=== PATIENT | male | born 1950 | race Caucasian/White ===

== ENCOUNTER 2016-03-21 08:36 | Inpatient (IN) | payer OTHER ==
[~2016-03-21] VITALS: Ht 162.6 cm; Wt 117.9 kg
[~2016-03-21 08:36] MED LIST: BENZ100C PO; FAMO-63 PO; GLUCOPHAGE; LEVO750T31 PO; LISI10TA2 PO; MUPI15CR TP; PROAIR HFA8.5 GM INH
[2016-03-21] MEDS ORDERED: ACETAMINOPHEN 500 MG TABLET PO ONE (08:45)
[2016-03-21] MEDS ORDERED: IPRATRPIUM/ALBUTEROL 0.5/2.5MG 3 ML NEBU. NEB ONE (08:45)
--- NOTE | 2016-03-21 09:04 | RAD ---
Indication cough and shortness of breath. A single view of the chest was obtained. Comparison is made to an examination 10/12/2015. The heart and pulmonary vessels appear normal. There is some volume loss, most compatible with atelectasis, at the left lung base. Significant pleural fluid is not present. There is no pneumothorax. IMPRESSION: No definite acute process. Mild volume loss at the left lung base likely reflecting atelectasis or scar
[2016-03-21 09:43] LABS: BASO % 1 % (0-3); EOS % 0 % (0-3); HEMATOCRIT 39.6 % (39.0-53.0); HEMOGLOBIN 13.6 g/dL (13.0-17.5); LYMPH # 0.9 x10^3/uL (1.0-4.8); LYMPH % 19 % (24-48); MEAN CORPUSCULAR HEMOGLOBIN 33 pg (25-35); MEAN CORPUSCULAR HGB CONC 34 g/dL (31-37); MEAN CORPUSCULAR VOLUME 95 fL (79-100); MONO % 11 % (0-9); NEUT % 69 % (31-73); PLATELET COUNT 194 x10^3/uL (140-400); RED BLOOD COUNT 4.17 x10^6/uL (4.30-5.70); RED CELL DISTRIBUTION WIDTH 13.8 % (11.5-14.5); WHITE BLOOD COUNT 4.8 x10^3/uL (4.0-11.0)
--- NOTE | 2016-03-21 09:52 | PHYS DOC ---
Past Medical History Past Medical History: COPD, CVA, Diabetes-Type II, Hypertension, Other Additional Past Medical Histor: hiatal hernia, left sided weakness post cva, chronic leg pain/edema obesity Past Surgical History: Other Additional Past Surgical Histo: hernia repair, Alcohol Use: None Drug Use: None Adult General Chief Complaint Chief Complaint: FLU SYMPTOM HPI HPI 65-year-old chronically ill male presents with a one-week history of progressive cough congestion shortness of breath. He states his breathing seems to be much worse over the last 24 hours. He has coughed up whitish yellow sputum. He has had some subjective fevers. He denies any hemoptysis. He states he takes his medication when he can. [] Review of Systems Review of Systems Constitutional: Denies fever or chills [] Eyes: Denies change in visual acuity, redness, or eye pain [] HENT: Denies nasal congestion or sore throat [] Respiratory: Per history of present illness [] Cardiovascular: No additional information not addressed in HPI [] GI: Denies abdominal pain, nausea, vomiting, bloody stools or diarrhea [] : Denies dysuria or hematuria [] Musculoskeletal: Denies back pain or joint pain [] Integument: Denies rash or skin lesions [] Neurologic: Denies headache, focal weakness or sensory changes [] Endocrine: Denies polyuria or polydipsia [] Current Medications Current Medications Current Medications Medications (Trade) Dose Ordered Sig/Dru Start Time Stop Time Status Last Admin Dose Admin Acetaminophen 1000 mg 1,000 mg 1X ONCE 03/21/16 08:45 03/21/16 08:46 DC Albuterol/ Ipratropium (Duoneb) 3 ml 1X ONCE 03/21/16 08:45 03/21/16 08:46 DC 03/21/16 08:58 3 ML Sodium Chloride (Iv Sodium Chloride 0.9% 1000ml Bag) 1,000 ml @ 1,000 mls/hr 1X ONCE 03/21/16 10:15 03/21/16 11:14 Allergies Allergies Allergies Coded Allergies Type Severity Reaction Last Updated Verified Penicillins Allergy Intermediate 10/25/14 Yes bacitracin Allergy Intermediate 10/25/14 Yes chlorpheniramine Allergy Intermediate 10/25/14 Yes ciprofloxacin Allergy Intermediate 10/25/14 Yes codeine Allergy Intermediate 10/25/14 Yes dextromethorphan Allergy Intermediate 10/25/14 Yes felodipine Allergy Intermediate 10/25/14 Yes influenza virus vacc,specific Allergy Intermediate 10/25/14 Yes neomycin Allergy Intermediate 10/25/14 Yes phenylephrine Allergy Intermediate 10/25/14 Yes polymyxin B Allergy Intermediate 10/25/14 Yes sulfamethoxazole Allergy Intermediate 10/25/14 Yes trimethoprim Allergy Intermediate 10/25/14 Yes Physical Exam Physical Exam Constitutional: Well developed, well nourished, no acute distress, non-toxic appearance. [] HENT: Normocephalic, atraumatic, bilateral external ears normal, oropharynx moist, no oral exudates, nose normal. [] Eyes: PERRLA, EOMI, conjunctiva normal, no discharge. [] Neck: Normal range of motion, no tenderness, supple, no stridor. [] Cardiovascular:Heart rate regular rhythm, no murmur [] Lungs & Thorax: Bilateral breath sounds clear to auscultation [] Abdomen: Bowel sounds normal, soft, no tenderness, no masses, no pulsatile masses. [] Skin: Warm, dry, no erythema, no rash. [] Back: No tenderness, no CVA tenderness. [] Extremities: No tenderness, no cyanosis, no clubbing, ROM intact, no edema. [] Neurologic: Alert and oriented X 3, normal motor function, normal sensory function, no focal deficits noted. [] Psychologic: Affect normal, judgement normal, mood normal. [] Current Patient Data Vital Signs Vital Signs Date Time Temp Pulse Resp B/P Pulse Ox O2 Delivery O2 Flow Rate FiO2 03/21/16 08:58 92 Room Air 03/21/16 08:40 101.6 120 19 149/81 101.6 Lab Values Laboratory Tests Test 03/21/16 09:15 White Blood Count 4.8x10^3/uL (4.0-11.0) Red Blood Count 4.17x10^6/uL (4.30-5.70) L Hemoglobin 13.6g/dL (13.0-17.5) Hematocrit 39.6% (39.0-53.0) Mean Corpuscular Volume 95fL (79-100) Mean Corpuscular Hemoglobin 33pg (25-35) Mean Corpuscular Hemoglobin Concent 34g/dL (31-37) Red Cell Distribution Width 13.8% (11.5-14.5) Platelet Count 194x10^3/uL (140-400) Neutrophils (%) (Auto) 69% (31-73) Lymphocytes (%) (Auto) 19% (24-48) L Monocytes (%) (Auto) 11% (0-9) H Eosinophils (%) (Auto) 0% (0-3) Basophils (%) (Auto) 1% (0-3) Neutrophils # (Auto) 3.3x10^3uL (1.8-7.7) Lymphocytes # (Auto) 0.9x10^3/uL (1.0-4.8) L Monocytes # (Auto) 0.5x10^3/uL (0.0-1.1) Eosinophils # (Auto) 0.0x10^3/uL (0.0-0.7) Basophils # (Auto) 0.0x10^3/uL (0.0-0.2) Sodium Level 139mmol/L (136-145) Potassium Level 4.1mmol/L (3.5-5.1) Chloride Level 101mmol/L (98-107) Carbon Dioxide Level 27mmol/L (21-32) Anion Gap 11 (6-14) Blood Urea Nitrogen 11mg/dL (8-26) Creatinine 1.0mg/dL (0.7-1.3) Estimated GFR (Cockcroft-Gault) 74.5 Glucose Level 193mg/dL (70-99) H Calcium Level 8.8mg/dL (8.5-10.1) Troponin I Quantitative 0.022ng/mL (0.000-0.055) SZ-Vor-F-Type Natriuretic Peptide 101pg/mL (0-124) Laboratory Tests 03/21/16 09:15 Laboratory Tests 03/21/16 09:15 EKG EKG EKG: Sinus tachycardia rate of [address]-T changes [] Radiology/Procedures Radiology/Procedures [] Impressions: PROCEDURE: CHEST AP ONLY Indication cough and shortness of breath. A single view of the chest was obtained. Comparison is made to an examination 10/12/2015. The heart and pulmonary vessels appear normal. There is some volume loss, most compatible with atelectasis, at the left lung base. Significant pleural fluid is not present. There is no pneumothorax. IMPRESSION: No definite acute process. Mild volume loss at the left lung base likely reflecting atelectasis or scar Course & Med Decision Making Course & Med Decision Making Pertinent Labs and Imaging studies reviewed. (See chart for details) [ED course: Evaluation reveals a an acute on chronically ill male who has coughed nonstop since his arrival to the department. Initially he had some scattered wheezes throughout both lungs he was given a breathing treatment and this did help. He is had a total of 2 L of normal saline as clinically he appeared a bit dehydrated. He was afebrile on arrival. I Townsend in the patient 's best interest to be treated as an inpatient to further assess his breathing as well as his tachycardia. Of note, his troponin was slightly elevated I suspect that this is related mainly to a demand ischemia secondary to his tachycardia. We will trend while in the hospital.] Dragon Disclaimer Dragon Disclaimer This electronic medical record was generated, in whole or in part, using a voice recognition dictation system. Departure Departure Impression: Primary Impression: Bronchitis Additional Impression: Tachycardia Disposition: 09 ADMITTED INPATIENT Admitting Physician: Mark Butterfield Condition: IMPROVED Referrals: NO PCP (PCP) Problem Qualifiers JOÃO ARCE DO Mar 21, 2016 09:52
[2016-03-21 09:53] LABS: CALCIUM 8.8 mg/dL (8.5-10.1); GFR 74.5; POTASSIUM 4.1 mmol/L (3.5-5.1)
[2016-03-21] MEDS ORDERED: IV NORMAL SALINE 1000ML BAG 1,000 ML IV ONE (10:15)
[2016-03-21] MEDS ORDERED: CEFTRIAXONE 1GM IVPB FOR OMNI 50 ML IV ONE (10:30)
[2016-03-21] MEDS ORDERED: ONDANSETRON PF 4 MG/2 ML VIAL. IV PRN ×2 (10:30→14:15)
[2016-03-21] MEDS ORDERED: methylPREDNISolone SOD SUCC PF 125 MG/2 ML VIAL. IV ONE (10:30)
[2016-03-21 11:08] LABS: OBC FLU VALID
--- NOTE | 2016-03-21 11:59 | ACF ---
Admission Forms Criteria TELEMETRY CARE Telemetry Admission Guidelines (Place 'X' for any and all applicable criteria): Admission to telemetry [A] may be indicated for ANY ONE of the following(1)(2)(3 )(4)(5): [X]I. Cardiac disease, including ANY ONE of the following (9)(10)(11)(12)(13 ): [ ]a) Postacute UT [ ]b) Low-risk patients with ST-segment elevation UT who have undergone successful percutaneous coronary intervention [ ]c) Unstable angina [ ]d) Suspected UT (until it is ruled out) [ ]e) Post cardiac surgery (first 48 to 72 hours unless complications occur) [X]f) Acute arrhythmias (including significant tachycardia or bradycardia) [B] [ ]g) Firing of an implantable cardioverter defibrillator [C] [ ]h) Suspected pacemaker or implantable cardioverter defibrillator malfunction (10) [ ]i) New administration or adjustment of an antiarrhythmic drug [D ] [ ]j) Child admitted for acute congestive heart failure [ ]j) Long QT syndrome [ ]k) Advanced heart block (eg, second-degree Mobitz type II, third- degree heart block) [ ]l) Acute myocarditis or pericarditis [ ]m) Short-term (ambulatory or inpatient) monitoring after a cardiac procedure as indicated by ANY ONE of the following [E]: [ ]i) Electrophysiologic studies [ ]ii) Percutaneous coronary intervention with stent placement [ ]iii) Pacemaker placement with cardiac conduction defect [ ]iv) Implantable cardiac defibrillator placement [ ]II. Drug overdose or poisoning with substance that causes arrhythmias or QT prolongation (eg, phenothiazines, sympathomimetic agents, cyclic antidepressants, digitalis, antiarrhythmic drugs)(15) [ ]III. Short-term (ambulatory or inpatient) monitoring after therapeutic or diagnostic procedure requiring conscious sedation or anesthesia (eg, endoscopy, elective cardioversion) [ ]IV. Acute cerebrovascular even[F](18) [ ]V. Massive blood transfusion (eg, at least 10 units of packed red blood cells in 24 hours) [ ]. Variceal bleeding after endoscopy, sclerotherapy, or IV vasopressin [ ]VII. Uncorrected electrolyte abnormalities associated with an increased risk of dangerous arrhythmia [G]; examples include [ ]a) Hyperkalemia with attributable ECG changes [ ]b) Potassium greater than 6.5 mmol/L (mEq/L) in a patient without history of chronic renal disease [ ]c) Prolonged QT attributed to hypokalemia, hypomagnesemia, or hypocalcemia [ ]VIII.Unexplained syncope or other neurologic event suspected of being due to arrhythmia due to a finding that increases risk; examples include(19)(20)(21): [ ]a) High-risk ECG findings (eg, bifascicular block, bradycardia, abnormal QT interval, ventricular pre- excitation) [ ]b) History of previous syncope due to arrhythmia [ ]c) Abnormal ventricular function (eg, reduced ejection fraction ) [ ]d) Exertional or supine syncope [ ]e) Concerning syncope characteristics (eg, sudden loss of consciousness without prodrome) [ ]f) Family history of sudden [ ]g) Use of arrhythmogenic medication [ ]h) Suspected cardiac ischemia [ ]i) Known channelopathy (eg, long QT syndrome, Brugada syndrome, or catecholaminergic paroxysmal ventricular tachycardia) [ ]j) Known structural heart disease (eg, hypertrophic cardiomyopathy , severe valvular disease) [ ]k) Palpitations preceding syncope The original [employer] content created by [employer] has been revised. The portions of the content which have been revised are identified through the use of italic text or in bold, and [employer] has neither reviewed nor approved the modified material. All other unmodified content is copyright [employer]. Please see references footnoted in the original [employer] edition 2016 Admission Criteria Met?: Yes LENO JONES Mar 21, 2016 11:59
--- NOTE | 2016-03-21 12:30 | EKG ---
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
[2016-03-21] MEDS: OSELTAMIVIR 75 MG CAPSULE PO SCH ×2 (12:52→20:21)
[2016-03-21] MEDS: IPRATRPIUM/ALBUTEROL 0.5/2.5MG 3 ML NEBU. NEB SCH ×3 (13:12→20:34)
[2016-03-21] MEDS ORDERED: METF500T4 PO (13:13)
[2016-03-21] MEDS ORDERED: GABA600T2 PO (13:13)
[2016-03-21] MEDS ORDERED: ACETAMINOPHEN 325 MG TABLET. PO PRN (14:15)
[2016-03-21] MEDS ORDERED: hydrALAZINE 20 MG/ML VIAL. IVP PRN (14:15)
--- NOTE | 2016-03-21 14:15 | PDOC1 ---
History and Physical Social History ALCOHOL: none Drugs: None Current Problem List Problem List Problems Medical Problems: (1) Bronchitis Status: Acute (2) COPD exacerbation Status: Acute (3) Tachycardia Status: Acute Current Medications Current Medications Current Medications Medications (Trade) Dose Ordered Sig/Dru Start Time Stop Time Status Last Admin Dose Admin Acetaminophen (Tylenol) 1,000 mg 1X ONCE 03/21/16 08:45 03/21/16 08:46 DC 03/21/16 10:20 1,000 MG Albuterol/ Ipratropium (Duoneb) 3 ml 1X ONCE 03/21/16 08:45 03/21/16 08:46 DC 03/21/16 08:58 3 ML Albuterol/ Ipratropium 3 ml 3 ml RTQID 03/21/16 12:00 03/22/16 11:59 03/21/16 13:12 3 ML Ceftriaxone Sodium (Rocephin 1gm Ivpb For Omni) 50 ml @ 100 mls/hr 1X ONCE 03/21/16 10:30 03/21/16 10:59 DC 03/21/16 12:55 100 MLS/HR Methylprednisolone Sodium Succinate (Solu-Medrol 125mg Vial) 125 mg 1X ONCE 03/21/16 10:30 03/21/16 10:31 DC 03/21/16 12:55 125 MG Ondansetron HCl 4 mg 4 mg PRN Q8HRS PRN 03/21/16 10:30 03/22/16 10:29 Oseltamivir Phosphate (Tamiflu) 75 mg BID 03/21/16 12:00 03/26/16 11:59 03/21/16 12:52 75 MG Sodium Chloride (Iv Sodium Chloride 0.9% 1000ml Bag) 1,000 ml @ 150 mls/hr Q6H40M 03/21/16 10:22 03/22/16 10:21 Allergies Allergies Allergies Coded Allergies Type Severity Reaction Last Updated Verified Penicillins Allergy Intermediate PT DOESN'T REMEMBER 03/21/16 Yes bacitracin Allergy Intermediate 10/25/14 Yes chlorpheniramine Allergy Intermediate 10/25/14 Yes ciprofloxacin Allergy Intermediate 10/25/14 Yes codeine Allergy Intermediate 10/25/14 Yes dextromethorphan Allergy Intermediate 10/25/14 Yes felodipine Allergy Intermediate 10/25/14 Yes influenza virus vaccine, specific Allergy Intermediate 10/25/14 Yes neomycin Allergy Intermediate 10/25/14 Yes phenylephrine Allergy Intermediate 10/25/14 Yes polymyxin B Allergy Intermediate 10/25/14 Yes sulfamethoxazole Allergy Intermediate 10/25/14 Yes trimethoprim Allergy Intermediate 10/25/14 Yes ROS Review of System CONSTITUTIONAL: No fever or chills EYES: No recent changes SKIN: No rash or itching CARDIOVASCULAR: No chest pain, syncope, palpitations, or edema RESPIRATORY: SOB or cough GASTROINTESTINAL: No nausea, vomiting or abdominal pain NEUROLOGICAL: No headaches or weakness ENDOCRINE: No cold or heat intolerance GENITOURINARY: No urgency or frequency of urination MUSCULOSKELETAL: No back pain or joint pain LYMPHATICS: No enlarged lymph nodes PSYCHIATRIC: No anxiety or depression Physical Exam Physical Exam GEN.: No apparent distress. Alert and oriented. OBESE HEENT: Head is normocephalic, atraumatic NECK: Supple. no jvd LUNGS: Clear to auscultation. decreased BS HEART: RRR, S1, S2 present. Peripheral pulses intact ABDOMEN: Soft, nontender. Positive bowel sounds. EXTREMITIES: Without any cyanosis. NEUROLOGIC: Normal speech, normal tone PSYCHIATRIC: Normal affect, normal mood. SKIN: No ulcerations Vitals Vitals Vital Signs Date Time Temp Pulse Resp B/P Pulse Ox O2 Delivery O2 Flow Rate FiO2 03/21/16 13:18 Room Air 03/21/16 13:17 92 03/21/16 11:30 99.8 102 21 119/59 99.8 Labs Labs Laboratory Tests Test 03/21/16 09:15 03/21/16 10:20 White Blood Count 4.8x10^3/uL (4.0-11.0) Red Blood Count 4.17x10^6/uL (4.30-5.70) Hemoglobin 13.6g/dL (13.0-17.5) Hematocrit 39.6% (39.0-53.0) Mean Corpuscular Volume 95fL (79-100) Mean Corpuscular Hemoglobin 33pg (25-35) Mean Corpuscular Hemoglobin Concent 34g/dL (31-37) Red Cell Distribution Width 13.8% (11.5-14.5) Platelet Count 194x10^3/uL (140-400) Neutrophils (%) (Auto) 69% (31-73) Lymphocytes (%) (Auto) 19% (24-48) Monocytes (%) (Auto) 11% (0-9) Eosinophils (%) (Auto) 0% (0-3) Basophils (%) (Auto) 1% (0-3) Neutrophils # (Auto) 3.3x10^3uL (1.8-7.7) Lymphocytes # (Auto) 0.9x10^3/uL (1.0-4.8) Monocytes # (Auto) 0.5x10^3/uL (0.0-1.1) Eosinophils # (Auto) 0.0x10^3/uL (0.0-0.7) Basophils # (Auto) 0.0x10^3/uL (0.0-0.2) Sodium Level 139mmol/L (136-145) Potassium Level 4.1mmol/L (3.5-5.1) Chloride Level 101mmol/L (98-107) Carbon Dioxide Level 27mmol/L (21-32) Anion Gap 11 (6-14) Blood Urea Nitrogen 11mg/dL (8-26) Creatinine 1.0mg/dL (0.7-1.3) Estimated GFR (Cockcroft-Gault) 74.5 Glucose Level 193mg/dL (70-99) Calcium Level 8.8mg/dL (8.5-10.1) Troponin I Quantitative 0.022ng/mL (0.000-0.055) DW-Qmq-[id number]-Type Natriuretic Peptide 101pg/mL (0-124) Influenza Type A Antigen Positive (NEGATIVE) Influenza Type B Antigen Negative (NEGATIVE) Laboratory Tests Test 03/21/16 09:15 03/21/16 10:20 White Blood Count 4.8x10^3/uL (4.0-11.0) Red Blood Count 4.17x10^6/uL (4.30-5.70) Hemoglobin 13.6g/dL (13.0-17.5) Hematocrit 39.6% (39.0-53.0) Mean Corpuscular Volume 95fL (79-100) Mean Corpuscular Hemoglobin 33pg (25-35) Mean Corpuscular Hemoglobin Concent 34g/dL (31-37) Red Cell Distribution Width 13.8% (11.5-14.5) Platelet Count 194x10^3/uL (140-400) Neutrophils (%) (Auto) 69% (31-73) Lymphocytes (%) (Auto) 19% (24-48) Monocytes (%) (Auto) 11% (0-9) Eosinophils (%) (Auto) 0% (0-3) Basophils (%) (Auto) 1% (0-3) Neutrophils # (Auto) 3.3x10^3uL (1.8-7.7) Lymphocytes # (Auto) 0.9x10^3/uL (1.0-4.8) Monocytes # (Auto) 0.5x10^3/uL (0.0-1.1) Eosinophils # (Auto) 0.0x10^3/uL (0.0-0.7) Basophils # (Auto) 0.0x10^3/uL (0.0-0.2) Sodium Level 139mmol/L (136-145) Potassium Level 4.1mmol/L (3.5-5.1) Chloride Level 101mmol/L (98-107) Carbon Dioxide Level 27mmol/L (21-32) Anion Gap 11 (6-14) Blood Urea Nitrogen 11mg/dL (8-26) Creatinine 1.0mg/dL (0.7-1.3) Estimated GFR (Cockcroft-Gault) 74.5 Glucose Level 193mg/dL (70-99) Calcium Level 8.8mg/dL (8.5-10.1) Troponin I Quantitative 0.022ng/mL (0.000-0.055) JM-Zuw-F-Type Natriuretic Peptide 101pg/mL (0-124) Influenza Type A Antigen Positive (NEGATIVE) Influenza Type B Antigen Negative (NEGATIVE) VTE Prophylaxis Ordered VTE Prophylaxis Devices: Yes VTE Pharmacological Prophylaxi: Yes MAIRLOU PINEDO MD Mar 21, 2016 14:15
[2016-03-21] MEDS ORDERED: NON FORMULARY ITEM (Albuterol Sulfate (Proair Hfa Inhaler) 1 PUFF) INH PRN (14:45)
--- NOTE | 2016-03-21 14:58 | PDOC ---
Provider Note Provider Note dictated CLINTON PALAFOX MD Mar 21, 2016 14:58
[2016-03-21 15:00] VITALS: BP 161/87
[2016-03-21] MEDS ORDERED: LEVOFLOXACIN 750 MG TABLET. PO SCH (15:00)
--- NOTE | 2016-03-21 15:13 | CONS ---
DATE OF CONSULTATION: ATTENDING PHYSICIAN: Dr. Butterfield. REASON FOR CONSULTATION: Influenza. HISTORY OF PRESENT ILLNESS: The patient is a 65-year-old male who has a history of COPD, but he denies history of tobacco use and history of CVA, type 2 diabetes. He presented to the hospital with 1 week history of cough and chest congestion. The patient was having some white to yellow sputum production and had some subjective fever. He normally uses oxygen on 24-hour basis. He also says he has sleep apnea for which he uses CPAP. The patient was seen in the Emergency Room, chest x-ray was reviewed by me and did not see any definite consolidation may be a parenchymal scarring in the left lower lobe. He was positive for influenza A. PAST MEDICAL HISTORY: Significant for history of COPD, CVA, type 2 diabetes, hypertension, hiatal hernia, left-sided weakness post CVA, history of chronic leg edema, obesity and DAVID. PAST SURGICAL HISTORY: No recent surgeries except hernia repair in the past. ALLERGIES: ALL REVIEWED LISTED IN THE MRAD. MEDICATIONS: All reviewed as well including antibiotics, Rocephin and Levaquin. REVIEW OF SYSTEMS: A 10-point system obtained. Pertinent positives discussed in my history of present illness, otherwise noncontributory. All systems that were negative were reviewed as well. SOCIAL HISTORY: Denies history of tobacco use. PHYSICAL EXAMINATION: GENERAL: He is in no obvious respiratory distress. T-max of 101.6. Blood pressure 157/82, pulse ox 98% on 2 liters. HEENT: Sclerae nonicteric. NECK: Supple. LUNGS: Diminished breath sounds with few rhonchi. CARDIOVASCULAR: Regular rate and rhythm. ABDOMEN: Soft, obese. EXTREMITIES: With trace pitting edema. LABORATORY DATA: Reviewed. BUN and creatinine 11 and 1.0. White cell count 4.8, hemoglobin is 13.6. IMPRESSION: 1. Influenza. 2. High-grade fever secondary to influenza A. 3. History of morbid obesity and obstructive sleep apnea, uses home CPAP. 4. History of chronic respiratory failure secondary to suspected obesity hypoventilation syndrome. RECOMMENDATIONS: 1. Antibiotics can be deescalated soon. 2. Continue Tamiflu. 3. Monitor for fevers. 4. Bronchodilators. 5. Home CPAP. 6. Continue oxygen at 2 liters which he normally uses at home. Discussed with RN. CLINTON PALAFOX MD DR: TRISTAN/dilia JOB#: [id number] / [id number] ZAYRA
[2016-03-21] MEDS: LISINOPRIL 10 MG TABLET PO SCH (15:34)
[2016-03-21] MEDS: AZITHROMYCIN 250 MG TABLET PO SCH (15:34)
[2016-03-21] MEDS ORDERED: METFORMIN 500 MG TABLET. PO SCH (17:00)
[2016-03-21] MEDS: IV NORMAL SALINE 1000ML BAG 1,000 ML IV SCH ×4 (17:02→23:42)
[2016-03-21 19:00] VITALS: BP 146/78
[2016-03-21] MEDS: FAMOTIDINE 20 MG TABLET. PO SCH (20:21)
[2016-03-21] MEDS ORDERED: DEXTROSE 50% 25 GM / 50ML DISP.SYRIN. IV PRN (22:00)
[2016-03-21] MEDS ORDERED: INSULIN ASPART 300 UNITS/3 ML INSULN.PEN SQ ONE (22:15)
[2016-03-21 23:00] VITALS: BP 136/75
--- NOTE | 2016-03-22 02:38 | HP ---
ADMIT DATE: 03/21/2016 CHIEF COMPLAINT: Cough and short of breath. HISTORY OF PRESENT ILLNESS: A 65-year-old male patient with several comorbid conditions such as COPD, chronic respiratory failure, presented to the ER with complaints of few days of cough and chest congestion, probably 5-7 days. He denies any recorded fever. He usually uses oxygen at nighttime and also using CPAP machine. Most of the history obtained from the ER notes and RN. The patient is not able to provide me good history. He denies any fever, chills, nausea, vomiting, or syncope. PAST MEDICAL HISTORY: COPD, CVA, sleep apnea, left-sided weakness due to CVA, chronic leg edema, obesity, obstructive sleep apnea, hiatal hernia. PAST SURGICAL HISTORY: Hernias in the past. ALLERGIES: PENICILLIN, BACITRACIN, ___, CIPROFLOXACIN, CODEINE, DEXTROMETHORPHAN INFLUENZA VIRUS VACCINE. REVIEW OF SYSTEMS AND PHYSICAL EXAMINATION: Please see my electronic H and P. LABORATORY FINDINGS: WBC is 4.8, hemoglobin is 13.6, MCV is 95, platelets 194. Chemistry: Sodium 139, potassium 4.1, carbon dioxide 27, creatinine 1.0. Troponin is 0.22, serology influenza A is positive, influenza B is negative. IMAGING STUDIES: Chest x-ray: No definite acute process seen. PERSONAL HISTORY: No smoking, no alcohol, no drug abuse. FAMILY HISTORY: The patient is not able to provide me any history. I tried asking. ASSESSMENT AND PLAN: 1. Acute respiratory distress on chronic respiratory failure. 2. Influenza A. 3. Morbid obesity. 4. Sleep apnea. 5. Diabetes mellitus. 6. Hypertension. 7. He was already started on Tamiflu and will continue Tamiflu. 8. Periodic nebulizations. 9. Pulmonology has been consulted. 10. DuoNebs q. 6 hours. 11. Home medications reviewed, reconciled. Continue lisinopril and metformin. 12. For now, we will continue supplemental oxygen as needed; however, the patient takes 2 liters of oxygen at home. 13. Continue Rocephin and Zithromax for now. 14. Physical therapy and occupational therapy. 15. Deep venous thrombosis prophylaxis. MARILOU PINEDO MD DR: JEANNIE/dilia JOB#: [id number] / [id number] ZAYRA
[2016-03-22 03:00] VITALS: BP 142/95
[2016-03-22] MEDS: IV NORMAL SALINE 1000ML BAG 1,000 ML IV SCH ×2 (03:50→17:10)
[2016-03-22 07:01] LABS: BASO # 0.1 x10^3/uL (0.0-0.2); BASO % 1 % (0-3); EOS % 1 % (0-3); HEMATOCRIT 32.7 % (39.0-53.0); HEMOGLOBIN 10.6 g/dL (13.0-17.5); LYMPH # 1.4 x10^3/uL (1.0-4.8); LYMPH % 20 % (24-48); MEAN CORPUSCULAR HEMOGLOBIN 31 pg (25-35); MEAN CORPUSCULAR HGB CONC 32 g/dL (31-37); MEAN CORPUSCULAR VOLUME 95 fL (79-100); MONO % 7 % (0-9); NEUT % 72 % (31-73); PLATELET COUNT 296 x10^3/uL (140-400); RED BLOOD COUNT 3.45 x10^6/uL (4.30-5.70); RED CELL DISTRIBUTION WIDTH 14.4 % (11.5-14.5); WHITE BLOOD COUNT 7.2 x10^3/uL (4.0-11.0)
[2016-03-22 07:09] LABS: CALCIUM 8.8 mg/dL (8.5-10.1); GFR 74.5; POTASSIUM 3.9 mmol/L (3.5-5.1)
[2016-03-22 07:15] VITALS: BP 127/70
[2016-03-22] MEDS: IPRATRPIUM/ALBUTEROL 0.5/2.5MG 3 ML NEBU. NEB SCH (07:26)
[2016-03-22] MEDS: GABAPENTIN 300 MG CAPSULE. PO SCH (08:15)
[2016-03-22] MEDS: OSELTAMIVIR 75 MG CAPSULE PO SCH ×2 (08:15→21:02)
[2016-03-22] MEDS: AZITHROMYCIN 250 MG TABLET PO SCH (08:15)
[2016-03-22] MEDS: FAMOTIDINE 20 MG TABLET. PO SCH ×2 (08:15→21:02)
[2016-03-22] MEDS: LISINOPRIL 10 MG TABLET PO SCH (08:16)
[2016-03-22] MEDS: INSULIN ASPART 300 UNITS/3 ML INSULN.PEN SQ SCH ×3 (08:25→17:00)
[2016-03-22] MEDS ORDERED: CEFTRIAXONE SODIUM 1 GM in IV NORMAL SALINE 50ML 50 ML IV SCH (09:00)
[2016-03-22] MEDS ORDERED: GUAIFENESIN DM 200MG/20MG 10 ML SYRUP. PO PRN (10:00)
--- NOTE | 2016-03-22 10:03 | PDOC ---
PROGRESS NOTES Chief Complaint Chief Complaint Influenza. A sepsis, Viral cough, dyspnea, pain morbid obesity, BMI 45 COPD, w/ acute bronchitis and hypoxia, restrictive lung disease due to habitus History of Present Illness History of Present Illness feels weak, myalgic, Vitals Vitals Vital Signs Date Time Temp Pulse Resp B/P Pulse Ox O2 Delivery O2 Flow Rate FiO2 03/22/16 08:16 95 127/70 03/22/16 07:27 98 Nasal Cannula 2.0 03/22/16 07:15 96.2 20 96.2 Physical Exam General: Alert, Oriented X3, Cooperative, moderate distress Heart: Regular rate, No murmurs Lungs: Clear Abdomen: Normal bowel sounds, No tenderness, No hepatosplenomegaly Extremities: No clubbing, No cyanosis, No edema Skin: No rashes, No significant lesion Labs LABS Laboratory Tests Test 03/21/16 10:20 03/21/16 16:24 03/21/16 16:50 03/21/16 21:05 Influenza Type A Antigen Positive (NEGATIVE) Influenza Type B Antigen Negative (NEGATIVE) Glucose (Fingerstick) 274mg/dL (70-99) 371mg/dL (70-99) Troponin I Quantitative 0.028ng/mL (0.000-0.055) Test 03/21/16 22:22 03/22/16 01:45 03/22/16 07:50 Troponin I Quantitative 0.028ng/mL (0.000-0.055) White Blood Count 7.2x10^3/uL (4.0-11.0) Red Blood Count 3.45x10^6/uL (4.30-5.70) Hemoglobin 10.6g/dL (13.0-17.5) Hematocrit 32.7% (39.0-53.0) Mean Corpuscular Volume 95fL (79-100) Mean Corpuscular Hemoglobin 31pg (25-35) Mean Corpuscular Hemoglobin Concent 32g/dL (31-37) Red Cell Distribution Width 14.4% (11.5-14.5) Platelet Count 296x10^3/uL (140-400) Neutrophils (%) (Auto) 72% (31-73) Lymphocytes (%) (Auto) 20% (24-48) Monocytes (%) (Auto) 7% (0-9) Eosinophils (%) (Auto) 1% (0-3) Basophils (%) (Auto) 1% (0-3) Neutrophils # (Auto) 5.1x10^3uL (1.8-7.7) Lymphocytes # (Auto) 1.4x10^3/uL (1.0-4.8) Monocytes # (Auto) 0.5x10^3/uL (0.0-1.1) Eosinophils # (Auto) 0.1x10^3/uL (0.0-0.7) Basophils # (Auto) 0.1x10^3/uL (0.0-0.2) Sodium Level 138mmol/L (136-145) Potassium Level 3.9mmol/L (3.5-5.1) Chloride Level 103mmol/L (98-107) Carbon Dioxide Level 23mmol/L (21-32) Anion Gap 12 (6-14) Blood Urea Nitrogen 15mg/dL (8-26) Creatinine 1.0mg/dL (0.7-1.3) Estimated GFR (Cockcroft-Gault) 74.5 Glucose Level 305mg/dL (70-99) Calcium Level 8.8mg/dL (8.5-10.1) Glucose (Fingerstick) 198mg/dL (70-99) Review of Systems Review of Systems cough, dyspnea back pain, throat pain myalgia Assessment and Plan Assessmemt and Plan Problems Medical Problems: (1) Bronchitis Status: Acute (2) COPD exacerbation Status: Acute (3) Tachycardia Status: Acute Problems: Comment Review of Relevant I have reviewed the following items denise (where applicable) has been applied. Labs Laboratory Tests Test 03/21/16 09:15 03/21/16 10:20 03/21/16 16:24 03/21/16 16:50 White Blood Count 4.8x10^3/uL (4.0-11.0) Red Blood Count 4.17x10^6/uL (4.30-5.70) Hemoglobin 13.6g/dL (13.0-17.5) Hematocrit 39.6% (39.0-53.0) Mean Corpuscular Volume 95fL (79-100) Mean Corpuscular Hemoglobin 33pg (25-35) Mean Corpuscular Hemoglobin Concent 34g/dL (31-37) Red Cell Distribution Width 13.8% (11.5-14.5) Platelet Count 194x10^3/uL (140-400) Neutrophils (%) (Auto) 69% (31-73) Lymphocytes (%) (Auto) 19% (24-48) Monocytes (%) (Auto) 11% (0-9) Eosinophils (%) (Auto) 0% (0-3) Basophils (%) (Auto) 1% (0-3) Neutrophils # (Auto) 3.3x10^3uL (1.8-7.7) Lymphocytes # (Auto) 0.9x10^3/uL (1.0-4.8) Monocytes # (Auto) 0.5x10^3/uL (0.0-1.1) Eosinophils # (Auto) 0.0x10^3/uL (0.0-0.7) Basophils # (Auto) 0.0x10^3/uL (0.0-0.2) Sodium Level 139mmol/L (136-145) Potassium Level 4.1mmol/L (3.5-5.1) Chloride Level 101mmol/L (98-107) Carbon Dioxide Level 27mmol/L (21-32) Anion Gap 11 (6-14) Blood Urea Nitrogen 11mg/dL (8-26) Creatinine 1.0mg/dL (0.7-1.3) Estimated GFR (Cockcroft-Gault) 74.5 Glucose Level 193mg/dL (70-99) Calcium Level 8.8mg/dL (8.5-10.1) Troponin I Quantitative 0.022ng/mL (0.000-0.055) 0.028ng/mL (0.000-0.055) HH-Pyv-M-Type Natriuretic Peptide 101pg/mL (0-124) Influenza Type A Antigen Positive (NEGATIVE) Influenza Type B Antigen Negative (NEGATIVE) Glucose (Fingerstick) 274mg/dL (70-99) Test 03/21/16 21:05 03/21/16 22:22 03/22/16 01:45 03/22/16 07:50 Glucose (Fingerstick) 371mg/dL (70-99) 198mg/dL (70-99) Troponin I Quantitative 0.028ng/mL (0.000-0.055) White Blood Count 7.2x10^3/uL (4.0-11.0) Red Blood Count 3.45x10^6/uL (4.30-5.70) Hemoglobin 10.6g/dL (13.0-17.5) Hematocrit 32.7% (39.0-53.0) Mean Corpuscular Volume 95fL (79-100) Mean Corpuscular Hemoglobin 31pg (25-35) Mean Corpuscular Hemoglobin Concent 32g/dL (31-37) Red Cell Distribution Width 14.4% (11.5-14.5) Platelet Count 296x10^3/uL (140-400) Neutrophils (%) (Auto) 72% (31-73) Lymphocytes (%) (Auto) 20% (24-48) Monocytes (%) (Auto) 7% (0-9) Eosinophils (%) (Auto) 1% (0-3) Basophils (%) (Auto) 1% (0-3) Neutrophils # (Auto) 5.1x10^3uL (1.8-7.7) Lymphocytes # (Auto) 1.4x10^3/uL (1.0-4.8) Monocytes # (Auto) 0.5x10^3/uL (0.0-1.1) Eosinophils # (Auto) 0.1x10^3/uL (0.0-0.7) Basophils # (Auto) 0.1x10^3/uL (0.0-0.2) Sodium Level 138mmol/L (136-145) Potassium Level 3.9mmol/L (3.5-5.1) Chloride Level 103mmol/L (98-107) Carbon Dioxide Level 23mmol/L (21-32) Anion Gap 12 (6-14) Blood Urea Nitrogen 15mg/dL (8-26) Creatinine 1.0mg/dL (0.7-1.3) Estimated GFR (Cockcroft-Gault) 74.5 Glucose Level 305mg/dL (70-99) Calcium Level 8.8mg/dL (8.5-10.1) Laboratory Tests Test 03/21/16 10:20 03/21/16 16:24 03/21/16 16:50 03/21/16 21:05 Influenza Type A Antigen Positive (NEGATIVE) Influenza Type B Antigen Negative (NEGATIVE) Glucose (Fingerstick) 274mg/dL (70-99) 371mg/dL (70-99) Troponin I Quantitative 0.028ng/mL (0.000-0.055) Test 03/21/16 22:22 03/22/16 01:45 03/22/16 07:50 Troponin I Quantitative 0.028ng/mL (0.000-0.055) White Blood Count 7.2x10^3/uL (4.0-11.0) Red Blood Count 3.45x10^6/uL (4.30-5.70) Hemoglobin 10.6g/dL (13.0-17.5) Hematocrit 32.7% (39.0-53.0) Mean Corpuscular Volume 95fL (79-100) Mean Corpuscular Hemoglobin 31pg (25-35) Mean Corpuscular Hemoglobin Concent 32g/dL (31-37) Red Cell Distribution Width 14.4% (11.5-14.5) Platelet Count 296x10^3/uL (140-400) Neutrophils (%) (Auto) 72% (31-73) Lymphocytes (%) (Auto) 20% (24-48) Monocytes (%) (Auto) 7% (0-9) Eosinophils (%) (Auto) 1% (0-3) Basophils (%) (Auto) 1% (0-3) Neutrophils # (Auto) 5.1x10^3uL (1.8-7.7) Lymphocytes # (Auto) 1.4x10^3/uL (1.0-4.8) Monocytes # (Auto) 0.5x10^3/uL (0.0-1.1) Eosinophils # (Auto) 0.1x10^3/uL (0.0-0.7) Basophils # (Auto) 0.1x10^3/uL (0.0-0.2) Sodium Level 138mmol/L (136-145) Potassium Level 3.9mmol/L (3.5-5.1) Chloride Level 103mmol/L (98-107) Carbon Dioxide Level 23mmol/L (21-32) Anion Gap 12 (6-14) Blood Urea Nitrogen 15mg/dL (8-26) Creatinine 1.0mg/dL (0.7-1.3) Estimated GFR (Cockcroft-Gault) 74.5 Glucose Level 305mg/dL (70-99) Calcium Level 8.8mg/dL (8.5-10.1) Glucose (Fingerstick) 198mg/dL (70-99) Medications Current Medications Albuterol/ Ipratropium (Duoneb) 3 ml 1X ONCE NEB Last administered on 08:58; Start 03/21/16 at 08:45; Stop 03/21/16 at 08:46; Status DC Acetaminophen 1000 mg 1,000 mg 1X ONCE PO Last administered on 03/21/16 10:20 ; Start 03/21/16 at 08:45; Stop 03/21/16 at 08:46; Status DC Sodium Chloride (Iv Sodium Chloride 0.9% 1000ml Bag) 1,000 ml @ 1,000 mls/hr 1X ONCE IV Last administered on 03/21/16 10:22; Start 03/21/16 at 10:15; Stop 03/21/16 at 11:14; Status DC Ondansetron HCl 4 mg 4 mg PRN Q8HRS PRN IV NAUSEA/VOMITING; Start 03/21/16 at 10 :30; Stop 03/21/16 at 15:58; Status DC Sodium Chloride (Iv Sodium Chloride 0.9% 1000ml Bag) 1,000 ml @ 150 mls/hr Q6H40M IV Last administered on 03/21/16 23:42; Start 03/21/16 at 10:22; Stop 11/26 at 02:36; Status DC Albuterol/ Ipratropium 3 ml 3 ml RTQID NEB Last administered on 03/22/16 07:26 ; Start 03/21/16 at 12:00; Stop 03/22/16 at 11:59 Ceftriaxone Sodium (Rocephin 1gm Ivpb For Omni) 50 ml @ 100 mls/hr 1X ONCE IV Last administered on 03/21/16 12:55; Start 03/21/16 at 10:30; Stop 03/21/16 at 10:59; Status DC Methylprednisolone Sodium Succinate (Solu-Medrol 125mg Vial) 125 mg 1X ONCE IV Last administered on 03/21/16 12:55; Start 03/21/16 at 10:30; Stop 03/21/16 at 10:31; Status DC Oseltamivir Phosphate (Tamiflu) 75 mg BID PO Last administered on 03/22/16 08: 15; Start 03/21/16 at 12:00; Stop 03/26/16 at 11:59 Acetaminophen (Tylenol) 325 mg PRN Q6HRS PRN PO MILD PAIN / TEMP; Start at 14:15 Hydralazine HCl (Apresoline) 10 mg PRN Q4HRS PRN IVP ELEVATED BP, SEE COMMENTS ; Start 03/21/16 at 14:15 Ondansetron HCl (Zofran) 4 mg PRN Q8HRS PRN IV NAUSEA/VOMITING; Start 03/21/16 at 14:15 Albuterol Sulfate (Ventolin Neb Soln) 2.5 mg PRN Q4HRS PRN NEB SHORTNESS OF BREATH; Start 03/21/16 at 14:15 Azithromycin 250 mg 250 mg DAILY PO Last administered on 03/22/16 08:15; Start 03/21/16 at 15:00; Stop 03/26/16 at 14:59 Ceftriaxone Sodium 1 gm/ Sodium Chloride 50 ml @ 100 mls/hr Q24H IV Last administered on 03/22/16 09:02; Start 03/22/16 at 09:00 Sodium Chloride (Iv Sodium Chloride 0.9% 1000ml Bag) 1,000 ml @ 75 mls/hr [id number] IV Last administered on 03/22/16 03:50; Start 03/21/16 at 14:30 Famotidine (Pepcid) 20 mg BID PO Last administered on 03/22/16 08:15; Start at 21:00 Levofloxacin (Levaquin) 750 mg DAILY PO Last administered on 03/21/16 15:34; Start 03/21/16 at 15:00; Stop 03/21/16 at 16:01; Status DC Lisinopril (Prinivil) 10 mg DAILY PO Last administered on 03/22/16 08:16; Start 03/21/16 at 15:00 Metformin HCl (Glucophage) 500 mg BIDWMEALS PO Last administered on 03/21/16 17 :32; Start 03/21/16 at 17:00; Stop 03/21/16 at 22:04; Status DC Non-Formulary Medication 1 puff PRN Q6HRS PRN INH SHORTNESS OF BREATH; Start at 14:45; Status UNV Gabapentin (Neurontin) 600 mg DAILY08 PO Last administered on 03/22/16 08:15; Start 03/22/16 at 08:00 Insulin Aspart (Novolog) 0-7 UNITS TIDWMEALS SQ Last administered on 03/22/16 08:25; Start 03/22/16 at 08:00 Dextrose 12.5 gm PRN Q15MIN PRN IV SEE COMMENTS; Start 03/21/16 at 22:00 Insulin Aspart (Novolog) 20 units 1X ONCE SQ Last administered on 03/21/16 22: 39; Start 03/21/16 at 22:15; Stop 03/21/16 at 22:16; Status DC Active Scripts Active Proair Hfa Inhaler (Albuterol Sulfate) 8.5 Gm Hfa.aer.ad 1 Puff INH PRN Q6HRS PRN Levaquin (Levofloxacin) 750 Mg Tablet 750 Mg PO DAILY Tessalon Perle (Benzonatate) 100 Mg Capsule 100 Mg PO TID PRN Reported Metformin Hcl 500 Mg Tablet 1 Tab PO BID Gabapentin 600 Mg Tablet 600 Mg PO DAILY08 [Glucophage] Pepcid (Famotidine) 20 Mg Tablet 20 Mg PO BID Lisinopril 10 Mg Tablet 10 Mg PO Vitals/I & O Vital Sign - Last 24 Hours 03/21/16 03/21/16 03/21/16 03/21/16 10:00 10:30 11:00 11:30 Temp 99.8 99.8 Pulse 118 114 109 102 Resp 20 22 21 21 B/P 148/76 125/60 110/59 119/59 Pulse Ox 100 98 91 98 O2 Delivery Room Air Room Air Room Air Room Air 03/21/16 03/21/16 03/21/16 03/21/16 13:17 13:18 15:00 15:26 Temp 97.9 97.9 Pulse 103 Resp 20 B/P 161/87 Pulse Ox 92 94 96 O2 Delivery Room Air Room Air Room Air Nasal Cannula O2 Flow Rate 2.0 2/903/21/16 03/21/16 03/21/16 15:34 19:00 20:00 20:34 Temp 99.9 99.9 Pulse 103 100 Resp 22 B/P 161/87 146/78 Pulse Ox 94 O2 Delivery Room Air Room Air Nasal Cannula O2 Flow Rate 2.0 2.0 03/21/16 03/22/16 03/22/16 03/22/16 23:00 03:00 07:15 07:27 Temp 98.1 97.7 96.2 98.1 97.7 96.2 Pulse 85 88 95 Resp 22 22 20 B/P 136/75 142/95 127/70 Pulse Ox 95 95 94 98 O2 Delivery Room Air Room Air Room Air Nasal Cannula O2 Flow Rate 2.0 03/22/16 08:16 Pulse 95 B/P 127/70 Intake and Output 03/21/16 03/21/16 03/22/16 15:00 23:00 07:00 Intake Total 595 ml 300 ml 500 ml Output Total 500 ml 300 ml 600 ml Balance 95 ml 0 ml -100 ml JOSE R ORDOÑEZ MD Mar 22, 2016 10:03
[2016-03-22 11:17] VITALS: BP 120/75
[2016-03-22] MEDS: ALBUTEROL SULFATE 2.5 MG/3 ML NEBU. NEB PRN (13:28)
[2016-03-22 15:04] VITALS: BP 123/70
[2016-03-22 19:00] VITALS: BP 137/78
[2016-03-22] MEDS: OXYCODONE IR 5 MG TABLET. PO PRN (21:06)
[2016-03-22 23:00] VITALS: BP 108/66
[2016-03-23] MEDS: HYDROCODONE/CHLORPHEN POLIS 5 ML SUS.ER.12H. PO PRN ×2 (00:42→20:20)
[2016-03-23 03:00] VITALS: BP 146/86
[2016-03-23 06:11] LABS: BASO % 0 % (0-3); EOS % 1 % (0-3); HEMATOCRIT 37.3 % (39.0-53.0); HEMOGLOBIN 12.2 g/dL (13.0-17.5); LYMPH # 2.4 x10^3/uL (1.0-4.8); LYMPH % 44 % (24-48); MEAN CORPUSCULAR HEMOGLOBIN 32 pg (25-35); MEAN CORPUSCULAR HGB CONC 33 g/dL (31-37); MEAN CORPUSCULAR VOLUME 98 fL (79-100); MONO % 6 % (0-9); NEUT % 49 % (31-73); PLATELET COUNT 156 x10^3/uL (140-400); RED CELL DISTRIBUTION WIDTH 14.1 % (11.5-14.5); WHITE BLOOD COUNT 5.4 x10^3/uL (4.0-11.0)
[2016-03-23 07:00] VITALS: BP 134/84
[2016-03-23 07:00] LABS: CALCIUM 8.1 mg/dL (8.5-10.1); CREATININE 0.8 mg/dL (0.7-1.3); GFR 96.4; POTASSIUM 3.6 mmol/L (3.5-5.1)
[2016-03-23] MEDS: ALBUTEROL SULFATE 2.5 MG/3 ML NEBU. NEB PRN (07:15)
[2016-03-23] MEDS ORDERED: IPRATRPIUM/ALBUTEROL 0.5/2.5MG 3 ML NEBU. NEB SCH (08:00)
--- NOTE | 2016-03-23 08:30 | PDOC ---
PULMONARY PROGRESS NOTES Subjective has sob, cough, no pain. Vitals Vital Signs Date Time Temp Pulse Resp B/P Pulse Ox O2 Delivery O2 Flow Rate FiO2 03/23/16 07:16 97 Nasal Cannula 2.0 03/23/16 03:00 98.0 76 20 146/86 98.0 Comments ros as mentioned as above other sys otherwise neg General: Alert, Oriented X4 HEENT: Other (nc at perrrl) Lungs: Wheezing Cardiovascular: S1, S2 Abdomen: Soft, Non-tender Neuro Exam: Alert, Oriented Extremities: Other (edema) Skin: Warm Labs Laboratory Tests Test 03/21/16 09:15 03/21/16 10:20 03/21/16 16:24 03/21/16 16:50 White Blood Count 4.8x10^3/uL (4.0-11.0) Red Blood Count 4.17x10^6/uL (4.30-5.70) Hemoglobin 13.6g/dL (13.0-17.5) Hematocrit 39.6% (39.0-53.0) Mean Corpuscular Volume 95fL (79-100) Mean Corpuscular Hemoglobin 33pg (25-35) Mean Corpuscular Hemoglobin Concent 34g/dL (31-37) Red Cell Distribution Width 13.8% (11.5-14.5) Platelet Count 194x10^3/uL (140-400) Neutrophils (%) (Auto) 69% (31-73) Lymphocytes (%) (Auto) 19% (24-48) Monocytes (%) (Auto) 11% (0-9) Eosinophils (%) (Auto) 0% (0-3) Basophils (%) (Auto) 1% (0-3) Neutrophils # (Auto) 3.3x10^3uL (1.8-7.7) Lymphocytes # (Auto) 0.9x10^3/uL (1.0-4.8) Monocytes # (Auto) 0.5x10^3/uL (0.0-1.1) Eosinophils # (Auto) 0.0x10^3/uL (0.0-0.7) Basophils # (Auto) 0.0x10^3/uL (0.0-0.2) Sodium Level 139mmol/L (136-145) Potassium Level 4.1mmol/L (3.5-5.1) Chloride Level 101mmol/L (98-107) Carbon Dioxide Level 27mmol/L (21-32) Anion Gap 11 (6-14) Blood Urea Nitrogen 11mg/dL (8-26) Creatinine 1.0mg/dL (0.7-1.3) Estimated GFR (Cockcroft-Gault) 74.5 Glucose Level 193mg/dL (70-99) Calcium Level 8.8mg/dL (8.5-10.1) Troponin I Quantitative 0.022ng/mL (0.000-0.055) 0.028ng/mL (0.000-0.055) DO-Urx-F-Type Natriuretic Peptide 101pg/mL (0-124) Influenza Type A Antigen Positive (NEGATIVE) Influenza Type B Antigen Negative (NEGATIVE) Glucose (Fingerstick) 274mg/dL (70-99) Test 03/21/16 21:05 03/21/16 22:22 03/22/16 01:45 03/22/16 07:50 Glucose (Fingerstick) 371mg/dL (70-99) 198mg/dL (70-99) Troponin I Quantitative 0.028ng/mL (0.000-0.055) White Blood Count 7.2x10^3/uL (4.0-11.0) Red Blood Count 3.45x10^6/uL (4.30-5.70) Hemoglobin 10.6g/dL (13.0-17.5) Hematocrit 32.7% (39.0-53.0) Mean Corpuscular Volume 95fL (79-100) Mean Corpuscular Hemoglobin 31pg (25-35) Mean Corpuscular Hemoglobin Concent 32g/dL (31-37) Red Cell Distribution Width 14.4% (11.5-14.5) Platelet Count 296x10^3/uL (140-400) Neutrophils (%) (Auto) 72% (31-73) Lymphocytes (%) (Auto) 20% (24-48) Monocytes (%) (Auto) 7% (0-9) Eosinophils (%) (Auto) 1% (0-3) Basophils (%) (Auto) 1% (0-3) Neutrophils # (Auto) 5.1x10^3uL (1.8-7.7) Lymphocytes # (Auto) 1.4x10^3/uL (1.0-4.8) Monocytes # (Auto) 0.5x10^3/uL (0.0-1.1) Eosinophils # (Auto) 0.1x10^3/uL (0.0-0.7) Basophils # (Auto) 0.1x10^3/uL (0.0-0.2) Sodium Level 138mmol/L (136-145) Potassium Level 3.9mmol/L (3.5-5.1) Chloride Level 103mmol/L (98-107) Carbon Dioxide Level 23mmol/L (21-32) Anion Gap 12 (6-14) Blood Urea Nitrogen 15mg/dL (8-26) Creatinine 1.0mg/dL (0.7-1.3) Estimated GFR (Cockcroft-Gault) 74.5 Glucose Level 305mg/dL (70-99) Calcium Level 8.8mg/dL (8.5-10.1) Test 03/22/16 11:40 03/22/16 16:47 03/22/16 21:04 03/23/16 05:00 Glucose (Fingerstick) 224mg/dL (70-99) 150mg/dL (70-99) 256mg/dL (70-99) White Blood Count 5.4x10^3/uL (4.0-11.0) Red Blood Count 3.80x10^6/uL (4.30-5.70) Hemoglobin 12.2g/dL (13.0-17.5) Hematocrit 37.3% (39.0-53.0) Mean Corpuscular Volume 98fL (79-100) Mean Corpuscular Hemoglobin 32pg (25-35) Mean Corpuscular Hemoglobin Concent 33g/dL (31-37) Red Cell Distribution Width 14.1% (11.5-14.5) Platelet Count 156x10^3/uL (140-400) Neutrophils (%) (Auto) 49% (31-73) Lymphocytes (%) (Auto) 44% (24-48) Monocytes (%) (Auto) 6% (0-9) Eosinophils (%) (Auto) 1% (0-3) Basophils (%) (Auto) 0% (0-3) Neutrophils # (Auto) 2.7x10^3uL (1.8-7.7) Lymphocytes # (Auto) 2.4x10^3/uL (1.0-4.8) Monocytes # (Auto) 0.3x10^3/uL (0.0-1.1) Eosinophils # (Auto) 0.0x10^3/uL (0.0-0.7) Basophils # (Auto) 0.0x10^3/uL (0.0-0.2) Sodium Level 143mmol/L (136-145) Potassium Level 3.6mmol/L (3.5-5.1) Chloride Level 107mmol/L (98-107) Carbon Dioxide Level 31mmol/L (21-32) Anion Gap 5 (6-14) Blood Urea Nitrogen 15mg/dL (8-26) Creatinine 0.8mg/dL (0.7-1.3) Estimated GFR (Cockcroft-Gault) 96.4 Glucose Level 136mg/dL (70-99) Calcium Level 8.1mg/dL (8.5-10.1) Test 03/23/16 08:10 Glucose (Fingerstick) 163mg/dL (70-99) Laboratory Tests Test 03/22/16 11:40 03/22/16 16:47 03/22/16 21:04 03/23/16 05:00 Glucose (Fingerstick) 224mg/dL (70-99) 150mg/dL (70-99) 256mg/dL (70-99) White Blood Count 5.4x10^3/uL (4.0-11.0) Red Blood Count 3.80x10^6/uL (4.30-5.70) Hemoglobin 12.2g/dL (13.0-17.5) Hematocrit 37.3% (39.0-53.0) Mean Corpuscular Volume 98fL (79-100) Mean Corpuscular Hemoglobin 32pg (25-35) Mean Corpuscular Hemoglobin Concent 33g/dL (31-37) Red Cell Distribution Width 14.1% (11.5-14.5) Platelet Count 156x10^3/uL (140-400) Neutrophils (%) (Auto) 49% (31-73) Lymphocytes (%) (Auto) 44% (24-48) Monocytes (%) (Auto) 6% (0-9) Eosinophils (%) (Auto) 1% (0-3) Basophils (%) (Auto) 0% (0-3) Neutrophils # (Auto) 2.7x10^3uL (1.8-7.7) Lymphocytes # (Auto) 2.4x10^3/uL (1.0-4.8) Monocytes # (Auto) 0.3x10^3/uL (0.0-1.1) Eosinophils # (Auto) 0.0x10^3/uL (0.0-0.7) Basophils # (Auto) 0.0x10^3/uL (0.0-0.2) Sodium Level 143mmol/L (136-145) Potassium Level 3.6mmol/L (3.5-5.1) Chloride Level 107mmol/L (98-107) Carbon Dioxide Level 31mmol/L (21-32) Anion Gap 5 (6-14) Blood Urea Nitrogen 15mg/dL (8-26) Creatinine 0.8mg/dL (0.7-1.3) Estimated GFR (Cockcroft-Gault) 96.4 Glucose Level 136mg/dL (70-99) Calcium Level 8.1mg/dL (8.5-10.1) Test 03/23/16 08:10 Glucose (Fingerstick) 163mg/dL (70-99) Medications Active Scripts Medications Dose Route/Sig Days Date Category Metformin Hcl 500 Mg Tablet 1 Tab PO BID 03/21/16 Reported Gabapentin 600 Mg Tablet 600 Mg PO DAILY08 03/21/16 Reported Proair Hfa Inhaler (Albuterol Sulfate) 8.5 Gm Hfa.aer.ad 1 Puff INH PRN Q6HRS PRN 10/12/15 Rx Levaquin (Levofloxacin) 750 Mg Tablet 750 Mg PO DAILY 10/12/15 Rx Tessalon Perle (Benzonatate) 100 Mg Capsule 100 Mg PO TID PRN 10/12/15 Rx [Glucophage] 10/26/14 Reported Pepcid (Famotidine) 20 Mg Tablet 20 Mg PO BID 05/17/13 Reported Lisinopril 10 Mg Tablet 10 Mg PO 05/17/13 Reported Comments cxr reviewed. Impression . IMPRESSION: 1. Influenza. 2. High-grade fever secondary to influenza A. 3. History of morbid obesity and obstructive sleep apnea, uses home CPAP. 4. History of chronic respiratory failure secondary to suspected obesity hypoventilation syndrome. 5. dyspnea, cough 6. obesity, liz 7. wheezing Plan . RECOMMENDATIONS: 1. Antibiotics can be deescalated soon. 2. Continue Tamiflu. 3. Monitor for fevers. 4. Bronchodilators. 5. Home CPAP. 6. Continue oxygen at 2 liters which he normally uses at home. 7. add ics 8. lose wt discussed w pt DESIRE DE LA GARZA MD Mar 23, 2016 08:30
[2016-03-23] MEDS: BUDESONIDE 0.5 MG/2 ML NEBU NEB SCH ×2 (09:00→19:31)
[2016-03-23] MEDS: GABAPENTIN 300 MG CAPSULE. PO SCH (09:07)
[2016-03-23] MEDS: OSELTAMIVIR 75 MG CAPSULE PO SCH ×2 (09:08→20:18)
[2016-03-23] MEDS: FAMOTIDINE 20 MG TABLET. PO SCH ×2 (09:08→20:18)
[2016-03-23] MEDS: AZITHROMYCIN 250 MG TABLET PO SCH (09:08)
[2016-03-23] MEDS: LISINOPRIL 10 MG TABLET PO SCH (09:10)
[2016-03-23] MEDS: INSULIN ASPART 300 UNITS/3 ML INSULN.PEN SQ SCH ×3 (09:54→17:00)
[2016-03-23] MEDS ORDERED: POTASSIUM CHLORIDE 20 MEQ TABLET.ER. PO ONE (10:00)
--- NOTE | 2016-03-23 10:01 | PDOC ---
PROGRESS NOTES Chief Complaint Chief Complaint Influenza. A sepsis, Viral cough, dyspnea, pain morbid obesity, BMI 45 COPD, w/ acute bronchitis and hypoxia, possible restrictive lung disease History of Present Illness History of Present Illness again, feels weak, myalgic, has cough and wheeze, tachypnea Vitals Vitals Vital Signs Date Time Temp Pulse Resp B/P Pulse Ox O2 Delivery O2 Flow Rate FiO2 03/23/16 09:10 82 134/84 03/23/16 07:16 97 Nasal Cannula 2.0 03/23/16 07:00 97.9 24 97.9 Physical Exam General: Alert, Oriented X3, Cooperative, moderate distress Heart: Regular rate, No murmurs Lungs: Clear Abdomen: Normal bowel sounds, No tenderness, No hepatosplenomegaly Extremities: No clubbing, No cyanosis, No edema Skin: No rashes, No significant lesion Labs LABS Laboratory Tests Test 03/22/16 11:40 03/22/16 16:47 03/22/16 21:04 03/23/16 05:00 Glucose (Fingerstick) 224mg/dL (70-99) 150mg/dL (70-99) 256mg/dL (70-99) White Blood Count 5.4x10^3/uL (4.0-11.0) Red Blood Count 3.80x10^6/uL (4.30-5.70) Hemoglobin 12.2g/dL (13.0-17.5) Hematocrit 37.3% (39.0-53.0) Mean Corpuscular Volume 98fL (79-100) Mean Corpuscular Hemoglobin 32pg (25-35) Mean Corpuscular Hemoglobin Concent 33g/dL (31-37) Red Cell Distribution Width 14.1% (11.5-14.5) Platelet Count 156x10^3/uL (140-400) Neutrophils (%) (Auto) 49% (31-73) Lymphocytes (%) (Auto) 44% (24-48) Monocytes (%) (Auto) 6% (0-9) Eosinophils (%) (Auto) 1% (0-3) Basophils (%) (Auto) 0% (0-3) Neutrophils # (Auto) 2.7x10^3uL (1.8-7.7) Lymphocytes # (Auto) 2.4x10^3/uL (1.0-4.8) Monocytes # (Auto) 0.3x10^3/uL (0.0-1.1) Eosinophils # (Auto) 0.0x10^3/uL (0.0-0.7) Basophils # (Auto) 0.0x10^3/uL (0.0-0.2) Sodium Level 143mmol/L (136-145) Potassium Level 3.6mmol/L (3.5-5.1) Chloride Level 107mmol/L (98-107) Carbon Dioxide Level 31mmol/L (21-32) Anion Gap 5 (6-14) Blood Urea Nitrogen 15mg/dL (8-26) Creatinine 0.8mg/dL (0.7-1.3) Estimated GFR (Cockcroft-Gault) 96.4 Glucose Level 136mg/dL (70-99) Calcium Level 8.1mg/dL (8.5-10.1) Test 03/23/16 08:10 Glucose (Fingerstick) 163mg/dL (70-99) Review of Systems Review of Systems nausea weakness cough, dyspnea, lethargy, myalgia Assessment and Plan Assessmemt and Plan not close to DC status increase Nebs to Q4 sched Problems Medical Problems: (1) Bronchitis Status: Acute (2) COPD exacerbation Status: Acute (3) Tachycardia Status: Acute Problems: Comment Review of Relevant I have reviewed the following items denise (where applicable) has been applied. Labs Laboratory Tests Test 03/21/16 10:20 03/21/16 16:24 03/21/16 16:50 03/21/16 21:05 Influenza Type A Antigen Positive (NEGATIVE) Influenza Type B Antigen Negative (NEGATIVE) Glucose (Fingerstick) 274mg/dL (70-99) 371mg/dL (70-99) Troponin I Quantitative 0.028ng/mL (0.000-0.055) Test 03/21/16 22:22 03/22/16 01:45 03/22/16 07:50 03/22/16 11:40 Troponin I Quantitative 0.028ng/mL (0.000-0.055) White Blood Count 7.2x10^3/uL (4.0-11.0) Red Blood Count 3.45x10^6/uL (4.30-5.70) Hemoglobin 10.6g/dL (13.0-17.5) Hematocrit 32.7% (39.0-53.0) Mean Corpuscular Volume 95fL (79-100) Mean Corpuscular Hemoglobin 31pg (25-35) Mean Corpuscular Hemoglobin Concent 32g/dL (31-37) Red Cell Distribution Width 14.4% (11.5-14.5) Platelet Count 296x10^3/uL (140-400) Neutrophils (%) (Auto) 72% (31-73) Lymphocytes (%) (Auto) 20% (24-48) Monocytes (%) (Auto) 7% (0-9) Eosinophils (%) (Auto) 1% (0-3) Basophils (%) (Auto) 1% (0-3) Neutrophils # (Auto) 5.1x10^3uL (1.8-7.7) Lymphocytes # (Auto) 1.4x10^3/uL (1.0-4.8) Monocytes # (Auto) 0.5x10^3/uL (0.0-1.1) Eosinophils # (Auto) 0.1x10^3/uL (0.0-0.7) Basophils # (Auto) 0.1x10^3/uL (0.0-0.2) Sodium Level 138mmol/L (136-145) Potassium Level 3.9mmol/L (3.5-5.1) Chloride Level 103mmol/L (98-107) Carbon Dioxide Level 23mmol/L (21-32) Anion Gap 12 (6-14) Blood Urea Nitrogen 15mg/dL (8-26) Creatinine 1.0mg/dL (0.7-1.3) Estimated GFR (Cockcroft-Gault) 74.5 Glucose Level 305mg/dL (70-99) Calcium Level 8.8mg/dL (8.5-10.1) Glucose (Fingerstick) 198mg/dL (70-99) 224mg/dL (70-99) Test 03/22/16 16:47 03/22/16 21:04 03/23/16 05:00 03/23/16 08:10 Glucose (Fingerstick) 150mg/dL (70-99) 256mg/dL (70-99) 163mg/dL (70-99) White Blood Count 5.4x10^3/uL (4.0-11.0) Red Blood Count 3.80x10^6/uL (4.30-5.70) Hemoglobin 12.2g/dL (13.0-17.5) Hematocrit 37.3% (39.0-53.0) Mean Corpuscular Volume 98fL (79-100) Mean Corpuscular Hemoglobin 32pg (25-35) Mean Corpuscular Hemoglobin Concent 33g/dL (31-37) Red Cell Distribution Width 14.1% (11.5-14.5) Platelet Count 156x10^3/uL (140-400) Neutrophils (%) (Auto) 49% (31-73) Lymphocytes (%) (Auto) 44% (24-48) Monocytes (%) (Auto) 6% (0-9) Eosinophils (%) (Auto) 1% (0-3) Basophils (%) (Auto) 0% (0-3) Neutrophils # (Auto) 2.7x10^3uL (1.8-7.7) Lymphocytes # (Auto) 2.4x10^3/uL (1.0-4.8) Monocytes # (Auto) 0.3x10^3/uL (0.0-1.1) Eosinophils # (Auto) 0.0x10^3/uL (0.0-0.7) Basophils # (Auto) 0.0x10^3/uL (0.0-0.2) Sodium Level 143mmol/L (136-145) Potassium Level 3.6mmol/L (3.5-5.1) Chloride Level 107mmol/L (98-107) Carbon Dioxide Level 31mmol/L (21-32) Anion Gap 5 (6-14) Blood Urea Nitrogen 15mg/dL (8-26) Creatinine 0.8mg/dL (0.7-1.3) Estimated GFR (Cockcroft-Gault) 96.4 Glucose Level 136mg/dL (70-99) Calcium Level 8.1mg/dL (8.5-10.1) Laboratory Tests Test 03/22/16 11:40 03/22/16 16:47 03/22/16 21:04 03/23/16 05:00 Glucose (Fingerstick) 224mg/dL (70-99) 150mg/dL (70-99) 256mg/dL (70-99) White Blood Count 5.4x10^3/uL (4.0-11.0) Red Blood Count 3.80x10^6/uL (4.30-5.70) Hemoglobin 12.2g/dL (13.0-17.5) Hematocrit 37.3% (39.0-53.0) Mean Corpuscular Volume 98fL (79-100) Mean Corpuscular Hemoglobin 32pg (25-35) Mean Corpuscular Hemoglobin Concent 33g/dL (31-37) Red Cell Distribution Width 14.1% (11.5-14.5) Platelet Count 156x10^3/uL (140-400) Neutrophils (%) (Auto) 49% (31-73) Lymphocytes (%) (Auto) 44% (24-48) Monocytes (%) (Auto) 6% (0-9) Eosinophils (%) (Auto) 1% (0-3) Basophils (%) (Auto) 0% (0-3) Neutrophils # (Auto) 2.7x10^3uL (1.8-7.7) Lymphocytes # (Auto) 2.4x10^3/uL (1.0-4.8) Monocytes # (Auto) 0.3x10^3/uL (0.0-1.1) Eosinophils # (Auto) 0.0x10^3/uL (0.0-0.7) Basophils # (Auto) 0.0x10^3/uL (0.0-0.2) Sodium Level 143mmol/L (136-145) Potassium Level 3.6mmol/L (3.5-5.1) Chloride Level 107mmol/L (98-107) Carbon Dioxide Level 31mmol/L (21-32) Anion Gap 5 (6-14) Blood Urea Nitrogen 15mg/dL (8-26) Creatinine 0.8mg/dL (0.7-1.3) Estimated GFR (Cockcroft-Gault) 96.4 Glucose Level 136mg/dL (70-99) Calcium Level 8.1mg/dL (8.5-10.1) Test 03/23/16 08:10 Glucose (Fingerstick) 163mg/dL (70-99) Medications Current Medications Albuterol/ Ipratropium (Duoneb) 3 ml 1X ONCE NEB Last administered on 08:58; Start 03/21/16 at 08:45; Stop 03/21/16 at 08:46; Status DC Acetaminophen 1000 mg 1,000 mg 1X ONCE PO Last administered on 03/21/16 10:20 ; Start 03/21/16 at 08:45; Stop 03/21/16 at 08:46; Status DC Sodium Chloride (Iv Sodium Chloride 0.9% 1000ml Bag) 1,000 ml @ 1,000 mls/hr 1X ONCE IV Last administered on 03/21/16 10:22; Start 03/21/16 at 10:15; Stop 03/21/16 at 11:14; Status DC Ondansetron HCl 4 mg 4 mg PRN Q8HRS PRN IV NAUSEA/VOMITING; Start 03/21/16 at 10 :30; Stop 03/21/16 at 15:58; Status DC Sodium Chloride (Iv Sodium Chloride 0.9% 1000ml Bag) 1,000 ml @ 150 mls/hr Q6H40M IV Last administered on 03/21/16 23:42; Start 03/21/16 at 10:22; Stop 11/26 at 02:36; Status DC Albuterol/ Ipratropium 3 ml 3 ml RTQID NEB Last administered on 03/22/16 07:26 ; Start 03/21/16 at 12:00; Stop 03/22/16 at 11:59; Status DC Ceftriaxone Sodium (Rocephin 1gm Ivpb For Omni) 50 ml @ 100 mls/hr 1X ONCE IV Last administered on 03/21/16 12:55; Start 03/21/16 at 10:30; Stop 03/21/16 at 10:59; Status DC Methylprednisolone Sodium Succinate (Solu-Medrol 125mg Vial) 125 mg 1X ONCE IV Last administered on 03/21/16 12:55; Start 03/21/16 at 10:30; Stop 03/21/16 at 10:31; Status DC Oseltamivir Phosphate (Tamiflu) 75 mg BID PO Last administered on 03/23/16 09: 08; Start 03/21/16 at 12:00; Stop 03/26/16 at 11:59 Acetaminophen (Tylenol) 325 mg PRN Q6HRS PRN PO MILD PAIN / TEMP; Start at 14:15 Hydralazine HCl (Apresoline) 10 mg PRN Q4HRS PRN IVP ELEVATED BP, SEE COMMENTS ; Start 03/21/16 at 14:15 Ondansetron HCl (Zofran) 4 mg PRN Q8HRS PRN IV NAUSEA/VOMITING; Start 03/21/16 at 14:15 Albuterol Sulfate (Ventolin Neb Soln) 2.5 mg PRN Q4HRS PRN NEB SHORTNESS OF BREATH Last administered on 03/23/16 07:15; Start 03/21/16 at 14:15 Azithromycin 250 mg 250 mg DAILY PO Last administered on 03/23/16 09:08; Start 03/21/16 at 15:00; Stop 03/26/16 at 14:59 Ceftriaxone Sodium 1 gm/ Sodium Chloride 50 ml @ 100 mls/hr Q24H IV Last administered on 03/22/16 09:02; Start 03/22/16 at 09:00; Stop 03/22/16 at 14:47 ; Status DC Sodium Chloride (Iv Sodium Chloride 0.9% 1000ml Bag) 1,000 ml @ 75 mls/hr [id number] IV Last administered on 03/23/16 00:00; Start 03/21/16 at 14:30 Famotidine (Pepcid) 20 mg BID PO Last administered on 03/23/16 09:08; Start at 21:00 Levofloxacin (Levaquin) 750 mg DAILY PO Last administered on 03/21/16 15:34; Start 03/21/16 at 15:00; Stop 03/21/16 at 16:01; Status DC Lisinopril (Prinivil) 10 mg DAILY PO Last administered on 03/23/16 09:10; Start 03/21/16 at 15:00 Metformin HCl (Glucophage) 500 mg BIDWMEALS PO Last administered on 03/21/16 17 :32; Start 03/21/16 at 17:00; Stop 03/21/16 at 22:04; Status DC Non-Formulary Medication 1 puff PRN Q6HRS PRN INH SHORTNESS OF BREATH; Start at 14:45; Status UNV Gabapentin (Neurontin) 600 mg DAILY08 PO Last administered on 03/23/16 09:07; Start 03/22/16 at 08:00 Insulin Aspart (Novolog) 0-7 UNITS TIDWMEALS SQ Last administered on 03/23/16 09:54; Start 03/22/16 at 08:00 Dextrose 12.5 gm PRN Q15MIN PRN IV SEE COMMENTS; Start 03/21/16 at 22:00 Insulin Aspart (Novolog) 20 units 1X ONCE SQ Last administered on 03/21/16 22: 39; Start 03/21/16 at 22:15; Stop 03/21/16 at 22:16; Status DC Chlorphenir/ Hydrocodone Polistirex (Tussionex) 5 ml PRN Q12HR PRN PO COUGH Last administered on 03/23/16 00:42; Start 03/22/16 at 10:00 Guaifenesin (Robitussin Dm) 10 ml PRN Q6HRS PRN PO COUGH; Start 03/22/16 at 10: 00; Stop 03/22/16 at 10:12; Status DC Oxycodone HCl (Roxicodone) 5 mg PRN Q6HRS PRN PO PAIN Last administered on 03/22 21:06; Start 03/22/16 at 10:00 Cefpodoxime Proxetil (Vantin) 200 mg BID PO ; Start 03/23/16 at 09:00 Albuterol/ Ipratropium (Duoneb) 3 ml RTQID NEB ; Start 03/23/16 at 08:00 Budesonide (Pulmicort) 0.5 mg RTBID NEB ; Start 03/23/16 at 09:00 Active Scripts Active Proair Hfa Inhaler (Albuterol Sulfate) 8.5 Gm Hfa.aer.ad 1 Puff INH PRN Q6HRS PRN Levaquin (Levofloxacin) 750 Mg Tablet 750 Mg PO DAILY Tessalon Perle (Benzonatate) 100 Mg Capsule 100 Mg PO TID PRN Reported Metformin Hcl 500 Mg Tablet 1 Tab PO BID Gabapentin 600 Mg Tablet 600 Mg PO DAILY08 [Glucophage] Pepcid (Famotidine) 20 Mg Tablet 20 Mg PO BID Lisinopril 10 Mg Tablet 10 Mg PO Vitals/I & O Vital Sign - Last 24 Hours 03/22/16 03/22/16 03/22/16 03/22/16 11:17 13:28 15:04 19:00 Temp 97.1 97.3 97.9 97.1 97.3 97.9 Pulse 86 81 84 Resp 18 20 20 B/P 120/75 123/70 137/78 Pulse Ox 95 98 96 93 O2 Delivery Room Air Nasal Cannula Room Air Room Air O2 Flow Rate 2.0 03/22/16 03/22/16 03/22/16 03/22/16 20:00 21:06 22:42 23:00 Temp 97.9 97.9 Pulse 86 Resp 20 B/P 108/66 Pulse Ox 93 93 95 O2 Delivery Nasal Cannula Nasal Cannula Nasal Cannula Room Air O2 Flow Rate 2.0 2.0 2.0 03/23/16 03/23/16 03/23/16 03/23/16 00:42 01:45 03:00 07:00 Temp 98.0 97.9 98.0 97.9 Pulse 76 83 Resp 18 24 B/P 146/86 134/84 Pulse Ox 95 98 94 O2 Delivery Nasal Cannula Nasal Cannula Room Air Nasal Cannula O2 Flow Rate 2.0 2.0 2.0 03/23/16 03/23/16 07:16 09:10 Pulse 82 B/P 134/84 Pulse Ox 97 O2 Delivery Nasal Cannula O2 Flow Rate 2.0 Intake and Output 03/22/16 03/22/16 03/23/16 15:00 23:00 07:00 Intake Total 640 ml 0 ml Output Total 1300 ml Balance 640 ml 0 ml -1300 ml JOSE R ORDOÑEZ MD Mar 23, 2016 10:01
[2016-03-23] MEDS ORDERED: ALBUTEROL SULFATE 2.5 MG/3 ML NEBU. NEB PRN (10:15)
[2016-03-23 11:00] VITALS: BP 118/74
[2016-03-23] MEDS: IPRATRPIUM/ALBUTEROL 0.5/2.5MG 3 ML NEBU. NEB SCH ×4 (12:44→19:31)
[2016-03-23] MEDS: IV NORMAL SALINE 1000ML BAG 1,000 ML IV SCH ×2 (13:36)
[2016-03-23] MEDS: CEFPODOXIME PROXETIL 100 MG TABLET PO SCH ×2 (13:36→20:18)
[2016-03-23 15:00] VITALS: BP 113/78
[2016-03-23 19:00] VITALS: BP 126/78
[2016-03-23] MEDS: OXYCODONE IR 5 MG TABLET. PO PRN (20:18)
[2016-03-23 23:00] VITALS: BP 131/72
[2016-03-24 03:07] VITALS: BP 123/87
[2016-03-24] MEDS: IV NORMAL SALINE 1000ML BAG 1,000 ML IV SCH (03:28)
[2016-03-24 06:26] LABS: BASO % 0 % (0-3); EOS % 3 % (0-3); HEMATOCRIT 36.5 % (39.0-53.0); HEMOGLOBIN 12.2 g/dL (13.0-17.5); LYMPH # 2.2 x10^3/uL (1.0-4.8); LYMPH % 52 % (24-48); MEAN CORPUSCULAR HEMOGLOBIN 33 pg (25-35); MEAN CORPUSCULAR HGB CONC 33 g/dL (31-37); MEAN CORPUSCULAR VOLUME 98 fL (79-100); MONO % 7 % (0-9); NEUT % 38 % (31-73); PLATELET COUNT 148 x10^3/uL (140-400); RED BLOOD COUNT 3.73 x10^6/uL (4.30-5.70); RED CELL DISTRIBUTION WIDTH 14.2 % (11.5-14.5); WHITE BLOOD COUNT 4.2 x10^3/uL (4.0-11.0)
[2016-03-24 06:54] LABS: CALCIUM 8.3 mg/dL (8.5-10.1); CREATININE 0.8 mg/dL (0.7-1.3); GFR 96.4; POTASSIUM 3.6 mmol/L (3.5-5.1)
[2016-03-24 07:00] VITALS: BP 138/83
[2016-03-24] MEDS: IPRATRPIUM/ALBUTEROL 0.5/2.5MG 3 ML NEBU. NEB SCH ×5 (07:15→19:21)
[2016-03-24] MEDS: BUDESONIDE 0.5 MG/2 ML NEBU NEB SCH ×2 (07:15→19:21)
[2016-03-24] MEDS: LISINOPRIL 10 MG TABLET PO SCH (07:55)
[2016-03-24] MEDS: OSELTAMIVIR 75 MG CAPSULE PO SCH ×2 (07:55→21:08)
[2016-03-24] MEDS: GABAPENTIN 300 MG CAPSULE. PO SCH (07:55)
[2016-03-24] MEDS: CEFPODOXIME PROXETIL 100 MG TABLET PO SCH ×2 (07:56→21:08)
[2016-03-24] MEDS: AZITHROMYCIN 250 MG TABLET PO SCH (07:56)
[2016-03-24] MEDS: INSULIN ASPART 300 UNITS/3 ML INSULN.PEN SQ SCH ×3 (07:58→17:00)
--- NOTE | 2016-03-24 08:24 | PDOC ---
PULMONARY PROGRESS NOTES Subjective has sob, cough, better, has nasal congestion, no pain. Vitals Vital Signs Date Time Temp Pulse Resp B/P Pulse Ox O2 Delivery O2 Flow Rate FiO2 03/24/16 07:55 80 138/83 03/24/16 07:17 94 Nasal Cannula 2.0 03/24/16 03:07 97.7 20 97.7 Comments ros as mentioned as above other sys otherwise neg General: Alert, Oriented X4 HEENT: Other (nc at perrrl) Lungs: Wheezing Cardiovascular: S1, S2 Abdomen: Soft, Non-tender Neuro Exam: Alert, Oriented Extremities: Other (edema) Skin: Warm Labs Laboratory Tests Test 03/22/16 11:40 03/22/16 16:47 03/22/16 21:04 03/23/16 05:00 Glucose (Fingerstick) 224mg/dL (70-99) 150mg/dL (70-99) 256mg/dL (70-99) White Blood Count 5.4x10^3/uL (4.0-11.0) Red Blood Count 3.80x10^6/uL (4.30-5.70) Hemoglobin 12.2g/dL (13.0-17.5) Hematocrit 37.3% (39.0-53.0) Mean Corpuscular Volume 98fL (79-100) Mean Corpuscular Hemoglobin 32pg (25-35) Mean Corpuscular Hemoglobin Concent 33g/dL (31-37) Red Cell Distribution Width 14.1% (11.5-14.5) Platelet Count 156x10^3/uL (140-400) Neutrophils (%) (Auto) 49% (31-73) Lymphocytes (%) (Auto) 44% (24-48) Monocytes (%) (Auto) 6% (0-9) Eosinophils (%) (Auto) 1% (0-3) Basophils (%) (Auto) 0% (0-3) Neutrophils # (Auto) 2.7x10^3uL (1.8-7.7) Lymphocytes # (Auto) 2.4x10^3/uL (1.0-4.8) Monocytes # (Auto) 0.3x10^3/uL (0.0-1.1) Eosinophils # (Auto) 0.0x10^3/uL (0.0-0.7) Basophils # (Auto) 0.0x10^3/uL (0.0-0.2) Sodium Level 143mmol/L (136-145) Potassium Level 3.6mmol/L (3.5-5.1) Chloride Level 107mmol/L (98-107) Carbon Dioxide Level 31mmol/L (21-32) Anion Gap 5 (6-14) Blood Urea Nitrogen 15mg/dL (8-26) Creatinine 0.8mg/dL (0.7-1.3) Estimated GFR (Cockcroft-Gault) 96.4 Glucose Level 136mg/dL (70-99) Calcium Level 8.1mg/dL (8.5-10.1) Test 03/23/16 08:10 03/23/16 11:46 03/23/16 16:31 03/23/16 20:25 Glucose (Fingerstick) 163mg/dL (70-99) 156mg/dL (70-99) 139mg/dL (70-99) 164mg/dL (70-99) Test 03/24/16 05:50 03/24/16 07:26 White Blood Count 4.2x10^3/uL (4.0-11.0) Red Blood Count 3.73x10^6/uL (4.30-5.70) Hemoglobin 12.2g/dL (13.0-17.5) Hematocrit 36.5% (39.0-53.0) Mean Corpuscular Volume 98fL (79-100) Mean Corpuscular Hemoglobin 33pg (25-35) Mean Corpuscular Hemoglobin Concent 33g/dL (31-37) Red Cell Distribution Width 14.2% (11.5-14.5) Platelet Count 148x10^3/uL (140-400) Neutrophils (%) (Auto) 38% (31-73) Lymphocytes (%) (Auto) 52% (24-48) Monocytes (%) (Auto) 7% (0-9) Eosinophils (%) (Auto) 3% (0-3) Basophils (%) (Auto) 0% (0-3) Neutrophils # (Auto) 1.6x10^3uL (1.8-7.7) Lymphocytes # (Auto) 2.2x10^3/uL (1.0-4.8) Monocytes # (Auto) 0.3x10^3/uL (0.0-1.1) Eosinophils # (Auto) 0.1x10^3/uL (0.0-0.7) Basophils # (Auto) 0.0x10^3/uL (0.0-0.2) Sodium Level 141mmol/L (136-145) Potassium Level 3.6mmol/L (3.5-5.1) Chloride Level 106mmol/L (98-107) Carbon Dioxide Level 30mmol/L (21-32) Anion Gap 5 (6-14) Blood Urea Nitrogen 14mg/dL (8-26) Creatinine 0.8mg/dL (0.7-1.3) Estimated GFR (Cockcroft-Gault) 96.4 Glucose Level 139mg/dL (70-99) Calcium Level 8.3mg/dL (8.5-10.1) Glucose (Fingerstick) 143mg/dL (70-99) Laboratory Tests Test 03/23/16 11:46 03/23/16 16:31 03/23/16 20:25 03/24/16 05:50 Glucose (Fingerstick) 156mg/dL (70-99) 139mg/dL (70-99) 164mg/dL (70-99) White Blood Count 4.2x10^3/uL (4.0-11.0) Red Blood Count 3.73x10^6/uL (4.30-5.70) Hemoglobin 12.2g/dL (13.0-17.5) Hematocrit 36.5% (39.0-53.0) Mean Corpuscular Volume 98fL (79-100) Mean Corpuscular Hemoglobin 33pg (25-35) Mean Corpuscular Hemoglobin Concent 33g/dL (31-37) Red Cell Distribution Width 14.2% (11.5-14.5) Platelet Count 148x10^3/uL (140-400) Neutrophils (%) (Auto) 38% (31-73) Lymphocytes (%) (Auto) 52% (24-48) Monocytes (%) (Auto) 7% (0-9) Eosinophils (%) (Auto) 3% (0-3) Basophils (%) (Auto) 0% (0-3) Neutrophils # (Auto) 1.6x10^3uL (1.8-7.7) Lymphocytes # (Auto) 2.2x10^3/uL (1.0-4.8) Monocytes # (Auto) 0.3x10^3/uL (0.0-1.1) Eosinophils # (Auto) 0.1x10^3/uL (0.0-0.7) Basophils # (Auto) 0.0x10^3/uL (0.0-0.2) Sodium Level 141mmol/L (136-145) Potassium Level 3.6mmol/L (3.5-5.1) Chloride Level 106mmol/L (98-107) Carbon Dioxide Level 30mmol/L (21-32) Anion Gap 5 (6-14) Blood Urea Nitrogen 14mg/dL (8-26) Creatinine 0.8mg/dL (0.7-1.3) Estimated GFR (Cockcroft-Gault) 96.4 Glucose Level 139mg/dL (70-99) Calcium Level 8.3mg/dL (8.5-10.1) Test 03/24/16 07:26 Glucose (Fingerstick) 143mg/dL (70-99) Medications Active Scripts Medications Dose Route/Sig Days Date Category Metformin Hcl 500 Mg Tablet 1 Tab PO BID 03/21/16 Reported Gabapentin 600 Mg Tablet 600 Mg PO DAILY08 03/21/16 Reported Proair Hfa Inhaler (Albuterol Sulfate) 8.5 Gm Hfa.aer.ad 1 Puff INH PRN Q6HRS PRN 10/12/15 Rx Levaquin (Levofloxacin) 750 Mg Tablet 750 Mg PO DAILY 10/12/15 Rx Tessalon Perle (Benzonatate) 100 Mg Capsule 100 Mg PO TID PRN 10/12/15 Rx [Glucophage] 10/26/14 Reported Pepcid (Famotidine) 20 Mg Tablet 20 Mg PO BID 05/17/13 Reported Lisinopril 10 Mg Tablet 10 Mg PO 05/17/13 Reported Comments cxr reviewed. Impression . IMPRESSION: 1. Influenza. 2. High-grade fever secondary to influenza A. 3. History of morbid obesity and obstructive sleep apnea, uses home CPAP. 4. History of chronic respiratory failure secondary to suspected obesity hypoventilation syndrome. 5. dyspnea, cough 6. obesity, liz 7. wheezing 8. alllergic rhinitis Plan . RECOMMENDATIONS: 1. Antibiotics can be deescalated soon. 2. Continue Tamiflu. 3. Monitor for fevers. 4. Bronchodilators. 5. Home CPAP. 6. Continue oxygen at 2 liters which he normally uses at home. 7. ics 8. lose wt 9. add singulair. discussed w pt DESIRE DE LA GARZA MD Mar 24, 2016 08:24
[2016-03-24 11:00] VITALS: BP 161/95
[2016-03-24] MEDS: FAMOTIDINE 20 MG TABLET. PO SCH ×2 (11:41→21:07)
--- NOTE | 2016-03-24 14:06 | PDOC ---
PROGRESS NOTES Chief Complaint Chief Complaint 1. Influenza. A 2. Sepsis, Viral 3. Cough, dyspnea, pain 4. Morbid obesity, BMI 45 5. COPD, w/ acute bronchitis and hypoxia, 6. Possible restrictive lung disease History of Present Illness History of Present Illness Pt awake sitting up in bed at time of evaluation. Pt still has complaint of SOB with cough. Pt states that his nasal congestion is a little better. Pt denies any current pain. All questions and concerns answered and addressed. Vitals Vitals Vital Signs Date Time Temp Pulse Resp B/P Pulse Ox O2 Delivery O2 Flow Rate FiO2 03/24/16 11:16 Nasal Cannula 2.0 03/24/16 11:00 97.9 76 20 161/95 96 97.9 Physical Exam General: Alert, Oriented X3, Cooperative, moderate distress Heart: Regular rate, Normal S1, Normal S2, No murmurs Lungs: Clear Abdomen: Normal bowel sounds, No tenderness, No hepatosplenomegaly Extremities: No clubbing, No cyanosis, No edema Skin: No rashes, No significant lesion Labs LABS Laboratory Tests Test 03/23/16 16:31 03/23/16 20:25 03/24/16 05:50 03/24/16 07:26 Glucose (Fingerstick) 139mg/dL (70-99) 164mg/dL (70-99) 143mg/dL (70-99) White Blood Count 4.2x10^3/uL (4.0-11.0) Red Blood Count 3.73x10^6/uL (4.30-5.70) Hemoglobin 12.2g/dL (13.0-17.5) Hematocrit 36.5% (39.0-53.0) Mean Corpuscular Volume 98fL (79-100) Mean Corpuscular Hemoglobin 33pg (25-35) Mean Corpuscular Hemoglobin Concent 33g/dL (31-37) Red Cell Distribution Width 14.2% (11.5-14.5) Platelet Count 148x10^3/uL (140-400) Neutrophils (%) (Auto) 38% (31-73) Lymphocytes (%) (Auto) 52% (24-48) Monocytes (%) (Auto) 7% (0-9) Eosinophils (%) (Auto) 3% (0-3) Basophils (%) (Auto) 0% (0-3) Neutrophils # (Auto) 1.6x10^3uL (1.8-7.7) Lymphocytes # (Auto) 2.2x10^3/uL (1.0-4.8) Monocytes # (Auto) 0.3x10^3/uL (0.0-1.1) Eosinophils # (Auto) 0.1x10^3/uL (0.0-0.7) Basophils # (Auto) 0.0x10^3/uL (0.0-0.2) Sodium Level 141mmol/L (136-145) Potassium Level 3.6mmol/L (3.5-5.1) Chloride Level 106mmol/L (98-107) Carbon Dioxide Level 30mmol/L (21-32) Anion Gap 5 (6-14) Blood Urea Nitrogen 14mg/dL (8-26) Creatinine 0.8mg/dL (0.7-1.3) Estimated GFR (Cockcroft-Gault) 96.4 Glucose Level 139mg/dL (70-99) Calcium Level 8.3mg/dL (8.5-10.1) Test 03/24/16 10:56 Glucose (Fingerstick) 163mg/dL (70-99) Review of Systems Review of Systems Patient complaint of hunger Patient complaint of fatigue Assessment and Plan Assessmemt and Plan Problems Medical Problems: (1) Bronchitis Status: Acute (2) COPD exacerbation Status: Acute (3) Tachycardia Status: Acute Assessment: Continue to monitor the patient per floor protocol Continue daily labs- CBC, BMP, BUN, Cr Continue O2 2 L NC Continue breathing treatments Q4 hours PRN Daily PTOT JESSENIA RN Appreciate Pulmonary input, follow recommendations Continue PO Abx Problems: Comment Review of Relevant I have reviewed the following items denise (where applicable) has been applied. Labs Laboratory Tests Test 03/22/16 16:47 03/22/16 21:04 03/23/16 05:00 03/23/16 08:10 Glucose (Fingerstick) 150mg/dL (70-99) 256mg/dL (70-99) 163mg/dL (70-99) White Blood Count 5.4x10^3/uL (4.0-11.0) Red Blood Count 3.80x10^6/uL (4.30-5.70) Hemoglobin 12.2g/dL (13.0-17.5) Hematocrit 37.3% (39.0-53.0) Mean Corpuscular Volume 98fL (79-100) Mean Corpuscular Hemoglobin 32pg (25-35) Mean Corpuscular Hemoglobin Concent 33g/dL (31-37) Red Cell Distribution Width 14.1% (11.5-14.5) Platelet Count 156x10^3/uL (140-400) Neutrophils (%) (Auto) 49% (31-73) Lymphocytes (%) (Auto) 44% (24-48) Monocytes (%) (Auto) 6% (0-9) Eosinophils (%) (Auto) 1% (0-3) Basophils (%) (Auto) 0% (0-3) Neutrophils # (Auto) 2.7x10^3uL (1.8-7.7) Lymphocytes # (Auto) 2.4x10^3/uL (1.0-4.8) Monocytes # (Auto) 0.3x10^3/uL (0.0-1.1) Eosinophils # (Auto) 0.0x10^3/uL (0.0-0.7) Basophils # (Auto) 0.0x10^3/uL (0.0-0.2) Sodium Level 143mmol/L (136-145) Potassium Level 3.6mmol/L (3.5-5.1) Chloride Level 107mmol/L (98-107) Carbon Dioxide Level 31mmol/L (21-32) Anion Gap 5 (6-14) Blood Urea Nitrogen 15mg/dL (8-26) Creatinine 0.8mg/dL (0.7-1.3) Estimated GFR (Cockcroft-Gault) 96.4 Glucose Level 136mg/dL (70-99) Calcium Level 8.1mg/dL (8.5-10.1) Test 03/23/16 11:46 03/23/16 16:31 03/23/16 20:25 03/24/16 05:50 Glucose (Fingerstick) 156mg/dL (70-99) 139mg/dL (70-99) 164mg/dL (70-99) White Blood Count 4.2x10^3/uL (4.0-11.0) Red Blood Count 3.73x10^6/uL (4.30-5.70) Hemoglobin 12.2g/dL (13.0-17.5) Hematocrit 36.5% (39.0-53.0) Mean Corpuscular Volume 98fL (79-100) Mean Corpuscular Hemoglobin 33pg (25-35) Mean Corpuscular Hemoglobin Concent 33g/dL (31-37) Red Cell Distribution Width 14.2% (11.5-14.5) Platelet Count 148x10^3/uL (140-400) Neutrophils (%) (Auto) 38% (31-73) Lymphocytes (%) (Auto) 52% (24-48) Monocytes (%) (Auto) 7% (0-9) Eosinophils (%) (Auto) 3% (0-3) Basophils (%) (Auto) 0% (0-3) Neutrophils # (Auto) 1.6x10^3uL (1.8-7.7) Lymphocytes # (Auto) 2.2x10^3/uL (1.0-4.8) Monocytes # (Auto) 0.3x10^3/uL (0.0-1.1) Eosinophils # (Auto) 0.1x10^3/uL (0.0-0.7) Basophils # (Auto) 0.0x10^3/uL (0.0-0.2) Sodium Level 141mmol/L (136-145) Potassium Level 3.6mmol/L (3.5-5.1) Chloride Level 106mmol/L (98-107) Carbon Dioxide Level 30mmol/L (21-32) Anion Gap 5 (6-14) Blood Urea Nitrogen 14mg/dL (8-26) Creatinine 0.8mg/dL (0.7-1.3) Estimated GFR (Cockcroft-Gault) 96.4 Glucose Level 139mg/dL (70-99) Calcium Level 8.3mg/dL (8.5-10.1) Test 03/24/16 07:26 03/24/16 10:56 Glucose (Fingerstick) 143mg/dL (70-99) 163mg/dL (70-99) Laboratory Tests Test 03/23/16 16:31 03/23/16 20:25 03/24/16 05:50 03/24/16 07:26 Glucose (Fingerstick) 139mg/dL (70-99) 164mg/dL (70-99) 143mg/dL (70-99) White Blood Count 4.2x10^3/uL (4.0-11.0) Red Blood Count 3.73x10^6/uL (4.30-5.70) Hemoglobin 12.2g/dL (13.0-17.5) Hematocrit 36.5% (39.0-53.0) Mean Corpuscular Volume 98fL (79-100) Mean Corpuscular Hemoglobin 33pg (25-35) Mean Corpuscular Hemoglobin Concent 33g/dL (31-37) Red Cell Distribution Width 14.2% (11.5-14.5) Platelet Count 148x10^3/uL (140-400) Neutrophils (%) (Auto) 38% (31-73) Lymphocytes (%) (Auto) 52% (24-48) Monocytes (%) (Auto) 7% (0-9) Eosinophils (%) (Auto) 3% (0-3) Basophils (%) (Auto) 0% (0-3) Neutrophils # (Auto) 1.6x10^3uL (1.8-7.7) Lymphocytes # (Auto) 2.2x10^3/uL (1.0-4.8) Monocytes # (Auto) 0.3x10^3/uL (0.0-1.1) Eosinophils # (Auto) 0.1x10^3/uL (0.0-0.7) Basophils # (Auto) 0.0x10^3/uL (0.0-0.2) Sodium Level 141mmol/L (136-145) Potassium Level 3.6mmol/L (3.5-5.1) Chloride Level 106mmol/L (98-107) Carbon Dioxide Level 30mmol/L (21-32) Anion Gap 5 (6-14) Blood Urea Nitrogen 14mg/dL (8-26) Creatinine 0.8mg/dL (0.7-1.3) Estimated GFR (Cockcroft-Gault) 96.4 Glucose Level 139mg/dL (70-99) Calcium Level 8.3mg/dL (8.5-10.1) Test 03/24/16 10:56 Glucose (Fingerstick) 163mg/dL (70-99) Medications Current Medications Albuterol/ Ipratropium (Duoneb) 3 ml 1X ONCE NEB Last administered on 08:58; Start 03/21/16 at 08:45; Stop 03/21/16 at 08:46; Status DC Acetaminophen 1000 mg 1,000 mg 1X ONCE PO Last administered on 03/21/16 10:20 ; Start 03/21/16 at 08:45; Stop 03/21/16 at 08:46; Status DC Sodium Chloride (Iv Sodium Chloride 0.9% 1000ml Bag) 1,000 ml @ 1,000 mls/hr 1X ONCE IV Last administered on 03/21/16 10:22; Start 03/21/16 at 10:15; Stop 03/21/16 at 11:14; Status DC Ondansetron HCl 4 mg 4 mg PRN Q8HRS PRN IV NAUSEA/VOMITING; Start 03/21/16 at 10 :30; Stop 03/21/16 at 15:58; Status DC Sodium Chloride (Iv Sodium Chloride 0.9% 1000ml Bag) 1,000 ml @ 150 mls/hr Q6H40M IV Last administered on 03/21/16 23:42; Start 03/21/16 at 10:22; Stop 11/26 at 02:36; Status DC Albuterol/ Ipratropium 3 ml 3 ml RTQID NEB Last administered on 03/22/16 07:26 ; Start 03/21/16 at 12:00; Stop 03/22/16 at 11:59; Status DC Ceftriaxone Sodium (Rocephin 1gm Ivpb For Omni) 50 ml @ 100 mls/hr 1X ONCE IV Last administered on 03/21/16 12:55; Start 03/21/16 at 10:30; Stop 03/21/16 at 10:59; Status DC Methylprednisolone Sodium Succinate (Solu-Medrol 125mg Vial) 125 mg 1X ONCE IV Last administered on 03/21/16 12:55; Start 03/21/16 at 10:30; Stop 03/21/16 at 10:31; Status DC Oseltamivir Phosphate (Tamiflu) 75 mg BID PO Last administered on 03/24/16 07: 55; Start 03/21/16 at 12:00; Stop 03/26/16 at 11:59 Acetaminophen (Tylenol) 325 mg PRN Q6HRS PRN PO MILD PAIN / TEMP; Start at 14:15 Hydralazine HCl (Apresoline) 10 mg PRN Q4HRS PRN IVP ELEVATED BP, SEE COMMENTS ; Start 03/21/16 at 14:15 Ondansetron HCl (Zofran) 4 mg PRN Q8HRS PRN IV NAUSEA/VOMITING; Start 03/21/16 at 14:15 Albuterol Sulfate (Ventolin Neb Soln) 2.5 mg PRN Q4HRS PRN NEB SHORTNESS OF BREATH Last administered on 03/23/16 07:15; Start 03/21/16 at 14:15 Azithromycin 250 mg 250 mg DAILY PO Last administered on 03/24/16 07:56; Start 03/21/16 at 15:00; Stop 03/26/16 at 14:59 Ceftriaxone Sodium 1 gm/ Sodium Chloride 50 ml @ 100 mls/hr Q24H IV Last administered on 03/22/16 09:02; Start 03/22/16 at 09:00; Stop 03/22/16 at 14:47 ; Status DC Sodium Chloride (Iv Sodium Chloride 0.9% 1000ml Bag) 1,000 ml @ 75 mls/hr [id number] IV Last administered on 03/24/16 03:28; Start 03/21/16 at 14:30 Famotidine (Pepcid) 20 mg BID PO Last administered on 03/24/16 11:41; Start at 21:00 Levofloxacin (Levaquin) 750 mg DAILY PO Last administered on 03/21/16 15:34; Start 03/21/16 at 15:00; Stop 03/21/16 at 16:01; Status DC Lisinopril (Prinivil) 10 mg DAILY PO Last administered on 03/24/16 07:55; Start 03/21/16 at 15:00 Metformin HCl (Glucophage) 500 mg BIDWMEALS PO Last administered on 03/21/16 17 :32; Start 03/21/16 at 17:00; Stop 03/21/16 at 22:04; Status DC Non-Formulary Medication 1 puff PRN Q6HRS PRN INH SHORTNESS OF BREATH; Start at 14:45; Status UNV Gabapentin (Neurontin) 600 mg DAILY08 PO Last administered on 03/24/16 07:55; Start 03/22/16 at 08:00 Insulin Aspart (Novolog) 0-7 UNITS TIDWMEALS SQ Last administered on 03/24/16 11:44; Start 03/22/16 at 08:00 Dextrose 12.5 gm PRN Q15MIN PRN IV SEE COMMENTS; Start 03/21/16 at 22:00 Insulin Aspart (Novolog) 20 units 1X ONCE SQ Last administered on 03/21/16 22: 39; Start 03/21/16 at 22:15; Stop 03/21/16 at 22:16; Status DC Chlorphenir/ Hydrocodone Polistirex (Tussionex) 5 ml PRN Q12HR PRN PO COUGH Last administered on 03/23/16 20:20; Start 03/22/16 at 10:00 Guaifenesin (Robitussin Dm) 10 ml PRN Q6HRS PRN PO COUGH; Start 03/22/16 at 10: 00; Stop 03/22/16 at 10:12; Status DC Oxycodone HCl (Roxicodone) 5 mg PRN Q6HRS PRN PO PAIN Last administered on 03/23 20:18; Start 03/22/16 at 10:00 Cefpodoxime Proxetil (Vantin) 200 mg BID PO Last administered on 03/24/16 07: 56; Start 03/23/16 at 09:00 Albuterol/ Ipratropium (Duoneb) 3 ml RTQID NEB ; Start 03/23/16 at 08:00; Stop 03/23/16 at 09:59; Status DC Budesonide (Pulmicort) 0.5 mg RTBID NEB Last administered on 03/24/16 07:15; Start 03/23/16 at 09:00 Albuterol/ Ipratropium (Duoneb) 3 ml Q4HRS W/A NEB Last administered on 11:15; Start 03/23/16 at 10:00 Albuterol Sulfate (Ventolin Neb Soln) 2.5 mg RTQID PRN NEB SOB/WHEEZING; Start 03/23/16 at 10:15 Potassium Chloride (Klor-Con) 20 meq 1X ONCE PO Last administered on t 13:36; Start 03/23/16 at 10:00; Stop 03/23/16 at 10:03; Status DC Montelukast Sodium (Singulair) 10 mg QHS PO ; Start 03/24/16 at 21:00 Active Scripts Active Proair Hfa Inhaler (Albuterol Sulfate) 8.5 Gm Hfa.aer.ad 1 Puff INH PRN Q6HRS PRN Levaquin (Levofloxacin) 750 Mg Tablet 750 Mg PO DAILY Tessalon Perle (Benzonatate) 100 Mg Capsule 100 Mg PO TID PRN Reported Metformin Hcl 500 Mg Tablet 1 Tab PO BID Gabapentin 600 Mg Tablet 600 Mg PO DAILY08 [Glucophage] Pepcid (Famotidine) 20 Mg Tablet 20 Mg PO BID Lisinopril 10 Mg Tablet 10 Mg PO Vitals/I & O Vital Sign - Last 24 Hours 03/23/16 03/23/16 03/23/16 03/23/16 15:00 17:18 19:00 19:30 Temp 97.2 98.2 97.2 98.2 Pulse 75 76 Resp 20 20 B/P 113/78 126/78 Pulse Ox 98 94 94 O2 Delivery Nasal Cannula Nasal Cannula Nasal Cannula Nasal Cannula O2 Flow Rate 2.0 2.0 2.0 03/23/16 03/23/16 03/23/16 03/23/16 20:00 20:18 20:20 21:18 Resp 18 18 Pulse Ox 94 94 94 O2 Delivery Nasal Cannula Nasal Cannula Nasal Cannula Nasal Cannula O2 Flow Rate 2.0 2.0 2.0 2.0 03/23/16 03/23/16 03/24/16 03/24/16 21:18 23:00 03:07 07:00 Temp 97.7 97.7 97.5 97.7 97.7 97.5 Pulse 81 65 80 Resp 20 20 18 B/P 131/72 123/87 138/83 Pulse Ox 94 94 96 95 O2 Delivery Nasal Cannula Nasal Cannula Nasal Cannula Nasal Cannula O2 Flow Rate 2.0 2.0 203/24/16 03/24/16 03/24/16 07:17 07:55 08:00 11:00 Temp 97.9 97.9 Pulse 80 76 Resp 20 B/P 138/83 161/95 Pulse Ox 94 96 O2 Delivery Nasal Cannula Nasal Cannula Nasal Cannula O2 Flow Rate 2.0 2.0 2.0 03/24/16 11:16 O2 Delivery Nasal Cannula O2 Flow Rate 2.0 Intake and Output 03/23/16 03/23/16 03/24/16 15:00 23:00 07:00 Intake Total 480 ml 240 ml 720 ml Output Total 550 ml 1500 ml Balance -70 ml 240 ml -780 ml MANNY THOMASON III DO Mar 24, 2016 14:06
[2016-03-24 15:00] VITALS: BP 158/85
[2016-03-24 19:00] VITALS: BP 143/84
[2016-03-24] MEDS: MONTELUKAST SODIUM 10 MG TABLET. PO SCH (21:08)
[2016-03-24] MEDS: HYDROCODONE/CHLORPHEN POLIS 5 ML SUS.ER.12H. PO PRN (22:11)
[2016-03-24 23:00] VITALS: BP 167/89
[2016-03-25 03:04] VITALS: BP 158/70
[2016-03-25] MEDS: IV NORMAL SALINE 1000ML BAG 1,000 ML IV SCH ×2 (05:01→17:13)
[2016-03-25 05:56] LABS: BASO % 0 % (0-3); EOS % 4 % (0-3); HEMATOCRIT 35.1 % (39.0-53.0); HEMOGLOBIN 11.9 g/dL (13.0-17.5); LYMPH # 2.1 x10^3/uL (1.0-4.8); LYMPH % 46 % (24-48); MEAN CORPUSCULAR HEMOGLOBIN 32 pg (25-35); MEAN CORPUSCULAR HGB CONC 34 g/dL (31-37); MEAN CORPUSCULAR VOLUME 96 fL (79-100); MONO % 8 % (0-9); NEUT % 42 % (31-73); PLATELET COUNT 151 x10^3/uL (140-400); RED BLOOD COUNT 3.67 x10^6/uL (4.30-5.70); RED CELL DISTRIBUTION WIDTH 13.7 % (11.5-14.5); WHITE BLOOD COUNT 4.6 x10^3/uL (4.0-11.0)
[2016-03-25 06:19] LABS: CALCIUM 8.6 mg/dL (8.5-10.1); CREATININE 0.9 mg/dL (0.7-1.3); GFR 84.2; POTASSIUM 3.5 mmol/L (3.5-5.1)
[2016-03-25 07:00] VITALS: BP_SYST 184; BP_SYST 186; BP_DIAS 102; BP_DIAS 114
[2016-03-25] MEDS: IPRATRPIUM/ALBUTEROL 0.5/2.5MG 3 ML NEBU. NEB SCH ×4 (07:33→18:00)
[2016-03-25] MEDS: BUDESONIDE 0.5 MG/2 ML NEBU NEB SCH ×2 (07:33→18:11)
[2016-03-25] MEDS: FAMOTIDINE 20 MG TABLET. PO SCH ×2 (08:48→21:14)
[2016-03-25] MEDS: AZITHROMYCIN 250 MG TABLET PO SCH (08:48)
[2016-03-25] MEDS: OSELTAMIVIR 75 MG CAPSULE PO SCH ×2 (08:48→21:14)
[2016-03-25] MEDS: GABAPENTIN 300 MG CAPSULE. PO SCH (08:48)
[2016-03-25] MEDS: LISINOPRIL 10 MG TABLET PO SCH (08:49)
[2016-03-25] MEDS: CEFPODOXIME PROXETIL 100 MG TABLET PO SCH ×2 (09:00→21:14)
[2016-03-25] MEDS: INSULIN ASPART 300 UNITS/3 ML INSULN.PEN SQ SCH ×3 (09:05→17:00)
[2016-03-25 10:34] VITALS: BP 157/92
--- NOTE | 2016-03-25 11:50 | PDOC ---
PROGRESS NOTES Chief Complaint Chief Complaint Influenza A Hypoxic respir distress ASSESSMENT AND PLAN: 1. Influenza. A: on tamiflu since 03/21 2. Sepsis: viral etiology. resolved 3. COPD exacerbation w/ acute bronchitis: much improved. cont currrent regimen 4. Morbid obesity, BMI 45, with hypoventillation syndrome 5. DAVID: on CPAP at home History of Present Illness History of Present Illness Vitals Vitals Vital Signs Date Time Temp Pulse Resp B/P Pulse Ox O2 Delivery O2 Flow Rate FiO2 03/25/16 10:34 98.2 57 21 157/92 96 Nasal Cannula 2.0 98.2 Physical Exam General: Alert, Oriented X3, Cooperative, No acute distress Heart: Regular rate, Normal S1, Normal S2, No murmurs Lungs: Clear Abdomen: Normal bowel sounds, No tenderness Extremities: No clubbing, No cyanosis, No edema Skin: No rashes, No significant lesion Labs LABS Laboratory Tests Test 03/24/16 16:35 03/24/16 20:36 03/25/16 04:45 03/25/16 07:21 Glucose (Fingerstick) 191mg/dL (70-99) 159mg/dL (70-99) 154mg/dL (70-99) White Blood Count 4.6x10^3/uL (4.0-11.0) Red Blood Count 3.67x10^6/uL (4.30-5.70) Hemoglobin 11.9g/dL (13.0-17.5) Hematocrit 35.1% (39.0-53.0) Mean Corpuscular Volume 96fL (79-100) Mean Corpuscular Hemoglobin 32pg (25-35) Mean Corpuscular Hemoglobin Concent 34g/dL (31-37) Red Cell Distribution Width 13.7% (11.5-14.5) Platelet Count 151x10^3/uL (140-400) Neutrophils (%) (Auto) 42% (31-73) Lymphocytes (%) (Auto) 46% (24-48) Monocytes (%) (Auto) 8% (0-9) Eosinophils (%) (Auto) 4% (0-3) Basophils (%) (Auto) 0% (0-3) Neutrophils # (Auto) 1.9x10^3uL (1.8-7.7) Lymphocytes # (Auto) 2.1x10^3/uL (1.0-4.8) Monocytes # (Auto) 0.3x10^3/uL (0.0-1.1) Eosinophils # (Auto) 0.2x10^3/uL (0.0-0.7) Basophils # (Auto) 0.0x10^3/uL (0.0-0.2) Sodium Level 142mmol/L (136-145) Potassium Level 3.5mmol/L (3.5-5.1) Chloride Level 104mmol/L (98-107) Carbon Dioxide Level 29mmol/L (21-32) Anion Gap 9 (6-14) Blood Urea Nitrogen 12mg/dL (8-26) Creatinine 0.9mg/dL (0.7-1.3) Estimated GFR (Cockcroft-Gault) 84.2 Glucose Level 237mg/dL (70-99) Calcium Level 8.6mg/dL (8.5-10.1) Review of Systems Review of Systems much improved, questioning discharge Comment Review of Relevant Labs Medications LAURA TAYLOR MD Mar 25, 2016 11:50
[2016-03-25 15:00] VITALS: BP 151/89
[2016-03-25 19:00] VITALS: BP 190/91
--- NOTE | 2016-03-25 20:11 | PDOC ---
PULMONARY PROGRESS NOTES Subjective has sob, cough, better, has nasal congestion, no pain. Vitals Vital Signs Date Time Temp Pulse Resp B/P Pulse Ox O2 Delivery O2 Flow Rate FiO2 03/25/16 15:54 Nasal Cannula 2.0 03/25/16 15:00 98.1 64 22 151/89 98 98.1 Comments ros as mentioned as above other sys otherwise neg General: Alert, Oriented X4 HEENT: Other (nc at perrrl) Lungs: Clear Cardiovascular: S1, S2 Abdomen: Soft, Non-tender Neuro Exam: Alert, Oriented Extremities: Other (edema) Skin: Warm Labs Laboratory Tests Test 03/23/16 20:25 03/24/16 05:50 03/24/16 07:26 03/24/16 10:56 Glucose (Fingerstick) 164mg/dL (70-99) 143mg/dL (70-99) 163mg/dL (70-99) White Blood Count 4.2x10^3/uL (4.0-11.0) Red Blood Count 3.73x10^6/uL (4.30-5.70) Hemoglobin 12.2g/dL (13.0-17.5) Hematocrit 36.5% (39.0-53.0) Mean Corpuscular Volume 98fL (79-100) Mean Corpuscular Hemoglobin 33pg (25-35) Mean Corpuscular Hemoglobin Concent 33g/dL (31-37) Red Cell Distribution Width 14.2% (11.5-14.5) Platelet Count 148x10^3/uL (140-400) Neutrophils (%) (Auto) 38% (31-73) Lymphocytes (%) (Auto) 52% (24-48) Monocytes (%) (Auto) 7% (0-9) Eosinophils (%) (Auto) 3% (0-3) Basophils (%) (Auto) 0% (0-3) Neutrophils # (Auto) 1.6x10^3uL (1.8-7.7) Lymphocytes # (Auto) 2.2x10^3/uL (1.0-4.8) Monocytes # (Auto) 0.3x10^3/uL (0.0-1.1) Eosinophils # (Auto) 0.1x10^3/uL (0.0-0.7) Basophils # (Auto) 0.0x10^3/uL (0.0-0.2) Sodium Level 141mmol/L (136-145) Potassium Level 3.6mmol/L (3.5-5.1) Chloride Level 106mmol/L (98-107) Carbon Dioxide Level 30mmol/L (21-32) Anion Gap 5 (6-14) Blood Urea Nitrogen 14mg/dL (8-26) Creatinine 0.8mg/dL (0.7-1.3) Estimated GFR (Cockcroft-Gault) 96.4 Glucose Level 139mg/dL (70-99) Calcium Level 8.3mg/dL (8.5-10.1) Test 03/24/16 16:35 03/24/16 20:36 03/25/16 04:45 03/25/16 07:21 Glucose (Fingerstick) 191mg/dL (70-99) 159mg/dL (70-99) 154mg/dL (70-99) White Blood Count 4.6x10^3/uL (4.0-11.0) Red Blood Count 3.67x10^6/uL (4.30-5.70) Hemoglobin 11.9g/dL (13.0-17.5) Hematocrit 35.1% (39.0-53.0) Mean Corpuscular Volume 96fL (79-100) Mean Corpuscular Hemoglobin 32pg (25-35) Mean Corpuscular Hemoglobin Concent 34g/dL (31-37) Red Cell Distribution Width 13.7% (11.5-14.5) Platelet Count 151x10^3/uL (140-400) Neutrophils (%) (Auto) 42% (31-73) Lymphocytes (%) (Auto) 46% (24-48) Monocytes (%) (Auto) 8% (0-9) Eosinophils (%) (Auto) 4% (0-3) Basophils (%) (Auto) 0% (0-3) Neutrophils # (Auto) 1.9x10^3uL (1.8-7.7) Lymphocytes # (Auto) 2.1x10^3/uL (1.0-4.8) Monocytes # (Auto) 0.3x10^3/uL (0.0-1.1) Eosinophils # (Auto) 0.2x10^3/uL (0.0-0.7) Basophils # (Auto) 0.0x10^3/uL (0.0-0.2) Sodium Level 142mmol/L (136-145) Potassium Level 3.5mmol/L (3.5-5.1) Chloride Level 104mmol/L (98-107) Carbon Dioxide Level 29mmol/L (21-32) Anion Gap 9 (6-14) Blood Urea Nitrogen 12mg/dL (8-26) Creatinine 0.9mg/dL (0.7-1.3) Estimated GFR (Cockcroft-Gault) 84.2 Glucose Level 237mg/dL (70-99) Calcium Level 8.6mg/dL (8.5-10.1) Test 03/25/16 11:57 03/25/16 17:03 Glucose (Fingerstick) 127mg/dL (70-99) 130mg/dL (70-99) Laboratory Tests Test 03/24/16 20:36 03/25/16 04:45 03/25/16 07:21 03/25/16 11:57 Glucose (Fingerstick) 159mg/dL (70-99) 154mg/dL (70-99) 127mg/dL (70-99) White Blood Count 4.6x10^3/uL (4.0-11.0) Red Blood Count 3.67x10^6/uL (4.30-5.70) Hemoglobin 11.9g/dL (13.0-17.5) Hematocrit 35.1% (39.0-53.0) Mean Corpuscular Volume 96fL (79-100) Mean Corpuscular Hemoglobin 32pg (25-35) Mean Corpuscular Hemoglobin Concent 34g/dL (31-37) Red Cell Distribution Width 13.7% (11.5-14.5) Platelet Count 151x10^3/uL (140-400) Neutrophils (%) (Auto) 42% (31-73) Lymphocytes (%) (Auto) 46% (24-48) Monocytes (%) (Auto) 8% (0-9) Eosinophils (%) (Auto) 4% (0-3) Basophils (%) (Auto) 0% (0-3) Neutrophils # (Auto) 1.9x10^3uL (1.8-7.7) Lymphocytes # (Auto) 2.1x10^3/uL (1.0-4.8) Monocytes # (Auto) 0.3x10^3/uL (0.0-1.1) Eosinophils # (Auto) 0.2x10^3/uL (0.0-0.7) Basophils # (Auto) 0.0x10^3/uL (0.0-0.2) Sodium Level 142mmol/L (136-145) Potassium Level 3.5mmol/L (3.5-5.1) Chloride Level 104mmol/L (98-107) Carbon Dioxide Level 29mmol/L (21-32) Anion Gap 9 (6-14) Blood Urea Nitrogen 12mg/dL (8-26) Creatinine 0.9mg/dL (0.7-1.3) Estimated GFR (Cockcroft-Gault) 84.2 Glucose Level 237mg/dL (70-99) Calcium Level 8.6mg/dL (8.5-10.1) Test 03/25/16 17:03 Glucose (Fingerstick) 130mg/dL (70-99) Medications Active Scripts Medications Dose Route/Sig Days Date Category Metformin Hcl 500 Mg Tablet 1 Tab PO BID 03/21/16 Reported Gabapentin 600 Mg Tablet 600 Mg PO DAILY08 03/21/16 Reported Proair Hfa Inhaler (Albuterol Sulfate) 8.5 Gm Hfa.aer.ad 1 Puff INH PRN Q6HRS PRN 10/12/15 Rx Levaquin (Levofloxacin) 750 Mg Tablet 750 Mg PO DAILY 10/12/15 Rx Tessalon Perle (Benzonatate) 100 Mg Capsule 100 Mg PO TID PRN 10/12/15 Rx [Glucophage] 10/26/14 Reported Pepcid (Famotidine) 20 Mg Tablet 20 Mg PO BID 05/17/13 Reported Lisinopril 10 Mg Tablet 10 Mg PO 05/17/13 Reported Comments cxr reviewed. Impression . IMPRESSION: 1. Influenza. 2. High-grade fever secondary to influenza A. 3. History of morbid obesity and obstructive sleep apnea, uses home CPAP. 4. History of chronic respiratory failure secondary to suspected obesity hypoventilation syndrome. 5. dyspnea, cough 6. obesity, liz 7. wheezing 8. alllergic rhinitis Plan . PT IMPROVED OK TO D/C IN AM HELENA MACHADO MD Mar 25, 2016 20:10
[2016-03-25] MEDS: MONTELUKAST SODIUM 10 MG TABLET. PO SCH (21:14)
[2016-03-25] MEDS: HYDROCODONE/CHLORPHEN POLIS 5 ML SUS.ER.12H. PO PRN (21:18)
[2016-03-25 23:00] VITALS: BP 154/90
[2016-03-26 03:00] VITALS: BP 168/91
[2016-03-26] MEDS: IV NORMAL SALINE 1000ML BAG 1,000 ML IV SCH ×2 (05:47→16:47)
[2016-03-26 05:52] LABS: BASO % 0 % (0-3); EOS % 4 % (0-3); HEMATOCRIT 37.1 % (39.0-53.0); HEMOGLOBIN 12.2 g/dL (13.0-17.5); LYMPH # 2.3 x10^3/uL (1.0-4.8); LYMPH % 43 % (24-48); MEAN CORPUSCULAR HEMOGLOBIN 32 pg (25-35); MEAN CORPUSCULAR HGB CONC 33 g/dL (31-37); MEAN CORPUSCULAR VOLUME 97 fL (79-100); MONO % 7 % (0-9); NEUT % 45 % (31-73); PLATELET COUNT 155 x10^3/uL (140-400); RED BLOOD COUNT 3.82 x10^6/uL (4.30-5.70); RED CELL DISTRIBUTION WIDTH 13.8 % (11.5-14.5); WHITE BLOOD COUNT 5.4 x10^3/uL (4.0-11.0)
[2016-03-26 06:09] LABS: CALCIUM 8.6 mg/dL (8.5-10.1); CREATININE 0.8 mg/dL (0.7-1.3); GFR 96.4; POTASSIUM 3.5 mmol/L (3.5-5.1)
[2016-03-26 07:15] VITALS: BP 149/92
[2016-03-26] MEDS: IPRATRPIUM/ALBUTEROL 0.5/2.5MG 3 ML NEBU. NEB SCH ×3 (07:54→14:00)
[2016-03-26] MEDS: BUDESONIDE 0.5 MG/2 ML NEBU NEB SCH (07:55)
[2016-03-26] MEDS: INSULIN ASPART 300 UNITS/3 ML INSULN.PEN SQ SCH ×3 (08:00→17:25)
--- NOTE | 2016-03-26 09:11 | PDOC ---
PULMONARY PROGRESS NOTES Subjective FEELS BETTER WANTS TO GO HOME Vitals Vital Signs Date Time Temp Pulse Resp B/P Pulse Ox O2 Delivery O2 Flow Rate FiO2 03/26/16 07:55 95 Nasal Cannula 2.0 03/26/16 07:15 97.9 80 18 149/92 97.9 ROS: No Nausea, No Chest Pain, No Abdominal Pain, No Increase Cough General: Alert HEENT: Other (nc at perrrl) Lungs: Clear Cardiovascular: S1, S2 Abdomen: Soft, Non-tender Neuro Exam: Alert, Oriented Extremities: Other (edema) Skin: Warm Labs Laboratory Tests Test 03/24/16 10:56 03/24/16 16:35 03/24/16 20:36 03/25/16 04:45 Glucose (Fingerstick) 163mg/dL (70-99) 191mg/dL (70-99) 159mg/dL (70-99) White Blood Count 4.6x10^3/uL (4.0-11.0) Red Blood Count 3.67x10^6/uL (4.30-5.70) Hemoglobin 11.9g/dL (13.0-17.5) Hematocrit 35.1% (39.0-53.0) Mean Corpuscular Volume 96fL (79-100) Mean Corpuscular Hemoglobin 32pg (25-35) Mean Corpuscular Hemoglobin Concent 34g/dL (31-37) Red Cell Distribution Width 13.7% (11.5-14.5) Platelet Count 151x10^3/uL (140-400) Neutrophils (%) (Auto) 42% (31-73) Lymphocytes (%) (Auto) 46% (24-48) Monocytes (%) (Auto) 8% (0-9) Eosinophils (%) (Auto) 4% (0-3) Basophils (%) (Auto) 0% (0-3) Neutrophils # (Auto) 1.9x10^3uL (1.8-7.7) Lymphocytes # (Auto) 2.1x10^3/uL (1.0-4.8) Monocytes # (Auto) 0.3x10^3/uL (0.0-1.1) Eosinophils # (Auto) 0.2x10^3/uL (0.0-0.7) Basophils # (Auto) 0.0x10^3/uL (0.0-0.2) Sodium Level 142mmol/L (136-145) Potassium Level 3.5mmol/L (3.5-5.1) Chloride Level 104mmol/L (98-107) Carbon Dioxide Level 29mmol/L (21-32) Anion Gap 9 (6-14) Blood Urea Nitrogen 12mg/dL (8-26) Creatinine 0.9mg/dL (0.7-1.3) Estimated GFR (Cockcroft-Gault) 84.2 Glucose Level 237mg/dL (70-99) Calcium Level 8.6mg/dL (8.5-10.1) Test 03/25/16 07:21 03/25/16 11:57 03/25/16 17:03 03/25/16 20:36 Glucose (Fingerstick) 154mg/dL (70-99) 127mg/dL (70-99) 130mg/dL (70-99) 182mg/dL (70-99) Test 03/26/16 04:20 03/26/16 08:06 White Blood Count 5.4x10^3/uL (4.0-11.0) Red Blood Count 3.82x10^6/uL (4.30-5.70) Hemoglobin 12.2g/dL (13.0-17.5) Hematocrit 37.1% (39.0-53.0) Mean Corpuscular Volume 97fL (79-100) Mean Corpuscular Hemoglobin 32pg (25-35) Mean Corpuscular Hemoglobin Concent 33g/dL (31-37) Red Cell Distribution Width 13.8% (11.5-14.5) Platelet Count 155x10^3/uL (140-400) Neutrophils (%) (Auto) 45% (31-73) Lymphocytes (%) (Auto) 43% (24-48) Monocytes (%) (Auto) 7% (0-9) Eosinophils (%) (Auto) 4% (0-3) Basophils (%) (Auto) 0% (0-3) Neutrophils # (Auto) 2.4x10^3uL (1.8-7.7) Lymphocytes # (Auto) 2.3x10^3/uL (1.0-4.8) Monocytes # (Auto) 0.4x10^3/uL (0.0-1.1) Eosinophils # (Auto) 0.2x10^3/uL (0.0-0.7) Basophils # (Auto) 0.0x10^3/uL (0.0-0.2) Sodium Level 144mmol/L (136-145) Potassium Level 3.5mmol/L (3.5-5.1) Chloride Level 106mmol/L (98-107) Carbon Dioxide Level 32mmol/L (21-32) Anion Gap 6 (6-14) Blood Urea Nitrogen 11mg/dL (8-26) Creatinine 0.8mg/dL (0.7-1.3) Estimated GFR (Cockcroft-Gault) 96.4 Glucose Level 134mg/dL (70-99) Calcium Level 8.6mg/dL (8.5-10.1) Glucose (Fingerstick) 144mg/dL (70-99) Laboratory Tests Test 03/25/16 11:57 03/25/16 17:03 03/25/16 20:36 03/26/16 04:20 Glucose (Fingerstick) 127mg/dL (70-99) 130mg/dL (70-99) 182mg/dL (70-99) White Blood Count 5.4x10^3/uL (4.0-11.0) Red Blood Count 3.82x10^6/uL (4.30-5.70) Hemoglobin 12.2g/dL (13.0-17.5) Hematocrit 37.1% (39.0-53.0) Mean Corpuscular Volume 97fL (79-100) Mean Corpuscular Hemoglobin 32pg (25-35) Mean Corpuscular Hemoglobin Concent 33g/dL (31-37) Red Cell Distribution Width 13.8% (11.5-14.5) Platelet Count 155x10^3/uL (140-400) Neutrophils (%) (Auto) 45% (31-73) Lymphocytes (%) (Auto) 43% (24-48) Monocytes (%) (Auto) 7% (0-9) Eosinophils (%) (Auto) 4% (0-3) Basophils (%) (Auto) 0% (0-3) Neutrophils # (Auto) 2.4x10^3uL (1.8-7.7) Lymphocytes # (Auto) 2.3x10^3/uL (1.0-4.8) Monocytes # (Auto) 0.4x10^3/uL (0.0-1.1) Eosinophils # (Auto) 0.2x10^3/uL (0.0-0.7) Basophils # (Auto) 0.0x10^3/uL (0.0-0.2) Sodium Level 144mmol/L (136-145) Potassium Level 3.5mmol/L (3.5-5.1) Chloride Level 106mmol/L (98-107) Carbon Dioxide Level 32mmol/L (21-32) Anion Gap 6 (6-14) Blood Urea Nitrogen 11mg/dL (8-26) Creatinine 0.8mg/dL (0.7-1.3) Estimated GFR (Cockcroft-Gault) 96.4 Glucose Level 134mg/dL (70-99) Calcium Level 8.6mg/dL (8.5-10.1) Test 03/26/16 08:06 Glucose (Fingerstick) 144mg/dL (70-99) Medications Active Scripts Medications Dose Route/Sig Days Date Category Metformin Hcl 500 Mg Tablet 1 Tab PO BID 03/21/16 Reported Gabapentin 600 Mg Tablet 600 Mg PO DAILY08 03/21/16 Reported Proair Hfa Inhaler (Albuterol Sulfate) 8.5 Gm Hfa.aer.ad 1 Puff INH PRN Q6HRS PRN 10/12/15 Rx Levaquin (Levofloxacin) 750 Mg Tablet 750 Mg PO DAILY 10/12/15 Rx Tessalon Perle (Benzonatate) 100 Mg Capsule 100 Mg PO TID PRN 10/12/15 Rx [Glucophage] 10/26/14 Reported Pepcid (Famotidine) 20 Mg Tablet 20 Mg PO BID 05/17/13 Reported Lisinopril 10 Mg Tablet 10 Mg PO 05/17/13 Reported Comments cxr reviewed. Impression . IMPRESSION: 1. Influenza. 2. High-grade fever secondary to influenza A. 3. History of morbid obesity and obstructive sleep apnea, uses home CPAP. 4. History of chronic respiratory failure secondary to suspected obesity hypoventilation syndrome. 5. dyspnea, cough 6. obesity, liz 7. wheezing 8. alllergic rhinitis Plan . PT IMPROVED OK TO D/C TODAY PT HAS 02 AT HOME NEEDS HELENA SCHMID MD Mar 26, 2016 09:11
[2016-03-26] MEDS: CEFPODOXIME PROXETIL 100 MG TABLET PO SCH (09:44)
[2016-03-26] MEDS: AZITHROMYCIN 250 MG TABLET PO SCH (09:44)
[2016-03-26] MEDS: OSELTAMIVIR 75 MG CAPSULE PO SCH (09:44)
[2016-03-26] MEDS: GABAPENTIN 300 MG CAPSULE. PO SCH (09:44)
[2016-03-26] MEDS: LISINOPRIL 10 MG TABLET PO SCH (09:45)
[2016-03-26] MEDS: FAMOTIDINE 20 MG TABLET. PO SCH (09:45)
[2016-03-26 11:15] VITALS: BP 142/89
--- NOTE | 2016-03-26 11:21 | PDOC ---
PROGRESS NOTES Chief Complaint Chief Complaint Influenza A Hypoxic respir distress ASSESSMENT AND PLAN: 1. Influenza. A: on tamiflu since 03/21, completed regimen today. 2. Sepsis: viral etiology. resolved 3. COPD exacerbation w/ acute bronchitis: much improved. steroid taper, has home O2 4. Morbid obesity, BMI 45, with hypoventilation syndrome 5. DAVID: on CPAP at home 6. Dispo: home today. History of Present Illness History of Present Illness Vitals Vitals Vital Signs Date Time Temp Pulse Resp B/P Pulse Ox O2 Delivery O2 Flow Rate FiO2 03/26/16 09:45 80 149/92 03/26/16 08:00 Nasal Cannula 2.0 03/26/16 07:55 95 03/26/16 07:15 97.9 18 97.9 Physical Exam General: Alert, Oriented X3, Cooperative, No acute distress Heart: Regular rate, Normal S1, Normal S2, No murmurs Lungs: Clear Abdomen: Normal bowel sounds, No tenderness Extremities: No clubbing, No cyanosis, No edema Skin: No rashes, No significant lesion Labs LABS Laboratory Tests Test 03/25/16 11:57 03/25/16 17:03 03/25/16 20:36 03/26/16 04:20 Glucose (Fingerstick) 127mg/dL (70-99) 130mg/dL (70-99) 182mg/dL (70-99) White Blood Count 5.4x10^3/uL (4.0-11.0) Red Blood Count 3.82x10^6/uL (4.30-5.70) Hemoglobin 12.2g/dL (13.0-17.5) Hematocrit 37.1% (39.0-53.0) Mean Corpuscular Volume 97fL (79-100) Mean Corpuscular Hemoglobin 32pg (25-35) Mean Corpuscular Hemoglobin Concent 33g/dL (31-37) Red Cell Distribution Width 13.8% (11.5-14.5) Platelet Count 155x10^3/uL (140-400) Neutrophils (%) (Auto) 45% (31-73) Lymphocytes (%) (Auto) 43% (24-48) Monocytes (%) (Auto) 7% (0-9) Eosinophils (%) (Auto) 4% (0-3) Basophils (%) (Auto) 0% (0-3) Neutrophils # (Auto) 2.4x10^3uL (1.8-7.7) Lymphocytes # (Auto) 2.3x10^3/uL (1.0-4.8) Monocytes # (Auto) 0.4x10^3/uL (0.0-1.1) Eosinophils # (Auto) 0.2x10^3/uL (0.0-0.7) Basophils # (Auto) 0.0x10^3/uL (0.0-0.2) Sodium Level 144mmol/L (136-145) Potassium Level 3.5mmol/L (3.5-5.1) Chloride Level 106mmol/L (98-107) Carbon Dioxide Level 32mmol/L (21-32) Anion Gap 6 (6-14) Blood Urea Nitrogen 11mg/dL (8-26) Creatinine 0.8mg/dL (0.7-1.3) Estimated GFR (Cockcroft-Gault) 96.4 Glucose Level 134mg/dL (70-99) Calcium Level 8.6mg/dL (8.5-10.1) Test 03/26/16 08:06 Glucose (Fingerstick) 144mg/dL (70-99) Review of Systems Review of Systems feels food. eager to go home Comment Review of Relevant LAURA TAYLOR MD Mar 26, 2016 11:21
[2016-03-26] MEDS ORDERED: PRED-220 PO (11:25)
[2016-03-26] MEDS ORDERED: MONT10TA9 PO (11:25)
[2016-03-26] MEDS ORDERED: Hydrocodone/Chlorphen Polis PO (11:25)
[2016-03-26 15:19] VITALS: BP 153/81
--- NOTE | 2016-03-28 18:32 | DS ---
DATE OF DISCHARGE: 03/26/2016 CHIEF COMPLAINT: Hypoxic respiratory distress. HOSPITAL COURSE: The patient is a 65-year-old gentleman who presented to the hospital with shortness of breath and viral syndrome. He was diagnosed with influenza A and started on Tamiflu. Accompanying COPD exacerbation with acute bronchitis was treated with steroid tapers, nebulizers, and home O2. He was deemed appropriate for discharge on the 26 of March. DISCHARGE PHYSICAL EXAMINATION: Please refer to Xena's note from same day. DISCHARGE DATE: 03/25/2016. DISCHARGE DISPOSITION: To home. DISCHARGE CONDITION: Improved. DISCHARGE DIAGNOSES: Influenza A, chronic obstructive pulmonary disease exacerbation. DISCHARGE MEDICATIONS: Please refer to MAR. DISCHARGE INSTRUCTIONS: The patient will follow up with his PCP in one week. LAURA TAYLOR MD DR: UR/nts JOB#: [id number] / [id number]
== END 2016-03-26 18:15 | disposition home or self-care (01) | DRG 872 ==
LOC: ER 08:36 → 5 NORTH 10:27
PROVIDERS: ADMIT Internal Medicine; ATTEND Internal Medicine
DX: A41.89 Other specified sepsis (principal); J44.0 Chronic obstructive pulmonary disease with (acute) lower respiratory infection; J44.1 Chronic obstructive pulmonary disease with (acute) exacerbation; J98.11 Atelectasis; Z68.42 Body mass index [BMI] 45.0-49.9, adult; J80 Acute respiratory distress syndrome; J96.11 Chronic respiratory failure with hypoxia; J11.1 Influenza due to unidentified influenza virus with other respiratory manifestations; E11.9 Type 2 diabetes mellitus without complications; E66.01 Morbid (severe) obesity due to excess calories; E86.0 Dehydration; G47.33 Obstructive sleep apnea (adult) (pediatric); I10 Essential (primary) hypertension; J20.9 Acute bronchitis, unspecified; J31.0 Chronic rhinitis; J98.4 Other disorders of lung; Z86.73 Personal history of transient ischemic attack (TIA), and cerebral infarction without residual deficits; Z99.81 Dependence on supplemental oxygen; Z88.6 Allergy status to analgesic agent; Z88.0 Allergy status to penicillin; Z88.7 Allergy status to serum and vaccine; Z88.8 Allergy status to other drugs, medicaments and biological substances
CPT/HCPCS: 36415; 71010; 80048; 82947; 83880; 84484; 85027; 87804; 93005; 94250; 94640; 94760; 99406; J0690; J0696; J1815; J2930; J7030; J7620; Q0144; 97116; 97530; 99285-25

== ENCOUNTER 2016-06-09 23:48 | Emergency (ER) | payer OTHER ==
[~2016-06-09] VITALS: Ht 162.6 cm; Wt 117.9 kg
[~2016-06-09 23:48] MED LIST changes: +GABA600T2 PO; +Hydrocodone/Chlorphen Polis PO; +METF500T4 PO; +MONT10TA9 PO; +PRED-220 PO
[2016-06-10 00:04] VITALS: BP 154/87
--- NOTE | 2016-06-10 00:36 | PHYS DOC ---
Past Medical History Past Medical History: COPD, CVA, Diabetes-Type II, High Cholesterol, Hypertension Additional Past Medical Histor: hiatal hernia, left sided weakness post cva, chronic leg pain/edema obesity Past Surgical History: Other Additional Past Surgical Histo: hernia Alcohol Use: None Drug Use: None Adult General Chief Complaint Chief Complaint: ITCHING HPI HPI Patient is a 65 year old male presents to the emergency department with rash on his abdomen. Patient states they have been putting powder on the area without relief. Patient states the areas itch. He has an area on the lower abd size of grapefruit that is red, warm with no drainage noted. Patient does not know how his blood sugars have been running, he denies fever. Review of Systems Review of Systems Constitutional: Denies fever or chills [] Eyes: Denies change in visual acuity, redness, or eye pain [] HENT: Denies nasal congestion or sore throat [] Respiratory: Denies cough or shortness of breath [] Cardiovascular: No additional information not addressed in HPI [] GI: Denies abdominal pain, nausea, vomiting, bloody stools or diarrhea [] : Denies dysuria or hematuria [] Musculoskeletal: Denies back pain or joint pain [] Integument: rash denies skin lesions [] Neurologic: Denies headache, focal weakness or sensory changes [] Endocrine: Denies polyuria or polydipsia [] Current Medications Current Medications Current Medications Medications (Trade) Dose Ordered Sig/Dru Start Time Stop Time Status Last Admin Dose Admin Fluconazole (Diflucan) 200 mg 1X ONCE 06/10/16 01:00 06/10/16 01:01 DC 06/10/16 01:06 200 MG Potassium Chloride (KCl Oral Soln) 40 meq 1X ONCE 06/10/16 02:00 06/10/16 02:00 DC Allergies Allergies Allergies Coded Allergies Type Severity Reaction Last Updated Verified Penicillins Allergy Intermediate PT DOESN'T REMEMBER 03/21/16 Yes bacitracin Allergy Intermediate 10/25/14 Yes chlorpheniramine Allergy Intermediate 10/25/14 Yes ciprofloxacin Allergy Intermediate 10/25/14 Yes codeine Allergy Intermediate 10/25/14 Yes dextromethorphan Allergy Intermediate 10/25/14 Yes felodipine Allergy Intermediate 10/25/14 Yes influenza virus vaccine, specific Allergy Intermediate 10/25/14 Yes neomycin Allergy Intermediate 10/25/14 Yes phenylephrine Allergy Intermediate 10/25/14 Yes polymyxin B Allergy Intermediate 10/25/14 Yes sulfamethoxazole Allergy Intermediate 10/25/14 Yes trimethoprim Allergy Intermediate 10/25/14 Yes Physical Exam Physical Exam Constitutional: Well developed, well nourished, no acute distress, non-toxic appearance. [] HENT: Normocephalic, atraumatic, bilateral external ears normal, oropharynx moist, no oral exudates, nose normal. [] Eyes: PERRLA, EOMI, conjunctiva normal, no discharge. [] Neck: Normal range of motion, no tenderness, supple, no stridor. [] Cardiovascular:Heart rate regular rhythm, no murmur [] Lungs & Thorax: Bilateral breath sounds clear to auscultation [] Abdomen: Bowel sounds hypoactive, soft, no tenderness, no masses, no pulsatile masses. [] Skin: Warm, dry, no erythema, no rash. Prefers size area on the lower abdomen just under the umbilicus that is red warm and tender with no drainage or discomfort noted. Patient also noted to have red resident irritation throughout the upper part of the abdomen. Underneath the right breast appears to be an area that is moist red and raised areas. Back: No tenderness Extremities: No tenderness, no cyanosis, no clubbing, ROM intact, no edema. [] Neurologic: Alert and oriented X 3, normal motor function, normal sensory function, no focal deficits noted. [] Psychologic: Affect normal, judgement normal, mood normal. [] Current Patient Data Vital Signs Vital Signs Date Time Temp Pulse Resp B/P Pulse Ox O2 Delivery O2 Flow Rate FiO2 06/10/16 00:04 97.7 87 20 95 Room Air 97.7 Lab Values Laboratory Tests Test 06/10/16 00:58 06/10/16 01:00 Glucose (Fingerstick) 224mg/dL (70-99) H White Blood Count 10.6x10^3/uL (4.0-11.0) Red Blood Count 4.42x10^6/uL (4.30-5.70) Hemoglobin 14.6g/dL (13.0-17.5) Hematocrit 43.3% (39.0-53.0) Mean Corpuscular Volume 98fL (79-100) Mean Corpuscular Hemoglobin 33pg (25-35) Mean Corpuscular Hemoglobin Concent 34g/dL (31-37) Red Cell Distribution Width 14.1% (11.5-14.5) Platelet Count 219x10^3/uL (140-400) Neutrophils (%) (Auto) 58% (31-73) Lymphocytes (%) (Auto) 31% (24-48) Monocytes (%) (Auto) 7% (0-9) Eosinophils (%) (Auto) 4% (0-3) H Basophils (%) (Auto) 1% (0-3) Neutrophils # (Auto) 6.1x10^3uL (1.8-7.7) Lymphocytes # (Auto) 3.3x10^3/uL (1.0-4.8) Monocytes # (Auto) 0.7x10^3/uL (0.0-1.1) Eosinophils # (Auto) 0.4x10^3/uL (0.0-0.7) Basophils # (Auto) 0.1x10^3/uL (0.0-0.2) Sodium Level 138mmol/L (136-145) Potassium Level 3.4mmol/L (3.5-5.1) L Chloride Level 100mmol/L (98-107) Carbon Dioxide Level 28mmol/L (21-32) Anion Gap 10 (6-14) Blood Urea Nitrogen 27mg/dL (8-26) H Creatinine 1.1mg/dL (0.7-1.3) Estimated GFR (Cockcroft-Gault) 66.8 BUN/Creatinine Ratio 25 (6-20) H Glucose Level 250mg/dL (70-99) H Calcium Level 9.1mg/dL (8.5-10.1) Total Bilirubin 0.4mg/dL (0.2-1.0) Aspartate Amino Transferase (AST) 20U/L (15-37) Alanine Aminotransferase (ALT) 39U/L (16-63) Alkaline Phosphatase 56U/L (46-116) Total Protein 7.8g/dL (6.4-8.2) Albumin 3.1g/dL (3.4-5.0) L Albumin/Globulin Ratio 0.7 (1.0-1.7) L Laboratory Tests 06/10/16 01:00 Laboratory Tests 06/10/16 01:00 EKG EKG [] Radiology/Procedures Radiology/Procedures [] Course & Med Decision Making Course & Med Decision Making Pertinent Labs and Imaging studies reviewed. (See chart for details) [address] Valverde who will continue with patient's care. She is aware that the patient has labs pending at this time. --- Assumed care from Liz Verde at the end of her shift. I saw & examined the patient myself. Cutaneous candidiasis to abdomen & under breasts, scattered wounds without cellulitis. Labs show hyperglycemia & hypokalemia. Counseled to take diabetes medications as prescribe, regular accuchecks. Gave prescription for nystatin powder (he was unsure what powder he had been using & not included on his med list) as well as mupirocin ointment, keep skin clean & dry. Follow up with primary care doctor in 2-3 days. Come back for high fever , spreading erythema/warmth/swelling, any otherwise worsening condition. Discharged home in stable condition. Daja Davis MD [] Dragon Disclaimer Dragon Disclaimer This electronic medical record was generated, in whole or in part, using a voice recognition dictation system. Departure Departure Impression: Primary Impression: Cutaneous candidiasis Disposition: HOME, SELF-CARE Condition: STABLE Referrals: NO PCP (PCP) Patient Instructions: Cutaneous Candidiasis Additional Instructions: You were seen in the emergency department today for yeast infection of the skin. Please apply nystatin powder to the affected red areas - this may be the powder you are already using; if so, no need to fill prescription & continue use. Apply mupirocin to sores on skin. Follow up with primary care doctor in 2 -3 days if not improving. Come back for high fever, spreading redness/warmth/ swelling, any otherwise worsening condition. Be sure to check blood glucose at home as it was high, > 200, today. Scripts Mupirocin (Mupirocin Ointment)22 Gm Oint...g.1 Sudheer TP TID WOUND CARE #1 TUBE Prov:DAJA DAVIS MD 06/10/16 Nystatin 15 Gm Powder1 Sudheer TP BID #1 BOTTLE Prov:DAJA DAVIS MD 06/10/16 LIZ VERDE APRN June 10, 2016 00:36 DAJA DAVIS MD June 10, 2016 01:35
[2016-06-10] MEDS ORDERED: FLUCONAZOLE 100 MG TABLET. PO ONE (01:00)
[2016-06-10 01:12] LABS: BASO # 0.1 x10^3/uL (0.0-0.2); BASO % 1 % (0-3); EOS % 4 % (0-3); HEMATOCRIT 43.3 % (39.0-53.0); HEMOGLOBIN 14.6 g/dL (13.0-17.5); LYMPH # 3.3 x10^3/uL (1.0-4.8); LYMPH % 31 % (24-48); MEAN CORPUSCULAR HEMOGLOBIN 33 pg (25-35); MEAN CORPUSCULAR HGB CONC 34 g/dL (31-37); MEAN CORPUSCULAR VOLUME 98 fL (79-100); MONO % 7 % (0-9); NEUT % 58 % (31-73); PLATELET COUNT 219 x10^3/uL (140-400); RED BLOOD COUNT 4.42 x10^6/uL (4.30-5.70); RED CELL DISTRIBUTION WIDTH 14.1 % (11.5-14.5); WHITE BLOOD COUNT 10.6 x10^3/uL (4.0-11.0)
[2016-06-10 01:19] LABS: CALCIUM 9.1 mg/dL (8.5-10.1); CREATININE 1.1 mg/dL (0.7-1.3); GFR 66.8; POTASSIUM 3.4 mmol/L (3.5-5.1)
[2016-06-10 01:25] LABS: ALBUMIN 3.1 g/dL (3.4-5.0); ALBUMIN/GLOBULIN RATIO 0.7 (1.0-1.7); TOTAL BILIRUBIN 0.4 mg/dL (0.2-1.0); TOTAL PROTEIN 7.8 g/dL (6.4-8.2)
[2016-06-10] MEDS ORDERED: NYST15PO9 TP (01:35)
[2016-06-10] MEDS ORDERED: MUPI22OI2 TP (01:35)
[2016-06-10] MEDS ORDERED: POTASSIUM CHLORIDE 20 MEQ/15 ML ORAL LIQUID. PO ONE (02:00)
== END 2016-06-10 01:58 | disposition home or self-care (01) ==
LOC: ER 23:48
DX: B37.2 Candidiasis of skin and nail (principal); E87.6 Hypokalemia; E11.65 Type 2 diabetes mellitus with hyperglycemia; J44.9 Chronic obstructive pulmonary disease, unspecified; E78.00 Pure hypercholesterolemia, unspecified; I10 Essential (primary) hypertension; G89.29 Other chronic pain; E66.9 Obesity, unspecified; Z88.1 Allergy status to other antibiotic agents; Z88.5 Allergy status to narcotic agent; Z88.0 Allergy status to penicillin; Z88.2 Allergy status to sulfonamides; Z88.7 Allergy status to serum and vaccine; Z88.8 Allergy status to other drugs, medicaments and biological substances; Z86.73 Personal history of transient ischemic attack (TIA), and cerebral infarction without residual deficits; Z68.41 Body mass index [BMI] 40.0-44.9, adult
CPT/HCPCS: 36415; 80053; 82947; 85027; 99284

== ENCOUNTER 2016-11-24 09:21 | Inpatient (IN) | payer OTHER, MEDICAID ==
[~2016-11-24] VITALS: Ht 162.6 cm; Wt 120.2 kg
[~2016-11-24 09:21] MED LIST changes: +MUPI22OI2 TP; +NYST15PO9 TP
--- NOTE | 2016-11-24 09:28 | PHYS DOC ---
Past Medical History Past Medical History: COPD, CVA, Diabetes-Type II, High Cholesterol, Hypertension Additional Past Medical Histor: hiatal hernia, left sided weakness post cva, chronic leg pain/edema obesity Past Surgical History: Other Additional Past Surgical Histo: hernia Alcohol Use: None Drug Use: None Adult General Chief Complaint Chief Complaint: COUGH HPI HPI Patient is a 66 year old male who presents with shortness breath and chest pain. He states his symptoms been going on for last several days. He's been using inhalers and having a mild productive cough. He states he's having pain substernal area that does not radiate. He does not feel nausea or become diaphoretic with this pain. He states it's constant since made worse when he coughs. He states that he has bedbugs at home and he's been sleeping in his car because he can't afford to get them treated in his apartment complex we'll treat them. He has lower extremity edema because he says he can't raise his legs up when he sleeping in his car. He states he hasn't smoked for a week because he can't afford to buy cigarettes currently. Review of Systems Review of Systems Constitutional: Denies fever or chills [] Eyes: Denies change in visual acuity, redness, or eye pain [] HENT: Denies nasal congestion or sore throat [] Respiratory: Positive for cough and shortness of breath [] Cardiovascular: No additional information not addressed in HPI [] GI: Denies abdominal pain, nausea, vomiting, bloody stools or diarrhea [] : Denies dysuria or hematuria [] Musculoskeletal: Denies back pain or joint pain [] Integument: Denies rash or skin lesions [] Neurologic: Denies headache, focal weakness or sensory changes [] Endocrine: Denies polyuria or polydipsia [] Current Medications Current Medications Current Medications Medications (Trade) Dose Ordered Sig/Dru Start Time Stop Time Status Last Admin Dose Admin Albuterol/ Ipratropium (Duoneb) 3 ml 1X ONCE 11/24/16 09:45 11/24/16 09:46 DC 11/24/16 09:54 3 ML Azithromycin 250 ml @ 250 mls/hr 1X ONCE 11/24/16 10:45 11/24/16 11:44 11/24/16 10:58 250 MLS/HR Methylprednisolone Sodium Succinate (SOLU-Medrol 125MG VIAL) 125 mg 1X ONCE 11/24/16 10:00 11/24/16 10:01 DC 11/24/16 10:12 125 MG Allergies Allergies Allergies Coded Allergies Type Severity Reaction Last Updated Verified Penicillins Allergy Intermediate PT DOESN'T REMEMBER 03/21/16 Yes bacitracin Allergy Intermediate 10/25/14 Yes chlorpheniramine Allergy Intermediate 10/25/14 Yes ciprofloxacin Allergy Intermediate 10/25/14 Yes codeine Allergy Intermediate 10/25/14 Yes dextromethorphan Allergy Intermediate 10/25/14 Yes felodipine Allergy Intermediate 10/25/14 Yes influenza virus vaccine, specific Allergy Intermediate 10/25/14 Yes neomycin Allergy Intermediate 10/25/14 Yes phenylephrine Allergy Intermediate 10/25/14 Yes polymyxin B Allergy Intermediate 10/25/14 Yes sulfamethoxazole Allergy Intermediate 10/25/14 Yes trimethoprim Allergy Intermediate 10/25/14 Yes Physical Exam Physical Exam Constitutional: Well developed, well nourished, no acute distress, non-toxic appearance. [] HENT: Normocephalic, atraumatic, bilateral external ears normal, oropharynx moist, no oral exudates, nose normal. [] Eyes: PERRLA, EOMI, conjunctiva normal, no discharge. [] Neck: Normal range of motion, no tenderness, supple, no stridor. [] Cardiovascular:Heart rate regular rhythm, no murmur [] Lungs & Thorax: Moderate expiratory wheezing bilaterally with decreased breath sounds at the bases Abdomen: Bowel sounds normal, soft, no tenderness, no masses, no pulsatile masses. [] Skin: Warm, dry, no erythema, no rash. [] Back: No tenderness, no CVA tenderness. [] Extremities: No tenderness, no cyanosis, no clubbing, ROM intact, no edema. [] Neurologic: Alert and oriented X 3, normal motor function, normal sensory function, no focal deficits noted. [] Psychologic: Affect normal, judgement normal, mood normal. [] Current Patient Data Vital Signs Vital Signs Date Time Temp Pulse Resp B/P (MAP) Pulse Ox O2 Delivery O2 Flow Rate FiO2 11/24/16 09:23 98.5 100 18 166/84 (111) 94 Room Air 98.5 Lab Values Laboratory Tests Test 11/24/16 10:05 White Blood Count 5.3 x10^3/uL (4.0-11.0) Red Blood Count 4.01 x10^6/uL (4.30-5.70) L Hemoglobin 13.3 g/dL (13.0-17.5) Hematocrit 39.1 % (39.0-53.0) Mean Corpuscular Volume 97 fL (79-100) Mean Corpuscular Hemoglobin 33 pg (25-35) Mean Corpuscular Hemoglobin Concent 34 g/dL (31-37) Red Cell Distribution Width 13.9 % (11.5-14.5) Platelet Count 212 x10^3/uL (140-400) Neutrophils (%) (Auto) 68 % (31-73) Lymphocytes (%) (Auto) 21 % (24-48) L Monocytes (%) (Auto) 7 % (0-9) Eosinophils (%) (Auto) 3 % (0-3) Basophils (%) (Auto) 1 % (0-3) Neutrophils # (Auto) 3.6 x10^3uL (1.8-7.7) Lymphocytes # (Auto) 1.1 x10^3/uL (1.0-4.8) Monocytes # (Auto) 0.4 x10^3/uL (0.0-1.1) Eosinophils # (Auto) 0.1 x10^3/uL (0.0-0.7) Basophils # (Auto) 0.1 x10^3/uL (0.0-0.2) Sodium Level 140 mmol/L (136-145) Potassium Level 3.9 mmol/L (3.5-5.1) Chloride Level 104 mmol/L (98-107) Carbon Dioxide Level 29 mmol/L (21-32) Anion Gap 7 (6-14) Blood Urea Nitrogen 11 mg/dL (8-26) Creatinine 0.8 mg/dL (0.7-1.3) Estimated GFR (Cockcroft-Gault) 96.1 Glucose Level 162 mg/dL (70-99) H Calcium Level 8.6 mg/dL (8.5-10.1) Total Bilirubin 0.9 mg/dL (0.2-1.0) Direct Bilirubin 0.2 mg/dL (0.0-0.2) Aspartate Amino Transferase (AST) 21 U/L (15-37) Alanine Aminotransferase (ALT) 32 U/L (16-63) Alkaline Phosphatase 63 U/L (46-116) Creatine Kinase 115 U/L (39-308) Creatine Kinase MB (Mass) 1.1 ng/mL (0.0-3.6) Creatine Kinase MB Relative Index 1.0 % (0-4) Troponin I Quantitative < 0.017 ng/mL (0.000-0.055) HK-Dqq-[id number]-Type Natriuretic Peptide 101 pg/mL (0-124) Total Protein 7.4 g/dL (6.4-8.2) Albumin 2.9 g/dL (3.4-5.0) L Laboratory Tests 11/24/16 10:05 Laboratory Tests 11/24/16 10:05 EKG EKG EKG shows sinus rhythm with rate of [address] elevations or concerning T-wave inversions, normal axis, QTC 433 ms, as interpreted by me. Radiology/Procedures Radiology/Procedures [facility] [address] [place] [address] IMAGING REPORT Signed PATIENT: DEMETRICE HOWE ACCOUNT: [id number] : 1950 LOCATION: ER AGE: 66 SEX: M EXAM STATUS: PRE ER ORD. PHYSICIAN: SIMONE STERLING MD REASON: soa PROCEDURE: CHEST PA & LATERAL 2 view CXR: Clinical indications: Shortness of breath and cough. Comparison: April 25, 2015. Findings: Chronic bibasilar scarring is seen. No new lung consolidation or pulmonary edema or pleural effusion or pneumothorax is seen. No acute lung infiltrate or pleural effusion or pulmonary edema or lung mass or pneumothorax is seen. The heart size, pulmonary vasculature, mediastinum and both lg are unremarkable. The osseous structures appear intact. Impression: No new radiographic abnormality is seen. DICTATED and SIGNED BY: SHUBHAM CHURCH MD DATE: 11/24/16 0953 CC: SIMONE STERLING MD; UNKNOWN PCP NAME ~ Impressions: COPD exacerbation Chest pain poor living conditions Course & Med Decision Making Course & Med Decision Making Pertinent Labs and Imaging studies reviewed. (See chart for details) EKG, chest x-ray, basic labs nonacute at this time. Patient be admitted Dr. Fall with pulmonary and cards consultation. Patient will also need social work consultation. Patient's in stable condition at this time. Dragon Disclaimer Dragon Disclaimer This electronic medical record was generated, in whole or in part, using a voice recognition dictation system. Departure Departure Impression: Primary Impression: COPD exacerbation Disposition: ADMITTED INPATIENT Admitting Physician: Lala Ceron Condition: STABLE Referrals: UNKNOWN PCP NAME (PCP) SIMONE STERLING MD Nov 24, 2016 09:28
[2016-11-24] MEDS ORDERED: IPRATRPIUM/ALBUTEROL 0.5/2.5MG 3 ML NEBU. NEB ONE (09:45)
--- NOTE | 2016-11-24 09:58 | RAD ---
2 view CXR: Clinical indications: Shortness of breath and cough. Comparison: April 25, 2015. Findings: Chronic bibasilar scarring is seen. No new lung consolidation or pulmonary edema or pleural effusion or pneumothorax is seen. No acute lung infiltrate or pleural effusion or pulmonary edema or lung mass or pneumothorax is seen. The heart size, pulmonary vasculature, mediastinum and both lg are unremarkable. The osseous structures appear intact. Impression: No new radiographic abnormality is seen.
[2016-11-24] MEDS ORDERED: methylPREDNISolone SOD SUCC PF 125 MG/2 ML VIAL. IV ONE (10:00)
--- NOTE | 2016-11-24 10:02 | EKG ---
[facility] [address] [place] [address] Test Date: 2016-11-24 Test Time: 09:59:18 Pat Name: DEMETRICE HOWE Department: Room: Gender: M [employer] Machine: : 1950 Requested By: SIMONE STERLING Order Number: [id number] Reading MD: Juany Guerrero Measurements Intervals [place] Rate: 97 P: 47 NV: 174 QRS: 10 QRSD: 66 T: 40 QT: 338 QTc: 433 Interpretive Statements SINUS RHYTHM NORMAL ECG Electronically Signed On 11-24-2016 19:36:11 CDT by Juany Guerrero
[2016-11-24 10:15] LABS: BASO # 0.1 x10^3/uL (0.0-0.2); BASO % 1 % (0-3); EOS % 3 % (0-3); HEMATOCRIT 39.1 % (39.0-53.0); HEMOGLOBIN 13.3 g/dL (13.0-17.5); LYMPH # 1.1 x10^3/uL (1.0-4.8); LYMPH % 21 % (24-48); MEAN CORPUSCULAR HEMOGLOBIN 33 pg (25-35); MEAN CORPUSCULAR HGB CONC 34 g/dL (31-37); MEAN CORPUSCULAR VOLUME 97 fL (79-100); MONO % 7 % (0-9); NEUT % 68 % (31-73); PLATELET COUNT 212 x10^3/uL (140-400); RED BLOOD COUNT 4.01 x10^6/uL (4.30-5.70); RED CELL DISTRIBUTION WIDTH 13.9 % (11.5-14.5); WHITE BLOOD COUNT 5.3 x10^3/uL (4.0-11.0)
[2016-11-24 10:24] LABS: CALCIUM 8.6 mg/dL (8.5-10.1); CREATININE 0.8 mg/dL (0.7-1.3); GFR 96.1; POTASSIUM 3.9 mmol/L (3.5-5.1)
[2016-11-24 10:30] LABS: ALBUMIN 2.9 g/dL (3.4-5.0); DIRECT BILIRUBIN 0.2 mg/dL (0.0-0.2); TOTAL BILIRUBIN 0.9 mg/dL (0.2-1.0); TOTAL PROTEIN 7.4 g/dL (6.4-8.2)
[2016-11-24 10:37] LABS: CKMB MASS 1.1 ng/mL (0.0-3.6)
[2016-11-24] MEDS ORDERED: AZITHRMYCN 500MG IVPB FOR OMNI 250 ML IV ONE (10:45)
[2016-11-24] MEDS ORDERED: ONDANSETRON PF 4 MG/2 ML VIAL. IV PRN ×2 (11:15→12:00)
[2016-11-24] MEDS ORDERED: HYDROcodone/APAP 5/325MG 1 TAB TABLET PO PRN (12:00)
[2016-11-24] MEDS ORDERED: BENZONATATE 100 MG CAPSULE. PO PRN (12:00)
[2016-11-24] MEDS ORDERED: LABETALOL 20 MG/4 ML DISP.SYRIN. IVP PRN (12:00)
[2016-11-24] MEDS ORDERED: ACETAMINOPHEN 500 MG TABLET PO PRN (12:00)
[2016-11-24] MEDS ORDERED: KETOROLAC 15 MG/ML VIAL. IV PRN (12:00)
[2016-11-24 12:30] VITALS: BP 183/91
[2016-11-24] MEDS: NYSTATIN TOPICAL POWDER 15GM BOTTLE. TP SCH ×2 (12:30→19:59)
[2016-11-24] MEDS: GABAPENTIN 300 MG CAPSULE. PO SCH (12:59)
[2016-11-24] MEDS: LISINOPRIL 10 MG TABLET PO SCH (12:59)
[2016-11-24] MEDS: metFORMIN 500 MG TABLET PO SCH ×2 (12:59→16:51)
[2016-11-24] MEDS ORDERED: MUPIROCIN 2 % NASAL OINTMENT 22GM TUBE. NS SCH (14:00)
[2016-11-24 15:09] VITALS: BP 153/94
[2016-11-24] MEDS: MORPHINE SULFATE 2 MG/ML DISP.SYRIN. IV PRN ×2 (17:00→20:32)
--- NOTE | 2016-11-24 18:19 | PDOC1 ---
History and Physical Date of Admission Date of Admission DATE: 11/24/16 TIME: 18:13 Identification/Chief Complaint Chief Complaint abd pain, soa Problems: Source Source: Caregiver, Chart review, Patient History of Present Illness History of Present Illness 66 y.o obese male with some mental delay, lives in homeless detention, has a brother which he thinks might be able to take him in, has been living in the detention for 4 mos now, admitted bec of SOA, copd exacerbation with neg CXR but mild leukocytosis on pred 10 chronically at home. he ambulates with a cane. BUt actually on my enocunter he claims he had abd pain and emesis so he came,. NOw he is eating dinner voraciously, some mild wheezing appreciable on auscultation, claims he is on O2 2 LNC at home. He was tacycardic, tachypneic on arrival. albumin 2.9. BP was high. Never smoker Past Medical History Cardiovascular: HTN Pulmonary: Asthma, Bronchitis Past Surgical History Past Surgical History: No pertinent history Family History Family History: No Significant, Family History Unknown Social History Smoke: No ALCOHOL: none Drugs: None Current Problem List Problem List Problems Medical Problems: (1) COPD exacerbation Status: Acute Problems: Current Medications Current Medications Current Medications Albuterol/ Ipratropium (Duoneb) 3 ml 1X ONCE NEB Last administered on 09:54; Start 11/24/16 at 09:45; Stop 11/24/16 at 09:46; Status DC Methylprednisolone Sodium Succinate (SOLU-Medrol 125MG VIAL) 125 mg 1X ONCE IV Last administered on 11/24/16 10:12; Start 11/24/16 at 10:00; Stop at 10:01; Status DC Azithromycin 250 ml @ 250 mls/hr 1X ONCE IV Last administered on 11/24/16 10:58; Start 11/24/16 at 10:45; Stop 11/24/16 at 11:44; Status DC Ondansetron HCl (Zofran) 4 mg PRN Q8HRS PRN IV NAUSEA/VOMITING; Start at 11:15; Stop 11/24/16 at 11:54; Status DC Albuterol/ Ipratropium (Duoneb) 3 ml RTQID NEB ; Start 11/24/16 at 13:00 Ondansetron HCl (Zofran) 4 mg PRN Q6HRS PRN IV NAUSEA/VOMITING; Start at 12:00; Stop 11/25/16 at 11:59 Acetaminophen (Tylenol) 500 mg PRN Q6HRS PRN PO MILD PAIN / TEMP; Start at 12:00 Guaifenesin (Robitussin Dm) 10 ml PRN Q6HRS PRN PO COUGH; Start 11/24/16 at 12 :00 Labetalol HCl (Normodyne) 10 mg PRN Q2HR PRN IVP HYPERTENSION, SEE COMMENTS; Start 11/24/16 at 12:00 Acetaminophen/ Hydrocodone Bitart (Lortab 5/325) 1 tab PRN Q4HRS PRN PO PAIN; Start 11/24/16 at 12:00 Benzonatate (Tessalon Perle) 100 mg PRN TID PRN PO COUGH; Start 11/24/16 at 12 :00 Famotidine (Pepcid) 20 mg BID PO ; Start 11/24/16 at 21:00 Lisinopril (Prinivil) 10 mg DAILY PO Last administered on 11/24/16 12:59; Start 11/24/16 at 12:30 Metformin HCl (Glucophage) 500 mg BIDWMEALS PO Last administered on 11/24/16 16:51; Start 11/24/16 at 12:30 Montelukast Sodium (Singulair) 10 mg QHS PO ; Start 11/24/16 at 21:00 Mupirocin (Bactroban) 1 sudheer TID NS ; Start 11/24/16 at 14:00; Status UNV Nystatin (Nystop) 1 sudheer BID TP ; Start 11/24/16 at 12:30 Gabapentin (Neurontin) 600 mg DAILY08 PO Last administered on 11/24/16 12:59 ; Start 11/24/16 at 12:30 Ketorolac Tromethamine (Toradol) 15 mg PRN Q6HRS PRN IV PAIN; Start 11/24/16 at 12:00; Stop 11/29/16 at 11:59 Morphine Sulfate 1 mg PRN Q2HR PRN IV PAIN Last administered on 11/24/16 17: 00; Start 11/24/16 at 12:00 Active Scripts Active Mupirocin Ointment (Mupirocin) 22 Gm Oint...g. 1 Sudheer TP TID Nystatin 15 Gm Powder 1 Sudheer TP BID Prednisone 10 Mg Tablet 10 Mg PO DAILY Montelukast Sodium Tablet (Montelukast Sodium) 10 Mg Tablet 10 Mg PO QHS [Hydrocodone/Chlorphen Polis] 5 ML Karla.er.12h 5 Ml PO PRN Q12HR PRN Proair Hfa Inhaler (Albuterol Sulfate) 8.5 Gm Hfa.aer.ad 1 Puff INH PRN Q6HRS PRN Levaquin (Levofloxacin) 750 Mg Tablet 750 Mg PO DAILY Tessalon Perle (Benzonatate) 100 Mg Capsule 100 Mg PO TID PRN Reported Metformin Hcl 500 Mg Tablet 1 Tab PO BID Gabapentin 600 Mg Tablet 600 Mg PO DAILY08 [Glucophage] Pepcid (Famotidine) 20 Mg Tablet 20 Mg PO BID Lisinopril 10 Mg Tablet 10 Mg PO Allergies Allergies: Coded Allergies: Penicillins (Verified Allergy, Intermediate, PT DOESN'T REMEMBER, 03/21/16) bacitracin (Verified Allergy, Intermediate, 10/25/14) chlorpheniramine (Verified Allergy, Intermediate, 10/25/14) ciprofloxacin (Verified Allergy, Intermediate, 10/25/14) codeine (Verified Allergy, Intermediate, 10/25/14) dextromethorphan (Verified Allergy, Intermediate, 10/25/14) felodipine (Verified Allergy, Intermediate, 10/25/14) influenza virus vaccine, specific (Verified Allergy, Intermediate, 10/25/14 ) neomycin (Verified Allergy, Intermediate, 10/25/14) phenylephrine (Verified Allergy, Intermediate, 10/25/14) polymyxin B (Verified Allergy, Intermediate, 10/25/14) sulfamethoxazole (Verified Allergy, Intermediate, 10/25/14) trimethoprim (Verified Allergy, Intermediate, 10/25/14) ROS Review of System abd pain, nausea earlier, none now, SOA< no fevers, no sputum changes, no CP, no weight loss Physical Exam General: Alert, Oriented X3, Cooperative, No acute distress HEENT: Atraumatic, PERRLA Lungs: Normal air movement, Other (wheezing) Heart: S1S2, RRR, no thrills, no rubs, no gallops, no murmurs Cardiovascular: S1, S2 Breasts: Normal, Rt breast nml w/o mass, Lt breast nml w/o mass, Nipples normal Male Genitals Exam: normal genitalia, normal prostate Rectal Exam: not examined PELVIC: Nml ext genitalia Extremities: No clubbing, No cyanosis, No edema, Normal pulses, No tenderness/ swelling Skin: No rashes, No breakdown, No significant lesion Neuro: Normal gait, Normal speech, Strength at 5/5 X4 ext, Normal tone, Sensation intact, Cranial nerves 3-12 NL, Reflexes 2+ Psych/Mental Status: Mental status NL, Mood NL Vitals Vitals Vital Signs Date Time Temp Pulse Resp B/P (MAP) Pulse Ox O2 Delivery O2 Flow Rate FiO2 11/24/16 17:00 96 Nasal Cannula 2.0 11/24/16 15:09 98.3 89 153/94 (113) 98.3 11/24/16 12:30 15 Labs Labs Laboratory Tests Test 11/24/16 10:05 11/24/16 16:50 White Blood Count 5.3 x10^3/uL (4.0-11.0) Red Blood Count 4.01 x10^6/uL (4.30-5.70) Hemoglobin 13.3 g/dL (13.0-17.5) Hematocrit 39.1 % (39.0-53.0) Mean Corpuscular Volume 97 fL (79-100) Mean Corpuscular Hemoglobin 33 pg (25-35) Mean Corpuscular Hemoglobin Concent 34 g/dL (31-37) Red Cell Distribution Width 13.9 % (11.5-14.5) Platelet Count 212 x10^3/uL (140-400) Neutrophils (%) (Auto) 68 % (31-73) Lymphocytes (%) (Auto) 21 % (24-48) Monocytes (%) (Auto) 7 % (0-9) Eosinophils (%) (Auto) 3 % (0-3) Basophils (%) (Auto) 1 % (0-3) Neutrophils # (Auto) 3.6 x10^3uL (1.8-7.7) Lymphocytes # (Auto) 1.1 x10^3/uL (1.0-4.8) Monocytes # (Auto) 0.4 x10^3/uL (0.0-1.1) Eosinophils # (Auto) 0.1 x10^3/uL (0.0-0.7) Basophils # (Auto) 0.1 x10^3/uL (0.0-0.2) Sodium Level 140 mmol/L (136-145) Potassium Level 3.9 mmol/L (3.5-5.1) Chloride Level 104 mmol/L (98-107) Carbon Dioxide Level 29 mmol/L (21-32) Anion Gap 7 (6-14) Blood Urea Nitrogen 11 mg/dL (8-26) Creatinine 0.8 mg/dL (0.7-1.3) Estimated GFR (Cockcroft-Gault) 96.1 Glucose Level 162 mg/dL (70-99) Calcium Level 8.6 mg/dL (8.5-10.1) Total Bilirubin 0.9 mg/dL (0.2-1.0) Direct Bilirubin 0.2 mg/dL (0.0-0.2) Aspartate Amino Transf (AST/SGOT) 21 U/L (15-37) Alanine Aminotransferase (ALT/SGPT) 32 U/L (16-63) Alkaline Phosphatase 63 U/L (46-116) Creatine Kinase 115 U/L (39-308) Creatine Kinase MB (Mass) 1.1 ng/mL (0.0-3.6) Creatine Kinase MB Relative Index 1.0 % (0-4) Troponin I Quantitative < 0.017 ng/mL (0.000-0.055) < 0.017 ng/mL (0.000-0.055) YI-Mqs-P-Type Natriuretic Peptide 101 pg/mL (0-124) Total Protein 7.4 g/dL (6.4-8.2) Albumin 2.9 g/dL (3.4-5.0) Laboratory Tests Test 11/24/16 10:05 11/24/16 16:50 White Blood Count 5.3 x10^3/uL (4.0-11.0) Red Blood Count 4.01 x10^6/uL (4.30-5.70) Hemoglobin 13.3 g/dL (13.0-17.5) Hematocrit 39.1 % (39.0-53.0) Mean Corpuscular Volume 97 fL (79-100) Mean Corpuscular Hemoglobin 33 pg (25-35) Mean Corpuscular Hemoglobin Concent 34 g/dL (31-37) Red Cell Distribution Width 13.9 % (11.5-14.5) Platelet Count 212 x10^3/uL (140-400) Neutrophils (%) (Auto) 68 % (31-73) Lymphocytes (%) (Auto) 21 % (24-48) Monocytes (%) (Auto) 7 % (0-9) Eosinophils (%) (Auto) 3 % (0-3) Basophils (%) (Auto) 1 % (0-3) Neutrophils # (Auto) 3.6 x10^3uL (1.8-7.7) Lymphocytes # (Auto) 1.1 x10^3/uL (1.0-4.8) Monocytes # (Auto) 0.4 x10^3/uL (0.0-1.1) Eosinophils # (Auto) 0.1 x10^3/uL (0.0-0.7) Basophils # (Auto) 0.1 x10^3/uL (0.0-0.2) Sodium Level 140 mmol/L (136-145) Potassium Level 3.9 mmol/L (3.5-5.1) Chloride Level 104 mmol/L (98-107) Carbon Dioxide Level 29 mmol/L (21-32) Anion Gap 7 (6-14) Blood Urea Nitrogen 11 mg/dL (8-26) Creatinine 0.8 mg/dL (0.7-1.3) Estimated GFR (Cockcroft-Gault) 96.1 Glucose Level 162 mg/dL (70-99) Calcium Level 8.6 mg/dL (8.5-10.1) Total Bilirubin 0.9 mg/dL (0.2-1.0) Direct Bilirubin 0.2 mg/dL (0.0-0.2) Aspartate Amino Transf (AST/SGOT) 21 U/L (15-37) Alanine Aminotransferase (ALT/SGPT) 32 U/L (16-63) Alkaline Phosphatase 63 U/L (46-116) Creatine Kinase 115 U/L (39-308) Creatine Kinase MB (Mass) 1.1 ng/mL (0.0-3.6) Creatine Kinase MB Relative Index 1.0 % (0-4) Troponin I Quantitative < 0.017 ng/mL (0.000-0.055) < 0.017 ng/mL (0.000-0.055) BS-Jen-F-Type Natriuretic Peptide 101 pg/mL (0-124) Total Protein 7.4 g/dL (6.4-8.2) Albumin 2.9 g/dL (3.4-5.0) VTE Prophylaxis Ordered VTE Prophylaxis Devices: Yes VTE Pharmacological Prophylaxi: Yes Assessment/Plan Assessment/Plan 1. COPD exacerbation, acute bronchitis - no PNA on CXR 2. CHronic pred use 3. SIRS POA, no organ dysfcn maybe bronchitis in origin - was on PO levaquin at home 4. Reported bed bug bites 5. HOmeless 6. Mental delay 7. NAusea, abd pain - seems to have reoslved PLAN: Admit Supportive meds Pred PO Nebs cough med SW for homeless detention Resume home meds PT/OT Seen in ANGELA Mota MD Nov 24, 2016 18:19
[2016-11-24 19:00] VITALS: BP 150/90
--- NOTE | 2016-11-24 19:54 | PDOC ---
PULMONARY PROGRESS NOTES Vitals Vital Signs Date Time Temp Pulse Resp B/P (MAP) Pulse Ox O2 Delivery O2 Flow Rate FiO2 11/24/16 17:30 96 Nasal Cannula 2.0 11/24/16 15:09 98.3 89 153/94 (113) 98.3 11/24/16 12:30 15 General: Alert HEENT: Other Lungs: Clear Cardiovascular: S1, S2 Abdomen: Soft, Non-tender Extremities: Other Labs Laboratory Tests Test 11/24/16 10:05 11/24/16 16:50 White Blood Count 5.3 x10^3/uL (4.0-11.0) Red Blood Count 4.01 x10^6/uL (4.30-5.70) Hemoglobin 13.3 g/dL (13.0-17.5) Hematocrit 39.1 % (39.0-53.0) Mean Corpuscular Volume 97 fL (79-100) Mean Corpuscular Hemoglobin 33 pg (25-35) Mean Corpuscular Hemoglobin Concent 34 g/dL (31-37) Red Cell Distribution Width 13.9 % (11.5-14.5) Platelet Count 212 x10^3/uL (140-400) Neutrophils (%) (Auto) 68 % (31-73) Lymphocytes (%) (Auto) 21 % (24-48) Monocytes (%) (Auto) 7 % (0-9) Eosinophils (%) (Auto) 3 % (0-3) Basophils (%) (Auto) 1 % (0-3) Neutrophils # (Auto) 3.6 x10^3uL (1.8-7.7) Lymphocytes # (Auto) 1.1 x10^3/uL (1.0-4.8) Monocytes # (Auto) 0.4 x10^3/uL (0.0-1.1) Eosinophils # (Auto) 0.1 x10^3/uL (0.0-0.7) Basophils # (Auto) 0.1 x10^3/uL (0.0-0.2) Sodium Level 140 mmol/L (136-145) Potassium Level 3.9 mmol/L (3.5-5.1) Chloride Level 104 mmol/L (98-107) Carbon Dioxide Level 29 mmol/L (21-32) Anion Gap 7 (6-14) Blood Urea Nitrogen 11 mg/dL (8-26) Creatinine 0.8 mg/dL (0.7-1.3) Estimated GFR (Cockcroft-Gault) 96.1 Glucose Level 162 mg/dL (70-99) Calcium Level 8.6 mg/dL (8.5-10.1) Total Bilirubin 0.9 mg/dL (0.2-1.0) Direct Bilirubin 0.2 mg/dL (0.0-0.2) Aspartate Amino Transf (AST/SGOT) 21 U/L (15-37) Alanine Aminotransferase (ALT/SGPT) 32 U/L (16-63) Alkaline Phosphatase 63 U/L (46-116) Creatine Kinase 115 U/L (39-308) Creatine Kinase MB (Mass) 1.1 ng/mL (0.0-3.6) Creatine Kinase MB Relative Index 1.0 % (0-4) Troponin I Quantitative < 0.017 ng/mL (0.000-0.055) < 0.017 ng/mL (0.000-0.055) KZ-Yif-I-Type Natriuretic Peptide 101 pg/mL (0-124) Total Protein 7.4 g/dL (6.4-8.2) Albumin 2.9 g/dL (3.4-5.0) Laboratory Tests Test 11/24/16 10:05 11/24/16 16:50 White Blood Count 5.3 x10^3/uL (4.0-11.0) Red Blood Count 4.01 x10^6/uL (4.30-5.70) Hemoglobin 13.3 g/dL (13.0-17.5) Hematocrit 39.1 % (39.0-53.0) Mean Corpuscular Volume 97 fL (79-100) Mean Corpuscular Hemoglobin 33 pg (25-35) Mean Corpuscular Hemoglobin Concent 34 g/dL (31-37) Red Cell Distribution Width 13.9 % (11.5-14.5) Platelet Count 212 x10^3/uL (140-400) Neutrophils (%) (Auto) 68 % (31-73) Lymphocytes (%) (Auto) 21 % (24-48) Monocytes (%) (Auto) 7 % (0-9) Eosinophils (%) (Auto) 3 % (0-3) Basophils (%) (Auto) 1 % (0-3) Neutrophils # (Auto) 3.6 x10^3uL (1.8-7.7) Lymphocytes # (Auto) 1.1 x10^3/uL (1.0-4.8) Monocytes # (Auto) 0.4 x10^3/uL (0.0-1.1) Eosinophils # (Auto) 0.1 x10^3/uL (0.0-0.7) Basophils # (Auto) 0.1 x10^3/uL (0.0-0.2) Sodium Level 140 mmol/L (136-145) Potassium Level 3.9 mmol/L (3.5-5.1) Chloride Level 104 mmol/L (98-107) Carbon Dioxide Level 29 mmol/L (21-32) Anion Gap 7 (6-14) Blood Urea Nitrogen 11 mg/dL (8-26) Creatinine 0.8 mg/dL (0.7-1.3) Estimated GFR (Cockcroft-Gault) 96.1 Glucose Level 162 mg/dL (70-99) Calcium Level 8.6 mg/dL (8.5-10.1) Total Bilirubin 0.9 mg/dL (0.2-1.0) Direct Bilirubin 0.2 mg/dL (0.0-0.2) Aspartate Amino Transf (AST/SGOT) 21 U/L (15-37) Alanine Aminotransferase (ALT/SGPT) 32 U/L (16-63) Alkaline Phosphatase 63 U/L (46-116) Creatine Kinase 115 U/L (39-308) Creatine Kinase MB (Mass) 1.1 ng/mL (0.0-3.6) Creatine Kinase MB Relative Index 1.0 % (0-4) Troponin I Quantitative < 0.017 ng/mL (0.000-0.055) < 0.017 ng/mL (0.000-0.055) GS-Uvn-V-Type Natriuretic Peptide 101 pg/mL (0-124) Total Protein 7.4 g/dL (6.4-8.2) Albumin 2.9 g/dL (3.4-5.0) Medications Active Scripts Medications Dose Route/Sig Max Daily Dose Days Date Category Mupirocin Ointment (Mupirocin) 22 Gm Oint...g. 1 Sudheer TP TID 06/10/16 Rx Nystatin 15 Gm Powder 1 Sudheer TP BID 06/10/16 Rx Prednisone 10 Mg Tablet 10 Mg PO DAILY 03/26/16 Rx Montelukast Sodium Tablet (Montelukast Sodium) 10 Mg Tablet 10 Mg PO QHS 03/26/16 Rx [Hydrocodone/Chlorphen Polis] 5 ML Karla.er.12h 5 Ml PO PRN Q12HR PRN 03/26/16 Rx Metformin Hcl 500 Mg Tablet 1 Tab PO BID 03/21/16 Reported Gabapentin 600 Mg Tablet 600 Mg PO DAILY08 03/21/16 Reported Proair Hfa Inhaler (Albuterol Sulfate) 8.5 Gm Hfa.aer.ad 1 Puff INH PRN Q6HRS PRN 10/12/15 Rx Levaquin (Levofloxacin) 750 Mg Tablet 750 Mg PO DAILY 10/12/15 Rx Tessalon Perle (Benzonatate) 100 Mg Capsule 100 Mg PO TID PRN 10/12/15 Rx [Glucophage] 10/26/14 Reported Pepcid (Famotidine) 20 Mg Tablet 20 Mg PO BID 05/17/13 Reported Lisinopril 10 Mg Tablet 10 Mg PO 05/17/13 Reported Impression . NOTE DICTATED AECOPD AGREE WITH CURRENT RX THANKS HELENA MACHADO MD Nov 24, 2016 19:54
[2016-11-24] MEDS: FAMOTIDINE 20 MG TABLET. PO SCH (19:58)
[2016-11-24] MEDS: MONTELUKAST SODIUM 10 MG TABLET. PO SCH (19:59)
[2016-11-24] MEDS: guaiFENesin DM 200MG/20MG 10 ML SYRUP PO PRN (20:31)
[2016-11-24 23:00] VITALS: BP 154/93
--- NOTE | 2016-11-25 00:23 | CONS ---
DATE OF CONSULTATION: 11/24/2016 ATTENDING PHYSICIAN: Lala Ceron M.D. REASON FOR CONSULTATION: The patient seen in pulmonary consultation at the request of Dr. Ceron for increasing shortness of air. HISTORY OF PRESENT ILLNESS: The patient is a 66-year-old with a history of tobacco use, quit tobacco 2 weeks ago. He was unable to afford the cigarettes. He presented because of being increasingly more short of breath over the last several days. He also had some upset stomach. He has been using inhalers. Has a mildly productive cough. Also, has had some increasing lower extremity edema. No chest pain or pressure. PAST MEDICAL HISTORY: COPD, CVA, diabetes type 2, hyperlipidemia, hypertension, left-sided weakness, status post CVA. PAST SURGICAL HISTORY: Hernia repair. ALLERGIES: He has multiple allergies. Please see the list. REVIEW OF SYSTEMS: As indicated above, otherwise, a 10-point system was reviewed and negative. CURRENT MEDICATIONS: List was reviewed. PHYSICAL EXAMINATION: VITAL SIGNS: Stable. O2 saturation greater than 92%. HEENT: Eyes, the sclerae were nonicteric. NECK: Jugular venous distention could not be assessed secondary to body habitus. LUNGS: Adequate airway flow with bilateral wheeze and rhonchi. CARDIOVASCULAR: Regular rate and rhythm with S1, S2, no S3. ABDOMEN: Obese. EXTREMITIES: No clubbing, cyanosis, some edema. Chest x-ray reviewed, no acute cardiopulmonary process. LABORATORY DATA: Reviewed. White count was normal, hemoglobin and hematocrit noted. Electrolytes were noted. IMPRESSION: 1. Acute exacerbation of chronic obstructive pulmonary disease. 2. Progressive dyspnea secondary to above. 3. Tobacco dependence in remission. 4. Malnutrition, present upon admission. 5. Morbid obesity. 6. Acute nonspecific bronchitis. PLAN: 1. Concur with current medical management. 2. Continue oxygen supplementation. 3. The patient instructed on the importance of avoiding tobacco. 4. Social service consult, apparently the patient is either homeless or has been living in his car. 5. Dietary consultation for protein malnutrition. I do appreciate the privilege in sharing in the patient's care. HELENA MACHADO MD DR: KELLY/dilia JOB#: [id number] / [id number]
[2016-11-25 03:00] VITALS: BP 148/75
[2016-11-25 04:43] LABS: BASO % 0 % (0-3); EOS % 0 % (0-3); HEMATOCRIT 37.9 % (39.0-53.0); HEMOGLOBIN 12.7 g/dL (13.0-17.5); LYMPH # 1.2 x10^3/uL (1.0-4.8); LYMPH % 18 % (24-48); MEAN CORPUSCULAR HEMOGLOBIN 33 pg (25-35); MEAN CORPUSCULAR HGB CONC 33 g/dL (31-37); MEAN CORPUSCULAR VOLUME 99 fL (79-100); MONO % 5 % (0-9); NEUT % 76 % (31-73); PLATELET COUNT 204 x10^3/uL (140-400); RED BLOOD COUNT 3.82 x10^6/uL (4.30-5.70); RED CELL DISTRIBUTION WIDTH 14.3 % (11.5-14.5); WHITE BLOOD COUNT 6.7 x10^3/uL (4.0-11.0)
[2016-11-25] MEDS: IPRATRPIUM/ALBUTEROL 0.5/2.5MG 3 ML NEBU. NEB SCH ×5 (05:06→20:41)
[2016-11-25 05:13] LABS: CALCIUM 8.9 mg/dL (8.5-10.1); CREATININE 0.9 mg/dL (0.7-1.3); GFR 83.9; POTASSIUM 4.3 mmol/L (3.5-5.1)
[2016-11-25 07:00] VITALS: BP 143/78
--- NOTE | 2016-11-25 10:50 | PDOC2 ---
BENNY JOE WEIGHER OPERATOR 11/25/16 1050: CARDIAC CONSULT DATE OF CONSULT Date of Consult DATE: 11/25/16 TIME: 10:43 REASON FOR CONSULT Reason for Consult: Chest pain REFERRING PHYSICIAN Referring Physician: Demetrio SOURCE Source: Chart review, Patient HISTORY OF PRESENT ILLNESS HISTORY OF PRESENT ILLNESS This is a pleasant 66 yo male admitted for complains of abdominal pain. He was noting that it was chest pain but pointing it more to his LUQ abdominal pain which is worse with palpation and also notable pain to his lower abdominal region. He did have hernia repair about 30 yrs ago and he was thinking that this pain is related to that. In addition he has been having coughing spells with productive sputum but denies any significant wheeze or swelling to bilateral LE . Reports of no CAD but positive for CVA and COPD. Denies any palpitations, dizziness or passing out episodes. 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 PAST SURGICAL HISTORY: Hernias in the past. Cardiovascular: HTN Pulmonary: COPD, Other (DAVID) CENTRAL NERVOUS SYSTEM: CVA (left side hemiparesis) GI: GERD Endocrine: Diabetes (2) PAST SURGICAL HISTORY Past Surgical History: Hernia Repair FAMILY HISTORY Family History: Coronary Artery Disease (brother) SOCIAL HISTORY Smoke: Quit ALCOHOL: none Drugs: None Lives: Alone CURRENT MEDICATIONS CURRENT MEDICATIONS Current Medications Medications (Trade) Dose Ordered Sig/Dru Route PRN Reason Start Time Stop Time Status Last Admin Dose Admin Azithromycin 250 ml @ 250 mls/hr 1X ONCE IV 11/24/16 10:45 11/24/16 11:44 DC 11/24/16 10:58 Albuterol/ Ipratropium (Duoneb) 3 ml RTQID NEB 11/24/16 13:00 11/25/16 07:13 Guaifenesin (Robitussin Dm) 10 ml PRN Q6HRS PRN PO COUGH 11/24/16 12:00 11/24/16 20:31 Benzonatate (Tessalon Perle) 100 mg PRN TID PRN PO COUGH 11/24/16 12:00 11/24/16 20:31 Famotidine (Pepcid) 20 mg BID PO 11/24/16 21:00 11/24/16 19:58 Lisinopril (Prinivil) 10 mg DAILY PO 11/24/16 12:30 11/24/16 12:59 Metformin HCl (Glucophage) 500 mg BIDWMEALS PO 11/24/16 12:30 11/24/16 16:51 Montelukast Sodium (Singulair) 10 mg QHS PO 11/24/16 21:00 11/24/16 19:59 Nystatin (Nystop) 1 demetrius BID TP 11/24/16 12:30 11/24/16 19:59 Gabapentin (Neurontin) 600 mg DAILY08 PO 11/24/16 12:30 11/24/16 12:59 Morphine Sulfate 1 mg PRN Q2HR PRN IV PAIN 11/24/16 12:00 11/24/16 20:32 ALLERGIES ALLERGIES: Coded Allergies: Penicillins (Verified Allergy, Intermediate, PT DOESN'T REMEMBER, 03/21/16) bacitracin (Verified Allergy, Intermediate, 10/25/14) chlorpheniramine (Verified Allergy, Intermediate, 10/25/14) ciprofloxacin (Verified Allergy, Intermediate, 10/25/14) codeine (Verified Allergy, Intermediate, 10/25/14) dextromethorphan (Verified Allergy, Intermediate, 10/25/14) felodipine (Verified Allergy, Intermediate, 10/25/14) influenza virus vaccine, specific (Verified Allergy, Intermediate, 10/25/14 ) neomycin (Verified Allergy, Intermediate, 10/25/14) phenylephrine (Verified Allergy, Intermediate, 10/25/14) polymyxin B (Verified Allergy, Intermediate, 10/25/14) sulfamethoxazole (Verified Allergy, Intermediate, 10/25/14) trimethoprim (Verified Allergy, Intermediate, 10/25/14) ROS Review of System 14 point ROS evaluated with pertinent positives noted per HPI PHYSICAL EXAM General: Alert, Oriented X3, Cooperative, No acute distress HEENT: Atraumatic, Mucous membr. moist/pink Lungs: Other (diminished bases) Heart: Regular rate, Normal S1, Normal S2, Other (distnat heart sounds) Abdomen: Other (LUQ tenderness) Extremities: No cyanosis, Other (1+ bilateral LE pitting edema) Skin: No breakdown, No significant lesion Neuro: Normal speech, Sensation intact Psych/Mental Status: Mood NL MUSCULOSKELETAL: Osteoarthritic changes both hands VITALS VITALS Vital Signs Date Time Temp Pulse Resp B/P (MAP) Pulse Ox O2 Delivery O2 Flow Rate FiO2 11/25/16 08:00 Nasal Cannula 2.0 11/25/16 07:13 97 11/25/16 07:00 97.9 87 20 143/78 (99) 97.9 LABS Lab: Laboratory Tests Test 11/24/16 16:50 11/24/16 23:05 11/25/16 03:20 11/25/16 07:29 Troponin I Quantitative < 0.017 ng/mL (0.000-0.055) < 0.017 ng/mL (0.000-0.055) White Blood Count 6.7 x10^3/uL (4.0-11.0) Red Blood Count 3.82 x10^6/uL (4.30-5.70) Hemoglobin 12.7 g/dL (13.0-17.5) Hematocrit 37.9 % (39.0-53.0) Mean Corpuscular Volume 99 fL (79-100) Mean Corpuscular Hemoglobin 33 pg (25-35) Mean Corpuscular Hemoglobin Concent 33 g/dL (31-37) Red Cell Distribution Width 14.3 % (11.5-14.5) Platelet Count 204 x10^3/uL (140-400) Neutrophils (%) (Auto) 76 % (31-73) Lymphocytes (%) (Auto) 18 % (24-48) Monocytes (%) (Auto) 5 % (0-9) Eosinophils (%) (Auto) 0 % (0-3) Basophils (%) (Auto) 0 % (0-3) Neutrophils # (Auto) 5.1 x10^3uL (1.8-7.7) Lymphocytes # (Auto) 1.2 x10^3/uL (1.0-4.8) Monocytes # (Auto) 0.4 x10^3/uL (0.0-1.1) Eosinophils # (Auto) 0.0 x10^3/uL (0.0-0.7) Basophils # (Auto) 0.0 x10^3/uL (0.0-0.2) Sodium Level 141 mmol/L (136-145) Potassium Level 4.3 mmol/L (3.5-5.1) Chloride Level 105 mmol/L (98-107) Carbon Dioxide Level 30 mmol/L (21-32) Anion Gap 6 (6-14) Blood Urea Nitrogen 12 mg/dL (8-26) Creatinine 0.9 mg/dL (0.7-1.3) Estimated GFR (Cockcroft-Gault) 83.9 Glucose Level 259 mg/dL (70-99) Calcium Level 8.9 mg/dL (8.5-10.1) Glucose (Fingerstick) 191 mg/dL (70-99) ASSESSMENT/PLAN ASSESSMENT/PLAN 1. AECOPD/tobaccoism 2. Atypical CP: more to his LUQ abd reproducible with positional changes and palpation. Defer to PCP 3. PSVT: SR otherwise. 4. Hx of CVA 5. DM2/HLP 6. Morbid obesity 7. HTN: controlled Recommendations 1. TTE, Mg, BMP, lipid panel, and TSH 2. Would consider lowering ACEi and introducing small dosing of metoprolol as pt is prone to atrial dysrhythmias. Await TTE. 3. Restart home statin and ASA. 4. Lifestyle modification Problems: EMELIA GRAY MD 11/26/16 0131: CARDIAC CONSULT ALLERGIES ALLERGIES: Coded Allergies: Penicillins (Verified Allergy, Intermediate, PT DOESN'T REMEMBER, 03/21/16) bacitracin (Verified Allergy, Intermediate, 10/25/14) chlorpheniramine (Verified Allergy, Intermediate, 10/25/14) ciprofloxacin (Verified Allergy, Intermediate, 10/25/14) codeine (Verified Allergy, Intermediate, 10/25/14) dextromethorphan (Verified Allergy, Intermediate, 10/25/14) felodipine (Verified Allergy, Intermediate, 10/25/14) influenza virus vaccine, specific (Verified Allergy, Intermediate, 10/25/14 ) neomycin (Verified Allergy, Intermediate, 10/25/14) phenylephrine (Verified Allergy, Intermediate, 10/25/14) polymyxin B (Verified Allergy, Intermediate, 10/25/14) sulfamethoxazole (Verified Allergy, Intermediate, 10/25/14) trimethoprim (Verified Allergy, Intermediate, 10/25/14) ASSESSMENT/PLAN ASSESSMENT/PLAN Pt. seen and examined. Late entry for 11/25 Non-caric chest pain' normal echo. negative enzymes Pls call with questions. 'thanks Problems: BENNY JOE APRN Nov 25, 2016 10:50 EMELIA GRAY MD Nov 26, 2016 01:31
--- NOTE | 2016-11-25 10:55 | PDOC ---
PROGRESS NOTES Chief Complaint Chief Complaint 1. COPD exacerbation, acute bronchitis - w. hypoxia 2. Chronic prednisone use 3. SIRS POA, no organ dysfc continue the PO levaquin from home 4. Reported bed bug bites 5. Homeless 6. Mental delay or cognitive decline 7. Nausea, abd pain - 8, morbid obesity, BMI 45 History of Present Illness History of Present Illness Admitted, Supportive meds Pred PO Nebs cough med SW for homeless intermediate, he is reluctant to go Resume home meds PT/OT Vitals Vitals Vital Signs Date Time Temp Pulse Resp B/P (MAP) Pulse Ox O2 Delivery O2 Flow Rate FiO2 11/25/16 08:00 Nasal Cannula 2.0 11/25/16 07:13 97 11/25/16 07:00 97.9 87 20 143/78 (99) 97.9 Physical Exam General: Alert, Oriented X3, Cooperative, No acute distress Lungs: Clear Extremities: No clubbing, No cyanosis, No edema, Normal pulses, No tenderness/ swelling Skin: No rashes, No breakdown, No significant lesion Labs LABS Laboratory Tests Test 11/24/16 16:50 11/24/16 23:05 11/25/16 03:20 11/25/16 07:29 Troponin I Quantitative < 0.017 ng/mL (0.000-0.055) < 0.017 ng/mL (0.000-0.055) White Blood Count 6.7 x10^3/uL (4.0-11.0) Red Blood Count 3.82 x10^6/uL (4.30-5.70) Hemoglobin 12.7 g/dL (13.0-17.5) Hematocrit 37.9 % (39.0-53.0) Mean Corpuscular Volume 99 fL (79-100) Mean Corpuscular Hemoglobin 33 pg (25-35) Mean Corpuscular Hemoglobin Concent 33 g/dL (31-37) Red Cell Distribution Width 14.3 % (11.5-14.5) Platelet Count 204 x10^3/uL (140-400) Neutrophils (%) (Auto) 76 % (31-73) Lymphocytes (%) (Auto) 18 % (24-48) Monocytes (%) (Auto) 5 % (0-9) Eosinophils (%) (Auto) 0 % (0-3) Basophils (%) (Auto) 0 % (0-3) Neutrophils # (Auto) 5.1 x10^3uL (1.8-7.7) Lymphocytes # (Auto) 1.2 x10^3/uL (1.0-4.8) Monocytes # (Auto) 0.4 x10^3/uL (0.0-1.1) Eosinophils # (Auto) 0.0 x10^3/uL (0.0-0.7) Basophils # (Auto) 0.0 x10^3/uL (0.0-0.2) Sodium Level 141 mmol/L (136-145) Potassium Level 4.3 mmol/L (3.5-5.1) Chloride Level 105 mmol/L (98-107) Carbon Dioxide Level 30 mmol/L (21-32) Anion Gap 6 (6-14) Blood Urea Nitrogen 12 mg/dL (8-26) Creatinine 0.9 mg/dL (0.7-1.3) Estimated GFR (Cockcroft-Gault) 83.9 Glucose Level 259 mg/dL (70-99) Calcium Level 8.9 mg/dL (8.5-10.1) Glucose (Fingerstick) 191 mg/dL (70-99) Review of Systems Review of Systems back pain, check pain, left leg weakness, chronic complaints Assessment and Plan Assessmemt and Plan Problems Medical Problems: (1) COPD exacerbation Status: Acute Problems: Comment Review of Relevant I have reviewed the following items denise (where applicable) has been applied. Labs Laboratory Tests Test 11/24/16 10:05 11/24/16 16:50 11/24/16 23:05 11/25/16 03:20 White Blood Count 5.3 x10^3/uL (4.0-11.0) 6.7 x10^3/uL (4.0-11.0) Red Blood Count 4.01 x10^6/uL (4.30-5.70) 3.82 x10^6/uL (4.30-5.70) Hemoglobin 13.3 g/dL (13.0-17.5) 12.7 g/dL (13.0-17.5) Hematocrit 39.1 % (39.0-53.0) 37.9 % (39.0-53.0) Mean Corpuscular Volume 97 fL (79-100) 99 fL (79-100) Mean Corpuscular Hemoglobin 33 pg (25-35) 33 pg (25-35) Mean Corpuscular Hemoglobin Concent 34 g/dL (31-37) 33 g/dL (31-37) Red Cell Distribution Width 13.9 % (11.5-14.5) 14.3 % (11.5-14.5) Platelet Count 212 x10^3/uL (140-400) 204 x10^3/uL (140-400) Neutrophils (%) (Auto) 68 % (31-73) 76 % (31-73) Lymphocytes (%) (Auto) 21 % (24-48) 18 % (24-48) Monocytes (%) (Auto) 7 % (0-9) 5 % (0-9) Eosinophils (%) (Auto) 3 % (0-3) 0 % (0-3) Basophils (%) (Auto) 1 % (0-3) 0 % (0-3) Neutrophils # (Auto) 3.6 x10^3uL (1.8-7.7) 5.1 x10^3uL (1.8-7.7) Lymphocytes # (Auto) 1.1 x10^3/uL (1.0-4.8) 1.2 x10^3/uL (1.0-4.8) Monocytes # (Auto) 0.4 x10^3/uL (0.0-1.1) 0.4 x10^3/uL (0.0-1.1) Eosinophils # (Auto) 0.1 x10^3/uL (0.0-0.7) 0.0 x10^3/uL (0.0-0.7) Basophils # (Auto) 0.1 x10^3/uL (0.0-0.2) 0.0 x10^3/uL (0.0-0.2) Sodium Level 140 mmol/L (136-145) 141 mmol/L (136-145) Potassium Level 3.9 mmol/L (3.5-5.1) 4.3 mmol/L (3.5-5.1) Chloride Level 104 mmol/L (98-107) 105 mmol/L (98-107) Carbon Dioxide Level 29 mmol/L (21-32) 30 mmol/L (21-32) Anion Gap 7 (6-14) 6 (6-14) Blood Urea Nitrogen 11 mg/dL (8-26) 12 mg/dL (8-26) Creatinine 0.8 mg/dL (0.7-1.3) 0.9 mg/dL (0.7-1.3) Estimated GFR (Cockcroft-Gault) 96.1 83.9 Glucose Level 162 mg/dL (70-99) 259 mg/dL (70-99) Calcium Level 8.6 mg/dL (8.5-10.1) 8.9 mg/dL (8.5-10.1) Total Bilirubin 0.9 mg/dL (0.2-1.0) Direct Bilirubin 0.2 mg/dL (0.0-0.2) Aspartate Amino Transf (AST/SGOT) 21 U/L (15-37) Alanine Aminotransferase (ALT/SGPT) 32 U/L (16-63) Alkaline Phosphatase 63 U/L (46-116) Creatine Kinase 115 U/L (39-308) Creatine Kinase MB (Mass) 1.1 ng/mL (0.0-3.6) Creatine Kinase MB Relative Index 1.0 % (0-4) Troponin I Quantitative < 0.017 ng/mL (0.000-0.055) < 0.017 ng/mL (0.000-0.055) < 0.017 ng/mL (0.000-0.055) VE-Prg-R-Type Natriuretic Peptide 101 pg/mL (0-124) Total Protein 7.4 g/dL (6.4-8.2) Albumin 2.9 g/dL (3.4-5.0) Test 11/25/16 07:29 Glucose (Fingerstick) 191 mg/dL (70-99) Laboratory Tests Test 11/24/16 16:50 11/24/16 23:05 11/25/16 03:20 11/25/16 07:29 Troponin I Quantitative < 0.017 ng/mL (0.000-0.055) < 0.017 ng/mL (0.000-0.055) White Blood Count 6.7 x10^3/uL (4.0-11.0) Red Blood Count 3.82 x10^6/uL (4.30-5.70) Hemoglobin 12.7 g/dL (13.0-17.5) Hematocrit 37.9 % (39.0-53.0) Mean Corpuscular Volume 99 fL (79-100) Mean Corpuscular Hemoglobin 33 pg (25-35) Mean Corpuscular Hemoglobin Concent 33 g/dL (31-37) Red Cell Distribution Width 14.3 % (11.5-14.5) Platelet Count 204 x10^3/uL (140-400) Neutrophils (%) (Auto) 76 % (31-73) Lymphocytes (%) (Auto) 18 % (24-48) Monocytes (%) (Auto) 5 % (0-9) Eosinophils (%) (Auto) 0 % (0-3) Basophils (%) (Auto) 0 % (0-3) Neutrophils # (Auto) 5.1 x10^3uL (1.8-7.7) Lymphocytes # (Auto) 1.2 x10^3/uL (1.0-4.8) Monocytes # (Auto) 0.4 x10^3/uL (0.0-1.1) Eosinophils # (Auto) 0.0 x10^3/uL (0.0-0.7) Basophils # (Auto) 0.0 x10^3/uL (0.0-0.2) Sodium Level 141 mmol/L (136-145) Potassium Level 4.3 mmol/L (3.5-5.1) Chloride Level 105 mmol/L (98-107) Carbon Dioxide Level 30 mmol/L (21-32) Anion Gap 6 (6-14) Blood Urea Nitrogen 12 mg/dL (8-26) Creatinine 0.9 mg/dL (0.7-1.3) Estimated GFR (Cockcroft-Gault) 83.9 Glucose Level 259 mg/dL (70-99) Calcium Level 8.9 mg/dL (8.5-10.1) Glucose (Fingerstick) 191 mg/dL (70-99) Medications Current Medications Albuterol/ Ipratropium (Duoneb) 3 ml 1X ONCE NEB Last administered on t 09:54; Start 11/24/16 at 09:45; Stop 11/24/16 at 09:46; Status DC Methylprednisolone Sodium Succinate (SOLU-Medrol 125MG VIAL) 125 mg 1X ONCE IV Last administered on 11/24/16 10:12; Start 11/24/16 at 10:00; Stop at 10:01; Status DC Azithromycin 250 ml @ 250 mls/hr 1X ONCE IV Last administered on 11/24/16 10:58; Start 11/24/16 at 10:45; Stop 11/24/16 at 11:44; Status DC Ondansetron HCl (Zofran) 4 mg PRN Q8HRS PRN IV NAUSEA/VOMITING; Start at 11:15; Stop 11/24/16 at 11:54; Status DC Albuterol/ Ipratropium (Duoneb) 3 ml RTQID NEB Last administered on 11/25/16 07:13; Start 11/24/16 at 13:00 Ondansetron HCl (Zofran) 4 mg PRN Q6HRS PRN IV NAUSEA/VOMITING; Start at 12:00; Stop 11/25/16 at 11:59 Acetaminophen (Tylenol) 500 mg PRN Q6HRS PRN PO MILD PAIN / TEMP; Start at 12:00 Guaifenesin (Robitussin Dm) 10 ml PRN Q6HRS PRN PO COUGH Last administered on 11/24/16 20:31; Start 11/24/16 at 12:00 Labetalol HCl (Normodyne) 10 mg PRN Q2HR PRN IVP HYPERTENSION, SEE COMMENTS; Start 11/24/16 at 12:00 Acetaminophen/ Hydrocodone Bitart (Lortab 5/325) 1 tab PRN Q4HRS PRN PO PAIN; Start 11/24/16 at 12:00 Benzonatate (Tessalon Perle) 100 mg PRN TID PRN PO COUGH Last administered on 11/24/16 20:31; Start 11/24/16 at 12:00 Famotidine (Pepcid) 20 mg BID PO Last administered on 11/24/16 19:58; Start 11/24/16 at 21:00 Lisinopril (Prinivil) 10 mg DAILY PO Last administered on 11/24/16 12:59; Start 11/24/16 at 12:30 Metformin HCl (Glucophage) 500 mg BIDWMEALS PO Last administered on 11/24/16 16:51; Start 11/24/16 at 12:30 Montelukast Sodium (Singulair) 10 mg QHS PO Last administered on 11/24/16 19: 59; Start 11/24/16 at 21:00 Mupirocin (Bactroban) 1 sudheer TID NS ; Start 11/24/16 at 14:00; Status UNV Nystatin (Nystop) 1 sudheer BID TP Last administered on 11/24/16 19:59; Start at 12:30 Gabapentin (Neurontin) 600 mg DAILY08 PO Last administered on 11/24/16 12:59 ; Start 11/24/16 at 12:30 Ketorolac Tromethamine (Toradol) 15 mg PRN Q6HRS PRN IV PAIN; Start 11/24/16 at 12:00; Stop 11/29/16 at 11:59 Morphine Sulfate 1 mg PRN Q2HR PRN IV PAIN Last administered on 11/24/16 20: 32; Start 11/24/16 at 12:00 Prednisone (Prednisone) 40 mg DAILY PO ; Start 11/25/16 at 09:00 Active Scripts Active Mupirocin Ointment (Mupirocin) 22 Gm Oint...g. 1 Sudheer TP TID Nystatin 15 Gm Powder 1 Sudheer TP BID Prednisone 10 Mg Tablet 10 Mg PO DAILY Montelukast Sodium Tablet (Montelukast Sodium) 10 Mg Tablet 10 Mg PO QHS [Hydrocodone/Chlorphen Polis] 5 ML Karla.er.12h 5 Ml PO PRN Q12HR PRN Proair Hfa Inhaler (Albuterol Sulfate) 8.5 Gm Hfa.aer.ad 1 Puff INH PRN Q6HRS PRN Levaquin (Levofloxacin) 750 Mg Tablet 750 Mg PO DAILY Tessalon Perle (Benzonatate) 100 Mg Capsule 100 Mg PO TID PRN Reported Metformin Hcl 500 Mg Tablet 1 Tab PO BID Gabapentin 600 Mg Tablet 600 Mg PO DAILY08 [Glucophage] Pepcid (Famotidine) 20 Mg Tablet 20 Mg PO BID Lisinopril 10 Mg Tablet 10 Mg PO Vitals/I & O Vital Sign - Last 24 Hours 11/24/16 11/24/16 11/24/16 11/24/16 11:00 11:30 11:53 12:30 Temp 98.3 98.3 Pulse 96 101 92 95 Resp 22 21 22 15 B/P (MAP) 169/83 (111) 198/83 (121) 169/87 (114) 183/91 (121) Pulse Ox 94 96 94 94 O2 Delivery Nasal Cannula Nasal Cannula O2 Flow Rate 2.0 2.0 11/24/16 11/24/16 11/24/16 11/24/16 12:30 12:59 15:09 17:00 Temp 98.3 98.3 Pulse 92 89 B/P (MAP) 169/87 153/94 (113) Pulse Ox 96 96 O2 Delivery Nasal Cannula Nasal Cannula Nasal Cannula O2 Flow Rate 2.0 2.0 11/24/16 11/24/16 11/24/16 11/24/16 17:30 19:00 20:00 20:32 Temp 96.0 96.0 Pulse 93 Resp 18 B/P (MAP) 150/90 (110) Pulse Ox 96 98 O2 Delivery Nasal Cannula Nasal Cannula Nasal Cannula O2 Flow Rate 2.0 2.0 2.0 11/24/16 11/24/16 11/25/16 11/25/16 21:02 23:00 03:00 03:00 Temp 96.0 98.0 96.0 96.0 98.0 96.0 Pulse 85 85 Resp 18 16 B/P (MAP) 154/93 (113) 148/75 (99) Pulse Ox 98 96 O2 Delivery Nasal Cannula Nasal Cannula Nasal Cannula O2 Flow Rate 2.0 2.0 2.0 11/25/16 11/25/16 11/25/16 07:00 07:13 08:00 Temp 97.9 97.9 Pulse 87 Resp 20 B/P (MAP) 143/78 (99) Pulse Ox 97 97 O2 Delivery Nasal Cannula Nasal Cannula O2 Flow Rate 2.0 2.0 2.0 JOSE R ORDOÑEZ MD Nov 25, 2016 10:55
[2016-11-25 11:00] VITALS: BP 130/72
[2016-11-25] MEDS ORDERED: MORPHINE SULFATE 2 MG/ML DISP.SYRIN. IV PRN (11:00)
[2016-11-25 11:22] LABS: MAGNESIUM 2.1 mg/dL (1.8-2.4)
[2016-11-25 11:23] LABS: CHOLESTEROL/HDL RATIO 5.4
[2016-11-25] MEDS: predniSONE 20 MG TABLET PO SCH (11:29)
[2016-11-25] MEDS: GABAPENTIN 300 MG CAPSULE. PO SCH (11:29)
[2016-11-25] MEDS: metFORMIN 500 MG TABLET PO SCH ×2 (11:30→17:11)
[2016-11-25] MEDS: LISINOPRIL 10 MG TABLET PO SCH (11:30)
[2016-11-25] MEDS: FAMOTIDINE 20 MG TABLET. PO SCH ×2 (11:30→22:32)
[2016-11-25] MEDS: NYSTATIN TOPICAL POWDER 15GM BOTTLE. TP SCH ×2 (11:32→22:32)
--- NOTE | 2016-11-25 12:35 | PDOC ---
PULMONARY PROGRESS NOTES Vitals Vital Signs Date Time Temp Pulse Resp B/P (MAP) Pulse Ox O2 Delivery O2 Flow Rate FiO2 11/25/16 11:30 87 143/78 11/25/16 11:19 97 2.0 11/25/16 11:00 97.7 20 Nasal Cannula 97.7 General: Alert HEENT: Other Lungs: Clear Cardiovascular: S1, S2 Abdomen: Soft, Non-tender Extremities: Other Labs Laboratory Tests Test 11/24/16 10:05 11/24/16 16:50 11/24/16 23:05 11/25/16 03:20 White Blood Count 5.3 x10^3/uL (4.0-11.0) 6.7 x10^3/uL (4.0-11.0) Red Blood Count 4.01 x10^6/uL (4.30-5.70) 3.82 x10^6/uL (4.30-5.70) Hemoglobin 13.3 g/dL (13.0-17.5) 12.7 g/dL (13.0-17.5) Hematocrit 39.1 % (39.0-53.0) 37.9 % (39.0-53.0) Mean Corpuscular Volume 97 fL (79-100) 99 fL (79-100) Mean Corpuscular Hemoglobin 33 pg (25-35) 33 pg (25-35) Mean Corpuscular Hemoglobin Concent 34 g/dL (31-37) 33 g/dL (31-37) Red Cell Distribution Width 13.9 % (11.5-14.5) 14.3 % (11.5-14.5) Platelet Count 212 x10^3/uL (140-400) 204 x10^3/uL (140-400) Neutrophils (%) (Auto) 68 % (31-73) 76 % (31-73) Lymphocytes (%) (Auto) 21 % (24-48) 18 % (24-48) Monocytes (%) (Auto) 7 % (0-9) 5 % (0-9) Eosinophils (%) (Auto) 3 % (0-3) 0 % (0-3) Basophils (%) (Auto) 1 % (0-3) 0 % (0-3) Neutrophils # (Auto) 3.6 x10^3uL (1.8-7.7) 5.1 x10^3uL (1.8-7.7) Lymphocytes # (Auto) 1.1 x10^3/uL (1.0-4.8) 1.2 x10^3/uL (1.0-4.8) Monocytes # (Auto) 0.4 x10^3/uL (0.0-1.1) 0.4 x10^3/uL (0.0-1.1) Eosinophils # (Auto) 0.1 x10^3/uL (0.0-0.7) 0.0 x10^3/uL (0.0-0.7) Basophils # (Auto) 0.1 x10^3/uL (0.0-0.2) 0.0 x10^3/uL (0.0-0.2) Sodium Level 140 mmol/L (136-145) 141 mmol/L (136-145) Potassium Level 3.9 mmol/L (3.5-5.1) 4.3 mmol/L (3.5-5.1) Chloride Level 104 mmol/L (98-107) 105 mmol/L (98-107) Carbon Dioxide Level 29 mmol/L (21-32) 30 mmol/L (21-32) Anion Gap 7 (6-14) 6 (6-14) Blood Urea Nitrogen 11 mg/dL (8-26) 12 mg/dL (8-26) Creatinine 0.8 mg/dL (0.7-1.3) 0.9 mg/dL (0.7-1.3) Estimated GFR (Cockcroft-Gault) 96.1 83.9 Glucose Level 162 mg/dL (70-99) 259 mg/dL (70-99) Calcium Level 8.6 mg/dL (8.5-10.1) 8.9 mg/dL (8.5-10.1) Total Bilirubin 0.9 mg/dL (0.2-1.0) Direct Bilirubin 0.2 mg/dL (0.0-0.2) Aspartate Amino Transf (AST/SGOT) 21 U/L (15-37) Alanine Aminotransferase (ALT/SGPT) 32 U/L (16-63) Alkaline Phosphatase 63 U/L (46-116) Creatine Kinase 115 U/L (39-308) Creatine Kinase MB (Mass) 1.1 ng/mL (0.0-3.6) Creatine Kinase MB Relative Index 1.0 % (0-4) Troponin I Quantitative < 0.017 ng/mL (0.000-0.055) < 0.017 ng/mL (0.000-0.055) < 0.017 ng/mL (0.000-0.055) JZ-Hyx-M-Type Natriuretic Peptide 101 pg/mL (0-124) Total Protein 7.4 g/dL (6.4-8.2) Albumin 2.9 g/dL (3.4-5.0) Magnesium Level 2.1 mg/dL (1.8-2.4) Triglycerides Level 102 mg/dL (0-150) Cholesterol Level 146 mg/dL (0-200) LDL Cholesterol, Calculated 99 mg/dL (0-100) VLDL Cholesterol, Calculated 20 mg/dL (0-40) Non-HDL Cholesterol Calculated 119 mg/dL (0-129) HDL Cholesterol 27 mg/dL (40-60) Cholesterol/HDL Ratio 5.4 Thyroid Stimulating Hormone (TSH) 0.558 uIU/mL (0.358-3.74) Test 11/25/16 07:29 Glucose (Fingerstick) 191 mg/dL (70-99) Laboratory Tests Test 11/24/16 16:50 11/24/16 23:05 11/25/16 03:20 11/25/16 07:29 Troponin I Quantitative < 0.017 ng/mL (0.000-0.055) < 0.017 ng/mL (0.000-0.055) White Blood Count 6.7 x10^3/uL (4.0-11.0) Red Blood Count 3.82 x10^6/uL (4.30-5.70) Hemoglobin 12.7 g/dL (13.0-17.5) Hematocrit 37.9 % (39.0-53.0) Mean Corpuscular Volume 99 fL (79-100) Mean Corpuscular Hemoglobin 33 pg (25-35) Mean Corpuscular Hemoglobin Concent 33 g/dL (31-37) Red Cell Distribution Width 14.3 % (11.5-14.5) Platelet Count 204 x10^3/uL (140-400) Neutrophils (%) (Auto) 76 % (31-73) Lymphocytes (%) (Auto) 18 % (24-48) Monocytes (%) (Auto) 5 % (0-9) Eosinophils (%) (Auto) 0 % (0-3) Basophils (%) (Auto) 0 % (0-3) Neutrophils # (Auto) 5.1 x10^3uL (1.8-7.7) Lymphocytes # (Auto) 1.2 x10^3/uL (1.0-4.8) Monocytes # (Auto) 0.4 x10^3/uL (0.0-1.1) Eosinophils # (Auto) 0.0 x10^3/uL (0.0-0.7) Basophils # (Auto) 0.0 x10^3/uL (0.0-0.2) Sodium Level 141 mmol/L (136-145) Potassium Level 4.3 mmol/L (3.5-5.1) Chloride Level 105 mmol/L (98-107) Carbon Dioxide Level 30 mmol/L (21-32) Anion Gap 6 (6-14) Blood Urea Nitrogen 12 mg/dL (8-26) Creatinine 0.9 mg/dL (0.7-1.3) Estimated GFR (Cockcroft-Gault) 83.9 Glucose Level 259 mg/dL (70-99) Calcium Level 8.9 mg/dL (8.5-10.1) Magnesium Level 2.1 mg/dL (1.8-2.4) Triglycerides Level 102 mg/dL (0-150) Cholesterol Level 146 mg/dL (0-200) LDL Cholesterol, Calculated 99 mg/dL (0-100) VLDL Cholesterol, Calculated 20 mg/dL (0-40) Non-HDL Cholesterol Calculated 119 mg/dL (0-129) HDL Cholesterol 27 mg/dL (40-60) Cholesterol/HDL Ratio 5.4 Thyroid Stimulating Hormone (TSH) 0.558 uIU/mL (0.358-3.74) Glucose (Fingerstick) 191 mg/dL (70-99) Medications Active Scripts Medications Dose Route/Sig Max Daily Dose Days Date Category Mupirocin Ointment (Mupirocin) 22 Gm Oint...g. 1 Sudheer TP TID 06/10/16 Rx Nystatin 15 Gm Powder 1 Sudheer TP BID 06/10/16 Rx Prednisone 10 Mg Tablet 10 Mg PO DAILY 03/26/16 Rx Montelukast Sodium Tablet (Montelukast Sodium) 10 Mg Tablet 10 Mg PO QHS 03/26/16 Rx [Hydrocodone/Chlorphen Polis] 5 ML Karla.er.12h 5 Ml PO PRN Q12HR PRN 03/26/16 Rx Metformin Hcl 500 Mg Tablet 1 Tab PO BID 03/21/16 Reported Gabapentin 600 Mg Tablet 600 Mg PO DAILY08 03/21/16 Reported Proair Hfa Inhaler (Albuterol Sulfate) 8.5 Gm Hfa.aer.ad 1 Puff INH PRN Q6HRS PRN 10/12/15 Rx Levaquin (Levofloxacin) 750 Mg Tablet 750 Mg PO DAILY 10/12/15 Rx Tessalon Perle (Benzonatate) 100 Mg Capsule 100 Mg PO TID PRN 10/12/15 Rx [Glucophage] 10/26/14 Reported Pepcid (Famotidine) 20 Mg Tablet 20 Mg PO BID 05/17/13 Reported Lisinopril 10 Mg Tablet 10 Mg PO 05/17/13 Reported Impression . 1. Acute exacerbation of chronic obstructive pulmonary disease. 2. Progressive dyspnea secondary to above. 3. Tobacco dependence in remission. 4. Malnutrition, present upon admission. 5. Morbid obesity. 6. Acute nonspecific bronchitis. Plan . 1. Concur with current medical management. 2. Continue oxygen supplementation. 3. The patient instructed on the importance of avoiding tobacco. 4. Social service consult, apparently the patient is either homeless or has been living in his car. 5. Dietary consultation for protein malnutrition. I do appreciate the privilege in sharing in HELENA Lovell MD Nov 25, 2016 12:35
[2016-11-25] MEDS: ASPIRIN ENTERIC COATED 81 MG TABLET.DR. PO SCH (13:32)
[2016-11-25 15:00] VITALS: BP 140/67
--- NOTE | 2016-11-25 17:10 | CARD ---
APPROVED REPORT EXAM: Two-dimensional and M-mode echocardiogram with Doppler and color Doppler. Other Information Quality : Good INDICATION Arrhythmia 2D DIMENSIONS Left Atrium(2D)3.8 (1.6-4.0cm)IVSd1.4 (0.7-1.1cm) Aortic Root(2D)3.5 (2.0-3.7cm)LVDd4.6 (3.9-5.9cm) LVOT Diameter2.0 (1.8-2.4cm)PWd1.4 (0.7-1.1cm) LVDs3.3 (2.5-4.0cm)FS (%) 29.3 % SV54.7 mlLVEF(%)56.2 (>50%) Aortic Valve AoV Peak Kermit.175.0cm/sAoV VTI30.7cm AO Peak GR.12.2mmHgLVOT Peak Kermit.132.2cm/s AO Mean GR.5mmHgAVA (VMAX)2.45cm2 SEBASTIAN (VTI)2.50cm2 Mitral Valve MV E Yuuifasm327.4cm/sMV DECEL IPRH356ph MV A Zovidzxy44.6cm/sE/A Ratio1.3 Tricuspid Valve TR P. Yptzftrs124qb/sRAP [id number] TR Peak Gr.1xfRoCVKO49mkBv LEFT VENTRICLE The left ventricle is normal size. There is moderate concentric left ventricular hypertrophy. The lef t ventricular systolic function is normal. The Ejection Fraction is 55-60%. There is normal LV segmen ravi wall motion. RIGHT VENTRICLE The right ventricle is normal size. The right ventricular systolic function is normal. ATRIA The left atrium size is normal. The right atrium size is normal. The interatrial septum is intact wit h no evidence for an atrial septal defect or patent foramen ovale as noted on 2-D or Doppler imaging. AORTIC VALVE The aortic valve is calcified but opens well. Doppler and Color Flow revealed no significant aortic r egurgitation. There is no significant aortic valvular stenosis. There is no aortic valvular vegetatio n. MITRAL VALVE The mitral valve is normal in structure and function. There is no evidence of mitral valve prolapse. There is no mitral valve stenosis. Doppler and Color Flow revealed no mitral valve regurgitation note d. TRICUSPID VALVE The tricuspid valve is normal in structure and function. Doppler and Color Flow revealed trace tricus pid regurgitation. There is no tricuspid valve prolapse or vegetation. PULMONIC VALVE The pulmonary valve is normal in structure and function. Doppler and Color Flow revealed no pulmonic valvular regurgitation. There is no pulmonic valvular stenosis. GREAT VESSELS The aortic root is normal in size. The ascending aorta is normal in size. The IVC is normal in size a nd collapses >50% with inspiration. PERICARDIAL EFFUSION There is no pleural effusion. There is no evidence of significant pericardial effusion. Critical Notification Critical Value: No <Conclusion> The left ventricular systolic function is normal. The Ejection Fraction is 55-60%. There is normal LV segmental wall motion. Doppler and Color Flow revealed trace tricuspid regurgitation. There is no evidence of significant pericardial effusion.
[2016-11-25 19:22] VITALS: BP 176/88
[2016-11-25] MEDS ORDERED: ATORVASTATIN CALCIUM 20 MG TABLET PO SCH (21:00)
[2016-11-25] MEDS: guaiFENesin DM 200MG/20MG 10 ML SYRUP PO PRN (22:32)
[2016-11-25] MEDS: MONTELUKAST SODIUM 10 MG TABLET. PO SCH (22:32)
[2016-11-25 23:11] VITALS: BP 179/89
[2016-11-26 03:00] VITALS: BP 134/88
[2016-11-26 07:00] VITALS: BP 131/82
[2016-11-26] MEDS: IPRATRPIUM/ALBUTEROL 0.5/2.5MG 3 ML NEBU. NEB SCH ×2 (07:42→16:00)
[2016-11-26] MEDS: predniSONE 20 MG TABLET PO SCH (08:55)
[2016-11-26] MEDS: FAMOTIDINE 20 MG TABLET. PO SCH (08:55)
[2016-11-26] MEDS: ASPIRIN ENTERIC COATED 81 MG TABLET.DR. PO SCH (08:56)
[2016-11-26] MEDS: GABAPENTIN 300 MG CAPSULE. PO SCH (08:56)
[2016-11-26] MEDS: LISINOPRIL 10 MG TABLET PO SCH (08:56)
[2016-11-26] MEDS: metFORMIN 500 MG TABLET PO SCH (08:56)
[2016-11-26 10:49] VITALS: BP 129/76
--- NOTE | 2016-11-26 12:51 | PDOC ---
PROGRESS NOTES Chief Complaint Chief Complaint 1. COPD exacerbation, acute bronchitis - w. new hypoxia 2. Chronic prednisone use 3. SIRS POA, no organ dysfc continue the PO levaquin from home 4. Reported bed bug bites 5. Homeless 6. Mental delay or cognitive decline 7. Nausea, abd pain - 8, morbid obesity, BMI 45 History of Present Illness History of Present Illness Supportive meds Pred PO Nebs cough med SW for homeless residential, he is reluctant to go Resume home meds PT/OT, OOB Vitals Vitals Vital Signs Date Time Temp Pulse Resp B/P (MAP) Pulse Ox O2 Delivery O2 Flow Rate FiO2 11/26/16 10:49 97.8 77 20 129/76 (93) 97 Nasal Cannula 2.0 97.8 Physical Exam General: Alert, Oriented X3, Cooperative, No acute distress Heart: Regular rate, Normal S1, Normal S2, Other (distnat heart sounds) Lungs: Clear Abdomen: Other (LUQ tenderness) Extremities: No cyanosis, Other (1+ bilateral LE pitting edema) Skin: No breakdown, No significant lesion Labs LABS Laboratory Tests Test 11/25/16 16:50 11/26/16 11:48 Glucose (Fingerstick) 288 mg/dL (70-99) 235 mg/dL (70-99) Review of Systems Review of Systems no n,.vd. Assessment and Plan Assessmemt and Plan Problems Medical Problems: (1) COPD exacerbation Status: Acute Problems: Comment Review of Relevant I have reviewed the following items denise (where applicable) has been applied. Labs Laboratory Tests Test 11/24/16 16:50 11/24/16 23:05 11/25/16 03:20 11/25/16 07:29 Troponin I Quantitative < 0.017 ng/mL (0.000-0.055) < 0.017 ng/mL (0.000-0.055) White Blood Count 6.7 x10^3/uL (4.0-11.0) Red Blood Count 3.82 x10^6/uL (4.30-5.70) Hemoglobin 12.7 g/dL (13.0-17.5) Hematocrit 37.9 % (39.0-53.0) Mean Corpuscular Volume 99 fL (79-100) Mean Corpuscular Hemoglobin 33 pg (25-35) Mean Corpuscular Hemoglobin Concent 33 g/dL (31-37) Red Cell Distribution Width 14.3 % (11.5-14.5) Platelet Count 204 x10^3/uL (140-400) Neutrophils (%) (Auto) 76 % (31-73) Lymphocytes (%) (Auto) 18 % (24-48) Monocytes (%) (Auto) 5 % (0-9) Eosinophils (%) (Auto) 0 % (0-3) Basophils (%) (Auto) 0 % (0-3) Neutrophils # (Auto) 5.1 x10^3uL (1.8-7.7) Lymphocytes # (Auto) 1.2 x10^3/uL (1.0-4.8) Monocytes # (Auto) 0.4 x10^3/uL (0.0-1.1) Eosinophils # (Auto) 0.0 x10^3/uL (0.0-0.7) Basophils # (Auto) 0.0 x10^3/uL (0.0-0.2) Sodium Level 141 mmol/L (136-145) Potassium Level 4.3 mmol/L (3.5-5.1) Chloride Level 105 mmol/L (98-107) Carbon Dioxide Level 30 mmol/L (21-32) Anion Gap 6 (6-14) Blood Urea Nitrogen 12 mg/dL (8-26) Creatinine 0.9 mg/dL (0.7-1.3) Estimated GFR (Cockcroft-Gault) 83.9 Glucose Level 259 mg/dL (70-99) Calcium Level 8.9 mg/dL (8.5-10.1) Magnesium Level 2.1 mg/dL (1.8-2.4) Triglycerides Level 102 mg/dL (0-150) Cholesterol Level 146 mg/dL (0-200) LDL Cholesterol, Calculated 99 mg/dL (0-100) VLDL Cholesterol, Calculated 20 mg/dL (0-40) Non-HDL Cholesterol Calculated 119 mg/dL (0-129) HDL Cholesterol 27 mg/dL (40-60) Cholesterol/HDL Ratio 5.4 Thyroid Stimulating Hormone (TSH) 0.558 uIU/mL (0.358-3.74) Glucose (Fingerstick) 191 mg/dL (70-99) Test 11/25/16 11:34 11/25/16 16:50 11/26/16 11:48 Glucose (Fingerstick) 173 mg/dL (70-99) 288 mg/dL (70-99) 235 mg/dL (70-99) Laboratory Tests Test 11/25/16 16:50 11/26/16 11:48 Glucose (Fingerstick) 288 mg/dL (70-99) 235 mg/dL (70-99) Medications Current Medications Albuterol/ Ipratropium (Duoneb) 3 ml 1X ONCE NEB Last administered on 09:54; Start 11/24/16 at 09:45; Stop 11/24/16 at 09:46; Status DC Methylprednisolone Sodium Succinate (SOLU-Medrol 125MG VIAL) 125 mg 1X ONCE IV Last administered on 11/24/16 10:12; Start 11/24/16 at 10:00; Stop at 10:01; Status DC Azithromycin 250 ml @ 250 mls/hr 1X ONCE IV Last administered on 11/24/16 10:58; Start 11/24/16 at 10:45; Stop 11/24/16 at 11:44; Status DC Ondansetron HCl (Zofran) 4 mg PRN Q8HRS PRN IV NAUSEA/VOMITING; Start at 11:15; Stop 11/24/16 at 11:54; Status DC Albuterol/ Ipratropium (Duoneb) 3 ml RTQID NEB Last administered on 11/26/16 07:42; Start 11/24/16 at 13:00 Ondansetron HCl (Zofran) 4 mg PRN Q6HRS PRN IV NAUSEA/VOMITING; Start at 12:00; Stop 11/25/16 at 11:59; Status DC Acetaminophen (Tylenol) 500 mg PRN Q6HRS PRN PO MILD PAIN / TEMP; Start at 12:00 Guaifenesin (Robitussin Dm) 10 ml PRN Q6HRS PRN PO COUGH Last administered on 11/25/16 22:32; Start 11/24/16 at 12:00 Labetalol HCl (Normodyne) 10 mg PRN Q2HR PRN IVP HYPERTENSION, SEE COMMENTS Last administered on 11/26/16 00:14; Start 11/24/16 at 12:00 Acetaminophen/ Hydrocodone Bitart (Lortab 5/325) 1 tab PRN Q4HRS PRN PO MODERATE - SEVERE PAIN Last administered on 11/26/16 08:57; Start 11/24/16 at 12:00 Benzonatate (Tessalon Perle) 100 mg PRN TID PRN PO COUGH Last administered on 11/24/16 20:31; Start 11/24/16 at 12:00 Famotidine (Pepcid) 20 mg BID PO Last administered on 11/26/16 08:55; Start 11/24/16 at 21:00 Lisinopril (Prinivil) 10 mg DAILY PO Last administered on 11/26/16 08:56; Start 11/24/16 at 12:30 Metformin HCl (Glucophage) 500 mg BIDWMEALS PO Last administered on 11/26/16 08:56; Start 11/24/16 at 12:30 Montelukast Sodium (Singulair) 10 mg QHS PO Last administered on 11/25/16 22: 32; Start 11/24/16 at 21:00 Mupirocin (Bactroban) 1 sudheer TID NS ; Start 11/24/16 at 14:00; Status UNV Nystatin (Nystop) 1 sudheer BID TP Last administered on 11/25/16 22:32; Start at 12:30 Gabapentin (Neurontin) 600 mg DAILY08 PO Last administered on 11/26/16 08:56 ; Start 11/24/16 at 12:30 Ketorolac Tromethamine (Toradol) 15 mg PRN Q6HRS PRN IV PAIN; Start 11/24/16 at 12:00; Stop 11/29/16 at 11:59 Morphine Sulfate 1 mg PRN Q2HR PRN IV PAIN Last administered on 11/24/16 20: 32; Start 11/24/16 at 12:00; Stop 11/25/16 at 10:55; Status DC Prednisone (Prednisone) 40 mg DAILY PO Last administered on 11/26/16 08:55; Start 11/25/16 at 09:00 Morphine Sulfate 2 mg PRN Q2HR PRN IV PAIN; Start 11/25/16 at 11:00 Aspirin (Ecotrin) 81 mg DAILYWBKFT PO Last administered on 11/26/16 08:56; Start 11/25/16 at 13:30 Atorvastatin Calcium (Lipitor) 20 mg QHS PO Last administered on 11/25/16 22: 32; Start 11/25/16 at 21:00 Active Scripts Active Mupirocin Ointment (Mupirocin) 22 Gm Oint...g. 1 Sudheer TP TID Nystatin 15 Gm Powder 1 Sudheer TP BID Prednisone 10 Mg Tablet 10 Mg PO DAILY Montelukast Sodium Tablet (Montelukast Sodium) 10 Mg Tablet 10 Mg PO QHS [Hydrocodone/Chlorphen Polis] 5 ML Karla.er.12h 5 Ml PO PRN Q12HR PRN Proair Hfa Inhaler (Albuterol Sulfate) 8.5 Gm Hfa.aer.ad 1 Puff INH PRN Q6HRS PRN Levaquin (Levofloxacin) 750 Mg Tablet 750 Mg PO DAILY Tessalon Perle (Benzonatate) 100 Mg Capsule 100 Mg PO TID PRN Reported Metformin Hcl 500 Mg Tablet 1 Tab PO BID Gabapentin 600 Mg Tablet 600 Mg PO DAILY08 [Glucophage] Pepcid (Famotidine) 20 Mg Tablet 20 Mg PO BID Lisinopril 10 Mg Tablet 10 Mg PO Vitals/I & O Vital Sign - Last 24 Hours 11/25/16 11/25/16 11/25/16 11/25/16 15:00 15:10 19:22 20:00 Temp 97.9 98.2 97.9 98.2 Pulse 70 93 Resp 20 20 B/P (MAP) 140/67 (91) 176/88 (117) Pulse Ox 96 95 O2 Delivery Nasal Cannula Nasal Cannula Nasal Cannula O2 Flow Rate 2.0 2.0 2.0 2.0 11/25/16 11/25/16 11/26/16 11/26/16 20:42 23:11 00:14 03:00 Temp 98.7 98.3 98.7 98.3 Pulse 97 97 100 Resp 20 20 B/P (MAP) 179/89 (119) 179/89 134/88 (103) Pulse Ox 98 95 96 O2 Delivery Nasal Cannula Nasal Cannula O2 Flow Rate 2.0 2.0 2.0 11/26/16 11/26/16 11/26/1611/26/17 07:00 07:43 08:56 08:57 Temp 97.8 97.8 Pulse 75 75 Resp 20 20 B/P (MAP) 131/82 (98) 131/82 Pulse Ox 97 98 93 O2 Delivery Nasal Cannula Room Air O2 Flow Rate 2.0 2.0 11/26/16 10:49 Temp 97.8 97.8 Pulse 77 Resp 20 B/P (MAP) 129/76 (93) Pulse Ox 97 O2 Delivery Nasal Cannula O2 Flow Rate 2.0 Intake and Output 11/26/16 11/26/16 11/27/16 15:00 23:00 07:00 Intake Total 300 ml Balance 300 ml JOSE R ORDOÑEZ MD Nov 26, 2016 12:51
[2016-11-26] MEDS ORDERED: PRED-220 PO (14:19)
[2016-11-26] MEDS ORDERED: LEVO750T31 PO (14:19)
[2016-11-26 14:47] VITALS: BP 130/78
== END 2016-11-26 16:40 | disposition home or self-care (01) | DRG 871 ==
LOC: ER 09:21 → 6 SOUTH 11:26
PROVIDERS: ADMIT Internal Medicine; ATTEND Internal Medicine
DX: A41.9 Sepsis, unspecified organism (principal); J96.01 Acute respiratory failure with hypoxia; J44.0 Chronic obstructive pulmonary disease with (acute) lower respiratory infection; E46 Unspecified protein-calorie malnutrition; I69.354 Hemiplegia and hemiparesis following cerebral infarction affecting left non-dominant side; Z68.42 Body mass index [BMI] 45.0-49.9, adult; J44.1 Chronic obstructive pulmonary disease with (acute) exacerbation; E66.01 Morbid (severe) obesity due to excess calories; J20.9 Acute bronchitis, unspecified; I10 Essential (primary) hypertension; W57.XXXA Bitten or stung by nonvenomous insect and other nonvenomous arthropods, initial encounter; F17.201 Nicotine dependence, unspecified, in remission; E11.9 Type 2 diabetes mellitus without complications; E78.5 Hyperlipidemia, unspecified; K21.9 Gastro-esophageal reflux disease without esophagitis; G47.33 Obstructive sleep apnea (adult) (pediatric); E78.00 Pure hypercholesterolemia, unspecified; G89.29 Other chronic pain; Z59.0 Homelessness; Z88.1 Allergy status to other antibiotic agents; Z88.5 Allergy status to narcotic agent; Z88.0 Allergy status to penicillin; Z88.2 Allergy status to sulfonamides; Z88.7 Allergy status to serum and vaccine; Z88.8 Allergy status to other drugs, medicaments and biological substances; Z79.52 Long term (current) use of systemic steroids; Z82.49 Family history of ischemic heart disease and other diseases of the circulatory system
CPT/HCPCS: 36415; 71020; 80048; 80061; 80076; 82553; 82962; 83735; 83880; 84443; 84484; 85025; 93005; 93306; 94250; 94640; 94760; 96374; 96375; J0456; J2270; J2930; J3490; J7512; J7620; 99285-25

== ENCOUNTER 2017-05-08 10:07 | Emergency (ER) | payer MEDICARE, MEDICAID, OTHER ==
[2017-05-08 10:33] LABS: ADD MAN DIFF? NO
[2017-05-08 10:38] LABS: BASO % 1 % (0-3); EOS # 0.2 x10^3/uL (0.0-0.7); EOS % 4 % (0-3); HEMATOCRIT 40.1 % (39.0-53.0); HEMOGLOBIN 13.2 g/dL (13.0-17.5); LYMPH # 1.9 x10^3/uL (1.0-4.8); LYMPH % 39 % (24-48); MEAN CORPUSCULAR HEMOGLOBIN 32 pg (25-35); MEAN CORPUSCULAR HGB CONC 33 g/dL (31-37); MEAN CORPUSCULAR VOLUME 97 fL (79-100); MONO # 0.4 x10^3/uL (0.0-1.1); MONO % 8 % (0-9); NEUT # 2.4 x10^3uL (1.8-7.7); NEUT % 49 % (31-73); PLATELET COUNT 212 x10^3/uL (140-400); RED BLOOD COUNT 4.15 x10^6/uL (4.30-5.70); RED CELL DISTRIBUTION WIDTH 14.8 % (11.5-14.5); WHITE BLOOD COUNT 4.9 x10^3/uL (4.0-11.0)
[2017-05-08 10:47] LABS: ANION GAP 8 (6-14); BLOOD UREA NITROGEN 11 mg/dL (8-26); BUN/CREATININE RATIO 12 (6-20); CALCIUM 8.8 mg/dL (8.5-10.1); CARBON DIOXIDE 29 mmol/L (21-32); CHLORIDE 104 mmol/L (98-107); CREATININE 0.9 mg/dL (0.7-1.3); GFR 83.9; GLUCOSE 316 mg/dL (70-99); POTASSIUM 3.6 mmol/L (3.5-5.1); SODIUM 141 mmol/L (136-145)
[2017-05-08 10:53] LABS: ALBUMIN 2.9 g/dL (3.4-5.0); ALBUMIN/GLOBULIN RATIO 0.6 (1.0-1.7); ALK PHOS 84 U/L (46-116); ALT (SGPT) 37 U/L (16-63); AST (SGOT) 21 U/L (15-37); TOTAL BILIRUBIN 0.6 mg/dL (0.2-1.0); TOTAL PROTEIN 7.4 g/dL (6.4-8.2)
[2017-05-08 10:54] LABS: TROPONINI 0.022 ng/mL (0.000-0.055)
[2017-05-08 10:59] LABS: NT-PRO BNP 82 pg/mL (0-124)
[2017-05-08 12:11] LABS: D-DIMER 0.61 ug/mlFEU (0.00-0.50)
== END 2017-05-08 14:47 | disposition home or self-care (01) ==
LOC: ER 10:07
DX: I72.4 Aneurysm of artery of lower extremity (principal); R06.02 Shortness of breath; R60.0 Localized edema; E11.9 Type 2 diabetes mellitus without complications; E78.00 Pure hypercholesterolemia, unspecified; I10 Essential (primary) hypertension; J44.9 Chronic obstructive pulmonary disease, unspecified; Z86.73 Personal history of transient ischemic attack (TIA), and cerebral infarction without residual deficits; F17.200 Nicotine dependence, unspecified, uncomplicated; Z98.890 Other specified postprocedural states; Z88.0 Allergy status to penicillin; Z88.2 Allergy status to sulfonamides; Z88.1 Allergy status to other antibiotic agents; Z88.5 Allergy status to narcotic agent; Z88.8 Allergy status to other drugs, medicaments and biological substances; Z88.7 Allergy status to serum and vaccine
CPT/HCPCS: 36415; 71045; 80053; 83880; 84484; 85025; 85379; 93005; 93970; 99285-25

== ENCOUNTER 2017-06-24 15:48 | Emergency (ER) | payer MEDICARE, OTHER ==
[2017-06-24 16:46] LABS: ADD MAN DIFF? NO
[2017-06-24 16:51] LABS: BASO % 1 % (0-3); EOS # 0.3 x10^3/uL (0.0-0.7); EOS % 5 % (0-3); HEMATOCRIT 39.7 % (39.0-53.0); HEMOGLOBIN 13.8 g/dL (13.0-17.5); LYMPH # 2.4 x10^3/uL (1.0-4.8); LYMPH % 36 % (24-48); MEAN CORPUSCULAR HEMOGLOBIN 33 pg (25-35); MEAN CORPUSCULAR HGB CONC 35 g/dL (31-37); MEAN CORPUSCULAR VOLUME 96 fL (79-100); MONO # 0.4 x10^3/uL (0.0-1.1); MONO % 7 % (0-9); NEUT # 3.5 x10^3uL (1.8-7.7); NEUT % 52 % (31-73); PLATELET COUNT 239 x10^3/uL (140-400); RED BLOOD COUNT 4.13 x10^6/uL (4.30-5.70); RED CELL DISTRIBUTION WIDTH 14.3 % (11.5-14.5); WHITE BLOOD COUNT 6.7 x10^3/uL (4.0-11.0)
[2017-06-24 17:04] LABS: ANION GAP 6 (6-14); BLOOD UREA NITROGEN 12 mg/dL (8-26); BUN/CREATININE RATIO 13 (6-20); CALCIUM 8.8 mg/dL (8.5-10.1); CARBON DIOXIDE 30 mmol/L (21-32); CHLORIDE 107 mmol/L (98-107); CREATININE 0.9 mg/dL (0.7-1.3); GFR 83.9; GLUCOSE 143 mg/dL (70-99); POTASSIUM 4.1 mmol/L (3.5-5.1); SODIUM 143 mmol/L (136-145)
[2017-06-24 17:10] LABS: ALBUMIN 2.9 g/dL (3.4-5.0); ALBUMIN/GLOBULIN RATIO 0.8 (1.0-1.7); ALK PHOS 75 U/L (46-116); ALT (SGPT) 34 U/L (16-63); AST (SGOT) 11 U/L (15-37); TOTAL BILIRUBIN 0.5 mg/dL (0.2-1.0); TOTAL PROTEIN 6.5 g/dL (6.4-8.2)
[2017-06-24 17:12] LABS: TROPONINI 0.027 ng/mL (0.000-0.055)
[2017-06-24 17:20] LABS: NT-PRO BNP 188 pg/mL (0-124)
[2017-06-24 17:55] LABS: BASE EXCESS ABG 5 mmol/L (-3-3); HCO3 ABG 30 mmol/L (21-28); PCO2 ABG 46 mmHg (35-46); PH ABG 7.43 (7.35-7.45); PO2 ABG 68 mmHg (65-108); SAT O2 ABG 93 % (92-99)
== END 2017-06-24 18:35 | disposition home or self-care (01) ==
LOC: ER 15:48
DX: R07.89 Other chest pain (principal); R05 Cough; E11.9 Type 2 diabetes mellitus without complications; E78.00 Pure hypercholesterolemia, unspecified; I10 Essential (primary) hypertension; I48.91 Unspecified atrial fibrillation; G89.29 Other chronic pain; J44.9 Chronic obstructive pulmonary disease, unspecified; Z86.73 Personal history of transient ischemic attack (TIA), and cerebral infarction without residual deficits; F17.210 Nicotine dependence, cigarettes, uncomplicated; Z88.0 Allergy status to penicillin; Z88.2 Allergy status to sulfonamides; Z88.1 Allergy status to other antibiotic agents; Z88.5 Allergy status to narcotic agent; Z88.7 Allergy status to serum and vaccine; Z88.8 Allergy status to other drugs, medicaments and biological substances
CPT/HCPCS: 36415; 36600; 71046; 80053; 82805; 83880; 84484; 85025; 93005; 99285-25

== ENCOUNTER 2019-03-14 17:38 | Inpatient (IN) | payer OTHER ==
[~2019-03-14] VITALS: Ht 162.6 cm; Wt 118.4 kg
[~2019-03-14 17:38] MED LIST changes: +ALBU2.5V8 INH; +ASPI325T8 PO; +BUDE10.2 IH; +DOXY-96 PO; +FURO-69 PO; -GABA600T2 PO; +GABA600T7 PO; +GLIM2TAB PO; +INSU100I11 SQ; +IPRA3AMP29 NEB; +METF500T PO; +METF500T16 PO; -METF500T4 PO; +METO25TA4 PO; +MONT10TA49 PO; -MONT10TA9 PO; +PRED20TA PO; -PROAIR HFA8.5 GM INH
[2019-03-14] MEDS ORDERED: ONDANSETRON PF 4 MG/2 ML VIAL. IVP ONE (18:15)
[2019-03-14] MEDS ORDERED: FAMOTIDINE 20 MG/2 ML VIAL IVP ONE (18:15)
[2019-03-14 18:21] LABS: INFLUENZA A PATIENT NEGATIVE (NEGATIVE); INFLUENZA B PATIENT NEGATIVE (NEGATIVE)
[2019-03-14 18:30] LABS: BASO # 0.1 x10^3/uL (0.0-0.2); BASO % 1 % (0-3); EOS # 0.2 x10^3/uL (0.0-0.7); EOS % 4 % (0-3); HEMATOCRIT 40.3 % (39.0-53.0); HEMOGLOBIN 13.6 g/dL (13.0-17.5); LYMPH # 2.4 x10^3/uL (1.0-4.8); LYMPH % 40 % (24-48); MEAN CORPUSCULAR HEMOGLOBIN 33 pg (25-35); MEAN CORPUSCULAR HGB CONC 34 g/dL (31-37); MEAN CORPUSCULAR VOLUME 97 fL (79-100); MONO # 0.3 x10^3/uL (0.0-1.1); MONO % 6 % (0-9); NEUT % 50 % (31-73); PLATELET COUNT 209 x10^3/uL (140-400); RED BLOOD COUNT 4.14 x10^6/uL (4.30-5.70); RED CELL DISTRIBUTION WIDTH 13.2 % (11.5-14.5); WHITE BLOOD COUNT 6.1 x10^3/uL (4.0-11.0)
[2019-03-14 18:44] LABS: PROTHROMBIN TIME PATIENT 11.9 SEC (11.7-14.0)
[2019-03-14 18:45] LABS: CALCIUM 8.5 mg/dL (8.5-10.1)
[2019-03-14 18:46] LABS: GFR 73.9; POTASSIUM 4.5 mmol/L (3.5-5.1)
[2019-03-14 18:52] LABS: ALBUMIN 2.7 g/dL (3.4-5.0); ALBUMIN/GLOBULIN RATIO 0.6 (1.0-1.7); MAGNESIUM 1.7 mg/dL (1.8-2.4); TOTAL BILIRUBIN 0.5 mg/dL (0.2-1.0)
--- NOTE | 2019-03-14 18:59 | RAD ---
PORTABLE CHEST 1V INDICATION: Fever. COMPARISON STUDY: 08/03/2018. FINDINGS: Lungs: Low lung volume. Mild bibasilar opacities. The tracheobronchial tree and hilar structures are normal. Pleura: No pleural effusion or pneumothorax. Heart and Mediastinum: Cardiomegaly. The great vessels of the thorax are normal. IMPRESSION: Low lung volume with mild bibasilar opacities, most likely subsegmental atelectasis although an infectious process not entirely excluded. Electronically signed by: Jaden Sanford MD (03/14/2019 6:56 PM) [facility]
[2019-03-14 19:01] LABS: CREATINE KINASE 43 U/L (39-308)
--- NOTE | 2019-03-14 19:10 | PHYS DOC ---
Past Medical History Past Medical History: COPD, CVA, Diabetes-Type II, High Cholesterol, Hypertension, Other Additional Past Medical Histor: hiatal hernia, left sided weakness post cva, chronic leg pain/edema obesity Past Surgical History: Other Additional Past Surgical Histo: UMBILICAL HERNIA SX Alcohol Use: None Drug Use: None Adult General Chief Complaint Chief Complaint: ABDOMINAL PAIN HPI HPI Patient is a 68 year old male with history of COPD, CVA with left-sided w eakness, hypertension, high cholesterol, diabetes type 2, who presents to the ED today to be evaluated for generalized abdominal pain that began 4 days ago. Patient is a poor historian. Unable to write on describes the pain. Is also reporting a rash throughout his body that he noted this morning. He is also complaining of diarrhea that began today. Review of Systems Review of Systems Constitutional: Denies fever or chills [] Eyes: Denies change in visual acuity, redness, or eye pain [] HENT: Denies nasal congestion or sore throat [] Respiratory: Denies cough or shortness of breath [] Cardiovascular: No additional information not addressed in HPI [] GI: Reports generalized abdominal pain with diarrhea, denies any nausea vomiting : Denies dysuria or hematuria [] Musculoskeletal: Denies back pain or joint pain [] Integument: Reports a rash Neurologic: Denies headache, focal weakness or sensory changes [] All other systems were reviewed and found to be within normal limits, except as documented in this note. Current Medications Current Medications Current Medications Medications (Trade) Dose Ordered Sig/[facility] Start Time Stop Time Status Last Admin Dose Admin Acetaminophen (Tylenol) 1,000 mg 1X ONCE 03/14/19 19:30 03/14/19 19:36 DC 03/14/19 19:48 1,000 MG Famotidine (Pepcid Vial) 20 mg 1X ONCE 03/14/19 18:15 03/14/19 18:20 DC 03/14/19 18:37 20 MG Hydralazine HCl (Apresoline Inj) 10 mg 1X ONCE 03/14/19 19:30 03/14/19 19:36 DC 03/14/19 19:48 10 MG Info (CONTRAST GIVEN -- Rx MONITORING) 1 each PRN DAILY PRN 03/14/19 19:30 03/16/19 19:29 Iohexol (Omnipaque 300 Mg/ml) 75 ml 1X ONCE 03/14/19 19:15 03/14/19 19:16 DC 03/14/19 19:30 75 ML Ondansetron HCl (Zofran) 4 mg 1X ONCE 03/14/19 18:15 03/14/19 18:20 DC 03/14/19 18:37 4 MG Sodium Chloride 1,000 ml @ 1,000 mls/hr 1X ONCE 03/14/19 19:30 03/14/19 20:29 DC 03/14/19 19:47 1,000 MLS/HR Allergies Allergies Allergies Coded Allergies Type Severity Reaction Last Updated Verified Penicillins Allergy Intermediate PT DOESN'T REMEMBER 03/21/16 Yes bacitracin Allergy Intermediate 10/25/14 Yes chlorpheniramine Allergy Intermediate 10/25/14 Yes ciprofloxacin Allergy Intermediate 10/25/14 Yes codeine Allergy Intermediate 10/25/14 Yes dextromethorphan Allergy Intermediate 10/25/14 Yes felodipine Allergy Intermediate 10/25/14 Yes influenza virus vaccine, specific Allergy Intermediate 10/25/14 Yes neomycin Allergy Intermediate 10/25/14 Yes phenylephrine Allergy Intermediate 10/25/14 Yes polymyxin B Allergy Intermediate 10/25/14 Yes sulfamethoxazole Allergy Intermediate 10/25/14 Yes trimethoprim Allergy Intermediate 10/25/14 Yes Physical Exam Physical Exam Constitutional: Well developed, well nourished, no acute distress, non-toxic appearance. [] HENT: Normocephalic, atraumatic, bilateral external ears normal, oropharynx moist, no oral exudates, nose normal. [] Eyes: PERRLA, EOMI, conjunctiva normal, no discharge. [] Neck: Normal range of motion, no tenderness, supple, no stridor. [] Cardiovascular: Tachycardic Lungs & Thorax: Bilateral breath sounds clear to auscultation [] Abdomen: Rounded abdomen. Bowel sounds normal, soft, no tenderness, no masses, no pulsatile masses. [] Skin: Warm, dry, petechiae scattered rash noted throughout the body Back: No tenderness, no CVA tenderness. [] Extremities: No tenderness, no cyanosis, no clubbing, ROM intact, no edema. [] Neurologic: Alert and oriented X 3, normal motor function, normal sensory function, no focal deficits noted. [] Psychologic: Affect normal, judgement normal, mood normal. [] Current Patient Data Vital Signs Vital Signs Date Time Temp Pulse Resp B/P (MAP) Pulse Ox O2 Delivery O2 Flow Rate FiO2 03/14/19 19:48 107 166/81 03/14/19 19:30 19 Room Air 03/14/19 19:00 94 03/14/19 17:40 99.2 99.2 Lab Values Laboratory Tests Test 03/14/19 17:40 03/14/19 18:05 03/14/19 19:55 Influenza Type A Antigen Negative (NEGATIVE) Influenza Type B Antigen Negative (NEGATIVE) White Blood Count 6.1 x10^3/uL (4.0-11.0) Red Blood Count 4.14 x10^6/uL (4.30-5.70) L Hemoglobin 13.6 g/dL (13.0-17.5) Hematocrit 40.3 % (39.0-53.0) Mean Corpuscular Volume 97 fL (79-100) Mean Corpuscular Hemoglobin 33 pg (25-35) Mean Corpuscular Hemoglobin Concent 34 g/dL (31-37) Red Cell Distribution Width 13.2 % (11.5-14.5) Platelet Count 209 x10^3/uL (140-400) Neutrophils (%) (Auto) 50 % (31-73) Lymphocytes (%) (Auto) 40 % (24-48) Monocytes (%) (Auto) 6 % (0-9) Eosinophils (%) (Auto) 4 % (0-3) H Basophils (%) (Auto) 1 % (0-3) Neutrophils # (Auto) 3.0 x10^3/uL (1.8-7.7) Lymphocytes # (Auto) 2.4 x10^3/uL (1.0-4.8) Monocytes # (Auto) 0.3 x10^3/uL (0.0-1.1) Eosinophils # (Auto) 0.2 x10^3/uL (0.0-0.7) Basophils # (Auto) 0.1 x10^3/uL (0.0-0.2) Prothrombin Time 11.9 SEC (11.7-14.0) Prothrombin Time INR 0.9 (0.8-1.1) Activated Partial Thromboplast Time 26 SEC (24-38) Sodium Level 141 mmol/L (136-145) Potassium Level 4.5 mmol/L (3.5-5.1) Chloride Level 102 mmol/L (98-107) Carbon Dioxide Level 32 mmol/L (21-32) Anion Gap 7 (6-14) Blood Urea Nitrogen 18 mg/dL (8-26) Creatinine 1.0 mg/dL (0.7-1.3) Estimated GFR (Cockcroft-Gault) 73.9 BUN/Creatinine Ratio 18 (6-20) Glucose Level 295 mg/dL (70-99) H Lactic Acid Level 2.3 mmol/L (0.4-2.0) H Calcium Level 8.5 mg/dL (8.5-10.1) Magnesium Level 1.7 mg/dL (1.8-2.4) L Total Bilirubin 0.5 mg/dL (0.2-1.0) Aspartate Amino Transferase (AST) 27 U/L (15-37) Alanine Aminotransferase (ALT) 38 U/L (16-63) Alkaline Phosphatase 61 U/L (46-116) Creatine Kinase 43 U/L (39-308) Creatine Kinase MB (Mass) 0.8 ng/mL (0.0-3.6) Creatine Kinase MB Relative Index % (0-4) Troponin I Quantitative < 0.017 ng/mL (0.000-0.055) XS-Xbk-E-Type Natriuretic Peptide 63 pg/mL (0-124) Total Protein 7.0 g/dL (6.4-8.2) Albumin 2.7 g/dL (3.4-5.0) L Albumin/Globulin Ratio 0.6 (1.0-1.7) L Lipase 109 U/L (73-393) Procalcitonin < 0.10 ng/mL (0.00-0.10) Thyroid Stimulating Hormone (TSH) 1.084 uIU/mL (0.358-3.74) Urine Collection Type Unknown Urine Color Yellow Urine Clarity Clear Urine pH 7.5 Urine Specific Veyo >=1.030 Urine Protein Negative mg/dL (NEG-TRACE) Urine Glucose (UA) >=1000 mg/dL (NEG) Urine Ketones (Stick) 15 mg/dL (NEG) Urine Blood Negative (NEG) Urine Nitrite Negative (NEG) Urine Bilirubin Negative (NEG) Urine Urobilinogen Dipstick 1.0 mg/dL (0.2 mg/dL) Urine Leukocyte Esterase Negative (NEG) Urine RBC 3-5 /HPF (0-2) Urine WBC 0 /HPF (0-4) Urine Bacteria 0 /HPF (0-FEW) Urine Opiates Screen Neg (NEG) Urine Methadone Screen Neg (NEG) Urine Barbiturates Neg (NEG) Urine Phencyclidine Screen Neg (NEG) Urine Amphetamine/Methamphetamine Neg (NEG) Urine Benzodiazepines Screen Neg (NEG) Urine Cocaine Screen Neg (NEG) Urine Cannabinoids Screen Neg (NEG) Urine Ethyl Alcohol Neg (NEG) Laboratory Tests 03/14/19 18:05 Laboratory Tests 03/14/19 18:05 EKG EKG 1842 Interpreted by tachycardia with HR of 144 no STEMI Radiology/Procedures Radiology/Procedures []PROCEDURE: PORTABLE CHEST 1V PORTABLE CHEST 1V INDICATION: Fever. COMPARISON STUDY: 08/03/2018. FINDINGS: Lungs: Low lung volume. Mild bibasilar opacities. The tracheobronchial tree and hilar structures are normal. Pleura: No pleural effusion or pneumothorax. Heart and Mediastinum: Cardiomegaly. The great vessels of the thorax are normal. IMPRESSION: Low lung volume with mild bibasilar opacities, most likely subsegmental atelectasis although an infectious process not entirely excluded. Electronically signed by: Iris Kwong MD (03/14/2019 6:56 PM) [facility] DICTATED and SIGNED BY: IRIS KWONG MD DATE: 03/14/19 1856 PROCEDURE: CT ABD PELV W/ IV CONTRST ONLY CT ABD PELV W/ IV CONTRST ONLY History: Abdominal pain, diarrhea Comparison: 01/14/2018 Technique: After administration of intravenous contrast, helical CT of the abdomen and pelvis was performed from the lung bases through the ischial tuberosities. Coronal and sagittal reconstructions were obtained. 75 mL of Omnipaque 300 were used. One or more of the following dose reduction techniques were utilized: Automated exposure control (AEC), Adjustment of mA and/or kV according to patient size, Use of iterative reconstruction technique such as ASiR, CT scan done according to ALARA and image gently/image wisely Abdomen Findings: The visualized lung bases are clear. Liver measures 19 cm in craniocaudad. Hepatic steatosis. The gallbladder, pancreas, and bilateral adrenal glands are normal. Small splenic cyst versus hemangioma, stable. Symmetric renal enhancement. Stable renal cysts. There is no hydronephrosis. The visualized loops of small bowel are normal. The visualized loops of large bowel are normal. There is no evidence of bowel obstruction. Appendix is normal. There is no free fluid. There is no mesenteric or retroperitoneal adenopathy. Infrarenal abdominal aortic aneurysm measuring up to 3.5 cm, previously 3.2 cm. Moderate aortoiliac atherosclerotic disease. Pelvis Findings: Urinary bladder is normal. No pelvic free fluid. There is no pelvic or inguinal adenopathy. Degenerative changes of the spine. IMPRESSION: 1. No acute findings. 2. Infrarenal abdominal aortic aneurysm measuring 3.5 cm, previously 3.2 cm. 3. Hepatomegaly and hepatic steatosis. Electronically signed by: Iris Kwong MD (03/14/2019 7:45 PM) [facility] DICTATED and SIGNED BY: IRIS KWONG MD DATE: 03/14/191944 Course & Med Decision Making Course & Med Decision Making Pertinent Labs and Imaging studies reviewed. (See chart for details) This is a 68-year-old male patient presenting to the ED today complaining of generalized abdominal pain for 4 days, with diarrhea that began today as well as a rash that he noted today. Patient is a very poor historian. CBC with a normal WBC of has no acute findings, CMP with glucose of 295 month and ended up is normal. Lactic is 2.3, repeat lactic 3 hours later 1.7. Vitals on arrival temperature 99.2 heart rate 146 on arrival, patient was given IV fluids. Blood pressure 188/102, O2 sats 96% on room air. Patient was also given hydralazine, blood pressure came down to 155/83 heart rate has come down to 108. Chest x-ray noted for atelectasis but they could not rule out any infection. CT of the abdomen and pelvic was negative for any acute findings. Spoke with Dr. Aguillon who accepted patient for admission. Annabelle Disclaimer Annabelle Disclaimer This electronic medical record was generated, in whole or in part, using a voice recognition dictation system. Departure Departure Impression: Primary Impression: Abdominal pain Additional Impressions: Elevated lactic acid level Fever Rash Disposition: ADMITTED INPATIENT Condition: STABLE Referrals: UNKNOWN PCP NAME (PCP) Problem Qualifiers Primary Impression: Abdominal pain Abdominal location: generalized Qualified Codes: R10.84 - Generalized abdominal pain Additional Impressions: Fever Fever type: unspecified Qualified Codes: R50.9 - Fever, unspecified MUTUNGA,GILBERT CLARK Mar 14, 2019 19:10
[2019-03-14] MEDS ORDERED: IOHEXOL 300 MG/ML 100ML VIAL. IV ONE (19:15)
[2019-03-14] MEDS ORDERED: ACETAMINOPHEN 500 MG TABLET PO ONE (19:30)
[2019-03-14] MEDS ORDERED: CONTRAST GIVEN. MC PRN (19:30)
[2019-03-14] MEDS ORDERED: hydrALAZINE 20 MG/ML VIAL. IVP ONE (19:30)
[2019-03-14] MEDS ORDERED: IV NORMAL SALINE 1000ML BAG 1,000 ML IV ONE ×2 (19:30→23:00)
--- NOTE | 2019-03-14 19:48 | RAD ---
CT ABD PELV W/ IV CONTRST ONLY History: Abdominal pain, diarrhea Comparison: 01/14/2018 Technique: After administration of intravenous contrast, helical CT of the abdomen and pelvis was performed from the lung bases through the ischial tuberosities. Coronal and sagittal reconstructions were obtained. 75 mL of Omnipaque 300 were used. One or more of the following dose reduction techniques were utilized: Automated exposure control (AEC), Adjustment of mA and/or kV according to patient size, Use of iterative reconstruction technique such as ASiR, CT scan done according to ALARA and image gently/image wisely Abdomen Findings: The visualized lung bases are clear. Liver measures 19 cm in craniocaudad. Hepatic steatosis. The gallbladder, pancreas, and bilateral adrenal glands are normal. Small splenic cyst versus hemangioma, stable. Symmetric renal enhancement. Stable renal cysts. There is no hydronephrosis. The visualized loops of small bowel are normal. The visualized loops of large bowel are normal. There is no evidence of bowel obstruction. Appendix is normal. There is no free fluid. There is no mesenteric or retroperitoneal adenopathy. Infrarenal abdominal aortic aneurysm measuring up to 3.5 cm, previously 3.2 cm. Moderate aortoiliac atherosclerotic disease. Pelvis Findings: Urinary bladder is normal. No pelvic free fluid. There is no pelvic or inguinal adenopathy. Degenerative changes of the spine. IMPRESSION: 1. No acute findings. 2. Infrarenal abdominal aortic aneurysm measuring 3.5 cm, previously 3.2 cm. 3. Hepatomegaly and hepatic steatosis. Electronically signed by: Jaden Sanford MD (03/14/2019 7:45 PM) [facility]
[2019-03-14 20:04] LABS: BILIRUBIN,URINE NEGATIVE (NEG); COLOR,URINE YELLOW; NITRITE,URINE NEGATIVE (NEG); PH,URINE 7.5; PROTEIN,URINE NEGATIVE (NEG-TRACE)
[2019-03-14 20:09] LABS: CLARITY,URINE CLEAR
[2019-03-14 20:10] LABS: BACTERIA,URINE 0 /HPF (0-FEW); WBC,URINE 0 /HPF (0-4)
[2019-03-14 20:11] LABS: BARBITURATES NEG (NEG); BENZODIAZEPINES NEG (NEG); CANNABINOIDS NEG (NEG); COCAINE NEG (NEG); METHADONE NEG (NEG); OPIATES NEG (NEG); PHENCYCLIDINE NEG (NEG)
[2019-03-14 20:12] LABS: AMPHETAMINE/METHAMPHETAMINE NEG (NEG)
[2019-03-14 22:30] VITALS: BP 147/83
[2019-03-14] MEDS ORDERED: ACETAMINOPHEN 325 MG TABLET. PO PRN (22:30)
[2019-03-14] MEDS ORDERED: fentaNYL PF VIAL 100 MCG/2 ML VIAL IV PRN (22:30)
[2019-03-14] MEDS ORDERED: ONDANSETRON PF 4 MG/2 ML VIAL. IV PRN (22:30)
[2019-03-14] MEDS ORDERED: GABA600T7 PO (22:52)
[2019-03-15 03:15] VITALS: BP 143/81
[2019-03-15 07:00] VITALS: BP 174/102
[2019-03-15 08:02] LABS: BASO % 1 % (0-3); EOS # 0.2 x10^3/uL (0.0-0.7); EOS % 5 % (0-3); HEMATOCRIT 37.8 % (39.0-53.0); HEMOGLOBIN 12.8 g/dL (13.0-17.5); LYMPH # 2.3 x10^3/uL (1.0-4.8); LYMPH % 42 % (24-48); MEAN CORPUSCULAR HEMOGLOBIN 33 pg (25-35); MEAN CORPUSCULAR HGB CONC 34 g/dL (31-37); MEAN CORPUSCULAR VOLUME 97 fL (79-100); MONO # 0.4 x10^3/uL (0.0-1.1); MONO % 7 % (0-9); NEUT # 2.4 x10^3/uL (1.8-7.7); NEUT % 45 % (31-73); PLATELET COUNT 187 x10^3/uL (140-400); RED CELL DISTRIBUTION WIDTH 13.6 % (11.5-14.5); WHITE BLOOD COUNT 5.4 x10^3/uL (4.0-11.0)
[2019-03-15 08:06] LABS: ALBUMIN 2.6 g/dL (3.4-5.0); ALBUMIN/GLOBULIN RATIO 0.8 (1.0-1.7); CALCIUM 8.2 mg/dL (8.5-10.1); CREATININE 0.7 mg/dL (0.7-1.3); GFR 111.5; POTASSIUM 3.9 mmol/L (3.5-5.1); TOTAL BILIRUBIN 0.6 mg/dL (0.2-1.0)
--- NOTE | 2019-03-15 08:46 | PDOC1 ---
History and Physical Date of Admission Date of Admission DATE: 03/15/19 TIME: 08:45 Identification/Chief Complaint Chief Complaint Diarrhea Source Source: Patient History of Present Illness History of Present Illness Mr Andrews is a 68yo M w/ PMHx COPD, CVA, Diabetes-Type II, High Cholesterol, Hypertension, hiatal hernia, left sided weakness post cva, chronic leg p ain/edema obesity who presents to the ED today to be evaluated for generalized abdominal pain that began 4 days ago. He is a poor historian, told the ED and nursing staff he has had epigastric abdominal pain and a rash throughout his body as well as diarrhea that began 03/14/2019. He underwent CT abdomen/pelvis which was negative for acute findings. Slight increase in AAA size to 3.5cm. Lactic acid 2.3, mag 1.7. CBC with a normal WBC of has no acute findings, CMP with glucose of 295 month and ended up is normal. Vitals on arrival temperature 99.2 heart rate 146 on arrival, patient was given IV fluids. Blood pressure 188/102, O2 sats 96% on room air. Patient was also given hydralazine, blood pressure came down to 155/83 heart rate has come down to 108. Chest x-ray noted for atelectasis but they could not rule out any infection. Admitted for pain control. On my evaluation he is asking for food and to go home. Has not been taking many of his home medications lately, including metoprolol. HR was in 140s sinus in the ED. Past Medical History Cardiovascular: HTN Pulmonary: COPD, Other CENTRAL NERVOUS SYSTEM: CVA GI: GERD Endocrine: Diabetes Past Surgical History Past Surgical History: Hernia Repair Family History Family History: Coronary Artery Disease, High Cholestrol, Hypertension Social History Smoke: No ALCOHOL: none Drugs: None Current Problem List Problem List Problems Medical Problems: (1) Abdominal pain Status: Acute (2) Rash Status: Acute Current Medications Current Medications Current Medications Ondansetron HCl (Zofran) 4 mg 1X ONCE IVP Last administered on 03/14/19at 18:37; Start 03/14/19 at 18:15; Stop 03/14/19 at 18:20; Status DC Famotidine (Pepcid Vial) 20 mg 1X ONCE IVP Last administered on 03/14/19at 18:37; Start 2/2/20 at 18:15; Stop 03/14/19 at 18:20; Status DC Iohexol (Omnipaque 300 Mg/ml) 75 ml 1X ONCE IV Last administered on 03/14/19at 19:30; Start 03/14/19 at 19:15; Stop 03/14/19 at 19:16; Status DC Info (CONTRAST GIVEN -- Rx MONITORING) 1 each PRN DAILY PRN MC SEE COMMENTS; Start 03/14/19 at 19:30; Stop 03/16/19 at 19:29 Sodium Chloride 1,000 ml @ 1,000 mls/hr 1X ONCE IV Last administered on 03/14/19at 19:47; Start 03/14/19 at 19:30; Stop 03/14/19 at 20:29; Status DC Hydralazine HCl (Apresoline Inj) 10 mg 1X ONCE IVP Last administered on 03/14/19at 19:48; Start 03/14/19 at 19:30; Stop 03/14/19 at 19:36; Status DC Acetaminophen (Tylenol) 1,000 mg 1X ONCE PO Last administered on 03/14/19at 19:48; Start 03/14/19 at 19:30; Stop 03/14/19 at 19:36; Status DC Ondansetron HCl (Zofran) 4 mg PRN Q8HRS PRN IV NAUSEA/VOMITING 1ST CHOICE; Start 03/14/19 at 22:30; Stop 03/15/19 at 22:29 Fentanyl Citrate (Fentanyl 2ml Vial) 50 mcg PRN Q1HR PRN IV SEVERE PAIN 7-10 Last administered on 03/15/19at 08:02; Start 03/14/19 at 22:30; Stop 03/15/19 at 22:29 Acetaminophen (Tylenol) 650 mg PRN Q4HRS PRN PO FEVER; Start 03/14/19 at 22:30; Stop 03/15/19 at 22:29 Sodium Chloride 1,000 ml @ 125 mls/hr 1X ONCE IV Last administered on 03/15/19at 02:27; Start 03/14/19 at 23:00; Stop 03/15/19 at 06:59; Status DC Active Scripts Active Humalog (Insulin Lispro) 100 Unit/1 Ml Insuln.pen 0 Units SQ TIDWMEALS 30 Days Duoneb 0.5-3(2.5) Mg/3 Ml (Albuterol/Ipratropium) 3 Ml Ampul.neb 3 Ml NEB RTQID 30 Days Amaryl (Glimepiride) 2 Mg Tablet 2 Mg PO DAILY 30 Days Prednisone 20 Mg Tablet 40 Mg PO DAILY 3 Days Aspirin 325 Mg Tablet 325 Mg PO DAILYWBKFT 30 Days Metoprolol Tartrate 25 Mg Tablet 25 Mg PO BID 30 Days Montelukast Sodium Tablet (Montelukast Sodium) 10 Mg Tablet 10 Mg PO QHS Gabapentin 600 Mg Tablet 600 Mg PO BID 30 Days Tessalon Perle (Benzonatate) 100 Mg Capsule 100 Mg PO TID PRN 14 Days Mupirocin Ointment (Mupirocin) 22 Gm Oint...g. 1 Sudheer TP TID Nystatin 15 Gm Powder 1 Sudheer TP BID Reported Gabapentin 600 Mg Tablet 600 Mg PO BID Pepcid (Famotidine) 20 Mg Tablet 20 Mg PO BID Allergies Allergies: Coded Allergies: Penicillins (Verified Allergy, Intermediate, PT DOESN'T REMEMBER, 03/21/16) bacitracin (Verified Allergy, Intermediate, 10/25/14) chlorpheniramine (Verified Allergy, Intermediate, 10/25/14) ciprofloxacin (Verified Allergy, Intermediate, 10/25/14) codeine (Verified Allergy, Intermediate, 10/25/14) dextromethorphan (Verified Allergy, Intermediate, 10/25/14) felodipine (Verified Allergy, Intermediate, 10/25/14) influenza virus vaccine, specific (Verified Allergy, Intermediate, 10/25/14) neomycin (Verified Allergy, Intermediate, 10/25/14) phenylephrine (Verified Allergy, Intermediate, 10/25/14) polymyxin B (Verified Allergy, Intermediate, 10/25/14) sulfamethoxazole (Verified Allergy, Intermediate, 10/25/14) trimethoprim (Verified Allergy, Intermediate, 10/25/14) ROS General: YES: Fatigue, Malaise, Appetite; No: Chills, Night Sweats, Other PSYCHOLOGICAL ROS: YES: Anxiety, Behavioral Disorder, Concentration difficultie , Memory difficulties, Mood Swings, Obsessive thoughts; No: Decreased libido, Depression, Disorientation, Hallucinations, Hostility, Irritablity, Physical abuse, Sexual abuse, Sleep disturbances, Suicidal ideation, Other Eyes: No Blurry vision, No Decreased vision, No Double vision, No Dry eyes, No Excessive tearing, No Eye Pain, No Itchy Eyes, No Loss of vision, No Photophobia, No Scotomata, No Uses contacts, No Uses glasses, No Other HEENT: No: Heacaches, Visual Changes, Hearing change, Nasal congestion, Nasal discharge, Oral lesions, Sinus pain, Sore Throat, Epistaxis, Sneezing, Snoring, Tinnitus, Vertigo, Vocal changes, Other ALLERGY AND IMMUNOLOGY: No: Hives, Insect Bite Sensitivity, Itchy/Watery Eyes, Nasal Congestion, Post Nasal Drip, Seasonal Allergies, Other Hematological and Lymphatic: No: Bleeding Problems, Blood Clots, Blood Transfusions, Brusing, Night Sweats, Pallor, Swollen Lymph Nodes, Other ENDOCRINE: No: Breast Changes, Galactorrhea, Hair Pattern Changes, Hot Flashes, Malaise/lethargy, Mood Swings, Palpitations, Polydipsia/polyuria, Skin Changes, Temperature Intolerance, Unexpected Weight Changes, Other Breast: No New/Changing Breast Lumps, No Nipple changes, No Nipple discharge, No Other Respiratory: No: Cough, Hemoptysis, Orthopnea, Pleuritic Pain, Shortness of breath, SOB with excertion, Sputum Changes, Stridor, Tachypnea, Wheezing, Other Cardiovascular: No Chest Pain, No Palpitations, No Orthopnea, No Paroxysmal Noc. Dyspnea, No Edema, No Lt Headedness, No Other Gastrointestinal: Yes Abdominal Pain, Yes Diarrhea; No Nausea, No Vomiting, No Constipation, No Melena, No Hematochezia, No Other Genitourinary: No Dysuria, No Frequency, No Incontinence, No Hematuria, No Retention, No Discharge, No Urgency, No Pain, No Flank Pain, No Other, No , No , No , No , No , No , No Musculoskeletal: No Gait Disturbance, No Joint Pain, No Joint Stiffness, No Joint Swelling, No Muscle Pain, No Muscular Weakness, No Pain In:, No Swelling In:, No Other Neurological: No Behavorial Changes, No Bowel/Bladder ControlChng, No Confusion, No Dizziness, No Gait Disturbance, No Headaches, No Impaired Coord/balance, No Memory Loss, No Numbness/Tingling, No Seizures, No Speech Problems, No Tremors, No Visual Changes, No Weakness, No Other Skin: No Dry Skin, No Eczema, No Hair Changes, No Lumps, No Mole Changes, No Mottling, No Nail Changes, No Pruritus, No Rash, No Skin Lesion Changes, No Other, No Acne Physical Exam General: Alert, Cooperative, No acute distress HEENT: Atraumatic, PERRLA, EOMI, Mucous membr. moist/pink Lungs: Clear to auscultation, Normal air movement Heart: S1S2, RRR, no thrills, no rubs, no gallops, no murmurs Abdomen: Normal bowel sounds, Soft, No tenderness, No hepatosplenomegaly, No masses Rectal Exam: not examined Extremities: No clubbing, No cyanosis, No edema, Normal pulses, No tenderness/swelling Skin: No rashes, No breakdown, No significant lesion Neuro: Normal gait, Normal speech, Strength at 5/5 X4 ext, Normal tone, Sensation intact, Cranial nerves 3-12 NL, Reflexes 2+ Psych/Mental Status: Mental status NL, Mood NL Vitals Vitals Vital Signs Date Time Temp Pulse Resp B/P (MAP) Pulse Ox O2 Delivery O2 Flow Rate FiO2 03/15/19 08:02 95 Room Air 03/15/19 07:00 99.5 97 18 174/102 (126) 99.5 Labs Labs Laboratory Tests Test 03/14/19 17:40 03/14/19 18:05 03/14/19 19:55 03/14/19 22:19 Influenza Type A Antigen Negative (NEGATIVE) Influenza Type B Antigen Negative (NEGATIVE) White Blood Count 6.1 x10^3/uL (4.0-11.0) Red Blood Count 4.14 x10^6/uL (4.30-5.70) Hemoglobin 13.6 g/dL (13.0-17.5) Hematocrit 40.3 % (39.0-53.0) Mean Corpuscular Volume 97 fL (79-100) Mean Corpuscular Hemoglobin 33 pg (25-35) Mean Corpuscular Hemoglobin Concent 34 g/dL (31-37) Red Cell Distribution Width 13.2 % (11.5-14.5) Platelet Count 209 x10^3/uL (140-400) Neutrophils (%) (Auto) 50 % (31-73) Lymphocytes (%) (Auto) 40 % (24-48) Monocytes (%) (Auto) 6 % (0-9) Eosinophils (%) (Auto) 4 % (0-3) Basophils (%) (Auto) 1 % (0-3) Neutrophils # (Auto) 3.0 x10^3/uL (1.8-7.7) Lymphocytes # (Auto) 2.4 x10^3/uL (1.0-4.8) Monocytes # (Auto) 0.3 x10^3/uL (0.0-1.1) Eosinophils # (Auto) 0.2 x10^3/uL (0.0-0.7) Basophils # (Auto) 0.1 x10^3/uL (0.0-0.2) Prothrombin Time 11.9 SEC (11.7-14.0) Prothromb Time International Ratio 0.9 (0.8-1.1) Activated Partial Thromboplast Time 26 SEC (24-38) Sodium Level 141 mmol/L (136-145) Potassium Level 4.5 mmol/L (3.5-5.1) Chloride Level 102 mmol/L (98-107) Carbon Dioxide Level 32 mmol/L (21-32) Anion Gap 7 (6-14) Blood Urea Nitrogen 18 mg/dL (8-26) Creatinine 1.0 mg/dL (0.7-1.3) Estimated GFR (Cockcroft-Gault) 73.9 BUN/Creatinine Ratio 18 (6-20) Glucose Level 295 mg/dL (70-99) Lactic Acid Level 2.3 mmol/L (0.4-2.0) 1.7 mmol/L (0.4-2.0) Calcium Level 8.5 mg/dL (8.5-10.1) Magnesium Level 1.7 mg/dL (1.8-2.4) Total Bilirubin 0.5 mg/dL (0.2-1.0) Aspartate Amino Transf (AST/SGOT) 27 U/L (15-37) Alanine Aminotransferase (ALT/SGPT) 38 U/L (16-63) Alkaline Phosphatase 61 U/L (46-116) Creatine Kinase 43 U/L (39-308) Creatine Kinase MB (Mass) 0.8 ng/mL (0.0-3.6) Creatine Kinase MB Relative Index % (0-4) Troponin I Quantitative < 0.017 ng/mL (0.000-0.055) AM-Oad-L-Type Natriuretic Peptide 63 pg/mL (0-124) Total Protein 7.0 g/dL (6.4-8.2) Albumin 2.7 g/dL (3.4-5.0) Albumin/Globulin Ratio 0.6 (1.0-1.7) Lipase 109 U/L (73-393) Procalcitonin < 0.10 ng/mL (0.00-0.10) Thyroid Stimulating Hormone (TSH) 1.084 uIU/mL (0.358-3.74) Urine Collection Type Unknown Urine Color Yellow Urine Clarity Clear Urine pH 7.5 Urine Specific [place] >=1.030 Urine Protein Negative mg/dL (NEG-TRACE) Urine Glucose (UA) >=1000 mg/dL (NEG) Urine Ketones (Stick) 15 mg/dL (NEG) Urine Blood Negative (NEG) Urine Nitrite Negative (NEG) Urine Bilirubin Negative (NEG) Urine Urobilinogen Dipstick 1.0 mg/dL (0.2 mg/dL) Urine Leukocyte Esterase Negative (NEG) Urine RBC 3-5 /HPF (0-2) Urine WBC 0 /HPF (0-4) Urine Bacteria 0 /HPF (0-FEW) Urine Opiates Screen Neg (NEG) Urine Methadone Screen Neg (NEG) Urine Barbiturates Neg (NEG) Urine Phencyclidine Screen Neg (NEG) Urine Amphetamine/Methamphetamine Neg (NEG) Urine Benzodiazepines Screen Neg (NEG) Urine Cocaine Screen Neg (NEG) Urine Cannabinoids Screen Neg (NEG) Urine Ethyl Alcohol Neg (NEG) Test 03/15/19 06:25 White Blood Count 5.4 x10^3/uL (4.0-11.0) Red Blood Count 3.90 x10^6/uL (4.30-5.70) Hemoglobin 12.8 g/dL (13.0-17.5) Hematocrit 37.8 % (39.0-53.0) Mean Corpuscular Volume 97 fL (79-100) Mean Corpuscular Hemoglobin 33 pg (25-35) Mean Corpuscular Hemoglobin Concent 34 g/dL (31-37) Red Cell Distribution Width 13.6 % (11.5-14.5) Platelet Count 187 x10^3/uL (140-400) Neutrophils (%) (Auto) 45 % (31-73) Lymphocytes (%) (Auto) 42 % (24-48) Monocytes (%) (Auto) 7 % (0-9) Eosinophils (%) (Auto) 5 % (0-3) Basophils (%) (Auto) 1 % (0-3) Neutrophils # (Auto) 2.4 x10^3/uL (1.8-7.7) Lymphocytes # (Auto) 2.3 x10^3/uL (1.0-4.8) Monocytes # (Auto) 0.4 x10^3/uL (0.0-1.1) Eosinophils # (Auto) 0.2 x10^3/uL (0.0-0.7) Basophils # (Auto) 0.0 x10^3/uL (0.0-0.2) Sodium Level 144 mmol/L (136-145) Potassium Level 3.9 mmol/L (3.5-5.1) Chloride Level 106 mmol/L (98-107) Carbon Dioxide Level 27 mmol/L (21-32) Anion Gap 11 (6-14) Blood Urea Nitrogen 15 mg/dL (8-26) Creatinine 0.7 mg/dL (0.7-1.3) Estimated GFR (Cockcroft-Gault) 111.5 BUN/Creatinine Ratio 21 (6-20) Glucose Level 189 mg/dL (70-99) Calcium Level 8.2 mg/dL (8.5-10.1) Total Bilirubin 0.6 mg/dL (0.2-1.0) Aspartate Amino Transf (AST/SGOT) 15 U/L (15-37) Alanine Aminotransferase (ALT/SGPT) 25 U/L (16-63) Alkaline Phosphatase 53 U/L (46-116) Total Protein 6.0 g/dL (6.4-8.2) Albumin 2.6 g/dL (3.4-5.0) Albumin/Globulin Ratio 0.8 (1.0-1.7) Laboratory Tests Test 03/14/19 17:40 03/14/19 18:05 03/14/19 19:55 03/14/19 22:19 Influenza Type A Antigen Negative (NEGATIVE) Influenza Type B Antigen Negative (NEGATIVE) White Blood Count 6.1 x10^3/uL (4.0-11.0) Red Blood Count 4.14 x10^6/uL (4.30-5.70) Hemoglobin 13.6 g/dL (13.0-17.5) Hematocrit 40.3 % (39.0-53.0) Mean Corpuscular Volume 97 fL (79-100) Mean Corpuscular Hemoglobin 33 pg (25-35) Mean Corpuscular Hemoglobin Concent 34 g/dL (31-37) Red Cell Distribution Width 13.2 % (11.5-14.5) Platelet Count 209 x10^3/uL (140-400) Neutrophils (%) (Auto) 50 % (31-73) Lymphocytes (%) (Auto) 40 % (24-48) Monocytes (%) (Auto) 6 % (0-9) Eosinophils (%) (Auto) 4 % (0-3) Basophils (%) (Auto) 1 % (0-3) Neutrophils # (Auto) 3.0 x10^3/uL (1.8-7.7) Lymphocytes # (Auto) 2.4 x10^3/uL (1.0-4.8) Monocytes # (Auto) 0.3 x10^3/uL (0.0-1.1) Eosinophils # (Auto) 0.2 x10^3/uL (0.0-0.7) Basophils # (Auto) 0.1 x10^3/uL (0.0-0.2) Prothrombin Time 11.9 SEC (11.7-14.0) Prothromb Time International Ratio 0.9 (0.8-1.1) Activated Partial Thromboplast Time 26 SEC (24-38) Sodium Level 141 mmol/L (136-145) Potassium Level 4.5 mmol/L (3.5-5.1) Chloride Level 102 mmol/L (98-107) Carbon Dioxide Level 32 mmol/L (21-32) Anion Gap 7 (6-14) Blood Urea Nitrogen 18 mg/dL (8-26) Creatinine 1.0 mg/dL (0.7-1.3) Estimated GFR (Cockcroft-Gault) 73.9 BUN/Creatinine Ratio 18 (6-20) Glucose Level 295 mg/dL (70-99) Lactic Acid Level 2.3 mmol/L (0.4-2.0) 1.7 mmol/L (0.4-2.0) Calcium Level 8.5 mg/dL (8.5-10.1) Magnesium Level 1.7 mg/dL (1.8-2.4) Total Bilirubin 0.5 mg/dL (0.2-1.0) Aspartate Amino Transf (AST/SGOT) 27 U/L (15-37) Alanine Aminotransferase (ALT/SGPT) 38 U/L (16-63) Alkaline Phosphatase 61 U/L (46-116) Creatine Kinase 43 U/L (39-308) Creatine Kinase MB (Mass) 0.8 ng/mL (0.0-3.6) Creatine Kinase MB Relative Index % (0-4) Troponin I Quantitative < 0.017 ng/mL (0.000-0.055) JA-Oxh-Z-Type Natriuretic Peptide 63 pg/mL (0-124) Total Protein 7.0 g/dL (6.4-8.2) Albumin 2.7 g/dL (3.4-5.0) Albumin/Globulin Ratio 0.6 (1.0-1.7) Lipase 109 U/L (73-393) Procalcitonin < 0.10 ng/mL (0.00-0.10) Thyroid Stimulating Hormone (TSH) 1.084 uIU/mL (0.358-3.74) Urine Collection Type Unknown Urine Color Yellow Urine Clarity Clear Urine pH 7.5 Urine Specific [place] >=1.030 Urine Protein Negative mg/dL (NEG-TRACE) Urine Glucose (UA) >=1000 mg/dL (NEG) Urine Ketones (Stick) 15 mg/dL (NEG) Urine Blood Negative (NEG) Urine Nitrite Negative (NEG) Urine Bilirubin Negative (NEG) Urine Urobilinogen Dipstick 1.0 mg/dL (0.2 mg/dL) Urine Leukocyte Esterase Negative (NEG) Urine RBC 3-5 /HPF (0-2) Urine WBC 0 /HPF (0-4) Urine Bacteria 0 /HPF (0-FEW) Urine Opiates Screen Neg (NEG) Urine Methadone Screen Neg (NEG) Urine Barbiturates Neg (NEG) Urine Phencyclidine Screen Neg (NEG) Urine Amphetamine/Methamphetamine Neg (NEG) Urine Benzodiazepines Screen Neg (NEG) Urine Cocaine Screen Neg (NEG) Urine Cannabinoids Screen Neg (NEG) Urine Ethyl Alcohol Neg (NEG) Test 03/15/19 06:25 White Blood Count 5.4 x10^3/uL (4.0-11.0) Red Blood Count 3.90 x10^6/uL (4.30-5.70) Hemoglobin 12.8 g/dL (13.0-17.5) Hematocrit 37.8 % (39.0-53.0) Mean Corpuscular Volume 97 fL (79-100) Mean Corpuscular Hemoglobin 33 pg (25-35) Mean Corpuscular Hemoglobin Concent 34 g/dL (31-37) Red Cell Distribution Width 13.6 % (11.5-14.5) Platelet Count 187 x10^3/uL (140-400) Neutrophils (%) (Auto) 45 % (31-73) Lymphocytes (%) (Auto) 42 % (24-48) Monocytes (%) (Auto) 7 % (0-9) Eosinophils (%) (Auto) 5 % (0-3) Basophils (%) (Auto) 1 % (0-3) Neutrophils # (Auto) 2.4 x10^3/uL (1.8-7.7) Lymphocytes # (Auto) 2.3 x10^3/uL (1.0-4.8) Monocytes # (Auto) 0.4 x10^3/uL (0.0-1.1) Eosinophils # (Auto) 0.2 x10^3/uL (0.0-0.7) Basophils # (Auto) 0.0 x10^3/uL (0.0-0.2) Sodium Level 144 mmol/L (136-145) Potassium Level 3.9 mmol/L (3.5-5.1) Chloride Level 106 mmol/L (98-107) Carbon Dioxide Level 27 mmol/L (21-32) Anion Gap 11 (6-14) Blood Urea Nitrogen 15 mg/dL (8-26) Creatinine 0.7 mg/dL (0.7-1.3) Estimated GFR (Cockcroft-Gault) 111.5 BUN/Creatinine Ratio 21 (6-20) Glucose Level 189 mg/dL (70-99) Calcium Level 8.2 mg/dL (8.5-10.1) Total Bilirubin 0.6 mg/dL (0.2-1.0) Aspartate Amino Transf (AST/SGOT) 15 U/L (15-37) Alanine Aminotransferase (ALT/SGPT) 25 U/L (16-63) Alkaline Phosphatase 53 U/L (46-116) Total Protein 6.0 g/dL (6.4-8.2) Albumin 2.6 g/dL (3.4-5.0) Albumin/Globulin Ratio 0.8 (1.0-1.7) Images Images CT abdomen/pelvis - The visualized lung bases are clear. Liver measures 19 cm in craniocaudad. Hepatic steatosis. The gallbladder, pancreas, and bilateral adrenal glands are normal. Small splenic cyst versus hemangioma, stable. Symmetric renal enhancement. Stable renal cysts. There is no hydronephrosis. The visualized loops of small bowel are normal. The visualized loops of large bowel are normal. There is no evidence of bowel obstruction. Appendix is normal. There is no free fluid. There is no mesenteric or retroperitoneal adenopathy. Infrarenal abdominal aortic aneurysm measuring up to 3.5 cm, previously 3.2 cm. Moderate aortoiliac atherosclerotic disease. Pelvis Findings: Urinary bladder is normal. No pelvic free fluid. There is no pelvic or inguinal adenopathy. Degenerative changes of the spine. IMPRESSION: 1. No acute findings. 2. Infrarenal abdominal aortic aneurysm measuring 3.5 cm, previously 3.2 cm. 3. Hepatomegaly and hepatic steatosis. VTE Prophylaxis Ordered VTE Prophylaxis Devices: No VTE Pharmacological Prophylaxi: Yes Assessment/Plan Assessment/Plan A/P: Abdominal pain - likely gastroparesis. He does not wish for further testing at this time. Labs normalized. Appetite good, wishes to eat Elevated lactic acid level - likely related to diabetes, resolved Fever - none noted inpatient Rash - resolved after evaluation in ED COPD - cont home nebulizers Diabetes-Type II - refusing glucose checks. Cont home meds. needs home health for compliance High Cholesterol - Hypertension, hiatal hernia, left sided weakness post cva, chronic leg pain/edema obesity AAA - 3.5cm. Annual observation Hypertensive urgency - not clear if he is taking his medications. Will cont BB DAVID - on home CPAP Unusual behavior - he denies psychiatric history FEN - ADA diet PPX - lovenox FULL CODE Dispo - Likely can d/c if able to eat. Per prior SW note: Nitric Acid Concentrator Operator, Tevin Mcintosh, at [facility], . Tevin verified that pt was on services with him and verified pt's address, [address] [place] [address], [id number]. Tevin reported that pt does have oxygen and a CPAP at home and has had a recent sleep study. Tevin reported that pt does have a PCP, David Oviedo, with [facility] JARRDE SINGH MD Mar 15, 2019 08:46
--- NOTE | 2019-03-15 08:59 | EKG ---
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
--- NOTE | 2019-03-15 09:28 | NUR ---
Patient this morning presented with some slight agitation stating he wanted to "walk out of this building and never come back". Patient redirected and this nurse discussed why patient is here and the plan of care. Patient stated he agreed with this nurse that he would like to get his pain under control and figured out so he would stay. He is now resting in bed comfortably after PRN pain medication given and states no more concerns at this time. Patients tele to be read by Charge Nurse Solange.
[2019-03-15 11:00] VITALS: BP 163/106
--- NOTE | 2019-03-15 11:54 | NUR ---
Patient refused to have his blood sugar checked by the nurse tech or this nurse. Stated "I haven't checked that in years and I do not want to start doing it now". Education done about why they were being completed in the hospital and patient still stated he did not want to have them done. Will continue to try and monitor.
[2019-03-15] MEDS ORDERED: BENZONATATE 100 MG CAPSULE. PO PRN (13:30)
[2019-03-15] MEDS ORDERED: METOPROLOL TARTRATE 5 MG/5 ML VIAL. IVP ONE (13:30)
--- NOTE | 2019-03-15 13:31 | SNU/HH DC ---
DISCHARGE WITH HOME HEALTH DISCHARGE INFORMATION: Discharge Date: Mar 15, 2019 Final Diagnosis: Problems Medical Problems: (1) Abdominal pain Status: Acute (2) Rash Status: Acute Condition on Discharge: Stable CODE STATUS: Code Status: Full HOME HEALTH: Face to Face: I certify this patient is under my care and that I, or a nurse practitioner or physician's contact lens assistant working with me, had a face to face encounter that meets the physician face to face encounter requirements with this patient on 03/15/2019 Medical Complications: COPD, CVA Senior Living For: Assess/Skilled Observatio, Diabetic Care, Medication Management RN For Eval/Treatment: Yes Physical Therapy For: Evalulation/Treatment Occupational Therapy For: Evaluation/Treatment Home Health Aide For: Self-care AUTOMATIC PACKER OPERATOR For: Community Resources Pt Meets Homebound Status: Poor cognition POST DISCHARGE ORDERS: Activity Instructions for Disc: Resume previous activity, Activity as tolerated Weight Bearing Status after Di: As tolerated DIET AFTER DISCHARGE: ADA Wound/Incision Care: No wound care needed CHECKS AFTER DISCHARGE: Checks after discharge: Check blood press - daily, Check blood sugar, ac/hs, Check your Temp as needed, Weigh Yourself Daily TREATMENT/EQUIPMENT ORDERS: Adaptive Equipment Issued: None CERTIFICATION STATEMENT: Certification Statement: Certification Statement: Based on the above finding, I certify that this patient is confined to the home and needs intermittent snf care, physical therapy and/or speech therapy, or continues to need occupational therapy.~ This patient is under my care, and I have initiated the establishment of the plan of care.~ This patient will be followed by myself or a community physician who will periodically review the plan of care. Home Meds Active Scripts Insulin Lispro (HUMALOG) 100 Unit/1 Ml Insuln.pen, 0 UNITS SQ TIDWMEALS for GLUCOSE CONTROL for 30 Days, #1 EACH Prov:KLAUDIA HAY MD 08/06/18 Ipratropium/Albuterol Sulfate (DUONEB 0.5-3(2.5) MG/3 ML) 3 Ml Ampul.neb, 3 ML NEB RTQID for COPD for 30 Days, #120 EACH Prov:KLAUDIA HAY MD 08/06/18 Glimepiride (AMARYL) 2 Mg Tablet, 2 MG PO DAILY for 30 Days, #30 TAB Prov:ANGELA DAWSON MD 07/22/17 Aspirin (ASPIRIN) 325 Mg Tablet, 325 MG PO DAILYWBKFT for 30 Days, #30 TAB Prov:ANGELA DAWSON MD 07/22/17 Metoprolol Tartrate (METOPROLOL TARTRATE) 25 Mg Tablet, 25 MG PO BID for 30 Days, #60 TAB Prov:ANGELA DAWSON MD 07/22/17 Montelukast Sodium (MONTELUKAST SODIUM TABLET ) 10 Mg Tablet, 10 MG PO QHS, #30 TAB Prov:ANGELA DAWSON MD 07/22/17 Gabapentin (GABAPENTIN) 600 Mg Tablet, 600 MG PO BID for 30 Days, #60 TAB Prov:ANGELA DAWSON MD 07/22/17 Benzonatate (TESSALON PERLE) 100 Mg Capsule, 100 MG PO TID PRN for COUGH for 14 Days, #42 CAP Prov:ANGELA DAWSON MD 07/22/17 Mupirocin (MUPIROCIN OINTMENT) 22 Gm Oint...g., 1 MARCELLE TP TID for WOUND CARE, #1 TUBE Prov:DAJA GO MD 06/10/16 Nystatin (NYSTATIN) 15 Gm Powder, 1 MARCELLE TP BID, #1 BOTTLE Prov:DAJA GO MD 06/10/16 Reported Medications Famotidine (PEPCID) 20 Mg Tablet, 20 MG PO BID 05/17/13 Discontinued Reported Medications Gabapentin (GABAPENTIN) 600 Mg Tablet, 600 MG PO BID for NEUROGENIC PAIN, TAB 03/14/19 Discontinued Scripts Prednisone (PREDNISONE) 20 Mg Tablet, 40 MG PO DAILY for 3 Days, #6 TAB Prov:ANGELA DAWSON MD 07/22/17 JARRED SINGH MD Mar 15, 2019 13:31
--- NOTE | 2019-03-15 13:39 | PDOC3 ---
Discharge Summary Visit Information Date of Admission: Mar 14, 2019 Date of Discharge: Mar 15, 2019 Admitting Diagnosis: Intractable abdominal pain Final Diagnosis Problems Medical Problems: (1) Abdominal pain Status: Acute (2) Rash Status: Acute Brief Hospital Course Allergies Allergies Coded Allergies Type Severity Reaction Last Updated Verified Penicillins Allergy Intermediate PT DOESN'T REMEMBER 03/21/16 Yes bacitracin Allergy Intermediate 10/25/14 Yes chlorpheniramine Allergy Intermediate 10/25/14 Yes ciprofloxacin Allergy Intermediate 10/25/14 Yes codeine Allergy Intermediate 10/25/14 Yes dextromethorphan Allergy Intermediate 10/25/14 Yes felodipine Allergy Intermediate 10/25/14 Yes influenza virus vaccine, specific Allergy Intermediate 10/25/14 Yes neomycin Allergy Intermediate 10/25/14 Yes phenylephrine Allergy Intermediate 10/25/14 Yes polymyxin B Allergy Intermediate 10/25/14 Yes sulfamethoxazole Allergy Intermediate 10/25/14 Yes trimethoprim Allergy Intermediate 10/25/14 Yes Vital Signs Vital Signs Date Time Temp Pulse Resp B/P (MAP) Pulse Ox O2 Delivery O2 Flow Rate FiO2 03/15/19 13:28 148 156/121 03/15/19 11:00 98.0 18 94 Room Air 98.0 Lab Results Laboratory Tests Test 03/14/19 17:40 03/14/19 18:05 03/14/19 19:55 03/14/19 22:19 Influenza Type A Antigen Negative (NEGATIVE) Influenza Type B Antigen Negative (NEGATIVE) White Blood Count 6.1 x10^3/uL (4.0-11.0) Red Blood Count 4.14 x10^6/uL (4.30-5.70) Hemoglobin 13.6 g/dL (13.0-17.5) Hematocrit 40.3 % (39.0-53.0) Mean Corpuscular Volume 97 fL (79-100) Mean Corpuscular Hemoglobin 33 pg (25-35) Mean Corpuscular Hemoglobin Concent 34 g/dL (31-37) Red Cell Distribution Width 13.2 % (11.5-14.5) Platelet Count 209 x10^3/uL (140-400) Neutrophils (%) (Auto) 50 % (31-73) Lymphocytes (%) (Auto) 40 % (24-48) Monocytes (%) (Auto) 6 % (0-9) Eosinophils (%) (Auto) 4 % (0-3) Basophils (%) (Auto) 1 % (0-3) Neutrophils # (Auto) 3.0 x10^3/uL (1.8-7.7) Lymphocytes # (Auto) 2.4 x10^3/uL (1.0-4.8) Monocytes # (Auto) 0.3 x10^3/uL (0.0-1.1) Eosinophils # (Auto) 0.2 x10^3/uL (0.0-0.7) Basophils # (Auto) 0.1 x10^3/uL (0.0-0.2) Prothrombin Time 11.9 SEC (11.7-14.0) Prothromb Time International Ratio 0.9 (0.8-1.1) Activated Partial Thromboplast Time 26 SEC (24-38) Sodium Level 141 mmol/L (136-145) Potassium Level 4.5 mmol/L (3.5-5.1) Chloride Level 102 mmol/L (98-107) Carbon Dioxide Level 32 mmol/L (21-32) Anion Gap 7 (6-14) Blood Urea Nitrogen 18 mg/dL (8-26) Creatinine 1.0 mg/dL (0.7-1.3) Estimated GFR (Cockcroft-Gault) 73.9 BUN/Creatinine Ratio 18 (6-20) Glucose Level 295 mg/dL (70-99) Lactic Acid Level 2.3 mmol/L (0.4-2.0) 1.7 mmol/L (0.4-2.0) Calcium Level 8.5 mg/dL (8.5-10.1) Magnesium Level 1.7 mg/dL (1.8-2.4) Total Bilirubin 0.5 mg/dL (0.2-1.0) Aspartate Amino Transf (AST/SGOT) 27 U/L (15-37) Alanine Aminotransferase (ALT/SGPT) 38 U/L (16-63) Alkaline Phosphatase 61 U/L (46-116) Creatine Kinase 43 U/L (39-308) Creatine Kinase MB (Mass) 0.8 ng/mL (0.0-3.6) Creatine Kinase MB Relative Index % (0-4) Troponin I Quantitative < 0.017 ng/mL (0.000-0.055) IT-Urp-T-Type Natriuretic Peptide 63 pg/mL (0-124) Total Protein 7.0 g/dL (6.4-8.2) Albumin 2.7 g/dL (3.4-5.0) Albumin/Globulin Ratio 0.6 (1.0-1.7) Lipase 109 U/L (73-393) Procalcitonin < 0.10 ng/mL (0.00-0.10) Thyroid Stimulating Hormone (TSH) 1.084 uIU/mL (0.358-3.74) Urine Collection Type Unknown Urine Color Yellow Urine Clarity Clear Urine pH 7.5 Urine Specific Henderson >=1.030 Urine Protein Negative mg/dL (NEG-TRACE) Urine Glucose (UA) >=1000 mg/dL (NEG) Urine Ketones (Stick) 15 mg/dL (NEG) Urine Blood Negative (NEG) Urine Nitrite Negative (NEG) Urine Bilirubin Negative (NEG) Urine Urobilinogen Dipstick 1.0 mg/dL (0.2 mg/dL) Urine Leukocyte Esterase Negative (NEG) Urine RBC 3-5 /HPF (0-2) Urine WBC 0 /HPF (0-4) Urine Bacteria 0 /HPF (0-FEW) Urine Opiates Screen Neg (NEG) Urine Methadone Screen Neg (NEG) Urine Barbiturates Neg (NEG) Urine Phencyclidine Screen Neg (NEG) Urine Amphetamine/Methamphetamine Neg (NEG) Urine Benzodiazepines Screen Neg (NEG) Urine Cocaine Screen Neg (NEG) Urine Cannabinoids Screen Neg (NEG) Urine Ethyl Alcohol Neg (NEG) Test 03/15/19 06:25 White Blood Count 5.4 x10^3/uL (4.0-11.0) Red Blood Count 3.90 x10^6/uL (4.30-5.70) Hemoglobin 12.8 g/dL (13.0-17.5) Hematocrit 37.8 % (39.0-53.0) Mean Corpuscular Volume 97 fL (79-100) Mean Corpuscular Hemoglobin 33 pg (25-35) Mean Corpuscular Hemoglobin Concent 34 g/dL (31-37) Red Cell Distribution Width 13.6 % (11.5-14.5) Platelet Count 187 x10^3/uL (140-400) Neutrophils (%) (Auto) 45 % (31-73) Lymphocytes (%) (Auto) 42 % (24-48) Monocytes (%) (Auto) 7 % (0-9) Eosinophils (%) (Auto) 5 % (0-3) Basophils (%) (Auto) 1 % (0-3) Neutrophils # (Auto) 2.4 x10^3/uL (1.8-7.7) Lymphocytes # (Auto) 2.3 x10^3/uL (1.0-4.8) Monocytes # (Auto) 0.4 x10^3/uL (0.0-1.1) Eosinophils # (Auto) 0.2 x10^3/uL (0.0-0.7) Basophils # (Auto) 0.0 x10^3/uL (0.0-0.2) Sodium Level 144 mmol/L (136-145) Potassium Level 3.9 mmol/L (3.5-5.1) Chloride Level 106 mmol/L (98-107) Carbon Dioxide Level 27 mmol/L (21-32) Anion Gap 11 (6-14) Blood Urea Nitrogen 15 mg/dL (8-26) Creatinine 0.7 mg/dL (0.7-1.3) Estimated GFR (Cockcroft-Gault) 111.5 BUN/Creatinine Ratio 21 (6-20) Glucose Level 189 mg/dL (70-99) Calcium Level 8.2 mg/dL (8.5-10.1) Total Bilirubin 0.6 mg/dL (0.2-1.0) Aspartate Amino Transf (AST/SGOT) 15 U/L (15-37) Alanine Aminotransferase (ALT/SGPT) 25 U/L (16-63) Alkaline Phosphatase 53 U/L (46-116) Total Protein 6.0 g/dL (6.4-8.2) Albumin 2.6 g/dL (3.4-5.0) Albumin/Globulin Ratio 0.8 (1.0-1.7) Laboratory Tests Test 03/14/19 17:40 03/14/19 18:05 03/14/19 19:55 03/14/19 22:19 Influenza Type A Antigen Negative (NEGATIVE) Influenza Type B Antigen Negative (NEGATIVE) White Blood Count 6.1 x10^3/uL (4.0-11.0) Red Blood Count 4.14 x10^6/uL (4.30-5.70) Hemoglobin 13.6 g/dL (13.0-17.5) Hematocrit 40.3 % (39.0-53.0) Mean Corpuscular Volume 97 fL (79-100) Mean Corpuscular Hemoglobin 33 pg (25-35) Mean Corpuscular Hemoglobin Concent 34 g/dL (31-37) Red Cell Distribution Width 13.2 % (11.5-14.5) Platelet Count 209 x10^3/uL (140-400) Neutrophils (%) (Auto) 50 % (31-73) Lymphocytes (%) (Auto) 40 % (24-48) Monocytes (%) (Auto) 6 % (0-9) Eosinophils (%) (Auto) 4 % (0-3) Basophils (%) (Auto) 1 % (0-3) Neutrophils # (Auto) 3.0 x10^3/uL (1.8-7.7) Lymphocytes # (Auto) 2.4 x10^3/uL (1.0-4.8) Monocytes # (Auto) 0.3 x10^3/uL (0.0-1.1) Eosinophils # (Auto) 0.2 x10^3/uL (0.0-0.7) Basophils # (Auto) 0.1 x10^3/uL (0.0-0.2) Prothrombin Time 11.9 SEC (11.7-14.0) Prothromb Time International Ratio 0.9 (0.8-1.1) Activated Partial Thromboplast Time 26 SEC (24-38) Sodium Level 141 mmol/L (136-145) Potassium Level 4.5 mmol/L (3.5-5.1) Chloride Level 102 mmol/L (98-107) Carbon Dioxide Level 32 mmol/L (21-32) Anion Gap 7 (6-14) Blood Urea Nitrogen 18 mg/dL (8-26) Creatinine 1.0 mg/dL (0.7-1.3) Estimated GFR (Cockcroft-Gault) 73.9 BUN/Creatinine Ratio 18 (6-20) Glucose Level 295 mg/dL (70-99) Lactic Acid Level 2.3 mmol/L (0.4-2.0) 1.7 mmol/L (0.4-2.0) Calcium Level 8.5 mg/dL (8.5-10.1) Magnesium Level 1.7 mg/dL (1.8-2.4) Total Bilirubin 0.5 mg/dL (0.2-1.0) Aspartate Amino Transf (AST/SGOT) 27 U/L (15-37) Alanine Aminotransferase (ALT/SGPT) 38 U/L (16-63) Alkaline Phosphatase 61 U/L (46-116) Creatine Kinase 43 U/L (39-308) Creatine Kinase MB (Mass) 0.8 ng/mL (0.0-3.6) Creatine Kinase MB Relative Index % (0-4) Troponin I Quantitative < 0.017 ng/mL (0.000-0.055) HH-Qrj-L-Type Natriuretic Peptide 63 pg/mL (0-124) Total Protein 7.0 g/dL (6.4-8.2) Albumin 2.7 g/dL (3.4-5.0) Albumin/Globulin Ratio 0.6 (1.0-1.7) Lipase 109 U/L (73-393) Procalcitonin < 0.10 ng/mL (0.00-0.10) Thyroid Stimulating Hormone (TSH) 1.084 uIU/mL (0.358-3.74) Urine Collection Type Unknown Urine Color Yellow Urine Clarity Clear Urine pH 7.5 Urine Specific Henderson >=1.030 Urine Protein Negative mg/dL (NEG-TRACE) Urine Glucose (UA) >=1000 mg/dL (NEG) Urine Ketones (Stick) 15 mg/dL (NEG) Urine Blood Negative (NEG) Urine Nitrite Negative (NEG) Urine Bilirubin Negative (NEG) Urine Urobilinogen Dipstick 1.0 mg/dL (0.2 mg/dL) Urine Leukocyte Esterase Negative (NEG) Urine RBC 3-5 /HPF (0-2) Urine WBC 0 /HPF (0-4) Urine Bacteria 0 /HPF (0-FEW) Urine Opiates Screen Neg (NEG) Urine Methadone Screen Neg (NEG) Urine Barbiturates Neg (NEG) Urine Phencyclidine Screen Neg (NEG) Urine Amphetamine/Methamphetamine Neg (NEG) Urine Benzodiazepines Screen Neg (NEG) Urine Cocaine Screen Neg (NEG) Urine Cannabinoids Screen Neg (NEG) Urine Ethyl Alcohol Neg (NEG) Test 03/15/19 06:25 White Blood Count 5.4 x10^3/uL (4.0-11.0) Red Blood Count 3.90 x10^6/uL (4.30-5.70) Hemoglobin 12.8 g/dL (13.0-17.5) Hematocrit 37.8 % (39.0-53.0) Mean Corpuscular Volume 97 fL (79-100) Mean Corpuscular Hemoglobin 33 pg (25-35) Mean Corpuscular Hemoglobin Concent 34 g/dL (31-37) Red Cell Distribution Width 13.6 % (11.5-14.5) Platelet Count 187 x10^3/uL (140-400) Neutrophils (%) (Auto) 45 % (31-73) Lymphocytes (%) (Auto) 42 % (24-48) Monocytes (%) (Auto) 7 % (0-9) Eosinophils (%) (Auto) 5 % (0-3) Basophils (%) (Auto) 1 % (0-3) Neutrophils # (Auto) 2.4 x10^3/uL (1.8-7.7) Lymphocytes # (Auto) 2.3 x10^3/uL (1.0-4.8) Monocytes # (Auto) 0.4 x10^3/uL (0.0-1.1) Eosinophils # (Auto) 0.2 x10^3/uL (0.0-0.7) Basophils # (Auto) 0.0 x10^3/uL (0.0-0.2) Sodium Level 144 mmol/L (136-145) Potassium Level 3.9 mmol/L (3.5-5.1) Chloride Level 106 mmol/L (98-107) Carbon Dioxide Level 27 mmol/L (21-32) Anion Gap 11 (6-14) Blood Urea Nitrogen 15 mg/dL (8-26) Creatinine 0.7 mg/dL (0.7-1.3) Estimated GFR (Cockcroft-Gault) 111.5 BUN/Creatinine Ratio 21 (6-20) Glucose Level 189 mg/dL (70-99) Calcium Level 8.2 mg/dL (8.5-10.1) Total Bilirubin 0.6 mg/dL (0.2-1.0) Aspartate Amino Transf (AST/SGOT) 15 U/L (15-37) Alanine Aminotransferase (ALT/SGPT) 25 U/L (16-63) Alkaline Phosphatase 53 U/L (46-116) Total Protein 6.0 g/dL (6.4-8.2) Albumin 2.6 g/dL (3.4-5.0) Albumin/Globulin Ratio 0.8 (1.0-1.7) Brief Hospital Course Mr Andrews is a 68yo M w/ PMHx COPD, CVA, Diabetes-Type II, High Cholesterol, Hypertension, hiatal hernia, left sided weakness post cva, chronic leg pain/edema obesity who presents to the ED today to be evaluated for generalized abdominal pain that began 4 days ago. He is a poor historian, told the ED and nursing staff he has had epigastric abdominal pain and a rash throughout his body as well as diarrhea that began 03/14/2019. He underwent CT abdomen/pelvis which was negative for acute findings. Slight increase in AAA size to 3.5cm. Lactic acid 2.3, mag 1.7. CBC with a normal WBC of has no acute findings, CMP with glucose of 295 month and ended up is normal. Vitals on arrival temperature 99.2 heart rate 146 on arrival, patient was given IV fluids. Blood pressure 188/102, O2 sats 96% on room air. Patient was also given hydralazine, blood pressure came down to 155/83 heart rate has come down to 108. Chest x-ray noted for atelectasis but they could not rule out any infection. Admitted for pain control. On my evaluation he is asking for food and to go home. Has not been taking many of his home medications lately, including metoprolol. HR was in 140s sinus in the ED. Able to eat well, pain resolved after BM. A/P: Abdominal pain - likely gastroparesis. He does not wish for further testing at this time. Labs normalized. Appetite good, wishes to eat Elevated lactic acid level - likely related to diabetes, resolved Fever - none noted inpatient Rash - resolved after evaluation in ED COPD - cont home nebulizers Diabetes-Type II - refusing glucose checks. Cont home meds. needs home health for compliance High Cholesterol - Hypertension, hiatal hernia, left sided weakness post cva, chronic leg pain/edema obesity AAA - 3.5cm. Annual observation Hypertensive urgency - not clear if he is taking his medications. Will cont BB DAVID - on home CPAP Unusual behavior - he denies psychiatric history can d/c if able to eat. Per prior SW note: Store Consultant, Tevin Mcintosh, at [employer], . Tevin verified that pt was on services with him and verified pt's address, [address] [place] [address], [facility] [id number]. Tevin reported that pt does have oxygen and a CPAP at home and has had a recent sleep study. Tevin reported that pt does have a PCP, David Oviedo, with [facility] Discharge Information Condition at Discharge: Improved Follow Up: Weeks (1) Disposition/Orders: D/C to Home w/ HH Scheduled Aspirin (Aspirin) 325 Mg Tablet, 325 MG PO DAILYWBKFT for 30 Days, #30 Prescribed by: ANGELA DAWSON on 07/22/17 1345 Last Action: Continued on 03/15/19 1322 by JARRED SINGH MD Famotidine (Pepcid) 20 Mg Tablet, 20 MG PO BID, (Reported) Entered as Reported by: SOPHY PACE on 05/17/13 0343 Last Action: Continued on 03/15/19 1322 by JARRED SINGH MD Gabapentin (Gabapentin) 600 Mg Tablet, 600 MG PO BID for 30 Days, #60 Prescribed by: ANGELA DAWSON on 07/22/17 1345 Last Action: Converted on 03/15/192 by JARRED SINGH MD Glimepiride (Amaryl) 2 Mg Tablet, 2 MG PO DAILY for 30 Days, #30 Prescribed by: ANGELA DAWSON on 07/22/17 1345 Last Action: Continued on 03/15/19 1322 by JARRED SINGH MD Insulin Lispro (Humalog) 100 Unit/1 Ml Insuln.pen, 0 UNITS SQ TIDWMEALS for GLUCOSE CONTROL for 30 Days, #1 Prescribed by: KLAUDIA HAY MD on 08/06/18 1515 Ipratropium/Albuterol Sulfate (Duoneb 0.5-3(2.5) Mg/3 Ml) 3 Ml Ampul.neb, 3 ML NEB RTQID for COPD for 30 Days, #120 Prescribed by: KLAUDIA HAY MD on 08/06/18 1515 Last Action: Continued on 03/15/191321 by JARRED SINGH MD Metoprolol Tartrate (Metoprolol Tartrate) 25 Mg Tablet, 25 MG PO BID for 30 Da ys, #60 Prescribed by: ANGELA DAWSON on 07/22/171344 Last Action: Continued on 03/15/191321 by JARRED SINGH MD Montelukast Sodium (Montelukast Sodium Tablet ) 10 Mg Tablet, 10 MG PO QHS, #30 Prescribed by: ANGELA DAWSON on 07/22/171344 Last Action: Continued on 03/15/191321 by JARRED SINGH MD Mupirocin (Mupirocin Ointment) 22 Gm Oint...g., 1 MARCELLE TP TID for WOUND CARE, #1 Prescribed by: DAJA GO on 06/10/16134 Last Action: Continued on 03/15/191321 by JARRED SINGH MD Nystatin (Nystatin) 15 Gm Powder, 1 MARCELLE TP BID, #1 Prescribed by: DAJA GO on 06/10/16134 Last Action: Continued on 03/15/191321 by JARRED SINGH MD Scheduled PRN Benzonatate (Tessalon Perle) 100 Mg Capsule, 100 MG PO TID PRN for COUGH for 14 Days, #42 Prescribed by: ANGELA DAWSON on 07/22/171344 Last Action: Continued on 03/15/191321 by JARRED SINGH MD Discontinued Medications Gabapentin (Gabapentin) 600 Mg Tablet, 600 MG PO BID for NEUROGENIC PAIN, (Reported) Entered as Reported by: LANCE VÁSQUEZ RN on 03/14/192251 Last Taken: Unknown Dose on 03/14/19 0900 Last Action: New Order on 03/14/192251 by LANCE VÁSQUEZ RN Prednisone (Prednisone) 20 Mg Tablet, 40 MG PO DAILY for 3 Days, #6 Prescribed by: ANGELA DAWSON on 07/22/171344 JARRED SINGH MD Mar 15, 2019 13:39
[2019-03-15] MEDS: GABAPENTIN 300 MG CAPSULE. PO SCH ×2 (14:29→21:00)
[2019-03-15] MEDS: MUPIROCIN 2 % NASAL OINTMENT 22GM TUBE. TP SCH ×2 (14:30→21:00)
--- NOTE | 2019-03-15 14:30 | NUR ---
Patient with increased heart rate around 142 at rest this afternoon. He does not state any discomfort and does not feel like his heart is racing. One time dose of metoprolol ordered per Dr Naranjo and given slowly over 2 minutes without any concerns noted. Pulse back down to patients baseline, averaging around 88. BP still elevated at this time but will continue to monitor.
[2019-03-15 15:15] VITALS: BP 168/95
--- NOTE | 2019-03-15 15:29 | NUR ---
SS following for discharge planning. SS reviewed pt chart. Pt is from home and is currently on room air. SS will continue to follow for discharge planning.
[2019-03-15] MEDS ORDERED: ENOXAPARIN 40 MG/0.4 ML SYRINGE. SQ SCH (16:00)
[2019-03-15] MEDS ORDERED: ASPIRIN 325 MG TABLET PO SCH (16:00)
[2019-03-15] MEDS: IPRATRPIUM/ALBUTEROL 0.5/2.5MG 3 ML NEBU. NEB SCH ×2 (16:00→20:00)
--- NOTE | 2019-03-15 17:59 | NUR ---
Patient discharge packet was instructed by this nurse and medications were gone over. Patient agreed to have HH set up which will be done tomorrow by the case investigator/planner. Patient does not have a preference in HH agencies. No concerns noted from the patient at this time. He does not have someone to pick him up so a taxi was called ([phone]: [employer]) around 1749 to pick him up. Awaiting call back or arrival from company. IV discontinued in left AC without any complications or concerns. Patient has all his belongings by his side awaiting taxi arrival. Will continue to monitor.
[2019-03-15] MEDS ORDERED: METOPROLOL TART IMMED RELEASE 25 MG TABLET. PO SCH (21:00)
[2019-03-15] MEDS ORDERED: NYSTATIN TOPICAL POWDER 15GM BOTTLE. TP SCH (21:00)
[2019-03-15] MEDS ORDERED: MONTELUKAST SODIUM 10 MG TABLET. PO SCH (21:00)
[2019-03-15] MEDS ORDERED: FAMOTIDINE 20 MG TABLET. PO SCH (21:00)
[2019-03-15 23:30] VITALS: BP 156/93
[2019-03-16 03:34] VITALS: BP 148/79
[2019-03-16] MEDS ORDERED: GLIMEPIRIDE 2 MG TABLET. PO SCH (09:00)
== END 2019-03-15 23:55 | disposition home health service (06) | DRG 74 ==
LOC: ER 17:38 → 6 SOUTH 20:07
PROVIDERS: ADMIT Internal Medicine; ATTEND Internal Medicine
DX: E11.43 Type 2 diabetes mellitus with diabetic autonomic (poly)neuropathy (principal); I69.354 Hemiplegia and hemiparesis following cerebral infarction affecting left non-dominant side; J98.11 Atelectasis; Z68.41 Body mass index [BMI] 40.0-44.9, adult; K31.84 Gastroparesis; J44.9 Chronic obstructive pulmonary disease, unspecified; E78.00 Pure hypercholesterolemia, unspecified; I10 Essential (primary) hypertension; G89.29 Other chronic pain; K21.9 Gastro-esophageal reflux disease without esophagitis; K76.0 Fatty (change of) liver, not elsewhere classified; N28.1 Cyst of kidney, acquired; I71.4 Abdominal aortic aneurysm, without rupture; K44.9 Diaphragmatic hernia without obstruction or gangrene; G47.33 Obstructive sleep apnea (adult) (pediatric); I16.0 Hypertensive urgency; E66.9 Obesity, unspecified; Z88.5 Allergy status to narcotic agent; Z88.0 Allergy status to penicillin; Z88.2 Allergy status to sulfonamides; Z88.7 Allergy status to serum and vaccine; Z88.8 Allergy status to other drugs, medicaments and biological substances; Z82.49 Family history of ischemic heart disease and other diseases of the circulatory system
CPT/HCPCS: 36415; 71045; 74177; 80053; 80307; 81001; 82553; 83605; 83690; 83735; 83880; 84145; 84443; 84484; 85025; 85610; 85730; 87040; 87804; 93005; 94640; 94760; 96361; 96374; 96375; J0360; J1650; J2405; J3010; J3490; J7030; J7620; Q9967; 99285-25; G0378

== ENCOUNTER 2019-03-24 17:16 | Emergency (ER) | payer OTHER ==
[~2019-03-24] VITALS: Ht 162.6 cm; Wt 121.8 kg
[2019-03-24 18:30] LABS: BASO # 0.1 x10^3/uL (0.0-0.2); BASO % 1 % (0-3); EOS # 0.2 x10^3/uL (0.0-0.7); EOS % 3 % (0-3); HEMATOCRIT 39.2 % (39.0-53.0); HEMOGLOBIN 13.4 g/dL (13.0-17.5); LYMPH # 2.5 x10^3/uL (1.0-4.8); LYMPH % 37 % (24-48); MEAN CORPUSCULAR HEMOGLOBIN 33 pg (25-35); MEAN CORPUSCULAR HGB CONC 34 g/dL (31-37); MEAN CORPUSCULAR VOLUME 97 fL (79-100); MONO # 0.5 x10^3/uL (0.0-1.1); MONO % 7 % (0-9); NEUT # 3.6 x10^3/uL (1.8-7.7); NEUT % 52 % (31-73); PLATELET COUNT 206 x10^3/uL (140-400); RED BLOOD COUNT 4.04 x10^6/uL (4.30-5.70); RED CELL DISTRIBUTION WIDTH 13.5 % (11.5-14.5); WHITE BLOOD COUNT 6.8 x10^3/uL (4.0-11.0)
[2019-03-24 18:37] LABS: CALCIUM 9.5 mg/dL (8.5-10.1); GFR 73.9; POTASSIUM 4.2 mmol/L (3.5-5.1)
[2019-03-24 18:43] LABS: ALBUMIN 2.8 g/dL (3.4-5.0); ALBUMIN/GLOBULIN RATIO 0.8 (1.0-1.7); MAGNESIUM 1.7 mg/dL (1.8-2.4); PROTHROMBIN TIME PATIENT 12.7 SEC (11.7-14.0); TOTAL BILIRUBIN 0.4 mg/dL (0.2-1.0); TOTAL PROTEIN 6.5 g/dL (6.4-8.2)
--- NOTE | 2019-03-24 18:58 | RAD ---
Exam: Chest one view INDICATION: Palpitations TECHNIQUE: Frontal view of the chest Comparisons: 03/14/2019 FINDINGS: The cardiomediastinal silhouette and pulmonary vessels are within normal limits. The lung and pleural spaces are clear. IMPRESSION: No acute cardiopulmonary process. Electronically signed by: Bonifacio Forrester MD (03/24/2019 6:55 PM) [id number]
[2019-03-24 20:21] LABS: CREATINE KINASE 47 U/L (39-308)
[2019-03-24 21:02] LABS: BILIRUBIN,URINE NEGATIVE (NEG); CLARITY,URINE CLOUDY; COLOR,URINE YELLOW; NITRITE,URINE NEGATIVE (NEG); PH,URINE 5.5; PROTEIN,URINE NEGATIVE (NEG-TRACE)
[2019-03-24 21:08] LABS: BACTERIA,URINE FEW /HPF (0-FEW); SQUAMOUS EPITHELIAL CELL,UR MOD /LPF
[2019-03-24 21:09] LABS: HYALINE CASTS, URINE FEW /HPF
--- NOTE | 2019-03-24 21:37 | PHYS DOC ---
Past Medical History Past Medical History: COPD, CVA, Diabetes-Type II, High Cholesterol, Hypertension, Other Additional Past Medical Histor: hiatal hernia, left sided weakness post cva, chronic leg pain/edema obesity Past Surgical History: Other Additional Past Surgical Histo: UMBILICAL HERNIA SX Smoking Status: Former Smoker Alcohol Use: None Drug Use: None Adult General Chief Complaint Chief Complaint: Palpitations HPI HPI Patient is a 68 year old who presents to the emergency department with complaints of palpitations intermittently for the last 2-3 days. Patient denies any chest pain, wheezing, diaphoresis, nausea, vomiting, abdominal pain, back pain, dizziness, headache, numbness, tingling, or weakness. Patient states that he was just sitting in his chair when he felt like his heart was beating funny. He denies any syncope, fever, or cough. Patient states that he has been out of his lisinopril but he is unsure of what his dose is. Pt states that his blood sugar has recently been around 200. He reports a dry mouth but denies any inc rease in thirst, urination, or eating. Pt states that he has felt SOA and wheezy recently but currently denies any complaints or pain at this time. Pt states that he drinks about 5 beers a day and that he currently resides in assisted living, where he has his own apartment and a nurse and maid come to help him. Review of Systems Review of Systems Constitutional: Denies fever or chills [] Eyes: Denies change in visual acuity, redness, or eye pain [] HENT: Denies nasal congestion or sore throat [] Respiratory: Denies cough or shortness of breath [] Cardiovascular: No additional information not addressed in HPI [] GI: Denies abdominal pain, nausea, vomiting, or diarrhea [] : Denies dysuria or hematuria [] Musculoskeletal: Denies back pain or joint pain [] Integument: Denies rash or skin lesions [] Neurologic: Denies headache, focal weakness or sensory changes [] Endocrine: See HPI All other systems were reviewed and found to be within normal limits, except as documented in this note. Allergies Allergies Allergies Coded Allergies Type Severity Reaction Last Updated Verified Penicillins Allergy Intermediate PT DOESN'T REMEMBER 03/21/16 Yes bacitracin Allergy Intermediate 10/25/14 Yes chlorpheniramine Allergy Intermediate 10/25/14 Yes ciprofloxacin Allergy Intermediate 10/25/14 Yes codeine Allergy Intermediate 10/25/14 Yes dextromethorphan Allergy Intermediate 10/25/14 Yes felodipine Allergy Intermediate 10/25/14 Yes influenza virus vaccine, specific Allergy Intermediate 10/25/14 Yes neomycin Allergy Intermediate 10/25/14 Yes phenylephrine Allergy Intermediate 10/25/14 Yes polymyxin B Allergy Intermediate 10/25/14 Yes sulfamethoxazole Allergy Intermediate 10/25/14 Yes trimethoprim Allergy Intermediate 10/25/14 Yes Physical Exam Physical Exam Constitutional: Well developed, well nourished, no acute distress, non-toxic appearance, obese. [] HENT: Normocephalic, atraumatic, bilateral external ears normal, oropharynx mo ist, no oral exudates, nose normal. [] Eyes: PERRLA, EOMI, conjunctiva normal, no discharge. [] Neck: Normal range of motion, no stridor. [] Cardiovascular:Heart rate regular rhythm, no murmur [] Lungs & Thorax: Bilateral breath sounds clear to auscultation. Respirations even and unlabored, no retractions, no respiratory distress [] Abdomen: soft, no tenderness, no masses, no pulsatile masses. [] Skin: Warm, dry, no erythema, no rash. [] Back: No tenderness Extremities: No cyanosis, ROM intact, no edema. [] Neurologic: Alert and oriented X 3, no focal deficits noted. [] Psychologic: Affect normal, judgement normal, mood normal. [] Current Patient Data Vital Signs Vital Signs Date Time Temp Pulse Resp B/P (MAP) Pulse Ox O2 Delivery O2 Flow Rate FiO2 03/24/19 22:00 88 21 120/68 (85) 95 Room Air 03/24/19 17:43 98.6 98.6 Lab Values Laboratory Tests Test 03/24/19 18:14 03/24/19 20:52 White Blood Count 6.8 x10^3/uL (4.0-11.0) Red Blood Count 4.04 x10^6/uL (4.30-5.70) L Hemoglobin 13.4 g/dL (13.0-17.5) Hematocrit 39.2 % (39.0-53.0) Mean Corpuscular Volume 97 fL (79-100) Mean Corpuscular Hemoglobin 33 pg (25-35) Mean Corpuscular Hemoglobin Concent 34 g/dL (31-37) Red Cell Distribution Width 13.5 % (11.5-14.5) Platelet Count 206 x10^3/uL (140-400) Neutrophils (%) (Auto) 52 % (31-73) Lymphocytes (%) (Auto) 37 % (24-48) Monocytes (%) (Auto) 7 % (0-9) Eosinophils (%) (Auto) 3 % (0-3) Basophils (%) (Auto) 1 % (0-3) Neutrophils # (Auto) 3.6 x10^3/uL (1.8-7.7) Lymphocytes # (Auto) 2.5 x10^3/uL (1.0-4.8) Monocytes # (Auto) 0.5 x10^3/uL (0.0-1.1) Eosinophils # (Auto) 0.2 x10^3/uL (0.0-0.7) Basophils # (Auto) 0.1 x10^3/uL (0.0-0.2) Prothrombin Time 12.7 SEC (11.7-14.0) Prothrombin Time INR 1.0 (0.8-1.1) Activated Partial Thromboplast Time 24 SEC (24-38) Sodium Level 142 mmol/L (136-145) Potassium Level 4.2 mmol/L (3.5-5.1) Chloride Level 103 mmol/L (98-107) Carbon Dioxide Level 31 mmol/L (21-32) Anion Gap 8 (6-14) Blood Urea Nitrogen 14 mg/dL (8-26) Creatinine 1.0 mg/dL (0.7-1.3) Estimated GFR (Cockcroft-Gault) 73.9 BUN/Creatinine Ratio 14 (6-20) Glucose Level 102 mg/dL (70-99) H Calcium Level 9.5 mg/dL (8.5-10.1) Magnesium Level 1.7 mg/dL (1.8-2.4) L Total Bilirubin 0.4 mg/dL (0.2-1.0) Aspartate Amino Transferase (AST) 20 U/L (15-37) Alanine Aminotransferase (ALT) 28 U/L (16-63) Alkaline Phosphatase 60 U/L (46-116) Creatine Kinase 47 U/L (39-308) Creatine Kinase MB (Mass) 0.8 ng/mL (0.0-3.6) Creatine Kinase MB Relative Index % (0-4) Troponin I Quantitative < 0.017 ng/mL (0.000-0.055) Total Protein 6.5 g/dL (6.4-8.2) Albumin 2.8 g/dL (3.4-5.0) L Albumin/Globulin Ratio 0.8 (1.0-1.7) L Urine Collection Type Unknown Urine Color Yellow Urine Clarity Cloudy Urine pH 5.5 Urine Specific [place] 1.020 Urine Protein Negative mg/dL (NEG-TRACE) Urine Glucose (UA) Negative mg/dL (NEG) Urine Ketones (Stick) Negative mg/dL (NEG) Urine Blood Negative (NEG) Urine Nitrite Negative (NEG) Urine Bilirubin Negative (NEG) Urine Urobilinogen Dipstick 1.0 mg/dL (0.2 mg/dL) Urine Leukocyte Esterase Negative (NEG) Urine RBC 1-2 /HPF (0-2) Urine WBC 1-4 /HPF (0-4) Urine Squamous Epithelial Cells Mod /LPF Urine Bacteria Few /HPF (0-FEW) Urine Hyaline Casts Few /HPF Urine Mucus Marked /LPF Laboratory Tests 03/24/19 18:14 Laboratory Tests 03/24/19 18:14 EKG EKG 1825-SR no STEMI read by Dr. Moreira [] Radiology/Procedures Radiology/Procedures PROCEDURE: CHEST AP ONLY Exam: Chest one view INDICATION: Palpitations TECHNIQUE: Frontal view of the chest Comparisons: 03/14/2019 FINDINGS: The cardiomediastinal silhouette and pulmonary vessels are within normal limits. The lung and pleural spaces are clear. IMPRESSION: No acute cardiopulmonary process.[] Course & Med Decision Making Course & Med Decision Making Pertinent Labs and Imaging studies reviewed. (See chart for details) Patient is a 68-year-old male who presented to the emergency room with complaints of feeling like his heart was skipping beats for the last 2-3 days. He reported that the symptoms were intermittent and he denied any complaints on arrival. Patient denied any syncope, dizziness, weakness, fever, cough, vision changes, numbness, tingling, or weakness. EKG was sinus rhythm. CBC was unremarkable, PT and INR were within normal limits, CMP revealed a glucose of 102, magnesium of 1.7 was otherwise unremarkable, cardiac enzymes and CK index were negative, Urinalysis revealed 1-4 white blood cells, this likely contaminated as there is moderate squamous cells and few bacteria. Patient was also asymptomatic. We called the pharmacy where the patient feels his medications and they reported that the patient's lisinopril had not been filled since 2018. I advised patient of the normal findings, I encouraged him to follow up with his primary care doctor for a refill of his blood pressure medication as he has not refilled it and over one year. I Instructed patient to return to the ER if symptoms worsened or he develops chest pain. Patient verbalized an understanding of home care, medications, follow-up, and return to ED instructions and was in agreement with the plan of care. Dragon Disclaimer Dragon Disclaimer This electronic medical record was generated, in whole or in part, using a voice recognition dictation system. Departure Departure Impression: Primary Impression: Palpitations with regular cardiac rhythm Disposition: HOME, SELF-CARE Condition: STABLE Referrals: UNKNOWN PCP NAME (PCP) Patient Instructions: Palpitations, [id number] Additional Instructions: Continue taking your home medications as prescribed. Follow up with your primary care doctor in 1-2 days. Return to the ER if symptoms worsen. JEFFERY IRWIN APRN Mar 24, 2019 21:37
[2019-03-24 22:00] VITALS: BP 120/68
--- NOTE | 2019-03-25 06:24 | EKG ---
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
== END 2019-03-24 22:20 | disposition home or self-care (01) ==
LOC: ER 17:16
DX: R00.2 Palpitations (principal); E78.00 Pure hypercholesterolemia, unspecified; E11.9 Type 2 diabetes mellitus without complications; J44.9 Chronic obstructive pulmonary disease, unspecified; Z86.73 Personal history of transient ischemic attack (TIA), and cerebral infarction without residual deficits; G89.29 Other chronic pain; Z87.891 Personal history of nicotine dependence; Z88.0 Allergy status to penicillin; Z88.1 Allergy status to other antibiotic agents; Z88.5 Allergy status to narcotic agent; Z88.2 Allergy status to sulfonamides; Z88.7 Allergy status to serum and vaccine; Z88.8 Allergy status to other drugs, medicaments and biological substances
CPT/HCPCS: 36415; 71045; 80053; 81001; 82553; 83735; 84484; 85025; 85610; 85730; 93005; 99285-25

== ENCOUNTER 2020-02-18 09:41 | Inpatient (IN) | payer OTHER ==
[~2020-02-18] VITALS: Ht 162.6 cm; Wt 121.0 kg
[~2020-02-18 09:41] MED LIST changes: +LISI10TA16 PO; -LISI10TA2 PO
--- NOTE | 2020-02-18 10:13 | PHYS DOC ---
Past Medical History Past Medical History: COPD, CVA, Diabetes-Type II, High Cholesterol, Hype rtension, Other Additional Past Medical Histor: hiatal hernia, left sided weakness post cva, chronic leg pain/edema obesity Past Surgical History: Other Additional Past Surgical Histo: UMBILICAL HERNIA SX Smoking Status: Former Smoker Alcohol Use: None Drug Use: None General Adult EDM: Chief Complaint: SHORTNESS OF BREATH HPI: HPI: 69-year-old male presenting to the emergency department today with shortness of breath. He has been more short of breath over the past 2 to 3 days. He denies any recent cough or fever. His shortness of breath is worse with exertion. He intermittently feels palpitations. He denies having vomiting but has had some epigastric abdominal pain. His abdominal pain is a throbbing aching pain that comes and goes without alleviating or exacerbating factors. It is associated with nausea without vomiting. Review of systems negative for chest pain. Positive for shortness of breath. Positive for abdominal pain. Negative for headache fevers chills or rashes. All other review of systems negative. ED course: 69-year-old male presenting with shortness of breath and abdominal pain over the past few days. EKG obtained twice described below. We did give the patient low-dose metoprolol which helped improve his tachydysrhythmia. CT angiogram negative for pulmonary embolism. CT abdomen pelvis negative for acute pathology. He does have a chronic abdominal aortic aneurysm of 3.8 cm. Chest x-ray unremarkable. We will admit the patient for telemetry monitoring. I spoke to the hospitalist who accepts the patient for admission. Heart Score: Risk Factors: Risk Factors: DM, Current or recent (<one month) smoker, HTN, HLP, family history of CAD, obesity. Risk Scores: Score 0 - 3: 2.5% MACE over next 6 weeks - Discharge Home Score 4 - 6: 20.3% MACE over next 6 weeks - Admit for Clinical Observation Score 7 - 10: 72.7% MACE over next 6 weeks - Early Invasive Strategies Allergies: Allergies: Allergies Coded Allergies Type Severity Reaction Last Updated Verified Penicillins Allergy Intermediate PT DOESN'T REMEMBER 03/21/16 Yes bacitracin Allergy Intermediate 10/25/14 Yes chlorpheniramine Allergy Intermediate 10/25/14 Yes ciprofloxacin Allergy Intermediate 10/25/14 Yes codeine Allergy Intermediate 10/25/14 Yes dextromethorphan Allergy Intermediate 10/25/14 Yes felodipine Allergy Intermediate 10/25/14 Yes influenza virus vaccine, specific Allergy Intermediate 10/25/14 Yes neomycin Allergy Intermediate 10/25/14 Yes phenylephrine Allergy Intermediate 10/25/14 Yes polymyxin B Allergy Intermediate 10/25/14 Yes sulfamethoxazole Allergy Intermediate 10/25/14 Yes trimethoprim Allergy Intermediate 10/25/14 Yes Physical Exam: PE: Constitutional: Well developed, well nourished, no acute distress, non-toxic appearance. [] Breathing comfortably on room air. HENT: Normocephalic, atraumatic, bilateral external ears normal, oropharynx moist, no oral exudates, nose normal. [] Eyes: PERRLA, EOMI, conjunctiva normal, no discharge. [] Neck: Normal range of motion, no tenderness, supple, no stridor. [] Cardiovascular: Patient has mild tachycardia and intermittently flips into a irregularly irregular tachycardia in the 150s. No murmurs. Lungs & Thorax: Bilateral breath sounds clear to auscultation [] Abdomen: Bowel sounds normal, soft, no tenderness, no masses, no pulsatile masses. [] Skin: Warm, dry, no erythema, no rash. [] Back: No tenderness, no CVA tenderness. [] Extremities: No tenderness, no cyanosis, no clubbing, ROM intact, no edema. [] Neurologic: Alert and oriented X 3, normal motor function, normal sensory function, no focal deficits noted. [] Psychologic: Affect normal, judgement normal, mood normal. [] EKG: EKG: Initial EKG shows irregularly irregular rhythm without an obvious P wave. Heart rate at 105. ST segments congruent. Nonspecific T wave flattening in the lateral leads. Not suggestive of acute ischemia. Second EKG taken at 952 shows A. fib with RVR. ST segments congruent. Not suggestive of acute ischemia. [] Radiology/Procedures: Radiology/Procedures: [] Course & Med Decision Making: Course & Med Decision Making Pertinent Labs and Imaging studies reviewed. (See chart for details) [] Dragon Disclaimer: Dragon Disclaimer: This electronic medical record was generated, in whole or in part, using a voice recognition dictation system. Departure Departure Impression: Primary Impression: Atrial fibrillation with RVR Disposition: ADMITTED INPT THIS HOSP Admitting Physician: ALEJANDRO Condition: STABLE Referrals: UNKNOWN PCP NAME (PCP) NUBIA STREET MD Feb 18, 2020 10:13
[2020-02-18 10:14] LABS: BASO % 1 % (0-3); EOS # 0.3 x10^3/uL (0.0-0.7); EOS % 5 % (0-3); HEMATOCRIT 40.1 % (39.0-53.0); HEMOGLOBIN 13.6 g/dL (13.0-17.5); LYMPH # 2.5 x10^3/uL (1.0-4.8); LYMPH % 42 % (24-48); MEAN CORPUSCULAR HEMOGLOBIN 32 pg (25-35); MEAN CORPUSCULAR HGB CONC 34 g/dL (31-37); MEAN CORPUSCULAR VOLUME 94 fL (79-100); MONO # 0.4 x10^3/uL (0.0-1.1); MONO % 7 % (0-9); NEUT # 2.8 x10^3/uL (1.8-7.7); NEUT % 46 % (31-73); PLATELET COUNT 221 x10^3/uL (140-400); RED BLOOD COUNT 4.27 x10^6/uL (4.30-5.70); RED CELL DISTRIBUTION WIDTH 13.8 % (11.5-14.5); WHITE BLOOD COUNT 6.1 x10^3/uL (4.0-11.0)
--- NOTE | 2020-02-18 10:22 | RAD ---
XR CHEST 1V 02/18/2020 10:01 AM INDICATION: Shortness of air, patient under investigation COMPARISON: None available TECHNIQUE: Portable frontal view of the chest is provided. FINDINGS: The cardiomediastinal silhouette is within normal limits. Chronic interstitial changes are noted at t he lung bases with minimal scarring. No new airspace consolidation. There are no significant pleural effusions. There is no pulmonary vascular congestion. No pneumothora x. No suspicious osseous abnormality. IMPRESSION: There is no acute cardiopulmonary process. Electronically signed by: Ros Estevez MD (02/18/2020 10:18 AM) [id number]
[2020-02-18 10:30] LABS: CALCIUM 9.1 mg/dL (8.5-10.1); GFR 73.7; POTASSIUM 3.8 mmol/L (3.5-5.1)
[2020-02-18] MEDS ORDERED: METOPROLOL IV PUSH 5 MG/5 ML VIAL. IVP ONE ×2 (10:30→16:00)
[2020-02-18 10:34] LABS: ALBUMIN 2.9 g/dL (3.4-5.0); DIRECT BILIRUBIN 0.1 mg/dL (0.0-0.2); TOTAL BILIRUBIN 0.5 mg/dL (0.2-1.0); TOTAL PROTEIN 7.3 g/dL (6.4-8.2)
--- NOTE | 2020-02-18 11:16 | RAD ---
ADDENDUM #1 Addendum: Please refer to the separate report for the chest CT on the same date for additional thorac ic findings. Electronically signed by: Graciela Buckley MD (02/18/2020 1:20 PM) [id number] ORIGINAL REPORT EXAM: Abdomen and pelvis CT without intravenous contrast. HISTORY: Pain. TECHNIQUE: Computed tomographic images of the abdomen and pelvis were obtained without contrast. Mult iplanar reformatting was performed. *One or more of the following individualized dose reduction techniques were utilized for this examina tion: 1. Automated exposure control. 2. Adjustment of the mA and/or kV according to patient size. 3. Use of iterative reconstruction technique. COMPARISON: 03/14/2019. FINDINGS: Evaluation of the lower thorax demonstrates bilateral posterior dependent and basilar atele ctasis and pleural parenchymal scarring. There is no consolidation or pleural effusion. There is card iomegaly. There is no hepatic lesion. There is cholelithiasis. The pancreas is unremarkable. There is a 1.5 cm hypodense lesion within the medial spleen. The adrenal glands are unremarkable. There are 1.3 cm and 1.0 cm partially exophytic lesions within the left kidney, too small to characte rize and likely cystic in etiology. There is a simple appearing cyst within the lower pole the left k idney measuring 2.7 cm. There is a right renal parapelvic cyst measuring 2.8 cm. There is also a righ t renal cortical cyst measuring 1.1 cm. There are renal vascular calcifications. There is a partially duplicated right renal collecting system. There is no hydronephrosis. There is no appendicitis. There is no bowel obstruction. There is distal colonic diverticulosis. Ther e is no evidence of diverticulitis. The urinary bladder is nearly empty. There is aortic and aortic b ranch vessel atherosclerosis. There is an infrarenal aortic aneurysm measuring 3.8 cm. There is no ly mphadenopathy. There is no suspicious osseous lesion. IMPRESSION: 1. Colonic diverticulosis. 2. Multiple bilateral renal cysts, the largest of which are simple in appearance. There are 1.0 cm an d 1.3 cm lesions within the left kidney which are too small to characterize and also likely cyst base d on the appearance on a CT performed 03/14/2019. No convincing solid lesion is seen. 3. 3.8 cm abdominal aortic aneurysm. 4. 1.5 cm hypodense lesion within the spleen. This is stable in appearance and likely a cyst or heman gioma. Electronically signed by: Graciela Buckley MD (02/18/2020 11:06 AM) [id number]
[2020-02-18] MEDS ORDERED: CONTRAST GIVEN. MC PRN (12:45)
[2020-02-18] MEDS ORDERED: IOHEXOL 350 MG/ML 100 ML VIAL. IV ONE (12:45)
--- NOTE | 2020-02-18 13:25 | RAD ---
EXAM: CT angiography of the chest with intravenous contrast. HISTORY: Chest pain and shortness of breath. TECHNIQUE: Computed tomographic images of the chest were obtained following the administration of int ravenous contrast according to angiography protocol. Multiplanar reformatting was performed and three dimensional maximum intensity projection images were obtained. *One or more of the following individualized dose reduction techniques were utilized for this examina tion: 1. Automated exposure control. 2. Adjustment of the mA and/or kV according to patient size. 3. Use of iterative reconstruction technique. COMPARISON: None. FINDINGS: There is no evidence of pulmonary embolism. There is mild cardiomegaly. There is calcified atherosclerotic plaque involving the aorta, aortic great vessels and coronary arteries. There is calc ification involving the aortic valve. No mediastinal or hilar lymphadenopathy is seen. There is gynec omastia. There is mild emphysema. There is no pneumothorax or pleural effusion. There is bilateral po sterior dependent and basilar atelectasis. There are superimposed basilar, right middle lobe and ling ular pleural parenchymal scarring. There are multiple bilateral pulmonary nodules. For reference purposes, there is a 5 mm pleural-based nodule within the anterior lateral right upper lobe (series 3, image 56). There is a 5 mm nodule wit hin the medial right middle lobe (series 3, image 77). There is a 10 mm nodule within the lateral rig ht middle lobe (series 3, image 81). There is a 9 mm nodule within the right middle lobe (series 3, i mage 87). There is a 4 mm pleural-based nodule within the lateral right middle lobe (series 3, image 100). There are 3 mm and 4 mm nodules at the right lung base. There is a 5 mm nodule within the poste rior left lower lobe (series 3, image 98). There are additional 3 mm and 2 mm nodules at the left angela g base and within the left lower lobe. There are several bilateral pleural-based nodules measuring up to 3 mm. There is a 2.0 cm hypodense lesion within the medial spleen. There is suspected hepatomegaly, partial ly included on the [id number]. There is no acute finding involving the upper abdomen. There are de generative changes throughout the spine. There is no acute or suspicious osseous lesion. IMPRESSION: 1. No evidence of pulmonary embolism. 2. Mild emphysema and bilateral mid and lower lung predominant atelectasis and pleural parenchymal sc arring. There is no consolidated infiltrate. 3. Multiple bilateral pulmonary nodules, the largest of which measures 10 mm within the right middle lobe. This may be within limits for assessment with PET/CT. The additional nodules are likely too sma ll to characterize with PET. Short-term follow-up in 3 months is recommended. 4. 2.0 cm hypodense lesion within the spleen. The stable compared to a study performed 03/14/2019, favo ring a cyst or hemangioma. 5. Please refer to the separate report for the abdomen and pelvis CT on the same date for additional findings. Electronically signed by: Graciela Buckley MD (02/18/2020 1:20 PM) [id number]
--- NOTE | 2020-02-18 13:32 | PDOC1 ---
History and Physical Date of Admission Date of Admission DATE: 02/18/20 TIME: 13:29 Identification/Chief Complaint Chief Complaint Shortness of breath Source Source: Patient History of Present Illness History of Present Illness Mr Andrews is a 68yo M w/ PMHx COPD, CVA, Diabetes-Type II, High Cholesterol, Hypertension, hiatal hernia, left sided weakness post cva, chronic leg pain/edema obesity who presents to the ED today with shortness of breath. He has been more short of breath over the past 2 to 3 days. He denies any recent cough or fever. His shortness of breath is worse with exertion. He intermittently feels palpitations. He denies having vomiting but has had some epigastric abdominal pain. His abdominal pain is a throbbing aching pain that comes and goes without alleviating or exacerbating factors. It is associated with nausea without vomiting. Initial EKG shows irregularly irregular rhythm without an obvious P wave. Heart rate at 105. ST segments congruent. Nonspecific T wave flattening in the lateral leads. Not suggestive of acute ischemia. Second EKG taken at 952 shows A. fib with RVR. ST segments congruent. Not suggestive of acute ischemia. Chest radiograph no acute abnormality. D-dimer was elevated therefore he un derwent a CTPA with no evidence of pulmonary embolism, mild emphysema and bilateral mid and lower lung predominant atelectasis and pleural parenchymal scarring, and multiple bilateral pulmonary nodules, the largest of which measures 10 mm within the right middle lobe. This may be within limits for assessment with PET/CT. The additional nodules are likely too small to characterize with PET. Short-term follow-up in 3 months is recommended. 2.0 cm hypodense lesion within the spleen. The stable compared to a study performed 03/14/2019, favoring a cyst or hemangioma. CT abdomen pelvis with colonic diverticulosis, multiple bilateral renal cysts, the largest of which are simple in appearance. There are 1.0 cm and 1.3 cm lesions within the left kidney which are too small to characterize and also likely cyst based on the appearance on a CT performed 03/14/2019. No convincing solid lesion is seen. Also with 3.8 cm abdominal aortic aneurysm. 1.5 cm hypodense lesion within the spleen. This is stable in appearance and likely a cyst or hemangioma. WBC 6.1, Hb 13.6, platelets 221, NA 138, K3.8, BUN 16, CR 1, glucose 207, albumin 2.9, troponin 0.027, BNP 123, LFTs within normal limits. Urinalysis bland On my evaluation he is asking for food and to go home. Has not been taking many of his home medications lately per EMS, including metoprolol. HR was in 140s in the ED, improved after IV metoprolol. Advised he should be admitted overnight for management of his afib with RVR. Past Medical History Cardiovascular: HTN Pulmonary: COPD, Other CENTRAL NERVOUS SYSTEM: CVA GI: GERD Endocrine: Diabetes Past Surgical History Past Surgical History: Hernia Repair Family History Family History: Coronary Artery Disease, High Cholestrol, Hypertension Social History Smoke: No ALCOHOL: none Drugs: None Current Medications Current Medications Current Medications Diltiazem HCl (Cardizem Iv Push) 10 mg 1X ONCE IVP ; Start 02/18/20 at 10:15; Stop 02/18/20 at 10:23; Status DC Metoprolol Tartrate (Lopressor Vial) 2.5 mg 1X ONCE IVP Last administered on 02/18/20at 10:40; Start 02/18/20 at 10:30; Stop 02/18/20 at 10:31; Status DC Iohexol (Omnipaque 350 Mg/ml) 100 ml 1X ONCE IV Last administered on 02/18/20at 13:05; Start 02/18/20 at 12:45; Stop 02/18/20 at 12:46; Status DC Info (CONTRAST GIVEN -- Rx MONITORING) 1 each PRN DAILY PRN MC SEE COMMENTS; Start 02/18/20 at 12:45; Stop 02/20/20 at 12:44 Active Scripts Active Humalog (Insulin Lispro) 100 Unit/1 Ml Insuln.pen 0 Units SQ TIDWMEALS 30 Days Duoneb 0.5-3(2.5) Mg/3 Ml (Albuterol/Ipratropium) 3 Ml Ampul.neb 3 Ml NEB RTQID 30 Days Amaryl (Glimepiride) 2 Mg Tablet 2 Mg PO DAILY 30 Days Aspirin 325 Mg Tablet 325 Mg PO DAILYWBKFT 30 Days Metoprolol Tartrate 25 Mg Tablet 25 Mg PO BID 30 Days Montelukast Sodium Tablet (Montelukast Sodium) 10 Mg Tablet 10 Mg PO QHS Gabapentin 600 Mg Tablet 600 Mg PO BID 30 Days Tessalon Perle (Benzonatate) 100 Mg Capsule 100 Mg PO TID PRN 14 Days Mupirocin Ointment (Mupirocin) 22 Gm Oint...g. 1 Sudheer TP TID Nystatin 15 Gm Powder 1 Sudheer TP BID Reported Pepcid (Famotidine) 20 Mg Tablet 20 Mg PO BID Allergies Allergies: Coded Allergies: Penicillins (Verified Allergy, Intermediate, PT DOESN'T REMEMBER, 03/21/16) bacitracin (Verified Allergy, Intermediate, 10/25/14) chlorpheniramine (Verified Allergy, Intermediate, 10/25/14) ciprofloxacin (Verified Allergy, Intermediate, 10/25/14) codeine (Verified Allergy, Intermediate, 10/25/14) dextromethorphan (Verified Allergy, Intermediate, 10/25/14) felodipine (Verified Allergy, Intermediate, 02/18/20) Diltiazem ok influenza virus vaccine, specific (Verified Allergy, Intermediate, 10/25/14) neomycin (Verified Allergy, Intermediate, 10/25/14) phenylephrine (Verified Allergy, Intermediate, 10/25/14) polymyxin B (Verified Allergy, Intermediate, 10/25/14) sulfamethoxazole (Verified Allergy, Intermediate, 10/25/14) trimethoprim (Verified Allergy, Intermediate, 10/25/14) ROS General: YES: Fatigue, Malaise; No: Chills, Night Sweats, Appetite, Other PSYCHOLOGICAL ROS: No: Anxiety, Behavioral Disorder, Concentration difficultie, Decreased libido, Depression, Disorientation, Hallucinations, Hostility, Irritablity, Memory difficulties, Mood Swings, Obsessive thoughts, Physical abuse, Sexual abuse, Sleep disturbances, Suicidal ideation, Other Eyes: No Blurry vision, No Decreased vision, No Double vision, No Dry eyes, No Excessive tearing, No Eye Pain, No Itchy Eyes, No Loss of vision, No Photophobia, No Scotomata, No Uses contacts, No Uses glasses, No Other HEENT: No: Heacaches, Visual Changes, Hearing change, Nasal congestion, Nasal discharge, Oral lesions, Sinus pain, Sore Throat, Epistaxis, Sneezing, Snoring, Tinnitus, Vertigo, Vocal changes, Other ALLERGY AND IMMUNOLOGY: No: Hives, Insect Bite Sensitivity, Itchy/Watery Eyes, Nasal Congestion, Post Nasal Drip, Seasonal Allergies, Other Hematological and Lymphatic: No: Bleeding Problems, Blood Clots, Blood Transfusions, Brusing, Night Sweats, Pallor, Swollen Lymph Nodes, Other ENDOCRINE: No: Breast Changes, Galactorrhea, Hair Pattern Changes, Hot Flashes, Malaise/lethargy, Mood Swings, Palpitations, Polydipsia/polyuria, Skin Changes, Temperature Intolerance, Unexpected Weight Changes, Other Breast: No New/Changing Breast Lumps, No Nipple changes, No Nipple discharge, No Other Respiratory: YES: Shortness of breath; No: Cough, Hemoptysis, Orthopnea, Pleuritic Pain, SOB with excertion, Sputum Changes, Stridor, Tachypnea, Wheezing, Other Cardiovascular: No Chest Pain, No Palpitations, No Orthopnea, No Paroxysmal Noc. Dyspnea, No Edema, No Lt Headedness, No Other Gastrointestinal: Yes Nausea, Yes Abdominal Pain; No Vomiting, No Diarrhea, No Constipation, No Melena, No Hematochezia, No Other Genitourinary: No Dysuria, No Frequency, No Incontinence, No Hematuria, No Retention, No Discharge, No Urgency, No Pain, No Flank Pain, No Other, No , No , No , No , No , No , No Musculoskeletal: No Gait Disturbance, No Joint Pain, No Joint Stiffness, No Joint Swelling, No Muscle Pain, No Muscular Weakness, No Pain In:, No Swelling In:, No Other Neurological: No Behavorial Changes, No Bowel/Bladder ControlChng, No Confusion, No Dizziness, No Gait Disturbance, No Headaches, No Impaired Coord/balance, No Memory Loss, No Numbness/Tingling, No Seizures, No Speech Problems, No Tremors, No Visual Changes, No Weakness, No Other Skin: No Dry Skin, No Eczema, No Hair Changes, No Lumps, No Mole Changes, No Mottling, No Nail Changes, No Pruritus, No Rash, No Skin Lesion Changes, No Other, No Acne Physical Exam General: Alert, Oriented X3, Cooperative, No acute distress HEENT: Atraumatic, PERRLA, EOMI, Mucous membr. moist/pink Lungs: Clear to auscultation, Normal air movement Heart: irregularly irregular Abdomen: Normal bowel sounds, Soft, No tenderness, No hepatosplenomegaly, No masses Extremities: No clubbing, No cyanosis, No edema, Normal pulses, No tenderness/swelling Skin: No rashes, No breakdown, No significant lesion Neuro: Normal gait, Normal speech, Strength at 5/5 X4 ext, Normal tone, Sensation intact, Cranial nerves 3-12 NL, Reflexes 2+ Psych/Mental Status: Mood NL, Other (Strange affect) Vitals Vitals Vital Signs Date Time Temp Pulse Resp B/P (MAP) Pulse Ox O2 Delivery O2 Flow Rate FiO2 02/18/20 11:08 92 20 161/77 (105) 94 Room Air 02/18/20 09:52 98.6 98.6 Labs Labs Laboratory Tests Test 02/18/20 09:58 White Blood Count 6.1 x10^3/uL (4.0-11.0) Red Blood Count 4.27 x10^6/uL (4.30-5.70) Hemoglobin 13.6 g/dL (13.0-17.5) Hematocrit 40.1 % (39.0-53.0) Mean Corpuscular Volume 94 fL (79-100) Mean Corpuscular Hemoglobin 32 pg (25-35) Mean Corpuscular Hemoglobin Concent 34 g/dL (31-37) Red Cell Distribution Width 13.8 % (11.5-14.5) Platelet Count 221 x10^3/uL (140-400) Neutrophils (%) (Auto) 46 % (31-73) Lymphocytes (%) (Auto) 42 % (24-48) Monocytes (%) (Auto) 7 % (0-9) Eosinophils (%) (Auto) 5 % (0-3) Basophils (%) (Auto) 1 % (0-3) Neutrophils # (Auto) 2.8 x10^3/uL (1.8-7.7) Lymphocytes # (Auto) 2.5 x10^3/uL (1.0-4.8) Monocytes # (Auto) 0.4 x10^3/uL (0.0-1.1) Eosinophils # (Auto) 0.3 x10^3/uL (0.0-0.7) Basophils # (Auto) 0.0 x10^3/uL (0.0-0.2) D-Dimer (Dianelys) 1.26 ug/mlFEU (0.00-0.50) Sodium Level 138 mmol/L (136-145) Potassium Level 3.8 mmol/L (3.5-5.1) Chloride Level 102 mmol/L (98-107) Carbon Dioxide Level 27 mmol/L (21-32) Anion Gap 9 (6-14) Blood Urea Nitrogen 16 mg/dL (8-26) Creatinine 1.0 mg/dL (0.7-1.3) Estimated GFR (Cockcroft-Gault) 73.7 Glucose Level 207 mg/dL (70-99) Calcium Level 9.1 mg/dL (8.5-10.1) Total Bilirubin 0.5 mg/dL (0.2-1.0) Direct Bilirubin 0.1 mg/dL (0.0-0.2) Aspartate Amino Transf (AST/SGOT) 19 U/L (15-37) Alanine Aminotransferase (ALT/SGPT) 33 U/L (16-63) Alkaline Phosphatase 84 U/L (46-116) Troponin I Quantitative 0.027 ng/mL (0.000-0.055) UI-Gnp-E-Type Natriuretic Peptide 123 pg/mL (0-124) Total Protein 7.3 g/dL (6.4-8.2) Albumin 2.9 g/dL (3.4-5.0) Lipase 117 U/L (73-393) Laboratory Tests Test 02/18/20 09:58 White Blood Count 6.1 x10^3/uL (4.0-11.0) Red Blood Count 4.27 x10^6/uL (4.30-5.70) Hemoglobin 13.6 g/dL (13.0-17.5) Hematocrit 40.1 % (39.0-53.0) Mean Corpuscular Volume 94 fL (79-100) Mean Corpuscular Hemoglobin 32 pg (25-35) Mean Corpuscular Hemoglobin Concent 34 g/dL (31-37) Red Cell Distribution Width 13.8 % (11.5-14.5) Platelet Count 221 x10^3/uL (140-400) Neutrophils (%) (Auto) 46 % (31-73) Lymphocytes (%) (Auto) 42 % (24-48) Monocytes (%) (Auto) 7 % (0-9) Eosinophils (%) (Auto) 5 % (0-3) Basophils (%) (Auto) 1 % (0-3) Neutrophils # (Auto) 2.8 x10^3/uL (1.8-7.7) Lymphocytes # (Auto) 2.5 x10^3/uL (1.0-4.8) Monocytes # (Auto) 0.4 x10^3/uL (0.0-1.1) Eosinophils # (Auto) 0.3 x10^3/uL (0.0-0.7) Basophils # (Auto) 0.0 x10^3/uL (0.0-0.2) D-Dimer (Dianelys) 1.26 ug/mlFEU (0.00-0.50) Sodium Level 138 mmol/L (136-145) Potassium Level 3.8 mmol/L (3.5-5.1) Chloride Level 102 mmol/L (98-107) Carbon Dioxide Level 27 mmol/L (21-32) Anion Gap 9 (6-14) Blood Urea Nitrogen 16 mg/dL (8-26) Creatinine 1.0 mg/dL (0.7-1.3) Estimated GFR (Cockcroft-Gault) 73.7 Glucose Level 207 mg/dL (70-99) Calcium Level 9.1 mg/dL (8.5-10.1) Total Bilirubin 0.5 mg/dL (0.2-1.0) Direct Bilirubin 0.1 mg/dL (0.0-0.2) Aspartate Amino Transf (AST/SGOT) 19 U/L (15-37) Alanine Aminotransferase (ALT/SGPT) 33 U/L (16-63) Alkaline Phosphatase 84 U/L (46-116) Troponin I Quantitative 0.027 ng/mL (0.000-0.055) HN-Eeo-K-Type Natriuretic Peptide 123 pg/mL (0-124) Total Protein 7.3 g/dL (6.4-8.2) Albumin 2.9 g/dL (3.4-5.0) Lipase 117 U/L (73-393) Images Images Chest radiograph: The cardiomediastinal silhouette is within normal limits. Chronic interstitial changes are noted at the lung bases with minimal scarring. No new airspace consolidation. There are no significant pleural effusions. There is no pulmonary vascular congestion. No pneumothorax. No suspicious osseous abnormality. IMPRESSION: There is no acute cardiopulmonary process. CTPA: CT angiography of the chest with intravenous contrast. There is no evidence of pulmonary embolism. There is mild cardiomegaly. There is calcified atherosclerotic plaque involving the aorta, aortic great vessels and coronary arteries. There is calcification involving the aortic valve. No mediastinal or hilar lymphadenopathy is seen. There is gynecomastia. There is mild emphysema. There is no pneumothorax or pleural effusion. There is bilateral posterior dependent and basilar atelectasis. There are superimposed basilar, right middle lobe and lingular pleural parenchymal scarring. There are multiple bilateral pulmonary nodules. For reference purposes, there is a 5 mm pleural-based nodule within the anterior lateral right upper lobe (series 3, image 56). There is a 5 mm nodule within the medial right middle lobe (series 3, image 77). There is a 10 mm nodule within the lateral right middle lobe (series 3, image 81). There is a 9 mm nodule within the right middle lobe (series 3, image 87). There is a 4 mm pleural-based nodule within the lateral right middle lobe (series 3, image 100). There are 3 mm and 4 mm nodules at the right lung base. There is a 5 mm nodule within the posterior left lower lobe (series 3, image 98). There are additional 3 mm and 2 mm nodules at the left lung base and within the left lower lobe. There are several bilateral pleural- based nodules measuring up to 3 mm. There is a 2.0 cm hypodense lesion within the medial spleen. There is suspected hepatomegaly, partially included on the [id number]. There is no acute finding involving the upper abdomen. There are degenerative changes throughout the spine. There is no acute or suspicious osseous lesion. IMPRESSION: 1. No evidence of pulmonary embolism. 2. Mild emphysema and bilateral mid and lower lung predominant atelectasis and pleural parenchymal scarring. There is no consolidated infiltrate. 3. Multiple bilateral pulmonary nodules, the largest of which measures 10 mm within the right middle lobe. This may be within limits for assessment with PET/CT. The additional nodules are likely too small to characterize with PET. Short-term follow-up in 3 months is recommended. 4. 2.0 cm hypodense lesion within the spleen. The stable compared to a study performed 03/14/2019, favoring a cyst or hemangioma. CT abdomen/pelvis w/o IV contrast: Evaluation of the lower thorax demonstrates bilateral posterior dependent and basilar atelectasis and pleural parenchymal scarring. There is no consolidation or pleural effusion. There is cardiomegaly. There is no hepatic lesion. There is cholelithiasis. The pancreas is unremarkable. There is a 1.5 cm hypodense lesion within the medial spleen. The adrenal glands are unremarkable. There are 1.3 cm and 1.0 cm partially exophytic lesions within the left kidney, too small to characterize and likely cystic in etiology. There is a simple appearing cyst within the lower pole the left kidney measuring 2.7 cm. There is a right renal parapelvic cyst measuring 2.8 cm. There is also a right renal cortical cyst measuring 1.1 cm. There are renal vascular calcifications. There is a partially duplicated right renal collecting system. There is no hydronephrosis. There is no appendicitis. There is no bowel obstruction. There is distal colonic diverticulosis. There is no evidence of diverticulitis. The urinary bladder is nearly empty. There is aortic and aortic branch vessel atherosclerosis. There is an infrarenal aortic aneurysm measuring 3.8 cm. There is no lymphadenopathy. There is no suspicious osseous lesion. IMPRESSION: 1. Colonic diverticulosis. 2. Multiple bilateral renal cysts, the largest of which are simple in appearance. There are 1.0 cm and 1.3 cm lesions within the left kidney which are too small to characterize and also likely cyst based on the appearance on a CT performed 03/14/2019. No convincing solid lesion is seen. 3. 3.8 cm abdominal aortic aneurysm. 4. 1.5 cm hypodense lesion within the spleen. This is stable in appearance and likely a cyst or hemangioma. VTE Prophylaxis Ordered VTE Prophylaxis Devices: No VTE Pharmacological Prophylaxi: Yes Assessment/Plan Assessment/Plan A/P: Abdominal pain - likely gastroparesis. He does not wish for further testing at this time. Labs normalized. Appetite good, wishes to eat Afib with RVR - slowed with IV metoprolol COPD - cont home nebulizers, on chronic home O2. On review it was last renewed here. Diabetes-Type II - refusing glucose checks. Cont home meds. needs home health for compliance High Cholesterol - Hypertension, hiatal hernia, left sided weakness post cva, chronic leg pain/edema obesity AAA - 3.8cm. Annual observation Hypertensive urgency - not clear if he is taking his medications. Will cont BB DAVID - on home CPAP Unusual behavior - he denies psychiatric history Multiple bilateral pulmonary nodules, the largest of which measures 10 mm within the right middle lobe - advised f/u in 3 months 2.0 cm hypodense lesion within the spleen. The stable compared to a study performed 03/14/2019, favoring a cyst or hemangioma. Diverticulosis - advised increasing fiber intake Multiple bilateral renal cysts Advised he should be admitted overnight for management of his afib with RVR and advised of the risks of leaving the hospital AGAINST MEDICAL ADVICE. He voiced understanding and states he just wants to go home and have a sandwich Justifications for Admission Other Justification JARRED SINGH MD Feb 18, 2020 13:32
--- NOTE | 2020-02-18 17:17 | EKG ---
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
[2020-02-18 18:00] VITALS: BP 173/90
--- NOTE | 2020-02-18 23:08 | PDOC3 ---
Discharge Summary Visit Information Date of Admission: Feb 18, 2020 Date of Discharge: Feb 18, 2020 Admitting Diagnosis: Afib with RVR Final Diagnosis Problems Medical Problems: (1) Atrial fibrillation with RVR Status: Acute Brief Hospital Course Allergies Allergies Coded Allergies Type Severity Reaction Last Updated Verified Penicillins Allergy Intermediate PT DOESN'T REMEMBER 03/21/16 Yes bacitracin Allergy Intermediate 10/25/14 Yes chlorpheniramine Allergy Intermediate 10/25/14 Yes ciprofloxacin Allergy Intermediate 10/25/14 Yes codeine Allergy Intermediate 10/25/14 Yes dextromethorphan Allergy Intermediate 10/25/14 Yes felodipine Allergy Intermediate 02/18/20 Yes influenza virus vaccine, specific Allergy Intermediate 10/25/14 Yes neomycin Allergy Intermediate 10/25/14 Yes phenylephrine Allergy Intermediate 10/25/14 Yes polymyxin B Allergy Intermediate 10/25/14 Yes sulfamethoxazole Allergy Intermediate 10/25/14 Yes trimethoprim Allergy Intermediate 10/25/14 Yes Vital Signs Vital Signs Date Time Temp Pulse Resp B/P (MAP) Pulse Ox O2 Delivery O2 Flow Rate FiO2 02/18/20 18:00 104 20 173/90 (117) 96 Nasal Cannula 02/18/20 14:08 2.0 02/18/20 09:52 98.6 98.6 Lab Results Laboratory Tests Test 02/18/20 09:58 White Blood Count 6.1 x10^3/uL (4.0-11.0) Red Blood Count 4.27 x10^6/uL (4.30-5.70) Hemoglobin 13.6 g/dL (13.0-17.5) Hematocrit 40.1 % (39.0-53.0) Mean Corpuscular Volume 94 fL (79-100) Mean Corpuscular Hemoglobin 32 pg (25-35) Mean Corpuscular Hemoglobin Concent 34 g/dL (31-37) Red Cell Distribution Width 13.8 % (11.5-14.5) Platelet Count 221 x10^3/uL (140-400) Neutrophils (%) (Auto) 46 % (31-73) Lymphocytes (%) (Auto) 42 % (24-48) Monocytes (%) (Auto) 7 % (0-9) Eosinophils (%) (Auto) 5 % (0-3) Basophils (%) (Auto) 1 % (0-3) Neutrophils # (Auto) 2.8 x10^3/uL (1.8-7.7) Lymphocytes # (Auto) 2.5 x10^3/uL (1.0-4.8) Monocytes # (Auto) 0.4 x10^3/uL (0.0-1.1) Eosinophils # (Auto) 0.3 x10^3/uL (0.0-0.7) Basophils # (Auto) 0.0 x10^3/uL (0.0-0.2) D-Dimer (Dianelys) 1.26 ug/mlFEU (0.00-0.50) Sodium Level 138 mmol/L (136-145) Potassium Level 3.8 mmol/L (3.5-5.1) Chloride Level 102 mmol/L (98-107) Carbon Dioxide Level 27 mmol/L (21-32) Anion Gap 9 (6-14) Blood Urea Nitrogen 16 mg/dL (8-26) Creatinine 1.0 mg/dL (0.7-1.3) Estimated GFR (Cockcroft-Gault) 73.7 Glucose Level 207 mg/dL (70-99) Calcium Level 9.1 mg/dL (8.5-10.1) Total Bilirubin 0.5 mg/dL (0.2-1.0) Direct Bilirubin 0.1 mg/dL (0.0-0.2) Aspartate Amino Transf (AST/SGOT) 19 U/L (15-37) Alanine Aminotransferase (ALT/SGPT) 33 U/L (16-63) Alkaline Phosphatase 84 U/L (46-116) Troponin I Quantitative 0.027 ng/mL (0.000-0.055) ZM-Qhy-S-Type Natriuretic Peptide 123 pg/mL (0-124) Total Protein 7.3 g/dL (6.4-8.2) Albumin 2.9 g/dL (3.4-5.0) Lipase 117 U/L (73-393) Laboratory Tests Test 02/18/20 09:58 White Blood Count 6.1 x10^3/uL (4.0-11.0) Red Blood Count 4.27 x10^6/uL (4.30-5.70) Hemoglobin 13.6 g/dL (13.0-17.5) Hematocrit 40.1 % (39.0-53.0) Mean Corpuscular Volume 94 fL (79-100) Mean Corpuscular Hemoglobin 32 pg (25-35) Mean Corpuscular Hemoglobin Concent 34 g/dL (31-37) Red Cell Distribution Width 13.8 % (11.5-14.5) Platelet Count 221 x10^3/uL (140-400) Neutrophils (%) (Auto) 46 % (31-73) Lymphocytes (%) (Auto) 42 % (24-48) Monocytes (%) (Auto) 7 % (0-9) Eosinophils (%) (Auto) 5 % (0-3) Basophils (%) (Auto) 1 % (0-3) Neutrophils # (Auto) 2.8 x10^3/uL (1.8-7.7) Lymphocytes # (Auto) 2.5 x10^3/uL (1.0-4.8) Monocytes # (Auto) 0.4 x10^3/uL (0.0-1.1) Eosinophils # (Auto) 0.3 x10^3/uL (0.0-0.7) Basophils # (Auto) 0.0 x10^3/uL (0.0-0.2) D-Dimer (Dianelys) 1.26 ug/mlFEU (0.00-0.50) Sodium Level 138 mmol/L (136-145) Potassium Level 3.8 mmol/L (3.5-5.1) Chloride Level 102 mmol/L (98-107) Carbon Dioxide Level 27 mmol/L (21-32) Anion Gap 9 (6-14) Blood Urea Nitrogen 16 mg/dL (8-26) Creatinine 1.0 mg/dL (0.7-1.3) Estimated GFR (Cockcroft-Gault) 73.7 Glucose Level 207 mg/dL (70-99) Calcium Level 9.1 mg/dL (8.5-10.1) Total Bilirubin 0.5 mg/dL (0.2-1.0) Direct Bilirubin 0.1 mg/dL (0.0-0.2) Aspartate Amino Transf (AST/SGOT) 19 U/L (15-37) Alanine Aminotransferase (ALT/SGPT) 33 U/L (16-63) Alkaline Phosphatase 84 U/L (46-116) Troponin I Quantitative 0.027 ng/mL (0.000-0.055) VK-Hay-W-Type Natriuretic Peptide 123 pg/mL (0-124) Total Protein 7.3 g/dL (6.4-8.2) Albumin 2.9 g/dL (3.4-5.0) Lipase 117 U/L (73-393) Brief Hospital Course Mr Andrews is a 68yo M w/ PMHx COPD, CVA, Diabetes-Type II, High Cholesterol, Hypertension, hiatal hernia, left sided weakness post cva, chronic leg pain/edema obesity who presents to the ED today with shortness of breath. He has been more short of breath over the past 2 to 3 days. He denies any recent cough or fever. His shortness of breath is worse with exertion. He intermittently feels palpitations. He denies having vomiting but has had some epigastric abdominal pain. His abdominal pain is a throbbing aching pain that comes and goes without alleviating or exacerbating factors. It is associated with nausea without vomiting. Initial EKG shows irregularly irregular rhythm without an obvious P wave. Heart rate at 105. ST segments congruent. Nonspecific T wave flattening in the lateral leads. Not suggestive of acute ischemia. Second EKG taken at 952 shows A. fib with RVR. ST segments congruent. Not suggestive of acute ischemia. Chest radiograph no acute abnormality. D-dimer was elevated therefore he underw ent a CTPA with no evidence of pulmonary embolism, mild emphysema and bilateral mid and lower lung predominant atelectasis and pleural parenchymal scarring, and multiple bilateral pulmonary nodules, the largest of which measures 10 mm within the right middle lobe. This may be within limits for assessment with PET/CT. The additional nodules are likely too small to characterize with PET. Short-term follow-up in 3 months is recommended. 2.0 cm hypodense lesion within the spleen. The stable compared to a study performed 03/14/2019, favoring a cyst or hemangioma. CT abdomen pelvis with colonic diverticulosis, multiple bilateral renal cysts, the largest of which are simple in appearance. There are 1.0 cm and 1.3 cm lesions within the left kidney which are too small to characterize and also likely cyst based on the appearance on a CT performed 03/14/2019. No convincing solid lesion is seen. Also with 3.8 cm abdominal aortic aneurysm. 1.5 cm hypodense lesion within the spleen. This is stable in appearance and likely a c yst or hemangioma. WBC 6.1, Hb 13.6, platelets 221, NA 138, K3.8, BUN 16, CR 1, glucose 207, albumin 2.9, troponin 0.027, BNP 123, LFTs within normal limits. Urinalysis bland On my evaluation he is asking for food and to go home. Has not been taking many of his home medications lately per EMS, including metoprolol. HR was in 140s in the ED, improved after IV metoprolol. Advised he should be admitted overnight for management of his afib with RVR and advised of the risks of leaving the hospital AGAINST MEDICAL ADVICE. He voiced understanding and states he just wants to go home and have a sandwich Problem list: Abdominal pain - likely gastroparesis. He does not wish for further testing at this time. Labs normalized. Appetite good, wishes to eat Afib with RVR - slowed with IV metoprolol COPD - cont home nebulizers, on chronic home O2. On review it was last renewed here. Diabetes-Type II - refusing glucose checks. Cont home meds. needs home health for compliance High Cholesterol - Hypertension, hiatal hernia, left sided weakness post cva, chronic leg pain/edema obesity AAA - 3.8cm. Annual observation Hypertensive urgency - not clear if he is taking his medications. Will cont BB DAVID - on home CPAP Unusual behavior - he denies psychiatric history Multiple bilateral pulmonary nodules, the largest of which measures 10 mm within the right middle lobe - advised f/u in 3 months 2.0 cm hypodense lesion within the spleen. The stable compared to a study performed 03/14/2019, favoring a cyst or hemangioma. Diverticulosis - advised increasing fiber intake Multiple bilateral renal cysts Greater than 70 minutes spent on same day admit and AMA discharge. Patient expressed that he knows his rights and does not wish to be hospitalized despite medical advice to do so. Discharge Information Condition at Discharge: Stable Follow Up: Weeks Disposition/Orders: D/C to Home Scheduled Aspirin (Aspirin) 325 Mg Tablet, 325 MG PO [id number] for 30 Days, #30 Prescribed by: ANGELA DAWSON on 07/22/17 1345 Famotidine (Pepcid) 20 Mg Tablet, 20 MG PO BID, (Reported) Entered as Reported by: SOPHY KATELYNN on 05/17/13 0343 Gabapentin (Gabapentin) 600 Mg Tablet, 600 MG PO BID for 30 Days, #60 Prescribed by: ANGELA DAWSON on 07/22/17 1345 Glimepiride (Amaryl) 2 Mg Tablet, 2 MG PO DAILY for 30 Days, #30 Prescribed by: ANGELA DAWSON on 07/22/17 1345 Insulin Lispro (Humalog) 100 Unit/1 Ml Insuln.pen, 0 UNITS SQ TIDWMEALS for GLUCOSE CONTROL for 30 Days, #1 Prescribed by: KLAUDIA HAY MD on 08/06/18 1515 Ipratropium/Albuterol Sulfate (Duoneb 0.5-3(2.5) Mg/3 Ml) 3 Ml Ampul.neb, 3 ML NEB RTQID for COPD for 30 Days, #120 Prescribed by: KLAUDIA HAY MD on 08/06/18 1515 Metoprolol Tartrate (Metoprolol Tartrate) 25 Mg Tablet, 25 MG PO BID for 30 Days, #60 Prescribed by: ANGELA DAWSON on 07/22/17 1345 Montelukast Sodium (Montelukast Sodium Tablet ) 10 Mg Tablet, 10 MG PO QHS, #30 Prescribed by: ANGELA DAWSON on 07/22/17 1345 Mupirocin (Mupirocin Ointment) 22 Gm Oint...g., 1 MARCELLE TP TID for WOUND CARE, #1 Prescribed by: DAJA GO on 06/10/16 0135 Nystatin (Nystatin) 15 Gm Powder, 1 MARCELLE TP BID, #1 Prescribed by: DAJA GO on 06/10/16 0135 Scheduled PRN Benzonatate (Tessalon Perle) 100 Mg Capsule, 100 MG PO TID PRN for COUGH for 14 Days, #42 Prescribed by: ANGELA DAWSON on 07/22/17 1345 Justicifation of Admission Dx: Justifications for Admission: Justification of Admission Dx: Yes CHF: Cardiac Arrhythmias JARRED SINGH MD Feb 18, 2020 23:08
[2020-05-22] MEDS ORDERED: AZIT250T PO (14:08)
== END 2020-02-18 18:49 | disposition left against medical advice (07) | DRG 74 ==
LOC: ER 09:41 → ED HOLD 14:33
PROVIDERS: ADMIT Internal Medicine; ATTEND Internal Medicine
DX: E11.43 Type 2 diabetes mellitus with diabetic autonomic (poly)neuropathy (principal); J98.11 Atelectasis; Z68.42 Body mass index [BMI] 45.0-49.9, adult; I16.0 Hypertensive urgency; I48.91 Unspecified atrial fibrillation; D18.00 Hemangioma unspecified site; E66.9 Obesity, unspecified; E78.00 Pure hypercholesterolemia, unspecified; E78.5 Hyperlipidemia, unspecified; G47.33 Obstructive sleep apnea (adult) (pediatric); G89.29 Other chronic pain; I11.9 Hypertensive heart disease without heart failure; I71.4 Abdominal aortic aneurysm, without rupture; J43.9 Emphysema, unspecified; K31.84 Gastroparesis; K44.9 Diaphragmatic hernia without obstruction or gangrene; K57.30 Diverticulosis of large intestine without perforation or abscess without bleeding; K80.20 Calculus of gallbladder without cholecystitis without obstruction; N28.1 Cyst of kidney, acquired; N62 Hypertrophy of breast; Q63.8 Other specified congenital malformations of kidney; Z82.49 Family history of ischemic heart disease and other diseases of the circulatory system; Z86.73 Personal history of transient ischemic attack (TIA), and cerebral infarction without residual deficits; Z87.891 Personal history of nicotine dependence; K21.9 Gastro-esophageal reflux disease without esophagitis; Z53.29 Procedure and treatment not carried out because of patient's decision for other reasons; Z88.0 Allergy status to penicillin; Z88.2 Allergy status to sulfonamides; Z88.8 Allergy status to other drugs, medicaments and biological substances; Z88.7 Allergy status to serum and vaccine; Z20.822 Contact with and (suspected) exposure to COVID-19
CPT/HCPCS: 36415; 71045; 71275; 74176; 80048; 80076; 83690; 83880; 84484; 85025; 85379; 93005; 96374; 99285; J3490; Q9967; U0003

== ENCOUNTER 2020-09-22 09:26 | Inpatient (IN) | payer OTHER ==
[~2020-09-22] VITALS: Ht 175.3 cm; Wt 95.8 kg
[2020-09-22] VITALS (9 sets, daily range): BP systolic 76–122; BP diastolic 46–72
[~2020-09-22 09:26] MED LIST changes: +AMIO200T6 PO; +ATOR40TA59 PO; +AZIT250T PO; +BETA60LO4 TP; +BUDE10.2 INH; +CLOP75TA PO; +DILT240C33 PO; +FURO40TA4 PO; +GLIM4TAB8 PO; +LOSA1TAB25 PO; +NITR100C6 PO; +NYST60PO TP; +Warfarin Per Pharmacy MC
[2020-09-22] MEDS ORDERED: PROPOFOL 100 ML IV PRN (09:45)
[2020-09-22] MEDS ORDERED: fentaNYL PF VIAL 100 MCG/2 ML VIAL IV PRN ×2 (09:45)
[2020-09-22] MEDS ORDERED: CHLORHEXIDINE 0.12% 15 ML MOUTHWASH. MM SCH (10:00)
[2020-09-22 10:06] LABS: BASO % 0 % (0-3); EOS % 0 % (0-3); HEMATOCRIT 27.6 % (39.0-53.0); HEMOGLOBIN 9.3 g/dL (13.0-17.5); LYMPH # 0.8 x10^3/uL (1.0-4.8); LYMPH % 19 % (24-48); MEAN CORPUSCULAR HEMOGLOBIN 32 pg (25-35); MEAN CORPUSCULAR HGB CONC 34 g/dL (31-37); MEAN CORPUSCULAR VOLUME 94 fL (79-100); MONO # 0.3 x10^3/uL (0.0-1.1); MONO % 7 % (0-9); NEUT % 74 % (31-73); PLATELET COUNT 235 x10^3/uL (140-400); RED BLOOD COUNT 2.93 x10^6/uL (4.30-5.70); RED CELL DISTRIBUTION WIDTH 18.5 % (11.5-14.5); WHITE BLOOD COUNT 4.1 x10^3/uL (4.0-11.0)
[2020-09-22 10:07] LABS: BASE EXCESS COOX 5 mmol/L (-3-3); HCO3 COOX 31 mmol/L (21-28); METHEMOGLOBIN 0.5 % (0.0-1.9); PCO2 COOX 51 mmHg (35-46); PO2 COOX 208 mmHg (65-108); SAT O2 COOX 99 % (92-99)
--- NOTE | 2020-09-22 10:25 | RAD ---
EXAM: XR CHEST 1V, XR ABDOMEN 1V. HISTORY: Line placement, small bowel obstruction. COMPARISON: 09/13/2020. FINDINGS: An endotracheal tube has its tip 4 cm above the henry. A nasogastric tube has its tip in t he stomach. There is a small left pleural effusion. Interstitial opacities in a perihilar and basilar distributio n are consistent with mild pulmonary edema. There is no pneumothorax. The heart is mildly to moderate ly enlarged. There are atherosclerotic calcifications of the aorta. There are no distended small bowel loops. Stool throughout the colon is consistent with constipation. There is gas distally. IMPRESSION: 1. Small left pleural effusion. Mild pulmonary edema. 2. Constipation. No evidence of small bowel obstruction. Electronically signed by: Zion Obrien MD (09/22/2020 10:23 AM) [id number]
[2020-09-22 10:27] LABS: CALCIUM 7.7 mg/dL (8.5-10.1); GFR 73.5; POTASSIUM 3.1 mmol/L (3.5-5.1)
[2020-09-22] MEDS ORDERED: MIDAZOLAM HCL/PF 2 MG/2 ML VIAL. IV ONE (10:30)
[2020-09-22 10:33] LABS: ALBUMIN 2.1 g/dL (3.4-5.0); ALBUMIN/GLOBULIN RATIO 0.6 (1.0-1.7); TOTAL BILIRUBIN 1.2 mg/dL (0.2-1.0); TOTAL PROTEIN 5.9 g/dL (6.4-8.2)
[2020-09-22] MEDS ORDERED: IOHEXOL 300 MG/ML 100ML VIAL. IV ONE (10:45)
[2020-09-22] MEDS ORDERED: CONTRAST GIVEN. MC PRN (10:45)
--- NOTE | 2020-09-22 10:46 | PHYS DOC ---
Past Medical History Past Medical History: COPD, CVA, Diabetes-Type II, High Cholesterol, Hypertension, Other Additional Past Medical Histor: hiatal hernia, left sided weakness post cva, chronic leg pain/edema obesity Past Surgical History: Other Additional Past Surgical Histo: UMBILICAL HERNIA SX Smoking Status: Current Every Day Smoker Alcohol Use: None Drug Use: None General Adult EDM: Chief Complaint: CPR/FULL ARREST HPI: HPI: Patient is a 70 year old male with history of recent ICU admissions who presents [facility]unded from his [facility] facility. Reportedly was in his usual state of health and conversational, then became altered. His blood glucose was in the 30s. He was given oral glucose tabs initially. By the time EMS arrived he required assisted ventilations. GCS was reportedly 6. IV access was established. He was brought in by EMS being bagged with a nasal airway placed. Patient is obtunded Review of Systems: Review of Systems: ROS unable to be completed due to patient's mental status Heart Score: C/O Chest Pain: N/A Risk Factors: Risk Factors: DM, Current or recent (<one month) smoker, HTN, HLP, family history of CAD, obesity. Risk Scores: Score 0 - 3: 2.5% MACE over next 6 weeks - Discharge Home Score 4 - 6: 20.3% MACE over next 6 weeks - Admit for Clinical Observation Score 7 - 10: 72.7% MACE over next 6 weeks - Early Invasive Strategies Family History: Family History: No pertinent family history identified Current Medications: Current Medications Medications (Trade) Dose Ordered Sig/Dru Start Time Stop Time Status Last Admin Dose Admin Chlorhexidine Gluconate (Peridex) 15 ml BID 09/22/20 10:00 Fentanyl Citrate (Fentanyl 2ml Vial) 50 mcg PRN Q1HR PRN 09/22/20 09:45 Info (CONTRAST GIVEN -- Rx MONITORING) 1 each PRN DAILY PRN 09/22/20 10:45 09/24/20 10:44 Iohexol (Omnipaque 300 Mg/ml) 75 ml 1X ONCE 09/22/20 10:45 09/22/20 10:46 Midazolam HCl (Versed) 2 mg 1X ONCE 09/22/20 10:30 09/22/20 10:31 DC Propofol 100 ml @ 0 mls/hr CONT PRN 09/22/20 09:45 09/22/20 10:30 5 MLS/HR Allergies: Allergies: Allergies Coded Allergies Type Severity Reaction Last Updated Verified heparin Allergy Severe 09/04/20 Yes Penicillins Allergy Intermediate PT DOESN'T REMEMBER 03/21/16 Yes bacitracin Allergy Intermediate 10/25/14 Yes chlorpheniramine Allergy Intermediate 10/25/14 Yes ciprofloxacin Allergy Intermediate 10/25/14 Yes codeine Allergy Intermediate 10/25/14 Yes dextromethorphan Allergy Intermediate 10/25/14 Yes felodipine Allergy Intermediate 02/18/20 Yes influenza virus vaccine, specific Allergy Intermediate 10/25/14 Yes neomycin Allergy Intermediate 10/25/14 Yes phenylephrine Allergy Intermediate 10/25/14 Yes polymyxin B Allergy Intermediate 10/25/14 Yes sulfamethoxazole Allergy Intermediate 10/25/14 Yes trimethoprim Allergy Intermediate 10/25/14 Yes Physical Exam: PE: Constitutional: Obtunded. GCS 3 [] HENT: Normocephalic, atraumatic, Eyes: Pupils 3 mm, equal, reactive to light.,. [] Neck: Trachea midline, supple [] Cardiovascular: Tachycardic. Regular rhythm, no murmur [] Lungs & Thorax: Coarse breath sounds bilaterally. [] Abdomen: Distended. Unable to assess for tenderness. [] Skin: Bruising overlying the skin of the right upper extremity and the lower abdomen. [] Neurologic: GCS 3. No response to pain. No gag reflex. No pupillary reflex. Pupils are equal, 3 mm, and reactive bilaterally. [] Current Patient Data: Labs: Laboratory Tests Test 09/22/20 09:40 White Blood Count 4.1 x10^3/uL (4.0-11.0) Red Blood Count 2.93 x10^6/uL (4.30-5.70) L Hemoglobin 9.3 g/dL (13.0-17.5) L Hematocrit 27.6 % (39.0-53.0) L Mean Corpuscular Volume 94 fL (79-100) Mean Corpuscular Hemoglobin 32 pg (25-35) Mean Corpuscular Hemoglobin Concent 34 g/dL (31-37) Red Cell Distribution Width 18.5 % (11.5-14.5) H Platelet Count 235 x10^3/uL (140-400) Neutrophils (%) (Auto) 74 % (31-73) H Lymphocytes (%) (Auto) 19 % (24-48) L Monocytes (%) (Auto) 7 % (0-9) Eosinophils (%) (Auto) 0 % (0-3) Basophils (%) (Auto) 0 % (0-3) Neutrophils # (Auto) 3.0 x10^3/uL (1.8-7.7) Lymphocytes # (Auto) 0.8 x10^3/uL (1.0-4.8) L Monocytes # (Auto) 0.3 x10^3/uL (0.0-1.1) Eosinophils # (Auto) 0.0 x10^3/uL (0.0-0.7) Basophils # (Auto) 0.0 x10^3/uL (0.0-0.2) O2 Saturation 99 % (92-99) Arterial Blood pH 7.39 (7.35-7.45) Arterial Blood pCO2 at Patient Temp 51 mmHg (35-46) H Arterial Blood pO2 at Patient Temp 208 mmHg (65-108) H Arterial Blood HCO3 31 mmol/L (21-28) H Arterial Blood Base Excess 5 mmol/L (-3-3) H Oxyhemoglobin 98.0 % Methemoglobin 0.5 % (0.0-1.9) Carbon Monoxide, Quantitative 0.3 % (0.0-1.9) FiO2 100/vent Sodium Level 143 mmol/L (136-145) Potassium Level 3.1 mmol/L (3.5-5.1) L Chloride Level 103 mmol/L (98-107) Carbon Dioxide Level 32 mmol/L (21-32) Anion Gap 8 (6-14) Blood Urea Nitrogen 27 mg/dL (8-26) H Creatinine 1.0 mg/dL (0.7-1.3) Estimated GFR (Cockcroft-Gault) 73.5 BUN/Creatinine Ratio 27 (6-20) H Glucose Level 196 mg/dL (70-99) H Lactic Acid Level 1.7 mmol/L (0.4-2.0) Calcium Level 7.7 mg/dL (8.5-10.1) L Total Bilirubin 1.2 mg/dL (0.2-1.0) H Aspartate Amino Transferase (AST) 46 U/L (15-37) H Alanine Aminotransferase (ALT) 43 U/L (16-63) Alkaline Phosphatase 86 U/L (46-116) Troponin I Quantitative 0.058 ng/mL (0.000-0.055) Total Protein 5.9 g/dL (6.4-8.2) L Albumin 2.1 g/dL (3.4-5.0) L Albumin/Globulin Ratio 0.6 (1.0-1.7) L Laboratory Tests 09/22/20 09:40 Laboratory Tests 09/22/20 09:40 Vital Signs: Vital Signs Date Time Temp Pulse Resp B/P (MAP) Pulse Ox O2 Delivery O2 Flow Rate FiO2 09/22/20 09:35 100 Ventilator 09/22/20 09:26 96.5 90 16 109/83 (99) 15.0 96.5 EKG: EKG: Sinus rhythm. Rate 85. Left axis deviation. Q waves inferiorly. Minimal ST elevation inferiorly, not diagnostic of STEMI. No ST depressions. [] Radiology/Procedures: Radiology/Procedures: CT head CT chest/abdomen/pelvis [] Impression: [facility] [address] [place] [address] IMAGING REPORT Signed PATIENT: DEMETRICE HOWE ACCOUNT: [id number] : 1950 LOCATION: ER AGE: 70 SEX: M EXAM STATUS: REG ER ORD. PHYSICIAN: FRANCA PETERS MD REASON: ams, NOT READY RN WILL CALL BACK WHEN READY. PROCEDURE: CT HEAD WO CONTRAST Exam performed: CT scan of the head without contrast. Date of Service: 09/22/2020. Comparison: None available. Clinical History: Altered mental status. Technique: Helical acquisitions are obtained from the foramen magnum to the vertex without intravenous administration of contrast. Findings: There is prominence of cortical sulci and ventricular system compatible with age related atrophy. There are areas of low-attenuation in both periventricular deep white matter suggesting small vessel ischemic changes. Normal baker-white differentiation is maintained. There is no extra axial fluid collection, intraparenchymal hemorrhage or mass lesion. There is mucoperiosteal thickening involving bilateral ethmoid air cells consistent with ethmoid sinus disease. The visualized portions of the orbits and the mastoid air cells appear clear. The calvarium is intact. Impression: 1. Age-appropriate atrophy without any acute intracranial process. PQRS Compliance Statement: One or more of the following individualized dose reduction techniques were utilized for this examination: 1. Automated exposure control 2. Adjustment of the mA and/or kV according to patient size 3. Use of iterative reconstruction technique Electronically signed by: Angelita Mcintyre MD (09/22/2020 11:14 AM) [id number] DICTATED and SIGNED BY: ANGELITA MCINTYRE MD DATE: 09/22/[id number] [facility] [address] [place] [address] IMAGING REPORT Signed PATIENT: DEMETRICE HOWE ACCOUNT: [id number] : 1950 LOCATION: ED HOLD AGE: 70 SEX: M EXAM STATUS: ADM IN ORD. PHYSICIAN: FRANCA PETERS MD REASON: obtunded PROCEDURE: CT CHEST ABD PELVIS W/CONTRAST EXAM: CT OF THE CHEST, ABDOMEN AND PELVIS WITH CONTRAST. HISTORY: Altered mental status, obstruction, respiratory failure. TECHNIQUE: Computed tomography of the chest, abdomen and pelvis was performed after the intravenous administration of iodinated contrast. One or more of the following individualized dose reduction techniques were utilized for this examination: 1. Automated exposure control. 2. Adjustment of the mA and/or kV according to patient size. 3. Use of iterative reconstruction technique. COMPARISON: 09/04/2020. FINDINGS: Bone windows reveal no suspicious lesions. There are no pathologically enlarged mediastinal or axillary lymph nodes. There are trace bilateral pleural effusions. There is no pericardial effusion. The heart is not enlarged. There are atherosclerotic calcifications of the coronary arteries. An endotracheal tube has its tip above the henry. A nasogastric tube has its tip within the gastric body. The bladder is decompressed by a Stauffer catheter. There is atelectasis of both lower lobes. There are regions of hypoperfusion within the left lower lobe suggesting superimposed pneumonia. No pulmonary collection is seen. An uncalcified nodule in the right upper lobe measures 5 mm on image 22. Another in the right middle lobe measures 9 mm. Several addition tiny nodules measure <4 mm and are likely benign. A 1.4 cm cyst is suspected medially in the spleen. There is vicarious excretion of contrast in the gallbladder. The liver and pancreas are unremarkable. A 4 mm hypoattenuating nodule in the left adrenal gland may represent a tiny benign adenoma or myelolipoma. There are no pathologically enlarged lymph nodes. An infrarenal abdominal aortic aneurysm measures 4.0 x 3.6 cm. The appendix is not inflamed. There is no small bowel obstruction. The rectum is distended with stool to 7 cm. IMPRESSION: 1. Hypoperfusion within an atelectatic region of the left lower lobe suggests pneumonia. Correlate for evidence of infection. 2. Small bilateral pleural effusions with compressive atelectasis of both lower lobes. 3. Bilateral lung nodules measure up to 9 mm on the right. These are not clearly changed since 02/18/2020. Follow-up is suggested in one year if long-term stability is not artery known. 4. Mild constipation. Correlate for fecal impaction. 5. 4.0 cm infrarenal abdominal aortic aneurysm. Electronically signed by: Zion Obrien MD (09/22/2020 12:58 PM) [id number] DICTATED and SIGNED BY: FRANCA OBRIEN MD DATE: 09/22/20 [id number] Course & Med Decision Making: Course & Med Decision Making Pertinent Labs and Imaging studies reviewed. (See chart for details) Patient 70-year-old male who presents obtunded from a nursing facility. Initially glucose was in the 30s and he was more alert. Mental status only worsen despite treatment of hypoglycemia On arrival GCS is 3. Intubated for airway protection. No evidence of opioid toxidrome, pupils are not miotic. His bowel appeared distended on x-ray, CT abdomen ordered. Due to his respiratory failure CT of the chest was also obtained. I am also very concerned for intracranial hemorrhage given his exquisitely poor neuro exam. CT of the head is obtained. Pulmonology has at the bedside. Hospitalist has been consulted for admission. Propofol has been ordered for sedation. Indication: Respiratory failure Consent: Unable to give consent due to emergent nature. Medications Used: see nursing note Procedure: The patient was placed in the appropriate position. 30 mg of etomidate and 100 mg of rocuronium were administered. Intubation was performed with a S4 glide scope. Grade 1 view visualized. 7.5 endotracheal tube past. Secured with a face nayak. Initial confirmation of placement included bilateral breath sounds, tube fogging, quantitative end-tidal CO2. Adequate chest rise, adequate pulse oximetry reading. A chest x-ray to verify correct placement of the tube showed appropriate tube position. The patient tolerated the procedure well. Complications: none. Dragon Disclaimer: Dragon Disclaimer: This electronic medical record was generated, in whole or in part, using a voice recognition dictation system. Departure Departure Impression: Primary Impression: Obtundation Additional Impressions: Respiratory arrest NSTEMI (non-ST elevated myocardial infarction) Disposition: ADMITTED INPATIENT Admitting Physician: ALEJANDRO FAROOQ) Condition: CRITICAL Referrals: UNKNOWN PCP NAME (PCP) FRANCA PETERS MD Sep 22, 2020 10:46
--- NOTE | 2020-09-22 11:16 | RAD ---
Exam performed: CT scan of the head without contrast. Date of Service: 09/22/2020. Comparison: None available. Clinical History: Altered mental status. Technique: Helical acquisitions are obtained from the foramen magnum to the vertex without intravenou s administration of contrast. Findings: There is prominence of cortical sulci and ventricular system compatible with age related atrophy. The re are areas of low-attenuation in both periventricular deep white matter suggesting small vessel isc hemic changes. Normal baker-white differentiation is maintained. There is no extra axial fluid col lection, intraparenchymal hemorrhage or mass lesion. There is mucoperiosteal thickening involving meliza ateral ethmoid air cells consistent with ethmoid sinus disease. The visualized portions of the orbits and the mastoid air cells appear clear. The calvarium is intact. Impression: 1. Age-appropriate atrophy without any acute intracranial process. PQRS Compliance Statement: One or more of the following individualized dose reduction techniques were utilized for this examinat ion: 1. Automated exposure control 2. Adjustment of the mA and/or kV according to patient size 3. Use of iterative reconstruction technique Electronically signed by: Angelita Mcintyre MD (09/22/2020 11:14 AM) [id number]
--- NOTE | 2020-09-22 11:39 | CONS ---
DATE OF CONSULTATION: 09/22/2020 PULMONARY CONSULTATION ATTENDING PHYSICIAN: Dr. Garcia. REASON FOR CONSULTATION: Respiratory failure, encephalopathy. HISTORY OF PRESENT ILLNESS: The patient is a 70-year-old who is very well known to us from his multiple admissions. He has history of respiratory failure twice and was extubated on both occasions. He has a history of coronary artery disease, history of CVA, history of peripheral vascular disease. The patient was recently discharged to skilled care. He was brought into the hospital after he was obtunded. The patient was unresponsive. His blood glucose level was in the 30s. He was given glucose orally without any improvement. The patient's Vinay coma scale was 6. He was intubated by the ER staff. I have seen the patient in the Emergency Room. Arterial blood gases obtained post-intubation showed a pH of 7.39, pCO2 of 51 and a pO2 of 208 on 100% oxygen. He was noted to have secretions in his mouth. I saw the patient in the Emergency Room. He did not trigger the ventilator. His pupils are nonreactive and he did not have a gag reflex. The patient also had dirty colored urine in his Stauffer catheter. He is scheduled to have CT of the head. I have been asked to see him for further evaluation. PAST MEDICAL HISTORY: Extensive and please review my previous consult. History of COPD, CVA with left-sided weakness, dyslipidemia, hypertension, hiatal hernia, chronic leg edema, obesity, peripheral vascular disease. PAST SURGICAL HISTORY: Umbilical hernia surgery and other surgeries as reported previously. ALLERGIES: Multiple and they were all listed in the MRAD. MEDICATIONS: Given in the ER, reviewed. REVIEW OF SYSTEMS: Unable to obtain from the patient as he is on the mechanical ventilation. PHYSICAL EXAMINATION: VITAL SIGNS: Temperature of 96.5, blood pressure 109 systolic. Pulse ox is 100%. GENERAL: His pupils do not react. He is on assist control mode in the ER. He does not trigger the ventilator. ABDOMEN: Distended. LUNGS: With diminished breath sounds. EXTREMITIES: With bilateral pitting edema. LABORATORY DATA: Reviewed. ABG discussed in my present illness. BUN 27, creatinine 1.0. Troponin 0.058. White cell count 4.1, hemoglobin 9.3. IMPRESSION: 1. Acute on chronic respiratory failure secondary to multifactorial etiologies including hypoglycemic encephalopathy. He also needs to be ruled out for any ischemic as well as hemorrhagic stroke. 2. Possible sepsis. 3. Hypoglycemia. 4. The patient with prior history of cerebrovascular accident with left-sided weakness. 5. Underlying chronic obstructive pulmonary disease. 6. Morbid obesity. 7. Peripheral vascular disease. 8. Abnormal CT chest with bibasilar atelectasis. No significant mucus plugging. Tiny pleural effusion seen. RECOMMENDATIONS: 1. Discussed with RN, RT as well as the ER physician. At this time, I would recommend doing a CT head to rule out any new ischemic event. 2. Continue present assist control mode and make necessary adjustments. 3. Empiric antibiotics. 4. Deep venous thrombosis prophylaxis. 5. The patient does not have any family and there is no one to discuss about advanced directives. 6. We will be following the patient in the ICU. 7. Consider Neurology consultation. The patient may need MRI of the brain. Critical care time 37 minutes including review of the chart, labs, x-rays and decision making. BILL DR: Sylvain TID: [id number]
--- NOTE | 2020-09-22 13:01 | RAD ---
EXAM: CT OF THE CHEST, ABDOMEN AND PELVIS WITH CONTRAST. HISTORY: Altered mental status, obstruction, respiratory failure. TECHNIQUE: Computed tomography of the chest, abdomen and pelvis was performed after the intravenous a dministration of iodinated contrast. One or more of the following individualized dose reduction techn iques were utilized for this examination: 1. Automated exposure control. 2. Adjustment of the mA and/or kV according to patient size. 3. Use of iterative reconstruction technique. COMPARISON: 09/04/2020. FINDINGS: Bone windows reveal no suspicious lesions. There are no pathologically enlarged mediastinal or axillary lymph nodes. There are trace bilateral p leural effusions. There is no pericardial effusion. The heart is not enlarged. There are atherosclero tic calcifications of the coronary arteries. An endotracheal tube has its tip above the henry. A sharon ogastric tube has its tip within the gastric body. The bladder is decompressed by a Stauffer catheter. There is atelectasis of both lower lobes. There are regions of hypoperfusion within the left lower lo be suggesting superimposed pneumonia. No pulmonary collection is seen. An uncalcified nodule in the r ight upper lobe measures 5 mm on image 22. Another in the right middle lobe measures 9 mm. Several ad dition tiny nodules measure <4 mm and are likely benign. A 1.4 cm cyst is suspected medially in the spleen. There is vicarious excretion of contrast in the ga llbladder. The liver and pancreas are unremarkable. A 4 mm hypoattenuating nodule in the left adrenal gland may represent a tiny benign adenoma or myelolipoma. There are no pathologically enlarged lymph nodes. An infrarenal abdominal aortic aneurysm measures 4. 0 x 3.6 cm. The appendix is not inflamed. There is no small bowel obstruction. The rectum is distende d with stool to 7 cm. IMPRESSION: 1. Hypoperfusion within an atelectatic region of the left lower lobe suggests pneumonia. Correlate fo r evidence of infection. 2. Small bilateral pleural effusions with compressive atelectasis of both lower lobes. 3. Bilateral lung nodules measure up to 9 mm on the right. These are not clearly changed since 2020. Follow-up is suggested in one year if long-term stability is not artery known. 4. Mild constipation. Correlate for fecal impaction. 5. 4.0 cm infrarenal abdominal aortic aneurysm. Electronically signed by: Zion Obrien MD (09/22/2020 12:58 PM) [id number]
--- NOTE | 2020-09-22 13:45 | PDOC1 ---
History and Physical Date of Service: DOS: DATE: 09/22/20 TIME: 13:36 Chief Complaint: Chief Complain: Altered mental status. History of Present Illness: HPI: Patient is a 70-year-old male with a recent prolonged hospitalization for STEMI and respiratory failure for which she was treated with arterial thrombolysis for a right leg popliteal artery aneurysm and also had left heart cath with placemen t of a stent in the LAD and RCA comes in today after he was found obtunded at his half-way facility. Apparently according to the nursing facility patient was in his usual state of health and he was conversational but then became altered. His blood glucose was found to be in the 30s. Glucose tabs and glucagon was given in route and his GCS reported at 6. Upon arrival patient's mental status did not improve and he was eventually intubated for airway protection. Of note EMS was bagging the patient through the nasal access. In the ED, patient was placed on a vent and pulmonology was consulted. Patient was also taken to the CT scanner for sanders scanning. Patient was started to wake up on the vent and sedation was ordered. Past Medical/Surgical History: PMH/PSH: Past Medical History: COPD, CVA, Diabetes-Type II, High Cholesterol, Hypertension, hiatal hernia, left sided weakness post cva, chronic leg pain/edema obesity Past Surgical History: UMBILICAL HERNIA SX, recent left heart cath with stenting of the LAD and RCA in September 2020, and arterial thrombolysis of the right popliteal aneurysm in September 2020 Allergies: Allergies: Coded Allergies: heparin (Verified Allergy, Severe, 09/04/20) + HIT 09/04/20 Penicillins (Verified Allergy, Intermediate, PT DOESN'T REMEMBER, 03/21/16) bacitracin (Verified Allergy, Intermediate, 10/25/14) chlorpheniramine (Verified Allergy, Intermediate, 10/25/14) ciprofloxacin (Verified Allergy, Intermediate, 10/25/14) codeine (Verified Allergy, Intermediate, 10/25/14) dextromethorphan (Verified Allergy, Intermediate, 10/25/14) felodipine (Verified Allergy, Intermediate, 02/18/20) Diltiazem ok influenza virus vaccine, specific (Verified Allergy, Intermediate, 10/25/14) neomycin (Verified Allergy, Intermediate, 10/25/14) phenylephrine (Verified Allergy, Intermediate, 10/25/14) polymyxin B (Verified Allergy, Intermediate, 10/25/14) sulfamethoxazole (Verified Allergy, Intermediate, 10/25/14) trimethoprim (Verified Allergy, Intermediate, 10/25/14) Family History: Family History: Reviewed with no relevant findings Social History: Social History: Smoking Status: Current Every Day Smoker Alcohol Use: None Drug Use: None Current Medications: Current Medications Current Medications Fentanyl Citrate 30 ml @ 0 mls/hr CONT PRN IV SEE PROTOCOL; Start 09/22/20 at 09:45 Propofol 100 ml @ 0 mls/hr CONT PRN IV PER PROTOCOL Last administered on 09/22/20at 10:30; Start 09/22/20 at 09:45 Fentanyl Citrate (Fentanyl 2ml Vial) 25 mcg PRN Q1HR PRN IV SEE COMMENTS; Start 09/22/20 at 09:45 Fentanyl Citrate (Fentanyl 2ml Vial) 50 mcg PRN Q1HR PRN IV SEE COMMENTS; Start 09/22/20 at 09:45 Chlorhexidine Gluconate (Peridex) 15 ml BID MM ; Start 09/22/20 at 10:00 Midazolam HCl (Versed) 2 mg 1X ONCE IV ; Start 09/22/20 at 10:30; Stop 09/22/20 at 10:31; Status DC Iohexol (Omnipaque 300 Mg/ml) 75 ml 1X ONCE IV Last administered on 09/22/20at 11:06; Start 09/22/20 at 10:45; Stop 09/22/20 at 10:46; Status DC Info (CONTRAST GIVEN -- Rx MONITORING) 1 each PRN DAILY PRN MC SEE COMMENTS; Start 09/22/20 at 10:45; Stop 09/24/20 at 10:44 Active Scripts Active Amiodarone Hcl 200 Mg Tablet 400 Mg PO DAILY 90 Days [Warfarin Per Pharmacy] 1 EACH Each 1 Each MC PRN DAILY PRN 30 Days Clopidogrel (Clopidogrel Bisulfate) 75 Mg Tablet 75 Mg PO DAILYWBKFT 90 Days Humalog (Insulin Lispro) 100 Unit/1 Ml Insuln.pen 0 Units SQ TIDWMEALS 30 Days Duoneb 0.5-3(2.5) Mg/3 Ml (Albuterol/Ipratropium) 3 Ml Ampul.neb 3 Ml NEB RTQID 30 Days Aspirin 325 Mg Tablet 325 Mg PO DAILYWBKFT 30 Days Metoprolol Tartrate 25 Mg Tablet 25 Mg PO BID 30 Days Montelukast Sodium Tablet (Montelukast Sodium) 10 Mg Tablet 10 Mg PO QHS Gabapentin 600 Mg Tablet 600 Mg PO BID 30 Days Reported Glimepiride 4 Mg Tablet 1 Tab PO DAILY Furosemide 40 Mg Tablet 1 Tab PO BID Symbicort 160-4.5 Mcg Inhaler (Budesonide/Formoterol Fumarate) 10.2 Gm Hfa.aer.ad 1 Puff INH DAILY Losartan-Hctz 100-12.5 Mg Tab (Losartan/Hydrochlorothiazide) 1 Each Tablet 1 Tab PO DAILY Nitrofurantoin Glades-Mcr 100 Mg (Nitrofurantoin Monohyd/M-Cryst) 100 Mg Capsule 1 Cap PO BID Betamethasone Valerate 60 Ml Lotion 1 TP QHS Atorvastatin Calcium 40 Mg Tablet 1 Tab PO DAILY Diltiazem 24Hr Cd (Diltiazem HCl) 240 Mg Cap.er.24h 1 Cap PO DAILY Nystop (Nystatin) 60 Gm Powder 1 Sudheer TP BID Pepcid (Famotidine) 20 Mg Tablet 20 Mg PO BID ROS: Review of Systems Review of System Unable to obtain due to intubation and sedation Physical Exam: Vital Signs: Vital Signs Date Time Temp Pulse Resp B/P (MAP) Pulse Ox O2 Delivery O2 Flow Rate FiO2 09/22/20 11:03 100 Ventilator 09/22/20 09:26 96.5 90 16 109/83 (99) 15.0 96.5 Physcial Exam: General: Intubated and sedated HEENT: Pupils equally round and reactive to light, EOMI, no discharge, normal conjunctiva Neck: Supple, no nuchal rigidity, no JVD, trachea midline, no tenderness Cardiac: RRR, no murmurs, no gallops, no rubs Chest/Lungs: CTAB, no wheeze, no rhonchi, no crackles Abdomen: Obese, soft, distended, no guarding, no peritoneal signs, non-tender Back: No tenderness Extremities: No pedal edema. Bilateral lower extremities were warm Neuro: Intubated and sedated Labs: Labs: Laboratory Tests Test 09/22/20 09:40 White Blood Count 4.1 x10^3/uL (4.0-11.0) Red Blood Count 2.93 x10^6/uL (4.30-5.70) Hemoglobin 9.3 g/dL (13.0-17.5) Hematocrit 27.6 % (39.0-53.0) Mean Corpuscular Volume 94 fL (79-100) Mean Corpuscular Hemoglobin 32 pg (25-35) Mean Corpuscular Hemoglobin Concent 34 g/dL (31-37) Red Cell Distribution Width 18.5 % (11.5-14.5) Platelet Count 235 x10^3/uL (140-400) Neutrophils (%) (Auto) 74 % (31-73) Lymphocytes (%) (Auto) 19 % (24-48) Monocytes (%) (Auto) 7 % (0-9) Eosinophils (%) (Auto) 0 % (0-3) Basophils (%) (Auto) 0 % (0-3) Neutrophils # (Auto) 3.0 x10^3/uL (1.8-7.7) Lymphocytes # (Auto) 0.8 x10^3/uL (1.0-4.8) Monocytes # (Auto) 0.3 x10^3/uL (0.0-1.1) Eosinophils # (Auto) 0.0 x10^3/uL (0.0-0.7) Basophils # (Auto) 0.0 x10^3/uL (0.0-0.2) O2 Saturation 99 % (92-99) Arterial Blood pH 7.39 (7.35-7.45) Arterial Blood pCO2 at Patient Temp 51 mmHg (35-46) Arterial Blood pO2 at Patient Temp 208 mmHg (65-108) Arterial Blood HCO3 31 mmol/L (21-28) Arterial Blood Base Excess 5 mmol/L (-3-3) Oxyhemoglobin 98.0 % Methemoglobin 0.5 % (0.0-1.9) Carbon Monoxide, Quantitative 0.3 % (0.0-1.9) FiO2 100/vent Sodium Level 143 mmol/L (136-145) Potassium Level 3.1 mmol/L (3.5-5.1) Chloride Level 103 mmol/L (98-107) Carbon Dioxide Level 32 mmol/L (21-32) Anion Gap 8 (6-14) Blood Urea Nitrogen 27 mg/dL (8-26) Creatinine 1.0 mg/dL (0.7-1.3) Estimated GFR (Cockcroft-Gault) 73.5 BUN/Creatinine Ratio 27 (6-20) Glucose Level 196 mg/dL (70-99) Lactic Acid Level 1.7 mmol/L (0.4-2.0) Calcium Level 7.7 mg/dL (8.5-10.1) Total Bilirubin 1.2 mg/dL (0.2-1.0) Aspartate Amino Transf (AST/SGOT) 46 U/L (15-37) Alanine Aminotransferase (ALT/SGPT) 43 U/L (16-63) Alkaline Phosphatase 86 U/L (46-116) Troponin I Quantitative 0.058 ng/mL (0.000-0.055) Total Protein 5.9 g/dL (6.4-8.2) Albumin 2.1 g/dL (3.4-5.0) Albumin/Globulin Ratio 0.6 (1.0-1.7) Laboratory Tests Test 09/22/20 09:40 White Blood Count 4.1 x10^3/uL (4.0-11.0) Red Blood Count 2.93 x10^6/uL (4.30-5.70) Hemoglobin 9.3 g/dL (13.0-17.5) Hematocrit 27.6 % (39.0-53.0) Mean Corpuscular Volume 94 fL (79-100) Mean Corpuscular Hemoglobin 32 pg (25-35) Mean Corpuscular Hemoglobin Concent 34 g/dL (31-37) Red Cell Distribution Width 18.5 % (11.5-14.5) Platelet Count 235 x10^3/uL (140-400) Neutrophils (%) (Auto) 74 % (31-73) Lymphocytes (%) (Auto) 19 % (24-48) Monocytes (%) (Auto) 7 % (0-9) Eosinophils (%) (Auto) 0 % (0-3) Basophils (%) (Auto) 0 % (0-3) Neutrophils # (Auto) 3.0 x10^3/uL (1.8-7.7) Lymphocytes # (Auto) 0.8 x10^3/uL (1.0-4.8) Monocytes # (Auto) 0.3 x10^3/uL (0.0-1.1) Eosinophils # (Auto) 0.0 x10^3/uL (0.0-0.7) Basophils # (Auto) 0.0 x10^3/uL (0.0-0.2) O2 Saturation 99 % (92-99) Arterial Blood pH 7.39 (7.35-7.45) Arterial Blood pCO2 at Patient Temp 51 mmHg (35-46) Arterial Blood pO2 at Patient Temp 208 mmHg (65-108) Arterial Blood HCO3 31 mmol/L (21-28) Arterial Blood Base Excess 5 mmol/L (-3-3) Oxyhemoglobin 98.0 % Methemoglobin 0.5 % (0.0-1.9) Carbon Monoxide, Quantitative 0.3 % (0.0-1.9) FiO2 100/vent Sodium Level 143 mmol/L (136-145) Potassium Level 3.1 mmol/L (3.5-5.1) Chloride Level 103 mmol/L (98-107) Carbon Dioxide Level 32 mmol/L (21-32) Anion Gap 8 (6-14) Blood Urea Nitrogen 27 mg/dL (8-26) Creatinine 1.0 mg/dL (0.7-1.3) Estimated GFR (Cockcroft-Gault) 73.5 BUN/Creatinine Ratio 27 (6-20) Glucose Level 196 mg/dL (70-99) Lactic Acid Level 1.7 mmol/L (0.4-2.0) Calcium Level 7.7 mg/dL (8.5-10.1) Total Bilirubin 1.2 mg/dL (0.2-1.0) Aspartate Amino Transf (AST/SGOT) 46 U/L (15-37) Alanine Aminotransferase (ALT/SGPT) 43 U/L (16-63) Alkaline Phosphatase 86 U/L (46-116) Troponin I Quantitative 0.058 ng/mL (0.000-0.055) Total Protein 5.9 g/dL (6.4-8.2) Albumin 2.1 g/dL (3.4-5.0) Albumin/Globulin Ratio 0.6 (1.0-1.7) Images: Images PROCEDURE: CT CHEST ABD PELVIS W/CONTRAST EXAM: CT OF THE CHEST, ABDOMEN AND PELVIS WITH CONTRAST. HISTORY: Altered mental status, obstruction, respiratory failure. TECHNIQUE: Computed tomography of the chest, abdomen and pelvis was performed after the intravenous administration of iodinated contrast. One or more of the following individualized dose reduction techniques were utilized for this examination: 1. Automated exposure control. 2. Adjustment of the mA and/or kV according to patient size. 3. Use of iterative reconstruction technique. COMPARISON: 09/04/2020. FINDINGS: Bone windows reveal no suspicious lesions. There are no pathologically enlarged mediastinal or axillary lymph nodes. There are trace bilateral pleural effusions. There is no pericardial effusion. The heart is not enlarged. There are atherosclerotic calcifications of the coronary arteries. An endotracheal tube has its tip above the henry. A nasogastric tube has its tip within the gastric body. The bladder is decompressed by a Stauffer catheter. There is atelectasis of both lower lobes. There are regions of hypoperfusion within the left lower lobe suggesting superimposed pneumonia. No pulmonary collection is seen. An uncalcified nodule in the right upper lobe measures 5 mm on image 22. Another in the right middle lobe measures 9 mm. Several addition tiny nodules measure <4 mm and are likely benign. A 1.4 cm cyst is suspected medially in the spleen. There is vicarious excretion of contrast in the gallbladder. The liver and pancreas are unremarkable. A 4 mm hypoattenuating nodule in the left adrenal gland may represent a tiny benign adenoma or myelolipoma. There are no pathologically enlarged lymph nodes. An infrarenal abdominal aortic aneurysm measures 4.0 x 3.6 cm. The appendix is not inflamed. There is no small bowel obstruction. The rectum is distended with stool to 7 cm. IMPRESSION: 1. Hypoperfusion within an atelectatic region of the left lower lobe suggests pn eumonia. Correlate for evidence of infection. 2. Small bilateral pleural effusions with compressive atelectasis of both lower lobes. 3. Bilateral lung nodules measure up to 9 mm on the right. These are not clearly changed since 02/18/2020. Follow-up is suggested in one year if long-term stability is not artery known. 4. Mild constipation. Correlate for fecal impaction. 5. 4.0 cm infrarenal abdominal aortic aneurysm. Negative head CT Assessment/Plan Assessment/Plan Acute metabolic, infectious encephalopathy Acute respiratory failure Healthcare associated pneumonia, possible aspiration, possible gram-negative organisms Acute hypoglycemia Hypokalemia Elevated troponins concerning for type II demand ischemia Severe protein malnutrition Morbid obesity AAA, 4 cm History of diabetes mellitus type 2 History of dyslipidemia history of hypertension History of recent STEMI History of CAD with recent stent placement Admit to ICU for further management Hypoglycemia protocol Continue empiric IV antibiotics with concern for aspiration pneumonia Pulmonology consult for vent management IV electrolyte replacement as needed Consider cardiology consult if troponins increase Lovenox for DVT prophylaxis Protonix while on the vent GI prophylaxis N.p.o. Full code Discussed with RN and SW Disposition inpatient management as above Surrogate decision maker is undesignated A total of 45 minutes of critical care time was spent in reviewing chart, labs, and images. Discussed with RN and SW. Justifications for Admission Other Justification FUAD CUTLER MD Sep 22, 2020 13:45
[2020-09-22] MEDS: IV DEXTROSE 5 %-0.45 % NACL 1,000 ML IV SCH (14:00)
[2020-09-22] MEDS ORDERED: DOCUSATE SODIUM 100 MG CAPSULE. PO PRN (14:00)
[2020-09-22] MEDS ORDERED: DEXTROSE 50% 25 GM / 50ML DISP.SYRIN. IV PRN (14:00)
[2020-09-22] MEDS ORDERED: ONDANSETRON PF 4 MG/2 ML VIAL. IVP PRN (14:00)
[2020-09-22] MEDS ORDERED: PROCHLORPERAZINE 10 MG/2 ML VIAL. IV PRN (14:00)
[2020-09-22] MEDS ORDERED: ENOXAPARIN 40 MG/0.4 ML SYRINGE. SQ SCH (14:00)
[2020-09-22] MEDS ORDERED: SENNOSIDES 8.6 MG TABLET PO PRN (14:00)
[2020-09-22] MEDS ORDERED: ACETAMINOPHEN 325 MG TABLET. PO PRN (14:00)
[2020-09-22 14:33] LABS: PROTHROMBIN TIME PATIENT 18.3 SEC (11.7-14.0)
[2020-09-22] MEDS: POTASSIUM CHLORIDE 10MEQ 100 ML IV SCH ×4 (15:00→20:27)
[2020-09-22] MEDS: CEFEPIME HCL IV Push 1 GM VIAL. IVP SCH ×2 (15:45→22:50)
--- NOTE | 2020-09-22 17:00 | NUR ---
Patient admitted from ED at 1645 on ventilator. Patients map <65, Levo started. Wounds pictured and placed in the chart. K is in the process of being replaced. Will monitor.
[2020-09-22] MEDS: INSULIN LISPRO 300 UNITS/3 ML VIAL. SQ SCH ×2 (17:46→23:36)
[2020-09-22] MEDS ORDERED: ETOMIDATE 20 MG/10 ML VIAL. IV ONE (17:46)
[2020-09-22] MEDS ORDERED: ROCURONIUM 50 MG/5 ML VIAL. ONE (17:46)
[2020-09-22] MEDS: NOREPINEPHRINE VIAL 8 MG in IV DEXTROSE 5% 250 ML IV PRN (18:14)
[2020-09-23] VITALS (24 sets, daily range): BP systolic 82–140; BP diastolic 48–69
--- NOTE | 2020-09-23 02:08 | EKG ---
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
[2020-09-23 05:17] LABS: BASO % 0 % (0-3); EOS % 0 % (0-3); HEMATOCRIT 29.4 % (39.0-53.0); HEMOGLOBIN 9.8 g/dL (13.0-17.5); LYMPH # 2.3 x10^3/uL (1.0-4.8); LYMPH % 31 % (24-48); MEAN CORPUSCULAR HEMOGLOBIN 31 pg (25-35); MEAN CORPUSCULAR HGB CONC 33 g/dL (31-37); MEAN CORPUSCULAR VOLUME 94 fL (79-100); MONO # 0.4 x10^3/uL (0.0-1.1); MONO % 6 % (0-9); NEUT # 4.5 x10^3/uL (1.8-7.7); NEUT % 62 % (31-73); PLATELET COUNT 287 x10^3/uL (140-400); RED BLOOD COUNT 3.13 x10^6/uL (4.30-5.70); RED CELL DISTRIBUTION WIDTH 18.8 % (11.5-14.5); WHITE BLOOD COUNT 7.2 x10^3/uL (4.0-11.0)
[2020-09-23 05:28] LABS: CALCIUM 8.3 mg/dL (8.5-10.1); CREATININE 1.2 mg/dL (0.7-1.3); GFR 59.5; MAGNESIUM 1.9 mg/dL (1.8-2.4); PHOSPHORUS 2.9 mg/dL (2.6-4.7)
[2020-09-23 05:30] LABS: POTASSIUM 2.8 mmol/L (3.5-5.1)
[2020-09-23] MEDS: NOREPINEPHRINE VIAL 8 MG in IV DEXTROSE 5% 250 ML IV PRN (05:51)
[2020-09-23] MEDS: INSULIN LISPRO 300 UNITS/3 ML VIAL. SQ SCH ×3 (06:00→17:03)
[2020-09-23] MEDS: CEFEPIME HCL IV Push 1 GM VIAL. IVP SCH ×3 (06:04→13:08)
[2020-09-23] MEDS: POTASSIUM CHLORIDE 10MEQ 100 ML IV SCH ×7 (06:29→14:30)
[2020-09-23 08:58] LABS: BASE EXCESS ABG 8 mmol/L (-3-3); HCO3 ABG 31 mmol/L (21-28); PCO2 ABG 37 mmHg (35-46); PO2 ABG 77 mmHg (65-108); SAT O2 ABG 95 % (92-99)
[2020-09-23 09:31] LABS: FIO2 ABG 60% VENT
[2020-09-23] MEDS: PANTOPRAZOLE IV PUSH 40 MG VIAL. IVP SCH (09:54)
--- NOTE | 2020-09-23 10:03 | PDOC ---
PULMONARY PROGRESS NOTES DATE: 09/23/20 TIME: 10:00 Subjective Remains on assist control mode. Off sedation but not responsive. Vitals Vital Signs Date Time Temp Pulse Resp B/P (MAP) Pulse Ox O2 Delivery O2 Flow Rate FiO2 09/23/20 09:35 Ventilator 09/23/20 07:52 97 09/23/20 07:00 108 16 97/64 (75) 09/23/20 04:00 99.9 99.9 09/22/20 09:26 15.0 Comments Assist control mode. Lungs: Clear Cardiovascular: S1, S2 Abdomen: Soft, Non-tender, Other (Obese) Extremities: Other (1+ edema) Labs Laboratory Tests Test 09/22/20 09:40 09/22/20 10:40 09/22/20 17:42 09/22/20 18:00 White Blood Count 4.1 x10^3/uL (4.0-11.0) Red Blood Count 2.93 x10^6/uL (4.30-5.70) Hemoglobin 9.3 g/dL (13.0-17.5) Hematocrit 27.6 % (39.0-53.0) Mean Corpuscular Volume 94 fL (79-100) Mean Corpuscular Hemoglobin 32 pg (25-35) Mean Corpuscular Hemoglobin Concent 34 g/dL (31-37) Red Cell Distribution Width 18.5 % (11.5-14.5) Platelet Count 235 x10^3/uL (140-400) Neutrophils (%) (Auto) 74 % (31-73) Lymphocytes (%) (Auto) 19 % (24-48) Monocytes (%) (Auto) 7 % (0-9) Eosinophils (%) (Auto) 0 % (0-3) Basophils (%) (Auto) 0 % (0-3) Neutrophils # (Auto) 3.0 x10^3/uL (1.8-7.7) Lymphocytes # (Auto) 0.8 x10^3/uL (1.0-4.8) Monocytes # (Auto) 0.3 x10^3/uL (0.0-1.1) Eosinophils # (Auto) 0.0 x10^3/uL (0.0-0.7) Basophils # (Auto) 0.0 x10^3/uL (0.0-0.2) Prothrombin Time 18.3 SEC (11.7-14.0) Prothromb Time International Ratio 1.5 (0.8-1.1) O2 Saturation 99 % (92-99) Arterial Blood pH 7.39 (7.35-7.45) Arterial Blood pCO2 at Patient Temp 51 mmHg (35-46) Arterial Blood pO2 at Patient Temp 208 mmHg (65-108) Arterial Blood HCO3 31 mmol/L (21-28) Arterial Blood Base Excess 5 mmol/L (-3-3) Oxyhemoglobin 98.0 % Methemoglobin 0.5 % (0.0-1.9) Carbon Monoxide, Quantitative 0.3 % (0.0-1.9) FiO2 100/vent Sodium Level 143 mmol/L (136-145) Potassium Level 3.1 mmol/L (3.5-5.1) Chloride Level 103 mmol/L (98-107) Carbon Dioxide Level 32 mmol/L (21-32) Anion Gap 8 (6-14) Blood Urea Nitrogen 27 mg/dL (8-26) Creatinine 1.0 mg/dL (0.7-1.3) Estimated GFR (Cockcroft-Gault) 73.5 BUN/Creatinine Ratio 27 (6-20) Glucose Level 196 mg/dL (70-99) Lactic Acid Level 1.7 mmol/L (0.4-2.0) Calcium Level 7.7 mg/dL (8.5-10.1) Total Bilirubin 1.2 mg/dL (0.2-1.0) Aspartate Amino Transf (AST/SGOT) 46 U/L (15-37) Alanine Aminotransferase (ALT/SGPT) 43 U/L (16-63) Alkaline Phosphatase 86 U/L (46-116) Troponin I Quantitative 0.058 ng/mL (0.000-0.055) Total Protein 5.9 g/dL (6.4-8.2) Albumin 2.1 g/dL (3.4-5.0) Albumin/Globulin Ratio 0.6 (1.0-1.7) SARS-CoV-2 RNA (MARIANELA) Negative (Negative) SARS-CoV-2 Antigen (Rapid) Negative (NEGATIVE) Glucose (Fingerstick) 29 mg/dL (70-99) 82 mg/dL (70-99) Test 09/22/20 23:35 09/23/20 04:45 09/23/20 06:03 09/23/20 08:00 Glucose (Fingerstick) 104 mg/dL (70-99) 182 mg/dL (70-99) White Blood Count 7.2 x10^3/uL (4.0-11.0) Red Blood Count 3.13 x10^6/uL (4.30-5.70) Hemoglobin 9.8 g/dL (13.0-17.5) Hematocrit 29.4 % (39.0-53.0) Mean Corpuscular Volume 94 fL (79-100) Mean Corpuscular Hemoglobin 31 pg (25-35) Mean Corpuscular Hemoglobin Concent 33 g/dL (31-37) Red Cell Distribution Width 18.8 % (11.5-14.5) Platelet Count 287 x10^3/uL (140-400) Neutrophils (%) (Auto) 62 % (31-73) Lymphocytes (%) (Auto) 31 % (24-48) Monocytes (%) (Auto) 6 % (0-9) Eosinophils (%) (Auto) 0 % (0-3) Basophils (%) (Auto) 0 % (0-3) Neutrophils # (Auto) 4.5 x10^3/uL (1.8-7.7) Lymphocytes # (Auto) 2.3 x10^3/uL (1.0-4.8) Monocytes # (Auto) 0.4 x10^3/uL (0.0-1.1) Eosinophils # (Auto) 0.0 x10^3/uL (0.0-0.7) Basophils # (Auto) 0.0 x10^3/uL (0.0-0.2) Sodium Level 141 mmol/L (136-145) Potassium Level 2.8 mmol/L (3.5-5.1) Chloride Level 102 mmol/L (98-107) Carbon Dioxide Level 35 mmol/L (21-32) Anion Gap 4 (6-14) Blood Urea Nitrogen 31 mg/dL (8-26) Creatinine 1.2 mg/dL (0.7-1.3) Estimated GFR (Cockcroft-Gault) 59.5 Glucose Level 178 mg/dL (70-99) Calcium Level 8.3 mg/dL (8.5-10.1) Phosphorus Level 2.9 mg/dL (2.6-4.7) Magnesium Level 1.9 mg/dL (1.8-2.4) O2 Saturation 95 % (92-99) Arterial Blood pH 7.54 (7.35-7.45) Arterial Blood pCO2 at Patient Temp 37 mmHg (35-46) Arterial Blood pO2 at Patient Temp 77 mmHg (65-108) Arterial Blood HCO3 31 mmol/L (21-28) Arterial Blood Base Excess 8 mmol/L (-3-3) FiO2 60% vent Laboratory Tests Test 09/22/20 10:40 09/22/20 17:42 09/22/20 18:00 09/22/20 23:35 SARS-CoV-2 RNA (MARIANELA) Negative (Negative) SARS-CoV-2 Antigen (Rapid) Negative (NEGATIVE) Glucose (Fingerstick) 29 mg/dL (70-99) 82 mg/dL (70-99) 104 mg/dL (70-99) Test 09/23/20 04:45 09/23/20 06:03 09/23/20 08:00 White Blood Count 7.2 x10^3/uL (4.0-11.0) Red Blood Count 3.13 x10^6/uL (4.30-5.70) Hemoglobin 9.8 g/dL (13.0-17.5) Hematocrit 29.4 % (39.0-53.0) Mean Corpuscular Volume 94 fL (79-100) Mean Corpuscular Hemoglobin 31 pg (25-35) Mean Corpuscular Hemoglobin Concent 33 g/dL (31-37) Red Cell Distribution Width 18.8 % (11.5-14.5) Platelet Count 287 x10^3/uL (140-400) Neutrophils (%) (Auto) 62 % (31-73) Lymphocytes (%) (Auto) 31 % (24-48) Monocytes (%) (Auto) 6 % (0-9) Eosinophils (%) (Auto) 0 % (0-3) Basophils (%) (Auto) 0 % (0-3) Neutrophils # (Auto) 4.5 x10^3/uL (1.8-7.7) Lymphocytes # (Auto) 2.3 x10^3/uL (1.0-4.8) Monocytes # (Auto) 0.4 x10^3/uL (0.0-1.1) Eosinophils # (Auto) 0.0 x10^3/uL (0.0-0.7) Basophils # (Auto) 0.0 x10^3/uL (0.0-0.2) Sodium Level 141 mmol/L (136-145) Potassium Level 2.8 mmol/L (3.5-5.1) Chloride Level 102 mmol/L (98-107) Carbon Dioxide Level 35 mmol/L (21-32) Anion Gap 4 (6-14) Blood Urea Nitrogen 31 mg/dL (8-26) Creatinine 1.2 mg/dL (0.7-1.3) Estimated GFR (Cockcroft-Gault) 59.5 Glucose Level 178 mg/dL (70-99) Calcium Level 8.3 mg/dL (8.5-10.1) Phosphorus Level 2.9 mg/dL (2.6-4.7) Magnesium Level 1.9 mg/dL (1.8-2.4) Glucose (Fingerstick) 182 mg/dL (70-99) O2 Saturation 95 % (92-99) Arterial Blood pH 7.54 (7.35-7.45) Arterial Blood pCO2 at Patient Temp 37 mmHg (35-46) Arterial Blood pO2 at Patient Temp 77 mmHg (65-108) Arterial Blood HCO3 31 mmol/L (21-28) Arterial Blood Base Excess 8 mmol/L (-3-3) FiO2 60% vent Medications Active Scripts Medications Dose Route/Sig Max Daily Dose Days Date Category Amiodarone Hcl 200 Mg Tablet 400 Mg PO DAILY 09/18/20 Rx [Warfarin Per Pharmacy] 1 EACH Each 1 Each MC PRN DAILY PRN 30 09/18/20 Rx Clopidogrel (Clopidogrel Bisulfate) 75 Mg Tablet 75 Mg PO DAILYWBKFT 09/18/20 Rx Glimepiride 4 Mg Tablet 1 Tab PO DAILY 09/13/20 Reported Furosemide 40 Mg Tablet 1 Tab PO BID 09/13/20 Reported Symbicort 160-4.5 Mcg Inhaler (Budesonide/Formoterol Fumarate) 10.2 Gm Hfa.aer.ad 1 Puff INH DAILY 09/13/20 Reported Losartan-Hctz 100-12.5 Mg Tab (Losartan/Hydrochlorothiazide) 1 Each Tablet 1 Tab PO DAILY 09/13/20 Reported Nitrofurantoin Pondera-Mcr 100 Mg (Nitrofurantoin Monohyd/M-Cryst) 100 Mg Capsule 1 Cap PO BID 09/13/20 Reported Betamethasone Valerate 60 Ml Lotion 1 TP QHS 09/13/20 Reported Atorvastatin Calcium 40 Mg Tablet 1 Tab PO DAILY 09/13/20 Reported Diltiazem 24Hr Cd (Diltiazem HCl) 240 Mg Cap.er.24h 1 Cap PO DAILY 09/13/20 Reported Nystop (Nystatin) 60 Gm Powder 1 Sudheer TP BID 09/13/20 Reported Humalog (Insulin Lispro) 100 Unit/1 Ml Insuln.pen 0 Units SQ TIDWMEALS 08/06/18 Rx Duoneb 0.5-3(2.5) Mg/3 Ml (Albuterol/Ipratropium) 3 Ml Ampul.neb 3 Ml NEB RTQID 08/06/18 Rx Aspirin 325 Mg Tablet 325 Mg PO DAILYWBKFT 30 07/22/17 Rx Metoprolol Tartrate 25 Mg Tablet 25 Mg PO BID 30 07/22/17 Rx Montelukast Sodium Tablet (Montelukast Sodium) 10 Mg Tablet 10 Mg PO QHS 07/22/17 Rx Gabapentin 600 Mg Tablet 600 Mg PO BID 30 07/22/17 Rx Pepcid (Famotidine) 20 Mg Tablet 20 Mg PO BID 05/17/13 Reported Impression . 1. Acute on chronic respiratory failure secondary to multifactorial etiologies including hypoglycemic encephalopathy. He also needs to be ruled out for any ischemic stroke. 2. Possible sepsis. 3. Hypoglycemia. 4. The patient with prior history of cerebrovascular accident with left-sided weakness. 5. Underlying chronic obstructive pulmonary disease. 6. Morbid obesity. 7. Peripheral vascular disease. 8. Abnormal CT chest with bibasilar atelectasis. No significant mucus plugging. Tiny pleural effusion seen. Plan . 1. Remains unresponsive despite off sedation. Cannot exclude ischemic stroke. Neurology is consulted. 2. Continue present assist control mode and make necessary adjustments. 3. Empiric antibiotics. 4. Deep venous thrombosis prophylaxis. 5. The patient does not have any family and there is no one to discuss about advanced directives. 6. We will be following the patient in the ICU. 7. Would recommend MRI of the head to rule out any ischemic stroke. Critical care time 30 minutes including review of the chart, labs, x-rays and decision making. Patient has no DPOA. Will discuss with other physicians regarding his prognosis and consideration of DNR order. CLINTON PALAFOX MD Sep 23, 2020 10:03
[2020-09-23] MEDS: IV DEXTROSE 5 %-0.45 % NACL 1,000 ML IV SCH (10:08)
--- NOTE | 2020-09-23 11:51 | PDOC ---
[facility] PROGRESS NOTE Date of Service DOS: DATE: 09/23/20 TIME: 11:48 History of Present Illness History of Present Illness Patient is a 70-year-old male with a recent prolonged hospitalization for STEMI and respiratory failure for which she was treated with arterial thrombolysis for a right leg popliteal artery aneurysm and also had left heart cath with placement of a stent in the LAD and RCA comes in today after he was found obtunded at his [facility] facility. Apparently according to the nursing facility patient was in his usual state of health and he was conversational but then became altered. His blood glucose was found to be in the 30s. Glucose tabs and glucagon was given in route and his GCS reported at 6. Upon arrival patient's mental status did not improve and he was eventually intubated for airway protection. Of note EMS was bagging the patient through the nasal access. In the ED, patient was placed on a vent and pulmonology was consulted. Patient was also taken to the CT scanner for sanders scanning. Patient was started to wake up on the vent and sedation was ordered. 09/23/20 Patient examined at bedside. Intubated. Not on any sedation but unresponsive. Neurology consult in place. Vitals/I&O Vitals/I&O: Vital Signs Date Time Temp Pulse Resp B/P (MAP) Pulse Ox O2 Delivery O2 Flow Rate FiO2 09/23/20 09:35 Ventilator 09/23/20 07:52 97 09/23/20 07:00 108 16 97/64 (75) 09/23/20 04:00 99.9 99.9 09/22/20 09:26 15.0 I & O 09/22/20 09/22/20 09/23/20 15:00 23:00 07:00 Intake Total 1410 ml Output Total 175 ml 250 ml Balance -175 ml 1160 ml Physical Exam General: Other (Intubated, nonresponsive) Heart: Regular rate, Normal S1, Normal S2 Lungs: Other (Intubated) Abdomen: Normal bowel sounds, Soft Extremities: No clubbing, No edema, Normal pulses Skin: No rashes, No significant lesion Labs Labs: Laboratory Tests Test 09/22/20 17:42 09/22/20 18:00 09/22/20 23:35 09/23/20 04:45 Glucose (Fingerstick) 29 mg/dL (70-99) 82 mg/dL (70-99) 104 mg/dL (70-99) White Blood Count 7.2 x10^3/uL (4.0-11.0) Red Blood Count 3.13 x10^6/uL (4.30-5.70) Hemoglobin 9.8 g/dL (13.0-17.5) Hematocrit 29.4 % (39.0-53.0) Mean Corpuscular Volume 94 fL (79-100) Mean Corpuscular Hemoglobin 31 pg (25-35) Mean Corpuscular Hemoglobin Concent 33 g/dL (31-37) Red Cell Distribution Width 18.8 % (11.5-14.5) Platelet Count 287 x10^3/uL (140-400) Neutrophils (%) (Auto) 62 % (31-73) Lymphocytes (%) (Auto) 31 % (24-48) Monocytes (%) (Auto) 6 % (0-9) Eosinophils (%) (Auto) 0 % (0-3) Basophils (%) (Auto) 0 % (0-3) Neutrophils # (Auto) 4.5 x10^3/uL (1.8-7.7) Lymphocytes # (Auto) 2.3 x10^3/uL (1.0-4.8) Monocytes # (Auto) 0.4 x10^3/uL (0.0-1.1) Eosinophils # (Auto) 0.0 x10^3/uL (0.0-0.7) Basophils # (Auto) 0.0 x10^3/uL (0.0-0.2) Sodium Level 141 mmol/L (136-145) Potassium Level 2.8 mmol/L (3.5-5.1) Chloride Level 102 mmol/L (98-107) Carbon Dioxide Level 35 mmol/L (21-32) Anion Gap 4 (6-14) Blood Urea Nitrogen 31 mg/dL (8-26) Creatinine 1.2 mg/dL (0.7-1.3) Estimated GFR (Cockcroft-Gault) 59.5 Glucose Level 178 mg/dL (70-99) Calcium Level 8.3 mg/dL (8.5-10.1) Phosphorus Level 2.9 mg/dL (2.6-4.7) Magnesium Level 1.9 mg/dL (1.8-2.4) Test 09/23/20 06:03 09/23/20 08:00 Glucose (Fingerstick) 182 mg/dL (70-99) O2 Saturation 95 % (92-99) Arterial Blood pH 7.54 (7.35-7.45) Arterial Blood pCO2 at Patient Temp 37 mmHg (35-46) Arterial Blood pO2 at Patient Temp 77 mmHg (65-108) Arterial Blood HCO3 31 mmol/L (21-28) Arterial Blood Base Excess 8 mmol/L (-3-3) FiO2 60% vent Review of Systems Review of Systems: Cannot obtain Assessment and Plan Assessmemt and Plan Problems Medical Problems: (1) NSTEMI (non-ST elevated myocardial infarction) Status: Acute (2) Obtundation Status: Acute (3) Respiratory arrest Status: Acute Acute metabolic, infectious encephalopathy Acute respiratory failure Healthcare associated pneumonia, possible aspiration, possible gram-negative organisms Acute hypoglycemia Hypokalemia Elevated troponins concerning for type II demand ischemia Severe protein malnutrition Morbid obesity AAA, 4 cm History of diabetes mellitus type 2 History of dyslipidemia history of hypertension History of recent STEMI History of CAD with recent stent placement Admit to ICU for further management Hypoglycemia protocol Continue empiric IV antibiotics with concern for aspiration pneumonia Pulmonology consult for vent management Neurology consulted for worsening neuro status IV electrolyte replacement as needed Consider cardiology consult if troponins increase Lovenox for DVT prophylaxis Protonix while on the vent GI prophylaxis N.p.o. Full code Discussed with RN and SW Disposition inpatient management as above Surrogate decision maker is undesignated Comment Review of Relevant I have reviewed the following items deinse (where applicable) has been applied. Medications: Current Medications Medications (Trade) Dose Ordered Sig/Dru Route PRN Reason Start Time Stop Time Status Last Admin Dose Admin Potassium Chloride/Water 100 ml @ 100 mls/hr Q1H IV 09/22/20 15:00 09/22/20 18:59 DC 09/22/20 20:27 Cefepime HCl (Maxipime) 1 gm Q8HRS IVP 09/22/20 14:00 09/23/20 06:04 Dextrose (Dextrose 50%-Water Syringe) 12.5 gm PRN Q15MIN PRN IV SEE COMMENTS 09/22/20 14:00 09/22/20 17:47 Dextrose/Sodium Chloride 1,000 ml @ 50 mls/hr Q20H IV 09/22/20 14:00 09/23/20 10:08 Acetaminophen (Tylenol) 650 mg PRN Q4HRS PRN PO TEMP OVER 100.4F OR MILD PAIN 09/22/20 14:00 09/23/20 00:20 Pantoprazole Sodium (PROTONIX VIAL for IV PUSH) 40 mg DAILY IVP 09/23/20 09:00 09/23/20 09:54 Norepinephrine Bitartrate 8 mg/ Dextrose 258 ml @ 21.769 mls/ hr CONT PRN IV PER PROTOCOL 09/22/20 18:15 09/23/20 05:51 Potassium Chloride/Water 100 ml @ 100 mls/hr Q1H IV 09/23/20 07:00 09/23/20 14:59 09/23/20 10:09 Justifications for Admission Other Justification Hypoglycemia and altered mental status. JARRED PARMAR MD Sep 23, 2020 11:51
[2020-09-23] MEDS: ACETAMINOPHEN 650 MG/20.3 ML SOLUTION. PEG PRN (16:34)
--- NOTE | 2020-09-23 23:37 | CONS ---
DATE OF CONSULTATION: 09/23/2020 REFERRING PHYSICIAN: Dr. Aroldo Fierro. REASON FOR CONSULTATION: Unresponsiveness. HISTORY OF PRESENT ILLNESS: The patient is a 70-year-old man who had a recent prolonged hospitalization for ST-segment elevation myocardial infarction and respiratory failure. He also had a pulseless right leg and required arterial thrombolysis. He also had a pseudoaneurysm. He had a left heart catheterization and placement of stents. He was found obtunded at his group home facility. At baseline, he had been conversational. When he was discovered, his blood glucose was in the 30s. It is not known how long his blood glucose was at that range. He was given glucose tablets and glucagon, and his GCS score en route to [facility] Emergency Room was 6. He did not improve and required intubation. He was intubated and ventilated in the Emergency Room. CT scan of the head did not reveal an acute process. He has been in the Intensive Care Unit. He has not received any sedation for quite a few hours. I am asked to evaluate his neurologic status. This is apparently the third time he has required intubation within a recent past. PAST MEDICAL HISTORY: 1. Chronic obstructive pulmonary disease. 2. History of stroke. 3. Type 2 diabetes. 4. Hyperlipidemia. 5. Hypertension. 6. Hiatal hernia. 7. Left hemiparesis following stroke. 8. Chronic leg pain and edema. 9. Morbid obesity. 10. Umbilical hernia. 11. Coronary artery disease, status post stents. 12. Arterial thrombolysis of the right popliteal aneurysm. ALLERGIES: PENICILLIN, BACITRACIN, CHLORPHENIRAMINE, CIPROFLOXACIN, CODEINE, DEXTROMETHORPHAN, FELODIPINE, HEPARIN, INFLUENZA VIRUS VACCINE, NEOMYCIN, PHENYLEPHRINE, POLYMYXIN B, SULFAMETHOXAZOLE AND TRIMETHOPRIM. FAMILY HISTORY: Noncontributory. SOCIAL HISTORY: He is single and does not have any family. He does not apparently have any social support system. He is a daily smoker. REVIEW OF SYSTEMS: Not obtainable as the patient is in a coma. PHYSICAL EXAMINATION: VITAL SIGNS: The blood pressure was 121/69, pulse 113, respirations 16, temperature 102.5 orally. Oximetry was 96% on the ventilator. GENERAL: He was intubated and ventilated. He was not receiving any sedation. NEUROLOGIC: His eyes were closed. With noxious stimulation, with a sternal rub, his eyes open to crack. There was no focus. He did not follow commands, nor did he look up or down to command. When the eyes were held open, the eyes were disconjugate. Pupils were 4 mm and did react sluggishly. Oculocephalic reflex was partially intact. Left corneal reflex was trace, but I could not elicit a corneal reflex on the right eye. Face appeared symmetric. He did not respond to visual threat or loud clap. Muscle bulk was symmetric. Tone was flaccid in all extremities. There was no spontaneous movement. Nail bed pressure in the upper extremities caused brief extensor posturing. There was no response in the feet to nail bed pressure or to plantar stimulation. Auscultation of the carotid arteries did not reveal a bruit. HEART: Did not have a discernible murmur. ABDOMEN: In listening to the abdomen, I could not hear bowel sounds. LABORATORY RESULTS: CBC was performed on 09/23/2020, revealing a normal white blood cell count and platelet count. Hemoglobin was diminished at 9.8 and hematocrit at 29.4. Chemistries were performed on 09/23/2020, revealing a normal sodium and chloride. Potassium was low at 2.8. CO2 was elevated at 35. BUN was elevated to 31 and creatinine was 1.2 with a GFR that calculated at 59.5. Glucose has been measured on multiple occasions today and ranges from 178-237. Calcium was low at 8.3. Phosphorus and magnesium were normal. On 09/22/2020, at 1742, the glucose was again down to 29. It had been up to 196 at 9:40 that morning. Lactic acid was not elevated on 09/22. Liver enzymes from 09/22/2020, revealed total bilirubin elevated at 1.2 and AST at 46. Troponin was elevated at 0.058. PT/INR was 1.5. An arterial blood gas was performed 09/23/2020 on a ventilator at 60% FiO2. Saturation was 95%. PH was 7.54. The pCO2 was 37 and the pO2 was 77. Bicarbonate was 31. SARS-CoV-2 antigen and RNA testing were both negative. DIAGNOSTIC RESULTS: CT scan of the brain was performed on 09/22/2020 without contrast and revealed age-appropriate atrophy without any intracranial process. Chest x-ray was performed on 09/22/2020, revealing a small left pleural effusion and mild pulmonary edema. There was constipation with no evidence of bowel obstruction. IMPRESSION: The patient is a 70-year-old man who has been hospitalized extensively for underlying health conditions with coronary artery disease, pulmonary disease, infection, and vascular disease. He has diabetes and has uncontrolled sugars. He has had a few episodes of severe hypoglycemia, which may have caused an encephalopathy. If the low blood sugar was prolonged, this could cause significant damage. At the present time, he still has brainstem reflexes, but is very poorly responsive. Prognosis is guarded. RECOMMENDATIONS: I would continue with underlying supportive care as well as avoiding sedating agents. He is requiring close monitoring of his blood sugars to prevent hypoglycemia. We can obtain an MRI of the head on 09/25/2020, if his exam is not improving, to look for focal lesions. I appreciate being involved in his care. KAREEM DR: Kell TID: [id number] CC: RAFAEL REINOSO MD
[2020-09-24] VITALS (23 sets, daily range): BP systolic 79–133; BP diastolic 49–79
[2020-09-24] MEDS: CEFEPIME HCL IV Push 1 GM VIAL. IVP SCH ×3 (05:46→22:54)
[2020-09-24] MEDS: INSULIN LISPRO 300 UNITS/3 ML VIAL. SQ SCH ×4 (05:47→17:51)
[2020-09-24 09:01] LABS: BASE EXCESS ABG 8 mmol/L (-3-3); HCO3 ABG 31 mmol/L (21-28); PCO2 ABG 37 mmHg (35-46); PO2 ABG 94 mmHg (65-108); SAT O2 ABG 98 % (92-99)
[2020-09-24 09:19] LABS: FIO2 ABG 55% VENT
--- NOTE | 2020-09-24 09:34 | PDOC ---
PULMONARY PROGRESS NOTES DATE: 09/24/20 TIME: 09:30 Subjective Remains on assist control mode. Off sedation but not responsive. Vitals Vital Signs Date Time Temp Pulse Resp B/P (MAP) Pulse Ox O2 Delivery O2 Flow Rate FiO2 09/24/20 08:35 98 Ventilator 09/24/20 06:00 106 17 85/56 (66) 09/24/20 04:00 99.9 99.9 Comments Assist control mode. Lungs: Other (Intubated) Cardiovascular: S1, S2 Abdomen: Soft, Non-tender, Other (Obese) Extremities: Other (1+ edema) Labs Laboratory Tests Test 09/22/20 09:40 09/22/20 10:40 09/22/20 17:42 09/22/20 18:00 White Blood Count 4.1 x10^3/uL (4.0-11.0) Red Blood Count 2.93 x10^6/uL (4.30-5.70) Hemoglobin 9.3 g/dL (13.0-17.5) Hematocrit 27.6 % (39.0-53.0) Mean Corpuscular Volume 94 fL (79-100) Mean Corpuscular Hemoglobin 32 pg (25-35) Mean Corpuscular Hemoglobin Concent 34 g/dL (31-37) Red Cell Distribution Width 18.5 % (11.5-14.5) Platelet Count 235 x10^3/uL (140-400) Neutrophils (%) (Auto) 74 % (31-73) Lymphocytes (%) (Auto) 19 % (24-48) Monocytes (%) (Auto) 7 % (0-9) Eosinophils (%) (Auto) 0 % (0-3) Basophils (%) (Auto) 0 % (0-3) Neutrophils # (Auto) 3.0 x10^3/uL (1.8-7.7) Lymphocytes # (Auto) 0.8 x10^3/uL (1.0-4.8) Monocytes # (Auto) 0.3 x10^3/uL (0.0-1.1) Eosinophils # (Auto) 0.0 x10^3/uL (0.0-0.7) Basophils # (Auto) 0.0 x10^3/uL (0.0-0.2) Prothrombin Time 18.3 SEC (11.7-14.0) Prothromb Time International Ratio 1.5 (0.8-1.1) O2 Saturation 99 % (92-99) Arterial Blood pH 7.39 (7.35-7.45) Arterial Blood pCO2 at Patient Temp 51 mmHg (35-46) Arterial Blood pO2 at Patient Temp 208 mmHg (65-108) Arterial Blood HCO3 31 mmol/L (21-28) Arterial Blood Base Excess 5 mmol/L (-3-3) Oxyhemoglobin 98.0 % Methemoglobin 0.5 % (0.0-1.9) Carbon Monoxide, Quantitative 0.3 % (0.0-1.9) FiO2 100/vent Sodium Level 143 mmol/L (136-145) Potassium Level 3.1 mmol/L (3.5-5.1) Chloride Level 103 mmol/L (98-107) Carbon Dioxide Level 32 mmol/L (21-32) Anion Gap 8 (6-14) Blood Urea Nitrogen 27 mg/dL (8-26) Creatinine 1.0 mg/dL (0.7-1.3) Estimated GFR (Cockcroft-Gault) 73.5 BUN/Creatinine Ratio 27 (6-20) Glucose Level 196 mg/dL (70-99) Lactic Acid Level 1.7 mmol/L (0.4-2.0) Calcium Level 7.7 mg/dL (8.5-10.1) Total Bilirubin 1.2 mg/dL (0.2-1.0) Aspartate Amino Transf (AST/SGOT) 46 U/L (15-37) Alanine Aminotransferase (ALT/SGPT) 43 U/L (16-63) Alkaline Phosphatase 86 U/L (46-116) Troponin I Quantitative 0.058 ng/mL (0.000-0.055) Total Protein 5.9 g/dL (6.4-8.2) Albumin 2.1 g/dL (3.4-5.0) Albumin/Globulin Ratio 0.6 (1.0-1.7) SARS-CoV-2 RNA (MARIANELA) Negative (Negative) SARS-CoV-2 Antigen (Rapid) Negative (NEGATIVE) Glucose (Fingerstick) 29 mg/dL (70-99) 82 mg/dL (70-99) Test 09/22/20 23:35 09/23/20 04:45 09/23/20 06:03 09/23/20 08:00 Glucose (Fingerstick) 104 mg/dL (70-99) 182 mg/dL (70-99) White Blood Count 7.2 x10^3/uL (4.0-11.0) Red Blood Count 3.13 x10^6/uL (4.30-5.70) Hemoglobin 9.8 g/dL (13.0-17.5) Hematocrit 29.4 % (39.0-53.0) Mean Corpuscular Volume 94 fL (79-100) Mean Corpuscular Hemoglobin 31 pg (25-35) Mean Corpuscular Hemoglobin Concent 33 g/dL (31-37) Red Cell Distribution Width 18.8 % (11.5-14.5) Platelet Count 287 x10^3/uL (140-400) Neutrophils (%) (Auto) 62 % (31-73) Lymphocytes (%) (Auto) 31 % (24-48) Monocytes (%) (Auto) 6 % (0-9) Eosinophils (%) (Auto) 0 % (0-3) Basophils (%) (Auto) 0 % (0-3) Neutrophils # (Auto) 4.5 x10^3/uL (1.8-7.7) Lymphocytes # (Auto) 2.3 x10^3/uL (1.0-4.8) Monocytes # (Auto) 0.4 x10^3/uL (0.0-1.1) Eosinophils # (Auto) 0.0 x10^3/uL (0.0-0.7) Basophils # (Auto) 0.0 x10^3/uL (0.0-0.2) Sodium Level 141 mmol/L (136-145) Potassium Level 2.8 mmol/L (3.5-5.1) Chloride Level 102 mmol/L (98-107) Carbon Dioxide Level 35 mmol/L (21-32) Anion Gap 4 (6-14) Blood Urea Nitrogen 31 mg/dL (8-26) Creatinine 1.2 mg/dL (0.7-1.3) Estimated GFR (Cockcroft-Gault) 59.5 Glucose Level 178 mg/dL (70-99) Calcium Level 8.3 mg/dL (8.5-10.1) Phosphorus Level 2.9 mg/dL (2.6-4.7) Magnesium Level 1.9 mg/dL (1.8-2.4) O2 Saturation 95 % (92-99) Arterial Blood pH 7.54 (7.35-7.45) Arterial Blood pCO2 at Patient Temp 37 mmHg (35-46) Arterial Blood pO2 at Patient Temp 77 mmHg (65-108) Arterial Blood HCO3 31 mmol/L (21-28) Arterial Blood Base Excess 8 mmol/L (-3-3) FiO2 60% vent Test 09/23/20 13:02 09/23/20 17:02 09/23/20 23:39 09/24/20 05:44 Glucose (Fingerstick) 237 mg/dL (70-99) 148 mg/dL (70-99) 141 mg/dL (70-99) 161 mg/dL (70-99) Test 09/24/20 08:00 O2 Saturation 98 % (92-99) Arterial Blood pH 7.55 (7.35-7.45) Arterial Blood pCO2 at Patient Temp 37 mmHg (35-46) Arterial Blood pO2 at Patient Temp 94 mmHg (65-108) Arterial Blood HCO3 31 mmol/L (21-28) Arterial Blood Base Excess 8 mmol/L (-3-3) FiO2 55% vent Laboratory Tests Test 09/23/20 13:02 09/23/20 17:02 09/23/20 23:39 09/24/20 05:44 Glucose (Fingerstick) 237 mg/dL (70-99) 148 mg/dL (70-99) 141 mg/dL (70-99) 161 mg/dL (70-99) Test 09/24/20 08:00 O2 Saturation 98 % (92-99) Arterial Blood pH 7.55 (7.35-7.45) Arterial Blood pCO2 at Patient Temp 37 mmHg (35-46) Arterial Blood pO2 at Patient Temp 94 mmHg (65-108) Arterial Blood HCO3 31 mmol/L (21-28) Arterial Blood Base Excess 8 mmol/L (-3-3) FiO2 55% vent Medications Active Scripts Medications Dose Route/Sig Max Daily Dose Days Date Category Amiodarone Hcl 200 Mg Tablet 400 Mg PO DAILY 90 09/18/20 Rx [Warfarin Per Pharmacy] 1 EACH Each 1 Each PRN DAILY PRN 30 09/18/20 Rx Clopidogrel (Clopidogrel Bisulfate) 75 Mg Tablet 75 Mg PO DAILYWBKFT 90 09/18/20 Rx Glimepiride 4 Mg Tablet 1 Tab PO DAILY 09/13/20 Reported Furosemide 40 Mg Tablet 1 Tab PO BID 09/13/20 Reported Symbicort 160-4.5 Mcg Inhaler (Budesonide/Formoterol Fumarate) 10.2 Gm Hfa.aer.ad 1 Puff INH DAILY 09/13/20 Reported Losartan-Hctz 100-12.5 Mg Tab (Losartan/Hydrochlorothiazide) 1 Each Tablet 1 Tab PO DAILY 09/13/20 Reported Nitrofurantoin Whiteside-Mcr 100 Mg (Nitrofurantoin Monohyd/M-Cryst) 100 Mg Capsule 1 Cap PO BID 09/13/20 Reported Betamethasone Valerate 60 Ml Lotion 1 TP QHS 09/13/20 Reported Atorvastatin Calcium 40 Mg Tablet 1 Tab PO DAILY 09/13/20 Reported Diltiazem 24Hr Cd (Diltiazem HCl) 240 Mg Cap.er.24h 1 Cap PO DAILY 09/13/20 Reported Nystop (Nystatin) 60 Gm Powder 1 Sudheer TP BID 09/13/20 Reported Humalog (Insulin Lispro) 100 Unit/1 Ml Insuln.pen 0 Units SQ TIDWMEALS 30 08/06/18 Rx Duoneb 0.5-3(2.5) Mg/3 Ml (Albuterol/Ipratropium) 3 Ml Ampul.neb 3 Ml NEB RTQID 30 08/06/18 Rx Aspirin 325 Mg Tablet 325 Mg PO DAILYWBKFT 30 07/22/17 Rx Metoprolol Tartrate 25 Mg Tablet 25 Mg PO BID 30 07/22/17 Rx Montelukast Sodium Tablet (Montelukast Sodium) 10 Mg Tablet 10 Mg PO QHS 07/22/17 Rx Gabapentin 600 Mg Tablet 600 Mg PO BID 30 07/22/17 Rx Pepcid (Famotidine) 20 Mg Tablet 20 Mg PO BID 05/17/13 Reported Impression . 1. Acute on chronic respiratory failure secondary to multifactorial etiologies including hypoglycemic encephalopathy. He also needs to be ruled out for any ischemic stroke. 2. Possible sepsis. 3. Hypoglycemia. 4. The patient with prior history of cerebrovascular accident with left-sided weakness. 5. Underlying chronic obstructive pulmonary disease. 6. Morbid obesity. 7. Peripheral vascular disease. 8. Abnormal CT chest with bibasilar atelectasis. No significant mucus plugging. Tiny pleural effusion seen. Plan . Updated 09/24/2020 1. Remains unresponsive despite off sedation. Cannot exclude ischemic stroke. Neurology is following 2. Continue present assist control mode and make necessary adjustments. 3. Empiric antibiotics. 4. Deep venous thrombosis prophylaxis. 5. The patient does not have any family and there is no one to discuss about advanced directives. 6. We will be following the patient in the ICU. 7. Would recommend MRI of the head to rule out any ischemic stroke. Critical care time 30 minutes including review of the chart, labs, x-rays and decision making. Patient has no DPOA. Will discuss with other physicians regarding his prognosis and consideration of DNR order. Await MRI of the brain tomorrow 09/23/2020 1. Remains unresponsive despite off sedation. Cannot exclude ischemic stroke. Neurology is consulted. 2. Continue present assist control mode and make necessary adjustments. 3. Empiric antibiotics. 4. Deep venous thrombosis prophylaxis. 5. The patient does not have any family and there is no one to discuss about advanced directives. 6. We will be following the patient in the ICU. 7. Would recommend MRI of the head to rule out any ischemic stroke. Critical care time 30 minutes including review of the chart, labs, x-rays and decision making. Patient has no DPOA. Will discuss with other physicians regarding his prognosis and consideration of DNR order. CLINTON PALAFOX MD Sep 24, 2020 09:34
[2020-09-24] MEDS: PANTOPRAZOLE IV PUSH 40 MG VIAL. IVP SCH (10:15)
--- NOTE | 2020-09-24 12:47 | PDOC ---
[facility] PROGRESS NOTE Date of Service DOS: DATE: 09/24/20 TIME: 12:45 History of Present Illness History of Present Illness Patient is a 70-year-old male with a recent prolonged hospitalization for STEMI and respiratory failure for which she was treated with arterial thrombolysis for a right leg popliteal artery aneurysm and also had left heart cath with placement of a stent in the LAD and RCA comes in today after [facility]. Apparently according to the nursing facility patient was in his usual state of health and he was conversational but then became altered. His blood glucose was found to be in the 30s. Glucose tabs and glucagon was given in route and his GCS reported at 6. Upon arrival patient's mental status did not improve and he was eventually intubated for airway protection. Of note EMS was bagging the patient through the nasal access. In the ED, patient was placed on a vent and pulmonology was consulted. Patient was also taken to the CT scanner for sanders scanning. Patient was started to wake up on the vent and sedation was ordered. 09/23/20 Patient examined at bedside. Intubated. Not on any sedation but unresponsive. Neurology consult in place. 09/24/20 Patient seen and examined at bedside. Remains intubated he is off sedation but still remains unresponsive. Planning for MRI brain in the morning. Further plan to be determined by MRI. 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 Plan of care discussed with bedside RN Vitals/I&O Vitals/I&O: Vital Signs Date Time Temp Pulse Resp B/P (MAP) Pulse Ox O2 Delivery O2 Flow Rate FiO2 09/24/20 12:25 94 Ventilator 09/24/20 06:00 106 17 85/56 (66) 09/24/20 04:00 99.9 99.9 I & O 09/23/20 09/23/20 09/24/20 15:00 23:00 07:00 Intake Total 341 ml 630 ml Output Total 325 ml 220 ml 335 ml Balance -325 ml 121 ml 295 ml Physical Exam General: Other (Intubated, nonresponsive) Heart: Regular rate, Normal S1, Normal S2 Lungs: Other (Intubated) Abdomen: Normal bowel sounds, Soft Extremities: No clubbing, No edema, Normal pulses Skin: No rashes, No significant lesion Labs Labs: Laboratory Tests Test 09/23/20 13:02 8/14/21 17:02 09/23/20 23:39 09/24/20 05:44 Glucose (Fingerstick) 237 mg/dL (70-99) 148 mg/dL (70-99) 141 mg/dL (70-99) 161 mg/dL (70-99) Test 09/24/20 08:00 09/24/20 11:53 O2 Saturation 98 % (92-99) Arterial Blood pH 7.55 (7.35-7.45) Arterial Blood pCO2 at Patient Temp 37 mmHg (35-46) Arterial Blood pO2 at Patient Temp 94 mmHg (65-108) Arterial Blood HCO3 31 mmol/L (21-28) Arterial Blood Base Excess 8 mmol/L (-3-3) FiO2 55% vent Glucose (Fingerstick) 170 mg/dL (70-99) Assessment and Plan Assessmemt and Plan Problems Medical Problems: (1) NSTEMI (non-ST elevated myocardial infarction) Status: Acute (2) Obtundation Status: Acute (3) Respiratory arrest Status: Acute Acute metabolic, infectious encephalopathy Acute respiratory failure Healthcare associated pneumonia, possible aspiration, possible gram-negative organisms Acute hypoglycemia Hypokalemia Elevated troponins concerning for type II demand ischemia Severe protein malnutrition Morbid obesity AAA, 4 cm History of diabetes mellitus type 2 History of dyslipidemia history of hypertension History of recent STEMI History of CAD with recent stent placement Admit to ICU for further management Hypoglycemia protocol Continue empiric IV antibiotics with concern for aspiration pneumonia Pulmonology consult for vent management Neurology consulted for worsening neuro status IV electrolyte replacement as needed Warfarin or DVT prophylaxis Protonix while on the vent GI prophylaxis N.p.o. Full code Discussed with RN and SW Disposition inpatient management as above Surrogate decision maker is undesignated Comment Review of Relevant I have reviewed the following items denise (where applicable) has been applied. Medications: Current Medications Medications (Trade) Dose Ordered Sig/Dru Route PRN Reason Start Time Stop Time Status Last Admin Dose Admin Acetaminophen (Tylenol) 650 mg PRN Q6HRS PRN PEG MILD PAIN / TEMP > 100.3'F 09/23/20 16:30 09/23/20 16:34 Justifications for Admission Other Justification Hypoglycemia and altered mental status. JARRED PARMAR MD Sep 24, 2020 12:47
[2020-09-24] MEDS: NOREPINEPHRINE VIAL 8 MG in IV DEXTROSE 5% 250 ML IV PRN (13:20)
--- NOTE | 2020-09-24 13:23 | NUR ---
Pharmacy Warfarin Dosing Note S:Pharmacy consulted to assist with anticoagulation therapy with target INR: 2 -3 O:DEMETRICE HOWE is a 70 year old M with HIT LABS: Last INR: 1.5 Last HGB: 9.8 Last HCT: 29.4 Last PLT: 287 Vitamin K given: N A:INR of 1.5 is below desired range. Target range for this patient is: 2 -3 P: Warfarin dose: 5 mg Today at 1600 Bridge Therapy: None Next INR due tomorrow Pharmacy anticoagulation service will continue to follow. Roseline Varela RPH, 09/24/20 [id number]
[2020-09-24 14:12] LABS: BASO % 0 % (0-3); EOS # 0.1 x10^3/uL (0.0-0.7); EOS % 1 % (0-3); HEMATOCRIT 28.3 % (39.0-53.0); HEMOGLOBIN 9.4 g/dL (13.0-17.5); LYMPH # 1.8 x10^3/uL (1.0-4.8); LYMPH % 20 % (24-48); MEAN CORPUSCULAR HEMOGLOBIN 32 pg (25-35); MEAN CORPUSCULAR HGB CONC 33 g/dL (31-37); MEAN CORPUSCULAR VOLUME 97 fL (79-100); MONO # 0.5 x10^3/uL (0.0-1.1); MONO % 5 % (0-9); NEUT # 6.8 x10^3/uL (1.8-7.7); NEUT % 75 % (31-73); PLATELET COUNT 235 x10^3/uL (140-400); RED BLOOD COUNT 2.93 x10^6/uL (4.30-5.70); RED CELL DISTRIBUTION WIDTH 19.8 % (11.5-14.5); WHITE BLOOD COUNT 9.1 x10^3/uL (4.0-11.0)
[2020-09-24 14:38] LABS: CALCIUM 8.3 mg/dL (8.5-10.1); CREATININE 1.1 mg/dL (0.7-1.3); GFR 65.8; MAGNESIUM 2.2 mg/dL (1.8-2.4); POTASSIUM 3.7 mmol/L (3.5-5.1)
[2020-09-24] MEDS ORDERED: WARFARIN 5 MG TABLET. PO ONE (16:00)
[2020-09-24] MEDS: IV DEXTROSE 5 %-0.45 % NACL 1,000 ML IV SCH (17:40)
[2020-09-25] VITALS (23 sets, daily range): BP systolic 94–148; BP diastolic 55–83
[2020-09-25] MEDS: INSULIN LISPRO 300 UNITS/3 ML VIAL. SQ SCH ×4 (06:00→18:00)
[2020-09-25] MEDS: CEFEPIME HCL IV Push 1 GM VIAL. IVP SCH ×3 (07:07→21:55)
--- NOTE | 2020-09-25 08:52 | PDOC ---
[facility] PROGRESS NOTE Date of Service DOS: DATE: 09/25/20 TIME: 08:48 Chief Complaint Chief Complaint Acute metabolic, infectious encephalopathy Acute respiratory failure Healthcare associated pneumonia, possible aspiration, possible gram-negative organisms Acute hypoglycemia Hypokalemia Elevated troponins concerning for type II demand ischemia Severe protein malnutrition Morbid obesity AAA, 4 cm History of diabetes mellitus type 2 History of dyslipidemia history of hypertension History of recent STEMI History of CAD with recent stent placement Admit to ICU for further management Hypoglycemia protocol Continue empiric IV antibiotics with concern for aspiration pneumonia Pulmonology consult for vent management IV electrolyte replacement as needed Consider cardiology consult if troponins increase Lovenox for DVT prophylaxis Protonix while on the vent GI prophylaxis N.p.o. Full code Discussed with RN and SW Disposition inpatient management as above Surrogate decision maker is undesignated History of Present Illness History of Present Illness Patient is a 70-year-old male with a recent prolonged hospitalization for STEMI and respiratory failure for which she was treated with arterial thrombolysis for a right leg popliteal artery aneurysm and also had left heart cath with p lacement of a stent in the LAD and RCA comes in today after he was found obtunded at his shelter facility. Apparently according to the nursing facility patient was in his usual state of health and he was conversational but then became altered. His blood glucose was found to be in the 30s. Glucose tabs and glucagon was given in route and his GCS reported at 6. Upon arrival patient's mental status did not improve and he was eventually intubated for airway protection. Of note EMS was bagging the patient through the nasal access. In the ED, patient was placed on a vent and pulmonology was consulted. Patient was also taken to the CT scanner for sanders scanning. Patient was started to wake up on the vent and sedation was ordered. 09/23/20 Patient examined at bedside. Intubated. Not on any sedation but unresponsive. Neurology consult in place. 09/24/20 Patient seen and examined at bedside. Remains intubated he is off sedation but still remains unresponsive. Planning for MRI brain in the morning. Further plan to be determined by MRI. 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 Plan of care discussed with bedside RN 09/25/20: Afebrile, currently breathing on ventilator with FiO2 50%, PEEP 5. Had CODE BLUE in ICU this morning; received 2 rounds of CPR, epinephrine, and atropine with ROSC. I believe MRI will be obtained today, per neurology. I had discussion with Dr. Rubalcava about his very poor prognosis due to multifactorial comorbidities. In our opinion continuing with present aggressive care would be futile. I would recommend that he should be made DNR, and after discussion with Dr. Rubalcava he agrees. Since there is no family and no one to discuss goals of care, we agreed to make patient DNR. Critical care time 30 minutes spent reviewing charts, reviewing labs, imaging, discussion with RN. Vitals/I&O Vitals/I&O: Vital Signs Date Time Temp Pulse Resp B/P (MAP) Pulse Ox O2 Delivery O2 Flow Rate FiO2 09/25/20 08:11 74 13 122/72 (89) 97 Ventilator 09/25/20 07:16 98.4 98.4 I & O 09/24/20 09/24/20 09/25/20 15:00 23:00 07:00 Intake Total 1359 ml 0 ml Output Total 315 ml 365 ml 275 ml Balance -315 ml 994 ml -275 ml Physical Exam General: Other (Intubated, nonresponsive) Heart: Regular rate, Normal S1, Normal S2 Lungs: Other (Intubated) Abdomen: Normal bowel sounds, Soft Extremities: No clubbing, No edema, Normal pulses Skin: No rashes, No significant lesion Labs Labs: Laboratory Tests Test 09/24/20 11:53 09/24/20 13:35 09/25/20 01:09 09/25/20 07:11 Glucose (Fingerstick) 170 mg/dL (70-99) 144 mg/dL (70-99) 146 mg/dL (70-99) White Blood Count 9.1 x10^3/uL (4.0-11.0) Red Blood Count 2.93 x10^6/uL (4.30-5.70) Hemoglobin 9.4 g/dL (13.0-17.5) Hematocrit 28.3 % (39.0-53.0) Mean Corpuscular Volume 97 fL (79-100) Mean Corpuscular Hemoglobin 32 pg (25-35) Mean Corpuscular Hemoglobin Concent 33 g/dL (31-37) Red Cell Distribution Width 19.8 % (11.5-14.5) Platelet Count 235 x10^3/uL (140-400) Neutrophils (%) (Auto) 75 % (31-73) Lymphocytes (%) (Auto) 20 % (24-48) Monocytes (%) (Auto) 5 % (0-9) Eosinophils (%) (Auto) 1 % (0-3) Basophils (%) (Auto) 0 % (0-3) Neutrophils # (Auto) 6.8 x10^3/uL (1.8-7.7) Lymphocytes # (Auto) 1.8 x10^3/uL (1.0-4.8) Monocytes # (Auto) 0.5 x10^3/uL (0.0-1.1) Eosinophils # (Auto) 0.1 x10^3/uL (0.0-0.7) Basophils # (Auto) 0.0 x10^3/uL (0.0-0.2) Sodium Level 145 mmol/L (136-145) Potassium Level 3.7 mmol/L (3.5-5.1) Chloride Level 106 mmol/L (98-107) Carbon Dioxide Level 32 mmol/L (21-32) Anion Gap 7 (6-14) Blood Urea Nitrogen 30 mg/dL (8-26) Creatinine 1.1 mg/dL (0.7-1.3) Estimated GFR (Cockcroft-Gault) 65.8 Glucose Level 165 mg/dL (70-99) Calcium Level 8.3 mg/dL (8.5-10.1) Magnesium Level 2.2 mg/dL (1.8-2.4) Assessment and Plan Assessmemt and Plan Problems Medical Problems: (1) NSTEMI (non-ST elevated myocardial infarction) Status: Acute (2) Obtundation Status: Acute (3) Respiratory arrest Status: Acute Comment Review of Relevant I have reviewed the following items denise (where applicable) has been applied. Medications: Current Medications Medications (Trade) Dose Ordered Sig/Dru Route PRN Reason Start Time Stop Time Status Last Admin Dose Admin Warfarin Sodium (Coumadin Per Pharmacy) 1 each PRN DAILY PRN MC SEE COMMENTS 09/24/20 12:30 09/24/20 13:18 Warfarin Sodium (Coumadin) 5 mg 1X WARF ONCE PO 09/24/20 16:00 09/24/20 16:01 DC 09/24/20 17:42 Justifications for Admission Other Justification Hypoglycemia and altered mental status. NAIDA LÓPEZ MD Sep 25, 2020 08:51
--- NOTE | 2020-09-25 08:58 | PDOC ---
PROGRESS NOTES Date of Service DATE: 09/25/20 TIME: 08:54 Assessment Problems Medical Problems: (1) NSTEMI (non-ST elevated myocardial infarction) Status: Acute (2) Obtundation Status: Acute (3) Respiratory arrest Status: Acute Patient is a 70-year-old male with a recent prolonged hospitalization for STEMI and respiratory failure for which she was treated with arterial thrombolysis for a right leg popliteal artery aneurysm and also had left heart cath with placement of a stent in the LAD and RCA comes in today after he was found obtunded at his intermediate facility. Apparently according to the nursing facility patient was in his usual state of health and he was conversational but then became altered. His blood glucose was found to be in the 30s. Glucose tabs and glucagon was given in route and his GCS reported at 6. Upon arrival patient's mental status did not improve and he was eventually intubated for airway protection. Of note EMS was bagging the patient through the nasal access. In the ED, patient was placed on a vent and pulmonology was consulted. Patient was also taken to the CT scanner for sanders scanning. Patient was started to wake up on the vent and sedation was ordered. 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 EOMI. CN: no focal findings. Muscle tone: normal. Muscle strength: Slight spontaneous movements DTR: 1+ Plantar reflex: Silent Gait: not examined Sensory exam: Not testable Cerebellar: not testable Review of Relevant I have reviewed the following items denise (where applicable) has been applied. Labs Laboratory Tests Test 09/23/20 13:02 09/23/20 17:02 09/23/20 23:39 09/24/20 05:44 Glucose (Fingerstick) 237 mg/dL (70-99) 148 mg/dL (70-99) 141 mg/dL (70-99) 161 mg/dL (70-99) Test 09/24/20 08:00 09/24/20 11:53 09/24/20 13:35 09/25/20 01:09 O2 Saturation 98 % (92-99) Arterial Blood pH 7.55 (7.35-7.45) Arterial Blood pCO2 at Patient Temp 37 mmHg (35-46) Arterial Blood pO2 at Patient Temp 94 mmHg (65-108) Arterial Blood HCO3 31 mmol/L (21-28) Arterial Blood Base Excess 8 mmol/L (-3-3) FiO2 55% vent Glucose (Fingerstick) 170 mg/dL (70-99) 144 mg/dL (70-99) White Blood Count 9.1 x10^3/uL (4.0-11.0) Red Blood Count 2.93 x10^6/uL (4.30-5.70) Hemoglobin 9.4 g/dL (13.0-17.5) Hematocrit 28.3 % (39.0-53.0) Mean Corpuscular Volume 97 fL (79-100) Mean Corpuscular Hemoglobin 32 pg (25-35) Mean Corpuscular Hemoglobin Concent 33 g/dL (31-37) Red Cell Distribution Width 19.8 % (11.5-14.5) Platelet Count 235 x10^3/uL (140-400) Neutrophils (%) (Auto) 75 % (31-73) Lymphocytes (%) (Auto) 20 % (24-48) Monocytes (%) (Auto) 5 % (0-9) Eosinophils (%) (Auto) 1 % (0-3) Basophils (%) (Auto) 0 % (0-3) Neutrophils # (Auto) 6.8 x10^3/uL (1.8-7.7) Lymphocytes # (Auto) 1.8 x10^3/uL (1.0-4.8) Monocytes # (Auto) 0.5 x10^3/uL (0.0-1.1) Eosinophils # (Auto) 0.1 x10^3/uL (0.0-0.7) Basophils # (Auto) 0.0 x10^3/uL (0.0-0.2) Sodium Level 145 mmol/L (136-145) Potassium Level 3.7 mmol/L (3.5-5.1) Chloride Level 106 mmol/L (98-107) Carbon Dioxide Level 32 mmol/L (21-32) Anion Gap 7 (6-14) Blood Urea Nitrogen 30 mg/dL (8-26) Creatinine 1.1 mg/dL (0.7-1.3) Estimated GFR (Cockcroft-Gault) 65.8 Glucose Level 165 mg/dL (70-99) Calcium Level 8.3 mg/dL (8.5-10.1) Magnesium Level 2.2 mg/dL (1.8-2.4) Test 09/25/20 07:11 Glucose (Fingerstick) 146 mg/dL (70-99) Laboratory Tests Test 09/24/20 11:53 09/24/20 13:35 09/25/20 01:09 09/25/20 07:11 Glucose (Fingerstick) 170 mg/dL (70-99) 144 mg/dL (70-99) 146 mg/dL (70-99) White Blood Count 9.1 x10^3/uL (4.0-11.0) Red Blood Count 2.93 x10^6/uL (4.30-5.70) Hemoglobin 9.4 g/dL (13.0-17.5) Hematocrit 28.3 % (39.0-53.0) Mean Corpuscular Volume 97 fL (79-100) Mean Corpuscular Hemoglobin 32 pg (25-35) Mean Corpuscular Hemoglobin Concent 33 g/dL (31-37) Red Cell Distribution Width 19.8 % (11.5-14.5) Platelet Count 235 x10^3/uL (140-400) Neutrophils (%) (Auto) 75 % (31-73) Lymphocytes (%) (Auto) 20 % (24-48) Monocytes (%) (Auto) 5 % (0-9) Eosinophils (%) (Auto) 1 % (0-3) Basophils (%) (Auto) 0 % (0-3) Neutrophils # (Auto) 6.8 x10^3/uL (1.8-7.7) Lymphocytes # (Auto) 1.8 x10^3/uL (1.0-4.8) Monocytes # (Auto) 0.5 x10^3/uL (0.0-1.1) Eosinophils # (Auto) 0.1 x10^3/uL (0.0-0.7) Basophils # (Auto) 0.0 x10^3/uL (0.0-0.2) Sodium Level 145 mmol/L (136-145) Potassium Level 3.7 mmol/L (3.5-5.1) Chloride Level 106 mmol/L (98-107) Carbon Dioxide Level 32 mmol/L (21-32) Anion Gap 7 (6-14) Blood Urea Nitrogen 30 mg/dL (8-26) Creatinine 1.1 mg/dL (0.7-1.3) Estimated GFR (Cockcroft-Gault) 65.8 Glucose Level 165 mg/dL (70-99) Calcium Level 8.3 mg/dL (8.5-10.1) Magnesium Level 2.2 mg/dL (1.8-2.4) Medications Current Medications Fentanyl Citrate 30 ml @ 0 mls/hr CONT PRN IV SEE PROTOCOL; Start 09/22/20 at 09:45 Propofol 100 ml @ 0 mls/hr CONT PRN IV PER PROTOCOL Last administered on 09/22/20at 10:30; Start 09/22/20 at 09:45 Fentanyl Citrate (Fentanyl 2ml Vial) 25 mcg PRN Q1HR PRN IV SEE COMMENTS; S tart 09/22/20 at 09:45 Fentanyl Citrate (Fentanyl 2ml Vial) 50 mcg PRN Q1HR PRN IV SEE COMMENTS; Start 09/22/20 at 09:45 Chlorhexidine Gluconate (Peridex) 15 ml BID MM ; Start 09/22/20 at 10:00; Stop 09/22/20 at 19:54; Status DC Midazolam HCl (Versed) 2 mg 1X ONCE IV ; Start 09/22/20 at 10:30; Stop 09/22/20 at 10:31; Status DC Iohexol (Omnipaque 300 Mg/ml) 75 ml 1X ONCE IV Last administered on 09/22/20at 11:06; Start 09/22/20 at 10:45; Stop 09/22/20 at 10:46; Status DC Info (CONTRAST GIVEN -- Rx MONITORING) 1 each PRN DAILY PRN MC SEE COMMENTS; Start 09/22/20 at 10:45; Stop 09/24/20 at 10:44; Status DC Potassium Chloride/Water 100 ml @ 100 mls/hr Q1H IV Last administered on 09/22/20at 20:27; Start 09/22/20 at 15:00; Stop 09/22/20 at 18:59; Status DC Cefepime HCl (Maxipime) 1 gm Q8HRS IVP Last administered on 09/25/20at 07:07; Start 09/22/20 at 14:00 Sennosides (Senna) 17.2 mg PRN BID PRN PO CONSTIPATION; Start 09/22/20 at 14:00 Docusate Sodium (Colace) 100 mg PRN DAILY PRN PO HARD STOOLS; Start 09/22/20 at 14:00; Stop 09/22/20 at 14:00; Status DC Ondansetron HCl (Zofran) 4 mg PRN Q6HRS PRN IVP NAUSEA/VOMITING; Start 09/22/20 at 14:00 Insulin Human Lispro (HumaLOG) 0-7 UNITS Q6HRS SQ Last administered on 09/23/20at 13:06; Start 09/22/20 at 18:00 Dextrose (Dextrose 50%-Water Syringe) 12.5 gm PRN Q15MIN PRN IV SEE COMMENTS Last administered on 09/22/20at 17:47; Start 09/22/20 at 14:00 Dextrose/Sodium Chloride 1,000 ml @ 50 mls/hr Q20H IV Last administered on 09/24/20at 17:40; Start 09/22/20 at 14:00 Acetaminophen (Tylenol) 650 mg PRN Q4HRS PRN PO TEMP OVER 100.4F OR MILD PAIN Last administered on 09/23/20at 00:20; Start 09/22/20 at 14:00; Stop 09/23/20 at 16:24; Status DC Enoxaparin Sodium (Lovenox 40mg Syringe) 40 mg Q24H SQ ; Start 09/22/20 at 14:0 0; Status UNV Pantoprazole Sodium (PROTONIX VIAL for IV PUSH) 40 mg DAILY IVP Last administered on 09/24/20at 10:15; Start 09/23/20 at 09:00 Prochlorperazine Edisylate (Compazine) 10 mg PRN Q6HRS PRN IV NAUSEA/VOMITING, 2ND CHOICE; Start 09/22/20 at 14:00 Etomidate (Amidate) 20 mg STK-MED ONCE IV ; Start 09/22/20 at 17:46; Stop 09/22/20 at 17:46; Status DC Rocuronium [place] (Zemuron) 50 mg STK-MED ONCE .ROUTE ; Start 09/22/20 at 17:46; Stop 09/22/20 at 17:47; Status DC Norepinephrine Bitartrate 8 mg/ Dextrose 258 ml @ 21.769 mls/ hr CONT PRN IV PER PROTOCOL Last administered on 09/24/20at 13:20; Start 09/22/20 at 18:15 Potassium Chloride/Water 100 ml @ 100 mls/hr Q1H IV Last administered on 09/23/20at 14:30; Start 09/23/20 at 07:00; Stop 09/23/20 at 14:59; Status DC Acetaminophen (Tylenol) 650 mg PRN Q6HRS PRN PEG MILD PAIN / TEMP > 100.3'F Last administered on 09/23/20at 16:34; Start 09/23/20 at 16:30 Warfarin Sodium (Coumadin Per Pharmacy) 1 each PRN DAILY PRN MC SEE COMMENTS Last administered on 09/24/20at 13:18; Start 09/24/20 at 12:30 Warfarin Sodium (Coumadin) 5 mg 1X WARF ONCE PO Last administered on 09/24/20at 17:42; Start 09/24/20 at 16:00; Stop 09/24/20 at 16:01; Status DC Active Scripts Active Amiodarone Hcl 200 Mg Tablet 400 Mg PO DAILY 90 Days [Warfarin Per Pharmacy] 1 EACH Each 1 Each MC PRN DAILY PRN 30 Days Clopidogrel (Clopidogrel Bisulfate) 75 Mg Tablet 75 Mg PO DAILYWBKFT 90 Days Humalog (Insulin Lispro) 100 Unit/1 Ml Insuln.pen 0 Units SQ TIDWMEALS 30 Days Duoneb 0.5-3(2.5) Mg/3 Ml (Albuterol/Ipratropium) 3 Ml Ampul.neb 3 Ml NEB RTQID 30 Days Aspirin 325 Mg Tablet 325 Mg PO DAILYWBKFT 30 Days Metoprolol Tartrate 25 Mg Tablet 25 Mg PO BID 30 Days Montelukast Sodium Tablet (Montelukast Sodium) 10 Mg Tablet 10 Mg PO QHS Gabapentin 600 Mg Tablet 600 Mg PO BID 30 Days Reported Glimepiride 4 Mg Tablet 1 Tab PO DAILY Furosemide 40 Mg Tablet 1 Tab PO BID Symbicort 160-4.5 Mcg Inhaler (Budesonide/Formoterol Fumarate) 10.2 Gm Hfa.aer. ad 1 Puff INH DAILY Losartan-Hctz 100-12.5 Mg Tab (Losartan/Hydrochlorothiazide) 1 Each Tablet 1 Tab PO DAILY Nitrofurantoin [place]-Mcr 100 Mg (Nitrofurantoin Monohyd/M-Cryst) 100 Mg Capsule 1 Cap PO BID Betamethasone Valerate 60 Ml Lotion 1 TP QHS Atorvastatin Calcium 40 Mg Tablet 1 Tab PO DAILY Diltiazem 24Hr Cd (Diltiazem HCl) 240 Mg Cap.er.24h 1 Cap PO DAILY Nystop (Nystatin) 60 Gm Powder 1 Sudheer TP BID Pepcid (Famotidine) 20 Mg Tablet 20 Mg PO BID Vitals/I & O Vital Sign - Last 24 Hours 09/24/20 09/24/20 09/24/20 09/24/20 09:00 10:00 11:00 12:00 Temp 100.0 100.0 Pulse 106 106 106 106 Resp 14 12 16 17 B/P (MAP) 105/56 (72) 122/65 (84) 93/62 (72) 111/70 (84) Pulse Ox 95 95 95 95 O2 Delivery Ventilator Ventilator Ventilator Ventilator 09/24/20 09/24/20 09/24/20 09/24/20 12:00 12:25 14:00 15:00 Pulse 106 98 Resp 12 15 B/P (MAP) 133/79 (97) 104/59 (74) Pulse Ox 94 95 95 O2 Delivery Mechanical Ventilator Ventilator Ventilator Ventilator 09/24/20 09/24/20 09/24/20 09/24/20 16:00 16:00 16:06 17:00 Temp 99.8 99.8 Pulse 94 96 Resp 14 15 B/P (MAP) 126/68 (87) 132/78 (96) Pulse Ox 95 97 98 O2 Delivery Mechanical Ventilator Ventilator Ventilator Ventilator 09/24/20 09/24/20 09/24/20 09/24/20 18:00 19:00 20:00 20:00 Pulse 82 84 Resp 12 12 B/P (MAP) 99/56 (70) 100/59 (73) Pulse Ox 98 99 99 O2 Delivery Ventilator Ventilator Ventilator Mechanical Ventilator 09/24/20 09/24/20 09/24/20 09/24/20 20:00 21:00 22:00 22:05 Temp 99.2 99.2 Pulse 84 88 84 Resp 12 12 12 B/P (MAP) 114/66 (82) 112/68 (83) 99/61 (74) Pulse Ox 98 98 99 100 O2 Delivery Ventilator Ventilator Ventilator Ventilator 09/24/20 09/25/20 09/25/20 09/25/20 23:00 00:00 00:00 00:30 Temp 99.4 99.4 Pulse 80 78 Resp 14 12 B/P (MAP) 104/61 (75) 106/62 (77) Pulse Ox 99 100 99 O2 Delivery Ventilator Ventilator Mechanical Ventilator Ventilator 09/25/20 09/25/20 09/25/20 09/25/20 01:00 02:00 03:00 03:38 Pulse 86 80 84 Resp 12 14 12 B/P (MAP) 147/83 (104) 101/63 (76) 145/82 (103) Pulse Ox 98 98 99 97 O2 Delivery Ventilator Ventilator Ventilator Ventilator 09/25/20 09/25/20 09/25/20 09/25/20 04:00 04:00 05:00 05:30 Temp 98.3 98.3 Pulse 80 74 Resp 12 14 B/P (MAP) 108/63 (78) 106/55 (72) Pulse Ox 98 98 99 O2 Delivery Ventilator Mechanical Ventilator Ventilator Ventilator 09/25/20 09/25/20 09/25/20 06:00 07:16 08:11 Temp 98.4 98.4 Pulse 76 76 74 Resp 12 13 13 B/P (MAP) 110/72 (85) 124/79 (94) 122/72 (89) Pulse Ox 98 97 O2 Delivery Ventilator Ventilator Ventilator Intake and Output 09/24/20 09/24/20 09/25/20 15:00 23:00 07:00 Intake Total 1359 ml 0 ml Output Total 315 ml 365 ml 275 ml Balance -315 ml 994 ml -275 ml Justicifation of Admission Dx: Justifications for Admission: Justification of Admission Dx: Yes CHF: Cardiac Arrhythmias RAFAEL REINOSO MD Sep 25, 2020 08:58
--- NOTE | 2020-09-25 09:31 | PDOC ---
PULMONARY PROGRESS NOTES DATE: 09/25/20 TIME: 09:27 Subjective Patient lost pulse early this morning. I responded to CODE BLUE. Patient had 2 rounds of CPR and 1 round of epi and atropine with return of spontaneous circulation. Remains unresponsive despite off sedation.. Remains on assist control mode. Vitals Vital Signs Date Time Temp Pulse Resp B/P (MAP) Pulse Ox O2 Delivery O2 Flow Rate FiO2 09/25/20 09:17 90 Ventilator 09/25/20 08:11 74 13 122/72 (89) 09/25/20 07:16 98.4 98.4 Comments Assist control mode. Lungs: Other (Intubated) Cardiovascular: S1, S2 Abdomen: Soft, Non-tender, Other (Obese) Extremities: Other (1+ edema) Labs Laboratory Tests Test 09/23/20 13:02 09/23/20 17:02 09/23/20 23:39 09/24/20 05:44 Glucose (Fingerstick) 237 mg/dL (70-99) 148 mg/dL (70-99) 141 mg/dL (70-99) 161 mg/dL (70-99) Test 09/24/20 08:00 09/24/20 11:53 09/24/20 13:35 09/25/20 01:09 O2 Saturation 98 % (92-99) Arterial Blood pH 7.55 (7.35-7.45) Arterial Blood pCO2 at Patient Temp 37 mmHg (35-46) Arterial Blood pO2 at Patient Temp 94 mmHg (65-108) Arterial Blood HCO3 31 mmol/L (21-28) Arterial Blood Base Excess 8 mmol/L (-3-3) FiO2 55% vent Glucose (Fingerstick) 170 mg/dL (70-99) 144 mg/dL (70-99) White Blood Count 9.1 x10^3/uL (4.0-11.0) Red Blood Count 2.93 x10^6/uL (4.30-5.70) Hemoglobin 9.4 g/dL (13.0-17.5) Hematocrit 28.3 % (39.0-53.0) Mean Corpuscular Volume 97 fL (79-100) Mean Corpuscular Hemoglobin 32 pg (25-35) Mean Corpuscular Hemoglobin Concent 33 g/dL (31-37) Red Cell Distribution Width 19.8 % (11.5-14.5) Platelet Count 235 x10^3/uL (140-400) Neutrophils (%) (Auto) 75 % (31-73) Lymphocytes (%) (Auto) 20 % (24-48) Monocytes (%) (Auto) 5 % (0-9) Eosinophils (%) (Auto) 1 % (0-3) Basophils (%) (Auto) 0 % (0-3) Neutrophils # (Auto) 6.8 x10^3/uL (1.8-7.7) Lymphocytes # (Auto) 1.8 x10^3/uL (1.0-4.8) Monocytes # (Auto) 0.5 x10^3/uL (0.0-1.1) Eosinophils # (Auto) 0.1 x10^3/uL (0.0-0.7) Basophils # (Auto) 0.0 x10^3/uL (0.0-0.2) Sodium Level 145 mmol/L (136-145) Potassium Level 3.7 mmol/L (3.5-5.1) Chloride Level 106 mmol/L (98-107) Carbon Dioxide Level 32 mmol/L (21-32) Anion Gap 7 (6-14) Blood Urea Nitrogen 30 mg/dL (8-26) Creatinine 1.1 mg/dL (0.7-1.3) Estimated GFR (Cockcroft-Gault) 65.8 Glucose Level 165 mg/dL (70-99) Calcium Level 8.3 mg/dL (8.5-10.1) Magnesium Level 2.2 mg/dL (1.8-2.4) Test 09/25/20 07:11 Glucose (Fingerstick) 146 mg/dL (70-99) Laboratory Tests Test 09/24/20 11:53 09/24/20 13:35 09/25/20 01:09 09/25/20 07:11 Glucose (Fingerstick) 170 mg/dL (70-99) 144 mg/dL (70-99) 146 mg/dL (70-99) White Blood Count 9.1 x10^3/uL (4.0-11.0) Red Blood Count 2.93 x10^6/uL (4.30-5.70) Hemoglobin 9.4 g/dL (13.0-17.5) Hematocrit 28.3 % (39.0-53.0) Mean Corpuscular Volume 97 fL (79-100) Mean Corpuscular Hemoglobin 32 pg (25-35) Mean Corpuscular Hemoglobin Concent 33 g/dL (31-37) Red Cell Distribution Width 19.8 % (11.5-14.5) Platelet Count 235 x10^3/uL (140-400) Neutrophils (%) (Auto) 75 % (31-73) Lymphocytes (%) (Auto) 20 % (24-48) Monocytes (%) (Auto) 5 % (0-9) Eosinophils (%) (Auto) 1 % (0-3) Basophils (%) (Auto) 0 % (0-3) Neutrophils # (Auto) 6.8 x10^3/uL (1.8-7.7) Lymphocytes # (Auto) 1.8 x10^3/uL (1.0-4.8) Monocytes # (Auto) 0.5 x10^3/uL (0.0-1.1) Eosinophils # (Auto) 0.1 x10^3/uL (0.0-0.7) Basophils # (Auto) 0.0 x10^3/uL (0.0-0.2) Sodium Level 145 mmol/L (136-145) Potassium Level 3.7 mmol/L (3.5-5.1) Chloride Level 106 mmol/L (98-107) Carbon Dioxide Level 32 mmol/L (21-32) Anion Gap 7 (6-14) Blood Urea Nitrogen 30 mg/dL (8-26) Creatinine 1.1 mg/dL (0.7-1.3) Estimated GFR (Cockcroft-Gault) 65.8 Glucose Level 165 mg/dL (70-99) Calcium Level 8.3 mg/dL (8.5-10.1) Magnesium Level 2.2 mg/dL (1.8-2.4) Medications Active Scripts Medications Dose Route/Sig Max Daily Dose Days Date Category Amiodarone Hcl 200 Mg Tablet 400 Mg PO DAILY 09/18/20 Rx [Warfarin Per Pharmacy] 1 EACH Each 1 Each MC PRN DAILY PRN 30 09/18/20 Rx Clopidogrel (Clopidogrel Bisulfate) 75 Mg Tablet 75 Mg PO DAILYWBKFT 09/18/20 Rx Glimepiride 4 Mg Tablet 1 Tab PO DAILY 09/13/20 Reported Furosemide 40 Mg Tablet 1 Tab PO BID 09/13/20 Reported Symbicort 160-4.5 Mcg Inhaler (Budesonide/Formoterol Fumarate) 10.2 Gm Hfa.aer.ad 1 Puff INH DAILY 09/13/20 Reported Losartan-Hctz 100-12.5 Mg Tab (Losartan/Hydrochlorothiazide) 1 Each Tablet 1 Tab PO DAILY 09/13/20 Reported Nitrofurantoin [place]-Mcr 100 Mg (Nitrofurantoin Monohyd/M-Cryst) 100 Mg Capsule 1 Cap PO BID 09/13/20 Reported Betamethasone Valerate 60 Ml Lotion 1 TP QHS 09/13/20 Reported Atorvastatin Calcium 40 Mg Tablet 1 Tab PO DAILY 09/13/20 Reported Diltiazem 24Hr Cd (Diltiazem HCl) 240 Mg Cap.er.24h 1 Cap PO DAILY 09/13/20 Reported Nystop (Nystatin) 60 Gm Powder 1 Sudheer TP BID 09/13/20 Reported Humalog (Insulin Lispro) 100 Unit/1 Ml Insuln.pen 0 Units SQ TIDWMEALS 30 08/06/18 Rx Duoneb 0.5-3(2.5) Mg/3 Ml (Albuterol/Ipratropium) 3 Ml Ampul.neb 3 Ml NEB RTQID 30 08/06/18 Rx Aspirin 325 Mg Tablet 325 Mg PO DAILYWBKFT 30 07/22/17 Rx Metoprolol Tartrate 25 Mg Tablet 25 Mg PO BID 30 07/22/17 Rx Montelukast Sodium Tablet (Montelukast Sodium) 10 Mg Tablet 10 Mg PO QHS 07/22/17 Rx Gabapentin 600 Mg Tablet 600 Mg PO BID 30 07/22/17 Rx Pepcid (Famotidine) 20 Mg Tablet 20 Mg PO BID 05/17/13 Reported Impression . 1. Acute on chronic respiratory failure secondary to multifactorial etiologies including hypoglycemic encephalopathy. He also needs to be ruled out for any ischemic stroke. Coded this morning 2. Possible sepsis. 3. Hypoglycemia. 4. The patient with prior history of cerebrovascular accident with left-sided weakness. 5. Underlying chronic obstructive pulmonary disease. 6. Morbid obesity. 7. Peripheral vascular disease. 8. Abnormal CT chest with bibasilar atelectasis. No significant mucus plugging. Tiny pleural effusion seen. 9. Persistent encephalopathy. Needs to rule out ischemic stroke Plan . Updated 09/25/2020 1. Remains unresponsive despite off sedation. Cannot exclude ischemic stroke. Neurology is following. In addition, patient had another CODE BLUE this morning with 2 rounds of CPR and 1 round of epinephrine and atropine. 2. Continue present assist control mode and make necessary adjustments. 3. Empiric antibiotics. 4. Deep venous thrombosis prophylaxis. 5. The patient does not have any family and there is no one to discuss about advanced directives. 6. We will be following the patient in the ICU. 7. Would recommend MRI of the head to rule out any ischemic stroke. Critical care time 35 minutes including review of the chart, labs, x-rays and decision making. Patient has no DPOA. Patient has extremely poor prognosis due to multifactorial comorbidities. In addition he clinically has another stroke and coded this morning. In my opinion continuing present aggressive care would be futile care. I would recommend that he should be made DNR. Have discussed with patient's hospitalist Dr. Li he agrees. I will also discuss with neurology. Updated 09/24/2020 1. Remains unresponsive despite off sedation. Cannot exclude ischemic stroke. Neurology is following 2. Continue present assist control mode and make necessary adjustments. 3. Empiric antibiotics. 4. Deep venous thrombosis prophylaxis. 5. The patient does not have any family and there is no one to discuss about advanced directives. 6. We will be following the patient in the ICU. 7. Would recommend MRI of the head to rule out any ischemic stroke. Critical care time 30 minutes including review of the chart, labs, x-rays and decision making. Patient has no DPOA. Will discuss with other physicians regarding his prognosis and consideration of DNR order. Await MRI of the brain tomorrow 09/23/2020 1. Remains unresponsive despite off sedation. Cannot exclude ischemic stroke. Neurology is consulted. 2. Continue present assist control mode and make necessary adjustments. 3. Empiric antibiotics. 4. Deep venous thrombosis prophylaxis. 5. The patient does not have any family and there is no one to discuss about advanced directives. 6. We will be following the patient in the ICU. 7. Would recommend MRI of the head to rule out any ischemic stroke. Critical care time 30 minutes including review of the chart, labs, x-rays and decision making. Patient has no DPOA. Will discuss with other physicians regarding his prognosis and consideration of DNR order. CLINTON PALAFOX MD Sep 25, 2020 09:31
[2020-09-25 09:48] LABS: BASE EXCESS ABG 5 mmol/L (-3-3); HCO3 ABG 30 mmol/L (21-28); PCO2 ABG 42 mmHg (35-46); PO2 ABG 58 mmHg (65-108); SAT O2 ABG 88 % (92-99)
--- NOTE | 2020-09-25 09:53 | RAD ---
Procedure: Right internal jugular central line placement, ultrasound-guided Sterility: All elements of maximal sterile barrier technique including the use of a cap, mask, steril e gown, sterile gloves, large sterile sheet, appropriate hand hygiene, and 2% chlorhexidine for cutan eous antisepsis (or acceptable alternative antiseptic per current guidelines) were followed for this procedure. Consent: The procedure was performed as a medical necessity under emergent conditions. Technique and Findings The patient was prepped and draped in the usual sterile fashion. Ultrasound i nterrogation of the right neck revealed patency and compressibility of the right internal jugular vei n. A 21-gauge micropuncture was then used to gain access to this vein under ultrasound guidance. A hard copy ultrasound image was recorded. A guidewire was advanced centrally over which, following dil atation, a central venous catheter was placed. The new catheter was found to flush and aspirate nor howie. The catheter was secured in place. Sterile dressings were applied. No immediate complications were identified. IMPRESSION: Placement of a right internal jugular central line with ultrasound guidance Electronically signed by: Evans Jarrell MD (09/25/2020 9:51 AM) [id number]
[2020-09-25] MEDS ORDERED: ATROPINE 1 MG/10 ML DISP.SYRINGE. ONE (10:00)
[2020-09-25] MEDS ORDERED: EPINEPHrine SYRINGE 1 MG/10 ML SYRINGE ONE (10:00)
--- NOTE | 2020-09-25 10:32 | RAD ---
XR CHEST 1V CLINICAL INDICATIONS: Reason: CENTRAL LINE PLACEMENT COMPARISON: September 22, 2020. Findings: ET tube is again evident and the tip is located 4 cm above the henry. Tip of NG tube canno t be seen in this study. Right IJ central line has been placed and the tip is seen within the lower S VC at the junction with the right atrium. No pneumothorax is seen. Small left-sided pleural effusion is again evident which is smaller. There is improved aeration of the left lung base. Bilateral perihi lar lung infiltrates or pulmonary edema are still evident and have not changed significantly given di fferences in penetration. Heart size and mediastinum are stable. IMPRESSION: Placement of right IJ central line without pneumothorax. Improvement of small left-sided pleural effusion with improved aeration of the left lung base. Persistent unchanged bilateral perihilar lung infiltrates or pulmonary edema. Electronically signed by: Israel Trujillo MD (09/25/2020 10:29 AM) [id number]
[2020-09-25 11:10] LABS: BASO % 1 % (0-3); EOS # 0.2 x10^3/uL (0.0-0.7); EOS % 3 % (0-3); HEMATOCRIT 23.6 % (39.0-53.0); HEMOGLOBIN 7.8 g/dL (13.0-17.5); LYMPH # 0.8 x10^3/uL (1.0-4.8); LYMPH % 14 % (24-48); MEAN CORPUSCULAR HEMOGLOBIN 32 pg (25-35); MEAN CORPUSCULAR HGB CONC 33 g/dL (31-37); MEAN CORPUSCULAR VOLUME 95 fL (79-100); MONO # 0.3 x10^3/uL (0.0-1.1); MONO % 5 % (0-9); NEUT # 4.5 x10^3/uL (1.8-7.7); NEUT % 77 % (31-73); PLATELET COUNT 218 x10^3/uL (140-400); RED BLOOD COUNT 2.49 x10^6/uL (4.30-5.70); RED CELL DISTRIBUTION WIDTH 18.8 % (11.5-14.5); WHITE BLOOD COUNT 5.8 x10^3/uL (4.0-11.0)
[2020-09-25 11:17] LABS: CALCIUM 8.3 mg/dL (8.5-10.1); CREATININE 0.8 mg/dL (0.7-1.3); POTASSIUM 3.2 mmol/L (3.5-5.1)
[2020-09-25 11:36] LABS: PROTHROMBIN TIME PATIENT 28.8 SEC (11.7-14.0)
--- NOTE | 2020-09-25 11:55 | NUR ---
SS following for discharge planning. SS reviewed pt chart and discussed with pt RN. Pt is skilled rehabilitation resident from [place], ; fax [phone]. Pt coded this AM. Pt is currently on the vent at 45%. COVID19 negative. Pt on IV Cefepime. MRI today. DNR now. Not stable. SS will continue to follow for discharge planning.
[2020-09-25] MEDS: PANTOPRAZOLE IV PUSH 40 MG VIAL. IVP SCH (12:01)
[2020-09-25] MEDS: IV DEXTROSE 5 %-0.45 % NACL 1,000 ML IV SCH ×2 (12:02→18:29)
[2020-09-25 12:15] LABS: FIO2 ABG 40
--- NOTE | 2020-09-25 15:38 | NUR ---
Pharmacy Warfarin Dosing Note S: Pharmacy consulted to assist with anticoagulation therapy O: DEMETRICE HOWE is a 70 year old M with HIT treatment. LABS: Last INR: 2.8 Last HGB: 7.8 Last HCT: 23.6 Last PLT: 218 Last dose of 5 mg given on 09/24/20 at 1742 Vitamin K given: N A:INR of 2.8 is elevated from last INR value taken on 09/22 of 1.5. Warfarin was held until 09/24 when pt received warfarin 5 mg x 1 dose. Hesitant to give warfarin dose today due to precipitous jump in INR with very little warfarin given. P: HOLD warfarin dose today Bridge Therapy: None Next INR due 09/26/20 Pharmacy anticoagulation service will continue to follow. [facility], 09/25/20 [id number]
--- NOTE | 2020-09-25 18:44 | NUR ---
This RN was called into patient's room by KARY SNOW at 0835. Patient coded with PEA. ROSC at 0846. See code sheet.
[2020-09-26] VITALS (25 sets, daily range): BP systolic 92–145; BP diastolic 63–86
[2020-09-26] MEDS: CEFEPIME HCL IV Push 1 GM VIAL. IVP SCH ×3 (06:25→22:03)
[2020-09-26 07:08] LABS: PROTHROMBIN TIME PATIENT 32.3 SEC (11.7-14.0)
--- NOTE | 2020-09-26 08:28 | RAD ---
MRI BRAIN WO Date: 09/25/2020 2:00 PM Indication: hypoglycemic encephalopathy, coma Comparison: CT head 09/22/2020. Technique: Multiplanar multisequence MRI of the brain was performed without intravenous contrast usin g the standard protocol. Findings: No acute infarct. No acute or chronic hemorrhage. The ventricles are normal in size and configuration without hydrocephalus. Mild generalized cerebral volume loss. The scalp and calvarium are normal. The pituitary and sella are normal. No Chiari malformation. Mild incompletely characterized degenerative spondylosis of the visualized upper cervical spine. The visualized orbits and globes are normal. The visualized paranasal sinuses are clear. Bilateral ma stoid fluid. Normal flow voids within the vertebral, basilar, and internal carotid arteries indicating patency. IMPRESSION: No acute infarct, hemorrhage, mass, or hydrocephalus. Electronically signed by: Jaden Sanford MD (09/26/2020 8:25 AM) [facility]
[2020-09-26 09:10] LABS: BASE EXCESS ABG 4 mmol/L (-3-3); HCO3 ABG 27 mmol/L (21-28); PCO2 ABG 36 mmHg (35-46); PO2 ABG 100 mmHg (65-108); SAT O2 ABG 98 % (92-99)
[2020-09-26 09:45] LABS: FIO2 ABG 45% VENT
--- NOTE | 2020-09-26 09:53 | PDOC ---
PROGRESS NOTES Date of Service DATE: 09/26/20 TIME: 09:51 Assessment Problems Medical Problems: (1) NSTEMI (non-ST elevated myocardial infarction) Status: Acute (2) Obtundation Status: Acute (3) Respiratory arrest Status: Acute Found obtunded at [facility], unresponsive, no new stroke on MRI Last admit had prolonged encephalopathy following the development of cardiogenic shock, STEMI, with negative EEG and CT head Remote history of seizures Last admit I felt there was a component of critical illness neuropathy/myopathy Respiratory failure LAST ADMIT had: septic shock, leukocytosis, lactic acidosis, acute kidney injury, 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 Rubalcava Subjective None Objective Vital Signs Date Time Temp Pulse Resp B/P (MAP) Pulse Ox O2 Delivery O2 Flow Rate FiO2 09/26/20 08:36 98 Ventilator 09/25/20 18:24 92 16 127/66 (86) 09/25/20 16:00 99.0 99.0 Intake and Output 09/26/20 07:00 Intake Total 0 ml Output Total 210 ml Balance -210 ml Intake Oral 0 ml Output Urine Total 210 ml PHYSICAL EXAM Intubated, off sedation, unresponsive PERRL. EOMI. CN: no focal findings. Muscle tone: normal. Muscle strength: Slight spontaneous movements DTR: 1+ Plantar reflex: Silent Gait: not examined Sensory exam: Not testable Cerebellar: not testable Review of Relevant I have reviewed the following items denise (where applicable) has been applied. Labs Laboratory Tests Test 09/24/20 11:53 09/24/20 13:35 09/25/20 01:09 09/25/20 07:11 Glucose (Fingerstick) 170 mg/dL (70-99) 144 mg/dL (70-99) 146 mg/dL (70-99) White Blood Count 9.1 x10^3/uL (4.0-11.0) Red Blood Count 2.93 x10^6/uL (4.30-5.70) Hemoglobin 9.4 g/dL (13.0-17.5) Hematocrit 28.3 % (39.0-53.0) Mean Corpuscular Volume 97 fL (79-100) Mean Corpuscular Hemoglobin 32 pg (25-35) Mean Corpuscular Hemoglobin Concent 33 g/dL (31-37) Red Cell Distribution Width 19.8 % (11.5-14.5) Platelet Count 235 x10^3/uL (140-400) Neutrophils (%) (Auto) 75 % (31-73) Lymphocytes (%) (Auto) 20 % (24-48) Monocytes (%) (Auto) 5 % (0-9) Eosinophils (%) (Auto) 1 % (0-3) Basophils (%) (Auto) 0 % (0-3) Neutrophils # (Auto) 6.8 x10^3/uL (1.8-7.7) Lymphocytes # (Auto) 1.8 x10^3/uL (1.0-4.8) Monocytes # (Auto) 0.5 x10^3/uL (0.0-1.1) Eosinophils # (Auto) 0.1 x10^3/uL (0.0-0.7) Basophils # (Auto) 0.0 x10^3/uL (0.0-0.2) Sodium Level 145 mmol/L (136-145) Potassium Level 3.7 mmol/L (3.5-5.1) Chloride Level 106 mmol/L (98-107) Carbon Dioxide Level 32 mmol/L (21-32) Anion Gap 7 (6-14) Blood Urea Nitrogen 30 mg/dL (8-26) Creatinine 1.1 mg/dL (0.7-1.3) Estimated GFR (Cockcroft-Gault) 65.8 Glucose Level 165 mg/dL (70-99) Calcium Level 8.3 mg/dL (8.5-10.1) Magnesium Level 2.2 mg/dL (1.8-2.4) Test 09/25/20 09:40 09/25/20 11:00 09/25/20 12:05 09/25/20 18:30 O2 Saturation 88 % (92-99) Arterial Blood pH 7.47 (7.35-7.45) Arterial Blood pCO2 at Patient Temp 42 mmHg (35-46) Arterial Blood pO2 at Patient Temp 58 mmHg (65-108) Arterial Blood HCO3 30 mmol/L (21-28) Arterial Blood Base Excess 5 mmol/L (-3-3) FiO2 40 White Blood Count 5.8 x10^3/uL (4.0-11.0) Red Blood Count 2.49 x10^6/uL (4.30-5.70) Hemoglobin 7.8 g/dL (13.0-17.5) Hematocrit 23.6 % (39.0-53.0) Mean Corpuscular Volume 95 fL (79-100) Mean Corpuscular Hemoglobin 32 pg (25-35) Mean Corpuscular Hemoglobin Concent 33 g/dL (31-37) Red Cell Distribution Width 18.8 % (11.5-14.5) Platelet Count 218 x10^3/uL (140-400) Neutrophils (%) (Auto) 77 % (31-73) Lymphocytes (%) (Auto) 14 % (24-48) Monocytes (%) (Auto) 5 % (0-9) Eosinophils (%) (Auto) 3 % (0-3) Basophils (%) (Auto) 1 % (0-3) Neutrophils # (Auto) 4.5 x10^3/uL (1.8-7.7) Lymphocytes # (Auto) 0.8 x10^3/uL (1.0-4.8) Monocytes # (Auto) 0.3 x10^3/uL (0.0-1.1) Eosinophils # (Auto) 0.2 x10^3/uL (0.0-0.7) Basophils # (Auto) 0.0 x10^3/uL (0.0-0.2) Prothrombin Time 28.8 SEC (11.7-14.0) Prothromb Time International Ratio 2.8 (0.8-1.1) Sodium Level 141 mmol/L (136-145) Potassium Level 3.2 mmol/L (3.5-5.1) Chloride Level 105 mmol/L (98-107) Carbon Dioxide Level 36 mmol/L (21-32) Anion Gap 0 (6-14) Blood Urea Nitrogen 24 mg/dL (8-26) Creatinine 0.8 mg/dL (0.7-1.3) Estimated GFR (Cockcroft-Gault) 95.0 Glucose Level 156 mg/dL (70-99) Calcium Level 8.3 mg/dL (8.5-10.1) Magnesium Level 2.0 mg/dL (1.8-2.4) Glucose (Fingerstick) 140 mg/dL (70-99) 123 mg/dL (70-99) Test 09/26/20 06:45 09/26/20 08:00 Prothrombin Time 32.3 SEC (11.7-14.0) Prothromb Time International Ratio 3.2 (0.8-1.1) O2 Saturation 98 % (92-99) Arterial Blood pH 7.50 (7.35-7.45) Arterial Blood pCO2 at Patient Temp 36 mmHg (35-46) Arterial Blood pO2 at Patient Temp 100 mmHg (65-108) Arterial Blood HCO3 27 mmol/L (21-28) Arterial Blood Base Excess 4 mmol/L (-3-3) FiO2 45% vent Laboratory Tests Test 09/25/20 11:00 09/25/20 12:05 09/25/20 18:30 09/26/20 06:45 White Blood Count 5.8 x10^3/uL (4.0-11.0) Red Blood Count 2.49 x10^6/uL (4.30-5.70) Hemoglobin 7.8 g/dL (13.0-17.5) Hematocrit 23.6 % (39.0-53.0) Mean Corpuscular Volume 95 fL (79-100) Mean Corpuscular Hemoglobin 32 pg (25-35) Mean Corpuscular Hemoglobin Concent 33 g/dL (31-37) Red Cell Distribution Width 18.8 % (11.5-14.5) Platelet Count 218 x10^3/uL (140-400) Neutrophils (%) (Auto) 77 % (31-73) Lymphocytes (%) (Auto) 14 % (24-48) Monocytes (%) (Auto) 5 % (0-9) Eosinophils (%) (Auto) 3 % (0-3) Basophils (%) (Auto) 1 % (0-3) Neutrophils # (Auto) 4.5 x10^3/uL (1.8-7.7) Lymphocytes # (Auto) 0.8 x10^3/uL (1.0-4.8) Monocytes # (Auto) 0.3 x10^3/uL (0.0-1.1) Eosinophils # (Auto) 0.2 x10^3/uL (0.0-0.7) Basophils # (Auto) 0.0 x10^3/uL (0.0-0.2) Prothrombin Time 28.8 SEC (11.7-14.0) 32.3 SEC (11.7-14.0) Prothromb Time International Ratio 2.8 (0.8-1.1) 3.2 (0.8-1.1) Sodium Level 141 mmol/L (136-145) Potassium Level 3.2 mmol/L (3.5-5.1) Chloride Level 105 mmol/L (98-107) Carbon Dioxide Level 36 mmol/L (21-32) Anion Gap 0 (6-14) Blood Urea Nitrogen 24 mg/dL (8-26) Creatinine 0.8 mg/dL (0.7-1.3) Estimated GFR (Cockcroft-Gault) 95.0 Glucose Level 156 mg/dL (70-99) Calcium Level 8.3 mg/dL (8.5-10.1) Magnesium Level 2.0 mg/dL (1.8-2.4) Glucose (Fingerstick) 140 mg/dL (70-99) 123 mg/dL (70-99) Test 09/26/20 08:00 O2 Saturation 98 % (92-99) Arterial Blood pH 7.50 (7.35-7.45) Arterial Blood pCO2 at Patient Temp 36 mmHg (35-46) Arterial Blood pO2 at Patient Temp 100 mmHg (65-108) Arterial Blood HCO3 27 mmol/L (21-28) Arterial Blood Base Excess 4 mmol/L (-3-3) FiO2 45% vent Medications Current Medications Fentanyl Citrate 30 ml @ 0 mls/hr CONT PRN IV SEE PROTOCOL; Start 09/22/20 at 09:45 Propofol 100 ml @ 0 mls/hr CONT PRN IV PER PROTOCOL Last administered on 09/22/20at 10:30; Start 09/22/20 at 09:45 Fentanyl Citrate (Fentanyl 2ml Vial) 25 mcg PRN Q1HR PRN IV SEE COMMENTS; Start 09/22/20 at 09:45 Fentanyl Citrate (Fentanyl 2ml Vial) 50 mcg PRN Q1HR PRN IV SEE COMMENTS; Start 09/22/20 at 09:45 Chlorhexidine Gluconate (Peridex) 15 ml BID MM ; Start 09/22/20 at 10:00; Stop 09/22/20 at 19:54; Status DC Midazolam HCl (Versed) 2 mg 1X ONCE IV ; Start 09/22/20 at 10:30; Stop 09/22/20 at 10:31; Status DC Iohexol (Omnipaque 300 Mg/ml) 75 ml 1X ONCE IV Last administered on 09/22/20at 11:06; Start 09/22/20 at 10:45; Stop 09/22/20 at 10:46; Status DC Info (CONTRAST GIVEN -- Rx MONITORING) 1 each PRN DAILY PRN MC SEE COMMENTS; Start 09/22/20 at 10:45; Stop 09/24/20 at 10:44; Status DC Potassium Chloride/Water 100 ml @ 100 mls/hr Q1H IV Last administered on at 20:27; Start 09/22/20 at 15:00; Stop 09/22/20 at 18:59; Status DC Cefepime HCl (Maxipime) 1 gm Q8HRS IVP Last administered on 09/26/20at 06:25; Start 09/22/20 at 14:00 Sennosides (Senna) 17.2 mg PRN BID PRN PO CONSTIPATION; Start 09/22/20 at 14:00 Docusate Sodium (Colace) 100 mg PRN DAILY PRN PO HARD STOOLS; Start 09/22/20 at 14:00; Stop 09/22/20 at 14:00; Status DC Ondansetron HCl (Zofran) 4 mg PRN Q6HRS PRN IVP NAUSEA/VOMITING, 1ST CHOICE; Start 09/22/20 at 14:00 Insulin Human Lispro (HumaLOG) 0-7 UNITS Q6HRS SQ Last administered on 09/23/20at 13:06; Start 09/22/20 at 18:00 Dextrose (Dextrose 50%-Water Syringe) 12.5 gm PRN Q15MIN PRN IV SEE COMMENTS Last administered on 09/22/20at 17:47; Start 09/22/20 at 14:00 Dextrose/Sodium Chloride 1,000 ml @ 50 mls/hr Q20H IV Last administered on 09/25/20at 18:29; Start 09/22/20 at 14:00 Acetaminophen (Tylenol) 650 mg PRN Q4HRS PRN PO TEMP OVER 100.4F OR MILD PAIN Last administered on 09/23/20at 00:20; Start 09/22/20 at 14:00; Stop 09/23/20 at 16:24; Status DC Enoxaparin Sodium (Lovenox 40mg Syringe) 40 mg Q24H SQ ; Start 09/22/20 at 14:00; Status UNV Pantoprazole Sodium (PROTONIX VIAL for IV PUSH) 40 mg DAILY IVP Last administered on 09/25/20at 12:01; Start 09/23/20 at 09:00 Prochlorperazine Edisylate (Compazine) 10 mg PRN Q6HRS PRN IV NAUSEA/VOMITING, 2ND CHOICE; Start 09/22/20 at 14:00 Etomidate (Amidate) 20 mg STK-MED ONCE IV ; Start 09/22/20 at 17:46; Stop 09/22/20 at 17:46; Status DC Rocuronium [place] (Zemuron) 50 mg STK-MED ONCE .ROUTE ; Start 09/22/20 at 17:46; Stop 09/22/20 at 17:47; Status DC Norepinephrine Bitartrate 8 mg/ Dextrose 258 ml @ 21.769 mls/ hr CONT PRN IV PER PROTOCOL Last administered on 09/24/20at 13:20; Start 09/22/20 at 18:15 Potassium Chloride/Water 100 ml @ 100 mls/hr Q1H IV Last administered on 09/23/20at 14:30; Start 09/23/20 at 07:00; Stop 09/23/20 at 14:59; Status DC Acetaminophen (Tylenol) 650 mg PRN Q6HRS PRN PEG MILD PAIN / TEMP > 100.3'F Last administered on 09/23/20at 16:34; Start 09/23/20 at 16:30 Warfarin Sodium (Coumadin Per Pharmacy) 1 each PRN DAILY PRN MC SEE COMMENTS Last administered on 09/25/20at 15:37; Start 09/24/20 at 12:30 Warfarin Sodium (Coumadin) 5 mg 1X WARF ONCE PO Last administered on 09/24/20at 17:42; Start 09/24/20 at 16:00; Stop 09/24/20 at 16:01; Status DC Warfarin Sodium (Coumadin - No Dose Today) 1 each 1X WARF ONCE MC ; Start 09/25/20 at 16:00; Stop 09/25/20 at 16:01; Status DC Active Scripts Active Amiodarone Hcl 200 Mg Tablet 400 Mg PO DAILY 90 Days [Warfarin Per Pharmacy] 1 EACH Each 1 Each MC PRN DAILY PRN 30 Days Clopidogrel (Clopidogrel Bisulfate) 75 Mg Tablet 75 Mg PO DAILYWBKFT 90 Days Humalog (Insulin Lispro) 100 Unit/1 Ml Insuln.pen 0 Units SQ TIDWMEALS 30 Days Duoneb 0.5-3(2.5) Mg/3 Ml (Albuterol/Ipratropium) 3 Ml Ampul.neb 3 Ml NEB RTQID 30 Days Aspirin 325 Mg Tablet 325 Mg PO DAILYWBKFT 30 Days Metoprolol Tartrate 25 Mg Tablet 25 Mg PO BID 30 Days Montelukast Sodium Tablet (Montelukast Sodium) 10 Mg Tablet 10 Mg PO QHS Gabapentin 600 Mg Tablet 600 Mg PO BID 30 Days Reported Glimepiride 4 Mg Tablet 1 Tab PO DAILY Furosemide 40 Mg Tablet 1 Tab PO BID Symbicort 160-4.5 Mcg Inhaler (Budesonide/Formoterol Fumarate) 10.2 Gm Hfa.aer.ad 1 Puff INH DAILY Losartan-Hctz 100-12.5 Mg Tab (Losartan/Hydrochlorothiazide) 1 Each Tablet 1 Tab PO DAILY Nitrofurantoin Freestone-Mcr 100 Mg (Nitrofurantoin Monohyd/M-Cryst) 100 Mg Capsule 1 Cap PO BID Betamethasone Valerate 60 Ml Lotion 1 TP QHS Atorvastatin Calcium 40 Mg Tablet 1 Tab PO DAILY Diltiazem 24Hr Cd (Diltiazem HCl) 240 Mg Cap.er.24h 1 Cap PO DAILY Nystop (Nystatin) 60 Gm Powder 1 Sudheer TP BID Pepcid (Famotidine) 20 Mg Tablet 20 Mg PO BID Vitals/I & O Vital Sign - Last 24 Hours 09/25/20 09/25/20 09/25/20 09/25/20 10:00 11:00 12:08 12:09 Pulse 74 92 94 Resp 13 13 14 B/P (MAP) 101/61 (74) 120/70 (87) 123/72 (89) Pulse Ox 97 99 97 O2 Delivery Ventilator Ventilator Mechanical Ventilator Ventilator 8/1609/25/20 09/25/20 09/25/20 12:25 13:16 15:05 16:00 Temp 98.4 99.0 98.4 99.0 Pulse 87 92 90 Resp 12 17 18 B/P (MAP) 129/79 (96) 148/80 (102) 110/66 (81) Pulse Ox 97 95 95 97 O2 Delivery Ventilator Ventilator Ventilator Ventilator 09/25/20 09/25/20 09/25/20 09/25/20 16:27 16:40 17:09 18:24 Pulse 84 92 Resp 12 16 B/P (MAP) 109/66 (80) 127/66 (86) Pulse Ox 98 98 97 O2 Delivery Ventilator Mechanical Ventilator Ventilator Ventilator 09/25/20 09/25/20 09/26/20 09/26/20 20:00 22:32 01:41 04:35 Pulse Ox 98 97 98 96 O2 Delivery Ventilator Ventilator Ventilator Ventilator 09/26/20 08:36 Pulse Ox 98 O2 Delivery Ventilator Intake and Output 09/25/20 09/25/20 09/26/20 15:00 23:00 07:00 Intake Total 0 ml Output Total 105 ml 105 ml Balance -105 ml -105 ml Images MRI BRAIN WO Date: 09/25/2020 2:00 PM Indication: hypoglycemic encephalopathy, coma Comparison: CT head 09/22/2020. Technique: Multiplanar multisequence MRI of the brain was performed without intravenous contrast using the standard protocol. Findings: No acute infarct. No acute or chronic hemorrhage. The ventricles are normal in size and configuration without hydrocephalus. Mild generalized cerebral volume loss. The scalp and calvarium are normal. The pituitary and sella are normal. No Chiari malformation. Mild incompletely characterized degenerative spondylosis of the visualized upper cervical spine. The visualized orbits and globes are normal. The visualized paranasal sinuses are clear. Bilateral mastoid fluid. Normal flow voids within the vertebral, basilar, and internal carotid arteries indicating patency. IMPRESSION: No acute infarct, hemorrhage, mass, or hydrocephalus. Justicifation of Admission Dx: Justifications for Admission: Justification of Admission Dx: Yes CHF: Cardiac Arrhythmias RAFAEL REINOSO MD Sep 26, 2020 09:53
--- NOTE | 2020-09-26 10:10 | PDOC ---
PULMONARY PROGRESS NOTES DATE: 09/26/20 TIME: 09:59 Subjective Pt. remains on vent support 45%/5 afebrile S/P cardiac arrest 09/26/20, responds to painful stimulus no overnight concerns Vitals Vital Signs Date Time Temp Pulse Resp B/P (MAP) Pulse Ox O2 Delivery O2 Flow Rate FiO2 09/26/20 08:36 98 Ventilator 09/25/20 18:24 92 16 127/66 (86) 09/25/20 16:00 99.0 99.0 Comments vent Lungs: Other (Intubated) Cardiovascular: S1, S2 Abdomen: Soft, Non-tender, Other (Obese) Extremities: Other (1+ edema) Labs Laboratory Tests Test 09/24/20 11:53 09/24/20 13:35 09/25/20 01:09 09/25/20 07:11 Glucose (Fingerstick) 170 mg/dL (70-99) 144 mg/dL (70-99) 146 mg/dL (70-99) White Blood Count 9.1 x10^3/uL (4.0-11.0) Red Blood Count 2.93 x10^6/uL (4.30-5.70) Hemoglobin 9.4 g/dL (13.0-17.5) Hematocrit 28.3 % (39.0-53.0) Mean Corpuscular Volume 97 fL (79-100) Mean Corpuscular Hemoglobin 32 pg (25-35) Mean Corpuscular Hemoglobin Concent 33 g/dL (31-37) Red Cell Distribution Width 19.8 % (11.5-14.5) Platelet Count 235 x10^3/uL (140-400) Neutrophils (%) (Auto) 75 % (31-73) Lymphocytes (%) (Auto) 20 % (24-48) Monocytes (%) (Auto) 5 % (0-9) Eosinophils (%) (Auto) 1 % (0-3) Basophils (%) (Auto) 0 % (0-3) Neutrophils # (Auto) 6.8 x10^3/uL (1.8-7.7) Lymphocytes # (Auto) 1.8 x10^3/uL (1.0-4.8) Monocytes # (Auto) 0.5 x10^3/uL (0.0-1.1) Eosinophils # (Auto) 0.1 x10^3/uL (0.0-0.7) Basophils # (Auto) 0.0 x10^3/uL (0.0-0.2) Sodium Level 145 mmol/L (136-145) Potassium Level 3.7 mmol/L (3.5-5.1) Chloride Level 106 mmol/L (98-107) Carbon Dioxide Level 32 mmol/L (21-32) Anion Gap 7 (6-14) Blood Urea Nitrogen 30 mg/dL (8-26) Creatinine 1.1 mg/dL (0.7-1.3) Estimated GFR (Cockcroft-Gault) 65.8 Glucose Level 165 mg/dL (70-99) Calcium Level 8.3 mg/dL (8.5-10.1) Magnesium Level 2.2 mg/dL (1.8-2.4) Test 09/25/20 09:40 09/25/20 11:00 09/25/20 12:05 09/25/20 18:30 O2 Saturation 88 % (92-99) Arterial Blood pH 7.47 (7.35-7.45) Arterial Blood pCO2 at Patient Temp 42 mmHg (35-46) Arterial Blood pO2 at Patient Temp 58 mmHg (65-108) Arterial Blood HCO3 30 mmol/L (21-28) Arterial Blood Base Excess 5 mmol/L (-3-3) FiO2 40 White Blood Count 5.8 x10^3/uL (4.0-11.0) Red Blood Count 2.49 x10^6/uL (4.30-5.70) Hemoglobin 7.8 g/dL (13.0-17.5) Hematocrit 23.6 % (39.0-53.0) Mean Corpuscular Volume 95 fL (79-100) Mean Corpuscular Hemoglobin 32 pg (25-35) Mean Corpuscular Hemoglobin Concent 33 g/dL (31-37) Red Cell Distribution Width 18.8 % (11.5-14.5) Platelet Count 218 x10^3/uL (140-400) Neutrophils (%) (Auto) 77 % (31-73) Lymphocytes (%) (Auto) 14 % (24-48) Monocytes (%) (Auto) 5 % (0-9) Eosinophils (%) (Auto) 3 % (0-3) Basophils (%) (Auto) 1 % (0-3) Neutrophils # (Auto) 4.5 x10^3/uL (1.8-7.7) Lymphocytes # (Auto) 0.8 x10^3/uL (1.0-4.8) Monocytes # (Auto) 0.3 x10^3/uL (0.0-1.1) Eosinophils # (Auto) 0.2 x10^3/uL (0.0-0.7) Basophils # (Auto) 0.0 x10^3/uL (0.0-0.2) Prothrombin Time 28.8 SEC (11.7-14.0) Prothromb Time International Ratio 2.8 (0.8-1.1) Sodium Level 141 mmol/L (136-145) Potassium Level 3.2 mmol/L (3.5-5.1) Chloride Level 105 mmol/L (98-107) Carbon Dioxide Level 36 mmol/L (21-32) Anion Gap 0 (6-14) Blood Urea Nitrogen 24 mg/dL (8-26) Creatinine 0.8 mg/dL (0.7-1.3) Estimated GFR (Cockcroft-Gault) 95.0 Glucose Level 156 mg/dL (70-99) Calcium Level 8.3 mg/dL (8.5-10.1) Magnesium Level 2.0 mg/dL (1.8-2.4) Glucose (Fingerstick) 140 mg/dL (70-99) 123 mg/dL (70-99) Test 09/26/20 06:45 09/26/20 08:00 Prothrombin Time 32.3 SEC (11.7-14.0) Prothromb Time International Ratio 3.2 (0.8-1.1) O2 Saturation 98 % (92-99) Arterial Blood pH 7.50 (7.35-7.45) Arterial Blood pCO2 at Patient Temp 36 mmHg (35-46) Arterial Blood pO2 at Patient Temp 100 mmHg (65-108) Arterial Blood HCO3 27 mmol/L (21-28) Arterial Blood Base Excess 4 mmol/L (-3-3) FiO2 45% vent Laboratory Tests Test 09/25/20 11:00 09/25/20 12:05 09/25/20 18:30 09/26/20 06:45 White Blood Count 5.8 x10^3/uL (4.0-11.0) Red Blood Count 2.49 x10^6/uL (4.30-5.70) Hemoglobin 7.8 g/dL (13.0-17.5) Hematocrit 23.6 % (39.0-53.0) Mean Corpuscular Volume 95 fL (79-100) Mean Corpuscular Hemoglobin 32 pg (25-35) Mean Corpuscular Hemoglobin Concent 33 g/dL (31-37) Red Cell Distribution Width 18.8 % (11.5-14.5) Platelet Count 218 x10^3/uL (140-400) Neutrophils (%) (Auto) 77 % (31-73) Lymphocytes (%) (Auto) 14 % (24-48) Monocytes (%) (Auto) 5 % (0-9) Eosinophils (%) (Auto) 3 % (0-3) Basophils (%) (Auto) 1 % (0-3) Neutrophils # (Auto) 4.5 x10^3/uL (1.8-7.7) Lymphocytes # (Auto) 0.8 x10^3/uL (1.0-4.8) Monocytes # (Auto) 0.3 x10^3/uL (0.0-1.1) Eosinophils # (Auto) 0.2 x10^3/uL (0.0-0.7) Basophils # (Auto) 0.0 x10^3/uL (0.0-0.2) Prothrombin Time 28.8 SEC (11.7-14.0) 32.3 SEC (11.7-14.0) Prothromb Time International Ratio 2.8 (0.8-1.1) 3.2 (0.8-1.1) Sodium Level 141 mmol/L (136-145) Potassium Level 3.2 mmol/L (3.5-5.1) Chloride Level 105 mmol/L (98-107) Carbon Dioxide Level 36 mmol/L (21-32) Anion Gap 0 (6-14) Blood Urea Nitrogen 24 mg/dL (8-26) Creatinine 0.8 mg/dL (0.7-1.3) Estimated GFR (Cockcroft-Gault) 95.0 Glucose Level 156 mg/dL (70-99) Calcium Level 8.3 mg/dL (8.5-10.1) Magnesium Level 2.0 mg/dL (1.8-2.4) Glucose (Fingerstick) 140 mg/dL (70-99) 123 mg/dL (70-99) Test 09/26/20 08:00 O2 Saturation 98 % (92-99) Arterial Blood pH 7.50 (7.35-7.45) Arterial Blood pCO2 at Patient Temp 36 mmHg (35-46) Arterial Blood pO2 at Patient Temp 100 mmHg (65-108) Arterial Blood HCO3 27 mmol/L (21-28) Arterial Blood Base Excess 4 mmol/L (-3-3) FiO2 45% vent Medications Active Scripts Medications Dose Route/Sig Max Daily Dose Days Date Category Amiodarone Hcl 200 Mg Tablet 400 Mg PO DAILY 09/18/20 Rx [Warfarin Per Pharmacy] 1 EACH Each 1 Each MC PRN DAILY PRN 30 09/18/20 Rx Clopidogrel (Clopidogrel Bisulfate) 75 Mg Tablet 75 Mg PO DAILYWBKFT 09/18/20 Rx Glimepiride 4 Mg Tablet 1 Tab PO DAILY 09/13/20 Reported Furosemide 40 Mg Tablet 1 Tab PO BID 09/13/20 Reported Symbicort 160-4.5 Mcg Inhaler (Budesonide/Formoterol Fumarate) 10.2 Gm Hfa.aer.ad 1 Puff INH DAILY 09/13/20 Reported Losartan-Hctz 100-12.5 Mg Tab (Losartan/Hydrochlorothiazide) 1 Each Tablet 1 Tab PO DAILY 09/13/20 Reported Nitrofurantoin [place]-Mcr 100 Mg (Nitrofurantoin Monohyd/M-Cryst) 100 Mg Capsule 1 Cap PO BID 09/13/20 Reported Betamethasone Valerate 60 Ml Lotion 1 TP QHS 09/13/20 Reported Atorvastatin Calcium 40 Mg Tablet 1 Tab PO DAILY 09/13/20 Reported Diltiazem 24Hr Cd (Diltiazem HCl) 240 Mg Cap.er.24h 1 Cap PO DAILY 09/13/20 Reported Nystop (Nystatin) 60 Gm Powder 1 Sudheer TP BID 09/13/20 Reported Humalog (Insulin Lispro) 100 Unit/1 Ml Insuln.pen 0 Units SQ TIDWMEALS 30 08/06/18 Rx Duoneb 0.5-3(2.5) Mg/3 Ml (Albuterol/Ipratropium) 3 Ml Ampul.neb 3 Ml NEB RTQID 30 08/06/18 Rx Aspirin 325 Mg Tablet 325 Mg PO DAILYWBKFT 30 07/22/17 Rx Metoprolol Tartrate 25 Mg Tablet 25 Mg PO BID 30 07/22/17 Rx Montelukast Sodium Tablet (Montelukast Sodium) 10 Mg Tablet 10 Mg PO QHS 07/22/17 Rx Gabapentin 600 Mg Tablet 600 Mg PO BID 30 07/22/17 Rx Pepcid (Famotidine) 20 Mg Tablet 20 Mg PO BID 05/17/13 Reported Impression . 1. Acute on chronic respiratory failure secondary to multifactorial etiologies including hypoglycemic encephalopathy. He also needs to be ruled out for any ischemic stroke. Coded this morning 2. Possible sepsis. 3. Hypoglycemia. 4. The patient with prior history of cerebrovascular accident with left-sided weakness. 5. Underlying chronic obstructive pulmonary disease. 6. Morbid obesity. 7. Peripheral vascular disease. 8. Abnormal CT chest with bibasilar atelectasis. No significant mucus plugging. Tiny pleural effusion seen. 9. Persistent encephalopathy. Needs to rule out ischemic stroke Plan . Updated 09/26/20 Continue current vent support 12/500/45/5 Pt. is not best canidate for weaning/extubation, as he is high risk for re- intubation 2/2 lack of ability to protect his own airway Follow CXR/ABG --reduce RR to 10, reduce Fi02 to 40 and TD to 450 Follow neurology recs-- MRI neg Continue ABX DVT/GI PPX: warfarin DNR D/W RN and RT If there is no improvement in mental status by end of the week, may need tracheostomy. Discussed with Dr. Rivers as well. He agrees with DNR. CC time 30 mins Updated 09/25/2020 1. Remains unresponsive despite off sedation. Cannot exclude ischemic stroke. Neurology is following. In addition, patient had another CODE BLUE this morning with 2 rounds of CPR and 1 round of epinephrine and atropine. 2. Continue present assist control mode and make necessary adjustments. 3. Empiric antibiotics. 4. Deep venous thrombosis prophylaxis. 5. The patient does not have any family and there is no one to discuss about advanced directives. 6. We will be following the patient in the ICU. 7. Would recommend MRI of the head to rule out any ischemic stroke. Critical care time 35 minutes including review of the chart, labs, x-rays and decision making. Patient has no DPOA. Patient has extremely poor prognosis due to multifactorial comorbidities. In addition he clinically has another stroke and coded this morning. In my opinion continuing present aggressive care would be futile care. I would recommend that he should be made DNR. Have discussed with patient's hospitalist Dr. Li he agrees. I will also discuss with neurology. CLINTON PALAFOX MD Sep 26, 2020 10:10
--- NOTE | 2020-09-26 10:52 | PDOC ---
[facility] [facility] PROGRESS NOTE Date of Service DOS: DATE: 09/26/20 TIME: 10:49 Chief Complaint Chief Complaint Acute metabolic, infectious encephalopathy Acute respiratory failure Healthcare associated pneumonia, possible aspiration, possible gram-negative organisms Acute hypoglycemia Hypokalemia Elevated troponins concerning for type II demand ischemia Severe protein malnutrition Morbid obesity AAA, 4 cm History of diabetes mellitus type 2 History of dyslipidemia history of hypertension History of recent STEMI History of CAD with recent stent placement Admit to ICU for further management Hypoglycemia protocol Continue empiric IV antibiotics with concern for aspiration pneumonia Pulmonology consult for vent management IV electrolyte replacement as needed Consider cardiology consult if troponins increase Lovenox for DVT prophylaxis Protonix while on the vent GI prophylaxis N.p.o. Full code Discussed with RN and SW Disposition inpatient management as above Surrogate decision maker is undesignated History of Present Illness History of Present Illness Patient is a 70-year-old male with a recent prolonged hospitalization for STEMI and respiratory failure for which she was treated with arterial thrombolysis for a right leg popliteal artery aneurysm and also had left heart cath with p lacement of a stent in the LAD and RCA comes in today after he was found obtunded at his assisted facility. Apparently according to the nursing facility patient was in his usual state of health and he was conversational but then became altered. His blood glucose was found to be in the 30s. Glucose tabs and glucagon was given in route and his GCS reported at 6. Upon arrival patient's mental status did not improve and he was eventually intubated for airway protection. Of note EMS was bagging the patient through the nasal access. In the ED, patient was placed on a vent and pulmonology was consulted. Patient was also taken to the CT scanner for sanders scanning. Patient was started to wake up on the vent and sedation was ordered. 09/23/20 Patient examined at bedside. Intubated. Not on any sedation but unresponsive. Neurology consult in place. 09/24/20 Patient seen and examined at bedside. Remains intubated he is off sedation but still remains unresponsive. Planning for MRI brain in the morning. Further plan to be determined by MRI. 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 Plan of care discussed with bedside RN 09/25/20: Afebrile, currently breathing on ventilator with FiO2 50%, PEEP 5. Had CODE BLUE in ICU this morning; received 2 rounds of CPR, epinephrine, and atropine with ROSC. I believe MRI will be obtained today, per neurology. I had discussion with Dr. Rubalcava about his very poor prognosis due to multifactorial comorbidities. In our opinion continuing with present aggressive care would be futile. I would recommend that he should be made DNR, and after discussion with Dr. Rubalcava he agrees. Since there is no family and no one to discuss goals of care, we agreed to make patient DNR. Critical care time 30 minutes spent reviewing charts, reviewing labs, imaging, discussion with RN. 09/26/2020: Afebrile. Still on vent, with FiO2 45%, PEEP 5. After discussion with Dr. Rubalcava yesterday, patient was made DNR. In the ED is likely a poor candidate for weaning trials may need trach in near future if no significant improvement. MRI with no acute findings. Continue with pressure support and IV antibiotics. Critical care time 30 minutes reviewing charts, labs, examination, discussion with RN. Vitals/I&O Vitals/I&O: Vital Signs Date Time Temp Pulse Resp B/P (MAP) Pulse Ox O2 Delivery O2 Flow Rate FiO2 09/26/20 08:36 98 Ventilator 09/25/20 18:24 92 16 127/66 (86) 09/25/20 16:00 99.0 99.0 I & O 09/25/20 09/25/20 09/26/20 15:00 23:00 07:00 Intake Total 0 ml Output Total 105 ml 105 ml Balance -105 ml -105 ml Physical Exam General: Other (Intubated, nonresponsive) Heart: Regular rate, Normal S1, Normal S2 Lungs: Other (Intubated) Abdomen: Normal bowel sounds, Soft Extremities: No clubbing, No edema, Normal pulses Skin: No rashes, No significant lesion Labs Labs: Laboratory Tests Test 09/25/20 11:00 09/25/20 12:05 09/25/20 18:30 09/26/20 06:45 White Blood Count 5.8 x10^3/uL (4.0-11.0) Red Blood Count 2.49 x10^6/uL (4.30-5.70) Hemoglobin 7.8 g/dL (13.0-17.5) Hematocrit 23.6 % (39.0-53.0) Mean Corpuscular Volume 95 fL (79-100) Mean Corpuscular Hemoglobin 32 pg (25-35) Mean Corpuscular Hemoglobin Concent 33 g/dL (31-37) Red Cell Distribution Width 18.8 % (11.5-14.5) Platelet Count 218 x10^3/uL (140-400) Neutrophils (%) (Auto) 77 % (31-73) Lymphocytes (%) (Auto) 14 % (24-48) Monocytes (%) (Auto) 5 % (0-9) Eosinophils (%) (Auto) 3 % (0-3) Basophils (%) (Auto) 1 % (0-3) Neutrophils # (Auto) 4.5 x10^3/uL (1.8-7.7) Lymphocytes # (Auto) 0.8 x10^3/uL (1.0-4.8) Monocytes # (Auto) 0.3 x10^3/uL (0.0-1.1) Eosinophils # (Auto) 0.2 x10^3/uL (0.0-0.7) Basophils # (Auto) 0.0 x10^3/uL (0.0-0.2) Prothrombin Time 28.8 SEC (11.7-14.0) 32.3 SEC (11.7-14.0) Prothromb Time International Ratio 2.8 (0.8-1.1) 3.2 (0.8-1.1) Sodium Level 141 mmol/L (136-145) Potassium Level 3.2 mmol/L (3.5-5.1) Chloride Level 105 mmol/L (98-107) Carbon Dioxide Level 36 mmol/L (21-32) Anion Gap 0 (6-14) Blood Urea Nitrogen 24 mg/dL (8-26) Creatinine 0.8 mg/dL (0.7-1.3) Estimated GFR (Cockcroft-Gault) 95.0 Glucose Level 156 mg/dL (70-99) Calcium Level 8.3 mg/dL (8.5-10.1) Magnesium Level 2.0 mg/dL (1.8-2.4) Glucose (Fingerstick) 140 mg/dL (70-99) 123 mg/dL (70-99) Test 09/26/20 08:00 O2 Saturation 98 % (92-99) Arterial Blood pH 7.50 (7.35-7.45) Arterial Blood pCO2 at Patient Temp 36 mmHg (35-46) Arterial Blood pO2 at Patient Temp 100 mmHg (65-108) Arterial Blood HCO3 27 mmol/L (21-28) Arterial Blood Base Excess 4 mmol/L (-3-3) FiO2 45% vent Assessment and Plan Assessmemt and Plan Problems Medical Problems: (1) NSTEMI (non-ST elevated myocardial infarction) Status: Acute (2) Obtundation Status: Acute (3) Respiratory arrest Status: Acute Comment Review of Relevant I have reviewed the following items denise (where applicable) has been applied. Justifications for Admission Other Justification Hypoglycemia and altered mental status. NAIDA LÓPEZ MD Sep 26, 2020 10:52
[2020-09-26] MEDS: INSULIN LISPRO 300 UNITS/3 ML VIAL. SQ SCH ×3 (12:00→18:00)
--- NOTE | 2020-09-26 14:00 | NUR ---
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 LABS: Last INR: 3.2 Last HGB: 7.8 Last HCT: 23.6 Last PLT: 218 Last dose of 5 mg given on 09/24/20 at 1742 Vitamin K given: N A:INR of 3.2 is above desired range of 2 - 3. Warfarin held 09/25 after large INR jump with warfarin 5 mg dose on 09/24. INR increase today is less drastic than previous. Will order warfarin dose for today to prevent INR from falling, argatroban drip, etc. P: Warfarin dose: 1 mg Today at 1600 Bridge Therapy: None Next INR due 09/27/20 Pharmacy anticoagulation service will continue to follow. HERBERT PAYNE RPH, 09/26/20 1400
[2020-09-26] MEDS ORDERED: WARFARIN 1 MG TABLET. PO ONE (16:00)
--- NOTE | 2020-09-26 16:24 | NUR ---
SS following up with discharge planning. SS reviewed pt chart and discussed with pt RN. Pt is currently on the vent at 40%. COVID19 negative. DNR now. Pt on IV Cefepime. No sedation. Per RN, will continue to monitor and assess at the end of the week for trach and peg. SS will continue to follow for discharge planning.
[2020-09-26] MEDS: PANTOPRAZOLE IV PUSH 40 MG VIAL. IVP SCH (17:17)
[2020-09-26] MEDS: IV DEXTROSE 5 %-0.45 % NACL 1,000 ML IV SCH (18:55)
--- NOTE | 2020-09-26 20:02 | NUR ---
after turning patient- noted increase in RR, coughing and Pulse. Called Khadar. orders received
[2020-09-26] MEDS: PROPOFOL 100 ML IV PRN (20:15)
[2020-09-27] VITALS (21 sets, daily range): BP systolic 94–136; BP diastolic 52–78
[2020-09-27] MEDS: INSULIN LISPRO 300 UNITS/3 ML VIAL. SQ SCH ×5 (05:36→23:52)
[2020-09-27] MEDS: PROPOFOL 100 ML IV PRN ×2 (05:49→12:49)
[2020-09-27] MEDS: CEFEPIME HCL IV Push 1 GM VIAL. IVP SCH ×3 (05:50→22:00)
[2020-09-27 06:43] LABS: HEMATOCRIT 22.2 % (39.0-53.0); HEMOGLOBIN 7.3 g/dL (13.0-17.5); RED BLOOD COUNT 2.33 x10^6/uL (4.30-5.70); RED CELL DISTRIBUTION WIDTH 18.5 % (11.5-14.5); WHITE BLOOD COUNT 4.6 x10^3/uL (4.0-11.0)
[2020-09-27 07:03] LABS: PROTHROMBIN TIME PATIENT 28.6 SEC (11.7-14.0)
--- NOTE | 2020-09-27 07:09 | PDOC ---
PULMONARY PROGRESS NOTES DATE: 09/27/20 TIME: 07:07 Subjective Pt. remains on vent support 40%/5 Low-grade fever overnight S/P cardiac arrest 09/26/20, Nursing reports ventilatory asynchrony, placed on low-dose propofol overnight Vitals Vital Signs Date Time Temp Pulse Resp B/P (MAP) Pulse Ox O2 Delivery O2 Flow Rate FiO2 09/27/20 06:00 86 22 116/69 (85) 100 Ventilator 09/27/20 04:00 99.0 99.0 Comments vent Lungs: Other (Intubated) Cardiovascular: S1, S2 Abdomen: Soft, Non-tender, Other (Obese) Extremities: Other (1+ edema) Labs Laboratory Tests Test 09/25/20 07:11 09/25/20 09:40 09/25/20 11:00 09/25/20 12:05 Glucose (Fingerstick) 146 mg/dL (70-99) 140 mg/dL (70-99) O2 Saturation 88 % (92-99) Arterial Blood pH 7.47 (7.35-7.45) Arterial Blood pCO2 at Patient Temp 42 mmHg (35-46) Arterial Blood pO2 at Patient Temp 58 mmHg (65-108) Arterial Blood HCO3 30 mmol/L (21-28) Arterial Blood Base Excess 5 mmol/L (-3-3) FiO2 40 White Blood Count 5.8 x10^3/uL (4.0-11.0) Red Blood Count 2.49 x10^6/uL (4.30-5.70) Hemoglobin 7.8 g/dL (13.0-17.5) Hematocrit 23.6 % (39.0-53.0) Mean Corpuscular Volume 95 fL (79-100) Mean Corpuscular Hemoglobin 32 pg (25-35) Mean Corpuscular Hemoglobin Concent 33 g/dL (31-37) Red Cell Distribution Width 18.8 % (11.5-14.5) Platelet Count 218 x10^3/uL (140-400) Neutrophils (%) (Auto) 77 % (31-73) Lymphocytes (%) (Auto) 14 % (24-48) Monocytes (%) (Auto) 5 % (0-9) Eosinophils (%) (Auto) 3 % (0-3) Basophils (%) (Auto) 1 % (0-3) Neutrophils # (Auto) 4.5 x10^3/uL (1.8-7.7) Lymphocytes # (Auto) 0.8 x10^3/uL (1.0-4.8) Monocytes # (Auto) 0.3 x10^3/uL (0.0-1.1) Eosinophils # (Auto) 0.2 x10^3/uL (0.0-0.7) Basophils # (Auto) 0.0 x10^3/uL (0.0-0.2) Prothrombin Time 28.8 SEC (11.7-14.0) Prothromb Time International Ratio 2.8 (0.8-1.1) Sodium Level 141 mmol/L (136-145) Potassium Level 3.2 mmol/L (3.5-5.1) Chloride Level 105 mmol/L (98-107) Carbon Dioxide Level 36 mmol/L (21-32) Anion Gap 0 (6-14) Blood Urea Nitrogen 24 mg/dL (8-26) Creatinine 0.8 mg/dL (0.7-1.3) Estimated GFR (Cockcroft-Gault) 95.0 Glucose Level 156 mg/dL (70-99) Calcium Level 8.3 mg/dL (8.5-10.1) Magnesium Level 2.0 mg/dL (1.8-2.4) Test 09/25/20 18:30 09/26/20 06:45 09/26/20 08:00 09/26/20 18:59 Glucose (Fingerstick) 123 mg/dL (70-99) 109 mg/dL (70-99) Prothrombin Time 32.3 SEC (11.7-14.0) Prothromb Time International Ratio 3.2 (0.8-1.1) O2 Saturation 98 % (92-99) Arterial Blood pH 7.50 (7.35-7.45) Arterial Blood pCO2 at Patient Temp 36 mmHg (35-46) Arterial Blood pO2 at Patient Temp 100 mmHg (65-108) Arterial Blood HCO3 27 mmol/L (21-28) Arterial Blood Base Excess 4 mmol/L (-3-3) FiO2 45% vent Test 09/27/20 00:00 09/27/20 06:00 09/27/20 06:30 Glucose (Fingerstick) 134 mg/dL (70-99) White Blood Count 4.6 x10^3/uL (4.0-11.0) Red Blood Count 2.33 x10^6/uL (4.30-5.70) Hemoglobin 7.3 g/dL (13.0-17.5) Hematocrit 22.2 % (39.0-53.0) Mean Corpuscular Volume 95 fL (79-100) Mean Corpuscular Hemoglobin 31 pg (25-35) Mean Corpuscular Hemoglobin Concent 33 g/dL (31-37) Red Cell Distribution Width 18.5 % (11.5-14.5) Platelet Count 227 x10^3/uL (140-400) Prothrombin Time 28.6 SEC (11.7-14.0) Prothromb Time International Ratio 2.8 (0.8-1.1) Laboratory Tests Test 09/26/20 08:00 09/26/20 18:59 09/27/20 00:00 09/27/20 06:00 O2 Saturation 98 % (92-99) Arterial Blood pH 7.50 (7.35-7.45) Arterial Blood pCO2 at Patient Temp 36 mmHg (35-46) Arterial Blood pO2 at Patient Temp 100 mmHg (65-108) Arterial Blood HCO3 27 mmol/L (21-28) Arterial Blood Base Excess 4 mmol/L (-3-3) FiO2 45% vent Glucose (Fingerstick) 109 mg/dL (70-99) 134 mg/dL (70-99) White Blood Count 4.6 x10^3/uL (4.0-11.0) Red Blood Count 2.33 x10^6/uL (4.30-5.70) Hemoglobin 7.3 g/dL (13.0-17.5) Hematocrit 22.2 % (39.0-53.0) Mean Corpuscular Volume 95 fL (79-100) Mean Corpuscular Hemoglobin 31 pg (25-35) Mean Corpuscular Hemoglobin Concent 33 g/dL (31-37) Red Cell Distribution Width 18.5 % (11.5-14.5) Platelet Count 227 x10^3/uL (140-400) Test 09/27/20 06:30 Prothrombin Time 28.6 SEC (11.7-14.0) Prothromb Time International Ratio 2.8 (0.8-1.1) Medications Active Scripts Medications Dose Route/Sig Max Daily Dose Days Date Category Amiodarone Hcl 200 Mg Tablet 400 Mg PO DAILY 09/18/20 Rx [Warfarin Per Pharmacy] 1 EACH Each 1 Each MC PRN DAILY PRN 09/18/20 Rx Clopidogrel (Clopidogrel Bisulfate) 75 Mg Tablet 75 Mg PO DAILYWBKFT 09/18/20 Rx Glimepiride 4 Mg Tablet 1 Tab PO DAILY 09/13/20 Reported Furosemide 40 Mg Tablet 1 Tab PO BID 09/13/20 Reported Symbicort 160-4.5 Mcg Inhaler (Budesonide/Formoterol Fumarate) 10.2 Gm Hfa.aer.ad 1 Puff INH DAILY 09/13/20 Reported Losartan-Hctz 100-12.5 Mg Tab (Losartan/Hydrochlorothiazide) 1 Each Tablet 1 Tab PO DAILY 09/13/20 Reported Nitrofurantoin [place]-Mcr 100 Mg (Nitrofurantoin Monohyd/M-Cryst) 100 Mg Capsule 1 Cap PO BID 09/13/20 Reported Betamethasone Valerate 60 Ml Lotion 1 TP QHS 09/13/20 Reported Atorvastatin Calcium 40 Mg Tablet 1 Tab PO DAILY 09/13/20 Reported Diltiazem 24Hr Cd (Diltiazem HCl) 240 Mg Cap.er.24h 1 Cap PO DAILY 09/13/20 Reported Nystop (Nystatin) 60 Gm Powder 1 Sudheer TP BID 09/13/20 Reported Humalog (Insulin Lispro) 100 Unit/1 Ml Insuln.pen 0 Units SQ TIDWMEALS 08/06/18 Rx Duoneb 0.5-3(2.5) Mg/3 Ml (Albuterol/Ipratropium) 3 Ml Ampul.neb 3 Ml NEB RTQID 08/06/18 Rx Aspirin 325 Mg Tablet 325 Mg PO DAILYWBKFT 30 07/22/17 Rx Metoprolol Tartrate 25 Mg Tablet 25 Mg PO BID 07/22/17 Rx Montelukast Sodium Tablet (Montelukast Sodium) 10 Mg Tablet 10 Mg PO QHS 07/22/17 Rx Gabapentin 600 Mg Tablet 600 Mg PO BID 30 07/22/17 Rx Pepcid (Famotidine) 20 Mg Tablet 20 Mg PO BID 05/17/13 Reported Impression . 1. Acute on chronic respiratory failure secondary to multifactorial etiologies including hypoglycemic encephalopathy. He also needs to be ruled out for any ischemic stroke. 2. Possible sepsis--- ID following, on antibiotics 3. Hypoglycemia. 4. The patient with prior history of cerebrovascular accident with left-sided weakness. 5. Underlying chronic obstructive pulmonary disease. 6. Morbid obesity. 7. Peripheral vascular disease. 8. Abnormal CT chest with bibasilar atelectasis. No significant mucus plugging. Tiny pleural effusion seen. 9. Persistent encephalopathy. Needs to rule out ischemic stroke Plan . Updated 09/27/20 Continue current vent support 10450/40/5 Pt. is not best candidate for weaning/extubation, as he is high risk for re- intubation 2/2 lack of ability to protect his own airway, may require tracheostomy Follow CXR/ABG --make changes as needed Follow neurology recs-- MRI neg Continue ABX on cefepime DVT/GI PPX: warfarin D/W RN and RT Patient is a DNR. CC time 30 mins CLINTON PALAFOX MD Sep 27, 2020 07:09
--- NOTE | 2020-09-27 07:31 | RAD ---
XR CHEST 1V INDICATION: Reason: resp. failure 115 / Spl. Instructions: / History: . COMPARISON STUDY: 09/25/2020. FINDINGS: Life Support Devices: Stable endotracheal tube, enteric tube, right IJ central venous catheter. Lungs: Normal lung volume. Improving interstitial prominence, persistent left basilar opacities. Pleura: Small left pleural effusion. Heart and Mediastinum: Stable cardiomediastinal silhouette and great vessels. Bones and Soft Tissues: Stable regional skeleton and soft tissues. IMPRESSION: 1.Improving interstitial prominence, persistent left basilar opacities. 2. Small left pleural effusion. 3. Stable life support devices. Electronically signed by: Jaden Sanford MD (09/27/2020 7:28 AM) [facility]
[2020-09-27 08:15] LABS: CALCIUM 7.9 mg/dL (8.5-10.1); CREATININE 0.7 mg/dL (0.7-1.3); GFR 110.9
[2020-09-27 08:16] LABS: POTASSIUM 2.8 mmol/L (3.5-5.1)
[2020-09-27 08:26] LABS: BASE EXCESS ABG 5 mmol/L (-3-3); HCO3 ABG 29 mmol/L (21-28); PCO2 ABG 40 mmHg (35-46); PO2 ABG 88 mmHg (65-108); SAT O2 ABG 96 % (92-99)
--- NOTE | 2020-09-27 08:32 | NUR ---
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 Target range for this patient is: 2 -3 P: Warfarin dose: 2 mg Today at 1600 Bridge Therapy: None Next INR due 09/28/20. Pharmacy anticoagulation service will continue to follow. PEDRO LEE RPH, 09/27/20 [id number]
--- NOTE | 2020-09-27 08:59 | PDOC ---
[employer] PROGRESS NOTE Date of Service DOS: DATE: 09/27/20 TIME: 08:55 Chief Complaint Chief Complaint Acute metabolic, infectious encephalopathy Acute respiratory failure Healthcare associated pneumonia, possible aspiration, possible gram-negative organisms Acute hypoglycemia Hypokalemia Elevated troponins concerning for type II demand ischemia Severe protein malnutrition Morbid obesity AAA, 4 cm History of diabetes mellitus type 2 History of dyslipidemia history of hypertension History of recent STEMI History of CAD with recent stent placement Admit to ICU for further management Hypoglycemia protocol Continue empiric IV antibiotics with concern for aspiration pneumonia Pulmonology consult for vent management IV electrolyte replacement as needed Consider cardiology consult if troponins increase Lovenox for DVT prophylaxis Protonix while on the vent GI prophylaxis N.p.o. Full code Discussed with RN and SW Disposition inpatient management as above Surrogate decision maker is undesignated History of Present Illness History of Present Illness Patient is a 70-year-old male with a recent prolonged hospitalization for STEMI and respiratory failure for which she was treated with arterial thrombolysis for a right leg popliteal artery aneurysm and also had left heart cath with p lacement of a stent in the LAD and RCA comes in today after he was found obtunded at his assisted facility. Apparently according to the nursing facility patient was in his usual state of health and he was conversational but then became altered. His blood glucose was found to be in the 30s. Glucose tabs and glucagon was given in route and his GCS reported at 6. Upon arrival patient's mental status did not improve and he was eventually intubated for airway protection. Of note EMS was bagging the patient through the nasal access. In the ED, patient was placed on a vent and pulmonology was consulted. Patient was also taken to the CT scanner for sanders scanning. Patient was started to wake up on the vent and sedation was ordered. 09/23/20 Patient examined at bedside. Intubated. Not on any sedation but unresponsive. Neurology consult in place. 09/24/20 Patient seen and examined at bedside. Remains intubated he is off sedation but still remains unresponsive. Planning for MRI brain in the morning. Further plan to be determined by MRI. 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 Plan of care discussed with bedside RN 09/25/20: Afebrile, currently breathing on ventilator with FiO2 50%, PEEP 5. Had CODE BLUE in ICU this morning; received 2 rounds of CPR, epinephrine, and atropine with ROSC. I believe MRI will be obtained today, per neurology. I had discussion with Dr. Rubalcava about his very poor prognosis due to multifactorial comorbidities. In our opinion continuing with present aggressive care would be futile. I would recommend that he should be made DNR, and after discussion with Dr. Rubalcava he agrees. Since there is no family and no one to discuss goals of care, we agreed to make patient DNR. Critical care time 30 minutes spent reviewing charts, reviewing labs, imaging, discussion with RN. 09/26/2020: Afebrile. Still on vent, with FiO2 45%, PEEP 5. After discussion with Dr. Rubalcava yesterday, patient was made DNR. In the ED is likely a poor candidate for weaning trials may need trach in near future if no significant improvement. MRI with no acute findings. Continue with pressure support and IV antibiotics. Critical care time 30 minutes reviewing charts, labs, examination, discussion with RN. 09/27/2020: Afebrile. On vent with FiO2 40%, PEEP 5. Potassium 2.8 today, will replace. Warfarin has been resumed. Discussed with pharmacy, will resume aspir in and Plavix. May need tracheostomy by the end of the week if no improvement in mental status. Chest x-ray today showed improving interstitial prominence, persistent left basilar opacities. Continue IV cefepime and supportive care. Critical care time 30 minutes reviewing charts, labs, examination, discussion with RN. Vitals/I&O Vitals/I&O: Vital Signs Date Time Temp Pulse Resp B/P (MAP) Pulse Ox O2 Delivery O2 Flow Rate FiO2 09/27/20 08:12 99 Ventilator 09/27/20 06:00 86 22 116/69 (85) 09/27/20 04:00 99.0 99.0 I & O 09/26/20 09/26/20 09/27/20 15:00 23:00 07:00 Intake Total 0 ml 238 ml Output Total 292 ml 350 ml 300 ml Balance -292 ml -350 ml -62 ml Physical Exam General: Other (Intubated, nonresponsive) Heart: Regular rate, Normal S1, Normal S2 Lungs: Other (Intubated) Abdomen: Normal bowel sounds, Soft Extremities: No clubbing, No edema, Normal pulses Skin: No rashes, No significant lesion Labs Labs: Laboratory Tests Test 09/26/20:59 09/27/20 00:00 09/27/20 06:00 09/27/20 06:30 Glucose (Fingerstick) 109 mg/dL (70-99) 134 mg/dL (70-99) White Blood Count 4.6 x10^3/uL (4.0-11.0) Red Blood Count 2.33 x10^6/uL (4.30-5.70) Hemoglobin 7.3 g/dL (13.0-17.5) Hematocrit 22.2 % (39.0-53.0) Mean Corpuscular Volume 95 fL (79-100) Mean Corpuscular Hemoglobin 31 pg (25-35) Mean Corpuscular Hemoglobin Concent 33 g/dL (31-37) Red Cell Distribution Width 18.5 % (11.5-14.5) Platelet Count 227 x10^3/uL (140-400) Sodium Level 145 mmol/L (136-145) Potassium Level 2.8 mmol/L (3.5-5.1) Chloride Level 108 mmol/L (98-107) Carbon Dioxide Level 32 mmol/L (21-32) Anion Gap 5 (6-14) Blood Urea Nitrogen 17 mg/dL (8-26) Creatinine 0.7 mg/dL (0.7-1.3) Estimated GFR (Cockcroft-Gault) 110.9 Glucose Level 130 mg/dL (70-99) Calcium Level 7.9 mg/dL (8.5-10.1) Prothrombin Time 28.6 SEC (11.7-14.0) Prothromb Time International Ratio 2.8 (0.8-1.1) Assessment and Plan Assessmemt and Plan Problems Medical Problems: (1) NSTEMI (non-ST elevated myocardial infarction) Status: Acute (2) Obtundation Status: Acute (3) Respiratory arrest Status: Acute Comment Review of Relevant I have reviewed the following items denise (where applicable) has been applied. Medications: Current Medications Medications (Trade) Dose Ordered Sig/Dru Route PRN Reason Start Time Stop Time Status Last Admin Dose Admin Warfarin Sodium (Coumadin) 1 mg 1X WARF ONCE PO 09/26/20 16:00 09/26/20 16:01 DC 09/26/20 16:00 Propofol 100 ml @ 3.174 mls/ hr CONT PRN IV PER PROTOCOL 09/26/20 20:15 09/27/20 05:49 Justifications for Admission Other Justification Hypoglycemia and altered mental status. NAIDA LÓPEZ MD Sep 27, 2020 08:59
[2020-09-27 09:06] LABS: FIO2 ABG 40/VENT
--- NOTE | 2020-09-27 09:44 | PDOC ---
PROGRESS NOTES Date of Service DATE: 09/27/20 TIME: 09:43 Assessment Problems Medical Problems: (1) NSTEMI (non-ST elevated myocardial infarction) Status: Acute (2) Obtundation Status: Acute (3) Respiratory arrest Status: Acute Found obtunded at [facility], unresponsive, no new stroke on MRI Last admit had prolonged encephalopathy following the development of cardiogenic shock, STEMI, with negative EEG and CT head Remote history of seizures Last admit I felt there was a component of critical illness neuropathy/myopathy Respiratory failure LAST ADMIT also had: septic shock, leukocytosis, lactic acidosis, acute kidney injury, 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, thrombocytopenia (heparin-induced), hematuria, anemia, hyperbilirubinemia Plan Patient is now DO NOT RESUSCITATE Continue current regimen Subjective none Objective Vital Signs Date Time Temp Pulse Resp B/P (MAP) Pulse Ox O2 Delivery O2 Flow Rate FiO2 09/27/20 09:37 98 Ventilator 09/27/20 06:00 86 22 116/69 (85) 09/27/20 04:00 99.0 99.0 Intake and Output 09/27/20 07:00 Intake Total 238 ml Output Total 942 ml Balance -704 ml Intake Oral 0 ml IV Total 102 ml Tube Feeding 136 ml Output Urine Total 942 ml PHYSICAL EXAM Intubated, on sedation, unresponsive PERRL. EOMI. CN: no focal findings. Muscle tone: normal. Muscle strength: Slight spontaneous movements DTR: 1+ Plantar reflex: Silent Gait: not examined Sensory exam: Not testable Cerebellar: not testable Review of Relevant I have reviewed the following items denise (where applicable) has been applied. Labs Laboratory Tests Test 09/25/20 11:00 09/25/20 12:05 09/25/20 18:30 09/26/20 06:45 White Blood Count 5.8 x10^3/uL (4.0-11.0) Red Blood Count 2.49 x10^6/uL (4.30-5.70) Hemoglobin 7.8 g/dL (13.0-17.5) Hematocrit 23.6 % (39.0-53.0) Mean Corpuscular Volume 95 fL (79-100) Mean Corpuscular Hemoglobin 32 pg (25-35) Mean Corpuscular Hemoglobin Concent 33 g/dL (31-37) Red Cell Distribution Width 18.8 % (11.5-14.5) Platelet Count 218 x10^3/uL (140-400) Neutrophils (%) (Auto) 77 % (31-73) Lymphocytes (%) (Auto) 14 % (24-48) Monocytes (%) (Auto) 5 % (0-9) Eosinophils (%) (Auto) 3 % (0-3) Basophils (%) (Auto) 1 % (0-3) Neutrophils # (Auto) 4.5 x10^3/uL (1.8-7.7) Lymphocytes # (Auto) 0.8 x10^3/uL (1.0-4.8) Monocytes # (Auto) 0.3 x10^3/uL (0.0-1.1) Eosinophils # (Auto) 0.2 x10^3/uL (0.0-0.7) Basophils # (Auto) 0.0 x10^3/uL (0.0-0.2) Prothrombin Time 28.8 SEC (11.7-14.0) 32.3 SEC (11.7-14.0) Prothromb Time International Ratio 2.8 (0.8-1.1) 3.2 (0.8-1.1) Sodium Level 141 mmol/L (136-145) Potassium Level 3.2 mmol/L (3.5-5.1) Chloride Level 105 mmol/L (98-107) Carbon Dioxide Level 36 mmol/L (21-32) Anion Gap 0 (6-14) Blood Urea Nitrogen 24 mg/dL (8-26) Creatinine 0.8 mg/dL (0.7-1.3) Estimated GFR (Cockcroft-Gault) 95.0 Glucose Level 156 mg/dL (70-99) Calcium Level 8.3 mg/dL (8.5-10.1) Magnesium Level 2.0 mg/dL (1.8-2.4) Glucose (Fingerstick) 140 mg/dL (70-99) 123 mg/dL (70-99) Test 09/26/20 08:00 09/26/20 18:59 09/27/20 00:00 09/27/20 06:00 O2 Saturation 98 % (92-99) Arterial Blood pH 7.50 (7.35-7.45) Arterial Blood pCO2 at Patient Temp 36 mmHg (35-46) Arterial Blood pO2 at Patient Temp 100 mmHg (65-108) Arterial Blood HCO3 27 mmol/L (21-28) Arterial Blood Base Excess 4 mmol/L (-3-3) FiO2 45% vent Glucose (Fingerstick) 109 mg/dL (70-99) 134 mg/dL (70-99) White Blood Count 4.6 x10^3/uL (4.0-11.0) Red Blood Count 2.33 x10^6/uL (4.30-5.70) Hemoglobin 7.3 g/dL (13.0-17.5) Hematocrit 22.2 % (39.0-53.0) Mean Corpuscular Volume 95 fL (79-100) Mean Corpuscular Hemoglobin 31 pg (25-35) Mean Corpuscular Hemoglobin Concent 33 g/dL (31-37) Red Cell Distribution Width 18.5 % (11.5-14.5) Platelet Count 227 x10^3/uL (140-400) Sodium Level 145 mmol/L (136-145) Potassium Level 2.8 mmol/L (3.5-5.1) Chloride Level 108 mmol/L (98-107) Carbon Dioxide Level 32 mmol/L (21-32) Anion Gap 5 (6-14) Blood Urea Nitrogen 17 mg/dL (8-26) Creatinine 0.7 mg/dL (0.7-1.3) Estimated GFR (Cockcroft-Gault) 110.9 Glucose Level 130 mg/dL (70-99) Calcium Level 7.9 mg/dL (8.5-10.1) Test 09/27/20 06:30 09/27/20 08:00 Prothrombin Time 28.6 SEC (11.7-14.0) Prothromb Time International Ratio 2.8 (0.8-1.1) O2 Saturation 96 % (92-99) Arterial Blood pH 7.48 (7.35-7.45) Arterial Blood pCO2 at Patient Temp 40 mmHg (35-46) Arterial Blood pO2 at Patient Temp 88 mmHg (65-108) Arterial Blood HCO3 29 mmol/L (21-28) Arterial Blood Base Excess 5 mmol/L (-3-3) FiO2 40/vent Laboratory Tests Test 09/26/20 18:59 09/27/20 00:00 09/27/20 06:00 09/27/20 06:30 Glucose (Fingerstick) 109 mg/dL (70-99) 134 mg/dL (70-99) White Blood Count 4.6 x10^3/uL (4.0-11.0) Red Blood Count 2.33 x10^6/uL (4.30-5.70) Hemoglobin 7.3 g/dL (13.0-17.5) Hematocrit 22.2 % (39.0-53.0) Mean Corpuscular Volume 95 fL (79-100) Mean Corpuscular Hemoglobin 31 pg (25-35) Mean Corpuscular Hemoglobin Concent 33 g/dL (31-37) Red Cell Distribution Width 18.5 % (11.5-14.5) Platelet Count 227 x10^3/uL (140-400) Sodium Level 145 mmol/L (136-145) Potassium Level 2.8 mmol/L (3.5-5.1) Chloride Level 108 mmol/L (98-107) Carbon Dioxide Level 32 mmol/L (21-32) Anion Gap 5 (6-14) Blood Urea Nitrogen 17 mg/dL (8-26) Creatinine 0.7 mg/dL (0.7-1.3) Estimated GFR (Cockcroft-Gault) 110.9 Glucose Level 130 mg/dL (70-99) Calcium Level 7.9 mg/dL (8.5-10.1) Prothrombin Time 28.6 SEC (11.7-14.0) Prothromb Time International Ratio 2.8 (0.8-1.1) Test 09/27/20 08:00 O2 Saturation 96 % (92-99) Arterial Blood pH 7.48 (7.35-7.45) Arterial Blood pCO2 at Patient Temp 40 mmHg (35-46) Arterial Blood pO2 at Patient Temp 88 mmHg (65-108) Arterial Blood HCO3 29 mmol/L (21-28) Arterial Blood Base Excess 5 mmol/L (-3-3) FiO2 40/vent Medications Current Medications Fentanyl Citrate 30 ml @ 0 mls/hr CONT PRN IV SEE PROTOCOL; Start 09/22/20 at 09:45 Propofol 100 ml @ 0 mls/hr CONT PRN IV PER PROTOCOL Last administered on 09/22/20at 10:30; Start 09/22/20 at 09:45; Stop 09/26/20 at 20:12; Status DC Fentanyl Citrate (Fentanyl 2ml Vial) 25 mcg PRN Q1HR PRN IV SEE COMMENTS; Start 09/22/20 at 09:45 Fentanyl Citrate (Fentanyl 2ml Vial) 50 mcg PRN Q1HR PRN IV SEE COMMENTS; Start 09/22/20 at 09:45 Chlorhexidine Gluconate (Peridex) 15 ml BID MM ; Start 09/22/20 at 10:00; Stop 09/22/20 at 19:54; Status DC Midazolam HCl (Versed) 2 mg 1X ONCE IV ; Start 09/22/20 at 10:30; Stop 09/22/20 at 10:31; Status DC Iohexol (Omnipaque 300 Mg/ml) 75 ml 1X ONCE IV Last administered on 09/22/20at 11:06; Start 09/22/20 at 10:45; Stop 09/22/20 at 10:46; Status DC Info (CONTRAST GIVEN -- Rx MONITORING) 1 each PRN DAILY PRN MC SEE COMMENTS; Start 09/22/20 at 10:45; Stop 09/24/20 at 10:44; Status DC Potassium Chloride/Water 100 ml @ 100 mls/hr Q1H IV Last administered on 09/22/20at 20:27; Start 09/22/20 at 15:00; Stop 09/22/20 at 18:59; Status DC Cefepime HCl (Maxipime) 1 gm Q8HRS IVP Last administered on 09/27/20at 05:50; Start 09/22/20 at 14:00 Sennosides (Senna) 17.2 mg PRN BID PRN PO CONSTIPATION; Start 09/22/20 at 14:00 Docusate Sodium (Colace) 100 mg PRN DAILY PRN PO HARD STOOLS; Start 09/22/20 at 14:00; Stop 09/22/20 at 14:00; Status DC Ondansetron HCl (Zofran) 4 mg PRN Q6HRS PRN IVP NAUSEA/VOMITING, 1ST CHOICE; Start 09/22/20 at 14:00 Insulin Human Lispro (HumaLOG) 0-7 UNITS Q6HRS SQ Last administered on 09/23/20at 13:06; Start 09/22/20 at 18:00 Dextrose (Dextrose 50%-Water Syringe) 12.5 gm PRN Q15MIN PRN IV SEE COMMENTS Last administered on 09/22/20at 17:47; Start 09/22/20 at 14:00 Dextrose/Sodium Chloride 1,000 ml @ 50 mls/hr Q20H IV Last administered on 09/26/20at 18:55; Start 09/22/20 at 14:00 Acetaminophen (Tylenol) 650 mg PRN Q4HRS PRN PO TEMP OVER 100.4F OR MILD PAIN Last administered on 09/23/20at 00:20; Start 09/22/20 at 14:00; Stop 09/23/20 at 16:24; Status DC Enoxaparin Sodium (Lovenox 40mg Syringe) 40 mg Q24H SQ ; Start 09/22/20 at 14:00; Status UNV Pantoprazole Sodium (PROTONIX VIAL for IV PUSH) 40 mg DAILY IVP Last administered on 09/26/20at 17:17; Start 09/23/20 at 09:00 Prochlorperazine Edisylate (Compazine) 10 mg PRN Q6HRS PRN IV NAUSEA/VOMITING, 2ND CHOICE; Start 09/22/20 at 14:00 Etomidate (Amidate) 20 mg STK-MED ONCE IV ; Start 09/22/20 at 17:46; Stop 09/22/20 at 17:46; Status DC Rocuronium [place] (Zemuron) 50 mg STK-MED ONCE .ROUTE ; Start 09/22/20 at 17:46; Stop 09/22/20 at 17:47; Status DC Norepinephrine Bitartrate 8 mg/ Dextrose 258 ml @ 21.769 mls/ hr CONT PRN IV PER PROTOCOL Last administered on 09/24/20at 13:20; Start 09/22/20 at 18:15 Potassium Chloride/Water 100 ml @ 100 mls/hr Q1H IV Last administered on 09/23/20at 14:30; Start 09/23/20 at 07:00; Stop 09/23/20 at 14:59; Status DC Acetaminophen (Tylenol) 650 mg PRN Q6HRS PRN PEG MILD PAIN / TEMP > 100.3'F Last administered on 09/23/20at 16:34; Start 09/23/20 at 16:30 Warfarin Sodium (Coumadin Per Pharmacy) 1 each PRN DAILY PRN MC SEE COMMENTS Last administered on 09/27/20at 08:31; Start 09/24/20 at 12:30 Warfarin Sodium (Coumadin) 5 mg 1X WARF ONCE PO Last administered on 09/24/20at 17:42; Start 09/24/20 at 16:00; Stop 09/24/20 at 16:01; Status DC Warfarin Sodium (Coumadin - No Dose Today) 1 each 1X WARF ONCE MC ; Start 09/25/20 at 16:00; Stop 09/25/20 at 16:01; Status DC Warfarin Sodium (Coumadin) 1 mg 1X WARF ONCE PO Last administered on 09/26/20at 16:00; Start 09/26/20 at 16:00; Stop 09/26/20 at 16:01; Status DC Propofol 100 ml @ 3.174 mls/ hr CONT PRN IV PER PROTOCOL Last administered on 09/27/20at 05:49; Start 09/26/20 at 20:15 Atropine Sulfate (ATROPINE 1mg SYRINGE) 1 mg STK-MED ONCE .ROUTE ; Start 09/25/20 at 10:00; Stop 09/27/20 at 08:20; Status DC Epinephrine HCl (EPINEPHrine SYRINGE) 1 mg STK-MED ONCE .ROUTE ; Start 09/25/20 at 10:00; Stop 09/27/20 at 08:20; Status DC Warfarin Sodium (Coumadin) 2 mg 1X WARF ONCE PO ; Start 09/27/20 at 16:00; Stop 09/27/20 at 16:01 Aspirin (Aspirin Chewable) 81 mg DAILYWBKFT PO ; Start 09/27/20 at 09:30 Clopidogrel Bisulfate (Plavix) 75 mg DAILYWBKFT PO ; Start 09/27/20 at 09:30 Active Scripts Active Amiodarone Hcl 200 Mg Tablet 400 Mg PO DAILY 90 Days [Warfarin Per Pharmacy] 1 EACH Each 1 Each MC PRN DAILY PRN 30 Days Clopidogrel (Clopidogrel Bisulfate) 75 Mg Tablet 75 Mg PO DAILYWBKFT 90 Days Humalog (Insulin Lispro) 100 Unit/1 Ml Insuln.pen 0 Units SQ TIDWMEALS 30 Days Duoneb 0.5-3(2.5) Mg/3 Ml (Albuterol/Ipratropium) 3 Ml Ampul.neb 3 Ml NEB RTQID 30 Days Aspirin 325 Mg Tablet 325 Mg PO DAILYWBKFT 30 Days Metoprolol Tartrate 25 Mg Tablet 25 Mg PO BID 30 Days Montelukast Sodium Tablet (Montelukast Sodium) 10 Mg Tablet 10 Mg PO QHS Gabapentin 600 Mg Tablet 600 Mg PO BID 30 Days Reported Glimepiride 4 Mg Tablet 1 Tab PO DAILY Furosemide 40 Mg Tablet 1 Tab PO BID Symbicort 160-4.5 Mcg Inhaler (Budesonide/Formoterol Fumarate) 10.2 Gm Hfa.aer.ad 1 Puff INH DAILY Losartan-Hctz 100-12.5 Mg Tab (Losartan/Hydrochlorothiazide) 1 Each Tablet 1 Tab PO DAILY Nitrofurantoin [place]-Mcr 100 Mg (Nitrofurantoin Monohyd/M-Cryst) 100 Mg Capsule 1 Cap PO BID Betamethasone Valerate 60 Ml Lotion 1 TP QHS Atorvastatin Calcium 40 Mg Tablet 1 Tab PO DAILY Diltiazem 24Hr Cd (Diltiazem HCl) 240 Mg Cap.er.24h 1 Cap PO DAILY Nystop (Nystatin) 60 Gm Powder 1 Sudheer TP BID Pepcid (Famotidine) 20 Mg Tablet 20 Mg PO BID Vitals/I & O Vital Sign - Last 24 Hours 09/26/20 09/26/20 09/26/20 09/26/20 10:00 11:00 12:00 12:00 Temp 98.6 98.6 Pulse 80 86 80 Resp 14 19 13 B/P (MAP) 106/64 (78) 138/76 (96) 114/74 (87) Pulse Ox 97 97 97 O2 Delivery Ventilator Ventilator Mechanical Ventilator Ventilator 09/26/20 09/26/20 09/26/20 09/26/20 12:08 13:00 13:28 14:00 Pulse 82 84 Resp 15 17 B/P (MAP) 122/82 (95) 136/82 (100) Pulse Ox 97 97 97 97 O2 Delivery Ventilator Ventilator Ventilator Ventilator 09/26/20 09/26/20 09/26/20 09/26/20 15:00 16:00 16:00 16:10 Temp 98.4 98.4 Pulse 84 82 Resp 16 15 B/P (MAP) 125/86 (99) 120/78 (92) Pulse Ox 97 97 97 O2 Delivery Ventilator Mechanical Ventilator Ventilator Ventilator 09/26/20 09/26/20 09/26/20 09/26/20 17:00 17:32 18:00 19:00 Pulse 82 84 98 Resp 16 16 17 B/P (MAP) 124/78 (93) 99/65 (76) 110/63 (79) Pulse Ox 97 97 98 98 O2 Delivery Ventilator Ventilator Ventilator Ventilator 09/26/20 09/26/20 09/26/20 09/26/20 20:00 20:00 20:42 21:00 Temp 97.9 97.9 Pulse 90 90 Resp 21 18 B/P (MAP) 112/70 (84) 132/74 (93) Pulse Ox 98 96 98 O2 Delivery Ventilator Mechanical Ventilator Ventilator Ventilator 09/26/20 09/26/20 09/26/20 09/26/20 22:00 23:00 23:00 23:59 Temp 98.1 98.1 Pulse 92 93 93 Resp 21 24 24 B/P (MAP) 131/82 (98) 123/63 (83) 122/70 (87) Pulse Ox 98 98 98 98 O2 Delivery Ventilator Ventilator Ventilator Ventilator 09/26/20 09/27/20 09/27/20 09/27/20 23:59 01:00 02:00 02:00 Pulse 93 90 Resp B/P (MAP) 113/65 (81) 112/57 (75) Pulse Ox 98 99 99 O2 Delivery Mechanical Ventilator Ventilator Ventilator Ventilator 09/27/20 09/27/20 09/27/20 09/27/20 03:00 04:00 04:00 05:00 Temp 99.0 99.0 Pulse 86 84 86 Resp 22 22 22 B/P (MAP) 136/65 (88) 125/73 (90) 114/68 (83) Pulse Ox 100 100 100 O2 Delivery Ventilator Ventilator Mechanical Ventilator Ventilator 09/27/20 09/27/20 09/27/20 09/27/20 05:15 06:00 08:12 09:37 Pulse 86 Resp 22 B/P (MAP) 116/69 (85) Pulse Ox 98 100 99 98 O2 Delivery Ventilator Ventilator Ventilator Ventilator Intake and Output 09/26/20 09/26/20 09/27/20 15:00 23:00 07:00 Intake Total 0 ml 238 ml Output Total 292 ml 350 ml 300 ml Balance -292 ml -350 ml -62 ml Justicifation of Admission Dx: Justifications for Admission: Justification of Admission Dx: Yes CHF: Cardiac Arrhythmias RAFAEL REINOSO MD Sep 27, 2020 09:44
[2020-09-27] MEDS: POTASSIUM CHLORIDE 20MEQ 100 ML IV SCH ×2 (11:21→12:45)
[2020-09-27] MEDS: PANTOPRAZOLE IV PUSH 40 MG VIAL. IVP SCH (11:23)
[2020-09-27] MEDS: CLOPIDOGREL BISULFATE 75 MG TABLET PO SCH ×2 (11:24→12:46)
[2020-09-27] MEDS: IV DEXTROSE 5 %-0.45 % NACL 1,000 ML IV SCH (11:25)
[2020-09-27] MEDS: ASPIRIN CHEWABLE 81 MG TABLET. PO SCH (12:49)
--- NOTE | 2020-09-27 15:06 | NUR ---
SS following up with discharge planning. SS reviewed pt chart and discussed with pt RN. Pt is currently on the vent at 40%. COVID19 negative. DNR now. Pt on IV Cefepime. Pt on Propofol. Per RN, will continue to monitor and assess at the end of the week for trach and peg. SS will continue to follow for discharge planning.
[2020-09-27] MEDS ORDERED: WARFARIN 2 MG TABLET. PO ONE (16:00)
[2020-09-28] VITALS (23 sets, daily range): BP systolic 93–147; BP diastolic 2–89
[2020-09-28] MEDS: PROPOFOL 100 ML IV PRN ×3 (03:19→23:01)
[2020-09-28] MEDS: CEFEPIME HCL IV Push 1 GM VIAL. IVP SCH ×3 (05:42→22:17)
[2020-09-28] MEDS: INSULIN LISPRO 300 UNITS/3 ML VIAL. SQ SCH ×3 (05:50→18:00)
[2020-09-28 08:03] LABS: PROTHROMBIN TIME PATIENT 15.9 SEC (11.7-14.0)
[2020-09-28 08:26] LABS: BASE EXCESS ABG 2 mmol/L (-3-3); HCO3 ABG 27 mmol/L (21-28); PCO2 ABG 40 mmHg (35-46); PO2 ABG 91 mmHg (65-108); SAT O2 ABG 96 % (92-99)
[2020-09-28] MEDS: ASPIRIN CHEWABLE 81 MG TABLET. PO SCH (08:42)
[2020-09-28] MEDS: PANTOPRAZOLE IV PUSH 40 MG VIAL. IVP SCH (08:43)
--- NOTE | 2020-09-28 08:50 | PDOC ---
[facility] PROGRESS NOTE Date of Service DOS: DATE: 09/28/20 TIME: 08:42 Chief Complaint Chief Complaint Acute metabolic, infectious encephalopathy Acute respiratory failure Healthcare associated pneumonia, possible aspiration, possible gram-negative organisms Acute hypoglycemia Hypokalemia Elevated troponins concerning for type II demand ischemia Severe protein malnutrition Morbid obesity AAA, 4 cm History of diabetes mellitus type 2 History of dyslipidemia history of hypertension History of recent STEMI History of CAD with recent stent placement Admit to ICU for further management Hypoglycemia protocol Continue empiric IV antibiotics with concern for aspiration pneumonia Pulmonology consult for vent management IV electrolyte replacement as needed Consider cardiology consult if troponins increase Lovenox for DVT prophylaxis Protonix while on the vent GI prophylaxis N.p.o. Full code Discussed with RN and SW Disposition inpatient management as above Surrogate decision maker is undesignated History of Present Illness History of Present Illness Patient is a 70-year-old male with a recent prolonged hospitalization for STEMI and respiratory failure for which she was treated with arterial thrombolysis for a right leg popliteal artery aneurysm and also had left heart cath with p lacement of a stent in the LAD and RCA comes in today after he was found obtunded at his assisted facility. Apparently according to the nursing facility patient was in his usual state of health and he was conversational but then became altered. His blood glucose was found to be in the 30s. Glucose tabs and glucagon was given in route and his GCS reported at 6. Upon arrival patient's mental status did not improve and he was eventually intubated for airway protection. Of note EMS was bagging the patient through the nasal access. In the ED, patient was placed on a vent and pulmonology was consulted. Patient was also taken to the CT scanner for sanders scanning. Patient was started to wake up on the vent and sedation was ordered. 09/23/20 Patient examined at bedside. Intubated. Not on any sedation but unresponsive. Neurology consult in place. 09/24/20 Patient seen and examined at bedside. Remains intubated he is off sedation but still remains unresponsive. Planning for MRI brain in the morning. Further plan to be determined by MRI. 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 Plan of care discussed with bedside RN 09/25/20: Afebrile, currently breathing on ventilator with FiO2 50%, PEEP 5. Had CODE BLUE in ICU this morning; received 2 rounds of CPR, epinephrine, and atropine with ROSC. I believe MRI will be obtained today, per neurology. I had discussion with Dr. Rubalcava about his very poor prognosis due to multifactorial comorbidities. In our opinion continuing with present aggressive care would be futile. I would recommend that he should be made DNR, and after discussion with Dr. Rubalcava he agrees. Since there is no family and no one to discuss goals of care, we agreed to make patient DNR. Critical care time 30 minutes spent reviewing charts, reviewing labs, imaging, discussion with RN. 09/26/2020: Afebrile. Still on vent, with FiO2 45%, PEEP 5. After discussion with Dr. Rubalcava yesterday, patient was made DNR. In the ED is likely a poor candidate for weaning trials may need trach in near future if no significant improvement. MRI with no acute findings. Continue with pressure support and IV antibiotics. Critical care time 30 minutes reviewing charts, labs, examination, discussion with RN. 09/27/2020: Afebrile. On vent with FiO2 40%, PEEP 5. Potassium 2.8 today, will replace. Warfarin has been resumed. Discussed with pharmacy, will resume aspir in and Plavix. May need tracheostomy by the end of the week if no improvement in mental status. Chest x-ray today showed improving interstitial prominence, persistent left basilar opacities. Continue IV cefepime and supportive care. Critical care time 30 minutes reviewing charts, labs, examination, discussion with RN. 09/28/2020: Afebrile. On ventilator with FiO2 40%, PEEP 5. Warfarin has been resumed; INR 1.3 today. Some morning labs still pending; hemoglobin yesterday 7.3, will continue to monitor. May need tracheostomy at some point if no improvement in mental status. Continue IV cefepime and supportive care. Critical care time 30 minutes reviewing charts, labs, examination, discussion with RN. Vitals/I&O Vitals/I&O: Vital Signs Date Time Temp Pulse Resp B/P (MAP) Pulse Ox O2 Delivery O2 Flow Rate FiO2 09/28/20 06:00 80 26 114/62 (79) 99 Ventilator 09/28/20 04:00 98.8 98.8 I & O 09/27/20 09/27/20 09/28/20 15:00 23:00 07:00 Intake Total 636 ml Output Total 100 ml 160 ml 249 ml Balance -100 ml -160 ml 387 ml Physical Exam General: Other (Intubated, nonresponsive) Heart: Regular rate, Normal S1, Normal S2 Lungs: Other (Intubated) Abdomen: Normal bowel sounds, Soft Extremities: No clubbing, No edema, Normal pulses Skin: No rashes, No significant lesion Labs Labs: Laboratory Tests Test 09/27/20 13:02 09/27/20 15:31 09/27/20 18:13 09/27/20 23:51 Glucose (Fingerstick) 149 mg/dL (70-99) 140 mg/dL (70-99) 125 mg/dL (70-99) 127 mg/dL (70-99) Test 09/28/20 05:48 09/28/20 06:20 Glucose (Fingerstick) 140 mg/dL (70-99) Prothrombin Time 15.9 SEC (11.7-14.0) Prothromb Time International Ratio 1.3 (0.8-1.1) Assessment and Plan Assessmemt and Plan Problems Medical Problems: (1) NSTEMI (non-ST elevated myocardial infarction) Status: Acute (2) Obtundation Status: Acute (3) Respiratory arrest Status: Acute Comment Review of Relevant I have reviewed the following items denise (where applicable) has been applied. Medications: Current Medications Medications (Trade) Dose Ordered Sig/Dru Route PRN Reason Start Time Stop Time Status Last Admin Dose Admin Warfarin Sodium (Coumadin) 2 mg 1X WARF ONCE PO 09/27/20 16:00 09/27/20 16:01 DC 09/27/20 17:53 Aspirin (Aspirin Chewable) 81 mg DAILYWBKFT PO 09/27/20 09:30 09/27/20 12:49 Clopidogrel Bisulfate (Plavix) 75 mg DAILYWBKFT PO 09/27/20 09:30 09/27/20 12:46 Potassium Chloride/Water 100 ml @ 100 mls/hr Q1H IV 09/27/20 11:30 09/27/20 13:29 DC 09/27/20 12:45 Justifications for Admission Other Justification Hypoglycemia and altered mental status. NAIDA LÓPEZ MD Sep 28, 2020 08:50
[2020-09-28 09:01] LABS: FIO2 ABG 40% VENT
[2020-09-28 09:24] LABS: CALCIUM 8.1 mg/dL (8.5-10.1); CREATININE 0.7 mg/dL (0.7-1.3); GFR 110.9; POTASSIUM 3.4 mmol/L (3.5-5.1)
--- NOTE | 2020-09-28 10:32 | PDOC ---
PULMONARY PROGRESS NOTES DATE: 09/28/20 TIME: 10:31 Subjective Pt. remains on vent support 40%/5 Low-grade fever overnight S/P cardiac arrest 09/26/20, Nursing reports ventilatory asynchrony, placed on low-dose propofol overnight Vitals Vital Signs Date Time Temp Pulse Resp B/P (MAP) Pulse Ox O2 Delivery O2 Flow Rate FiO2 09/28/20 09:03 84 16 126/70 (88) 99 Ventilator 09/28/20 08:00 98.5 98.5 Comments vent Lungs: Other (Intubated) Cardiovascular: S1, S2 Abdomen: Soft, Non-tender, Other (Obese) Extremities: Other (1+ edema) Labs Laboratory Tests Test 09/26/20 18:59 09/27/20 00:00 09/27/20 06:00 09/27/20 06:30 Glucose (Fingerstick) 109 mg/dL (70-99) 134 mg/dL (70-99) White Blood Count 4.6 x10^3/uL (4.0-11.0) Red Blood Count 2.33 x10^6/uL (4.30-5.70) Hemoglobin 7.3 g/dL (13.0-17.5) Hematocrit 22.2 % (39.0-53.0) Mean Corpuscular Volume 95 fL (79-100) Mean Corpuscular Hemoglobin 31 pg (25-35) Mean Corpuscular Hemoglobin Concent 33 g/dL (31-37) Red Cell Distribution Width 18.5 % (11.5-14.5) Platelet Count 227 x10^3/uL (140-400) Sodium Level 145 mmol/L (136-145) Potassium Level 2.8 mmol/L (3.5-5.1) Chloride Level 108 mmol/L (98-107) Carbon Dioxide Level 32 mmol/L (21-32) Anion Gap 5 (6-14) Blood Urea Nitrogen 17 mg/dL (8-26) Creatinine 0.7 mg/dL (0.7-1.3) Estimated GFR (Cockcroft-Gault) 110.9 Glucose Level 130 mg/dL (70-99) Calcium Level 7.9 mg/dL (8.5-10.1) Prothrombin Time 28.6 SEC (11.7-14.0) Prothromb Time International Ratio 2.8 (0.8-1.1) Test 09/27/20 08:00 09/27/20 13:02 09/27/20 15:31 09/27/20 18:13 O2 Saturation 96 % (92-99) Arterial Blood pH 7.48 (7.35-7.45) Arterial Blood pCO2 at Patient Temp 40 mmHg (35-46) Arterial Blood pO2 at Patient Temp 88 mmHg (65-108) Arterial Blood HCO3 29 mmol/L (21-28) Arterial Blood Base Excess 5 mmol/L (-3-3) FiO2 40/vent Glucose (Fingerstick) 149 mg/dL (70-99) 140 mg/dL (70-99) 125 mg/dL (70-99) Test 09/27/20 23:51 09/28/20 05:45 09/28/20 05:48 09/28/20 06:20 Glucose (Fingerstick) 127 mg/dL (70-99) 140 mg/dL (70-99) Sodium Level 142 mmol/L (136-145) Potassium Level 3.4 mmol/L (3.5-5.1) Chloride Level 107 mmol/L (98-107) Carbon Dioxide Level 29 mmol/L (21-32) Anion Gap 6 (6-14) Blood Urea Nitrogen 13 mg/dL (8-26) Creatinine 0.7 mg/dL (0.7-1.3) Estimated GFR (Cockcroft-Gault) 110.9 Glucose Level 135 mg/dL (70-99) Calcium Level 8.1 mg/dL (8.5-10.1) Prothrombin Time 15.9 SEC (11.7-14.0) Prothromb Time International Ratio 1.3 (0.8-1.1) Test 09/28/20 09:00 O2 Saturation 96 % (92-99) Arterial Blood pH 7.45 (7.35-7.45) Arterial Blood pCO2 at Patient Temp 40 mmHg (35-46) Arterial Blood pO2 at Patient Temp 91 mmHg (65-108) Arterial Blood HCO3 27 mmol/L (21-28) Arterial Blood Base Excess 2 mmol/L (-3-3) FiO2 40% vent Laboratory Tests Test 09/27/20 13:02 09/27/20 15:31 09/27/20 18:13 09/27/20 23:51 Glucose (Fingerstick) 149 mg/dL (70-99) 140 mg/dL (70-99) 125 mg/dL (70-99) 127 mg/dL (70-99) Test 09/28/20 05:45 09/28/20 05:48 09/28/20 06:20 09/28/20 09:00 Sodium Level 142 mmol/L (136-145) Potassium Level 3.4 mmol/L (3.5-5.1) Chloride Level 107 mmol/L (98-107) Carbon Dioxide Level 29 mmol/L (21-32) Anion Gap 6 (6-14) Blood Urea Nitrogen 13 mg/dL (8-26) Creatinine 0.7 mg/dL (0.7-1.3) Estimated GFR (Cockcroft-Gault) 110.9 Glucose Level 135 mg/dL (70-99) Calcium Level 8.1 mg/dL (8.5-10.1) Glucose (Fingerstick) 140 mg/dL (70-99) Prothrombin Time 15.9 SEC (11.7-14.0) Prothromb Time International Ratio 1.3 (0.8-1.1) O2 Saturation 96 % (92-99) Arterial Blood pH 7.45 (7.35-7.45) Arterial Blood pCO2 at Patient Temp 40 mmHg (35-46) Arterial Blood pO2 at Patient Temp 91 mmHg (65-108) Arterial Blood HCO3 27 mmol/L (21-28) Arterial Blood Base Excess 2 mmol/L (-3-3) FiO2 40% vent Medications Active Scripts Medications Dose Route/Sig Max Daily Dose Days Date Category Amiodarone Hcl 200 Mg Tablet 400 Mg PO DAILY 09/18/20 Rx [Warfarin Per Pharmacy] 1 EACH Each 1 Each MC PRN DAILY PRN 30 09/18/20 Rx Clopidogrel (Clopidogrel Bisulfate) 75 Mg Tablet 75 Mg PO DAILYWBKFT 09/18/20 Rx Glimepiride 4 Mg Tablet 1 Tab PO DAILY 09/13/20 Reported Furosemide 40 Mg Tablet 1 Tab PO BID 09/13/20 Reported Symbicort 160-4.5 Mcg Inhaler (Budesonide/Formoterol Fumarate) 10.2 Gm Hfa.aer.ad 1 Puff INH DAILY 09/13/20 Reported Losartan-Hctz 100-12.5 Mg Tab (Losartan/Hydrochlorothiazide) 1 Each Tablet 1 Tab PO DAILY 09/13/20 Reported Nitrofurantoin [place]-Mcr 100 Mg (Nitrofurantoin Monohyd/M-Cryst) 100 Mg Capsule 1 Cap PO BID 09/13/20 Reported Betamethasone Valerate 60 Ml Lotion 1 TP QHS 09/13/20 Reported Atorvastatin Calcium 40 Mg Tablet 1 Tab PO DAILY 09/13/20 Reported Diltiazem 24Hr Cd (Diltiazem HCl) 240 Mg Cap.er.24h 1 Cap PO DAILY 09/13/20 Reported Nystop (Nystatin) 60 Gm Powder 1 Sudheer TP BID 09/13/20 Reported Humalog (Insulin Lispro) 100 Unit/1 Ml Insuln.pen 0 Units SQ TIDWMEALS 30 08/06/18 Rx Duoneb 0.5-3(2.5) Mg/3 Ml (Albuterol/Ipratropium) 3 Ml Ampul.neb 3 Ml NEB RTQID 30 08/06/18 Rx Aspirin 325 Mg Tablet 325 Mg PO DAILYWBKFT 30 07/22/17 Rx Metoprolol Tartrate 25 Mg Tablet 25 Mg PO BID 30 07/22/17 Rx Montelukast Sodium Tablet (Montelukast Sodium) 10 Mg Tablet 10 Mg PO QHS 07/22/17 Rx Gabapentin 600 Mg Tablet 600 Mg PO BID 30 07/22/17 Rx Pepcid (Famotidine) 20 Mg Tablet 20 Mg PO BID 05/17/13 Reported Impression . 1. Acute on chronic respiratory failure secondary to multifactorial etiologies including hypoglycemic encephalopathy. No evidence of new stroke. 2. Possible sepsis--- ID following, on antibiotics 3. Hypoglycemia. 4. The patient with prior history of cerebrovascular accident with left-sided weakness. 5. Underlying chronic obstructive pulmonary disease. 6. Morbid obesity. 7. Peripheral vascular disease. 8. Abnormal CT chest with bibasilar atelectasis. No significant mucus plugging. Tiny pleural effusion seen. 9. Persistent encephalopathy. Plan . Updated 09/28/20 Continue current vent support /40/5 Pt. is not best candidate for weaning/extubation, as he is high risk for re- intubation 2/2 lack of ability to protect his own airway, may require tracheostomy We will discontinue propofol again and assess for his mental status. Follow CXR/ABG --make changes as needed Follow neurology recs-- MRI neg Continue ABX on cefepime DVT/GI PPX: warfarin D/W RN and RT Patient is a DNR. CC time 30 mins Updated 09/27/20 Continue current vent support 10/450/40/5 Pt. is not best candidate for weaning/extubation, as he is high risk for re- intubation 2/2 lack of ability to protect his own airway, may require tr acheostomy Follow CXR/ABG --make changes as needed Follow neurology recs-- MRI neg Continue ABX on cefepime DVT/GI PPX: warfarin D/W RN and RT Patient is a DNR. CC time 30 mins CLINTON PALAFOX MD Sep 28, 2020 10:32
--- NOTE | 2020-09-28 14:00 | NUR ---
Pharmacy Warfarin Dosing Note S:Pharmacy consulted to assist with anticoagulation therapy with target INR: 2 -3 O:DEMETRICE HOWE is a 70 year old M with Atrial Fibrillation, DVT/PE, HIT LABS: Last INR: 1.3 Last HGB: 8.6 Last HCT: 26.1 Last PLT: 229 Last dose of 2 mg given on 09/27/20 at 1753 Vitamin K given: N A:INR of 1.3 is below desired range. Target range for this patient is: 2 -3 P: Warfarin dose: 3 mg Today at 1600 Bridge Therapy: None Next INR due tomorrow Pharmacy anticoagulation service will continue to follow. Roseline Varela RPH, 09/28/20 1400
[2020-09-28] MEDS ORDERED: WARFARIN 3 MG TABLET. PO ONE (16:00)
[2020-09-29] VITALS (23 sets, daily range): BP systolic 97–139; BP diastolic 56–76
[2020-09-29] MEDS: IV DEXTROSE 5 %-0.45 % NACL 1,000 ML IV SCH ×2 (00:06→21:16)
[2020-09-29] MEDS: CEFEPIME HCL IV Push 1 GM VIAL. IVP SCH (05:52)
[2020-09-29] MEDS: INSULIN LISPRO 300 UNITS/3 ML VIAL. SQ SCH ×4 (05:53→18:00)
[2020-09-29 06:08] LABS: BASO % 1 % (0-3); EOS # 0.3 x10^3/uL (0.0-0.7); EOS % 6 % (0-3); HEMATOCRIT 22.8 % (39.0-53.0); HEMOGLOBIN 7.5 g/dL (13.0-17.5); LYMPH # 1.9 x10^3/uL (1.0-4.8); LYMPH % 35 % (24-48); MEAN CORPUSCULAR HEMOGLOBIN 31 pg (25-35); MEAN CORPUSCULAR HGB CONC 33 g/dL (31-37); MEAN CORPUSCULAR VOLUME 96 fL (79-100); MONO # 0.3 x10^3/uL (0.0-1.1); MONO % 6 % (0-9); NEUT # 2.9 x10^3/uL (1.8-7.7); NEUT % 53 % (31-73); PLATELET COUNT 232 x10^3/uL (140-400); RED BLOOD COUNT 2.38 x10^6/uL (4.30-5.70); RED CELL DISTRIBUTION WIDTH 18.8 % (11.5-14.5); WHITE BLOOD COUNT 5.4 x10^3/uL (4.0-11.0)
[2020-09-29 06:12] LABS: CALCIUM 8.1 mg/dL (8.5-10.1); CREATININE 0.7 mg/dL (0.7-1.3); GFR 110.9; POTASSIUM 3.3 mmol/L (3.5-5.1)
[2020-09-29 07:08] LABS: BASE EXCESS ABG 4 mmol/L (-3-3); HCO3 ABG 28 mmol/L (21-28); PCO2 ABG 38 mmHg (35-46); PO2 ABG 96 mmHg (65-108); SAT O2 ABG 97 % (92-99)
[2020-09-29] MEDS: PROPOFOL 100 ML IV PRN ×2 (07:53→22:22)
[2020-09-29 07:57] LABS: FIO2 ABG 40
--- NOTE | 2020-09-29 08:55 | PDOC ---
PROGRESS NOTES Date of Service DATE: 09/29/20 TIME: 08:54 Assessment Problems Medical Problems: (1) NSTEMI (non-ST elevated myocardial infarction) Status: Acute (2) Obtundation Status: Acute (3) Respiratory arrest Status: Acute Found obtunded at [facility], unresponsive, no new stroke on MRI CODE BLUE on 09/26 Last admit had prolonged encephalopathy following the development of cardiogenic shock, STEMI, with negative EEG and CT head Remote history of seizures Last admit I felt there was a component of critical illness neuropathy/myopathy Respiratory failure LAST ADMIT also had: septic shock, leukocytosis, lactic acidosis, acute kidney injury, 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 EOMI. CN: no focal findings. Muscle tone: normal. Muscle strength: Slight spontaneous movements DTR: 1+ Plantar reflex: Silent Gait: not examined Sensory exam: Not testable Cerebellar: not testable Review of Relevant I have reviewed the following items denise (where applicable) has been applied. Labs Laboratory Tests Test 09/27/20 13:02 09/27/20 15:31 09/27/20 18:13 09/27/20 23:51 Glucose (Fingerstick) 149 mg/dL (70-99) 140 mg/dL (70-99) 125 mg/dL (70-99) 127 mg/dL (70-99) Test 09/28/20 05:45 09/28/20 05:48 09/28/20 06:20 09/28/20 09:00 Sodium Level 142 mmol/L (136-145) Potassium Level 3.4 mmol/L (3.5-5.1) Chloride Level 107 mmol/L (98-107) Carbon Dioxide Level 29 mmol/L (21-32) Anion Gap 6 (6-14) Blood Urea Nitrogen 13 mg/dL (8-26) Creatinine 0.7 mg/dL (0.7-1.3) Estimated GFR (Cockcroft-Gault) 110.9 Glucose Level 135 mg/dL (70-99) Calcium Level 8.1 mg/dL (8.5-10.1) Glucose (Fingerstick) 140 mg/dL (70-99) Prothrombin Time 15.9 SEC (11.7-14.0) Prothromb Time International Ratio 1.3 (0.8-1.1) O2 Saturation 96 % (92-99) Arterial Blood pH 7.45 (7.35-7.45) Arterial Blood pCO2 at Patient Temp 40 mmHg (35-46) Arterial Blood pO2 at Patient Temp 91 mmHg (65-108) Arterial Blood HCO3 27 mmol/L (21-28) Arterial Blood Base Excess 2 mmol/L (-3-3) FiO2 40% vent Test 09/28/20 13:04 09/28/20 18:26 09/29/20 00:07 09/29/20 05:48 Glucose (Fingerstick) 161 mg/dL (70-99) 140 mg/dL (70-99) 140 mg/dL (70-99) 140 mg/dL (70-99) Test 09/29/20 05:50 09/29/20 07:04 White Blood Count 5.4 x10^3/uL (4.0-11.0) Red Blood Count 2.38 x10^6/uL (4.30-5.70) Hemoglobin 7.5 g/dL (13.0-17.5) Hematocrit 22.8 % (39.0-53.0) Mean Corpuscular Volume 96 fL (79-100) Mean Corpuscular Hemoglobin 31 pg (25-35) Mean Corpuscular Hemoglobin Concent 33 g/dL (31-37) Red Cell Distribution Width 18.8 % (11.5-14.5) Platelet Count 232 x10^3/uL (140-400) Neutrophils (%) (Auto) 53 % (31-73) Lymphocytes (%) (Auto) 35 % (24-48) Monocytes (%) (Auto) 6 % (0-9) Eosinophils (%) (Auto) 6 % (0-3) Basophils (%) (Auto) 1 % (0-3) Neutrophils # (Auto) 2.9 x10^3/uL (1.8-7.7) Lymphocytes # (Auto) 1.9 x10^3/uL (1.0-4.8) Monocytes # (Auto) 0.3 x10^3/uL (0.0-1.1) Eosinophils # (Auto) 0.3 x10^3/uL (0.0-0.7) Basophils # (Auto) 0.0 x10^3/uL (0.0-0.2) Prothrombin Time 15.0 SEC (11.7-14.0) Prothromb Time International Ratio 1.2 (0.8-1.1) Sodium Level 141 mmol/L (136-145) Potassium Level 3.3 mmol/L (3.5-5.1) Chloride Level 107 mmol/L (98-107) Carbon Dioxide Level 30 mmol/L (21-32) Anion Gap 4 (6-14) Blood Urea Nitrogen 12 mg/dL (8-26) Creatinine 0.7 mg/dL (0.7-1.3) Estimated GFR (Cockcroft-Gault) 110.9 Glucose Level 144 mg/dL (70-99) Calcium Level 8.1 mg/dL (8.5-10.1) O2 Saturation 97 % (92-99) Arterial Blood pH 7.48 (7.35-7.45) Arterial Blood pCO2 at Patient Temp 38 mmHg (35-46) Arterial Blood pO2 at Patient Temp 96 mmHg (65-108) Arterial Blood HCO3 28 mmol/L (21-28) Arterial Blood Base Excess 4 mmol/L (-3-3) FiO2 40 Laboratory Tests Test 09/28/20 09:00 09/28/20 13:04 09/28/20 18:26 09/29/20 00:07 O2 Saturation 96 % (92-99) Arterial Blood pH 7.45 (7.35-7.45) Arterial Blood pCO2 at Patient Temp 40 mmHg (35-46) Arterial Blood pO2 at Patient Temp 91 mmHg (65-108) Arterial Blood HCO3 27 mmol/L (21-28) Arterial Blood Base Excess 2 mmol/L (-3-3) FiO2 40% vent Glucose (Fingerstick) 161 mg/dL (70-99) 140 mg/dL (70-99) 140 mg/dL (70-99) Test 09/29/20 05:48 09/29/20 05:50 09/29/20 07:04 Glucose (Fingerstick) 140 mg/dL (70-99) White Blood Count 5.4 x10^3/uL (4.0-11.0) Red Blood Count 2.38 x10^6/uL (4.30-5.70) Hemoglobin 7.5 g/dL (13.0-17.5) Hematocrit 22.8 % (39.0-53.0) Mean Corpuscular Volume 96 fL (79-100) Mean Corpuscular Hemoglobin 31 pg (25-35) Mean Corpuscular Hemoglobin Concent 33 g/dL (31-37) Red Cell Distribution Width 18.8 % (11.5-14.5) Platelet Count 232 x10^3/uL (140-400) Neutrophils (%) (Auto) 53 % (31-73) Lymphocytes (%) (Auto) 35 % (24-48) Monocytes (%) (Auto) 6 % (0-9) Eosinophils (%) (Auto) 6 % (0-3) Basophils (%) (Auto) 1 % (0-3) Neutrophils # (Auto) 2.9 x10^3/uL (1.8-7.7) Lymphocytes # (Auto) 1.9 x10^3/uL (1.0-4.8) Monocytes # (Auto) 0.3 x10^3/uL (0.0-1.1) Eosinophils # (Auto) 0.3 x10^3/uL (0.0-0.7) Basophils # (Auto) 0.0 x10^3/uL (0.0-0.2) Prothrombin Time 15.0 SEC (11.7-14.0) Prothromb Time International Ratio 1.2 (0.8-1.1) Sodium Level 141 mmol/L (136-145) Potassium Level 3.3 mmol/L (3.5-5.1) Chloride Level 107 mmol/L (98-107) Carbon Dioxide Level 30 mmol/L (21-32) Anion Gap 4 (6-14) Blood Urea Nitrogen 12 mg/dL (8-26) Creatinine 0.7 mg/dL (0.7-1.3) Estimated GFR (Cockcroft-Gault) 110.9 Glucose Level 144 mg/dL (70-99) Calcium Level 8.1 mg/dL (8.5-10.1) O2 Saturation 97 % (92-99) Arterial Blood pH 7.48 (7.35-7.45) Arterial Blood pCO2 at Patient Temp 38 mmHg (35-46) Arterial Blood pO2 at Patient Temp 96 mmHg (65-108) Arterial Blood HCO3 28 mmol/L (21-28) Arterial Blood Base Excess 4 mmol/L (-3-3) FiO2 40 Medications Current Medications Fentanyl Citrate 30 ml @ 0 mls/hr CONT PRN IV SEE PROTOCOL; Start 09/22/20 at 09:45 Propofol 100 ml @ 0 mls/hr CONT PRN IV PER PROTOCOL Last administered on 09/22/20at 10:30; Start 09/22/20 at 09:45; Stop 09/26/20 at 20:12; Status DC Fentanyl Citrate (Fentanyl 2ml Vial) 25 mcg PRN Q1HR PRN IV SEE COMMENTS; Start 09/22/20 at 09:45 Fentanyl Citrate (Fentanyl 2ml Vial) 50 mcg PRN Q1HR PRN IV SEE COMMENTS; Start 09/22/20 at 09:45 Chlorhexidine Gluconate (Peridex) 15 ml BID MM ; Start 09/22/20 at 10:00; Stop 09/22/20 at 19:54; Status DC Midazolam HCl (Versed) 2 mg 1X ONCE IV ; Start 09/22/20 at 10:30; Stop 09/22/20 at 10:31; Status DC Iohexol (Omnipaque 300 Mg/ml) 75 ml 1X ONCE IV Last administered on 09/22/20at 11:06; Start 09/22/20 at 10:45; Stop 09/22/20 at 10:46; Status DC Info (CONTRAST GIVEN -- Rx MONITORING) 1 each PRN DAILY PRN MC SEE COMMENTS; Start 09/22/20 at 10:45; Stop 09/24/20 at 10:44; Status DC Potassium Chloride/Water 100 ml @ 100 mls/hr Q1H IV Last administered on 09/22/20at 20:27; Start 09/22/20 at 15:00; Stop 09/22/20 at 18:59; Status DC Cefepime HCl (Maxipime) 1 gm Q8HRS IVP Last administered on 09/29/20at 05:52; Start 09/22/20 at 14:00 Sennosides (Senna) 17.2 mg PRN BID PRN PO CONSTIPATION; Start 09/22/20 at 14:00 Docusate Sodium (Colace) 100 mg PRN DAILY PRN PO HARD STOOLS; Start 09/22/20 at 14:00; Stop 09/22/20 at 14:00; Status DC Ondansetron HCl (Zofran) 4 mg PRN Q6HRS PRN IVP NAUSEA/VOMITING, 1ST CHOICE; Start 09/22/20 at 14:00 Insulin Human Lispro (HumaLOG) 0-7 UNITS Q6HRS SQ Last administered on 09/28/20at 13:09; Start 09/22/20 at 18:00 Dextrose (Dextrose 50%-Water Syringe) 12.5 gm PRN Q15MIN PRN IV SEE COMMENTS Last administered on 09/22/20at 17:47; Start 09/22/20 at 14:00 Dextrose/Sodium Chloride 1,000 ml @ 50 mls/hr Q20H IV Last administered on 09/29/20at 00:06; Start 09/22/20 at 14:00 Acetaminophen (Tylenol) 650 mg PRN Q4HRS PRN PO TEMP OVER 100.4F OR MILD PAIN Last administered on 09/23/20at 00:20; Start 09/22/20 at 14:00; Stop 09/23/20 at 16:24; Status DC Enoxaparin Sodium (Lovenox 40mg Syringe) 40 mg Q24H SQ ; Start 09/22/20 at 14:00; Status UNV Pantoprazole Sodium (PROTONIX VIAL for IV PUSH) 40 mg DAILY IVP Last administered on 09/28/20at 08:43; Start 09/23/20 at 09:00 Prochlorperazine Edisylate (Compazine) 10 mg PRN Q6HRS PRN IV NAUSEA/VOMITING, 2ND CHOICE; Start 09/22/20 at 14:00 Etomidate (Amidate) 20 mg STK-MED ONCE IV ; Start 09/22/20 at 17:46; Stop 09/22/20 at 17:46; Status DC Rocuronium Solgohachia (Zemuron) 50 mg STK-MED ONCE .ROUTE ; Start 09/22/20 at 17:46; Stop 09/22/20 at 17:47; Status DC Norepinephrine Bitartrate 8 mg/ Dextrose 258 ml @ 21.769 mls/ hr CONT PRN IV PER PROTOCOL Last administered on 09/24/20at 13:20; Start 09/22/20 at 18:15 Potassium Chloride/Water 100 ml @ 100 mls/hr Q1H IV Last administered on 09/23/20at 14:30; Start 09/23/20 at 07:00; Stop 09/23/20 at 14:59; Status DC Acetaminophen (Tylenol) 650 mg PRN Q6HRS PRN PEG MILD PAIN / TEMP > 100.3'F Last administered on 09/23/20at 16:34; Start 09/23/20 at 16:30 Warfarin Sodium (Coumadin Per Pharmacy) 1 each PRN DAILY PRN MC SEE COMMENTS Last administered on 09/28/20at 13:59; Start 09/24/20 at 12:30 Warfarin Sodium (Coumadin) 5 mg 1X WARF ONCE PO Last administered on 09/24/20at 17:42; Start 09/24/20 at 16:00; Stop 09/24/20 at 16:01; Status DC Warfarin Sodium (Coumadin - No Dose Today) 1 each 1X WARF ONCE MC ; Start 09/25/20 at 16:00; Stop 09/25/20 at 16:01; Status DC Warfarin Sodium (Coumadin) 1 mg 1X WARF ONCE PO Last administered on 09/26/20at 16:00; Start 09/26/20 at 16:00; Stop 09/26/20 at 16:01; Status DC Propofol 100 ml @ 3.174 mls/ hr CONT PRN IV PER PROTOCOL Last administered on 09/29/20at 07:53; Start 09/26/20 at 20:15 Atropine Sulfate (ATROPINE 1mg SYRINGE) 1 mg STK-MED ONCE .ROUTE ; Start 09/25/20 at 10:00; Stop 09/27/20 at 08:20; Status DC Epinephrine HCl (EPINEPHrine SYRINGE) 1 mg STK-MED ONCE .ROUTE ; Start 09/25/20 at 10:00; Stop 09/27/20 at 08:20; Status DC Warfarin Sodium (Coumadin) 2 mg 1X WARF ONCE PO Last administered on 09/27/20at 17:53; Start 09/27/20 at 16:00; Stop 09/27/20 at 16:01; Status DC Aspirin (Aspirin Chewable) 81 mg DAILYWBKFT PO Last administered on 09/28/20at 08:42; Start 09/27/20 at 09:30 Clopidogrel Bisulfate (Plavix) 75 mg DAILYWBKFT PO Last administered on 09/27/20at 12:46; Start 09/27/20 at 09:30 Potassium Chloride/Water 100 ml @ 100 mls/hr Q1H IV Last administered on at 12:45; Start 09/27/20 at 11:30; Stop 09/27/20 at 13:29; Status DC Warfarin Sodium (Coumadin) 3 mg 1X WARF ONCE PO Last administered on 09/28/20at 18:18; Start 09/28/20 at 16:00; Stop 09/28/20 at 16:01; Status DC Active Scripts Active Amiodarone Hcl 200 Mg Tablet 400 Mg PO DAILY 90 Days [Warfarin Per Pharmacy] 1 EACH Each 1 Each MC PRN DAILY PRN 30 Days Clopidogrel (Clopidogrel Bisulfate) 75 Mg Tablet 75 Mg PO DAILYWBKFT 90 Days Humalog (Insulin Lispro) 100 Unit/1 Ml Insuln.pen 0 Units SQ TIDWMEALS 30 Days Duoneb 0.5-3(2.5) Mg/3 Ml (Albuterol/Ipratropium) 3 Ml Ampul.neb 3 Ml NEB RTQID 30 Days Aspirin 325 Mg Tablet 325 Mg PO DAILYWBKFT 30 Days Metoprolol Tartrate 25 Mg Tablet 25 Mg PO BID 30 Days Montelukast Sodium Tablet (Montelukast Sodium) 10 Mg Tablet 10 Mg PO QHS Gabapentin 600 Mg Tablet 600 Mg PO BID 30 Days Reported Glimepiride 4 Mg Tablet 1 Tab PO DAILY Furosemide 40 Mg Tablet 1 Tab PO BID Symbicort 160-4.5 Mcg Inhaler (Budesonide/Formoterol Fumarate) 10.2 Gm Hfa.aer.ad 1 Puff INH DAILY Losartan-Hctz 100-12.5 Mg Tab (Losartan/Hydrochlorothiazide) 1 Each Tablet 1 Tab PO DAILY Nitrofurantoin Mills-Mcr 100 Mg (Nitrofurantoin Monohyd/M-Cryst) 100 Mg Capsule 1 Cap PO BID Betamethasone Valerate 60 Ml Lotion 1 TP QHS Atorvastatin Calcium 40 Mg Tablet 1 Tab PO DAILY Diltiazem 24Hr Cd (Diltiazem HCl) 240 Mg Cap.er.24h 1 Cap PO DAILY Nystop (Nystatin) 60 Gm Powder 1 Sudheer TP BID Pepcid (Famotidine) 20 Mg Tablet 20 Mg PO BID Vitals/I & O Vital Sign - Last 24 Hours 09/28/20 09/28/20 09/28/20 09/28/20 09:03 10:32 11:00 11:38 Pulse 84 81 81 Resp 16 16 16 B/P (MAP) 126/70 (88) 124/69 (87) 113/66 (82) Pulse Ox 99 99 98 98 O2 Delivery Ventilator Ventilator Ventilator Ventilator 09/28/20 09/28/20 09/28/20 09/28/20 11:46 12:00 12:00 12:37 Temp 99.1 99.1 Pulse 81 Resp 26 B/P (MAP) 133/78 (96) Pulse Ox 99 O2 Delivery Ventilator Mechanical Ventilator c-pap PS 20 Ventilator 09/28/20 09/28/20 09/28/20 09/28/20 13:00 14:00 15:00 16:00 Temp 99.2 99.2 Pulse 84 30 82 89 Resp 14 35 26 26 B/P (MAP) 124/66 (85) 147/89 (108) 138/77 (97) 142/89 (106) Pulse Ox 99 100 100 100 O2 Delivery Ventilator Ventilator Ventilator Ventilator 09/28/20 09/28/20 09/28/20 09/28/20 16:00 16:45 17:00 18:00 Pulse 94 5 Resp 25 23 B/P (MAP) 147/89 (108) 111/2 (38) Pulse Ox 97 97 100 O2 Delivery Mechanical Ventilator Ventilator Ventilator Ventilator 09/28/20 09/28/20 09/28/20 09/28/20 19:00 20:00 20:00 20:27 Temp 99.2 99.2 Pulse 84 82 Resp 21 25 B/P (MAP) 126/84 (98) 116/67 (83) Pulse Ox 100 100 99 O2 Delivery Ventilator Ventilator Mechanical Ventilator Ventilator 09/28/20 09/28/20 09/28/20 09/28/20 21:00 22:00 23:00 23:59 Temp 98.9 98.9 Pulse 79 78 79 84 Resp 20 B/P (MAP) 128/82 (97) 101/58 (72) 93/48 (63) 109/67 (81) Pulse Ox 100 99 100 100 O2 Delivery Ventilator Ventilator Ventilator Ventilator 09/28/20 09/29/20 09/29/20 09/29/20 23:59 00:10 01:00 02:00 Pulse 83 86 Resp B/P (MAP) 128/64 (85) 116/65 (82) Pulse Ox 99 100 100 O2 Delivery Mechanical Ventilator Ventilator Ventilator Ventilator 09/29/20 09/29/20 09/29/20 09/29/20 02:15 03:00 04:00 04:00 Temp 98.3 98.3 Pulse 91 90 Resp B/P (MAP) 136/65 (88) 124/76 (92) Pulse Ox 99 100 100 O2 Delivery Ventilator Ventilator Ventilator Mechanical Ventilator 09/29/20 09/29/20 09/29/20 09/29/20 05:00 05:15 06:00 06:54 Pulse 93 93 Resp 28 28 B/P (MAP) 127/76 (93) 122/68 (86) Pulse Ox 99 99 98 97 O2 Delivery Ventilator Ventilator Ventilator Ventilator Intake and Output 09/28/20 09/28/20 09/29/20 15:00 23:00 07:00 Intake Total 300 ml 1510 ml 1438 ml Output Total 540 ml 335 ml 250 ml Balance -240 ml 1175 ml 1188 ml Justicifation of Admission Dx: Justifications for Admission: Justification of Admission Dx: Yes CHF: Cardiac Arrhythmias RAFAEL REINOSO MD Sep 29, 2020 08:55
[2020-09-29] MEDS: CLOPIDOGREL BISULFATE 75 MG TABLET PO SCH (08:58)
[2020-09-29] MEDS: PANTOPRAZOLE IV PUSH 40 MG VIAL. IVP SCH (08:58)
[2020-09-29] MEDS: ASPIRIN CHEWABLE 81 MG TABLET. PO SCH (08:58)
[2020-09-29 10:17] LABS: % BANDS 2 % (0-9); % EOS 3 % (0-5); % LYMPHS 27 % (24-48); % MONOS 1 % (0-10); % MYELOS 1 % (0-0); % SEGS 66 % (35-66); PLT ESTIMATE ADEQUATE (ADEQUATE)
--- NOTE | 2020-09-29 10:39 | PDOC ---
[facility] PROGRESS NOTE Date of Service DOS: DATE: 09/29/20 TIME: 10:32 Chief Complaint Chief Complaint Acute metabolic, infectious encephalopathy Acute respiratory failure Healthcare associated pneumonia, possible aspiration, possible gram-negative organisms, possibly gram-positive organism Acute hypoglycemia Hypokalemia Elevated troponins concerning for type II demand ischemia Severe protein malnutrition Morbid obesity AAA, 4 cm History of diabetes mellitus type 2 History of dyslipidemia history of hypertension History of recent STEMI History of CAD with recent stent placement Admit to ICU for further management Hypoglycemia protocol Continue empiric IV antibiotics with concern for aspiration pneumonia Pulmonology consult for vent management IV electrolyte replacement as needed Consider cardiology consult if troponins increase Lovenox for DVT prophylaxis Protonix while on the vent GI prophylaxis N.p.o. Full code Discussed with RN and SW Disposition inpatient management as above Surrogate decision maker is undesignated History of Present Illness History of Present Illness Patient is a 70-year-old male with a recent prolonged hospitalization for STEMI and respiratory failure for which she was treated with arterial thrombolysis for a right leg popliteal artery aneurysm and also had left heart cath with placement of a stent in the LAD and RCA comes in today after he was found obtunded at his senior living facility. Apparently according to the nursing facility patient was in his usual state of health and he was conversational but then became altered. His blood glucose was found to be in the 30s. Glucose tabs and glucagon was given in route and his GCS reported at 6. Upon arrival patient's mental status did not improve and he was eventually intubated for airway protection. Of note EMS was bagging the patient through the nasal access. In the ED, patient was placed on a vent and pulmonology was consulted. Patient was also taken to the CT scanner for sanders scanning. Patient was started to wake up on the vent and sedation was ordered. 09/23/20 Patient examined at bedside. Intubated. Not on any sedation but unresponsive. Neurology consult in place. 09/24/20 Patient seen and examined at bedside. Remains intubated he is off sedation but still remains unresponsive. Planning for MRI brain in the morning. Further plan to be determined by MRI. 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 Plan of care discussed with bedside RN 09/25/20: Afebrile, currently breathing on ventilator with FiO2 50%, PEEP 5. Had CODE BLUE in ICU this morning; received 2 rounds of CPR, epinephrine, and atropine with ROSC. I believe MRI will be obtained today, per neurology. I had discussion with Dr. Rubalcava about his very poor prognosis due to multifactorial comorbidities. In our opinion continuing with present aggressive care would be futile. I would recommend that he should be made DNR, and after discussion with Dr. Rubalcava he agrees. Since there is no family and no one to discuss goals of care, we agreed to make patient DNR. Critical care time 30 minutes spent reviewing charts, reviewing labs, imaging, discussion with RN. 09/26/2020: Afebrile. Still on vent, with FiO2 45%, PEEP 5. After discussion with Dr. Rubalcava yesterday, patient was made DNR. In the ED is likely a poor can didate for weaning trials may need trach in near future if no significant improvement. MRI with no acute findings. Continue with pressure support and IV antibiotics. Critical care time 30 minutes reviewing charts, labs, examination, discussion with RN. 09/27/2020: Afebrile. On vent with FiO2 40%, PEEP 5. Potassium 2.8 today, will replace. Warfarin has been resumed. Discussed with pharmacy, will resume aspirin and Plavix. May need tracheostomy by the end of the week if no improvement in mental status. Chest x-ray today showed improving interstitial prominence, persistent left basilar opacities. Continue IV cefepime and suppo rtive care. Critical care time 30 minutes reviewing charts, labs, examination, discussion with RN. 09/28/2020: Afebrile. On ventilator with FiO2 40%, PEEP 5. Warfarin has been resumed; INR 1.3 today. Some morning labs still pending; hemoglobin yesterday 7.3, will continue to monitor. May need tracheostomy at some point if no improvement in mental status. Continue IV cefepime and supportive care. Critical care time 30 minutes reviewing charts, labs, examination, discussion with RN. 09/29/2020: Afebrile. Breathing on vent with FiO2 40%, PEEP 5. INR 1.2 today; pharmacy to help with warfarin dosing. White count within normal range, renal function stable. Spoke with pharmacy about cefepime 1 g every 8 hours dosing; this has been changed to cefepime 2 g every 8 hours. Possible tracheostomy at some point. Critical care time 30 minutes reviewing charts, labs, examination, discussion with RN. Vitals/I&O Vitals/I&O: Vital Signs Date Time Temp Pulse Resp B/P (MAP) Pulse Ox O2 Delivery O2 Flow Rate FiO2 09/29/20 09:24 95 Ventilator 09/29/20 06:00 93 28 122/68 (86) 09/29/20 04:00 98.3 98.3 I & O 09/28/20 09/28/20 09/29/20 15:00 23:00 07:00 Intake Total 300 ml 1510 ml 1438 ml Output Total 540 ml 335 ml 250 ml Balance -240 ml 1175 ml 1188 ml Physical Exam General: Other (Intubated, nonresponsive) Heart: Regular rate, Normal S1, Normal S2 Lungs: Other (Intubated) Abdomen: Normal bowel sounds, Soft Extremities: No clubbing, No edema, Normal pulses Skin: No rashes, No significant lesion Labs Labs: Laboratory Tests Test 09/28/20 13:04 09/28/20 18:26 09/29/20 00:07 09/29/20 05:48 Glucose (Fingerstick) 161 mg/dL (70-99) 140 mg/dL (70-99) 140 mg/dL (70-99) 140 mg/dL (70-99) Test 09/29/20 05:50 09/29/20 07:04 White Blood Count 5.4 x10^3/uL (4.0-11.0) Red Blood Count 2.38 x10^6/uL (4.30-5.70) Hemoglobin 7.5 g/dL (13.0-17.5) Hematocrit 22.8 % (39.0-53.0) Mean Corpuscular Volume 96 fL (79-100) Mean Corpuscular Hemoglobin 31 pg (25-35) Mean Corpuscular Hemoglobin Concent 33 g/dL (31-37) Red Cell Distribution Width 18.8 % (11.5-14.5) Platelet Count 232 x10^3/uL (140-400) Neutrophils (%) (Auto) 53 % (31-73) Lymphocytes (%) (Auto) 35 % (24-48) Monocytes (%) (Auto) 6 % (0-9) Eosinophils (%) (Auto) 6 % (0-3) Basophils (%) (Auto) 1 % (0-3) Neutrophils # (Auto) 2.9 x10^3/uL (1.8-7.7) Lymphocytes # (Auto) 1.9 x10^3/uL (1.0-4.8) Monocytes # (Auto) 0.3 x10^3/uL (0.0-1.1) Eosinophils # (Auto) 0.3 x10^3/uL (0.0-0.7) Basophils # (Auto) 0.0 x10^3/uL (0.0-0.2) Segmented Neutrophils % 66 % (35-66) Band Neutrophils % 2 % (0-9) Lymphocytes % 27 % (24-48) Monocytes % 1 % (0-10) Eosinophils % 3 % (0-5) Myelocytes % 1 % (0-0) Platelet Estimate Adequate (ADEQUATE) Prothrombin Time 15.0 SEC (11.7-14.0) Prothromb Time International Ratio 1.2 (0.8-1.1) Sodium Level 141 mmol/L (136-145) Potassium Level 3.3 mmol/L (3.5-5.1) Chloride Level 107 mmol/L (98-107) Carbon Dioxide Level 30 mmol/L (21-32) Anion Gap 4 (6-14) Blood Urea Nitrogen 12 mg/dL (8-26) Creatinine 0.7 mg/dL (0.7-1.3) Estimated GFR (Cockcroft-Gault) 110.9 Glucose Level 144 mg/dL (70-99) Calcium Level 8.1 mg/dL (8.5-10.1) O2 Saturation 97 % (92-99) Arterial Blood pH 7.48 (7.35-7.45) Arterial Blood pCO2 at Patient Temp 38 mmHg (35-46) Arterial Blood pO2 at Patient Temp 96 mmHg (65-108) Arterial Blood HCO3 28 mmol/L (21-28) Arterial Blood Base Excess 4 mmol/L (-3-3) FiO2 40 Assessment and Plan Assessmemt and Plan Problems Medical Problems: (1) NSTEMI (non-ST elevated myocardial infarction) Status: Acute (2) Obtundation Status: Acute (3) Respiratory arrest Status: Acute Comment Review of Relevant I have reviewed the following items denise (where applicable) has been applied. Medications: Current Medications Medications (Trade) Dose Ordered Sig/Dru Route PRN Reason Start Time Stop Time Status Last Admin Dose Admin Warfarin Sodium (Coumadin) 3 mg 1X WARF ONCE PO 09/28/20 16:00 09/28/20 16:01 DC 09/28/20 18:18 Justifications for Admission Other Justification Hypoglycemia and altered mental status. NAIDA LÓPEZ MD Sep 29, 2020 10:39
--- NOTE | 2020-09-29 11:41 | NUR ---
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 Target range for this patient is: 2 -3 P: Warfarin dose: 3 mg Today at 1600 Bridge Therapy: None Next INR due tomorrow Pharmacy anticoagulation service will continue to follow. Roseline Varela RPH, 09/29/20 [id number]
[2020-09-29] MEDS: CEFEPIME HCL IV Push 2 GM VIAL. IVP SCH ×2 (13:23→22:16)
[2020-09-29] MEDS ORDERED: WARFARIN 3 MG TABLET. PO ONE (16:00)
--- NOTE | 2020-09-29 16:11 | NUR ---
SS following up with discharge planning. SS reviewed pt chart and discussed with pt RN. Pt is currently on the vent at 40%. COVID19 negative. DNR. Pt on IV Cefepime. Pt on Propofol. Per RN, will continue to monitor and assess for trach and peg. SS will continue to follow for discharge planning.
--- NOTE | 2020-09-29 19:35 | PDOC ---
PULMONARY PROGRESS NOTES DATE: 09/29/20 TIME: 19:33 Subjective Pt. remains on vent support 40%/5 S/P cardiac arrest 09/26/20, remains non responsive Vitals Vital Signs Date Time Temp Pulse Resp B/P (MAP) Pulse Ox O2 Delivery O2 Flow Rate FiO2 09/29/20 17:40 99 Ventilator 09/29/20 14:00 99 18 97/57 (70) 09/29/20 13:00 99.0 99.0 Comments vent Lungs: Other (Intubated) Cardiovascular: S1, S2 Abdomen: Soft, Non-tender, Other (Obese) Extremities: Other (1+ edema) Labs Laboratory Tests Test 09/27/20 23:51 09/28/20 05:45 09/28/20 05:48 09/28/20 06:20 Glucose (Fingerstick) 127 mg/dL (70-99) 140 mg/dL (70-99) Sodium Level 142 mmol/L (136-145) Potassium Level 3.4 mmol/L (3.5-5.1) Chloride Level 107 mmol/L (98-107) Carbon Dioxide Level 29 mmol/L (21-32) Anion Gap 6 (6-14) Blood Urea Nitrogen 13 mg/dL (8-26) Creatinine 0.7 mg/dL (0.7-1.3) Estimated GFR (Cockcroft-Gault) 110.9 Glucose Level 135 mg/dL (70-99) Calcium Level 8.1 mg/dL (8.5-10.1) Prothrombin Time 15.9 SEC (11.7-14.0) Prothromb Time International Ratio 1.3 (0.8-1.1) Test 09/28/20 09:00 09/28/20 13:04 09/28/20 18:26 09/29/20 00:07 O2 Saturation 96 % (92-99) Arterial Blood pH 7.45 (7.35-7.45) Arterial Blood pCO2 at Patient Temp 40 mmHg (35-46) Arterial Blood pO2 at Patient Temp 91 mmHg (65-108) Arterial Blood HCO3 27 mmol/L (21-28) Arterial Blood Base Excess 2 mmol/L (-3-3) FiO2 40% vent Glucose (Fingerstick) 161 mg/dL (70-99) 140 mg/dL (70-99) 140 mg/dL (70-99) Test 09/29/20 05:48 09/29/20 05:50 09/29/20 07:04 09/29/20 13:14 Glucose (Fingerstick) 140 mg/dL (70-99) 162 mg/dL (70-99) White Blood Count 5.4 x10^3/uL (4.0-11.0) Red Blood Count 2.38 x10^6/uL (4.30-5.70) Hemoglobin 7.5 g/dL (13.0-17.5) Hematocrit 22.8 % (39.0-53.0) Mean Corpuscular Volume 96 fL (79-100) Mean Corpuscular Hemoglobin 31 pg (25-35) Mean Corpuscular Hemoglobin Concent 33 g/dL (31-37) Red Cell Distribution Width 18.8 % (11.5-14.5) Platelet Count 232 x10^3/uL (140-400) Neutrophils (%) (Auto) 53 % (31-73) Lymphocytes (%) (Auto) 35 % (24-48) Monocytes (%) (Auto) 6 % (0-9) Eosinophils (%) (Auto) 6 % (0-3) Basophils (%) (Auto) 1 % (0-3) Neutrophils # (Auto) 2.9 x10^3/uL (1.8-7.7) Lymphocytes # (Auto) 1.9 x10^3/uL (1.0-4.8) Monocytes # (Auto) 0.3 x10^3/uL (0.0-1.1) Eosinophils # (Auto) 0.3 x10^3/uL (0.0-0.7) Basophils # (Auto) 0.0 x10^3/uL (0.0-0.2) Segmented Neutrophils % 66 % (35-66) Band Neutrophils % 2 % (0-9) Lymphocytes % 27 % (24-48) Monocytes % 1 % (0-10) Eosinophils % 3 % (0-5) Myelocytes % 1 % (0-0) Platelet Estimate Adequate (ADEQUATE) Prothrombin Time 15.0 SEC (11.7-14.0) Prothromb Time International Ratio 1.2 (0.8-1.1) Sodium Level 141 mmol/L (136-145) Potassium Level 3.3 mmol/L (3.5-5.1) Chloride Level 107 mmol/L (98-107) Carbon Dioxide Level 30 mmol/L (21-32) Anion Gap 4 (6-14) Blood Urea Nitrogen 12 mg/dL (8-26) Creatinine 0.7 mg/dL (0.7-1.3) Estimated GFR (Cockcroft-Gault) 110.9 Glucose Level 144 mg/dL (70-99) Calcium Level 8.1 mg/dL (8.5-10.1) O2 Saturation 97 % (92-99) Arterial Blood pH 7.48 (7.35-7.45) Arterial Blood pCO2 at Patient Temp 38 mmHg (35-46) Arterial Blood pO2 at Patient Temp 96 mmHg (65-108) Arterial Blood HCO3 28 mmol/L (21-28) Arterial Blood Base Excess 4 mmol/L (-3-3) FiO2 40 Test 09/29/20 18:25 Glucose (Fingerstick) 115 mg/dL (70-99) Laboratory Tests Test 09/29/20 00:07 09/29/20 05:48 09/29/20 05:50 09/29/20 07:04 Glucose (Fingerstick) 140 mg/dL (70-99) 140 mg/dL (70-99) White Blood Count 5.4 x10^3/uL (4.0-11.0) Red Blood Count 2.38 x10^6/uL (4.30-5.70) Hemoglobin 7.5 g/dL (13.0-17.5) Hematocrit 22.8 % (39.0-53.0) Mean Corpuscular Volume 96 fL (79-100) Mean Corpuscular Hemoglobin 31 pg (25-35) Mean Corpuscular Hemoglobin Concent 33 g/dL (31-37) Red Cell Distribution Width 18.8 % (11.5-14.5) Platelet Count 232 x10^3/uL (140-400) Neutrophils (%) (Auto) 53 % (31-73) Lymphocytes (%) (Auto) 35 % (24-48) Monocytes (%) (Auto) 6 % (0-9) Eosinophils (%) (Auto) 6 % (0-3) Basophils (%) (Auto) 1 % (0-3) Neutrophils # (Auto) 2.9 x10^3/uL (1.8-7.7) Lymphocytes # (Auto) 1.9 x10^3/uL (1.0-4.8) Monocytes # (Auto) 0.3 x10^3/uL (0.0-1.1) Eosinophils # (Auto) 0.3 x10^3/uL (0.0-0.7) Basophils # (Auto) 0.0 x10^3/uL (0.0-0.2) Segmented Neutrophils % 66 % (35-66) Band Neutrophils % 2 % (0-9) Lymphocytes % 27 % (24-48) Monocytes % 1 % (0-10) Eosinophils % 3 % (0-5) Myelocytes % 1 % (0-0) Platelet Estimate Adequate (ADEQUATE) Prothrombin Time 15.0 SEC (11.7-14.0) Prothromb Time International Ratio 1.2 (0.8-1.1) Sodium Level 141 mmol/L (136-145) Potassium Level 3.3 mmol/L (3.5-5.1) Chloride Level 107 mmol/L (98-107) Carbon Dioxide Level 30 mmol/L (21-32) Anion Gap 4 (6-14) Blood Urea Nitrogen 12 mg/dL (8-26) Creatinine 0.7 mg/dL (0.7-1.3) Estimated GFR (Cockcroft-Gault) 110.9 Glucose Level 144 mg/dL (70-99) Calcium Level 8.1 mg/dL (8.5-10.1) O2 Saturation 97 % (92-99) Arterial Blood pH 7.48 (7.35-7.45) Arterial Blood pCO2 at Patient Temp 38 mmHg (35-46) Arterial Blood pO2 at Patient Temp 96 mmHg (65-108) Arterial Blood HCO3 28 mmol/L (21-28) Arterial Blood Base Excess 4 mmol/L (-3-3) FiO2 40 Test 09/29/20 13:14 09/29/20 18:25 Glucose (Fingerstick) 162 mg/dL (70-99) 115 mg/dL (70-99) Medications Active Scripts Medications Dose Route/Sig Max Daily Dose Days Date Category Amiodarone Hcl 200 Mg Tablet 400 Mg PO DAILY 90 09/18/20 Rx [Warfarin Per Pharmacy] 1 EACH Each 1 Each PRN DAILY PRN 30 09/18/20 Rx Clopidogrel (Clopidogrel Bisulfate) 75 Mg Tablet 75 Mg PO DAILYWBKFT 90 09/18/20 Rx Glimepiride 4 Mg Tablet 1 Tab PO DAILY 09/13/20 Reported Furosemide 40 Mg Tablet 1 Tab PO BID 09/13/20 Reported Symbicort 160-4.5 Mcg Inhaler (Budesonide/Formoterol Fumarate) 10.2 Gm Hfa.aer.ad 1 Puff INH DAILY 09/13/20 Reported Losartan-Hctz 100-12.5 Mg Tab (Losartan/Hydrochlorothiazide) 1 Each Tablet 1 Tab PO DAILY 09/13/20 Reported Nitrofurantoin [place]-Mcr 100 Mg (Nitrofurantoin Monohyd/M-Cryst) 100 Mg Capsule 1 Cap PO BID 09/13/20 Reported Betamethasone Valerate 60 Ml Lotion 1 TP QHS 09/13/20 Reported Atorvastatin Calcium 40 Mg Tablet 1 Tab PO DAILY 09/13/20 Reported Diltiazem 24Hr Cd (Diltiazem HCl) 240 Mg Cap.er.24h 1 Cap PO DAILY 09/13/20 Reported Nystop (Nystatin) 60 Gm Powder 1 Sudheer TP BID 09/13/20 Reported Humalog (Insulin Lispro) 100 Unit/1 Ml Insuln.pen 0 Units SQ TIDWMEALS 30 08/06/18 Rx Duoneb 0.5-3(2.5) Mg/3 Ml (Albuterol/Ipratropium) 3 Ml Ampul.neb 3 Ml NEB RTQID 30 08/06/18 Rx Aspirin 325 Mg Tablet 325 Mg PO DAILYWBKFT 30 07/22/17 Rx Metoprolol Tartrate 25 Mg Tablet 25 Mg PO BID 30 07/22/17 Rx Montelukast Sodium Tablet (Montelukast Sodium) 10 Mg Tablet 10 Mg PO QHS 07/22/17 Rx Gabapentin 600 Mg Tablet 600 Mg PO BID 30 07/22/17 Rx Pepcid (Famotidine) 20 Mg Tablet 20 Mg PO BID 05/17/13 Reported Impression . 1. Acute on chronic respiratory failure secondary to multifactorial etiologies including hypoglycemic encephalopathy. No evidence of new stroke. 2. Possible sepsis--- ID following, on antibiotics 3. Hypoglycemia./ encephalopathy 4. The patient with prior history of cerebrovascular accident with left-sided weakness. 5. Underlying chronic obstructive pulmonary disease. 6. Morbid obesity. 7. Peripheral vascular disease. 8. Abnormal CT chest with bibasilar atelectasis. No significant mucus plugging. Tiny pleural effusion seen. 9. Persistent encephalopathy. Plan . Updated 09/29/20 Continue current vent support 10/450/40/5 Pt. is not best candidate for weaning/extubation, as he is high risk for re-intubation 2/2 lack of ability to protect his own airway, will require tracheostomy We will discontinue propofol again and assess for his mental status. Follow CXR/ABG --make changes as needed Follow neurology recs-- MRI neg Continue ABX on cefepime DVT/GI PPX: warfarin D/W RN and RT Patient is a DNR. will consider trach next week if no improvement Updated 09/28/20 Continue current vent support 10/450/40/5 Pt. is not best candidate for weaning/extubation, as he is high risk for re- intubation 2/2 lack of ability to protect his own airway, may require tracheostomy We will discontinue propofol again and assess for his mental status. Follow CXR/ABG --make changes as needed Follow neurology recs-- MRI neg Continue ABX on cefepime DVT/GI PPX: warfarin D/W RN and RT Patient is a DNR. CC time 30 mins Updated 09/27/20 Continue current vent support 10/450/40/5 Pt. is not best candidate for weaning/extubation, as he is high risk for re- intubation 2/2 lack of ability to protect his own airway, may require tracheostomy Follow CXR/ABG --make changes as needed Follow neurology recs-- MRI neg Continue ABX on cefepime DVT/GI PPX: warfarin D/W RN and RT Patient is a DNR. CC time 30 mins CLINTON PALAFOX MD Sep 29, 2020 19:35
[2020-09-30] VITALS (22 sets, daily range): BP systolic 83–171; BP diastolic 50–90
[2020-09-30] MEDS: IV DEXTROSE 5 %-0.45 % NACL 1,000 ML IV SCH ×2 (02:00→18:17)
[2020-09-30 04:49] LABS: BASO % 0 % (0-3); EOS # 0.3 x10^3/uL (0.0-0.7); EOS % 5 % (0-3); HEMATOCRIT 21.8 % (39.0-53.0); HEMOGLOBIN 7.4 g/dL (13.0-17.5); LYMPH # 2.1 x10^3/uL (1.0-4.8); LYMPH % 35 % (24-48); MEAN CORPUSCULAR HEMOGLOBIN 32 pg (25-35); MEAN CORPUSCULAR HGB CONC 34 g/dL (31-37); MEAN CORPUSCULAR VOLUME 94 fL (79-100); MONO # 0.3 x10^3/uL (0.0-1.1); MONO % 5 % (0-9); NEUT # 3.4 x10^3/uL (1.8-7.7); NEUT % 55 % (31-73); PLATELET COUNT 251 x10^3/uL (140-400); RED BLOOD COUNT 2.31 x10^6/uL (4.30-5.70); WHITE BLOOD COUNT 6.1 x10^3/uL (4.0-11.0)
[2020-09-30 04:56] LABS: PROTHROMBIN TIME PATIENT 16.8 SEC (11.7-14.0)
[2020-09-30 05:14] LABS: CALCIUM 8.1 mg/dL (8.5-10.1); CREATININE 0.7 mg/dL (0.7-1.3); GFR 110.9; POTASSIUM 3.5 mmol/L (3.5-5.1)
[2020-09-30] MEDS: CEFEPIME HCL IV Push 2 GM VIAL. IVP SCH ×3 (05:56→22:01)
--- NOTE | 2020-09-30 06:32 | PDOC ---
PULMONARY PROGRESS NOTES DATE: 09/30/20 TIME: 06:29 Subjective Pt. remains on vent support 40%/5 S/P cardiac arrest 09/26/20, remains non responsive has large ett secretion on propofol Vitals Vital Signs Date Time Temp Pulse Resp B/P (MAP) Pulse Ox O2 Delivery O2 Flow Rate FiO2 09/30/20 05:25 99 Ventilator 09/30/20 05:00 96 17 113/61 (78) 09/30/20 00:00 99.6 99.6 Comments ros unable to obtain sedated on vent HEENT: Other (nc at perrl nose clear orally intubated neck no lad no thyromegaly) Lungs: Other (Intubated) Cardiovascular: S1, S2 Abdomen: Soft, Non-tender, Other (Obese) Extremities: Other (1+ edema) Skin: Warm Labs Laboratory Tests Test 09/28/20 09:00 09/28/20 13:04 09/28/20 18:26 09/29/20 00:07 O2 Saturation 96 % (92-99) Arterial Blood pH 7.45 (7.35-7.45) Arterial Blood pCO2 at Patient Temp 40 mmHg (35-46) Arterial Blood pO2 at Patient Temp 91 mmHg (65-108) Arterial Blood HCO3 27 mmol/L (21-28) Arterial Blood Base Excess 2 mmol/L (-3-3) FiO2 40% vent Glucose (Fingerstick) 161 mg/dL (70-99) 140 mg/dL (70-99) 140 mg/dL (70-99) Test 09/29/20 05:48 09/29/20 05:50 09/29/20 07:04 09/29/20 13:14 Glucose (Fingerstick) 140 mg/dL (70-99) 162 mg/dL (70-99) White Blood Count 5.4 x10^3/uL (4.0-11.0) Red Blood Count 2.38 x10^6/uL (4.30-5.70) Hemoglobin 7.5 g/dL (13.0-17.5) Hematocrit 22.8 % (39.0-53.0) Mean Corpuscular Volume 96 fL (79-100) Mean Corpuscular Hemoglobin 31 pg (25-35) Mean Corpuscular Hemoglobin Concent 33 g/dL (31-37) Red Cell Distribution Width 18.8 % (11.5-14.5) Platelet Count 232 x10^3/uL (140-400) Neutrophils (%) (Auto) 53 % (31-73) Lymphocytes (%) (Auto) 35 % (24-48) Monocytes (%) (Auto) 6 % (0-9) Eosinophils (%) (Auto) 6 % (0-3) Basophils (%) (Auto) 1 % (0-3) Neutrophils # (Auto) 2.9 x10^3/uL (1.8-7.7) Lymphocytes # (Auto) 1.9 x10^3/uL (1.0-4.8) Monocytes # (Auto) 0.3 x10^3/uL (0.0-1.1) Eosinophils # (Auto) 0.3 x10^3/uL (0.0-0.7) Basophils # (Auto) 0.0 x10^3/uL (0.0-0.2) Segmented Neutrophils % 66 % (35-66) Band Neutrophils % 2 % (0-9) Lymphocytes % 27 % (24-48) Monocytes % 1 % (0-10) Eosinophils % 3 % (0-5) Myelocytes % 1 % (0-0) Platelet Estimate Adequate (ADEQUATE) Prothrombin Time 15.0 SEC (11.7-14.0) Prothromb Time International Ratio 1.2 (0.8-1.1) Sodium Level 141 mmol/L (136-145) Potassium Level 3.3 mmol/L (3.5-5.1) Chloride Level 107 mmol/L (98-107) Carbon Dioxide Level 30 mmol/L (21-32) Anion Gap 4 (6-14) Blood Urea Nitrogen 12 mg/dL (8-26) Creatinine 0.7 mg/dL (0.7-1.3) Estimated GFR (Cockcroft-Gault) 110.9 Glucose Level 144 mg/dL (70-99) Calcium Level 8.1 mg/dL (8.5-10.1) O2 Saturation 97 % (92-99) Arterial Blood pH 7.48 (7.35-7.45) Arterial Blood pCO2 at Patient Temp 38 mmHg (35-46) Arterial Blood pO2 at Patient Temp 96 mmHg (65-108) Arterial Blood HCO3 28 mmol/L (21-28) Arterial Blood Base Excess 4 mmol/L (-3-3) FiO2 40 Test 09/29/20 18:25 09/30/20 00:27 09/30/20 04:00 Glucose (Fingerstick) 115 mg/dL (70-99) 144 mg/dL (70-99) White Blood Count 6.1 x10^3/uL (4.0-11.0) Red Blood Count 2.31 x10^6/uL (4.30-5.70) Hemoglobin 7.4 g/dL (13.0-17.5) Hematocrit 21.8 % (39.0-53.0) Mean Corpuscular Volume 94 fL (79-100) Mean Corpuscular Hemoglobin 32 pg (25-35) Mean Corpuscular Hemoglobin Concent 34 g/dL (31-37) Red Cell Distribution Width 19.0 % (11.5-14.5) Platelet Count 251 x10^3/uL (140-400) Neutrophils (%) (Auto) 55 % (31-73) Lymphocytes (%) (Auto) 35 % (24-48) Monocytes (%) (Auto) 5 % (0-9) Eosinophils (%) (Auto) 5 % (0-3) Basophils (%) (Auto) 0 % (0-3) Neutrophils # (Auto) 3.4 x10^3/uL (1.8-7.7) Lymphocytes # (Auto) 2.1 x10^3/uL (1.0-4.8) Monocytes # (Auto) 0.3 x10^3/uL (0.0-1.1) Eosinophils # (Auto) 0.3 x10^3/uL (0.0-0.7) Basophils # (Auto) 0.0 x10^3/uL (0.0-0.2) Sodium Level 141 mmol/L (136-145) Potassium Level 3.5 mmol/L (3.5-5.1) Chloride Level 107 mmol/L (98-107) Carbon Dioxide Level 31 mmol/L (21-32) Anion Gap 3 (6-14) Blood Urea Nitrogen 12 mg/dL (8-26) Creatinine 0.7 mg/dL (0.7-1.3) Estimated GFR (Cockcroft-Gault) 110.9 Glucose Level 146 mg/dL (70-99) Calcium Level 8.1 mg/dL (8.5-10.1) Laboratory Tests Test 09/29/20 07:04 09/29/20 13:14 09/29/20 18:25 09/30/20 00:27 O2 Saturation 97 % (92-99) Arterial Blood pH 7.48 (7.35-7.45) Arterial Blood pCO2 at Patient Temp 38 mmHg (35-46) Arterial Blood pO2 at Patient Temp 96 mmHg (65-108) Arterial Blood HCO3 28 mmol/L (21-28) Arterial Blood Base Excess 4 mmol/L (-3-3) FiO2 40 Glucose (Fingerstick) 162 mg/dL (70-99) 115 mg/dL (70-99) 144 mg/dL (70-99) Test 09/30/20 04:00 White Blood Count 6.1 x10^3/uL (4.0-11.0) Red Blood Count 2.31 x10^6/uL (4.30-5.70) Hemoglobin 7.4 g/dL (13.0-17.5) Hematocrit 21.8 % (39.0-53.0) Mean Corpuscular Volume 94 fL (79-100) Mean Corpuscular Hemoglobin 32 pg (25-35) Mean Corpuscular Hemoglobin Concent 34 g/dL (31-37) Red Cell Distribution Width 19.0 % (11.5-14.5) Platelet Count 251 x10^3/uL (140-400) Neutrophils (%) (Auto) 55 % (31-73) Lymphocytes (%) (Auto) 35 % (24-48) Monocytes (%) (Auto) 5 % (0-9) Eosinophils (%) (Auto) 5 % (0-3) Basophils (%) (Auto) 0 % (0-3) Neutrophils # (Auto) 3.4 x10^3/uL (1.8-7.7) Lymphocytes # (Auto) 2.1 x10^3/uL (1.0-4.8) Monocytes # (Auto) 0.3 x10^3/uL (0.0-1.1) Eosinophils # (Auto) 0.3 x10^3/uL (0.0-0.7) Basophils # (Auto) 0.0 x10^3/uL (0.0-0.2) Sodium Level 141 mmol/L (136-145) Potassium Level 3.5 mmol/L (3.5-5.1) Chloride Level 107 mmol/L (98-107) Carbon Dioxide Level 31 mmol/L (21-32) Anion Gap 3 (6-14) Blood Urea Nitrogen 12 mg/dL (8-26) Creatinine 0.7 mg/dL (0.7-1.3) Estimated GFR (Cockcroft-Gault) 110.9 Glucose Level 146 mg/dL (70-99) Calcium Level 8.1 mg/dL (8.5-10.1) Medications Active Scripts Medications Dose Route/Sig Max Daily Dose Days Date Category Amiodarone Hcl 200 Mg Tablet 400 Mg PO DAILY 09/18/20 Rx [Warfarin Per Pharmacy] 1 EACH Each 1 Each MC PRN DAILY PRN 09/18/20 Rx Clopidogrel (Clopidogrel Bisulfate) 75 Mg Tablet 75 Mg PO DAILYWBKFT 09/18/20 Rx Glimepiride 4 Mg Tablet 1 Tab PO DAILY 09/13/20 Reported Furosemide 40 Mg Tablet 1 Tab PO BID 09/13/20 Reported Symbicort 160-4.5 Mcg Inhaler (Budesonide/Formoterol Fumarate) 10.2 Gm Hfa.aer.ad 1 Puff INH DAILY 09/13/20 Reported Losartan-Hctz 100-12.5 Mg Tab (Losartan/Hydrochlorothiazide) 1 Each Tablet 1 Tab PO DAILY 09/13/20 Reported Nitrofurantoin [place]-Mcr 100 Mg (Nitrofurantoin Monohyd/M-Cryst) 100 Mg Capsule 1 Cap PO BID 09/13/20 Reported Betamethasone Valerate 60 Ml Lotion 1 TP QHS 09/13/20 Reported Atorvastatin Calcium 40 Mg Tablet 1 Tab PO DAILY 09/13/20 Reported Diltiazem 24Hr Cd (Diltiazem HCl) 240 Mg Cap.er.24h 1 Cap PO DAILY 09/13/20 Reported Nystop (Nystatin) 60 Gm Powder 1 Sudheer TP BID 09/13/20 Reported Humalog (Insulin Lispro) 100 Unit/1 Ml Insuln.pen 0 Units SQ TIDWMEALS 30 08/06/18 Rx Duoneb 0.5-3(2.5) Mg/3 Ml (Albuterol/Ipratropium) 3 Ml Ampul.neb 3 Ml NEB RTQID 08/06/18 Rx Aspirin 325 Mg Tablet 325 Mg PO DAILYWBKFT 07/22/17 Rx Metoprolol Tartrate 25 Mg Tablet 25 Mg PO BID 30 07/22/17 Rx Montelukast Sodium Tablet (Montelukast Sodium) 10 Mg Tablet 10 Mg PO QHS 07/22/17 Rx Gabapentin 600 Mg Tablet 600 Mg PO BID 30 07/22/17 Rx Pepcid (Famotidine) 20 Mg Tablet 20 Mg PO BID 05/17/13 Reported Comments cxr reviewed 1.Improving interstitial prominence, persistent left basilar opacities. ett ok Impression . 1. Acute on chronic respiratory failure secondary to multifactorial etiologies including hypoglycemic encephalopathy. No evidence of new stroke. 2. Possible sepsis--- ID following, on antibiotics 3. Hypoglycemia./ encephalopathy 4. The patient with prior history of cerebrovascular accident with left-sided weakness. 5. Underlying chronic obstructive pulmonary disease. 6. Morbid obesity. 7. Peripheral vascular disease. 8. Abnormal CT chest with bibasilar atelectasis. No significant mucus plugging. Tiny pleural effusion seen. 9. Persistent encephalopathy. Plan . Updated 09/30/20 Continue current vent support 10/450/40/5 will dc sedation cpap trial when awake need trach if doesnt wake up as will not be able to protect airway Follow CXR/ABG --make changes as needed Follow neurology recs-- MRI neg Continue ABX on cefepime DVT/GI PPX: warfarin D/W RN and RT Patient is a DNR. will consider trach next week if no improvement Updated 09/29/20 Continue current vent support 10/450/40/5 Pt. is not best candidate for weaning/extubation, as he is high risk for re- intubation 2/2 lack of ability to protect his own airway, will require tracheostomy We will discontinue propofol again and assess for his mental status. Follow CXR/ABG --make changes as needed Follow neurology recs-- MRI neg Continue ABX on cefepime DVT/GI PPX: warfarin D/W RN and RT Patient is a DNR. will consider trach next week if no improvement Updated 09/28/20 Continue current vent support 10/450/40/5 Pt. is not best candidate for weaning/extubation, as he is high risk for re- intubation 2/2 lack of ability to protect his own airway, may require tracheostomy We will discontinue propofol again and assess for his mental status. Follow CXR/ABG --make changes as needed Follow neurology recs-- MRI neg Continue ABX on cefepime DVT/GI PPX: warfarin D/W RN and RT Patient is a DNR. CC time 30 mins Updated 09/27/20 Continue current vent support 10/450/40/5 Pt. is not best candidate for weaning/extubation, as he is high risk for re- intubation 2/2 lack of ability to protect his own airway, may require tracheostomy Follow CXR/ABG --make changes as needed Follow neurology recs-- MRI neg Continue ABX on cefepime DVT/GI PPX: warfarin D/W RN and RT Patient is a DNR. CC time 30 mins DESIRE DE LA GARZA MD Sep 30, 2020 06:32
[2020-09-30] MEDS: INSULIN LISPRO 300 UNITS/3 ML VIAL. SQ SCH ×4 (06:37→18:17)
[2020-09-30] MEDS: PROPOFOL 100 ML IV PRN ×4 (06:38→19:14)
[2020-09-30 07:52] LABS: BASE EXCESS ABG 5 mmol/L (-3-3); HCO3 ABG 29 mmol/L (21-28); PCO2 ABG 42 mmHg (35-46); PO2 ABG 100 mmHg (65-108); SAT O2 ABG 97 % (92-99)
[2020-09-30 07:53] LABS: FIO2 ABG 40
[2020-09-30] MEDS: PANTOPRAZOLE IV PUSH 40 MG VIAL. IVP SCH (08:41)
[2020-09-30] MEDS: CLOPIDOGREL BISULFATE 75 MG TABLET PO SCH (08:41)
--- NOTE | 2020-09-30 10:26 | PDOC ---
[facility] [facility] PROGRESS NOTE Date of Service DOS: DATE: 09/30/20 TIME: 10:21 Chief Complaint Chief Complaint Acute metabolic, infectious encephalopathy Acute respiratory failure Healthcare associated pneumonia, possible aspiration, possible gram-negative organisms, possibly gram-positive organism Acute hypoglycemia Hypokalemia Elevated troponins concerning for type II demand ischemia Severe protein malnutrition Morbid obesity AAA, 4 cm History of diabetes mellitus type 2 History of dyslipidemia history of hypertension History of recent STEMI History of CAD with recent stent placement Admit to ICU for further management Hypoglycemia protocol Continue empiric IV antibiotics with concern for aspiration pneumonia Pulmonology consult for vent management IV electrolyte replacement as needed Consider cardiology consult if troponins increase Lovenox for DVT prophylaxis Protonix while on the vent GI prophylaxis N.p.o. Full code Discussed with RN and SW Disposition inpatient management as above Surrogate decision maker is undesignated History of Present Illness History of Present Illness Patient is a 70-year-old male with a recent prolonged hospitalization for STEMI and respiratory failure for which she was treated with arterial thrombolysis for a right leg popliteal artery aneurysm and also had left heart cath with placement of a stent in the LAD and RCA comes in today after he was found obtunded at his shelter facility. Apparently according to the nursing facility patient was in his usual state of health and he was conversational but then became altered. His blood glucose was found to be in the 30s. Glucose tabs and glucagon was given in route and his GCS reported at 6. Upon arrival patient's mental status did not improve and he was eventually intubated for airway protection. Of note EMS was bagging the patient through the nasal access. In the ED, patient was placed on a vent and pulmonology was consulted. Patient was also taken to the CT scanner for sanders scanning. Patient was started to wake up on the vent and sedation was ordered. 09/23/20 Patient examined at bedside. Intubated. Not on any sedation but unresponsive. Neurology consult in place. 09/24/20 Patient seen and examined at bedside. Remains intubated he is off sedation but still remains unresponsive. Planning for MRI brain in the morning. Further plan to be determined by MRI. 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 Plan of care discussed with bedside RN 09/25/20: Afebrile, currently breathing on ventilator with FiO2 50%, PEEP 5. Had CODE BLUE in ICU this morning; received 2 rounds of CPR, epinephrine, and atropine with ROSC. I believe MRI will be obtained today, per neurology. I had discussion with Dr. Rubalcava about his very poor prognosis due to multifactorial comorbidities. In our opinion continuing with present aggressive care would be futile. I would recommend that he should be made DNR, and after discussion with Dr. Rubalcava he agrees. Since there is no family and no one to discuss goals of care, we agreed to make patient DNR. Critical care time 30 minutes spent reviewing charts, reviewing labs, imaging, discussion with RN. 09/26/2020: Afebrile. Still on vent, with FiO2 45%, PEEP 5. After discussion with Dr. Rubalcava yesterday, patient was made DNR. In the ED is likely a poor can didate for weaning trials may need trach in near future if no significant improvement. MRI with no acute findings. Continue with pressure support and IV antibiotics. Critical care time 30 minutes reviewing charts, labs, examination, discussion with RN. 09/27/2020: Afebrile. On vent with FiO2 40%, PEEP 5. Potassium 2.8 today, will replace. Warfarin has been resumed. Discussed with pharmacy, will resume aspirin and Plavix. May need tracheostomy by the end of the week if no improvement in mental status. Chest x-ray today showed improving interstitial prominence, persistent left basilar opacities. Continue IV cefepime and suppo rtive care. Critical care time 30 minutes reviewing charts, labs, examination, discussion with RN. 09/28/2020: Afebrile. On ventilator with FiO2 40%, PEEP 5. Warfarin has been resumed; INR 1.3 today. Some morning labs still pending; hemoglobin yesterday 7.3, will continue to monitor. May need tracheostomy at some point if no improvement in mental status. Continue IV cefepime and supportive care. Critical care time 30 minutes reviewing charts, labs, examination, discussion with RN. 09/29/2020: Afebrile. Breathing on vent with FiO2 40%, PEEP 5. INR 1.2 today; pharmacy to help with warfarin dosing. White count within normal range, renal function stable. Spoke with pharmacy about cefepime 1 g every 8 hours dosing; this has been changed to cefepime 2 g every 8 hours. Possible tracheostomy at some point. Critical care time 30 minutes reviewing charts, labs, examination, discussion with RN. 09/30/20: Afebrile. Currently breathing on vent with FiO2 40%, PEEP 5. Continue antibiotics, cefepime 2 g every 8 hours. INR 1.4; continue warfarin dosing per pharmacy. Possible tracheostomy at some point. Critical care time 30 minutes reviewing charts, labs, examination, discussion with RN. Vitals/I&O Vitals/I&O: Vital Signs Date Time Temp Pulse Resp B/P (MAP) Pulse Ox O2 Delivery O2 Flow Rate FiO2 09/30/20 09:00 99.2 83 103/62 (76) 99 Ventilator 99.2 09/30/20 05:00 17 I & O 09/29/20 09/29/20 09/30/20 15:00 23:00 07:00 Intake Total 300 ml 1794 ml 884 ml Output Total 370 ml 525 ml 700 ml Balance -70 ml 1269 ml 184 ml Physical Exam General: Other (Intubated, nonresponsive) Heart: Regular rate, Normal S1, Normal S2 Lungs: Other (Intubated) Abdomen: Normal bowel sounds, Soft Extremities: No clubbing, No edema, Normal pulses Skin: No rashes, No significant lesion Labs Labs: Laboratory Tests Test 09/29/20 13:14 09/29/20 18:25 09/30/20 00:27 09/30/20 04:00 Glucose (Fingerstick) 162 mg/dL (70-99) 115 mg/dL (70-99) 144 mg/dL (70-99) White Blood Count 6.1 x10^3/uL (4.0-11.0) Red Blood Count 2.31 x10^6/uL (4.30-5.70) Hemoglobin 7.4 g/dL (13.0-17.5) Hematocrit 21.8 % (39.0-53.0) Mean Corpuscular Volume 94 fL (79-100) Mean Corpuscular Hemoglobin 32 pg (25-35) Mean Corpuscular Hemoglobin Concent 34 g/dL (31-37) Red Cell Distribution Width 19.0 % (11.5-14.5) Platelet Count 251 x10^3/uL (140-400) Neutrophils (%) (Auto) 55 % (31-73) Lymphocytes (%) (Auto) 35 % (24-48) Monocytes (%) (Auto) 5 % (0-9) Eosinophils (%) (Auto) 5 % (0-3) Basophils (%) (Auto) 0 % (0-3) Neutrophils # (Auto) 3.4 x10^3/uL (1.8-7.7) Lymphocytes # (Auto) 2.1 x10^3/uL (1.0-4.8) Monocytes # (Auto) 0.3 x10^3/uL (0.0-1.1) Eosinophils # (Auto) 0.3 x10^3/uL (0.0-0.7) Basophils # (Auto) 0.0 x10^3/uL (0.0-0.2) Prothrombin Time 16.8 SEC (11.7-14.0) Prothromb Time International Ratio 1.4 (0.8-1.1) Sodium Level 141 mmol/L (136-145) Potassium Level 3.5 mmol/L (3.5-5.1) Chloride Level 107 mmol/L (98-107) Carbon Dioxide Level 31 mmol/L (21-32) Anion Gap 3 (6-14) Blood Urea Nitrogen 12 mg/dL (8-26) Creatinine 0.7 mg/dL (0.7-1.3) Estimated GFR (Cockcroft-Gault) 110.9 Glucose Level 146 mg/dL (70-99) Calcium Level 8.1 mg/dL (8.5-10.1) Test 09/30/20 06:35 09/30/20 07:30 Glucose (Fingerstick) 152 mg/dL (70-99) O2 Saturation 97 % (92-99) Arterial Blood pH 7.47 (7.35-7.45) Arterial Blood pCO2 at Patient Temp 42 mmHg (35-46) Arterial Blood pO2 at Patient Temp 100 mmHg (65-108) Arterial Blood HCO3 29 mmol/L (21-28) Arterial Blood Base Excess 5 mmol/L (-3-3) FiO2 40 Assessment and Plan Assessmemt and Plan Problems Medical Problems: (1) NSTEMI (non-ST elevated myocardial infarction) Status: Acute (2) Obtundation Status: Acute (3) Respiratory arrest Status: Acute Comment Review of Relevant I have reviewed the following items denise (where applicable) has been applied. Medications: Current Medications Medications (Trade) Dose Ordered Sig/Dru Route PRN Reason Start Time Stop Time Status Last Admin Dose Admin Cefepime HCl (Maxipime) 2 gm Q8HRS IVP 09/29/20 14:00 09/30/20 05:56 Warfarin Sodium (Coumadin) 3 mg 1X WARF ONCE PO 09/29/20 16:00 09/29/20 16:01 DC 09/29/20 16:55 Justifications for Admission Other Justification Hypoglycemia and altered mental status. NAIDA LÓPEZ MD Sep 30, 2020 10:25
--- NOTE | 2020-09-30 10:52 | NUR ---
Pharmacy Warfarin Dosing Note S: Pharmacy consulted to assist with anticoagulation therapy O: DEMETRICE HWOE is a 70 year old M with HIT diagnosed on last admission LABS: Last INR: 1.4 Last HGB: 7.4 Last HCT: 21.8 Last PLT: 251 Last dose of 3 mg given on 09/29/20 at 1655 Vitamin K given: N Ongoing Drug Interactions: ASA, Plavix(STEMI on last admission) A:INR of 1.4 is below desired range, trending up. Target range for this patient is: 2 - 3 P: Warfarin dose: 3 mg Today at 1600 Bridge Therapy: None Next INR due 10/01/20 Pharmacy anticoagulation service will continue to follow. HERBERT PAYNE [facility], 09/30/20 1814
[2020-09-30] MEDS: ASPIRIN CHEWABLE 81 MG TABLET. PO SCH (11:46)
[2020-09-30] MEDS ORDERED: WARFARIN 3 MG TABLET. PO ONE (16:00)
[2020-10-01] VITALS (23 sets, daily range): BP systolic 86–153; BP diastolic 50–87
[2020-10-01] MEDS: PROPOFOL 100 ML IV PRN ×4 (03:28→22:31)
[2020-10-01] MEDS: INSULIN LISPRO 300 UNITS/3 ML VIAL. SQ SCH ×5 (06:00→23:29)
[2020-10-01 06:12] LABS: BASO % 1 % (0-3); EOS # 0.3 x10^3/uL (0.0-0.7); EOS % 4 % (0-3); HEMATOCRIT 22.2 % (39.0-53.0); HEMOGLOBIN 7.4 g/dL (13.0-17.5); LYMPH # 2.2 x10^3/uL (1.0-4.8); LYMPH % 32 % (24-48); MEAN CORPUSCULAR HEMOGLOBIN 32 pg (25-35); MEAN CORPUSCULAR HGB CONC 33 g/dL (31-37); MEAN CORPUSCULAR VOLUME 95 fL (79-100); MONO # 0.4 x10^3/uL (0.0-1.1); MONO % 5 % (0-9); NEUT # 4.1 x10^3/uL (1.8-7.7); NEUT % 59 % (31-73); PLATELET COUNT 250 x10^3/uL (140-400); RED BLOOD COUNT 2.34 x10^6/uL (4.30-5.70); RED CELL DISTRIBUTION WIDTH 18.8 % (11.5-14.5); WHITE BLOOD COUNT 6.9 x10^3/uL (4.0-11.0)
[2020-10-01 06:21] LABS: CREATININE 0.6 mg/dL (0.7-1.3); GFR 132.4; POTASSIUM 3.6 mmol/L (3.5-5.1)
[2020-10-01] MEDS: CEFEPIME HCL IV Push 2 GM VIAL. IVP SCH ×3 (06:23→22:32)
--- NOTE | 2020-10-01 06:25 | PDOC ---
PULMONARY PROGRESS NOTES DATE: 10/01/20 TIME: 06:23 Subjective on vent support 40%/5 S/P cardiac arrest 09/26/20, has large ett secretion on propofol Vitals Vital Signs Date Time Temp Pulse Resp B/P (MAP) Pulse Ox O2 Delivery O2 Flow Rate FiO2 10/01/20 05:15 100 Ventilator 10/01/20 04:00 100.3 88 109/60 (76) 100.3 10/01/20 03:00 23 Comments ros unable to obtain sedated on vent HEENT: Other (nc at perrl nose clear orally intubated neck no lad no thyromegaly) Lungs: Other (Intubated) Cardiovascular: S1, S2 Abdomen: Soft, Non-tender, Other (Obese) Extremities: Other (1+ edema) Skin: Warm Labs Laboratory Tests Test 09/29/20 07:04 09/29/20 13:14 09/29/20 18:25 09/30/20 00:27 O2 Saturation 97 % (92-99) Arterial Blood pH 7.48 (7.35-7.45) Arterial Blood pCO2 at Patient Temp 38 mmHg (35-46) Arterial Blood pO2 at Patient Temp 96 mmHg (65-108) Arterial Blood HCO3 28 mmol/L (21-28) Arterial Blood Base Excess 4 mmol/L (-3-3) FiO2 40 Glucose (Fingerstick) 162 mg/dL (70-99) 115 mg/dL (70-99) 144 mg/dL (70-99) Test 09/30/20 04:00 09/30/20 06:35 09/30/20 07:30 09/30/20 11:38 White Blood Count 6.1 x10^3/uL (4.0-11.0) Red Blood Count 2.31 x10^6/uL (4.30-5.70) Hemoglobin 7.4 g/dL (13.0-17.5) Hematocrit 21.8 % (39.0-53.0) Mean Corpuscular Volume 94 fL (79-100) Mean Corpuscular Hemoglobin 32 pg (25-35) Mean Corpuscular Hemoglobin Concent 34 g/dL (31-37) Red Cell Distribution Width 19.0 % (11.5-14.5) Platelet Count 251 x10^3/uL (140-400) Neutrophils (%) (Auto) 55 % (31-73) Lymphocytes (%) (Auto) 35 % (24-48) Monocytes (%) (Auto) 5 % (0-9) Eosinophils (%) (Auto) 5 % (0-3) Basophils (%) (Auto) 0 % (0-3) Neutrophils # (Auto) 3.4 x10^3/uL (1.8-7.7) Lymphocytes # (Auto) 2.1 x10^3/uL (1.0-4.8) Monocytes # (Auto) 0.3 x10^3/uL (0.0-1.1) Eosinophils # (Auto) 0.3 x10^3/uL (0.0-0.7) Basophils # (Auto) 0.0 x10^3/uL (0.0-0.2) Prothrombin Time 16.8 SEC (11.7-14.0) Prothromb Time International Ratio 1.4 (0.8-1.1) Sodium Level 141 mmol/L (136-145) Potassium Level 3.5 mmol/L (3.5-5.1) Chloride Level 107 mmol/L (98-107) Carbon Dioxide Level 31 mmol/L (21-32) Anion Gap 3 (6-14) Blood Urea Nitrogen 12 mg/dL (8-26) Creatinine 0.7 mg/dL (0.7-1.3) Estimated GFR (Cockcroft-Gault) 110.9 Glucose Level 146 mg/dL (70-99) Calcium Level 8.1 mg/dL (8.5-10.1) Glucose (Fingerstick) 152 mg/dL (70-99) 131 mg/dL (70-99) O2 Saturation 97 % (92-99) Arterial Blood pH 7.47 (7.35-7.45) Arterial Blood pCO2 at Patient Temp 42 mmHg (35-46) Arterial Blood pO2 at Patient Temp 100 mmHg (65-108) Arterial Blood HCO3 29 mmol/L (21-28) Arterial Blood Base Excess 5 mmol/L (-3-3) FiO2 40 Test 09/30/20 18:13 09/30/20 23:26 10/01/20 05:51 Glucose (Fingerstick) 159 mg/dL (70-99) 141 mg/dL (70-99) 143 mg/dL (70-99) Laboratory Tests Test 09/30/20 06:35 09/30/20 07:30 09/30/20 11:38 09/30/20 18:13 Glucose (Fingerstick) 152 mg/dL (70-99) 131 mg/dL (70-99) 159 mg/dL (70-99) O2 Saturation 97 % (92-99) Arterial Blood pH 7.47 (7.35-7.45) Arterial Blood pCO2 at Patient Temp 42 mmHg (35-46) Arterial Blood pO2 at Patient Temp 100 mmHg (65-108) Arterial Blood HCO3 29 mmol/L (21-28) Arterial Blood Base Excess 5 mmol/L (-3-3) FiO2 40 Test 09/30/20 23:26 10/01/20 05:51 Glucose (Fingerstick) 141 mg/dL (70-99) 143 mg/dL (70-99) Medications Active Scripts Medications Dose Route/Sig Max Daily Dose Days Date Category Amiodarone Hcl 200 Mg Tablet 400 Mg PO DAILY 09/18/20 Rx [Warfarin Per Pharmacy] 1 EACH Each 1 Each MC PRN DAILY PRN 30 09/18/20 Rx Clopidogrel (Clopidogrel Bisulfate) 75 Mg Tablet 75 Mg PO DAILYWBKFT 90 09/18/20 Rx Glimepiride 4 Mg Tablet 1 Tab PO DAILY 09/13/20 Reported Furosemide 40 Mg Tablet 1 Tab PO BID 09/13/20 Reported Symbicort 160-4.5 Mcg Inhaler (Budesonide/Formoterol Fumarate) 10.2 Gm Hfa.aer.ad 1 Puff INH DAILY 09/13/20 Reported Losartan-Hctz 100-12.5 Mg Tab (Losartan/Hydrochlorothiazide) 1 Each Tablet 1 Tab PO DAILY 09/13/20 Reported Nitrofurantoin Kidder-Mcr 100 Mg (Nitrofurantoin Monohyd/M-Cryst) 100 Mg Capsule 1 Cap PO BID 09/13/20 Reported Betamethasone Valerate 60 Ml Lotion 1 TP QHS 09/13/20 Reported Atorvastatin Calcium 40 Mg Tablet 1 Tab PO DAILY 09/13/20 Reported Diltiazem 24Hr Cd (Diltiazem HCl) 240 Mg Cap.er.24h 1 Cap PO DAILY 09/13/20 Reported Nystop (Nystatin) 60 Gm Powder 1 Sudheer TP BID 09/13/20 Reported Humalog (Insulin Lispro) 100 Unit/1 Ml Insuln.pen 0 Units SQ TIDWMEALS 30 08/06/18 Rx Duoneb 0.5-3(2.5) Mg/3 Ml (Albuterol/Ipratropium) 3 Ml Ampul.neb 3 Ml NEB RTQID 08/06/18 Rx Aspirin 325 Mg Tablet 325 Mg PO DAILYWBKFT 30 07/22/17 Rx Metoprolol Tartrate 25 Mg Tablet 25 Mg PO BID 30 07/22/17 Rx Montelukast Sodium Tablet (Montelukast Sodium) 10 Mg Tablet 10 Mg PO QHS 07/22/17 Rx Gabapentin 600 Mg Tablet 600 Mg PO BID 30 07/22/17 Rx Pepcid (Famotidine) 20 Mg Tablet 20 Mg PO BID 05/17/13 Reported Comments cxr reviewed 1.Improving interstitial prominence, persistent left basilar opacities. ett ok Impression . 1. Acute on chronic respiratory failure secondary to multifactorial etiologies including hypoglycemic encephalopathy. No evidence of new stroke. 2. Possible sepsis--- ID following, on antibiotics 3. Hypoglycemia./ encephalopathy 4. The patient with prior history of cerebrovascular accident with left-sided weakness. 5. Underlying chronic obstructive pulmonary disease. 6. Morbid obesity. 7. Peripheral vascular disease. 8. Abnormal CT chest with bibasilar atelectasis. No significant mucus plugging. Tiny pleural effusion seen. 9. Persistent encephalopathy. Plan . Updated 10/01/20 Continue current vent support 10/450/40/5 will dc sedation cpap trial when awake need trach if doesn't wake up as he will not be able to protect airway has large ett secretion Follow CXR/ABG --make changes as needed Follow neurology recs-- MRI neg Continue ABX on cefepime DVT/GI PPX: warfarin D/W RN and RT Patient is a DNR. will consider trach next week if no improvement Updated 09/30/20 Continue current vent support 10/450/40/5 will dc sedation cpap trial when awake need trach if doesnt wake up as will not be able to protect airway Follow CXR/ABG --make changes as needed Follow neurology recs-- MRI neg Continue ABX on cefepime DVT/GI PPX: warfarin D/W RN and RT Patient is a DNR. will consider trach next week if no improvement Updated 09/29/20 Continue current vent support 10/450/40/5 Pt. is not best candidate for weaning/extubation, as he is high risk for re- intubation 2/2 lack of ability to protect his own airway, will require tracheostomy We will discontinue propofol again and assess for his mental status. Follow CXR/ABG --make changes as needed Follow neurology recs-- MRI neg Continue ABX on cefepime DVT/GI PPX: warfarin D/W RN and RT Patient is a DNR. will consider trach next week if no improvement Updated 09/28/20 Continue current vent support 10/450/40/5 Pt. is not best candidate for weaning/extubation, as he is high risk for re- intubation 2/2 lack of ability to protect his own airway, may require tracheostomy We will discontinue propofol again and assess for his mental status. Follow CXR/ABG --make changes as needed Follow neurology recs-- MRI neg Continue ABX on cefepime DVT/GI PPX: warfarin D/W RN and RT Patient is a DNR. CC time 30 mins Updated 09/27/20 Continue current vent support 10/450/40/5 Pt. is not best candidate for weaning/extubation, as he is high risk for re- intubation 2/2 lack of ability to protect his own airway, may require tracheostomy Follow CXR/ABG --make changes as needed Follow neurology recs-- MRI neg Continue ABX on cefepime DVT/GI PPX: warfarin D/W RN and RT Patient is a DNR. CC time 30 mins DESIRE DE LA GARZA MD Oct 01, 2020 06:25
[2020-10-01] MEDS: CLOPIDOGREL BISULFATE 75 MG TABLET PO SCH (07:51)
[2020-10-01] MEDS: ASPIRIN CHEWABLE 81 MG TABLET. PO SCH (07:51)
[2020-10-01] MEDS: PANTOPRAZOLE IV PUSH 40 MG VIAL. IVP SCH (07:52)
[2020-10-01 09:03] LABS: BASE EXCESS ABG 1 mmol/L (-3-3); HCO3 ABG 25 mmol/L (21-28); PCO2 ABG 36 mmHg (35-46); PO2 ABG 109 mmHg (65-108); SAT O2 ABG 98 % (92-99)
[2020-10-01 09:32] LABS: FIO2 ABG 40%
--- NOTE | 2020-10-01 09:46 | PDOC ---
[facility] PROGRESS NOTE Date of Service DOS: DATE: 10/01/20 TIME: 09:43 Chief Complaint Chief Complaint Acute metabolic, infectious encephalopathy Acute respiratory failure Healthcare associated pneumonia, possible aspiration, possible gram-negative organisms, possibly gram-positive organism Acute hypoglycemia Hypokalemia Elevated troponins concerning for type II demand ischemia Severe protein malnutrition Morbid obesity AAA, 4 cm History of diabetes mellitus type 2 History of dyslipidemia history of hypertension History of recent STEMI History of CAD with recent stent placement Admit to ICU for further management Hypoglycemia protocol Continue empiric IV antibiotics with concern for aspiration pneumonia Pulmonology consult for vent management IV electrolyte replacement as needed Consider cardiology consult if troponins increase Lovenox for DVT prophylaxis Protonix while on the vent GI prophylaxis N.p.o. Full code Discussed with RN and SW Disposition inpatient management as above Surrogate decision maker is undesignated History of Present Illness History of Present Illness Patient is a 70-year-old male with a recent prolonged hospitalization for STEMI and respiratory failure for which she was treated with arterial thrombolysis for a right leg popliteal artery aneurysm and also had left heart cath with placement of a stent in the LAD and RCA comes in today after he was found obtunded at his senior living facility. Apparently according to the nursing facility patient was in his usual state of health and he was conversational but then became altered. His blood glucose was found to be in the 30s. Glucose tabs and glucagon was given in route and his GCS reported at 6. Upon arrival patient's mental status did not improve and he was eventually intubated for airway protection. Of note EMS was bagging the patient through the nasal access. In the ED, patient was placed on a vent and pulmonology was consulted. Patient was also taken to the CT scanner for sanders scanning. Patient was started to wake up on the vent and sedation was ordered. 09/23/20 Patient examined at bedside. Intubated. Not on any sedation but unresponsive. Neurology consult in place. 09/24/20 Patient seen and examined at bedside. Remains intubated he is off sedation but still remains unresponsive. Planning for MRI brain in the morning. Further plan to be determined by MRI. 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 Plan of care discussed with bedside RN 09/25/20: Afebrile, currently breathing on ventilator with FiO2 50%, PEEP 5. Had CODE BLUE in ICU this morning; received 2 rounds of CPR, epinephrine, and atropine with ROSC. I believe MRI will be obtained today, per neurology. I had discussion with Dr. Rubalcava about his very poor prognosis due to multifactorial comorbidities. In our opinion continuing with present aggressive care would be futile. I would recommend that he should be made DNR, and after discussion with Dr. Rubalcava he agrees. Since there is no family and no one to discuss goals of care, we agreed to make patient DNR. Critical care time 30 minutes spent reviewing charts, reviewing labs, imaging, discussion with RN. 09/26/2020: Afebrile. Still on vent, with FiO2 45%, PEEP 5. After discussion with Dr. Rubalcava yesterday, patient was made DNR. In the ED is likely a poor can didate for weaning trials may need trach in near future if no significant improvement. MRI with no acute findings. Continue with pressure support and IV antibiotics. Critical care time 30 minutes reviewing charts, labs, examination, discussion with RN. 09/27/2020: Afebrile. On vent with FiO2 40%, PEEP 5. Potassium 2.8 today, will replace. Warfarin has been resumed. Discussed with pharmacy, will resume aspirin and Plavix. May need tracheostomy by the end of the week if no improvement in mental status. Chest x-ray today showed improving interstitial prominence, persistent left basilar opacities. Continue IV cefepime and suppo rtive care. Critical care time 30 minutes reviewing charts, labs, examination, discussion with RN. 09/28/2020: Afebrile. On ventilator with FiO2 40%, PEEP 5. Warfarin has been resumed; INR 1.3 today. Some morning labs still pending; hemoglobin yesterday 7.3, will continue to monitor. May need tracheostomy at some point if no improvement in mental status. Continue IV cefepime and supportive care. Critical care time 30 minutes reviewing charts, labs, examination, discussion with RN. 09/29/2020: Afebrile. Breathing on vent with FiO2 40%, PEEP 5. INR 1.2 today; pharmacy to help with warfarin dosing. White count within normal range, renal function stable. Spoke with pharmacy about cefepime 1 g every 8 hours dosing; this has been changed to cefepime 2 g every 8 hours. Possible tracheostomy at some point. Critical care time 30 minutes reviewing charts, labs, examination, discussion with RN. 09/30/20: Afebrile. Currently breathing on vent with FiO2 40%, PEEP 5. Continue antibiotics, cefepime 2 g every 8 hours. INR 1.4; continue warfarin dosing per pharmacy. Possible tracheostomy at some point. Critical care time 30 minutes reviewing charts, labs, examination, discussion with RN. 10/01/2020: Febrile overnight with T-max 100.3 F. On ventilator with FiO2 40%, PEEP 5. Continue antibiotics, cefepime 2 g every 8 hours. INR 1.4, still subtherapeutic; continue warfarin dosing per pharmacy. Possible tracheostomy at some point. Critical care time 30 minutes reviewing charts, labs, examination, discussion with RN. Vitals/I&O Vitals/I&O: Vital Signs Date Time Temp Pulse Resp B/P (MAP) Pulse Ox O2 Delivery O2 Flow Rate FiO2 10/01/20 08:28 100 Ventilator 10/01/20 08:00 99.0 96 16 125/69 (87) 99.0 I & O 09/30/20 09/30/20 10/01/20 14:59 22:59 06:59 Intake Total 300 ml 300 ml 3190 ml Output Total 625 ml 1000 ml 400 ml Balance -325 ml -700 ml 2790 ml Physical Exam General: Other (Intubated, nonresponsive) Heart: Regular rate, Normal S1, Normal S2 Lungs: Other (Intubated) Abdomen: Normal bowel sounds, Soft Extremities: No clubbing, No edema, Normal pulses Skin: No rashes, No significant lesion Labs Labs: Laboratory Tests Test 09/30/20 11:38 09/30/20 18:13 09/30/20 23:26 10/01/20 05:30 Glucose (Fingerstick) 131 mg/dL (70-99) 159 mg/dL (70-99) 141 mg/dL (70-99) White Blood Count 6.9 x10^3/uL (4.0-11.0) Red Blood Count 2.34 x10^6/uL (4.30-5.70) Hemoglobin 7.4 g/dL (13.0-17.5) Hematocrit 22.2 % (39.0-53.0) Mean Corpuscular Volume 95 fL (79-100) Mean Corpuscular Hemoglobin 32 pg (25-35) Mean Corpuscular Hemoglobin Concent 33 g/dL (31-37) Red Cell Distribution Width 18.8 % (11.5-14.5) Platelet Count 250 x10^3/uL (140-400) Neutrophils (%) (Auto) 59 % (31-73) Lymphocytes (%) (Auto) 32 % (24-48) Monocytes (%) (Auto) 5 % (0-9) Eosinophils (%) (Auto) 4 % (0-3) Basophils (%) (Auto) 1 % (0-3) Neutrophils # (Auto) 4.1 x10^3/uL (1.8-7.7) Lymphocytes # (Auto) 2.2 x10^3/uL (1.0-4.8) Monocytes # (Auto) 0.4 x10^3/uL (0.0-1.1) Eosinophils # (Auto) 0.3 x10^3/uL (0.0-0.7) Basophils # (Auto) 0.0 x10^3/uL (0.0-0.2) Prothrombin Time 16.0 SEC (11.7-14.0) Prothromb Time International Ratio 1.3 (0.8-1.1) Sodium Level 140 mmol/L (136-145) Potassium Level 3.6 mmol/L (3.5-5.1) Chloride Level 107 mmol/L (98-107) Carbon Dioxide Level 29 mmol/L (21-32) Anion Gap 4 (6-14) Blood Urea Nitrogen 13 mg/dL (8-26) Creatinine 0.6 mg/dL (0.7-1.3) Estimated GFR (Cockcroft-Gault) 132.4 Glucose Level 150 mg/dL (70-99) Calcium Level 8.0 mg/dL (8.5-10.1) Test 10/01/20 05:51 10/01/20 08:49 Glucose (Fingerstick) 143 mg/dL (70-99) O2 Saturation 98 % (92-99) Arterial Blood pH 7.45 (7.35-7.45) Arterial Blood pCO2 at Patient Temp 36 mmHg (35-46) Arterial Blood pO2 at Patient Temp 109 mmHg (65-108) Arterial Blood HCO3 25 mmol/L (21-28) Arterial Blood Base Excess 1 mmol/L (-3-3) FiO2 40% Assessment and Plan Assessmemt and Plan Problems Medical Problems: (1) NSTEMI (non-ST elevated myocardial infarction) Status: Acute (2) Obtundation Status: Acute (3) Respiratory arrest Status: Acute Comment Review of Relevant I have reviewed the following items denise (where applicable) has been applied. Medications: Current Medications Medications (Trade) Dose Ordered Sig/Dru Route PRN Reason Start Time Stop Time Status Last Admin Dose Admin Warfarin Sodium (Coumadin) 3 mg 1X WARF ONCE PO 09/30/20 16:00 09/30/20 16:01 DC 09/30/20 16:00 Justifications for Admission Other Justification Hypoglycemia and altered mental status. NAIDA LÓPEZ MD Oct 01, 2020 09:46
--- NOTE | 2020-10-01 12:32 | NUR ---
Pharmacy Warfarin Dosing Note S: Pharmacy consulted to assist with anticoagulation therapy O: DEMETRICE HOWE is a 70 year old M with HIT treatment LABS: Last INR: 1.3 Last HGB: 7.4 Last HCT: 22.2 Last PLT: 250 Last dose of 3 mg given on 09/30/20 at 1655 Vitamin K given: N A:INR of 1.3 is below desired range of 2 - 3. INR trending down on stable dosing of 3 mg/day. Will give 5 mg today. P: Warfarin dose: 5 mg Today at 1600 Bridge Therapy: None Next INR due 10/02/20 Pharmacy anticoagulation service will continue to follow. HERBERT PAYNE [facility], 10/01/20 [id number]
[2020-10-01] MEDS: IV DEXTROSE 5 %-0.45 % NACL 1,000 ML IV SCH (14:30)
[2020-10-01] MEDS ORDERED: WARFARIN 5 MG TABLET. PO ONE (16:00)
[2020-10-02] VITALS (28 sets, daily range): BP systolic 97–165; BP diastolic 57–91
[2020-10-02] MEDS: INSULIN LISPRO 300 UNITS/3 ML VIAL. SQ SCH ×4 (05:01→23:57)
[2020-10-02] MEDS: CEFEPIME HCL IV Push 2 GM VIAL. IVP SCH ×3 (05:01→23:49)
[2020-10-02 05:24] LABS: BASO % 1 % (0-3); EOS # 0.3 x10^3/uL (0.0-0.7); EOS % 5 % (0-3); LYMPH # 2.1 x10^3/uL (1.0-4.8); LYMPH % 34 % (24-48); MEAN CORPUSCULAR HEMOGLOBIN 31 pg (25-35); MEAN CORPUSCULAR HGB CONC 33 g/dL (31-37); MEAN CORPUSCULAR VOLUME 96 fL (79-100); MONO # 0.3 x10^3/uL (0.0-1.1); MONO % 5 % (0-9); NEUT # 3.4 x10^3/uL (1.8-7.7); NEUT % 55 % (31-73); PLATELET COUNT 237 x10^3/uL (140-400); RED BLOOD COUNT 2.02 x10^6/uL (4.30-5.70); WHITE BLOOD COUNT 6.2 x10^3/uL (4.0-11.0)
[2020-10-02 05:33] LABS: HEMATOCRIT 19.3 % (39.0-53.0); HEMOGLOBIN 6.3 g/dL (13.0-17.5)
[2020-10-02 05:34] LABS: PROTHROMBIN TIME PATIENT 16.6 SEC (11.7-14.0)
[2020-10-02 05:45] LABS: CALCIUM 8.1 mg/dL (8.5-10.1); CREATININE 0.6 mg/dL (0.7-1.3); GFR 132.4; POTASSIUM 3.3 mmol/L (3.5-5.1)
--- NOTE | 2020-10-02 05:56 | PDOC ---
PULMONARY PROGRESS NOTES DATE: 10/02/20 TIME: 05:52 Subjective on vent support 40%/5 Sedated Labs this morning show anemia , nursing reportsno outward signs of bleeding or other concerns overnight Vitals Vital Signs Date Time Temp Pulse Resp B/P (MAP) Pulse Ox O2 Delivery O2 Flow Rate FiO2 10/02/20 05:00 77 16 119/72 (88) 100 Ventilator 10/02/20 04:00 98.7 98.7 Comments ros unable to obtain sedated on vent HEENT: Other (nc at perrl nose clear orally intubated neck no lad no thyromegaly) Lungs: Other (Intubated) Cardiovascular: S1, S2 Abdomen: Soft, Non-tender, Other (Obese) Extremities: Other (1+ edema) Skin: Warm Labs Laboratory Tests Test 09/30/20 06:35 09/30/20 07:30 09/30/20 11:38 09/30/20 18:13 Glucose (Fingerstick) 152 mg/dL (70-99) 131 mg/dL (70-99) 159 mg/dL (70-99) O2 Saturation 97 % (92-99) Arterial Blood pH 7.47 (7.35-7.45) Arterial Blood pCO2 at Patient Temp 42 mmHg (35-46) Arterial Blood pO2 at Patient Temp 100 mmHg (65-108) Arterial Blood HCO3 29 mmol/L (21-28) Arterial Blood Base Excess 5 mmol/L (-3-3) FiO2 40 Test 09/30/20 23:26 10/01/20 05:30 10/01/20 05:51 10/01/20 08:49 Glucose (Fingerstick) 141 mg/dL (70-99) 143 mg/dL (70-99) White Blood Count 6.9 x10^3/uL (4.0-11.0) Red Blood Count 2.34 x10^6/uL (4.30-5.70) Hemoglobin 7.4 g/dL (13.0-17.5) Hematocrit 22.2 % (39.0-53.0) Mean Corpuscular Volume 95 fL (79-100) Mean Corpuscular Hemoglobin 32 pg (25-35) Mean Corpuscular Hemoglobin Concent 33 g/dL (31-37) Red Cell Distribution Width 18.8 % (11.5-14.5) Platelet Count 250 x10^3/uL (140-400) Neutrophils (%) (Auto) 59 % (31-73) Lymphocytes (%) (Auto) 32 % (24-48) Monocytes (%) (Auto) 5 % (0-9) Eosinophils (%) (Auto) 4 % (0-3) Basophils (%) (Auto) 1 % (0-3) Neutrophils # (Auto) 4.1 x10^3/uL (1.8-7.7) Lymphocytes # (Auto) 2.2 x10^3/uL (1.0-4.8) Monocytes # (Auto) 0.4 x10^3/uL (0.0-1.1) Eosinophils # (Auto) 0.3 x10^3/uL (0.0-0.7) Basophils # (Auto) 0.0 x10^3/uL (0.0-0.2) Prothrombin Time 16.0 SEC (11.7-14.0) Prothromb Time International Ratio 1.3 (0.8-1.1) Sodium Level 140 mmol/L (136-145) Potassium Level 3.6 mmol/L (3.5-5.1) Chloride Level 107 mmol/L (98-107) Carbon Dioxide Level 29 mmol/L (21-32) Anion Gap 4 (6-14) Blood Urea Nitrogen 13 mg/dL (8-26) Creatinine 0.6 mg/dL (0.7-1.3) Estimated GFR (Cockcroft-Gault) 132.4 Glucose Level 150 mg/dL (70-99) Calcium Level 8.0 mg/dL (8.5-10.1) O2 Saturation 98 % (92-99) Arterial Blood pH 7.45 (7.35-7.45) Arterial Blood pCO2 at Patient Temp 36 mmHg (35-46) Arterial Blood pO2 at Patient Temp 109 mmHg (65-108) Arterial Blood HCO3 25 mmol/L (21-28) Arterial Blood Base Excess 1 mmol/L (-3-3) FiO2 40% Test 10/01/20 13:12 10/01/20 18:11 10/01/20 23:28 10/02/20 05:00 Glucose (Fingerstick) 157 mg/dL (70-99) 163 mg/dL (70-99) 134 mg/dL (70-99) 138 mg/dL (70-99) White Blood Count 6.2 x10^3/uL (4.0-11.0) Red Blood Count 2.02 x10^6/uL (4.30-5.70) Hemoglobin 6.3 g/dL (13.0-17.5) Hematocrit 19.3 % (39.0-53.0) Mean Corpuscular Volume 96 fL (79-100) Mean Corpuscular Hemoglobin 31 pg (25-35) Mean Corpuscular Hemoglobin Concent 33 g/dL (31-37) Red Cell Distribution Width 19.0 % (11.5-14.5) Platelet Count 237 x10^3/uL (140-400) Neutrophils (%) (Auto) 55 % (31-73) Lymphocytes (%) (Auto) 34 % (24-48) Monocytes (%) (Auto) 5 % (0-9) Eosinophils (%) (Auto) 5 % (0-3) Basophils (%) (Auto) 1 % (0-3) Neutrophils # (Auto) 3.4 x10^3/uL (1.8-7.7) Lymphocytes # (Auto) 2.1 x10^3/uL (1.0-4.8) Monocytes # (Auto) 0.3 x10^3/uL (0.0-1.1) Eosinophils # (Auto) 0.3 x10^3/uL (0.0-0.7) Basophils # (Auto) 0.0 x10^3/uL (0.0-0.2) Sodium Level 142 mmol/L (136-145) Potassium Level 3.3 mmol/L (3.5-5.1) Chloride Level 107 mmol/L (98-107) Carbon Dioxide Level 31 mmol/L (21-32) Anion Gap 4 (6-14) Blood Urea Nitrogen 14 mg/dL (8-26) Creatinine 0.6 mg/dL (0.7-1.3) Estimated GFR (Cockcroft-Gault) 132.4 Glucose Level 145 mg/dL (70-99) Calcium Level 8.1 mg/dL (8.5-10.1) Laboratory Tests Test 10/01/20 08:49 10/01/20 13:12 10/01/20 18:11 10/01/20 23:28 O2 Saturation 98 % (92-99) Arterial Blood pH 7.45 (7.35-7.45) Arterial Blood pCO2 at Patient Temp 36 mmHg (35-46) Arterial Blood pO2 at Patient Temp 109 mmHg (65-108) Arterial Blood HCO3 25 mmol/L (21-28) Arterial Blood Base Excess 1 mmol/L (-3-3) FiO2 40% Glucose (Fingerstick) 157 mg/dL (70-99) 163 mg/dL (70-99) 134 mg/dL (70-99) Test 10/02/20 05:00 White Blood Count 6.2 x10^3/uL (4.0-11.0) Red Blood Count 2.02 x10^6/uL (4.30-5.70) Hemoglobin 6.3 g/dL (13.0-17.5) Hematocrit 19.3 % (39.0-53.0) Mean Corpuscular Volume 96 fL (79-100) Mean Corpuscular Hemoglobin 31 pg (25-35) Mean Corpuscular Hemoglobin Concent 33 g/dL (31-37) Red Cell Distribution Width 19.0 % (11.5-14.5) Platelet Count 237 x10^3/uL (140-400) Neutrophils (%) (Auto) 55 % (31-73) Lymphocytes (%) (Auto) 34 % (24-48) Monocytes (%) (Auto) 5 % (0-9) Eosinophils (%) (Auto) 5 % (0-3) Basophils (%) (Auto) 1 % (0-3) Neutrophils # (Auto) 3.4 x10^3/uL (1.8-7.7) Lymphocytes # (Auto) 2.1 x10^3/uL (1.0-4.8) Monocytes # (Auto) 0.3 x10^3/uL (0.0-1.1) Eosinophils # (Auto) 0.3 x10^3/uL (0.0-0.7) Basophils # (Auto) 0.0 x10^3/uL (0.0-0.2) Sodium Level 142 mmol/L (136-145) Potassium Level 3.3 mmol/L (3.5-5.1) Chloride Level 107 mmol/L (98-107) Carbon Dioxide Level 31 mmol/L (21-32) Anion Gap 4 (6-14) Blood Urea Nitrogen 14 mg/dL (8-26) Creatinine 0.6 mg/dL (0.7-1.3) Estimated GFR (Cockcroft-Gault) 132.4 Glucose Level 145 mg/dL (70-99) Glucose (Fingerstick) 138 mg/dL (70-99) Calcium Level 8.1 mg/dL (8.5-10.1) Medications Active Scripts Medications Dose Route/Sig Max Daily Dose Days Date Category Amiodarone Hcl 200 Mg Tablet 400 Mg PO DAILY 09/18/20 Rx [Warfarin Per Pharmacy] 1 EACH Each 1 Each MC PRN DAILY PRN 09/18/20 Rx Clopidogrel (Clopidogrel Bisulfate) 75 Mg Tablet 75 Mg PO DAILYWBK09/18/20 Rx Glimepiride 4 Mg Tablet 1 Tab PO DAILY 09/13/20 Reported Furosemide 40 Mg Tablet 1 Tab PO BID 09/13/20 Reported Symbicort 160-4.5 Mcg Inhaler (Budesonide/Formoterol Fumarate) 10.2 Gm Hfa.aer.ad 1 Puff INH DAILY 09/13/20 Reported Losartan-Hctz 100-12.5 Mg Tab (Losartan/Hydrochlorothiazide) 1 Each Tablet 1 Tab PO DAILY 09/13/20 Reported Nitrofurantoin Titus-Mcr 100 Mg (Nitrofurantoin Monohyd/M-Cryst) 100 Mg Capsule 1 Cap PO BID 09/13/20 Reported Betamethasone Valerate 60 Ml Lotion 1 TP QHS 09/13/20 Reported Atorvastatin Calcium 40 Mg Tablet 1 Tab PO DAILY 09/13/20 Reported Diltiazem 24Hr Cd (Diltiazem HCl) 240 Mg Cap.er.24h 1 Cap PO DAILY 09/13/20 Reported Nystop (Nystatin) 60 Gm Powder 1 Sudheer TP BID 09/13/20 Reported Humalog (Insulin Lispro) 100 Unit/1 Ml Insuln.pen 0 Units SQ TIDWMEALS 08/06/18 Rx Duoneb 0.5-3(2.5) Mg/3 Ml (Albuterol/Ipratropium) 3 Ml Ampul.neb 3 Ml NEB RTQID 08/06/18 Rx Aspirin 325 Mg Tablet 325 Mg PO DAILYWBKFT 30 07/22/17 Rx Metoprolol Tartrate 25 Mg Tablet 25 Mg PO BID 30 07/22/17 Rx Montelukast Sodium Tablet (Montelukast Sodium) 10 Mg Tablet 10 Mg PO QHS 07/22/17 Rx Gabapentin 600 Mg Tablet 600 Mg PO BID 30 07/22/17 Rx Pepcid (Famotidine) 20 Mg Tablet 20 Mg PO BID 05/17/13 Reported Comments cxr reviewed 1.Improving interstitial prominence, persistent left basilar opacities. ett ok Impression . 1. Acute on chronic respiratory failure secondary to multifactorial etiologies including hypoglycemic encephalopathy. No evidence of new stroke. 2. Possible sepsis--- on antibiotics 3. Hypoglycemia./ encephalopathy 4. The patient with prior history of cerebrovascular accident with left-sided weakness. 5. Underlying chronic obstructive pulmonary disease. 6. Morbid obesity. 7. Peripheral vascular disease. 8. Abnormal CT chest with bibasilar atelectasis. No significant mucus plugging. Tiny pleural effusion seen. 9. Persistent encephalopathy. --ongoing 10. anemia Plan . Updated 10/02/20 Continue current vent support 10/450/40/5 DC sedation, attempt pressure support trial, tracheostomy is medically indicated secondary to inability to protect airway,Intubated 3 times. consider surgery consult Follow CXR/ABG --make changes as needed Continue ABX on cefepime Hemoglobin 6.3 today, hold Coumadin, monitor hemoglobin. Tx per PCP DVT/GI PPX: warfarin --on hold as patient is anemic D/W RN and RT Patient is a DNR CC time 30 minutes CLINTON PALAFOX MD Oct 02, 2020 05:56
[2020-10-02] MEDS: PROPOFOL 100 ML IV PRN (06:36)
[2020-10-02 07:35] LABS: % BANDS 3 % (0-9); % EOS 2 % (0-5); % LYMPHS 34 % (24-48); % MONOS 4 % (0-10); % SEGS 57 % (35-66)
[2020-10-02 07:37] LABS: PLT ESTIMATE ADEQUATE (ADEQUATE)
[2020-10-02 07:38] LABS: POLYCHROMASIA SLIGHT
[2020-10-02 07:39] LABS: ANISOCYTOSIS SLIGHT
--- NOTE | 2020-10-02 08:44 | PDOC ---
PROGRESS NOTES Date of Service DATE: 10/02/20 TIME: 08:43 Assessment Problems Medical Problems: (1) NSTEMI (non-ST elevated myocardial infarction) Status: Acute (2) Obtundation Status: Acute (3) Respiratory arrest Status: Acute Found obtunded at [facility], unresponsive, hypoglycemic, no new stroke on MRI CODE BLUE on 09/26 Last admit had prolonged encephalopathy following the development of cardiogenic shock, STEMI, with negative EEG and CT head Remote history of seizures Last admit I felt there was a component of critical illness neuropathy/myopathy Respiratory failure LAST ADMIT also had: septic shock, leukocytosis, lactic acidosis, acute kidney injury, 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, thrombocytopenia (heparin-induced), hematuria, anemia, hyperbilirubinemia Plan Patient is now DO NOT RESUSCITATE Continue current regimen, agree with pulmonary plans to wean sedation, note possibility of tracheostomy Subjective None Objective Vital Signs Date Time Temp Pulse Resp B/P (MAP) Pulse Ox O2 Delivery O2 Flow Rate FiO2 10/02/20 08:00 78 16 122/74 (90) 100 Ventilator 10/02/20 04:00 98.7 98.7 Intake and Output 10/02/20 07:00 Intake Total 4532 ml Output Total 1565 ml Balance 2967 ml IV Total 1699 ml Tube Feeding 2383 ml Other 450 ml Output Urine Total 1565 ml PHYSICAL EXAM Intubated, on sedation, unresponsive PERRL. EOMI. CN: no focal findings. Muscle tone: normal. Muscle strength: Slight spontaneous movements DTR: 1+ Plantar reflex: Silent Gait: not examined Sensory exam: Not testable Cerebellar: not testable Review of Relevant I have reviewed the following items denise (where applicable) has been applied. Labs Laboratory Tests Test 09/30/20 11:38 09/30/20 18:13 09/30/20 23:26 10/01/20 05:30 Glucose (Fingerstick) 131 mg/dL (70-99) 159 mg/dL (70-99) 141 mg/dL (70-99) White Blood Count 6.9 x10^3/uL (4.0-11.0) Red Blood Count 2.34 x10^6/uL (4.30-5.70) Hemoglobin 7.4 g/dL (13.0-17.5) Hematocrit 22.2 % (39.0-53.0) Mean Corpuscular Volume 95 fL (79-100) Mean Corpuscular Hemoglobin 32 pg (25-35) Mean Corpuscular Hemoglobin Concent 33 g/dL (31-37) Red Cell Distribution Width 18.8 % (11.5-14.5) Platelet Count 250 x10^3/uL (140-400) Neutrophils (%) (Auto) 59 % (31-73) Lymphocytes (%) (Auto) 32 % (24-48) Monocytes (%) (Auto) 5 % (0-9) Eosinophils (%) (Auto) 4 % (0-3) Basophils (%) (Auto) 1 % (0-3) Neutrophils # (Auto) 4.1 x10^3/uL (1.8-7.7) Lymphocytes # (Auto) 2.2 x10^3/uL (1.0-4.8) Monocytes # (Auto) 0.4 x10^3/uL (0.0-1.1) Eosinophils # (Auto) 0.3 x10^3/uL (0.0-0.7) Basophils # (Auto) 0.0 x10^3/uL (0.0-0.2) Prothrombin Time 16.0 SEC (11.7-14.0) Prothromb Time International Ratio 1.3 (0.8-1.1) Sodium Level 140 mmol/L (136-145) Potassium Level 3.6 mmol/L (3.5-5.1) Chloride Level 107 mmol/L (98-107) Carbon Dioxide Level 29 mmol/L (21-32) Anion Gap 4 (6-14) Blood Urea Nitrogen 13 mg/dL (8-26) Creatinine 0.6 mg/dL (0.7-1.3) Estimated GFR (Cockcroft-Gault) 132.4 Glucose Level 150 mg/dL (70-99) Calcium Level 8.0 mg/dL (8.5-10.1) Test 10/01/20 05:51 10/01/20 08:49 10/01/20 13:12 10/01/20 18:11 Glucose (Fingerstick) 143 mg/dL (70-99) 157 mg/dL (70-99) 163 mg/dL (70-99) O2 Saturation 98 % (92-99) Arterial Blood pH 7.45 (7.35-7.45) Arterial Blood pCO2 at Patient Temp 36 mmHg (35-46) Arterial Blood pO2 at Patient Temp 109 mmHg (65-108) Arterial Blood HCO3 25 mmol/L (21-28) Arterial Blood Base Excess 1 mmol/L (-3-3) FiO2 40% Test 10/01/20 23:28 10/02/20 05:00 Glucose (Fingerstick) 134 mg/dL (70-99) 138 mg/dL (70-99) White Blood Count 6.2 x10^3/uL (4.0-11.0) Red Blood Count 2.02 x10^6/uL (4.30-5.70) Hemoglobin 6.3 g/dL (13.0-17.5) Hematocrit 19.3 % (39.0-53.0) Mean Corpuscular Volume 96 fL (79-100) Mean Corpuscular Hemoglobin 31 pg (25-35) Mean Corpuscular Hemoglobin Concent 33 g/dL (31-37) Red Cell Distribution Width 19.0 % (11.5-14.5) Platelet Count 237 x10^3/uL (140-400) Neutrophils (%) (Auto) 55 % (31-73) Lymphocytes (%) (Auto) 34 % (24-48) Monocytes (%) (Auto) 5 % (0-9) Eosinophils (%) (Auto) 5 % (0-3) Basophils (%) (Auto) 1 % (0-3) Neutrophils # (Auto) 3.4 x10^3/uL (1.8-7.7) Lymphocytes # (Auto) 2.1 x10^3/uL (1.0-4.8) Monocytes # (Auto) 0.3 x10^3/uL (0.0-1.1) Eosinophils # (Auto) 0.3 x10^3/uL (0.0-0.7) Basophils # (Auto) 0.0 x10^3/uL (0.0-0.2) Segmented Neutrophils % 57 % (35-66) Band Neutrophils % 3 % (0-9) Lymphocytes % 34 % (24-48) Monocytes % 4 % (0-10) Eosinophils % 2 % (0-5) Platelet Estimate Adequate (ADEQUATE) Polychromasia Slight Basophilic Stippling Present Anisocytosis Slight Prothrombin Time 16.6 SEC (11.7-14.0) Prothromb Time International Ratio 1.4 (0.8-1.1) Sodium Level 142 mmol/L (136-145) Potassium Level 3.3 mmol/L (3.5-5.1) Chloride Level 107 mmol/L (98-107) Carbon Dioxide Level 31 mmol/L (21-32) Anion Gap 4 (6-14) Blood Urea Nitrogen 14 mg/dL (8-26) Creatinine 0.6 mg/dL (0.7-1.3) Estimated GFR (Cockcroft-Gault) 132.4 Glucose Level 145 mg/dL (70-99) Calcium Level 8.1 mg/dL (8.5-10.1) Laboratory Tests Test 10/01/20 08:49 10/01/20 13:12 10/01/20 18:11 10/01/20 23:28 O2 Saturation 98 % (92-99) Arterial Blood pH 7.45 (7.35-7.45) Arterial Blood pCO2 at Patient Temp 36 mmHg (35-46) Arterial Blood pO2 at Patient Temp 109 mmHg (65-108) Arterial Blood HCO3 25 mmol/L (21-28) Arterial Blood Base Excess 1 mmol/L (-3-3) FiO2 40% Glucose (Fingerstick) 157 mg/dL (70-99) 163 mg/dL (70-99) 134 mg/dL (70-99) Test 10/02/20 05:00 White Blood Count 6.2 x10^3/uL (4.0-11.0) Red Blood Count 2.02 x10^6/uL (4.30-5.70) Hemoglobin 6.3 g/dL (13.0-17.5) Hematocrit 19.3 % (39.0-53.0) Mean Corpuscular Volume 96 fL (79-100) Mean Corpuscular Hemoglobin 31 pg (25-35) Mean Corpuscular Hemoglobin Concent 33 g/dL (31-37) Red Cell Distribution Width 19.0 % (11.5-14.5) Platelet Count 237 x10^3/uL (140-400) Neutrophils (%) (Auto) 55 % (31-73) Lymphocytes (%) (Auto) 34 % (24-48) Monocytes (%) (Auto) 5 % (0-9) Eosinophils (%) (Auto) 5 % (0-3) Basophils (%) (Auto) 1 % (0-3) Neutrophils # (Auto) 3.4 x10^3/uL (1.8-7.7) Lymphocytes # (Auto) 2.1 x10^3/uL (1.0-4.8) Monocytes # (Auto) 0.3 x10^3/uL (0.0-1.1) Eosinophils # (Auto) 0.3 x10^3/uL (0.0-0.7) Basophils # (Auto) 0.0 x10^3/uL (0.0-0.2) Segmented Neutrophils % 57 % (35-66) Band Neutrophils % 3 % (0-9) Lymphocytes % 34 % (24-48) Monocytes % 4 % (0-10) Eosinophils % 2 % (0-5) Platelet Estimate Adequate (ADEQUATE) Polychromasia Slight Basophilic Stippling Present Anisocytosis Slight Prothrombin Time 16.6 SEC (11.7-14.0) Prothromb Time International Ratio 1.4 (0.8-1.1) Sodium Level 142 mmol/L (136-145) Potassium Level 3.3 mmol/L (3.5-5.1) Chloride Level 107 mmol/L (98-107) Carbon Dioxide Level 31 mmol/L (21-32) Anion Gap 4 (6-14) Blood Urea Nitrogen 14 mg/dL (8-26) Creatinine 0.6 mg/dL (0.7-1.3) Estimated GFR (Cockcroft-Gault) 132.4 Glucose Level 145 mg/dL (70-99) Glucose (Fingerstick) 138 mg/dL (70-99) Calcium Level 8.1 mg/dL (8.5-10.1) Medications Current Medications Fentanyl Citrate 30 ml @ 0 mls/hr CONT PRN IV SEE PROTOCOL; Start 09/22/20 at 09:45 Propofol 100 ml @ 0 mls/hr CONT PRN IV PER PROTOCOL Last administered on 09/22/20at 10:30; Start 09/22/20 at 09:45; Stop 09/26/20 at 20:12; Status DC Fentanyl Citrate (Fentanyl 2ml Vial) 25 mcg PRN Q1HR PRN IV SEE COMMENTS; Start 09/22/20 at 09:45 Fentanyl Citrate (Fentanyl 2ml Vial) 50 mcg PRN Q1HR PRN IV SEE COMMENTS; Start 09/22/20 at 09:45 Chlorhexidine Gluconate (Peridex) 15 ml BID MM ; Start 09/22/20 at 10:00; Stop 09/22/20 at 19:54; Status DC Midazolam HCl (Versed) 2 mg 1X ONCE IV ; Start 09/22/20 at 10:30; Stop 09/22/20 at 10:31; Status DC Iohexol (Omnipaque 300 Mg/ml) 75 ml 1X ONCE IV Last administered on 09/22/20at 11:06; Start 09/22/20 at 10:45; Stop 09/22/20 at 10:46; Status DC Info (CONTRAST GIVEN -- Rx MONITORING) 1 each PRN DAILY PRN MC SEE COMMENTS; Start 09/22/20 at 10:45; Stop 09/24/20 at 10:44; Status DC Potassium Chloride/Water 100 ml @ 100 mls/hr Q1H IV Last administered on 09/22/20at 20:27; Start 09/22/20 at 15:00; Stop 09/22/20 at 18:59; Status DC Cefepime HCl (Maxipime) 1 gm Q8HRS IVP Last administered on 09/29/20at 05:52; Start 09/22/20 at 14:00; Stop 09/29/20 at 10:32; Status DC Sennosides (Senna) 17.2 mg PRN BID PRN PO CONSTIPATION; Start 09/22/20 at 14:00 Docusate Sodium (Colace) 100 mg PRN DAILY PRN PO HARD STOOLS; Start 09/22/20 at 14:00; Stop 09/22/20 at 14:00; Status DC Ondansetron HCl (Zofran) 4 mg PRN Q6HRS PRN IVP NAUSEA/VOMITING, 1ST CHOICE; Start 09/22/20 at 14:00 Insulin Human Lispro (HumaLOG) 0-7 UNITS Q6HRS SQ Last administered on 10/01/20at 18:13; Start 09/22/20 at 18:00 Dextrose (Dextrose 50%-Water Syringe) 12.5 gm PRN Q15MIN PRN IV SEE COMMENTS Last administered on 09/22/20at 17:47; Start 09/22/20 at 14:00 Dextrose/Sodium Chloride 1,000 ml @ 50 mls/hr Q20H IV Last administered on 10/01/20at 14:30; Start 09/22/20 at 14:00 Acetaminophen (Tylenol) 650 mg PRN Q4HRS PRN PO TEMP OVER 100.4F OR MILD PAIN Last administered on 09/23/20at 00:20; Start 09/22/20 at 14:00; Stop 09/23/20 at 16:24; Status DC Enoxaparin Sodium (Lovenox 40mg Syringe) 40 mg Q24H SQ ; Start 09/22/20 at 14:00; Status UNV Pantoprazole Sodium (PROTONIX VIAL for IV PUSH) 40 mg DAILY IVP Last administered on 10/01/20at 07:52; Start 09/23/20 at 09:00 Prochlorperazine Edisylate (Compazine) 10 mg PRN Q6HRS PRN IV NAUSEA/VOMITING, 2ND CHOICE; Start 09/22/20 at 14:00 Etomidate (Amidate) 20 mg STK-MED ONCE IV ; Start 09/22/20 at 17:46; Stop 09/22/20 at 17:46; Status DC Rocuronium [place] (Zemuron) 50 mg STK-MED ONCE .ROUTE ; Start 09/22/20 at 17:46; Stop 09/22/20 at 17:47; Status DC Norepinephrine Bitartrate 8 mg/ Dextrose 258 ml @ 21.769 mls/ hr CONT PRN IV PER PROTOCOL Last administered on 09/24/20at 13:20; Start 09/22/20 at 18:15 Potassium Chloride/Water 100 ml @ 100 mls/hr Q1H IV Last administered on 09/23/20at 14:30; Start 09/23/20 at 07:00; Stop 09/23/20 at 14:59; Status DC Acetaminophen (Tylenol) 650 mg PRN Q6HRS PRN PEG MILD PAIN / TEMP > 100.3'F Last administered on 09/23/20at 16:34; Start 09/23/20 at 16:30 Warfarin Sodium (Coumadin Per Pharmacy) 1 each PRN DAILY PRN MC SEE COMMENTS Last administered on 10/01/20at 12:32; Start 09/24/20 at 12:30; Stop 10/02/20 at 05:55; Status DC Warfarin Sodium (Coumadin) 5 mg 1X WARF ONCE PO Last administered on 09/24/20at 17:42; Start 09/24/20 at 16:00; Stop 09/24/20 at 16:01; Status DC Warfarin Sodium (Coumadin - No Dose Today) 1 each 1X WARF ONCE MC ; Start 09/25/20 at 16:00; Stop 09/25/20 at 16:01; Status DC Warfarin Sodium (Coumadin) 1 mg 1X WARF ONCE PO Last administered on 09/26/20at 16:00; Start 09/26/20 at 16:00; Stop 09/26/20 at 16:01; Status DC Propofol 100 ml @ 3.174 mls/ hr CONT PRN IV PER PROTOCOL Last administered on 10/02/20at 06:36; Start 09/26/20 at 20:15 Atropine Sulfate (ATROPINE 1mg SYRINGE) 1 mg STK-MED ONCE .ROUTE ; Start 09/25/20 at 10:00; Stop 09/27/20 at 08:20; Status DC Epinephrine HCl (EPINEPHrine SYRINGE) 1 mg STK-MED ONCE .ROUTE ; Start 09/25/20 at 10:00; Stop 09/27/20 at 08:20; Status DC Warfarin Sodium (Coumadin) 2 mg 1X WARF ONCE PO Last administered on 09/27/20at 17:53; Start 09/27/20 at 16:00; Stop 09/27/20 at 16:01; Status DC Aspirin (Aspirin Chewable) 81 mg DAILYWBKFT PO Last administered on 10/01/20at 07:51; Start 09/27/20 at 09:30 Clopidogrel Bisulfate (Plavix) 75 mg DAILYWBKFT PO Last administered on 10/01/20at 07:51; Start 09/27/20 at 09:30 Potassium Chloride/Water 100 ml @ 100 mls/hr Q1H IV Last administered on 09/27/20at 12:45; Start 09/27/20 at 11:30; Stop 09/27/20 at 13:29; Status DC Warfarin Sodium (Coumadin) 3 mg 1X WARF ONCE PO Last administered on 09/28/20at 18:18; Start 09/28/20 at 16:00; Stop 09/28/20 at 16:01; Status DC Cefepime HCl (Maxipime) 2 gm Q8HRS IVP Last administered on 10/02/20at 05:01; Start 09/29/20 at 14:00 Warfarin Sodium (Coumadin) 3 mg 1X WARF ONCE PO Last administered on 09/29/20at 16:55; Start 09/29/20 at 16:00; Stop 09/29/20 at 16:01; Status DC Warfarin Sodium (Coumadin) 3 mg 1X WARF ONCE PO Last administered on 09/30/20at 16:00; Start 09/30/20 at 16:00; Stop 09/30/20 at 16:01; Status DC Warfarin Sodium (Coumadin) 5 mg 1X WARF ONCE PO Last administered on 10/01/20at 16:35; Start 10/01/20 at 16:00; Stop 10/01/20 at 16:01; Status DC Active Scripts Active Amiodarone Hcl 200 Mg Tablet 400 Mg PO DAILY 90 Days [Warfarin Per Pharmacy] 1 EACH Each 1 Each MC PRN DAILY PRN 30 Days Clopidogrel (Clopidogrel Bisulfate) 75 Mg Tablet 75 Mg PO DAILYWBKFT 90 Days Humalog (Insulin Lispro) 100 Unit/1 Ml Insuln.pen 0 Units SQ TIDWMEALS 30 Days Duoneb 0.5-3(2.5) Mg/3 Ml (Albuterol/Ipratropium) 3 Ml Ampul.neb 3 Ml NEB RTQID 30 Days Aspirin 325 Mg Tablet 325 Mg PO DAILYWBKFT 30 Days Metoprolol Tartrate 25 Mg Tablet 25 Mg PO BID 30 Days Montelukast Sodium Tablet (Montelukast Sodium) 10 Mg Tablet 10 Mg PO QHS Gabapentin 600 Mg Tablet 600 Mg PO BID 30 Days Reported Glimepiride 4 Mg Tablet 1 Tab PO DAILY Furosemide 40 Mg Tablet 1 Tab PO BID Symbicort 160-4.5 Mcg Inhaler (Budesonide/Formoterol Fumarate) 10.2 Gm Hfa.aer.ad 1 Puff INH DAILY Losartan-Hctz 100-12.5 Mg Tab (Losartan/Hydrochlorothiazide) 1 Each Tablet 1 Tab PO DAILY Nitrofurantoin [place]-Mcr 100 Mg (Nitrofurantoin Monohyd/M-Cryst) 100 Mg Capsule 1 Cap PO BID Betamethasone Valerate 60 Ml Lotion 1 TP QHS Atorvastatin Calcium 40 Mg Tablet 1 Tab PO DAILY Diltiazem 24Hr Cd (Diltiazem HCl) 240 Mg Cap.er.24h 1 Cap PO DAILY Nystop (Nystatin) 60 Gm Powder 1 Sudheer TP BID Pepcid (Famotidine) 20 Mg Tablet 20 Mg PO BID Vitals/I & O Vital Sign - Last 24 Hours 10/01/20 10/01/20 10/01/20 10/01/20 09:00 10:00 11:00 12:00 Temp 99.1 99.1 Pulse 90 90 88 84 Resp 21 24 24 20 B/P (MAP) 117/69 (85) 125/75 (92) 100/64 (76) 104/64 (77) Pulse Ox 100 100 100 100 O2 Delivery Ventilator Ventilator Ventilator Ventilator 10/01/20 10/01/20 10/01/20 10/01/20 12:00 12:10 13:00 13:50 Pulse 88 Resp 22 B/P (MAP) 121/76 (91) Pulse Ox 100 100 100 O2 Delivery Mechanical Ventilator Ventilator Ventilator Ventilator 10/01/20 10/01/20 10/01/20 10/01/20 14:00 15:00 16:00 16:00 Temp 99.0 99.0 Pulse 89 88 92 Resp 13 16 17 B/P (MAP) 127/71 (89) 95/50 (65) 110/59 (76) Pulse Ox 100 99 100 O2 Delivery Ventilator Ventilator Mechanical Ventilator Ventilator 10/01/20 10/01/20 10/01/20 10/01/20 16:05 17:00 18:00 18:00 Pulse 88 88 Resp 16 12 B/P (MAP) 107/63 (78) 90/59 (69) Pulse Ox 99 99 99 99 O2 Delivery Ventilator Ventilator Ventilator Ventilator 10/01/20 10/01/20 10/01/20 10/01/20 19:00 20:00 20:00 20:07 Temp 99.1 99.1 Pulse 86 84 Resp 15 15 B/P (MAP) 90/58 (69) 116/72 (87) Pulse Ox 99 100 100 O2 Delivery Ventilator Mechanical Ventilator Ventilator Ventilator 10/01/20 10/01/20 10/01/20 10/01/20 21:00 22:00 23:00 23:15 Pulse 80 82 84 Resp 17 15 16 B/P (MAP) 91/60 (70) 89/56 (67) 86/52 (63) Pulse Ox 100 100 100 100 O2 Delivery Ventilator Ventilator Ventilator Ventilator 10/02/20 10/02/20 10/02/20 10/02/20 00:00 00:00 01:00 02:00 Temp 98.8 98.8 Pulse 83 85 92 Resp 15 17 18 B/P (MAP) 133/72 (92) 133/72 (92) 137/79 (98) Pulse Ox 100 100 100 O2 Delivery Ventilator Mechanical Ventilator Ventilator Ventilator 10/02/20 10/02/20 10/02/20 10/02/20 03:00 03:50 04:00 04:00 Temp 98.7 98.7 Pulse 80 77 Resp 17 14 B/P (MAP) 126/69 (88) 114/67 (83) Pulse Ox 100 100 100 O2 Delivery Ventilator Ventilator Mechanical Ventilator Ventilator 10/02/20 10/02/20 10/02/20 10/02/20 05:00 06:00 07:00 07:55 Pulse 77 75 76 Resp 16 16 17 B/P (MAP) 119/72 (88) 109/67 (81) 97/57 (70) Pulse Ox 100 100 99 100 O2 Delivery Ventilator Ventilator Ventilator Ventilator 10/02/20 08:00 Pulse 78 Resp 16 B/P (MAP) 122/74 (90) Pulse Ox 100 O2 Delivery Ventilator Intake and Output 10/01/20 10/01/20 10/02/20 15:00 23:00 07:00 Intake Total 1400 ml 1283 ml 1849 ml Output Total 445 ml 735 ml 385 ml Balance 955 ml 548 ml 1464 ml Justicifation of Admission Dx: Justifications for Admission: Justification of Admission Dx: Yes CHF: Cardiac Arrhythmias RAFAEL REINOSO MD Oct 02, 2020 08:44
[2020-10-02] MEDS: ASPIRIN CHEWABLE 81 MG TABLET. PO SCH (08:59)
[2020-10-02] MEDS: CLOPIDOGREL BISULFATE 75 MG TABLET PO SCH (08:59)
[2020-10-02] MEDS: PANTOPRAZOLE IV PUSH 40 MG VIAL. IVP SCH (09:00)
[2020-10-02] MEDS: IV DEXTROSE 5 %-0.45 % NACL 1,000 ML IV SCH (11:42)
[2020-10-02] MEDS: MINERAL OIL/PETROLATUM,WHITE OPHTH OINT 3.5GM TUBE. OU PRN (12:52)
--- NOTE | 2020-10-02 13:20 | PDOC ---
[employer] PROGRESS NOTE Date of Service DOS: DATE: 10/02/20 TIME: 13:14 Chief Complaint Chief Complaint Acute anemia, likely due to acute blood loss due to multiple lab draws and multiple comorbidities. Acute metabolic, infectious encephalopathy Acute respiratory failure Healthcare associated pneumonia, possible aspiration, possible gram-negative organisms, possibly gram-positive organism Acute hypoglycemia Hypokalemia Elevated troponins concerning for type II demand ischemia Severe protein malnutrition Morbid obesity AAA, 4 cm History of diabetes mellitus type 2 History of dyslipidemia history of hypertension History of recent STEMI History of CAD with recent stent placement Pending 2 unit PRBC transfusion. Hypoglycemia protocol Continue empiric IV antibiotics with concern for aspiration pneumonia Pulmonology consult for vent management IV electrolyte replacement as needed Consider cardiology consult if troponins increase Lovenox for DVT prophylaxis Protonix while on the vent GI prophylaxis N.p.o. Full code Discussed with RN and SW Disposition inpatient management as above Surrogate decision maker is undesignated History of Present Illness History of Present Illness Patient is a 70-year-old male with a recent prolonged hospitalization for STEMI and respiratory failure for which she was treated with arterial thrombolysis for a right leg popliteal artery aneurysm and also had left heart cath with placement of a stent in the LAD and RCA comes in today after he was found obtunded at his alf facility. Apparently according to the nursing facility patient was in his usual state of health and he was conversational but then became altered. His blood glucose was found to be in the 30s. Glucose tabs and glucagon was given in route and his GCS reported at 6. Upon arrival patient's mental status did not improve and he was eventually intubated for airway protection. Of note EMS was bagging the patient through the nasal access. In the ED, patient was placed on a vent and pulmonology was consulted. Patient was also taken to the CT scanner for sanders scanning. Patient was started to wake up on the vent and sedation was ordered. 09/23/20 Patient examined at bedside. Intubated. Not on any sedation but unresponsive. Neurology consult in place. 09/24/20 Patient seen and examined at bedside. Remains intubated he is off sedation but still remains unresponsive. Planning for MRI brain in the morning. Further plan to be determined by MRI. 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 Plan of care discussed with bedside RN 09/25/20: Afebrile, currently breathing on ventilator with FiO2 50%, PEEP 5. Had CODE BLUE in ICU this morning; received 2 rounds of CPR, epinephrine, and atropine with ROSC. I believe MRI will be obtained today, per neurology. I had discussion with Dr. Rubalcava about his very poor prognosis due to multifactorial comorbidities. In our opinion continuing with present aggressive care would be futile. I would recommend that he should be made DNR, and after discussion with Dr. Rubalcava he agrees. Since there is no family and no one to discuss goals of care, we agreed to make patient DNR. Critical care time 30 minutes spent reviewing charts, reviewing labs, imaging, discussion with RN. 09/26/2020: Afebrile. Still on vent, with FiO2 45%, PEEP 5. After discussion with Dr. Rubalcava yesterday, patient was made DNR. In the ED is likely a poor candidate for weaning trials may need trach in near future if no significant improvement. MRI with no acute findings. Continue with pressure support and IV antibiotics. Critical care time 30 minutes reviewing charts, labs, examination, discussion with RN. 09/27/2020: Afebrile. On vent with FiO2 40%, PEEP 5. Potassium 2.8 today, will replace. Warfarin has been resumed. Discussed with pharmacy, will resume aspi rin and Plavix. May need tracheostomy by the end of the week if no improvement in mental status. Chest x-ray today showed improving interstitial prominence, persistent left basilar opacities. Continue IV cefepime and supportive care. Critical care time 30 minutes reviewing charts, labs, examination, discussion with RN. 09/28/2020: Afebrile. On ventilator with FiO2 40%, PEEP 5. Warfarin has been resumed; INR 1.3 today. Some morning labs still pending; hemoglobin yesterday 7.3, will continue to monitor. May need tracheostomy at some point if no improvement in mental status. Continue IV cefepime and supportive care. Critical care time 30 minutes reviewing charts, labs, examination, discussion with RN. 09/29/2020: Afebrile. Breathing on vent with FiO2 40%, PEEP 5. INR 1.2 today; pharmacy to help with warfarin dosing. White count within normal range, renal function stable. Spoke with pharmacy about cefepime 1 g every 8 hours dosing; this has been changed to cefepime 2 g every 8 hours. Possible tracheostomy at some point. Critical care time 30 minutes reviewing charts, labs, examination, discussion with RN. 09/30/20: Afebrile. Currently breathing on vent with FiO2 40%, PEEP 5. Continue antibiotics, cefepime 2 g every 8 hours. INR 1.4; continue warfarin dosing per pharmacy. Possible tracheostomy at some point. Critical care time 30 minutes reviewing charts, labs, examination, discussion with RN. 10/01/2020: Febrile overnight with T-max 100.3 F. On ventilator with FiO2 40%, PEEP 5. Continue antibiotics, cefepime 2 g every 8 hours. INR 1.4, still subtherapeutic; continue warfarin dosing per pharmacy. Possible tracheostomy at some point. Critical care time 30 minutes reviewing charts, labs, examination, discussion with RN. 10/02/2020 No acute events overnight. Patient saturating 99% on vent settings of 10/450/40/5. Patient will likely need a trach and PEG at some point. We will hold warfarin and start 2 units PRBC transfusion. Patient's chart, labs, images were reviewed and discussed with RN A total of 32 minutes of critical care time was spent in reviewing chart, labs, and images. Discussed with RN and SW. Vitals/I&O Vitals/I&O: Vital Signs Date Time Temp Pulse Resp B/P (MAP) Pulse Ox O2 Delivery O2 Flow Rate FiO2 10/02/20 12:00 98.8 87 15 116/69 (85) 99 Ventilator 98.8 I & O 10/01/20 10/01/20 10/02/20 15:00 23:00 07:00 Intake Total 1400 ml 1283 ml 1849 ml Output Total 445 ml 735 ml 385 ml Balance 955 ml 548 ml 1464 ml Physical Exam General: Other (Intubated, nonresponsive) Heart: Regular rate, Normal S1, Normal S2 Lungs: Other (Intubated) Abdomen: Normal bowel sounds, Soft Extremities: No clubbing, No edema, Normal pulses Skin: No rashes, No significant lesion Labs Labs: Laboratory Tests Test 10/01/20 18:11 10/01/20 23:28 10/02/20 05:00 10/02/20 13:06 Glucose (Fingerstick) 163 mg/dL (70-99) 134 mg/dL (70-99) 138 mg/dL (70-99) 171 mg/dL (70-99) White Blood Count 6.2 x10^3/uL (4.0-11.0) Red Blood Count 2.02 x10^6/uL (4.30-5.70) Hemoglobin 6.3 g/dL (13.0-17.5) Hematocrit 19.3 % (39.0-53.0) Mean Corpuscular Volume 96 fL (79-100) Mean Corpuscular Hemoglobin 31 pg (25-35) Mean Corpuscular Hemoglobin Concent 33 g/dL (31-37) Red Cell Distribution Width 19.0 % (11.5-14.5) Platelet Count 237 x10^3/uL (140-400) Neutrophils (%) (Auto) 55 % (31-73) Lymphocytes (%) (Auto) 34 % (24-48) Monocytes (%) (Auto) 5 % (0-9) Eosinophils (%) (Auto) 5 % (0-3) Basophils (%) (Auto) 1 % (0-3) Neutrophils # (Auto) 3.4 x10^3/uL (1.8-7.7) Lymphocytes # (Auto) 2.1 x10^3/uL (1.0-4.8) Monocytes # (Auto) 0.3 x10^3/uL (0.0-1.1) Eosinophils # (Auto) 0.3 x10^3/uL (0.0-0.7) Basophils # (Auto) 0.0 x10^3/uL (0.0-0.2) Segmented Neutrophils % 57 % (35-66) Band Neutrophils % 3 % (0-9) Lymphocytes % 34 % (24-48) Monocytes % 4 % (0-10) Eosinophils % 2 % (0-5) Platelet Estimate Adequate (ADEQUATE) Polychromasia Slight Basophilic Stippling Present Anisocytosis Slight Prothrombin Time 16.6 SEC (11.7-14.0) Prothromb Time International Ratio 1.4 (0.8-1.1) Sodium Level 142 mmol/L (136-145) Potassium Level 3.3 mmol/L (3.5-5.1) Chloride Level 107 mmol/L (98-107) Carbon Dioxide Level 31 mmol/L (21-32) Anion Gap 4 (6-14) Blood Urea Nitrogen 14 mg/dL (8-26) Creatinine 0.6 mg/dL (0.7-1.3) Estimated GFR (Cockcroft-Gault) 132.4 Glucose Level 145 mg/dL (70-99) Calcium Level 8.1 mg/dL (8.5-10.1) Assessment and Plan Assessmemt and Plan Problems Medical Problems: (1) NSTEMI (non-ST elevated myocardial infarction) Status: Acute (2) Obtundation Status: Acute (3) Respiratory arrest Status: Acute Comment Review of Relevant I have reviewed the following items denise (where applicable) has been applied. Medications: Current Medications Medications (Trade) Dose Ordered Sig/Dru Route PRN Reason Start Time Stop Time Status Last Admin Dose Admin Warfarin Sodium (Coumadin) 5 mg 1X WARF ONCE PO 10/01/20 16:00 10/01/20 16:01 DC 10/01/20 16:35 Justifications for Admission Other Justification Hypoglycemia and altered mental status. FUAD CUTLER MD Oct 02, 2020 13:20
--- NOTE | 2020-10-02 16:26 | NUR ---
SS following up with discharge planning. SS reviewed pt chart and discussed with pt RN. Pt is currently on the vent at 40%. COVID19 negative. DNR. Pt on IV Cefepime. Per RN, will continue to monitor and assess for trach and peg. Dr. Henning consult tomorrow. SS will continue to follow for discharge planning.
[2020-10-03] VITALS (24 sets, daily range): BP systolic 100–164; BP diastolic 58–95
[2020-10-03] MEDS: CEFEPIME HCL IV Push 2 GM VIAL. IVP SCH ×3 (05:50→21:16)
[2020-10-03] MEDS: INSULIN LISPRO 300 UNITS/3 ML VIAL. SQ SCH ×3 (05:52→18:00)
[2020-10-03 06:00] LABS: CREATININE 0.6 mg/dL (0.7-1.3); GFR 132.4; POTASSIUM 3.7 mmol/L (3.5-5.1)
[2020-10-03 06:37] LABS: BASO % 1 % (0-3); EOS # 0.3 x10^3/uL (0.0-0.7); EOS % 4 % (0-3); HEMATOCRIT 26.5 % (39.0-53.0); HEMOGLOBIN 8.9 g/dL (13.0-17.5); LYMPH # 2.2 x10^3/uL (1.0-4.8); LYMPH % 35 % (24-48); MEAN CORPUSCULAR HEMOGLOBIN 32 pg (25-35); MEAN CORPUSCULAR HGB CONC 34 g/dL (31-37); MEAN CORPUSCULAR VOLUME 95 fL (79-100); MONO # 0.4 x10^3/uL (0.0-1.1); MONO % 6 % (0-9); NEUT # 3.3 x10^3/uL (1.8-7.7); NEUT % 54 % (31-73); PLATELET COUNT 218 x10^3/uL (140-400); RED BLOOD COUNT 2.79 x10^6/uL (4.30-5.70); WHITE BLOOD COUNT 6.1 x10^3/uL (4.0-11.0)
[2020-10-03 06:59] LABS: PROTHROMBIN TIME PATIENT 15.8 SEC (11.7-14.0)
[2020-10-03] MEDS: ASPIRIN CHEWABLE 81 MG TABLET. PO SCH (08:57)
[2020-10-03] MEDS: CLOPIDOGREL BISULFATE 75 MG TABLET PO SCH (08:57)
[2020-10-03] MEDS: PANTOPRAZOLE IV PUSH 40 MG VIAL. IVP SCH (08:58)
[2020-10-03] MEDS: IV DEXTROSE 5 %-0.45 % NACL 1,000 ML IV SCH (10:30)
[2020-10-03 10:53] LABS: FECAL OB PT NEGATIVE (NEG)
--- NOTE | 2020-10-03 11:21 | PDOC ---
PULMONARY PROGRESS NOTES DATE: 10/03/20 TIME: 11:19 Subjective on vent support 40%/5 Sedated Vitals Vital Signs Date Time Temp Pulse Resp B/P (MAP) Pulse Ox O2 Delivery O2 Flow Rate FiO2 10/03/20 11:00 91 16 142/78 (99) 99 Ventilator 10/03/20 08:00 98.6 98.6 Comments ros unable to obtain sedated on vent HEENT: Other (nc at perrl nose clear orally intubated neck no lad no thyromegaly) Lungs: Other (Intubated) Cardiovascular: S1, S2 Abdomen: Soft, Non-tender, Other (Obese) Extremities: Other (1+ edema) Skin: Warm Labs Laboratory Tests Test 10/01/20 13:12 10/01/20 18:11 10/01/20 23:28 10/02/20 05:00 Glucose (Fingerstick) 157 mg/dL (70-99) 163 mg/dL (70-99) 134 mg/dL (70-99) 138 mg/dL (70-99) White Blood Count 6.2 x10^3/uL (4.0-11.0) Red Blood Count 2.02 x10^6/uL (4.30-5.70) Hemoglobin 6.3 g/dL (13.0-17.5) Hematocrit 19.3 % (39.0-53.0) Mean Corpuscular Volume 96 fL (79-100) Mean Corpuscular Hemoglobin 31 pg (25-35) Mean Corpuscular Hemoglobin Concent 33 g/dL (31-37) Red Cell Distribution Width 19.0 % (11.5-14.5) Platelet Count 237 x10^3/uL (140-400) Neutrophils (%) (Auto) 55 % (31-73) Lymphocytes (%) (Auto) 34 % (24-48) Monocytes (%) (Auto) 5 % (0-9) Eosinophils (%) (Auto) 5 % (0-3) Basophils (%) (Auto) 1 % (0-3) Neutrophils # (Auto) 3.4 x10^3/uL (1.8-7.7) Lymphocytes # (Auto) 2.1 x10^3/uL (1.0-4.8) Monocytes # (Auto) 0.3 x10^3/uL (0.0-1.1) Eosinophils # (Auto) 0.3 x10^3/uL (0.0-0.7) Basophils # (Auto) 0.0 x10^3/uL (0.0-0.2) Segmented Neutrophils % 57 % (35-66) Band Neutrophils % 3 % (0-9) Lymphocytes % 34 % (24-48) Monocytes % 4 % (0-10) Eosinophils % 2 % (0-5) Platelet Estimate Adequate (ADEQUATE) Polychromasia Slight Basophilic Stippling Present Anisocytosis Slight Prothrombin Time 16.6 SEC (11.7-14.0) Prothromb Time International Ratio 1.4 (0.8-1.1) Sodium Level 142 mmol/L (136-145) Potassium Level 3.3 mmol/L (3.5-5.1) Chloride Level 107 mmol/L (98-107) Carbon Dioxide Level 31 mmol/L (21-32) Anion Gap 4 (6-14) Blood Urea Nitrogen 14 mg/dL (8-26) Creatinine 0.6 mg/dL (0.7-1.3) Estimated GFR (Cockcroft-Gault) 132.4 Glucose Level 145 mg/dL (70-99) Calcium Level 8.1 mg/dL (8.5-10.1) Test 10/02/20 13:06 10/02/20 18:42 10/02/20 23:55 10/03/20 05:00 Glucose (Fingerstick) 171 mg/dL (70-99) 142 mg/dL (70-99) 150 mg/dL (70-99) White Blood Count 6.1 x10^3/uL (4.0-11.0) Red Blood Count 2.79 x10^6/uL (4.30-5.70) Hemoglobin 8.9 g/dL (13.0-17.5) Hematocrit 26.5 % (39.0-53.0) Mean Corpuscular Volume 95 fL (79-100) Mean Corpuscular Hemoglobin 32 pg (25-35) Mean Corpuscular Hemoglobin Concent 34 g/dL (31-37) Red Cell Distribution Width 17.0 % (11.5-14.5) Platelet Count 218 x10^3/uL (140-400) Neutrophils (%) (Auto) 54 % (31-73) Lymphocytes (%) (Auto) 35 % (24-48) Monocytes (%) (Auto) 6 % (0-9) Eosinophils (%) (Auto) 4 % (0-3) Basophils (%) (Auto) 1 % (0-3) Neutrophils # (Auto) 3.3 x10^3/uL (1.8-7.7) Lymphocytes # (Auto) 2.2 x10^3/uL (1.0-4.8) Monocytes # (Auto) 0.4 x10^3/uL (0.0-1.1) Eosinophils # (Auto) 0.3 x10^3/uL (0.0-0.7) Basophils # (Auto) 0.0 x10^3/uL (0.0-0.2) Prothrombin Time 15.8 SEC (11.7-14.0) Prothromb Time International Ratio 1.3 (0.8-1.1) Sodium Level 138 mmol/L (136-145) Potassium Level 3.7 mmol/L (3.5-5.1) Chloride Level 105 mmol/L (98-107) Carbon Dioxide Level 30 mmol/L (21-32) Anion Gap 3 (6-14) Blood Urea Nitrogen 14 mg/dL (8-26) Creatinine 0.6 mg/dL (0.7-1.3) Estimated GFR (Cockcroft-Gault) 132.4 Glucose Level 138 mg/dL (70-99) Calcium Level 8.0 mg/dL (8.5-10.1) Test 10/03/20 05:52 10/03/20 10:15 Glucose (Fingerstick) 139 mg/dL (70-99) Stool Occult Blood Negative (NEG) Laboratory Tests Test 10/02/20 13:06 10/02/20 18:42 10/02/20 23:55 10/03/20 05:00 Glucose (Fingerstick) 171 mg/dL (70-99) 142 mg/dL (70-99) 150 mg/dL (70-99) White Blood Count 6.1 x10^3/uL (4.0-11.0) Red Blood Count 2.79 x10^6/uL (4.30-5.70) Hemoglobin 8.9 g/dL (13.0-17.5) Hematocrit 26.5 % (39.0-53.0) Mean Corpuscular Volume 95 fL (79-100) Mean Corpuscular Hemoglobin 32 pg (25-35) Mean Corpuscular Hemoglobin Concent 34 g/dL (31-37) Red Cell Distribution Width 17.0 % (11.5-14.5) Platelet Count 218 x10^3/uL (140-400) Neutrophils (%) (Auto) 54 % (31-73) Lymphocytes (%) (Auto) 35 % (24-48) Monocytes (%) (Auto) 6 % (0-9) Eosinophils (%) (Auto) 4 % (0-3) Basophils (%) (Auto) 1 % (0-3) Neutrophils # (Auto) 3.3 x10^3/uL (1.8-7.7) Lymphocytes # (Auto) 2.2 x10^3/uL (1.0-4.8) Monocytes # (Auto) 0.4 x10^3/uL (0.0-1.1) Eosinophils # (Auto) 0.3 x10^3/uL (0.0-0.7) Basophils # (Auto) 0.0 x10^3/uL (0.0-0.2) Prothrombin Time 15.8 SEC (11.7-14.0) Prothromb Time International Ratio 1.3 (0.8-1.1) Sodium Level 138 mmol/L (136-145) Potassium Level 3.7 mmol/L (3.5-5.1) Chloride Level 105 mmol/L (98-107) Carbon Dioxide Level 30 mmol/L (21-32) Anion Gap 3 (6-14) Blood Urea Nitrogen 14 mg/dL (8-26) Creatinine 0.6 mg/dL (0.7-1.3) Estimated GFR (Cockcroft-Gault) 132.4 Glucose Level 138 mg/dL (70-99) Calcium Level 8.0 mg/dL (8.5-10.1) Test 10/03/20 05:52 10/03/20 10:15 Glucose (Fingerstick) 139 mg/dL (70-99) Stool Occult Blood Negative (NEG) Medications Active Scripts Medications Dose Route/Sig Max Daily Dose Days Date Category Amiodarone Hcl 200 Mg Tablet 400 Mg PO DAILY 09/18/20 Rx [Warfarin Per Pharmacy] 1 EACH Each 1 Each MC PRN DAILY PRN 30 09/18/20 Rx Clopidogrel (Clopidogrel Bisulfate) 75 Mg Tablet 75 Mg PO DAILYWBKFT 09/18/20 Rx Glimepiride 4 Mg Tablet 1 Tab PO DAILY 09/13/20 Reported Furosemide 40 Mg Tablet 1 Tab PO BID 09/13/20 Reported Symbicort 160-4.5 Mcg Inhaler (Budesonide/Formoterol Fumarate) 10.2 Gm Hfa.aer.ad 1 Puff INH DAILY 09/13/20 Reported Losartan-Hctz 100-12.5 Mg Tab (Losartan/Hydrochlorothiazide) 1 Each Tablet 1 Tab PO DAILY 09/13/20 Reported Nitrofurantoin Wright-Mcr 100 Mg (Nitrofurantoin Monohyd/M-Cryst) 100 Mg Capsule 1 Cap PO BID 09/13/20 Reported Betamethasone Valerate 60 Ml Lotion 1 TP QHS 09/13/20 Reported Atorvastatin Calcium 40 Mg Tablet 1 Tab PO DAILY 09/13/20 Reported Diltiazem 24Hr Cd (Diltiazem HCl) 240 Mg Cap.er.24h 1 Cap PO DAILY 09/13/20 Reported Nystop (Nystatin) 60 Gm Powder 1 Sudheer TP BID 09/13/20 Reported Humalog (Insulin Lispro) 100 Unit/1 Ml Insuln.pen 0 Units SQ TIDWMEALS 30 08/06/18 Rx Duoneb 0.5-3(2.5) Mg/3 Ml (Albuterol/Ipratropium) 3 Ml Ampul.neb 3 Ml NEB RTQID 30 08/06/18 Rx Aspirin 325 Mg Tablet 325 Mg PO DAILYWBKFT 30 07/22/17 Rx Metoprolol Tartrate 25 Mg Tablet 25 Mg PO BID 30 07/22/17 Rx Montelukast Sodium Tablet (Montelukast Sodium) 10 Mg Tablet 10 Mg PO QHS 07/22/17 Rx Gabapentin 600 Mg Tablet 600 Mg PO BID 30 07/22/17 Rx Pepcid (Famotidine) 20 Mg Tablet 20 Mg PO BID 05/17/13 Reported Comments cxr reviewed 1.Improving interstitial prominence, persistent left basilar opacities. ett ok Impression . 1. Acute on chronic respiratory failure secondary to multifactorial etiologies including hypoglycemic encephalopathy. No evidence of new stroke. 2. Possible sepsis--- on antibiotics 3. Hypoglycemia./ encephalopathy 4. The patient with prior history of cerebrovascular accident with left-sided weakness. 5. Underlying chronic obstructive pulmonary disease. 6. Morbid obesity. 7. Peripheral vascular disease. 8. Abnormal CT chest with bibasilar atelectasis. No significant mucus plugging. Tiny pleural effusion seen. 9. Persistent encephalopathy. --ongoing 10. anemia Plan . Updated 10/03/20 Continue current vent support 10450/40/5 DC sedation, attempt pressure support trial, tracheostomy is medically indicated secondary to inability to protect airway,Intubated 3 times. surgery consult for tracheostomy Follow CXR/ABG --make changes as needed Continue ABX on cefepime Hemoglobin 6.3 today, hold Coumadin, monitor hemoglobin. Tx per PCP DVT/GI PPX: warfarin --on hold as patient is anemic D/W RN and RT Patient is a DNR Discussed with Dr. Fierro Updated 10/02/20 Continue current vent support 10450/40/5 DC sedation, attempt pressure support trial, tracheostomy is medically indicated secondary to inability to protect airway,Intubated 3 times. consider surgery consult Follow CXR/ABG --make changes as needed Continue ABX on cefepime Hemoglobin 6.3 today, hold Coumadin, monitor hemoglobin. Tx per PCP DVT/GI PPX: warfarin --on hold as patient is anemic D/W RN and RT Patient is a DNR CC time 30 minutes CLINTON PALAFOX MD Oct 03, 2020 11:21
--- NOTE | 2020-10-03 12:18 | PDOC ---
[employer] PROGRESS NOTE Date of Service DOS: DATE: 10/03/20 TIME: 12:16 Chief Complaint Chief Complaint Acute anemia, likely due to acute blood loss due to multiple lab draws and multiple comorbidities. Acute metabolic, infectious encephalopathy Acute respiratory failure Healthcare associated pneumonia, possible aspiration, possible gram-negative organisms, possibly gram-positive organism Acute hypoglycemia Hypokalemia Elevated troponins concerning for type II demand ischemia Severe protein malnutrition Morbid obesity AAA, 4 cm History of diabetes mellitus type 2 History of dyslipidemia history of hypertension History of recent STEMI History of CAD with recent stent placement Pending 2 unit PRBC transfusion. Hypoglycemia protocol Continue empiric IV antibiotics with concern for aspiration pneumonia Pulmonology consult for vent management IV electrolyte replacement as needed Consider cardiology consult if troponins increase Lovenox for DVT prophylaxis Protonix while on the vent GI prophylaxis N.p.o. Full code Discussed with RN and SW Disposition inpatient management as above Surrogate decision maker is undesignated History of Present Illness History of Present Illness Patient is a 70-year-old male with a recent prolonged hospitalization for STEMI and respiratory failure for which she was treated with arterial thrombolysis for a right leg popliteal artery aneurysm and also had left heart cath with placement of a stent in the LAD and RCA comes in today after he was found obtunded at his snf facility. Apparently according to the nursing facility patient was in his usual state of health and he was conversational but then became altered. His blood glucose was found to be in the 30s. Glucose tabs and glucagon was given in route and his GCS reported at 6. Upon arrival patient's mental status did not improve and he was eventually intubated for airway protection. Of note EMS was bagging the patient through the nasal access. In the ED, patient was placed on a vent and pulmonology was consulted. Patient was also taken to the CT scanner for sanders scanning. Patient was started to wake up on the vent and sedation was ordered. 09/23/20 Patient examined at bedside. Intubated. Not on any sedation but unresponsive. Neurology consult in place. 09/24/20 Patient seen and examined at bedside. Remains intubated he is off sedation but still remains unresponsive. Planning for MRI brain in the morning. Further plan to be determined by MRI. 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 Plan of care discussed with bedside RN 09/25/20: Afebrile, currently breathing on ventilator with FiO2 50%, PEEP 5. Had CODE BLUE in ICU this morning; received 2 rounds of CPR, epinephrine, and atropine with ROSC. I believe MRI will be obtained today, per neurology. I had discussion with Dr. Rubalcava about his very poor prognosis due to multifactorial comorbidities. In our opinion continuing with present aggressive care would be futile. I would recommend that he should be made DNR, and after discussion with Dr. Rubalcava he agrees. Since there is no family and no one to discuss goals of care, we agreed to make patient DNR. Critical care time 30 minutes spent reviewing charts, reviewing labs, imaging, discussion with RN. 09/26/2020: Afebrile. Still on vent, with FiO2 45%, PEEP 5. After discussion with Dr. Rubalcava yesterday, patient was made DNR. In the ED is likely a poor candidate for weaning trials may need trach in near future if no significant improvement. MRI with no acute findings. Continue with pressure support and IV antibiotics. Critical care time 30 minutes reviewing charts, labs, examination, discussion with RN. 09/27/2020: Afebrile. On vent with FiO2 40%, PEEP 5. Potassium 2.8 today, will replace. Warfarin has been resumed. Discussed with pharmacy, will resume aspi rin and Plavix. May need tracheostomy by the end of the week if no improvement in mental status. Chest x-ray today showed improving interstitial prominence, persistent left basilar opacities. Continue IV cefepime and supportive care. Critical care time 30 minutes reviewing charts, labs, examination, discussion with RN. 09/28/2020: Afebrile. On ventilator with FiO2 40%, PEEP 5. Warfarin has been resumed; INR 1.3 today. Some morning labs still pending; hemoglobin yesterday 7.3, will continue to monitor. May need tracheostomy at some point if no improvement in mental status. Continue IV cefepime and supportive care. Critical care time 30 minutes reviewing charts, labs, examination, discussion with RN. 09/29/2020: Afebrile. Breathing on vent with FiO2 40%, PEEP 5. INR 1.2 today; pharmacy to help with warfarin dosing. White count within normal range, renal function stable. Spoke with pharmacy about cefepime 1 g every 8 hours dosing; this has been changed to cefepime 2 g every 8 hours. Possible tracheostomy at some point. Critical care time 30 minutes reviewing charts, labs, examination, discussion with RN. 09/30/20: Afebrile. Currently breathing on vent with FiO2 40%, PEEP 5. Continue antibiotics, cefepime 2 g every 8 hours. INR 1.4; continue warfarin dosing per pharmacy. Possible tracheostomy at some point. Critical care time 30 minutes reviewing charts, labs, examination, discussion with RN. 10/01/2020: Febrile overnight with T-max 100.3 F. On ventilator with FiO2 40%, PEEP 5. Continue antibiotics, cefepime 2 g every 8 hours. INR 1.4, still subtherapeutic; continue warfarin dosing per pharmacy. Possible tracheostomy at some point. Critical care time 30 minutes reviewing charts, labs, examination, discussion with RN. 10/02/2020 No acute events overnight. Patient saturating 99% on vent settings of 10/450/40/5. Patient will likely need a trach and PEG at some point. We will hold warfarin and start 2 units PRBC transfusion. Patient's chart, labs, images were reviewed and discussed with RN A total of 32 minutes of critical care time was spent in reviewing chart, labs, and images. Discussed with RN and SW. 10/03/2020 No acute events overnight. Patient saturating 100% on minimal vent settings. No sedation at this point and patient is opening his eyes spontaneously. Not much response or spontaneous movements. Surgery has been consulted for tracheostomy. Patient will also likely need a PEG tube. Prognosis is very poor. Patient has a legal guardian and is signed by 2 physicians for authorization for that. We are currently making decisions for him and at least we had made him DNR. FOBT negative for bloody stools. Continue to trend hemoglobin and once stable will restart anticoagulation likely with heparin drip. Patient's chart, labs, images were reviewed and discussed with RN A total of 40 minutes of critical care time was spent in reviewing chart, labs, and images. Discussed with RN and SW. Vitals/I&O Vitals/I&O: Vital Signs Date Time Temp Pulse Resp B/P (MAP) Pulse Ox O2 Delivery O2 Flow Rate FiO2 10/03/20 11:37 100 Ventilator 10/03/20 11:00 91 16 142/78 (99) 10/03/20 08:00 98.6 98.6 I & O 10/02/20 10/02/20 10/03/20 15:00 23:00 07:00 Intake Total 382 ml 2263 ml 2657 ml Output Total 365 ml 305 ml 335 ml Balance 17 ml 1958 ml 2322 ml Physical Exam General: Other (Intubated, nonresponsive) Heart: Regular rate, Normal S1, Normal S2 Lungs: Other (Intubated) Abdomen: Normal bowel sounds, Soft Extremities: No clubbing, No edema, Normal pulses Skin: No rashes, No significant lesion Labs Labs: Laboratory Tests Test 10/02/20 13:06 10/02/20 18:42 10/02/20 23:55 10/03/20 05:00 Glucose (Fingerstick) 171 mg/dL (70-99) 142 mg/dL (70-99) 150 mg/dL (70-99) White Blood Count 6.1 x10^3/uL (4.0-11.0) Red Blood Count 2.79 x10^6/uL (4.30-5.70) Hemoglobin 8.9 g/dL (13.0-17.5) Hematocrit 26.5 % (39.0-53.0) Mean Corpuscular Volume 95 fL (79-100) Mean Corpuscular Hemoglobin 32 pg (25-35) Mean Corpuscular Hemoglobin Concent 34 g/dL (31-37) Red Cell Distribution Width 17.0 % (11.5-14.5) Platelet Count 218 x10^3/uL (140-400) Neutrophils (%) (Auto) 54 % (31-73) Lymphocytes (%) (Auto) 35 % (24-48) Monocytes (%) (Auto) 6 % (0-9) Eosinophils (%) (Auto) 4 % (0-3) Basophils (%) (Auto) 1 % (0-3) Neutrophils # (Auto) 3.3 x10^3/uL (1.8-7.7) Lymphocytes # (Auto) 2.2 x10^3/uL (1.0-4.8) Monocytes # (Auto) 0.4 x10^3/uL (0.0-1.1) Eosinophils # (Auto) 0.3 x10^3/uL (0.0-0.7) Basophils # (Auto) 0.0 x10^3/uL (0.0-0.2) Prothrombin Time 15.8 SEC (11.7-14.0) Prothromb Time International Ratio 1.3 (0.8-1.1) Sodium Level 138 mmol/L (136-145) Potassium Level 3.7 mmol/L (3.5-5.1) Chloride Level 105 mmol/L (98-107) Carbon Dioxide Level 30 mmol/L (21-32) Anion Gap 3 (6-14) Blood Urea Nitrogen 14 mg/dL (8-26) Creatinine 0.6 mg/dL (0.7-1.3) Estimated GFR (Cockcroft-Gault) 132.4 Glucose Level 138 mg/dL (70-99) Calcium Level 8.0 mg/dL (8.5-10.1) Test 10/03/20 05:52 10/03/20 10:15 10/03/20 12:08 Glucose (Fingerstick) 139 mg/dL (70-99) 173 mg/dL (70-99) Stool Occult Blood Negative (NEG) Assessment and Plan Assessmemt and Plan Problems Medical Problems: (1) NSTEMI (non-ST elevated myocardial infarction) Status: Acute (2) Obtundation Status: Acute (3) Respiratory arrest Status: Acute Comment Review of Relevant I have reviewed the following items denise (where applicable) has been applied. Medications: Current Medications Medications (Trade) Dose Ordered Sig/Dru Route PRN Reason Start Time Stop Time Status Last Admin Dose Admin Multi-Ingred Cream/Lotion/Oil/ Oint (Artificial Tears Eye Ointment) 1 demetrius PRN Q1HR PRN OU DRY EYE 10/02/20 12:45 10/02/20 12:52 Justifications for Admission Other Justification Hypoglycemia and altered mental status. FUAD CUTLER MD Oct 03, 2020 12:18
[2020-10-03] MEDS: MINERAL OIL/PETROLATUM,WHITE OPHTH OINT 3.5GM TUBE. OU PRN (12:24)
--- NOTE | 2020-10-03 18:37 | PDOC2 ---
CONSULT Date of Consult Date of Consult DATE: 10/03/20 TIME: 18:32 Reason for Consult Reason for Consult: Respiratory failure Referring Physician Referring Physician: Dr. Rubalcava Identification/Chief Complaint Chief Complaint none Source Source: Chart review History of Present Illness Reason for Visit: 70 yo M with respiratory failure. Pt currently stable and orally intubated. Past Medical History Cardiovascular: AFIB, CAD, CHF, CT, Hyperlipidemia, Other Pulmonary: COPD, Other CENTRAL NERVOUS SYSTEM: Seizure GI: Other Endocrine: Diabetes Past Surgical History Past Surgical History: Other Family History Family History: Coronary Artery Disease, High Cholestrol, Hypertension Social History ALCOHOL: none Drugs: None Lives: Alone Current Problem List Problem List Problems Medical Problems: (1) NSTEMI (non-ST elevated myocardial infarction) Status: Acute (2) Obtundation Status: Acute (3) Respiratory arrest Status: Acute Current Medications Current Medications Current Medications Fentanyl Citrate 30 ml @ 0 mls/hr CONT PRN IV SEE PROTOCOL; Start 09/22/20 at 09:45 Propofol 100 ml @ 0 mls/hr CONT PRN IV PER PROTOCOL Last administered on 09/22/20at 10:30; Start 09/22/20 at 09:45; Stop 09/26/20 at 20:12; Status DC Fentanyl Citrate (Fentanyl 2ml Vial) 25 mcg PRN Q1HR PRN IV SEE COMMENTS; Start 09/22/20 at 09:45 Fentanyl Citrate (Fentanyl 2ml Vial) 50 mcg PRN Q1HR PRN IV SEE COMMENTS Last administered on 10/03/20at 01:22; Start 09/22/20 at 09:45 Chlorhexidine Gluconate (Peridex) 15 ml BID MM ; Start 09/22/20 at 10:00; Stop 09/22/20 at 19:54; Status DC Midazolam HCl (Versed) 2 mg 1X ONCE IV ; Start 09/22/20 at 10:30; Stop 09/22/20 at 10:31; Status DC Iohexol (Omnipaque 300 Mg/ml) 75 ml 1X ONCE IV Last administered on 09/22/20at 11:06; Start 09/22/20 at 10:45; Stop 09/22/20 at 10:46; Status DC Info (CONTRAST GIVEN -- Rx MONITORING) 1 each PRN DAILY PRN MC SEE COMMENTS; Start 09/22/20 at 10:45; Stop 09/24/20 at 10:44; Status DC Potassium Chloride/Water 100 ml @ 100 mls/hr Q1H IV Last administered on 09/22/20at 20:27; Start 09/22/20 at 15:00; Stop 09/22/20 at 18:59; Status DC Cefepime HCl (Maxipime) 1 gm Q8HRS IVP Last administered on 09/29/20at 05:52; Start 09/22/20 at 14:00; Stop 09/29/20 at 10:32; Status DC Sennosides (Senna) 17.2 mg PRN BID PRN PO CONSTIPATION; Start 09/22/20 at 14:00 Docusate Sodium (Colace) 100 mg PRN DAILY PRN PO HARD STOOLS; Start 09/22/20 at 14:00; Stop 09/22/20 at 14:00; Status DC Ondansetron HCl (Zofran) 4 mg PRN Q6HRS PRN IVP NAUSEA/VOMITING, 1ST CHOICE; Start 09/22/20 at 14:00 Insulin Human Lispro (HumaLOG) 0-7 UNITS Q6HRS SQ Last administered on 10/03/20at 12:24; Start 09/22/20 at 18:00 Dextrose (Dextrose 50%-Water Syringe) 12.5 gm PRN Q15MIN PRN IV SEE COMMENTS Last administered on 09/22/20at 17:47; Start 09/22/20 at 14:00 Dextrose/Sodium Chloride 1,000 ml @ 50 mls/hr Q20H IV Last administered on 10/03/20at 10:30; Start 09/22/20 at 14:00 Acetaminophen (Tylenol) 650 mg PRN Q4HRS PRN PO TEMP OVER 100.4F OR MILD PAIN Last administered on 09/23/20at 00:20; Start 09/22/20 at 14:00; Stop 09/23/20 at 16:24; Status DC Enoxaparin Sodium (Lovenox 40mg Syringe) 40 mg Q24H SQ ; Start 09/22/20 at 14:00; Status UNV Pantoprazole Sodium (PROTONIX VIAL for IV PUSH) 40 mg DAILY IVP Last administered on 10/03/20at 08:58; Start 09/23/20 at 09:00 Prochlorperazine Edisylate (Compazine) 10 mg PRN Q6HRS PRN IV NAUSEA/VOMITING, 2ND CHOICE; Start 09/22/20 at 14:00 Etomidate (Amidate) 20 mg STK-MED ONCE IV ; Start 09/22/20 at 17:46; Stop 09/22/20 at 17:46; Status DC Rocuronium [place] (Zemuron) 50 mg STK-MED ONCE .ROUTE ; Start 09/22/20 at 17:4 6; Stop 09/22/20 at 17:47; Status DC Norepinephrine Bitartrate 8 mg/ Dextrose 258 ml @ 21.769 mls/ hr CONT PRN IV PER PROTOCOL Last administered on 09/24/20at 13:20; Start 09/22/20 at 18:15 Potassium Chloride/Water 100 ml @ 100 mls/hr Q1H IV Last administered on 09/23/20at 14:30; Start 09/23/20 at 07:00; Stop 09/23/20 at 14:59; Status DC Acetaminophen (Tylenol) 650 mg PRN Q6HRS PRN PEG MILD PAIN / TEMP > 100.3'F Last administered on 09/23/20at 16:34; Start 09/23/20 at 16:30 Warfarin Sodium (Coumadin Per Pharmacy) 1 each PRN DAILY PRN MC SEE COMMENTS Last administered on 10/01/20at 12:32; Start 09/24/20 at 12:30; Stop 10/02/20 at 05:55; Status DC Warfarin Sodium (Coumadin) 5 mg 1X WARF ONCE PO Last administered on 09/24/20at 17:42; Start 09/24/20 at 16:00; Stop 09/24/20 at 16:01; Status DC Warfarin Sodium (Coumadin - No Dose Today) 1 each 1X WARF ONCE MC ; Start 09/25/20 at 16:00; Stop 09/25/20 at 16:01; Status DC Warfarin Sodium (Coumadin) 1 mg 1X WARF ONCE PO Last administered on 09/26/20at 16:00; Start 09/26/20 at 16:00; Stop 09/26/20 at 16:01; Status DC Propofol 100 ml @ 3.174 mls/ hr CONT PRN IV PER PROTOCOL Last administered on 10/02/20at 06:36; Start 09/26/20 at 20:15 Atropine Sulfate (ATROPINE 1mg SYRINGE) 1 mg STK-MED ONCE .ROUTE ; Start at 10:00; Stop 09/27/20 at 08:20; Status DC Epinephrine HCl (EPINEPHrine SYRINGE) 1 mg STK-MED ONCE .ROUTE ; Start 09/25/20 at 10:00; Stop 09/27/20 at 08:20; Status DC Warfarin Sodium (Coumadin) 2 mg 1X WARF ONCE PO Last administered on 09/27/20at 17:53; Start 09/27/20 at 16:00; Stop 09/27/20 at 16:01; Status DC Aspirin (Aspirin Chewable) 81 mg DAILYWBKFT PO Last administered on 10/03/20at 08:57; Start 09/27/20 at 09:30 Clopidogrel Bisulfate (Plavix) 75 mg DAILYWBKFT PO Last administered on 10/03at 08:57; Start 09/27/20 at 09:30 Potassium Chloride/Water 100 ml @ 100 mls/hr Q1H IV Last administered on 09/27/20at 12:45; Start 09/27/20 at 11:30; Stop 09/27/20 at 13:29; Status DC Warfarin Sodium (Coumadin) 3 mg 1X WARF ONCE PO Last administered on 09/28/20at 18:18; Start 09/28/20 at 16:00; Stop 09/28/20 at 16:01; Status DC Cefepime HCl (Maxipime) 2 gm Q8HRS IVP Last administered on 10/03/20at 15:00; Start 09/29/20 at 14:00 Warfarin Sodium (Coumadin) 3 mg 1X WARF ONCE PO Last administered on 09/29/20at 16:55; Start 09/29/20 at 16:00; Stop 09/29/20 at 16:01; Status DC Warfarin Sodium (Coumadin) 3 mg 1X WARF ONCE PO Last administered on 09/30/20at 16:00; Start 09/30/20 at 16:00; Stop 09/30/20 at 16:01; Status DC Warfarin Sodium (Coumadin) 5 mg 1X WARF ONCE PO Last administered on 10/01/20at 16:35; Start 10/01/20 at 16:00; Stop 10/01/20 at 16:01; Status DC Multi-Ingred Cream/Lotion/Oil/ Oint (Artificial Tears Eye Ointment) 1 sudheer PRN Q1HR PRN OU DRY EYE Last administered on 10/03/20at 12:24; Start 10/02/20 at 12:45 Active Scripts Active Amiodarone Hcl 200 Mg Tablet 400 Mg PO DAILY 90 Days [Warfarin Per Pharmacy] 1 EACH Each 1 Each MC PRN DAILY PRN 30 Days Clopidogrel (Clopidogrel Bisulfate) 75 Mg Tablet 75 Mg PO DAILYWBKFT 90 Days Humalog (Insulin Lispro) 100 Unit/1 Ml Insuln.pen 0 Units SQ TIDWMEALS 30 Days Duoneb 0.5-3(2.5) Mg/3 Ml (Albuterol/Ipratropium) 3 Ml Ampul.neb 3 Ml NEB RTQID 30 Days Aspirin 325 Mg Tablet 325 Mg PO DAILYWBKFT 30 Days Metoprolol Tartrate 25 Mg Tablet 25 Mg PO BID 30 Days Montelukast Sodium Tablet (Montelukast Sodium) 10 Mg Tablet 10 Mg PO QHS Gabapentin 600 Mg Tablet 600 Mg PO BID 30 Days Reported Glimepiride 4 Mg Tablet 1 Tab PO DAILY Furosemide 40 Mg Tablet 1 Tab PO BID Symbicort 160-4.5 Mcg Inhaler (Budesonide/Formoterol Fumarate) 10.2 Gm Hfa.aer.ad 1 Puff INH DAILY Losartan-Hctz 100-12.5 Mg Tab (Losartan/Hydrochlorothiazide) 1 Each Tablet 1 Tab PO DAILY Nitrofurantoin [place]-Mcr 100 Mg (Nitrofurantoin Monohyd/M-Cryst) 100 Mg Capsule 1 Cap PO BID Betamethasone Valerate 60 Ml Lotion 1 TP QHS Atorvastatin Calcium 40 Mg Tablet 1 Tab PO DAILY Diltiazem 24Hr Cd (Diltiazem HCl) 240 Mg Cap.er.24h 1 Cap PO DAILY Nystop (Nystatin) 60 Gm Powder 1 Sudheer TP BID Pepcid (Famotidine) 20 Mg Tablet 20 Mg PO BID Allergies Allergies: Coded Allergies: heparin (Verified Allergy, Severe, 09/04/20) + HIT 09/04/20 Penicillins (Verified Allergy, Intermediate, PT DOESN'T REMEMBER, 03/21/16) bacitracin (Verified Allergy, Intermediate, 10/25/14) chlorpheniramine (Verified Allergy, Intermediate, 10/25/14) ciprofloxacin (Verified Allergy, Intermediate, 10/25/14) codeine (Verified Allergy, Intermediate, 10/25/14) dextromethorphan (Verified Allergy, Intermediate, 10/25/14) felodipine (Verified Allergy, Intermediate, 02/18/20) Diltiazem ok influenza virus vaccine, specific (Verified Allergy, Intermediate, 10/25/14) neomycin (Verified Allergy, Intermediate, 10/25/14) phenylephrine (Verified Allergy, Intermediate, 10/25/14) polymyxin B (Verified Allergy, Intermediate, 10/25/14) sulfamethoxazole (Verified Allergy, Intermediate, 10/25/14) trimethoprim (Verified Allergy, Intermediate, 10/25/14) ROS Review of System unobtainable Physical Exam General: No acute distress HEENT: Other (orally intubated) Lungs: Normal air movement Abdomen: Soft Vitals VITALS Vital Signs Date Time Temp Pulse Resp B/P (MAP) Pulse Ox O2 Delivery O2 Flow Rate FiO2 10/03/20 18:00 83 15 115/83 (94) 100 Ventilator 10/03/20 16:00 98.8 98.8 Labs Labs Laboratory Tests Test 10/01/20 23:28 10/02/20 05:00 10/02/20 13:06 10/02/20 18:42 Glucose (Fingerstick) 134 mg/dL (70-99) 138 mg/dL (70-99) 171 mg/dL (70-99) 142 mg/dL (70-99) White Blood Count 6.2 x10^3/uL (4.0-11.0) Red Blood Count 2.02 x10^6/uL (4.30-5.70) Hemoglobin 6.3 g/dL (13.0-17.5) Hematocrit 19.3 % (39.0-53.0) Mean Corpuscular Volume 96 fL (79-100) Mean Corpuscular Hemoglobin 31 pg (25-35) Mean Corpuscular Hemoglobin Concent 33 g/dL (31-37) Red Cell Distribution Width 19.0 % (11.5-14.5) Platelet Count 237 x10^3/uL (140-400) Neutrophils (%) (Auto) 55 % (31-73) Lymphocytes (%) (Auto) 34 % (24-48) Monocytes (%) (Auto) 5 % (0-9) Eosinophils (%) (Auto) 5 % (0-3) Basophils (%) (Auto) 1 % (0-3) Neutrophils # (Auto) 3.4 x10^3/uL (1.8-7.7) Lymphocytes # (Auto) 2.1 x10^3/uL (1.0-4.8) Monocytes # (Auto) 0.3 x10^3/uL (0.0-1.1) Eosinophils # (Auto) 0.3 x10^3/uL (0.0-0.7) Basophils # (Auto) 0.0 x10^3/uL (0.0-0.2) Segmented Neutrophils % 57 % (35-66) Band Neutrophils % 3 % (0-9) Lymphocytes % 34 % (24-48) Monocytes % 4 % (0-10) Eosinophils % 2 % (0-5) Platelet Estimate Adequate (ADEQUATE) Polychromasia Slight Basophilic Stippling Present Anisocytosis Slight Prothrombin Time 16.6 SEC (11.7-14.0) Prothromb Time International Ratio 1.4 (0.8-1.1) Sodium Level 142 mmol/L (136-145) Potassium Level 3.3 mmol/L (3.5-5.1) Chloride Level 107 mmol/L (98-107) Carbon Dioxide Level 31 mmol/L (21-32) Anion Gap 4 (6-14) Blood Urea Nitrogen 14 mg/dL (8-26) Creatinine 0.6 mg/dL (0.7-1.3) Estimated GFR (Cockcroft-Gault) 132.4 Glucose Level 145 mg/dL (70-99) Calcium Level 8.1 mg/dL (8.5-10.1) Test 10/02/20 23:55 10/03/20 05:00 10/03/20 05:52 10/03/20 10:15 Glucose (Fingerstick) 150 mg/dL (70-99) 139 mg/dL (70-99) White Blood Count 6.1 x10^3/uL (4.0-11.0) Red Blood Count 2.79 x10^6/uL (4.30-5.70) Hemoglobin 8.9 g/dL (13.0-17.5) Hematocrit 26.5 % (39.0-53.0) Mean Corpuscular Volume 95 fL (79-100) Mean Corpuscular Hemoglobin 32 pg (25-35) Mean Corpuscular Hemoglobin Concent 34 g/dL (31-37) Red Cell Distribution Width 17.0 % (11.5-14.5) Platelet Count 218 x10^3/uL (140-400) Neutrophils (%) (Auto) 54 % (31-73) Lymphocytes (%) (Auto) 35 % (24-48) Monocytes (%) (Auto) 6 % (0-9) Eosinophils (%) (Auto) 4 % (0-3) Basophils (%) (Auto) 1 % (0-3) Neutrophils # (Auto) 3.3 x10^3/uL (1.8-7.7) Lymphocytes # (Auto) 2.2 x10^3/uL (1.0-4.8) Monocytes # (Auto) 0.4 x10^3/uL (0.0-1.1) Eosinophils # (Auto) 0.3 x10^3/uL (0.0-0.7) Basophils # (Auto) 0.0 x10^3/uL (0.0-0.2) Prothrombin Time 15.8 SEC (11.7-14.0) Prothromb Time International Ratio 1.3 (0.8-1.1) Sodium Level 138 mmol/L (136-145) Potassium Level 3.7 mmol/L (3.5-5.1) Chloride Level 105 mmol/L (98-107) Carbon Dioxide Level 30 mmol/L (21-32) Anion Gap 3 (6-14) Blood Urea Nitrogen 14 mg/dL (8-26) Creatinine 0.6 mg/dL (0.7-1.3) Estimated GFR (Cockcroft-Gault) 132.4 Glucose Level 138 mg/dL (70-99) Calcium Level 8.0 mg/dL (8.5-10.1) Stool Occult Blood Negative (NEG) Test 10/03/20 12:08 10/03/20 18:09 Glucose (Fingerstick) 173 mg/dL (70-99) 150 mg/dL (70-99) Laboratory Tests Test 10/02/20 18:42 10/02/20 23:55 10/03/20 05:00 10/03/20 05:52 Glucose (Fingerstick) 142 mg/dL (70-99) 150 mg/dL (70-99) 139 mg/dL (70-99) White Blood Count 6.1 x10^3/uL (4.0-11.0) Red Blood Count 2.79 x10^6/uL (4.30-5.70) Hemoglobin 8.9 g/dL (13.0-17.5) Hematocrit 26.5 % (39.0-53.0) Mean Corpuscular Volume 95 fL (79-100) Mean Corpuscular Hemoglobin 32 pg (25-35) Mean Corpuscular Hemoglobin Concent 34 g/dL (31-37) Red Cell Distribution Width 17.0 % (11.5-14.5) Platelet Count 218 x10^3/uL (140-400) Neutrophils (%) (Auto) 54 % (31-73) Lymphocytes (%) (Auto) 35 % (24-48) Monocytes (%) (Auto) 6 % (0-9) Eosinophils (%) (Auto) 4 % (0-3) Basophils (%) (Auto) 1 % (0-3) Neutrophils # (Auto) 3.3 x10^3/uL (1.8-7.7) Lymphocytes # (Auto) 2.2 x10^3/uL (1.0-4.8) Monocytes # (Auto) 0.4 x10^3/uL (0.0-1.1) Eosinophils # (Auto) 0.3 x10^3/uL (0.0-0.7) Basophils # (Auto) 0.0 x10^3/uL (0.0-0.2) Prothrombin Time 15.8 SEC (11.7-14.0) Prothromb Time International Ratio 1.3 (0.8-1.1) Sodium Level 138 mmol/L (136-145) Potassium Level 3.7 mmol/L (3.5-5.1) Chloride Level 105 mmol/L (98-107) Carbon Dioxide Level 30 mmol/L (21-32) Anion Gap 3 (6-14) Blood Urea Nitrogen 14 mg/dL (8-26) Creatinine 0.6 mg/dL (0.7-1.3) Estimated GFR (Cockcroft-Gault) 132.4 Glucose Level 138 mg/dL (70-99) Calcium Level 8.0 mg/dL (8.5-10.1) Test 10/03/20 10:15 10/03/20 12:08 10/03/20 18:09 Stool Occult Blood Negative (NEG) Glucose (Fingerstick) 173 mg/dL (70-99) 150 mg/dL (70-99) Assessment/Plan Assessment/Plan Respiratory failure will tenatively plan trach on 10/05 Thanks for consult! SCAR BRO MD Oct 03, 2020 18:37
[2020-10-03] MEDS: PROPOFOL 100 ML IV PRN (23:58)
[2020-10-04] VITALS (24 sets, daily range): BP systolic 102–163; BP diastolic 55–98
[2020-10-04] MEDS: IV DEXTROSE 5 %-0.45 % NACL 1,000 ML IV SCH (04:57)
[2020-10-04] MEDS: CEFEPIME HCL IV Push 2 GM VIAL. IVP SCH ×3 (05:36→22:26)
[2020-10-04] MEDS: INSULIN LISPRO 300 UNITS/3 ML VIAL. SQ SCH ×4 (05:44→18:26)
[2020-10-04 06:21] LABS: PROTHROMBIN TIME PATIENT 14.4 SEC (11.7-14.0)
[2020-10-04 08:06] LABS: CALCIUM 8.3 mg/dL (8.5-10.1); CREATININE 0.5 mg/dL (0.7-1.3); GFR 163.5; MAGNESIUM 1.9 mg/dL (1.8-2.4); POTASSIUM 3.5 mmol/L (3.5-5.1)
[2020-10-04 08:07] LABS: BASO % 1 % (0-3); EOS # 0.3 x10^3/uL (0.0-0.7); EOS % 5 % (0-3); HEMATOCRIT 26.6 % (39.0-53.0); HEMOGLOBIN 8.9 g/dL (13.0-17.5); LYMPH # 1.9 x10^3/uL (1.0-4.8); LYMPH % 35 % (24-48); MEAN CORPUSCULAR HEMOGLOBIN 32 pg (25-35); MEAN CORPUSCULAR HGB CONC 33 g/dL (31-37); MEAN CORPUSCULAR VOLUME 96 fL (79-100); MONO # 0.4 x10^3/uL (0.0-1.1); MONO % 7 % (0-9); NEUT # 2.9 x10^3/uL (1.8-7.7); NEUT % 53 % (31-73); PLATELET COUNT 224 x10^3/uL (140-400); RED BLOOD COUNT 2.78 x10^6/uL (4.30-5.70); RED CELL DISTRIBUTION WIDTH 17.5 % (11.5-14.5); WHITE BLOOD COUNT 5.5 x10^3/uL (4.0-11.0)
[2020-10-04] MEDS: PANTOPRAZOLE IV PUSH 40 MG VIAL. IVP SCH (08:54)
[2020-10-04] MEDS: ASPIRIN CHEWABLE 81 MG TABLET. PO SCH (08:55)
[2020-10-04] MEDS: CLOPIDOGREL BISULFATE 75 MG TABLET PO SCH (08:55)
[2020-10-04] MEDS: PROPOFOL 100 ML IV PRN ×2 (08:55→20:11)
--- NOTE | 2020-10-04 10:50 | PDOC ---
SURGICAL PROGRESS NOTE DATE: 10/04/20 TIME: 10:49 Subjective Pt asleep on vent Vital Signs Vital Signs Date Time Temp Pulse Resp B/P (MAP) Pulse Ox O2 Delivery O2 Flow Rate FiO2 10/04/20 09:22 100 Ventilator 10/04/20 08:00 98.7 87 16 114/68 (83) 98.7 I&O Intake and Output 10/04/20 07:00 Intake Total 2301 ml Output Total 1840 ml Balance 461 ml IV Total 640 ml Tube Feeding 1661 ml Output Urine Total 1840 ml General: No acute distress HEENT: Other (orally intubated) Labs Laboratory Tests Test 10/02/20 13:06 10/02/20 18:42 10/02/20 23:55 10/03/20 05:00 Glucose (Fingerstick) 171 mg/dL (70-99) 142 mg/dL (70-99) 150 mg/dL (70-99) White Blood Count 6.1 x10^3/uL (4.0-11.0) Red Blood Count 2.79 x10^6/uL (4.30-5.70) Hemoglobin 8.9 g/dL (13.0-17.5) Hematocrit 26.5 % (39.0-53.0) Mean Corpuscular Volume 95 fL (79-100) Mean Corpuscular Hemoglobin 32 pg (25-35) Mean Corpuscular Hemoglobin Concent 34 g/dL (31-37) Red Cell Distribution Width 17.0 % (11.5-14.5) Platelet Count 218 x10^3/uL (140-400) Neutrophils (%) (Auto) 54 % (31-73) Lymphocytes (%) (Auto) 35 % (24-48) Monocytes (%) (Auto) 6 % (0-9) Eosinophils (%) (Auto) 4 % (0-3) Basophils (%) (Auto) 1 % (0-3) Neutrophils # (Auto) 3.3 x10^3/uL (1.8-7.7) Lymphocytes # (Auto) 2.2 x10^3/uL (1.0-4.8) Monocytes # (Auto) 0.4 x10^3/uL (0.0-1.1) Eosinophils # (Auto) 0.3 x10^3/uL (0.0-0.7) Basophils # (Auto) 0.0 x10^3/uL (0.0-0.2) Prothrombin Time 15.8 SEC (11.7-14.0) Prothromb Time International Ratio 1.3 (0.8-1.1) Sodium Level 138 mmol/L (136-145) Potassium Level 3.7 mmol/L (3.5-5.1) Chloride Level 105 mmol/L (98-107) Carbon Dioxide Level 30 mmol/L (21-32) Anion Gap 3 (6-14) Blood Urea Nitrogen 14 mg/dL (8-26) Creatinine 0.6 mg/dL (0.7-1.3) Estimated GFR (Cockcroft-Gault) 132.4 Glucose Level 138 mg/dL (70-99) Calcium Level 8.0 mg/dL (8.5-10.1) Test 10/03/20 05:52 10/03/20 10:15 10/03/20 12:08 10/03/20 18:09 Glucose (Fingerstick) 139 mg/dL (70-99) 173 mg/dL (70-99) 150 mg/dL (70-99) Stool Occult Blood Negative (NEG) Test 10/04/20 00:09 10/04/20 05:41 10/04/20 06:00 Glucose (Fingerstick) 149 mg/dL (70-99) 134 mg/dL (70-99) White Blood Count 5.5 x10^3/uL (4.0-11.0) Red Blood Count 2.78 x10^6/uL (4.30-5.70) Hemoglobin 8.9 g/dL (13.0-17.5) Hematocrit 26.6 % (39.0-53.0) Mean Corpuscular Volume 96 fL (79-100) Mean Corpuscular Hemoglobin 32 pg (25-35) Mean Corpuscular Hemoglobin Concent 33 g/dL (31-37) Red Cell Distribution Width 17.5 % (11.5-14.5) Platelet Count 224 x10^3/uL (140-400) Neutrophils (%) (Auto) 53 % (31-73) Lymphocytes (%) (Auto) 35 % (24-48) Monocytes (%) (Auto) 7 % (0-9) Eosinophils (%) (Auto) 5 % (0-3) Basophils (%) (Auto) 1 % (0-3) Neutrophils # (Auto) 2.9 x10^3/uL (1.8-7.7) Lymphocytes # (Auto) 1.9 x10^3/uL (1.0-4.8) Monocytes # (Auto) 0.4 x10^3/uL (0.0-1.1) Eosinophils # (Auto) 0.3 x10^3/uL (0.0-0.7) Basophils # (Auto) 0.0 x10^3/uL (0.0-0.2) Prothrombin Time 14.4 SEC (11.7-14.0) Prothromb Time International Ratio 1.1 (0.8-1.1) Sodium Level 142 mmol/L (136-145) Potassium Level 3.5 mmol/L (3.5-5.1) Chloride Level 108 mmol/L (98-107) Carbon Dioxide Level 29 mmol/L (21-32) Anion Gap 5 (6-14) Blood Urea Nitrogen 13 mg/dL (8-26) Creatinine 0.5 mg/dL (0.7-1.3) Estimated GFR (Cockcroft-Gault) 163.5 Glucose Level 138 mg/dL (70-99) Calcium Level 8.3 mg/dL (8.5-10.1) Magnesium Level 1.9 mg/dL (1.8-2.4) Laboratory Tests Test 10/03/20 12:08 10/03/20 18:09 10/04/20 00:09 10/04/20 05:41 Glucose (Fingerstick) 173 mg/dL (70-99) 150 mg/dL (70-99) 149 mg/dL (70-99) 134 mg/dL (70-99) Test 10/04/20 06:00 White Blood Count 5.5 x10^3/uL (4.0-11.0) Red Blood Count 2.78 x10^6/uL (4.30-5.70) Hemoglobin 8.9 g/dL (13.0-17.5) Hematocrit 26.6 % (39.0-53.0) Mean Corpuscular Volume 96 fL (79-100) Mean Corpuscular Hemoglobin 32 pg (25-35) Mean Corpuscular Hemoglobin Concent 33 g/dL (31-37) Red Cell Distribution Width 17.5 % (11.5-14.5) Platelet Count 224 x10^3/uL (140-400) Neutrophils (%) (Auto) 53 % (31-73) Lymphocytes (%) (Auto) 35 % (24-48) Monocytes (%) (Auto) 7 % (0-9) Eosinophils (%) (Auto) 5 % (0-3) Basophils (%) (Auto) 1 % (0-3) Neutrophils # (Auto) 2.9 x10^3/uL (1.8-7.7) Lymphocytes # (Auto) 1.9 x10^3/uL (1.0-4.8) Monocytes # (Auto) 0.4 x10^3/uL (0.0-1.1) Eosinophils # (Auto) 0.3 x10^3/uL (0.0-0.7) Basophils # (Auto) 0.0 x10^3/uL (0.0-0.2) Prothrombin Time 14.4 SEC (11.7-14.0) Prothromb Time International Ratio 1.1 (0.8-1.1) Sodium Level 142 mmol/L (136-145) Potassium Level 3.5 mmol/L (3.5-5.1) Chloride Level 108 mmol/L (98-107) Carbon Dioxide Level 29 mmol/L (21-32) Anion Gap 5 (6-14) Blood Urea Nitrogen 13 mg/dL (8-26) Creatinine 0.5 mg/dL (0.7-1.3) Estimated GFR (Cockcroft-Gault) 163.5 Glucose Level 138 mg/dL (70-99) Calcium Level 8.3 mg/dL (8.5-10.1) Magnesium Level 1.9 mg/dL (1.8-2.4) Problem List Problems Medical Problems: (1) NSTEMI (non-ST elevated myocardial infarction) Status: Acute (2) Obtundation Status: Acute (3) Respiratory arrest Status: Acute Assessment/Plan will plan tracheostomy in AM d/w pulm-no family or DPOA medically indicated. Justicifation of Admission Dx: Justifications for Admission: Justification of Admission Dx: Yes CHF: Cardiac Arrhythmias SCAR BRO MD Oct 04, 2020 10:50
--- NOTE | 2020-10-04 12:10 | PDOC ---
PULMONARY PROGRESS NOTES DATE: 10/04/20 TIME: 12:06 Subjective on vent support 40%/5 no overnight issues Vitals Vital Signs Date Time Temp Pulse Resp B/P (MAP) Pulse Ox O2 Delivery O2 Flow Rate FiO2 10/04/20 11:36 100 Ventilator 10/04/20 11:00 87 20 118/74 (89) 10/04/20 08:00 98.7 98.7 Comments ros unable to obtain sedated on vent HEENT: Other (nc at perrl nose clear orally intubated neck no lad no thyromegaly) Lungs: Other (Intubated) Cardiovascular: S1, S2 Abdomen: Soft, Non-tender, Other (Obese) Extremities: Other (1+ edema) Skin: Warm Labs Laboratory Tests Test 10/02/20 13:06 10/02/20 18:42 10/02/20 23:55 10/03/20 05:00 Glucose (Fingerstick) 171 mg/dL (70-99) 142 mg/dL (70-99) 150 mg/dL (70-99) White Blood Count 6.1 x10^3/uL (4.0-11.0) Red Blood Count 2.79 x10^6/uL (4.30-5.70) Hemoglobin 8.9 g/dL (13.0-17.5) Hematocrit 26.5 % (39.0-53.0) Mean Corpuscular Volume 95 fL (79-100) Mean Corpuscular Hemoglobin 32 pg (25-35) Mean Corpuscular Hemoglobin Concent 34 g/dL (31-37) Red Cell Distribution Width 17.0 % (11.5-14.5) Platelet Count 218 x10^3/uL (140-400) Neutrophils (%) (Auto) 54 % (31-73) Lymphocytes (%) (Auto) 35 % (24-48) Monocytes (%) (Auto) 6 % (0-9) Eosinophils (%) (Auto) 4 % (0-3) Basophils (%) (Auto) 1 % (0-3) Neutrophils # (Auto) 3.3 x10^3/uL (1.8-7.7) Lymphocytes # (Auto) 2.2 x10^3/uL (1.0-4.8) Monocytes # (Auto) 0.4 x10^3/uL (0.0-1.1) Eosinophils # (Auto) 0.3 x10^3/uL (0.0-0.7) Basophils # (Auto) 0.0 x10^3/uL (0.0-0.2) Prothrombin Time 15.8 SEC (11.7-14.0) Prothromb Time International Ratio 1.3 (0.8-1.1) Sodium Level 138 mmol/L (136-145) Potassium Level 3.7 mmol/L (3.5-5.1) Chloride Level 105 mmol/L (98-107) Carbon Dioxide Level 30 mmol/L (21-32) Anion Gap 3 (6-14) Blood Urea Nitrogen 14 mg/dL (8-26) Creatinine 0.6 mg/dL (0.7-1.3) Estimated GFR (Cockcroft-Gault) 132.4 Glucose Level 138 mg/dL (70-99) Calcium Level 8.0 mg/dL (8.5-10.1) Test 10/03/20 05:52 10/03/20 10:15 10/03/20 12:08 10/03/20 18:09 Glucose (Fingerstick) 139 mg/dL (70-99) 173 mg/dL (70-99) 150 mg/dL (70-99) Stool Occult Blood Negative (NEG) Test 10/04/20 00:09 10/04/20 05:41 10/04/20 06:00 Glucose (Fingerstick) 149 mg/dL (70-99) 134 mg/dL (70-99) White Blood Count 5.5 x10^3/uL (4.0-11.0) Red Blood Count 2.78 x10^6/uL (4.30-5.70) Hemoglobin 8.9 g/dL (13.0-17.5) Hematocrit 26.6 % (39.0-53.0) Mean Corpuscular Volume 96 fL (79-100) Mean Corpuscular Hemoglobin 32 pg (25-35) Mean Corpuscular Hemoglobin Concent 33 g/dL (31-37) Red Cell Distribution Width 17.5 % (11.5-14.5) Platelet Count 224 x10^3/uL (140-400) Neutrophils (%) (Auto) 53 % (31-73) Lymphocytes (%) (Auto) 35 % (24-48) Monocytes (%) (Auto) 7 % (0-9) Eosinophils (%) (Auto) 5 % (0-3) Basophils (%) (Auto) 1 % (0-3) Neutrophils # (Auto) 2.9 x10^3/uL (1.8-7.7) Lymphocytes # (Auto) 1.9 x10^3/uL (1.0-4.8) Monocytes # (Auto) 0.4 x10^3/uL (0.0-1.1) Eosinophils # (Auto) 0.3 x10^3/uL (0.0-0.7) Basophils # (Auto) 0.0 x10^3/uL (0.0-0.2) Prothrombin Time 14.4 SEC (11.7-14.0) Prothromb Time International Ratio 1.1 (0.8-1.1) Sodium Level 142 mmol/L (136-145) Potassium Level 3.5 mmol/L (3.5-5.1) Chloride Level 108 mmol/L (98-107) Carbon Dioxide Level 29 mmol/L (21-32) Anion Gap 5 (6-14) Blood Urea Nitrogen 13 mg/dL (8-26) Creatinine 0.5 mg/dL (0.7-1.3) Estimated GFR (Cockcroft-Gault) 163.5 Glucose Level 138 mg/dL (70-99) Calcium Level 8.3 mg/dL (8.5-10.1) Magnesium Level 1.9 mg/dL (1.8-2.4) Laboratory Tests Test 10/03/20 12:08 10/03/20 18:09 10/04/20 00:09 10/04/20 05:41 Glucose (Fingerstick) 173 mg/dL (70-99) 150 mg/dL (70-99) 149 mg/dL (70-99) 134 mg/dL (70-99) Test 10/04/20 06:00 White Blood Count 5.5 x10^3/uL (4.0-11.0) Red Blood Count 2.78 x10^6/uL (4.30-5.70) Hemoglobin 8.9 g/dL (13.0-17.5) Hematocrit 26.6 % (39.0-53.0) Mean Corpuscular Volume 96 fL (79-100) Mean Corpuscular Hemoglobin 32 pg (25-35) Mean Corpuscular Hemoglobin Concent 33 g/dL (31-37) Red Cell Distribution Width 17.5 % (11.5-14.5) Platelet Count 224 x10^3/uL (140-400) Neutrophils (%) (Auto) 53 % (31-73) Lymphocytes (%) (Auto) 35 % (24-48) Monocytes (%) (Auto) 7 % (0-9) Eosinophils (%) (Auto) 5 % (0-3) Basophils (%) (Auto) 1 % (0-3) Neutrophils # (Auto) 2.9 x10^3/uL (1.8-7.7) Lymphocytes # (Auto) 1.9 x10^3/uL (1.0-4.8) Monocytes # (Auto) 0.4 x10^3/uL (0.0-1.1) Eosinophils # (Auto) 0.3 x10^3/uL (0.0-0.7) Basophils # (Auto) 0.0 x10^3/uL (0.0-0.2) Prothrombin Time 14.4 SEC (11.7-14.0) Prothromb Time International Ratio 1.1 (0.8-1.1) Sodium Level 142 mmol/L (136-145) Potassium Level 3.5 mmol/L (3.5-5.1) Chloride Level 108 mmol/L (98-107) Carbon Dioxide Level 29 mmol/L (21-32) Anion Gap 5 (6-14) Blood Urea Nitrogen 13 mg/dL (8-26) Creatinine 0.5 mg/dL (0.7-1.3) Estimated GFR (Cockcroft-Gault) 163.5 Glucose Level 138 mg/dL (70-99) Calcium Level 8.3 mg/dL (8.5-10.1) Magnesium Level 1.9 mg/dL (1.8-2.4) Medications Active Scripts Medications Dose Route/Sig Max Daily Dose Days Date Category Amiodarone Hcl 200 Mg Tablet 400 Mg PO DAILY 90 09/18/20 Rx [Warfarin Per Pharmacy] 1 EACH Each 1 Each MC PRN DAILY PRN 30 09/18/20 Rx Clopidogrel (Clopidogrel Bisulfate) 75 Mg Tablet 75 Mg PO DAILYWBKFT 90 09/18/20 Rx Glimepiride 4 Mg Tablet 1 Tab PO DAILY 09/13/20 Reported Furosemide 40 Mg Tablet 1 Tab PO BID 09/13/20 Reported Symbicort 160-4.5 Mcg Inhaler (Budesonide/Formoterol Fumarate) 10.2 Gm Hfa.aer.ad 1 Puff INH DAILY 09/13/20 Reported Losartan-Hctz 100-12.5 Mg Tab (Losartan/Hydrochlorothiazide) 1 Each Tablet 1 Tab PO DAILY 09/13/20 Reported Nitrofurantoin Glasscock-Mcr 100 Mg (Nitrofurantoin Monohyd/M-Cryst) 100 Mg Capsule 1 Cap PO BID 09/13/20 Reported Betamethasone Valerate 60 Ml Lotion 1 TP QHS 09/13/20 Reported Atorvastatin Calcium 40 Mg Tablet 1 Tab PO DAILY 09/13/20 Reported Diltiazem 24Hr Cd (Diltiazem HCl) 240 Mg Cap.er.24h 1 Cap PO DAILY 09/13/20 Reported Nystop (Nystatin) 60 Gm Powder 1 Sudheer TP BID 09/13/20 Reported Humalog (Insulin Lispro) 100 Unit/1 Ml Insuln.pen 0 Units SQ TIDWMEALS 30 08/06/18 Rx Duoneb 0.5-3(2.5) Mg/3 Ml (Albuterol/Ipratropium) 3 Ml Ampul.neb 3 Ml NEB RTQID 30 08/06/18 Rx Aspirin 325 Mg Tablet 325 Mg PO DAILYWBKFT 30 07/22/17 Rx Metoprolol Tartrate 25 Mg Tablet 25 Mg PO BID 30 07/22/17 Rx Montelukast Sodium Tablet (Montelukast Sodium) 10 Mg Tablet 10 Mg PO QHS 07/22/17 Rx Gabapentin 600 Mg Tablet 600 Mg PO BID 30 07/22/17 Rx Pepcid (Famotidine) 20 Mg Tablet 20 Mg PO BID 05/17/13 Reported Comments cxr reviewed 1.Improving interstitial prominence, persistent left basilar opacities. ett ok Impression . 1. Acute on chronic respiratory failure secondary to multifactorial etiologies including hypoglycemic encephalopathy. No evidence of new stroke. 2. Possible sepsis--- on antibiotics 3. Hypoglycemia./ encephalopathy 4. The patient with prior history of cerebrovascular accident with left-sided weakness. 5. Underlying chronic obstructive pulmonary disease. 6. Morbid obesity. 7. Peripheral vascular disease. 8. Abnormal CT chest with bibasilar atelectasis. No significant mucus plugging. Tiny pleural effusion seen. 9. Persistent encephalopathy. --ongoing 10. anemia Plan . Updated 10/04/20 Continue current vent support 10/450/40/5 attempt pressure support trial, tracheostomy is medically indicated secondary to inability to protect airway,Intubated 3 times. surgery planning trach in am plan to start PS weaning 24 hours post trach Continue ABX monitor HGB, improved Follow CXR/ABG --make changes as needed DVT/GI PPX: warfarin --on hold restart per PCP D/W RN and RT Patient is a DNR Updated 10/03/20 Continue current vent support 10/450/40/5 DC sedation, attempt pressure support trial, tracheostomy is medically indicated secondary to inability to protect airway,Intubated 3 times. surgery consult for tracheostomy Follow CXR/ABG --make changes as needed Continue ABX on cefepime Hemoglobin 6.3 today, hold Coumadin, monitor hemoglobin. Tx per PCP DVT/GI PPX: warfarin --on hold as patient is anemic D/W RN and RT Patient is a DNR Discussed with Dr. Fierro Updated 10/02/20 Continue current vent support 10/450/40/5 DC sedation, attempt pressure support trial, tracheostomy is medically indicated secondary to inability to protect airway,Intubated 3 times. consider surgery consult Follow CXR/ABG --make changes as needed Continue ABX on cefepime Hemoglobin 6.3 today, hold Coumadin, monitor hemoglobin. Tx per PCP DVT/GI PPX: warfarin --on hold as patient is anemic D/W RN and RT Patient is a DNR CC time 30 minutes CLINTON PALAFOX MD Oct 04, 2020 12:10
--- NOTE | 2020-10-04 12:49 | PDOC ---
[facility] PROGRESS NOTE Date of Service DOS: DATE: 10/04/20 TIME: 12:48 Chief Complaint Chief Complaint Acute anemia, likely due to acute blood loss due to multiple lab draws and multiple comorbidities. Acute metabolic, infectious encephalopathy Acute respiratory failure Healthcare associated pneumonia, possible aspiration, possible gram-negative organisms, possibly gram-positive organism Acute hypoglycemia Hypokalemia Elevated troponins concerning for type II demand ischemia Severe protein malnutrition Morbid obesity AAA, 4 cm History of diabetes mellitus type 2 History of dyslipidemia history of hypertension History of recent STEMI History of CAD with recent stent placement Pending 2 unit PRBC transfusion. Hypoglycemia protocol Continue empiric IV antibiotics with concern for aspiration pneumonia Pulmonology consult for vent management IV electrolyte replacement as needed Consider cardiology consult if troponins increase Lovenox for DVT prophylaxis Protonix while on the vent GI prophylaxis N.p.o. Full code Discussed with RN and SW Disposition inpatient management as above Surrogate decision maker is undesignated History of Present Illness History of Present Illness Patient is a 70-year-old male with a recent prolonged hospitalization for STEMI and respiratory failure for which she was treated with arterial thrombolysis for a right leg popliteal artery aneurysm and also had left heart cath with placement of a stent in the LAD and RCA comes in today after he was found obtunded at his [place] [facility] facility. Apparently according to the nursing facility patient was in his usual state of health and he was conversational but then became altered. His blood glucose was found to be in the 30s. Glucose tabs and glucagon was given in route and his GCS reported at 6. Upon arrival patient's mental status did not improve and he was eventually intubated for airway protection. Of note EMS was bagging the patient through the nasal access. In the ED, patient was placed on a vent and pulmonology was consulted. Patient was also taken to the CT scanner for sanders scanning. Patient was started to wake up on the vent and sedation was ordered. 09/23/20 Patient examined at bedside. Intubated. Not on any sedation but unresponsive. Neurology consult in place. 09/24/20 Patient seen and examined at bedside. Remains intubated he is off sedation but still remains unresponsive. Planning for MRI brain in the morning. Further plan to be determined by MRI. 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 Plan of care discussed with bedside RN 09/25/20: Afebrile, currently breathing on ventilator with FiO2 50%, PEEP 5. Had CODE BLUE in ICU this morning; received 2 rounds of CPR, epinephrine, and atropine with ROSC. I believe MRI will be obtained today, per neurology. I had discussion with Dr. Rubalcava about his very poor prognosis due to multifactorial comorbidities. In our opinion continuing with present aggressive care would be futile. I would recommend that he should be made DNR, and after discussion with Dr. Rubalcava he agrees. Since there is no family and no one to discuss goals of care, we agreed to make patient DNR. Critical care time 30 minutes spent reviewing charts, reviewing labs, imaging, discussion with RN. 09/26/2020: Afebrile. Still on vent, with FiO2 45%, PEEP 5. After discussion with Dr. Rubalcava yesterday, patient was made DNR. In the ED is likely a poor candidate for weaning trials may need trach in near future if no significant improvement. MRI with no acute findings. Continue with pressure support and IV antibiotics. Critical care time 30 minutes reviewing charts, labs, examination, discussion with RN. 09/27/2020: Afebrile. On vent with FiO2 40%, PEEP 5. Potassium 2.8 today, will replace. Warfarin has been resumed. Discussed with pharmacy, will resume aspi rin and Plavix. May need tracheostomy by the end of the week if no improvement in mental status. Chest x-ray today showed improving interstitial prominence, persistent left basilar opacities. Continue IV cefepime and supportive care. Critical care time 30 minutes reviewing charts, labs, examination, discussion with RN. 09/28/2020: Afebrile. On ventilator with FiO2 40%, PEEP 5. Warfarin has been resumed; INR 1.3 today. Some morning labs still pending; hemoglobin yesterday 7.3, will continue to monitor. May need tracheostomy at some point if no improvement in mental status. Continue IV cefepime and supportive care. Critical care time 30 minutes reviewing charts, labs, examination, discussion with RN. 09/29/2020: Afebrile. Breathing on vent with FiO2 40%, PEEP 5. INR 1.2 today; pharmacy to help with warfarin dosing. White count within normal range, renal function stable. Spoke with pharmacy about cefepime 1 g every 8 hours dosing; this has been changed to cefepime 2 g every 8 hours. Possible tracheostomy at some point. Critical care time 30 minutes reviewing charts, labs, examination, discussion with RN. 09/30/20: Afebrile. Currently breathing on vent with FiO2 40%, PEEP 5. Continue antibiotics, cefepime 2 g every 8 hours. INR 1.4; continue warfarin dosing per pharmacy. Possible tracheostomy at some point. Critical care time 30 minutes reviewing charts, labs, examination, discussion with RN. 10/01/2020: Febrile overnight with T-max 100.3 F. On ventilator with FiO2 40%, PEEP 5. Continue antibiotics, cefepime 2 g every 8 hours. INR 1.4, still subtherapeutic; continue warfarin dosing per pharmacy. Possible tracheostomy at some point. Critical care time 30 minutes reviewing charts, labs, examination, discussion with RN. 10/02/2020 No acute events overnight. Patient saturating 99% on vent settings of 10/450/40/5. Patient will likely need a trach and PEG at some point. We will hold warfarin and start 2 units PRBC transfusion. Patient's chart, labs, images were reviewed and discussed with RN A total of 32 minutes of critical care time was spent in reviewing chart, labs, and images. Discussed with RN and JENNIFER. 10/03/2020 No acute events overnight. Patient saturating 100% on minimal vent settings. No sedation at this point and patient is opening his eyes spontaneously. Not much response or spontaneous movements. Surgery has been consulted for tracheostomy. Patient will also likely need a PEG tube. Prognosis is very poor. Patient has a legal guardian and is signed by 2 physicians for authorization for that. We are currently making decisions for him and at least we had made him DNR. FOBT negative for bloody stools. Continue to trend hemoglobin and once stable will restart anticoagulation likely with heparin drip. Patient's chart, labs, images were reviewed and discussed with RN A total of 40 minutes of critical care time was spent in reviewing chart, labs, and images. Discussed with RN and JENNIFER. 10/04/2020 No acute events overnight. Patient saturating 90% on minimal vent settings. T- max 100.4 overnight. Plan for trach tomorrow with surgery. Patient's chart, labs, images were reviewed and discussed with RN Vitals/I&O Vitals/I&O: Vital Signs Date Time Temp Pulse Resp B/P (MAP) Pulse Ox O2 Delivery O2 Flow Rate FiO2 10/04/20 12:00 97.8 82 15 110/69 (83) 99 Ventilator 97.8 I & O 10/03/20 10/03/20 10/04/20 15:00 23:00 07:00 Intake Total 360 ml 1641 ml 300 ml Output Total 235 ml 480 ml 1125 ml Balance 125 ml 1161 ml -825 ml Physical Exam General: No acute distress Heart: Regular rate, Normal S1, Normal S2 Lungs: Other (Intubated) Abdomen: Soft Extremities: No clubbing, No edema, Normal pulses Skin: No rashes, No significant lesion Labs Labs: Laboratory Tests Test 10/03/20 18:09 10/04/20 00:09 10/04/20 05:41 10/04/20 06:00 Glucose (Fingerstick) 150 mg/dL (70-99) 149 mg/dL (70-99) 134 mg/dL (70-99) White Blood Count 5.5 x10^3/uL (4.0-11.0) Red Blood Count 2.78 x10^6/uL (4.30-5.70) Hemoglobin 8.9 g/dL (13.0-17.5) Hematocrit 26.6 % (39.0-53.0) Mean Corpuscular Volume 96 fL (79-100) Mean Corpuscular Hemoglobin 32 pg (25-35) Mean Corpuscular Hemoglobin Concent 33 g/dL (31-37) Red Cell Distribution Width 17.5 % (11.5-14.5) Platelet Count 224 x10^3/uL (140-400) Neutrophils (%) (Auto) 53 % (31-73) Lymphocytes (%) (Auto) 35 % (24-48) Monocytes (%) (Auto) 7 % (0-9) Eosinophils (%) (Auto) 5 % (0-3) Basophils (%) (Auto) 1 % (0-3) Neutrophils # (Auto) 2.9 x10^3/uL (1.8-7.7) Lymphocytes # (Auto) 1.9 x10^3/uL (1.0-4.8) Monocytes # (Auto) 0.4 x10^3/uL (0.0-1.1) Eosinophils # (Auto) 0.3 x10^3/uL (0.0-0.7) Basophils # (Auto) 0.0 x10^3/uL (0.0-0.2) Prothrombin Time 14.4 SEC (11.7-14.0) Prothromb Time International Ratio 1.1 (0.8-1.1) Sodium Level 142 mmol/L (136-145) Potassium Level 3.5 mmol/L (3.5-5.1) Chloride Level 108 mmol/L (98-107) Carbon Dioxide Level 29 mmol/L (21-32) Anion Gap 5 (6-14) Blood Urea Nitrogen 13 mg/dL (8-26) Creatinine 0.5 mg/dL (0.7-1.3) Estimated GFR (Cockcroft-Gault) 163.5 Glucose Level 138 mg/dL (70-99) Calcium Level 8.3 mg/dL (8.5-10.1) Magnesium Level 1.9 mg/dL (1.8-2.4) Test 10/04/20 12:24 Glucose (Fingerstick) 145 mg/dL (70-99) Assessment and Plan Assessmemt and Plan Problems Medical Problems: (1) NSTEMI (non-ST elevated myocardial infarction) Status: Acute (2) Obtundation Status: Acute (3) Respiratory arrest Status: Acute Comment Review of Relevant I have reviewed the following items denise (where applicable) has been applied. Justifications for Admission Other Justification Hypoglycemia and altered mental status. FUAD CUTLER MD Oct 04, 2020 12:49
--- NOTE | 2020-10-04 15:33 | NUR ---
SS following up with discharge planning. SS reviewed pt chart and discussed with pt RN. Pt is currently on the vent at 35%. COVID19 negative. Trach placement scheduled for tomorrow. Pt on IV Cefepime. Pt on Propofol. SS phoned and faxed referral to [facility], ; fax [phone]. SS will continue to follow for discharge planning.
[2020-10-05] VITALS (23 sets, daily range): BP systolic 102–163; BP diastolic 51–94
[2020-10-05] MEDS: IV DEXTROSE 5 %-0.45 % NACL 1,000 ML IV SCH ×2 (01:44→21:24)
[2020-10-05] MEDS: CEFEPIME HCL IV Push 2 GM VIAL. IVP SCH ×3 (05:59→21:23)
[2020-10-05] MEDS: PROPOFOL 100 ML IV PRN ×2 (05:59→11:07)
[2020-10-05] MEDS ORDERED: IV RINGERS,LACTATED 1000ML 1,000 ML IV SCH (06:00)
[2020-10-05] MEDS ORDERED: fentaNYL PF VIAL 100 MCG/2 ML VIAL IVP PRN ×2 (06:00)
[2020-10-05] MEDS ORDERED: MORPHINE SULFATE 2 MG/ML INJ. IVP PRN (06:00)
[2020-10-05] MEDS: INSULIN LISPRO 300 UNITS/3 ML VIAL. SQ SCH ×4 (06:00→18:00)
[2020-10-05] MEDS ORDERED: PROCHLORPERAZINE 10 MG/2 ML VIAL. IVP PRN (06:00)
[2020-10-05] MEDS ORDERED: HYDROmorphone 2 MG/ML VIAL IVP PRN (06:00)
[2020-10-05 06:31] LABS: CALCIUM 8.5 mg/dL (8.5-10.1); CREATININE 0.5 mg/dL (0.7-1.3); GFR 163.5; POTASSIUM 3.7 mmol/L (3.5-5.1)
[2020-10-05 07:12] LABS: PROTHROMBIN TIME PATIENT 14.1 SEC (11.7-14.0)
[2020-10-05] MEDS ORDERED: BUPIVACAINE-EPI 0.5%-1:200000 MPF 30 ML VIAL. ONE (07:12)
[2020-10-05] MEDS ORDERED: SURGICEL FIBRILLAR 1X2 EACH. ONE (07:12)
[2020-10-05 07:15] LABS: BASO % 1 % (0-3); EOS # 0.3 x10^3/uL (0.0-0.7); EOS % 5 % (0-3); HEMATOCRIT 28.8 % (39.0-53.0); HEMOGLOBIN 9.5 g/dL (13.0-17.5); LYMPH # 2.2 x10^3/uL (1.0-4.8); LYMPH % 39 % (24-48); MEAN CORPUSCULAR HEMOGLOBIN 32 pg (25-35); MEAN CORPUSCULAR HGB CONC 33 g/dL (31-37); MEAN CORPUSCULAR VOLUME 95 fL (79-100); MONO # 0.3 x10^3/uL (0.0-1.1); MONO % 6 % (0-9); NEUT # 2.8 x10^3/uL (1.8-7.7); NEUT % 49 % (31-73); PLATELET COUNT 244 x10^3/uL (140-400); RED BLOOD COUNT 3.02 x10^6/uL (4.30-5.70); RED CELL DISTRIBUTION WIDTH 17.9 % (11.5-14.5); WHITE BLOOD COUNT 5.6 x10^3/uL (4.0-11.0)
[2020-10-05] MEDS: CLOPIDOGREL BISULFATE 75 MG TABLET PO SCH (08:00)
[2020-10-05] MEDS: ASPIRIN CHEWABLE 81 MG TABLET. PO SCH (08:00)
[2020-10-05] MEDS ORDERED: ROCURONIUM 50 MG/5 ML VIAL. ONE ×2 (09:06→10:10)
--- NOTE | 2020-10-05 10:01 | PDOC ---
SURGICAL PROGRESS NOTE DATE: 10/05/20 TIME: 09:59 Subjective Pre-Op Note 70 yo F with respiratory failure TO OR for tracheostomy Consent is implied by benevolence and multiple physicians supporting, as no DPOA . Vital Signs Vital Signs Date Time Temp Pulse Resp B/P (MAP) Pulse Ox O2 Delivery O2 Flow Rate FiO2 10/05/20 09:15 99 Ventilator 10/05/20 07:00 87 18 137/73 (94) 10/05/20 04:00 99.3 99.3 I&O Intake and Output 10/05/20 07:00 Intake Total 2359 ml Output Total 1525 ml Balance 834 ml IV Total 731 ml Tube Feeding 1358 ml Other 270 ml Output Urine Total 1525 ml Labs Laboratory Tests Test 10/03/20 10:15 10/03/20 12:08 10/03/20 18:09 10/04/20 00:09 Stool Occult Blood Negative (NEG) Glucose (Fingerstick) 173 mg/dL (70-99) 150 mg/dL (70-99) 149 mg/dL (70-99) Test 10/04/20 05:41 10/04/20 06:00 10/04/20 12:24 10/04/20 17:59 Glucose (Fingerstick) 134 mg/dL (70-99) 145 mg/dL (70-99) 159 mg/dL (70-99) White Blood Count 5.5 x10^3/uL (4.0-11.0) Red Blood Count 2.78 x10^6/uL (4.30-5.70) Hemoglobin 8.9 g/dL (13.0-17.5) Hematocrit 26.6 % (39.0-53.0) Mean Corpuscular Volume 96 fL (79-100) Mean Corpuscular Hemoglobin 32 pg (25-35) Mean Corpuscular Hemoglobin Concent 33 g/dL (31-37) Red Cell Distribution Width 17.5 % (11.5-14.5) Platelet Count 224 x10^3/uL (140-400) Neutrophils (%) (Auto) 53 % (31-73) Lymphocytes (%) (Auto) 35 % (24-48) Monocytes (%) (Auto) 7 % (0-9) Eosinophils (%) (Auto) 5 % (0-3) Basophils (%) (Auto) 1 % (0-3) Neutrophils # (Auto) 2.9 x10^3/uL (1.8-7.7) Lymphocytes # (Auto) 1.9 x10^3/uL (1.0-4.8) Monocytes # (Auto) 0.4 x10^3/uL (0.0-1.1) Eosinophils # (Auto) 0.3 x10^3/uL (0.0-0.7) Basophils # (Auto) 0.0 x10^3/uL (0.0-0.2) Prothrombin Time 14.4 SEC (11.7-14.0) Prothromb Time International Ratio 1.1 (0.8-1.1) Sodium Level 142 mmol/L (136-145) Potassium Level 3.5 mmol/L (3.5-5.1) Chloride Level 108 mmol/L (98-107) Carbon Dioxide Level 29 mmol/L (21-32) Anion Gap 5 (6-14) Blood Urea Nitrogen 13 mg/dL (8-26) Creatinine 0.5 mg/dL (0.7-1.3) Estimated GFR (Cockcroft-Gault) 163.5 Glucose Level 138 mg/dL (70-99) Calcium Level 8.3 mg/dL (8.5-10.1) Magnesium Level 1.9 mg/dL (1.8-2.4) Test 10/05/20 00:11 10/05/20 05:50 10/05/20 05:54 Glucose (Fingerstick) 142 mg/dL (70-99) 111 mg/dL (70-99) White Blood Count 5.6 x10^3/uL (4.0-11.0) Red Blood Count 3.02 x10^6/uL (4.30-5.70) Hemoglobin 9.5 g/dL (13.0-17.5) Hematocrit 28.8 % (39.0-53.0) Mean Corpuscular Volume 95 fL (79-100) Mean Corpuscular Hemoglobin 32 pg (25-35) Mean Corpuscular Hemoglobin Concent 33 g/dL (31-37) Red Cell Distribution Width 17.9 % (11.5-14.5) Platelet Count 244 x10^3/uL (140-400) Neutrophils (%) (Auto) 49 % (31-73) Lymphocytes (%) (Auto) 39 % (24-48) Monocytes (%) (Auto) 6 % (0-9) Eosinophils (%) (Auto) 5 % (0-3) Basophils (%) (Auto) 1 % (0-3) Neutrophils # (Auto) 2.8 x10^3/uL (1.8-7.7) Lymphocytes # (Auto) 2.2 x10^3/uL (1.0-4.8) Monocytes # (Auto) 0.3 x10^3/uL (0.0-1.1) Eosinophils # (Auto) 0.3 x10^3/uL (0.0-0.7) Basophils # (Auto) 0.0 x10^3/uL (0.0-0.2) Prothrombin Time 14.1 SEC (11.7-14.0) Prothromb Time International Ratio 1.1 (0.8-1.1) Sodium Level 141 mmol/L (136-145) Potassium Level 3.7 mmol/L (3.5-5.1) Chloride Level 108 mmol/L (98-107) Carbon Dioxide Level 28 mmol/L (21-32) Anion Gap 5 (6-14) Blood Urea Nitrogen 13 mg/dL (8-26) Creatinine 0.5 mg/dL (0.7-1.3) Estimated GFR (Cockcroft-Gault) 163.5 Glucose Level 116 mg/dL (70-99) Calcium Level 8.5 mg/dL (8.5-10.1) Magnesium Level 1.9 mg/dL (1.8-2.4) Laboratory Tests Test 10/04/20 12:24 10/04/20 17:59 10/05/20 00:11 10/05/20 05:50 Glucose (Fingerstick) 145 mg/dL (70-99) 159 mg/dL (70-99) 142 mg/dL (70-99) White Blood Count 5.6 x10^3/uL (4.0-11.0) Red Blood Count 3.02 x10^6/uL (4.30-5.70) Hemoglobin 9.5 g/dL (13.0-17.5) Hematocrit 28.8 % (39.0-53.0) Mean Corpuscular Volume 95 fL (79-100) Mean Corpuscular Hemoglobin 32 pg (25-35) Mean Corpuscular Hemoglobin Concent 33 g/dL (31-37) Red Cell Distribution Width 17.9 % (11.5-14.5) Platelet Count 244 x10^3/uL (140-400) Neutrophils (%) (Auto) 49 % (31-73) Lymphocytes (%) (Auto) 39 % (24-48) Monocytes (%) (Auto) 6 % (0-9) Eosinophils (%) (Auto) 5 % (0-3) Basophils (%) (Auto) 1 % (0-3) Neutrophils # (Auto) 2.8 x10^3/uL (1.8-7.7) Lymphocytes # (Auto) 2.2 x10^3/uL (1.0-4.8) Monocytes # (Auto) 0.3 x10^3/uL (0.0-1.1) Eosinophils # (Auto) 0.3 x10^3/uL (0.0-0.7) Basophils # (Auto) 0.0 x10^3/uL (0.0-0.2) Prothrombin Time 14.1 SEC (11.7-14.0) Prothromb Time International Ratio 1.1 (0.8-1.1) Sodium Level 141 mmol/L (136-145) Potassium Level 3.7 mmol/L (3.5-5.1) Chloride Level 108 mmol/L (98-107) Carbon Dioxide Level 28 mmol/L (21-32) Anion Gap 5 (6-14) Blood Urea Nitrogen 13 mg/dL (8-26) Creatinine 0.5 mg/dL (0.7-1.3) Estimated GFR (Cockcroft-Gault) 163.5 Glucose Level 116 mg/dL (70-99) Calcium Level 8.5 mg/dL (8.5-10.1) Magnesium Level 1.9 mg/dL (1.8-2.4) Test 10/05/20 05:54 Glucose (Fingerstick) 111 mg/dL (70-99) Problem List Problems Medical Problems: (1) NSTEMI (non-ST elevated myocardial infarction) Status: Acute (2) Obtundation Status: Acute (3) Respiratory arrest Status: Acute Justicifation of Admission Dx: Justifications for Admission: Justification of Admission Dx: Yes CHF: Cardiac Arrhythmias SCAR BRO MD Oct 05, 2020 10:01
--- NOTE | 2020-10-05 10:34 | PDOC ---
PROGRESS NOTES Date of Service DATE: 10/05/20 TIME: 10:31 Assessment Problems Medical Problems: (1) NSTEMI (non-ST elevated myocardial infarction) Status: Acute (2) Obtundation Status: Acute (3) Respiratory arrest Status: Acute Found obtunded at [facility], unresponsive, hypoglycemic, no new stroke on MRI CODE BLUE on 09/26 Last admit had prolonged encephalopathy following the development of cardiogenic shock, STEMI, with negative EEG and CT head Remote history of seizures Last admit I felt there was a component of critical illness neuropathy/myopathy Respiratory failure Last admit and this admit: septic shock, leukocytosis, lactic acidosis, acute kidney injury, 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 EOMI. CN: no focal findings. Muscle tone: normal. Muscle strength: Slight spontaneous movements DTR: 1+ Plantar reflex: Silent Gait: not examined Sensory exam: Not testable Cerebellar: not testable Review of Relevant I have reviewed the following items denise (where applicable) has been applied. Labs Laboratory Tests Test 10/03/20 12:08 10/03/20 18:09 10/04/20 00:09 10/04/20 05:41 Glucose (Fingerstick) 173 mg/dL (70-99) 150 mg/dL (70-99) 149 mg/dL (70-99) 134 mg/dL (70-99) Test 10/04/20 06:00 10/04/20 12:24 10/04/20 17:59 10/05/20 00:11 White Blood Count 5.5 x10^3/uL (4.0-11.0) Red Blood Count 2.78 x10^6/uL (4.30-5.70) Hemoglobin 8.9 g/dL (13.0-17.5) Hematocrit 26.6 % (39.0-53.0) Mean Corpuscular Volume 96 fL (79-100) Mean Corpuscular Hemoglobin 32 pg (25-35) Mean Corpuscular Hemoglobin Concent 33 g/dL (31-37) Red Cell Distribution Width 17.5 % (11.5-14.5) Platelet Count 224 x10^3/uL (140-400) Neutrophils (%) (Auto) 53 % (31-73) Lymphocytes (%) (Auto) 35 % (24-48) Monocytes (%) (Auto) 7 % (0-9) Eosinophils (%) (Auto) 5 % (0-3) Basophils (%) (Auto) 1 % (0-3) Neutrophils # (Auto) 2.9 x10^3/uL (1.8-7.7) Lymphocytes # (Auto) 1.9 x10^3/uL (1.0-4.8) Monocytes # (Auto) 0.4 x10^3/uL (0.0-1.1) Eosinophils # (Auto) 0.3 x10^3/uL (0.0-0.7) Basophils # (Auto) 0.0 x10^3/uL (0.0-0.2) Prothrombin Time 14.4 SEC (11.7-14.0) Prothromb Time International Ratio 1.1 (0.8-1.1) Sodium Level 142 mmol/L (136-145) Potassium Level 3.5 mmol/L (3.5-5.1) Chloride Level 108 mmol/L (98-107) Carbon Dioxide Level 29 mmol/L (21-32) Anion Gap 5 (6-14) Blood Urea Nitrogen 13 mg/dL (8-26) Creatinine 0.5 mg/dL (0.7-1.3) Estimated GFR (Cockcroft-Gault) 163.5 Glucose Level 138 mg/dL (70-99) Calcium Level 8.3 mg/dL (8.5-10.1) Magnesium Level 1.9 mg/dL (1.8-2.4) Glucose (Fingerstick) 145 mg/dL (70-99) 159 mg/dL (70-99) 142 mg/dL (70-99) Test 10/05/20 05:50 10/05/20 05:54 White Blood Count 5.6 x10^3/uL (4.0-11.0) Red Blood Count 3.02 x10^6/uL (4.30-5.70) Hemoglobin 9.5 g/dL (13.0-17.5) Hematocrit 28.8 % (39.0-53.0) Mean Corpuscular Volume 95 fL (79-100) Mean Corpuscular Hemoglobin 32 pg (25-35) Mean Corpuscular Hemoglobin Concent 33 g/dL (31-37) Red Cell Distribution Width 17.9 % (11.5-14.5) Platelet Count 244 x10^3/uL (140-400) Neutrophils (%) (Auto) 49 % (31-73) Lymphocytes (%) (Auto) 39 % (24-48) Monocytes (%) (Auto) 6 % (0-9) Eosinophils (%) (Auto) 5 % (0-3) Basophils (%) (Auto) 1 % (0-3) Neutrophils # (Auto) 2.8 x10^3/uL (1.8-7.7) Lymphocytes # (Auto) 2.2 x10^3/uL (1.0-4.8) Monocytes # (Auto) 0.3 x10^3/uL (0.0-1.1) Eosinophils # (Auto) 0.3 x10^3/uL (0.0-0.7) Basophils # (Auto) 0.0 x10^3/uL (0.0-0.2) Prothrombin Time 14.1 SEC (11.7-14.0) Prothromb Time International Ratio 1.1 (0.8-1.1) Sodium Level 141 mmol/L (136-145) Potassium Level 3.7 mmol/L (3.5-5.1) Chloride Level 108 mmol/L (98-107) Carbon Dioxide Level 28 mmol/L (21-32) Anion Gap 5 (6-14) Blood Urea Nitrogen 13 mg/dL (8-26) Creatinine 0.5 mg/dL (0.7-1.3) Estimated GFR (Cockcroft-Gault) 163.5 Glucose Level 116 mg/dL (70-99) Calcium Level 8.5 mg/dL (8.5-10.1) Magnesium Level 1.9 mg/dL (1.8-2.4) Glucose (Fingerstick) 111 mg/dL (70-99) Laboratory Tests Test 10/04/20 12:24 10/04/20 17:59 10/05/20 00:11 10/05/20 05:50 Glucose (Fingerstick) 145 mg/dL (70-99) 159 mg/dL (70-99) 142 mg/dL (70-99) White Blood Count 5.6 x10^3/uL (4.0-11.0) Red Blood Count 3.02 x10^6/uL (4.30-5.70) Hemoglobin 9.5 g/dL (13.0-17.5) Hematocrit 28.8 % (39.0-53.0) Mean Corpuscular Volume 95 fL (79-100) Mean Corpuscular Hemoglobin 32 pg (25-35) Mean Corpuscular Hemoglobin Concent 33 g/dL (31-37) Red Cell Distribution Width 17.9 % (11.5-14.5) Platelet Count 244 x10^3/uL (140-400) Neutrophils (%) (Auto) 49 % (31-73) Lymphocytes (%) (Auto) 39 % (24-48) Monocytes (%) (Auto) 6 % (0-9) Eosinophils (%) (Auto) 5 % (0-3) Basophils (%) (Auto) 1 % (0-3) Neutrophils # (Auto) 2.8 x10^3/uL (1.8-7.7) Lymphocytes # (Auto) 2.2 x10^3/uL (1.0-4.8) Monocytes # (Auto) 0.3 x10^3/uL (0.0-1.1) Eosinophils # (Auto) 0.3 x10^3/uL (0.0-0.7) Basophils # (Auto) 0.0 x10^3/uL (0.0-0.2) Prothrombin Time 14.1 SEC (11.7-14.0) Prothromb Time International Ratio 1.1 (0.8-1.1) Sodium Level 141 mmol/L (136-145) Potassium Level 3.7 mmol/L (3.5-5.1) Chloride Level 108 mmol/L (98-107) Carbon Dioxide Level 28 mmol/L (21-32) Anion Gap 5 (6-14) Blood Urea Nitrogen 13 mg/dL (8-26) Creatinine 0.5 mg/dL (0.7-1.3) Estimated GFR (Cockcroft-Gault) 163.5 Glucose Level 116 mg/dL (70-99) Calcium Level 8.5 mg/dL (8.5-10.1) Magnesium Level 1.9 mg/dL (1.8-2.4) Test 10/05/20 05:54 Glucose (Fingerstick) 111 mg/dL (70-99) Medications Current Medications Fentanyl Citrate 30 ml @ 0 mls/hr CONT PRN IV SEE PROTOCOL; Start 09/22/20 at 09:45 Propofol 100 ml @ 0 mls/hr CONT PRN IV PER PROTOCOL Last administered on 09/22/20at 10:30; Start 09/22/20 at 09:45; Stop 09/26/20 at 20:12; Status DC Fentanyl Citrate (Fentanyl 2ml Vial) 25 mcg PRN Q1HR PRN IV SEE COMMENTS; Start 09/22/20 at 09:45 Fentanyl Citrate (Fentanyl 2ml Vial) 50 mcg PRN Q1HR PRN IV SEE COMMENTS Last administered on 10/03/20at 01:22; Start 09/22/20 at 09:45 Chlorhexidine Gluconate (Peridex) 15 ml BID MM ; Start 09/22/20 at 10:00; Stop 09/22/20 at 19:54; Status DC Midazolam HCl (Versed) 2 mg 1X ONCE IV ; Start 09/22/20 at 10:30; Stop 09/22/20 at 10:31; Status DC Iohexol (Omnipaque 300 Mg/ml) 75 ml 1X ONCE IV Last administered on 09/22/20at 11:06; Start 09/22/20 at 10:45; Stop 09/22/20 at 10:46; Status DC Info (CONTRAST GIVEN -- Rx MONITORING) 1 each PRN DAILY PRN MC SEE COMMENTS; Start 09/22/20 at 10:45; Stop 09/24/20 at 10:44; Status DC Potassium Chloride/Water 100 ml @ 100 mls/hr Q1H IV Last administered on 09/22/20at 20:27; Start 09/22/20 at 15:00; Stop 09/22/20 at 18:59; Status DC Cefepime HCl (Maxipime) 1 gm Q8HRS IVP Last administered on 09/29/20at 05:52; Start 09/22/20 at 14:00; Stop 09/29/20 at 10:32; Status DC Sennosides (Senna) 17.2 mg PRN BID PRN PO CONSTIPATION; Start 09/22/20 at 14:00 Docusate Sodium (Colace) 100 mg PRN DAILY PRN PO HARD STOOLS; Start 09/22/20 at 14:00; Stop 09/22/20 at 14:00; Status DC Ondansetron HCl (Zofran) 4 mg PRN Q6HRS PRN IVP NAUSEA/VOMITING, 1ST CHOICE; Start 09/22/20 at 14:00 Insulin Human Lispro (HumaLOG) 0-7 UNITS Q6HRS SQ Last administered on 10/04at 18:26; Start 09/22/20 at 18:00 Dextrose (Dextrose 50%-Water Syringe) 12.5 gm PRN Q15MIN PRN IV SEE COMMENTS Last administered on 09/22/20at 17:47; Start 09/22/20 at 14:00 Dextrose/Sodium Chloride 1,000 ml @ 50 mls/hr Q20H IV Last administered on at 01:44; Start 09/22/20 at 14:00 Acetaminophen (Tylenol) 650 mg PRN Q4HRS PRN PO TEMP OVER 100.4F OR MILD PAIN Last administered on 09/23/20at 00:20; Start 09/22/20 at 14:00; Stop 09/23/20 at 16:24; Status DC Enoxaparin Sodium (Lovenox 40mg Syringe) 40 mg Q24H SQ ; Start 09/22/20 at 14:00; Status UNV Pantoprazole Sodium (PROTONIX VIAL for IV PUSH) 40 mg DAILY IVP Last admi nistered on 10/04/20at 08:54; Start 09/23/20 at 09:00 Prochlorperazine Edisylate (Compazine) 10 mg PRN Q6HRS PRN IV NAUSEA/VOMITING, 2ND CHOICE; Start 09/22/20 at 14:00 Etomidate (Amidate) 20 mg STK-MED ONCE IV ; Start 09/22/20 at 17:46; Stop 09/22/20 at 17:46; Status DC Rocuronium Ohlman (Zemuron) 50 mg STK-MED ONCE .ROUTE ; Start 09/22/20 at 17:46; Stop 09/22/20 at 17:47; Status DC Norepinephrine Bitartrate 8 mg/ Dextrose 258 ml @ 21.769 mls/ hr CONT PRN IV PER PROTOCOL Last administered on 09/24/20at 13:20; Start 09/22/20 at 18:15 Potassium Chloride/Water 100 ml @ 100 mls/hr Q1H IV Last administered on 09/23/20at 14:30; Start 09/23/20 at 07:00; Stop 09/23/20 at 14:59; Status DC Acetaminophen (Tylenol) 650 mg PRN Q6HRS PRN PEG MILD PAIN / TEMP > 100.3'F Last administered on 09/23/20at 16:34; Start 09/23/20 at 16:30 Warfarin Sodium (Coumadin Per Pharmacy) 1 each PRN DAILY PRN MC SEE COMMENTS Last administered on 10/01/20at 12:32; Start 09/24/20 at 12:30; Stop 10/02/20 at 05:55; Status DC Warfarin Sodium (Coumadin) 5 mg 1X WARF ONCE PO Last administered on 09/24/20at 17:42; Start 09/24/20 at 16:00; Stop 09/24/20 at 16:01; Status DC Warfarin Sodium (Coumadin - No Dose Today) 1 each 1X WARF ONCE MC ; Start 09/25/20 at 16:00; Stop 09/25/20 at 16:01; Status DC Warfarin Sodium (Coumadin) 1 mg 1X WARF ONCE PO Last administered on 09/26/20at 16:00; Start 09/26/20 at 16:00; Stop 09/26/20 at 16:01; Status DC Propofol 100 ml @ 3.174 mls/ hr CONT PRN IV PER PROTOCOL Last administered on 10/05/20at 05:59; Start 09/26/20 at 20:15 Atropine Sulfate (ATROPINE 1mg SYRINGE) 1 mg STK-MED ONCE .ROUTE ; Start 09/25/20 at 10:00; Stop 09/27/20 at 08:20; Status DC Epinephrine HCl (EPINEPHrine SYRINGE) 1 mg STK-MED ONCE .ROUTE ; Start 09/25/20 at 10:00; Stop 09/27/20 at 08:20; Status DC Warfarin Sodium (Coumadin) 2 mg 1X WARF ONCE PO Last administered on 09/27/20at 17:53; Start 09/27/20 at 16:00; Stop 09/27/20 at 16:01; Status DC Aspirin (Aspirin Chewable) 81 mg DAILYWBKFT PO Last administered on 10/04/20at 08:55; Start 09/27/20 at 09:30 Clopidogrel Bisulfate (Plavix) 75 mg DAILYWBKFT PO Last administered on 10/04/20at 08:55; Start 09/27/20 at 09:30 Potassium Chloride/Water 100 ml @ 100 mls/hr Q1H IV Last administered on 09/27/20at 12:45; Start 09/27/20 at 11:30; Stop 09/27/20 at 13:29; Status DC Warfarin Sodium (Coumadin) 3 mg 1X WARF ONCE PO Last administered on 09/28/20at 18:18; Start 09/28/20 at 16:00; Stop 09/28/20 at 16:01; Status DC Cefepime HCl (Maxipime) 2 gm Q8HRS IVP Last administered on 10/05/20at 05:59; Start 09/29/20 at 14:00 Warfarin Sodium (Coumadin) 3 mg 1X WARF ONCE PO Last administered on 09/29/20at 16:55; Start 09/29/20 at 16:00; Stop 09/29/20 at 16:01; Status DC Warfarin Sodium (Coumadin) 3 mg 1X WARF ONCE PO Last administered on 09/30/20at 16:00; Start 09/30/20 at 16:00; Stop 09/30/20 at 16:01; Status DC Warfarin Sodium (Coumadin) 5 mg 1X WARF ONCE PO Last administered on 10/01/20at 16:35; Start 10/01/20 at 16:00; Stop 10/01/20 at 16:01; Status DC Multi-Ingred Cream/Lotion/Oil/ Oint (Artificial Tears Eye Ointment) 1 sudheer PRN Q1HR PRN OU DRY EYE Last administered on 10/03/20at 12:24; Start 10/02/20 at 12:45 Fentanyl Citrate (Fentanyl 2ml Vial) 25 mcg PRN Q5MIN PRN IVP MILD PAIN 1-3; Start 10/05/20 at 06:00; Stop 10/06/20 at 05:59 Fentanyl Citrate (Fentanyl 2ml Vial) 50 mcg PRN Q5MIN PRN IVP MODERATE PAIN 4- 6; Start 10/05/20 at 06:00; Stop 10/06/20 at 05:59 Morphine Sulfate (Morphine Sulfate) 1 mg PRN Q10MIN PRN IVP SEVERE PAIN 7-10; Start 10/05/20 at 06:00; Stop 10/06/20 at 05:59; Status UNV Ringer's Solution 1,000 ml @ 30 mls/hr Q24H IV ; Start 10/05/20 at 06:00; Stop 10/05/20 at 17:59 Hydromorphone HCl (Dilaudid) 0.5 mg PRN Q10MIN PRN IVP SEVERE PAIN 7-10, 2nd CHOICE; Start 10/05/20 at 06:00; Stop 10/06/20 at 05:59; Status UNV Prochlorperazine Edisylate (Compazine) 5 mg PACU PRN PRN IVP NAUSEA, MRX1; Start 10/05/20 at 06:00; Stop 10/06/20 at 05:59 Bupivacaine HCl/ Epinephrine Bitart (Sensorcain-Epi 0.5%-1:132868 Mpf) 30 ml STK-MED ONCE .ROUTE Last administered on 10/05/20at 10:09; Start 10/05/20 at 07:12; Stop 10/05/20 at 07:12; Status DC Cellulose (Surgicel Fibrillar 1x2) 1 each STK-MED ONCE .ROUTE ; Start 10/05/20 at 07:12; Stop 10/05/20 at 07:12; Status DC Rocuronium Ohlman (Zemuron) 50 mg STK-MED ONCE .ROUTE ; Start 10/05/20 at 09:0 6; Stop 10/05/20 at 09:06; Status DC Rocuronium Ohlman (Zemuron) 50 mg STK-MED ONCE .ROUTE ; Start 10/05/20 at 10:10; Stop 10/05/20 at 10:10; Status DC Active Scripts Active Amiodarone Hcl 200 Mg Tablet 400 Mg PO DAILY 90 Days [Warfarin Per Pharmacy] 1 EACH Each 1 Each MC PRN DAILY PRN 30 Days Clopidogrel (Clopidogrel Bisulfate) 75 Mg Tablet 75 Mg PO DAILYWBKFT 90 Days Humalog (Insulin Lispro) 100 Unit/1 Ml Insuln.pen 0 Units SQ TIDWMEALS 30 Days Duoneb 0.5-3(2.5) Mg/3 Ml (Albuterol/Ipratropium) 3 Ml Ampul.neb 3 Ml NEB RTQID 30 Days Aspirin 325 Mg Tablet 325 Mg PO DAILYWBKFT 30 Days Metoprolol Tartrate 25 Mg Tablet 25 Mg PO BID 30 Days Montelukast Sodium Tablet (Montelukast Sodium) 10 Mg Tablet 10 Mg PO QHS Gabapentin 600 Mg Tablet 600 Mg PO BID 30 Days Reported Glimepiride 4 Mg Tablet 1 Tab PO DAILY Furosemide 40 Mg Tablet 1 Tab PO BID Symbicort 160-4.5 Mcg Inhaler (Budesonide/Formoterol Fumarate) 10.2 Gm Hfa.aer.ad 1 Puff INH DAILY Losartan-Hctz 100-12.5 Mg Tab (Losartan/Hydrochlorothiazide) 1 Each Tablet 1 Tab PO DAILY Nitrofurantoin [place]-Mcr 100 Mg (Nitrofurantoin Monohyd/M-Cryst) 100 Mg Capsule 1 Cap PO BID Betamethasone Valerate 60 Ml Lotion 1 TP QHS Atorvastatin Calcium 40 Mg Tablet 1 Tab PO DAILY Diltiazem 24Hr Cd (Diltiazem HCl) 240 Mg Cap.er.24h 1 Cap PO DAILY Nystop (Nystatin) 60 Gm Powder 1 Sudheer TP BID Pepcid (Famotidine) 20 Mg Tablet 20 Mg PO BID Vitals/I & O Vital Sign - Last 24 Hours 10/04/20 10/04/20 10/04/20 10/04/20 11:00 11:36 12:00 12:00 Temp 97.8 97.8 Pulse 87 82 Resp 20 15 B/P (MAP) 118/74 (89) 110/69 (83) Pulse Ox 99 100 99 O2 Delivery Ventilator Ventilator Mechanical Ventilator Ventilator 8/25/21 8/25/21 8/25/21 8/25/21 13:00 13:29 14:00 15:00 Pulse 82 83 79 Resp 10 16 16 B/P (MAP) 102/62 (75) 119/73 (88) 118/67 (84) Pulse Ox 99 100 99 99 O2 Delivery Ventilator Ventilator Ventilator Ventilator 10/04/20 10/04/20 10/04/20 10/04/20 15:41 16:00 16:00 17:00 Temp 98.7 98.7 Pulse 78 77 Resp 17 14 B/P (MAP) 133/88 (103) 152/98 (116) Pulse Ox 100 99 100 O2 Delivery Ventilator Mechanical Ventilator Ventilator Ventilator 10/04/20 10/04/20 10/04/20 10/04/20 18:00 18:12 18:26 19:00 Pulse 87 80 Resp 18 13 B/P (MAP) 163/95 (117) 142/83 (102) Pulse Ox 100 100 100 100 O2 Delivery Ventilator Ventilator Ventilator Ventilator 10/04/20 10/04/20 10/04/20 10/04/20 20:00 20:00 20:37 21:00 Temp 98.1 98.1 Pulse 81 74 Resp 13 13 B/P (MAP) 163/83 (109) 131/80 (97) Pulse Ox 99 99 99 O2 Delivery Mechanical Ventilator Ventilator Ventilator Ventilator 10/04/20 10/04/20 10/04/20 10/04/20 22:00 22:52 23:00 23:59 Pulse 81 83 Resp 13 13 B/P (MAP) 144/79 (100) 135/55 (81) Pulse Ox 99 98 99 O2 Delivery Ventilator Ventilator Ventilator Mechanical Ventilator 10/05/20 10/05/20 10/05/20 10/05/20 00:01 00:22 01:00 02:00 Temp 99.3 99.3 Pulse 83 69 85 Resp 13 15 13 B/P (MAP) 131/80 (97) 107/51 (69) 140/51 (80) Pulse Ox 99 99 98 99 O2 Delivery Ventilator Ventilator Ventilator Ventilator 10/05/20 10/05/20 10/05/20 10/05/20 03:00 03:00 04:00 04:00 Temp 99.3 99.3 Pulse 87 85 Resp 13 13 B/P (MAP) 140/79 (99) 148/84 (105) Pulse Ox 99 99 99 O2 Delivery Ventilator Ventilator Mechanical Ventilator Ventilator 10/05/20 10/05/20 10/05/20 10/05/20 05:00 05:42 06:00 07:00 Pulse 85 87 87 Resp 12 13 18 B/P (MAP) 148/87 (107) 150/84 (106) 137/73 (94) Pulse Ox 99 99 99 100 O2 Delivery Ventilator Ventilator Ventilator Ventilator 10/05/20 10/05/20 10/05/20 07:20 08:00 09:15 Pulse Ox 100 99 O2 Delivery Ventilator Mechanical Ventilator Ventilator Intake and Output 10/04/20 10/04/20 10/05/20 15:00 23:00 07:00 Intake Total 300 ml 1209 ml 850 ml Output Total 950 ml 365 ml 210 ml Balance -650 ml 844 ml 640 ml Justicifation of Admission Dx: Justifications for Admission: Justification of Admission Dx: Yes CHF: Cardiac Arrhythmias RAFAEL REINOSO MD Oct 05, 2020 10:34
--- NOTE | 2020-10-05 10:45 | PDOC4 ---
OPERATIVE NOTE Date: Date: Oct 05, 2020 Pre-Op Diagnosis: Respiratory failure Post-Op Diagnosis: same Procedure Performed: Tracheostomy (specifically 8 XLT cuffed) Surgeon: John Bro Anesthesia Type: GETA plus local Blood Loss: 10 Specimans Obtained: none Findings: morbid obesity, making procedure difficult, normal anatomy Complications: none Operative Note: Patient was taken to OR, induced under GETA and prepped in the usual fashion. Vertical incision made with cautery. Trachea identified. 3 0 PDS placed in first tracheal ring and secured to left neck with steristrips. 2nd tracheal ring opened with 15 blade, creating "trap door". Et tube identified and pulled back. Tracheostomy advanced under direct vision and balloon inflated. End tidal C02 detected and patient was successfully oxygenated and ventilated. Tracheostomy secured with 3 0 nylon and collar. Surgicel placed around tracheostomy. Patient tolerated procedure well and sent to PACU in stable condition. All co unts correct. Wound class is 4. SCAR BRO MD Oct 05, 2020 10:45
--- NOTE | 2020-10-05 12:30 | RAD ---
EXAM: Abdomen, single view. HISTORY: Dobbhoff placement. COMPARISON: 09/22/2020 FINDINGS: A frontal view of the abdomen is obtained. There is a Dobbhoff catheter with the tip in the proximal stomach. There is a moderate left pleural effusion with lower lobe infiltrate. There is par tial visualization of a central venous catheter with the tip overlying expected location of the super ior cavoatrial junction. There are nonspecific air-filled loops of bowel within the abdomen. IMPRESSION: 1. Enteric catheter within the proximal stomach. 2. Moderate left pleural effusion and left lower lobe infiltrate. 3. Nonspecific bowel gas pattern. Electronically signed by: Graciela Buckley MD (10/05/2020 12:27 PM) [id number]
--- NOTE | 2020-10-05 13:30 | PDOC ---
[employer] PROGRESS NOTE Date of Service DOS: DATE: 10/05/20 TIME: 13:27 Chief Complaint Chief Complaint Acute anemia, likely due to acute blood loss due to multiple lab draws and multiple comorbidities. Acute metabolic, infectious encephalopathy Acute respiratory failure Healthcare associated pneumonia, possible aspiration, possible gram-negative organisms, possibly gram-positive organism Acute hypoglycemia Hypokalemia Elevated troponins concerning for type II demand ischemia Severe protein malnutrition Morbid obesity AAA, 4 cm History of diabetes mellitus type 2 History of dyslipidemia history of hypertension History of recent STEMI History of CAD with recent stent placement Pending 2 unit PRBC transfusion. Hypoglycemia protocol Continue empiric IV antibiotics with concern for aspiration pneumonia Pulmonology consult for vent management IV electrolyte replacement as needed Consider cardiology consult if troponins increase Lovenox for DVT prophylaxis Protonix while on the vent GI prophylaxis N.p.o. Full code Discussed with RN and SW Disposition inpatient management as above Surrogate decision maker is undesignated History of Present Illness History of Present Illness Patient is a 70-year-old male with a recent prolonged hospitalization for STEMI and respiratory failure for which she was treated with arterial thrombolysis for a right leg popliteal artery aneurysm and also had left heart cath with placement of a stent in the LAD and RCA comes in today after he was found obtunded at his [facility] facility. Apparently according to the nursing facility patient was in his usual state of health and he was conversational but then became altered. His blood glucose was found to be in the 30s. Glucose tabs and glucagon was given in route and his GCS reported at 6. Upon arrival patient's mental status did not improve and he was eventually intubated for airway protection. Of note EMS was bagging the patient through the nasal access. In the ED, patient was placed on a vent and pulmonology was consulted. Patient was also taken to the CT scanner for sanders scanning. Patient was started to wake up on the vent and sedation was ordered. 09/23/20 Patient examined at bedside. Intubated. Not on any sedation but unresponsive. Neurology consult in place. 09/24/20 Patient seen and examined at bedside. Remains intubated he is off sedation but still remains unresponsive. Planning for MRI brain in the morning. Further plan to be determined by MRI. 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 Plan of care discussed with bedside RN 09/25/20: Afebrile, currently breathing on ventilator with FiO2 50%, PEEP 5. Had CODE BLUE in ICU this morning; received 2 rounds of CPR, epinephrine, and atropine with ROSC. I believe MRI will be obtained today, per neurology. I had discussion with Dr. Rubalcava about his very poor prognosis due to multifactorial comorbidities. In our opinion continuing with present aggressive care would be futile. I would recommend that he should be made DNR, and after discussion with Dr. Rubalcava he agrees. Since there is no family and no one to discuss goals of care, we agreed to make patient DNR. Critical care time 30 minutes spent reviewing charts, reviewing labs, imaging, discussion with RN. 09/26/2020: Afebrile. Still on vent, with FiO2 45%, PEEP 5. After discussion with Dr. Rubalcava yesterday, patient was made DNR. In the ED is likely a poor candidate for weaning trials may need trach in near future if no significant improvement. MRI with no acute findings. Continue with pressure support and IV antibiotics. Critical care time 30 minutes reviewing charts, labs, examination, discussion with RN. 09/27/2020: Afebrile. On vent with FiO2 40%, PEEP 5. Potassium 2.8 today, will replace. Warfarin has been resumed. Discussed with pharmacy, will resume aspi rin and Plavix. May need tracheostomy by the end of the week if no improvement in mental status. Chest x-ray today showed improving interstitial prominence, persistent left basilar opacities. Continue IV cefepime and supportive care. Critical care time 30 minutes reviewing charts, labs, examination, discussion with RN. 09/28/2020: Afebrile. On ventilator with FiO2 40%, PEEP 5. Warfarin has been resumed; INR 1.3 today. Some morning labs still pending; hemoglobin yesterday 7.3, will continue to monitor. May need tracheostomy at some point if no improvement in mental status. Continue IV cefepime and supportive care. Critical care time 30 minutes reviewing charts, labs, examination, discussion with RN. 09/29/2020: Afebrile. Breathing on vent with FiO2 40%, PEEP 5. INR 1.2 today; pharmacy to help with warfarin dosing. White count within normal range, renal function stable. Spoke with pharmacy about cefepime 1 g every 8 hours dosing; this has been changed to cefepime 2 g every 8 hours. Possible tracheostomy at some point. Critical care time 30 minutes reviewing charts, labs, examination, discussion with RN. 09/30/20: Afebrile. Currently breathing on vent with FiO2 40%, PEEP 5. Continue antibiotics, cefepime 2 g every 8 hours. INR 1.4; continue warfarin dosing per pharmacy. Possible tracheostomy at some point. Critical care time 30 minutes reviewing charts, labs, examination, discussion with RN. 10/01/2020: Febrile overnight with T-max 100.3 F. On ventilator with FiO2 40%, PEEP 5. Continue antibiotics, cefepime 2 g every 8 hours. INR 1.4, still subtherapeutic; continue warfarin dosing per pharmacy. Possible tracheostomy at some point. Critical care time 30 minutes reviewing charts, labs, examination, discussion with RN. 10/02/2020 No acute events overnight. Patient saturating 99% on vent settings of 10/450/40/5. Patient will likely need a trach and PEG at some point. We will hold warfarin and start 2 units PRBC transfusion. Patient's chart, labs, images were reviewed and discussed with RN A total of 32 minutes of critical care time was spent in reviewing chart, labs, and images. Discussed with RN and SW. 10/03/2020 No acute events overnight. Patient saturating 100% on minimal vent settings. No sedation at this point and patient is opening his eyes spontaneously. Not much response or spontaneous movements. Surgery has been consulted for tracheostomy. Patient will also likely need a PEG tube. Prognosis is very poor. Patient has a legal guardian and is signed by 2 physicians for authorization for that. We are currently making decisions for him and at least we had made him DNR. FOBT negative for bloody stools. Continue to trend hemoglobin and once stable will restart anticoagulation likely with heparin drip. Patient's chart, labs, images were reviewed and discussed with RN A total of 40 minutes of critical care time was spent in reviewing chart, labs, and images. Discussed with RN and SW. 10/04/2020 No acute events overnight. Patient saturating 90% on minimal vent settings. T- max 100.4 overnight. Plan for trach tomorrow with surgery. Patient's chart, labs, images were reviewed and discussed with RN 10/05/2020 No acute events overnight. Patient saturating 99% on minimal vent settings. Plan for tracheostomy today. Consent is provided by authorization by 2 physicians due to patient having no close relatives or DPOA. Will resume heparin and warfarin bridging tomorrow after tracheostomy completed. Patient's chart, labs, images were reviewed and discussed with RN A total of 35 minutes of critical care time was spent in reviewing chart, labs, and images. Discussed with RN and SW. Vitals/I&O Vitals/I&O: Vital Signs Date Time Temp Pulse Resp B/P (MAP) Pulse Ox O2 Delivery O2 Flow Rate FiO2 10/05/20 12:00 Mechanical Ventilator 10/05/20 12:00 98.3 90 16 125/78 (94) 99 98.3 I & O 10/04/20 10/04/20 10/05/20 15:00 23:00 07:00 Intake Total 300 ml 1209 ml 850 ml Output Total 950 ml 365 ml 210 ml Balance -650 ml 844 ml 640 ml Physical Exam General: No acute distress Heart: Regular rate, Normal S1, Normal S2 Lungs: Other (Intubated) Abdomen: Soft Extremities: No clubbing, No edema, Normal pulses Skin: No rashes, No significant lesion Labs Labs: Laboratory Tests Test 10/04/20 17:59 10/05/20 00:11 10/05/20 05:50 10/05/20 05:54 Glucose (Fingerstick) 159 mg/dL (70-99) 142 mg/dL (70-99) 111 mg/dL (70-99) White Blood Count 5.6 x10^3/uL (4.0-11.0) Red Blood Count 3.02 x10^6/uL (4.30-5.70) Hemoglobin 9.5 g/dL (13.0-17.5) Hematocrit 28.8 % (39.0-53.0) Mean Corpuscular Volume 95 fL (79-100) Mean Corpuscular Hemoglobin 32 pg (25-35) Mean Corpuscular Hemoglobin Concent 33 g/dL (31-37) Red Cell Distribution Width 17.9 % (11.5-14.5) Platelet Count 244 x10^3/uL (140-400) Neutrophils (%) (Auto) 49 % (31-73) Lymphocytes (%) (Auto) 39 % (24-48) Monocytes (%) (Auto) 6 % (0-9) Eosinophils (%) (Auto) 5 % (0-3) Basophils (%) (Auto) 1 % (0-3) Neutrophils # (Auto) 2.8 x10^3/uL (1.8-7.7) Lymphocytes # (Auto) 2.2 x10^3/uL (1.0-4.8) Monocytes # (Auto) 0.3 x10^3/uL (0.0-1.1) Eosinophils # (Auto) 0.3 x10^3/uL (0.0-0.7) Basophils # (Auto) 0.0 x10^3/uL (0.0-0.2) Prothrombin Time 14.1 SEC (11.7-14.0) Prothromb Time International Ratio 1.1 (0.8-1.1) Sodium Level 141 mmol/L (136-145) Potassium Level 3.7 mmol/L (3.5-5.1) Chloride Level 108 mmol/L (98-107) Carbon Dioxide Level 28 mmol/L (21-32) Anion Gap 5 (6-14) Blood Urea Nitrogen 13 mg/dL (8-26) Creatinine 0.5 mg/dL (0.7-1.3) Estimated GFR (Cockcroft-Gault) 163.5 Glucose Level 116 mg/dL (70-99) Calcium Level 8.5 mg/dL (8.5-10.1) Magnesium Level 1.9 mg/dL (1.8-2.4) Assessment and Plan Assessmemt and Plan Problems Medical Problems: (1) NSTEMI (non-ST elevated myocardial infarction) Status: Acute (2) Obtundation Status: Acute (3) Respiratory arrest Status: Acute Comment Review of Relevant I have reviewed the following items denise (where applicable) has been applied. Medications: Current Medications Medications (Trade) Dose Ordered Sig/Dru Route PRN Reason Start Time Stop Time Status Last Admin Dose Admin Bupivacaine HCl/ Epinephrine Bitart (Sensorcain-Epi 0.5%-1:947523 Mpf) 30 ml STK-MED ONCE .ROUTE 10/05/20 07:12 10/05/20 07:12 DC 10/05/20 10:09 Cellulose (Surgicel Fibrillar 1x2) 1 each STK-MED ONCE .ROUTE 10/05/20 07:12 10/05/20 07:12 DC 10/05/20 10:30 Justifications for Admission Other Justification Hypoglycemia and altered mental status. FUAD CUTLER MD Oct 05, 2020 13:30
--- NOTE | 2020-10-05 13:52 | RAD ---
Single view of the upper abdomen 10/05/2020 INDICATION: Dobbhoff placement Discussion: There is a weighted feeding tube with tip projecting over the expected region of the prox imal stomach. This is similar to comparison radiograph from earlier same day. No gross bowel obstruct ion is identified radiographically probable left pleural effusion again noted. IMPRESSION: Weighted feeding tube projects over the expected region of the proximal stomach Electronically signed by: Evans Jarrell MD (10/05/2020 1:49 PM) [id number]
[2020-10-05] MEDS ORDERED: ARGATROBAN 50 MG in IV NORMAL SALINE 50ML 50 ML IV PRN (14:00)
--- NOTE | 2020-10-05 14:05 | NUR ---
Pharmacy Warfarin Dosing Note S: Pharmacy consulted to assist with anticoagulation therapy O: DEMETRICE HOWE is a 70 year old M with HIT treatment LABS: Last INR: 1.1 Last HGB: 9.5 Last HCT: 28.8 Last PLT: 244 Last dose of 3 mg given on 09/30/20 at 1655 Vitamin K given: N A:INR of 1.1 is below desired range. Target range for this patient is: 2 - 3 P: Warfarin dose: 5 mg Today at 1600 Bridge Therapy: Argatroban drip Next INR due 10/06/20 Pharmacy anticoagulation service will continue to follow. HERBERT PAYNE [facility], 10/05/20 [id number]
--- NOTE | 2020-10-05 14:36 | NUR ---
SS following up with discharge planning. SS reviewed pt chart and discussed with pt RN. Pt is currently on the vent at 35%. COVID19 negative. Pt had trach placement today. Pt on IV Cefepime. Pt on Propofol. Pt accepted at , ; fax [phone], pending insurance authorization. [facility] has 21/7 rule. Pt will meet 21/7 guidelines on 10/12/2020. SS will continue to follow for discharge planning.
[2020-10-05] MEDS: PANTOPRAZOLE IV PUSH 40 MG VIAL. IVP SCH (15:01)
[2020-10-05] MEDS ORDERED: WARFARIN 5 MG TABLET. PO ONE (16:00)
[2020-10-06] VITALS (23 sets, daily range): BP systolic 111–154; BP diastolic 69–96
[2020-10-06] MEDS ORDERED: ARGATROBAN 50 MG in IV NORMAL SALINE 50ML 50 ML IV PRN
[2020-10-06] MEDS: PROPOFOL 100 ML IV PRN ×3 (01:35→22:44)
[2020-10-06] MEDS: INSULIN LISPRO 300 UNITS/3 ML VIAL. SQ SCH ×4 (06:00→18:00)
[2020-10-06 06:07] LABS: PROTHROMBIN TIME PATIENT 14.5 SEC (11.7-14.0)
[2020-10-06] MEDS: CEFEPIME HCL IV Push 2 GM VIAL. IVP SCH ×3 (06:25→22:44)
[2020-10-06 08:06] LABS: BASO % 1 % (0-3); EOS # 0.3 x10^3/uL (0.0-0.7); EOS % 5 % (0-3); HEMATOCRIT 26.9 % (39.0-53.0); HEMOGLOBIN 8.9 g/dL (13.0-17.5); LYMPH # 1.8 x10^3/uL (1.0-4.8); LYMPH % 36 % (24-48); MEAN CORPUSCULAR HEMOGLOBIN 32 pg (25-35); MEAN CORPUSCULAR HGB CONC 33 g/dL (31-37); MEAN CORPUSCULAR VOLUME 96 fL (79-100); MONO # 0.4 x10^3/uL (0.0-1.1); MONO % 7 % (0-9); NEUT # 2.5 x10^3/uL (1.8-7.7); NEUT % 51 % (31-73); PLATELET COUNT 233 x10^3/uL (140-400); RED BLOOD COUNT 2.81 x10^6/uL (4.30-5.70); RED CELL DISTRIBUTION WIDTH 17.6 % (11.5-14.5); WHITE BLOOD COUNT 4.9 x10^3/uL (4.0-11.0)
[2020-10-06 08:07] LABS: ALBUMIN 1.4 g/dL (3.4-5.0); ALBUMIN/GLOBULIN RATIO 0.4 (1.0-1.7); CALCIUM 8.1 mg/dL (8.5-10.1); CREATININE 0.5 mg/dL (0.7-1.3); GFR 163.5; MAGNESIUM 1.8 mg/dL (1.8-2.4); PHOSPHORUS 2.3 mg/dL (2.6-4.7); POTASSIUM 3.5 mmol/L (3.5-5.1); TOTAL BILIRUBIN 0.5 mg/dL (0.2-1.0); TOTAL PROTEIN 5.4 g/dL (6.4-8.2)
[2020-10-06] MEDS: ARGATROBAN 50 MG in IV NORMAL SALINE 50ML 50 ML IV PRN ×2 (09:16→15:59)
--- NOTE | 2020-10-06 09:32 | NUR ---
Pharmacy Warfarin Dosing Note S:Pharmacy consulted to assist with anticoagulation therapy started with target INR: 2 -3 O:DEMETRICE HOWE is a 70 year old M with Atrial Fibrillation; DVT/PE; HIT LABS: Last INR: 1.1 Last HGB: 8.9 Last HCT: 26.9 Last PLT: 233 Last dose of 5 mg given on 10/05/20 at 2123 Vitamin K given: N A:INR of 1.1 is below desired range. Target range for this patient is: 2 -3 P: Warfarin dose: 5 mg Today at 1600 Bridge Therapy: Argatroban - Therapeutic Next INR due 10/07/20 Pharmacy anticoagulation service will continue to follow. NICK JONES [facility], 10/06/20 [id number]
--- NOTE | 2020-10-06 09:51 | PDOC2 ---
BENNY JOE POWDER NIPPER 10/06/20 0951: CARDIAC CONSULT DATE OF CONSULT Date of Consult DATE: 10/06/20 TIME: 09:22 REASON FOR CONSULT Reason for Consult: Cardiomyopathy REFERRING PHYSICIAN Referring Physician: Jose SOURCE Source: Chart review HISTORY OF PRESENT ILLNESS HISTORY OF PRESENT ILLNESS This is a 70 yo male admitted from SNU due to altered level of consciousness. He was noted initially to be hypoglycemic but his respiratory status declined and end up getting intubated with mechanical vent. No significant arrhythmia invloving this event. He is significant for recent AZ and had PCI and also nota ble for recent right popliteal artery thrombosis and occlusion of the below-knee vessels and had thrombolysis. He does have a large popliteal aneurysm which he still need future repair. His cardiovascular hx is extensive including hx of PAFIB as well as CVA. He is currently in SR and he remains in sedation. His coumadin was held due to anemia. He is significant for HIT. NO obvious bleed and needing to resume argatroban for bridging till INR is at therapeutic level. . PAST MEDICAL HISTORY Cardiovascular: AFIB, CAD, CHF, HTN, AZ, Hyperlipidemia, Other (ICM; AAA; Right popliteal artery aneurysm/thrombosis s/p thrombolysis) Pulmonary: COPD, Other (acute repiratory failure) CENTRAL NERVOUS SYSTEM: CVA, Other (encephalopathy) GI: Other (dysphagia) Heme/Onc: Anemia NOS, Other (HIT) Hepatobiliary: No pertinent hx Musculoskeletal: Osteoarthritis Renal/: Chronic renal insuff, Acute renal failure Endocrine: Diabetes (2) PAST SURGICAL HISTORY Past Surgical History: Other (PCI, RLE thrombolysis/revascularization; tracheostomy) FAMILY HISTORY Family History: Family History Unknown SOCIAL HISTORY Smoke: Quit ALCOHOL: none Drugs: None CURRENT MEDICATIONS CURRENT MEDICATIONS Current Medications Medications (Trade) Dose Ordered Sig/Dru Route PRN Reason Start Time Stop Time Status Last Admin Dose Admin Warfarin Sodium (Coumadin Per Pharmacy) 1 each PRN DAILY PRN MC SEE COMMENTS 10/05/20 14:00 10/05/20 14:04 Warfarin Sodium (Coumadin) 5 mg 1X WARF ONCE PO 10/05/20 16:00 10/05/20 16:01 DC 10/05/20 21:23 Argatroban 50 mg/ Sodium Chloride 50 ml @ 0 mls/hr CONT PRN IV PER PROTOCOL 10/06/20 09:00 10/06/20 09:16 ALLERGIES ALLERGIES: Coded Allergies: heparin (Verified Allergy, Severe, 09/04/20) + HIT 09/04/20 Penicillins (Verified Allergy, Intermediate, PT DOESN'T REMEMBER, 03/21/16) bacitracin (Verified Allergy, Intermediate, 10/25/14) chlorpheniramine (Verified Allergy, Intermediate, 10/25/14) ciprofloxacin (Verified Allergy, Intermediate, 10/25/14) codeine (Verified Allergy, Intermediate, 10/25/14) dextromethorphan (Verified Allergy, Intermediate, 10/25/14) felodipine (Verified Allergy, Intermediate, 02/18/20) Diltiazem ok influenza virus vaccine, specific (Verified Allergy, Intermediate, 10/25/14) neomycin (Verified Allergy, Intermediate, 10/25/14) phenylephrine (Verified Allergy, Intermediate, 10/25/14) polymyxin B (Verified Allergy, Intermediate, 10/25/14) sulfamethoxazole (Verified Allergy, Intermediate, 10/25/14) trimethoprim (Verified Allergy, Intermediate, 10/25/14) ROS Review of System unreliable PHYSICAL EXAM General: No acute distress HEENT: Atraumatic, Mucous membr. moist/pink, Other (tracheostomy) Lungs: Other (diminished, mechanical vent in place. ) Heart: Regular rate (SR), Other (distatne heart sounds) Abdomen: Other (obese) Extremities: No cyanosis, Other (2-3+ bilateral LE pitting edema) Psych/Mental Status: Other (sedated) MUSCULOSKELETAL: Osteoarthritic changes both hands VITALS/I&O VITALS/I&O: Vital Signs Date Time Temp Pulse Resp B/P (MAP) Pulse Ox O2 Delivery O2 Flow Rate FiO2 10/06/20 09:02 85 12 140/83 (102) 99 Ventilator 10/06/20 07:27 99.0 99.0 I & O 10/05/20 10/05/20 10/06/20 15:00 23:00 07:00 Intake Total 935 ml 710 ml Output Total 250 ml 1145 ml 670 ml Balance -250 ml -210 ml 40 ml LABS Lab: Laboratory Tests Test 10/05/20 15:04 10/05/20 23:34 10/06/20 05:30 10/06/20 06:33 Glucose (Fingerstick) 144 mg/dL (70-99) H 121 mg/dL (70-99) H 109 mg/dL (70-99) H White Blood Count 4.9 x10^3/uL (4.0-11.0) Red Blood Count 2.81 x10^6/uL (4.30-5.70) L Hemoglobin 8.9 g/dL (13.0-17.5) L Hematocrit 26.9 % (39.0-53.0) L Mean Corpuscular Volume 96 fL (79-100) Mean Corpuscular Hemoglobin 32 pg (25-35) Mean Corpuscular Hemoglobin Concent 33 g/dL (31-37) Red Cell Distribution Width 17.6 % (11.5-14.5) H Platelet Count 233 x10^3/uL (140-400) Neutrophils (%) (Auto) 51 % (31-73) Lymphocytes (%) (Auto) 36 % (24-48) Monocytes (%) (Auto) 7 % (0-9) Eosinophils (%) (Auto) 5 % (0-3) H Basophils (%) (Auto) 1 % (0-3) Neutrophils # (Auto) 2.5 x10^3/uL (1.8-7.7) Lymphocytes # (Auto) 1.8 x10^3/uL (1.0-4.8) Monocytes # (Auto) 0.4 x10^3/uL (0.0-1.1) Eosinophils # (Auto) 0.3 x10^3/uL (0.0-0.7) Basophils # (Auto) 0.0 x10^3/uL (0.0-0.2) Prothrombin Time 14.5 SEC (11.7-14.0) H Prothrombin Time INR 1.1 (0.8-1.1) Activated Partial Thromboplast Time 38 SEC (24-38) Sodium Level 143 mmol/L (136-145) Potassium Level 3.5 mmol/L (3.5-5.1) Chloride Level 108 mmol/L (98-107) H Carbon Dioxide Level 29 mmol/L (21-32) Anion Gap 6 (6-14) Blood Urea Nitrogen 12 mg/dL (8-26) Creatinine 0.5 mg/dL (0.7-1.3) L Estimated GFR (Cockcroft-Gault) 163.5 BUN/Creatinine Ratio 24 (6-20) H Glucose Level 116 mg/dL (70-99) H Calcium Level 8.1 mg/dL (8.5-10.1) L Phosphorus Level 2.3 mg/dL (2.6-4.7) L Magnesium Level 1.8 mg/dL (1.8-2.4) Total Bilirubin 0.5 mg/dL (0.2-1.0) Aspartate Amino Transferase (AST) 18 U/L (15-37) Alanine Aminotransferase (ALT) 22 U/L (16-63) Alkaline Phosphatase 83 U/L (46-116) Total Protein 5.4 g/dL (6.4-8.2) L Albumin 1.4 g/dL (3.4-5.0) L Albumin/Globulin Ratio 0.4 (1.0-1.7) L Laboratory Tests 10/06/20 05:30 Laboratory Tests 10/06/20 05:30 ASSESSMENT/PLAN ASSESSMENT/PLAN 1. Acute on chronic respiratory failure with associated severe hypoglycemia and encephalopathy and COPD, CHF 2. Metabolic encephalopathy with associated hypoglycemia. MRI revealed no new stroke 3. Acute on chronic diastolic/systolic CHF 4. CAD/STEMI: S/P complex PCI/stents to RCA/LAD 08/16/2020. C 08/31 with ISR to RCA, S/P PCI 5. Hx of CVA 6. PAD: S/P thrombbolysis to right popliteal artery with large aneurysm. Needing future repair per vascular 7. Morbid obesity. 8. infrarenal AAA: 4 cm stable 9. Hx of HIT 10. PAFIB: maintaining SR 11. Anemia: post transfusion 12. ICM: EF at 25% Recommendations 1. Continue pulmonary treatment, presently with tracheostomy and mechanical vent 2. Continue secondary prevention measures: NGT in place 3. Resume coumadin and bridge with argatroban 4. ASA/plavix. Monitor H/H. Could stop ASA and be on coumadin and plavix moving forward, will discuss with primary codifier 5. Lasix therapy, K replacement 6. Amiodarone for rhythm maintenance. Restart metoprolol, statin 7. Supportive care EMELIA GRAY MD 10/07/20 0633: CARDIAC CONSULT ASSESSMENT/PLAN ASSESSMENT/PLAN Late entry for 8/27/21 Pt. seen and examined. 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 Supportive care. BENNY JOE APRN Oct 06, 2020 09:51 EMELIA GRAY MD Oct 07, 2020 06:33
--- NOTE | 2020-10-06 10:24 | PDOC ---
SURGICAL PROGRESS NOTE DATE: 10/06/20 TIME: 10:22 Subjective d/w nurse no issues with trach Vital Signs Vital Signs Date Time Temp Pulse Resp B/P (MAP) Pulse Ox O2 Delivery O2 Flow Rate FiO2 10/06/20 09:30 99 Ventilator 10/06/20 09:02 85 12 140/83 (102) 10/06/20 07:27 99.0 99.0 I&O Intake and Output 10/06/20 07:00 Intake Total 1645 ml Output Total 2065 ml Balance -420 ml IV Total 815 ml Tube Feeding 530 ml Other 300 ml Output Urine Total 2065 ml General: No acute distress HEENT: Other (trach without bleeding ) Labs Laboratory Tests Test 10/04/20 12:24 10/04/20 17:59 10/05/20 00:11 10/05/20 05:50 Glucose (Fingerstick) 145 mg/dL (70-99) 159 mg/dL (70-99) 142 mg/dL (70-99) White Blood Count 5.6 x10^3/uL (4.0-11.0) Red Blood Count 3.02 x10^6/uL (4.30-5.70) Hemoglobin 9.5 g/dL (13.0-17.5) Hematocrit 28.8 % (39.0-53.0) Mean Corpuscular Volume 95 fL (79-100) Mean Corpuscular Hemoglobin 32 pg (25-35) Mean Corpuscular Hemoglobin Concent 33 g/dL (31-37) Red Cell Distribution Width 17.9 % (11.5-14.5) Platelet Count 244 x10^3/uL (140-400) Neutrophils (%) (Auto) 49 % (31-73) Lymphocytes (%) (Auto) 39 % (24-48) Monocytes (%) (Auto) 6 % (0-9) Eosinophils (%) (Auto) 5 % (0-3) Basophils (%) (Auto) 1 % (0-3) Neutrophils # (Auto) 2.8 x10^3/uL (1.8-7.7) Lymphocytes # (Auto) 2.2 x10^3/uL (1.0-4.8) Monocytes # (Auto) 0.3 x10^3/uL (0.0-1.1) Eosinophils # (Auto) 0.3 x10^3/uL (0.0-0.7) Basophils # (Auto) 0.0 x10^3/uL (0.0-0.2) Prothrombin Time 14.1 SEC (11.7-14.0) Prothromb Time International Ratio 1.1 (0.8-1.1) Sodium Level 141 mmol/L (136-145) Potassium Level 3.7 mmol/L (3.5-5.1) Chloride Level 108 mmol/L (98-107) Carbon Dioxide Level 28 mmol/L (21-32) Anion Gap 5 (6-14) Blood Urea Nitrogen 13 mg/dL (8-26) Creatinine 0.5 mg/dL (0.7-1.3) Estimated GFR (Cockcroft-Gault) 163.5 Glucose Level 116 mg/dL (70-99) Calcium Level 8.5 mg/dL (8.5-10.1) Magnesium Level 1.9 mg/dL (1.8-2.4) Test 10/05/20 05:54 10/05/20 15:04 10/05/20 23:34 10/06/20 05:30 Glucose (Fingerstick) 111 mg/dL (70-99) 144 mg/dL (70-99) 121 mg/dL (70-99) White Blood Count 4.9 x10^3/uL (4.0-11.0) Red Blood Count 2.81 x10^6/uL (4.30-5.70) Hemoglobin 8.9 g/dL (13.0-17.5) Hematocrit 26.9 % (39.0-53.0) Mean Corpuscular Volume 96 fL (79-100) Mean Corpuscular Hemoglobin 32 pg (25-35) Mean Corpuscular Hemoglobin Concent 33 g/dL (31-37) Red Cell Distribution Width 17.6 % (11.5-14.5) Platelet Count 233 x10^3/uL (140-400) Neutrophils (%) (Auto) 51 % (31-73) Lymphocytes (%) (Auto) 36 % (24-48) Monocytes (%) (Auto) 7 % (0-9) Eosinophils (%) (Auto) 5 % (0-3) Basophils (%) (Auto) 1 % (0-3) Neutrophils # (Auto) 2.5 x10^3/uL (1.8-7.7) Lymphocytes # (Auto) 1.8 x10^3/uL (1.0-4.8) Monocytes # (Auto) 0.4 x10^3/uL (0.0-1.1) Eosinophils # (Auto) 0.3 x10^3/uL (0.0-0.7) Basophils # (Auto) 0.0 x10^3/uL (0.0-0.2) Prothrombin Time 14.5 SEC (11.7-14.0) Prothromb Time International Ratio 1.1 (0.8-1.1) Activated Partial Thromboplast Time 38 SEC (24-38) Sodium Level 143 mmol/L (136-145) Potassium Level 3.5 mmol/L (3.5-5.1) Chloride Level 108 mmol/L (98-107) Carbon Dioxide Level 29 mmol/L (21-32) Anion Gap 6 (6-14) Blood Urea Nitrogen 12 mg/dL (8-26) Creatinine 0.5 mg/dL (0.7-1.3) Estimated GFR (Cockcroft-Gault) 163.5 BUN/Creatinine Ratio 24 (6-20) Glucose Level 116 mg/dL (70-99) Calcium Level 8.1 mg/dL (8.5-10.1) Phosphorus Level 2.3 mg/dL (2.6-4.7) Magnesium Level 1.8 mg/dL (1.8-2.4) Total Bilirubin 0.5 mg/dL (0.2-1.0) Aspartate Amino Transf (AST/SGOT) 18 U/L (15-37) Alanine Aminotransferase (ALT/SGPT) 22 U/L (16-63) Alkaline Phosphatase 83 U/L (46-116) Total Protein 5.4 g/dL (6.4-8.2) Albumin 1.4 g/dL (3.4-5.0) Albumin/Globulin Ratio 0.4 (1.0-1.7) Test 10/06/20 06:33 Glucose (Fingerstick) 109 mg/dL (70-99) Laboratory Tests Test 10/05/20 15:04 10/05/20 23:34 10/06/20 05:30 10/06/20 06:33 Glucose (Fingerstick) 144 mg/dL (70-99) 121 mg/dL (70-99) 109 mg/dL (70-99) White Blood Count 4.9 x10^3/uL (4.0-11.0) Red Blood Count 2.81 x10^6/uL (4.30-5.70) Hemoglobin 8.9 g/dL (13.0-17.5) Hematocrit 26.9 % (39.0-53.0) Mean Corpuscular Volume 96 fL (79-100) Mean Corpuscular Hemoglobin 32 pg (25-35) Mean Corpuscular Hemoglobin Concent 33 g/dL (31-37) Red Cell Distribution Width 17.6 % (11.5-14.5) Platelet Count 233 x10^3/uL (140-400) Neutrophils (%) (Auto) 51 % (31-73) Lymphocytes (%) (Auto) 36 % (24-48) Monocytes (%) (Auto) 7 % (0-9) Eosinophils (%) (Auto) 5 % (0-3) Basophils (%) (Auto) 1 % (0-3) Neutrophils # (Auto) 2.5 x10^3/uL (1.8-7.7) Lymphocytes # (Auto) 1.8 x10^3/uL (1.0-4.8) Monocytes # (Auto) 0.4 x10^3/uL (0.0-1.1) Eosinophils # (Auto) 0.3 x10^3/uL (0.0-0.7) Basophils # (Auto) 0.0 x10^3/uL (0.0-0.2) Prothrombin Time 14.5 SEC (11.7-14.0) Prothromb Time International Ratio 1.1 (0.8-1.1) Activated Partial Thromboplast Time 38 SEC (24-38) Sodium Level 143 mmol/L (136-145) Potassium Level 3.5 mmol/L (3.5-5.1) Chloride Level 108 mmol/L (98-107) Carbon Dioxide Level 29 mmol/L (21-32) Anion Gap 6 (6-14) Blood Urea Nitrogen 12 mg/dL (8-26) Creatinine 0.5 mg/dL (0.7-1.3) Estimated GFR (Cockcroft-Gault) 163.5 BUN/Creatinine Ratio 24 (6-20) Glucose Level 116 mg/dL (70-99) Calcium Level 8.1 mg/dL (8.5-10.1) Phosphorus Level 2.3 mg/dL (2.6-4.7) Magnesium Level 1.8 mg/dL (1.8-2.4) Total Bilirubin 0.5 mg/dL (0.2-1.0) Aspartate Amino Transf (AST/SGOT) 18 U/L (15-37) Alanine Aminotransferase (ALT/SGPT) 22 U/L (16-63) Alkaline Phosphatase 83 U/L (46-116) Total Protein 5.4 g/dL (6.4-8.2) Albumin 1.4 g/dL (3.4-5.0) Albumin/Globulin Ratio 0.4 (1.0-1.7) Problem List Problems Medical Problems: (1) NSTEMI (non-ST elevated myocardial infarction) Status: Acute (2) Obtundation Status: Acute (3) Respiratory arrest Status: Acute Assessment/Plan trach stable will sign off call with concerns Justicifation of Admission Dx: Justifications for Admission: Justification of Admission Dx: Yes CHF: Cardiac Arrhythmias VICTORINO ARTHUR [employer] Oct 06, 2020 10:24
--- NOTE | 2020-10-06 10:57 | PDOC2 ---
GI CONSULT Date of Service: DATE: 10/06/20 TIME: 10:57 Reason For Consult: PEG HPI: HPI: 70 y/o male w/ complicated medical history as below, this time admitted w/ resp failure and encephalopathy, now s/p tracheostomy placement on 10/05/20, also made DNR. Apparently has no family/DPOA - per nurse, PEG deemed medically necessary by other physicians. Tolerating Dobhoff feeds, no GI concerns per nurse. PMH: PMH: A Fib, CAD, ICM, CHF, HTN, MN, HLD, AAA, COPD, CVA, HIT, OA, CKD, DM PCI, RLE revascularization, tracheostomy, right popliteal artery aneurysm s/p thrombolysis FH: Family History: Other (unable to obtain) Social History: Smoke: Quit ALCOHOL: none Drugs: None ROS: unable to obtain Vitals: Vitals: Vital Signs Date Time Temp Pulse Resp B/P (MAP) Pulse Ox O2 Delivery O2 Flow Rate FiO2 10/06/20 09:30 99 Ventilator 10/06/20 09:02 85 12 140/83 (102) 10/06/20 07:27 99.0 99.0 Labs: Labs: Laboratory Tests Test 10/05/20 15:04 10/05/20 23:34 10/06/20 05:30 10/06/20 06:33 Glucose (Fingerstick) 144 mg/dL (70-99) 121 mg/dL (70-99) 109 mg/dL (70-99) White Blood Count 4.9 x10^3/uL (4.0-11.0) Red Blood Count 2.81 x10^6/uL (4.30-5.70) Hemoglobin 8.9 g/dL (13.0-17.5) Hematocrit 26.9 % (39.0-53.0) Mean Corpuscular Volume 96 fL (79-100) Mean Corpuscular Hemoglobin 32 pg (25-35) Mean Corpuscular Hemoglobin Concent 33 g/dL (31-37) Red Cell Distribution Width 17.6 % (11.5-14.5) Platelet Count 233 x10^3/uL (140-400) Neutrophils (%) (Auto) 51 % (31-73) Lymphocytes (%) (Auto) 36 % (24-48) Monocytes (%) (Auto) 7 % (0-9) Eosinophils (%) (Auto) 5 % (0-3) Basophils (%) (Auto) 1 % (0-3) Neutrophils # (Auto) 2.5 x10^3/uL (1.8-7.7) Lymphocytes # (Auto) 1.8 x10^3/uL (1.0-4.8) Monocytes # (Auto) 0.4 x10^3/uL (0.0-1.1) Eosinophils # (Auto) 0.3 x10^3/uL (0.0-0.7) Basophils # (Auto) 0.0 x10^3/uL (0.0-0.2) Prothrombin Time 14.5 SEC (11.7-14.0) Prothromb Time International Ratio 1.1 (0.8-1.1) Activated Partial Thromboplast Time 38 SEC (24-38) Sodium Level 143 mmol/L (136-145) Potassium Level 3.5 mmol/L (3.5-5.1) Chloride Level 108 mmol/L (98-107) Carbon Dioxide Level 29 mmol/L (21-32) Anion Gap 6 (6-14) Blood Urea Nitrogen 12 mg/dL (8-26) Creatinine 0.5 mg/dL (0.7-1.3) Estimated GFR (Cockcroft-Gault) 163.5 BUN/Creatinine Ratio 24 (6-20) Glucose Level 116 mg/dL (70-99) Calcium Level 8.1 mg/dL (8.5-10.1) Phosphorus Level 2.3 mg/dL (2.6-4.7) Magnesium Level 1.8 mg/dL (1.8-2.4) Total Bilirubin 0.5 mg/dL (0.2-1.0) Aspartate Amino Transf (AST/SGOT) 18 U/L (15-37) Alanine Aminotransferase (ALT/SGPT) 22 U/L (16-63) Alkaline Phosphatase 83 U/L (46-116) Total Protein 5.4 g/dL (6.4-8.2) Albumin 1.4 g/dL (3.4-5.0) Albumin/Globulin Ratio 0.4 (1.0-1.7) Allergies: Coded Allergies: heparin (Verified Allergy, Severe, 09/04/20) + HIT 09/04/20 Penicillins (Verified Allergy, Intermediate, PT DOESN'T REMEMBER, 03/21/16) bacitracin (Verified Allergy, Intermediate, 10/25/14) chlorpheniramine (Verified Allergy, Intermediate, 10/25/14) ciprofloxacin (Verified Allergy, Intermediate, 10/25/14) codeine (Verified Allergy, Intermediate, 10/25/14) dextromethorphan (Verified Allergy, Intermediate, 10/25/14) felodipine (Verified Allergy, Intermediate, 02/18/20) Diltiazem ok influenza virus vaccine, specific (Verified Allergy, Intermediate, 10/25/14) neomycin (Verified Allergy, Intermediate, 10/25/14) phenylephrine (Verified Allergy, Intermediate, 10/25/14) polymyxin B (Verified Allergy, Intermediate, 10/25/14) sulfamethoxazole (Verified Allergy, Intermediate, 10/25/14) trimethoprim (Verified Allergy, Intermediate, 10/25/14) Medications: Current Medications Medications (Trade) Dose Ordered Sig/Dru Route PRN Reason Start Time Stop Time Status Last Admin Dose Admin Warfarin Sodium (Coumadin Per Pharmacy) 1 each PRN DAILY PRN MC SEE COMMENTS 10/05/20 14:00 10/06/20 09:32 Warfarin Sodium (Coumadin) 5 mg 1X WARF ONCE PO 10/05/20 16:00 10/05/20 16:01 DC 10/05/20 21:23 Argatroban 50 mg/ Sodium Chloride 50 ml @ 0 mls/hr CONT PRN IV PER PROTOCOL 10/06/20 09:00 10/06/20 09:16 Imaging: Imaging: C/A/P CT 09/22 IMPRESSION: 1. Hypoperfusion within an atelectatic region of the left lower lobe suggests pneumonia. Correlate for evidence of infection. 2. Small bilateral pleural effusions with compressive atelectasis of both lower lobes. 3. Bilateral lung nodules measure up to 9 mm on the right. These are not clearly changed since 02/18/2020. Follow-up is suggested in one year if long-term stability is not artery known. 4. Mild constipation. Correlate for fecal impaction. 5. 4.0 cm infrarenal abdominal aortic aneurysm. 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 There is mild hydroureter of both moieties proximally. There is no hydronephrosis. Brain MRI 09/25 No acute infarct, hemorrhage, mass, or hydrocephalus. KUB 10/05 IMPRESSION: Weighted feeding tube projects over the expected region of the proximal stomach PE: GEN: appears chronically ill HEENT: Atraumatic LUNGS: trach/vent, diminished HEART: RRR ABD: quiet BS, soft, Dobhoff @ 30cc EXTREMITY: BLE edema SKIN: No rashes, no jaundice NEURO/PSYCH: sedated A/P: A/P: Resp failure, encephalopathy s/p tracheostomy, request for PEG placement Anemia - has required transfusions CAD, ICM, h/o A Fib, COPD, CHF, h/o CVA, PAD COVID negative 09/22/20 -- INR 1.1 today. Reviewed cardiology note - plans to resume Coumadin, bridge w/ Argatroban, also on ASA and Plavix. Will review w/ Dr. Yoder. SARAH ORR Oct 06, 2020 10:57
--- NOTE | 2020-10-06 11:13 | PDOC ---
PULMONARY PROGRESS NOTES DATE: 10/06/20 TIME: 11:11 Subjective on vent support 40%/5 no overnight issues Status post tracheostomy 10/05 Vitals Vital Signs Date Time Temp Pulse Resp B/P (MAP) Pulse Ox O2 Delivery O2 Flow Rate FiO2 10/06/20 09:30 99 Ventilator 10/06/20 09:02 85 12 140/83 (102) 10/06/20 07:27 99.0 99.0 Comments ros unable to obtain sedated on vent General: No acute distress HEENT: Other (nc at perrl nose clear orally intubated neck no lad no thyromegaly) Lungs: Other (Intubated) Cardiovascular: S1, S2 Abdomen: Soft, Non-tender, Other (Obese) Extremities: Other (1+ edema) Skin: Warm Labs Laboratory Tests Test 10/04/20 12:24 10/04/20 17:59 10/05/20 00:11 10/05/20 05:50 Glucose (Fingerstick) 145 mg/dL (70-99) 159 mg/dL (70-99) 142 mg/dL (70-99) White Blood Count 5.6 x10^3/uL (4.0-11.0) Red Blood Count 3.02 x10^6/uL (4.30-5.70) Hemoglobin 9.5 g/dL (13.0-17.5) Hematocrit 28.8 % (39.0-53.0) Mean Corpuscular Volume 95 fL (79-100) Mean Corpuscular Hemoglobin 32 pg (25-35) Mean Corpuscular Hemoglobin Concent 33 g/dL (31-37) Red Cell Distribution Width 17.9 % (11.5-14.5) Platelet Count 244 x10^3/uL (140-400) Neutrophils (%) (Auto) 49 % (31-73) Lymphocytes (%) (Auto) 39 % (24-48) Monocytes (%) (Auto) 6 % (0-9) Eosinophils (%) (Auto) 5 % (0-3) Basophils (%) (Auto) 1 % (0-3) Neutrophils # (Auto) 2.8 x10^3/uL (1.8-7.7) Lymphocytes # (Auto) 2.2 x10^3/uL (1.0-4.8) Monocytes # (Auto) 0.3 x10^3/uL (0.0-1.1) Eosinophils # (Auto) 0.3 x10^3/uL (0.0-0.7) Basophils # (Auto) 0.0 x10^3/uL (0.0-0.2) Prothrombin Time 14.1 SEC (11.7-14.0) Prothromb Time International Ratio 1.1 (0.8-1.1) Sodium Level 141 mmol/L (136-145) Potassium Level 3.7 mmol/L (3.5-5.1) Chloride Level 108 mmol/L (98-107) Carbon Dioxide Level 28 mmol/L (21-32) Anion Gap 5 (6-14) Blood Urea Nitrogen 13 mg/dL (8-26) Creatinine 0.5 mg/dL (0.7-1.3) Estimated GFR (Cockcroft-Gault) 163.5 Glucose Level 116 mg/dL (70-99) Calcium Level 8.5 mg/dL (8.5-10.1) Magnesium Level 1.9 mg/dL (1.8-2.4) Test 10/05/20 05:54 10/05/20 15:04 10/05/20 23:34 10/06/20 05:30 Glucose (Fingerstick) 111 mg/dL (70-99) 144 mg/dL (70-99) 121 mg/dL (70-99) White Blood Count 4.9 x10^3/uL (4.0-11.0) Red Blood Count 2.81 x10^6/uL (4.30-5.70) Hemoglobin 8.9 g/dL (13.0-17.5) Hematocrit 26.9 % (39.0-53.0) Mean Corpuscular Volume 96 fL (79-100) Mean Corpuscular Hemoglobin 32 pg (25-35) Mean Corpuscular Hemoglobin Concent 33 g/dL (31-37) Red Cell Distribution Width 17.6 % (11.5-14.5) Platelet Count 233 x10^3/uL (140-400) Neutrophils (%) (Auto) 51 % (31-73) Lymphocytes (%) (Auto) 36 % (24-48) Monocytes (%) (Auto) 7 % (0-9) Eosinophils (%) (Auto) 5 % (0-3) Basophils (%) (Auto) 1 % (0-3) Neutrophils # (Auto) 2.5 x10^3/uL (1.8-7.7) Lymphocytes # (Auto) 1.8 x10^3/uL (1.0-4.8) Monocytes # (Auto) 0.4 x10^3/uL (0.0-1.1) Eosinophils # (Auto) 0.3 x10^3/uL (0.0-0.7) Basophils # (Auto) 0.0 x10^3/uL (0.0-0.2) Prothrombin Time 14.5 SEC (11.7-14.0) Prothromb Time International Ratio 1.1 (0.8-1.1) Activated Partial Thromboplast Time 38 SEC (24-38) Sodium Level 143 mmol/L (136-145) Potassium Level 3.5 mmol/L (3.5-5.1) Chloride Level 108 mmol/L (98-107) Carbon Dioxide Level 29 mmol/L (21-32) Anion Gap 6 (6-14) Blood Urea Nitrogen 12 mg/dL (8-26) Creatinine 0.5 mg/dL (0.7-1.3) Estimated GFR (Cockcroft-Gault) 163.5 BUN/Creatinine Ratio 24 (6-20) Glucose Level 116 mg/dL (70-99) Calcium Level 8.1 mg/dL (8.5-10.1) Phosphorus Level 2.3 mg/dL (2.6-4.7) Magnesium Level 1.8 mg/dL (1.8-2.4) Total Bilirubin 0.5 mg/dL (0.2-1.0) Aspartate Amino Transf (AST/SGOT) 18 U/L (15-37) Alanine Aminotransferase (ALT/SGPT) 22 U/L (16-63) Alkaline Phosphatase 83 U/L (46-116) Total Protein 5.4 g/dL (6.4-8.2) Albumin 1.4 g/dL (3.4-5.0) Albumin/Globulin Ratio 0.4 (1.0-1.7) Test 10/06/20 06:33 Glucose (Fingerstick) 109 mg/dL (70-99) Laboratory Tests Test 10/05/20 15:04 10/05/20 23:34 10/06/20 05:30 10/06/20 06:33 Glucose (Fingerstick) 144 mg/dL (70-99) 121 mg/dL (70-99) 109 mg/dL (70-99) White Blood Count 4.9 x10^3/uL (4.0-11.0) Red Blood Count 2.81 x10^6/uL (4.30-5.70) Hemoglobin 8.9 g/dL (13.0-17.5) Hematocrit 26.9 % (39.0-53.0) Mean Corpuscular Volume 96 fL (79-100) Mean Corpuscular Hemoglobin 32 pg (25-35) Mean Corpuscular Hemoglobin Concent 33 g/dL (31-37) Red Cell Distribution Width 17.6 % (11.5-14.5) Platelet Count 233 x10^3/uL (140-400) Neutrophils (%) (Auto) 51 % (31-73) Lymphocytes (%) (Auto) 36 % (24-48) Monocytes (%) (Auto) 7 % (0-9) Eosinophils (%) (Auto) 5 % (0-3) Basophils (%) (Auto) 1 % (0-3) Neutrophils # (Auto) 2.5 x10^3/uL (1.8-7.7) Lymphocytes # (Auto) 1.8 x10^3/uL (1.0-4.8) Monocytes # (Auto) 0.4 x10^3/uL (0.0-1.1) Eosinophils # (Auto) 0.3 x10^3/uL (0.0-0.7) Basophils # (Auto) 0.0 x10^3/uL (0.0-0.2) Prothrombin Time 14.5 SEC (11.7-14.0) Prothromb Time International Ratio 1.1 (0.8-1.1) Activated Partial Thromboplast Time 38 SEC (24-38) Sodium Level 143 mmol/L (136-145) Potassium Level 3.5 mmol/L (3.5-5.1) Chloride Level 108 mmol/L (98-107) Carbon Dioxide Level 29 mmol/L (21-32) Anion Gap 6 (6-14) Blood Urea Nitrogen 12 mg/dL (8-26) Creatinine 0.5 mg/dL (0.7-1.3) Estimated GFR (Cockcroft-Gault) 163.5 BUN/Creatinine Ratio 24 (6-20) Glucose Level 116 mg/dL (70-99) Calcium Level 8.1 mg/dL (8.5-10.1) Phosphorus Level 2.3 mg/dL (2.6-4.7) Magnesium Level 1.8 mg/dL (1.8-2.4) Total Bilirubin 0.5 mg/dL (0.2-1.0) Aspartate Amino Transf (AST/SGOT) 18 U/L (15-37) Alanine Aminotransferase (ALT/SGPT) 22 U/L (16-63) Alkaline Phosphatase 83 U/L (46-116) Total Protein 5.4 g/dL (6.4-8.2) Albumin 1.4 g/dL (3.4-5.0) Albumin/Globulin Ratio 0.4 (1.0-1.7) Medications Active Scripts Medications Dose Route/Sig Max Daily Dose Days Date Category Amiodarone Hcl 200 Mg Tablet 400 Mg PO DAILY 09/18/20 Rx [Warfarin Per Pharmacy] 1 EACH Each 1 Each MC PRN DAILY PRN 30 09/18/20 Rx Clopidogrel (Clopidogrel Bisulfate) 75 Mg Tablet 75 Mg PO DAILYWBKFT 09/18/20 Rx Glimepiride 4 Mg Tablet 1 Tab PO DAILY 09/13/20 Reported Furosemide 40 Mg Tablet 1 Tab PO BID 09/13/20 Reported Symbicort 160-4.5 Mcg Inhaler (Budesonide/Formoterol Fumarate) 10.2 Gm Hfa.aer.ad 1 Puff INH DAILY 09/13/20 Reported Losartan-Hctz 100-12.5 Mg Tab (Losartan/Hydrochlorothiazide) 1 Each Tablet 1 Tab PO DAILY 09/13/20 Reported Nitrofurantoin Giles-Mcr 100 Mg (Nitrofurantoin Monohyd/M-Cryst) 100 Mg Capsule 1 Cap PO BID 09/13/20 Reported Betamethasone Valerate 60 Ml Lotion 1 TP QHS 09/13/20 Reported Atorvastatin Calcium 40 Mg Tablet 1 Tab PO DAILY 09/13/20 Reported Diltiazem 24Hr Cd (Diltiazem HCl) 240 Mg Cap.er.24h 1 Cap PO DAILY 09/13/20 Reported Nystop (Nystatin) 60 Gm Powder 1 Sudheer TP BID 09/13/20 Reported Humalog (Insulin Lispro) 100 Unit/1 Ml Insuln.pen 0 Units SQ TIDWMEALS 08/06/18 Rx Duoneb 0.5-3(2.5) Mg/3 Ml (Albuterol/Ipratropium) 3 Ml Ampul.neb 3 Ml NEB RTQID 08/06/18 Rx Aspirin 325 Mg Tablet 325 Mg PO DAILYWBKFT 30 07/22/17 Rx Metoprolol Tartrate 25 Mg Tablet 25 Mg PO BID 30 07/22/17 Rx Montelukast Sodium Tablet (Montelukast Sodium) 10 Mg Tablet 10 Mg PO QHS 07/22/17 Rx Gabapentin 600 Mg Tablet 600 Mg PO BID 30 07/22/17 Rx Pepcid (Famotidine) 20 Mg Tablet 20 Mg PO BID 05/17/13 Reported Comments cxr reviewed 1.Improving interstitial prominence, persistent left basilar opacities. ett ok Impression . 1. Acute on chronic respiratory failure secondary to multifactorial etiologies including hypoglycemic encephalopathy. No evidence of new stroke. 2. Possible sepsis--- on antibiotics 3. Hypoglycemia./ encephalopathy 4. The patient with prior history of cerebrovascular accident with left-sided weakness. 5. Underlying chronic obstructive pulmonary disease. 6. Morbid obesity. 7. Peripheral vascular disease. 8. Abnormal CT chest with bibasilar atelectasis. No significant mucus plugging. Tiny pleural effusion seen. 9. Persistent encephalopathy. --ongoing 10. anemia Plan . Updated 10/06/20 Continue current vent support 10450/40/5 Status post tracheostomy. plan to start PS weaning 24 hours post trach Continue ABX monitor HGB, improved Follow CXR/ABG --make changes as needed DVT/GI PPX: warfarin --on hold restart per PCP Awaiting PEG tube placement D/W RN and RT Patient is a DNR Updated 10/04/20 Continue current vent support 10/450/40/5 attempt pressure support trial, tracheostomy is medically indicated secondary to inability to protect airway,Intubated 3 times. surgery planning trach in am plan to start PS weaning 24 hours post trach Continue ABX monitor HGB, improved Follow CXR/ABG --make changes as needed DVT/GI PPX: warfarin --on hold restart per PCP D/W RN and RT Patient is a DNR Updated 10/03/20 Continue current vent support 10/450/40/5 DC sedation, attempt pressure support trial, tracheostomy is medically indicated secondary to inability to protect airway,Intubated 3 times. surgery consult for tracheostomy Follow CXR/ABG --make changes as needed Continue ABX on cefepime Hemoglobin 6.3 today, hold Coumadin, monitor hemoglobin. Tx per PCP DVT/GI PPX: warfarin --on hold as patient is anemic D/W RN and RT Patient is a DNR Discussed with Dr. Fierro Updated 10/02/20 Continue current vent support 10450/40/5 DC sedation, attempt pressure support trial, tracheostomy is medically indicated secondary to inability to protect airway,Intubated 3 times. consider surgery consult Follow CXR/ABG --make changes as needed Continue ABX on cefepime Hemoglobin 6.3 today, hold Coumadin, monitor hemoglobin. Tx per PCP DVT/GI PPX: warfarin --on hold as patient is anemic D/W RN and RT Patient is a DNR CC time 30 minutes CLINTON PALAFOX MD Oct 06, 2020 11:13
[2020-10-06] MEDS: CLOPIDOGREL BISULFATE 75 MG TABLET PO SCH (11:37)
[2020-10-06] MEDS: POTASSIUM BICARB 20 MEQ EFFERVESCENT TABLET. PEG SCH (11:37)
[2020-10-06] MEDS: PANTOPRAZOLE IV PUSH 40 MG VIAL. IVP SCH (11:38)
[2020-10-06] MEDS: AMIODARONE HCL 200 MG TABLET. PO SCH (11:38)
[2020-10-06] MEDS: ASPIRIN CHEWABLE 81 MG TABLET. PO SCH (11:39)
[2020-10-06] MEDS: FUROSEMIDE 40 MG/4 ML VIAL. IVP SCH (11:39)
[2020-10-06] MEDS: METOPROLOL TART IMMED RELEASE 25 MG TABLET. PO SCH ×2 (11:39→22:47)
--- NOTE | 2020-10-06 13:49 | PDOC ---
[employer] PROGRESS NOTE Date of Service DOS: DATE: 10/06/20 TIME: 13:45 Chief Complaint Chief Complaint Acute anemia, likely due to acute blood loss due to multiple lab draws and multiple comorbidities. Acute metabolic, infectious encephalopathy Acute respiratory failure Healthcare associated pneumonia, possible aspiration, possible gram-negative organisms, possibly gram-positive organism Acute hypoglycemia Hypokalemia Elevated troponins concerning for type II demand ischemia Severe protein malnutrition Morbid obesity AAA, 4 cm History of diabetes mellitus type 2 History of dyslipidemia history of hypertension History of recent STEMI History of CAD with recent stent placement History of JEANNE currently on argatroban We will continue IV argatroban and warfarin bridge. Will determine timing of PEG tube placement before starting warfarin. Hypoglycemia protocol Continue empiric IV antibiotics with concern for aspiration pneumonia Pulmonology consult for vent management IV electrolyte replacement as needed Consider cardiology consult if troponins increase Argatroban for DVT prophylaxis Protonix while on the vent GI prophylaxis N.p.o. Full code Discussed with RN and SW Disposition inpatient management as above Surrogate decision maker is undesignated History of Present Illness History of Present Illness Patient is a 70-year-old male with a recent prolonged hospitalization for STEMI and respiratory failure for which she was treated with arterial thrombolysis for a right leg popliteal artery aneurysm and also had left heart cath with placement of a stent in the LAD and RCA comes in today after he was found obtunded at his halfway facility. Apparently according to the nursing facility patient was in his usual state of health and he was conversational but then became altered. His blood glucose was found to be in the 30s. Glucose tabs and glucagon was given in route and his GCS reported at 6. Upon arrival patient's mental status did not improve and he was eventually intubated for airway protection. Of note EMS was bagging the patient through the nasal access. In the ED, patient was placed on a vent and pulmonology was consulted. Patient was also taken to the CT scanner for sanders scanning. Patient was started to wake up on the vent and sedation was ordered. 09/23/20 Patient examined at bedside. Intubated. Not on any sedation but unresponsive. Neurology consult in place. 09/24/20 Patient seen and examined at bedside. Remains intubated he is off sedation but still remains unresponsive. Planning for MRI brain in the morning. Further plan to be determined by MRI. 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 Plan of care discussed with bedside RN 09/25/20: Afebrile, currently breathing on ventilator with FiO2 50%, PEEP 5. Had CODE BLUE in ICU this morning; received 2 rounds of CPR, epinephrine, and atropine with ROSC. I believe MRI will be obtained today, per neurology. I had discussion with Dr. Rubalcava about his very poor prognosis due to multifactorial comorbidities. In our opinion continuing with present aggressive care would be futile. I would recommend that he should be made DNR, and after discussion with Dr. Rubalcava he agrees. Since there is no family and no one to discuss goals of care, we agreed to make patient DNR. Critical care time 30 minutes spent reviewing charts, reviewing labs, imaging, discussion with RN. 09/26/2020: Afebrile. Still on vent, with FiO2 45%, PEEP 5. After discussion with Dr. Rubalcava yesterday, patient was made DNR. In the ED is likely a poor candidate for weaning trials may need trach in near future if no significant improvement. MRI with no acute findings. Continue with pressure support and IV antibiotics. Critical care time 30 minutes reviewing charts, labs, examination, discussion with RN. 09/27/2020: Afebrile. On vent with FiO2 40%, PEEP 5. Potassium 2.8 today, will replace. Warfarin has been resumed. Discussed with pharmacy, will resume a spirin and Plavix. May need tracheostomy by the end of the week if no improvement in mental status. Chest x-ray today showed improving interstitial prominence, persistent left basilar opacities. Continue IV cefepime and supportive care. Critical care time 30 minutes reviewing charts, labs, examination, discussion with RN. 09/28/2020: Afebrile. On ventilator with FiO2 40%, PEEP 5. Warfarin has been resumed; INR 1.3 today. Some morning labs still pending; hemoglobin yesterday 7.3, will continue to monitor. May need tracheostomy at some point if no improvement in mental status. Continue IV cefepime and supportive care. Critical care time 30 minutes reviewing charts, labs, examination, discussion with RN. 09/29/2020: Afebrile. Breathing on vent with FiO2 40%, PEEP 5. INR 1.2 today; pharmacy to help with warfarin dosing. White count within normal range, renal function stable. Spoke with pharmacy about cefepime 1 g every 8 hours dosing; this has been changed to cefepime 2 g every 8 hours. Possible tracheostomy at some point. Critical care time 30 minutes reviewing charts, labs, examination, discussion with RN. 09/30/20: Afebrile. Currently breathing on vent with FiO2 40%, PEEP 5. Continue antibiotics, cefepime 2 g every 8 hours. INR 1.4; continue warfarin dosing per pharmacy. Possible tracheostomy at some point. Critical care time 30 minutes reviewing charts, labs, examination, discussion with RN. 10/01/2020: Febrile overnight with T-max 100.3 F. On ventilator with FiO2 40%, PEEP 5. Continue antibiotics, cefepime 2 g every 8 hours. INR 1.4, still subtherapeutic; continue warfarin dosing per pharmacy. Possible tracheostomy at some point. Critical care time 30 minutes reviewing charts, labs, examination, discussion with RN. 10/02/2020 No acute events overnight. Patient saturating 99% on vent settings of 10/450/40/5. Patient will likely need a trach and PEG at some point. We will hold warfarin and start 2 units PRBC transfusion. Patient's chart, labs, images were reviewed and discussed with RN A total of 32 minutes of critical care time was spent in reviewing chart, labs, and images. Discussed with RN and JENNIFER. 10/03/2020 No acute events overnight. Patient saturating 100% on minimal vent settings. No sedation at this point and patient is opening his eyes spontaneously. Not much response or spontaneous movements. Surgery has been consulted for tracheostomy. Patient will also likely need a PEG tube. Prognosis is very poor. Patient has a legal guardian and is signed by 2 physicians for authoriza tion for that. We are currently making decisions for him and at least we had made him DNR. FOBT negative for bloody stools. Continue to trend hemoglobin and once stable will restart anticoagulation likely with heparin drip. Patient's chart, labs, images were reviewed and discussed with RN A total of 40 minutes of critical care time was spent in reviewing chart, labs, and images. Discussed with RN and SW. 10/04/2020 No acute events overnight. Patient saturating 90% on minimal vent settings. T- max 100.4 overnight. Plan for trach tomorrow with surgery. Patient's chart, labs, images were reviewed and discussed with RN 10/05/2020 No acute events overnight. Patient saturating 99% on minimal vent settings. Plan for tracheostomy today. Consent is provided by authorization by 2 physicians due to patient having no close relatives or DPOA. Will resume heparin and warfarin bridging tomorrow after tracheostomy completed. Patient's chart, labs, images were reviewed and discussed with RN A total of 35 minutes of critical care time was spent in reviewing chart, labs, and images. Discussed with RN and SW. Vitals/I&O Vitals/I&O: Vital Signs Date Time Temp Pulse Resp B/P (MAP) Pulse Ox O2 Delivery O2 Flow Rate FiO2 10/06/20 12:00 98.6 86 12 141/86 (104) 99 Ventilator 98.6 I & O 10/05/20 10/05/20 10/06/20 15:00 23:00 07:00 Intake Total 935 ml 710 ml Output Total 250 ml 1145 ml 670 ml Balance -250 ml -210 ml 40 ml Physical Exam General: No acute distress Heart: Regular rate (SR), Other (distatne heart sounds) Lungs: Other (Intubated) Abdomen: Other (obese) Extremities: No cyanosis, Other (2-3+ bilateral LE pitting edema) Skin: No rashes, No significant lesion Labs Labs: Laboratory Tests Test 10/05/20 15:04 10/05/20 23:34 10/06/20 05:30 10/06/20 06:33 Glucose (Fingerstick) 144 mg/dL (70-99) 121 mg/dL (70-99) 109 mg/dL (70-99) White Blood Count 4.9 x10^3/uL (4.0-11.0) Red Blood Count 2.81 x10^6/uL (4.30-5.70) Hemoglobin 8.9 g/dL (13.0-17.5) Hematocrit 26.9 % (39.0-53.0) Mean Corpuscular Volume 96 fL (79-100) Mean Corpuscular Hemoglobin 32 pg (25-35) Mean Corpuscular Hemoglobin Concent 33 g/dL (31-37) Red Cell Distribution Width 17.6 % (11.5-14.5) Platelet Count 233 x10^3/uL (140-400) Neutrophils (%) (Auto) 51 % (31-73) Lymphocytes (%) (Auto) 36 % (24-48) Monocytes (%) (Auto) 7 % (0-9) Eosinophils (%) (Auto) 5 % (0-3) Basophils (%) (Auto) 1 % (0-3) Neutrophils # (Auto) 2.5 x10^3/uL (1.8-7.7) Lymphocytes # (Auto) 1.8 x10^3/uL (1.0-4.8) Monocytes # (Auto) 0.4 x10^3/uL (0.0-1.1) Eosinophils # (Auto) 0.3 x10^3/uL (0.0-0.7) Basophils # (Auto) 0.0 x10^3/uL (0.0-0.2) Prothrombin Time 14.5 SEC (11.7-14.0) Prothromb Time International Ratio 1.1 (0.8-1.1) Activated Partial Thromboplast Time 38 SEC (24-38) Sodium Level 143 mmol/L (136-145) Potassium Level 3.5 mmol/L (3.5-5.1) Chloride Level 108 mmol/L (98-107) Carbon Dioxide Level 29 mmol/L (21-32) Anion Gap 6 (6-14) Blood Urea Nitrogen 12 mg/dL (8-26) Creatinine 0.5 mg/dL (0.7-1.3) Estimated GFR (Cockcroft-Gault) 163.5 BUN/Creatinine Ratio 24 (6-20) Glucose Level 116 mg/dL (70-99) Calcium Level 8.1 mg/dL (8.5-10.1) Phosphorus Level 2.3 mg/dL (2.6-4.7) Magnesium Level 1.8 mg/dL (1.8-2.4) Total Bilirubin 0.5 mg/dL (0.2-1.0) Aspartate Amino Transf (AST/SGOT) 18 U/L (15-37) Alanine Aminotransferase (ALT/SGPT) 22 U/L (16-63) Alkaline Phosphatase 83 U/L (46-116) Total Protein 5.4 g/dL (6.4-8.2) Albumin 1.4 g/dL (3.4-5.0) Albumin/Globulin Ratio 0.4 (1.0-1.7) Test 10/06/20 11:45 10/06/20 11:47 Activated Partial Thromboplast Time 87 SEC (24-38) Glucose (Fingerstick) 133 mg/dL (70-99) Assessment and Plan Assessmemt and Plan Problems Medical Problems: (1) NSTEMI (non-ST elevated myocardial infarction) Status: Acute (2) Obtundation Status: Acute (3) Respiratory arrest Status: Acute Comment Review of Relevant I have reviewed the following items denise (where applicable) has been applied. Medications: Current Medications Medications (Trade) Dose Ordered Sig/Dru Route PRN Reason Start Time Stop Time Status Last Admin Dose Admin Warfarin Sodium (Coumadin Per Pharmacy) 1 each PRN DAILY PRN MC SEE COMMENTS 10/05/20 14:00 10/06/20 09:32 Warfarin Sodium (Coumadin) 5 mg 1X WARF ONCE PO 10/05/20 16:00 10/05/20 16:01 DC 10/05/20 21:23 Argatroban 50 mg/ Sodium Chloride 50 ml @ 0 mls/hr CONT PRN IV PER PROTOCOL 10/06/20 09:00 10/06/20 09:16 Amiodarone HCl (Cordarone) 400 mg DAILY PO 10/06/20 10:00 10/06/20 11:38 Metoprolol Tartrate (Lopressor) 25 mg BID PO 10/06/20 10:00 10/06/20 11:39 Furosemide (Lasix) 40 mg DAILY IVP 10/06/20 10:00 10/06/20 11:39 Potassium Bicarbonate (Potassium Effervescent Tablet) 20 meq DAILY PEG 10/06/20 10:00 10/06/20 11:37 Justifications for Admission Other Justification Hypoglycemia and altered mental status. FUAD CUTLER MD Oct 06, 2020 13:49
--- NOTE | 2020-10-06 13:59 | NUR ---
SS following up with discharge planning. SS reviewed pt chart and discussed with pt RN. Pt is currently on the vent at 35%. COVID19 negative. Pt had trach placement on 10/05/2020. Pt on Argatroban and Propofol. GI consulted for PEG placement. Pt accepted at [facility], ; fax [phone], pending insurance authorization. [facility] has 21/7 rule. Pt will meet 21/7 guidelines on 10/12/2020. Clinical phoned and faxed to [facility]. SS will continue to follow for discharge planning.
[2020-10-06] MEDS ORDERED: WARFARIN 5 MG TABLET. PO ONE (16:00)
[2020-10-06] MEDS: IV DEXTROSE 5 %-0.45 % NACL 1,000 ML IV SCH (18:20)
[2020-10-06] MEDS: ATORVASTATIN CALCIUM 40 MG TABLET. PO SCH (22:46)
[2020-10-07] VITALS (23 sets, daily range): BP systolic 87–183; BP diastolic 58–108
[2020-10-07 02:04] LABS: PROTHROMBIN TIME PATIENT 26.9 SEC (11.7-14.0)
[2020-10-07] MEDS: ARGATROBAN 50 MG in IV NORMAL SALINE 50ML 50 ML IV PRN (03:45)
[2020-10-07] MEDS: PROPOFOL 100 ML IV PRN ×2 (03:46→21:34)
[2020-10-07] MEDS: CEFEPIME HCL IV Push 2 GM VIAL. IVP SCH ×3 (05:44→22:07)
[2020-10-07] MEDS: INSULIN LISPRO 300 UNITS/3 ML VIAL. SQ SCH ×5 (06:00→23:56)
--- NOTE | 2020-10-07 06:45 | PDOC ---
PULMONARY PROGRESS NOTES DATE: 10/07/20 TIME: 06:43 Subjective on vent support 40%/5 sedaed on propofol on argatroban per cardiology Status post tracheostomy 10/05 Vitals Vital Signs Date Time Temp Pulse Resp B/P (MAP) Pulse Ox O2 Delivery O2 Flow Rate FiO2 10/07/20 05:00 84 13 147/83 (104) 99 Ventilator 10/07/20 04:00 99.0 99.0 Comments ros unable to obtain sedated on vent General: No acute distress HEENT: Other (nc at perrl nose clear orally intubated neck no lad no thyromegaly) Lungs: Other (Intubated) Cardiovascular: S1, S2 Abdomen: Soft, Non-tender, Other (Obese) Extremities: Other (1+ edema) Skin: Warm Labs Laboratory Tests Test 10/05/20 15:04 10/05/20 23:34 10/06/20 05:30 10/06/20 06:33 Glucose (Fingerstick) 144 mg/dL (70-99) 121 mg/dL (70-99) 109 mg/dL (70-99) White Blood Count 4.9 x10^3/uL (4.0-11.0) Red Blood Count 2.81 x10^6/uL (4.30-5.70) Hemoglobin 8.9 g/dL (13.0-17.5) Hematocrit 26.9 % (39.0-53.0) Mean Corpuscular Volume 96 fL (79-100) Mean Corpuscular Hemoglobin 32 pg (25-35) Mean Corpuscular Hemoglobin Concent 33 g/dL (31-37) Red Cell Distribution Width 17.6 % (11.5-14.5) Platelet Count 233 x10^3/uL (140-400) Neutrophils (%) (Auto) 51 % (31-73) Lymphocytes (%) (Auto) 36 % (24-48) Monocytes (%) (Auto) 7 % (0-9) Eosinophils (%) (Auto) 5 % (0-3) Basophils (%) (Auto) 1 % (0-3) Neutrophils # (Auto) 2.5 x10^3/uL (1.8-7.7) Lymphocytes # (Auto) 1.8 x10^3/uL (1.0-4.8) Monocytes # (Auto) 0.4 x10^3/uL (0.0-1.1) Eosinophils # (Auto) 0.3 x10^3/uL (0.0-0.7) Basophils # (Auto) 0.0 x10^3/uL (0.0-0.2) Prothrombin Time 14.5 SEC (11.7-14.0) Prothromb Time International Ratio 1.1 (0.8-1.1) Activated Partial Thromboplast Time 38 SEC (24-38) Sodium Level 143 mmol/L (136-145) Potassium Level 3.5 mmol/L (3.5-5.1) Chloride Level 108 mmol/L (98-107) Carbon Dioxide Level 29 mmol/L (21-32) Anion Gap 6 (6-14) Blood Urea Nitrogen 12 mg/dL (8-26) Creatinine 0.5 mg/dL (0.7-1.3) Estimated GFR (Cockcroft-Gault) 163.5 BUN/Creatinine Ratio 24 (6-20) Glucose Level 116 mg/dL (70-99) Calcium Level 8.1 mg/dL (8.5-10.1) Phosphorus Level 2.3 mg/dL (2.6-4.7) Magnesium Level 1.8 mg/dL (1.8-2.4) Total Bilirubin 0.5 mg/dL (0.2-1.0) Aspartate Amino Transf (AST/SGOT) 18 U/L (15-37) Alanine Aminotransferase (ALT/SGPT) 22 U/L (16-63) Alkaline Phosphatase 83 U/L (46-116) Total Protein 5.4 g/dL (6.4-8.2) Albumin 1.4 g/dL (3.4-5.0) Albumin/Globulin Ratio 0.4 (1.0-1.7) Test 10/06/20 11:45 10/06/20 11:47 10/06/20 18:07 10/06/20 18:20 Activated Partial Thromboplast Time 87 SEC (24-38) 103 SEC (24-38) Glucose (Fingerstick) 133 mg/dL (70-99) 135 mg/dL (70-99) Test 10/07/20 00:40 10/07/20 01:15 10/07/20 05:51 Glucose (Fingerstick) 139 mg/dL (70-99) 136 mg/dL (70-99) Prothrombin Time 26.9 SEC (11.7-14.0) Prothromb Time International Ratio 2.5 (0.8-1.1) Activated Partial Thromboplast Time 103 SEC (24-38) Laboratory Tests Test 10/06/20 11:45 10/06/20 11:47 10/06/20 18:07 10/06/20 18:20 Activated Partial Thromboplast Time 87 SEC (24-38) 103 SEC (24-38) Glucose (Fingerstick) 133 mg/dL (70-99) 135 mg/dL (70-99) Test 10/07/20 00:40 10/07/20 01:15 10/07/20 05:51 Glucose (Fingerstick) 139 mg/dL (70-99) 136 mg/dL (70-99) Prothrombin Time 26.9 SEC (11.7-14.0) Prothromb Time International Ratio 2.5 (0.8-1.1) Activated Partial Thromboplast Time 103 SEC (24-38) Medications Active Scripts Medications Dose Route/Sig Max Daily Dose Days Date Category Amiodarone Hcl 200 Mg Tablet 400 Mg PO DAILY 09/18/20 Rx [Warfarin Per Pharmacy] 1 EACH Each 1 Each MC PRN DAILY PRN 30 09/18/20 Rx Clopidogrel (Clopidogrel Bisulfate) 75 Mg Tablet 75 Mg PO DAILYWBKFT 09/18/20 Rx Glimepiride 4 Mg Tablet 1 Tab PO DAILY 09/13/20 Reported Furosemide 40 Mg Tablet 1 Tab PO BID 09/13/20 Reported Symbicort 160-4.5 Mcg Inhaler (Budesonide/Formoterol Fumarate) 10.2 Gm Hfa.aer.ad 1 Puff INH DAILY 09/13/20 Reported Losartan-Hctz 100-12.5 Mg Tab (Losartan/Hydrochlorothiazide) 1 Each Tablet 1 Tab PO DAILY 09/13/20 Reported Nitrofurantoin [place]-Mcr 100 Mg (Nitrofurantoin Monohyd/M-Cryst) 100 Mg Capsule 1 Cap PO BID 09/13/20 Reported Betamethasone Valerate 60 Ml Lotion 1 TP QHS 09/13/20 Reported Atorvastatin Calcium 40 Mg Tablet 1 Tab PO DAILY 09/13/20 Reported Diltiazem 24Hr Cd (Diltiazem HCl) 240 Mg Cap.er.24h 1 Cap PO DAILY 09/13/20 Reported Nystop (Nystatin) 60 Gm Powder 1 Sudheer TP BID 09/13/20 Reported Humalog (Insulin Lispro) 100 Unit/1 Ml Insuln.pen 0 Units SQ TIDWMEALS 08/06/18 Rx Duoneb 0.5-3(2.5) Mg/3 Ml (Albuterol/Ipratropium) 3 Ml Ampul.neb 3 Ml NEB RTQID 08/06/18 Rx Aspirin 325 Mg Tablet 325 Mg PO DAILYWBKFT 30 07/22/17 Rx Metoprolol Tartrate 25 Mg Tablet 25 Mg PO BID 30 07/22/17 Rx Montelukast Sodium Tablet (Montelukast Sodium) 10 Mg Tablet 10 Mg PO QHS 07/22/17 Rx Gabapentin 600 Mg Tablet 600 Mg PO BID 30 07/22/17 Rx Pepcid (Famotidine) 20 Mg Tablet 20 Mg PO BID 05/17/13 Reported Comments cxr reviewed 1.Improving interstitial prominence, persistent left basilar opacities. ett ok Impression . 1. Acute on chronic respiratory failure secondary to multifactorial etiologies including hypoglycemic encephalopathy. No evidence of new stroke. 2. Possible sepsis--- on antibiotics 3. Hypoglycemia./ encephalopathy 4. The patient with prior history of cerebrovascular accident with left-sided weakness. 5. Underlying chronic obstructive pulmonary disease. 6. Morbid obesity. 7. Peripheral vascular disease. 8. Abnormal CT chest with bibasilar atelectasis. No significant mucus plugging. Tiny pleural effusion seen. 9. Persistent encephalopathy. --ongoing 10. anemia Plan . Updated 10/07/20 Continue current vent support 10450/40/5 decrease sedation start weaning as tolerated Status post tracheostomy. plan to start PS weaning 24 hours post trach Continue ABX monitor HGB, improved Follow CXR/ABG --make changes as needed DVT/GI PPX: warfarin --on hold on argatoban per cardiology ?restart per PCP Awaiting PEG tube placement D/W RN and RT Patient is a DNR Updated 10/06/20 Continue current vent support 10450/40/5 Status post tracheostomy. plan to start PS weaning 24 hours post trach Continue ABX monitor HGB, improved Follow CXR/ABG --make changes as needed DVT/GI PPX: warfarin --on hold restart per PCP Awaiting PEG tube placement D/W RN and RT Patient is a DNR Updated 10/04/20 Continue current vent support 10/450/40/5 attempt pressure support trial, tracheostomy is medically indicated secondary to inability to protect airway,Intubated 3 times. surgery planning trach in am plan to start PS weaning 24 hours post trach Continue ABX monitor HGB, improved Follow CXR/ABG --make changes as needed DVT/GI PPX: warfarin --on hold restart per PCP D/W RN and RT Patient is a DNR Updated 10/03/20 Continue current vent support 10/450/40/5 DC sedation, attempt pressure support trial, tracheostomy is medically indicated secondary to inability to protect airway,Intubated 3 times. surgery consult for tracheostomy Follow CXR/ABG --make changes as needed Continue ABX on cefepime Hemoglobin 6.3 today, hold Coumadin, monitor hemoglobin. Tx per PCP DVT/GI PPX: warfarin --on hold as patient is anemic D/W RN and RT Patient is a DNR Discussed with Dr. Fierro Updated 10/02/20 Continue current vent support 10/450/40/5 DC sedation, attempt pressure support trial, tracheostomy is medically indicated secondary to inability to protect airway,Intubated 3 times. consider surgery consult Follow CXR/ABG --make changes as needed Continue ABX on cefepime Hemoglobin 6.3 today, hold Coumadin, monitor hemoglobin. Tx per PCP DVT/GI PPX: warfarin --on hold as patient is anemic D/W RN and RT Patient is a DNR CC time 30 minutes DESIRE DE LA GARZA MD Oct 07, 2020 06:45
[2020-10-07] MEDS: METOPROLOL TART IMMED RELEASE 25 MG TABLET. PO SCH ×2 (09:00→20:58)
[2020-10-07 09:29] LABS: PROTHROMBIN TIME PATIENT 25.6 SEC (11.7-14.0)
--- NOTE | 2020-10-07 11:25 | PDOC ---
[facility] PROGRESS NOTE Date of Service DOS: DATE: 10/07/20 TIME: 11:22 Chief Complaint Chief Complaint Acute anemia, likely due to acute blood loss due to multiple lab draws and multiple comorbidities. 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 Will determine timing of PEG tube placement before starting warfarin. Hypoglycemia protocol Continue empiric IV antibiotics with concern for aspiration pneumonia Pulmonology consult for vent management IV electrolyte replacement as needed Consider cardiology consult if troponins increase Argatroban for DVT prophylaxis Protonix while on the vent GI prophylaxis N.p.o. Full code Discussed with RN and SW Disposition inpatient management as above Surrogate decision maker is undesignated History of Present Illness History of Present Illness Patient is a 70-year-old male with a recent prolonged hospitalization for STEMI and respiratory failure for which she was treated with arterial thrombolysis for a right leg popliteal artery aneurysm and also had left heart cath with placement of a stent in the LAD and RCA comes in today after he was found obtunded at his care home facility. Apparently according to the nursing facility patient was in his usual state of health and he was conversational but then became altered. His blood glucose was found to be in the 30s. Glucose tabs and glucagon was given in route and his GCS reported at 6. Upon arrival patient's mental status did not improve and he was eventually intubated for airway protection. Of note EMS was bagging the patient through the nasal access. In the ED, patient was placed on a vent and pulmonology was consulted. Patient was also taken to the CT scanner for sanders scanning. Patient was started to wake up on the vent and sedation was ordered. 09/23/20 Patient examined at bedside. Intubated. Not on any sedation but unresponsive. Neurology consult in place. 09/24/20 Patient seen and examined at bedside. Remains intubated he is off sedation but still remains unresponsive. Planning for MRI brain in the morning. Further plan to be determined by MRI. 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 Plan of care discussed with bedside RN 09/25/20: Afebrile, currently breathing on ventilator with FiO2 50%, PEEP 5. Had CODE BLUE in ICU this morning; received 2 rounds of CPR, epinephrine, and atropine with ROSC. I believe MRI will be obtained today, per neurology. I had discussion with Dr. Rubalcava about his very poor prognosis due to multifactorial comorbidities. In our opinion continuing with present aggressive care would be futile. I would recommend that he should be made DNR, and after discussion with Dr. Rubalcava he agrees. Since there is no family and no one to discuss goals of care, we agreed to make patient DNR. Critical care time 30 minutes spent reviewing charts, reviewing labs, imaging, discussion with RN. 09/26/2020: Afebrile. Still on vent, with FiO2 45%, PEEP 5. After discussion with Dr. Rubalcava yesterday, patient was made DNR. In the ED is likely a poor candidate for weaning trials may need trach in near future if no significant improvement. MRI with no acute findings. Continue with pressure support and IV antibiotics. Critical care time 30 minutes reviewing charts, labs, examination, discussion with RN. 09/27/2020: Afebrile. On vent with FiO2 40%, PEEP 5. Potassium 2.8 today, will replace. Warfarin has been resumed. Discussed with pharmacy, will resume as pirin and Plavix. May need tracheostomy by the end of the week if no improvement in mental status. Chest x-ray today showed improving interstitial prominence, persistent left basilar opacities. Continue IV cefepime and supportive care. Critical care time 30 minutes reviewing charts, labs, examination, discussion with RN. 09/28/2020: Afebrile. On ventilator with FiO2 40%, PEEP 5. Warfarin has been resumed; INR 1.3 today. Some morning labs still pending; hemoglobin yesterday 7.3, will continue to monitor. May need tracheostomy at some point if no improvement in mental status. Continue IV cefepime and supportive care. Critical care time 30 minutes reviewing charts, labs, examination, discussion with RN. 09/29/2020: Afebrile. Breathing on vent with FiO2 40%, PEEP 5. INR 1.2 today; pharmacy to help with warfarin dosing. White count within normal range, renal function stable. Spoke with pharmacy about cefepime 1 g every 8 hours dosing; this has been changed to cefepime 2 g every 8 hours. Possible tracheostomy at some point. Critical care time 30 minutes reviewing charts, labs, examination, discussion with RN. 09/30/20: Afebrile. Currently breathing on vent with FiO2 40%, PEEP 5. Continue antibiotics, cefepime 2 g every 8 hours. INR 1.4; continue warfarin dosing per pharmacy. Possible tracheostomy at some point. Critical care time 30 minutes reviewing charts, labs, examination, discussion with RN. 10/01/2020: Febrile overnight with T-max 100.3 F. On ventilator with FiO2 40%, PEEP 5. Continue antibiotics, cefepime 2 g every 8 hours. INR 1.4, still subtherapeutic; continue warfarin dosing per pharmacy. Possible tracheostomy at some point. Critical care time 30 minutes reviewing charts, labs, examination, discussion with RN. 10/02/2020 No acute events overnight. Patient saturating 99% on vent settings of 10/450/40/5. Patient will likely need a trach and PEG at some point. We will hold warfarin and start 2 units PRBC transfusion. Patient's chart, labs, images were reviewed and discussed with RN A total of 32 minutes of critical care time was spent in reviewing chart, labs, and images. Discussed with RN and SW. 10/03/2020 No acute events overnight. Patient saturating 100% on minimal vent settings. No sedation at this point and patient is opening his eyes spontaneously. Not much response or spontaneous movements. Surgery has been consulted for tracheostomy. Patient will also likely need a PEG tube. Prognosis is very poor. Patient has a legal guardian and is signed by 2 physicians for authorizat ion for that. We are currently making decisions for him and at least we had made him DNR. FOBT negative for bloody stools. Continue to trend hemoglobin and once stable will restart anticoagulation likely with heparin drip. Patient's chart, labs, images were reviewed and discussed with RN A total of 40 minutes of critical care time was spent in reviewing chart, labs, and images. Discussed with RN and SW. 10/04/2020 No acute events overnight. Patient saturating 90% on minimal vent settings. T- max 100.4 overnight. Plan for trach tomorrow with surgery. Patient's chart, labs, images were reviewed and discussed with RN 10/05/2020 No acute events overnight. Patient saturating 99% on minimal vent settings. Plan for tracheostomy today. Consent is provided by authorization by 2 physicians due to patient having no close relatives or DPOA. Will resume heparin and warfarin bridging tomorrow after tracheostomy completed. Patient's chart, labs, images were reviewed and discussed with RN A total of 35 minutes of critical care time was spent in reviewing chart, labs, and images. Discussed with RN and SW. 10/07/2020 No acute events overnight. Patient seen and examined bedside. Currently on trach vent. Saturating 99%. Pending further GI evaluation for possible PEG placement after discussing with cardiology whether to continue with Plavix. Can possibly place PEG if patient is only on aspirin and stopping argatroban. Patient's chart, labs, images were reviewed and discussed with RN A total of 31 minutes of critical care time was spent in reviewing chart, labs, and images. Discussed with RN and JENNIFER. Vitals/I&O Vitals/I&O: Vital Signs Date Time Temp Pulse Resp B/P (MAP) Pulse Ox O2 Delivery O2 Flow Rate FiO2 10/07/20 09:33 98 Ventilator 10/07/20 06:00 100 18 176/79 (111) 10/07/20 04:00 99.0 99.0 I & O 10/06/20 10/06/20 10/07/20 15:00 23:00 07:00 Intake Total 300 ml 2774 ml 1110.2 ml Output Total 2850 ml 1700 ml 675 ml Balance -2550 ml 1074 ml 435.2 ml Physical Exam General: No acute distress, Other Heart: Regular rate (SR), Other (distatne heart sounds) Lungs: Other (Tracheostomy) Abdomen: Other (obese) Extremities: No cyanosis, Other (2-3+ bilateral LE pitting edema) Skin: No rashes, No significant lesion Labs Labs: Laboratory Tests Test 10/06/20 11:45 10/06/20 11:47 10/06/20 18:07 10/06/20 18:20 Activated Partial Thromboplast Time 87 SEC (24-38) 103 SEC (24-38) Glucose (Fingerstick) 133 mg/dL (70-99) 135 mg/dL (70-99) Test 10/07/20 00:40 10/07/20 01:15 10/07/20 05:51 10/07/20 08:10 Glucose (Fingerstick) 139 mg/dL (70-99) 136 mg/dL (70-99) Prothrombin Time 26.9 SEC (11.7-14.0) 25.6 SEC (11.7-14.0) Prothromb Time International Ratio 2.5 (0.8-1.1) 2.4 (0.8-1.1) Activated Partial Thromboplast Time 103 SEC (24-38) 102 SEC (24-38) Assessment and Plan Assessmemt and Plan Problems Medical Problems: (1) NSTEMI (non-ST elevated myocardial infarction) Status: Acute (2) Obtundation Status: Acute (3) Respiratory arrest Status: Acute Comment Review of Relevant I have reviewed the following items denise (where applicable) has been applied. Medications: Current Medications Medications (Trade) Dose Ordered Sig/Dru Route PRN Reason Start Time Stop Time Status Last Admin Dose Admin Atorvastatin Calcium (Lipitor) 40 mg QHS PO 10/06/20 21:00 10/06/20 22:46 Justifications for Admission Other Justification Hypoglycemia and altered mental status. FUAD CUTLER MD Oct 07, 2020 11:25
[2020-10-07] MEDS: FUROSEMIDE 40 MG/4 ML VIAL. IVP SCH (11:27)
[2020-10-07] MEDS: POTASSIUM BICARB 20 MEQ EFFERVESCENT TABLET. PEG SCH (11:28)
[2020-10-07] MEDS: CLOPIDOGREL BISULFATE 75 MG TABLET PO SCH (11:29)
[2020-10-07] MEDS: AMIODARONE HCL 200 MG TABLET. PO SCH (11:29)
[2020-10-07] MEDS: PANTOPRAZOLE IV PUSH 40 MG VIAL. IVP SCH (11:34)
[2020-10-07] MEDS: IV DEXTROSE 5 %-0.45 % NACL 1,000 ML IV SCH (14:00)
[2020-10-07] MEDS: ATORVASTATIN CALCIUM 40 MG TABLET. PO SCH (20:58)
[2020-10-08] VITALS (25 sets, daily range): BP systolic 86–149; BP diastolic 53–85
[2020-10-08] MEDS: ARGATROBAN 50 MG in IV NORMAL SALINE 50ML 50 ML IV PRN ×2 (04:29→18:21)
[2020-10-08] MEDS: PROPOFOL 100 ML IV PRN ×3 (05:24→18:21)
[2020-10-08] MEDS: CEFEPIME HCL IV Push 2 GM VIAL. IVP SCH ×3 (05:50→21:17)
[2020-10-08 05:51] LABS: PROTHROMBIN TIME PATIENT 20.4 SEC (11.7-14.0)
[2020-10-08] MEDS: INSULIN LISPRO 300 UNITS/3 ML VIAL. SQ SCH ×3 (06:00→18:00)
--- NOTE | 2020-10-08 07:31 | PDOC ---
PULMONARY PROGRESS NOTES DATE: 10/08/20 TIME: 07:29 Subjective on vent support 35%/5 sedaed on propofol on argatroban per cardiology Status post tracheostomy 10/05 no weaning yesterday Vitals Vital Signs Date Time Temp Pulse Resp B/P (MAP) Pulse Ox O2 Delivery O2 Flow Rate FiO2 10/08/20 07:22 100 Ventilator 10/08/20 06:00 83 13 104/70 (81) 10/08/20 04:00 98.8 98.8 Comments ros unable to obtain sedated on vent General: No acute distress HEENT: Other (nc at perrl nose clear orally intubated neck no lad no thyromegaly) Lungs: Other (Tracheostomy) Cardiovascular: S1, S2 Abdomen: Soft, Non-tender, Other (Obese) Extremities: Other (1+ edema) Skin: Warm Labs Laboratory Tests Test 10/06/20 11:45 10/06/20 11:47 10/06/20 18:07 10/06/20 18:20 Activated Partial Thromboplast Time 87 SEC (24-38) 103 SEC (24-38) Glucose (Fingerstick) 133 mg/dL (70-99) 135 mg/dL (70-99) Test 10/07/20 00:40 10/07/20 01:15 10/07/20 05:51 10/07/20 08:10 Glucose (Fingerstick) 139 mg/dL (70-99) 136 mg/dL (70-99) Prothrombin Time 26.9 SEC (11.7-14.0) 25.6 SEC (11.7-14.0) Prothromb Time International Ratio 2.5 (0.8-1.1) 2.4 (0.8-1.1) Activated Partial Thromboplast Time 103 SEC (24-38) 102 SEC (24-38) Test 10/07/20 11:41 10/07/20 17:02 10/07/20 22:00 10/07/20 23:43 Glucose (Fingerstick) 135 mg/dL (70-99) 123 mg/dL (70-99) Activated Partial Thromboplast Time 85 SEC (24-38) 78 SEC (24-38) Test 10/08/20 05:20 10/08/20 06:40 Platelet Count 231 x10^3/uL (140-400) Prothrombin Time 20.4 SEC (11.7-14.0) Prothromb Time International Ratio 1.8 (0.8-1.1) Activated Partial Thromboplast Time 88 SEC (24-38) Glucose (Fingerstick) 139 mg/dL (70-99) Laboratory Tests Test 10/07/20 08:10 10/07/20 11:41 10/07/20 17:02 10/07/20 22:00 Prothrombin Time 25.6 SEC (11.7-14.0) Prothromb Time International Ratio 2.4 (0.8-1.1) Activated Partial Thromboplast Time 102 SEC (24-38) 85 SEC (24-38) 78 SEC (24-38) Glucose (Fingerstick) 135 mg/dL (70-99) Test 10/07/20 23:43 10/08/20 05:20 10/08/20 06:40 Glucose (Fingerstick) 123 mg/dL (70-99) 139 mg/dL (70-99) Platelet Count 231 x10^3/uL (140-400) Prothrombin Time 20.4 SEC (11.7-14.0) Prothromb Time International Ratio 1.8 (0.8-1.1) Activated Partial Thromboplast Time 88 SEC (24-38) Medications Active Scripts Medications Dose Route/Sig Max Daily Dose Days Date Category Amiodarone Hcl 200 Mg Tablet 400 Mg PO DAILY 09/18/20 Rx [Warfarin Per Pharmacy] 1 EACH Each 1 Each MC PRN DAILY PRN 30 09/18/20 Rx Clopidogrel (Clopidogrel Bisulfate) 75 Mg Tablet 75 Mg PO DAILYWBKFT 09/18/20 Rx Glimepiride 4 Mg Tablet 1 Tab PO DAILY 09/13/20 Reported Furosemide 40 Mg Tablet 1 Tab PO BID 09/13/20 Reported Symbicort 160-4.5 Mcg Inhaler (Budesonide/Formoterol Fumarate) 10.2 Gm Hfa.aer.ad 1 Puff INH DAILY 09/13/20 Reported Losartan-Hctz 100-12.5 Mg Tab (Losartan/Hydrochlorothiazide) 1 Each Tablet 1 Tab PO DAILY 09/13/20 Reported Nitrofurantoin [place]-Mcr 100 Mg (Nitrofurantoin Monohyd/M-Cryst) 100 Mg Capsule 1 Cap PO BID 09/13/20 Reported Betamethasone Valerate 60 Ml Lotion 1 TP QHS 09/13/20 Reported Atorvastatin Calcium 40 Mg Tablet 1 Tab PO DAILY 09/13/20 Reported Diltiazem 24Hr Cd (Diltiazem HCl) 240 Mg Cap.er.24h 1 Cap PO DAILY 09/13/20 Reported Nystop (Nystatin) 60 Gm Powder 1 Sudheer TP BID 09/13/20 Reported Humalog (Insulin Lispro) 100 Unit/1 Ml Insuln.pen 0 Units SQ TIDWMEALS 30 08/06/18 Rx Duoneb 0.5-3(2.5) Mg/3 Ml (Albuterol/Ipratropium) 3 Ml Ampul.neb 3 Ml NEB RTQID 30 08/06/18 Rx Aspirin 325 Mg Tablet 325 Mg PO DAILYWBKFT 30 07/22/17 Rx Metoprolol Tartrate 25 Mg Tablet 25 Mg PO BID 30 07/22/17 Rx Montelukast Sodium Tablet (Montelukast Sodium) 10 Mg Tablet 10 Mg PO QHS 07/22/17 Rx Gabapentin 600 Mg Tablet 600 Mg PO BID 30 07/22/17 Rx Pepcid (Famotidine) 20 Mg Tablet 20 Mg PO BID 05/17/13 Reported Comments cxr reviewed 1.Improving interstitial prominence, persistent left basilar opacities. ett ok Impression . 1. Acute on chronic respiratory failure secondary to multifactorial etiologies including hypoglycemic encephalopathy. No evidence of new stroke. 2. Possible sepsis--- on antibiotics 3. Hypoglycemia./ encephalopathy 4. The patient with prior history of cerebrovascular accident with left-sided weakness. 5. Underlying chronic obstructive pulmonary disease. 6. Morbid obesity. 7. Peripheral vascular disease. 8. Abnormal CT chest with bibasilar atelectasis. No significant mucus plugging. Tiny pleural effusion seen. 9. Persistent encephalopathy. --ongoing 10. anemia Plan . Updated 10/08/20 Continue current vent support 10450/35/5 decrease sedation start weaning as tolerated Status post tracheostomy 10/05. Continue ABX monitor HGB, improved Follow CXR/ABG --make changes as needed DVT/GI PPX: warfarin --on hold on argatroban per cardiology Awaiting PEG tube placement per gi D/W RN and RT Patient is a DNR Updated 10/07/20 Continue current vent support 10/450/40/5 decrease sedation start weaning as tolerated Status post tracheostomy. plan to start PS weaning 24 hours post trach Continue ABX monitor HGB, improved Follow CXR/ABG --make changes as needed DVT/GI PPX: warfarin --on hold on argatoban per cardiology ?restart per PCP Awaiting PEG tube placement D/W RN and RT Patient is a DNR Updated 10/06/20 Continue current vent support 10/450/40/5 Status post tracheostomy. plan to start PS weaning 24 hours post trach Continue ABX monitor HGB, improved Follow CXR/ABG --make changes as needed DVT/GI PPX: warfarin --on hold restart per PCP Awaiting PEG tube placement D/W RN and RT Patient is a DNR Updated 10/04/20 Continue current vent support 10/450/40/5 attempt pressure support trial, tracheostomy is medically indicated secondary to inability to protect airway,Intubated 3 times. surgery planning trach in am plan to start PS weaning 24 hours post trach Continue ABX monitor HGB, improved Follow CXR/ABG --make changes as needed DVT/GI PPX: warfarin --on hold restart per PCP D/W RN and RT Patient is a DNR Updated 10/03/20 Continue current vent support 10/450/40/5 DC sedation, attempt pressure support trial, tracheostomy is medically indicated secondary to inability to protect airway,Intubated 3 times. surgery consult for tracheostomy Follow CXR/ABG --make changes as needed Continue ABX on cefepime Hemoglobin 6.3 today, hold Coumadin, monitor hemoglobin. Tx per PCP DVT/GI PPX: warfarin --on hold as patient is anemic D/W RN and RT Patient is a DNR Discussed with Dr. Fierro Updated 10/02/20 Continue current vent support 10/450/40/5 DC sedation, attempt pressure support trial, tracheostomy is medically indicated secondary to inability to protect airway,Intubated 3 times. consider surgery consult Follow CXR/ABG --make changes as needed Continue ABX on cefepime Hemoglobin 6.3 today, hold Coumadin, monitor hemoglobin. Tx per PCP DVT/GI PPX: warfarin --on hold as patient is anemic D/W RN and RT Patient is a DNR CC time 30 minutes DESIRE DE LA GARZA MD Oct 08, 2020 07:31
[2020-10-08] MEDS: IV DEXTROSE 5 %-0.45 % NACL 1,000 ML IV SCH (10:13)
[2020-10-08] MEDS: FUROSEMIDE 40 MG/4 ML VIAL. IVP SCH (10:36)
[2020-10-08] MEDS: PANTOPRAZOLE IV PUSH 40 MG VIAL. IVP SCH (10:36)
[2020-10-08] MEDS: POTASSIUM BICARB 20 MEQ EFFERVESCENT TABLET. PEG SCH (10:37)
[2020-10-08] MEDS: METOPROLOL TART IMMED RELEASE 25 MG TABLET. PO SCH ×2 (10:38→20:29)
[2020-10-08] MEDS: AMIODARONE HCL 200 MG TABLET. PO SCH (10:38)
[2020-10-08] MEDS: CLOPIDOGREL BISULFATE 75 MG TABLET PO SCH (10:39)
--- NOTE | 2020-10-08 11:15 | PDOC ---
[facility] PROGRESS NOTE Date of Service DOS: DATE: 10/08/20 TIME: 11:13 Chief Complaint Chief Complaint Acute anemia, likely due to acute blood loss due to multiple lab draws and multiple comorbidities. 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 Will determine timing of PEG tube placement before starting warfarin. Hypoglycemia protocol Continue empiric IV antibiotics with concern for aspiration pneumonia Pulmonology consult for vent management IV electrolyte replacement as needed Consider cardiology consult if troponins increase Argatroban for DVT prophylaxis Protonix while on the vent GI prophylaxis N.p.o. Full code Discussed with RN and SW Disposition inpatient management as above Surrogate decision maker is undesignated History of Present Illness History of Present Illness Patient is a 70-year-old male with a recent prolonged hospitalization for STEMI and respiratory failure for which she was treated with arterial thrombolysis for a right leg popliteal artery aneurysm and also had left heart cath with placement of a stent in the LAD and RCA comes in today after he was found obtunded at his retirement facility. Apparently according to the nursing facility patient was in his usual state of health and he was conversational but then became altered. His blood glucose was found to be in the 30s. Glucose tabs and glucagon was given in route and his GCS reported at 6. Upon arrival patient's mental status did not improve and he was eventually intubated for airway protection. Of note EMS was bagging the patient through the nasal access. In the ED, patient was placed on a vent and pulmonology was consulted. Patient was also taken to the CT scanner for sanders scanning. Patient was started to wake up on the vent and sedation was ordered. 09/23/20 Patient examined at bedside. Intubated. Not on any sedation but unresponsive. Neurology consult in place. 09/24/20 Patient seen and examined at bedside. Remains intubated he is off sedation but still remains unresponsive. Planning for MRI brain in the morning. Further plan to be determined by MRI. 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 Plan of care discussed with bedside RN 09/25/20: Afebrile, currently breathing on ventilator with FiO2 50%, PEEP 5. Had CODE BLUE in ICU this morning; received 2 rounds of CPR, epinephrine, and atropine with ROSC. I believe MRI will be obtained today, per neurology. I had discussion with Dr. Rubalcava about his very poor prognosis due to multifactorial comorbidities. In our opinion continuing with present aggressive care would be futile. I would recommend that he should be made DNR, and after discussion with Dr. Rubalcava he agrees. Since there is no family and no one to discuss goals of care, we agreed to make patient DNR. Critical care time 30 minutes spent reviewing charts, reviewing labs, imaging, discussion with RN. 09/26/2020: Afebrile. Still on vent, with FiO2 45%, PEEP 5. After discussion with Dr. Rubalcava yesterday, patient was made DNR. In the ED is likely a poor candidate for weaning trials may need trach in near future if no significant improvement. MRI with no acute findings. Continue with pressure support and IV antibiotics. Critical care time 30 minutes reviewing charts, labs, examination, discussion with RN. 09/27/2020: Afebrile. On vent with FiO2 40%, PEEP 5. Potassium 2.8 today, will replace. Warfarin has been resumed. Discussed with pharmacy, will resume as pirin and Plavix. May need tracheostomy by the end of the week if no improvement in mental status. Chest x-ray today showed improving interstitial prominence, persistent left basilar opacities. Continue IV cefepime and supportive care. Critical care time 30 minutes reviewing charts, labs, examination, discussion with RN. 09/28/2020: Afebrile. On ventilator with FiO2 40%, PEEP 5. Warfarin has been resumed; INR 1.3 today. Some morning labs still pending; hemoglobin yesterday 7.3, will continue to monitor. May need tracheostomy at some point if no improvement in mental status. Continue IV cefepime and supportive care. Critical care time 30 minutes reviewing charts, labs, examination, discussion with RN. 09/29/2020: Afebrile. Breathing on vent with FiO2 40%, PEEP 5. INR 1.2 today; pharmacy to help with warfarin dosing. White count within normal range, renal function stable. Spoke with pharmacy about cefepime 1 g every 8 hours dosing; this has been changed to cefepime 2 g every 8 hours. Possible tracheostomy at some point. Critical care time 30 minutes reviewing charts, labs, examination, discussion with RN. 09/30/20: Afebrile. Currently breathing on vent with FiO2 40%, PEEP 5. Continue antibiotics, cefepime 2 g every 8 hours. INR 1.4; continue warfarin dosing per pharmacy. Possible tracheostomy at some point. Critical care time 30 minutes reviewing charts, labs, examination, discussion with RN. 10/01/2020: Febrile overnight with T-max 100.3 F. On ventilator with FiO2 40%, PEEP 5. Continue antibiotics, cefepime 2 g every 8 hours. INR 1.4, still subtherapeutic; continue warfarin dosing per pharmacy. Possible tracheostomy at some point. Critical care time 30 minutes reviewing charts, labs, examination, discussion with RN. 10/02/2020 No acute events overnight. Patient saturating 99% on vent settings of 10/450/40/5. Patient will likely need a trach and PEG at some point. We will hold warfarin and start 2 units PRBC transfusion. Patient's chart, labs, images were reviewed and discussed with RN A total of 32 minutes of critical care time was spent in reviewing chart, labs, and images. Discussed with RN and SW. 10/03/2020 No acute events overnight. Patient saturating 100% on minimal vent settings. No sedation at this point and patient is opening his eyes spontaneously. Not much response or spontaneous movements. Surgery has been consulted for tracheostomy. Patient will also likely need a PEG tube. Prognosis is very poor. Patient has a legal guardian and is signed by 2 physicians for authorizat ion for that. We are currently making decisions for him and at least we had made him DNR. FOBT negative for bloody stools. Continue to trend hemoglobin and once stable will restart anticoagulation likely with heparin drip. Patient's chart, labs, images were reviewed and discussed with RN A total of 40 minutes of critical care time was spent in reviewing chart, labs, and images. Discussed with RN and JENNIFER. 10/04/2020 No acute events overnight. Patient saturating 90% on minimal vent settings. T- max 100.4 overnight. Plan for trach tomorrow with surgery. Patient's chart, labs, images were reviewed and discussed with RN 10/05/2020 No acute events overnight. Patient saturating 99% on minimal vent settings. Plan for tracheostomy today. Consent is provided by authorization by 2 physicians due to patient having no close relatives or DPOA. Will resume heparin and warfarin bridging tomorrow after tracheostomy completed. Patient's chart, labs, images were reviewed and discussed with RN A total of 35 minutes of critical care time was spent in reviewing chart, labs, and images. Discussed with RN and JENNIFER. 10/07/2020 No acute events overnight. Patient seen and examined bedside. Currently on trach vent. Saturating 99%. Pending further GI evaluation for possible PEG placement after discussing with cardiology whether to continue with Plavix. Can possibly place PEG if patient is only on aspirin and stopping argatroban. Patient's chart, labs, images were reviewed and discussed with RN A total of 31 minutes of critical care time was spent in reviewing chart, labs, and images. Discussed with RN and JENNIFER. 10/08/2020 No acute events overnight. Patient continues to be on trach mechanical vent. Saturating 100%. Pending decision from GI whether to proceed with PEG placement depending on the type of anticoagulation patient will be on. Patient's chart, labs, images were reviewed and discussed with RN A total of 35 minutes of critical care time was spent in reviewing chart, labs, and images. Discussed with RN and JENNIFER. Vitals/I&O Vitals/I&O: Vital Signs Date Time Temp Pulse Resp B/P (MAP) Pulse Ox O2 Delivery O2 Flow Rate FiO2 10/08/20 10:38 79 109/64 10/08/20 09:36 100 Ventilator 10/08/20 08:06 11 10/08/20 07:00 98.1 98.1 I & O 10/07/20 10/07/20 10/08/20 15:00 23:00 07:00 Intake Total 450 ml 1628 ml 2511.44 ml Output Total 2320 ml 1210 ml 710 ml Balance -1870 ml 418 ml 1801.44 ml Physical Exam General: No acute distress, Other Heart: Regular rate (SR), Other (distatne heart sounds) Lungs: Other (Tracheostomy) Abdomen: Other (obese) Extremities: No cyanosis, Other (2-3+ bilateral LE pitting edema) Skin: No rashes, No significant lesion Labs Labs: Laboratory Tests Test 10/07/20 11:41 10/07/20 17:02 10/07/20 22:00 10/07/20 23:43 Glucose (Fingerstick) 135 mg/dL (70-99) 123 mg/dL (70-99) Activated Partial Thromboplast Time 85 SEC (24-38) 78 SEC (24-38) Test 10/08/20 05:20 10/08/20 06:40 Platelet Count 231 x10^3/uL (140-400) Prothrombin Time 20.4 SEC (11.7-14.0) Prothromb Time International Ratio 1.8 (0.8-1.1) Activated Partial Thromboplast Time 88 SEC (24-38) Glucose (Fingerstick) 139 mg/dL (70-99) Assessment and Plan Assessmemt and Plan Problems Medical Problems: (1) NSTEMI (non-ST elevated myocardial infarction) Status: Acute (2) Obtundation Status: Acute (3) Respiratory arrest Status: Acute Comment Review of Relevant I have reviewed the following items denise (where applicable) has been applied. Justifications for Admission Other Justification Hypoglycemia and altered mental status. FUAD CUTLER MD Oct 08, 2020 11:15
[2020-10-08] MEDS: ATORVASTATIN CALCIUM 40 MG TABLET. PO SCH (21:00)
[2020-10-09] VITALS (24 sets, daily range): BP systolic 96–154; BP diastolic 47–98
[2020-10-09] MEDS: PROPOFOL 100 ML IV PRN ×2 (00:05→04:43)
[2020-10-09] MEDS: CEFEPIME HCL IV Push 2 GM VIAL. IVP SCH ×3 (05:54→17:41)
[2020-10-09] MEDS: IV DEXTROSE 5 %-0.45 % NACL 1,000 ML IV SCH ×2 (05:54→22:33)
[2020-10-09] MEDS: INSULIN LISPRO 300 UNITS/3 ML VIAL. SQ SCH ×5 (05:59→23:30)
[2020-10-09 07:21] LABS: PROTHROMBIN TIME PATIENT 23.4 SEC (11.7-14.0)
--- NOTE | 2020-10-09 08:28 | PDOC ---
[facility] PROGRESS NOTE Date of Service DOS: DATE: 10/09/20 TIME: 08:19 Chief Complaint Chief Complaint Acute anemia, likely due to acute blood loss due to multiple lab draws and multiple comorbidities. 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 Will determine timing of PEG tube placement before starting warfarin. Hypoglycemia protocol Continue empiric IV antibiotics with concern for aspiration pneumonia Pulmonology consult for vent management IV electrolyte replacement as needed Consider cardiology consult if troponins increase Argatroban for DVT prophylaxis Protonix while on the vent GI prophylaxis N.p.o. Full code Discussed with RN and SW Disposition inpatient management as above Surrogate decision maker is undesignated History of Present Illness History of Present Illness Mr Andrews is a 70-year-old male with a recent prolonged hospitalization for STEMI and respiratory failure for which she was treated with arterial thrombolysis for a right leg popliteal artery aneurysm and also had left heart cath with placement of a stent in the LAD and RCA comes in today after he was found obtunded at his [facility] facility. Apparently according to the nursing facility patient was in his usual state of health and he was conversational but then became altered. His blood glucose was found to be in the 30s. Glucose tabs and glucagon was given in route and his GCS reported at 6. Upon arrival patient's mental status did not improve and he was eventually intubated for airway protection. Of note EMS was bagging the patient through the nasal access. In the ED, patient was placed on a vent and pulmonology was consulted. Patient was also taken to the CT scanner for sanders scanning. Patient was started to wake up on the vent and sedation was ordered. 09/23: Patient examined at bedside. Intubated. Not on any sedation but unresponsive. Neurology consult in place. 09/24: Patient seen and examined at bedside. Remains intubated he is off sedation but still remains unresponsive. Planning for MRI brain in the morning. Further plan to be determined by MRI. 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 09/25: Afebrile, currently breathing on ventilator with FiO2 50%, PEEP 5. Had CODE BLUE in ICU this morning; received 2 rounds of CPR, epinephrine, and atropine with ROSC. MRI brain negative. Made DNR, and after discussion with Dr. Rubalcava he agrees. 09/26:: Afebrile. Still on vent, with FiO2 45%, PEEP 5. After discussion with Dr. Rubalcava yesterday, patient was made DNR. In the ED is likely a poor candidate for weaning trials may need trach in near future if no significant improvement. 09/27:: Afebrile. On vent with FiO2 40%, PEEP 5. Potassium 2.8 today, will replace. Warfarin has been resumed. Discussed with pharmacy, will resume aspirin and Plavix. May need tracheostomy by the end of the week if no improvement in mental status. 09/28:: Afebrile. On ventilator with FiO2 40%, PEEP 5. Warfarin has been resumed; INR 1.3 today. Some morning labs still pending; hemoglobin yesterday 7.3, will continue to monitor. Continue IV cefepime and supportive care. 09/29: Afebrile. Breathing on vent with FiO2 40%, PEEP 5. INR 1.2 today; pharm acy to help with warfarin dosing. White count within normal range, renal function stable. Spoke with pharmacy about cefepime 1 g every 8 hours dosing; this has been changed to cefepime 2 g every 8 hours. 09/30: Afebrile. Currently breathing on vent with FiO2 40%, PEEP 5. Continue antibiotics, cefepime 2 g every 8 hours. INR 1.4; continue warfarin dosing per pharmacy. Possible tracheostomy at some point. Critical care time 30 minutes reviewing charts, labs, examination, discussion with RN. 10/01: T-max 100.3 F. On ventilator with FiO2 40%, PEEP 5. Continue antibiotics, cefepime 2 g every 8 hours. INR 1.4, still subtherapeutic; continue warfarin dosing per pharmacy. Possible tracheostomy at some point. 10/02: No acute events overnight. Patient saturating 99% on vent settings of 10/450/40/5. Patient will likely need a trach and PEG at some point. We will hold warfarin and start 2 units PRBC transfusion. Patient's chart, labs, images were reviewed and discussed with RN 10/03: No acute events overnight. Patient sat 100% on minimal vent settings. No sedation at this point and patient is opening his eyes spontaneously. Not much response or spontaneous movements. Surgery has been consulted for tracheostomy. Patient will also likely need a PEG tube. 10/04: No acute events overnight. Patient saturating 90% on minimal vent settings. T-max 100.4 overnight. Plan for trach tomorrow with surgery. Patient's chart, labs, images were reviewed and discussed with RN 10/05: No acute events overnight. Patient saturating 99% on minimal vent settings. Plan for tracheostomy today. Consent is provided by authorization by 2 physicians due to patient having no close relatives or DPOA. Will resume heparin and warfarin bridging tomorrow after tracheostomy 10/07: No acute events overnight. Patient seen and examined bedside. On trach vent. Saturating 99%. Pending GI evaluation for possible PEG placement after discussing with cardiology whether to continue with Plavix. Possibly place PEG if patient is only on aspirin and stopping argatroban. 10/08: No acute events overnight. Patient continues to be on trach mechanical vent. Saturating 100%. Pending decision from GI whether to proceed with PEG placement depending on the type of anticoagulation patient will be on. No overnight events. On trach with vent support 40% FiO2 PEEP of 5. Currently argatroban and propofol for minimal sedation. When sedation is weaned he has no meaningful movements but has pulled at his tracheostomy site. Unable to hold plavix due to recently placed stents. Vitals/I&O Vitals/I&O: Vital Signs Date Time Temp Pulse Resp B/P (MAP) Pulse Ox O2 Delivery O2 Flow Rate FiO2 10/09/20 07:00 98.6 79 14 105/58 (74) 100 Ventilator 98.6 I & O 10/08/20 10/08/20 10/09/20 15:00 23:00 07:00 Intake Total 200 ml 2060 ml 2197 ml Output Total 1010 ml 1100 ml 575 ml Balance -810 ml 960 ml 1622 ml Physical Exam General: No acute distress, Other Heart: Regular rate (SR), Other (distatne heart sounds) Lungs: Other (Tracheostomy) Abdomen: Other (obese) Extremities: No cyanosis, Other (2-3+ bilateral LE pitting edema) Skin: No rashes, No significant lesion Labs Labs: Laboratory Tests Test 10/08/20 13:23 10/09/20 00:06 10/09/20 05:58 10/09/20 06:00 Glucose (Fingerstick) 135 mg/dL (70-99) 135 mg/dL (70-99) 126 mg/dL (70-99) Prothrombin Time 23.4 SEC (11.7-14.0) Prothromb Time International Ratio 2.1 (0.8-1.1) Activated Partial Thromboplast Time 100 SEC (24-38) Assessment and Plan Assessmemt and Plan Problems Medical Problems: (1) NSTEMI (non-ST elevated myocardial infarction) Status: Acute (2) Obtundation Status: Acute (3) Respiratory arrest Status: Acute Comment Review of Relevant I have reviewed the following items denise (where applicable) has been applied. Justifications for Admission Other Justification Hypoglycemia and altered mental status. JARRED SINGH MD Oct 09, 2020 08:28
--- NOTE | 2020-10-09 08:46 | PDOC ---
PROGRESS NOTES Date of Service DATE: 10/09/20 TIME: 08:45 Assessment Problems Medical Problems: (1) NSTEMI (non-ST elevated myocardial infarction) Status: Acute (2) Obtundation Status: Acute (3) Respiratory arrest Status: Acute Found obtunded at [facility]U, admitted 09/22, unresponsive, hypoglycemic, no new stroke on MRI CODE BLUE on 09/26 Last admit had prolonged encephalopathy following the development of cardiogenic shock, STEMI, with negative EEG and CT head Remote history of seizures Critical illness neuropathy/myopathy Respiratory failure Last admit and this admit: septic shock, leukocytosis, lactic acidosis, acute kidney injury, 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 EOMI. CN: no focal findings. Muscle tone: normal. Muscle strength: Slight spontaneous movements DTR: 1+ Plantar reflex: Silent Gait: not examined Sensory exam: Not testable Cerebellar: not testable Review of Relevant I have reviewed the following items denise (where applicable) has been applied. Labs Laboratory Tests Test 10/07/20 11:41 10/07/20 17:02 10/07/20 22:00 10/07/20 23:43 Glucose (Fingerstick) 135 mg/dL (70-99) 123 mg/dL (70-99) Activated Partial Thromboplast Time 85 SEC (24-38) 78 SEC (24-38) Test 10/08/20 05:20 10/08/20 06:40 10/08/20 13:23 10/09/20 00:06 Platelet Count 231 x10^3/uL (140-400) Prothrombin Time 20.4 SEC (11.7-14.0) Prothromb Time International Ratio 1.8 (0.8-1.1) Activated Partial Thromboplast Time 88 SEC (24-38) Glucose (Fingerstick) 139 mg/dL (70-99) 135 mg/dL (70-99) 135 mg/dL (70-99) Test 10/09/20 05:58 10/09/20 06:00 Glucose (Fingerstick) 126 mg/dL (70-99) Prothrombin Time 23.4 SEC (11.7-14.0) Prothromb Time International Ratio 2.1 (0.8-1.1) Activated Partial Thromboplast Time 100 SEC (24-38) Laboratory Tests Test 10/08/20 13:23 10/09/20 00:06 10/09/20 05:58 10/09/20 06:00 Glucose (Fingerstick) 135 mg/dL (70-99) 135 mg/dL (70-99) 126 mg/dL (70-99) Prothrombin Time 23.4 SEC (11.7-14.0) Prothromb Time International Ratio 2.1 (0.8-1.1) Activated Partial Thromboplast Time 100 SEC (24-38) Medications Current Medications Fentanyl Citrate 30 ml @ 0 mls/hr CONT PRN IV SEE PROTOCOL; Start 09/22/20 at 09:45 Propofol 100 ml @ 0 mls/hr CONT PRN IV PER PROTOCOL Last administered on 09/22/20at 10:30; Start 09/22/20 at 09:45; Stop 09/26/20 at 20:12; Status DC Fentanyl Citrate (Fentanyl 2ml Vial) 25 mcg PRN Q1HR PRN IV SEE COMMENTS; Start 09/22/20 at 09:45 Fentanyl Citrate (Fentanyl 2ml Vial) 50 mcg PRN Q1HR PRN IV SEE COMMENTS Last administered on 10/03/20at 01:22; Start 09/22/20 at 09:45 Chlorhexidine Gluconate (Peridex) 15 ml BID MM ; Start 09/22/20 at 10:00; Stop 09/22/20 at 19:54; Status DC Midazolam HCl (Versed) 2 mg 1X ONCE IV ; Start 09/22/20 at 10:30; Stop 09/22/20 at 10:31; Status DC Iohexol (Omnipaque 300 Mg/ml) 75 ml 1X ONCE IV Last administered on 09/22/20at 11:06; Start 09/22/20 at 10:45; Stop 09/22/20 at 10:46; Status DC Info (CONTRAST GIVEN -- Rx MONITORING) 1 each PRN DAILY PRN MC SEE COMMENTS; Start 09/22/20 at 10:45; Stop 09/24/20 at 10:44; Status DC Potassium Chloride/Water 100 ml @ 100 mls/hr Q1H IV Last administered on 09/22/20at 20:27; Start 09/22/20 at 15:00; Stop 09/22/20 at 18:59; Status DC Cefepime HCl (Maxipime) 1 gm Q8HRS IVP Last administered on 09/29/20at 05:52; Start 09/22/20 at 14:00; Stop 09/29/20 at 10:32; Status DC Sennosides (Senna) 17.2 mg PRN BID PRN PO CONSTIPATION; Start 09/22/20 at 14:00 Docusate Sodium (Colace) 100 mg PRN DAILY PRN PO HARD STOOLS; Start 09/22/20 at 14:00; Stop 09/22/20 at 14:00; Status DC Ondansetron HCl (Zofran) 4 mg PRN Q6HRS PRN IVP NAUSEA/VOMITING, 1ST CHOICE; Start 09/22/20 at 14:00 Insulin Human Lispro (HumaLOG) 0-7 UNITS Q6HRS SQ Last administered on 10/04/20at 18:26; Start 09/22/20 at 18:00 Dextrose (Dextrose 50%-Water Syringe) 12.5 gm PRN Q15MIN PRN IV SEE COMMENTS Last administered on 09/22/20at 17:47; Start 09/22/20 at 14:00 Dextrose/Sodium Chloride 1,000 ml @ 50 mls/hr Q20H IV Last administered on 10/09/20at 05:54; Start 09/22/20 at 14:00 Acetaminophen (Tylenol) 650 mg PRN Q4HRS PRN PO TEMP OVER 100.4F OR MILD PAIN Last administered on 09/23/20at 00:20; Start 09/22/20 at 14:00; Stop 09/23/20 at 16:24; Status DC Enoxaparin Sodium (Lovenox 40mg Syringe) 40 mg Q24H SQ ; Start 09/22/20 at 14:00; Status UNV Pantoprazole Sodium (PROTONIX VIAL for IV PUSH) 40 mg DAILY IVP Last administered on 10/08/20at 10:36; Start 09/23/20 at 09:00 Prochlorperazine Edisylate (Compazine) 10 mg PRN Q6HRS PRN IV NAUSEA/VOMITING, 2ND CHOICE; Start 09/22/20 at 14:00 Etomidate (Amidate) 20 mg STK-MED ONCE IV ; Start 09/22/20 at 17:46; Stop 09/22/20 at 17:46; Status DC Rocuronium Collins (Zemuron) 50 mg STK-MED ONCE .ROUTE ; Start 09/22/20 at 17:46; Stop 09/22/20 at 17:47; Status DC Norepinephrine Bitartrate 8 mg/ Dextrose 258 ml @ 21.769 mls/ hr CONT PRN IV PER PROTOCOL Last administered on 09/24/20at 13:20; Start 09/22/20 at 18:15 Potassium Chloride/Water 100 ml @ 100 mls/hr Q1H IV Last administered on 09/23/20at 14:30; Start 09/23/20 at 07:00; Stop 09/23/20 at 14:59; Status DC Acetaminophen (Tylenol) 650 mg PRN Q6HRS PRN PEG MILD PAIN / TEMP > 100.3'F Last administered on 09/23/20at 16:34; Start 09/23/20 at 16:30 Warfarin Sodium (Coumadin Per Pharmacy) 1 each PRN DAILY PRN MC SEE COMMENTS Last administered on 10/01/20at 12:32; Start 09/24/20 at 12:30; Stop 10/02/20 at 05:55; Status DC Warfarin Sodium (Coumadin) 5 mg 1X WARF ONCE PO Last administered on 09/24/20at 17:42; Start 09/24/20 at 16:00; Stop 09/24/20 at 16:01; Status DC Warfarin Sodium (Coumadin - No Dose Today) 1 each 1X WARF ONCE MC ; Start 09/25/20 at 16:00; Stop 09/25/20 at 16:01; Status DC Warfarin Sodium (Coumadin) 1 mg 1X WARF ONCE PO Last administered on 09/26/20at 16:00; Start 09/26/20 at 16:00; Stop 09/26/20 at 16:01; Status DC Propofol 100 ml @ 3.174 mls/ hr CONT PRN IV PER PROTOCOL Last administered on 10/09/20 04:43; Start 09/26/20 at 20:15 Atropine Sulfate (ATROPINE 1mg SYRINGE) 1 mg STK-MED ONCE .ROUTE ; Start 09/10 07/31 at 10:00; Stop 09/27/20 at 08:20; Status DC Epinephrine HCl (EPINEPHrine SYRINGE) 1 mg STK-MED ONCE .ROUTE ; Start 09/25/20 at 10:00; Stop 09/27/20 at 08:20; Status DC Warfarin Sodium (Coumadin) 2 mg 1X WARF ONCE PO Last administered on 09/27/20at 17:53; Start 09/27/20 at 16:00; Stop 09/27/20 at 16:01; Status DC Aspirin (Aspirin Chewable) 81 mg DAILYWBKFT PO Last administered on 10/06/20at 11:39; Start 09/27/20 at 09:30; Stop 10/06/20 at 16:23; Status DC Clopidogrel Bisulfate (Plavix) 75 mg DAILYWBKFT PO Last administered on 10/08/20at 10:39; Start 09/27/20 at 09:30 Potassium Chloride/Water 100 ml @ 100 mls/hr Q1H IV Last administered on 09/27/20 12:45; Start 09/27/20 at 11:30; Stop 09/27/20 at 13:29; Status DC Warfarin Sodium (Coumadin) 3 mg 1X WARF ONCE PO Last administered on 09/28/20at 18:18; Start 09/28/20 at 16:00; Stop 09/28/20 at 16:01; Status DC Cefepime HCl (Maxipime) 2 gm Q8HRS IVP Last administered on 10/09/20 05:54; Start 09/29/20 at 14:00 Warfarin Sodium (Coumadin) 3 mg 1X WARF ONCE PO Last administered on 09/29/20 16:55; Start 09/29/20 at 16:00; Stop 09/29/20 at 16:01; Status DC Warfarin Sodium (Coumadin) 3 mg 1X WARF ONCE PO Last administered on 8/21/21at 16:00; Start 09/30/20 at 16:00; Stop 09/30/20 at 16:01; Status DC Warfarin Sodium (Coumadin) 5 mg 1X WARF ONCE PO Last administered on 10/01/20at 16:35; Start 10/01/20 at 16:00; Stop 10/01/20 at 16:01; Status DC Multi-Ingred Cream/Lotion/Oil/ Oint (Artificial Tears Eye Ointment) 1 sudheer PRN Q1HR PRN OU DRY EYE Last administered on 10/03/20at 12:24; Start 10/02/20 at 12:45 Fentanyl Citrate (Fentanyl 2ml Vial) 25 mcg PRN Q5MIN PRN IVP MILD PAIN 1-3; Start 10/05/20 at 06:00; Stop 10/06/20 at 05:59; Status DC Fentanyl Citrate (Fentanyl 2ml Vial) 50 mcg PRN Q5MIN PRN IVP MODERATE PAIN 4- 6; Start 10/05/20 at 06:00; Stop 10/06/20 at 05:59; Status DC Morphine Sulfate (Morphine Sulfate) 1 mg PRN Q10MIN PRN IVP SEVERE PAIN 7-10; Start 10/05/20 at 06:00; Stop 10/06/20 at 05:59; Status UNV Ringer's Solution 1,000 ml @ 30 mls/hr Q24H IV ; Start 10/05/20 at 06:00; Stop 10/05/20 at 17:59; Status DC Hydromorphone HCl (Dilaudid) 0.5 mg PRN Q10MIN PRN IVP SEVERE PAIN 7-10, 2nd CHOICE; Start 10/05/20 at 06:00; Stop 10/06/20 at 05:59; Status UNV Prochlorperazine Edisylate (Compazine) 5 mg PACU PRN PRN IVP NAUSEA, MRX1; Start 10/05/20 at 06:00; Stop 10/06/20 at 05:59; Status DC Bupivacaine HCl/ Epinephrine Bitart (Sensorcain-Epi 0.5%-1:984210 Mpf) 30 ml STK-MED ONCE .ROUTE Last administered on 10/05/20at 10:09; Start 10/05/20 at 07: 12; Stop 10/05/20 at 07:12; Status DC Cellulose (Surgicel Fibrillar 1x2) 1 each STK-MED ONCE .ROUTE Last administered on 10/05/20at 10:30; Start 10/05/20 at 07:12; Stop 10/05/20 at 07:12; Status DC Rocuronium Collins (Zemuron) 50 mg STK-MED ONCE .ROUTE ; Start 10/05/20 at 09:06; Stop 10/05/20 at 09:06; Status DC Rocuronium [place] (Zemuron) 50 mg STK-MED ONCE .ROUTE ; Start 10/05/20 at 10:10; Stop 10/05/20 at 10:10; Status DC Warfarin Sodium (Coumadin Per Pharmacy) 1 each PRN DAILY PRN MC SEE COMMENTS Last administered on 10/06/20at 09:32; Start 10/05/20 at 14:00; Stop 10/06/20 at 16:23; Status DC Argatroban (Argatroban Per Pharmacy) 1 each PRN DAILY PRN MC SEE COMMENTS; Start 10/05/20 at 14:00 Argatroban 50 mg/ Sodium Chloride 50 ml @ 6.48 mls/hr CONT PRN IV ADJUST PER PTT; Start 10/05/20 at 14:00; Stop 10/05/20 at 13:59; Status DC Argatroban 50 mg/ Sodium Chloride 50 ml @ 6.48 mls/hr CONT PRN IV ADJUST PER PTT; Start 10/06/20 at 00:00; Status Cancel Warfarin Sodium (Coumadin) 5 mg 1X WARF ONCE PO Last administered on 10/05/20at 21:23; Start 10/05/20 at 16:00; Stop 10/05/20 at 16:01; Status DC Argatroban 50 mg/ Sodium Chloride 50 ml @ 0 mls/hr CONT PRN IV PER PROTOCOL Last administered on 10/08/20at 18:21; Start 10/06/20 at 09:00 Warfarin Sodium (Coumadin) 5 mg 1X WARF ONCE PO ; Start 10/06/20 at 16:00; Stop 10/06/20 at 16:01; Status Cancel Amiodarone HCl (Cordarone) 400 mg DAILY PO Last administered on 10/08/20at 10:38; Start 10/06/20 at 10:00 Atorvastatin Calcium (Lipitor) 40 mg QHS PO Last administered on 10/08/20at 21:00; Start 10/06/20 at 21:00 Metoprolol Tartrate (Lopressor) 25 mg BID PO Last administered on 10/08/20at 10:38; Start 10/06/20 at 10:00 Furosemide (Lasix) 40 mg DAILY IVP Last administered on 10/08/20at 10:36; Start 10/06/20 at 10:00 Potassium Bicarbonate (Potassium Effervescent Tablet) 20 meq DAILY PEG Last administered on 10/08/20at 10:37; Start 10/06/20 at 10:00 Active Scripts Active Amiodarone Hcl 200 Mg Tablet 400 Mg PO DAILY 90 Days [Warfarin Per Pharmacy] 1 EACH Each 1 Each MC PRN DAILY PRN 30 Days Clopidogrel (Clopidogrel Bisulfate) 75 Mg Tablet 75 Mg PO DAILYWBKFT 90 Days Humalog (Insulin Lispro) 100 Unit/1 Ml Insuln.pen 0 Units SQ TIDWMEALS 30 Days Duoneb 0.5-3(2.5) Mg/3 Ml (Albuterol/Ipratropium) 3 Ml Ampul.neb 3 Ml NEB RTQID 30 Days Aspirin 325 Mg Tablet 325 Mg PO DAILYWBKFT 30 Days Metoprolol Tartrate 25 Mg Tablet 25 Mg PO BID 30 Days Montelukast Sodium Tablet (Montelukast Sodium) 10 Mg Tablet 10 Mg PO QHS Gabapentin 600 Mg Tablet 600 Mg PO BID 30 Days Reported Glimepiride 4 Mg Tablet 1 Tab PO DAILY Furosemide 40 Mg Tablet 1 Tab PO BID Symbicort 160-4.5 Mcg Inhaler (Budesonide/Formoterol Fumarate) 10.2 Gm Hfa.aer.ad 1 Puff INH DAILY Losartan-Hctz 100-12.5 Mg Tab (Losartan/Hydrochlorothiazide) 1 Each Tablet 1 Tab PO DAILY Nitrofurantoin [place]-Mcr 100 Mg (Nitrofurantoin Monohyd/M-Cryst) 100 Mg Capsule 1 Cap PO BID Betamethasone Valerate 60 Ml Lotion 1 TP QHS Atorvastatin Calcium 40 Mg Tablet 1 Tab PO DAILY Diltiazem 24Hr Cd (Diltiazem HCl) 240 Mg Cap.er.24h 1 Cap PO DAILY Nystop (Nystatin) 60 Gm Powder 1 Sudheer TP BID Pepcid (Famotidine) 20 Mg Tablet 20 Mg PO BID Vitals/I & O Vital Sign - Last 24 Hours 10/08/20 10/08/20 10/08/20 10/08/20 09:00 09:36 10:00 10:38 Pulse 76 80 81 Resp 11 12 B/P (MAP) 114/70 (85) 121/75 (90) 109/64 Pulse Ox 100 100 100 O2 Delivery Ventilator Ventilator Ventilator 10/08/20 10/08/20 10/08/20 10/08/20 10:38 11:00 11:54 12:00 Temp 98.0 98.0 Pulse 79 76 72 Resp 12 12 B/P (MAP) 109/64 120/78 (92) 86/53 (64) Pulse Ox 100 100 100 O2 Delivery Ventilator Ventilator Ventilator 10/08/20 10/08/20 10/08/20 10/08/20 12:00 13:00 13:50 14:00 Pulse 75 72 Resp 12 12 B/P (MAP) 134/82 (99) 129/81 (97) Pulse Ox 99 100 99 O2 Delivery Mechanical Ventilator Ventilator Ventilator Ventilator 10/08/20 10/08/20 10/08/20 10/08/20 15:00 16:00 16:00 16:25 Temp 98.1 98.1 Pulse 72 74 Resp 12 11 B/P (MAP) 99/62 (74) 91/59 (70) Pulse Ox 100 100 99 O2 Delivery Ventilator Mechanical Ventilator Ventilator Ventilator 10/08/20 10/08/20 10/08/20 10/08/20 17:00 18:04 19:00 20:00 Temp 98.9 98.9 Pulse 72 77 74 77 Resp 12 12 12 13 B/P (MAP) 111/70 (84) 126/85 (99) 93/53 (66) 97/59 (72) Pulse Ox 100 100 100 100 O2 Delivery Ventilator Ventilator Ventilator Ventilator 10/08/20 10/08/20 10/08/20 10/08/20 20:00 20:29 21:00 21:06 Pulse 77 72 Resp 12 B/P (MAP) 97/59 111/62 (78) Pulse Ox 100 96 O2 Delivery Mechanical Ventilator Ventilator Ventilator 10/08/20 10/08/20 10/08/20 10/08/20 22:00 22:26 23:00 23:59 Temp 98.1 98.1 Pulse 79 81 81 Resp 12 12 12 B/P (MAP) 114/69 (84) 113/68 (83) 131/74 (93) Pulse Ox 98 95 99 99 O2 Delivery Ventilator Ventilator Ventilator Ventilator 10/08/20 10/09/20 10/09/20 10/09/20 23:59 00:30 01:00 02:00 Pulse 79 78 Resp 14 12 B/P (MAP) 119/71 (87) 120/61 (80) Pulse Ox 99 99 99 O2 Delivery Mechanical Ventilator Ventilator Ventilator Ventilator 10/09/20 10/09/20 10/09/20 10/09/20 03:00 03:36 04:00 04:00 Temp 98.2 98.2 Pulse 74 76 Resp 14 12 B/P (MAP) 118/63 (81) 131/64 (86) Pulse Ox 99 99 99 O2 Delivery Ventilator Ventilator Mechanical Ventilator Ventilator 10/09/20 10/09/20 10/09/20 10/09/20 05:00 05:39 06:02 07:00 Temp 98.6 98.6 Pulse 79 79 79 Resp 14 15 14 B/P (MAP) 127/72 (90) 115/73 (87) 105/58 (74) Pulse Ox 99 99 99 100 O2 Delivery Ventilator Ventilator Ventilator Ventilator Intake and Output 10/08/20 10/08/20 10/09/20 15:00 23:00 07:00 Intake Total 200 ml 2060 ml 2197 ml Output Total 1010 ml 1100 ml 575 ml Balance -810 ml 960 ml 1622 ml Justicifation of Admission Dx: Justifications for Admission: Justification of Admission Dx: Yes CHF: Cardiac Arrhythmias RAFAEL REINOSO MD Oct 09, 2020 08:46
[2020-10-09] MEDS: ARGATROBAN 50 MG in IV NORMAL SALINE 50ML 50 ML IV PRN (08:51)
[2020-10-09] MEDS: PANTOPRAZOLE IV PUSH 40 MG VIAL. IVP SCH (09:22)
[2020-10-09] MEDS: POTASSIUM BICARB 20 MEQ EFFERVESCENT TABLET. PEG SCH (09:23)
[2020-10-09] MEDS: FUROSEMIDE 40 MG/4 ML VIAL. IVP SCH (09:23)
[2020-10-09] MEDS: AMIODARONE HCL 200 MG TABLET. PO SCH (09:24)
[2020-10-09] MEDS: CLOPIDOGREL BISULFATE 75 MG TABLET PO SCH (09:24)
[2020-10-09] MEDS: METOPROLOL TART IMMED RELEASE 25 MG TABLET. PO SCH ×2 (09:24→20:56)
--- NOTE | 2020-10-09 09:44 | PDOC ---
PULMONARY PROGRESS NOTES DATE: 10/09/20 TIME: 09:43 Subjective on vent support 35%/5 sedaed on propofol on argatroban per cardiology Status post tracheostomy 10/05 no weaning yesterday Vitals Vital Signs Date Time Temp Pulse Resp B/P (MAP) Pulse Ox O2 Delivery O2 Flow Rate FiO2 10/09/20 09:24 80 131/69 10/09/20 08:25 99 Ventilator 10/09/20 07:00 98.6 14 98.6 Comments ros unable to obtain sedated on vent General: No acute distress HEENT: Other (nc at perrl nose clear orally intubated neck no lad no thyromegaly) Lungs: Other (Tracheostomy) Cardiovascular: S1, S2 Abdomen: Soft, Non-tender, Other (Obese) Extremities: Other (1+ edema) Skin: Warm Labs Laboratory Tests Test 10/07/20 11:41 10/07/20 17:02 10/07/20 22:00 10/07/20 23:43 Glucose (Fingerstick) 135 mg/dL (70-99) 123 mg/dL (70-99) Activated Partial Thromboplast Time 85 SEC (24-38) 78 SEC (24-38) Test 10/08/20 05:20 10/08/20 06:40 10/08/20 13:23 10/09/20 00:06 Platelet Count 231 x10^3/uL (140-400) Prothrombin Time 20.4 SEC (11.7-14.0) Prothromb Time International Ratio 1.8 (0.8-1.1) Activated Partial Thromboplast Time 88 SEC (24-38) Glucose (Fingerstick) 139 mg/dL (70-99) 135 mg/dL (70-99) 135 mg/dL (70-99) Test 10/09/20 05:58 10/09/20 06:00 Glucose (Fingerstick) 126 mg/dL (70-99) Prothrombin Time 23.4 SEC (11.7-14.0) Prothromb Time International Ratio 2.1 (0.8-1.1) Activated Partial Thromboplast Time 100 SEC (24-38) Laboratory Tests Test 10/08/20 13:23 10/09/20 00:06 10/09/20 05:58 10/09/20 06:00 Glucose (Fingerstick) 135 mg/dL (70-99) 135 mg/dL (70-99) 126 mg/dL (70-99) Prothrombin Time 23.4 SEC (11.7-14.0) Prothromb Time International Ratio 2.1 (0.8-1.1) Activated Partial Thromboplast Time 100 SEC (24-38) Medications Active Scripts Medications Dose Route/Sig Max Daily Dose Days Date Category Amiodarone Hcl 200 Mg Tablet 400 Mg PO DAILY 09/18/20 Rx [Warfarin Per Pharmacy] 1 EACH Each 1 Each MC PRN DAILY PRN 09/18/20 Rx Clopidogrel (Clopidogrel Bisulfate) 75 Mg Tablet 75 Mg PO DAILYWBKFT 09/18/20 Rx Glimepiride 4 Mg Tablet 1 Tab PO DAILY 09/13/20 Reported Furosemide 40 Mg Tablet 1 Tab PO BID 09/13/20 Reported Symbicort 160-4.5 Mcg Inhaler (Budesonide/Formoterol Fumarate) 10.2 Gm Hfa.aer.ad 1 Puff INH DAILY 09/13/20 Reported Losartan-Hctz 100-12.5 Mg Tab (Losartan/Hydrochlorothiazide) 1 Each Tablet 1 Tab PO DAILY 09/13/20 Reported Nitrofurantoin [place]-Mcr 100 Mg (Nitrofurantoin Monohyd/M-Cryst) 100 Mg Capsule 1 Cap PO BID 09/13/20 Reported Betamethasone Valerate 60 Ml Lotion 1 TP QHS 09/13/20 Reported Atorvastatin Calcium 40 Mg Tablet 1 Tab PO DAILY 09/13/20 Reported Diltiazem 24Hr Cd (Diltiazem HCl) 240 Mg Cap.er.24h 1 Cap PO DAILY 09/13/20 Reported Nystop (Nystatin) 60 Gm Powder 1 Sudheer TP BID 09/13/20 Reported Humalog (Insulin Lispro) 100 Unit/1 Ml Insuln.pen 0 Units SQ TIDWMEALS 08/06/18 Rx Duoneb 0.5-3(2.5) Mg/3 Ml (Albuterol/Ipratropium) 3 Ml Ampul.neb 3 Ml NEB RTQID 08/06/18 Rx Aspirin 325 Mg Tablet 325 Mg PO DAILYWBKFT 07/22/17 Rx Metoprolol Tartrate 25 Mg Tablet 25 Mg PO BID 07/22/17 Rx Montelukast Sodium Tablet (Montelukast Sodium) 10 Mg Tablet 10 Mg PO QHS 07/22/17 Rx Gabapentin 600 Mg Tablet 600 Mg PO BID 30 07/22/17 Rx Pepcid (Famotidine) 20 Mg Tablet 20 Mg PO BID 05/17/13 Reported Comments cxr reviewed 1.Improving interstitial prominence, persistent left basilar opacities. ett ok Impression . 1. Acute on chronic respiratory failure secondary to multifactorial etiologies including hypoglycemic encephalopathy. No evidence of new stroke. 2. Possible sepsis--- on antibiotics 3. Hypoglycemia./ encephalopathy 4. The patient with prior history of cerebrovascular accident with left-sided weakness. 5. Underlying chronic obstructive pulmonary disease. 6. Morbid obesity. 7. Peripheral vascular disease. 8. Abnormal CT chest with bibasilar atelectasis. No significant mucus plugging. Tiny pleural effusion seen. 9. Persistent encephalopathy. --ongoing 10. anemia Plan . Updated 10/09/20 Continue current vent support 10/450/35/5 DC sedation start weaning as tolerated Status post tracheostomy 10/05. Continue ABX monitor HGB, improved Follow CXR/ABG --make changes as needed DVT/GI PPX: warfarin --on hold .on argatroban per cardiology Awaiting PEG tube placement per gi D/W RN and RT Patient is a DNR Updated 10/08/20 Continue current vent support 10/450/35/5 decrease sedation start weaning as tolerated Status post tracheostomy 10/05. Continue ABX monitor HGB, improved Follow CXR/ABG --make changes as needed DVT/GI PPX: warfarin --on hold on argatroban per cardiology Awaiting PEG tube placement per gi D/W RN and RT Patient is a DNR Updated 10/07/20 Continue current vent support 10/450/40/5 decrease sedation start weaning as tolerated Status post tracheostomy. plan to start PS weaning 24 hours post trach Continue ABX monitor HGB, improved Follow CXR/ABG --make changes as needed DVT/GI PPX: warfarin --on hold on argatoban per cardiology ?restart per PCP Awaiting PEG tube placement D/W RN and RT Patient is a DNR Updated 10/06/20 Continue current vent support 10/450/40/5 Status post tracheostomy. plan to start PS weaning 24 hours post trach Continue ABX monitor HGB, improved Follow CXR/ABG --make changes as needed DVT/GI PPX: warfarin --on hold restart per PCP Awaiting PEG tube placement D/W RN and RT Patient is a DNR Updated 10/04/20 Continue current vent support 10/450/40/5 attempt pressure support trial, tracheostomy is medically indicated secondary to inability to protect airway,Intubated 3 times. surgery planning trach in am plan to start PS weaning 24 hours post trach Continue ABX monitor HGB, improved Follow CXR/ABG --make changes as needed DVT/GI PPX: warfarin --on hold restart per PCP D/W RN and RT Patient is a DNR Updated 10/03/20 Continue current vent support 10/450/40/5 DC sedation, attempt pressure support trial, tracheostomy is medically indicated secondary to inability to protect airway,Intubated 3 times. surgery consult for tracheostomy Follow CXR/ABG --make changes as needed Continue ABX on cefepime Hemoglobin 6.3 today, hold Coumadin, monitor hemoglobin. Tx per PCP DVT/GI PPX: warfarin --on hold as patient is anemic D/W RN and RT Patient is a DNR Discussed with Dr. Fierro Updated 10/02/20 Continue current vent support 10/450/40/5 DC sedation, attempt pressure support trial, tracheostomy is medically indicated secondary to inability to protect airway,Intubated 3 times. consider surgery consult Follow CXR/ABG --make changes as needed Continue ABX on cefepime Hemoglobin 6.3 today, hold Coumadin, monitor hemoglobin. Tx per PCP DVT/GI PPX: warfarin --on hold as patient is anemic D/W RN and RT Patient is a DNR CC time 30 minutes CLINTON PALAFOX MD Oct 09, 2020 09:44
--- NOTE | 2020-10-09 12:48 | PDOC ---
Date of Service: DATE: 10/09/20 TIME: 12:44 Objective: Vital Signs: Vital Signs Date Time Temp Pulse Resp B/P (MAP) Pulse Ox O2 Delivery O2 Flow Rate FiO2 10/09/20 12:10 Ventilator 10/09/20 12:09 74 14 115/63 (80) 99 10/09/20 07:00 98.6 98.6 Labs: Laboratory Tests Test 10/08/20 13:23 10/09/20 00:06 10/09/20 05:58 10/09/20 06:00 Glucose (Fingerstick) 135 mg/dL 135 mg/dL 126 mg/dL Prothrombin Time 23.4 SEC Prothromb Time International Ratio 2.1 Activated Partial Thromboplast Time 100 SEC PE: GEN: chronically ill LUNGS: trach/vent ABD: soft, Dobhoff feeds NEURO/PSYCH: sedated A/P: Resp failure, encephalopathy s/p tracheostomy, request for PEG placement Anemia - stable CAD, ICM, A Fib, COPD, CHF, h/o CVA, PAD COVID negative -- D/w SW - doesn't have a good track record w/ holding Plavix which would need to be done prior to PEG placement - she will pass on to [facility] to discuss possible DC w/ Dobhoff. Additionally note latest INR is 2.1. Other per Dr. Yoder. Justicifation of Admission Dx: Justifications for Admission: Justification of Admission Dx: Yes CHF: Cardiac Arrhythmias SARAH ORR Oct 09, 2020 12:48
--- NOTE | 2020-10-09 13:23 | PDOC ---
PEDRO VERDE [employer] 10/09/20 1323: CARDIO Progress Notes Date and Time Date of Service 10/09/20 Time of Evaluation 1310 Subjective Subjective: Other (off sedation, not responsive ) Vitals Vitals Vital Signs Date Time Temp Pulse Resp B/P (MAP) Pulse Ox O2 Delivery O2 Flow Rate FiO2 10/09/20 13:16 98.6 82 21 117/72 (87) 99 Ventilator 98.6 Weight Weight [ ] Input and Output Intake and Output Intake and Output 10/09/20 07:00 Intake Total 4457 ml Output Total 2685 ml Balance 1772 ml IV Total 1647 ml Tube Feeding 2010 ml Other 800 ml Output Urine Total 2685 ml Gastric Drainage Total 0 ml Laboratory Labs Laboratory Tests Test 10/08/20 13:23 10/09/20 00:06 10/09/20 05:58 10/09/20 06:00 Glucose (Fingerstick) 135 mg/dL (70-99) 135 mg/dL (70-99) 126 mg/dL (70-99) Prothrombin Time 23.4 SEC (11.7-14.0) Prothromb Time International Ratio 2.1 (0.8-1.1) Activated Partial Thromboplast Time 100 SEC (24-38) Physical Exam HEENT: Neck Supple W Full Motion, Other (tracheostomy ) Chest: Symmetric LUNGS: Other (mechanical vent ) Heart: RRR (SR) Abdomen: Other (obese ) Extremities: Other (trace bilateral LE edema ) Neurology: other (not responsive ) Assessment Assessment 1. Acute on chronic respiratory failure with associated severe hypoglycemia and encephalopathy and COPD, CHF; s/p tracheostomy. mechanical vent 2. Metabolic encephalopathy with associated hypoglycemia. MRI revealed no new stroke 3. Acute on chronic diastolic/systolic CHF 4. CAD/STEMI: S/P complex PCI/stents to RCA/LAD 08/16/2020. [facility] 08/31 with ISR to RCA, S/P PCI 5. ICM: EF at 25% 6. PAD: S/P thrombolysis to right popliteal artery with large aneurysm. Needing future repair per vascular 7. 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 PAFIB: maintaining SR 10. Anemia: post transfusion. hgb stable 11. Hx of CVA 12. Dysphagia; needing PEG. GI recs noted. needing to be off Plavix x5 days. Unable to hold Plavix with recent ISR. 13. Encephalopathy, anoxia Recommendations Will discuss further with GI regarding antiplatelet therapy Ongoing lung optimization, vent weaning Secondary prevention On argatroban, Plavix therapy. Argatroban can be held briefly for PEG placement Lasix therapy, electrolyte replacement Amiodarone for rhythm maintenance. Supportive care Justicifation of Admission Dx: Justifications for Admission: Justification of Admission Dx: Yes CHF: Cardiac Arrhythmias EMELIA GRAY MD 10/09/20 1659: CARDIO Progress Notes Plan Plan The patient was seen and interviewed as well as examined at the bedside. The chart was reviewed. The case was discussed. Agree with the plan of care. Discussed with Dr. Naranjo. We will plan for holding the Plavix for 48 hours. Continue argatroban infusion. Plan for PEG tube placement through general surgery service. Supportive care. Poor long-term prognosis. Await neurologic recovery. PEDRO VERDE APRN Oct 09, 2020 13:23 EMELIA GRAY MD Oct 09, 2020 16:59
--- NOTE | 2020-10-09 16:12 | NUR ---
SS following up with discharge planning. SS reviewed pt chart and discussed with pt RN. Pt is currently on the vent at 35%. COVID19 negative. Pt on Argatroban and IV Lasix. Trach in place. Dr. Henning being consulted for PEG placement. Pt accepted at [facility], ; fax [phone], pending insurance authorization. Clinical updates phoned and faxed to [facility]. SS will continue to follow for discharge planning.
[2020-10-09] MEDS: TIROFIBAN 5MG -0.9% NS 100 ML IV PRN ×2 (17:41→22:46)
[2020-10-09] MEDS: ATORVASTATIN CALCIUM 40 MG TABLET. PO SCH (20:56)
[2020-10-10] VITALS (23 sets, daily range): BP systolic 106–168; BP diastolic 48–99
[2020-10-10] MEDS: ARGATROBAN 50 MG in IV NORMAL SALINE 50ML 50 ML IV PRN ×2 (03:04→17:04)
[2020-10-10] MEDS: TIROFIBAN 5MG -0.9% NS 100 ML IV PRN ×4 (03:05→22:11)
[2020-10-10] MEDS: CEFEPIME HCL IV Push 2 GM VIAL. IVP SCH ×3 (04:30→20:54)
[2020-10-10] MEDS: INSULIN LISPRO 300 UNITS/3 ML VIAL. SQ SCH ×3 (04:37→17:58)
[2020-10-10 04:56] LABS: HEMATOCRIT 27.2 % (39.0-53.0); HEMOGLOBIN 9.2 g/dL (13.0-17.5); RED BLOOD COUNT 2.88 x10^6/uL (4.30-5.70); WHITE BLOOD COUNT 5.3 x10^3/uL (4.0-11.0)
[2020-10-10 05:00] LABS: PROTHROMBIN TIME PATIENT 19.1 SEC (11.7-14.0)
[2020-10-10 05:25] LABS: CALCIUM 8.4 mg/dL (8.5-10.1); CREATININE 0.6 mg/dL (0.7-1.3); GFR 132.4; POTASSIUM 3.5 mmol/L (3.5-5.1)
--- NOTE | 2020-10-10 08:28 | PDOC ---
[employer] PROGRESS NOTE Date of Service DOS: DATE: 10/10/20 TIME: 08:11 Chief Complaint Chief Complaint Acute anemia, likely due to acute blood loss due to multiple lab draws and multiple comorbidities. 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 Will determine timing of PEG tube placement before starting warfarin. Hypoglycemia protocol Continue empiric IV antibiotics with concern for aspiration pneumonia Pulmonology consult for vent management IV electrolyte replacement as needed Consider cardiology consult if troponins increase Argatroban for DVT prophylaxis Protonix while on the vent GI prophylaxis N.p.o. Full code Discussed with RN and SW Disposition inpatient management as above Surrogate decision maker is undesignated History of Present Illness History of Present Illness Mr Andrews is a 70-year-old male with a recent prolonged hospitalization for STEMI and respiratory failure for which she was treated with arterial thrombolysis for a right leg popliteal artery aneurysm and also had left heart cath with placement of a stent in the LAD and RCA comes in today after he was found obtunded at his [facility] facility. Apparently according to the nursing facility patient was in his usual state of health and he was conversational but then became altered. His blood glucose was found to be in the 30s. Glucose tabs and glucagon was given in route and his GCS reported at 6. Upon arrival patient's mental status did not improve and he was eventually intubated for airway protection. Of note EMS was bagging the patient through the nasal access. In the ED, patient was placed on a vent and pulmonology was consulted. Patient was also taken to the CT scanner for sanders scanning. Patient was started to wake up on the vent and sedation was ordered. 09/23: Patient examined at bedside. Intubated. Not on any sedation but unresponsive. Neurology consult in place. 09/24: Patient seen and examined at bedside. Remains intubated he is off sedation but still remains unresponsive. Planning for MRI brain in the morning. Further plan to be determined by MRI. 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 09/25: Afebrile, currently breathing on ventilator with FiO2 50%, PEEP 5. Had CODE BLUE in ICU this morning; received 2 rounds of CPR, epinephrine, and atropine with ROSC. MRI brain negative. Made DNR, and after discussion with Dr. Rubalcava he agrees. 09/26:: Afebrile. Still on vent, with FiO2 45%, PEEP 5. After discussion with Dr. Rubalcava yesterday, patient was made DNR. In the ED is likely a poor candidate for weaning trials may need trach in near future if no significant improvement. 09/27:: Afebrile. On vent with FiO2 40%, PEEP 5. Potassium 2.8 today, will replace. Warfarin has been resumed. Discussed with pharmacy, will resume aspirin and Plavix. May need tracheostomy by the end of the week if no improvement in mental status. 09/28:: Afebrile. On ventilator with FiO2 40%, PEEP 5. Warfarin has been resumed; INR 1.3 today. Some morning labs still pending; hemoglobin yesterday 7.3, will continue to monitor. Continue IV cefepime and supportive care. 09/29: Afebrile. Breathing on vent with FiO2 40%, PEEP 5. INR 1.2 today; pharm acy to help with warfarin dosing. White count within normal range, renal function stable. Spoke with pharmacy about cefepime 1 g every 8 hours dosing; this has been changed to cefepime 2 g every 8 hours. 09/30: Afebrile. Currently breathing on vent with FiO2 40%, PEEP 5. Continue antibiotics, cefepime 2 g every 8 hours. INR 1.4; continue warfarin dosing per pharmacy. Possible tracheostomy at some point. Critical care time 30 minutes reviewing charts, labs, examination, discussion with RN. 10/01: T-max 100.3 F. On ventilator with FiO2 40%, PEEP 5. Continue antibiotics, cefepime 2 g every 8 hours. INR 1.4, still subtherapeutic; continue warfarin dosing per pharmacy. Possible tracheostomy at some point. 10/02: No acute events overnight. Patient saturating 99% on vent settings of 10/450/40/5. Patient will likely need a trach and PEG at some point. We will hold warfarin and start 2 units PRBC transfusion. Patient's chart, labs, images were reviewed and discussed with RN 10/03: No acute events overnight. Patient sat 100% on minimal vent settings. No sedation at this point and patient is opening his eyes spontaneously. Not much response or spontaneous movements. Surgery has been consulted for tracheostomy. Patient will also likely need a PEG tube. 10/04: No acute events overnight. Patient saturating 90% on minimal vent settings. T-max 100.4 overnight. Plan for trach tomorrow with surgery. Patient's chart, labs, images were reviewed and discussed with RN 10/05: No acute events overnight. Patient saturating 99% on minimal vent settings. Plan for tracheostomy today. Consent is provided by authorization by 2 physicians due to patient having no close relatives or DPOA. Will resume heparin and warfarin bridging tomorrow after tracheostomy 10/07: No acute events overnight. Patient seen and examined bedside. On trach vent. Saturating 99%. Pending GI evaluation for possible PEG placement after discussing with cardiology whether to continue with Plavix. Possibly place PEG if patient is only on aspirin and stopping argatroban. 10/08: No acute events overnight. Patient continues to be on trach mechanical vent. Saturating 100%. Pending decision from GI whether to proceed with PEG placement depending on the type of anticoagulation patient will be on. 10/09: No overnight events. On trach with vent support 40% FiO2 PEEP of 5. Currently argatroban and propofol for minimal sedation. When sedation is weaned he has no meaningful movements but has pulled at his tracheostomy site. Unable to hold plavix due to recently placed stents. Febrile today. On trach with vent support 40% FiO2 PEEP of 5. Continue argatroban and changed to Aggrastat in anticipation of surgical consultation for potential laparoscopic PEG placement. INR 1.6. Hb greater than 9 no significant neurologic recovery today. CC time 31 minutes Vitals/I&O Vitals/I&O: Vital Signs Date Time Temp Pulse Resp B/P (MAP) Pulse Ox O2 Delivery O2 Flow Rate FiO2 10/10/20 08:02 Mechanical Ventilator 10/10/20 07:22 86 13 168/99 (122) 99 10/10/20 05:00 97.5 97.5 I & O 10/09/20 10/09/20 10/10/20 15:00 23:00 07:00 Intake Total 200 ml 1551 ml 1272 ml Output Total 2575 ml 850 ml 550 ml Balance -2375 ml 701 ml 722 ml Physical Exam General: No acute distress, Other Heart: Regular rate (SR), Other (distatne heart sounds) Lungs: Other (Tracheostomy) Abdomen: Other (obese) Extremities: No cyanosis, Other (2-3+ bilateral LE pitting edema) Skin: No rashes, No significant lesion Labs Labs: Laboratory Tests Test 10/09/20 13:19 10/09/20 18:20 10/09/20 23:29 10/10/20 04:36 Glucose (Fingerstick) 169 mg/dL (70-99) 166 mg/dL (70-99) 148 mg/dL (70-99) 150 mg/dL (70-99) Test 10/10/20 04:40 White Blood Count 5.3 x10^3/uL (4.0-11.0) Red Blood Count 2.88 x10^6/uL (4.30-5.70) Hemoglobin 9.2 g/dL (13.0-17.5) Hematocrit 27.2 % (39.0-53.0) Mean Corpuscular Volume 94 fL (79-100) Mean Corpuscular Hemoglobin 32 pg (25-35) Mean Corpuscular Hemoglobin Concent 34 g/dL (31-37) Red Cell Distribution Width 17.0 % (11.5-14.5) Platelet Count 243 x10^3/uL (140-400) Prothrombin Time 19.1 SEC (11.7-14.0) Prothromb Time International Ratio 1.6 (0.8-1.1) Sodium Level 139 mmol/L (136-145) Potassium Level 3.5 mmol/L (3.5-5.1) Chloride Level 103 mmol/L (98-107) Carbon Dioxide Level 33 mmol/L (21-32) Anion Gap 3 (6-14) Blood Urea Nitrogen 17 mg/dL (8-26) Creatinine 0.6 mg/dL (0.7-1.3) Estimated GFR (Cockcroft-Gault) 132.4 Glucose Level 159 mg/dL (70-99) Calcium Level 8.4 mg/dL (8.5-10.1) Assessment and Plan Assessmemt and Plan Problems Medical Problems: (1) NSTEMI (non-ST elevated myocardial infarction) Status: Acute (2) Obtundation Status: Acute (3) Respiratory arrest Status: Acute Comment Review of Relevant I have reviewed the following items denise (where applicable) has been applied. Medications: Current Medications Medications (Trade) Dose Ordered Sig/Dru Route PRN Reason Start Time Stop Time Status Last Admin Dose Admin Tirofiban/Sodium Chloride 100 ml @ 0 mls/hr CONT PRN IV PER PROTOCOL 10/09/20 17:00 10/10/20 03:05 Justifications for Admission Other Justification Hypoglycemia and altered mental status. JARRED SINGH MD Oct 10, 2020 08:28
[2020-10-10] MEDS: PANTOPRAZOLE IV PUSH 40 MG VIAL. IVP SCH (09:37)
[2020-10-10] MEDS: FUROSEMIDE 40 MG/4 ML VIAL. IVP SCH (09:37)
[2020-10-10] MEDS: POTASSIUM BICARB 20 MEQ EFFERVESCENT TABLET. PEG SCH (09:37)
[2020-10-10] MEDS: AMIODARONE HCL 200 MG TABLET. PO SCH (09:37)
[2020-10-10] MEDS: METOPROLOL TART IMMED RELEASE 25 MG TABLET. PO SCH ×2 (09:38→20:53)
--- NOTE | 2020-10-10 09:42 | PDOC ---
BENNY JOE ARCHITECTURAL PROJECT CAPTAIN 10/10/20 0942: CARDIO Progress Notes Date and Time Date of Service 10/10/2020 Time of Evaluation 0920 Subjective Subjective: Other (off sedation, not responsive ) Vitals Vitals Vital Signs Date Time Temp Pulse Resp B/P (MAP) Pulse Ox O2 Delivery O2 Flow Rate FiO2 10/10/20 09:30 83 11 106/55 (72) 99 Ventilator 10/10/20 08:06 98.9 98.9 Weight Weight [ ] Input and Output Intake and Output Intake and Output 10/10/20 07:00 Intake Total 3023 ml Output Total 3975 ml Balance -952 ml IV Total 741 ml Tube Feeding 1532 ml Other 750 ml Output Urine Total 3975 ml Gastric Drainage Total 0 ml # Bowel Movements 3 Laboratory Labs Laboratory Tests Test 10/09/20 13:19 10/09/20 18:20 10/09/20 23:29 10/10/20 04:36 Glucose (Fingerstick) 169 mg/dL (70-99) 166 mg/dL (70-99) 148 mg/dL (70-99) 150 mg/dL (70-99) Test 10/10/20 04:40 White Blood Count 5.3 x10^3/uL (4.0-11.0) Red Blood Count 2.88 x10^6/uL (4.30-5.70) Hemoglobin 9.2 g/dL (13.0-17.5) Hematocrit 27.2 % (39.0-53.0) Mean Corpuscular Volume 94 fL (79-100) Mean Corpuscular Hemoglobin 32 pg (25-35) Mean Corpuscular Hemoglobin Concent 34 g/dL (31-37) Red Cell Distribution Width 17.0 % (11.5-14.5) Platelet Count 243 x10^3/uL (140-400) Prothrombin Time 19.1 SEC (11.7-14.0) Prothromb Time International Ratio 1.6 (0.8-1.1) Sodium Level 139 mmol/L (136-145) Potassium Level 3.5 mmol/L (3.5-5.1) Chloride Level 103 mmol/L (98-107) Carbon Dioxide Level 33 mmol/L (21-32) Anion Gap 3 (6-14) Blood Urea Nitrogen 17 mg/dL (8-26) Creatinine 0.6 mg/dL (0.7-1.3) Estimated GFR (Cockcroft-Gault) 132.4 Glucose Level 159 mg/dL (70-99) Calcium Level 8.4 mg/dL (8.5-10.1) Physical Exam HEENT: Neck Supple W Full Motion, Other (tracheostomy ) Chest: Symmetric LUNGS: Other (trach with vent) Heart: RRR (SR) Abdomen: Other (obese ) Extremities: Other (trace bilateral LE edema ) Neurology: other (not responsive ) Assessment Assessment 1. Acute on chronic respiratory failure with associated severe hypoglycemia and encephalopathy and COPD, CHF; s/p tracheostomy. mechanical vent 2. Metabolic encephalopathy with associated hypoglycemia. MRI revealed no new stroke 3. Acute on chronic diastolic/systolic CHF 4. CAD/STEMI: S/P complex PCI/stents to RCA/LAD 08/16/2020. [facility] 08/31 with ISR to RCA, S/P PCI 5. ICM: EF at 25% 6. PAD: S/P thrombolysis to right popliteal artery with large aneurysm. Needing future repair per vascular 7. 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 PAFIB: maintaining SR 10. Anemia: post transfusion. hgb stable 11. Hx of CVA 12. Dysphagia; needing PEG. GI recs noted. needing to be off Plavix x5 days. Unable to hold Plavix with recent ISR. 13. Encephalopathy, anoxia Recommendations Holding plavix for PEG placement meantime will continue Aggrastat. Monitor PLT and Hgb. Continue argatroban and restart coumadin when PEG is placed May stop Aggrastat and argatroban 6 hours prior to PEG placement Secondary prevention. Eventually plavix and coumadin Lasix therapy, electrolyte replacement Amiodarone for rhythm maintenance. Supportive care Justicifation of Admission Dx: Justifications for Admission: Justification of Admission Dx: Yes CHF: Cardiac Arrhythmias EMELIA GRAY MD 10/11/201911: CARDIO Progress Notes Plan Plan Late entry for 10/10/20 Pt. seen and examined. Agree with above TRAVEL SPECIALIST note. BENNY JOE ARCHITECTURAL PROJECT CAPTAIN Oct 10, 2020 09:42 EMELIA GRAY MD Oct 11, 2020 19:12
--- NOTE | 2020-10-10 10:12 | PDOC ---
PULMONARY PROGRESS NOTES DATE: 10/10/20 TIME: 10:10 Subjective on vent support 35%/5 sedaed on propofol on argatroban per cardiology Status post tracheostomy 10/05 no weaning yesterday Vitals Vital Signs Date Time Temp Pulse Resp B/P (MAP) Pulse Ox O2 Delivery O2 Flow Rate FiO2 10/10/20 10:03 88 16 128/69 (88) 99 Ventilator 10/10/20 08:06 98.9 98.9 Comments ros unable to obtain sedated on vent General: No acute distress HEENT: Other (nc at perrl nose clear orally intubated neck no lad no thyromegaly) Lungs: Other (Tracheostomy) Cardiovascular: S1, S2 Abdomen: Soft, Non-tender, Other (Obese) Extremities: Other (1+ edema) Skin: Warm Labs Laboratory Tests Test 10/08/20 13:23 10/09/20 00:06 10/09/20 05:58 10/09/20 06:00 Glucose (Fingerstick) 135 mg/dL (70-99) 135 mg/dL (70-99) 126 mg/dL (70-99) Prothrombin Time 23.4 SEC (11.7-14.0) Prothromb Time International Ratio 2.1 (0.8-1.1) Activated Partial Thromboplast Time 100 SEC (24-38) Test 10/09/20 13:19 10/09/20 18:20 10/09/20 23:29 10/10/20 04:36 Glucose (Fingerstick) 169 mg/dL (70-99) 166 mg/dL (70-99) 148 mg/dL (70-99) 150 mg/dL (70-99) Test 10/10/20 04:40 White Blood Count 5.3 x10^3/uL (4.0-11.0) Red Blood Count 2.88 x10^6/uL (4.30-5.70) Hemoglobin 9.2 g/dL (13.0-17.5) Hematocrit 27.2 % (39.0-53.0) Mean Corpuscular Volume 94 fL (79-100) Mean Corpuscular Hemoglobin 32 pg (25-35) Mean Corpuscular Hemoglobin Concent 34 g/dL (31-37) Red Cell Distribution Width 17.0 % (11.5-14.5) Platelet Count 243 x10^3/uL (140-400) Prothrombin Time 19.1 SEC (11.7-14.0) Prothromb Time International Ratio 1.6 (0.8-1.1) Sodium Level 139 mmol/L (136-145) Potassium Level 3.5 mmol/L (3.5-5.1) Chloride Level 103 mmol/L (98-107) Carbon Dioxide Level 33 mmol/L (21-32) Anion Gap 3 (6-14) Blood Urea Nitrogen 17 mg/dL (8-26) Creatinine 0.6 mg/dL (0.7-1.3) Estimated GFR (Cockcroft-Gault) 132.4 Glucose Level 159 mg/dL (70-99) Calcium Level 8.4 mg/dL (8.5-10.1) Laboratory Tests Test 10/09/20 13:19 10/09/20 18:20 10/09/20 23:29 10/10/20 04:36 Glucose (Fingerstick) 169 mg/dL (70-99) 166 mg/dL (70-99) 148 mg/dL (70-99) 150 mg/dL (70-99) Test 10/10/20 04:40 White Blood Count 5.3 x10^3/uL (4.0-11.0) Red Blood Count 2.88 x10^6/uL (4.30-5.70) Hemoglobin 9.2 g/dL (13.0-17.5) Hematocrit 27.2 % (39.0-53.0) Mean Corpuscular Volume 94 fL (79-100) Mean Corpuscular Hemoglobin 32 pg (25-35) Mean Corpuscular Hemoglobin Concent 34 g/dL (31-37) Red Cell Distribution Width 17.0 % (11.5-14.5) Platelet Count 243 x10^3/uL (140-400) Prothrombin Time 19.1 SEC (11.7-14.0) Prothromb Time International Ratio 1.6 (0.8-1.1) Sodium Level 139 mmol/L (136-145) Potassium Level 3.5 mmol/L (3.5-5.1) Chloride Level 103 mmol/L (98-107) Carbon Dioxide Level 33 mmol/L (21-32) Anion Gap 3 (6-14) Blood Urea Nitrogen 17 mg/dL (8-26) Creatinine 0.6 mg/dL (0.7-1.3) Estimated GFR (Cockcroft-Gault) 132.4 Glucose Level 159 mg/dL (70-99) Calcium Level 8.4 mg/dL (8.5-10.1) Medications Active Scripts Medications Dose Route/Sig Max Daily Dose Days Date Category Amiodarone Hcl 200 Mg Tablet 400 Mg PO DAILY 09/18/20 Rx [Warfarin Per Pharmacy] 1 EACH Each 1 Each MC PRN DAILY PRN 09/18/20 Rx Clopidogrel (Clopidogrel Bisulfate) 75 Mg Tablet 75 Mg PO DAILYWBKFT 09/18/20 Rx Glimepiride 4 Mg Tablet 1 Tab PO DAILY 09/13/20 Reported Furosemide 40 Mg Tablet 1 Tab PO BID 09/13/20 Reported Symbicort 160-4.5 Mcg Inhaler (Budesonide/Formoterol Fumarate) 10.2 Gm Hfa.aer.ad 1 Puff INH DAILY 09/13/20 Reported Losartan-Hctz 100-12.5 Mg Tab (Losartan/Hydrochlorothiazide) 1 Each Tablet 1 Tab PO DAILY 09/13/20 Reported Nitrofurantoin [place]-Mcr 100 Mg (Nitrofurantoin Monohyd/M-Cryst) 100 Mg Capsule 1 Cap PO BID 09/13/20 Reported Betamethasone Valerate 60 Ml Lotion 1 TP QHS 09/13/20 Reported Atorvastatin Calcium 40 Mg Tablet 1 Tab PO DAILY 09/13/20 Reported Diltiazem 24Hr Cd (Diltiazem HCl) 240 Mg Cap.er.24h 1 Cap PO DAILY 09/13/20 Reported Nystop (Nystatin) 60 Gm Powder 1 Sudheer TP BID 09/13/20 Reported Humalog (Insulin Lispro) 100 Unit/1 Ml Insuln.pen 0 Units SQ TIDWMEALS 08/06/18 Rx Duoneb 0.5-3(2.5) Mg/3 Ml (Albuterol/Ipratropium) 3 Ml Ampul.neb 3 Ml NEB RTQID 08/06/18 Rx Aspirin 325 Mg Tablet 325 Mg PO DAILYWBKFT 07/22/17 Rx Metoprolol Tartrate 25 Mg Tablet 25 Mg PO BID 07/22/17 Rx Montelukast Sodium Tablet (Montelukast Sodium) 10 Mg Tablet 10 Mg PO QHS 07/22/17 Rx Gabapentin 600 Mg Tablet 600 Mg PO BID 30 07/22/17 Rx Pepcid (Famotidine) 20 Mg Tablet 20 Mg PO BID 05/17/13 Reported Comments cxr reviewed 1.Improving interstitial prominence, persistent left basilar opacities. ett ok Impression . 1. Acute on chronic respiratory failure secondary to multifactorial etiologies including hypoglycemic encephalopathy. No evidence of new stroke. 2. Possible sepsis--- on antibiotics 3. Hypoglycemia./ encephalopathy 4. The patient with prior history of cerebrovascular accident with left-sided weakness. 5. Underlying chronic obstructive pulmonary disease. 6. Morbid obesity. 7. Peripheral vascular disease. 8. Abnormal CT chest with bibasilar atelectasis. No significant mucus plugging. Tiny pleural effusion seen. 9. Persistent encephalopathy. --ongoing 10. anemia Plan . Updated 10/10/20 Continue current vent support 10/450/35/5 DC sedation start weaning as tolerated/CPAP trial Status post tracheostomy 10/05. Continue ABX monitor HGB, improved Follow CXR/ABG --make changes as needed DVT/GI PPX: warfarin --on hold .on argatroban per cardiology Awaiting PEG tube placement per surgery D/W RN and RT Patient is a DNR Updated 10/09/20 Continue current vent support 10/450/35/5 DC sedation start weaning as tolerated Status post tracheostomy 10/05. Continue ABX monitor HGB, improved Follow CXR/ABG --make changes as needed DVT/GI PPX: warfarin --on hold .on argatroban per cardiology Awaiting PEG tube placement per gi D/W RN and RT Patient is a DNR Updated 10/08/20 Continue current vent support 10/450/35/5 decrease sedation start weaning as tolerated Status post tracheostomy 10/05. Continue ABX monitor HGB, improved Follow CXR/ABG --make changes as needed DVT/GI PPX: warfarin --on hold on argatroban per cardiology Awaiting PEG tube placement per gi D/W RN and RT Patient is a DNR Updated 10/07/20 Continue current vent support 10/450/40/5 decrease sedation start weaning as tolerated Status post tracheostomy. plan to start PS weaning 24 hours post trach Continue ABX monitor HGB, improved Follow CXR/ABG --make changes as needed DVT/GI PPX: warfarin --on hold on argatoban per cardiology ?restart per PCP Awaiting PEG tube placement D/W RN and RT Patient is a DNR Updated 10/06/20 Continue current vent support 10/450/40/5 Status post tracheostomy. plan to start PS weaning 24 hours post trach Continue ABX monitor HGB, improved Follow CXR/ABG --make changes as needed DVT/GI PPX: warfarin --on hold restart per PCP Awaiting PEG tube placement D/W RN and RT Patient is a DNR Updated 10/04/20 Continue current vent support 10/450/40/5 attempt pressure support trial, tracheostomy is medically indicated secondary to inability to protect airway,Intubated 3 times. surgery planning trach in am plan to start PS weaning 24 hours post trach Continue ABX monitor HGB, improved Follow CXR/ABG --make changes as needed DVT/GI PPX: warfarin --on hold restart per PCP D/W RN and RT Patient is a DNR Updated 10/03/20 Continue current vent support 10/450/40/5 DC sedation, attempt pressure support trial, tracheostomy is medically indicated secondary to inability to protect airway,Intubated 3 times. surgery consult for tracheostomy Follow CXR/ABG --make changes as needed Continue ABX on cefepime Hemoglobin 6.3 today, hold Coumadin, monitor hemoglobin. Tx per PCP DVT/GI PPX: warfarin --on hold as patient is anemic D/W RN and RT Patient is a DNR Discussed with Dr. Fierro Updated 10/02/20 Continue current vent support 10/450/40/5 DC sedation, attempt pressure support trial, tracheostomy is medically indicated secondary to inability to protect airway,Intubated 3 times. consider surgery consult Follow CXR/ABG --make changes as needed Continue ABX on cefepime Hemoglobin 6.3 today, hold Coumadin, monitor hemoglobin. Tx per PCP DVT/GI PPX: warfarin --on hold as patient is anemic D/W RN and RT Patient is a DNR CC time 30 minutes CLINTON PALAFOX MD Oct 10, 2020 10:12
--- NOTE | 2020-10-10 10:13 | NUR ---
SS following up with discharge planning. SS reviewed pt chart and discussed with pt RN. Pt is currently on the vent at 35%. COVID19 negative. Pt on Argatroban and IV Lasix. Pt on IV Cefepime. Trach in place. Dr. Henning being consulted for PEG placement. Pt accepted at [facility], ; fax [phone], pending insurance authorization. SS will continue to follow for discharge planning. Addendum: 10/10/20 at 1618 by CHIKIS JO SS SS received phone contact from [facility] stating that they may not be able to accept pt now because his caregiver, Antonieta, has notified them that she no longer is willing to sign admission paperwork. [facility] reporting that since pt has no other family they may not be able to accept. They stated that they need a contact in case pt codes again. RN notified. SS phoned and faxed referral to [facility], ; fax [phone].
--- NOTE | 2020-10-10 12:04 | PDOC ---
Date of Service: DATE: 10/10/20 TIME: 12:02 Objective: Objective: D/w nurse - no GI concerns, tentative plans for G tube placement last week. Vital Signs: Vital Signs Date Time Temp Pulse Resp B/P (MAP) Pulse Ox O2 Delivery O2 Flow Rate FiO2 10/10/20 11:18 98 Ventilator 10/10/20 11:15 79 15 131/85 (100) 10/10/20 08:06 98.9 98.9 Labs: Laboratory Tests Test 10/09/20 13:19 10/09/20 18:20 10/09/20 23:29 10/10/20 04:36 Glucose (Fingerstick) 169 mg/dL (70-99) 166 mg/dL (70-99) 148 mg/dL (70-99) 150 mg/dL (70-99) PE: GEN: chronically ill LUNGS: trach/vent, clear HEART: RRR ABD: soft, Dobhoff tube/feeds running NEURO/PSYCH: sedated A/P: Resp failure, encephalopathy s/p tracheostomy CAD, ICM, A Fib, h/o CVA, PAD COVID negative -- Plans for surgical G tube placement next week. Justicifation of Admission Dx: Justifications for Admission: Justification of Admission Dx: Yes CHF: Cardiac Arrhythmias SARAH ORR Oct 10, 2020 12:04
[2020-10-10] MEDS: ARGATROBAN PER PHARMACY. MC PRN (15:35)
--- NOTE | 2020-10-10 19:08 | PDOC ---
SURGICAL PROGRESS NOTE DATE: 10/10/20 TIME: 19:07 Subjective Asked to reengage for surgical G-tube Pt intubated, stable Vital Signs Vital Signs Date Time Temp Pulse Resp B/P (MAP) Pulse Ox O2 Delivery O2 Flow Rate FiO2 10/10/20 18:53 88 13 145/77 (99) 99 Ventilator 10/10/20 16:00 98.5 98.5 I&O Intake and Output 10/10/20 07:00 Intake Total 3023 ml Output Total 3975 ml Balance -952 ml IV Total 741 ml Tube Feeding 1532 ml Other 750 ml Output Urine Total 3975 ml Gastric Drainage Total 0 ml # Bowel Movements 3 General: No acute distress HEENT: Other (trach) Abdomen: Soft Labs Laboratory Tests Test 10/09/20 00:06 10/09/20 05:58 10/09/20 06:00 10/09/20 13:19 Glucose (Fingerstick) 135 mg/dL (70-99) 126 mg/dL (70-99) 169 mg/dL (70-99) Prothrombin Time 23.4 SEC (11.7-14.0) Prothromb Time International Ratio 2.1 (0.8-1.1) Activated Partial Thromboplast Time 100 SEC (24-38) Test 10/09/20 18:20 10/09/20 23:29 10/10/20 04:36 10/10/20 04:40 Glucose (Fingerstick) 166 mg/dL (70-99) 148 mg/dL (70-99) 150 mg/dL (70-99) White Blood Count 5.3 x10^3/uL (4.0-11.0) Red Blood Count 2.88 x10^6/uL (4.30-5.70) Hemoglobin 9.2 g/dL (13.0-17.5) Hematocrit 27.2 % (39.0-53.0) Mean Corpuscular Volume 94 fL (79-100) Mean Corpuscular Hemoglobin 32 pg (25-35) Mean Corpuscular Hemoglobin Concent 34 g/dL (31-37) Red Cell Distribution Width 17.0 % (11.5-14.5) Platelet Count 243 x10^3/uL (140-400) Prothrombin Time 19.1 SEC (11.7-14.0) Prothromb Time International Ratio 1.6 (0.8-1.1) Sodium Level 139 mmol/L (136-145) Potassium Level 3.5 mmol/L (3.5-5.1) Chloride Level 103 mmol/L (98-107) Carbon Dioxide Level 33 mmol/L (21-32) Anion Gap 3 (6-14) Blood Urea Nitrogen 17 mg/dL (8-26) Creatinine 0.6 mg/dL (0.7-1.3) Estimated GFR (Cockcroft-Gault) 132.4 Glucose Level 159 mg/dL (70-99) Calcium Level 8.4 mg/dL (8.5-10.1) Test 10/10/20 13:09 10/10/20 14:45 10/10/20 17:54 Glucose (Fingerstick) 165 mg/dL (70-99) 161 mg/dL (70-99) Activated Partial Thromboplast Time 94 SEC (24-38) Laboratory Tests Test 10/09/20 23:29 10/10/20 04:36 10/10/20 04:40 10/10/20 13:09 Glucose (Fingerstick) 148 mg/dL (70-99) 150 mg/dL (70-99) 165 mg/dL (70-99) White Blood Count 5.3 x10^3/uL (4.0-11.0) Red Blood Count 2.88 x10^6/uL (4.30-5.70) Hemoglobin 9.2 g/dL (13.0-17.5) Hematocrit 27.2 % (39.0-53.0) Mean Corpuscular Volume 94 fL (79-100) Mean Corpuscular Hemoglobin 32 pg (25-35) Mean Corpuscular Hemoglobin Concent 34 g/dL (31-37) Red Cell Distribution Width 17.0 % (11.5-14.5) Platelet Count 243 x10^3/uL (140-400) Prothrombin Time 19.1 SEC (11.7-14.0) Prothromb Time International Ratio 1.6 (0.8-1.1) Sodium Level 139 mmol/L (136-145) Potassium Level 3.5 mmol/L (3.5-5.1) Chloride Level 103 mmol/L (98-107) Carbon Dioxide Level 33 mmol/L (21-32) Anion Gap 3 (6-14) Blood Urea Nitrogen 17 mg/dL (8-26) Creatinine 0.6 mg/dL (0.7-1.3) Estimated GFR (Cockcroft-Gault) 132.4 Glucose Level 159 mg/dL (70-99) Calcium Level 8.4 mg/dL (8.5-10.1) Test 10/10/20 14:45 10/10/20 17:54 Activated Partial Thromboplast Time 94 SEC (24-38) Glucose (Fingerstick) 161 mg/dL (70-99) Problem List Problems Medical Problems: (1) NSTEMI (non-ST elevated myocardial infarction) Status: Acute (2) Obtundation Status: Acute (3) Respiratory arrest Status: Acute Assessment/Plan d/w cards will tentatively plan G-tube 10/18 Justicifation of Admission Dx: Justifications for Admission: Justification of Admission Dx: Yes CHF: Cardiac Arrhythmias SCAR BRO MD Oct 10, 2020 19:08
[2020-10-10] MEDS: ATORVASTATIN CALCIUM 40 MG TABLET. PO SCH (20:54)
[2020-10-10] MEDS: IV DEXTROSE 5 %-0.45 % NACL 1,000 ML IV SCH (21:26)
[2020-10-11] VITALS (23 sets, daily range): BP systolic 119–170; BP diastolic 63–87
[2020-10-11] MEDS: INSULIN LISPRO 300 UNITS/3 ML VIAL. SQ SCH ×4 (00:22→18:00)
[2020-10-11] MEDS: TIROFIBAN 5MG -0.9% NS 100 ML IV PRN ×3 (03:55→14:11)
[2020-10-11] MEDS: CEFEPIME HCL IV Push 2 GM VIAL. IVP SCH ×3 (06:30→20:43)
[2020-10-11 06:33] LABS: CALCIUM 8.6 mg/dL (8.5-10.1); CREATININE 0.7 mg/dL (0.7-1.3); GFR 110.9; POTASSIUM 3.9 mmol/L (3.5-5.1)
[2020-10-11 08:21] LABS: HEMATOCRIT 27.4 % (39.0-53.0); HEMOGLOBIN 9.1 g/dL (13.0-17.5); RED BLOOD COUNT 2.88 x10^6/uL (4.30-5.70); RED CELL DISTRIBUTION WIDTH 16.9 % (11.5-14.5); WHITE BLOOD COUNT 5.2 x10^3/uL (4.0-11.0)
[2020-10-11] MEDS: PANTOPRAZOLE IV PUSH 40 MG VIAL. IVP SCH (09:21)
[2020-10-11] MEDS: FUROSEMIDE 40 MG/4 ML VIAL. IVP SCH (09:21)
[2020-10-11] MEDS: METOPROLOL TART IMMED RELEASE 25 MG TABLET. PO SCH ×2 (09:22→19:40)
[2020-10-11] MEDS: POTASSIUM BICARB 20 MEQ EFFERVESCENT TABLET. PEG SCH (09:22)
[2020-10-11] MEDS: AMIODARONE HCL 200 MG TABLET. PO SCH (09:22)
--- NOTE | 2020-10-11 09:49 | PDOC ---
BENNY JOE MERCHANDISING CONSULTANT 10/11/20 0949: CARDIO Progress Notes Date and Time Date of Service 10/11/2020 Time of Evaluation 0920 Subjective Subjective: Other (off sedation, not responsive ) Vitals Vitals Vital Signs Date Time Temp Pulse Resp B/P (MAP) Pulse Ox O2 Delivery O2 Flow Rate FiO2 10/11/20 09:22 89 155/87 10/11/20 09:00 15 99 Ventilator 10/11/20 08:00 98.7 98.7 Weight Weight [ ] Input and Output Intake and Output Intake and Output 10/11/20 07:00 Intake Total 4008.61 ml Output Total 3500 ml Balance 508.61 ml IV Total 1726.61 ml Tube Feeding 1532 ml Other 750 ml Output Urine Total 3500 ml Gastric Drainage Total 0 ml Laboratory Labs Laboratory Tests Test 10/10/20 13:09 10/10/20 14:45 10/10/20 17:54 10/11/20 00:19 Glucose (Fingerstick) 165 mg/dL (70-99) 161 mg/dL (70-99) 158 mg/dL (70-99) Activated Partial Thromboplast Time 94 SEC (24-38) Test 10/11/20 05:50 10/11/20 05:52 White Blood Count 5.2 x10^3/uL (4.0-11.0) Red Blood Count 2.88 x10^6/uL (4.30-5.70) Hemoglobin 9.1 g/dL (13.0-17.5) Hematocrit 27.4 % (39.0-53.0) Mean Corpuscular Volume 95 fL (79-100) Mean Corpuscular Hemoglobin 32 pg (25-35) Mean Corpuscular Hemoglobin Concent 33 g/dL (31-37) Red Cell Distribution Width 16.9 % (11.5-14.5) Platelet Count 254 x10^3/uL (140-400) Prothrombin Time 21.0 SEC (11.7-14.0) Prothromb Time International Ratio 1.8 (0.8-1.1) Activated Partial Thromboplast Time 91 SEC (24-38) Sodium Level 139 mmol/L (136-145) Potassium Level 3.9 mmol/L (3.5-5.1) Chloride Level 101 mmol/L (98-107) Carbon Dioxide Level 34 mmol/L (21-32) Anion Gap 4 (6-14) Blood Urea Nitrogen 14 mg/dL (8-26) Creatinine 0.7 mg/dL (0.7-1.3) Estimated GFR (Cockcroft-Gault) 110.9 Glucose Level 135 mg/dL (70-99) Calcium Level 8.6 mg/dL (8.5-10.1) Glucose (Fingerstick) 137 mg/dL (70-99) Physical Exam HEENT: Neck Supple W Full Motion, Other (tracheostomy ) Chest: Symmetric LUNGS: Other (trach with vent) Heart: RRR (SR) Abdomen: Other (obese ) Extremities: Other (trace bilateral LE edema ) Neurology: other (not responsive ) Assessment Assessment 1. Acute on chronic respiratory failure with associated severe hypoglycemia and encephalopathy and COPD, CHF; s/p tracheostomy. mechanical vent 2. Metabolic encephalopathy with associated hypoglycemia. MRI revealed no new stroke 3. Acute on chronic diastolic/systolic CHF 4. CAD/STEMI: S/P complex PCI/stents to RCA/LAD 08/16/2020. [facility] 08/31 with ISR to RCA, S/P PCI 5. ICM: EF at 25% 6. PAD: S/P thrombolysis to right popliteal artery with large aneurysm. Needing future repair per vascular 7. 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 PAFIB: maintaining SR 10. Anemia: post transfusion. hgb stable 11. Hx of CVA 12. Dysphagia; needing PEG. GI recs noted. needing to be off Plavix x5 days. Unable to hold Plavix with recent ISR. PEG planned for PEG on 10/18 13. Anoxic encephalopathy Recommendations Holding plavix for PEG placement meantime will continue Aggrastat. Monitor PLT and Hgb. Continue argatroban and restart coumadin when PEG is placed May stop Aggrastat and argatroban 6 hours prior to PEG placement Secondary prevention. Eventually plavix and coumadin Lasix therapy, electrolyte replacement Amiodarone for rhythm maintenance. Supportive care Justicifation of Admission Dx: Justifications for Admission: Justification of Admission Dx: Yes CHF: Cardiac Arrhythmias EMELIA GRAY MD 10/11/20 1917: CARDIO Progress Notes Plan Plan There is no need to wait till 10/18 for PEG placement from a CV standpoint or from anticoag stand point. he would be safe to have PEG tube as early as friday. Unless OR scheduling is an issue, can proceed on friday. The patient was seen and interviewed as well as examined at the bedside. The chart was reviewed. The case was discussed. Agree with the plan of care. BENNY JOE APRN Oct 11, 2020 09:49 EMELIA GRAY MD Oct 11, 2020 19:17
--- NOTE | 2020-10-11 10:06 | PDOC ---
PULMONARY PROGRESS NOTES DATE: 10/11/20 TIME: 10:04 Subjective Patient has been on pressure support in the last 24 hours. Does not follow any commands. Off sedation. on argatroban per cardiology Status post tracheostomy 10/05 Vitals Vital Signs Date Time Temp Pulse Resp B/P (MAP) Pulse Ox O2 Delivery O2 Flow Rate FiO2 10/11/20 09:22 89 155/87 10/11/20 09:00 15 99 Ventilator 10/11/20 08:00 98.7 98.7 Comments ros unable to obtain sedated on vent General: No acute distress HEENT: Other (nc at perrl nose clear orally intubated neck no lad no thyromegaly) Lungs: Other (Tracheostomy) Cardiovascular: S1, S2 Abdomen: Soft, Non-tender, Other (Obese) Extremities: Other (1+ edema) Skin: Warm Labs Laboratory Tests Test 10/09/20 13:19 10/09/20 18:20 10/09/20 23:29 10/10/20 04:36 Glucose (Fingerstick) 169 mg/dL (70-99) 166 mg/dL (70-99) 148 mg/dL (70-99) 150 mg/dL (70-99) Test 10/10/20 04:40 10/10/20 13:09 10/10/20 14:45 10/10/20 17:54 White Blood Count 5.3 x10^3/uL (4.0-11.0) Red Blood Count 2.88 x10^6/uL (4.30-5.70) Hemoglobin 9.2 g/dL (13.0-17.5) Hematocrit 27.2 % (39.0-53.0) Mean Corpuscular Volume 94 fL (79-100) Mean Corpuscular Hemoglobin 32 pg (25-35) Mean Corpuscular Hemoglobin Concent 34 g/dL (31-37) Red Cell Distribution Width 17.0 % (11.5-14.5) Platelet Count 243 x10^3/uL (140-400) Prothrombin Time 19.1 SEC (11.7-14.0) Prothromb Time International Ratio 1.6 (0.8-1.1) Sodium Level 139 mmol/L (136-145) Potassium Level 3.5 mmol/L (3.5-5.1) Chloride Level 103 mmol/L (98-107) Carbon Dioxide Level 33 mmol/L (21-32) Anion Gap 3 (6-14) Blood Urea Nitrogen 17 mg/dL (8-26) Creatinine 0.6 mg/dL (0.7-1.3) Estimated GFR (Cockcroft-Gault) 132.4 Glucose Level 159 mg/dL (70-99) Calcium Level 8.4 mg/dL (8.5-10.1) Glucose (Fingerstick) 165 mg/dL (70-99) 161 mg/dL (70-99) Activated Partial Thromboplast Time 94 SEC (24-38) Test 10/11/20 00:19 10/11/20 05:50 10/11/20 05:52 Glucose (Fingerstick) 158 mg/dL (70-99) 137 mg/dL (70-99) White Blood Count 5.2 x10^3/uL (4.0-11.0) Red Blood Count 2.88 x10^6/uL (4.30-5.70) Hemoglobin 9.1 g/dL (13.0-17.5) Hematocrit 27.4 % (39.0-53.0) Mean Corpuscular Volume 95 fL (79-100) Mean Corpuscular Hemoglobin 32 pg (25-35) Mean Corpuscular Hemoglobin Concent 33 g/dL (31-37) Red Cell Distribution Width 16.9 % (11.5-14.5) Platelet Count 254 x10^3/uL (140-400) Prothrombin Time 21.0 SEC (11.7-14.0) Prothromb Time International Ratio 1.8 (0.8-1.1) Activated Partial Thromboplast Time 91 SEC (24-38) Sodium Level 139 mmol/L (136-145) Potassium Level 3.9 mmol/L (3.5-5.1) Chloride Level 101 mmol/L (98-107) Carbon Dioxide Level 34 mmol/L (21-32) Anion Gap 4 (6-14) Blood Urea Nitrogen 14 mg/dL (8-26) Creatinine 0.7 mg/dL (0.7-1.3) Estimated GFR (Cockcroft-Gault) 110.9 Glucose Level 135 mg/dL (70-99) Calcium Level 8.6 mg/dL (8.5-10.1) Laboratory Tests Test 10/10/20 13:09 10/10/20 14:45 10/10/20 17:54 10/11/20 00:19 Glucose (Fingerstick) 165 mg/dL (70-99) 161 mg/dL (70-99) 158 mg/dL (70-99) Activated Partial Thromboplast Time 94 SEC (24-38) Test 10/11/20 05:50 10/11/20 05:52 White Blood Count 5.2 x10^3/uL (4.0-11.0) Red Blood Count 2.88 x10^6/uL (4.30-5.70) Hemoglobin 9.1 g/dL (13.0-17.5) Hematocrit 27.4 % (39.0-53.0) Mean Corpuscular Volume 95 fL (79-100) Mean Corpuscular Hemoglobin 32 pg (25-35) Mean Corpuscular Hemoglobin Concent 33 g/dL (31-37) Red Cell Distribution Width 16.9 % (11.5-14.5) Platelet Count 254 x10^3/uL (140-400) Prothrombin Time 21.0 SEC (11.7-14.0) Prothromb Time International Ratio 1.8 (0.8-1.1) Activated Partial Thromboplast Time 91 SEC (24-38) Sodium Level 139 mmol/L (136-145) Potassium Level 3.9 mmol/L (3.5-5.1) Chloride Level 101 mmol/L (98-107) Carbon Dioxide Level 34 mmol/L (21-32) Anion Gap 4 (6-14) Blood Urea Nitrogen 14 mg/dL (8-26) Creatinine 0.7 mg/dL (0.7-1.3) Estimated GFR (Cockcroft-Gault) 110.9 Glucose Level 135 mg/dL (70-99) Calcium Level 8.6 mg/dL (8.5-10.1) Glucose (Fingerstick) 137 mg/dL (70-99) Medications Active Scripts Medications Dose Route/Sig Max Daily Dose Days Date Category Amiodarone Hcl 200 Mg Tablet 400 Mg PO DAILY 90 09/18/20 Rx [Warfarin Per Pharmacy] 1 EACH Each 1 Each PRN DAILY PRN 30 09/18/20 Rx Clopidogrel (Clopidogrel Bisulfate) 75 Mg Tablet 75 Mg PO DAILYWBKFT 90 09/18/20 Rx Glimepiride 4 Mg Tablet 1 Tab PO DAILY 09/13/20 Reported Furosemide 40 Mg Tablet 1 Tab PO BID 09/13/20 Reported Symbicort 160-4.5 Mcg Inhaler (Budesonide/Formoterol Fumarate) 10.2 Gm Hfa.aer.ad 1 Puff INH DAILY 09/13/20 Reported Losartan-Hctz 100-12.5 Mg Tab (Losartan/Hydrochlorothiazide) 1 Each Tablet 1 Tab PO DAILY 09/13/20 Reported Nitrofurantoin [place]-Mcr 100 Mg (Nitrofurantoin Monohyd/M-Cryst) 100 Mg Capsule 1 Cap PO BID 09/13/20 Reported Betamethasone Valerate 60 Ml Lotion 1 TP QHS 09/13/20 Reported Atorvastatin Calcium 40 Mg Tablet 1 Tab PO DAILY 09/13/20 Reported Diltiazem 24Hr Cd (Diltiazem HCl) 240 Mg Cap.er.24h 1 Cap PO DAILY 09/13/20 Reported Nystop (Nystatin) 60 Gm Powder 1 Sudheer TP BID 09/13/20 Reported Humalog (Insulin Lispro) 100 Unit/1 Ml Insuln.pen 0 Units SQ TIDWMEALS 30 08/06/18 Rx Duoneb 0.5-3(2.5) Mg/3 Ml (Albuterol/Ipratropium) 3 Ml Ampul.neb 3 Ml NEB RTQID 30 08/06/18 Rx Aspirin 325 Mg Tablet 325 Mg PO DAILYWBKFT 30 07/22/17 Rx Metoprolol Tartrate 25 Mg Tablet 25 Mg PO BID 30 07/22/17 Rx Montelukast Sodium Tablet (Montelukast Sodium) 10 Mg Tablet 10 Mg PO QHS 07/22/17 Rx Gabapentin 600 Mg Tablet 600 Mg PO BID 30 07/22/17 Rx Pepcid (Famotidine) 20 Mg Tablet 20 Mg PO BID 05/17/13 Reported Comments cxr reviewed 1.Improving interstitial prominence, persistent left basilar opacities. ett ok Impression . 1. Acute on chronic respiratory failure secondary to multifactorial etiologies including hypoglycemic encephalopathy. No evidence of new stroke. 2. Possible sepsis--- on antibiotics 3. Hypoglycemia./ encephalopathy 4. The patient with prior history of cerebrovascular accident with left-sided weakness. 5. Underlying chronic obstructive pulmonary disease. 6. Morbid obesity. 7. Peripheral vascular disease. 8. Abnormal CT chest with bibasilar atelectasis. No significant mucus plugging. Tiny pleural effusion seen. 9. Persistent encephalopathy. --ongoing 10. anemia Plan . Updated 10/11/2020 Continue current pressure support mode on a 24-hour basis as tolerated. Status post tracheostomy 10/05. Continue ABX monitor HGB, improved Follow CXR/ABG --make changes as needed DVT/GI PPX: warfarin --on hold .on argatroban per cardiology Awaiting PEG tube placement per surgery. Discussed with Dr. Mehta. PEG tube planned for next Friday D/W RN and RT Patient is a DNR Once PEG tube is placed, transfer to LTAC Updated 10/10/20 Continue current vent support 10/450/35/5 DC sedation start weaning as tolerated/CPAP trial Status post tracheostomy 10/05. Continue ABX monitor HGB, improved Follow CXR/ABG --make changes as needed DVT/GI PPX: warfarin --on hold .on argatroban per cardiology Awaiting PEG tube placement per surgery D/W RN and RT Patient is a DNR Updated 10/09/20 Continue current vent support 10/450/35/5 DC sedation start weaning as tolerated Status post tracheostomy 10/05. Continue ABX monitor HGB, improved Follow CXR/ABG --make changes as needed DVT/GI PPX: warfarin --on hold .on argatroban per cardiology Awaiting PEG tube placement per gi D/W RN and RT Patient is a DNR Updated 10/08/20 Continue current vent support 10/450/35/5 decrease sedation start weaning as tolerated Status post tracheostomy 10/05. Continue ABX monitor HGB, improved Follow CXR/ABG --make changes as needed DVT/GI PPX: warfarin --on hold on argatroban per cardiology Awaiting PEG tube placement per gi D/W RN and RT Patient is a DNR Updated 10/07/20 Continue current vent support 10/450/40/5 decrease sedation start weaning as tolerated Status post tracheostomy. plan to start PS weaning 24 hours post trach Continue ABX monitor HGB, improved Follow CXR/ABG --make changes as needed DVT/GI PPX: warfarin --on hold on argatoban per cardiology ?restart per PCP Awaiting PEG tube placement D/W RN and RT Patient is a DNR Updated 10/06/20 Continue current vent support 10/450/40/5 Status post tracheostomy. plan to start PS weaning 24 hours post trach Continue ABX monitor HGB, improved Follow CXR/ABG --make changes as needed DVT/GI PPX: warfarin --on hold restart per PCP Awaiting PEG tube placement D/W RN and RT Patient is a DNR Updated 10/04/20 Continue current vent support 10/450/40/5 attempt pressure support trial, tracheostomy is medically indicated secondary to inability to protect airway,Intubated 3 times. surgery planning trach in am plan to start PS weaning 24 hours post trach Continue ABX monitor HGB, improved Follow CXR/ABG --make changes as needed DVT/GI PPX: warfarin --on hold restart per PCP D/W RN and RT Patient is a DNR Updated 10/03/20 Continue current vent support 10/450/40/5 DC sedation, attempt pressure support trial, tracheostomy is medically indicated secondary to inability to protect airway,Intubated 3 times. surgery consult for tracheostomy Follow CXR/ABG --make changes as needed Continue ABX on cefepime Hemoglobin 6.3 today, hold Coumadin, monitor hemoglobin. Tx per PCP DVT/GI PPX: warfarin --on hold as patient is anemic D/W RN and RT Patient is a DNR Discussed with Dr. Fierro Updated 10/02/20 Continue current vent support 10/450/40/5 DC sedation, attempt pressure support trial, tracheostomy is medically indicated secondary to inability to protect airway,Intubated 3 times. consider surgery consult Follow CXR/ABG --make changes as needed Continue ABX on cefepime Hemoglobin 6.3 today, hold Coumadin, monitor hemoglobin. Tx per PCP DVT/GI PPX: warfarin --on hold as patient is anemic D/W RN and RT Patient is a DNR CC time 30 minutes CLINTON PALAFOX MD Oct 11, 2020 10:06
--- NOTE | 2020-10-11 10:13 | PDOC ---
G I PROGRESS NOTE Reason for Follow-up OP dysphagia/PEG? Subjective Unresponsive. Does open eyes to abdominal palpation. Objective No reports of any GI issues; on Dobbhoff feedings. Physical Exam Lungs clear anteriorly. RRR Abdomen soft, not distended. Few bowel sounds. Review of Relevant I have reviewed the following items denise (where applicable) has been applied. Labs Laboratory Tests Test 10/09/20 13:19 10/09/20 18:20 10/09/20 23:29 10/10/20 04:36 Glucose (Fingerstick) 169 mg/dL (70-99) 166 mg/dL (70-99) 148 mg/dL (70-99) 150 mg/dL (70-99) Test 10/10/20 04:40 10/10/20 13:09 10/10/20 14:45 10/10/20 17:54 White Blood Count 5.3 x10^3/uL (4.0-11.0) Red Blood Count 2.88 x10^6/uL (4.30-5.70) Hemoglobin 9.2 g/dL (13.0-17.5) Hematocrit 27.2 % (39.0-53.0) Mean Corpuscular Volume 94 fL (79-100) Mean Corpuscular Hemoglobin 32 pg (25-35) Mean Corpuscular Hemoglobin Concent 34 g/dL (31-37) Red Cell Distribution Width 17.0 % (11.5-14.5) Platelet Count 243 x10^3/uL (140-400) Prothrombin Time 19.1 SEC (11.7-14.0) Prothromb Time International Ratio 1.6 (0.8-1.1) Sodium Level 139 mmol/L (136-145) Potassium Level 3.5 mmol/L (3.5-5.1) Chloride Level 103 mmol/L (98-107) Carbon Dioxide Level 33 mmol/L (21-32) Anion Gap 3 (6-14) Blood Urea Nitrogen 17 mg/dL (8-26) Creatinine 0.6 mg/dL (0.7-1.3) Estimated GFR (Cockcroft-Gault) 132.4 Glucose Level 159 mg/dL (70-99) Calcium Level 8.4 mg/dL (8.5-10.1) Glucose (Fingerstick) 165 mg/dL (70-99) 161 mg/dL (70-99) Activated Partial Thromboplast Time 94 SEC (24-38) Test 10/11/20 00:19 10/11/20 05:50 10/11/20 05:52 Glucose (Fingerstick) 158 mg/dL (70-99) 137 mg/dL (70-99) White Blood Count 5.2 x10^3/uL (4.0-11.0) Red Blood Count 2.88 x10^6/uL (4.30-5.70) Hemoglobin 9.1 g/dL (13.0-17.5) Hematocrit 27.4 % (39.0-53.0) Mean Corpuscular Volume 95 fL (79-100) Mean Corpuscular Hemoglobin 32 pg (25-35) Mean Corpuscular Hemoglobin Concent 33 g/dL (31-37) Red Cell Distribution Width 16.9 % (11.5-14.5) Platelet Count 254 x10^3/uL (140-400) Prothrombin Time 21.0 SEC (11.7-14.0) Prothromb Time International Ratio 1.8 (0.8-1.1) Activated Partial Thromboplast Time 91 SEC (24-38) Sodium Level 139 mmol/L (136-145) Potassium Level 3.9 mmol/L (3.5-5.1) Chloride Level 101 mmol/L (98-107) Carbon Dioxide Level 34 mmol/L (21-32) Anion Gap 4 (6-14) Blood Urea Nitrogen 14 mg/dL (8-26) Creatinine 0.7 mg/dL (0.7-1.3) Estimated GFR (Cockcroft-Gault) 110.9 Glucose Level 135 mg/dL (70-99) Calcium Level 8.6 mg/dL (8.5-10.1) Laboratory Tests Test 10/10/20 13:09 10/10/20 14:45 10/10/20 17:54 10/11/20 00:19 Glucose (Fingerstick) 165 mg/dL (70-99) 161 mg/dL (70-99) 158 mg/dL (70-99) Activated Partial Thromboplast Time 94 SEC (24-38) Test 10/11/20 05:50 10/11/20 05:52 White Blood Count 5.2 x10^3/uL (4.0-11.0) Red Blood Count 2.88 x10^6/uL (4.30-5.70) Hemoglobin 9.1 g/dL (13.0-17.5) Hematocrit 27.4 % (39.0-53.0) Mean Corpuscular Volume 95 fL (79-100) Mean Corpuscular Hemoglobin 32 pg (25-35) Mean Corpuscular Hemoglobin Concent 33 g/dL (31-37) Red Cell Distribution Width 16.9 % (11.5-14.5) Platelet Count 254 x10^3/uL (140-400) Prothrombin Time 21.0 SEC (11.7-14.0) Prothromb Time International Ratio 1.8 (0.8-1.1) Activated Partial Thromboplast Time 91 SEC (24-38) Sodium Level 139 mmol/L (136-145) Potassium Level 3.9 mmol/L (3.5-5.1) Chloride Level 101 mmol/L (98-107) Carbon Dioxide Level 34 mmol/L (21-32) Anion Gap 4 (6-14) Blood Urea Nitrogen 14 mg/dL (8-26) Creatinine 0.7 mg/dL (0.7-1.3) Estimated GFR (Cockcroft-Gault) 110.9 Glucose Level 135 mg/dL (70-99) Calcium Level 8.6 mg/dL (8.5-10.1) Glucose (Fingerstick) 137 mg/dL (70-99) Vitals/I & O Vital Sign - Last 24 Hours 10/10/20 10/10/20 10/10/20 10/10/20 11:15 11:18 12:06 12:06 Temp 98.8 98.8 Pulse 79 79 Resp 15 12 B/P (MAP) 131/85 (100) 112/74 (87) Pulse Ox 99 98 98 O2 Delivery Ventilator Ventilator Ventilator Mechanical Ventilator 10/10/20 10/10/20 10/10/20 10/10/20 13:03 13:47 14:31 14:57 Pulse 82 78 Resp 14 14 B/P (MAP) 134/83 (100) 115/68 (84) Pulse Ox 98 97 98 97 O2 Delivery Ventilator Ventilator Ventilator 7200 10/10/20 10/10/20 10/10/20/31/21 15:17 16:00 16:02 17:03 Temp 98.5 98.5 Pulse 78 78 82 Resp 15 15 16 B/P (MAP) 112/68 (83) 124/77 (93) 144/89 (107) Pulse Ox 98 99 98 O2 Delivery Ventilator Ventilator Mechanical Ventilator Ventilator 10/10/20 10/10/20 10/10/20 10/10/20 17:57 18:20 18:53 20:00 Pulse 88 88 Resp 17 13 B/P (MAP) 140/77 (98) 145/77 (99) Pulse Ox 98 98 99 O2 Delivery 7200 Ventilator Ventilator Mechanical Ventilator 10/10/20 10/10/20 10/10/20 10/10/20 20:00 20:30 20:53 21:00 Temp 98.6 98.6 Pulse 84 88 100 Resp 15 16 B/P (MAP) 152/90 (110) 152/90 138/78 (98) Pulse Ox 99 99 98 O2 Delivery Ventilator Ventilator Ventilator 10/10/20 10/10/20 10/10/20 10/10/20 22:00 23:00 23:40 23:59 Pulse 76 93 Resp 16 17 B/P (MAP) 140/81 (100) 128/77 (94) Pulse Ox 99 98 99 O2 Delivery Ventilator Ventilator Ventilator Mechanical Ventilator 10/11/20 10/11/20 10/11/20 10/11/20 01:00 02:00 03:00 03:00 Temp 98.6 98.6 Pulse 79 85 83 Resp 19 17 16 B/P (MAP) 130/75 (93) 145/86 (105) 142/80 (100) Pulse Ox 98 97 97 97 O2 Delivery Ventilator Ventilator Ventilator Ventilator 10/11/20 10/11/20 10/11/20 10/11/20 04:00 04:00 05:00 05:08 Temp 98.9 98.9 Pulse 84 85 Resp 16 18 B/P (MAP) 140/76 (97) 137/78 (97) Pulse Ox 98 98 98 O2 Delivery Ventilator Mechanical Ventilator Ventilator Ventilator 10/11/20 10/11/20 10/11/20 10/11/20 06:00 07:00 08:00 08:00 Temp 98.7 98.7 Pulse 88 89 86 Resp 17 11 13 B/P (MAP) 147/85 (105) 155/87 (109) 152/87 (108) Pulse Ox 98 99 98 O2 Delivery Ventilator Ventilator pressure support Mechanical Ventilator 10/11/20 10/11/20 10/11/20 10/11/20 08:20 09:00 09:22 09:22 Pulse 84 89 89 Resp 15 B/P (MAP) 119/64 (82) 155/87 155/87 Pulse Ox 98 99 O2 Delivery 7200 Ventilator Intake and Output 10/10/20 10/10/20 10/11/20 15:00 23:00 07:00 Intake Total 200 ml 1996 ml 1812.61 ml Output Total 2000 ml 650 ml 850 ml Balance -1800 ml 1346 ml 962.61 ml Problem List Problems Medical Problems: (1) NSTEMI (non-ST elevated myocardial infarction) Status: Acute (2) Obtundation Status: Acute (3) Respiratory arrest Status: Acute Assessment OP dysphagia. Complicated PVD. Plan of Care Note Agree with planned surgical tube; probably safer than blind stick given needs to be on anticoagulant/antiplatelet during. Will sign off. Call if we can help. Justicifation of Admission Dx: Justifications for Admission: Justification of Admission Dx: Yes CHF: Cardiac Arrhythmias CLAY KNOX MD Oct 11, 2020 10:13
--- NOTE | 2020-10-11 13:18 | PDOC ---
[facility] PROGRESS NOTE Date of Service DOS: DATE: 10/11/20 TIME: 13:16 Chief Complaint Chief Complaint Acute anemia, likely due to acute blood loss due to multiple lab draws and multiple comorbidities. 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 Will determine timing of PEG tube placement before starting warfarin. Hypoglycemia protocol Continue empiric IV antibiotics with concern for aspiration pneumonia Pulmonology consult for vent management IV electrolyte replacement as needed Consider cardiology consult if troponins increase Argatroban for DVT prophylaxis Protonix while on the vent GI prophylaxis N.p.o. Full code Discussed with RN and SW Disposition inpatient management as above Surrogate decision maker is undesignated History of Present Illness History of Present Illness Mr Andrews is a 70-year-old male with a recent prolonged hospitalization for STEMI and respiratory failure for which she was treated with arterial thrombolysis for a right leg popliteal artery aneurysm and also had left heart cath with placement of a stent in the LAD and RCA comes in today after he was found obtunded at his [facility] facility. Apparently according to the nursing facility patient was in his usual state of health and he was conversational but then became altered. His blood glucose was found to be in the 30s. Glucose tabs and glucagon was given in route and his GCS reported at 6. Upon arrival patient's mental status did not improve and he was eventually intubated for airway protection. Of note EMS was bagging the patient through the nasal access. In the ED, patient was placed on a vent and pulmonology was consulted. Patient was also taken to the CT scanner for sanders scanning. Patient was started to wake up on the vent and sedation was ordered. 09/23: Patient examined at bedside. Intubated. Not on any sedation but unresponsive. Neurology consult in place. 09/24: Patient seen and examined at bedside. Remains intubated he is off sedation but still remains unresponsive. Planning for MRI brain in the morning. Further plan to be determined by MRI. 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 09/25: Afebrile, currently breathing on ventilator with FiO2 50%, PEEP 5. Had CODE BLUE in ICU this morning; received 2 rounds of CPR, epinephrine, and atropine with ROSC. MRI brain negative. Made DNR, and after discussion with Dr. Rubalcava he agrees. 09/26:: Afebrile. Still on vent, with FiO2 45%, PEEP 5. After discussion with Dr. Rubalcava yesterday, patient was made DNR. In the ED is likely a poor candidate for weaning trials may need trach in near future if no significant improvement. 09/27:: Afebrile. On vent with FiO2 40%, PEEP 5. Potassium 2.8 today, will replace. Warfarin has been resumed. Discussed with pharmacy, will resume aspirin and Plavix. May need tracheostomy by the end of the week if no improvement in mental status. 09/28:: Afebrile. On ventilator with FiO2 40%, PEEP 5. Warfarin has been resumed; INR 1.3 today. Some morning labs still pending; hemoglobin yesterday 7.3, will continue to monitor. Continue IV cefepime and supportive care. 09/29: Afebrile. Breathing on vent with FiO2 40%, PEEP 5. INR 1.2 today; [employer] to help with warfarin dosing. White count within normal range, renal function stable. Spoke with pharmacy about cefepime 1 g every 8 hours dosing; this has been changed to cefepime 2 g every 8 hours. 09/30: Afebrile. Currently breathing on vent with FiO2 40%, PEEP 5. Continue antibiotics, cefepime 2 g every 8 hours. INR 1.4; continue warfarin dosing per pharmacy. Possible tracheostomy at some point. Critical care time 30 minutes reviewing charts, labs, examination, discussion with RN. 10/01: T-max 100.3 F. On ventilator with FiO2 40%, PEEP 5. Continue antibiotics, cefepime 2 g every 8 hours. INR 1.4, still subtherapeutic; continue warfarin dosing per pharmacy. Possible tracheostomy at some point. 10/02: No acute events overnight. Patient saturating 99% on vent settings of 10/450/40/5. Patient will likely need a trach and PEG at some point. We will hold warfarin and start 2 units PRBC transfusion. Patient's chart, labs, images were reviewed and discussed with RN 10/03: No acute events overnight. Patient sat 100% on minimal vent settings. No sedation at this point and patient is opening his eyes spontaneously. Not much response or spontaneous movements. Surgery has been consulted for tracheostomy. Patient will also likely need a PEG tube. 10/04: No acute events overnight. Patient saturating 90% on minimal vent settings. T-max 100.4 overnight. Plan for trach tomorrow with surgery. Patient's chart, labs, images were reviewed and discussed with RN 10/05: No acute events overnight. Patient saturating 99% on minimal vent settings. Plan for tracheostomy today. Consent is provided by authorization by 2 physicians due to patient having no close relatives or DPOA. Will resume heparin and warfarin bridging tomorrow after tracheostomy 10/07: No acute events overnight. Patient seen and examined bedside. On trach vent. Saturating 99%. Pending GI evaluation for possible PEG placement after discussing with cardiology whether to continue with Plavix. Possibly place PEG if patient is only on aspirin and stopping argatroban. 10/08: No acute events overnight. Patient continues to be on trach mechanical vent. Saturating 100%. Pending decision from GI whether to proceed with PEG placement depending on the type of anticoagulation patient will be on. 10/09: No overnight events. On trach with vent support 40% FiO2 PEEP of 5. Currently argatroban and propofol for minimal sedation. When sedation is weaned he has no meaningful movements but has pulled at his tracheostomy site. Unable to hold plavix due to recently placed stents. 10/10: Afebrile today. On trach with vent support 40% FiO2 PEEP of 5. Continue argatroban and changed to Aggrastat in anticipation of surgical consultation for potential laparoscopic PEG placement. INR 1.6. Hb greater than 9 no sign ificant neurologic recovery today. Afebrile. On trach with vent support 40% FiO2 PEEP of 5. INR 1.8. Not making meaningful eye contact. Labs otherwise stable. CC time 31 minutes Vitals/I&O Vitals/I&O: Vital Signs Date Time Temp Pulse Resp B/P (MAP) Pulse Ox O2 Delivery O2 Flow Rate FiO2 10/11/20 11:50 99 840 vent 10/11/20 11:00 87 15 149/83 (105) 10/11/20 08:00 98.7 98.7 I & O 10/10/20 10/10/20 10/11/20 15:00 23:00 07:00 Intake Total 200 ml 1996 ml 1812.61 ml Output Total 2000 ml 650 ml 850 ml Balance -1800 ml 1346 ml 962.61 ml Physical Exam General: No acute distress Heart: Regular rate (SR), Other (distatne heart sounds) Lungs: Other (Tracheostomy) Abdomen: Soft Extremities: No cyanosis, Other (2-3+ bilateral LE pitting edema) Skin: No rashes, No significant lesion Labs Labs: Laboratory Tests Test 10/10/20 14:45 10/10/20 17:54 10/11/20 00:19 10/11/20 05:50 Activated Partial Thromboplast Time 94 SEC (24-38) 91 SEC (24-38) Glucose (Fingerstick) 161 mg/dL (70-99) 158 mg/dL (70-99) White Blood Count 5.2 x10^3/uL (4.0-11.0) Red Blood Count 2.88 x10^6/uL (4.30-5.70) Hemoglobin 9.1 g/dL (13.0-17.5) Hematocrit 27.4 % (39.0-53.0) Mean Corpuscular Volume 95 fL (79-100) Mean Corpuscular Hemoglobin 32 pg (25-35) Mean Corpuscular Hemoglobin Concent 33 g/dL (31-37) Red Cell Distribution Width 16.9 % (11.5-14.5) Platelet Count 254 x10^3/uL (140-400) Prothrombin Time 21.0 SEC (11.7-14.0) Prothromb Time International Ratio 1.8 (0.8-1.1) Sodium Level 139 mmol/L (136-145) Potassium Level 3.9 mmol/L (3.5-5.1) Chloride Level 101 mmol/L (98-107) Carbon Dioxide Level 34 mmol/L (21-32) Anion Gap 4 (6-14) Blood Urea Nitrogen 14 mg/dL (8-26) Creatinine 0.7 mg/dL (0.7-1.3) Estimated GFR (Cockcroft-Gault) 110.9 Glucose Level 135 mg/dL (70-99) Calcium Level 8.6 mg/dL (8.5-10.1) Test 10/11/20 05:52 Glucose (Fingerstick) 137 mg/dL (70-99) Assessment and Plan Assessmemt and Plan Problems Medical Problems: (1) NSTEMI (non-ST elevated myocardial infarction) Status: Acute (2) Obtundation Status: Acute (3) Respiratory arrest Status: Acute Comment Review of Relevant I have reviewed the following items denise (where applicable) has been applied. Justifications for Admission Other Justification Hypoglycemia and altered mental status. JARRED SINGH MD Oct 11, 2020 13:18
[2020-10-11] MEDS: ARGATROBAN 50 MG in IV NORMAL SALINE 50ML 50 ML IV PRN (13:59)
[2020-10-11] MEDS: IV DEXTROSE 5 %-0.45 % NACL 1,000 ML IV SCH (18:00)
[2020-10-11] MEDS: ATORVASTATIN CALCIUM 40 MG TABLET. PO SCH (19:39)
[2020-10-12] VITALS (24 sets, daily range): BP systolic 100–155; BP diastolic 62–82
[2020-10-12] MEDS: INSULIN LISPRO 300 UNITS/3 ML VIAL. SQ SCH ×4 (00:38→18:16)
[2020-10-12] MEDS: CEFEPIME HCL IV Push 2 GM VIAL. IVP SCH ×3 (06:01→22:20)
[2020-10-12 06:17] LABS: HEMATOCRIT 25.4 % (39.0-53.0); HEMOGLOBIN 8.4 g/dL (13.0-17.5); RED BLOOD COUNT 2.66 x10^6/uL (4.30-5.70); RED CELL DISTRIBUTION WIDTH 16.9 % (11.5-14.5); WHITE BLOOD COUNT 4.7 x10^3/uL (4.0-11.0)
[2020-10-12 06:22] LABS: CALCIUM 8.7 mg/dL (8.5-10.1); CREATININE 0.5 mg/dL (0.7-1.3); GFR 163.5
[2020-10-12 06:26] LABS: PROTHROMBIN TIME PATIENT 20.3 SEC (11.7-14.0)
--- NOTE | 2020-10-12 09:23 | PDOC ---
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: CARDIO Progress Notes Date and Time Date of Service 10/12/2020 Time of Evaluation 0900 Subjective Subjective: Other (off sedation, not responsive ) Vitals Vitals Vital Signs Date Time Temp Pulse Resp B/P (MAP) Pulse Ox O2 Delivery O2 Flow Rate FiO2 10/12/20 09:00 98 Ventilator 10/12/20 06:00 85 15 141/79 (99) 10/12/20 00:00 98.7 98.7 Weight Weight [ ] Input and Output Intake and Output Intake and Output 10/12/20 07:00 Intake Total 2359.29 ml Output Total 2245 ml Balance 114.29 ml Intake Oral 0 ml IV Total 700.29 ml Tube Feeding 1228 ml Other 431 ml Output Urine Total 2245 ml Laboratory Labs Laboratory Tests Test 10/11/20 18:21 10/12/20 00:24 10/12/20 05:45 10/12/20 05:58 Glucose (Fingerstick) 146 mg/dL (70-99) 157 mg/dL (70-99) 118 mg/dL (70-99) White Blood Count 4.7 x10^3/uL (4.0-11.0) Red Blood Count 2.66 x10^6/uL (4.30-5.70) Hemoglobin 8.4 g/dL (13.0-17.5) Hematocrit 25.4 % (39.0-53.0) Mean Corpuscular Volume 95 fL (79-100) Mean Corpuscular Hemoglobin 32 pg (25-35) Mean Corpuscular Hemoglobin Concent 33 g/dL (31-37) Red Cell Distribution Width 16.9 % (11.5-14.5) Platelet Count 223 x10^3/uL (140-400) Prothrombin Time 20.3 SEC (11.7-14.0) Prothromb Time International Ratio 1.8 (0.8-1.1) Activated Partial Thromboplast Time 85 SEC (24-38) Sodium Level 138 mmol/L (136-145) Potassium Level 4.0 mmol/L (3.5-5.1) Chloride Level 100 mmol/L (98-107) Carbon Dioxide Level 36 mmol/L (21-32) Anion Gap 2 (6-14) Blood Urea Nitrogen 17 mg/dL (8-26) Creatinine 0.5 mg/dL (0.7-1.3) Estimated GFR (Cockcroft-Gault) 163.5 Glucose Level 125 mg/dL (70-99) Calcium Level 8.7 mg/dL (8.5-10.1) Physical Exam HEENT: Neck Supple W Full Motion, Other (tracheostomy ) Chest: Symmetric LUNGS: Other (trach with vent) Heart: RRR (SR) Abdomen: Other (obese ) Extremities: Other (trace bilateral LE edema ) Neurology: other (not responsive ) Assessment Assessment 1. Acute on chronic respiratory failure with associated severe hypoglycemia and encephalopathy and COPD, CHF; s/p tracheostomy. mechanical vent 2. Metabolic encephalopathy with associated hypoglycemia. MRI revealed no new stroke 3. Acute on chronic diastolic/systolic CHF 4. CAD/STEMI: S/P complex PCI/stents to RCA/LAD 08/16/2020. [facility] 08/31 with ISR to RCA, S/P PCI 5. ICM: EF at 25% 6. PAD: S/P thrombolysis to right popliteal artery with large aneurysm. Needing future repair per vascular 7. 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 PAFIB: maintaining SR 10. Anemia: post transfusion. hgb stable 11. Hx of CVA 12. Dysphagia; needing PEG. GI recs noted. needing to be off Plavix x5 days. Unable to hold Plavix with recent ISR. Recommendations Holding plavix for PEG placement. Monitor PLT and Hgb. Continue argatroban and restart coumadin when PEG is placed May stop argatroban 6 hours prior to PEG placement. Would prefer PEG to be p laced on Friday to get plavix restarted Secondary prevention. Eventually plavix and coumadin Lasix therapy Amiodarone for rhythm maintenance. Supportive care Justicifation of Admission Dx: Justifications for Admission: Justification of Admission Dx: Yes CHF: Cardiac Arrhythmias EMELIA GRAY MD 10/12/20 1701: CARDIO Progress Notes Plan Plan The patient was seen and interviewed as well as examined at the bedside. The chart was reviewed. The case was discussed. Agree with the plan of care. BENNY JOE APRN Oct 12, 2020 09:23 EMELIA GRAY MD Oct 12, 2020 17:01
--- NOTE | 2020-10-12 10:16 | PDOC ---
[employer] [facility] PROGRESS NOTE Date of Service DOS: DATE: 10/12/20 TIME: 10:15 Chief Complaint Chief Complaint Acute anemia, likely due to acute blood loss due to multiple lab draws and multiple comorbidities. 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 Will determine timing of PEG tube placement before starting warfarin. Hypoglycemia protocol Continue empiric IV antibiotics with concern for aspiration pneumonia Pulmonology consult for vent management IV electrolyte replacement as needed Consider cardiology consult if troponins increase Argatroban for DVT prophylaxis Protonix while on the vent GI prophylaxis N.p.o. Full code Discussed with RN and SW Disposition inpatient management as above Surrogate decision maker is undesignated History of Present Illness History of Present Illness Mr Andrews is a 70-year-old male with a recent prolonged hospitalization for STEMI and respiratory failure for which she was treated with arterial thrombolysis for a right leg popliteal artery aneurysm and also had left heart cath with placement of a stent in the LAD and RCA comes in today after he was found obtunded at his longterm facility. Apparently according to the nursing facility patient was in his usual state of health and he was conversational but then became altered. His blood glucose was found to be in the 30s. Glucose tabs and glucagon was given in route and his GCS reported at 6. Upon arrival patient's mental status did not improve and he was eventually intubated for airway protection. Of note EMS was bagging the patient through the nasal access. In the ED, patient was placed on a vent and pulmonology was consulted. Patient was also taken to the CT scanner for sanders scanning. Patient was started to wake up on the vent and sedation was ordered. 09/23: Patient examined at bedside. Intubated. Not on any sedation but unresponsive. Neurology consult in place. 09/24: Patient seen and examined at bedside. Remains intubated he is off sedation but still remains unresponsive. Planning for MRI brain in the morning. Further plan to be determined by MRI. 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 09/25: Afebrile, currently breathing on ventilator with FiO2 50%, PEEP 5. Had CODE BLUE in ICU this morning; received 2 rounds of CPR, epinephrine, and atropine with ROSC. MRI brain negative. Made DNR, and after discussion with Dr. Rubalcava he agrees. 09/26:: Afebrile. Still on vent, with FiO2 45%, PEEP 5. After discussion with Dr. Rubalcava yesterday, patient was made DNR. In the ED is likely a poor candidate for weaning trials may need trach in near future if no significant improvement. 09/27:: Afebrile. On vent with FiO2 40%, PEEP 5. Potassium 2.8 today, will replace. Warfarin has been resumed. Discussed with pharmacy, will resume aspirin and Plavix. May need tracheostomy by the end of the week if no improvement in mental status. 09/28:: Afebrile. On ventilator with FiO2 40%, PEEP 5. Warfarin has been resumed; INR 1.3 today. Some morning labs still pending; hemoglobin yesterday 7.3, will continue to monitor. Continue IV cefepime and supportive care. 09/29: Afebrile. Breathing on vent with FiO2 40%, PEEP 5. INR 1.2 today; [employer] to help with warfarin dosing. White count within normal range, renal function stable. Spoke with pharmacy about cefepime 1 g every 8 hours dosing; this has been changed to cefepime 2 g every 8 hours. 09/30: Afebrile. Currently breathing on vent with FiO2 40%, PEEP 5. Continue antibiotics, cefepime 2 g every 8 hours. INR 1.4; continue warfarin dosing per pharmacy. Possible tracheostomy at some point. Critical care time 30 minutes reviewing charts, labs, examination, discussion with RN. 10/01: T-max 100.3 F. On ventilator with FiO2 40%, PEEP 5. Continue antibiotics, cefepime 2 g every 8 hours. INR 1.4, still subtherapeutic; continue warfarin dosing per pharmacy. Possible tracheostomy at some point. 10/02: No acute events overnight. Patient saturating 99% on vent settings of 10/450/40/5. Patient will likely need a trach and PEG at some point. We will hold warfarin and start 2 units PRBC transfusion. Patient's chart, labs, images were reviewed and discussed with RN 10/03: No acute events overnight. Patient sat 100% on minimal vent settings. No sedation at this point and patient is opening his eyes spontaneously. Not much response or spontaneous movements. Surgery has been consulted for tracheostomy. Patient will also likely need a PEG tube. 10/04: No acute events overnight. Patient saturating 90% on minimal vent settings. T-max 100.4 overnight. Plan for trach tomorrow with surgery. Patient's chart, labs, images were reviewed and discussed with RN 10/05: No acute events overnight. Patient saturating 99% on minimal vent settings. Plan for tracheostomy today. Consent is provided by authorization by 2 physicians due to patient having no close relatives or DPOA. Will resume heparin and warfarin bridging tomorrow after tracheostomy 10/07: No acute events overnight. Patient seen and examined bedside. On trach vent. Saturating 99%. Pending GI evaluation for possible PEG placement after discussing with cardiology whether to continue with Plavix. Possibly place PEG if patient is only on aspirin and stopping argatroban. 10/08: No acute events overnight. Patient continues to be on trach mechanical vent. Saturating 100%. Pending decision from GI whether to proceed with PEG placement depending on the type of anticoagulation patient will be on. 10/09: No overnight events. On trach with vent support 40% FiO2 PEEP of 5. Currently argatroban and propofol for minimal sedation. When sedation is weaned he has no meaningful movements but has pulled at his tracheostomy site. Unable to hold plavix due to recently placed stents. 10/10: Afebrile today. On trach with vent support 40% FiO2 PEEP of 5. Continue argatroban and changed to Aggrastat in anticipation of surgical consultation for potential laparoscopic PEG placement. INR 1.6. Hb greater than 9 no sign ificant neurologic recovery today. 10/11: Afebrile. On trach with vent support 40% FiO2 PEEP of 5. INR 1.8. Not making meaningful eye contact. Labs otherwise stable. Afebrile. Trach with vent support 40% FiO2 PEEP five O2 saturations 92%. INR 1.8, mag 1.8, Hb 8.4. Not following commands. Tentative plans for surgical PEG next week. CC time 30 minutes Vitals/I&O Vitals/I&O: Vital Signs Date Time Temp Pulse Resp B/P (MAP) Pulse Ox O2 Delivery O2 Flow Rate FiO2 10/12/20 09:00 98 Ventilator 10/12/20 06:00 85 15 141/79 (99) 10/12/20 00:00 98.7 98.7 I & O 10/11/20 10/11/20 10/12/20 15:00 23:00 07:00 Intake Total 200 ml 1259 ml 900.29 ml Output Total 1020 ml 625 ml 600 ml Balance -820 ml 634 ml 300.29 ml Physical Exam General: No acute distress Heart: Regular rate (SR), Other (distatne heart sounds) Lungs: Other (Tracheostomy) Abdomen: Soft Extremities: No cyanosis, Other (2-3+ bilateral LE pitting edema) Skin: No rashes, No significant lesion Labs Labs: Laboratory Tests Test 10/11/20 18:21 10/12/20 00:24 10/12/20 05:45 10/12/20 05:58 Glucose (Fingerstick) 146 mg/dL (70-99) 157 mg/dL (70-99) 118 mg/dL (70-99) White Blood Count 4.7 x10^3/uL (4.0-11.0) Red Blood Count 2.66 x10^6/uL (4.30-5.70) Hemoglobin 8.4 g/dL (13.0-17.5) Hematocrit 25.4 % (39.0-53.0) Mean Corpuscular Volume 95 fL (79-100) Mean Corpuscular Hemoglobin 32 pg (25-35) Mean Corpuscular Hemoglobin Concent 33 g/dL (31-37) Red Cell Distribution Width 16.9 % (11.5-14.5) Platelet Count 223 x10^3/uL (140-400) Prothrombin Time 20.3 SEC (11.7-14.0) Prothromb Time International Ratio 1.8 (0.8-1.1) Activated Partial Thromboplast Time 85 SEC (24-38) Sodium Level 138 mmol/L (136-145) Potassium Level 4.0 mmol/L (3.5-5.1) Chloride Level 100 mmol/L (98-107) Carbon Dioxide Level 36 mmol/L (21-32) Anion Gap 2 (6-14) Blood Urea Nitrogen 17 mg/dL (8-26) Creatinine 0.5 mg/dL (0.7-1.3) Estimated GFR (Cockcroft-Gault) 163.5 Glucose Level 125 mg/dL (70-99) Calcium Level 8.7 mg/dL (8.5-10.1) Magnesium Level 1.8 mg/dL (1.8-2.4) Assessment and Plan Assessmemt and Plan Problems Medical Problems: (1) NSTEMI (non-ST elevated myocardial infarction) Status: Acute (2) Obtundation Status: Acute (3) Respiratory arrest Status: Acute Comment Review of Relevant I have reviewed the following items denise (where applicable) has been applied. Justifications for Admission Other Justification Hypoglycemia and altered mental status. JARRED SINGH MD Oct 12, 2020 10:16
--- NOTE | 2020-10-12 10:20 | PDOC ---
PULMONARY PROGRESS NOTES DATE: 10/12/20 TIME: 10:18 Subjective Patient has been on pressure support on a 24-hour basis. He does at times trigger apneic alarms. Does not follow any commands. Off sedation. on argatroban per cardiology Status post tracheostomy 10/05 Vitals Vital Signs Date Time Temp Pulse Resp B/P (MAP) Pulse Ox O2 Delivery O2 Flow Rate FiO2 10/12/20 09:00 98 Ventilator 10/12/20 06:00 85 15 141/79 (99) 10/12/20 00:00 98.7 98.7 Comments ros unable to obtain sedated on vent General: No acute distress HEENT: Other (nc at perrl nose clear orally intubated neck no lad no thyromegaly) Lungs: Other (Tracheostomy) Cardiovascular: S1, S2 Abdomen: Soft, Non-tender, Other (Obese) Extremities: Other (1+ edema) Skin: Warm Labs Laboratory Tests Test 10/10/20 13:09 10/10/20 14:45 10/10/20 17:54 10/11/20 00:19 Glucose (Fingerstick) 165 mg/dL (70-99) 161 mg/dL (70-99) 158 mg/dL (70-99) Activated Partial Thromboplast Time 94 SEC (24-38) Test 10/11/20 05:50 10/11/20 05:52 10/11/20 18:21 10/12/20 00:24 White Blood Count 5.2 x10^3/uL (4.0-11.0) Red Blood Count 2.88 x10^6/uL (4.30-5.70) Hemoglobin 9.1 g/dL (13.0-17.5) Hematocrit 27.4 % (39.0-53.0) Mean Corpuscular Volume 95 fL (79-100) Mean Corpuscular Hemoglobin 32 pg (25-35) Mean Corpuscular Hemoglobin Concent 33 g/dL (31-37) Red Cell Distribution Width 16.9 % (11.5-14.5) Platelet Count 254 x10^3/uL (140-400) Prothrombin Time 21.0 SEC (11.7-14.0) Prothromb Time International Ratio 1.8 (0.8-1.1) Activated Partial Thromboplast Time 91 SEC (24-38) Sodium Level 139 mmol/L (136-145) Potassium Level 3.9 mmol/L (3.5-5.1) Chloride Level 101 mmol/L (98-107) Carbon Dioxide Level 34 mmol/L (21-32) Anion Gap 4 (6-14) Blood Urea Nitrogen 14 mg/dL (8-26) Creatinine 0.7 mg/dL (0.7-1.3) Estimated GFR (Cockcroft-Gault) 110.9 Glucose Level 135 mg/dL (70-99) Calcium Level 8.6 mg/dL (8.5-10.1) Glucose (Fingerstick) 137 mg/dL (70-99) 146 mg/dL (70-99) 157 mg/dL (70-99) Test 10/12/20 05:45 10/12/20 05:58 White Blood Count 4.7 x10^3/uL (4.0-11.0) Red Blood Count 2.66 x10^6/uL (4.30-5.70) Hemoglobin 8.4 g/dL (13.0-17.5) Hematocrit 25.4 % (39.0-53.0) Mean Corpuscular Volume 95 fL (79-100) Mean Corpuscular Hemoglobin 32 pg (25-35) Mean Corpuscular Hemoglobin Concent 33 g/dL (31-37) Red Cell Distribution Width 16.9 % (11.5-14.5) Platelet Count 223 x10^3/uL (140-400) Prothrombin Time 20.3 SEC (11.7-14.0) Prothromb Time International Ratio 1.8 (0.8-1.1) Activated Partial Thromboplast Time 85 SEC (24-38) Sodium Level 138 mmol/L (136-145) Potassium Level 4.0 mmol/L (3.5-5.1) Chloride Level 100 mmol/L (98-107) Carbon Dioxide Level 36 mmol/L (21-32) Anion Gap 2 (6-14) Blood Urea Nitrogen 17 mg/dL (8-26) Creatinine 0.5 mg/dL (0.7-1.3) Estimated GFR (Cockcroft-Gault) 163.5 Glucose Level 125 mg/dL (70-99) Calcium Level 8.7 mg/dL (8.5-10.1) Magnesium Level 1.8 mg/dL (1.8-2.4) Glucose (Fingerstick) 118 mg/dL (70-99) Laboratory Tests Test 10/11/20 18:21 10/12/20 00:24 10/12/20 05:45 10/12/20 05:58 Glucose (Fingerstick) 146 mg/dL (70-99) 157 mg/dL (70-99) 118 mg/dL (70-99) White Blood Count 4.7 x10^3/uL (4.0-11.0) Red Blood Count 2.66 x10^6/uL (4.30-5.70) Hemoglobin 8.4 g/dL (13.0-17.5) Hematocrit 25.4 % (39.0-53.0) Mean Corpuscular Volume 95 fL (79-100) Mean Corpuscular Hemoglobin 32 pg (25-35) Mean Corpuscular Hemoglobin Concent 33 g/dL (31-37) Red Cell Distribution Width 16.9 % (11.5-14.5) Platelet Count 223 x10^3/uL (140-400) Prothrombin Time 20.3 SEC (11.7-14.0) Prothromb Time International Ratio 1.8 (0.8-1.1) Activated Partial Thromboplast Time 85 SEC (24-38) Sodium Level 138 mmol/L (136-145) Potassium Level 4.0 mmol/L (3.5-5.1) Chloride Level 100 mmol/L (98-107) Carbon Dioxide Level 36 mmol/L (21-32) Anion Gap 2 (6-14) Blood Urea Nitrogen 17 mg/dL (8-26) Creatinine 0.5 mg/dL (0.7-1.3) Estimated GFR (Cockcroft-Gault) 163.5 Glucose Level 125 mg/dL (70-99) Calcium Level 8.7 mg/dL (8.5-10.1) Magnesium Level 1.8 mg/dL (1.8-2.4) Medications Active Scripts Medications Dose Route/Sig Max Daily Dose Days Date Category Amiodarone Hcl 200 Mg Tablet 400 Mg PO DAILY 90 09/18/20 Rx [Warfarin Per Pharmacy] 1 EACH Each 1 Each MC PRN DAILY PRN 30 09/18/20 Rx Clopidogrel (Clopidogrel Bisulfate) 75 Mg Tablet 75 Mg PO DAILYWBKFT 90 09/18/20 Rx Glimepiride 4 Mg Tablet 1 Tab PO DAILY 09/13/20 Reported Furosemide 40 Mg Tablet 1 Tab PO BID 09/13/20 Reported Symbicort 160-4.5 Mcg Inhaler (Budesonide/Formoterol Fumarate) 10.2 Gm Hfa.aer.ad 1 Puff INH DAILY 09/13/20 Reported Losartan-Hctz 100-12.5 Mg Tab (Losartan/Hydrochlorothiazide) 1 Each Tablet 1 Tab PO DAILY 09/13/20 Reported Nitrofurantoin [place]-Mcr 100 Mg (Nitrofurantoin Monohyd/M-Cryst) 100 Mg Capsule 1 Cap PO BID 09/13/20 Reported Betamethasone Valerate 60 Ml Lotion 1 TP QHS 09/13/20 Reported Atorvastatin Calcium 40 Mg Tablet 1 Tab PO DAILY 09/13/20 Reported Diltiazem 24Hr Cd (Diltiazem HCl) 240 Mg Cap.er.24h 1 Cap PO DAILY 09/13/20 Reported Nystop (Nystatin) 60 Gm Powder 1 Sudheer TP BID 09/13/20 Reported Humalog (Insulin Lispro) 100 Unit/1 Ml Insuln.pen 0 Units SQ TIDWMEALS 30 08/06/18 Rx Duoneb 0.5-3(2.5) Mg/3 Ml (Albuterol/Ipratropium) 3 Ml Ampul.neb 3 Ml NEB RTQID 30 08/06/18 Rx Aspirin 325 Mg Tablet 325 Mg PO DAILYWBKFT 30 07/22/17 Rx Metoprolol Tartrate 25 Mg Tablet 25 Mg PO BID 30 07/22/17 Rx Montelukast Sodium Tablet (Montelukast Sodium) 10 Mg Tablet 10 Mg PO QHS 07/22/17 Rx Gabapentin 600 Mg Tablet 600 Mg PO BID 30 07/22/17 Rx Pepcid (Famotidine) 20 Mg Tablet 20 Mg PO BID 05/17/13 Reported Comments cxr reviewed 1.Improving interstitial prominence, persistent left basilar opacities. ett ok Impression . 1. Acute on chronic respiratory failure secondary to multifactorial etiologies including hypoglycemic encephalopathy. No evidence of new stroke. 2. Possible sepsis--- on antibiotics 3. Hypoglycemia./ encephalopathy 4. The patient with prior history of cerebrovascular accident with left-sided weakness. 5. Underlying chronic obstructive pulmonary disease. 6. Morbid obesity. 7. Peripheral vascular disease. 8. Abnormal CT chest with bibasilar atelectasis. No significant mucus plugging. Tiny pleural effusion seen. 9. Persistent encephalopathy. --ongoing 10. anemia Plan . Updated 10/12/2020 Continue current pressure support mode on a 24-hour basis as tolerated. Status post tracheostomy 10/05. Continue ABX monitor HGB, improved Follow CXR/ABG --make changes as needed DVT/GI PPX: warfarin --on hold .on argatroban per cardiology . Plavix on hold per cardiology Awaiting PEG tube placement per surgery. Discussed with Dr. Mehta. PEG tube planned for this Friday D/W RN and RT Patient is a DNR Once PEG tube is placed, transfer to LTAC Updated 10/11/2020 Continue current pressure support mode on a 24-hour basis as tolerated. Status post tracheostomy 10/05. Continue ABX monitor HGB, improved Follow CXR/ABG --make changes as needed DVT/GI PPX: warfarin --on hold .on argatroban per cardiology Awaiting PEG tube placement per surgery. Discussed with Dr. Mehta. PEG tube planned for next Friday D/W RN and RT Patient is a DNR Once PEG tube is placed, transfer to LTAC Updated 10/10/20 Continue current vent support 10/450/35/5 DC sedation start weaning as tolerated/CPAP trial Status post tracheostomy 10/05. Continue ABX monitor HGB, improved Follow CXR/ABG --make changes as needed DVT/GI PPX: warfarin --on hold .on argatroban per cardiology Awaiting PEG tube placement per surgery D/W RN and RT Patient is a DNR Updated 10/09/20 Continue current vent support 10/450/35/5 DC sedation start weaning as tolerated Status post tracheostomy 10/05. Continue ABX monitor HGB, improved Follow CXR/ABG --make changes as needed DVT/GI PPX: warfarin --on hold .on argatroban per cardiology Awaiting PEG tube placement per gi D/W RN and RT Patient is a DNR Updated 10/08/20 Continue current vent support 10/450/35/5 decrease sedation start weaning as tolerated Status post tracheostomy 10/05. Continue ABX monitor HGB, improved Follow CXR/ABG --make changes as needed DVT/GI PPX: warfarin --on hold on argatroban per cardiology Awaiting PEG tube placement per gi D/W RN and RT Patient is a DNR Updated 10/07/20 Continue current vent support 10/450/40/5 decrease sedation start weaning as tolerated Status post tracheostomy. plan to start PS weaning 24 hours post trach Continue ABX monitor HGB, improved Follow CXR/ABG --make changes as needed DVT/GI PPX: warfarin --on hold on argatoban per cardiology ?restart per PCP Awaiting PEG tube placement D/W RN and RT Patient is a DNR Updated 10/06/20 Continue current vent support 10/450/40/5 Status post tracheostomy. plan to start PS weaning 24 hours post trach Continue ABX monitor HGB, improved Follow CXR/ABG --make changes as needed DVT/GI PPX: warfarin --on hold restart per PCP Awaiting PEG tube placement D/W RN and RT Patient is a DNR Updated 10/04/20 Continue current vent support 10/450/40/5 attempt pressure support trial, tracheostomy is medically indicated secondary to inability to protect airway,Intubated 3 times. surgery planning trach in am plan to start PS weaning 24 hours post trach Continue ABX monitor HGB, improved Follow CXR/ABG --make changes as needed DVT/GI PPX: warfarin --on hold restart per PCP D/W RN and RT Patient is a DNR Updated 10/03/20 Continue current vent support 10/450/40/5 DC sedation, attempt pressure support trial, tracheostomy is medically indicated secondary to inability to protect airway,Intubated 3 times. surgery consult for tracheostomy Follow CXR/ABG --make changes as needed Continue ABX on cefepime Hemoglobin 6.3 today, hold Coumadin, monitor hemoglobin. Tx per PCP DVT/GI PPX: warfarin --on hold as patient is anemic D/W RN and RT Patient is a DNR Discussed with Dr. Fierro Updated 10/02/20 Continue current vent support 10/450/40/5 DC sedation, attempt pressure support trial, tracheostomy is medically indicated secondary to inability to protect airway,Intubated 3 times. consider surgery consult Follow CXR/ABG --make changes as needed Continue ABX on cefepime Hemoglobin 6.3 today, hold Coumadin, monitor hemoglobin. Tx per PCP DVT/GI PPX: warfarin --on hold as patient is anemic D/W RN and RT Patient is a DNR CC time 30 minutes CLINTON PALAFOX MD Oct 12, 2020 10:20
[2020-10-12] MEDS: ARGATROBAN 50 MG in IV NORMAL SALINE 50ML 50 ML IV PRN ×2 (10:43→22:35)
[2020-10-12] MEDS: PANTOPRAZOLE IV PUSH 40 MG VIAL. IVP SCH (10:44)
[2020-10-12] MEDS: FUROSEMIDE 40 MG/4 ML VIAL. IVP SCH (10:44)
[2020-10-12] MEDS: POTASSIUM BICARB 20 MEQ EFFERVESCENT TABLET. PEG SCH (10:44)
[2020-10-12] MEDS: METOPROLOL TART IMMED RELEASE 25 MG TABLET. PO SCH ×2 (10:45→19:57)
[2020-10-12] MEDS: AMIODARONE HCL 200 MG TABLET. PO SCH (10:45)
[2020-10-12] MEDS: IV DEXTROSE 5 %-0.45 % NACL 1,000 ML IV SCH (11:04)
[2020-10-12] MEDS ORDERED: ALBUMIN HUMAN 25% 100 ML IV ONE (14:00)
[2020-10-12] MEDS ORDERED: FUROSEMIDE 40 MG/4 ML VIAL. IVP ONE (15:00)
[2020-10-12] MEDS: ARGATROBAN PER PHARMACY. MC PRN (16:30)
[2020-10-12] MEDS: ATORVASTATIN CALCIUM 40 MG TABLET. PO SCH (19:56)
[2020-10-13] VITALS (24 sets, daily range): BP systolic 102–138; BP diastolic 57–88
[2020-10-13] MEDS: INSULIN LISPRO 300 UNITS/3 ML VIAL. SQ SCH ×4 (00:19→17:45)
[2020-10-13] MEDS: CEFEPIME HCL IV Push 2 GM VIAL. IVP SCH ×3 (06:00→20:57)
--- NOTE | 2020-10-13 07:55 | PDOC ---
PULMONARY PROGRESS NOTES DATE: 10/13/20 TIME: 07:55 Subjective Discussed with RN No overnight events patient has been on pressure support on a 24-hour basis. He does at times trigger apneic alarms. Does not follow any commands. Off sedation. on argatroban per cardiology Status post tracheostomy 10/05 Vitals Vital Signs Date Time Temp Pulse Resp B/P (MAP) Pulse Ox O2 Delivery O2 Flow Rate FiO2 10/13/20 07:20 99 Ventilator 10/13/20 07:00 86 16 122/68 (86) 10/13/20 06:00 98.6 98.6 General: No acute distress HEENT: Other (nc at perrl nose clear orally intubated neck no lad no thyromegaly) Lungs: Other (Tracheostomy) Cardiovascular: S1, S2 Abdomen: Soft, Non-tender, Other (Obese) Extremities: Other (1+ edema) Skin: Warm Labs Laboratory Tests Test 10/11/20 18:21 10/12/20 00:24 10/12/20 05:45 10/12/20 05:58 Glucose (Fingerstick) 146 mg/dL (70-99) 157 mg/dL (70-99) 118 mg/dL (70-99) White Blood Count 4.7 x10^3/uL (4.0-11.0) Red Blood Count 2.66 x10^6/uL (4.30-5.70) Hemoglobin 8.4 g/dL (13.0-17.5) Hematocrit 25.4 % (39.0-53.0) Mean Corpuscular Volume 95 fL (79-100) Mean Corpuscular Hemoglobin 32 pg (25-35) Mean Corpuscular Hemoglobin Concent 33 g/dL (31-37) Red Cell Distribution Width 16.9 % (11.5-14.5) Platelet Count 223 x10^3/uL (140-400) Prothrombin Time 20.3 SEC (11.7-14.0) Prothromb Time International Ratio 1.8 (0.8-1.1) Activated Partial Thromboplast Time 85 SEC (24-38) Sodium Level 138 mmol/L (136-145) Potassium Level 4.0 mmol/L (3.5-5.1) Chloride Level 100 mmol/L (98-107) Carbon Dioxide Level 36 mmol/L (21-32) Anion Gap 2 (6-14) Blood Urea Nitrogen 17 mg/dL (8-26) Creatinine 0.5 mg/dL (0.7-1.3) Estimated GFR (Cockcroft-Gault) 163.5 Glucose Level 125 mg/dL (70-99) Calcium Level 8.7 mg/dL (8.5-10.1) Magnesium Level 1.8 mg/dL (1.8-2.4) Test 10/12/20 15:26 10/12/20 18:12 10/13/20 00:08 10/13/20 05:53 Glucose (Fingerstick) 159 mg/dL (70-99) 152 mg/dL (70-99) 151 mg/dL (70-99) 128 mg/dL (70-99) Test 10/13/20 06:15 Activated Partial Thromboplast Time 79 SEC (24-38) Laboratory Tests Test 10/12/20 15:10/12/20 18:12 10/13/20 00:08 10/13/20 05:53 Glucose (Fingerstick) 159 mg/dL (70-99) 152 mg/dL (70-99) 151 mg/dL (70-99) 128 mg/dL (70-99) Test 10/13/20 06:15 Activated Partial Thromboplast Time 79 SEC (24-38) Medications Active Scripts Medications Dose Route/Sig Max Daily Dose Days Date Category Amiodarone Hcl 200 Mg Tablet 400 Mg PO DAILY 09/18/20 Rx [Warfarin Per Pharmacy] 1 EACH Each 1 Each MC PRN DAILY PRN 30 09/18/20 Rx Clopidogrel (Clopidogrel Bisulfate) 75 Mg Tablet 75 Mg PO DAILYWBKFT 90 09/18/20 Rx Glimepiride 4 Mg Tablet 1 Tab PO DAILY 09/13/20 Reported Furosemide 40 Mg Tablet 1 Tab PO BID 09/13/20 Reported Symbicort 160-4.5 Mcg Inhaler (Budesonide/Formoterol Fumarate) 10.2 Gm Hfa.aer.ad 1 Puff INH DAILY 09/13/20 Reported Losartan-Hctz 100-12.5 Mg Tab (Losartan/Hydrochlorothiazide) 1 Each Tablet 1 Tab PO DAILY 09/13/20 Reported Nitrofurantoin [place]-Mcr 100 Mg (Nitrofurantoin Monohyd/M-Cryst) 100 Mg Capsule 1 Cap PO BID 09/13/20 Reported Betamethasone Valerate 60 Ml Lotion 1 TP QHS 09/13/20 Reported Atorvastatin Calcium 40 Mg Tablet 1 Tab PO DAILY 09/13/20 Reported Diltiazem 24Hr Cd (Diltiazem HCl) 240 Mg Cap.er.24h 1 Cap PO DAILY 09/13/20 Reported Nystop (Nystatin) 60 Gm Powder 1 Sudheer TP BID 09/13/20 Reported Humalog (Insulin Lispro) 100 Unit/1 Ml Insuln.pen 0 Units SQ TIDWMEALS 08/06/18 Rx Duoneb 0.5-3(2.5) Mg/3 Ml (Albuterol/Ipratropium) 3 Ml Ampul.neb 3 Ml NEB RTQID 08/06/18 Rx Aspirin 325 Mg Tablet 325 Mg PO DAILYWBKFT 30 07/22/17 Rx Metoprolol Tartrate 25 Mg Tablet 25 Mg PO BID 30 07/22/17 Rx Montelukast Sodium Tablet (Montelukast Sodium) 10 Mg Tablet 10 Mg PO QHS 07/22/17 Rx Gabapentin 600 Mg Tablet 600 Mg PO BID 30 07/22/17 Rx Pepcid (Famotidine) 20 Mg Tablet 20 Mg PO BID 05/17/13 Reported Impression . 1. Acute on chronic respiratory failure secondary to multifactorial etiologies including hypoglycemic encephalopathy. No evidence of new stroke. 2. Possible sepsis--- on antibiotics 3. Hypoglycemia./ encephalopathy 4. The patient with prior history of cerebrovascular accident with left-sided weakness. 5. Underlying chronic obstructive pulmonary disease. 6. Morbid obesity. 7. Peripheral vascular disease. 8. Abnormal CT chest with bibasilar atelectasis. No significant mucus plugging. Tiny pleural effusion seen. Plan . Updated 10/13 Discussed with RN Continue pressure support PEG scheduled for next week Follow cardiology input Nutritional support Long-term prognosis poor Updated 10/12/2020 Continue current pressure support mode on a 24-hour basis as tolerated. Status post tracheostomy 10/05. Continue ABX monitor HGB, improved Follow CXR/ABG --make changes as needed DVT/GI PPX: warfarin --on hold .on argatroban per cardiology . Plavix on hold per cardiology Awaiting PEG tube placement per surgery. Discussed with Dr. Mehta. PEG tube planned for this Friday D/W RN and RT Patient is a DNR Once PEG tube is placed, transfer to LTAC HELENA MACHADO MD Oct 13, 2020 07:55
[2020-10-13] MEDS: PANTOPRAZOLE IV PUSH 40 MG VIAL. IVP SCH (08:09)
[2020-10-13] MEDS: FUROSEMIDE 40 MG/4 ML VIAL. IVP SCH (08:09)
[2020-10-13] MEDS: AMIODARONE HCL 200 MG TABLET. PO SCH (08:11)
[2020-10-13] MEDS: POTASSIUM BICARB 20 MEQ EFFERVESCENT TABLET. PEG SCH (08:12)
[2020-10-13] MEDS: METOPROLOL TART IMMED RELEASE 25 MG TABLET. PO SCH ×2 (08:12→20:58)
--- NOTE | 2020-10-13 08:29 | PDOC ---
[facility] [facility] PROGRESS NOTE Date of Service DOS: DATE: 10/13/20 TIME: 08:25 Chief Complaint Chief Complaint Acute anemia, likely due to acute blood loss due to multiple lab draws and multiple comorbidities. 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 Will determine timing of PEG tube placement before starting warfarin. Hypoglycemia protocol Continue empiric IV antibiotics with concern for aspiration pneumonia Pulmonology consult for vent management IV electrolyte replacement as needed Consider cardiology consult if troponins increase Argatroban for DVT prophylaxis Protonix while on the vent GI prophylaxis N.p.o. Full code Discussed with RN and SW Disposition inpatient management as above Surrogate decision maker is undesignated History of Present Illness History of Present Illness Mr Andrews is a 70-year-old male with a recent prolonged hospitalization for STEMI and respiratory failure for which she was treated with arterial thrombolysis for a right leg popliteal artery aneurysm and also had left heart cath with placement of a stent in the LAD and RCA comes in today after he was found obtunded at his longterm facility. Apparently according to the nursing facility patient was in his usual state of health and he was conversational but then became altered. His blood glucose was found to be in the 30s. Glucose tabs and glucagon was given in route and his GCS reported at 6. Upon arrival patient's mental status did not improve and he was eventually intubated for airway protection. Of note EMS was bagging the patient through the nasal access. In the ED, patient was placed on a vent and pulmonology was consulted. Patient was also taken to the CT scanner for sanders scanning. Patient was started to wake up on the vent and sedation was ordered. 09/23: Patient examined at bedside. Intubated. Not on any sedation but unresponsive. Neurology consult in place. 09/24: Patient seen and examined at bedside. Remains intubated he is off sedation but still remains unresponsive. Planning for MRI brain in the morning. Further plan to be determined by MRI. 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 09/25: Afebrile, currently breathing on ventilator with FiO2 50%, PEEP 5. Had CODE BLUE in ICU this morning; received 2 rounds of CPR, epinephrine, and atropine with ROSC. MRI brain negative. Made DNR, and after discussion with Dr. Rubalcava he agrees. 09/26:: Afebrile. Still on vent, with FiO2 45%, PEEP 5. After discussion with Dr. Rubalcava yesterday, patient was made DNR. In the ED is likely a poor candidate for weaning trials may need trach in near future if no significant improvement. 09/27:: Afebrile. On vent with FiO2 40%, PEEP 5. Potassium 2.8 today, will replace. Warfarin has been resumed. Discussed with pharmacy, will resume aspirin and Plavix. May need tracheostomy by the end of the week if no improvement in mental status. 09/28:: Afebrile. On ventilator with FiO2 40%, PEEP 5. Warfarin has been resumed; INR 1.3 today. Some morning labs still pending; hemoglobin yesterday 7.3, will continue to monitor. Continue IV cefepime and supportive care. 09/29: Afebrile. Breathing on vent with FiO2 40%, PEEP 5. INR 1.2 today; BitMethod to help with warfarin dosing. White count within normal range, renal function stable. Spoke with pharmacy about cefepime 1 g every 8 hours dosing; this has been changed to cefepime 2 g every 8 hours. 09/30: Afebrile. Currently breathing on vent with FiO2 40%, PEEP 5. Continue antibiotics, cefepime 2 g every 8 hours. INR 1.4; continue warfarin dosing per pharmacy. Possible tracheostomy at some point. Critical care time 30 minutes reviewing charts, labs, examination, discussion with RN. 10/01: T-max 100.3 F. On ventilator with FiO2 40%, PEEP 5. Continue antibiotics, cefepime 2 g every 8 hours. INR 1.4, still subtherapeutic; continue warfarin dosing per pharmacy. Possible tracheostomy at some point. 10/02: No acute events overnight. Patient saturating 99% on vent settings of 10/450/40/5. Patient will likely need a trach and PEG at some point. We will hold warfarin and start 2 units PRBC transfusion. Patient's chart, labs, images were reviewed and discussed with RN 10/03: No acute events overnight. Patient sat 100% on minimal vent settings. No sedation at this point and patient is opening his eyes spontaneously. Not much response or spontaneous movements. Surgery has been consulted for tracheostomy. Patient will also likely need a PEG tube. 10/04: No acute events overnight. Patient saturating 90% on minimal vent settings. T-max 100.4 overnight. Plan for trach tomorrow with surgery. Patient's chart, labs, images were reviewed and discussed with RN 10/05: No acute events overnight. Patient saturating 99% on minimal vent settings. Plan for tracheostomy today. Consent is provided by authorization by 2 physicians due to patient having no close relatives or DPOA. Will resume heparin and warfarin bridging tomorrow after tracheostomy 10/07: No acute events overnight. Patient seen and examined bedside. On trach vent. Saturating 99%. Pending GI evaluation for possible PEG placement after discussing with cardiology whether to continue with Plavix. Possibly place PEG if patient is only on aspirin and stopping argatroban. 10/08: No acute events overnight. Patient continues to be on trach mechanical vent. Saturating 100%. Pending decision from GI whether to proceed with PEG placement depending on the type of anticoagulation patient will be on. 10/09: No overnight events. On trach with vent support 40% FiO2 PEEP of 5. Currently argatroban and propofol for minimal sedation. When sedation is weaned he has no meaningful movements but has pulled at his tracheostomy site. Unable to hold plavix due to recently placed stents. 10/10: Afebrile today. On trach with vent support 40% FiO2 PEEP of 5. Continue argatroban and changed to Aggrastat in anticipation of surgical consultation for potential laparoscopic PEG placement. INR 1.6. Hb greater than 9 no sign ificant neurologic recovery today. 10/11: Afebrile. On trach with vent support 40% FiO2 PEEP of 5. INR 1.8. Not making meaningful eye contact. Labs otherwise stable. 10/12: Afebrile. Trach with vent support 40% FiO2 PEEP five O2 saturations 92%. INR 1.8, mag 1.8, Hb 8.4. Not following commands. Tentative plans for surgical PEG next week. Afebrile. Trach with vent support 40% FiO2 PEEP 5. Eyes open, not tracking or following commands. Holding Plavix. On argatroban. CC time 30 minutes Vitals/I&O Vitals/I&O: Vital Signs Date Time Temp Pulse Resp B/P (MAP) Pulse Ox O2 Delivery O2 Flow Rate FiO2 10/13/20 08:12 93 138/73 10/13/20 07:20 99 Ventilator 10/13/20 07:00 16 10/13/20 06:00 98.6 98.6 I & O 10/12/20 10/12/20 10/13/20 15:00 23:00 07:00 Intake Total 200 ml 1912 ml 838.05 ml Output Total 1850 ml 3450 ml 510 ml Balance -1650 ml -1538 ml 328.05 ml Physical Exam General: No acute distress Heart: Regular rate (SR), Other (distatne heart sounds) Lungs: Other (Tracheostomy) Abdomen: Soft Extremities: No cyanosis, Other (2-3+ bilateral LE pitting edema) Skin: No rashes, No significant lesion Labs Labs: Laboratory Tests Test 10/12/20 15:26 10/12/20 18:12 10/13/20 00:08 10/13/20 05:53 Glucose (Fingerstick) 159 mg/dL (70-99) 152 mg/dL (70-99) 151 mg/dL (70-99) 128 mg/dL (70-99) Test 10/13/20 06:15 Activated Partial Thromboplast Time 79 SEC (24-38) Assessment and Plan Assessmemt and Plan Problems Medical Problems: (1) NSTEMI (non-ST elevated myocardial infarction) Status: Acute (2) Obtundation Status: Acute (3) Respiratory arrest Status: Acute Comment Review of Relevant I have reviewed the following items denise (where applicable) has been applied. Medications: Current Medications Medications (Trade) Dose Ordered Sig/Dru Route PRN Reason Start Time Stop Time Status Last Admin Dose Admin Albumin Human 100 ml @ 100 mls/hr 1X ONCE IV 10/12/20 14:00 10/12/20 14:59 DC 10/12/20 15:22 Furosemide (Lasix) 40 mg 1X ONCE IVP 10/12/20 15:00 10/12/20 15:01 DC 10/12/20 15:22 Justifications for Admission Other Justification Hypoglycemia and altered mental status. JARRED SINGH MD Oct 13, 2020 08:29
--- NOTE | 2020-10-13 09:44 | PDOC ---
BENNY JOE [employer] 10/13/20 0944: CARDIO Progress Notes Date and Time Date of Service 10/13/2020 Time of Evaluation 0850 Subjective Subjective: Other (off sedation, not responsive ) Vitals Vitals Vital Signs Date Time Temp Pulse Resp B/P (MAP) Pulse Ox O2 Delivery O2 Flow Rate FiO2 10/13/20 09:00 89 18 132/88 (103) 99 Ventilator 10/13/20 08:00 98.8 98.8 Weight Weight [ ] Input and Output Intake and Output Intake and Output 10/13/20 07:00 Intake Total 2950.05 ml Output Total 5810 ml Balance -2859.95 ml IV Total 1426.05 ml Tube Feeding 1093 ml Other 431 ml Output Urine Total 5810 ml Laboratory Labs Laboratory Tests Test 10/12/20 15:26 10/12/20 18:12 10/13/20 00:08 10/13/20 05:53 Glucose (Fingerstick) 159 mg/dL (70-99) 152 mg/dL (70-99) 151 mg/dL (70-99) 128 mg/dL (70-99) Test 10/13/20 06:15 Activated Partial Thromboplast Time 79 SEC (24-38) Physical Exam HEENT: Neck Supple W Full Motion, Other (tracheostomy ) Chest: Symmetric LUNGS: Other (trach with vent) Heart: RRR (SR) Abdomen: Other (obese ) Extremities: Other (trace bilateral LE edema ) Neurology: other (not responsive ) Assessment Assessment 1. Acute on chronic respiratory failure with associated severe hypoglycemia and encephalopathy and COPD, CHF; s/p tracheostomy. mechanical vent 2. Metabolic encephalopathy with associated hypoglycemia. MRI revealed no new stroke 3. Acute on chronic diastolic/systolic CHF: better compensated 4. CAD/STEMI: S/P complex PCI/stents to RCA/LAD 08/16/2020. C 08/31 with ISR to RCA, S/P PCI 5. ICM: EF at 25% 6. PAD: S/P thrombolysis to right popliteal artery with large aneurysm. Needing future repair per vascular 7. 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 PAFIB: maintaining SR 10. Anemia: post transfusion. hgb stable 11. Hx of CVA 12. Dysphagia; needing PEG, dobhoff in place Recommendations Holding plavix for PEG placement. Monitor PLT and Hgb. Continue argatroban and restart coumadin when PEG is placed May stop argatroban 6 hours prior to PEG placement. PEG next Wed. Start on ASA Secondary prevention. Eventually plavix and coumadin Lasix therapy Amiodarone for rhythm maintenance. Supportive care Justicifation of Admission Dx: Justifications for Admission: Justification of Admission Dx: Yes CHF: Cardiac Arrhythmias EMELIA GRAY MD 10/17/20 0316: CARDIO Progress Notes Plan Plan Late entry for 10/13/20 The patient was seen and interviewed as well as examined at the bedside. The chart was reviewed. The case was discussed. Agree with the plan of care. BENNY JOE APRN Oct 13, 2020 09:44 EMELIA GRAY MD Oct 17, 2020 03:16
[2020-10-13] MEDS ORDERED: ASPIRIN CHEWABLE 81 MG TABLET. PO ONE (10:30)
[2020-10-13] MEDS: ARGATROBAN PER PHARMACY. MC PRN (16:34)
[2020-10-13] MEDS: ATORVASTATIN CALCIUM 40 MG TABLET. PO SCH (20:58)
[2020-10-14] VITALS (24 sets, daily range): BP systolic 101–135; BP diastolic 55–80
[2020-10-14] MEDS: ARGATROBAN 50 MG in IV NORMAL SALINE 50ML 50 ML IV PRN ×2 (05:05→21:43)
[2020-10-14] MEDS: INSULIN LISPRO 300 UNITS/3 ML VIAL. SQ SCH ×5 (05:42→23:45)
[2020-10-14] MEDS: CEFEPIME HCL IV Push 2 GM VIAL. IVP SCH ×3 (05:48→20:36)
[2020-10-14 05:55] LABS: HEMATOCRIT 25.8 % (39.0-53.0); HEMOGLOBIN 8.7 g/dL (13.0-17.5); RED BLOOD COUNT 2.74 x10^6/uL (4.30-5.70); RED CELL DISTRIBUTION WIDTH 16.9 % (11.5-14.5)
[2020-10-14 06:11] LABS: CALCIUM 8.9 mg/dL (8.5-10.1); CREATININE 0.7 mg/dL (0.7-1.3); GFR 110.9; POTASSIUM 3.8 mmol/L (3.5-5.1)
--- NOTE | 2020-10-14 07:38 | PDOC ---
PULMONARY PROGRESS NOTES DATE: 10/14/20 TIME: 07:38 Subjective Patient currently on assist control ventilation Tolerated pressure support yesterday Does not follow any commands Vitals Vital Signs Date Time Temp Pulse Resp B/P (MAP) Pulse Ox O2 Delivery O2 Flow Rate FiO2 10/14/20 07:00 78 12 135/80 (98) 100 Ventilator 10/14/20 04:00 98.3 98.3 General: No acute distress HEENT: Other (nc at perrl nose clear orally intubated neck no lad no thyromegaly) Lungs: Other (Tracheostomy) Cardiovascular: S1, S2 Abdomen: Soft, Non-tender, Other (Obese) Extremities: Other (1+ edema) Skin: Warm Labs Laboratory Tests Test 10/12/20 15:26 10/12/20 18:12 10/13/20 00:08 10/13/20 05:53 Glucose (Fingerstick) 159 mg/dL (70-99) 152 mg/dL (70-99) 151 mg/dL (70-99) 128 mg/dL (70-99) Test 10/13/20 06:15 10/13/20 12:21 10/13/20 17:44 10/14/20 00:07 Activated Partial Thromboplast Time 79 SEC (24-38) Glucose (Fingerstick) 164 mg/dL (70-99) 143 mg/dL (70-99) 138 mg/dL (70-99) Test 10/14/20 05:30 10/14/20 05:42 White Blood Count 5.0 x10^3/uL (4.0-11.0) Red Blood Count 2.74 x10^6/uL (4.30-5.70) Hemoglobin 8.7 g/dL (13.0-17.5) Hematocrit 25.8 % (39.0-53.0) Mean Corpuscular Volume 94 fL (79-100) Mean Corpuscular Hemoglobin 32 pg (25-35) Mean Corpuscular Hemoglobin Concent 34 g/dL (31-37) Red Cell Distribution Width 16.9 % (11.5-14.5) Platelet Count 227 x10^3/uL (140-400) Prothrombin Time 20.0 SEC (11.7-14.0) Prothromb Time International Ratio 1.7 (0.8-1.1) Activated Partial Thromboplast Time 65 SEC (24-38) Sodium Level 134 mmol/L (136-145) Potassium Level 3.8 mmol/L (3.5-5.1) Chloride Level 96 mmol/L (98-107) Carbon Dioxide Level 37 mmol/L (21-32) Anion Gap 1 (6-14) Blood Urea Nitrogen 22 mg/dL (8-26) Creatinine 0.7 mg/dL (0.7-1.3) Estimated GFR (Cockcroft-Gault) 110.9 Glucose Level 134 mg/dL (70-99) Calcium Level 8.9 mg/dL (8.5-10.1) Glucose (Fingerstick) 126 mg/dL (70-99) Laboratory Tests Test 10/13/20 12:21 10/13/20 17:44 10/14/20 00:07 10/14/20 05:30 Glucose (Fingerstick) 164 mg/dL (70-99) 143 mg/dL (70-99) 138 mg/dL (70-99) White Blood Count 5.0 x10^3/uL (4.0-11.0) Red Blood Count 2.74 x10^6/uL (4.30-5.70) Hemoglobin 8.7 g/dL (13.0-17.5) Hematocrit 25.8 % (39.0-53.0) Mean Corpuscular Volume 94 fL (79-100) Mean Corpuscular Hemoglobin 32 pg (25-35) Mean Corpuscular Hemoglobin Concent 34 g/dL (31-37) Red Cell Distribution Width 16.9 % (11.5-14.5) Platelet Count 227 x10^3/uL (140-400) Prothrombin Time 20.0 SEC (11.7-14.0) Prothromb Time International Ratio 1.7 (0.8-1.1) Activated Partial Thromboplast Time 65 SEC (24-38) Sodium Level 134 mmol/L (136-145) Potassium Level 3.8 mmol/L (3.5-5.1) Chloride Level 96 mmol/L (98-107) Carbon Dioxide Level 37 mmol/L (21-32) Anion Gap 1 (6-14) Blood Urea Nitrogen 22 mg/dL (8-26) Creatinine 0.7 mg/dL (0.7-1.3) Estimated GFR (Cockcroft-Gault) 110.9 Glucose Level 134 mg/dL (70-99) Calcium Level 8.9 mg/dL (8.5-10.1) Test 10/14/20 05:42 Glucose (Fingerstick) 126 mg/dL (70-99) Medications Active Scripts Medications Dose Route/Sig Max Daily Dose Days Date Category Amiodarone Hcl 200 Mg Tablet 400 Mg PO DAILY 09/18/20 Rx [Warfarin Per Pharmacy] 1 EACH Each 1 Each MC PRN DAILY PRN 09/18/20 Rx Clopidogrel (Clopidogrel Bisulfate) 75 Mg Tablet 75 Mg PO DAILYWBK09/18/20 Rx Glimepiride 4 Mg Tablet 1 Tab PO DAILY 09/13/20 Reported Furosemide 40 Mg Tablet 1 Tab PO BID 09/13/20 Reported Symbicort 160-4.5 Mcg Inhaler (Budesonide/Formoterol Fumarate) 10.2 Gm Hfa.aer.ad 1 Puff INH DAILY 09/13/20 Reported Losartan-Hctz 100-12.5 Mg Tab (Losartan/Hydrochlorothiazide) 1 Each Tablet 1 Tab PO DAILY 09/13/20 Reported Nitrofurantoin [place]-Mcr 100 Mg (Nitrofurantoin Monohyd/M-Cryst) 100 Mg Capsule 1 Cap PO BID 09/13/20 Reported Betamethasone Valerate 60 Ml Lotion 1 TP QHS 09/13/20 Reported Atorvastatin Calcium 40 Mg Tablet 1 Tab PO DAILY 09/13/20 Reported Diltiazem 24Hr Cd (Diltiazem HCl) 240 Mg Cap.er.24h 1 Cap PO DAILY 09/13/20 Reported Nystop (Nystatin) 60 Gm Powder 1 Sudheer TP BID 09/13/20 Reported Humalog (Insulin Lispro) 100 Unit/1 Ml Insuln.pen 0 Units SQ TIDWMEALS 08/06/18 Rx Duoneb 0.5-3(2.5) Mg/3 Ml (Albuterol/Ipratropium) 3 Ml Ampul.neb 3 Ml NEB RTQID 08/06/18 Rx Aspirin 325 Mg Tablet 325 Mg PO DAILYWBKFT 07/22/17 Rx Metoprolol Tartrate 25 Mg Tablet 25 Mg PO BID 07/22/17 Rx Montelukast Sodium Tablet (Montelukast Sodium) 10 Mg Tablet 10 Mg PO QHS 07/22/17 Rx Gabapentin 600 Mg Tablet 600 Mg PO BID 30 07/22/17 Rx Pepcid (Famotidine) 20 Mg Tablet 20 Mg PO BID 05/17/13 Reported Impression . 1. Acute on chronic respiratory failure secondary to multifactorial etiologies including hypoglycemic encephalopathy. No evidence of new stroke. 2. Possible sepsis--- on antibiotics 3. Hypoglycemia./ encephalopathy 4. The patient with prior history of cerebrovascular accident with left-sided weakness. 5. Underlying chronic obstructive pulmonary disease. 6. Morbid obesity. 7. Peripheral vascular disease. 8. Abnormal CT chest with bibasilar atelectasis. No significant mucus plugging. Tiny pleural effusion seen. Plan . Updated 10/14 Discussed with RT, continue pressure support Yesterday blood sugar dropped, given D10 Discussed with RN Nutritional support Cardiology following Long-term prognosis is poor Transfer to LTAC if possible updated 10/13 Discussed with RN Continue pressure support PEG scheduled for next week Follow cardiology input Nutritional support Long-term prognosis poor HELENA MACHADO MD Oct 14, 2020 07:38
[2020-10-14] MEDS: ASPIRIN CHEWABLE 81 MG TABLET. PO SCH (08:01)
[2020-10-14] MEDS: METOPROLOL TART IMMED RELEASE 25 MG TABLET. PO SCH ×2 (08:02→20:36)
[2020-10-14] MEDS: POTASSIUM BICARB 20 MEQ EFFERVESCENT TABLET. PEG SCH (08:02)
[2020-10-14] MEDS: PANTOPRAZOLE IV PUSH 40 MG VIAL. IVP SCH (08:03)
[2020-10-14] MEDS: AMIODARONE HCL 200 MG TABLET. PO SCH (08:03)
[2020-10-14] MEDS: FUROSEMIDE 40 MG/4 ML VIAL. IVP SCH (08:03)
--- NOTE | 2020-10-14 10:25 | PDOC ---
[facility] PROGRESS NOTE Date of Service DOS: DATE: 10/14/20 TIME: 10:23 Chief Complaint Chief Complaint Acute anemia, likely due to acute blood loss due to multiple lab draws and multiple comorbidities. 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 Will determine timing of PEG tube placement before starting warfarin. Hypoglycemia protocol Continue empiric IV antibiotics with concern for aspiration pneumonia Pulmonology consult for vent management IV electrolyte replacement as needed Consider cardiology consult if troponins increase Argatroban for DVT prophylaxis Protonix while on the vent GI prophylaxis N.p.o. Full code Discussed with RN and SW Disposition inpatient management as above Surrogate decision maker is undesignated History of Present Illness History of Present Illness Mr Andrews is a 70-year-old male with a recent prolonged hospitalization for STEMI and respiratory failure for which she was treated with arterial thrombolysis for a right leg popliteal artery aneurysm and also had left heart cath with placement of a stent in the LAD and RCA comes in today after [facility]. Apparently according to the nursing facility patient was in his usual state of health and he was conversational but then became altered. His blood glucose was found to be in the 30s. Glucose tabs and glucagon was given in route and his GCS reported at 6. Upon arrival patient's mental status did not improve and he was eventually intubated for airway protection. Of note EMS was bagging the patient through the nasal access. In the ED, patient was placed on a vent and pulmonology was consulted. Patient was also taken to the CT scanner for sanders scanning. Patient was started to wake up on the vent and sedation was ordered. 09/23: Patient examined at bedside. Intubated. Not on any sedation but unresponsive. Neurology consult in place. 09/24: Patient seen and examined at bedside. Remains intubated he is off sedation but still remains unresponsive. Planning for MRI brain in the morning. Further plan to be determined by MRI. 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 09/25: Afebrile, currently breathing on ventilator with FiO2 50%, PEEP 5. Had CODE BLUE in ICU this morning; received 2 rounds of CPR, epinephrine, and atropine with ROSC. MRI brain negative. Made DNR, and after discussion with Dr. Rubalcava he agrees. 09/26:: Afebrile. Still on vent, with FiO2 45%, PEEP 5. After discussion with Dr. Rubalcava yesterday, patient was made DNR. In the ED is likely a poor candidate for weaning trials may need trach in near future if no significant improvement. 09/27:: Afebrile. On vent with FiO2 40%, PEEP 5. Potassium 2.8 today, will replace. Warfarin has been resumed. Discussed with pharmacy, will resume aspirin and Plavix. May need tracheostomy by the end of the week if no improvement in mental status. 09/28:: Afebrile. On ventilator with FiO2 40%, PEEP 5. Warfarin has been resumed; INR 1.3 today. Some morning labs still pending; hemoglobin yesterday 7.3, will continue to monitor. Continue IV cefepime and supportive care. 09/29: Afebrile. Breathing on vent with FiO2 40%, PEEP 5. INR 1.2 today; OnMyBlock to help with warfarin dosing. White count within normal range, renal function stable. Spoke with pharmacy about cefepime 1 g every 8 hours dosing; this has been changed to cefepime 2 g every 8 hours. 09/30: Afebrile. Currently breathing on vent with FiO2 40%, PEEP 5. Continue antibiotics, cefepime 2 g every 8 hours. INR 1.4; continue warfarin dosing per pharmacy. Possible tracheostomy at some point. Critical care time 30 minutes reviewing charts, labs, examination, discussion with RN. 10/01: T-max 100.3 F. On ventilator with FiO2 40%, PEEP 5. Continue antibiotics, cefepime 2 g every 8 hours. INR 1.4, still subtherapeutic; continue warfarin dosing per pharmacy. Possible tracheostomy at some point. 10/02: No acute events overnight. Patient saturating 99% on vent settings of 10/450/40/5. Patient will likely need a trach and PEG at some point. We will hold warfarin and start 2 units PRBC transfusion. Patient's chart, labs, images were reviewed and discussed with RN 10/03: No acute events overnight. Patient sat 100% on minimal vent settings. No sedation at this point and patient is opening his eyes spontaneously. Not much response or spontaneous movements. Surgery has been consulted for tracheostomy. Patient will also likely need a PEG tube. 10/04: No acute events overnight. Patient saturating 90% on minimal vent settings. T-max 100.4 overnight. Plan for trach tomorrow with surgery. Patient's chart, labs, images were reviewed and discussed with RN 10/05: No acute events overnight. Patient saturating 99% on minimal vent settings. Plan for tracheostomy today. Consent is provided by authorization by 2 physicians due to patient having no close relatives or DPOA. Will resume heparin and warfarin bridging tomorrow after tracheostomy 10/07: No acute events overnight. Patient seen and examined bedside. On trach vent. Saturating 99%. Pending GI evaluation for possible PEG placement after discussing with cardiology whether to continue with Plavix. Possibly place PEG if patient is only on aspirin and stopping argatroban. 10/08: No acute events overnight. Patient continues to be on trach mechanical vent. Saturating 100%. Pending decision from GI whether to proceed with PEG placement depending on the type of anticoagulation patient will be on. 10/09: No overnight events. On trach with vent support 40% FiO2 PEEP of 5. Currently argatroban and propofol for minimal sedation. When sedation is weaned he has no meaningful movements but has pulled at his tracheostomy site. Unable to hold plavix due to recently placed stents. 10/10: Afebrile today. On trach with vent support 40% FiO2 PEEP of 5. Continue argatroban and changed to Aggrastat in anticipation of surgical consultation for potential laparoscopic PEG placement. INR 1.6. Hb greater than 9 no sign ificant neurologic recovery today. 10/11: Afebrile. On trach with vent support 40% FiO2 PEEP of 5. INR 1.8. Not making meaningful eye contact. Labs otherwise stable. 10/12: Afebrile. Trach with vent support 40% FiO2 PEEP five O2 saturations 92%. INR 1.8, mag 1.8, Hb 8.4. Not following commands. Tentative plans for surgical PEG next week. 10/13: Afebrile. Trach with vent support 40% FiO2 PEEP 5. Eyes open, not tracking or following commands. Holding Plavix. On argatroban. 10/14: Afebrile. Trach with vent support 40% FiO2 PEEP of 5. Will open eyes intermittently not necessarily to voice. Good urine output. Labs stable. Tentative plan for PEG 10/18/2020 CC time 30 minutes Vitals/I&O Vitals/I&O: Vital Signs Date Time Temp Pulse Resp B/P (MAP) Pulse Ox O2 Delivery O2 Flow Rate FiO2 10/14/20 10:00 76 11 119/65 (83) 99 Ventilator 10/14/20 08:00 99.0 99.0 I & O 10/13/20 10/13/20 10/14/20 14:59 22:59 06:59 Intake Total 200 ml 200 ml 1630 ml Output Total 2370 ml 430 ml 525 ml Balance -2170 ml -230 ml 1105 ml Physical Exam General: No acute distress Heart: Regular rate (SR), Other (distatne heart sounds) Lungs: Other (Tracheostomy) Abdomen: Soft Extremities: No cyanosis, Other (2-3+ bilateral LE pitting edema) Skin: No rashes, No significant lesion Labs Labs: Laboratory Tests Test 10/13/20 12:21 10/13/20 17:44 10/14/20 00:07 10/14/20 05:30 Glucose (Fingerstick) 164 mg/dL (70-99) 143 mg/dL (70-99) 138 mg/dL (70-99) White Blood Count 5.0 x10^3/uL (4.0-11.0) Red Blood Count 2.74 x10^6/uL (4.30-5.70) Hemoglobin 8.7 g/dL (13.0-17.5) Hematocrit 25.8 % (39.0-53.0) Mean Corpuscular Volume 94 fL (79-100) Mean Corpuscular Hemoglobin 32 pg (25-35) Mean Corpuscular Hemoglobin Concent 34 g/dL (31-37) Red Cell Distribution Width 16.9 % (11.5-14.5) Platelet Count 227 x10^3/uL (140-400) Prothrombin Time 20.0 SEC (11.7-14.0) Prothromb Time International Ratio 1.7 (0.8-1.1) Activated Partial Thromboplast Time 65 SEC (24-38) Sodium Level 134 mmol/L (136-145) Potassium Level 3.8 mmol/L (3.5-5.1) Chloride Level 96 mmol/L (98-107) Carbon Dioxide Level 37 mmol/L (21-32) Anion Gap 1 (6-14) Blood Urea Nitrogen 22 mg/dL (8-26) Creatinine 0.7 mg/dL (0.7-1.3) Estimated GFR (Cockcroft-Gault) 110.9 Glucose Level 134 mg/dL (70-99) Calcium Level 8.9 mg/dL (8.5-10.1) Test 10/14/20 05:42 Glucose (Fingerstick) 126 mg/dL (70-99) Assessment and Plan Assessmemt and Plan Problems Medical Problems: (1) NSTEMI (non-ST elevated myocardial infarction) Status: Acute (2) Obtundation Status: Acute (3) Respiratory arrest Status: Acute Comment Review of Relevant I have reviewed the following items denise (where applicable) has been applied. Medications: Current Medications Medications (Trade) Dose Ordered Sig/Dru Route PRN Reason Start Time Stop Time Status Last Admin Dose Admin Aspirin (Aspirin Chewable) 81 mg 1X ONCE PO 10/13/20 10:30 10/13/20 10:31 DC 10/13/20 12:25 Aspirin (Aspirin Chewable) 81 mg DAILYWBKFT PO 10/14/20 08:00 10/14/20 08:01 Justifications for Admission Other Justification Hypoglycemia and altered mental status. JARRED SINGH MD Oct 14, 2020 10:25
--- NOTE | 2020-10-14 11:44 | PDOC ---
PROGRESS NOTES Date of Service: DATE: 10/14/20 TIME: 11:38 Subjective Subjective s/p trach, opening eyes intermittently, comfortable Objective Objective Vital Signs Date Time Temp Pulse Resp B/P (MAP) Pulse Ox O2 Delivery O2 Flow Rate FiO2 10/14/20 11:00 77 18 115/63 (80) 98 Ventilator 10/14/20 08:00 99.0 99.0 Intake and Output 10/14/20 07:00 Intake Total 2030 ml Output Total 3325 ml Balance -1295 ml IV Total 76 ml Tube Feeding 1453 ml Other 501 ml Output Urine Total 3325 ml Physical Exam Abdomen: Soft Heart: Regular rate (SR), Other (distatne heart sounds) Extremities: No cyanosis, Other (2-3+ bilateral LE pitting edema) General: No acute distress HEENT: Other (trach) Lungs: Other (diminished, mechanical vent in place. ) Psych/Mental Status: Other (sedated) Skin: No rashes, No significant lesion Assessment Assessment 1. Acute on chronic respiratory failure with associated severe hypoglycemia and encephalopathy and COPD, CHF; s/p tracheostomy. mechanical vent. Pulmonary team following. 2. Metabolic encephalopathy with associated hypoglycemia. MRI revealed no new stroke 3. Acute on chronic diastolic/systolic CHF: better compensated 4. CAD/STEMI: S/P complex PCI/stents to RCA/LAD 08/16/2020. [facility] 08/31 with ISR to RCA, S/P PCI, clinically stable. Telemetry did not show any significant arrhythmias. 5. ICM: EF at 25%, clinically well compensated. 6. PAD: S/P thrombolysis to right popliteal artery with large aneurysm. Needing future repair per vascular. Continue argatroban and restart Coumadin after PEG placement 7. 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 PAFIB: maintaining SR. Continue amiodarone for rhythm maintenance. 10. Anemia: post transfusion. 11. Hx of CVA 12. Dysphagia; needing PEG, dobhoff in place Plan Plan of Care Problems Medical Problems: (1) NSTEMI (non-ST elevated myocardial infarction) Status: Acute (2) Obtundation Status: Acute (3) Respiratory arrest Status: Acute Comment Review of Relevant I have reviewed the following items denise (where applicable) has been applied. Labs Laboratory Tests Test 10/13/20 12:21 10/13/20 17:44 10/14/20 00:07 10/14/20 05:30 Glucose (Fingerstick) 164 mg/dL (70-99) 143 mg/dL (70-99) 138 mg/dL (70-99) White Blood Count 5.0 x10^3/uL (4.0-11.0) Red Blood Count 2.74 x10^6/uL (4.30-5.70) Hemoglobin 8.7 g/dL (13.0-17.5) Hematocrit 25.8 % (39.0-53.0) Mean Corpuscular Volume 94 fL (79-100) Mean Corpuscular Hemoglobin 32 pg (25-35) Mean Corpuscular Hemoglobin Concent 34 g/dL (31-37) Red Cell Distribution Width 16.9 % (11.5-14.5) Platelet Count 227 x10^3/uL (140-400) Prothrombin Time 20.0 SEC (11.7-14.0) Prothromb Time International Ratio 1.7 (0.8-1.1) Activated Partial Thromboplast Time 65 SEC (24-38) Sodium Level 134 mmol/L (136-145) Potassium Level 3.8 mmol/L (3.5-5.1) Chloride Level 96 mmol/L (98-107) Carbon Dioxide Level 37 mmol/L (21-32) Anion Gap 1 (6-14) Blood Urea Nitrogen 22 mg/dL (8-26) Creatinine 0.7 mg/dL (0.7-1.3) Estimated GFR (Cockcroft-Gault) 110.9 Glucose Level 134 mg/dL (70-99) Calcium Level 8.9 mg/dL (8.5-10.1) Test 10/14/20 05:42 Glucose (Fingerstick) 126 mg/dL (70-99) Medications Current Medications Aspirin (Aspirin Chewable) 81 mg DAILYWBKFT PO Last administered on 10/14/20at 08:01; Start 10/14/20 at 08:00 Vitals/I & O Vital Sign - Last 24 Hours 10/13/20 10/13/20 10/13/20 10/13/20 11:44 12:00 12:00 13:00 Temp 98.5 98.5 Pulse 89 90 Resp 22 18 B/P (MAP) 110/60 (77) 102/59 (73) Pulse Ox 98 96 98 O2 Delivery Ventilator Mechanical Ventilator Ventilator Ventilator 10/13/20 10/13/20 10/13/20 10/13/20 14:00 14:00 15:00 15:21 Pulse 93 87 Resp 19 16 B/P (MAP) 133/78 (96) 120/68 (85) Pulse Ox 99 98 98 98 O2 Delivery Ventilator Ventilator Ventilator Ventilator 10/13/20 10/13/20 10/13/20 10/13/20 16:00 16:00 17:00 18:00 Temp 98.7 98.7 Pulse 87 102 98 Resp 16 18 16 B/P (MAP) 107/62 (77) 102/61 (75) 106/59 (75) Pulse Ox 98 98 98 O2 Delivery Mechanical Ventilator Ventilator Ventilator Ventilator 10/13/20 10/13/20 10/13/20 10/13/20 18:04 19:00 19:30 19:33 Pulse 84 Resp 16 B/P (MAP) 112/63 (79) Pulse Ox 98 100 100 O2 Delivery Ventilator Ventilator Mechanical Ventilator Ventilator 10/13/20 10/13/20 10/13/20 10/13/20 20:00 20:58 21:00 21:57 Temp 98.8 98.8 Pulse 80 84 82 Resp 12 14 B/P (MAP) 114/67 (83) 127/63 110/72 (85) Pulse Ox 99 100 100 O2 Delivery Ventilator Ventilator Ventilator 10/13/20 10/13/20 10/14/20 10/14/20 22:00 23:00 00:00 00:00 Temp 98.9 98.9 Pulse 78 83 74 Resp 12 20 15 B/P (MAP) 114/61 (78) 116/64 (81) 116/58 (77) Pulse Ox 100 100 99 O2 Delivery Ventilator Ventilator Ventilator Mechanical Ventilator 10/14/20 10/14/20 10/14/20 10/14/20 01:00 01:48 02:00 03:00 Pulse 76 75 81 Resp 18 18 12 B/P (MAP) 133/74 (93) 104/62 (76) 113/66 (82) Pulse Ox 97 98 100 100 O2 Delivery Ventilator Ventilator Ventilator Ventilator 10/14/20 10/14/20 10/14/20 10/14/20 03:30 03:58 04:00 05:00 Temp 98.3 98.3 Pulse 81 83 Resp 15 13 B/P (MAP) 102/57 (72) 121/70 (87) Pulse Ox 98 100 100 O2 Delivery Mechanical Ventilator Ventilator Ventilator Ventilator 10/14/20 10/14/20 10/14/20 10/14/20 05:43 06:00 07:00 08:00 Temp 99.0 99.0 Pulse 82 78 80 Resp 14 12 18 B/P (MAP) 116/70 (85) 135/80 (98) 118/69 (85) Pulse Ox 98 100 100 100 O2 Delivery Ventilator Ventilator Ventilator Ventilator 10/14/20 10/14/20 10/14/20 10/14/20 08:00 08:02 08:03 09:00 Pulse 78 77 76 Resp 16 B/P (MAP) 137/78 137/78 133/72 (92) Pulse Ox 100 O2 Delivery Mechanical Ventilator Ventilator 10/14/20 10/14/20 10/14/20 09:37 10:00 11:00 Pulse 76 77 Resp 11 18 B/P (MAP) 119/65 (83) 115/63 (80) Pulse Ox 98 99 98 O2 Delivery Ventilator Ventilator Ventilator Intake and Output 10/13/20 10/13/20 10/14/20 15:00 23:00 07:00 Intake Total 200 ml 200 ml 1630 ml Output Total 2370 ml 430 ml 525 ml Balance -2170 ml -230 ml 1105 ml GUNNAR BREWER MD Oct 14, 2020 11:43
[2020-10-14] MEDS: ATORVASTATIN CALCIUM 40 MG TABLET. PO SCH (20:35)
[2020-10-15] VITALS (24 sets, daily range): BP systolic 95–164; BP diastolic 54–89
[2020-10-15] MEDS: INSULIN LISPRO 300 UNITS/3 ML VIAL. SQ SCH ×3 (05:39→17:45)
[2020-10-15] MEDS: CEFEPIME HCL IV Push 2 GM VIAL. IVP SCH ×3 (05:50→21:47)
[2020-10-15 05:54] LABS: HEMATOCRIT 26.4 % (39.0-53.0); RED BLOOD COUNT 2.81 x10^6/uL (4.30-5.70); RED CELL DISTRIBUTION WIDTH 16.7 % (11.5-14.5); WHITE BLOOD COUNT 5.3 x10^3/uL (4.0-11.0)
[2020-10-15 06:02] LABS: CALCIUM 8.9 mg/dL (8.5-10.1); CREATININE 0.7 mg/dL (0.7-1.3); GFR 110.9; POTASSIUM 3.5 mmol/L (3.5-5.1)
[2020-10-15 06:07] LABS: PROTHROMBIN TIME PATIENT 19.8 SEC (11.7-14.0)
[2020-10-15] MEDS: FUROSEMIDE 40 MG/4 ML VIAL. IVP SCH (07:38)
[2020-10-15] MEDS: PANTOPRAZOLE IV PUSH 40 MG VIAL. IVP SCH (07:38)
[2020-10-15] MEDS: METOPROLOL TART IMMED RELEASE 25 MG TABLET. PO SCH ×2 (07:40→21:48)
[2020-10-15] MEDS: ASPIRIN CHEWABLE 81 MG TABLET. PO SCH (07:40)
[2020-10-15] MEDS: AMIODARONE HCL 200 MG TABLET. PO SCH (07:40)
[2020-10-15] MEDS: POTASSIUM BICARB 20 MEQ EFFERVESCENT TABLET. PEG SCH (07:40)
--- NOTE | 2020-10-15 09:20 | PDOC ---
[employer] PROGRESS NOTE Date of Service DOS: DATE: 10/15/20 TIME: 09:19 Chief Complaint Chief Complaint Acute anemia, likely due to acute blood loss due to multiple lab draws and multiple comorbidities. 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 Will determine timing of PEG tube placement before starting warfarin. Hypoglycemia protocol Continue empiric IV antibiotics with concern for aspiration pneumonia Pulmonology consult for vent management IV electrolyte replacement as needed Consider cardiology consult if troponins increase Argatroban for DVT prophylaxis Protonix while on the vent GI prophylaxis N.p.o. Full code Discussed with RN and SW Disposition inpatient management as above Surrogate decision maker is undesignated History of Present Illness History of Present Illness Mr Andrews is a 70-year-old male with a recent prolonged hospitalization for STEMI and respiratory failure for which she was treated with arterial thrombolysis for a right leg popliteal artery aneurysm and also had left heart cath with placement of a stent in the LAD and RCA comes in today after he [facility]. Apparently according to the nursing facility patient was in his usual state of health and he was conversational but then became altered. His blood glucose was found to be in the 30s. Glucose tabs and glucagon was given in route and his GCS reported at 6. Upon arrival patient's mental status did not improve and he was eventually intubated for airway protection. Of note EMS was bagging the patient through the nasal access. In the ED, patient was placed on a vent and pulmonology was consulted. Patient was also taken to the CT scanner for sanders scanning. Patient was started to wake up on the vent and sedation was ordered. 09/23: Patient examined at bedside. Intubated. Not on any sedation but unresponsive. Neurology consult in place. 09/24: Patient seen and examined at bedside. Remains intubated he is off sedation but still remains unresponsive. Planning for MRI brain in the morning. Further plan to be determined by MRI. 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 09/25: Afebrile, currently breathing on ventilator with FiO2 50%, PEEP 5. Had CODE BLUE in ICU this morning; received 2 rounds of CPR, epinephrine, and atropine with ROSC. MRI brain negative. Made DNR, and after discussion with Dr. Rubalcava he agrees. 09/26:: Afebrile. Still on vent, with FiO2 45%, PEEP 5. After discussion with Dr. Rubalcava yesterday, patient was made DNR. In the ED is likely a poor candidate for weaning trials may need trach in near future if no significant improvement. 09/27:: Afebrile. On vent with FiO2 40%, PEEP 5. Potassium 2.8 today, will replace. Warfarin has been resumed. Discussed with pharmacy, will resume aspirin and Plavix. May need tracheostomy by the end of the week if no improvement in mental status. 09/28:: Afebrile. On ventilator with FiO2 40%, PEEP 5. Warfarin has been resumed; INR 1.3 today. Some morning labs still pending; hemoglobin yesterday 7.3, will continue to monitor. Continue IV cefepime and supportive care. 09/29: Afebrile. Breathing on vent with FiO2 40%, PEEP 5. INR 1.2 today; Kash to help with warfarin dosing. White count within normal range, renal function stable. Spoke with pharmacy about cefepime 1 g every 8 hours dosing; this has been changed to cefepime 2 g every 8 hours. 09/30: Afebrile. Currently breathing on vent with FiO2 40%, PEEP 5. Continue antibiotics, cefepime 2 g every 8 hours. INR 1.4; continue warfarin dosing per pharmacy. Possible tracheostomy at some point. Critical care time 30 minutes reviewing charts, labs, examination, discussion with RN. 10/01: T-max 100.3 F. On ventilator with FiO2 40%, PEEP 5. Continue antibiotics, cefepime 2 g every 8 hours. INR 1.4, still subtherapeutic; continue warfarin dosing per pharmacy. Possible tracheostomy at some point. 10/02: No acute events overnight. Patient saturating 99% on vent settings of 10/450/40/5. Patient will likely need a trach and PEG at some point. We will hold warfarin and start 2 units PRBC transfusion. Patient's chart, labs, images were reviewed and discussed with RN 10/03: No acute events overnight. Patient sat 100% on minimal vent settings. No sedation at this point and patient is opening his eyes spontaneously. Not much response or spontaneous movements. Surgery has been consulted for tracheostomy. Patient will also likely need a PEG tube. 10/04: No acute events overnight. Patient saturating 90% on minimal vent settings. T-max 100.4 overnight. Plan for trach tomorrow with surgery. Patient's chart, labs, images were reviewed and discussed with RN 10/05: No acute events overnight. Patient saturating 99% on minimal vent settings. Plan for tracheostomy today. Consent is provided by authorization by 2 physicians due to patient having no close relatives or DPOA. Will resume heparin and warfarin bridging tomorrow after tracheostomy 10/07: No acute events overnight. Patient seen and examined bedside. On trach vent. Saturating 99%. Pending GI evaluation for possible PEG placement after discussing with cardiology whether to continue with Plavix. Possibly place PEG if patient is only on aspirin and stopping argatroban. 10/08: No acute events overnight. Patient continues to be on trach mechanical vent. Saturating 100%. Pending decision from GI whether to proceed with PEG placement depending on the type of anticoagulation patient will be on. 10/09: No overnight events. On trach with vent support 40% FiO2 PEEP of 5. Currently argatroban and propofol for minimal sedation. When sedation is weaned he has no meaningful movements but has pulled at his tracheostomy site. Unable to hold plavix due to recently placed stents. 10/10: Afebrile today. On trach with vent support 40% FiO2 PEEP of 5. Continue argatroban and changed to Aggrastat in anticipation of surgical consultation for potential laparoscopic PEG placement. INR 1.6. Hb greater than 9 no sign ificant neurologic recovery today. 10/11: Afebrile. On trach with vent support 40% FiO2 PEEP of 5. INR 1.8. Not making meaningful eye contact. Labs otherwise stable. 10/12: Afebrile. Trach with vent support 40% FiO2 PEEP five O2 saturations 92%. INR 1.8, mag 1.8, Hb 8.4. Not following commands. Tentative plans for surgical PEG next week. 10/13: Afebrile. Trach with vent support 40% FiO2 PEEP 5. Eyes open, not tracking or following commands. Holding Plavix. On argatroban. 10/14: Afebrile. Trach with vent support 40% FiO2 PEEP of 5. Will open eyes intermittently not necessarily to voice. Good urine output. Labs stable. 10/15: Afebrile overnight. Trach with vent AC 40% fio2 PEEP 5. Had a very large bowel movement. Still not tracking. Hb 9, INR 1.7, glucose 144. Tentative plan for PEG 10/18/2020 CC time 30 minutes Vitals/I&O Vitals/I&O: Vital Signs Date Time Temp Pulse Resp B/P (MAP) Pulse Ox O2 Delivery O2 Flow Rate FiO2 10/15/20 09:18 99 Ventilator 10/15/20 08:00 99.0 85 15 150/83 (105) 99.0 I & O 10/14/20 10/14/20 10/15/20 15:00 23:00 07:00 Intake Total 200 ml 200 ml 1824 ml Output Total 1660 ml 710 ml 600 ml Balance -1460 ml -510 ml 1224 ml Physical Exam General: No acute distress Heart: Regular rate (SR), Other (distatne heart sounds) Lungs: Other (Tracheostomy) Abdomen: Soft Extremities: No cyanosis, Other (2-3+ bilateral LE pitting edema) Skin: No rashes, No significant lesion Labs Labs: Laboratory Tests Test 10/14/20 12:58 10/14/20 17:18 10/14/20 23:44 10/15/20 05:30 Glucose (Fingerstick) 144 mg/dL (70-99) 153 mg/dL (70-99) 129 mg/dL (70-99) White Blood Count 5.3 x10^3/uL (4.0-11.0) Red Blood Count 2.81 x10^6/uL (4.30-5.70) Hemoglobin 9.0 g/dL (13.0-17.5) Hematocrit 26.4 % (39.0-53.0) Mean Corpuscular Volume 94 fL (79-100) Mean Corpuscular Hemoglobin 32 pg (25-35) Mean Corpuscular Hemoglobin Concent 34 g/dL (31-37) Red Cell Distribution Width 16.7 % (11.5-14.5) Platelet Count 234 x10^3/uL (140-400) Prothrombin Time 19.8 SEC (11.7-14.0) Prothromb Time International Ratio 1.7 (0.8-1.1) Activated Partial Thromboplast Time 70 SEC (24-38) Sodium Level 134 mmol/L (136-145) Potassium Level 3.5 mmol/L (3.5-5.1) Chloride Level 97 mmol/L (98-107) Carbon Dioxide Level 35 mmol/L (21-32) Anion Gap 2 (6-14) Blood Urea Nitrogen 23 mg/dL (8-26) Creatinine 0.7 mg/dL (0.7-1.3) Estimated GFR (Cockcroft-Gault) 110.9 Glucose Level 138 mg/dL (70-99) Calcium Level 8.9 mg/dL (8.5-10.1) Test 10/15/20 05:38 Glucose (Fingerstick) 144 mg/dL (70-99) Assessment and Plan Assessmemt and Plan Problems Medical Problems: (1) NSTEMI (non-ST elevated myocardial infarction) Status: Acute (2) Obtundation Status: Acute (3) Respiratory arrest Status: Acute Comment Review of Relevant I have reviewed the following items denise (where applicable) has been applied. Justifications for Admission Other Justification Hypoglycemia and altered mental status. JARRED SINGH MD Oct 15, 2020 09:20
--- NOTE | 2020-10-15 10:01 | PDOC ---
PULMONARY PROGRESS NOTES DATE: 10/15/20 TIME: 10:00 Subjective No overnight event Blood sugar is a better Currently on assist control ventilation Vitals Vital Signs Date Time Temp Pulse Resp B/P (MAP) Pulse Ox O2 Delivery O2 Flow Rate FiO2 10/15/20 09:18 99 Ventilator 10/15/20 09:00 89 22 118/67 (84) 10/15/20 08:00 99.0 99.0 General: No acute distress HEENT: Other (nc at perrl nose clear orally intubated neck no lad no thyromegaly) Lungs: Other (Tracheostomy) Cardiovascular: S1, S2 Abdomen: Soft, Non-tender, Other (Obese) Extremities: Other (1+ edema) Skin: Warm Labs Laboratory Tests Test 10/13/20 12:21 10/13/20 17:44 10/14/20 00:07 10/14/20 05:30 Glucose (Fingerstick) 164 mg/dL (70-99) 143 mg/dL (70-99) 138 mg/dL (70-99) White Blood Count 5.0 x10^3/uL (4.0-11.0) Red Blood Count 2.74 x10^6/uL (4.30-5.70) Hemoglobin 8.7 g/dL (13.0-17.5) Hematocrit 25.8 % (39.0-53.0) Mean Corpuscular Volume 94 fL (79-100) Mean Corpuscular Hemoglobin 32 pg (25-35) Mean Corpuscular Hemoglobin Concent 34 g/dL (31-37) Red Cell Distribution Width 16.9 % (11.5-14.5) Platelet Count 227 x10^3/uL (140-400) Prothrombin Time 20.0 SEC (11.7-14.0) Prothromb Time International Ratio 1.7 (0.8-1.1) Activated Partial Thromboplast Time 65 SEC (24-38) Sodium Level 134 mmol/L (136-145) Potassium Level 3.8 mmol/L (3.5-5.1) Chloride Level 96 mmol/L (98-107) Carbon Dioxide Level 37 mmol/L (21-32) Anion Gap 1 (6-14) Blood Urea Nitrogen 22 mg/dL (8-26) Creatinine 0.7 mg/dL (0.7-1.3) Estimated GFR (Cockcroft-Gault) 110.9 Glucose Level 134 mg/dL (70-99) Calcium Level 8.9 mg/dL (8.5-10.1) Test 10/14/20 05:42 10/14/20 12:58 10/14/20 17:18 10/14/20 23:44 Glucose (Fingerstick) 126 mg/dL (70-99) 144 mg/dL (70-99) 153 mg/dL (70-99) 129 mg/dL (70-99) Test 10/15/20 05:30 10/15/20 05:38 White Blood Count 5.3 x10^3/uL (4.0-11.0) Red Blood Count 2.81 x10^6/uL (4.30-5.70) Hemoglobin 9.0 g/dL (13.0-17.5) Hematocrit 26.4 % (39.0-53.0) Mean Corpuscular Volume 94 fL (79-100) Mean Corpuscular Hemoglobin 32 pg (25-35) Mean Corpuscular Hemoglobin Concent 34 g/dL (31-37) Red Cell Distribution Width 16.7 % (11.5-14.5) Platelet Count 234 x10^3/uL (140-400) Prothrombin Time 19.8 SEC (11.7-14.0) Prothromb Time International Ratio 1.7 (0.8-1.1) Activated Partial Thromboplast Time 70 SEC (24-38) Sodium Level 134 mmol/L (136-145) Potassium Level 3.5 mmol/L (3.5-5.1) Chloride Level 97 mmol/L (98-107) Carbon Dioxide Level 35 mmol/L (21-32) Anion Gap 2 (6-14) Blood Urea Nitrogen 23 mg/dL (8-26) Creatinine 0.7 mg/dL (0.7-1.3) Estimated GFR (Cockcroft-Gault) 110.9 Glucose Level 138 mg/dL (70-99) Calcium Level 8.9 mg/dL (8.5-10.1) Glucose (Fingerstick) 144 mg/dL (70-99) Laboratory Tests Test 10/14/20 12:58 10/14/20 17:18 10/14/20 23:44 10/15/20 05:30 Glucose (Fingerstick) 144 mg/dL (70-99) 153 mg/dL (70-99) 129 mg/dL (70-99) White Blood Count 5.3 x10^3/uL (4.0-11.0) Red Blood Count 2.81 x10^6/uL (4.30-5.70) Hemoglobin 9.0 g/dL (13.0-17.5) Hematocrit 26.4 % (39.0-53.0) Mean Corpuscular Volume 94 fL (79-100) Mean Corpuscular Hemoglobin 32 pg (25-35) Mean Corpuscular Hemoglobin Concent 34 g/dL (31-37) Red Cell Distribution Width 16.7 % (11.5-14.5) Platelet Count 234 x10^3/uL (140-400) Prothrombin Time 19.8 SEC (11.7-14.0) Prothromb Time International Ratio 1.7 (0.8-1.1) Activated Partial Thromboplast Time 70 SEC (24-38) Sodium Level 134 mmol/L (136-145) Potassium Level 3.5 mmol/L (3.5-5.1) Chloride Level 97 mmol/L (98-107) Carbon Dioxide Level 35 mmol/L (21-32) Anion Gap 2 (6-14) Blood Urea Nitrogen 23 mg/dL (8-26) Creatinine 0.7 mg/dL (0.7-1.3) Estimated GFR (Cockcroft-Gault) 110.9 Glucose Level 138 mg/dL (70-99) Calcium Level 8.9 mg/dL (8.5-10.1) Test 10/15/20 05:38 Glucose (Fingerstick) 144 mg/dL (70-99) Medications Active Scripts Medications Dose Route/Sig Max Daily Dose Days Date Category Amiodarone Hcl 200 Mg Tablet 400 Mg PO DAILY 09/18/20 Rx [Warfarin Per Pharmacy] 1 EACH Each 1 Each PRN DAILY PRN 30 09/18/20 Rx Clopidogrel (Clopidogrel Bisulfate) 75 Mg Tablet 75 Mg PO DAILYWBKFT 09/18/20 Rx Glimepiride 4 Mg Tablet 1 Tab PO DAILY 09/13/20 Reported Furosemide 40 Mg Tablet 1 Tab PO BID 09/13/20 Reported Symbicort 160-4.5 Mcg Inhaler (Budesonide/Formoterol Fumarate) 10.2 Gm Hfa.aer.ad 1 Puff INH DAILY 09/13/20 Reported Losartan-Hctz 100-12.5 Mg Tab (Losartan/Hydrochlorothiazide) 1 Each Tablet 1 Tab PO DAILY 09/13/20 Reported Nitrofurantoin [place]-Mcr 100 Mg (Nitrofurantoin Monohyd/M-Cryst) 100 Mg Capsule 1 Cap PO BID 09/13/20 Reported Betamethasone Valerate 60 Ml Lotion 1 TP QHS 09/13/20 Reported Atorvastatin Calcium 40 Mg Tablet 1 Tab PO DAILY 09/13/20 Reported Diltiazem 24Hr Cd (Diltiazem HCl) 240 Mg Cap.er.24h 1 Cap PO DAILY 09/13/20 Reported Nystop (Nystatin) 60 Gm Powder 1 Sudheer TP BID 09/13/20 Reported Humalog (Insulin Lispro) 100 Unit/1 Ml Insuln.pen 0 Units SQ TIDWMEALS 30 08/06/18 Rx Duoneb 0.5-3(2.5) Mg/3 Ml (Albuterol/Ipratropium) 3 Ml Ampul.neb 3 Ml NEB RTQID 30 08/06/18 Rx Aspirin 325 Mg Tablet 325 Mg PO DAILYWBKFT 30 07/22/17 Rx Metoprolol Tartrate 25 Mg Tablet 25 Mg PO BID 30 07/22/17 Rx Montelukast Sodium Tablet (Montelukast Sodium) 10 Mg Tablet 10 Mg PO QHS 07/22/17 Rx Gabapentin 600 Mg Tablet 600 Mg PO BID 30 07/22/17 Rx Pepcid (Famotidine) 20 Mg Tablet 20 Mg PO BID 05/17/13 Reported Impression . 1. Acute on chronic respiratory failure secondary to multifactorial etiologies including hypoglycemic encephalopathy. No evidence of new stroke. 2. Possible sepsis--- on antibiotics 3. Hypoglycemia./ encephalopathy 4. The patient with prior history of cerebrovascular accident with left-sided weakness. 5. Underlying chronic obstructive pulmonary disease. 6. Morbid obesity. 7. Peripheral vascular disease. 8. Abnormal CT chest with bibasilar atelectasis. No significant mucus plugging. Tiny pleural effusion seen. Plan . Updated 10/15 Discussed with RN continue pressure support during the day Blood sugars per PCP We will discuss with social work from the possibility of transferring to LTAC updated 10/14 Discussed with RT, continue pressure support Yesterday blood sugar dropped, given D10 Discussed with RN Nutritional support Cardiology following Long-term prognosis is poor Transfer to LTAC if possible HELENA MACHADO MD Oct 15, 2020 10:01
--- NOTE | 2020-10-15 11:59 | PDOC ---
PROGRESS NOTES Date of Service: DATE: 10/15/20 TIME: 11:58 Subjective Subjective No new complaints Objective Objective Vital Signs Date Time Temp Pulse Resp B/P (MAP) Pulse Ox O2 Delivery O2 Flow Rate FiO2 10/15/20 11:53 98 Ventilator 10/15/20 11:00 82 13 112/65 (81) 10/15/20 08:00 99.0 99.0 Intake and Output 10/15/20 07:00 Intake Total 2224 ml Output Total 2970 ml Balance -746 ml IV Total 79 ml Tube Feeding 1544 ml Other 601 ml Output Urine Total 2970 ml Physical Exam Abdomen: Soft Heart: Regular rate (SR), Other (distatne heart sounds) Extremities: No cyanosis, Other (2-3+ bilateral LE pitting edema) General: No acute distress HEENT: Other (trach) Lungs: Other (diminished, mechanical vent in place. ) Psych/Mental Status: Other (sedated) Skin: No rashes, No significant lesion Assessment Assessment 1. Acute on chronic respiratory failure with associated severe hypoglycemia and encephalopathy and COPD, CHF; s/p tracheostomy. mechanical vent. Pulmonary team following. 2. Metabolic encephalopathy with associated hypoglycemia. MRI revealed no new stroke 3. Acute on chronic diastolic/systolic CHF: better compensated 4. CAD/STEMI: S/P complex PCI/stents to RCA/LAD 08/16/2020. [facility] 08/31 with ISR to RCA, S/P PCI, clinically stable. Telemetry did not show any significant arrhythmias. 5. ICM: EF at 25%, clinically well compensated. 6. PAD: S/P thrombolysis to right popliteal artery with large aneurysm. Needing future repair per vascular. Continue argatroban and restart Coumadin after PEG placement 7. 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 PAFIB: maintaining SR. Continue amiodarone for rhythm maintenance. 10. Anemia: post transfusion. 11. Hx of CVA 12. Dysphagia; Dobbhoff in place. Plan for PEG tube placement on Friday. Plan Plan of Care Problems Medical Problems: (1) NSTEMI (non-ST elevated myocardial infarction) Status: Acute (2) Obtundation Status: Acute (3) Respiratory arrest Status: Acute Comment Review of Relevant I have reviewed the following items denise (where applicable) has been applied. Labs Laboratory Tests Test 10/14/20 12:58 10/14/20 17:18 10/14/20 23:44 10/15/20 05:30 Glucose (Fingerstick) 144 mg/dL (70-99) 153 mg/dL (70-99) 129 mg/dL (70-99) White Blood Count 5.3 x10^3/uL (4.0-11.0) Red Blood Count 2.81 x10^6/uL (4.30-5.70) Hemoglobin 9.0 g/dL (13.0-17.5) Hematocrit 26.4 % (39.0-53.0) Mean Corpuscular Volume 94 fL (79-100) Mean Corpuscular Hemoglobin 32 pg (25-35) Mean Corpuscular Hemoglobin Concent 34 g/dL (31-37) Red Cell Distribution Width 16.7 % (11.5-14.5) Platelet Count 234 x10^3/uL (140-400) Prothrombin Time 19.8 SEC (11.7-14.0) Prothromb Time International Ratio 1.7 (0.8-1.1) Activated Partial Thromboplast Time 70 SEC (24-38) Sodium Level 134 mmol/L (136-145) Potassium Level 3.5 mmol/L (3.5-5.1) Chloride Level 97 mmol/L (98-107) Carbon Dioxide Level 35 mmol/L (21-32) Anion Gap 2 (6-14) Blood Urea Nitrogen 23 mg/dL (8-26) Creatinine 0.7 mg/dL (0.7-1.3) Estimated GFR (Cockcroft-Gault) 110.9 Glucose Level 138 mg/dL (70-99) Calcium Level 8.9 mg/dL (8.5-10.1) Test 10/15/20 05:38 Glucose (Fingerstick) 144 mg/dL (70-99) Vitals/I & O Vital Sign - Last 24 Hours 10/14/20 10/14/20 10/14/20 10/14/20 12:00 12:00 13:00 13:29 Temp 98.9 98.9 Pulse 74 76 Resp 15 13 B/P (MAP) 119/64 (82) 118/65 (82) Pulse Ox 98 99 99 O2 Delivery Ventilator Mechanical Ventilator Ventilator Ventilator 10/14/20 10/14/20 10/14/20 10/14/20 14:00 15:00 16:00 16:00 Temp 99.0 99.0 Pulse 76 74 77 Resp 16 14 14 B/P (MAP) 105/55 (72) 101/57 (72) 123/67 (85) Pulse Ox 96 99 99 O2 Delivery Ventilator Ventilator Ventilator Mechanical Ventilator 10/14/20 10/14/20 10/14/20 10/14/20 16:18 17:00 18:00 19:00 Pulse 74 80 79 Resp 10 11 18 B/P (MAP) 133/70 (91) 127/67 (87) 114/57 (76) Pulse Ox 99 99 99 99 O2 Delivery Ventilator Ventilator Ventilator Ventilator 10/14/20 10/14/20 10/14/20 10/14/20 20:00 20:00 20:00 20:36 Temp 99.6 99.6 Pulse 80 78 Resp 18 B/P (MAP) 106/70 (82) 115/60 Pulse Ox 99 98 O2 Delivery Mechanical Ventilator Ventilator Ventilator 10/14/20 10/14/20 10/14/20 10/14/20 21:00 22:00 23:00 23:30 Pulse 75 74 74 Resp 17 13 15 B/P (MAP) 115/65 (82) 106/57 (73) 103/65 (78) Pulse Ox 99 99 100 100 O2 Delivery Ventilator Ventilator Ventilator Ventilator 10/15/20 10/15/20 10/15/20 10/15/20 00:00 00:01 01:00 02:00 Temp 98.8 98.8 Pulse 66 74 77 Resp 16 12 13 B/P (MAP) 147/75 (99) 111/64 (80) 121/69 (86) Pulse Ox 99 100 100 O2 Delivery Mechanical Ventilator Ventilator Ventilator Ventilator 10/15/20 10/15/20 10/15/20 10/15/20 02:15 03:00 04:00 04:00 Temp 99.1 99.1 Pulse 78 80 Resp 12 14 B/P (MAP) 116/65 (82) 132/78 (96) Pulse Ox 99 100 100 O2 Delivery Ventilator Ventilator Ventilator Mechanical Ventilator 10/15/20 10/15/20 10/15/20 10/15/20 05:00 05:00 06:00 07:00 Pulse 83 81 101 Resp 13 12 11 B/P (MAP) 140/85 (103) 114/65 (81) 164/89 (114) Pulse Ox 99 100 99 99 O2 Delivery Ventilator Ventilator Ventilator Ventilator 10/15/20 10/15/20 10/15/20 10/15/20 07:40 07:40 08:00 08:00 Temp 99.0 99.0 Pulse 109 109 85 Resp 15 B/P (MAP) 151/81 151/81 150/83 (105) Pulse Ox 99 O2 Delivery Mechanical Ventilator Ventilator 10/15/20 10/15/20 10/15/20 10/15/20 08:10 09:00 09:18 10:00 Pulse 89 85 Resp 22 16 B/P (MAP) 118/67 (84) 105/69 (81) Pulse Ox 99 99 99 99 O2 Delivery Ventilator Ventilator Ventilator Ventilator 10/15/20 10/15/20 11:00 11:53 Pulse 82 Resp 13 B/P (MAP) 112/65 (81) Pulse Ox 99 98 O2 Delivery Ventilator Ventilator Intake and Output 10/14/20 10/14/20 10/15/20 15:00 23:00 07:00 Intake Total 200 ml 200 ml 1824 ml Output Total 1660 ml 710 ml 600 ml Balance -1460 ml -510 ml 1224 ml GUNNAR BREWER MD Oct 15, 2020 11:59
[2020-10-15] MEDS: ATORVASTATIN CALCIUM 40 MG TABLET. PO SCH (21:48)
--- NOTE | 2020-10-15 23:47 | RAD ---
Exam: Abdomen one view INDICATION: Dobbhoff placement TECHNIQUE: Supine view the abdomen Comparisons: 10/05/2020 FINDINGS: Enteric tube with metallic tip in the left upper quadrant likely in the stomach. Strandy opacities at the left lung base. No pleural effusion. IMPRESSION: Lines and tubes described above. Electronically signed by: Bonifacio Forrester MD (10/15/2020 11:44 PM) [facility]
[2020-10-16] VITALS (24 sets, daily range): BP systolic 95–149; BP diastolic 57–95
[2020-10-16] MEDS: INSULIN LISPRO 300 UNITS/3 ML VIAL. SQ SCH ×4 (06:00→18:25)
[2020-10-16] MEDS: CEFEPIME HCL IV Push 2 GM VIAL. IVP SCH ×3 (06:05→21:43)
[2020-10-16 06:53] LABS: HEMATOCRIT 29.1 % (39.0-53.0); HEMOGLOBIN 9.8 g/dL (13.0-17.5); RED BLOOD COUNT 3.07 x10^6/uL (4.30-5.70); RED CELL DISTRIBUTION WIDTH 16.8 % (11.5-14.5); WHITE BLOOD COUNT 5.9 x10^3/uL (4.0-11.0)
[2020-10-16 07:08] LABS: PROTHROMBIN TIME PATIENT 19.4 SEC (11.7-14.0)
[2020-10-16 07:22] LABS: CALCIUM 9.4 mg/dL (8.5-10.1); CREATININE 0.7 mg/dL (0.7-1.3); GFR 110.9; POTASSIUM 3.7 mmol/L (3.5-5.1)
[2020-10-16] MEDS: FUROSEMIDE 40 MG/4 ML VIAL. IVP SCH (07:58)
[2020-10-16] MEDS: PANTOPRAZOLE IV PUSH 40 MG VIAL. IVP SCH (07:58)
[2020-10-16] MEDS: ASPIRIN CHEWABLE 81 MG TABLET. PO SCH (07:59)
[2020-10-16] MEDS: POTASSIUM BICARB 20 MEQ EFFERVESCENT TABLET. PEG SCH (07:59)
[2020-10-16] MEDS: AMIODARONE HCL 200 MG TABLET. PO SCH (07:59)
[2020-10-16] MEDS: METOPROLOL TART IMMED RELEASE 25 MG TABLET. PO SCH ×2 (08:00→20:36)
--- NOTE | 2020-10-16 11:37 | PDOC ---
PULMONARY PROGRESS NOTES DATE: 10/16/20 TIME: 11:36 Subjective Patient continues to be encephalopathic On pressure support throughout the day Does not follow any commands Vitals Vital Signs Date Time Temp Pulse Resp B/P (MAP) Pulse Ox O2 Delivery O2 Flow Rate FiO2 10/16/20 11:00 89 17 118/69 (85) 99 Ventilator 10/16/20 08:00 99.0 99.0 General: No acute distress HEENT: Other (nc at perrl nose clear orally intubated neck no lad no thyromegaly) Lungs: Other (Tracheostomy) Cardiovascular: S1, S2 Abdomen: Soft, Non-tender, Other (Obese) Extremities: Other (1+ edema) Skin: Warm Labs Laboratory Tests Test 10/14/20 12:58 10/14/20 17:18 10/14/20 23:44 10/15/20 05:30 Glucose (Fingerstick) 144 mg/dL (70-99) 153 mg/dL (70-99) 129 mg/dL (70-99) White Blood Count 5.3 x10^3/uL (4.0-11.0) Red Blood Count 2.81 x10^6/uL (4.30-5.70) Hemoglobin 9.0 g/dL (13.0-17.5) Hematocrit 26.4 % (39.0-53.0) Mean Corpuscular Volume 94 fL (79-100) Mean Corpuscular Hemoglobin 32 pg (25-35) Mean Corpuscular Hemoglobin Concent 34 g/dL (31-37) Red Cell Distribution Width 16.7 % (11.5-14.5) Platelet Count 234 x10^3/uL (140-400) Prothrombin Time 19.8 SEC (11.7-14.0) Prothromb Time International Ratio 1.7 (0.8-1.1) Activated Partial Thromboplast Time 70 SEC (24-38) Sodium Level 134 mmol/L (136-145) Potassium Level 3.5 mmol/L (3.5-5.1) Chloride Level 97 mmol/L (98-107) Carbon Dioxide Level 35 mmol/L (21-32) Anion Gap 2 (6-14) Blood Urea Nitrogen 23 mg/dL (8-26) Creatinine 0.7 mg/dL (0.7-1.3) Estimated GFR (Cockcroft-Gault) 110.9 Glucose Level 138 mg/dL (70-99) Calcium Level 8.9 mg/dL (8.5-10.1) Test 10/15/20 05:38 10/15/20 12:26 10/15/20 17:44 10/16/20 00:21 Glucose (Fingerstick) 144 mg/dL (70-99) 142 mg/dL (70-99) 164 mg/dL (70-99) 130 mg/dL (70-99) Test 10/16/20 05:45 10/16/20 05:50 10/16/20 06:08 White Blood Count 5.9 x10^3/uL (4.0-11.0) Red Blood Count 3.07 x10^6/uL (4.30-5.70) Hemoglobin 9.8 g/dL (13.0-17.5) Hematocrit 29.1 % (39.0-53.0) Mean Corpuscular Volume 95 fL (79-100) Mean Corpuscular Hemoglobin 32 pg (25-35) Mean Corpuscular Hemoglobin Concent 34 g/dL (31-37) Red Cell Distribution Width 16.8 % (11.5-14.5) Platelet Count 246 x10^3/uL (140-400) Activated Partial Thromboplast Time 74 SEC (24-38) Prothrombin Time 19.4 SEC (11.7-14.0) Prothromb Time International Ratio 1.7 (0.8-1.1) Sodium Level 135 mmol/L (136-145) Potassium Level 3.7 mmol/L (3.5-5.1) Chloride Level 98 mmol/L (98-107) Carbon Dioxide Level 33 mmol/L (21-32) Anion Gap 4 (6-14) Blood Urea Nitrogen 21 mg/dL (8-26) Creatinine 0.7 mg/dL (0.7-1.3) Estimated GFR (Cockcroft-Gault) 110.9 Glucose Level 146 mg/dL (70-99) Calcium Level 9.4 mg/dL (8.5-10.1) Glucose (Fingerstick) 141 mg/dL (70-99) Laboratory Tests Test 10/15/20 12:26 10/15/20 17:44 10/16/20 00:21 10/16/20 05:45 Glucose (Fingerstick) 142 mg/dL (70-99) 164 mg/dL (70-99) 130 mg/dL (70-99) White Blood Count 5.9 x10^3/uL (4.0-11.0) Red Blood Count 3.07 x10^6/uL (4.30-5.70) Hemoglobin 9.8 g/dL (13.0-17.5) Hematocrit 29.1 % (39.0-53.0) Mean Corpuscular Volume 95 fL (79-100) Mean Corpuscular Hemoglobin 32 pg (25-35) Mean Corpuscular Hemoglobin Concent 34 g/dL (31-37) Red Cell Distribution Width 16.8 % (11.5-14.5) Platelet Count 246 x10^3/uL (140-400) Activated Partial Thromboplast Time 74 SEC (24-38) Test 10/16/20 05:50 10/16/20 06:08 Prothrombin Time 19.4 SEC (11.7-14.0) Prothromb Time International Ratio 1.7 (0.8-1.1) Sodium Level 135 mmol/L (136-145) Potassium Level 3.7 mmol/L (3.5-5.1) Chloride Level 98 mmol/L (98-107) Carbon Dioxide Level 33 mmol/L (21-32) Anion Gap 4 (6-14) Blood Urea Nitrogen 21 mg/dL (8-26) Creatinine 0.7 mg/dL (0.7-1.3) Estimated GFR (Cockcroft-Gault) 110.9 Glucose Level 146 mg/dL (70-99) Calcium Level 9.4 mg/dL (8.5-10.1) Glucose (Fingerstick) 141 mg/dL (70-99) Medications Active Scripts Medications Dose Route/Sig Max Daily Dose Days Date Category Amiodarone Hcl 200 Mg Tablet 400 Mg PO DAILY 09/18/20 Rx [Warfarin Per Pharmacy] 1 EACH Each 1 Each MC PRN DAILY PRN 30 09/18/20 Rx Clopidogrel (Clopidogrel Bisulfate) 75 Mg Tablet 75 Mg PO DAILYWBKFT 09/18/20 Rx Glimepiride 4 Mg Tablet 1 Tab PO DAILY 09/13/20 Reported Furosemide 40 Mg Tablet 1 Tab PO BID 09/13/20 Reported Symbicort 160-4.5 Mcg Inhaler (Budesonide/Formoterol Fumarate) 10.2 Gm Hfa.aer.ad 1 Puff INH DAILY 09/13/20 Reported Losartan-Hctz 100-12.5 Mg Tab (Losartan/Hydrochlorothiazide) 1 Each Tablet 1 Tab PO DAILY 09/13/20 Reported Nitrofurantoin Marin-Mcr 100 Mg (Nitrofurantoin Monohyd/M-Cryst) 100 Mg Capsule 1 Cap PO BID 09/13/20 Reported Betamethasone Valerate 60 Ml Lotion 1 TP QHS 09/13/20 Reported Atorvastatin Calcium 40 Mg Tablet 1 Tab PO DAILY 09/13/20 Reported Diltiazem 24Hr Cd (Diltiazem HCl) 240 Mg Cap.er.24h 1 Cap PO DAILY 09/13/20 Reported Nystop (Nystatin) 60 Gm Powder 1 Sudheer TP BID 09/13/20 Reported Humalog (Insulin Lispro) 100 Unit/1 Ml Insuln.pen 0 Units SQ TIDWMEALS 30 08/06/18 Rx Duoneb 0.5-3(2.5) Mg/3 Ml (Albuterol/Ipratropium) 3 Ml Ampul.neb 3 Ml NEB RTQID 30 08/06/18 Rx Aspirin 325 Mg Tablet 325 Mg PO DAILYWBKFT 30 07/22/17 Rx Metoprolol Tartrate 25 Mg Tablet 25 Mg PO BID 30 07/22/17 Rx Montelukast Sodium Tablet (Montelukast Sodium) 10 Mg Tablet 10 Mg PO QHS 07/22/17 Rx Gabapentin 600 Mg Tablet 600 Mg PO BID 30 07/22/17 Rx Pepcid (Famotidine) 20 Mg Tablet 20 Mg PO BID 05/17/13 Reported Impression . 1. Acute on chronic respiratory failure secondary to multifactorial etiologies including hypoglycemic encephalopathy. No evidence of new stroke. 2. Possible sepsis--- on antibiotics 3. Hypoglycemia./ encephalopathy 4. The patient with prior history of cerebrovascular accident with left-sided weakness. 5. Underlying chronic obstructive pulmonary disease. 6. Morbid obesity. 7. Peripheral vascular disease. 8. Abnormal CT chest with bibasilar atelectasis. No significant mucus plugging. Tiny pleural effusion seen. Plan . Updated 10/16 Continue pressure support during the day Continues current support Long-term prognosis poor updated 10/15 Discussed with RN continue pressure support during the day Blood sugars per PCP We will discuss with social work from the possibility of transferring to LTAC updated 10/14 Discussed with RT, continue pressure support Yesterday blood sugar dropped, given D10 Discussed with RN Nutritional support Cardiology following Long-term prognosis is poor Transfer to LTAC if possible HELENA MACHADO MD Oct 16, 2020 11:37
--- NOTE | 2020-10-16 12:30 | PDOC ---
PROGRESS NOTES Date of Service: DATE: 10/16/20 TIME: 12:29 Subjective Subjective Comfortable, not following commands, no new issues per nursing Objective Objective Vital Signs Date Time Temp Pulse Resp B/P (MAP) Pulse Ox O2 Delivery O2 Flow Rate FiO2 10/16/20 12:11 97 Ventilator 10/16/20 11:00 89 17 118/69 (85) 10/16/20 08:00 99.0 99.0 Intake and Output 10/16/20 07:00 Intake Total 2089 ml Output Total 2850 ml Balance -761 ml IV Total 82 ml Tube Feeding 1446 ml Other 561 ml Output Urine Total 2400 ml Stool Total 450 ml Physical Exam Abdomen: Soft Heart: Regular rate (SR), Other (distatne heart sounds) Extremities: No cyanosis, Other (2-3+ bilateral LE pitting edema) General: No acute distress HEENT: Other (trach) Lungs: Other (diminished, mechanical vent in place. ) Psych/Mental Status: Other (sedated) Skin: No rashes, No significant lesion Assessment Assessment 1. Acute on chronic respiratory failure with associated severe hypoglycemia and encephalopathy and COPD, CHF; s/p tracheostomy. mechanical vent. Pulmonary team following. 2. Metabolic encephalopathy with associated hypoglycemia. MRI revealed no new stroke 3. Acute on chronic diastolic/systolic CHF: better compensated 4. CAD/STEMI: S/P complex PCI/stents to RCA/LAD 08/16/2020. [facility] 08/31 with ISR to RCA, S/P PCI, clinically stable. Telemetry did not show any significant arrhythmias. 5. ICM: EF at 25%, clinically well compensated. 6. PAD: S/P thrombolysis to right popliteal artery with large aneurysm. Needing future repair per vascular. Continue argatroban and restart Coumadin after PEG placement 7. 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 PAFIB: maintaining SR. Continue amiodarone for rhythm maintenance. 10. Anemia: post transfusion. 11. Hx of CVA 12. Dysphagia; Dobbhoff in place. Plan for PEG tube placement on Friday. Plan Plan of Care Problems Medical Problems: (1) NSTEMI (non-ST elevated myocardial infarction) Status: Acute (2) Obtundation Status: Acute (3) Respiratory arrest Status: Acute Comment Review of Relevant I have reviewed the following items denise (where applicable) has been applied. Labs Laboratory Tests Test 10/15/20 17:44 10/16/20 00:21 10/16/20 05:45 10/16/20 05:50 Glucose (Fingerstick) 164 mg/dL (70-99) 130 mg/dL (70-99) White Blood Count 5.9 x10^3/uL (4.0-11.0) Red Blood Count 3.07 x10^6/uL (4.30-5.70) Hemoglobin 9.8 g/dL (13.0-17.5) Hematocrit 29.1 % (39.0-53.0) Mean Corpuscular Volume 95 fL (79-100) Mean Corpuscular Hemoglobin 32 pg (25-35) Mean Corpuscular Hemoglobin Concent 34 g/dL (31-37) Red Cell Distribution Width 16.8 % (11.5-14.5) Platelet Count 246 x10^3/uL (140-400) Activated Partial Thromboplast Time 74 SEC (24-38) Prothrombin Time 19.4 SEC (11.7-14.0) Prothromb Time International Ratio 1.7 (0.8-1.1) Sodium Level 135 mmol/L (136-145) Potassium Level 3.7 mmol/L (3.5-5.1) Chloride Level 98 mmol/L (98-107) Carbon Dioxide Level 33 mmol/L (21-32) Anion Gap 4 (6-14) Blood Urea Nitrogen 21 mg/dL (8-26) Creatinine 0.7 mg/dL (0.7-1.3) Estimated GFR (Cockcroft-Gault) 110.9 Glucose Level 146 mg/dL (70-99) Calcium Level 9.4 mg/dL (8.5-10.1) Test 10/16/20 06:08 Glucose (Fingerstick) 141 mg/dL (70-99) Vitals/I & O Vital Sign - Last 24 Hours 10/15/20 10/15/20 10/15/20 10/15/20 13:00 13:08 14:00 15:00 Pulse 86 87 86 Resp 18 18 12 B/P (MAP) 141/74 (96) 121/71 (88) 137/71 (93) Pulse Ox 99 98 99 99 O2 Delivery Ventilator Ventilator Ventilator Ventilator 10/15/20 10/15/20 10/15/20 10/15/20 15:47 16:00 16:00 17:00 Pulse 104 103 Resp 16 12 B/P (MAP) 136/84 (101) 115/64 (81) Pulse Ox 98 99 99 O2 Delivery Ventilator Ventilator Mechanical Ventilator Ventilator 10/15/20 10/15/20 10/15/20 10/15/20 18:00 18:26 19:00 20:00 Temp 98.7 98.7 Pulse 86 88 88 Resp 13 13 12 B/P (MAP) 119/68 (85) 95/54 (68) 126/77 (93) Pulse Ox 99 99 99 100 O2 Delivery Ventilator Ventilator Ventilator Ventilator 10/15/20 10/15/20 10/15/20 10/15/20 20:00 20:00 21:00 21:48 Pulse 88 85 Resp 12 B/P (MAP) 145/83 (103) 131/72 Pulse Ox 99 100 O2 Delivery Ventilator Mechanical Ventilator Ventilator 10/15/20 10/15/20 10/15/20 10/16/20 22:00 23:00 23:30 00:00 Pulse 82 88 Resp 14 12 B/P (MAP) 126/68 (87) 145/83 (103) Pulse Ox 100 100 99 O2 Delivery Ventilator Ventilator Ventilator Mechanical Ventilator 10/16/20 10/16/20 10/16/20 10/16/20 00:00 01:00 02:00 02:00 Temp 98.7 98.7 Pulse 82 80 78 Resp 14 12 12 B/P (MAP) 126/68 (87) 137/75 (95) 149/91 (110) Pulse Ox 100 100 100 99 O2 Delivery Ventilator Ventilator Ventilator Ventilator 10/16/20 10/16/20 10/16/20 10/16/20 03:00 03:40 04:00 05:00 Temp 99.0 99.0 Pulse 82 74 92 Resp 18 10 17 B/P (MAP) 130/78 (95) 125/75 (92) 137/95 (109) Pulse Ox 99 96 99 O2 Delivery Ventilator Mechanical Ventilator Ventilator Ventilator 10/16/20 10/16/20 10/16/20 10/16/20 05:20 06:00 07:00 07:59 Pulse 102 82 90 Resp 18 16 B/P (MAP) 108/63 (78) 116/71 (86) 116/77 Pulse Ox 99 98 99 O2 Delivery Ventilator Ventilator Ventilator 10/16/20 10/16/20 10/16/20 10/16/20 08:00 08:00 08:00 08:27 Temp 99.0 99.0 Pulse 86 91 Resp 17 B/P (MAP) 116/77 125/82 (96) Pulse Ox 99 99 O2 Delivery Mechanical Ventilator Ventilator Ventilator 10/16/20 10/16/20 10/16/20 10/16/20 09:00 10:00 10:27 11:00 Pulse 95 88 89 Resp 16 14 17 B/P (MAP) 122/75 (91) 112/68 (83) 118/69 (85) Pulse Ox 99 99 98 99 O2 Delivery Ventilator Ventilator Ventilator Ventilator 10/16/20 12:11 Pulse Ox 97 O2 Delivery Ventilator Intake and Output 0 10/15/20 10/15/20 10/16/20 15:00 23:00 07:00 Intake Total 200 ml 200 ml 1689 ml Output Total 1550 ml 450 ml 850 ml Balance -1350 ml -250 ml 839 ml GUNNAR BREWER MD Oct 16, 2020 12:30
--- NOTE | 2020-10-16 13:46 | PDOC ---
[facility] PROGRESS NOTE Date of Service DOS: DATE: 10/16/20 TIME: 13:33 Chief Complaint Chief Complaint CC: Acute anemia Acute metabolic, infectious encephalopathy Acute respiratory failure Healthcare associated pneumonia Acute hypoglycemia Hypokalemia Elevated troponins Severe protein malnutrition Morbid obesity AAA, 4 cm, infrarenal History of diabetes mellitus type 2 History of dyslipidemia history of hypertension History of recent STEMI History of CAD History of peripheral artery disease History of JEANNE History of CVA History of paroxysmal atrial fibrillation Ischemic cardiomyopathy History of Present Illness History of Present Illness Mr Andrews is a 70-year-old male with a recent prolonged hospitalization for STEMI and respiratory failure for which she was treated with arterial thrombolysis for a right leg popliteal artery aneurysm and also had left heart cath with placement of a stent in the LAD and RCA comes in today after he was found obtunded at his [facility] facility. Apparently according to the nursing facility patient was in his usual state of health and he was conversational but then became altered. His blood glucose was found to be in the 30s. Glucose tabs and glucagon was given in route and his GCS reported at 6. Upon arrival patient's mental status did not improve and he was eventually intubated for airway protection. Of note EMS was bagging the patient through the nasal access. In the ED, patient was placed on a vent and pulmonology was consulted. Patient was also taken to the CT scanner for sanders scanning. Patient was started to wake up on the vent and sedation was ordered. 09/23: Patient examined at bedside. Intubated. Not on any sedation but unresponsive. Neurology consult in place. 09/24: Patient seen and examined at bedside. Remains intubated he is off sedation but still remains unresponsive. Planning for MRI brain in the morning. Further plan to be determined by MRI. 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 09/25: Afebrile, currently breathing on ventilator with FiO2 50%, PEEP 5. Had CODE BLUE in ICU this morning; received 2 rounds of CPR, epinephrine, and atropine with ROSC. MRI brain negative. Made DNR, and after discussion with Dr. Rubalcava he agrees. 09/26:: Afebrile. Still on vent, with FiO2 45%, PEEP 5. After discussion with Dr. Rubalcava yesterday, patient was made DNR. In the ED is likely a poor candidate for weaning trials may need trach in near future if no significant improvement. 09/27:: Afebrile. On vent with FiO2 40%, PEEP 5. Potassium 2.8 today, will replace. Warfarin has been resumed. Discussed with pharmacy, will resume aspirin and Plavix. May need tracheostomy by the end of the week if no improvement in mental status. 09/28:: Afebrile. On ventilator with FiO2 40%, PEEP 5. Warfarin has been re sumed; INR 1.3 today. Some morning labs still pending; hemoglobin yesterday 7.3, will continue to monitor. Continue IV cefepime and supportive care. 09/29: Afebrile. Breathing on vent with FiO2 40%, PEEP 5. INR 1.2 today; pharmacy to help with warfarin dosing. White count within normal range, renal function stable. Spoke with pharmacy about cefepime 1 g every 8 hours dosing; this has been changed to cefepime 2 g every 8 hours. 09/30: Afebrile. Currently breathing on vent with FiO2 40%, PEEP 5. Continue antibiotics, cefepime 2 g every 8 hours. INR 1.4; continue warfarin dosing per pharmacy. Possible tracheostomy at some point. Critical care time 30 minutes reviewing charts, labs, examination, discussion with RN. 10/01: T-max 100.3 F. On ventilator with FiO2 40%, PEEP 5. Continue antibiotics, cefepime 2 g every 8 hours. INR 1.4, still subtherapeutic; continue warfarin dosing per pharmacy. Possible tracheostomy at some point. 10/02: No acute events overnight. Patient saturating 99% on vent settings of 10/450/40/5. Patient will likely need a trach and PEG at some point. We will hold warfarin and start 2 units PRBC transfusion. Patient's chart, labs, images were reviewed and discussed with RN 10/03: No acute events overnight. Patient sat 100% on minimal vent settings. No sedation at this point and patient is opening his eyes spontaneously. Not much response or spontaneous movements. Surgery has been consulted for tracheostomy. Patient will also likely need a PEG tube. 10/04: No acute events overnight. Patient saturating 90% on minimal vent settings. T-max 100.4 overnight. Plan for trach tomorrow with surgery. Patient's chart, labs, images were reviewed and discussed with RN 10/05: No acute events overnight. Patient saturating 99% on minimal vent settings. Plan for tracheostomy today. Consent is provided by authorization by 2 physicians due to patient having no close relatives or DPOA. Will resume heparin and warfarin bridging tomorrow after tracheostomy 10/07: No acute events overnight. Patient seen and examined bedside. On trach vent. Saturating 99%. Pending GI evaluation for possible PEG placement after discussing with cardiology whether to continue with Plavix. Possibly place PEG if patient is only on aspirin and stopping argatroban. 10/08: No acute events overnight. Patient continues to be on trach mechanical vent. Saturating 100%. Pending decision from GI whether to proceed with PEG placement depending on the type of anticoagulation patient will be on. 10/09: No overnight events. On trach with vent support 40% FiO2 PEEP of 5. Currently argatroban and propofol for minimal sedation. When sedation is weaned he has no meaningful movements but has pulled at his tracheostomy site. Unable to hold plavix due to recently placed stents. 10/10: Afebrile today. On trach with vent support 40% FiO2 PEEP of 5. Continue argatroban and changed to Aggrastat in anticipation of surgical consultation for potential laparoscopic PEG placement. INR 1.6. Hb greater than 9 no significant neurologic recovery today. 10/11: Afebrile. On trach with vent support 40% FiO2 PEEP of 5. INR 1.8. Not making meaningful eye contact. Labs otherwise stable. 10/12: Afebrile. Trach with vent support 40% FiO2 PEEP five O2 saturations 92%. INR 1.8, mag 1.8, Hb 8.4. Not following commands. Tentative plans for surgical PEG next week. 10/13: Afebrile. Trach with vent support 40% FiO2 PEEP 5. Eyes open, not tracking or following commands. Holding Plavix. On argatroban. 10/14: Afebrile. Trach with vent support 40% FiO2 PEEP of 5. Will open eyes intermittently not necessarily to voice. Good urine output. Labs stable. 10/15: Afebrile overnight. Trach with vent AC 40% fio2 PEEP 5. Had a very large bowel movement. Still not tracking. Hb 9, INR 1.7, glucose 144. Tentative plan for PEG 10/18/2020 CC time 30 minutes 9/6/21: Patient seen and examined in the ICU. He was resting and still on vent via trach. Has NG running via Dobhoff, feeding at 40cc/hr. AC/10/450/40% plus 5 PEEP. Discussed with RN. Chart reviewed. Vitals/I&O Vitals/I&O: Vital Signs Date Time Temp Pulse Resp B/P (MAP) Pulse Ox O2 Delivery O2 Flow Rate FiO2 10/16/20 13:00 90 18 120/68 (85) 98 Ventilator 10/16/20 12:00 98.8 98.8 I & O 10/15/20 10/15/20 10/16/20 15:00 23:00 07:00 Intake Total 200 ml 200 ml 1689 ml Output Total 1550 ml 450 ml 850 ml Balance -1350 ml -250 ml 839 ml Physical Exam General: No acute distress Heart: Regular rate (SR), Other (distatne heart sounds) Lungs: Other (Tracheostomy) Abdomen: Soft Extremities: No cyanosis, Other (2-3+ bilateral LE pitting edema) Skin: No rashes, No significant lesion Labs Labs: Laboratory Tests Test 10/15/20 17:44 10/16/20 00:21 10/16/20 05:45 10/16/20 05:50 Glucose (Fingerstick) 164 mg/dL (70-99) 130 mg/dL (70-99) White Blood Count 5.9 x10^3/uL (4.0-11.0) Red Blood Count 3.07 x10^6/uL (4.30-5.70) Hemoglobin 9.8 g/dL (13.0-17.5) Hematocrit 29.1 % (39.0-53.0) Mean Corpuscular Volume 95 fL (79-100) Mean Corpuscular Hemoglobin 32 pg (25-35) Mean Corpuscular Hemoglobin Concent 34 g/dL (31-37) Red Cell Distribution Width 16.8 % (11.5-14.5) Platelet Count 246 x10^3/uL (140-400) Activated Partial Thromboplast Time 74 SEC (24-38) Prothrombin Time 19.4 SEC (11.7-14.0) Prothromb Time International Ratio 1.7 (0.8-1.1) Sodium Level 135 mmol/L (136-145) Potassium Level 3.7 mmol/L (3.5-5.1) Chloride Level 98 mmol/L (98-107) Carbon Dioxide Level 33 mmol/L (21-32) Anion Gap 4 (6-14) Blood Urea Nitrogen 21 mg/dL (8-26) Creatinine 0.7 mg/dL (0.7-1.3) Estimated GFR (Cockcroft-Gault) 110.9 Glucose Level 146 mg/dL (70-99) Calcium Level 9.4 mg/dL (8.5-10.1) Test 10/16/20 06:08 10/16/20 12:56 Glucose (Fingerstick) 141 mg/dL (70-99) 148 mg/dL (70-99) Review of Systems Review of Systems: GI: no nausea. no vomiting. Eyes: no changes in vision. no blurry vision. Assessment and Plan Assessmemt and Plan Problems Medical Problems: (1) NSTEMI (non-ST elevated myocardial infarction) Status: Acute (2) Obtundation Status: Acute (3) Respiratory arrest Status: Acut Respiratory failure Acute anemia Acute metabolic, infectious encephalopathy Acute respiratory failure Healthcare associated pneumonia Acute hypoglycemia Hypokalemia Elevated troponins Severe protein malnutrition Morbid obesity AAA, 4 cm, infrarenal History of diabetes mellitus type 2 History of dyslipidemia history of hypertension History of recent STEMI History of CAD History of peripheral artery disease History of JEANNE History of CVA History of paroxysmal atrial fibrillation Ischemic cardiomyopathy Plan: 1. ICU monitoring 2. Vent weaning 3. Continue NG feeding 4. Continue IV anticoagulation (Argatroban) 5. Trend labs 6. Trend chest x-rays 7. Appreciate subspecialist input 8. Prognosis guarded CC time 31 minutes Comment Review of Relevant I have reviewed the following items denise (where applicable) has been applied. Justifications for Admission Other Justification Hypoglycemia and altered mental status. MANNY THOMASON III DO Oct 16, 2020 13:46
[2020-10-16] MEDS: ARGATROBAN 50 MG in IV NORMAL SALINE 50ML 50 ML IV PRN (15:47)
[2020-10-16] MEDS: ATORVASTATIN CALCIUM 40 MG TABLET. PO SCH (20:35)
[2020-10-17] VITALS (21 sets, daily range): BP systolic 92–145; BP diastolic 53–116
[2020-10-17] MEDS: ARGATROBAN 50 MG in IV NORMAL SALINE 50ML 50 ML IV PRN (05:10)
[2020-10-17] MEDS: INSULIN LISPRO 300 UNITS/3 ML VIAL. SQ SCH ×4 (05:48→17:48)
[2020-10-17] MEDS: CEFEPIME HCL IV Push 2 GM VIAL. IVP SCH ×3 (05:48→21:43)
[2020-10-17] MEDS: FUROSEMIDE 40 MG/4 ML VIAL. IVP SCH (08:04)
[2020-10-17] MEDS: ASPIRIN CHEWABLE 81 MG TABLET. PO SCH (08:04)
[2020-10-17] MEDS: PANTOPRAZOLE IV PUSH 40 MG VIAL. IVP SCH (08:04)
[2020-10-17] MEDS: POTASSIUM BICARB 20 MEQ EFFERVESCENT TABLET. PEG SCH (08:05)
[2020-10-17] MEDS: METOPROLOL TART IMMED RELEASE 25 MG TABLET. PO SCH ×2 (08:05→21:43)
[2020-10-17] MEDS: AMIODARONE HCL 200 MG TABLET. PO SCH (08:06)
--- NOTE | 2020-10-17 08:30 | PDOC ---
PULMONARY PROGRESS NOTES DATE: 10/17/20 TIME: 08:30 Subjective No new events overnight patient continues to be encephalopathic On pressure support throughout the day Does not follow any commands Vitals Vital Signs Date Time Temp Pulse Resp B/P (MAP) Pulse Ox O2 Delivery O2 Flow Rate FiO2 10/17/20 08:06 85 130/75 10/17/20 08:00 98.9 13 99 Ventilator 98.9 General: No acute distress HEENT: Other (nc at perrl nose clear orally intubated neck no lad no thyromegaly) Lungs: Other (Tracheostomy) Cardiovascular: S1, S2 Abdomen: Soft, Non-tender, Other (Obese) Extremities: Other (1+ edema) Skin: Warm Labs Laboratory Tests Test 10/15/20 12:26 10/15/20 17:44 10/16/20 00:21 10/16/20 05:45 Glucose (Fingerstick) 142 mg/dL (70-99) 164 mg/dL (70-99) 130 mg/dL (70-99) White Blood Count 5.9 x10^3/uL (4.0-11.0) Red Blood Count 3.07 x10^6/uL (4.30-5.70) Hemoglobin 9.8 g/dL (13.0-17.5) Hematocrit 29.1 % (39.0-53.0) Mean Corpuscular Volume 95 fL (79-100) Mean Corpuscular Hemoglobin 32 pg (25-35) Mean Corpuscular Hemoglobin Concent 34 g/dL (31-37) Red Cell Distribution Width 16.8 % (11.5-14.5) Platelet Count 246 x10^3/uL (140-400) Activated Partial Thromboplast Time 74 SEC (24-38) Test 10/16/20 05:50 10/16/20 06:08 10/16/20 12:56 10/16/20 18:02 Prothrombin Time 19.4 SEC (11.7-14.0) Prothromb Time International Ratio 1.7 (0.8-1.1) Sodium Level 135 mmol/L (136-145) Potassium Level 3.7 mmol/L (3.5-5.1) Chloride Level 98 mmol/L (98-107) Carbon Dioxide Level 33 mmol/L (21-32) Anion Gap 4 (6-14) Blood Urea Nitrogen 21 mg/dL (8-26) Creatinine 0.7 mg/dL (0.7-1.3) Estimated GFR (Cockcroft-Gault) 110.9 Glucose Level 146 mg/dL (70-99) Calcium Level 9.4 mg/dL (8.5-10.1) Glucose (Fingerstick) 141 mg/dL (70-99) 148 mg/dL (70-99) 163 mg/dL (70-99) Test 10/16/20 23:43 10/17/20 05:40 10/17/20 05:47 Glucose (Fingerstick) 131 mg/dL (70-99) 121 mg/dL (70-99) Activated Partial Thromboplast Time 75 SEC (24-38) Laboratory Tests Test 10/16/20 12:56 10/16/20 18:02 10/16/20 23:43 10/17/20 05:40 Glucose (Fingerstick) 148 mg/dL (70-99) 163 mg/dL (70-99) 131 mg/dL (70-99) Activated Partial Thromboplast Time 75 SEC (24-38) Test 10/17/20 05:47 Glucose (Fingerstick) 121 mg/dL (70-99) Medications Active Scripts Medications Dose Route/Sig Max Daily Dose Days Date Category Amiodarone Hcl 200 Mg Tablet 400 Mg PO DAILY 09/18/20 Rx [Warfarin Per Pharmacy] 1 EACH Each 1 Each MC PRN DAILY PRN 30 09/18/20 Rx Clopidogrel (Clopidogrel Bisulfate) 75 Mg Tablet 75 Mg PO DAILYWBKFT 09/18/20 Rx Glimepiride 4 Mg Tablet 1 Tab PO DAILY 09/13/20 Reported Furosemide 40 Mg Tablet 1 Tab PO BID 09/13/20 Reported Symbicort 160-4.5 Mcg Inhaler (Budesonide/Formoterol Fumarate) 10.2 Gm Hfa.aer.ad 1 Puff INH DAILY 09/13/20 Reported Losartan-Hctz 100-12.5 Mg Tab (Losartan/Hydrochlorothiazide) 1 Each Tablet 1 Tab PO DAILY 09/13/20 Reported Nitrofurantoin [place]-Mcr 100 Mg (Nitrofurantoin Monohyd/M-Cryst) 100 Mg Capsule 1 Cap PO BID 09/13/20 Reported Betamethasone Valerate 60 Ml Lotion 1 TP QHS 09/13/20 Reported Atorvastatin Calcium 40 Mg Tablet 1 Tab PO DAILY 09/13/20 Reported Diltiazem 24Hr Cd (Diltiazem HCl) 240 Mg Cap.er.24h 1 Cap PO DAILY 09/13/20 Reported Nystop (Nystatin) 60 Gm Powder 1 Sudheer TP BID 09/13/20 Reported Humalog (Insulin Lispro) 100 Unit/1 Ml Insuln.pen 0 Units SQ TIDWMEALS 08/06/18 Rx Duoneb 0.5-3(2.5) Mg/3 Ml (Albuterol/Ipratropium) 3 Ml Ampul.neb 3 Ml NEB RTQID 08/06/18 Rx Aspirin 325 Mg Tablet 325 Mg PO DAILYWBKFT 30 07/22/17 Rx Metoprolol Tartrate 25 Mg Tablet 25 Mg PO BID 30 07/22/17 Rx Montelukast Sodium Tablet (Montelukast Sodium) 10 Mg Tablet 10 Mg PO QHS 07/22/17 Rx Gabapentin 600 Mg Tablet 600 Mg PO BID 30 07/22/17 Rx Pepcid (Famotidine) 20 Mg Tablet 20 Mg PO BID 05/17/13 Reported Impression . 1. Acute on chronic respiratory failure secondary to multifactorial etiologies including hypoglycemic encephalopathy. No evidence of new stroke. 2. Possible sepsis--- on antibiotics 3. Hypoglycemia./ encephalopathy 4. The patient with prior history of cerebrovascular accident with left-sided weakness. 5. Underlying chronic obstructive pulmonary disease. 6. Morbid obesity. 7. Peripheral vascular disease. 8. Abnormal CT chest with bibasilar atelectasis. No significant mucus plugging. Tiny pleural effusion seen. Plan . Updated 10/17 Continue pressure support during the day The a.m. for gastrostomy tube Discussed with RN updated 10/16 Continue pressure support during the day Continues current support Long-term prognosis poor updated 10/15 Discussed with RN continue pressure support during the day Blood sugars per PCP We will discuss with social work from the possibility of transferring to LTAC updated 10/14 Discussed with RT, continue pressure support Yesterday blood sugar dropped, given D10 Discussed with RN Nutritional support Cardiology following Long-term prognosis is poor Transfer to LTAC if possible HELENA MACHADO MD Oct 17, 2020 08:30
--- NOTE | 2020-10-17 10:38 | NUR ---
SS following up with discharge planning. SS reviewed pt chart and discussed with pt RN. Pt is currently on the vent at 40%. COVID19 negative. Pt on IV Lasix and IV Cefepime. Pt on Argatroban. Pt having complex G-Tube placed tomorrow by Dr. Henning. Pt clinically accepted at [facility], ; fax [phone], but [facility] stating today that they cannot accept without a financial DPOA or Guardian as pt has no family and no one willing to sign consents. SS to discuss with case management rep. Clinical updates phoned and faxed to [facility]. SS will continue to follow for discharge planning.
--- NOTE | 2020-10-17 11:00 | PDOC ---
PED[employer] GENERAL MANAGER 10/17/20 1100: CARDIO Progress Notes Date and Time Date of Service 10/17/20 Time of Evaluation 1150 Subjective Subjective: Other (not obtainable ) Vitals Vitals Vital Signs Date Time Temp Pulse Resp B/P (MAP) Pulse Ox O2 Delivery O2 Flow Rate FiO2 10/17/20 10:50 76 16 123/77 (92) 100 Ventilator 10/17/20 08:00 98.9 98.9 Weight Weight [ ] Input and Output Intake and Output l Intake and Output 10/17/20 07:00 Intake Total 2172 ml Output Total 2130 ml Balance 42 ml IV Total 81 ml Tube Feeding 1540 ml Other 551 ml Output Urine Total 1980 ml Stool Total 150 ml Laboratory Labs Laboratory Tests Test 10/16/20 12:56 10/16/20 18:02 10/16/20 23:43 10/17/20 05:40 Glucose (Fingerstick) 148 mg/dL (70-99) 163 mg/dL (70-99) 131 mg/dL (70-99) Activated Partial Thromboplast Time 75 SEC (24-38) Test 10/17/20 05:47 Glucose (Fingerstick) 121 mg/dL (70-99) Physical Exam HEENT: Neck Supple W Full Motion Chest: Symmetric LUNGS: Other (trach with vent) Heart: RRR (SR) Abdomen: Other (obese ) Extremities: Other (trace bilateral LE edema ) Neurology: other (opens eyes, does not track ) Assessment Assessment 1. Acute on chronic respiratory failure with associated severe hypoglycemia and encephalopathy and COPD, CHF; s/p tracheostomy. mechanical vent. Pulmonary team following. 2. Metabolic encephalopathy with associated hypoglycemia. MRI revealed no new stroke 3. Acute on chronic diastolic/systolic CHF: better compensated 4. CAD/STEMI: S/P complex PCI/stents to RCA/LAD 08/16/2020. C 08/31 with ISR to RCA, S/P PCI, clinically stable 5. ICM: EF at 25%, clinically well compensated. 6. PAD: S/P thrombolysis to right popliteal artery with large aneurysm. Needing future repair per vascular. 7. 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 PAFIB: maintaining SR. Continue amiodarone for rhythm maintenance. 10. Anemia: post transfusion. 11. Hx of CVA 12. Dysphagia; Dobbhoff in place. Plan for PEG tube placement tomorrow Recommendations Secondary prevention Plavix held for PEG placement Continue argatroban; may stop argatroban 6 hours prior to PEG placement. Restart Coumadin and Plavix post PEG placement Lasix therapy Amiodarone for rhythm maintenance. Supportive care Justicifation of Admission Dx: Justifications for Admission: Justification of Admission Dx: Yes CHF: Cardiac Arrhythmias EMELIA GRAY MD 10/18/20 0841: CARDIO Progress Notes Plan Plan Late entry for 10/17/20 The patient was seen and interviewed as well as examined at the bedside. The chart was reviewed. The case was discussed. Agree with the plan of care. PEDRO VERDE APRN Oct 17, 2020 11:00 EMELIA GRAY MD Oct 18, 2020 08:41
--- NOTE | 2020-10-17 11:01 | NUR ---
Consent for gastostomy tube signed by Dr Aguillon and Dr Jean due to patient has no family.
--- NOTE | 2020-10-17 11:10 | PDOC ---
SURGICAL PROGRESS NOTE DATE: 10/17/20 TIME: 11:09 Subjective Pt intubated, non responsive Vital Signs Vital Signs Date Time Temp Pulse Resp B/P (MAP) Pulse Ox O2 Delivery O2 Flow Rate FiO2 10/17/20 10:50 76 16 123/77 (92) 100 Ventilator 10/17/20 08:00 98.9 98.9 I&O Intake and Output 10/17/20 07:00 Intake Total 2172 ml Output Total 2130 ml Balance 42 ml IV Total 81 ml Tube Feeding 1540 ml Other 551 ml Output Urine Total 1980 ml Stool Total 150 ml General: No acute distress HEENT: Other (trach intact) Abdomen: Soft Labs Laboratory Tests Test 10/15/20 12:26 10/15/20 17:44 10/16/20 00:21 10/16/20 05:45 Glucose (Fingerstick) 142 mg/dL (70-99) 164 mg/dL (70-99) 130 mg/dL (70-99) White Blood Count 5.9 x10^3/uL (4.0-11.0) Red Blood Count 3.07 x10^6/uL (4.30-5.70) Hemoglobin 9.8 g/dL (13.0-17.5) Hematocrit 29.1 % (39.0-53.0) Mean Corpuscular Volume 95 fL (79-100) Mean Corpuscular Hemoglobin 32 pg (25-35) Mean Corpuscular Hemoglobin Concent 34 g/dL (31-37) Red Cell Distribution Width 16.8 % (11.5-14.5) Platelet Count 246 x10^3/uL (140-400) Activated Partial Thromboplast Time 74 SEC (24-38) Test 10/16/20 05:50 10/16/20 06:08 10/16/20 12:56 10/16/20 18:02 Prothrombin Time 19.4 SEC (11.7-14.0) Prothromb Time International Ratio 1.7 (0.8-1.1) Sodium Level 135 mmol/L (136-145) Potassium Level 3.7 mmol/L (3.5-5.1) Chloride Level 98 mmol/L (98-107) Carbon Dioxide Level 33 mmol/L (21-32) Anion Gap 4 (6-14) Blood Urea Nitrogen 21 mg/dL (8-26) Creatinine 0.7 mg/dL (0.7-1.3) Estimated GFR (Cockcroft-Gault) 110.9 Glucose Level 146 mg/dL (70-99) Calcium Level 9.4 mg/dL (8.5-10.1) Glucose (Fingerstick) 141 mg/dL (70-99) 148 mg/dL (70-99) 163 mg/dL (70-99) Test 10/16/20 23:43 10/17/20 05:40 10/17/20 05:47 Glucose (Fingerstick) 131 mg/dL (70-99) 121 mg/dL (70-99) Activated Partial Thromboplast Time 75 SEC (24-38) Laboratory Tests Test 10/16/20 12:56 10/16/20 18:02 10/16/20 23:43 10/17/20 05:40 Glucose (Fingerstick) 148 mg/dL (70-99) 163 mg/dL (70-99) 131 mg/dL (70-99) Activated Partial Thromboplast Time 75 SEC (24-38) Test 10/17/20 05:47 Glucose (Fingerstick) 121 mg/dL (70-99) Problem List Problems Medical Problems: (1) NSTEMI (non-ST elevated myocardial infarction) Status: Acute (2) Obtundation Status: Acute (3) Respiratory arrest Status: Acute Assessment/Plan to OR in AM for laparoscopic versus open gastrostomy tube placement Justicifation of Admission Dx: Justifications for Admission: Justification of Admission Dx: Yes CHF: Cardiac Arrhythmias SCAR BRO MD Oct 17, 2020 11:10
--- NOTE | 2020-10-17 13:45 | PDOC ---
[facility] PROGRESS NOTE Date of Service DOS: DATE: 10/17/20 TIME: 13:36 Chief Complaint Chief Complaint CC: Acute anemia Acute metabolic, infectious encephalopathy Acute respiratory failure Healthcare associated pneumonia Acute hypoglycemia Hypokalemia Elevated troponins Severe protein malnutrition Morbid obesity AAA, 4 cm, infrarenal History of diabetes mellitus type 2 History of dyslipidemia history of hypertension History of recent STEMI History of CAD History of peripheral artery disease History of JEANNE History of CVA History of paroxysmal atrial fibrillation Ischemic cardiomyopathy History of Present Illness History of Present Illness Mr Andrews is a 70-year-old male with a recent prolonged hospitalization for STEMI and respiratory failure for which she was treated with arterial thrombolysis for a right leg popliteal artery aneurysm and also had left heart cath with placement of a stent in the LAD and RCA comes in today after he was found obtunded at his retirement facility. Apparently according to the nursing facility patient was in his usual state of health and he was conversational but then became altered. His blood glucose was found to be in the 30s. Glucose tabs and glucagon was given in route and his GCS reported at 6. Upon arrival patient's mental status did not improve and he was eventually intubated for airway protection. Of note EMS was bagging the patient through the nasal access. In the ED, patient was placed on a vent and pulmonology was consulted. Patient was also taken to the CT scanner for sanders scanning. Patient was started to wake up on the vent and sedation was ordered. 09/23: Patient examined at bedside. Intubated. Not on any sedation but unresponsive. Neurology consult in place. 09/24: Patient seen and examined at bedside. Remains intubated he is off sedation but still remains unresponsive. Planning for MRI brain in the morning. Further plan to be determined by MRI. 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 09/25: Afebrile, currently breathing on ventilator with FiO2 50%, PEEP 5. Had CODE BLUE in ICU this morning; received 2 rounds of CPR, epinephrine, and atropine with ROSC. MRI brain negative. Made DNR, and after discussion with Dr. Rubalcava he agrees. 09/26:: Afebrile. Still on vent, with FiO2 45%, PEEP 5. After discussion with Dr. Rubalcava yesterday, patient was made DNR. In the ED is likely a poor candidate for weaning trials may need trach in near future if no significant improvement. 09/27:: Afebrile. On vent with FiO2 40%, PEEP 5. Potassium 2.8 today, will replace. Warfarin has been resumed. Discussed with pharmacy, will resume aspirin and Plavix. May need tracheostomy by the end of the week if no improvement in mental status. 09/28:: Afebrile. On ventilator with FiO2 40%, PEEP 5. Warfarin has been re sumed; INR 1.3 today. Some morning labs still pending; hemoglobin yesterday 7.3, will continue to monitor. Continue IV cefepime and supportive care. 09/29: Afebrile. Breathing on vent with FiO2 40%, PEEP 5. INR 1.2 today; pharmacy to help with warfarin dosing. White count within normal range, renal function stable. Spoke with pharmacy about cefepime 1 g every 8 hours dosing; this has been changed to cefepime 2 g every 8 hours. 09/30: Afebrile. Currently breathing on vent with FiO2 40%, PEEP 5. Continue antibiotics, cefepime 2 g every 8 hours. INR 1.4; continue warfarin dosing per pharmacy. Possible tracheostomy at some point. Critical care time 30 minutes reviewing charts, labs, examination, discussion with RN. 10/01: T-max 100.3 F. On ventilator with FiO2 40%, PEEP 5. Continue antibiotics, cefepime 2 g every 8 hours. INR 1.4, still subtherapeutic; continue warfarin dosing per pharmacy. Possible tracheostomy at some point. 10/02: No acute events overnight. Patient saturating 99% on vent settings of 10/450/40/5. Patient will likely need a trach and PEG at some point. We will hold warfarin and start 2 units PRBC transfusion. Patient's chart, labs, images were reviewed and discussed with RN 10/03: No acute events overnight. Patient sat 100% on minimal vent settings. No sedation at this point and patient is opening his eyes spontaneously. Not much response or spontaneous movements. Surgery has been consulted for tracheostomy. Patient will also likely need a PEG tube. 10/04: No acute events overnight. Patient saturating 90% on minimal vent settings. T-max 100.4 overnight. Plan for trach tomorrow with surgery. Patient's chart, labs, images were reviewed and discussed with RN 10/05: No acute events overnight. Patient saturating 99% on minimal vent settings. Plan for tracheostomy today. Consent is provided by authorization by 2 physicians due to patient having no close relatives or DPOA. Will resume heparin and warfarin bridging tomorrow after tracheostomy 10/07: No acute events overnight. Patient seen and examined bedside. On trach vent. Saturating 99%. Pending GI evaluation for possible PEG placement after discussing with cardiology whether to continue with Plavix. Possibly place PEG if patient is only on aspirin and stopping argatroban. 10/08: No acute events overnight. Patient continues to be on trach mechanical vent. Saturating 100%. Pending decision from GI whether to proceed with PEG placement depending on the type of anticoagulation patient will be on. 10/09: No overnight events. On trach with vent support 40% FiO2 PEEP of 5. Currently argatroban and propofol for minimal sedation. When sedation is weaned he has no meaningful movements but has pulled at his tracheostomy site. Unable to hold plavix due to recently placed stents. 10/10: Afebrile today. On trach with vent support 40% FiO2 PEEP of 5. Continue argatroban and changed to Aggrastat in anticipation of surgical consultation for potential laparoscopic PEG placement. INR 1.6. Hb greater than 9 no significant neurologic recovery today. 10/11: Afebrile. On trach with vent support 40% FiO2 PEEP of 5. INR 1.8. Not making meaningful eye contact. Labs otherwise stable. 10/12: Afebrile. Trach with vent support 40% FiO2 PEEP five O2 saturations 92%. INR 1.8, mag 1.8, Hb 8.4. Not following commands. Tentative plans for surgical PEG next week. 10/13: Afebrile. Trach with vent support 40% FiO2 PEEP 5. Eyes open, not tracking or following commands. Holding Plavix. On argatroban. 10/14: Afebrile. Trach with vent support 40% FiO2 PEEP of 5. Will open eyes intermittently not necessarily to voice. Good urine output. Labs stable. 10/15: Afebrile overnight. Trach with vent AC 40% fio2 PEEP 5. Had a very large bowel movement. Still not tracking. Hb 9, INR 1.7, glucose 144. Tentative plan for PEG 10/18/2020 CC time 30 minutes 10/16/20: Patient seen and examined in the ICU. He was resting and still on vent via trach. Has NG running via Dobhoff, feeding at 40cc/hr. AC/10/450/40% plus 5 PEEP. Discussed with RN. Chart reviewed. 10/17/20: Patient was seen and examined in the ICU today. Still on vent via trach at AC/10/450/40 plus 5 PEEP. While examined, patient was at 100% O2 saturation. Has SCDs on for DVT prophylaxis. Stauffer catheter in place. On IV argatroban. R subclavian triple lumen in place. Dobhoff running at 40cc/hr. Discussed with RN. Chart reviewed. Vitals/I&O Vitals/I&O: Vital Signs Date Time Temp Pulse Resp B/P (MAP) Pulse Ox O2 Delivery O2 Flow Rate FiO2 10/17/20 13:16 83 20 92/53 (66) 100 Ventilator 10/17/20 12:39 99.2 99.2 I & O 10/16/20 10/16/20 10/17/20 15:00 23:00 07:00 Intake Total 200 ml 200 ml 1772 ml Output Total 1320 ml 310 ml 500 ml Balance -1120 ml -110 ml 1272 ml Physical Exam General: No acute distress Heart: Regular rate (SR), Other (distatne heart sounds) Lungs: Other (Tracheostomy) Abdomen: Soft Extremities: No cyanosis, Other (2-3+ bilateral LE pitting edema) Skin: No rashes, No significant lesion Labs Labs: Laboratory Tests Test 10/16/20 18:02 10/16/20 23:43 10/17/20 05:40 10/17/20 05:47 Glucose (Fingerstick) 163 mg/dL (70-99) 131 mg/dL (70-99) 121 mg/dL (70-99) Activated Partial Thromboplast Time 75 SEC (24-38) Test 10/17/20 11:21 10/17/20 12:48 Glucose (Fingerstick) 123 mg/dL (70-99) 137 mg/dL (70-99) Review of Systems Review of Systems: GI: no nausea. no vomiting. Eyes: no changes in vision. no blurry vision. Assessment and Plan Assessmemt and Plan Problems Medical Problems: (1) NSTEMI (non-ST elevated myocardial infarction) Status: Acute (2) Obtundation Status: Acute (3) Respiratory arrest Status: Acut Respiratory failure Acute metabolic, infectious encephalopathy Acute respiratory failure Healthcare associated pneumonia Acute hypoglycemia Hypokalemia Elevated troponins Anemia Severe protein malnutrition Morbid obesity AAA, 4 cm, infrarenal History of diabetes mellitus type 2 History of dyslipidemia history of hypertension History of recent STEMI History of CAD History of peripheral artery disease History of JEANNE History of CVA History of paroxysmal atrial fibrillation Ischemic cardiomyopathy Plan: 1. ICU monitoring 2. Continue IV anticoagulation (Argatroban) 3. Vent weaning 4. Continue Dobhoff feeding 5. Continue Stauffer to bedside 6. Monitor rectal bag 7. Trend labs 8. Trend chest x-rays 9. Prognosis guarded Appreciate subspecialist input CC time 32-minute Comment Review of Relevant I have reviewed the following items denise (where applicable) has been applied. Justifications for Admission Other Justification Hypoglycemia and altered mental status. MANNY THOMASON III DO Oct 17, 2020 13:45
--- NOTE | 2020-10-17 14:36 | PDOC ---
PROGRESS NOTES Date of Service DATE: 10/17/20 TIME: 14:34 Assessment Problems Medical Problems: (1) NSTEMI (non-ST elevated myocardial infarction) Status: Acute (2) Obtundation Status: Acute (3) Respiratory arrest Status: Acute Found obtunded at [facility], admitted 09/22, unresponsive, hypoglycemic, no new stroke on MRI CODE BLUE on 09/26 Last admit had prolonged encephalopathy following the development of cardiogenic shock, STEMI, with negative EEG and CT head Remote history of seizures Critical illness neuropathy/myopathy Respiratory failure Last admit and this admit: septic shock, leukocytosis, lactic acidosis, acute kidney injury, 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, thrombocytopenia (heparin-induced), hematuria, anemia, hyperbilirubinemia Status-post tracheostomy on 10/05 Plan Awaiting placement, I understand the current power of assistant prosecuting attorney (?) refuses to sign admission papers DO NOT RESUSCITATE Neurology will follow at intervals Subjective None Objective Vital Signs Date Time Temp Pulse Resp B/P (MAP) Pulse Ox O2 Delivery O2 Flow Rate FiO2 10/17/20 14:03 70 15 103/61 (75) 100 Ventilator 10/17/20 12:39 99.2 99.2 Intake and Output 10/17/20 07:00 Intake Total 2172 ml Output Total 2130 ml Balance 42 ml IV Total 81 ml Tube Feeding 1540 ml Other 551 ml Output Urine Total 1980 ml Stool Total 150 ml PHYSICAL EXAM Intubated, on sedation, unresponsive PERRL. EOMI. CN: no focal findings. Muscle tone: normal. Muscle strength: Slight spontaneous movements DTR: 1+ Plantar reflex: Silent Gait: not examined Sensory exam: Not testable Cerebellar: not testable Review of Relevant I have reviewed the following items denise (where applicable) has been applied. Labs Laboratory Tests Test 10/15/20 17:44 10/16/20 00:21 10/16/20 05:45 10/16/20 05:50 Glucose (Fingerstick) 164 mg/dL (70-99) 130 mg/dL (70-99) White Blood Count 5.9 x10^3/uL (4.0-11.0) Red Blood Count 3.07 x10^6/uL (4.30-5.70) Hemoglobin 9.8 g/dL (13.0-17.5) Hematocrit 29.1 % (39.0-53.0) Mean Corpuscular Volume 95 fL (79-100) Mean Corpuscular Hemoglobin 32 pg (25-35) Mean Corpuscular Hemoglobin Concent 34 g/dL (31-37) Red Cell Distribution Width 16.8 % (11.5-14.5) Platelet Count 246 x10^3/uL (140-400) Activated Partial Thromboplast Time 74 SEC (24-38) Prothrombin Time 19.4 SEC (11.7-14.0) Prothromb Time International Ratio 1.7 (0.8-1.1) Sodium Level 135 mmol/L (136-145) Potassium Level 3.7 mmol/L (3.5-5.1) Chloride Level 98 mmol/L (98-107) Carbon Dioxide Level 33 mmol/L (21-32) Anion Gap 4 (6-14) Blood Urea Nitrogen 21 mg/dL (8-26) Creatinine 0.7 mg/dL (0.7-1.3) Estimated GFR (Cockcroft-Gault) 110.9 Glucose Level 146 mg/dL (70-99) Calcium Level 9.4 mg/dL (8.5-10.1) Test 10/16/20 06:08 10/16/20 12:56 10/16/20 18:02 10/16/20 23:43 Glucose (Fingerstick) 141 mg/dL (70-99) 148 mg/dL (70-99) 163 mg/dL (70-99) 131 mg/dL (70-99) Test 10/17/20 05:40 10/17/20 05:47 10/17/20 11:21 10/17/20 12:48 Activated Partial Thromboplast Time 75 SEC (24-38) Glucose (Fingerstick) 121 mg/dL (70-99) 123 mg/dL (70-99) 137 mg/dL (70-99) Laboratory Tests Test 10/16/20 18:02 10/16/20 23:43 10/17/20 05:40 10/17/20 05:47 Glucose (Fingerstick) 163 mg/dL (70-99) 131 mg/dL (70-99) 121 mg/dL (70-99) Activated Partial Thromboplast Time 75 SEC (24-38) Test 10/17/20 11:21 10/17/20 12:48 Glucose (Fingerstick) 123 mg/dL (70-99) 137 mg/dL (70-99) Medications Current Medications Fentanyl Citrate 30 ml @ 0 mls/hr CONT PRN IV SEE PROTOCOL; Start 09/22/20 at 09:45; Stop 10/13/20 at 09:24; Status DC Propofol 100 ml @ 0 mls/hr CONT PRN IV PER PROTOCOL Last administered on 09/22/20at 10:30; Start 09/22/20 at 09:45; Stop 09/26/20 at 20:12; Status DC Fentanyl Citrate (Fentanyl 2ml Vial) 25 mcg PRN Q1HR PRN IV SEE COMMENTS; Start 09/22/20 at 09:45 Fentanyl Citrate (Fentanyl 2ml Vial) 50 mcg PRN Q1HR PRN IV SEE COMMENTS Last administered on 10/03/20at 01:22; Start 09/22/20 at 09:45 Chlorhexidine Gluconate (Peridex) 15 ml BID MM ; Start 09/22/20 at 10:00; Stop 09/22/20 at 19:54; Status DC Midazolam HCl (Versed) 2 mg 1X ONCE IV ; Start 09/22/20 at 10:30; Stop 09/22/20 at 10:31; Status DC Iohexol (Omnipaque 300 Mg/ml) 75 ml 1X ONCE IV Last administered on 09/22/20at 11:06; Start 09/22/20 at 10:45; Stop 09/22/20 at 10:46; Status DC Info (CONTRAST GIVEN -- Rx MONITORING) 1 each PRN DAILY PRN MC SEE COMMENTS; S tart 09/22/20 at 10:45; Stop 09/24/20 at 10:44; Status DC Potassium Chloride/Water 100 ml @ 100 mls/hr Q1H IV Last administered on 09/22/20at 20:27; Start 09/22/20 at 15:00; Stop 09/22/20 at 18:59; Status DC Cefepime HCl (Maxipime) 1 gm Q8HRS IVP Last administered on 09/29/20at 05:52; Start 09/22/20 at 14:00; Stop 09/29/20 at 10:32; Status DC Sennosides (Senna) 17.2 mg PRN BID PRN PO CONSTIPATION; Start 09/22/20 at 14:00 Docusate Sodium (Colace) 100 mg PRN DAILY PRN PO HARD STOOLS; Start 09/22/20 at 14:00; Stop 09/22/20 at 14:00; Status DC Ondansetron HCl (Zofran) 4 mg PRN Q6HRS PRN IVP NAUSEA/VOMITING, 1ST CHOICE; Start 09/22/20 at 14:00 Insulin Human Lispro (HumaLOG) 0-7 UNITS Q6HRS SQ Last administered on 10/16/20at 18:25; Start 09/22/20 at 18:00 Dextrose (Dextrose 50%-Water Syringe) 12.5 gm PRN Q15MIN PRN IV SEE COMMENTS Last administered on 09/22/20at 17:47; Start 09/22/20 at 14:00 Dextrose/Sodium Chloride 1,000 ml @ 50 mls/hr Q20H IV Last administered on 10/12/20at 11:04; Start 09/22/20 at 14:00; Stop 10/13/20 at 09:24; Status DC Acetaminophen (Tylenol) 650 mg PRN Q4HRS PRN PO TEMP OVER 100.4F OR MILD PAIN Last administered on 09/23/20at 00:20; Start 09/22/20 at 14:00; Stop 09/23/20 at 16:24; Status DC Enoxaparin Sodium (Lovenox 40mg Syringe) 40 mg Q24H SQ ; Start 09/22/20 at 14:00; Status UNV Pantoprazole Sodium (PROTONIX VIAL for IV PUSH) 40 mg DAILY IVP Last administe red on 10/17/20at 08:04; Start 09/23/20 at 09:00 Prochlorperazine Edisylate (Compazine) 10 mg PRN Q6HRS PRN IV NAUSEA/VOMITING, 2ND CHOICE; Start 09/22/20 at 14:00 Etomidate (Amidate) 20 mg STK-MED ONCE IV ; Start 09/22/20 at 17:46; Stop 09/22/20 at 17:46; Status DC Rocuronium [place] (Zemuron) 50 mg STK-MED ONCE .ROUTE ; Start 09/22/20 at 17:46; Stop 09/22/20 at 17:47; Status DC Norepinephrine Bitartrate 8 mg/ Dextrose 258 ml @ 21.769 mls/ hr CONT PRN IV PER PROTOCOL Last administered on 09/24/20at 13:20; Start 09/22/20 at 18:15; Stop 10/13/20 at 09:24; Status DC Potassium Chloride/Water 100 ml @ 100 mls/hr Q1H IV Last administered on 09/23/20at 14:30; Start 09/23/20 at 07:00; Stop 09/23/20 at 14:59; Status DC Acetaminophen (Tylenol) 650 mg PRN Q6HRS PRN PEG MILD PAIN / TEMP > 100.3'F Last administered on 09/23/20at 16:34; Start 09/23/20 at 16:30 Warfarin Sodium (Coumadin Per Pharmacy) 1 each PRN DAILY PRN MC SEE COMMENTS Last administered on 10/01/20at 12:32; Start 09/24/20 at 12:30; Stop 10/02/20 at 05:55; Status DC Warfarin Sodium (Coumadin) 5 mg 1X WARF ONCE PO Last administered on 09/24/20at 17:42; Start 09/24/20 at 16:00; Stop 09/24/20 at 16:01; Status DC Warfarin Sodium (Coumadin - No Dose Today) 1 each 1X WARF ONCE MC ; Start 09/25/20 at 16:00; Stop 09/25/20 at 16:01; Status DC Warfarin Sodium (Coumadin) 1 mg 1X WARF ONCE PO Last administered on 09/26/20at 16:00; Start 09/26/20 at 16:00; Stop 09/26/20 at 16:01; Status DC Propofol 100 ml @ 3.174 mls/ hr CONT PRN IV PER PROTOCOL Last administered on 10/09/20at 04:43; Start 09/26/20 at 20:15; Stop 10/13/20 at 09:24; Status DC Atropine Sulfate (ATROPINE 1mg SYRINGE) 1 mg STK-MED ONCE .ROUTE ; Start 09/25/20 at 10:00; Stop 09/27/20 at 08:20; Status DC Epinephrine HCl (EPINEPHrine SYRINGE) 1 mg STK-MED ONCE .ROUTE ; Start 09/25/20 at 10:00; Stop 09/27/20 at 08:20; Status DC Warfarin Sodium (Coumadin) 2 mg 1X WARF ONCE PO Last administered on 09/27/20 17:53; Start 09/27/20 at 16:00; Stop 09/27/20 at 16:01; Status DC Aspirin (Aspirin Chewable) 81 mg DAILYWBKFT PO Last administered on 10/06/20at 11:39; Start 09/27/20 at 09:30; Stop 10/06/20 at 16:23; Status DC Clopidogrel Bisulfate (Plavix) 75 mg DAILYWBKFT PO Last administered on 10/09/20at 09:24; Start 09/27/20 at 09:30; Stop 10/09/20 at 17:03; Status DC Potassium Chloride/Water 100 ml @ 100 mls/hr Q1H IV Last administered on 09/27/20 12:45; Start 09/27/20 at 11:30; Stop 09/27/20 at 13:29; Status DC Warfarin Sodium (Coumadin) 3 mg 1X WARF ONCE PO Last administered on 09/28/20at 18:18; Start 09/28/20 at 16:00; Stop 09/28/20 at 16:01; Status DC Cefepime HCl (Maxipime) 2 gm Q8HRS IVP Last administered on 10/17/20at 13:58; Start 09/29/20 at 14:00 Warfarin Sodium (Coumadin) 3 mg 1X WARF ONCE PO Last administered on 09/29/20at 16:55; Start 09/29/20 at 16:00; Stop 09/29/20 at 16:01; Status DC Warfarin Sodium (Coumadin) 3 mg 1X WARF ONCE PO Last administered on 09/30/20at 16:00; Start 09/30/20 at 16:00; Stop 09/30/20 at 16:01; Status DC Warfarin Sodium (Coumadin) 5 mg 1X WARF ONCE PO Last administered on 10/01/20at 16:35; Start 10/01/20 at 16:00; Stop 10/01/20 at 16:01; Status DC Multi-Ingred Cream/Lotion/Oil/ Oint (Artificial Tears Eye Ointment) 1 sudheer PRN Q1HR PRN OU DRY EYE Last administered on 10/03/20at 12:24; Start 10/02/20 at 12:45 Fentanyl Citrate (Fentanyl 2ml Vial) 25 mcg PRN Q5MIN PRN IVP MILD PAIN 1-3; Start 10/05/20 at 06:00; Stop 10/06/20 at 05:59; Status DC Fentanyl Citrate (Fentanyl 2ml Vial) 50 mcg PRN Q5MIN PRN IVP MODERATE PAIN 4- 6; Start 10/05/20 at 06:00; Stop 10/06/20 at 05:59; Status DC Morphine Sulfate (Morphine Sulfate) 1 mg PRN Q10MIN PRN IVP SEVERE PAIN 7-10; Start 10/05/20 at 06:00; Stop 10/06/20 at 05:59; Status UNV Ringer's Solution 1,000 ml @ 30 mls/hr Q24H IV ; Start 10/05/20 at 06:00; Stop 10/05/20 at 17:59; Status DC Hydromorphone HCl (Dilaudid) 0.5 mg PRN Q10MIN PRN IVP SEVERE PAIN 7-10, 2nd CHOICE; Start 10/05/20 at 06:00; Stop 10/06/20 at 05:59; Status UNV Prochlorperazine Edisylate (Compazine) 5 mg PACU PRN PRN IVP NAUSEA, MRX1; Start 10/05/20 at 06:00; Stop 10/06/20 at 05:59; Status DC Bupivacaine HCl/ Epinephrine Bitart (Sensorcain-Epi 0.5%-1:317786 Mpf) 30 ml STK-MED ONCE .ROUTE Last administered on 10/05/20at 10:09; Start 10/05/20 at 07:12; Stop 10/05/20 at 07:12; Status DC Cellulose (Surgicel Fibrillar 1x2) 1 each STK-MED ONCE .ROUTE Last administered on 10/05/20at 10:30; Start 10/05/20 at 07:12; Stop 10/05/20 at 07:12; Status DC Rocuronium [place] (Zemuron) 50 mg STK-MED ONCE .ROUTE ; Start 10/05/20 at 09:06; Stop 10/05/20 at 09:06; Status DC Rocuronium [place] (Zemuron) 50 mg STK-MED ONCE .ROUTE ; Start 10/05/20 at 10:10; Stop 10/05/20 at 10:10; Status DC Warfarin Sodium (Coumadin Per Pharmacy) 1 each PRN DAILY PRN MC SEE COMMENTS Last administered on 10/06/20at 09:32; Start 10/05/20 at 14:00; Stop 10/06/20 at 16:23; Status DC Argatroban (Argatroban Per Pharmacy) 1 each PRN DAILY PRN MC SEE COMMENTS Last administered on 10/13/20at 16:34; Start 10/05/20 at 14:00 Argatroban 50 mg/ Sodium Chloride 50 ml @ 6.48 mls/hr CONT PRN IV ADJUST PER PTT; Start 10/05/20 at 14:00; Stop 10/05/20 at 13:59; Status DC Argatroban 50 mg/ Sodium Chloride 50 ml @ 6.48 mls/hr CONT PRN IV ADJUST PER PTT; Start 10/06/20 at 00:00; Status Cancel Warfarin Sodium (Coumadin) 5 mg 1X WARF ONCE PO Last administered on 10/05/20at 21:23; Start 10/05/20 at 16:00; Stop 10/05/20 at 16:01; Status DC Argatroban 50 mg/ Sodium Chloride 50 ml @ 0 mls/hr CONT PRN IV PER PROTOCOL Last administered on 10/17/20at 05:10; Start 10/06/20 at 09:00 Warfarin Sodium (Coumadin) 5 mg 1X WARF ONCE PO ; Start 10/06/20 at 16:00; Stop 10/06/20 at 16:01; Status Cancel Amiodarone HCl (Cordarone) 400 mg DAILY PO Last administered on 10/17/20at 08:06; Start 10/06/20 at 10:00 Atorvastatin Calcium (Lipitor) 40 mg QHS PO Last administered on 10/16/20at 20:35; Start 10/06/20 at 21:00 Metoprolol Tartrate (Lopressor) 25 mg BID PO Last administered on 10/17/20at 08:05; Start 10/06/20 at 10:00 Furosemide (Lasix) 40 mg DAILY IVP Last administered on 10/17/20at 08:04; Start 10/06/20 at 10:00 Potassium Bicarbonate (Potassium Effervescent Tablet) 20 meq DAILY PEG Last administered on 10/17/20at 08:05; Start 10/06/20 at 10:00 Tirofiban/Sodium Chloride 100 ml @ 0 mls/hr CONT PRN IV PER PROTOCOL Last administered on 10/11/20at 14:11; Start 10/09/20 at 17:00; Stop 10/11/20 at 20:21; Status DC Albumin Human 100 ml @ 100 mls/hr 1X ONCE IV Last administered on 10/12/20at 15:22; Start 10/12/20 at 14:00; Stop 10/12/20 at 14:59; Status DC Furosemide (Lasix) 40 mg 1X ONCE IVP Last administered on 10/12/20at 15:22; Start 10/12/20 at 15:00; Stop 10/12/20 at 15:01; Status DC Aspirin (Aspirin Chewable) 81 mg 1X ONCE PO Last administered on 10/13/20at 12:25; Start 10/13/20 at 10:30; Stop 10/13/20 at 10:31; Status DC Aspirin (Aspirin Chewable) 81 mg DAILYWBKFT PO Last administered on 10/17/20at 08:04; Start 10/14/20 at 08:00 Active Scripts Active Amiodarone Hcl 200 Mg Tablet 400 Mg PO DAILY 90 Days [Warfarin Per Pharmacy] 1 EACH Each 1 Each MC PRN DAILY PRN 30 Days Clopidogrel (Clopidogrel Bisulfate) 75 Mg Tablet 75 Mg PO DAILYWBKFT 90 Days Humalog (Insulin Lispro) 100 Unit/1 Ml Insuln.pen 0 Units SQ TIDWMEALS 30 Days Duoneb 0.5-3(2.5) Mg/3 Ml (Albuterol/Ipratropium) 3 Ml Ampul.neb 3 Ml NEB RTQID 30 Days Aspirin 325 Mg Tablet 325 Mg PO DAILYWBKFT 30 Days Metoprolol Tartrate 25 Mg Tablet 25 Mg PO BID 30 Days Montelukast Sodium Tablet (Montelukast Sodium) 10 Mg Tablet 10 Mg PO QHS Gabapentin 600 Mg Tablet 600 Mg PO BID 30 Days Reported Glimepiride 4 Mg Tablet 1 Tab PO DAILY Furosemide 40 Mg Tablet 1 Tab PO BID Symbicort 160-4.5 Mcg Inhaler (Budesonide/Formoterol Fumarate) 10.2 Gm Hfa.aer.ad 1 Puff INH DAILY Losartan-Hctz 100-12.5 Mg Tab (Losartan/Hydrochlorothiazide) 1 Each Tablet 1 Tab PO DAILY Nitrofurantoin [place]-Mcr 100 Mg (Nitrofurantoin Monohyd/M-Cryst) 100 Mg Capsule 1 Cap PO BID Betamethasone Valerate 60 Ml Lotion 1 TP QHS Atorvastatin Calcium 40 Mg Tablet 1 Tab PO DAILY Diltiazem 24Hr Cd (Diltiazem HCl) 240 Mg Cap.er.24h 1 Cap PO DAILY Nystop (Nystatin) 60 Gm Powder 1 Sudheer TP BID Pepcid (Famotidine) 20 Mg Tablet 20 Mg PO BID Vitals/I & O Vital Sign - Last 24 Hours 10/16/20 10/16/20 10/16/20 10/16/20 15:00 16:00 16:00 16:17 Temp 99.0 99.0 Pulse 92 82 Resp 19 13 B/P (MAP) 129/72 (91) 112/63 (79) Pulse Ox 99 98 98 O2 Delivery Ventilator Ventilator Mechanical Ventilator Ventilator 10/16/20 10/16/20 10/16/20 10/16/20 17:00 18:00 18:27 19:00 Pulse 85 85 83 Resp 16 13 16 B/P (MAP) 120/69 (86) 95/58 (70) 100/65 (77) Pulse Ox 99 94 99 99 O2 Delivery Ventilator Ventilator Ventilator Ventilator 10/16/20 10/16/20 10/16/20 10/16/20 19:50 20:00 20:00 20:36 Temp 99.2 99.2 Pulse 87 90 Resp 13 B/P (MAP) 142/84 (103) 111/69 Pulse Ox 99 99 O2 Delivery Mechanical Ventilator Ventilator Ventilator 10/16/20 10/16/20 10/16/20 10/16/20 21:00 22:00 23:00 23:00 Pulse 81 75 78 Resp 10 14 14 B/P (MAP) 115/71 (86) 96/58 (71) 95/57 (70) Pulse Ox 99 99 100 100 O2 Delivery Ventilator Ventilator Ventilator Ventilator 10/16/20 10/17/20 10/17/20 10/17/20 23:45 00:00 01:00 02:00 Temp 98.8 98.8 Pulse 76 78 Resp 11 14 B/P (MAP) 115/69 (84) 108/67 (81) Pulse Ox 99 98 99 O2 Delivery Mechanical Ventilator Ventilator Ventilator Ventilator 10/17/20 10/17/20 10/17/20 10/17/20 02:00 03:00 04:00 04:00 Temp 99.2 99.2 Pulse 81 84 82 Resp 11 18 20 B/P (MAP) 102/60 (74) 106/62 (77) 106/62 (77) Pulse Ox 100 98 99 O2 Delivery Ventilator Ventilator Mechanical Ventilator Ventilator 10/17/20 10/17/20 10/17/20 10/17/20 05:00 05:00 06:00 08:00 Temp 98.9 98.9 Pulse 84 81 85 Resp 14 10 13 B/P (MAP) 102/63 (76) 100/60 (73) 116/116 (116) Pulse Ox 99 99 98 99 O2 Delivery Ventilator Ventilator Ventilator Ventilator 10/17/20 10/17/20 10/17/20 10/17/20 08:00 08:05 08:06 08:35 Pulse 85 85 B/P (MAP) 130/75 Pulse Ox 100 O2 Delivery Mechanical Ventilator Ventilator 10/17/20 10/17/20 10/17/20 10/17/20 09:03 09:30 10:50 11:09 Pulse 87 76 81 Resp 14 16 B/P (MAP) 94/57 (69) 123/77 (92) 132/83 (99) Pulse Ox 100 100 100 O2 Delivery Ventilator Ventilator Ventilator Ventilator 10/17/20 10/17/20 10/17/20 10/17/20 12:39 12:43 12:50 13:16 Temp 99.2 99.2 Pulse 78 83 Resp 14 20 B/P (MAP) 122/74 (90) 92/53 (66) Pulse Ox 100 100 100 O2 Delivery Ventilator Mechanical Ventilator Ventilator Ventilator 10/17/20 14:03 Pulse 70 Resp 15 B/P (MAP) 103/61 (75) Pulse Ox 100 O2 Delivery Ventilator Intake and Output 10/16/20 10/16/20 10/17/20 15:00 23:00 07:00 Intake Total 200 ml 200 ml 1772 ml Output Total 1320 ml 310 ml 500 ml Balance -1120 ml -110 ml 1272 ml Justicifation of Admission Dx: Justifications for Admission: Justification of Admission Dx: Yes CHF: Cardiac Arrhythmias RAFAEL REINOSO MD Oct 17, 2020 14:36
[2020-10-17] MEDS: ATORVASTATIN CALCIUM 40 MG TABLET. PO SCH (21:42)
[2020-10-18] VITALS (20 sets, daily range): BP systolic 89–162; BP diastolic 52–90
[2020-10-18] MEDS: INSULIN LISPRO 300 UNITS/3 ML VIAL. SQ SCH ×4 (00:44→17:39)
[2020-10-18] MEDS: ARGATROBAN 50 MG in IV NORMAL SALINE 50ML 50 ML IV PRN (01:25)
[2020-10-18] MEDS ORDERED: IV RINGERS,LACTATED 1000ML 1,000 ML IV SCH (06:00)
[2020-10-18] MEDS: CEFEPIME HCL IV Push 2 GM VIAL. IVP SCH ×3 (06:00→21:05)
[2020-10-18] MEDS ORDERED: fentaNYL PF VIAL 100 MCG/2 ML VIAL IVP PRN (06:00)
[2020-10-18] MEDS: ASPIRIN CHEWABLE 81 MG TABLET. PO SCH (08:00)
[2020-10-18] MEDS: AMIODARONE HCL 200 MG TABLET. PO SCH (09:00)
[2020-10-18] MEDS: METOPROLOL TART IMMED RELEASE 25 MG TABLET. PO SCH ×2 (09:00→21:00)
[2020-10-18] MEDS: POTASSIUM BICARB 20 MEQ EFFERVESCENT TABLET. PEG SCH (09:00)
--- NOTE | 2020-10-18 09:28 | PDOC ---
SURGICAL PROGRESS NOTE DATE: 10/18/20 TIME: 09:27 Subjective Pre-Op Note 70 yo M with respiratory failure. TO OR for laparoscopic versus open G-tube placement Medically indicated. Vital Signs Vital Signs Date Time Temp Pulse Resp B/P (MAP) Pulse Ox O2 Delivery O2 Flow Rate FiO2 10/18/20 08:25 100 Ventilator 10/18/20 08:00 98.5 84 18 115/68 (84) 98.5 I&O Intake and Output 10/18/20 07:00 Intake Total 2500 ml Output Total 2085 ml Balance 415 ml IV Total 83 ml Tube Feeding 1657 ml Other 760 ml Output Urine Total 2085 ml Labs Laboratory Tests Test 10/16/20 12:56 10/16/20 18:02 10/16/20 23:43 10/17/20 05:40 Glucose (Fingerstick) 148 mg/dL (70-99) 163 mg/dL (70-99) 131 mg/dL (70-99) Activated Partial Thromboplast Time 75 SEC (24-38) Test 10/17/20 05:47 10/17/20 11:21 10/17/20 12:48 10/17/20 17:47 Glucose (Fingerstick) 121 mg/dL (70-99) 123 mg/dL (70-99) 137 mg/dL (70-99) 166 mg/dL (70-99) Test 10/18/20 00:42 10/18/20 05:50 10/18/20 05:57 Glucose (Fingerstick) 154 mg/dL (70-99) 137 mg/dL (70-99) Activated Partial Thromboplast Time 69 SEC (24-38) Laboratory Tests Test 10/17/20 11:21 10/17/20 12:48 10/17/20 17:47 10/18/20 00:42 Glucose (Fingerstick) 123 mg/dL (70-99) 137 mg/dL (70-99) 166 mg/dL (70-99) 154 mg/dL (70-99) Test 10/18/20 05:50 10/18/20 05:57 Activated Partial Thromboplast Time 69 SEC (24-38) Glucose (Fingerstick) 137 mg/dL (70-99) Problem List Problems Medical Problems: (1) NSTEMI (non-ST elevated myocardial infarction) Status: Acute (2) Obtundation Status: Acute (3) Respiratory arrest Status: Acute Justicifation of Admission Dx: Justifications for Admission: Justification of Admission Dx: Yes CHF: Cardiac Arrhythmias SCAR BRO MD Oct 18, 2020 09:28
--- NOTE | 2020-10-18 09:33 | PDOC ---
PULMONARY PROGRESS NOTES DATE: 10/18/20 TIME: 09:33 Subjective Spoke with RN no new events overnight patient continues to be encephalopathic On pressure support throughout the day Does not follow any commands Vitals Vital Signs Date Time Temp Pulse Resp B/P (MAP) Pulse Ox O2 Delivery O2 Flow Rate FiO2 10/18/20 08:25 100 Ventilator 10/18/20 08:00 98.5 84 18 115/68 (84) 98.5 General: No acute distress HEENT: Other (nc at perrl nose clear orally intubated neck no lad no thyromegaly) Lungs: Other (Tracheostomy) Cardiovascular: S1, S2 Abdomen: Soft, Non-tender, Other (Obese) Extremities: Other (1+ edema) Skin: Warm Labs Laboratory Tests Test 10/16/20 12:56 10/16/20 18:02 10/16/20 23:43 10/17/20 05:40 Glucose (Fingerstick) 148 mg/dL (70-99) 163 mg/dL (70-99) 131 mg/dL (70-99) Activated Partial Thromboplast Time 75 SEC (24-38) Test 10/17/20 05:47 10/17/20 11:21 10/17/20 12:48 10/17/20 17:47 Glucose (Fingerstick) 121 mg/dL (70-99) 123 mg/dL (70-99) 137 mg/dL (70-99) 166 mg/dL (70-99) Test 10/18/20 00:42 10/18/20 05:50 10/18/20 05:57 Glucose (Fingerstick) 154 mg/dL (70-99) 137 mg/dL (70-99) Activated Partial Thromboplast Time 69 SEC (24-38) Laboratory Tests Test 10/17/20 11:21 10/17/20 12:48 10/17/20 17:47 10/18/20 00:42 Glucose (Fingerstick) 123 mg/dL (70-99) 137 mg/dL (70-99) 166 mg/dL (70-99) 154 mg/dL (70-99) Test 10/18/20 05:50 10/18/20 05:57 Activated Partial Thromboplast Time 69 SEC (24-38) Glucose (Fingerstick) 137 mg/dL (70-99) Medications Active Scripts Medications Dose Route/Sig Max Daily Dose Days Date Category Amiodarone Hcl 200 Mg Tablet 400 Mg PO DAILY 09/18/20 Rx [Warfarin Per Pharmacy] 1 EACH Each 1 Each MC PRN DAILY PRN 30 09/18/20 Rx Clopidogrel (Clopidogrel Bisulfate) 75 Mg Tablet 75 Mg PO DAILYWBKFT 90 09/18/20 Rx Glimepiride 4 Mg Tablet 1 Tab PO DAILY 09/13/20 Reported Furosemide 40 Mg Tablet 1 Tab PO BID 09/13/20 Reported Symbicort 160-4.5 Mcg Inhaler (Budesonide/Formoterol Fumarate) 10.2 Gm Hfa.aer.ad 1 Puff INH DAILY 09/13/20 Reported Losartan-Hctz 100-12.5 Mg Tab (Losartan/Hydrochlorothiazide) 1 Each Tablet 1 Tab PO DAILY 09/13/20 Reported Nitrofurantoin [place]-Mcr 100 Mg (Nitrofurantoin Monohyd/M-Cryst) 100 Mg Capsule 1 Cap PO BID 09/13/20 Reported Betamethasone Valerate 60 Ml Lotion 1 TP QHS 09/13/20 Reported Atorvastatin Calcium 40 Mg Tablet 1 Tab PO DAILY 09/13/20 Reported Diltiazem 24Hr Cd (Diltiazem HCl) 240 Mg Cap.er.24h 1 Cap PO DAILY 09/13/20 Reported Nystop (Nystatin) 60 Gm Powder 1 Sudheer TP BID 09/13/20 Reported Humalog (Insulin Lispro) 100 Unit/1 Ml Insuln.pen 0 Units SQ TIDWMEALS 08/06/18 Rx Duoneb 0.5-3(2.5) Mg/3 Ml (Albuterol/Ipratropium) 3 Ml Ampul.neb 3 Ml NEB RTQID 08/06/18 Rx Aspirin 325 Mg Tablet 325 Mg PO DAILYWBKFT 30 07/22/17 Rx Metoprolol Tartrate 25 Mg Tablet 25 Mg PO BID 30 07/22/17 Rx Montelukast Sodium Tablet (Montelukast Sodium) 10 Mg Tablet 10 Mg PO QHS 07/22/17 Rx Gabapentin 600 Mg Tablet 600 Mg PO BID 30 07/22/17 Rx Pepcid (Famotidine) 20 Mg Tablet 20 Mg PO BID 05/17/13 Reported Impression . 1. Acute on chronic respiratory failure secondary to multifactorial etiologies including hypoglycemic encephalopathy. No evidence of new stroke. 2. Possible sepsis--- on antibiotics 3. Hypoglycemia./ encephalopathy 4. The patient with prior history of cerebrovascular accident with left-sided weakness. 5. Underlying chronic obstructive pulmonary disease. 6. Morbid obesity. 7. Peripheral vascular disease. 8. Abnormal CT chest with bibasilar atelectasis. No significant mucus plugging. Tiny pleural effusion seen. Plan . Updated 10/18 Nephrostomy tube today Spoke with Dr. Bobo Continue pressure support as tolerated updated 10/17 Continue pressure support during the day The a.m. for gastrostomy tube Discussed with RN updated 10/16 Continue pressure support during the day Continues current support Long-term prognosis poor updated 10/15 Discussed with RN continue pressure support during the day Blood sugars per PCP We will discuss with social work from the possibility of transferring to LT[facility] updated 10/14 Discussed with RT, continue pressure support Yesterday blood sugar dropped, given D10 Discussed with RN Nutritional support Cardiology following Long-term prognosis is poor Transfer to LTAC if possible HELENA MACHADO MD Oct 18, 2020 09:33
--- NOTE | 2020-10-18 09:53 | PDOC ---
[facility] PROGRESS NOTE Date of Service DOS: DATE: 10/18/20 TIME: 09:43 Chief Complaint Chief Complaint CC: Acute anemia Acute metabolic, infectious encephalopathy Acute respiratory failure Healthcare associated pneumonia Acute hypoglycemia Hypokalemia Elevated troponins Severe protein malnutrition Morbid obesity AAA, 4 cm, infrarenal History of diabetes mellitus type 2 History of dyslipidemia history of hypertension History of recent STEMI History of CAD History of peripheral artery disease History of JEANNE History of CVA History of paroxysmal atrial fibrillation Ischemic cardiomyopathy History of Present Illness History of Present Illness Mr Andrews is a 70-year-old male with a recent prolonged hospitalization for STEMI and respiratory failure for which she was treated with arterial thrombolysis for a right leg popliteal artery aneurysm and also had left heart cath with placement of a stent in the LAD and RCA comes in today after [facility]. Apparently according to the nursing facility patient was in his usual state of health and he was conversational but then became altered. His blood glucose was found to be in the 30s. Glucose tabs and glucagon was given in route and his GCS reported at 6. Upon arrival patient's mental status did not improve and he was eventually intubated for airway protection. Of note EMS was bagging the patient through the nasal access. In the ED, patient was placed on a vent and pulmonology was consulted. Patient was also taken to the CT scanner for sanders scanning. Patient was started to wake up on the vent and sedation was ordered. 09/23: Patient examined at bedside. Intubated. Not on any sedation but unresponsive. Neurology consult in place. 09/24: Patient seen and examined at bedside. Remains intubated he is off sedation but still remains unresponsive. Planning for MRI brain in the morning. Further plan to be determined by MRI. 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 09/25: Afebrile, currently breathing on ventilator with FiO2 50%, PEEP 5. Had CODE BLUE in ICU this morning; received 2 rounds of CPR, epinephrine, and atropine with ROSC. MRI brain negative. Made DNR, and after discussion with Dr. Rubalcava he agrees. 09/26:: Afebrile. Still on vent, with FiO2 45%, PEEP 5. After discussion with Dr. Rubalcava yesterday, patient was made DNR. In the ED is likely a poor candidate for weaning trials may need trach in near future if no significant improvement. 09/27:: Afebrile. On vent with FiO2 40%, PEEP 5. Potassium 2.8 today, will replace. Warfarin has been resumed. Discussed with pharmacy, will resume aspirin and Plavix. May need tracheostomy by the end of the week if no improvement in mental status. 09/28:: Afebrile. On ventilator with FiO2 40%, PEEP 5. Warfarin has been re sumed; INR 1.3 today. Some morning labs still pending; hemoglobin yesterday 7.3, will continue to monitor. Continue IV cefepime and supportive care. 09/29: Afebrile. Breathing on vent with FiO2 40%, PEEP 5. INR 1.2 today; pharmacy to help with warfarin dosing. White count within normal range, renal function stable. Spoke with pharmacy about cefepime 1 g every 8 hours dosing; this has been changed to cefepime 2 g every 8 hours. 09/30: Afebrile. Currently breathing on vent with FiO2 40%, PEEP 5. Continue antibiotics, cefepime 2 g every 8 hours. INR 1.4; continue warfarin dosing per pharmacy. Possible tracheostomy at some point. Critical care time 30 minutes reviewing charts, labs, examination, discussion with RN. 10/01: T-max 100.3 F. On ventilator with FiO2 40%, PEEP 5. Continue antibiotics, cefepime 2 g every 8 hours. INR 1.4, still subtherapeutic; continue warfarin dosing per pharmacy. Possible tracheostomy at some point. 10/02: No acute events overnight. Patient saturating 99% on vent settings of 10/450/40/5. Patient will likely need a trach and PEG at some point. We will hold warfarin and start 2 units PRBC transfusion. Patient's chart, labs, images were reviewed and discussed with RN 10/03: No acute events overnight. Patient sat 100% on minimal vent settings. No sedation at this point and patient is opening his eyes spontaneously. Not much response or spontaneous movements. Surgery has been consulted for tracheostomy. Patient will also likely need a PEG tube. 10/04: No acute events overnight. Patient saturating 90% on minimal vent settings. T-max 100.4 overnight. Plan for trach tomorrow with surgery. Patient's chart, labs, images were reviewed and discussed with RN 10/05: No acute events overnight. Patient saturating 99% on minimal vent settings. Plan for tracheostomy today. Consent is provided by authorization by 2 physicians due to patient having no close relatives or DPOA. Will resume heparin and warfarin bridging tomorrow after tracheostomy 10/07: No acute events overnight. Patient seen and examined bedside. On trach vent. Saturating 99%. Pending GI evaluation for possible PEG placement after discussing with cardiology whether to continue with Plavix. Possibly place PEG if patient is only on aspirin and stopping argatroban. 10/08: No acute events overnight. Patient continues to be on trach mechanical vent. Saturating 100%. Pending decision from GI whether to proceed with PEG placement depending on the type of anticoagulation patient will be on. 10/09: No overnight events. On trach with vent support 40% FiO2 PEEP of 5. Currently argatroban and propofol for minimal sedation. When sedation is weaned he has no meaningful movements but has pulled at his tracheostomy site. Unable to hold plavix due to recently placed stents. 10/10: Afebrile today. On trach with vent support 40% FiO2 PEEP of 5. Continue argatroban and changed to Aggrastat in anticipation of surgical consultation for potential laparoscopic PEG placement. INR 1.6. Hb greater than 9 no significant neurologic recovery today. 10/11: Afebrile. On trach with vent support 40% FiO2 PEEP of 5. INR 1.8. Not making meaningful eye contact. Labs otherwise stable. 10/12: Afebrile. Trach with vent support 40% FiO2 PEEP five O2 saturations 92%. INR 1.8, mag 1.8, Hb 8.4. Not following commands. Tentative plans for surgical PEG next week. 10/13: Afebrile. Trach with vent support 40% FiO2 PEEP 5. Eyes open, not tracking or following commands. Holding Plavix. On argatroban. 10/14: Afebrile. Trach with vent support 40% FiO2 PEEP of 5. Will open eyes intermittently not necessarily to voice. Good urine output. Labs stable. 10/15: Afebrile overnight. Trach with vent AC 40% fio2 PEEP 5. Had a very large bowel movement. Still not tracking. Hb 9, INR 1.7, glucose 144. Tentative plan for PEG 10/18/2020 CC time 30 minutes 10/16/20: Patient seen and examined in the ICU. He was resting and still on vent via trach. Has NG running via Dobhoff, feeding at 40cc/hr. AC/10/450/40% plus 5 PEEP. Discussed with RN. Chart reviewed. 10/17/20: Patient was seen and examined in the ICU today. Still on vent via trach at AC/10/450/40 plus 5 PEEP. While examined, patient was at 100% O2 saturation. Has SCDs on for DVT prophylaxis. Stauffer catheter in place. On IV argatroban. R subclavian triple lumen in place. Dobhoff running at 40cc/hr. Discussed with RN. Chart reviewed. 10/18/20: Patient seen and examined in ICU. His eyes are open. On vent via trach with settings that were recently changed to spontaneous respirations with FiO2 of 40 and 5 PEEP. Trach is clean and dry. Currently, oxygen saturation is at 100%. Stauffer to bedside and rectal bag in place. Discussed with RN. Chart rev iewed. Vitals/I&O Vitals/I&O: Vital Signs Date Time Temp Pulse Resp B/P (MAP) Pulse Ox O2 Delivery O2 Flow Rate FiO2 10/18/20 08:25 100 Ventilator 10/18/20 08:00 98.5 84 18 115/68 (84) 98.5 I & O 10/17/20 10/17/20 10/18/20 15:00 23:00 07:00 Intake Total 400 ml 1072 ml 1028 ml Output Total 675 ml 1020 ml 390 ml Balance -275 ml 52 ml 638 ml Physical Exam General: No acute distress Heart: Regular rate (SR), Other (distatne heart sounds) Lungs: Other (Tracheostomy) Abdomen: Soft Extremities: No cyanosis, Other (2-3+ bilateral LE pitting edema) Skin: No rashes, No significant lesion Labs Labs: Laboratory Tests Test 10/17/20 11:21 10/17/20 12:48 10/17/20 17:47 10/18/20 00:42 Glucose (Fingerstick) 123 mg/dL (70-99) 137 mg/dL (70-99) 166 mg/dL (70-99) 154 mg/dL (70-99) Test 10/18/20 05:50 10/18/20 05:57 Activated Partial Thromboplast Time 69 SEC (24-38) Glucose (Fingerstick) 137 mg/dL (70-99) Review of Systems Review of Systems: GI: no nausea. no vomiting. Eyes: no changes in vision. no blurry vision. Assessment and Plan Assessmemt and Plan Problems Medical Problems: (1) NSTEMI (non-ST elevated myocardial infarction) Status: Acute (2) Obtundation Status: Acute (3) Respiratory arrest Status: Acute Acute anemia Acute metabolic, infectious encephalopathy Acute respiratory failure Healthcare associated pneumonia Acute hypoglycemia Hypokalemia Elevated troponins Severe protein malnutrition Morbid obesity AAA, 4 cm, infrarenal History of diabetes mellitus type 2 History of dyslipidemia history of hypertension History of recent STEMI History of CAD History of peripheral artery disease History of JEANNE History of CVA History of paroxysmal atrial fibrillation Ischemic cardiomyopathy Plan: 1. Surgery this morning to get PEG tube placed 2. ICU monitoring 3. Vent weaning (already on spontaneous respirations currently) 4. Continue IV anticoagulation (Argatroban) 5. Continue Stauffer to bedside 6. Monitor rectal bag 7. Trend labs 8. Trend chest x-rays 9. Prognosis guarded 10. Appreciate subspecialist input CC time 32 minutes Comment Review of Relevant I have reviewed the following items denise (where applicable) has been applied. Medications: Current Medications Medications (Trade) Dose Ordered Sig/Dru Route PRN Reason Start Time Stop Time Status Last Admin Dose Admin Ringer's Solution 1,000 ml @ 30 mls/hr Q24H IV 10/18/20 06:00 10/18/20 17:59 10/18/20 06:00 Justifications for Admission Other Justification Hypoglycemia and altered mental status. MANNY THOMASON III DO Oct 18, 2020 09:52
[2020-10-18] MEDS ORDERED: BUPIVACAINE-EPI 0.5% 30 ML VIAL KIT. ONE (10:23)
[2020-10-18] MEDS ORDERED: ROCURONIUM 50 MG/5 ML VIAL. ONE (10:48)
[2020-10-18] MEDS ORDERED: SEVOFLURANE 61 TO 120 MINUTES. IH ONE (11:13)
[2020-10-18] MEDS ORDERED: fentaNYL PF VIAL 100 MCG/2 ML VIAL ONE (11:14)
[2020-10-18] MEDS ORDERED: PHENYLEPHRINE in 0.9% NACL PF 1 MG/10 ML SYRINGE. IV ONE (11:55)
--- NOTE | 2020-10-18 12:02 | NUR ---
1045 Pt to OR with the OR staff and anesthesia 1140 Pt returned from the OR. Pt placed back on vent, VSS, received report from MANA[employer].
--- NOTE | 2020-10-18 13:11 | PDOC ---
BENNY JOE COLLEGE DIRECTOR 10/18/20 1311: CARDIO Progress Notes Date and Time Date of Service 10/18/2020 Time of Evaluation 1230 Subjective Subjective: Other (nonverbal) Vitals Vitals Vital Signs Date Time Temp Pulse Resp B/P (MAP) Pulse Ox O2 Delivery O2 Flow Rate FiO2 10/18/20 12:01 75 12 126/74 (91) 100 Ventilator 10/18/20 11:52 97.8 97.8 Weight Weight [ ] Input and Output Intake and Output Intake and Output 10/18/20 07:00 Intake Total 2500 ml Output Total 2085 ml Balance 415 ml IV Total 83 ml Tube Feeding 1657 ml Other 760 ml Output Urine Total 2085 ml Laboratory Labs Laboratory Tests Test 10/17/20 17:47 10/18/20 00:42 10/18/20 05:50 10/18/20 05:57 Glucose (Fingerstick) 166 mg/dL (70-99) 154 mg/dL (70-99) 137 mg/dL (70-99) Activated Partial Thromboplast Time 69 SEC (24-38) Test 10/18/20 11:58 Glucose (Fingerstick) 116 mg/dL (70-99) Physical Exam HEENT: Neck Supple W Full Motion Chest: Symmetric LUNGS: Other (trach with vent) Heart: RRR (SR) Abdomen: Other (obese ) Extremities: Other (trace bilateral LE edema ) Neurology: other (opens eyes, does not track ) Assessment Assessment 1. Acute on chronic respiratory failure with associated severe hypoglycemia and encephalopathy and COPD, CHF; s/p tracheostomy. mechanical vent. Pulmonary team following. 2. Metabolic encephalopathy with associated hypoglycemia. MRI revealed no new stroke 3. Acute on chronic diastolic/systolic CHF: better compensated 4. CAD/STEMI: S/P complex PCI/stents to RCA/LAD 08/16/2020. C 08/31 with ISR to RCA, S/P PCI, clinically stable 5. ICM: EF at 25%, clinically well compensated. 6. PAD: S/P thrombolysis to right popliteal artery with large aneurysm. Needing future repair per vascular. 7. 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 PAFIB: maintaining SR. 10. Anemia: post transfusion. 11. Hx of CVA 12. Dysphagia; S/P PEG placement today Recommendations Secondary prevention Start plavix tomorrow. Start argatroban tomorrow and coumadin. INR in am Lasix therapy Amiodarone for rhythm maintenance. Supportive care Justicifation of Admission Dx: Justifications for Admission: Justification of Admission Dx: Yes CHF: Cardiac Arrhythmias EMELIA GRAY MD 10/18/20 1724: CARDIO Progress Notes Plan Plan The patient was seen and interviewed as well as examined at the bedside. The chart was reviewed. The case was discussed. Agree with the plan of care. BENNY JOE APRN Oct 18, 2020 13:11 EMELIA GRAY MD Oct 18, 2020 17:24
[2020-10-18] MEDS: PANTOPRAZOLE IV PUSH 40 MG VIAL. IVP SCH (15:02)
[2020-10-18] MEDS: FUROSEMIDE 40 MG/4 ML VIAL. IVP SCH (15:09)
--- NOTE | 2020-10-18 19:33 | PDOC4 ---
OPERATIVE NOTE Date: Date: Oct 18, 2020 Pre-Op Diagnosis: Respiratory failure Post-Op Diagnosis: same Procedure Performed: laparoscopic gastrostomy tube placement (specifically 24 F) Surgeon: John Bro Anesthesia Type: GETA plus local Blood Loss: 50 Specimans Obtained: none Findings: morbid obesity, normal anatomy Complications: none Operative Note: Patient taken to OR, induced under GETA and prepped in the usual fashion. 5 mm port placed umbilical and 12 port placed LUQ, all under laparoscopic guidance. Stomach grasped and brought out LUQ port site. Gastrostomy tube placed into stomach under direct vision. 3 0 vicryl pursestring placed around and multiple 3 0 vicryl used to secure to fascia. Balloon inflated and brought to abdominal wall. Laparoscopic demonstrates proper position. Ports removed without bleeding. Skin repaired with 4 0 monocryl. G-tube tacked in place 3 0 nylon. Dressing placed. Patient tolerated procedure well and sent to PACU in stable condition. All counts correct. Wound class is 3. SCAR BRO MD Oct 18, 2020 19:33
[2020-10-18] MEDS: ATORVASTATIN CALCIUM 40 MG TABLET. PO SCH (21:00)
[2020-10-19] VITALS (13 sets, daily range): BP systolic 107–152; BP diastolic 62–83
[2020-10-19 05:21] LABS: BASO # 0.1 x10^3/uL (0.0-0.2); BASO % 1 % (0-3); EOS # 0.4 x10^3/uL (0.0-0.7); EOS % 6 % (0-3); HEMATOCRIT 28.4 % (39.0-53.0); HEMOGLOBIN 9.8 g/dL (13.0-17.5); LYMPH # 2.2 x10^3/uL (1.0-4.8); LYMPH % 33 % (24-48); MEAN CORPUSCULAR HEMOGLOBIN 32 pg (25-35); MEAN CORPUSCULAR HGB CONC 34 g/dL (31-37); MEAN CORPUSCULAR VOLUME 94 fL (79-100); MONO # 0.5 x10^3/uL (0.0-1.1); MONO % 8 % (0-9); NEUT # 3.5 x10^3/uL (1.8-7.7); NEUT % 52 % (31-73); PLATELET COUNT 238 x10^3/uL (140-400); RED BLOOD COUNT 3.02 x10^6/uL (4.30-5.70); RED CELL DISTRIBUTION WIDTH 16.7 % (11.5-14.5); WHITE BLOOD COUNT 6.6 x10^3/uL (4.0-11.0)
[2020-10-19 05:29] LABS: PROTHROMBIN TIME PATIENT 15.3 SEC (11.7-14.0)
[2020-10-19 05:45] LABS: CALCIUM 9.2 mg/dL (8.5-10.1); CREATININE 0.7 mg/dL (0.7-1.3); GFR 110.9; POTASSIUM 4.1 mmol/L (3.5-5.1)
[2020-10-19] MEDS: INSULIN LISPRO 300 UNITS/3 ML VIAL. SQ SCH ×5 (05:51→23:40)
[2020-10-19] MEDS: CEFEPIME HCL IV Push 2 GM VIAL. IVP SCH ×3 (05:59→22:11)
[2020-10-19] MEDS: ASPIRIN CHEWABLE 81 MG TABLET. PO SCH (08:00)
[2020-10-19 08:39] LABS: BASE EXCESS ABG 6 mmol/L (-3-3); HCO3 ABG 29 mmol/L (21-28); PCO2 ABG 40 mmHg (35-46); PO2 ABG 121 mmHg (65-108); SAT O2 ABG 98 % (92-99)
[2020-10-19 08:40] LABS: FIO2 ABG 40% VENT
[2020-10-19] MEDS: PANTOPRAZOLE IV PUSH 40 MG VIAL. IVP SCH (08:53)
[2020-10-19] MEDS: FUROSEMIDE 40 MG/4 ML VIAL. IVP SCH (08:53)
[2020-10-19] MEDS: AMIODARONE HCL 200 MG TABLET. PO SCH (09:00)
[2020-10-19] MEDS: POTASSIUM BICARB 20 MEQ EFFERVESCENT TABLET. PEG SCH (09:00)
[2020-10-19] MEDS: METOPROLOL TART IMMED RELEASE 25 MG TABLET. PO SCH ×2 (09:00→22:11)
--- NOTE | 2020-10-19 09:34 | PDOC ---
PULMONARY PROGRESS NOTES DATE: 10/19/20 TIME: 09:34 Subjective Patient currently on AVAPS No overnight events Vitals Vital Signs Date Time Temp Pulse Resp B/P (MAP) Pulse Ox O2 Delivery O2 Flow Rate FiO2 10/19/20 08:49 100 Ventilator 10/19/20 08:00 98.8 81 16 130/73 (92) 98.8 General: No acute distress HEENT: Other (nc at perrl nose clear orally intubated neck no lad no thyromegaly) Lungs: Other (Tracheostomy) Cardiovascular: S1, S2 Abdomen: Soft, Non-tender, Other (Obese) Extremities: Other (1+ edema) Skin: Warm Labs Laboratory Tests Test 10/17/20 11:21 10/17/20 12:48 10/17/20 17:47 10/18/20 00:42 Glucose (Fingerstick) 123 mg/dL (70-99) 137 mg/dL (70-99) 166 mg/dL (70-99) 154 mg/dL (70-99) Test 10/18/20 05:50 10/18/20 05:57 10/18/20 11:58 10/18/20 17:37 Activated Partial Thromboplast Time 69 SEC (24-38) Glucose (Fingerstick) 137 mg/dL (70-99) 116 mg/dL (70-99) 131 mg/dL (70-99) Test 10/18/20 23:57 10/19/20 05:00 10/19/20 08:34 Glucose (Fingerstick) 121 mg/dL (70-99) White Blood Count 6.6 x10^3/uL (4.0-11.0) Red Blood Count 3.02 x10^6/uL (4.30-5.70) Hemoglobin 9.8 g/dL (13.0-17.5) Hematocrit 28.4 % (39.0-53.0) Mean Corpuscular Volume 94 fL (79-100) Mean Corpuscular Hemoglobin 32 pg (25-35) Mean Corpuscular Hemoglobin Concent 34 g/dL (31-37) Red Cell Distribution Width 16.7 % (11.5-14.5) Platelet Count 238 x10^3/uL (140-400) Neutrophils (%) (Auto) 52 % (31-73) Lymphocytes (%) (Auto) 33 % (24-48) Monocytes (%) (Auto) 8 % (0-9) Eosinophils (%) (Auto) 6 % (0-3) Basophils (%) (Auto) 1 % (0-3) Neutrophils # (Auto) 3.5 x10^3/uL (1.8-7.7) Lymphocytes # (Auto) 2.2 x10^3/uL (1.0-4.8) Monocytes # (Auto) 0.5 x10^3/uL (0.0-1.1) Eosinophils # (Auto) 0.4 x10^3/uL (0.0-0.7) Basophils # (Auto) 0.1 x10^3/uL (0.0-0.2) Prothrombin Time 15.3 SEC (11.7-14.0) Prothromb Time International Ratio 1.2 (0.8-1.1) Sodium Level 139 mmol/L (136-145) Potassium Level 4.1 mmol/L (3.5-5.1) Chloride Level 101 mmol/L (98-107) Carbon Dioxide Level 31 mmol/L (21-32) Anion Gap 7 (6-14) Blood Urea Nitrogen 23 mg/dL (8-26) Creatinine 0.7 mg/dL (0.7-1.3) Estimated GFR (Cockcroft-Gault) 110.9 Glucose Level 102 mg/dL (70-99) Calcium Level 9.2 mg/dL (8.5-10.1) O2 Saturation 98 % (92-99) Arterial Blood pH 7.48 (7.35-7.45) Arterial Blood pCO2 at Patient Temp 40 mmHg (35-46) Arterial Blood pO2 at Patient Temp 121 mmHg (65-108) Arterial Blood HCO3 29 mmol/L (21-28) Arterial Blood Base Excess 6 mmol/L (-3-3) FiO2 40% vent Laboratory Tests Test 10/18/20 11:58 10/18/20 17:37 10/18/20 23:57 10/19/20 05:00 Glucose (Fingerstick) 116 mg/dL (70-99) 131 mg/dL (70-99) 121 mg/dL (70-99) White Blood Count 6.6 x10^3/uL (4.0-11.0) Red Blood Count 3.02 x10^6/uL (4.30-5.70) Hemoglobin 9.8 g/dL (13.0-17.5) Hematocrit 28.4 % (39.0-53.0) Mean Corpuscular Volume 94 fL (79-100) Mean Corpuscular Hemoglobin 32 pg (25-35) Mean Corpuscular Hemoglobin Concent 34 g/dL (31-37) Red Cell Distribution Width 16.7 % (11.5-14.5) Platelet Count 238 x10^3/uL (140-400) Neutrophils (%) (Auto) 52 % (31-73) Lymphocytes (%) (Auto) 33 % (24-48) Monocytes (%) (Auto) 8 % (0-9) Eosinophils (%) (Auto) 6 % (0-3) Basophils (%) (Auto) 1 % (0-3) Neutrophils # (Auto) 3.5 x10^3/uL (1.8-7.7) Lymphocytes # (Auto) 2.2 x10^3/uL (1.0-4.8) Monocytes # (Auto) 0.5 x10^3/uL (0.0-1.1) Eosinophils # (Auto) 0.4 x10^3/uL (0.0-0.7) Basophils # (Auto) 0.1 x10^3/uL (0.0-0.2) Prothrombin Time 15.3 SEC (11.7-14.0) Prothromb Time International Ratio 1.2 (0.8-1.1) Sodium Level 139 mmol/L (136-145) Potassium Level 4.1 mmol/L (3.5-5.1) Chloride Level 101 mmol/L (98-107) Carbon Dioxide Level 31 mmol/L (21-32) Anion Gap 7 (6-14) Blood Urea Nitrogen 23 mg/dL (8-26) Creatinine 0.7 mg/dL (0.7-1.3) Estimated GFR (Cockcroft-Gault) 110.9 Glucose Level 102 mg/dL (70-99) Calcium Level 9.2 mg/dL (8.5-10.1) Test 10/19/20 08:34 O2 Saturation 98 % (92-99) Arterial Blood pH 7.48 (7.35-7.45) Arterial Blood pCO2 at Patient Temp 40 mmHg (35-46) Arterial Blood pO2 at Patient Temp 121 mmHg (65-108) Arterial Blood HCO3 29 mmol/L (21-28) Arterial Blood Base Excess 6 mmol/L (-3-3) FiO2 40% vent Medications Active Scripts Medications Dose Route/Sig Max Daily Dose Days Date Category Amiodarone Hcl 200 Mg Tablet 400 Mg PO DAILY 09/18/20 Rx [Warfarin Per Pharmacy] 1 EACH Each 1 Each MC PRN DAILY PRN 09/18/20 Rx Clopidogrel (Clopidogrel Bisulfate) 75 Mg Tablet 75 Mg PO DAILYWBK09/18/20 Rx Glimepiride 4 Mg Tablet 1 Tab PO DAILY 09/13/20 Reported Furosemide 40 Mg Tablet 1 Tab PO BID 09/13/20 Reported Symbicort 160-4.5 Mcg Inhaler (Budesonide/Formoterol Fumarate) 10.2 Gm Hfa.aer.ad 1 Puff INH DAILY 09/13/20 Reported Losartan-Hctz 100-12.5 Mg Tab (Losartan/Hydrochlorothiazide) 1 Each Tablet 1 Tab PO DAILY 09/13/20 Reported Nitrofurantoin Gillespie-Mcr 100 Mg (Nitrofurantoin Monohyd/M-Cryst) 100 Mg Capsule 1 Cap PO BID 09/13/20 Reported Betamethasone Valerate 60 Ml Lotion 1 TP QHS 09/13/20 Reported Atorvastatin Calcium 40 Mg Tablet 1 Tab PO DAILY 09/13/20 Reported Diltiazem 24Hr Cd (Diltiazem HCl) 240 Mg Cap.er.24h 1 Cap PO DAILY 09/13/20 Reported Nystop (Nystatin) 60 Gm Powder 1 Sudheer TP BID 09/13/20 Reported Humalog (Insulin Lispro) 100 Unit/1 Ml Insuln.pen 0 Units SQ TIDWMEALS 08/06/18 Rx Duoneb 0.5-3(2.5) Mg/3 Ml (Albuterol/Ipratropium) 3 Ml Ampul.neb 3 Ml NEB RTQID 08/06/18 Rx Aspirin 325 Mg Tablet 325 Mg PO DAILYWBKFT 07/22/17 Rx Metoprolol Tartrate 25 Mg Tablet 25 Mg PO BID 30 07/22/17 Rx Montelukast Sodium Tablet (Montelukast Sodium) 10 Mg Tablet 10 Mg PO QHS 07/22/17 Rx Gabapentin 600 Mg Tablet 600 Mg PO BID 30 07/22/17 Rx Pepcid (Famotidine) 20 Mg Tablet 20 Mg PO BID 05/17/13 Reported Impression . 1. Acute on chronic respiratory failure secondary to multifactorial etiologies including hypoglycemic encephalopathy. No evidence of new stroke. 2. Possible sepsis--- on antibiotics 3. Hypoglycemia./ encephalopathy 4. The patient with prior history of cerebrovascular accident with left-sided weakness. 5. Underlying chronic obstructive pulmonary disease. 6. Morbid obesity. 7. Peripheral vascular disease. 8. Abnormal CT chest with bibasilar atelectasis. No significant mucus plugging. Tiny pleural effusion seen. 10/18 Procedure Performed: laparoscopic gastrostomy tube placement (specifically 24 F) Plan . Updated 10 19 Status post gastrostomy tube Continue AVAPS Long-term prognosis poor Discussed with social service, discharge planning in place updated 10/18 Nephrostomy tube today Spoke with Dr. Bobo Continue pressure support as tolerated updated 10/17 Continue pressure support during the day The a.m. for gastrostomy tube Discussed with RN updated 10/16 Continue pressure support during the day Continues current support Long-term prognosis poor HELENA MACHADO MD Oct 19, 2020 09:34
--- NOTE | 2020-10-19 10:03 | PDOC ---
BENNY JOE CORRECTIONAL MANAGER 10/19/20 1003: CARDIO Progress Notes Date and Time Date of Service 10/19/2020 Time of Evaluation 0945 Subjective Subjective: Other (nonverbal) Vitals Vitals Vital Signs Date Time Temp Pulse Resp B/P (MAP) Pulse Ox O2 Delivery O2 Flow Rate FiO2 10/19/20 08:49 100 Ventilator 10/19/20 08:00 98.8 81 16 130/73 (92) 98.8 Weight Weight [ ] Input and Output Intake and Output Intake and Output 10/19/20 07:00 Intake Total 0 ml Output Total 2225 ml Balance -2225 ml Tube Feeding 0 ml Output Urine Total 2225 ml Laboratory Labs Laboratory Tests Test 10/18/20 11:58 10/18/20 17:37 10/18/20 23:57 10/19/20 05:00 Glucose (Fingerstick) 116 mg/dL (70-99) 131 mg/dL (70-99) 121 mg/dL (70-99) White Blood Count 6.6 x10^3/uL (4.0-11.0) Red Blood Count 3.02 x10^6/uL (4.30-5.70) Hemoglobin 9.8 g/dL (13.0-17.5) Hematocrit 28.4 % (39.0-53.0) Mean Corpuscular Volume 94 fL (79-100) Mean Corpuscular Hemoglobin 32 pg (25-35) Mean Corpuscular Hemoglobin Concent 34 g/dL (31-37) Red Cell Distribution Width 16.7 % (11.5-14.5) Platelet Count 238 x10^3/uL (140-400) Neutrophils (%) (Auto) 52 % (31-73) Lymphocytes (%) (Auto) 33 % (24-48) Monocytes (%) (Auto) 8 % (0-9) Eosinophils (%) (Auto) 6 % (0-3) Basophils (%) (Auto) 1 % (0-3) Neutrophils # (Auto) 3.5 x10^3/uL (1.8-7.7) Lymphocytes # (Auto) 2.2 x10^3/uL (1.0-4.8) Monocytes # (Auto) 0.5 x10^3/uL (0.0-1.1) Eosinophils # (Auto) 0.4 x10^3/uL (0.0-0.7) Basophils # (Auto) 0.1 x10^3/uL (0.0-0.2) Prothrombin Time 15.3 SEC (11.7-14.0) Prothromb Time International Ratio 1.2 (0.8-1.1) Sodium Level 139 mmol/L (136-145) Potassium Level 4.1 mmol/L (3.5-5.1) Chloride Level 101 mmol/L (98-107) Carbon Dioxide Level 31 mmol/L (21-32) Anion Gap 7 (6-14) Blood Urea Nitrogen 23 mg/dL (8-26) Creatinine 0.7 mg/dL (0.7-1.3) Estimated GFR (Cockcroft-Gault) 110.9 Glucose Level 102 mg/dL (70-99) Calcium Level 9.2 mg/dL (8.5-10.1) Test 10/19/20 08:34 O2 Saturation 98 % (92-99) Arterial Blood pH 7.48 (7.35-7.45) Arterial Blood pCO2 at Patient Temp 40 mmHg (35-46) Arterial Blood pO2 at Patient Temp 121 mmHg (65-108) Arterial Blood HCO3 29 mmol/L (21-28) Arterial Blood Base Excess 6 mmol/L (-3-3) FiO2 40% vent Physical Exam HEENT: Neck Supple W Full Motion Chest: Symmetric LUNGS: Other (trach with vent) Heart: RRR (SR) Abdomen: Other (obes; PEG) Extremities: Other (trace bilateral LE edema ) Neurology: other (opens eyes, does not track ) Assessment Assessment 1. Acute on chronic respiratory failure with associated severe hypoglycemia and encephalopathy and COPD, CHF; s/p tracheostomy. mechanical vent. Pulmonary team following. 2. Metabolic encephalopathy with associated hypoglycemia. MRI revealed no new stroke 3. Acute on chronic diastolic/systolic CHF: better compensated 4. CAD/STEMI: S/P complex PCI/stents to RCA/LAD 08/16/2020. [facility] 08/31 with ISR to RCA, S/P PCI, clinically stable 5. ICM: EF at 25%, clinically well compensated. 6. PAD: S/P thrombolysis to right popliteal artery with large aneurysm. Needing future repair per vascular. 7. 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 PAFIB: maintaining SR. 10. Anemia: post transfusion. 11. Hx of CVA 12. Dysphagia; S/P PEG placement yesterday Recommendations Secondary prevention Start plavix today and Start argatroban and coumadin today, await clearance from . INR goal at 2-3 Lasix therapy Amiodarone for rhythm maintenance. Supportive care Justicifation of Admission Dx: Justifications for Admission: Justification of Admission Dx: Yes CHF: Cardiac Arrhythmias EMELIA GRAY MD 10/19/20 1608: CARDIO Progress Notes Plan Plan The patient was seen and interviewed as well as examined at the bedside. The chart was reviewed. The case was discussed. Agree with the plan of care. BENNY JOE APRN Oct 19, 2020 10:03 EMELIA GRAY MD Oct 19, 2020 16:08
[2020-10-19] MEDS ORDERED: ARGATROBAN PER PHARMACY. MC PRN (10:30)
--- NOTE | 2020-10-19 11:18 | PDOC ---
[facility] PROGRESS NOTE Date of Service DOS: DATE: 10/19/20 TIME: 11:10 Chief Complaint Chief Complaint CC: Acute anemia Acute metabolic, infectious encephalopathy Acute respiratory failure Healthcare associated pneumonia Acute hypoglycemia Hypokalemia Elevated troponins Severe protein malnutrition Morbid obesity AAA, 4 cm, infrarenal History of diabetes mellitus type 2 History of dyslipidemia history of hypertension History of recent STEMI History of CAD History of peripheral artery disease History of JEANNE History of CVA History of paroxysmal atrial fibrillation Ischemic cardiomyopathy History of Present Illness History of Present Illness Mr Andrews is a 70-year-old male with a recent prolonged hospitalization for STEMI and respiratory failure for which she was treated with arterial thrombolysis for a right leg popliteal artery aneurysm and also had left heart cath with placement of a stent in the LAD and RCA comes in today after he was found obtunded at his [facility] facility. Apparently according to the nursing facility patient was in his usual state of health and he was conversational but then became altered. His blood glucose was found to be in the 30s. Glucose tabs and glucagon was given in route and his GCS reported at 6. Upon arrival patient's mental status did not improve and he was eventually intubated for airway protection. Of note EMS was bagging the patient through the nasal access. In the ED, patient was placed on a vent and pulmonology was consulted. Patient was also taken to the CT scanner for sanders scanning. Patient was started to wake up on the vent and sedation was ordered. 09/23: Patient examined at bedside. Intubated. Not on any sedation but unresponsive. Neurology consult in place. 09/24: Patient seen and examined at bedside. Remains intubated he is off sedation but still remains unresponsive. Planning for MRI brain in the morning. Further plan to be determined by MRI. 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 09/25: Afebrile, currently breathing on ventilator with FiO2 50%, PEEP 5. Had CODE BLUE in ICU this morning; received 2 rounds of CPR, epinephrine, and atropine with ROSC. MRI brain negative. Made DNR, and after discussion with Dr. Rubalcava he agrees. 09/26:: Afebrile. Still on vent, with FiO2 45%, PEEP 5. After discussion with Dr. Rubalcava yesterday, patient was made DNR. In the ED is likely a poor candidate for weaning trials may need trach in near future if no significant improvement. 09/27:: Afebrile. On vent with FiO2 40%, PEEP 5. Potassium 2.8 today, will replace. Warfarin has been resumed. Discussed with pharmacy, will resume aspirin and Plavix. May need tracheostomy by the end of the week if no improvement in mental status. 09/28:: Afebrile. On ventilator with FiO2 40%, PEEP 5. Warfarin has been re sumed; INR 1.3 today. Some morning labs still pending; hemoglobin yesterday 7.3, will continue to monitor. Continue IV cefepime and supportive care. 09/29: Afebrile. Breathing on vent with FiO2 40%, PEEP 5. INR 1.2 today; pharmacy to help with warfarin dosing. White count within normal range, renal function stable. Spoke with pharmacy about cefepime 1 g every 8 hours dosing; this has been changed to cefepime 2 g every 8 hours. 09/30: Afebrile. Currently breathing on vent with FiO2 40%, PEEP 5. Continue antibiotics, cefepime 2 g every 8 hours. INR 1.4; continue warfarin dosing per pharmacy. Possible tracheostomy at some point. Critical care time 30 minutes reviewing charts, labs, examination, discussion with RN. 10/01: T-max 100.3 F. On ventilator with FiO2 40%, PEEP 5. Continue antibiotics, cefepime 2 g every 8 hours. INR 1.4, still subtherapeutic; continue warfarin dosing per pharmacy. Possible tracheostomy at some point. 10/02: No acute events overnight. Patient saturating 99% on vent settings of 10/450/40/5. Patient will likely need a trach and PEG at some point. We will hold warfarin and start 2 units PRBC transfusion. Patient's chart, labs, images were reviewed and discussed with RN 10/03: No acute events overnight. Patient sat 100% on minimal vent settings. No sedation at this point and patient is opening his eyes spontaneously. Not much response or spontaneous movements. Surgery has been consulted for tracheostomy. Patient will also likely need a PEG tube. 10/04: No acute events overnight. Patient saturating 90% on minimal vent settings. T-max 100.4 overnight. Plan for trach tomorrow with surgery. Patient's chart, labs, images were reviewed and discussed with RN 10/05: No acute events overnight. Patient saturating 99% on minimal vent settings. Plan for tracheostomy today. Consent is provided by authorization by 2 physicians due to patient having no close relatives or DPOA. Will resume heparin and warfarin bridging tomorrow after tracheostomy 10/07: No acute events overnight. Patient seen and examined bedside. On trach vent. Saturating 99%. Pending GI evaluation for possible PEG placement after discussing with cardiology whether to continue with Plavix. Possibly place PEG if patient is only on aspirin and stopping argatroban. 10/08: No acute events overnight. Patient continues to be on trach mechanical vent. Saturating 100%. Pending decision from GI whether to proceed with PEG placement depending on the type of anticoagulation patient will be on. 10/09: No overnight events. On trach with vent support 40% FiO2 PEEP of 5. Currently argatroban and propofol for minimal sedation. When sedation is weaned he has no meaningful movements but has pulled at his tracheostomy site. Unable to hold plavix due to recently placed stents. 10/10: Afebrile today. On trach with vent support 40% FiO2 PEEP of 5. Continue argatroban and changed to Aggrastat in anticipation of surgical consultation for potential laparoscopic PEG placement. INR 1.6. Hb greater than 9 no significant neurologic recovery today. 10/11: Afebrile. On trach with vent support 40% FiO2 PEEP of 5. INR 1.8. Not making meaningful eye contact. Labs otherwise stable. 10/12: Afebrile. Trach with vent support 40% FiO2 PEEP five O2 saturations 92%. INR 1.8, mag 1.8, Hb 8.4. Not following commands. Tentative plans for surgical PEG next week. 10/13: Afebrile. Trach with vent support 40% FiO2 PEEP 5. Eyes open, not tracking or following commands. Holding Plavix. On argatroban. 10/14: Afebrile. Trach with vent support 40% FiO2 PEEP of 5. Will open eyes intermittently not necessarily to voice. Good urine output. Labs stable. 10/15: Afebrile overnight. Trach with vent AC 40% fio2 PEEP 5. Had a very large bowel movement. Still not tracking. Hb 9, INR 1.7, glucose 144. Tentative plan for PEG 10/18/2020 CC time 30 minutes 10/16/20: Patient seen and examined in the ICU. He was resting and still on vent via trach. Has NG running via Dobhoff, feeding at 40cc/hr. AC/10/450/40% plus 5 PEEP. Discussed with RN. Chart reviewed. 10/17/20: Patient was seen and examined in the ICU today. Still on vent via trach at AC/10/450/40 plus 5 PEEP. While examined, patient was at 100% O2 saturation. Has SCDs on for DVT prophylaxis. Stauffer catheter in place. On IV argatroban. R subclavian triple lumen in place. Dobhoff running at 40cc/hr. Discussed with RN. Chart reviewed. 10/18/20: Patient seen and examined in ICU. His eyes are open. On vent via trach with settings that were recently changed to spontaneous respirations with FiO2 of 40 and 5 PEEP. Trach is clean and dry. Currently, oxygen saturation is at 100%. Stauffer to bedside and rectal bag in place. Discussed with RN. Chart rev iewed. 10/19/20: Patient was seen and examined in the ICU today. His eyes were open and he was resting. On BiPAP via trach AVAPS/10/450/40 plus 5 PEEP. Trach is clean and dry. Has SCDs for DVT prophylaxis. Patient has rectal bag, Stauffer to bedside, and NG tube in place. Discussed with RN. Chart reviewed. Vitals/I&O Vitals/I&O: Vital Signs Date Time Temp Pulse Resp B/P (MAP) Pulse Ox O2 Delivery O2 Flow Rate FiO2 10/19/20 10:26 100 Ventilator 10/19/20 10:22 88 12 145/75 (98) 10/19/20 08:00 98.8 98.8 I & O 10/18/20 10/18/20 10/19/20 14:59 22:59 06:59 Intake Total 0 ml Output Total 375 ml 1425 ml 425 ml Balance -375 ml -1425 ml -425 ml Physical Exam General: No acute distress Heart: Regular rate (SR), Other (distatne heart sounds) Lungs: Other (Tracheostomy) Abdomen: Soft Extremities: No cyanosis, Other (2-3+ bilateral LE pitting edema) Skin: No rashes, No significant lesion Labs Labs: Laboratory Tests Test 10/18/20 11:58 10/18/20 17:37 10/18/20 23:57 10/19/20 05:00 Glucose (Fingerstick) 116 mg/dL (70-99) 131 mg/dL (70-99) 121 mg/dL (70-99) White Blood Count 6.6 x10^3/uL (4.0-11.0) Red Blood Count 3.02 x10^6/uL (4.30-5.70) Hemoglobin 9.8 g/dL (13.0-17.5) Hematocrit 28.4 % (39.0-53.0) Mean Corpuscular Volume 94 fL (79-100) Mean Corpuscular Hemoglobin 32 pg (25-35) Mean Corpuscular Hemoglobin Concent 34 g/dL (31-37) Red Cell Distribution Width 16.7 % (11.5-14.5) Platelet Count 238 x10^3/uL (140-400) Neutrophils (%) (Auto) 52 % (31-73) Lymphocytes (%) (Auto) 33 % (24-48) Monocytes (%) (Auto) 8 % (0-9) Eosinophils (%) (Auto) 6 % (0-3) Basophils (%) (Auto) 1 % (0-3) Neutrophils # (Auto) 3.5 x10^3/uL (1.8-7.7) Lymphocytes # (Auto) 2.2 x10^3/uL (1.0-4.8) Monocytes # (Auto) 0.5 x10^3/uL (0.0-1.1) Eosinophils # (Auto) 0.4 x10^3/uL (0.0-0.7) Basophils # (Auto) 0.1 x10^3/uL (0.0-0.2) Prothrombin Time 15.3 SEC (11.7-14.0) Prothromb Time International Ratio 1.2 (0.8-1.1) Sodium Level 139 mmol/L (136-145) Potassium Level 4.1 mmol/L (3.5-5.1) Chloride Level 101 mmol/L (98-107) Carbon Dioxide Level 31 mmol/L (21-32) Anion Gap 7 (6-14) Blood Urea Nitrogen 23 mg/dL (8-26) Creatinine 0.7 mg/dL (0.7-1.3) Estimated GFR (Cockcroft-Gault) 110.9 Glucose Level 102 mg/dL (70-99) Calcium Level 9.2 mg/dL (8.5-10.1) Test 10/19/20 08:34 O2 Saturation 98 % (92-99) Arterial Blood pH 7.48 (7.35-7.45) Arterial Blood pCO2 at Patient Temp 40 mmHg (35-46) Arterial Blood pO2 at Patient Temp 121 mmHg (65-108) Arterial Blood HCO3 29 mmol/L (21-28) Arterial Blood Base Excess 6 mmol/L (-3-3) FiO2 40% vent Review of Systems Review of Systems: GI: no nausea. no vomiting. Eyes: no changes in vision. no blurry vision. Assessment and Plan Assessmemt and Plan Problems Medical Problems: (1) NSTEMI (non-ST elevated myocardial infarction) Status: Acute (2) Obtundation Status: Acute (3) Respiratory arrest Status: Acute Acute anemia Acute metabolic, infectious encephalopathy Acute respiratory failure Healthcare associated pneumonia Acute hypoglycemia Hypokalemia Elevated troponins Severe protein malnutrition Morbid obesity AAA, 4 cm, infrarenal History of diabetes mellitus type 2 History of dyslipidemia history of hypertension History of recent STEMI History of CAD History of peripheral artery disease History of JEANNE History of CVA History of paroxysmal atrial fibrillation Ischemic cardiomyopathy Plan: 1. ICU monitoring 2. Trying to titrate down O2 requirements 3. Continue IV anticoagulation (Argatroban) 4. Trend labs 5. Trend chest x-rays 6. Continue Stauffer to bedside 7. Monitor rectal bag 8. Appreciate subspecialist input 9. Prognosis guarded CC time 31 minutes Comment Review of Relevant I have reviewed the following items denise (where applicable) has been applied. Justifications for Admission Other Justification Hypoglycemia and altered mental status. MANNY THOMASON III DO Oct 19, 2020 11:18
[2020-10-19] MEDS: ARGATROBAN 50 MG in IV NORMAL SALINE 50ML 50 ML IV PRN ×2 (11:58→22:13)
--- NOTE | 2020-10-19 12:16 | NUR ---
SS following up with discharge planning. SS reviewed pt chart and discussed with pt RN. Pt is currently on the BIPAP at 40%. COVID19 negative. Pt on IV Lasix and Argatroban drip. Trach in place. G-Tube in place. LTACH's unable to accept at this time due to pt having no DPOA or Guardian. SS discussed with Eeo Officer, Clifton Mosqueda. Pt transferring to room 665. SS will continue to follow for discharge planning.
[2020-10-19] MEDS: CLOPIDOGREL BISULFATE 75 MG TABLET PO SCH (15:24)
--- NOTE | 2020-10-19 15:41 | NUR ---
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 Target range for this patient is: 2 -3 P: Warfarin dose: 5 mg Today at 1600 Bridge Therapy: Argatroban Therapeutic Next INR due IN AM Pharmacy anticoagulation service will continue to follow. EBTI SHEA Dena, 10/19/20 [id number]
[2020-10-19] MEDS ORDERED: WARFARIN 5 MG TABLET. PO ONE (16:00)
--- NOTE | 2020-10-19 19:30 | NUR ---
pt resting comfortable and does not appear to be having any pain at this time. assessment completed vs will resume care and continue to monitor pt.
[2020-10-19] MEDS: ATORVASTATIN CALCIUM 40 MG TABLET. PO SCH (22:11)
[2020-10-20] VITALS (8 sets, daily range): BP systolic 103–150; BP diastolic 65–83
[2020-10-20] MEDS: INSULIN LISPRO 300 UNITS/3 ML VIAL. SQ SCH ×4 (05:36→23:27)
[2020-10-20] MEDS: CEFEPIME HCL IV Push 2 GM VIAL. IVP SCH (05:36)
[2020-10-20 06:05] LABS: CALCIUM 8.9 mg/dL (8.5-10.1); CREATININE 0.7 mg/dL (0.7-1.3); GFR 110.9; POTASSIUM 3.7 mmol/L (3.5-5.1)
[2020-10-20 06:22] LABS: BASO % 1 % (0-3); EOS # 0.3 x10^3/uL (0.0-0.7); EOS % 5 % (0-3); HEMATOCRIT 27.5 % (39.0-53.0); HEMOGLOBIN 9.2 g/dL (13.0-17.5); LYMPH # 1.9 x10^3/uL (1.0-4.8); LYMPH % 30 % (24-48); MEAN CORPUSCULAR HEMOGLOBIN 31 pg (25-35); MEAN CORPUSCULAR HGB CONC 34 g/dL (31-37); MEAN CORPUSCULAR VOLUME 94 fL (79-100); MONO # 0.5 x10^3/uL (0.0-1.1); MONO % 8 % (0-9); NEUT # 3.5 x10^3/uL (1.8-7.7); NEUT % 57 % (31-73); PLATELET COUNT 242 x10^3/uL (140-400); RED BLOOD COUNT 2.93 x10^6/uL (4.30-5.70); RED CELL DISTRIBUTION WIDTH 16.2 % (11.5-14.5); WHITE BLOOD COUNT 6.2 x10^3/uL (4.0-11.0)
--- NOTE | 2020-10-20 08:31 | PDOC ---
SURGICAL PROGRESS NOTE DATE: 10/20/20 TIME: 08:30 Subjective d/w nursing, tolerating TF Vital Signs Vital Signs Date Time Temp Pulse Resp B/P (MAP) Pulse Ox O2 Delivery O2 Flow Rate FiO2 10/20/20 08:05 15.0 10/20/20 07:43 98.0 92 19 143/83 (103) 98 BiPAP/CPAP 98.0 I&O Intake and Output 10/20/20 07:00 Intake Total 1118 ml Output Total 1800 ml Balance -682 ml Intake Oral 0 ml Tube Feeding 1043 ml Other 75 ml Output Urine Total 1800 ml General: No acute distress Abdomen: Soft, Other (g tube in place) Labs Laboratory Tests Test 10/18/20 11:58 10/18/20 17:37 10/18/20 23:57 10/19/20 05:00 Glucose (Fingerstick) 116 mg/dL (70-99) 131 mg/dL (70-99) 121 mg/dL (70-99) White Blood Count 6.6 x10^3/uL (4.0-11.0) Red Blood Count 3.02 x10^6/uL (4.30-5.70) Hemoglobin 9.8 g/dL (13.0-17.5) Hematocrit 28.4 % (39.0-53.0) Mean Corpuscular Volume 94 fL (79-100) Mean Corpuscular Hemoglobin 32 pg (25-35) Mean Corpuscular Hemoglobin Concent 34 g/dL (31-37) Red Cell Distribution Width 16.7 % (11.5-14.5) Platelet Count 238 x10^3/uL (140-400) Neutrophils (%) (Auto) 52 % (31-73) Lymphocytes (%) (Auto) 33 % (24-48) Monocytes (%) (Auto) 8 % (0-9) Eosinophils (%) (Auto) 6 % (0-3) Basophils (%) (Auto) 1 % (0-3) Neutrophils # (Auto) 3.5 x10^3/uL (1.8-7.7) Lymphocytes # (Auto) 2.2 x10^3/uL (1.0-4.8) Monocytes # (Auto) 0.5 x10^3/uL (0.0-1.1) Eosinophils # (Auto) 0.4 x10^3/uL (0.0-0.7) Basophils # (Auto) 0.1 x10^3/uL (0.0-0.2) Prothrombin Time 15.3 SEC (11.7-14.0) Prothromb Time International Ratio 1.2 (0.8-1.1) Sodium Level 139 mmol/L (136-145) Potassium Level 4.1 mmol/L (3.5-5.1) Chloride Level 101 mmol/L (98-107) Carbon Dioxide Level 31 mmol/L (21-32) Anion Gap 7 (6-14) Blood Urea Nitrogen 23 mg/dL (8-26) Creatinine 0.7 mg/dL (0.7-1.3) Estimated GFR (Cockcroft-Gault) 110.9 Glucose Level 102 mg/dL (70-99) Calcium Level 9.2 mg/dL (8.5-10.1) Test 10/19/20 08:34 10/19/20 15:30 10/19/20 16:41 10/19/20 20:25 O2 Saturation 98 % (92-99) Arterial Blood pH 7.48 (7.35-7.45) Arterial Blood pCO2 at Patient Temp 40 mmHg (35-46) Arterial Blood pO2 at Patient Temp 121 mmHg (65-108) Arterial Blood HCO3 29 mmol/L (21-28) Arterial Blood Base Excess 6 mmol/L (-3-3) FiO2 40% vent Activated Partial Thromboplast Time 54 SEC (24-38) 70 SEC (24-38) Glucose (Fingerstick) 114 mg/dL (70-99) Test 10/19/20 23:39 10/20/20 05:36 10/20/20 05:45 Glucose (Fingerstick) 126 mg/dL (70-99) 120 mg/dL (70-99) White Blood Count 6.2 x10^3/uL (4.0-11.0) Red Blood Count 2.93 x10^6/uL (4.30-5.70) Hemoglobin 9.2 g/dL (13.0-17.5) Hematocrit 27.5 % (39.0-53.0) Mean Corpuscular Volume 94 fL (79-100) Mean Corpuscular Hemoglobin 31 pg (25-35) Mean Corpuscular Hemoglobin Concent 34 g/dL (31-37) Red Cell Distribution Width 16.2 % (11.5-14.5) Platelet Count 242 x10^3/uL (140-400) Neutrophils (%) (Auto) 57 % (31-73) Lymphocytes (%) (Auto) 30 % (24-48) Monocytes (%) (Auto) 8 % (0-9) Eosinophils (%) (Auto) 5 % (0-3) Basophils (%) (Auto) 1 % (0-3) Neutrophils # (Auto) 3.5 x10^3/uL (1.8-7.7) Lymphocytes # (Auto) 1.9 x10^3/uL (1.0-4.8) Monocytes # (Auto) 0.5 x10^3/uL (0.0-1.1) Eosinophils # (Auto) 0.3 x10^3/uL (0.0-0.7) Basophils # (Auto) 0.0 x10^3/uL (0.0-0.2) Activated Partial Thromboplast Time 88 SEC (24-38) Sodium Level 138 mmol/L (136-145) Potassium Level 3.7 mmol/L (3.5-5.1) Chloride Level 101 mmol/L (98-107) Carbon Dioxide Level 30 mmol/L (21-32) Anion Gap 7 (6-14) Blood Urea Nitrogen 23 mg/dL (8-26) Creatinine 0.7 mg/dL (0.7-1.3) Estimated GFR (Cockcroft-Gault) 110.9 Glucose Level 113 mg/dL (70-99) Calcium Level 8.9 mg/dL (8.5-10.1) Laboratory Tests Test 10/19/20 08:34 10/19/20 15:30 10/19/20 16:41 10/19/20 20:25 O2 Saturation 98 % (92-99) Arterial Blood pH 7.48 (7.35-7.45) Arterial Blood pCO2 at Patient Temp 40 mmHg (35-46) Arterial Blood pO2 at Patient Temp 121 mmHg (65-108) Arterial Blood HCO3 29 mmol/L (21-28) Arterial Blood Base Excess 6 mmol/L (-3-3) FiO2 40% vent Activated Partial Thromboplast Time 54 SEC (24-38) 70 SEC (24-38) Glucose (Fingerstick) 114 mg/dL (70-99) Test 10/19/20 23:39 10/20/20 05:36 10/20/20 05:45 Glucose (Fingerstick) 126 mg/dL (70-99) 120 mg/dL (70-99) White Blood Count 6.2 x10^3/uL (4.0-11.0) Red Blood Count 2.93 x10^6/uL (4.30-5.70) Hemoglobin 9.2 g/dL (13.0-17.5) Hematocrit 27.5 % (39.0-53.0) Mean Corpuscular Volume 94 fL (79-100) Mean Corpuscular Hemoglobin 31 pg (25-35) Mean Corpuscular Hemoglobin Concent 34 g/dL (31-37) Red Cell Distribution Width 16.2 % (11.5-14.5) Platelet Count 242 x10^3/uL (140-400) Neutrophils (%) (Auto) 57 % (31-73) Lymphocytes (%) (Auto) 30 % (24-48) Monocytes (%) (Auto) 8 % (0-9) Eosinophils (%) (Auto) 5 % (0-3) Basophils (%) (Auto) 1 % (0-3) Neutrophils # (Auto) 3.5 x10^3/uL (1.8-7.7) Lymphocytes # (Auto) 1.9 x10^3/uL (1.0-4.8) Monocytes # (Auto) 0.5 x10^3/uL (0.0-1.1) Eosinophils # (Auto) 0.3 x10^3/uL (0.0-0.7) Basophils # (Auto) 0.0 x10^3/uL (0.0-0.2) Activated Partial Thromboplast Time 88 SEC (24-38) Sodium Level 138 mmol/L (136-145) Potassium Level 3.7 mmol/L (3.5-5.1) Chloride Level 101 mmol/L (98-107) Carbon Dioxide Level 30 mmol/L (21-32) Anion Gap 7 (6-14) Blood Urea Nitrogen 23 mg/dL (8-26) Creatinine 0.7 mg/dL (0.7-1.3) Estimated GFR (Cockcroft-Gault) 110.9 Glucose Level 113 mg/dL (70-99) Calcium Level 8.9 mg/dL (8.5-10.1) Problem List Problems Medical Problems: (1) NSTEMI (non-ST elevated myocardial infarction) Status: Acute (2) Obtundation Status: Acute (3) Respiratory arrest Status: Acute Assessment/Plan TF as tolerated will sign off, please call with questions Justicifation of Admission Dx: Justifications for Admission: Justification of Admission Dx: Yes CHF: Cardiac Arrhythmias VICTORINO ARTHUR CRANE FOLLOWER Oct 20, 2020 08:31
--- NOTE | 2020-10-20 08:38 | PDOC ---
PULMONARY PROGRESS NOTES DATE: 10/20/20 TIME: 08:37 Subjective Patient currently on AVAPS No overnight events Vitals Vital Signs Date Time Temp Pulse Resp B/P (MAP) Pulse Ox O2 Delivery O2 Flow Rate FiO2 10/20/20 08:05 15.0 10/20/20 07:43 98.0 92 19 143/83 (103) 98 BiPAP/CPAP 98.0 General: No acute distress HEENT: Other (nc at perrl nose clear orally intubated neck no lad no thyromegaly) Lungs: Other (Tracheostomy) Cardiovascular: S1, S2 Abdomen: Soft, Non-tender, Other (Obese) Extremities: Other (1+ edema) Skin: Warm Labs Laboratory Tests Test 10/18/20 11:58 10/18/20 17:37 10/18/20 23:57 10/19/20 05:00 Glucose (Fingerstick) 116 mg/dL (70-99) 131 mg/dL (70-99) 121 mg/dL (70-99) White Blood Count 6.6 x10^3/uL (4.0-11.0) Red Blood Count 3.02 x10^6/uL (4.30-5.70) Hemoglobin 9.8 g/dL (13.0-17.5) Hematocrit 28.4 % (39.0-53.0) Mean Corpuscular Volume 94 fL (79-100) Mean Corpuscular Hemoglobin 32 pg (25-35) Mean Corpuscular Hemoglobin Concent 34 g/dL (31-37) Red Cell Distribution Width 16.7 % (11.5-14.5) Platelet Count 238 x10^3/uL (140-400) Neutrophils (%) (Auto) 52 % (31-73) Lymphocytes (%) (Auto) 33 % (24-48) Monocytes (%) (Auto) 8 % (0-9) Eosinophils (%) (Auto) 6 % (0-3) Basophils (%) (Auto) 1 % (0-3) Neutrophils # (Auto) 3.5 x10^3/uL (1.8-7.7) Lymphocytes # (Auto) 2.2 x10^3/uL (1.0-4.8) Monocytes # (Auto) 0.5 x10^3/uL (0.0-1.1) Eosinophils # (Auto) 0.4 x10^3/uL (0.0-0.7) Basophils # (Auto) 0.1 x10^3/uL (0.0-0.2) Prothrombin Time 15.3 SEC (11.7-14.0) Prothromb Time International Ratio 1.2 (0.8-1.1) Sodium Level 139 mmol/L (136-145) Potassium Level 4.1 mmol/L (3.5-5.1) Chloride Level 101 mmol/L (98-107) Carbon Dioxide Level 31 mmol/L (21-32) Anion Gap 7 (6-14) Blood Urea Nitrogen 23 mg/dL (8-26) Creatinine 0.7 mg/dL (0.7-1.3) Estimated GFR (Cockcroft-Gault) 110.9 Glucose Level 102 mg/dL (70-99) Calcium Level 9.2 mg/dL (8.5-10.1) Test 10/19/20 08:34 10/19/20 15:30 10/19/20 16:41 10/19/20 20:25 O2 Saturation 98 % (92-99) Arterial Blood pH 7.48 (7.35-7.45) Arterial Blood pCO2 at Patient Temp 40 mmHg (35-46) Arterial Blood pO2 at Patient Temp 121 mmHg (65-108) Arterial Blood HCO3 29 mmol/L (21-28) Arterial Blood Base Excess 6 mmol/L (-3-3) FiO2 40% vent Activated Partial Thromboplast Time 54 SEC (24-38) 70 SEC (24-38) Glucose (Fingerstick) 114 mg/dL (70-99) Test 10/19/20 23:39 10/20/20 05:36 10/20/20 05:45 Glucose (Fingerstick) 126 mg/dL (70-99) 120 mg/dL (70-99) White Blood Count 6.2 x10^3/uL (4.0-11.0) Red Blood Count 2.93 x10^6/uL (4.30-5.70) Hemoglobin 9.2 g/dL (13.0-17.5) Hematocrit 27.5 % (39.0-53.0) Mean Corpuscular Volume 94 fL (79-100) Mean Corpuscular Hemoglobin 31 pg (25-35) Mean Corpuscular Hemoglobin Concent 34 g/dL (31-37) Red Cell Distribution Width 16.2 % (11.5-14.5) Platelet Count 242 x10^3/uL (140-400) Neutrophils (%) (Auto) 57 % (31-73) Lymphocytes (%) (Auto) 30 % (24-48) Monocytes (%) (Auto) 8 % (0-9) Eosinophils (%) (Auto) 5 % (0-3) Basophils (%) (Auto) 1 % (0-3) Neutrophils # (Auto) 3.5 x10^3/uL (1.8-7.7) Lymphocytes # (Auto) 1.9 x10^3/uL (1.0-4.8) Monocytes # (Auto) 0.5 x10^3/uL (0.0-1.1) Eosinophils # (Auto) 0.3 x10^3/uL (0.0-0.7) Basophils # (Auto) 0.0 x10^3/uL (0.0-0.2) Activated Partial Thromboplast Time 88 SEC (24-38) Sodium Level 138 mmol/L (136-145) Potassium Level 3.7 mmol/L (3.5-5.1) Chloride Level 101 mmol/L (98-107) Carbon Dioxide Level 30 mmol/L (21-32) Anion Gap 7 (6-14) Blood Urea Nitrogen 23 mg/dL (8-26) Creatinine 0.7 mg/dL (0.7-1.3) Estimated GFR (Cockcroft-Gault) 110.9 Glucose Level 113 mg/dL (70-99) Calcium Level 8.9 mg/dL (8.5-10.1) Laboratory Tests Test 10/19/20 15:30 10/19/20 16:41 10/19/20 20:25 10/19/20 23:39 Activated Partial Thromboplast Time 54 SEC (24-38) 70 SEC (24-38) Glucose (Fingerstick) 114 mg/dL (70-99) 126 mg/dL (70-99) Test 10/20/20 05:36 10/20/20 05:45 Glucose (Fingerstick) 120 mg/dL (70-99) White Blood Count 6.2 x10^3/uL (4.0-11.0) Red Blood Count 2.93 x10^6/uL (4.30-5.70) Hemoglobin 9.2 g/dL (13.0-17.5) Hematocrit 27.5 % (39.0-53.0) Mean Corpuscular Volume 94 fL (79-100) Mean Corpuscular Hemoglobin 31 pg (25-35) Mean Corpuscular Hemoglobin Concent 34 g/dL (31-37) Red Cell Distribution Width 16.2 % (11.5-14.5) Platelet Count 242 x10^3/uL (140-400) Neutrophils (%) (Auto) 57 % (31-73) Lymphocytes (%) (Auto) 30 % (24-48) Monocytes (%) (Auto) 8 % (0-9) Eosinophils (%) (Auto) 5 % (0-3) Basophils (%) (Auto) 1 % (0-3) Neutrophils # (Auto) 3.5 x10^3/uL (1.8-7.7) Lymphocytes # (Auto) 1.9 x10^3/uL (1.0-4.8) Monocytes # (Auto) 0.5 x10^3/uL (0.0-1.1) Eosinophils # (Auto) 0.3 x10^3/uL (0.0-0.7) Basophils # (Auto) 0.0 x10^3/uL (0.0-0.2) Activated Partial Thromboplast Time 88 SEC (24-38) Sodium Level 138 mmol/L (136-145) Potassium Level 3.7 mmol/L (3.5-5.1) Chloride Level 101 mmol/L (98-107) Carbon Dioxide Level 30 mmol/L (21-32) Anion Gap 7 (6-14) Blood Urea Nitrogen 23 mg/dL (8-26) Creatinine 0.7 mg/dL (0.7-1.3) Estimated GFR (Cockcroft-Gault) 110.9 Glucose Level 113 mg/dL (70-99) Calcium Level 8.9 mg/dL (8.5-10.1) Medications Active Scripts Medications Dose Route/Sig Max Daily Dose Days Date Category Amiodarone Hcl 200 Mg Tablet 400 Mg PO DAILY 09/18/20 Rx [Warfarin Per Pharmacy] 1 EACH Each 1 Each MC PRN DAILY PRN 30 09/18/20 Rx Clopidogrel (Clopidogrel Bisulfate) 75 Mg Tablet 75 Mg PO DAILYWBKFT 90 09/18/20 Rx Glimepiride 4 Mg Tablet 1 Tab PO DAILY 09/13/20 Reported Furosemide 40 Mg Tablet 1 Tab PO BID 09/13/20 Reported Symbicort 160-4.5 Mcg Inhaler (Budesonide/Formoterol Fumarate) 10.2 Gm Hfa.aer.ad 1 Puff INH DAILY 09/13/20 Reported Losartan-Hctz 100-12.5 Mg Tab (Losartan/Hydrochlorothiazide) 1 Each Tablet 1 Tab PO DAILY 09/13/20 Reported Nitrofurantoin [place]-Mcr 100 Mg (Nitrofurantoin Monohyd/M-Cryst) 100 Mg Capsule 1 Cap PO BID 09/13/20 Reported Betamethasone Valerate 60 Ml Lotion 1 TP QHS 09/13/20 Reported Atorvastatin Calcium 40 Mg Tablet 1 Tab PO DAILY 09/13/20 Reported Diltiazem 24Hr Cd (Diltiazem HCl) 240 Mg Cap.er.24h 1 Cap PO DAILY 09/13/20 Reported Nystop (Nystatin) 60 Gm Powder 1 Sudheer TP BID 09/13/20 Reported Humalog (Insulin Lispro) 100 Unit/1 Ml Insuln.pen 0 Units SQ TIDWMEALS 30 08/06/18 Rx Duoneb 0.5-3(2.5) Mg/3 Ml (Albuterol/Ipratropium) 3 Ml Ampul.neb 3 Ml NEB RTQID 30 08/06/18 Rx Aspirin 325 Mg Tablet 325 Mg PO DAILYWBKFT 30 07/22/17 Rx Metoprolol Tartrate 25 Mg Tablet 25 Mg PO BID 30 07/22/17 Rx Montelukast Sodium Tablet (Montelukast Sodium) 10 Mg Tablet 10 Mg PO QHS 07/22/17 Rx Gabapentin 600 Mg Tablet 600 Mg PO BID 30 07/22/17 Rx Pepcid (Famotidine) 20 Mg Tablet 20 Mg PO BID 05/17/13 Reported Impression . 1. Acute on chronic respiratory failure secondary to multifactorial etiologies including hypoglycemic encephalopathy. No evidence of new stroke. 2. Possible sepsis--- on antibiotics 3. Hypoglycemia./ encephalopathy 4. The patient with prior history of cerebrovascular accident with left-sided weakness. 5. Underlying chronic obstructive pulmonary disease. 6. Morbid obesity. 7. Peripheral vascular disease. 8. Abnormal CT chest with bibasilar atelectasis. No significant mucus plugging. Tiny pleural effusion seen. 10/18 Procedure Performed: laparoscopic gastrostomy tube placement (specifically 24 F) Plan . Updated 10/20 Status post gastrostomy tube Continue AVAPS We will ask respiratory to consider trach shield trial to see if he has any apneic breathing. Long-term prognosis poor Discussed with social service, discharge planning in place once court appointed DPOA available Discussed with RN Updated 10 19 Status post gastrostomy tube Continue AVAPS Long-term prognosis poor Discussed with social service, discharge planning in place updated 10/18 Nephrostomy tube today Spoke with Dr. Bobo Continue pressure support as tolerated updated 10/17 Continue pressure support during the day The a.m. for gastrostomy tube Discussed with RN updated 10/16 Continue pressure support during the day Continues current support Long-term prognosis poor CLINTON PALAFOX MD Oct 20, 2020 08:38
[2020-10-20 09:41] LABS: PROTHROMBIN TIME PATIENT 22.9 SEC (11.7-14.0)
[2020-10-20] MEDS: PANTOPRAZOLE IV PUSH 40 MG VIAL. IVP SCH (09:43)
[2020-10-20] MEDS: ASPIRIN CHEWABLE 81 MG TABLET. PO SCH (09:44)
[2020-10-20] MEDS: POTASSIUM BICARB 20 MEQ EFFERVESCENT TABLET. PEG SCH (09:44)
[2020-10-20] MEDS: FUROSEMIDE 40 MG/4 ML VIAL. IVP SCH (09:44)
[2020-10-20] MEDS: AMIODARONE HCL 200 MG TABLET. PO SCH (09:45)
[2020-10-20] MEDS: METOPROLOL TART IMMED RELEASE 25 MG TABLET. PO SCH ×2 (09:45→21:17)
[2020-10-20] MEDS: CLOPIDOGREL BISULFATE 75 MG TABLET PO SCH (09:46)
--- NOTE | 2020-10-20 10:46 | NUR ---
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 Target range for this patient is: >4 WHILE ON ARGATROBAN GTT P: Warfarin dose: 5 mg Today at 1600 Bridge Therapy: Argatroban Therapeutic Next INR due 10/20/20 Pharmacy anticoagulation service will continue to follow. PEDRO LEE RPH, 10/20/20 [id number]
--- NOTE | 2020-10-20 13:05 | PDOC ---
CARDIO Progress Notes Date and Time Date of Service 10/20/2020 Time of Evaluation 1250 Subjective Subjective: Other (nonverbal) Vitals Vitals Vital Signs Date Time Temp Pulse Resp B/P (MAP) Pulse Ox O2 Delivery O2 Flow Rate FiO2 10/20/20 11:39 99 Ventilator 10/20/20 10:34 99.9 89 21 126/72 (90) 15.0 99.9 Weight Weight [ ] Input and Output Intake and Output Intake and Output 10/20/20 07:00 Intake Total 1118 ml Output Total 1800 ml Balance -682 ml Intake Oral 0 ml Tube Feeding 1043 ml Other 75 ml Output Urine Total 1800 ml Laboratory Labs Laboratory Tests Test 10/19/20 15:30 10/19/20 16:41 10/19/20 20:25 10/19/20 23:39 Activated Partial Thromboplast Time 54 SEC (24-38) 70 SEC (24-38) Glucose (Fingerstick) 114 mg/dL (70-99) 126 mg/dL (70-99) Test 10/20/20 05:36 10/20/20 05:45 10/20/20 11:27 Glucose (Fingerstick) 120 mg/dL (70-99) 120 mg/dL (70-99) White Blood Count 6.2 x10^3/uL (4.0-11.0) Red Blood Count 2.93 x10^6/uL (4.30-5.70) Hemoglobin 9.2 g/dL (13.0-17.5) Hematocrit 27.5 % (39.0-53.0) Mean Corpuscular Volume 94 fL (79-100) Mean Corpuscular Hemoglobin 31 pg (25-35) Mean Corpuscular Hemoglobin Concent 34 g/dL (31-37) Red Cell Distribution Width 16.2 % (11.5-14.5) Platelet Count 242 x10^3/uL (140-400) Neutrophils (%) (Auto) 57 % (31-73) Lymphocytes (%) (Auto) 30 % (24-48) Monocytes (%) (Auto) 8 % (0-9) Eosinophils (%) (Auto) 5 % (0-3) Basophils (%) (Auto) 1 % (0-3) Neutrophils # (Auto) 3.5 x10^3/uL (1.8-7.7) Lymphocytes # (Auto) 1.9 x10^3/uL (1.0-4.8) Monocytes # (Auto) 0.5 x10^3/uL (0.0-1.1) Eosinophils # (Auto) 0.3 x10^3/uL (0.0-0.7) Basophils # (Auto) 0.0 x10^3/uL (0.0-0.2) Prothrombin Time 22.9 SEC (11.7-14.0) Prothromb Time International Ratio 2.1 (0.8-1.1) Activated Partial Thromboplast Time 88 SEC (24-38) Sodium Level 138 mmol/L (136-145) Potassium Level 3.7 mmol/L (3.5-5.1) Chloride Level 101 mmol/L (98-107) Carbon Dioxide Level 30 mmol/L (21-32) Anion Gap 7 (6-14) Blood Urea Nitrogen 23 mg/dL (8-26) Creatinine 0.7 mg/dL (0.7-1.3) Estimated GFR (Cockcroft-Gault) 110.9 Glucose Level 113 mg/dL (70-99) Calcium Level 8.9 mg/dL (8.5-10.1) Physical Exam HEENT: Neck Supple W Full Motion Chest: Symmetric LUNGS: Other (trach with vent) Heart: RRR (SR) Abdomen: Other (obes; PEG) Extremities: No Edema Neurology: other (opens eyes, does not track ) Assessment Assessment 1. Acute on chronic respiratory failure with associated severe hypoglycemia and encephalopathy and COPD, CHF; s/p tracheostomy. mechanical vent. Pulmonary team following. 2. Metabolic encephalopathy with associated hypoglycemia. MRI revealed no new stroke 3. Acute on chronic diastolic/systolic CHF: better compensated 4. CAD/STEMI: S/P complex PCI/stents to RCA/LAD 08/16/2020. [facility] 08/31 with ISR to RCA, S/P PCI, clinically stable 5. ICM: EF at 25%, clinically well compensated. 6. PAD: S/P thrombolysis to right popliteal artery with large aneurysm. Needing future repair per vascular. 7. 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 PAFIB: maintaining SR. 10. Anemia: post transfusion. 11. Hx of CVA 12. Dysphagia; S/P PEG placement Recommendations Secondary prevention Plavix and coumadin INR at 2.1 DC argatrobran when INR is at 4 per protocol then daily INR with goal at 2-3 with coumadin. Discussed with pharmacy Lasix therapy Amiodarone for rhythm maintenance. Supportive care Justicifation of Admission Dx: Justifications for Admission: Justification of Admission Dx: Yes CHF: Cardiac Arrhythmias BENNY JOE APRN Oct 20, 2020 13:05
--- NOTE | 2020-10-20 13:26 | NUR ---
SS following up with discharge planning. SS reviewed pt chart and discussed with pt RN. Pt is currently on the BIPAP at 35%. COVID19 negative. Pt on IV Lasix and Argatroban drip. Trach in place. G-Tube in place. LTACH's unable to accept at this time due to pt having no DPOA or Guardian. SS discussed with Sales Effectiveness Manager, Clifton Mosqueda. SS will continue to follow for discharge planning.
--- NOTE | 2020-10-20 13:55 | PDOC ---
[facility] PROGRESS NOTE Date of Service DOS: DATE: 10/20/20 TIME: 13:52 Chief Complaint Chief Complaint CC: Acute anemia Acute metabolic, infectious encephalopathy Acute respiratory failure Healthcare associated pneumonia Acute hypoglycemia Hypokalemia Elevated troponins Severe protein malnutrition Morbid obesity AAA, 4 cm, infrarenal History of diabetes mellitus type 2 History of dyslipidemia history of hypertension History of recent STEMI History of CAD History of peripheral artery disease History of JEANNE History of CVA History of paroxysmal atrial fibrillation Ischemic cardiomyopathy History of Present Illness History of Present Illness Mr Andrews is a 70-year-old male with a recent prolonged hospitalization for STEMI and respiratory failure for which she was treated with arterial thrombolysis for a right leg popliteal artery aneurysm and also had left heart cath with placement of a stent in the LAD and RCA comes in today after he was found obtunded at his long-term facility. Apparently according to the nursing facility patient was in his usual state of health and he was conversational but then became altered. His blood glucose was found to be in the 30s. Glucose tabs and glucagon was given in route and his GCS reported at 6. Upon arrival patient's mental status did not improve and he was eventually intubated for airway protection. Of note EMS was bagging the patient through the nasal access. In the ED, patient was placed on a vent and pulmonology was consulted. Patient was also taken to the CT scanner for sanders scanning. Patient was started to wake up on the vent and sedation was ordered. 09/23: Patient examined at bedside. Intubated. Not on any sedation but unresponsive. Neurology consult in place. 09/24: Patient seen and examined at bedside. Remains intubated he is off sedation but still remains unresponsive. Planning for MRI brain in the morning. Further plan to be determined by MRI. 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 09/25: Afebrile, currently breathing on ventilator with FiO2 50%, PEEP 5. Had CODE BLUE in ICU this morning; received 2 rounds of CPR, epinephrine, and atropine with ROSC. MRI brain negative. Made DNR, and after discussion with Dr. Rubalcava he agrees. 09/26:: Afebrile. Still on vent, with FiO2 45%, PEEP 5. After discussion with Dr. Rubalcava yesterday, patient was made DNR. In the ED is likely a poor candidate for weaning trials may need trach in near future if no significant improvement. 09/27:: Afebrile. On vent with FiO2 40%, PEEP 5. Potassium 2.8 today, will replace. Warfarin has been resumed. Discussed with pharmacy, will resume aspirin and Plavix. May need tracheostomy by the end of the week if no improvement in mental status. 09/28:: Afebrile. On ventilator with FiO2 40%, PEEP 5. Warfarin has been r esumed; INR 1.3 today. Some morning labs still pending; hemoglobin yesterday 7.3, will continue to monitor. Continue IV cefepime and supportive care. 09/29: Afebrile. Breathing on vent with FiO2 40%, PEEP 5. INR 1.2 today; pharmacy to help with warfarin dosing. White count within normal range, renal function stable. Spoke with pharmacy about cefepime 1 g every 8 hours dosing; t his has been changed to cefepime 2 g every 8 hours. 09/30: Afebrile. Currently breathing on vent with FiO2 40%, PEEP 5. Continue antibiotics, cefepime 2 g every 8 hours. INR 1.4; continue warfarin dosing per pharmacy. Possible tracheostomy at some point. Critical care time 30 minutes reviewing charts, labs, examination, discussion with RN. 10/01: T-max 100.3 F. On ventilator with FiO2 40%, PEEP 5. Continue antibiotics, cefepime 2 g every 8 hours. INR 1.4, still subtherapeutic; continue warfarin dosing per pharmacy. Possible tracheostomy at some point. 10/02: No acute events overnight. Patient saturating 99% on vent settings of 10/450/40/5. Patient will likely need a trach and PEG at some point. We will hold warfarin and start 2 units PRBC transfusion. Patient's chart, labs, images were reviewed and discussed with RN 10/03: No acute events overnight. Patient sat 100% on minimal vent settings. No sedation at this point and patient is opening his eyes spontaneously. Not much response or spontaneous movements. Surgery has been consulted for tracheostomy. Patient will also likely need a PEG tube. 10/04: No acute events overnight. Patient saturating 90% on minimal vent settings. T-max 100.4 overnight. Plan for trach tomorrow with surgery. Patient's chart, labs, images were reviewed and discussed with RN 10/05: No acute events overnight. Patient saturating 99% on minimal vent settings. Plan for tracheostomy today. Consent is provided by authorization by 2 physicians due to patient having no close relatives or DPOA. Will resume heparin and warfarin bridging tomorrow after tracheostomy 10/07: No acute events overnight. Patient seen and examined bedside. On trach vent. Saturating 99%. Pending GI evaluation for possible PEG placement after discussing with cardiology whether to continue with Plavix. Possibly place PEG if patient is only on aspirin and stopping argatroban. 10/08: No acute events overnight. Patient continues to be on trach mechanical vent. Saturating 100%. Pending decision from GI whether to proceed with PEG placement depending on the type of anticoagulation patient will be on. 10/09: No overnight events. On trach with vent support 40% FiO2 PEEP of 5. Currently argatroban and propofol for minimal sedation. When sedation is weaned he has no meaningful movements but has pulled at his tracheostomy site. Unable to hold plavix due to recently placed stents. 10/10: Afebrile today. On trach with vent support 40% FiO2 PEEP of 5. Continue argatroban and changed to Aggrastat in anticipation of surgical consultation for potential laparoscopic PEG placement. INR 1.6. Hb greater than 9 no significant neurologic recovery today. 10/11: Afebrile. On trach with vent support 40% FiO2 PEEP of 5. INR 1.8. Not making meaningful eye contact. Labs otherwise stable. 10/12: Afebrile. Trach with vent support 40% FiO2 PEEP five O2 saturations 92%. INR 1.8, mag 1.8, Hb 8.4. Not following commands. Tentative plans for surgical PEG next week. 10/13: Afebrile. Trach with vent support 40% FiO2 PEEP 5. Eyes open, not tracking or following commands. Holding Plavix. On argatroban. 10/14: Afebrile. Trach with vent support 40% FiO2 PEEP of 5. Will open eyes intermittently not necessarily to voice. Good urine output. Labs stable. 10/15: Afebrile overnight. Trach with vent AC 40% fio2 PEEP 5. Had a very large bowel movement. Still not tracking. Hb 9, INR 1.7, glucose 144. Tentative plan for PEG 10/18/2020 CC time 30 minutes 10/16/20: Patient seen and examined in the ICU. He was resting and still on vent via trach. Has NG running via Dobhoff, feeding at 40cc/hr. AC/10/450/40% plus 5 PEEP. Discussed with RN. Chart reviewed. 10/17/20: Patient was seen and examined in the ICU today. Still on vent via trach at AC/10/450/40 plus 5 PEEP. While examined, patient was at 100% O2 saturation. Has SCDs on for DVT prophylaxis. Stauffer catheter in place. On IV argatroban. R subclavian triple lumen in place. Dobhoff running at 40cc/hr. Discussed with RN. Chart reviewed. 10/18/20: Patient seen and examined in ICU. His eyes are open. On vent via trach with settings that were recently changed to spontaneous respirations with FiO2 of 40 and 5 PEEP. Trach is clean and dry. Currently, oxygen saturation is at 100%. Stauffer to bedside and rectal bag in place. Discussed with RN. Chart re viewed. 10/19/20: Patient was seen and examined in the ICU today. His eyes were open and he was resting. On BiPAP via trach AVAPS/10/450/40 plus 5 PEEP. Trach is clean and dry. Has SCDs for DVT prophylaxis. Patient has rectal bag, Stauffer to bedside, and NG tube in place. Discussed with RN. Chart reviewed. 10/20/20 No acute events overnight. Patient seen and examined bedside. Transferred from the ICU. Continues to be nonverbal and not following much commands. Opens eyes to voice. Currently on BiPAP via trach on AVAPS setting 10/450/40 PEEP of 5. Trach site is clear. No signs of infections. Patient's chart, labs, images were reviewed and discussed with RN Vitals/I&O Vitals/I&O: Vital Signs Date Time Temp Pulse Resp B/P (MAP) Pulse Ox O2 Delivery O2 Flow Rate FiO2 10/20/20 12:30 15.0 10/20/20 11:39 99 Ventilator 10/20/20 10:34 99.9 89 21 126/72 (90) 99.9 I & O 10/19/20 10/19/20 10/20/20 15:00 23:00 07:00 Intake Total 275 ml 843 ml Output Total 1350 ml 450 ml Balance -1350 ml 275 ml 393 ml Physical Exam General: Alert, No acute distress Heart: Regular rate (SR), Other (distatne heart sounds) Lungs: Other (Tracheostomy) Abdomen: Soft, Other (g tube in place) Extremities: No cyanosis, Other (2-3+ bilateral LE pitting edema) Skin: No rashes, No significant lesion Labs Labs: Laboratory Tests Test 10/19/20 15:30 10/19/20 16:41 10/19/20 20:25 10/19/20 23:39 Activated Partial Thromboplast Time 54 SEC (24-38) 70 SEC (24-38) Glucose (Fingerstick) 114 mg/dL (70-99) 126 mg/dL (70-99) Test 10/20/20 05:36 10/20/20 05:45 10/20/20 11:27 Glucose (Fingerstick) 120 mg/dL (70-99) 120 mg/dL (70-99) White Blood Count 6.2 x10^3/uL (4.0-11.0) Red Blood Count 2.93 x10^6/uL (4.30-5.70) Hemoglobin 9.2 g/dL (13.0-17.5) Hematocrit 27.5 % (39.0-53.0) Mean Corpuscular Volume 94 fL (79-100) Mean Corpuscular Hemoglobin 31 pg (25-35) Mean Corpuscular Hemoglobin Concent 34 g/dL (31-37) Red Cell Distribution Width 16.2 % (11.5-14.5) Platelet Count 242 x10^3/uL (140-400) Neutrophils (%) (Auto) 57 % (31-73) Lymphocytes (%) (Auto) 30 % (24-48) Monocytes (%) (Auto) 8 % (0-9) Eosinophils (%) (Auto) 5 % (0-3) Basophils (%) (Auto) 1 % (0-3) Neutrophils # (Auto) 3.5 x10^3/uL (1.8-7.7) Lymphocytes # (Auto) 1.9 x10^3/uL (1.0-4.8) Monocytes # (Auto) 0.5 x10^3/uL (0.0-1.1) Eosinophils # (Auto) 0.3 x10^3/uL (0.0-0.7) Basophils # (Auto) 0.0 x10^3/uL (0.0-0.2) Prothrombin Time 22.9 SEC (11.7-14.0) Prothromb Time International Ratio 2.1 (0.8-1.1) Activated Partial Thromboplast Time 88 SEC (24-38) Sodium Level 138 mmol/L (136-145) Potassium Level 3.7 mmol/L (3.5-5.1) Chloride Level 101 mmol/L (98-107) Carbon Dioxide Level 30 mmol/L (21-32) Anion Gap 7 (6-14) Blood Urea Nitrogen 23 mg/dL (8-26) Creatinine 0.7 mg/dL (0.7-1.3) Estimated GFR (Cockcroft-Gault) 110.9 Glucose Level 113 mg/dL (70-99) Calcium Level 8.9 mg/dL (8.5-10.1) Assessment and Plan Assessmemt and Plan Problems Medical Problems: (1) NSTEMI (non-ST elevated myocardial infarction) Status: Acute (2) Obtundation Status: Acute (3) Respiratory arrest Status: Acute Comment Review of Relevant I have reviewed the following items denise (where applicable) has been applied. Medications: Current Medications Medications (Trade) Dose Ordered Sig/Dru Route PRN Reason Start Time Stop Time Status Last Admin Dose Admin Clopidogrel Bisulfate (Plavix) 75 mg DAILYWBKFT PO 10/19/20 14:00 10/20/20 09:46 Warfarin Sodium (Coumadin) 5 mg 1X WARF ONCE PO 10/19/20 16:00 10/19/20 16:01 DC 10/19/20 15:24 Justifications for Admission Other Justification Hypoglycemia and altered mental status. FUAD CUTLER MD Oct 20, 2020 13:55
[2020-10-20] MEDS ORDERED: WARFARIN 5 MG TABLET. PO ONE (16:00)
[2020-10-20 17:50] LABS: BASE EXCESS ABG 1 mmol/L (-3-3); HCO3 ABG 24 mmol/L (21-28); PCO2 ABG 33 mmHg (35-46); PO2 ABG 85 mmHg (65-108); SAT O2 ABG 96 % (92-99)
[2020-10-20 17:58] LABS: FIO2 ABG 40% APN
[2020-10-20] MEDS: ARGATROBAN 50 MG in IV NORMAL SALINE 50ML 50 ML IV PRN ×2 (19:12→22:11)
[2020-10-20] MEDS: ATORVASTATIN CALCIUM 40 MG TABLET. PO SCH (21:17)
[2020-10-21 02:40] VITALS: BP 114/68
[2020-10-21] MEDS: INSULIN LISPRO 300 UNITS/3 ML VIAL. SQ SCH ×3 (06:00→18:00)
[2020-10-21 06:31] LABS: BASO % 1 % (0-3); EOS # 0.3 x10^3/uL (0.0-0.7); EOS % 5 % (0-3); HEMATOCRIT 27.6 % (39.0-53.0); HEMOGLOBIN 9.2 g/dL (13.0-17.5); LYMPH # 2.2 x10^3/uL (1.0-4.8); LYMPH % 34 % (24-48); MEAN CORPUSCULAR HEMOGLOBIN 31 pg (25-35); MEAN CORPUSCULAR HGB CONC 34 g/dL (31-37); MEAN CORPUSCULAR VOLUME 93 fL (79-100); MONO # 0.6 x10^3/uL (0.0-1.1); MONO % 9 % (0-9); NEUT # 3.4 x10^3/uL (1.8-7.7); NEUT % 52 % (31-73); PLATELET COUNT 243 x10^3/uL (140-400); RED BLOOD COUNT 2.97 x10^6/uL (4.30-5.70); RED CELL DISTRIBUTION WIDTH 15.8 % (11.5-14.5); WHITE BLOOD COUNT 6.5 x10^3/uL (4.0-11.0)
[2020-10-21 06:48] LABS: CALCIUM 8.9 mg/dL (8.5-10.1); CREATININE 0.8 mg/dL (0.7-1.3); POTASSIUM 3.5 mmol/L (3.5-5.1)
[2020-10-21 06:56] LABS: PROTHROMBIN TIME PATIENT 26.5 SEC (11.7-14.0)
[2020-10-21 07:00] VITALS: BP 111/60
--- NOTE | 2020-10-21 08:41 | PDOC ---
PULMONARY PROGRESS NOTES DATE: 10/21/20 TIME: 08:40 Subjective Patient currently on AVAPS No overnight events Vitals Vital Signs Date Time Temp Pulse Resp B/P (MAP) Pulse Ox O2 Delivery O2 Flow Rate FiO2 10/21/20 07:00 98.4 87 18 111/60 (77) 100 BiPAP/CPAP 15.0 98.4 General: No acute distress HEENT: Other (nc at perrl nose clear orally intubated neck no lad no thyromegaly) Lungs: Other (Tracheostomy) Cardiovascular: S1, S2 Abdomen: Soft, Non-tender, Other (Obese) Extremities: Other (1+ edema) Skin: Warm Labs Laboratory Tests Test 10/19/20 15:30 10/19/20 16:41 10/19/20 20:25 10/19/20 23:39 Activated Partial Thromboplast Time 54 SEC (24-38) 70 SEC (24-38) Glucose (Fingerstick) 114 mg/dL (70-99) 126 mg/dL (70-99) Test 10/20/20 05:36 10/20/20 05:45 10/20/20 11:27 10/20/20 17:46 Glucose (Fingerstick) 120 mg/dL (70-99) 120 mg/dL (70-99) White Blood Count 6.2 x10^3/uL (4.0-11.0) Red Blood Count 2.93 x10^6/uL (4.30-5.70) Hemoglobin 9.2 g/dL (13.0-17.5) Hematocrit 27.5 % (39.0-53.0) Mean Corpuscular Volume 94 fL (79-100) Mean Corpuscular Hemoglobin 31 pg (25-35) Mean Corpuscular Hemoglobin Concent 34 g/dL (31-37) Red Cell Distribution Width 16.2 % (11.5-14.5) Platelet Count 242 x10^3/uL (140-400) Neutrophils (%) (Auto) 57 % (31-73) Lymphocytes (%) (Auto) 30 % (24-48) Monocytes (%) (Auto) 8 % (0-9) Eosinophils (%) (Auto) 5 % (0-3) Basophils (%) (Auto) 1 % (0-3) Neutrophils # (Auto) 3.5 x10^3/uL (1.8-7.7) Lymphocytes # (Auto) 1.9 x10^3/uL (1.0-4.8) Monocytes # (Auto) 0.5 x10^3/uL (0.0-1.1) Eosinophils # (Auto) 0.3 x10^3/uL (0.0-0.7) Basophils # (Auto) 0.0 x10^3/uL (0.0-0.2) Prothrombin Time 22.9 SEC (11.7-14.0) Prothromb Time International Ratio 2.1 (0.8-1.1) Activated Partial Thromboplast Time 88 SEC (24-38) Sodium Level 138 mmol/L (136-145) Potassium Level 3.7 mmol/L (3.5-5.1) Chloride Level 101 mmol/L (98-107) Carbon Dioxide Level 30 mmol/L (21-32) Anion Gap 7 (6-14) Blood Urea Nitrogen 23 mg/dL (8-26) Creatinine 0.7 mg/dL (0.7-1.3) Estimated GFR (Cockcroft-Gault) 110.9 Glucose Level 113 mg/dL (70-99) Calcium Level 8.9 mg/dL (8.5-10.1) O2 Saturation 96 % (92-99) Arterial Blood pH 7.48 (7.35-7.45) Arterial Blood pCO2 at Patient Temp 33 mmHg (35-46) Arterial Blood pO2 at Patient Temp 85 mmHg (65-108) Arterial Blood HCO3 24 mmol/L (21-28) Arterial Blood Base Excess 1 mmol/L (-3-3) FiO2 40% jailer/training officer Test 10/20/20 18:32 10/20/20 23:24 10/21/20 05:55 10/21/20 06:00 Glucose (Fingerstick) 125 mg/dL (70-99) 140 mg/dL (70-99) 142 mg/dL (70-99) Activated Partial Thromboplast Time 94 SEC (24-38) Test 10/21/20 06:05 White Blood Count 6.5 x10^3/uL (4.0-11.0) Red Blood Count 2.97 x10^6/uL (4.30-5.70) Hemoglobin 9.2 g/dL (13.0-17.5) Hematocrit 27.6 % (39.0-53.0) Mean Corpuscular Volume 93 fL (79-100) Mean Corpuscular Hemoglobin 31 pg (25-35) Mean Corpuscular Hemoglobin Concent 34 g/dL (31-37) Red Cell Distribution Width 15.8 % (11.5-14.5) Platelet Count 243 x10^3/uL (140-400) Neutrophils (%) (Auto) 52 % (31-73) Lymphocytes (%) (Auto) 34 % (24-48) Monocytes (%) (Auto) 9 % (0-9) Eosinophils (%) (Auto) 5 % (0-3) Basophils (%) (Auto) 1 % (0-3) Neutrophils # (Auto) 3.4 x10^3/uL (1.8-7.7) Lymphocytes # (Auto) 2.2 x10^3/uL (1.0-4.8) Monocytes # (Auto) 0.6 x10^3/uL (0.0-1.1) Eosinophils # (Auto) 0.3 x10^3/uL (0.0-0.7) Basophils # (Auto) 0.0 x10^3/uL (0.0-0.2) Prothrombin Time 26.5 SEC (11.7-14.0) Prothromb Time International Ratio 2.5 (0.8-1.1) Sodium Level 138 mmol/L (136-145) Potassium Level 3.5 mmol/L (3.5-5.1) Chloride Level 100 mmol/L (98-107) Carbon Dioxide Level 32 mmol/L (21-32) Anion Gap 6 (6-14) Blood Urea Nitrogen 22 mg/dL (8-26) Creatinine 0.8 mg/dL (0.7-1.3) Estimated GFR (Cockcroft-Gault) 95.0 Glucose Level 158 mg/dL (70-99) Calcium Level 8.9 mg/dL (8.5-10.1) Laboratory Tests Test 10/20/20 11:27 10/20/20 17:46 10/20/20 18:32 10/20/20 23:24 Glucose (Fingerstick) 120 mg/dL (70-99) 125 mg/dL (70-99) 140 mg/dL (70-99) O2 Saturation 96 % (92-99) Arterial Blood pH 7.48 (7.35-7.45) Arterial Blood pCO2 at Patient Temp 33 mmHg (35-46) Arterial Blood pO2 at Patient Temp 85 mmHg (65-108) Arterial Blood HCO3 24 mmol/L (21-28) Arterial Blood Base Excess 1 mmol/L (-3-3) FiO2 40% jailer/training officer Test 10/21/20 05:55 10/21/20 06:00 10/21/20 06:05 Glucose (Fingerstick) 142 mg/dL (70-99) Activated Partial Thromboplast Time 94 SEC (24-38) White Blood Count 6.5 x10^3/uL (4.0-11.0) Red Blood Count 2.97 x10^6/uL (4.30-5.70) Hemoglobin 9.2 g/dL (13.0-17.5) Hematocrit 27.6 % (39.0-53.0) Mean Corpuscular Volume 93 fL (79-100) Mean Corpuscular Hemoglobin 31 pg (25-35) Mean Corpuscular Hemoglobin Concent 34 g/dL (31-37) Red Cell Distribution Width 15.8 % (11.5-14.5) Platelet Count 243 x10^3/uL (140-400) Neutrophils (%) (Auto) 52 % (31-73) Lymphocytes (%) (Auto) 34 % (24-48) Monocytes (%) (Auto) 9 % (0-9) Eosinophils (%) (Auto) 5 % (0-3) Basophils (%) (Auto) 1 % (0-3) Neutrophils # (Auto) 3.4 x10^3/uL (1.8-7.7) Lymphocytes # (Auto) 2.2 x10^3/uL (1.0-4.8) Monocytes # (Auto) 0.6 x10^3/uL (0.0-1.1) Eosinophils # (Auto) 0.3 x10^3/uL (0.0-0.7) Basophils # (Auto) 0.0 x10^3/uL (0.0-0.2) Prothrombin Time 26.5 SEC (11.7-14.0) Prothromb Time International Ratio 2.5 (0.8-1.1) Sodium Level 138 mmol/L (136-145) Potassium Level 3.5 mmol/L (3.5-5.1) Chloride Level 100 mmol/L (98-107) Carbon Dioxide Level 32 mmol/L (21-32) Anion Gap 6 (6-14) Blood Urea Nitrogen 22 mg/dL (8-26) Creatinine 0.8 mg/dL (0.7-1.3) Estimated GFR (Cockcroft-Gault) 95.0 Glucose Level 158 mg/dL (70-99) Calcium Level 8.9 mg/dL (8.5-10.1) Medications Active Scripts Medications Dose Route/Sig Max Daily Dose Days Date Category Amiodarone Hcl 200 Mg Tablet 400 Mg PO DAILY 09/18/20 Rx [Warfarin Per Pharmacy] 1 EACH Each 1 Each MC PRN DAILY PRN 30 09/18/20 Rx Clopidogrel (Clopidogrel Bisulfate) 75 Mg Tablet 75 Mg PO DAILYWBKFT 09/18/20 Rx Glimepiride 4 Mg Tablet 1 Tab PO DAILY 09/13/20 Reported Furosemide 40 Mg Tablet 1 Tab PO BID 09/13/20 Reported Symbicort 160-4.5 Mcg Inhaler (Budesonide/Formoterol Fumarate) 10.2 Gm Hfa.aer.ad 1 Puff INH DAILY 09/13/20 Reported Losartan-Hctz 100-12.5 Mg Tab (Losartan/Hydrochlorothiazide) 1 Each Tablet 1 Tab PO DAILY 09/13/20 Reported Nitrofurantoin [place]-Mcr 100 Mg (Nitrofurantoin Monohyd/M-Cryst) 100 Mg Capsule 1 Cap PO BID 09/13/20 Reported Betamethasone Valerate 60 Ml Lotion 1 TP QHS 09/13/20 Reported Atorvastatin Calcium 40 Mg Tablet 1 Tab PO DAILY 09/13/20 Reported Diltiazem 24Hr Cd (Diltiazem HCl) 240 Mg Cap.er.24h 1 Cap PO DAILY 09/13/20 Reported Nystop (Nystatin) 60 Gm Powder 1 Sudheer TP BID 09/13/20 Reported Humalog (Insulin Lispro) 100 Unit/1 Ml Insuln.pen 0 Units SQ TIDWMEALS 30 08/06/18 Rx Duoneb 0.5-3(2.5) Mg/3 Ml (Albuterol/Ipratropium) 3 Ml Ampul.neb 3 Ml NEB RTQID 30 08/06/18 Rx Aspirin 325 Mg Tablet 325 Mg PO DAILYWBKFT 30 07/22/17 Rx Metoprolol Tartrate 25 Mg Tablet 25 Mg PO BID 30 07/22/17 Rx Montelukast Sodium Tablet (Montelukast Sodium) 10 Mg Tablet 10 Mg PO QHS 07/22/17 Rx Gabapentin 600 Mg Tablet 600 Mg PO BID 30 07/22/17 Rx Pepcid (Famotidine) 20 Mg Tablet 20 Mg PO BID 05/17/13 Reported Impression . 1. Acute on chronic respiratory failure secondary to multifactorial etiologies including hypoglycemic encephalopathy. No evidence of new stroke. 2. Possible sepsis--- on antibiotics 3. Hypoglycemia./ encephalopathy 4. The patient with prior history of cerebrovascular accident with left-sided weakness. 5. Underlying chronic obstructive pulmonary disease. 6. Morbid obesity. 7. Peripheral vascular disease. 8. Abnormal CT chest with bibasilar atelectasis. No significant mucus plugging. Tiny pleural effusion seen. 10/18 Procedure Performed: laparoscopic gastrostomy tube placement (specifically 24 F) Plan . Updated 10/21 Status post gastrostomy tube Continue AVAPS We will ask respiratory to consider trach shield trial to see if he has any apneic breathing. Not sure he was tried yesterday. If he does tolerate trach shield will check ABGs in 2 hours Long-term prognosis poor Discussed with social service, discharge planning in place once court appointed DPOA available Discussed with RN Updated 10/20 Status post gastrostomy tube Continue AVAPS We will ask respiratory to consider trach shield trial to see if he has any apneic breathing. Long-term prognosis poor Discussed with social service, discharge planning in place once court appointed DPOA available Discussed with RN Updated 10 19 Status post gastrostomy tube Continue AVAPS Long-term prognosis poor Discussed with social service, discharge planning in place updated 10/18 Nephrostomy tube today Spoke with Dr. Bobo Continue pressure support as tolerated updated 10/17 Continue pressure support during the day The a.m. for gastrostomy tube Discussed with RN updated 10/16 Continue pressure support during the day Continues current support Long-term prognosis poor CLINTON PALAFOX MD Oct 21, 2020 08:41
[2020-10-21] MEDS: CLOPIDOGREL BISULFATE 75 MG TABLET PO SCH (09:44)
[2020-10-21] MEDS: POTASSIUM BICARB 20 MEQ EFFERVESCENT TABLET. PEG SCH (09:44)
[2020-10-21] MEDS: ASPIRIN CHEWABLE 81 MG TABLET. PO SCH (09:44)
[2020-10-21] MEDS: METOPROLOL TART IMMED RELEASE 25 MG TABLET. PO SCH ×2 (09:44→19:52)
[2020-10-21] MEDS: AMIODARONE HCL 200 MG TABLET. PO SCH (09:45)
[2020-10-21] MEDS: PANTOPRAZOLE IV PUSH 40 MG VIAL. IVP SCH (09:45)
[2020-10-21] MEDS: FUROSEMIDE 40 MG/4 ML VIAL. IVP SCH (09:45)
[2020-10-21 11:00] VITALS: BP 100/67
--- NOTE | 2020-10-21 11:36 | NUR ---
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 Target range for this patient is: 2 -3 P: Warfarin dose: 6 mg Today at 1600 Bridge Therapy: Argatroban Therapeutic Next INR due IN AM Pharmacy anticoagulation service will continue to follow. BANDAR MAXWELL [facility], 10/21/20 [id number]
--- NOTE | 2020-10-21 12:56 | PDOC ---
[facility] [facility] PROGRESS NOTE Date of Service DOS: DATE: 10/21/20 TIME: 12:48 Chief Complaint Chief Complaint CC: Acute anemia Acute metabolic, infectious encephalopathy Acute respiratory failure Healthcare associated pneumonia Acute hypoglycemia Hypokalemia Elevated troponins Severe protein malnutrition Morbid obesity AAA, 4 cm, infrarenal History of diabetes mellitus type 2 History of dyslipidemia history of hypertension History of recent STEMI History of CAD History of peripheral artery disease History of JEANNE History of CVA History of paroxysmal atrial fibrillation Ischemic cardiomyopathy History of Present Illness History of Present Illness Mr Andrews is a 70-year-old male with a recent prolonged hospitalization for STEMI and respiratory failure for which she was treated with arterial thrombolysis for a right leg popliteal artery aneurysm and also had left heart cath with placement of a stent in the LAD and RCA comes in today after he was found obtunded at his long term facility. Apparently according to the nursing facility patient was in his usual state of health and he was conversational but then became altered. His blood glucose was found to be in the 30s. Glucose tabs and glucagon was given in route and his GCS reported at 6. Upon arrival patient's mental status did not improve and he was eventually intubated for airway protection. Of note EMS was bagging the patient through the nasal access. In the ED, patient was placed on a vent and pulmonology was consulted. Patient was also taken to the CT scanner for sanders scanning. Patient was started to wake up on the vent and sedation was ordered. 09/23: Patient examined at bedside. Intubated. Not on any sedation but unresponsive. Neurology consult in place. 09/24: Patient seen and examined at bedside. Remains intubated he is off sedation but still remains unresponsive. Planning for MRI brain in the morning. Further plan to be determined by MRI. 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 09/25: Afebrile, currently breathing on ventilator with FiO2 50%, PEEP 5. Had CODE BLUE in ICU this morning; received 2 rounds of CPR, epinephrine, and atropine with ROSC. MRI brain negative. Made DNR, and after discussion with Dr. Rubalcava he agrees. 09/26:: Afebrile. Still on vent, with FiO2 45%, PEEP 5. After discussion with Dr. Rubalcava yesterday, patient was made DNR. In the ED is likely a poor candidate for weaning trials may need trach in near future if no significant improvement. 09/27:: Afebrile. On vent with FiO2 40%, PEEP 5. Potassium 2.8 today, will replace. Warfarin has been resumed. Discussed with pharmacy, will resume aspirin and Plavix. May need tracheostomy by the end of the week if no improvement in mental status. 09/28:: Afebrile. On ventilator with FiO2 40%, PEEP 5. Warfarin has been r esumed; INR 1.3 today. Some morning labs still pending; hemoglobin yesterday 7.3, will continue to monitor. Continue IV cefepime and supportive care. 09/29: Afebrile. Breathing on vent with FiO2 40%, PEEP 5. INR 1.2 today; pharmacy to help with warfarin dosing. White count within normal range, renal function stable. Spoke with pharmacy about cefepime 1 g every 8 hours dosing; t his has been changed to cefepime 2 g every 8 hours. 09/30: Afebrile. Currently breathing on vent with FiO2 40%, PEEP 5. Continue antibiotics, cefepime 2 g every 8 hours. INR 1.4; continue warfarin dosing per pharmacy. Possible tracheostomy at some point. Critical care time 30 minutes reviewing charts, labs, examination, discussion with RN. 10/01: T-max 100.3 F. On ventilator with FiO2 40%, PEEP 5. Continue antibiotics, cefepime 2 g every 8 hours. INR 1.4, still subtherapeutic; continue warfarin dosing per pharmacy. Possible tracheostomy at some point. 10/02: No acute events overnight. Patient saturating 99% on vent settings of 10/450/40/5. Patient will likely need a trach and PEG at some point. We will hold warfarin and start 2 units PRBC transfusion. Patient's chart, labs, images were reviewed and discussed with RN 10/03: No acute events overnight. Patient sat 100% on minimal vent settings. No sedation at this point and patient is opening his eyes spontaneously. Not much response or spontaneous movements. Surgery has been consulted for tracheostomy. Patient will also likely need a PEG tube. 10/04: No acute events overnight. Patient saturating 90% on minimal vent settings. T-max 100.4 overnight. Plan for trach tomorrow with surgery. Patient's chart, labs, images were reviewed and discussed with RN 10/05: No acute events overnight. Patient saturating 99% on minimal vent settings. Plan for tracheostomy today. Consent is provided by authorization by 2 physicians due to patient having no close relatives or DPOA. Will resume heparin and warfarin bridging tomorrow after tracheostomy 10/07: No acute events overnight. Patient seen and examined bedside. On trach vent. Saturating 99%. Pending GI evaluation for possible PEG placement after discussing with cardiology whether to continue with Plavix. Possibly place PEG if patient is only on aspirin and stopping argatroban. 10/08: No acute events overnight. Patient continues to be on trach mechanical vent. Saturating 100%. Pending decision from GI whether to proceed with PEG placement depending on the type of anticoagulation patient will be on. 10/09: No overnight events. On trach with vent support 40% FiO2 PEEP of 5. Currently argatroban and propofol for minimal sedation. When sedation is weaned he has no meaningful movements but has pulled at his tracheostomy site. Unable to hold plavix due to recently placed stents. 10/10: Afebrile today. On trach with vent support 40% FiO2 PEEP of 5. Continue argatroban and changed to Aggrastat in anticipation of surgical consultation for potential laparoscopic PEG placement. INR 1.6. Hb greater than 9 no significant neurologic recovery today. 10/11: Afebrile. On trach with vent support 40% FiO2 PEEP of 5. INR 1.8. Not making meaningful eye contact. Labs otherwise stable. 10/12: Afebrile. Trach with vent support 40% FiO2 PEEP five O2 saturations 92%. INR 1.8, mag 1.8, Hb 8.4. Not following commands. Tentative plans for surgical PEG next week. 10/13: Afebrile. Trach with vent support 40% FiO2 PEEP 5. Eyes open, not tracking or following commands. Holding Plavix. On argatroban. 10/14: Afebrile. Trach with vent support 40% FiO2 PEEP of 5. Will open eyes intermittently not necessarily to voice. Good urine output. Labs stable. 10/15: Afebrile overnight. Trach with vent AC 40% fio2 PEEP 5. Had a very large bowel movement. Still not tracking. Hb 9, INR 1.7, glucose 144. Tentative plan for PEG 10/18/2020 CC time 30 minutes 10/16/20: Patient seen and examined in the ICU. He was resting and still on vent via trach. Has NG running via Dobhoff, feeding at 40cc/hr. AC/10/450/40% plus 5 PEEP. Discussed with RN. Chart reviewed. 10/17/20: Patient was seen and examined in the ICU today. Still on vent via trach at AC/10/450/40 plus 5 PEEP. While examined, patient was at 100% O2 saturation. Has SCDs on for DVT prophylaxis. Stauffer catheter in place. On IV argatroban. R subclavian triple lumen in place. Dobhoff running at 40cc/hr. Discussed with RN. Chart reviewed. 10/18/20: Patient seen and examined in ICU. His eyes are open. On vent via trach with settings that were recently changed to spontaneous respirations with FiO2 of 40 and 5 PEEP. Trach is clean and dry. Currently, oxygen saturation is at 100%. Stuaffer to bedside and rectal bag in place. Discussed with RN. Chart re viewed. 10/19/20: Patient was seen and examined in the ICU today. His eyes were open and he was resting. On BiPAP via trach AVAPS/10/450/40 plus 5 PEEP. Trach is clean and dry. Has SCDs for DVT prophylaxis. Patient has rectal bag, Stauffer to bedside, and NG tube in place. Discussed with RN. Chart reviewed. 10/20/20 No acute events overnight. Patient seen and examined bedside. Transferred from the ICU. Continues to be nonverbal and not following much commands. Opens eyes to voice. Currently on BiPAP via trach on AVAPS setting 10/450/40 PEEP of 5. Trach site is clear. No signs of infections. Patient's chart, labs, images were reviewed and discussed with RN 10/21/2020 No acute events overnight. Patient seen and examined bedside. Afebrile. Co ntinues to be nonverbal but opens eyes to voice. Currently on BiPAP. Patient's chart, labs, images were reviewed and discussed with RN. Vitals/I&O Vitals/I&O: Vital Signs Date Time Temp Pulse Resp B/P (MAP) Pulse Ox O2 Delivery O2 Flow Rate FiO2 10/21/20 11:36 99 Tracheal Collar 10.0 10/21/20 11:00 98.4 75 18 100/67 (78) 98.4 I & O 10/20/20 10/20/20 10/21/20 15:00 23:00 07:00 Intake Total 672 ml 500 ml 495.4 ml Output Total 900 ml 400 ml Balance 672 ml -400 ml 95.4 ml Physical Exam General: Alert, No acute distress Heart: Regular rate (SR), Other (distatne heart sounds) Lungs: Other (Tracheostomy) Abdomen: Soft, Other (g tube in place) Extremities: No cyanosis, Other (2-3+ bilateral LE pitting edema) Skin: No rashes, No significant lesion Labs Labs: Laboratory Tests Test 10/20/20 17:46 10/20/20 18:32 10/20/20 23:24 10/21/20 05:55 O2 Saturation 96 % (92-99) Arterial Blood pH 7.48 (7.35-7.45) Arterial Blood pCO2 at Patient Temp 33 mmHg (35-46) Arterial Blood pO2 at Patient Temp 85 mmHg (65-108) Arterial Blood HCO3 24 mmol/L (21-28) Arterial Blood Base Excess 1 mmol/L (-3-3) FiO2 40% network systems integrator Glucose (Fingerstick) 125 mg/dL (70-99) 140 mg/dL (70-99) 142 mg/dL (70-99) Test 10/21/20 06:00 10/21/20 06:05 Activated Partial Thromboplast Time 94 SEC (24-38) White Blood Count 6.5 x10^3/uL (4.0-11.0) Red Blood Count 2.97 x10^6/uL (4.30-5.70) Hemoglobin 9.2 g/dL (13.0-17.5) Hematocrit 27.6 % (39.0-53.0) Mean Corpuscular Volume 93 fL (79-100) Mean Corpuscular Hemoglobin 31 pg (25-35) Mean Corpuscular Hemoglobin Concent 34 g/dL (31-37) Red Cell Distribution Width 15.8 % (11.5-14.5) Platelet Count 243 x10^3/uL (140-400) Neutrophils (%) (Auto) 52 % (31-73) Lymphocytes (%) (Auto) 34 % (24-48) Monocytes (%) (Auto) 9 % (0-9) Eosinophils (%) (Auto) 5 % (0-3) Basophils (%) (Auto) 1 % (0-3) Neutrophils # (Auto) 3.4 x10^3/uL (1.8-7.7) Lymphocytes # (Auto) 2.2 x10^3/uL (1.0-4.8) Monocytes # (Auto) 0.6 x10^3/uL (0.0-1.1) Eosinophils # (Auto) 0.3 x10^3/uL (0.0-0.7) Basophils # (Auto) 0.0 x10^3/uL (0.0-0.2) Prothrombin Time 26.5 SEC (11.7-14.0) Prothromb Time International Ratio 2.5 (0.8-1.1) Sodium Level 138 mmol/L (136-145) Potassium Level 3.5 mmol/L (3.5-5.1) Chloride Level 100 mmol/L (98-107) Carbon Dioxide Level 32 mmol/L (21-32) Anion Gap 6 (6-14) Blood Urea Nitrogen 22 mg/dL (8-26) Creatinine 0.8 mg/dL (0.7-1.3) Estimated GFR (Cockcroft-Gault) 95.0 Glucose Level 158 mg/dL (70-99) Calcium Level 8.9 mg/dL (8.5-10.1) Assessment and Plan Assessmemt and Plan Problems Medical Problems: (1) NSTEMI (non-ST elevated myocardial infarction) Status: Acute (2) Obtundation Status: Acute (3) Respiratory arrest Status: Acute Comment Review of Relevant I have reviewed the following items denise (where applicable) has been applied. Medications: Current Medications Medications (Trade) Dose Ordered Sig/Dru Route PRN Reason Start Time Stop Time Status Last Admin Dose Admin Warfarin Sodium (Coumadin) 5 mg 1X WARF ONCE PO 10/20/20 16:00 10/20/20 16:01 DC 10/20/20 19:10 Argatroban 50 mg/ Sodium Chloride 50 ml @ 0 mls/hr CONT PRN IV PER PROTOCOL 10/20/20 13:15 10/20/20 22:11 Justifications for Admission Other Justification Hypoglycemia and altered mental status. FUAD CUTLER MD Oct 21, 2020 12:56
[2020-10-21 15:00] VITALS: BP 101/54
[2020-10-21] MEDS ORDERED: WARFARIN 3 MG TABLET. PO ONE (16:00)
[2020-10-21 19:11] VITALS: BP 102/60
[2020-10-21] MEDS: ATORVASTATIN CALCIUM 40 MG TABLET. PO SCH (19:52)
[2020-10-21] MEDS: ARGATROBAN 50 MG in IV NORMAL SALINE 50ML 50 ML IV PRN (19:52)
[2020-10-21 22:38] VITALS: BP 129/73
[2020-10-22 02:01] VITALS: BP 111/60
[2020-10-22 04:41] LABS: CALCIUM 8.6 mg/dL (8.5-10.1); CREATININE 0.9 mg/dL (0.7-1.3); GFR 82.9; POTASSIUM 3.6 mmol/L (3.5-5.1)
[2020-10-22 04:59] LABS: BASO # 0.1 x10^3/uL (0.0-0.2); BASO % 1 % (0-3); EOS # 0.4 x10^3/uL (0.0-0.7); EOS % 6 % (0-3); HEMATOCRIT 27.5 % (39.0-53.0); HEMOGLOBIN 9.2 g/dL (13.0-17.5); LYMPH # 2.1 x10^3/uL (1.0-4.8); LYMPH % 33 % (24-48); MEAN CORPUSCULAR HEMOGLOBIN 31 pg (25-35); MEAN CORPUSCULAR HGB CONC 34 g/dL (31-37); MEAN CORPUSCULAR VOLUME 93 fL (79-100); MONO # 0.5 x10^3/uL (0.0-1.1); MONO % 8 % (0-9); NEUT # 3.2 x10^3/uL (1.8-7.7); NEUT % 51 % (31-73); PLATELET COUNT 242 x10^3/uL (140-400); RED BLOOD COUNT 2.95 x10^6/uL (4.30-5.70); RED CELL DISTRIBUTION WIDTH 16.1 % (11.5-14.5); WHITE BLOOD COUNT 6.2 x10^3/uL (4.0-11.0)
[2020-10-22 06:00] VITALS: BP 120/65
[2020-10-22] MEDS: INSULIN LISPRO 300 UNITS/3 ML VIAL. SQ SCH ×4 (06:00→17:25)
[2020-10-22] MEDS: FUROSEMIDE 40 MG/4 ML VIAL. IVP SCH (09:22)
[2020-10-22] MEDS: AMIODARONE HCL 200 MG TABLET. PO SCH (09:22)
[2020-10-22] MEDS: CLOPIDOGREL BISULFATE 75 MG TABLET PO SCH (09:22)
[2020-10-22] MEDS: ASPIRIN CHEWABLE 81 MG TABLET. PO SCH (09:22)
[2020-10-22] MEDS: METOPROLOL TART IMMED RELEASE 25 MG TABLET. PO SCH ×2 (09:22→20:09)
[2020-10-22] MEDS: POTASSIUM BICARB 20 MEQ EFFERVESCENT TABLET. PEG SCH (09:23)
[2020-10-22] MEDS: PANTOPRAZOLE IV PUSH 40 MG VIAL. IVP SCH (09:23)
[2020-10-22 09:29] LABS: PROTHROMBIN TIME PATIENT 25.5 SEC (11.7-14.0)
[2020-10-22] MEDS: ARGATROBAN 50 MG in IV NORMAL SALINE 50ML 50 ML IV PRN ×2 (10:00→22:16)
[2020-10-22 10:30] VITALS: BP 139/81
--- NOTE | 2020-10-22 10:49 | PDOC ---
PULMONARY PROGRESS NOTES DATE: 10/22/20 TIME: 10:48 Subjective Patient remains on trach shield most of the day. He was rested on AVAPS mode last night. No overnight events Vitals Vital Signs Date Time Temp Pulse Resp B/P (MAP) Pulse Ox O2 Delivery O2 Flow Rate FiO2 10/22/20 09:22 84 120/65 10/22/20 07:23 100 Ventilator 10/22/20 06:00 98.7 20 10.0 98.7 General: No acute distress HEENT: Other (nc at perrl nose clear orally intubated neck no lad no thyromegaly) Lungs: Other (Tracheostomy) Cardiovascular: S1, S2 Abdomen: Soft, Non-tender, Other (Obese) Extremities: Other (1+ edema) Skin: Warm Labs Laboratory Tests Test 10/20/20 11:27 10/20/20 17:46 10/20/20 18:32 10/20/20 23:24 Glucose (Fingerstick) 120 mg/dL (70-99) 125 mg/dL (70-99) 140 mg/dL (70-99) O2 Saturation 96 % (92-99) Arterial Blood pH 7.48 (7.35-7.45) Arterial Blood pCO2 at Patient Temp 33 mmHg (35-46) Arterial Blood pO2 at Patient Temp 85 mmHg (65-108) Arterial Blood HCO3 24 mmol/L (21-28) Arterial Blood Base Excess 1 mmol/L (-3-3) FiO2 40% wool merchant Test 10/21/20 05:55 10/21/20 06:00 10/21/20 06:05 10/21/20 18:10 Glucose (Fingerstick) 142 mg/dL (70-99) 158 mg/dL (70-99) Activated Partial Thromboplast Time 94 SEC (24-38) White Blood Count 6.5 x10^3/uL (4.0-11.0) Red Blood Count 2.97 x10^6/uL (4.30-5.70) Hemoglobin 9.2 g/dL (13.0-17.5) Hematocrit 27.6 % (39.0-53.0) Mean Corpuscular Volume 93 fL (79-100) Mean Corpuscular Hemoglobin 31 pg (25-35) Mean Corpuscular Hemoglobin Concent 34 g/dL (31-37) Red Cell Distribution Width 15.8 % (11.5-14.5) Platelet Count 243 x10^3/uL (140-400) Neutrophils (%) (Auto) 52 % (31-73) Lymphocytes (%) (Auto) 34 % (24-48) Monocytes (%) (Auto) 9 % (0-9) Eosinophils (%) (Auto) 5 % (0-3) Basophils (%) (Auto) 1 % (0-3) Neutrophils # (Auto) 3.4 x10^3/uL (1.8-7.7) Lymphocytes # (Auto) 2.2 x10^3/uL (1.0-4.8) Monocytes # (Auto) 0.6 x10^3/uL (0.0-1.1) Eosinophils # (Auto) 0.3 x10^3/uL (0.0-0.7) Basophils # (Auto) 0.0 x10^3/uL (0.0-0.2) Prothrombin Time 26.5 SEC (11.7-14.0) Prothromb Time International Ratio 2.5 (0.8-1.1) Sodium Level 138 mmol/L (136-145) Potassium Level 3.5 mmol/L (3.5-5.1) Chloride Level 100 mmol/L (98-107) Carbon Dioxide Level 32 mmol/L (21-32) Anion Gap 6 (6-14) Blood Urea Nitrogen 22 mg/dL (8-26) Creatinine 0.8 mg/dL (0.7-1.3) Estimated GFR (Cockcroft-Gault) 95.0 Glucose Level 158 mg/dL (70-99) Calcium Level 8.9 mg/dL (8.5-10.1) Test 10/21/20 23:55 10/22/20 04:10 10/22/20 06:07 Glucose (Fingerstick) 160 mg/dL (70-99) 155 mg/dL (70-99) White Blood Count 6.2 x10^3/uL (4.0-11.0) Red Blood Count 2.95 x10^6/uL (4.30-5.70) Hemoglobin 9.2 g/dL (13.0-17.5) Hematocrit 27.5 % (39.0-53.0) Mean Corpuscular Volume 93 fL (79-100) Mean Corpuscular Hemoglobin 31 pg (25-35) Mean Corpuscular Hemoglobin Concent 34 g/dL (31-37) Red Cell Distribution Width 16.1 % (11.5-14.5) Platelet Count 242 x10^3/uL (140-400) Neutrophils (%) (Auto) 51 % (31-73) Lymphocytes (%) (Auto) 33 % (24-48) Monocytes (%) (Auto) 8 % (0-9) Eosinophils (%) (Auto) 6 % (0-3) Basophils (%) (Auto) 1 % (0-3) Neutrophils # (Auto) 3.2 x10^3/uL (1.8-7.7) Lymphocytes # (Auto) 2.1 x10^3/uL (1.0-4.8) Monocytes # (Auto) 0.5 x10^3/uL (0.0-1.1) Eosinophils # (Auto) 0.4 x10^3/uL (0.0-0.7) Basophils # (Auto) 0.1 x10^3/uL (0.0-0.2) Prothrombin Time 25.5 SEC (11.7-14.0) Prothromb Time International Ratio 2.4 (0.8-1.1) Activated Partial Thromboplast Time 93 SEC (24-38) Sodium Level 136 mmol/L (136-145) Potassium Level 3.6 mmol/L (3.5-5.1) Chloride Level 98 mmol/L (98-107) Carbon Dioxide Level 34 mmol/L (21-32) Anion Gap 4 (6-14) Blood Urea Nitrogen 24 mg/dL (8-26) Creatinine 0.9 mg/dL (0.7-1.3) Estimated GFR (Cockcroft-Gault) 82.9 Glucose Level 177 mg/dL (70-99) Calcium Level 8.6 mg/dL (8.5-10.1) Laboratory Tests Test 10/21/20 18:10 10/21/20 23:55 10/22/20 04:10 10/22/20 06:07 Glucose (Fingerstick) 158 mg/dL (70-99) 160 mg/dL (70-99) 155 mg/dL (70-99) White Blood Count 6.2 x10^3/uL (4.0-11.0) Red Blood Count 2.95 x10^6/uL (4.30-5.70) Hemoglobin 9.2 g/dL (13.0-17.5) Hematocrit 27.5 % (39.0-53.0) Mean Corpuscular Volume 93 fL (79-100) Mean Corpuscular Hemoglobin 31 pg (25-35) Mean Corpuscular Hemoglobin Concent 34 g/dL (31-37) Red Cell Distribution Width 16.1 % (11.5-14.5) Platelet Count 242 x10^3/uL (140-400) Neutrophils (%) (Auto) 51 % (31-73) Lymphocytes (%) (Auto) 33 % (24-48) Monocytes (%) (Auto) 8 % (0-9) Eosinophils (%) (Auto) 6 % (0-3) Basophils (%) (Auto) 1 % (0-3) Neutrophils # (Auto) 3.2 x10^3/uL (1.8-7.7) Lymphocytes # (Auto) 2.1 x10^3/uL (1.0-4.8) Monocytes # (Auto) 0.5 x10^3/uL (0.0-1.1) Eosinophils # (Auto) 0.4 x10^3/uL (0.0-0.7) Basophils # (Auto) 0.1 x10^3/uL (0.0-0.2) Prothrombin Time 25.5 SEC (11.7-14.0) Prothromb Time International Ratio 2.4 (0.8-1.1) Activated Partial Thromboplast Time 93 SEC (24-38) Sodium Level 136 mmol/L (136-145) Potassium Level 3.6 mmol/L (3.5-5.1) Chloride Level 98 mmol/L (98-107) Carbon Dioxide Level 34 mmol/L (21-32) Anion Gap 4 (6-14) Blood Urea Nitrogen 24 mg/dL (8-26) Creatinine 0.9 mg/dL (0.7-1.3) Estimated GFR (Cockcroft-Gault) 82.9 Glucose Level 177 mg/dL (70-99) Calcium Level 8.6 mg/dL (8.5-10.1) Medications Active Scripts Medications Dose Route/Sig Max Daily Dose Days Date Category Amiodarone Hcl 200 Mg Tablet 400 Mg PO DAILY 09/18/20 Rx [Warfarin Per Pharmacy] 1 EACH Each 1 Each MC PRN DAILY PRN 30 09/18/20 Rx Clopidogrel (Clopidogrel Bisulfate) 75 Mg Tablet 75 Mg PO DAILYWBKFT 90 09/18/20 Rx Glimepiride 4 Mg Tablet 1 Tab PO DAILY 09/13/20 Reported Furosemide 40 Mg Tablet 1 Tab PO BID 09/13/20 Reported Symbicort 160-4.5 Mcg Inhaler (Budesonide/Formoterol Fumarate) 10.2 Gm Hfa.aer.ad 1 Puff INH DAILY 09/13/20 Reported Losartan-Hctz 100-12.5 Mg Tab (Losartan/Hydrochlorothiazide) 1 Each Tablet 1 Tab PO DAILY 09/13/20 Reported Nitrofurantoin [place]-Mcr 100 Mg (Nitrofurantoin Monohyd/M-Cryst) 100 Mg Capsule 1 Cap PO BID 09/13/20 Reported Betamethasone Valerate 60 Ml Lotion 1 TP QHS 09/13/20 Reported Atorvastatin Calcium 40 Mg Tablet 1 Tab PO DAILY 09/13/20 Reported Diltiazem 24Hr Cd (Diltiazem HCl) 240 Mg Cap.er.24h 1 Cap PO DAILY 09/13/20 Reported Nystop (Nystatin) 60 Gm Powder 1 Sudheer TP BID 09/13/20 Reported Humalog (Insulin Lispro) 100 Unit/1 Ml Insuln.pen 0 Units SQ TIDWMEALS 30 08/06/18 Rx Duoneb 0.5-3(2.5) Mg/3 Ml (Albuterol/Ipratropium) 3 Ml Ampul.neb 3 Ml NEB RTQID 08/06/18 Rx Aspirin 325 Mg Tablet 325 Mg PO DAILYWBKFT 30 07/22/17 Rx Metoprolol Tartrate 25 Mg Tablet 25 Mg PO BID 30 07/22/17 Rx Montelukast Sodium Tablet (Montelukast Sodium) 10 Mg Tablet 10 Mg PO QHS 07/22/17 Rx Gabapentin 600 Mg Tablet 600 Mg PO BID 30 07/22/17 Rx Pepcid (Famotidine) 20 Mg Tablet 20 Mg PO BID 05/17/13 Reported Impression . 1. Acute on chronic respiratory failure secondary to multifactorial etiologies including hypoglycemic encephalopathy. No evidence of new stroke. 2. Possible sepsis--- on antibiotics 3. Hypoglycemia./ encephalopathy 4. The patient with prior history of cerebrovascular accident with left-sided weakness. 5. Underlying chronic obstructive pulmonary disease. 6. Morbid obesity. 7. Peripheral vascular disease. 8. Abnormal CT chest with bibasilar atelectasis. No significant mucus plugging. Tiny pleural effusion seen. 10/18 Procedure Performed: laparoscopic gastrostomy tube placement (specifically 24 F) Plan . Updated 10/22 Patient did well on trach shield most of the day. Patient was rested on AVAPS last night. RT blood gases shows no worsening hypercapnia while on trach shield. No apneic breathing reported. I discussed with respiratory therapist. We will continue continue trach shield for 24 hours as tolerated. Status post gastrostomy tube Long-term prognosis poor Discussed with social service, discharge planning in place once court appointed DPOA available Discussed with RN Updated 10/21 Status post gastrostomy tube Continue AVAPS We will ask respiratory to consider trach shield trial to see if he has any apneic breathing. Not sure he was tried yesterday. If he does tolerate trach shield will check ABGs in 2 hours Long-term prognosis poor Discussed with social service, discharge planning in place once court appointed DPOA available Discussed with RN Updated 10/20 Status post gastrostomy tube Continue AVAPS We will ask respiratory to consider trach shield trial to see if he has any apneic breathing. Long-term prognosis poor Discussed with social service, discharge planning in place once court appointed DPOA available Discussed with RN Updated 10 19 Status post gastrostomy tube Continue AVAPS Long-term prognosis poor Discussed with social service, discharge planning in place updated 10/18 Nephrostomy tube today Spoke with Dr. Bobo Continue pressure support as tolerated updated 10/17 Continue pressure support during the day The a.m. for gastrostomy tube Discussed with RN updated 10/16 Continue pressure support during the day Continues current support Long-term prognosis poor CLINTON PALAFOX MD Oct 22, 2020 10:49
--- NOTE | 2020-10-22 11:52 | PDOC ---
[facility] PROGRESS NOTE Date of Service DOS: DATE: 10/22/20 TIME: 11:51 Chief Complaint Chief Complaint CC: Acute anemia Acute metabolic, infectious encephalopathy Acute respiratory failure Healthcare associated pneumonia Acute hypoglycemia Hypokalemia Elevated troponins Severe protein malnutrition Morbid obesity AAA, 4 cm, infrarenal History of diabetes mellitus type 2 History of dyslipidemia history of hypertension History of recent STEMI History of CAD History of peripheral artery disease History of JEANNE History of CVA History of paroxysmal atrial fibrillation Ischemic cardiomyopathy History of Present Illness History of Present Illness Mr Andrews is a 70-year-old male with a recent prolonged hospitalization for STEMI and respiratory failure for which she was treated with arterial thrombolysis for a right leg popliteal artery aneurysm and also had left heart cath with placement of a stent in the LAD and RCA comes in today after he was found obtunded at his intermediate facility. Apparently according to the nursing facility patient was in his usual state of health and he was conversational but then became altered. His blood glucose was found to be in the 30s. Glucose tabs and glucagon was given in route and his GCS reported at 6. Upon arrival patient's mental status did not improve and he was eventually intubated for airway protection. Of note EMS was bagging the patient through the nasal access. In the ED, patient was placed on a vent and pulmonology was consulted. Patient was also taken to the CT scanner for sanders scanning. Patient was started to wake up on the vent and sedation was ordered. 09/23: Patient examined at bedside. Intubated. Not on any sedation but unresponsive. Neurology consult in place. 09/24: Patient seen and examined at bedside. Remains intubated he is off sedation but still remains unresponsive. Planning for MRI brain in the morning. Further plan to be determined by MRI. 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 09/25: Afebrile, currently breathing on ventilator with FiO2 50%, PEEP 5. Had CODE BLUE in ICU this morning; received 2 rounds of CPR, epinephrine, and atropine with ROSC. MRI brain negative. Made DNR, and after discussion with Dr. Rubalcava he agrees. 09/26:: Afebrile. Still on vent, with FiO2 45%, PEEP 5. After discussion with Dr. Rubalcava yesterday, patient was made DNR. In the ED is likely a poor candidate for weaning trials may need trach in near future if no significant improvement. 09/27:: Afebrile. On vent with FiO2 40%, PEEP 5. Potassium 2.8 today, will replace. Warfarin has been resumed. Discussed with pharmacy, will resume aspirin and Plavix. May need tracheostomy by the end of the week if no improvement in mental status. 09/28:: Afebrile. On ventilator with FiO2 40%, PEEP 5. Warfarin has been r esumed; INR 1.3 today. Some morning labs still pending; hemoglobin yesterday 7.3, will continue to monitor. Continue IV cefepime and supportive care. 09/29: Afebrile. Breathing on vent with FiO2 40%, PEEP 5. INR 1.2 today; pharmacy to help with warfarin dosing. White count within normal range, renal function stable. Spoke with pharmacy about cefepime 1 g every 8 hours dosing; t his has been changed to cefepime 2 g every 8 hours. 09/30: Afebrile. Currently breathing on vent with FiO2 40%, PEEP 5. Continue antibiotics, cefepime 2 g every 8 hours. INR 1.4; continue warfarin dosing per pharmacy. Possible tracheostomy at some point. Critical care time 30 minutes reviewing charts, labs, examination, discussion with RN. 10/01: T-max 100.3 F. On ventilator with FiO2 40%, PEEP 5. Continue antibiotics, cefepime 2 g every 8 hours. INR 1.4, still subtherapeutic; continue warfarin dosing per pharmacy. Possible tracheostomy at some point. 10/02: No acute events overnight. Patient saturating 99% on vent settings of 10/450/40/5. Patient will likely need a trach and PEG at some point. We will hold warfarin and start 2 units PRBC transfusion. Patient's chart, labs, images were reviewed and discussed with RN 10/03: No acute events overnight. Patient sat 100% on minimal vent settings. No sedation at this point and patient is opening his eyes spontaneously. Not much response or spontaneous movements. Surgery has been consulted for tracheostomy. Patient will also likely need a PEG tube. 10/04: No acute events overnight. Patient saturating 90% on minimal vent settings. T-max 100.4 overnight. Plan for trach tomorrow with surgery. Patient's chart, labs, images were reviewed and discussed with RN 10/05: No acute events overnight. Patient saturating 99% on minimal vent settings. Plan for tracheostomy today. Consent is provided by authorization by 2 physicians due to patient having no close relatives or DPOA. Will resume heparin and warfarin bridging tomorrow after tracheostomy 10/07: No acute events overnight. Patient seen and examined bedside. On trach vent. Saturating 99%. Pending GI evaluation for possible PEG placement after discussing with cardiology whether to continue with Plavix. Possibly place PEG if patient is only on aspirin and stopping argatroban. 10/08: No acute events overnight. Patient continues to be on trach mechanical vent. Saturating 100%. Pending decision from GI whether to proceed with PEG placement depending on the type of anticoagulation patient will be on. 10/09: No overnight events. On trach with vent support 40% FiO2 PEEP of 5. Currently argatroban and propofol for minimal sedation. When sedation is weaned he has no meaningful movements but has pulled at his tracheostomy site. Unable to hold plavix due to recently placed stents. 10/10: Afebrile today. On trach with vent support 40% FiO2 PEEP of 5. Continue argatroban and changed to Aggrastat in anticipation of surgical consultation for potential laparoscopic PEG placement. INR 1.6. Hb greater than 9 no significant neurologic recovery today. 10/11: Afebrile. On trach with vent support 40% FiO2 PEEP of 5. INR 1.8. Not making meaningful eye contact. Labs otherwise stable. 10/12: Afebrile. Trach with vent support 40% FiO2 PEEP five O2 saturations 92%. INR 1.8, mag 1.8, Hb 8.4. Not following commands. Tentative plans for surgical PEG next week. 10/13: Afebrile. Trach with vent support 40% FiO2 PEEP 5. Eyes open, not tracking or following commands. Holding Plavix. On argatroban. 10/14: Afebrile. Trach with vent support 40% FiO2 PEEP of 5. Will open eyes intermittently not necessarily to voice. Good urine output. Labs stable. 10/15: Afebrile overnight. Trach with vent AC 40% fio2 PEEP 5. Had a very large bowel movement. Still not tracking. Hb 9, INR 1.7, glucose 144. Tentative plan for PEG 10/18/2020 CC time 30 minutes 10/16/20: Patient seen and examined in the ICU. He was resting and still on vent via trach. Has NG running via Dobhoff, feeding at 40cc/hr. AC/10/450/40% plus 5 PEEP. Discussed with RN. Chart reviewed. 10/17/20: Patient was seen and examined in the ICU today. Still on vent via trach at AC/10/450/40 plus 5 PEEP. While examined, patient was at 100% O2 saturation. Has SCDs on for DVT prophylaxis. Stauffer catheter in place. On IV argatroban. R subclavian triple lumen in place. Dobhoff running at 40cc/hr. Discussed with RN. Chart reviewed. 10/18/20: Patient seen and examined in ICU. His eyes are open. On vent via trach with settings that were recently changed to spontaneous respirations with FiO2 of 40 and 5 PEEP. Trach is clean and dry. Currently, oxygen saturation is at 100%. Stauffer to bedside and rectal bag in place. Discussed with RN. Chart re viewed. 10/19/20: Patient was seen and examined in the ICU today. His eyes were open and he was resting. On BiPAP via trach AVAPS/10/450/40 plus 5 PEEP. Trach is clean and dry. Has SCDs for DVT prophylaxis. Patient has rectal bag, Stauffer to bedside, and NG tube in place. Discussed with RN. Chart reviewed. 10/20/20 No acute events overnight. Patient seen and examined bedside. Transferred from the ICU. Continues to be nonverbal and not following much commands. Opens eyes to voice. Currently on BiPAP via trach on AVAPS setting 10/450/40 PEEP of 5. Trach site is clear. No signs of infections. Patient's chart, labs, images were reviewed and discussed with RN 10/21/2020 No acute events overnight. Patient seen and examined bedside. Afebrile. Co ntinues to be nonverbal but opens eyes to voice. Currently on BiPAP. Patient's chart, labs, images were reviewed and discussed with RN. 10/22/2020 No acute events overnight. Patient seen examined bedside. Continue with argatroban until warfarin goal INR of 4 and maintenance goal of 2-3. Please see bow machine operator note. Pending appointing a legal guardian. Patient's chart, labs, images were reviewed and discussed with RN Vitals/I&O Vitals/I&O: Vital Signs Date Time Temp Pulse Resp B/P (MAP) Pulse Ox O2 Delivery O2 Flow Rate FiO2 10/22/20 09:22 84 120/65 10/22/20 07:23 100 Ventilator 10/22/20 06:00 98.7 20 10.0 98.7 I & O 10/21/20 10/21/20 10/22/20 15:00 23:00 07:00 Intake Total 130 ml 1040 ml 590 ml Output Total 800 ml 275 ml Balance 130 ml 240 ml 315 ml Physical Exam General: Alert, No acute distress Heart: Regular rate (SR), Other (distatne heart sounds) Lungs: Other (Tracheostomy) Abdomen: Soft, Other (g tube in place) Extremities: No cyanosis, Other (2-3+ bilateral LE pitting edema) Skin: No rashes, No significant lesion Labs Labs: Laboratory Tests Test 10/21/20 18:10 10/21/20 23:55 10/22/20 04:10 10/22/20 06:07 Glucose (Fingerstick) 158 mg/dL (70-99) 160 mg/dL (70-99) 155 mg/dL (70-99) White Blood Count 6.2 x10^3/uL (4.0-11.0) Red Blood Count 2.95 x10^6/uL (4.30-5.70) Hemoglobin 9.2 g/dL (13.0-17.5) Hematocrit 27.5 % (39.0-53.0) Mean Corpuscular Volume 93 fL (79-100) Mean Corpuscular Hemoglobin 31 pg (25-35) Mean Corpuscular Hemoglobin Concent 34 g/dL (31-37) Red Cell Distribution Width 16.1 % (11.5-14.5) Platelet Count 242 x10^3/uL (140-400) Neutrophils (%) (Auto) 51 % (31-73) Lymphocytes (%) (Auto) 33 % (24-48) Monocytes (%) (Auto) 8 % (0-9) Eosinophils (%) (Auto) 6 % (0-3) Basophils (%) (Auto) 1 % (0-3) Neutrophils # (Auto) 3.2 x10^3/uL (1.8-7.7) Lymphocytes # (Auto) 2.1 x10^3/uL (1.0-4.8) Monocytes # (Auto) 0.5 x10^3/uL (0.0-1.1) Eosinophils # (Auto) 0.4 x10^3/uL (0.0-0.7) Basophils # (Auto) 0.1 x10^3/uL (0.0-0.2) Prothrombin Time 25.5 SEC (11.7-14.0) Prothromb Time International Ratio 2.4 (0.8-1.1) Activated Partial Thromboplast Time 93 SEC (24-38) Sodium Level 136 mmol/L (136-145) Potassium Level 3.6 mmol/L (3.5-5.1) Chloride Level 98 mmol/L (98-107) Carbon Dioxide Level 34 mmol/L (21-32) Anion Gap 4 (6-14) Blood Urea Nitrogen 24 mg/dL (8-26) Creatinine 0.9 mg/dL (0.7-1.3) Estimated GFR (Cockcroft-Gault) 82.9 Glucose Level 177 mg/dL (70-99) Calcium Level 8.6 mg/dL (8.5-10.1) Test 10/22/20 11:33 Glucose (Fingerstick) 160 mg/dL (70-99) Assessment and Plan Assessmemt and Plan Problems Medical Problems: (1) NSTEMI (non-ST elevated myocardial infarction) Status: Acute (2) Obtundation Status: Acute (3) Respiratory arrest Status: Acute Comment Review of Relevant I have reviewed the following items denise (where applicable) has been applied. Medications: Current Medications Medications (Trade) Dose Ordered Sig/Dru Route PRN Reason Start Time Stop Time Status Last Admin Dose Admin Warfarin Sodium (Coumadin) 6 mg 1X WARF ONCE PO 10/21/20 16:00 10/21/20 16:01 DC 10/21/20 17:56 Justifications for Admission Other Justification Hypoglycemia and altered mental status. FUAD CUTLER MD Oct 22, 2020 11:52
--- NOTE | 2020-10-22 13:04 | NUR ---
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 Target range for this patient is: 2 -3 P: Warfarin dose: 7.5 mg Today at 1600 Bridge Therapy: Argatroban Therapeutic Next INR due IN AM Pharmacy anticoagulation service will continue to follow. BANDAR MAXWELL, [facility] [place], 10/22/20 [id number]
[2020-10-22 15:10] VITALS: BP 121/73
[2020-10-22] MEDS ORDERED: WARFARIN 7.5 MG TABLET. PO ONE (16:00)
[2020-10-22 19:35] VITALS: BP 125/63
[2020-10-22] MEDS: ATORVASTATIN CALCIUM 40 MG TABLET. PO SCH (20:08)
[2020-10-22 23:07] VITALS: BP 126/73
[2020-10-23 02:33] VITALS: BP 102/77
[2020-10-23] MEDS: INSULIN LISPRO 300 UNITS/3 ML VIAL. SQ SCH ×4 (06:00→18:00)
[2020-10-23 06:19] LABS: CALCIUM 8.8 mg/dL (8.5-10.1); CREATININE 0.8 mg/dL (0.7-1.3); POTASSIUM 4.1 mmol/L (3.5-5.1)
[2020-10-23 06:32] LABS: PROTHROMBIN TIME PATIENT 28.4 SEC (11.7-14.0)
[2020-10-23 07:00] VITALS: BP 98/67
[2020-10-23 07:07] LABS: BASO # 0.1 x10^3/uL (0.0-0.2); BASO % 1 % (0-3); EOS # 0.4 x10^3/uL (0.0-0.7); EOS % 6 % (0-3); HEMATOCRIT 27.8 % (39.0-53.0); HEMOGLOBIN 9.4 g/dL (13.0-17.5); LYMPH # 2.5 x10^3/uL (1.0-4.8); LYMPH % 36 % (24-48); MEAN CORPUSCULAR HEMOGLOBIN 32 pg (25-35); MEAN CORPUSCULAR HGB CONC 34 g/dL (31-37); MEAN CORPUSCULAR VOLUME 94 fL (79-100); MONO # 0.6 x10^3/uL (0.0-1.1); MONO % 9 % (0-9); NEUT # 3.4 x10^3/uL (1.8-7.7); NEUT % 49 % (31-73); PLATELET COUNT 241 x10^3/uL (140-400); RED BLOOD COUNT 2.97 x10^6/uL (4.30-5.70); WHITE BLOOD COUNT 6.9 x10^3/uL (4.0-11.0)
--- NOTE | 2020-10-23 08:37 | NUR ---
Pharmacy Warfarin Dosing Note S:Pharmacy consulted to assist with anticoagulation therapy started with target INR: 2 -3 O:DEMETRICE HOWE is a 70 year old M with Atrial Fibrillation; DVT/PE; HIT LABS: Last INR: 2.7 Last HGB: 9.4 Last HCT: 27.8 Last PLT: 241 Last dose of 7.5 mg given on 10/22/20 at 1745 Vitamin K given: N Drug Interaction Changes: Same Interacting Drug Ongoing Drug Interactions: amiodarone A:INR of 2.7 is within desired range. Target range for this patient is: 2 -3 P: Warfarin dose: 6 mg Today at 1600 Bridge Therapy: Argatroban Therapeutic until INR 4 Next INR due 10/24/20 Pharmacy anticoagulation service will continue to follow. NICK JONES RPH, 10/23/20 0826
[2020-10-23] MEDS: ASPIRIN CHEWABLE 81 MG TABLET. PO SCH (08:51)
[2020-10-23] MEDS: CLOPIDOGREL BISULFATE 75 MG TABLET PO SCH (08:52)
[2020-10-23] MEDS: AMIODARONE HCL 200 MG TABLET. PO SCH (08:52)
[2020-10-23] MEDS: METOPROLOL TART IMMED RELEASE 25 MG TABLET. PO SCH (08:53)
[2020-10-23] MEDS: POTASSIUM BICARB 20 MEQ EFFERVESCENT TABLET. PEG SCH (08:56)
[2020-10-23] MEDS: PANTOPRAZOLE IV PUSH 40 MG VIAL. IVP SCH (08:56)
[2020-10-23] MEDS: FUROSEMIDE 40 MG/4 ML VIAL. IVP SCH (08:56)
[2020-10-23] MEDS: ACETAMINOPHEN 650 MG/20.3 ML SOLUTION. PEG PRN (08:57)
--- NOTE | 2020-10-23 10:29 | PDOC ---
PROGRESS NOTES Date of Service: DATE: 10/23/20 TIME: 10:29 Chief Complaint Chief Complaint impression Acute anemia Acute metabolic, infectious encephalopathy Acute respiratory failure Healthcare associated pneumonia Acute hypoglycemia Hypokalemia Elevated troponins Severe protein malnutrition Morbid obesity AAA, 4 cm, infrarenal History of diabetes mellitus type 2 History of dyslipidemia history of hypertension History of recent STEMI History of CAD History of peripheral artery disease History of JEANNE History of CVA History of paroxysmal atrial fibrillation Ischemic cardiomyopathy History of Present Illness History of Present Illness Mr Andrews is a 70-year-old male with a recent prolonged hospitalization for STEMI and respiratory failure for which she was treated with arterial thrombolysis for a right leg popliteal artery aneurysm and also had left heart cath with placement of a stent in the LAD and RCA comes in today after he was found obtunded at his halfway facility. Apparently according to the nursing facility patient was in his usual state of health and he was conversational but then became altered. His blood glucose was found to be in the 30s. Glucose tabs and glucagon was given in route and his GCS reported at 6. Upon arrival patient's mental status did not improve and he was eventually intubated for airway protection. Of note EMS was bagging the patient through the nasal access. In the ED, patient was placed on a vent and pulmonology was consulted. Patient was also taken to the CT scanner for sanders scanning. Patient was started to wake up on the vent and sedation was ordered. 09/23: Patient examined at bedside. Intubated. Not on any sedation but unresponsive. Neurology consult in place. 09/24: Patient seen and examined at bedside. Remains intubated he is off sedation but still remains unresponsive. Planning for MRI brain in the morning. Further plan to be determined by MRI. 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 09/25: Afebrile, currently breathing on ventilator with FiO2 50%, PEEP 5. Had CODE BLUE in ICU this morning; received 2 rounds of CPR, epinephrine, and atropine with ROSC. MRI brain negative. Made DNR, and after discussion with Dr. Rubalcava he agrees. 09/26:: Afebrile. Still on vent, with FiO2 45%, PEEP 5. After discussion with Dr. Rubalcava yesterday, patient was made DNR. In the ED is likely a poor candidate for weaning trials may need trach in near future if no significant improvement. 09/27:: Afebrile. On vent with FiO2 40%, PEEP 5. Potassium 2.8 today, will replace. Warfarin has been resumed. Discussed with pharmacy, will resume aspirin and Plavix. May need tracheostomy by the end of the week if no improvement in mental status. 09/28:: Afebrile. On ventilator with FiO2 40%, PEEP 5. Warfarin has been res umed; INR 1.3 today. Some morning labs still pending; hemoglobin yesterday 7.3, will continue to monitor. Continue IV cefepime and supportive care. 09/29: Afebrile. Breathing on vent with FiO2 40%, PEEP 5. INR 1.2 today; pharmacy to help with warfarin dosing. White count within normal range, renal function stable. Spoke with pharmacy about cefepime 1 g every 8 hours dosing; this has been changed to cefepime 2 g every 8 hours. 09/30: Afebrile. Currently breathing on vent with FiO2 40%, PEEP 5. Continue antibiotics, cefepime 2 g every 8 hours. INR 1.4; continue warfarin dosing per pharmacy. Possible tracheostomy at some point. Critical care time 30 minutes reviewing charts, labs, examination, discussion with RN. 10/01: T-max 100.3 F. On ventilator with FiO2 40%, PEEP 5. Continue antibiotics, cefepime 2 g every 8 hours. INR 1.4, still subtherapeutic; continue warfarin dosing per pharmacy. Possible tracheostomy at some point. 10/02: No acute events overnight. Patient saturating 99% on vent settings of 1 0/450/40/5. Patient will likely need a trach and PEG at some point. We will hold warfarin and start 2 units PRBC transfusion. Patient's chart, labs, images were reviewed and discussed with RN 10/03: No acute events overnight. Patient sat 100% on minimal vent settings. No sedation at this point and patient is opening his eyes spontaneously. Not much response or spontaneous movements. Surgery has been consulted for tracheostomy. Patient will also likely need a PEG tube. 10/04: No acute events overnight. Patient saturating 90% on minimal vent settings. T-max 100.4 overnight. Plan for trach tomorrow with surgery. Patient's chart, labs, images were reviewed and discussed with RN 10/05: No acute events overnight. Patient saturating 99% on minimal vent settings. Plan for tracheostomy today. Consent is provided by authorization by 2 physicians due to patient having no close relatives or DPOA. Will resume heparin and warfarin bridging tomorrow after tracheostomy 10/07: No acute events overnight. Patient seen and examined bedside. On trach vent. Saturating 99%. Pending GI evaluation for possible PEG placement after discussing with cardiology whether to continue with Plavix. Possibly place PEG if patient is only on aspirin and stopping argatroban. 10/08: No acute events overnight. Patient continues to be on trach mechanical vent. Saturating 100%. Pending decision from GI whether to proceed with PEG placement depending on the type of anticoagulation patient will be on. 10/09: No overnight events. On trach with vent support 40% FiO2 PEEP of 5. Currently argatroban and propofol for minimal sedation. When sedation is weaned he has no meaningful movements but has pulled at his tracheostomy site. Unable to hold plavix due to recently placed stents. 10/10: Afebrile today. On trach with vent support 40% FiO2 PEEP of 5. Continue argatroban and changed to Aggrastat in anticipation of surgical consultation for potential laparoscopic PEG placement. INR 1.6. Hb greater than 9 no significant neurologic recovery today. 10/11: Afebrile. On trach with vent support 40% FiO2 PEEP of 5. INR 1.8. Not making meaningful eye contact. Labs otherwise stable. 10/12: Afebrile. Trach with vent support 40% FiO2 PEEP five O2 saturations 92%. INR 1.8, mag 1.8, Hb 8.4. Not following commands. Tentative plans for surgical PEG next week. 10/13: Afebrile. Trach with vent support 40% FiO2 PEEP 5. Eyes open, not tracking or following commands. Holding Plavix. On argatroban. 10/14: Afebrile. Trach with vent support 40% FiO2 PEEP of 5. Will open eyes intermittently not necessarily to voice. Good urine output. Labs stable. 10/15: Afebrile overnight. Trach with vent AC 40% fio2 PEEP 5. Had a very large bowel movement. Still not tracking. Hb 9, INR 1.7, glucose 144. Tentative plan for PEG 10/18/2020 CC time 30 minutes 9/6/21: Patient seen and examined in the ICU. He was resting and still on vent via trach. Has NG running via Dobhoff, feeding at 40cc/hr. AC/10/450/40% plus 5 PEEP. Discussed with RN. Chart reviewed. 10/17/20: Patient was seen and examined in the ICU today. Still on vent via trach at AC/10/450/40 plus 5 PEEP. While examined, patient was at 100% O2 saturation. Has SCDs on for DVT prophylaxis. Stauffer catheter in place. On IV argatroban. R subclavian triple lumen in place. Dobhoff running at 40cc/hr. Discussed with RN. Chart reviewed. 10/18/20: Patient seen and examined in ICU. His eyes are open. On vent via trach with settings that were recently changed to spontaneous respirations with FiO2 of 40 and 5 PEEP. Trach is clean and dry. Currently, oxygen saturation is at 100%. Stauffer to bedside and rectal bag in place. Discussed with RN. Chart revi ewed. 10/19/20: Patient was seen and examined in the ICU today. His eyes were open and he was resting. On BiPAP via trach AVAPS/10/450/40 plus 5 PEEP. Trach is clean and dry. Has SCDs for DVT prophylaxis. Patient has rectal bag, Stauffer to bedside, and NG tube in place. Discussed with RN. Chart reviewed. 10/20/20 No acute events overnight. Patient seen and examined bedside. Transferred from the ICU. Continues to be nonverbal and not following much commands. Opens eyes to voice. Currently on BiPAP via trach on AVAPS setting 10/450/40 PEEP of 5. Trach site is clear. No signs of infections. Patient's chart, labs, images were reviewed and discussed with RN 10/21/2020 No acute events overnight. Patient seen and examined bedside. Afebrile. Cont inues to be nonverbal but opens eyes to voice. Currently on BiPAP. Patient's chart, labs, images were reviewed and discussed with RN. 10/22/2020 No acute events overnight. Patient seen examined bedside. Continue with argatroban until warfarin goal INR of 4 and maintenance goal of 2-3. Please see rn plasma center note. Pending appointing a legal guardian. Patient's chart, labs, images were reviewed and discussed with RN 10/23/2020 laparoscopic gastrostomy tube placement (specifically 24 F) Oct discharge planning in place once court appointed DPOA available Acute anemia Acute metabolic, infectious encephalopathy Acute respiratory failure Healthcare associated pneumonia Acute hypoglycemia Hypokalemia Elevated troponins Severe protein malnutrition Morbid obesity AAA, 4 cm, infrarenal History of diabetes mellitus type 2 History of dyslipidemia history of hypertension Patient seen examined bedside. argatroban until warfarin goal INR of 4 and maintenance goal of 2-3. Pending appointing a legal guardian. Patient's chart, labs, images were reviewed and discussed with KARY Cardenas Enteric tube with metallic tip in the left upper quadrant likely in the stomach. Vitals Vitals Vital Signs Date Time Temp Pulse Resp B/P (MAP) Pulse Ox O2 Delivery O2 Flow Rate FiO2 10/23/20 08:53 77 98/67 10/23/20 08:34 100 Ventilator 10/23/20 07:00 99.8 12 15.0 99.8 Physical Exam General: Alert, Cooperative, No acute distress Heart: Regular rate (SR), Other (distatne heart sounds) Lungs: Other (Tracheostomy) Abdomen: Soft, Other (g tube in place) Extremities: No cyanosis, Other (2-3+ bilateral LE pitting edema) Skin: No rashes, No significant lesion Labs LABS Date: Oct 18, 2020 Pre-Op Diagnosis: Respiratory failure Post-Op Diagnosis: same Procedure Performed: laparoscopic gastrostomy tube placement (specifically 24 F) Surgeon: John Henning Anesthesia Type: GETA plus local Exam: Abdomen one view INDICATION: Dobbhoff placement TECHNIQUE: Supine view the abdomen Comparisons: 10/05/2020 FINDINGS: Enteric tube with metallic tip in the left upper quadrant likely in the stomach. Strandy opacities at the left lung base. No pleural effusion. IMPRESSION: Lines and tubes described above. Electronically signed by: Bonifacio Olguin MD (10/15/2020 11:44 PM) [facility] DICTATED and SIGNED BY: BONIFACIO OLGUIN MD DATE: 10/15/20 [id number] 0 talk about your own wishes for healthcare in case youre ever not able to tell your loved ones or healthcare team what your wishes are. If you became really sick tomorrow, would your loved ones or healthcare team know what your wishes were? Here are some examples of different sets of goals and health care directives for your conversations: My wish is to use all medical therapies including resuscitation (such as CPR) and artificial life-sustaining treatments (such as machines and medicine) in an intensive care unit, to keep me alive if at all possible. My wish is to live as long as possible, but I dont want attempts to bring me back to life if my heart and breathing stop. I would like full medical care but without using resuscitation or artificial life-sustaining intensive treatments, if these are unlikely to make me live longer or restore me to a certain quality of life. I will accept treatments that try to fix medical problems, but if Im not getting better or going to have a certain quality of l vahid, I would want to switch to focusing only on my comfort and letting my happen naturally. My wish is for healthcare to focus on my comfort and lessen suffering. I would like medical care that focuses only on my quality of life and that allows me to naturally. Consider: What does a good quality of life mean for me? For many people, it is the ability to live independently and tell their own story. I may define it differently. Under what circumstances would I not want to be kept alive by medical treatments, resuscitation, or intensive care? What kind of changes to my health or life might make me change my mind? If I clearly am facing the last chapter of my life, how do I want the story to end? Who do I want to speak for me if I cant speak for myself? Do they understand my preferences? Are they willing to assume the role of my Durable Power of Spot Cleaner? Can I change my Goals of Care Designation? Yes, your Goals of Care Designation can be changed at any time. It should be reviewed if: your health condition changes your circumstances change (such as new understanding) you are transferred or admitted to another healthcare setting dpoa review, to pt portal 19 min and question review Laboratory Tests Test 10/22/20 11:33 10/22/20 17:49 10/22/20 23:47 10/23/20 05:55 Glucose (Fingerstick) 160 mg/dL (70-99) 147 mg/dL (70-99) 141 mg/dL (70-99) White Blood Count 6.9 x10^3/uL (4.0-11.0) Red Blood Count 2.97 x10^6/uL (4.30-5.70) Hemoglobin 9.4 g/dL (13.0-17.5) Hematocrit 27.8 % (39.0-53.0) Mean Corpuscular Volume 94 fL (79-100) Mean Corpuscular Hemoglobin 32 pg (25-35) Mean Corpuscular Hemoglobin Concent 34 g/dL (31-37) Red Cell Distribution Width 16.0 % (11.5-14.5) Platelet Count 241 x10^3/uL (140-400) Neutrophils (%) (Auto) 49 % (31-73) Lymphocytes (%) (Auto) 36 % (24-48) Monocytes (%) (Auto) 9 % (0-9) Eosinophils (%) (Auto) 6 % (0-3) Basophils (%) (Auto) 1 % (0-3) Neutrophils # (Auto) 3.4 x10^3/uL (1.8-7.7) Lymphocytes # (Auto) 2.5 x10^3/uL (1.0-4.8) Monocytes # (Auto) 0.6 x10^3/uL (0.0-1.1) Eosinophils # (Auto) 0.4 x10^3/uL (0.0-0.7) Basophils # (Auto) 0.1 x10^3/uL (0.0-0.2) Prothrombin Time 28.4 SEC (11.7-14.0) Prothromb Time International Ratio 2.7 (0.8-1.1) Activated Partial Thromboplast Time 89 SEC (24-38) Sodium Level 135 mmol/L (136-145) Potassium Level 4.1 mmol/L (3.5-5.1) Chloride Level 97 mmol/L (98-107) Carbon Dioxide Level 33 mmol/L (21-32) Anion Gap 5 (6-14) Blood Urea Nitrogen 22 mg/dL (8-26) Creatinine 0.8 mg/dL (0.7-1.3) Estimated GFR (Cockcroft-Gault) 95.0 Glucose Level 156 mg/dL (70-99) Calcium Level 8.8 mg/dL (8.5-10.1) Assessment and Plan Assessmemt and Plan Problems Medical Problems: (1) NSTEMI (non-ST elevated myocardial infarction) Status: Acute (2) Obtundation Status: Acute (3) Respiratory arrest Status: Acute Comment Review of Relevant I have reviewed the following items denise (where applicable) has been applied. Labs Laboratory Tests Test 10/21/20 18:10 10/21/20 23:55 10/22/20 04:10 10/22/20 06:07 Glucose (Fingerstick) 158 mg/dL (70-99) 160 mg/dL (70-99) 155 mg/dL (70-99) White Blood Count 6.2 x10^3/uL (4.0-11.0) Red Blood Count 2.95 x10^6/uL (4.30-5.70) Hemoglobin 9.2 g/dL (13.0-17.5) Hematocrit 27.5 % (39.0-53.0) Mean Corpuscular Volume 93 fL (79-100) Mean Corpuscular Hemoglobin 31 pg (25-35) Mean Corpuscular Hemoglobin Concent 34 g/dL (31-37) Red Cell Distribution Width 16.1 % (11.5-14.5) Platelet Count 242 x10^3/uL (140-400) Neutrophils (%) (Auto) 51 % (31-73) Lymphocytes (%) (Auto) 33 % (24-48) Monocytes (%) (Auto) 8 % (0-9) Eosinophils (%) (Auto) 6 % (0-3) Basophils (%) (Auto) 1 % (0-3) Neutrophils # (Auto) 3.2 x10^3/uL (1.8-7.7) Lymphocytes # (Auto) 2.1 x10^3/uL (1.0-4.8) Monocytes # (Auto) 0.5 x10^3/uL (0.0-1.1) Eosinophils # (Auto) 0.4 x10^3/uL (0.0-0.7) Basophils # (Auto) 0.1 x10^3/uL (0.0-0.2) Prothrombin Time 25.5 SEC (11.7-14.0) Prothromb Time International Ratio 2.4 (0.8-1.1) Activated Partial Thromboplast Time 93 SEC (24-38) Sodium Level 136 mmol/L (136-145) Potassium Level 3.6 mmol/L (3.5-5.1) Chloride Level 98 mmol/L (98-107) Carbon Dioxide Level 34 mmol/L (21-32) Anion Gap 4 (6-14) Blood Urea Nitrogen 24 mg/dL (8-26) Creatinine 0.9 mg/dL (0.7-1.3) Estimated GFR (Cockcroft-Gault) 82.9 Glucose Level 177 mg/dL (70-99) Calcium Level 8.6 mg/dL (8.5-10.1) Test 10/22/20 11:33 10/22/20 17:49 10/22/20 23:47 10/23/20 05:55 Glucose (Fingerstick) 160 mg/dL (70-99) 147 mg/dL (70-99) 141 mg/dL (70-99) White Blood Count 6.9 x10^3/uL (4.0-11.0) Red Blood Count 2.97 x10^6/uL (4.30-5.70) Hemoglobin 9.4 g/dL (13.0-17.5) Hematocrit 27.8 % (39.0-53.0) Mean Corpuscular Volume 94 fL (79-100) Mean Corpuscular Hemoglobin 32 pg (25-35) Mean Corpuscular Hemoglobin Concent 34 g/dL (31-37) Red Cell Distribution Width 16.0 % (11.5-14.5) Platelet Count 241 x10^3/uL (140-400) Neutrophils (%) (Auto) 49 % (31-73) Lymphocytes (%) (Auto) 36 % (24-48) Monocytes (%) (Auto) 9 % (0-9) Eosinophils (%) (Auto) 6 % (0-3) Basophils (%) (Auto) 1 % (0-3) Neutrophils # (Auto) 3.4 x10^3/uL (1.8-7.7) Lymphocytes # (Auto) 2.5 x10^3/uL (1.0-4.8) Monocytes # (Auto) 0.6 x10^3/uL (0.0-1.1) Eosinophils # (Auto) 0.4 x10^3/uL (0.0-0.7) Basophils # (Auto) 0.1 x10^3/uL (0.0-0.2) Prothrombin Time 28.4 SEC (11.7-14.0) Prothromb Time International Ratio 2.7 (0.8-1.1) Activated Partial Thromboplast Time 89 SEC (24-38) Sodium Level 135 mmol/L (136-145) Potassium Level 4.1 mmol/L (3.5-5.1) Chloride Level 97 mmol/L (98-107) Carbon Dioxide Level 33 mmol/L (21-32) Anion Gap 5 (6-14) Blood Urea Nitrogen 22 mg/dL (8-26) Creatinine 0.8 mg/dL (0.7-1.3) Estimated GFR (Cockcroft-Gault) 95.0 Glucose Level 156 mg/dL (70-99) Calcium Level 8.8 mg/dL (8.5-10.1) Laboratory Tests Test 10/22/20 11:33 10/22/20 17:49 10/22/20 23:47 10/23/20 05:55 Glucose (Fingerstick) 160 mg/dL (70-99) 147 mg/dL (70-99) 141 mg/dL (70-99) White Blood Count 6.9 x10^3/uL (4.0-11.0) Red Blood Count 2.97 x10^6/uL (4.30-5.70) Hemoglobin 9.4 g/dL (13.0-17.5) Hematocrit 27.8 % (39.0-53.0) Mean Corpuscular Volume 94 fL (79-100) Mean Corpuscular Hemoglobin 32 pg (25-35) Mean Corpuscular Hemoglobin Concent 34 g/dL (31-37) Red Cell Distribution Width 16.0 % (11.5-14.5) Platelet Count 241 x10^3/uL (140-400) Neutrophils (%) (Auto) 49 % (31-73) Lymphocytes (%) (Auto) 36 % (24-48) Monocytes (%) (Auto) 9 % (0-9) Eosinophils (%) (Auto) 6 % (0-3) Basophils (%) (Auto) 1 % (0-3) Neutrophils # (Auto) 3.4 x10^3/uL (1.8-7.7) Lymphocytes # (Auto) 2.5 x10^3/uL (1.0-4.8) Monocytes # (Auto) 0.6 x10^3/uL (0.0-1.1) Eosinophils # (Auto) 0.4 x10^3/uL (0.0-0.7) Basophils # (Auto) 0.1 x10^3/uL (0.0-0.2) Prothrombin Time 28.4 SEC (11.7-14.0) Prothromb Time International Ratio 2.7 (0.8-1.1) Activated Partial Thromboplast Time 89 SEC (24-38) Sodium Level 135 mmol/L (136-145) Potassium Level 4.1 mmol/L (3.5-5.1) Chloride Level 97 mmol/L (98-107) Carbon Dioxide Level 33 mmol/L (21-32) Anion Gap 5 (6-14) Blood Urea Nitrogen 22 mg/dL (8-26) Creatinine 0.8 mg/dL (0.7-1.3) Estimated GFR (Cockcroft-Gault) 95.0 Glucose Level 156 mg/dL (70-99) Calcium Level 8.8 mg/dL (8.5-10.1) Medications Current Medications Fentanyl Citrate 30 ml @ 0 mls/hr CONT PRN IV SEE PROTOCOL; Start 09/22/20 at 09:45; Stop 10/13/20 at 09:24; Status DC Propofol 100 ml @ 0 mls/hr CONT PRN IV PER PROTOCOL Last administered on 09/22/20at 10:30; Start 09/22/20 at 09:45; Stop 09/26/20 at 20:12; Status DC Fentanyl Citrate (Fentanyl 2ml Vial) 25 mcg PRN Q1HR PRN IV SEE COMMENTS; Start 09/22/20 at 09:45 Fentanyl Citrate (Fentanyl 2ml Vial) 50 mcg PRN Q1HR PRN IV SEE COMMENTS Last administered on 10/03/20at 01:22; Start 09/22/20 at 09:45 Chlorhexidine Gluconate (Peridex) 15 ml BID MM ; Start 09/22/20 at 10:00; Stop 09/22/20 at 19:54; Status DC Midazolam HCl (Versed) 2 mg 1X ONCE IV ; Start 09/22/20 at 10:30; Stop 09/22/20 at 10:31; Status DC Iohexol (Omnipaque 300 Mg/ml) 75 ml 1X ONCE IV Last administered on 09/22/20at 11:06; Start 09/22/20 at 10:45; Stop 09/22/20 at 10:46; Status DC Info (CONTRAST GIVEN -- Rx MONITORING) 1 each PRN DAILY PRN MC SEE COMMENTS; Start 09/22/20 at 10:45; Stop 09/24/20 at 10:44; Status DC Potassium Chloride/Water 100 ml @ 100 mls/hr Q1H IV Last administered on 09/22/20at 20:27; Start 09/22/20 at 15:00; Stop 09/22/20 at 18:59; Status DC Cefepime HCl (Maxipime) 1 gm Q8HRS IVP Last administered on 09/29/20at 05:52; Start 09/22/20 at 14:00; Stop 09/29/20 at 10:32; Status DC Sennosides (Senna) 17.2 mg PRN BID PRN PO CONSTIPATION; Start 09/22/20 at 14:00 Docusate Sodium (Colace) 100 mg PRN DAILY PRN PO HARD STOOLS; Start 09/22/20 at 14:00; Stop 09/22/20 at 14:00; Status DC Ondansetron HCl (Zofran) 4 mg PRN Q6HRS PRN IVP NAUSEA/VOMITING, 1ST CHOICE; Start 09/22/20 at 14:00 Insulin Human Lispro (HumaLOG) 0-7 UNITS Q6HRS SQ Last administered on 10/18/20at 00:44; Start 09/22/20 at 18:00 Dextrose (Dextrose 50%-Water Syringe) 12.5 gm PRN Q15MIN PRN IV SEE COMMENTS Last administered on 09/22/20at 17:47; Start 09/22/20 at 14:00 Dextrose/Sodium Chloride 1,000 ml @ 50 mls/hr Q20H IV Last administered on 10/12at 11:04; Start 09/22/20 at 14:00; Stop 10/13/20 at 09:24; Status DC Acetaminophen (Tylenol) 650 mg PRN Q4HRS PRN PO TEMP OVER 100.4F OR MILD PAIN Last administered on 09/23/20at 00:20; Start 09/22/20 at 14:00; Stop 09/23/20 at 16:24; Status DC Enoxaparin Sodium (Lovenox 40mg Syringe) 40 mg Q24H SQ ; Start 09/22/20 at 14:00; Status UNV Pantoprazole Sodium (PROTONIX VIAL for IV PUSH) 40 mg DAILY IVP Last administered on 10/23/20at 08:56; Start 09/23/20 at 09:00 Prochlorperazine Edisylate (Compazine) 10 mg PRN Q6HRS PRN IV NAUSEA/VOMITING, 2ND CHOICE; Start 09/22/20 at 14:00 Etomidate (Amidate) 20 mg STK-MED ONCE IV ; Start 09/22/20 at 17:46; Stop 09/22/20 at 17:46; Status DC Rocuronium [place] (Zemuron) 50 mg STK-MED ONCE .ROUTE ; Start 09/22/20 at 17: 46; Stop 09/22/20 at 17:47; Status DC Norepinephrine Bitartrate 8 mg/ Dextrose 258 ml @ 21.769 mls/ hr CONT PRN IV PER PROTOCOL Last administered on 09/24/20at 13:20; Start 09/22/20 at 18:15; Stop 10/13/20 at 09:24; Status DC Potassium Chloride/Water 100 ml @ 100 mls/hr Q1H IV Last administered on 09/23/20at 14:30; Start 09/23/20 at 07:00; Stop 09/23/20 at 14:59; Status DC Acetaminophen (Tylenol) 650 mg PRN Q6HRS PRN PEG MILD PAIN / TEMP > 100.3'F Last administered on 10/23/20at 08:57; Start 09/23/20 at 16:30 Warfarin Sodium (Coumadin Per Pharmacy) 1 each PRN DAILY PRN MC SEE COMMENTS Last administered on 10/01/20at 12:32; Start 09/24/20 at 12:30; Stop 10/02/20 at 05:55; Status DC Warfarin Sodium (Coumadin) 5 mg 1X WARF ONCE PO Last administered on 09/24/20at 17:42; Start 09/24/20 at 16:00; Stop 09/24/20 at 16:01; Status DC Warfarin Sodium (Coumadin - No Dose Today) 1 each 1X WARF ONCE MC ; Start 09/25/20 at 16:00; Stop 09/25/20 at 16:01; Status DC Warfarin Sodium (Coumadin) 1 mg 1X WARF ONCE PO Last administered on 09/26/20at 16:00; Start 09/26/20 at 16:00; Stop 09/26/20 at 16:01; Status DC Propofol 100 ml @ 3.174 mls/ hr CONT PRN IV PER PROTOCOL Last administered on 10/09/20at 04:43; Start 09/26/20 at 20:15; Stop 10/13/20 at 09:24; Status DC Atropine Sulfate (ATROPINE 1mg SYRINGE) 1 mg STK-MED ONCE .ROUTE ; Start 09/25/20 at 10:00; Stop 09/27/20 at 08:20; Status DC Epinephrine HCl (EPINEPHrine SYRINGE) 1 mg STK-MED ONCE .ROUTE ; Start 09/25/20 at 10:00; Stop 09/27/20 at 08:20; Status DC Warfarin Sodium (Coumadin) 2 mg 1X WARF ONCE PO Last administered on 09/27/20at 17:53; Start 09/27/20 at 16:00; Stop 09/27/20 at 16:01; Status DC Aspirin (Aspirin Chewable) 81 mg DAILYWBKFT PO Last administered on 10/06/20at 11:39; Start 09/27/20 at 09:30; Stop 10/06/20 at 16:23; Status DC Clopidogrel Bisulfate (Plavix) 75 mg DAILYWBKFT PO Last administered on 10/09/20at 09:24; Start 09/27/20 at 09:30; Stop 10/09/20 at 17:03; Status DC Potassium Chloride/Water 100 ml @ 100 mls/hr Q1H IV Last administered on at 12:45; Start 09/27/20 at 11:30; Stop 09/27/20 at 13:29; Status DC Warfarin Sodium (Coumadin) 3 mg 1X WARF ONCE PO Last administered on 09/28/20at 18:18; Start 09/28/20 at 16:00; Stop 09/28/20 at 16:01; Status DC Cefepime HCl (Maxipime) 2 gm Q8HRS IVP Last administered on 10/20/20at 05:36; Start 09/29/20 at 14:00; Stop 10/20/20 at 13:23; Status DC Warfarin Sodium (Coumadin) 3 mg 1X WARF ONCE PO Last administered on 09/29/20at 16:55; Start 09/29/20 at 16:00; Stop 09/29/20 at 16:01; Status DC Warfarin Sodium (Coumadin) 3 mg 1X WARF ONCE PO Last administered on 09/30/20at 16:00; Start 09/30/20 at 16:00; Stop 09/30/20 at 16:01; Status DC Warfarin Sodium (Coumadin) 5 mg 1X WARF ONCE PO Last administered on 10/01/20at 16:35; Start 10/01/20 at 16:00; Stop 10/01/20 at 16:01; Status DC Multi-Ingred Cream/Lotion/Oil/ Oint (Artificial Tears Eye Ointment) 1 sudheer PRN Q1HR PRN OU DRY EYE Last administered on 10/03/20at 12:24; Start 10/02/20 at 12:45 Fentanyl Citrate (Fentanyl 2ml Vial) 25 mcg PRN Q5MIN PRN IVP MILD PAIN 1-3; Start 10/05/20 at 06:00; Stop 10/06/20 at 05:59; Status DC Fentanyl Citrate (Fentanyl 2ml Vial) 50 mcg PRN Q5MIN PRN IVP MODERATE PAIN 4- 6; Start 10/05/20 at 06:00; Stop 10/06/20 at 05:59; Status DC Morphine Sulfate (Morphine Sulfate) 1 mg PRN Q10MIN PRN IVP SEVERE PAIN 7-10; Start 10/05/20 at 06:00; Stop 10/06/20 at 05:59; Status UNV Ringer's Solution 1,000 ml @ 30 mls/hr Q24H IV ; Start 10/05/20 at 06:00; Stop 10/05/20 at 17:59; Status DC Hydromorphone HCl (Dilaudid) 0.5 mg PRN Q10MIN PRN IVP SEVERE PAIN 7-10, 2nd CHOICE; Start 10/05/20 at 06:00; Stop 10/06/20 at 05:59; Status UNV Prochlorperazine Edisylate (Compazine) 5 mg PACU PRN PRN IVP NAUSEA, MRX1; Start 10/05/20 at 06:00; Stop 10/06/20 at 05:59; Status DC Bupivacaine HCl/ Epinephrine Bitart (Sensorcain-Epi 0.5%-1:547182 Mpf) 30 ml STK-MED ONCE .ROUTE Last administered on 10/05/20at 10:09; Start 10/05/20 at 07:12; Stop 10/05/20 at 07:12; Status DC Cellulose (Surgicel Fibrillar 1x2) 1 each STK-MED ONCE .ROUTE Last administered on 10/05/20at 10:30; Start 10/05/20 at 07:12; Stop 10/05/20 at 07:12; Status DC Rocuronium [place] (Zemuron) 50 mg STK-MED ONCE .ROUTE ; Start 10/05/20 at 09:06; Stop 10/05/20 at 09:06; Status DC Rocuronium [place] (Zemuron) 50 mg STK-MED ONCE .ROUTE ; Start 10/05/20 at 10:10; Stop 10/05/20 at 10:10; Status DC Warfarin Sodium (Coumadin Per Pharmacy) 1 each PRN DAILY PRN MC SEE COMMENTS Last administered on 10/06/20at 09:32; Start 10/05/20 at 14:00; Stop 10/06/20 at 16:23; Status DC Argatroban (Argatroban Per Pharmacy) 1 each PRN DAILY PRN MC SEE COMMENTS Last administered on 10/13/20at 16:34; Start 10/05/20 at 14:00 Argatroban 50 mg/ Sodium Chloride 50 ml @ 6.48 mls/hr CONT PRN IV ADJUST PER PTT; Start 10/05/20 at 14:00; Stop 10/05/20 at 13:59; Status DC Argatroban 50 mg/ Sodium Chloride 50 ml @ 6.48 mls/hr CONT PRN IV ADJUST PER PTT; Start 10/06/20 at 00:00; Status Cancel Warfarin Sodium (Coumadin) 5 mg 1X WARF ONCE PO Last administered on 10/05/20at 21:23; Start 10/05/20 at 16:00; Stop 10/05/20 at 16:01; Status DC Argatroban 50 mg/ Sodium Chloride 50 ml @ 0 mls/hr CONT PRN IV PER PROTOCOL Last administered on 10/19/20at 22:13; Start 10/06/20 at 09:00; Stop 10/20/20 at 13:02; Status DC Warfarin Sodium (Coumadin) 5 mg 1X WARF ONCE PO ; Start 10/06/20 at 16:00; Stop 10/06/20 at 16:01; Status Cancel Amiodarone HCl (Cordarone) 400 mg DAILY PO Last administered on 10/23/20at 08:52; Start 10/06/20 at 10:00 Atorvastatin Calcium (Lipitor) 40 mg QHS PO Last administered on 10/22/20at 20:08; Start 10/06/20 at 21:00 Metoprolol Tartrate (Lopressor) 25 mg BID PO Last administered on 10/23/20 08:53; Start 10/06/20 at 10:00 Furosemide (Lasix) 40 mg DAILY IVP Last administered on 10/23/20 08:56; Start 10/06/20 at 10:00 Potassium Bicarbonate (Potassium Effervescent Tablet) 20 meq DAILY PEG Last administered on 10/23/20at 08:56; Start 10/06/20 at 10:00 Tirofiban/Sodium Chloride 100 ml @ 0 mls/hr CONT PRN IV PER PROTOCOL Last administered on 10/11/20at 14:11; Start 10/09/20 at 17:00; Stop 10/11/20 at 20:21; Status DC Albumin Human 100 ml @ 100 mls/hr 1X ONCE IV Last administered on 10/12/20at 15:22; Start 10/12/20 at 14:00; Stop 10/12/20 at 14:59; Status DC Furosemide (Lasix) 40 mg 1X ONCE IVP Last administered on 10/12/20at 15:22; Start 10/12/20 at 15:00; Stop 10/12/20 at 15:01; Status DC Aspirin (Aspirin Chewable) 81 mg 1X ONCE PO Last administered on 10/13/20at 12:25; Start 10/13/20 at 10:30; Stop 10/13/20 at 10:31; Status DC Aspirin (Aspirin Chewable) 81 mg DAILYWBKFT PO Last administered on 10/23/20at 08:51; Start 10/14/20 at 08:00 Fentanyl Citrate (Fentanyl 2ml Vial) 25 mcg PRN Q5MIN PRN IVP MILD PAIN 1-3; Start 10/18/20 at 06:00; Stop 10/18/20 at 20:00; Status DC Ringer's Solution 1,000 ml @ 30 mls/hr Q24H IV Last administered on 10/18/20at 06:00; Start 10/18/20 at 06:00; Stop 10/18/20 at 17:59; Status DC Bupivacaine HCl/ Epinephrine Bitart (Sensorcain-Epi 0.5% Kit) 30 ml STK-MED ONCE .ROUTE Last administered on 10/18/20at 11:04; Start 10/18/20 at 10:23; Stop 10/18/20 at 10:24; Status DC Rocuronium [place] (Zemuron) 50 mg STK-MED ONCE .ROUTE ; Start 10/18/20 at 10:48; Stop 10/18/20 at 10:48; Status DC Sevoflurane (Ultane) 60 ml STK-MED ONCE IH ; Start 10/18/20 at 11:13; Stop 10/18/20 at 11:13; Status DC Fentanyl Citrate (Fentanyl 2ml Vial) 100 mcg STK-MED ONCE .ROUTE ; Start 10/18/20 at 11:14; Stop 10/18/20 at 11:14; Status DC Phenylephrine HCl (PHENYLEPHRINE in 0.9% NACL PF) 1 mg STK-MED ONCE IV ; Start 10/18/20 at 11:55; Stop 10/18/20 at 11:56; Status DC Argatroban (Argatroban Per Pharmacy) 1 each PRN DAILY PRN MC SEE COMMENTS; Start 10/19/20 at 10:30; Status UNV Clopidogrel Bisulfate (Plavix) 75 mg DAILYWBKFT PO Last administered on 10/11 04/30at 08:52; Start 10/19/20 at 14:00 Warfarin Sodium (Coumadin Per Pharmacy) 1 each PRN DAILY PRN MC SEE COMMENTS Last administered on 10/23/20at 08:37; Start 10/19/20 at 13:15 Warfarin Sodium (Coumadin) 5 mg 1X WARF ONCE PO Last administered on 10/19/20at 15:24; Start 10/19/20 at 16:00; Stop 10/19/20 at 16:01; Status DC Warfarin Sodium (Coumadin) 5 mg 1X WARF ONCE PO Last administered on 10/20/20at 19:10; Start 10/20/20 at 16:00; Stop 10/20/20 at 16:01; Status DC Argatroban 50 mg/ Sodium Chloride 50 ml @ 0 mls/hr CONT PRN IV PER PROTOCOL Last administered on 10/22/20at 22:16; Start 10/20/20 at 13:15 Warfarin Sodium (Coumadin) 6 mg 1X WARF ONCE PO Last administered on 10/21/20at 17:56; Start 10/21/20 at 16:00; Stop 10/21/20 at 16:01; Status DC Warfarin Sodium (Coumadin) 7.5 mg 1X WARF ONCE PO Last administered on 10/22/20at 17:45; Start 10/22/20 at 16:00; Stop 10/22/20 at 16:01; Status DC Warfarin Sodium (Coumadin) 6 mg 1X WARF ONCE PO ; Start 10/23/20 at 16:00; Stop 10/23/20 at 16:01 Active Scripts Active Amiodarone Hcl 200 Mg Tablet 400 Mg PO DAILY 90 Days [Warfarin Per Pharmacy] 1 EACH Each 1 Each MC PRN DAILY PRN 30 Days Clopidogrel (Clopidogrel Bisulfate) 75 Mg Tablet 75 Mg PO DAILYWBKFT 90 Days Humalog (Insulin Lispro) 100 Unit/1 Ml Insuln.pen 0 Units SQ TIDWMEALS 30 Days Duoneb 0.5-3(2.5) Mg/3 Ml (Albuterol/Ipratropium) 3 Ml Ampul.neb 3 Ml NEB RTQID 30 Days Aspirin 325 Mg Tablet 325 Mg PO DAILYWBKFT 30 Days Metoprolol Tartrate 25 Mg Tablet 25 Mg PO BID 30 Days Montelukast Sodium Tablet (Montelukast Sodium) 10 Mg Tablet 10 Mg PO QHS Gabapentin 600 Mg Tablet 600 Mg PO BID 30 Days Reported Glimepiride 4 Mg Tablet 1 Tab PO DAILY Furosemide 40 Mg Tablet 1 Tab PO BID Symbicort 160-4.5 Mcg Inhaler (Budesonide/Formoterol Fumarate) 10.2 Gm Hfa.aer.ad 1 Puff INH DAILY Losartan-Hctz 100-12.5 Mg Tab (Losartan/Hydrochlorothiazide) 1 Each Tablet 1 Tab PO DAILY Nitrofurantoin Lane-Mcr 100 Mg (Nitrofurantoin Monohyd/M-Cryst) 100 Mg Capsule 1 Cap PO BID Betamethasone Valerate 60 Ml Lotion 1 TP QHS Atorvastatin Calcium 40 Mg Tablet 1 Tab PO DAILY Diltiazem 24Hr Cd (Diltiazem HCl) 240 Mg Cap.er.24h 1 Cap PO DAILY Nystop (Nystatin) 60 Gm Powder 1 Sudheer TP BID Pepcid (Famotidine) 20 Mg Tablet 20 Mg PO BID Vitals/I & O Vital Sign - Last 24 Hours 10/22/20 10/22/20 10/22/20 10/22/20 10:30 11:40 15:10 16:51 Temp 98.9 99.1 98.9 99.1 Pulse 92 73 Resp 28 32 B/P (MAP) 139/81 (100) 121/73 (89) Pulse Ox 100 100 100 100 O2 Delivery tracheal shield Tracheal Collar tracheal shield Tracheal Collar O2 Flow Rate 10.0 15.0 10.0 8.0 10/22/20 10/22/20 10/22/20 10/22/20 19:35 20:00 20:00 20:09 Temp 98.5 98.5 Pulse 87 87 Resp 16 B/P (MAP) 125/63 (83) 125/63 Pulse Ox 100 O2 Delivery BiPAP/CPAP Trach Collar O2 Flow Rate 15.0 8.0 15.0 10/22/20 10/22/20 10/22/20 10/23/20 21:12 23:07 23:12 00:01 Temp 98.2 98.2 Pulse 90 Resp 20 B/P (MAP) 126/73 (90) Pulse Ox 99 100 99 O2 Delivery Ventilator BiPAP/CPAP Ventilator O2 Flow Rate 15.0 15.0 10/23/20 10/23/20 10/23/20 10/23/20 02:00 02:33 04:00 05:45 Temp 98.0 98.0 Pulse 85 Resp 18 B/P (MAP) 102/77 (85) Pulse Ox 98 96 100 O2 Delivery Ventilator BiPAP/CPAP Ventilator O2 Flow Rate 15.0 15.0 10/23/20 10/23/20 10/23/20 10/23/20 07:00 07:27 08:34 08:52 Temp 99.8 99.8 Pulse 77 77 Resp 12 B/P (MAP) 98/67 (77) 98/67 Pulse Ox 99 100 100 O2 Delivery BiPAP/CPAP Ventilator Ventilator O2 Flow Rate 15.0 10/23/20 08:53 Pulse 77 B/P (MAP) 98/67 Intake and Output 10/22/20 10/22/20 10/23/20 15:00 23:00 07:00 Intake Total 1597 ml 610 ml 0 ml Output Total 850 ml 300 ml Balance 1597 ml -240 ml -300 ml Justicifation of Admission Dx: Justifications for Admission: Justification of Admission Dx: Yes CHF: Cardiac Arrhythmias KLAUDIA HAY MD Oct 23, 2020 10:29
[2020-10-23 11:00] VITALS: BP 116/73
--- NOTE | 2020-10-23 11:28 | NUR ---
SS following up with discharge planning. SS reviewed pt chart and discussed with pt RN. Pt is currently on the BIPAP at 35%. COVID19 negative. Pt on IV Lasix and Argatroban drip. Trach in place. G-Tube in place. LTACH's unable to accept at this time due to pt having no DPOA or Guardian. SS discussed with Mortgage Assistant, Clifton Mosqueda. SS will continue to follow for discharge planning.
--- NOTE | 2020-10-23 12:19 | PDOC ---
PULMONARY PROGRESS NOTES DATE: 10/23/20 TIME: 12:18 Subjective Patient remains on trach shield most of the day. He was rested on AVAPS mode last night. No overnight events Vitals Vital Signs Date Time Temp Pulse Resp B/P (MAP) Pulse Ox O2 Delivery O2 Flow Rate FiO2 10/23/20 11:50 100 Tracheal Collar 10.0 10/23/20 11:00 99.8 79 25 116/73 (87) 99.8 General: No acute distress HEENT: Other (nc at perrl nose clear orally intubated neck no lad no thyromegaly) Lungs: Other (Tracheostomy) Cardiovascular: S1, S2 Abdomen: Soft, Non-tender, Other (Obese) Extremities: Other (1+ edema) Skin: Warm Labs Laboratory Tests Test 10/21/20 18:10 10/21/20 23:55 10/22/20 04:10 10/22/20 06:07 Glucose (Fingerstick) 158 mg/dL (70-99) 160 mg/dL (70-99) 155 mg/dL (70-99) White Blood Count 6.2 x10^3/uL (4.0-11.0) Red Blood Count 2.95 x10^6/uL (4.30-5.70) Hemoglobin 9.2 g/dL (13.0-17.5) Hematocrit 27.5 % (39.0-53.0) Mean Corpuscular Volume 93 fL (79-100) Mean Corpuscular Hemoglobin 31 pg (25-35) Mean Corpuscular Hemoglobin Concent 34 g/dL (31-37) Red Cell Distribution Width 16.1 % (11.5-14.5) Platelet Count 242 x10^3/uL (140-400) Neutrophils (%) (Auto) 51 % (31-73) Lymphocytes (%) (Auto) 33 % (24-48) Monocytes (%) (Auto) 8 % (0-9) Eosinophils (%) (Auto) 6 % (0-3) Basophils (%) (Auto) 1 % (0-3) Neutrophils # (Auto) 3.2 x10^3/uL (1.8-7.7) Lymphocytes # (Auto) 2.1 x10^3/uL (1.0-4.8) Monocytes # (Auto) 0.5 x10^3/uL (0.0-1.1) Eosinophils # (Auto) 0.4 x10^3/uL (0.0-0.7) Basophils # (Auto) 0.1 x10^3/uL (0.0-0.2) Prothrombin Time 25.5 SEC (11.7-14.0) Prothromb Time International Ratio 2.4 (0.8-1.1) Activated Partial Thromboplast Time 93 SEC (24-38) Sodium Level 136 mmol/L (136-145) Potassium Level 3.6 mmol/L (3.5-5.1) Chloride Level 98 mmol/L (98-107) Carbon Dioxide Level 34 mmol/L (21-32) Anion Gap 4 (6-14) Blood Urea Nitrogen 24 mg/dL (8-26) Creatinine 0.9 mg/dL (0.7-1.3) Estimated GFR (Cockcroft-Gault) 82.9 Glucose Level 177 mg/dL (70-99) Calcium Level 8.6 mg/dL (8.5-10.1) Test 10/22/20 11:33 10/22/20 17:49 10/22/20 23:47 10/23/20 05:55 Glucose (Fingerstick) 160 mg/dL (70-99) 147 mg/dL (70-99) 141 mg/dL (70-99) White Blood Count 6.9 x10^3/uL (4.0-11.0) Red Blood Count 2.97 x10^6/uL (4.30-5.70) Hemoglobin 9.4 g/dL (13.0-17.5) Hematocrit 27.8 % (39.0-53.0) Mean Corpuscular Volume 94 fL (79-100) Mean Corpuscular Hemoglobin 32 pg (25-35) Mean Corpuscular Hemoglobin Concent 34 g/dL (31-37) Red Cell Distribution Width 16.0 % (11.5-14.5) Platelet Count 241 x10^3/uL (140-400) Neutrophils (%) (Auto) 49 % (31-73) Lymphocytes (%) (Auto) 36 % (24-48) Monocytes (%) (Auto) 9 % (0-9) Eosinophils (%) (Auto) 6 % (0-3) Basophils (%) (Auto) 1 % (0-3) Neutrophils # (Auto) 3.4 x10^3/uL (1.8-7.7) Lymphocytes # (Auto) 2.5 x10^3/uL (1.0-4.8) Monocytes # (Auto) 0.6 x10^3/uL (0.0-1.1) Eosinophils # (Auto) 0.4 x10^3/uL (0.0-0.7) Basophils # (Auto) 0.1 x10^3/uL (0.0-0.2) Prothrombin Time 28.4 SEC (11.7-14.0) Prothromb Time International Ratio 2.7 (0.8-1.1) Activated Partial Thromboplast Time 89 SEC (24-38) Sodium Level 135 mmol/L (136-145) Potassium Level 4.1 mmol/L (3.5-5.1) Chloride Level 97 mmol/L (98-107) Carbon Dioxide Level 33 mmol/L (21-32) Anion Gap 5 (6-14) Blood Urea Nitrogen 22 mg/dL (8-26) Creatinine 0.8 mg/dL (0.7-1.3) Estimated GFR (Cockcroft-Gault) 95.0 Glucose Level 156 mg/dL (70-99) Calcium Level 8.8 mg/dL (8.5-10.1) Laboratory Tests Test 10/22/20 17:49 10/22/20 23:47 10/23/20 05:55 Glucose (Fingerstick) 147 mg/dL (70-99) 141 mg/dL (70-99) White Blood Count 6.9 x10^3/uL (4.0-11.0) Red Blood Count 2.97 x10^6/uL (4.30-5.70) Hemoglobin 9.4 g/dL (13.0-17.5) Hematocrit 27.8 % (39.0-53.0) Mean Corpuscular Volume 94 fL (79-100) Mean Corpuscular Hemoglobin 32 pg (25-35) Mean Corpuscular Hemoglobin Concent 34 g/dL (31-37) Red Cell Distribution Width 16.0 % (11.5-14.5) Platelet Count 241 x10^3/uL (140-400) Neutrophils (%) (Auto) 49 % (31-73) Lymphocytes (%) (Auto) 36 % (24-48) Monocytes (%) (Auto) 9 % (0-9) Eosinophils (%) (Auto) 6 % (0-3) Basophils (%) (Auto) 1 % (0-3) Neutrophils # (Auto) 3.4 x10^3/uL (1.8-7.7) Lymphocytes # (Auto) 2.5 x10^3/uL (1.0-4.8) Monocytes # (Auto) 0.6 x10^3/uL (0.0-1.1) Eosinophils # (Auto) 0.4 x10^3/uL (0.0-0.7) Basophils # (Auto) 0.1 x10^3/uL (0.0-0.2) Prothrombin Time 28.4 SEC (11.7-14.0) Prothromb Time International Ratio 2.7 (0.8-1.1) Activated Partial Thromboplast Time 89 SEC (24-38) Sodium Level 135 mmol/L (136-145) Potassium Level 4.1 mmol/L (3.5-5.1) Chloride Level 97 mmol/L (98-107) Carbon Dioxide Level 33 mmol/L (21-32) Anion Gap 5 (6-14) Blood Urea Nitrogen 22 mg/dL (8-26) Creatinine 0.8 mg/dL (0.7-1.3) Estimated GFR (Cockcroft-Gault) 95.0 Glucose Level 156 mg/dL (70-99) Calcium Level 8.8 mg/dL (8.5-10.1) Medications Active Scripts Medications Dose Route/Sig Max Daily Dose Days Date Category Amiodarone Hcl 200 Mg Tablet 400 Mg PO DAILY 09/18/20 Rx [Warfarin Per Pharmacy] 1 EACH Each 1 Each MC PRN DAILY PRN 30 09/18/20 Rx Clopidogrel (Clopidogrel Bisulfate) 75 Mg Tablet 75 Mg PO DAILYWBKFT 09/18/20 Rx Glimepiride 4 Mg Tablet 1 Tab PO DAILY 09/13/20 Reported Furosemide 40 Mg Tablet 1 Tab PO BID 09/13/20 Reported Symbicort 160-4.5 Mcg Inhaler (Budesonide/Formoterol Fumarate) 10.2 Gm Hfa.aer.ad 1 Puff INH DAILY 09/13/20 Reported Losartan-Hctz 100-12.5 Mg Tab (Losartan/Hydrochlorothiazide) 1 Each Tablet 1 Tab PO DAILY 09/13/20 Reported Nitrofurantoin [place]-Mcr 100 Mg (Nitrofurantoin Monohyd/M-Cryst) 100 Mg Capsule 1 Cap PO BID 09/13/20 Reported Betamethasone Valerate 60 Ml Lotion 1 TP QHS 09/13/20 Reported Atorvastatin Calcium 40 Mg Tablet 1 Tab PO DAILY 09/13/20 Reported Diltiazem 24Hr Cd (Diltiazem HCl) 240 Mg Cap.er.24h 1 Cap PO DAILY 09/13/20 Reported Nystop (Nystatin) 60 Gm Powder 1 Sudheer TP BID 09/13/20 Reported Humalog (Insulin Lispro) 100 Unit/1 Ml Insuln.pen 0 Units SQ TIDWMEALS 30 08/06/18 Rx Duoneb 0.5-3(2.5) Mg/3 Ml (Albuterol/Ipratropium) 3 Ml Ampul.neb 3 Ml NEB RTQID 30 08/06/18 Rx Aspirin 325 Mg Tablet 325 Mg PO DAILYWBKFT 30 07/22/17 Rx Metoprolol Tartrate 25 Mg Tablet 25 Mg PO BID 30 07/22/17 Rx Montelukast Sodium Tablet (Montelukast Sodium) 10 Mg Tablet 10 Mg PO QHS 07/22/17 Rx Gabapentin 600 Mg Tablet 600 Mg PO BID 30 07/22/17 Rx Pepcid (Famotidine) 20 Mg Tablet 20 Mg PO BID 05/17/13 Reported Impression . 1. Acute on chronic respiratory failure secondary to multifactorial etiologies including hypoglycemic encephalopathy. No evidence of new stroke. 2. Possible sepsis--- on antibiotics 3. Hypoglycemia./ encephalopathy 4. The patient with prior history of cerebrovascular accident with left-sided weakness. 5. Underlying chronic obstructive pulmonary disease. 6. Morbid obesity. 7. Peripheral vascular disease. 8. Abnormal CT chest with bibasilar atelectasis. No significant mucus plugging. Tiny pleural effusion seen. 10/18 Procedure Performed: laparoscopic gastrostomy tube placement (specifically 24 F) Plan . Updated 10/23 Patient did well on trach shield most of the day. Patient was rested on AVAPS last night. RT blood gases shows no worsening hypercapnia while on trach shield. No apneic breathing reported. I discussed with respiratory therapist. We will continue continue trach shield for 24 hours as tolerated. Status post gastrostomy tube Long-term prognosis poor Discussed with social service, discharge planning in place once court appointed DPOA available Discussed with RN Updated 10/22 Patient did well on trach shield most of the day. Patient was rested on AVAPS last night. RT blood gases shows no worsening hypercapnia while on trach shield. No apneic breathing reported. I discussed with respiratory therapist. We will continue continue trach shield for 24 hours as tolerated. Status post gastrostomy tube Long-term prognosis poor Discussed with social service, discharge planning in place once court appointed DPOA available Discussed with RN Updated 10/21 Status post gastrostomy tube Continue AVAPS We will ask respiratory to consider trach shield trial to see if he has any apneic breathing. Not sure he was tried yesterday. If he does tolerate trach shield will check ABGs in 2 hours Long-term prognosis poor Discussed with social service, discharge planning in place once court appointed DPOA available Discussed with RN Updated 10/20 Status post gastrostomy tube Continue AVAPS We will ask respiratory to consider trach shield trial to see if he has any apneic breathing. Long-term prognosis poor Discussed with social service, discharge planning in place once court appointed DPOA available Discussed with RN Updated 10 19 Status post gastrostomy tube Continue AVAPS Long-term prognosis poor Discussed with social service, discharge planning in place updated 10/18 Nephrostomy tube today Spoke with Dr. Bobo Continue pressure support as tolerated updated 10/17 Continue pressure support during the day The a.m. for gastrostomy tube Discussed with RN updated 10/16 Continue pressure support during the day Continues current support Long-term prognosis poor CLINTON PALAFOX MD Oct 23, 2020 12:19
[2020-10-23] MEDS: ARGATROBAN 50 MG in IV NORMAL SALINE 50ML 50 ML IV PRN (13:01)
[2020-10-23 15:00] VITALS: BP 106/64
[2020-10-23] MEDS ORDERED: WARFARIN 3 MG TABLET. PO ONE (16:00)
[2020-10-23 19:00] VITALS: BP 141/75
[2020-10-23 23:36] VITALS: BP 127/68
[2020-10-24] MEDS: ATORVASTATIN CALCIUM 40 MG TABLET. PO SCH ×2 (00:24→21:32)
[2020-10-24] MEDS: METOPROLOL TART IMMED RELEASE 25 MG TABLET. PO SCH ×3 (00:25→21:32)
[2020-10-24] MEDS: ACETAMINOPHEN 650 MG/20.3 ML SOLUTION. PEG PRN ×2 (00:25→09:06)
[2020-10-24] MEDS: ARGATROBAN 50 MG in IV NORMAL SALINE 50ML 50 ML IV PRN (01:10)
[2020-10-24 03:17] VITALS: BP 149/76
[2020-10-24] MEDS: INSULIN LISPRO 300 UNITS/3 ML VIAL. SQ SCH ×4 (06:00→17:52)
[2020-10-24 06:30] LABS: BASO # 0.1 x10^3/uL (0.0-0.2); BASO % 1 % (0-3); EOS # 0.4 x10^3/uL (0.0-0.7); EOS % 5 % (0-3); HEMATOCRIT 28.4 % (39.0-53.0); HEMOGLOBIN 9.6 g/dL (13.0-17.5); LYMPH # 2.2 x10^3/uL (1.0-4.8); LYMPH % 27 % (24-48); MEAN CORPUSCULAR HEMOGLOBIN 32 pg (25-35); MEAN CORPUSCULAR HGB CONC 34 g/dL (31-37); MEAN CORPUSCULAR VOLUME 94 fL (79-100); MONO # 0.6 x10^3/uL (0.0-1.1); MONO % 7 % (0-9); NEUT # 4.9 x10^3/uL (1.8-7.7); NEUT % 60 % (31-73); PLATELET COUNT 235 x10^3/uL (140-400); RED BLOOD COUNT 3.02 x10^6/uL (4.30-5.70); RED CELL DISTRIBUTION WIDTH 16.1 % (11.5-14.5); WHITE BLOOD COUNT 8.2 x10^3/uL (4.0-11.0)
[2020-10-24 06:38] LABS: CALCIUM 8.9 mg/dL (8.5-10.1); CREATININE 0.8 mg/dL (0.7-1.3)
[2020-10-24 06:50] LABS: PROTHROMBIN TIME PATIENT 39.7 SEC (11.7-14.0)
[2020-10-24 07:00] VITALS: BP 115/68
--- NOTE | 2020-10-24 08:38 | PDOC ---
PROGRESS NOTES Date of Service: DATE: 10/24/20 TIME: 08:38 Chief Complaint Chief Complaint impression Acute anemia Acute metabolic, infectious encephalopathy Acute respiratory failure Healthcare associated pneumonia Acute hypoglycemia Hypokalemia Elevated troponins Severe protein malnutrition Morbid obesity AAA, 4 cm, infrarenal History of diabetes mellitus type 2 History of dyslipidemia history of hypertension History of recent STEMI History of CAD History of peripheral artery disease History of JEANNE History of CVA History of paroxysmal atrial fibrillation Ischemic cardiomyopathy History of Present Illness History of Present Illness Mr Andrews is a 70-year-old male with a recent prolonged hospitalization for STEMI and respiratory failure for which she was treated with arterial thrombolysis for a right leg popliteal artery aneurysm and also had left heart cath with placement of a stent in the LAD and RCA comes in today after he was found obtunded at his correction facility. Apparently according to the nursing facility patient was in his usual state of health and he was conversational but then became altered. His blood glucose was found to be in the 30s. Glucose tabs and glucagon was given in route and his GCS reported at 6. Upon arrival patient's mental status did not improve and he was eventually intubated for airway protection. Of note EMS was bagging the patient through the nasal access. In the ED, patient was placed on a vent and pulmonology was consulted. Patient was also taken to the CT scanner for sanders scanning. Patient was started to wake up on the vent and sedation was ordered. 09/23: Patient examined at bedside. Intubated. Not on any sedation but unresponsive. Neurology consult in place. 09/24: Patient seen and examined at bedside. Remains intubated he is off sedation but still remains unresponsive. Planning for MRI brain in the morning. Further plan to be determined by MRI. 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 09/25: Afebrile, currently breathing on ventilator with FiO2 50%, PEEP 5. Had CODE BLUE in ICU this morning; received 2 rounds of CPR, epinephrine, and atropine with ROSC. MRI brain negative. Made DNR, and after discussion with Dr. Rubalcava he agrees. 09/26:: Afebrile. Still on vent, with FiO2 45%, PEEP 5. After discussion with Dr. Rubalcava yesterday, patient was made DNR. In the ED is likely a poor candidate for weaning trials may need trach in near future if no significant improvement. 09/27:: Afebrile. On vent with FiO2 40%, PEEP 5. Potassium 2.8 today, will replace. Warfarin has been resumed. Discussed with pharmacy, will resume aspirin and Plavix. May need tracheostomy by the end of the week if no improvement in mental status. 09/28:: Afebrile. On ventilator with FiO2 40%, PEEP 5. Warfarin has been res umed; INR 1.3 today. Some morning labs still pending; hemoglobin yesterday 7.3, will continue to monitor. Continue IV cefepime and supportive care. 09/29: Afebrile. Breathing on vent with FiO2 40%, PEEP 5. INR 1.2 today; pharmacy to help with warfarin dosing. White count within normal range, renal function stable. Spoke with pharmacy about cefepime 1 g every 8 hours dosing; this has been changed to cefepime 2 g every 8 hours. 09/30: Afebrile. Currently breathing on vent with FiO2 40%, PEEP 5. Continue antibiotics, cefepime 2 g every 8 hours. INR 1.4; continue warfarin dosing per pharmacy. Possible tracheostomy at some point. Critical care time 30 minutes reviewing charts, labs, examination, discussion with RN. 10/01: T-max 100.3 F. On ventilator with FiO2 40%, PEEP 5. Continue antibiotics, cefepime 2 g every 8 hours. INR 1.4, still subtherapeutic; continue warfarin dosing per pharmacy. Possible tracheostomy at some point. 10/02: No acute events overnight. Patient saturating 99% on vent settings of 1 0/450/40/5. Patient will likely need a trach and PEG at some point. We will hold warfarin and start 2 units PRBC transfusion. Patient's chart, labs, images were reviewed and discussed with RN 10/03: No acute events overnight. Patient sat 100% on minimal vent settings. No sedation at this point and patient is opening his eyes spontaneously. Not much response or spontaneous movements. Surgery has been consulted for tracheostomy. Patient will also likely need a PEG tube. 10/04: No acute events overnight. Patient saturating 90% on minimal vent settings. T-max 100.4 overnight. Plan for trach tomorrow with surgery. Patient's chart, labs, images were reviewed and discussed with RN 10/05: No acute events overnight. Patient saturating 99% on minimal vent settings. Plan for tracheostomy today. Consent is provided by authorization by 2 physicians due to patient having no close relatives or DPOA. Will resume heparin and warfarin bridging tomorrow after tracheostomy 10/07: No acute events overnight. Patient seen and examined bedside. On trach vent. Saturating 99%. Pending GI evaluation for possible PEG placement after discussing with cardiology whether to continue with Plavix. Possibly place PEG if patient is only on aspirin and stopping argatroban. 10/08: No acute events overnight. Patient continues to be on trach mechanical vent. Saturating 100%. Pending decision from GI whether to proceed with PEG placement depending on the type of anticoagulation patient will be on. 10/09: No overnight events. On trach with vent support 40% FiO2 PEEP of 5. Currently argatroban and propofol for minimal sedation. When sedation is weaned he has no meaningful movements but has pulled at his tracheostomy site. Unable to hold plavix due to recently placed stents. 10/10: Afebrile today. On trach with vent support 40% FiO2 PEEP of 5. Continue argatroban and changed to Aggrastat in anticipation of surgical consultation for potential laparoscopic PEG placement. INR 1.6. Hb greater than 9 no significant neurologic recovery today. 10/11: Afebrile. On trach with vent support 40% FiO2 PEEP of 5. INR 1.8. Not making meaningful eye contact. Labs otherwise stable. 10/12: Afebrile. Trach with vent support 40% FiO2 PEEP five O2 saturations 92%. INR 1.8, mag 1.8, Hb 8.4. Not following commands. Tentative plans for surgical PEG next week. 10/13: Afebrile. Trach with vent support 40% FiO2 PEEP 5. Eyes open, not tracking or following commands. Holding Plavix. On argatroban. 10/14: Afebrile. Trach with vent support 40% FiO2 PEEP of 5. Will open eyes intermittently not necessarily to voice. Good urine output. Labs stable. 10/15: Afebrile overnight. Trach with vent AC 40% fio2 PEEP 5. Had a very large bowel movement. Still not tracking. Hb 9, INR 1.7, glucose 144. Tentative plan for PEG 10/18/2020 CC time 30 minutes 9/6/21: Patient seen and examined in the ICU. He was resting and still on vent via trach. Has NG running via Dobhoff, feeding at 40cc/hr. AC/10/450/40% plus 5 PEEP. Discussed with RN. Chart reviewed. 10/17/20: Patient was seen and examined in the ICU today. Still on vent via trach at AC/10/450/40 plus 5 PEEP. While examined, patient was at 100% O2 saturation. Has SCDs on for DVT prophylaxis. Stauffer catheter in place. On IV argatroban. R subclavian triple lumen in place. Dobhoff running at 40cc/hr. Discussed with RN. Chart reviewed. 10/18/20: Patient seen and examined in ICU. His eyes are open. On vent via trach with settings that were recently changed to spontaneous respirations with FiO2 of 40 and 5 PEEP. Trach is clean and dry. Currently, oxygen saturation is at 100%. Stauffer to bedside and rectal bag in place. Discussed with RN. Chart revi ewed. 10/19/20: Patient was seen and examined in the ICU today. His eyes were open and he was resting. On BiPAP via trach AVAPS/10/450/40 plus 5 PEEP. Trach is clean and dry. Has SCDs for DVT prophylaxis. Patient has rectal bag, Stauffer to bedside, and NG tube in place. Discussed with RN. Chart reviewed. 10/20/20 No acute events overnight. Patient seen and examined bedside. Transferred from the ICU. Continues to be nonverbal and not following much commands. Opens eyes to voice. Currently on BiPAP via trach on AVAPS setting 10/450/40 PEEP of 5. Trach site is clear. No signs of infections. Patient's chart, labs, images were reviewed and discussed with RN 10/21/2020 No acute events overnight. Patient seen and examined bedside. Afebrile. Cont inues to be nonverbal but opens eyes to voice. Currently on BiPAP. Patient's chart, labs, images were reviewed and discussed with RN. 10/22/2020 No acute events overnight. Patient seen examined bedside. Continue with argatroban until warfarin goal INR of 4 and maintenance goal of 2-3. Please see dry wall plasterer note. Pending appointing a legal guardian. Patient's chart, labs, images were reviewed and discussed with RN 10/23/2020 laparoscopic gastrostomy tube placement (specifically 24 F) Oct discharge planning in place once court appointed DPOA available Acute anemia Acute metabolic, infectious encephalopathy Acute respiratory failure Healthcare associated pneumonia Acute hypoglycemia Hypokalemia Elevated troponins Severe protein malnutrition Morbid obesity AAA, 4 cm, infrarenal History of diabetes mellitus type 2 History of dyslipidemia history of hypertension Patient seen examined bedside. argatroban until warfarin goal INR of 4 and maintenance goal of 2-3. Pending appointing a legal guardian. Patient's chart, labs, images were reviewed and discussed with KARY Cardenas Enteric tube with metallic tip in the left upper quadrant likely in the stomach. 10/24/2020 doing well on trach shield on a 24-hour basis./ blood gases shows no worsening hypercapnia while on trach shield. No apneic breathing reported. laparoscopic gastrostomy tube placement (specifically 24 F) Oct discharge planning in place once court appointed DPOA available Acute anemia Acute metabolic, infectious encephalopathy Acute respiratory failure Healthcare associated pneumonia Acute hypoglycemia Hypokalemia Elevated troponins Severe protein malnutrition Morbid obesity AAA, 4 cm, infrarenal History of diabetes mellitus type 2 History of dyslipidemia history of hypertension Patient seen examined bedside. argatroban until warfarin goal INR of 4 and maintenance goal of 2-3. Pending appointing a legal guardian. Patient's chart, labs, images were reviewed and discussed with KARY Cardenas Enteric tube with metallic tip in the left upper quadrant likely in the stomach. Home on plavix and warfarin D/C INITIAL PLAN TO [facility] PENDING/ discharge planning in place once court appointed DPOA available D/W RN Vitals Vitals Vital Signs Date Time Temp Pulse Resp B/P (MAP) Pulse Ox O2 Delivery O2 Flow Rate FiO2 10/24/20 04:00 10.0 10/24/20 03:17 97.7 80 24 149/76 (100) 99 Tracheal Collar 97.7 Physical Exam General: Alert, Cooperative, No acute distress Heart: Regular rate (SR), Other (distatne heart sounds) Lungs: Other (Tracheostomy) Abdomen: Soft, Other (g tube in place) Extremities: No cyanosis, Other (2-3+ bilateral LE pitting edema) Skin: No rashes, No significant lesion Labs LABS Laboratory Tests Test 10/23/20 12:37 10/23/20 18:17 10/24/20 00:21 10/24/20 06:00 Glucose (Fingerstick) 157 mg/dL (70-99) 141 mg/dL (70-99) 146 mg/dL (70-99) White Blood Count 8.2 x10^3/uL (4.0-11.0) Red Blood Count 3.02 x10^6/uL (4.30-5.70) Hemoglobin 9.6 g/dL (13.0-17.5) Hematocrit 28.4 % (39.0-53.0) Mean Corpuscular Volume 94 fL (79-100) Mean Corpuscular Hemoglobin 32 pg (25-35) Mean Corpuscular Hemoglobin Concent 34 g/dL (31-37) Red Cell Distribution Width 16.1 % (11.5-14.5) Platelet Count 235 x10^3/uL (140-400) Neutrophils (%) (Auto) 60 % (31-73) Lymphocytes (%) (Auto) 27 % (24-48) Monocytes (%) (Auto) 7 % (0-9) Eosinophils (%) (Auto) 5 % (0-3) Basophils (%) (Auto) 1 % (0-3) Neutrophils # (Auto) 4.9 x10^3/uL (1.8-7.7) Lymphocytes # (Auto) 2.2 x10^3/uL (1.0-4.8) Monocytes # (Auto) 0.6 x10^3/uL (0.0-1.1) Eosinophils # (Auto) 0.4 x10^3/uL (0.0-0.7) Basophils # (Auto) 0.1 x10^3/uL (0.0-0.2) Prothrombin Time 39.7 SEC (11.7-14.0) Prothromb Time International Ratio 4.2 (0.8-1.1) Activated Partial Thromboplast Time 105 SEC (24-38) Sodium Level 137 mmol/L (136-145) Potassium Level 4.0 mmol/L (3.5-5.1) Chloride Level 99 mmol/L (98-107) Carbon Dioxide Level 31 mmol/L (21-32) Anion Gap 7 (6-14) Blood Urea Nitrogen 22 mg/dL (8-26) Creatinine 0.8 mg/dL (0.7-1.3) Estimated GFR (Cockcroft-Gault) 95.0 Glucose Level 167 mg/dL (70-99) Calcium Level 8.9 mg/dL (8.5-10.1) Test 10/24/20 06:15 Glucose (Fingerstick) 169 mg/dL (70-99) Assessment and Plan Assessmemt and Plan Problems Medical Problems: (1) NSTEMI (non-ST elevated myocardial infarction) Status: Acute (2) Obtundation Status: Acute (3) Respiratory arrest Status: Acute Comment Review of Relevant I have reviewed the following items denise (where applicable) has been applied. Labs Laboratory Tests Test 10/22/20 11:33 10/22/20 17:49 10/22/20 23:47 10/23/20 05:55 Glucose (Fingerstick) 160 mg/dL (70-99) 147 mg/dL (70-99) 141 mg/dL (70-99) White Blood Count 6.9 x10^3/uL (4.0-11.0) Red Blood Count 2.97 x10^6/uL (4.30-5.70) Hemoglobin 9.4 g/dL (13.0-17.5) Hematocrit 27.8 % (39.0-53.0) Mean Corpuscular Volume 94 fL (79-100) Mean Corpuscular Hemoglobin 32 pg (25-35) Mean Corpuscular Hemoglobin Concent 34 g/dL (31-37) Red Cell Distribution Width 16.0 % (11.5-14.5) Platelet Count 241 x10^3/uL (140-400) Neutrophils (%) (Auto) 49 % (31-73) Lymphocytes (%) (Auto) 36 % (24-48) Monocytes (%) (Auto) 9 % (0-9) Eosinophils (%) (Auto) 6 % (0-3) Basophils (%) (Auto) 1 % (0-3) Neutrophils # (Auto) 3.4 x10^3/uL (1.8-7.7) Lymphocytes # (Auto) 2.5 x10^3/uL (1.0-4.8) Monocytes # (Auto) 0.6 x10^3/uL (0.0-1.1) Eosinophils # (Auto) 0.4 x10^3/uL (0.0-0.7) Basophils # (Auto) 0.1 x10^3/uL (0.0-0.2) Prothrombin Time 28.4 SEC (11.7-14.0) Prothromb Time International Ratio 2.7 (0.8-1.1) Activated Partial Thromboplast Time 89 SEC (24-38) Sodium Level 135 mmol/L (136-145) Potassium Level 4.1 mmol/L (3.5-5.1) Chloride Level 97 mmol/L (98-107) Carbon Dioxide Level 33 mmol/L (21-32) Anion Gap 5 (6-14) Blood Urea Nitrogen 22 mg/dL (8-26) Creatinine 0.8 mg/dL (0.7-1.3) Estimated GFR (Cockcroft-Gault) 95.0 Glucose Level 156 mg/dL (70-99) Calcium Level 8.8 mg/dL (8.5-10.1) Test 10/23/20 12:37 10/23/20 18:17 10/24/20 00:21 10/24/20 06:00 Glucose (Fingerstick) 157 mg/dL (70-99) 141 mg/dL (70-99) 146 mg/dL (70-99) White Blood Count 8.2 x10^3/uL (4.0-11.0) Red Blood Count 3.02 x10^6/uL (4.30-5.70) Hemoglobin 9.6 g/dL (13.0-17.5) Hematocrit 28.4 % (39.0-53.0) Mean Corpuscular Volume 94 fL (79-100) Mean Corpuscular Hemoglobin 32 pg (25-35) Mean Corpuscular Hemoglobin Concent 34 g/dL (31-37) Red Cell Distribution Width 16.1 % (11.5-14.5) Platelet Count 235 x10^3/uL (140-400) Neutrophils (%) (Auto) 60 % (31-73) Lymphocytes (%) (Auto) 27 % (24-48) Monocytes (%) (Auto) 7 % (0-9) Eosinophils (%) (Auto) 5 % (0-3) Basophils (%) (Auto) 1 % (0-3) Neutrophils # (Auto) 4.9 x10^3/uL (1.8-7.7) Lymphocytes # (Auto) 2.2 x10^3/uL (1.0-4.8) Monocytes # (Auto) 0.6 x10^3/uL (0.0-1.1) Eosinophils # (Auto) 0.4 x10^3/uL (0.0-0.7) Basophils # (Auto) 0.1 x10^3/uL (0.0-0.2) Prothrombin Time 39.7 SEC (11.7-14.0) Prothromb Time International Ratio 4.2 (0.8-1.1) Activated Partial Thromboplast Time 105 SEC (24-38) Sodium Level 137 mmol/L (136-145) Potassium Level 4.0 mmol/L (3.5-5.1) Chloride Level 99 mmol/L (98-107) Carbon Dioxide Level 31 mmol/L (21-32) Anion Gap 7 (6-14) Blood Urea Nitrogen 22 mg/dL (8-26) Creatinine 0.8 mg/dL (0.7-1.3) Estimated GFR (Cockcroft-Gault) 95.0 Glucose Level 167 mg/dL (70-99) Calcium Level 8.9 mg/dL (8.5-10.1) Test 10/24/20 06:15 Glucose (Fingerstick) 169 mg/dL (70-99) Laboratory Tests Test 10/23/20 12:37 10/23/20 18:17 10/24/20 00:21 10/24/20 06:00 Glucose (Fingerstick) 157 mg/dL (70-99) 141 mg/dL (70-99) 146 mg/dL (70-99) White Blood Count 8.2 x10^3/uL (4.0-11.0) Red Blood Count 3.02 x10^6/uL (4.30-5.70) Hemoglobin 9.6 g/dL (13.0-17.5) Hematocrit 28.4 % (39.0-53.0) Mean Corpuscular Volume 94 fL (79-100) Mean Corpuscular Hemoglobin 32 pg (25-35) Mean Corpuscular Hemoglobin Concent 34 g/dL (31-37) Red Cell Distribution Width 16.1 % (11.5-14.5) Platelet Count 235 x10^3/uL (140-400) Neutrophils (%) (Auto) 60 % (31-73) Lymphocytes (%) (Auto) 27 % (24-48) Monocytes (%) (Auto) 7 % (0-9) Eosinophils (%) (Auto) 5 % (0-3) Basophils (%) (Auto) 1 % (0-3) Neutrophils # (Auto) 4.9 x10^3/uL (1.8-7.7) Lymphocytes # (Auto) 2.2 x10^3/uL (1.0-4.8) Monocytes # (Auto) 0.6 x10^3/uL (0.0-1.1) Eosinophils # (Auto) 0.4 x10^3/uL (0.0-0.7) Basophils # (Auto) 0.1 x10^3/uL (0.0-0.2) Prothrombin Time 39.7 SEC (11.7-14.0) Prothromb Time International Ratio 4.2 (0.8-1.1) Activated Partial Thromboplast Time 105 SEC (24-38) Sodium Level 137 mmol/L (136-145) Potassium Level 4.0 mmol/L (3.5-5.1) Chloride Level 99 mmol/L (98-107) Carbon Dioxide Level 31 mmol/L (21-32) Anion Gap 7 (6-14) Blood Urea Nitrogen 22 mg/dL (8-26) Creatinine 0.8 mg/dL (0.7-1.3) Estimated GFR (Cockcroft-Gault) 95.0 Glucose Level 167 mg/dL (70-99) Calcium Level 8.9 mg/dL (8.5-10.1) Test 10/24/20 06:15 Glucose (Fingerstick) 169 mg/dL (70-99) Medications Current Medications Fentanyl Citrate 30 ml @ 0 mls/hr CONT PRN IV SEE PROTOCOL; Start 09/22/20 at 09:45; Stop 10/13/20 at 09:24; Status DC Propofol 100 ml @ 0 mls/hr CONT PRN IV PER PROTOCOL Last administered on 09/22/20at 10:30; Start 09/22/20 at 09:45; Stop 09/26/20 at 20:12; Status DC Fentanyl Citrate (Fentanyl 2ml Vial) 25 mcg PRN Q1HR PRN IV SEE COMMENTS; Start 09/22/20 at 09:45 Fentanyl Citrate (Fentanyl 2ml Vial) 50 mcg PRN Q1HR PRN IV SEE COMMENTS Last administered on 10/03/20at 01:22; Start 09/22/20 at 09:45 Chlorhexidine Gluconate (Peridex) 15 ml BID MM ; Start 09/22/20 at 10:00; Stop 09/22/20 at 19:54; Status DC Midazolam HCl (Versed) 2 mg 1X ONCE IV ; Start 09/22/20 at 10:30; Stop 09/22/20 at 10:31; Status DC Iohexol (Omnipaque 300 Mg/ml) 75 ml 1X ONCE IV Last administered on 09/22/20at 11:06; Start 09/22/20 at 10:45; Stop 09/22/20 at 10:46; Status DC Info (CONTRAST GIVEN -- Rx MONITORING) 1 each PRN DAILY PRN MC SEE COMMENTS; Start 09/22/20 at 10:45; Stop 09/24/20 at 10:44; Status DC Potassium Chloride/Water 100 ml @ 100 mls/hr Q1H IV Last administered on 09/22/20at 20:27; Start 09/22/20 at 15:00; Stop 09/22/20 at 18:59; Status DC Cefepime HCl (Maxipime) 1 gm Q8HRS IVP Last administered on 09/29/20at 05:52; Start 09/22/20 at 14:00; Stop 09/29/20 at 10:32; Status DC Sennosides (Senna) 17.2 mg PRN BID PRN PO CONSTIPATION; Start 09/22/20 at 14:00 Docusate Sodium (Colace) 100 mg PRN DAILY PRN PO HARD STOOLS; Start 09/22/20 at 14:00; Stop 09/22/20 at 14:00; Status DC Ondansetron HCl (Zofran) 4 mg PRN Q6HRS PRN IVP NAUSEA/VOMITING, 1ST CHOICE; Start 09/22/20 at 14:00 Insulin Human Lispro (HumaLOG) 0-7 UNITS Q6HRS SQ Last administered on 10/23/20at 12:49; Start 09/22/20 at 18:00 Dextrose (Dextrose 50%-Water Syringe) 12.5 gm PRN Q15MIN PRN IV SEE COMMENTS Last administered on 09/22/20at 17:47; Start 09/22/20 at 14:00 Dextrose/Sodium Chloride 1,000 ml @ 50 mls/hr Q20H IV Last administered on 10/12/20at 11:04; Start 09/22/20 at 14:00; Stop 10/13/20 at 09:24; Status DC Acetaminophen (Tylenol) 650 mg PRN Q4HRS PRN PO TEMP OVER 100.4F OR MILD PAIN Last administered on 09/23/20at 00:20; Start 09/22/20 at 14:00; Stop 09/23/20 at 16:24; Status DC Enoxaparin Sodium (Lovenox 40mg Syringe) 40 mg Q24H SQ ; Start 09/22/20 at 14:00; Status UNV Pantoprazole Sodium (PROTONIX VIAL for IV PUSH) 40 mg DAILY IVP Last administered on 10/23/20at 08:56; Start 09/23/20 at 09:00 Prochlorperazine Edisylate (Compazine) 10 mg PRN Q6HRS PRN IV NAUSEA/VOMITING, 2ND CHOICE; Start 09/22/20 at 14:00 Etomidate (Amidate) 20 mg STK-MED ONCE IV ; Start 09/22/20 at 17:46; Stop 09/22/20 at 17:46; Status DC Rocuronium Kamuela (Zemuron) 50 mg STK-MED ONCE .ROUTE ; Start 09/22/20 at 17:46; Stop 09/22/20 at 17:47; Status DC Norepinephrine Bitartrate 8 mg/ Dextrose 258 ml @ 21.769 mls/ hr CONT PRN IV PER PROTOCOL Last administered on 09/24/20at 13:20; Start 09/22/20 at 18:15; Stop 10/13/20 at 09:24; Status DC Potassium Chloride/Water 100 ml @ 100 mls/hr Q1H IV Last administered on 09/23/20at 14:30; Start 09/23/20 at 07:00; Stop 09/23/20 at 14:59; Status DC Acetaminophen (Tylenol) 650 mg PRN Q6HRS PRN PEG MILD PAIN / TEMP > 100.3'F Last administered on 10/24/20at 00:25; Start 09/23/20 at 16:30 Warfarin Sodium (Coumadin Per Pharmacy) 1 each PRN DAILY PRN MC SEE COMMENTS Last administered on 10/01/20at 12:32; Start 09/24/20 at 12:30; Stop 10/02/20 at 05:55; Status DC Warfarin Sodium (Coumadin) 5 mg 1X WARF ONCE PO Last administered on 09/24/20at 17:42; Start 09/24/20 at 16:00; Stop 09/24/20 at 16:01; Status DC Warfarin Sodium (Coumadin - No Dose Today) 1 each 1X WARF ONCE MC ; Start 09/25/20 at 16:00; Stop 09/25/20 at 16:01; Status DC Warfarin Sodium (Coumadin) 1 mg 1X WARF ONCE PO Last administered on 09/26/20at 16:00; Start 09/26/20 at 16:00; Stop 09/26/20 at 16:01; Status DC Propofol 100 ml @ 3.174 mls/ hr CONT PRN IV PER PROTOCOL Last administered on 10/09/20at 04:43; Start 09/26/20 at 20:15; Stop 10/13/20 at 09:24; Status DC Atropine Sulfate (ATROPINE 1mg SYRINGE) 1 mg STK-MED ONCE .ROUTE ; Start 09/25/20 at 10:00; Stop 09/27/20 at 08:20; Status DC Epinephrine HCl (EPINEPHrine SYRINGE) 1 mg STK-MED ONCE .ROUTE ; Start 09/25/20 at 10:00; Stop 09/27/20 at 08:20; Status DC Warfarin Sodium (Coumadin) 2 mg 1X WARF ONCE PO Last administered on 09/27/20at 17:53; Start 09/27/20 at 16:00; Stop 09/27/20 at 16:01; Status DC Aspirin (Aspirin Chewable) 81 mg DAILYWBKFT PO Last administered on 10/06/20at 11:39; Start 09/27/20 at 09:30; Stop 10/06/20 at 16:23; Status DC Clopidogrel Bisulfate (Plavix) 75 mg DAILYWBKFT PO Last administered on 10/09/20at 09:24; Start 09/27/20 at 09:30; Stop 10/09/20 at 17:03; Status DC Potassium Chloride/Water 100 ml @ 100 mls/hr Q1H IV Last administered on 09/27/20at 12:45; Start 09/27/20 at 11:30; Stop 09/27/20 at 13:29; Status DC Warfarin Sodium (Coumadin) 3 mg 1X WARF ONCE PO Last administered on 09/28/20at 18:18; Start 09/28/20 at 16:00; Stop 09/28/20 at 16:01; Status DC Cefepime HCl (Maxipime) 2 gm Q8HRS IVP Last administered on 10/20/20at 05:36; Start 09/29/20 at 14:00; Stop 10/20/20 at 13:23; Status DC Warfarin Sodium (Coumadin) 3 mg 1X WARF ONCE PO Last administered on 09/29/20at 16:55; Start 09/29/20 at 16:00; Stop 09/29/20 at 16:01; Status DC Warfarin Sodium (Coumadin) 3 mg 1X WARF ONCE PO Last administered on 09/30/20at 16:00; Start 09/30/20 at 16:00; Stop 09/30/20 at 16:01; Status DC Warfarin Sodium (Coumadin) 5 mg 1X WARF ONCE PO Last administered on 10/01/20at 16:35; Start 10/01/20 at 16:00; Stop 10/01/20 at 16:01; Status DC Multi-Ingred Cream/Lotion/Oil/ Oint (Artificial Tears Eye Ointment) 1 sudheer PRN Q1HR PRN OU DRY EYE Last administered on 10/03/20at 12:24; Start 10/02/20 at 12:45 Fentanyl Citrate (Fentanyl 2ml Vial) 25 mcg PRN Q5MIN PRN IVP MILD PAIN 1-3; Start 10/05/20 at 06:00; Stop 10/06/20 at 05:59; Status DC Fentanyl Citrate (Fentanyl 2ml Vial) 50 mcg PRN Q5MIN PRN IVP MODERATE PAIN 4- 6; Start 10/05/20 at 06:00; Stop 10/06/20 at 05:59; Status DC Morphine Sulfate (Morphine Sulfate) 1 mg PRN Q10MIN PRN IVP SEVERE PAIN 7-10; Start 10/05/20 at 06:00; Stop 10/06/20 at 05:59; Status UNV Ringer's Solution 1,000 ml @ 30 mls/hr Q24H IV ; Start 10/05/20 at 06:00; Stop 10/05/20 at 17:59; Status DC Hydromorphone HCl (Dilaudid) 0.5 mg PRN Q10MIN PRN IVP SEVERE PAIN 7-10, 2nd CHOICE; Start 10/05/20 at 06:00; Stop 10/06/20 at 05:59; Status UNV Prochlorperazine Edisylate (Compazine) 5 mg PACU PRN PRN IVP NAUSEA, MRX1; Start 10/05/20 at 06:00; Stop 10/06/20 at 05:59; Status DC Bupivacaine HCl/ Epinephrine Bitart (Sensorcain-Epi 0.5%-1:[id number] Mpf) 30 ml STK-MED ONCE .ROUTE Last administered on 10/05/20at 10:09; Start 10/05/20 at 0 7:12; Stop 10/05/20 at 07:12; Status DC Cellulose (Surgicel Fibrillar 1x2) 1 each STK-MED ONCE .ROUTE Last administered on 10/05/20at 10:30; Start 10/05/20 at 07:12; Stop 10/05/20 at 07:12; Status DC Rocuronium Kamuela (Zemuron) 50 mg STK-MED ONCE .ROUTE ; Start 10/05/20 at 09:06; Stop 10/05/20 at 09:06; Status DC Rocuronium Kamuela (Zemuron) 50 mg STK-MED ONCE .ROUTE ; Start 10/05/20 at 10:10; Stop 10/05/20 at 10:10; Status DC Warfarin Sodium (Coumadin Per Pharmacy) 1 each PRN DAILY PRN MC SEE COMMENTS Last administered on 10/06/20at 09:32; Start 10/05/20 at 14:00; Stop 10/06/20 at 16:23; Status DC Argatroban (Argatroban Per Pharmacy) 1 each PRN DAILY PRN MC SEE COMMENTS Last administered on 10/13/20at 16:34; Start 10/05/20 at 14:00 Argatroban 50 mg/ Sodium Chloride 50 ml @ 6.48 mls/hr CONT PRN IV ADJUST PER PTT; Start 10/05/20 at 14:00; Stop 10/05/20 at 13:59; Status DC Argatroban 50 mg/ Sodium Chloride 50 ml @ 6.48 mls/hr CONT PRN IV ADJUST PER PTT; Start 10/06/20 at 00:00; Status Cancel Warfarin Sodium (Coumadin) 5 mg 1X WARF ONCE PO Last administered on 10/05/20at 21:23; Start 10/05/20 at 16:00; Stop 10/05/20 at 16:01; Status DC Argatroban 50 mg/ Sodium Chloride 50 ml @ 0 mls/hr CONT PRN IV PER PROTOCOL Last administered on 10/19/20at 22:13; Start 10/06/20 at 09:00; Stop 10/20/20 at 13:02; Status DC Warfarin Sodium (Coumadin) 5 mg 1X WARF ONCE PO ; Start 10/06/20 at 16:00; Stop 10/06/20 at 16:01; Status Cancel Amiodarone HCl (Cordarone) 400 mg DAILY PO Last administered on 10/23/20at 08:52; Start 10/06/20 at 10:00 Atorvastatin Calcium (Lipitor) 40 mg QHS PO Last administered on 10/24/20at 00:24; Start 10/06/20 at 21:00 Metoprolol Tartrate (Lopressor) 25 mg BID PO Last administered on 10/24/20at 00:25; Start 10/06/20 at 10:00 Furosemide (Lasix) 40 mg DAILY IVP Last administered on 10/23/20at 08:56; Start 10/06/20 at 10:00 Potassium Bicarbonate (Potassium Effervescent Tablet) 20 meq DAILY PEG Last administered on 10/23/20at 08:56; Start 10/06/20 at 10:00 Tirofiban/Sodium Chloride 100 ml @ 0 mls/hr CONT PRN IV PER PROTOCOL Last administered on 10/11/20at 14:11; Start 10/09/20 at 17:00; Stop 10/11/20 at 20:21; Status DC Albumin Human 100 ml @ 100 mls/hr 1X ONCE IV Last administered on 10/12/20at 15:22; Start 10/12/20 at 14:00; Stop 10/12/20 at 14:59; Status DC Furosemide (Lasix) 40 mg 1X ONCE IVP Last administered on 10/12/20at 15:22; Start 10/12/20 at 15:00; Stop 10/12/20 at 15:01; Status DC Aspirin (Aspirin Chewable) 81 mg 1X ONCE PO Last administered on 10/13/20at 12:25; Start 10/13/20 at 10:30; Stop 10/13/20 at 10:31; Status DC Aspirin (Aspirin Chewable) 81 mg DAILYWBKFT PO Last administered on 10/23/20at 08:51; Start 10/14/20 at 08:00 Fentanyl Citrate (Fentanyl 2ml Vial) 25 mcg PRN Q5MIN PRN IVP MILD PAIN 1-3; Start 10/18/20 at 06:00; Stop 10/18/20 at 20:00; Status DC Ringer's Solution 1,000 ml @ 30 mls/hr Q24H IV Last administered on 10/18/20at 06:00; Start 10/18/20 at 06:00; Stop 10/18/20 at 17:59; Status DC Bupivacaine HCl/ Epinephrine Bitart (Sensorcain-Epi 0.5% Kit) 30 ml STK-MED ONCE .ROUTE Last administered on 10/18/20at 11:04; Start 10/18/20 at 10:23; Stop 10/18/20 at 10:24; Status DC Rocuronium Kamuela (Zemuron) 50 mg STK-MED ONCE .ROUTE ; Start 10/18/20 at 10:48; Stop 10/18/20 at 10:48; Status DC Sevoflurane (Ultane) 60 ml STK-MED ONCE IH ; Start 10/18/20 at 11:13; Stop 10/18/20 at 11:13; Status DC Fentanyl Citrate (Fentanyl 2ml Vial) 100 mcg STK-MED ONCE .ROUTE ; Start 10/18/20 at 11:14; Stop 10/18/20 at 11:14; Status DC Phenylephrine HCl (PHENYLEPHRINE in 0.9% NACL PF) 1 mg STK-MED ONCE IV ; Start 10/18/20 at 11:55; Stop 10/18/20 at 11:56; Status DC Argatroban (Argatroban Per Pharmacy) 1 each PRN DAILY PRN MC SEE COMMENTS; Start 10/19/20 at 10:30; Status UNV Clopidogrel Bisulfate (Plavix) 75 mg DAILYWBKFT PO Last administered on 10/23/20at 08:52; Start 10/19/20 at 14:00 Warfarin Sodium (Coumadin Per Pharmacy) 1 each PRN DAILY PRN MC SEE COMMENTS Last administered on 10/23/20at 08:37; Start 10/19/20 at 13:15 Warfarin Sodium (Coumadin) 5 mg 1X WARF ONCE PO Last administered on 10/19/20at 15:24; Start 10/19/20 at 16:00; Stop 10/19/20 at 16:01; Status DC Warfarin Sodium (Coumadin) 5 mg 1X WARF ONCE PO Last administered on 10/20/20at 19:10; Start 10/20/20 at 16:00; Stop 10/20/20 at 16:01; Status DC Argatroban 50 mg/ Sodium Chloride 50 ml @ 0 mls/hr CONT PRN IV PER PROTOCOL Last administered on 10/24/20at 01:10; Start 10/20/20 at 13:15 Warfarin Sodium (Coumadin) 6 mg 1X WARF ONCE PO Last administered on 10/21/20at 17:56; Start 10/21/20 at 16:00; Stop 10/21/20 at 16:01; Status DC Warfarin Sodium (Coumadin) 7.5 mg 1X WARF ONCE PO Last administered on 10/22/20at 17:45; Start 10/22/20 at 16:00; Stop 10/22/20 at 16:01; Status DC Warfarin Sodium (Coumadin) 6 mg 1X WARF ONCE PO Last administered on 10/23/20at 17:05; Start 10/23/20 at 16:00; Stop 10/23/20 at 16:01; Status DC Active Scripts Active Amiodarone Hcl 200 Mg Tablet 400 Mg PO DAILY 90 Days [Warfarin Per Pharmacy] 1 EACH Each 1 Each PRN DAILY PRN 30 Days Clopidogrel (Clopidogrel Bisulfate) 75 Mg Tablet 75 Mg PO DAILYWBKFT 90 Days Humalog (Insulin Lispro) 100 Unit/1 Ml Insuln.pen 0 Units SQ TIDWMEALS 30 Days Duoneb 0.5-3(2.5) Mg/3 Ml (Albuterol/Ipratropium) 3 Ml Ampul.neb 3 Ml NEB RTQID 30 Days Aspirin 325 Mg Tablet 325 Mg PO DAILYWBKFT 30 Days Metoprolol Tartrate 25 Mg Tablet 25 Mg PO BID 30 Days Montelukast Sodium Tablet (Montelukast Sodium) 10 Mg Tablet 10 Mg PO QHS Gabapentin 600 Mg Tablet 600 Mg PO BID 30 Days Reported Glimepiride 4 Mg Tablet 1 Tab PO DAILY Furosemide 40 Mg Tablet 1 Tab PO BID Symbicort 160-4.5 Mcg Inhaler (Budesonide/Formoterol Fumarate) 10.2 Gm Hfa.aer.ad 1 Puff INH DAILY Losartan-Hctz 100-12.5 Mg Tab (Losartan/Hydrochlorothiazide) 1 Each Tablet 1 Tab PO DAILY Nitrofurantoin Cambria-Mcr 100 Mg (Nitrofurantoin Monohyd/M-Cryst) 100 Mg Capsule 1 Cap PO BID Betamethasone Valerate 60 Ml Lotion 1 TP QHS Atorvastatin Calcium 40 Mg Tablet 1 Tab PO DAILY Diltiazem 24Hr Cd (Diltiazem HCl) 240 Mg Cap.er.24h 1 Cap PO DAILY Nystop (Nystatin) 60 Gm Powder 1 Sudheer TP BID Pepcid (Famotidine) 20 Mg Tablet 20 Mg PO BID Vitals/I & O Vital Sign - Last 24 Hours 10/23/20 10/23/20 10/23/20 10/23/20 08:52 08:53 11:00 11:50 Temp 99.8 99.8 Pulse 77 77 79 Resp 25 B/P (MAP) 98/67 98/67 116/73 (87) Pulse Ox 100 100 O2 Delivery BiPAP/CPAP Tracheal Collar O2 Flow Rate 15.0 10.0 10/23/20 10/23/20 10/23/20 10/23/20 12:00 13:53 15:00 16:00 Temp 97.8 97.8 Pulse 75 Resp 25 B/P (MAP) 106/64 (78) Pulse Ox 100 97 O2 Delivery Tracheal Collar BiPAP/CPAP O2 Flow Rate 10.0 10.0 15.0 15.0 10/23/20 10/23/20 10/23/20 10/23/20 16:05 19:00 20:00 20:00 Temp 99.0 99.0 Pulse 90 Resp 24 B/P (MAP) 141/75 (97) Pulse Ox 100 98 O2 Delivery Tracheal Collar Tracheal Collar Trach Collar O2 Flow Rate 10.0 10.0 10.0 8.0 10/23/20 10/23/20 10/23/20 10/23/20 20:00 21:27 23:32 23:36 Temp 99.2 99.2 Pulse 91 Resp 24 B/P (MAP) 127/68 (87) Pulse Ox 100 98 99 O2 Delivery Tracheal Collar Tracheal Collar Tracheal Collar O2 Flow Rate 15.0 10.0 10.0 10.0 10/23/20 10/24/20 10/24/20 10/24/20 23:59 00:00 00:25 03:17 Temp 97.7 97.7 Pulse 91 80 Resp 24 B/P (MAP) 127/68 149/76 (100) Pulse Ox 99 O2 Delivery Tracheal Collar O2 Flow Rate 10.0 15.0 10.0 10/24/20 04:00 O2 Flow Rate 10.0 Intake and Output 10/23/20 10/23/20 10/24/20 15:00 23:00 07:00 Intake Total 610 ml 1220 ml 0 ml Output Total 600 ml 350 ml Balance 610 ml 620 ml -350 ml Justicifation of Admission Dx: Justifications for Admission: Justification of Admission Dx: Yes CHF: Cardiac Arrhythmias KLAUDIA HAY MD Oct 24, 2020 08:38
[2020-10-24] MEDS: ASPIRIN CHEWABLE 81 MG TABLET. PO SCH (09:03)
[2020-10-24] MEDS: FUROSEMIDE 40 MG/4 ML VIAL. IVP SCH (09:05)
[2020-10-24] MEDS: PANTOPRAZOLE IV PUSH 40 MG VIAL. IVP SCH (09:06)
[2020-10-24] MEDS: CLOPIDOGREL BISULFATE 75 MG TABLET PO SCH (09:07)
[2020-10-24] MEDS: POTASSIUM BICARB 20 MEQ EFFERVESCENT TABLET. PEG SCH (09:07)
[2020-10-24] MEDS: AMIODARONE HCL 200 MG TABLET. PO SCH (09:10)
--- NOTE | 2020-10-24 10:39 | PDOC ---
PULMONARY PROGRESS NOTES DATE: 10/24/20 TIME: 10:37 Subjective Patient remains on trach shield 24 hours No overnight events Vitals Vital Signs Date Time Temp Pulse Resp B/P (MAP) Pulse Ox O2 Delivery O2 Flow Rate FiO2 10/24/20 09:10 87 10/24/20 08:26 99 Tracheal Collar 10.0 10/24/20 07:00 99.5 16 115/68 (84) 99.5 General: No acute distress HEENT: Other (nc at perrl nose clear orally intubated neck no lad no thyromegaly) Lungs: Other (Tracheostomy) Cardiovascular: S1, S2 Abdomen: Soft, Non-tender, Other (Obese) Extremities: Other (1+ edema) Skin: Warm Labs Laboratory Tests Test 10/22/20 11:33 10/22/20 17:49 10/22/20 23:47 10/23/20 05:55 Glucose (Fingerstick) 160 mg/dL (70-99) 147 mg/dL (70-99) 141 mg/dL (70-99) White Blood Count 6.9 x10^3/uL (4.0-11.0) Red Blood Count 2.97 x10^6/uL (4.30-5.70) Hemoglobin 9.4 g/dL (13.0-17.5) Hematocrit 27.8 % (39.0-53.0) Mean Corpuscular Volume 94 fL (79-100) Mean Corpuscular Hemoglobin 32 pg (25-35) Mean Corpuscular Hemoglobin Concent 34 g/dL (31-37) Red Cell Distribution Width 16.0 % (11.5-14.5) Platelet Count 241 x10^3/uL (140-400) Neutrophils (%) (Auto) 49 % (31-73) Lymphocytes (%) (Auto) 36 % (24-48) Monocytes (%) (Auto) 9 % (0-9) Eosinophils (%) (Auto) 6 % (0-3) Basophils (%) (Auto) 1 % (0-3) Neutrophils # (Auto) 3.4 x10^3/uL (1.8-7.7) Lymphocytes # (Auto) 2.5 x10^3/uL (1.0-4.8) Monocytes # (Auto) 0.6 x10^3/uL (0.0-1.1) Eosinophils # (Auto) 0.4 x10^3/uL (0.0-0.7) Basophils # (Auto) 0.1 x10^3/uL (0.0-0.2) Prothrombin Time 28.4 SEC (11.7-14.0) Prothromb Time International Ratio 2.7 (0.8-1.1) Activated Partial Thromboplast Time 89 SEC (24-38) Sodium Level 135 mmol/L (136-145) Potassium Level 4.1 mmol/L (3.5-5.1) Chloride Level 97 mmol/L (98-107) Carbon Dioxide Level 33 mmol/L (21-32) Anion Gap 5 (6-14) Blood Urea Nitrogen 22 mg/dL (8-26) Creatinine 0.8 mg/dL (0.7-1.3) Estimated GFR (Cockcroft-Gault) 95.0 Glucose Level 156 mg/dL (70-99) Calcium Level 8.8 mg/dL (8.5-10.1) Test 10/23/20 12:37 10/23/20 18:17 10/24/20 00:21 10/24/20 06:00 Glucose (Fingerstick) 157 mg/dL (70-99) 141 mg/dL (70-99) 146 mg/dL (70-99) White Blood Count 8.2 x10^3/uL (4.0-11.0) Red Blood Count 3.02 x10^6/uL (4.30-5.70) Hemoglobin 9.6 g/dL (13.0-17.5) Hematocrit 28.4 % (39.0-53.0) Mean Corpuscular Volume 94 fL (79-100) Mean Corpuscular Hemoglobin 32 pg (25-35) Mean Corpuscular Hemoglobin Concent 34 g/dL (31-37) Red Cell Distribution Width 16.1 % (11.5-14.5) Platelet Count 235 x10^3/uL (140-400) Neutrophils (%) (Auto) 60 % (31-73) Lymphocytes (%) (Auto) 27 % (24-48) Monocytes (%) (Auto) 7 % (0-9) Eosinophils (%) (Auto) 5 % (0-3) Basophils (%) (Auto) 1 % (0-3) Neutrophils # (Auto) 4.9 x10^3/uL (1.8-7.7) Lymphocytes # (Auto) 2.2 x10^3/uL (1.0-4.8) Monocytes # (Auto) 0.6 x10^3/uL (0.0-1.1) Eosinophils # (Auto) 0.4 x10^3/uL (0.0-0.7) Basophils # (Auto) 0.1 x10^3/uL (0.0-0.2) Prothrombin Time 39.7 SEC (11.7-14.0) Prothromb Time International Ratio 4.2 (0.8-1.1) Activated Partial Thromboplast Time 105 SEC (24-38) Sodium Level 137 mmol/L (136-145) Potassium Level 4.0 mmol/L (3.5-5.1) Chloride Level 99 mmol/L (98-107) Carbon Dioxide Level 31 mmol/L (21-32) Anion Gap 7 (6-14) Blood Urea Nitrogen 22 mg/dL (8-26) Creatinine 0.8 mg/dL (0.7-1.3) Estimated GFR (Cockcroft-Gault) 95.0 Glucose Level 167 mg/dL (70-99) Calcium Level 8.9 mg/dL (8.5-10.1) Test 10/24/20 06:15 Glucose (Fingerstick) 169 mg/dL (70-99) Laboratory Tests Test 10/23/20 12:37 10/23/20 18:17 10/24/20 00:21 10/24/20 06:00 Glucose (Fingerstick) 157 mg/dL (70-99) 141 mg/dL (70-99) 146 mg/dL (70-99) White Blood Count 8.2 x10^3/uL (4.0-11.0) Red Blood Count 3.02 x10^6/uL (4.30-5.70) Hemoglobin 9.6 g/dL (13.0-17.5) Hematocrit 28.4 % (39.0-53.0) Mean Corpuscular Volume 94 fL (79-100) Mean Corpuscular Hemoglobin 32 pg (25-35) Mean Corpuscular Hemoglobin Concent 34 g/dL (31-37) Red Cell Distribution Width 16.1 % (11.5-14.5) Platelet Count 235 x10^3/uL (140-400) Neutrophils (%) (Auto) 60 % (31-73) Lymphocytes (%) (Auto) 27 % (24-48) Monocytes (%) (Auto) 7 % (0-9) Eosinophils (%) (Auto) 5 % (0-3) Basophils (%) (Auto) 1 % (0-3) Neutrophils # (Auto) 4.9 x10^3/uL (1.8-7.7) Lymphocytes # (Auto) 2.2 x10^3/uL (1.0-4.8) Monocytes # (Auto) 0.6 x10^3/uL (0.0-1.1) Eosinophils # (Auto) 0.4 x10^3/uL (0.0-0.7) Basophils # (Auto) 0.1 x10^3/uL (0.0-0.2) Prothrombin Time 39.7 SEC (11.7-14.0) Prothromb Time International Ratio 4.2 (0.8-1.1) Activated Partial Thromboplast Time 105 SEC (24-38) Sodium Level 137 mmol/L (136-145) Potassium Level 4.0 mmol/L (3.5-5.1) Chloride Level 99 mmol/L (98-107) Carbon Dioxide Level 31 mmol/L (21-32) Anion Gap 7 (6-14) Blood Urea Nitrogen 22 mg/dL (8-26) Creatinine 0.8 mg/dL (0.7-1.3) Estimated GFR (Cockcroft-Gault) 95.0 Glucose Level 167 mg/dL (70-99) Calcium Level 8.9 mg/dL (8.5-10.1) Test 10/24/20 06:15 Glucose (Fingerstick) 169 mg/dL (70-99) Medications Active Scripts Medications Dose Route/Sig Max Daily Dose Days Date Category Amiodarone Hcl 200 Mg Tablet 400 Mg PO DAILY 09/18/20 Rx [Warfarin Per Pharmacy] 1 EACH Each 1 Each MC PRN DAILY PRN 30 09/18/20 Rx Clopidogrel (Clopidogrel Bisulfate) 75 Mg Tablet 75 Mg PO DAILYWBKFT 09/18/20 Rx Glimepiride 4 Mg Tablet 1 Tab PO DAILY 09/13/20 Reported Furosemide 40 Mg Tablet 1 Tab PO BID 09/13/20 Reported Symbicort 160-4.5 Mcg Inhaler (Budesonide/Formoterol Fumarate) 10.2 Gm Hfa.aer.ad 1 Puff INH DAILY 09/13/20 Reported Losartan-Hctz 100-12.5 Mg Tab (Losartan/Hydrochlorothiazide) 1 Each Tablet 1 Tab PO DAILY 09/13/20 Reported Nitrofurantoin Briscoe-Mcr 100 Mg (Nitrofurantoin Monohyd/M-Cryst) 100 Mg Capsule 1 Cap PO BID 09/13/20 Reported Betamethasone Valerate 60 Ml Lotion 1 TP QHS 09/13/20 Reported Atorvastatin Calcium 40 Mg Tablet 1 Tab PO DAILY 09/13/20 Reported Diltiazem 24Hr Cd (Diltiazem HCl) 240 Mg Cap.er.24h 1 Cap PO DAILY 09/13/20 Reported Nystop (Nystatin) 60 Gm Powder 1 Sudheer TP BID 09/13/20 Reported Humalog (Insulin Lispro) 100 Unit/1 Ml Insuln.pen 0 Units SQ TIDWMEALS 30 08/06/18 Rx Duoneb 0.5-3(2.5) Mg/3 Ml (Albuterol/Ipratropium) 3 Ml Ampul.neb 3 Ml NEB RTQID 30 08/06/18 Rx Aspirin 325 Mg Tablet 325 Mg PO DAILYWBKFT 30 07/22/17 Rx Metoprolol Tartrate 25 Mg Tablet 25 Mg PO BID 30 07/22/17 Rx Montelukast Sodium Tablet (Montelukast Sodium) 10 Mg Tablet 10 Mg PO QHS 07/22/17 Rx Gabapentin 600 Mg Tablet 600 Mg PO BID 30 07/22/17 Rx Pepcid (Famotidine) 20 Mg Tablet 20 Mg PO BID 05/17/13 Reported Impression . 1. Acute on chronic respiratory failure secondary to multifactorial etiologies including hypoglycemic encephalopathy. No evidence of new stroke. 2. Possible sepsis--- on antibiotics 3. Hypoglycemia./ encephalopathy 4. The patient with prior history of cerebrovascular accident with left-sided weakness. 5. Underlying chronic obstructive pulmonary disease. 6. Morbid obesity. 7. Peripheral vascular disease. 8. Abnormal CT chest with bibasilar atelectasis. No significant mucus plugging. Tiny pleural effusion seen. 10/18 Procedure Performed: laparoscopic gastrostomy tube placement (specifically 24 F) Plan . Updated 10/24 Patient is doing well on trach shield on a 24-hour basis. RT blood gases shows no worsening hypercapnia while on trach shield. No apneic breathing reported. I discussed with respiratory therapist. We will continue continue trach shield Status post gastrostomy tube Long-term prognosis poor Discussed with social service, discharge planning in place once court appointed DPOA available Discussed with RN Updated 10/23 Patient did well on trach shield most of the day. Patient was rested on AVAPS last night. RT blood gases shows no worsening hypercapnia while on trach shield. No apneic breathing reported. I discussed with respiratory therapist. We will continue continue trach shield for 24 hours as tolerated. Status post gastrostomy tube Long-term prognosis poor Discussed with social service, discharge planning in place once court appointed DPOA available Discussed with RN Updated 10/22 Patient did well on trach shield most of the day. Patient was rested on AVAPS last night. RT blood gases shows no worsening hypercapnia while on trach shield. No apneic breathing reported. I discussed with respiratory therapist. We will continue continue trach shield for 24 hours as tolerated. Status post gastrostomy tube Long-term prognosis poor Discussed with social service, discharge planning in place once court appointed DPOA available Discussed with RN Updated 10/21 Status post gastrostomy tube Continue AVAPS We will ask respiratory to consider trach shield trial to see if he has any apneic breathing. Not sure he was tried yesterday. If he does tolerate trach shield will check ABGs in 2 hours Long-term prognosis poor Discussed with social service, discharge planning in place once court appointed DPOA available Discussed with RN Updated 10/20 Status post gastrostomy tube Continue AVAPS We will ask respiratory to consider trach shield trial to see if he has any apneic breathing. Long-term prognosis poor Discussed with social service, discharge planning in place once court appointed DPOA available Discussed with RN Updated 10 19 Status post gastrostomy tube Continue AVAPS Long-term prognosis poor Discussed with social service, discharge planning in place updated 10/18 Nephrostomy tube today Spoke with Dr. Bobo Continue pressure support as tolerated updated 10/17 Continue pressure support during the day The a.m. for gastrostomy tube Discussed with RN updated 10/16 Continue pressure support during the day Continues current support Long-term prognosis poor CLINTON PALAFOX MD Oct 24, 2020 10:39
[2020-10-24 11:00] VITALS: BP 108/60
--- NOTE | 2020-10-24 12:09 | PDOC ---
CARDIOLOGY PROGRESS NOTE SUBJECTIVE: Late entry for 10/23/20 Pt. seen and examined. He remains non-responsive to verbal and tactile stimuli No acute events per nursing reports. Tolerating trach OBJECTIVE: Vital Signs/I&O: Vital Signs Date Time Temp Pulse Resp B/P (MAP) Pulse Ox O2 Delivery O2 Flow Rate FiO2 10/24/20 11:59 99 Tracheal Collar 10.0 10/24/20 09:10 87 10/24/20 07:00 99.5 16 115/68 (84) 99.5 I & O 10/23/20 10/23/20 10/24/20 15:00 23:00 07:00 Intake Total 610 ml 1220 ml 0 ml Output Total 600 ml 350 ml Balance 610 ml 620 ml -350 ml Objective: General: No acute distress HEENT: Other (nc at perrl nose clear orally intubated neck no lad no thyromegaly) Lungs: Other (Tracheostomy) Cardiovascular: S1, S2 Abdomen: Soft, Non-tender, Other (Obese) Extremities: Other (1+ edema) Skin: Warm CURRENT MEDICATIONS: Current Medications Medications (Trade) Dose Ordered Sig/Dru Route PRN Reason Start Time Stop Time Status Last Admin Dose Admin Warfarin Sodium (Coumadin) 6 mg 1X WARF ONCE PO 10/23/20 16:00 10/23/20 16:01 DC 10/23/20 17:05 Agatroban DIAGNOSTIC TESTING: Labs reviewed. Labs: Laboratory Tests 10/24/20 06:00 Laboratory Tests Test 10/23/20 12:37 10/23/20 18:17 10/24/20 00:21 10/24/20 06:00 Glucose (Fingerstick) 157 mg/dL (70-99) H 141 mg/dL (70-99) H 146 mg/dL (70-99) H White Blood Count 8.2 x10^3/uL (4.0-11.0) Red Blood Count 3.02 x10^6/uL (4.30-5.70) L Hemoglobin 9.6 g/dL (13.0-17.5) L Hematocrit 28.4 % (39.0-53.0) L Mean Corpuscular Volume 94 fL (79-100) Mean Corpuscular Hemoglobin 32 pg (25-35) Mean Corpuscular Hemoglobin Concent 34 g/dL (31-37) Red Cell Distribution Width 16.1 % (11.5-14.5) H Platelet Count 235 x10^3/uL (140-400) Neutrophils (%) (Auto) 60 % (31-73) Lymphocytes (%) (Auto) 27 % (24-48) Monocytes (%) (Auto) 7 % (0-9) Eosinophils (%) (Auto) 5 % (0-3) H Basophils (%) (Auto) 1 % (0-3) Neutrophils # (Auto) 4.9 x10^3/uL (1.8-7.7) Lymphocytes # (Auto) 2.2 x10^3/uL (1.0-4.8) Monocytes # (Auto) 0.6 x10^3/uL (0.0-1.1) Eosinophils # (Auto) 0.4 x10^3/uL (0.0-0.7) Basophils # (Auto) 0.1 x10^3/uL (0.0-0.2) Prothrombin Time 39.7 SEC (11.7-14.0) H Prothromb Time International Ratio 4.2 (0.8-1.1) H Activated Partial Thromboplast Time 105 SEC (24-38) H Sodium Level 137 mmol/L (136-145) Potassium Level 4.0 mmol/L (3.5-5.1) Chloride Level 99 mmol/L (98-107) Carbon Dioxide Level 31 mmol/L (21-32) Anion Gap 7 (6-14) Blood Urea Nitrogen 22 mg/dL (8-26) Creatinine 0.8 mg/dL (0.7-1.3) Estimated GFR (Cockcroft-Gault) 95.0 Glucose Level 167 mg/dL (70-99) H Calcium Level 8.9 mg/dL (8.5-10.1) Test 10/24/20 06:15 10/24/20 11:51 Glucose (Fingerstick) 169 mg/dL (70-99) H 171 mg/dL (70-99) H ASSESSMENT: 1. Ischemic CMP 2. HTN 3. COPD 4. Morbid obesity 5. R pop artery aneurysm. PLAN: 1. Continue anticoagulation with warfarin. Home on plavix and warfarin 2. Await goals of care discussion when DPOA appointed. Thanks. Justicifation of Admission Dx: Justifications for Admission: Justification of Admission Dx: Yes CHF: Cardiac Arrhythmias EMELIA GRAY MD Oct 24, 2020 12:09
--- NOTE | 2020-10-24 12:23 | NUR ---
SS following up with discharge planning. SS reviewed pt chart and discussed with pt RN. Pt is currently on trach shield at 10 liters. COVID19 negative. Pt on IV Lasix. Pt has G tube. Jevity 1.5. SS discussed with Dr. Hurd. Pt was admitted from [facility], ; fax [phone]. [facility] stated that they can do trach shield. SS phoned and faxed referral to [facility]. SS will continue to follow for discharge planning. Addendum: 10/24/20 at 1531 by CHIKIS JO SS Pt declined at [facility] due to being medically too complex for detention unit. Pt needing Guardian or DPOA for acceptance at [facility]. Pt unresponsive.
[2020-10-24 15:18] LABS: PROTHROMBIN TIME PATIENT 32.8 SEC (11.7-14.0)
[2020-10-24 15:20] VITALS: BP 111/62
[2020-10-24] MEDS ORDERED: WARFARIN 4 MG TABLET. PO ONE ×2 (16:00)
--- NOTE | 2020-10-24 16:45 | NUR ---
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 Target range for this patient is: 2 -3 P: Warfarin dose: 4 mg Today at 1600 Bridge Therapy:NONE Next INR due IN AM Pharmacy anticoagulation service will continue to follow. BETI SHEA Dena, 10/24/20 [id number]
[2020-10-24 19:00] VITALS: BP 120/68
[2020-10-24 22:48] VITALS: BP 120/68
[2020-10-25 02:37] VITALS: BP 127/77
[2020-10-25] MEDS: INSULIN LISPRO 300 UNITS/3 ML VIAL. SQ SCH ×4 (05:35→17:38)
[2020-10-25 05:39] LABS: BASO # 0.1 x10^3/uL (0.0-0.2); BASO % 1 % (0-3); EOS # 0.5 x10^3/uL (0.0-0.7); EOS % 6 % (0-3); HEMATOCRIT 28.1 % (39.0-53.0); HEMOGLOBIN 9.4 g/dL (13.0-17.5); LYMPH # 2.3 x10^3/uL (1.0-4.8); LYMPH % 30 % (24-48); MEAN CORPUSCULAR HEMOGLOBIN 31 pg (25-35); MEAN CORPUSCULAR HGB CONC 33 g/dL (31-37); MEAN CORPUSCULAR VOLUME 93 fL (79-100); MONO # 0.5 x10^3/uL (0.0-1.1); MONO % 7 % (0-9); NEUT # 4.4 x10^3/uL (1.8-7.7); NEUT % 57 % (31-73); PLATELET COUNT 241 x10^3/uL (140-400); RED BLOOD COUNT 3.01 x10^6/uL (4.30-5.70); WHITE BLOOD COUNT 7.8 x10^3/uL (4.0-11.0)
[2020-10-25 05:46] LABS: PROTHROMBIN TIME PATIENT 25.2 SEC (11.7-14.0)
[2020-10-25 05:49] LABS: CREATININE 0.8 mg/dL (0.7-1.3); POTASSIUM 4.5 mmol/L (3.5-5.1)
[2020-10-25 07:00] VITALS: BP 122/66
[2020-10-25] MEDS: POTASSIUM BICARB 20 MEQ EFFERVESCENT TABLET. PEG SCH (09:07)
[2020-10-25] MEDS: ASPIRIN CHEWABLE 81 MG TABLET. PO SCH (09:07)
[2020-10-25] MEDS: CLOPIDOGREL BISULFATE 75 MG TABLET PO SCH (09:08)
[2020-10-25] MEDS: FUROSEMIDE 40 MG/4 ML VIAL. IVP SCH (09:08)
[2020-10-25] MEDS: PANTOPRAZOLE IV PUSH 40 MG VIAL. IVP SCH (09:08)
[2020-10-25] MEDS: AMIODARONE HCL 200 MG TABLET. PO SCH (09:08)
[2020-10-25] MEDS: METOPROLOL TART IMMED RELEASE 25 MG TABLET. PO SCH ×2 (09:09→21:19)
--- NOTE | 2020-10-25 09:43 | PDOC ---
PROGRESS NOTES Date of Service: DATE: 10/25/20 TIME: 09:42 Chief Complaint Chief Complaint impression Acute anemia Acute metabolic, infectious encephalopathy Acute respiratory failure Healthcare associated pneumonia Acute hypoglycemia Hypokalemia Elevated troponins Severe protein malnutrition Morbid obesity AAA, 4 cm, infrarenal History of diabetes mellitus type 2 History of dyslipidemia history of hypertension History of recent STEMI History of CAD History of peripheral artery disease History of JEANNE History of CVA History of paroxysmal atrial fibrillation Ischemic cardiomyopathy History of Present Illness History of Present Illness Mr Andrews is a 70-year-old male with a recent prolonged hospitalization for STEMI and respiratory failure for which she was treated with arterial thrombolysis for a right leg popliteal artery aneurysm and also had left heart cath with placement of a stent in the LAD and RCA comes in today after he was found obtunded at his [facility] facility. Apparently according to the nursing facility patient was in his usual state of health and he was conversational but then became altered. His blood glucose was found to be in the 30s. Glucose tabs and glucagon was given in route and his GCS reported at 6. Upon arrival patient's mental status did not improve and he was eventually intubated for airway protection. Of note EMS was bagging the patient through the nasal access. In the ED, patient was placed on a vent and pulmonology was consulted. Patient was also taken to the CT scanner for sanders scanning. Patient was started to wake up on the vent and sedation was ordered. 09/23: Patient examined at bedside. Intubated. Not on any sedation but unresponsive. Neurology consult in place. 09/24: Patient seen and examined at bedside. Remains intubated he is off sedation but still remains unresponsive. Planning for MRI brain in the morning. Further plan to be determined by MRI. 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 09/25: Afebrile, currently breathing on ventilator with FiO2 50%, PEEP 5. Had CODE BLUE in ICU this morning; received 2 rounds of CPR, epinephrine, and atropine with ROSC. MRI brain negative. Made DNR, and after discussion with Dr. Rubalcava he agrees. 09/26:: Afebrile. Still on vent, with FiO2 45%, PEEP 5. After discussion with Dr. Rubalcava yesterday, patient was made DNR. In the ED is likely a poor candidate for weaning trials may need trach in near future if no significant improvement. 09/27:: Afebrile. On vent with FiO2 40%, PEEP 5. Potassium 2.8 today, will replace. Warfarin has been resumed. Discussed with pharmacy, will resume aspirin and Plavix. May need tracheostomy by the end of the week if no improvement in mental status. 09/28:: Afebrile. On ventilator with FiO2 40%, PEEP 5. Warfarin has been res umed; INR 1.3 today. Some morning labs still pending; hemoglobin yesterday 7.3, will continue to monitor. Continue IV cefepime and supportive care. 09/29: Afebrile. Breathing on vent with FiO2 40%, PEEP 5. INR 1.2 today; pharmacy to help with warfarin dosing. White count within normal range, renal function stable. Spoke with pharmacy about cefepime 1 g every 8 hours dosing; this has been changed to cefepime 2 g every 8 hours. 09/30: Afebrile. Currently breathing on vent with FiO2 40%, PEEP 5. Continue antibiotics, cefepime 2 g every 8 hours. INR 1.4; continue warfarin dosing per pharmacy. Possible tracheostomy at some point. Critical care time 30 minutes reviewing charts, labs, examination, discussion with RN. 10/01: T-max 100.3 F. On ventilator with FiO2 40%, PEEP 5. Continue antibiotics, cefepime 2 g every 8 hours. INR 1.4, still subtherapeutic; continue warfarin dosing per pharmacy. Possible tracheostomy at some point. 10/02: No acute events overnight. Patient saturating 99% on vent settings of 1 0/450/40/5. Patient will likely need a trach and PEG at some point. We will hold warfarin and start 2 units PRBC transfusion. Patient's chart, labs, images were reviewed and discussed with RN 10/03: No acute events overnight. Patient sat 100% on minimal vent settings. No sedation at this point and patient is opening his eyes spontaneously. Not much response or spontaneous movements. Surgery has been consulted for tracheostomy. Patient will also likely need a PEG tube. 10/04: No acute events overnight. Patient saturating 90% on minimal vent settings. T-max 100.4 overnight. Plan for trach tomorrow with surgery. Patient's chart, labs, images were reviewed and discussed with RN 10/05: No acute events overnight. Patient saturating 99% on minimal vent settings. Plan for tracheostomy today. Consent is provided by authorization by 2 physicians due to patient having no close relatives or DPOA. Will resume heparin and warfarin bridging tomorrow after tracheostomy 10/07: No acute events overnight. Patient seen and examined bedside. On trach vent. Saturating 99%. Pending GI evaluation for possible PEG placement after discussing with cardiology whether to continue with Plavix. Possibly place PEG if patient is only on aspirin and stopping argatroban. 10/08: No acute events overnight. Patient continues to be on trach mechanical vent. Saturating 100%. Pending decision from GI whether to proceed with PEG placement depending on the type of anticoagulation patient will be on. 10/09: No overnight events. On trach with vent support 40% FiO2 PEEP of 5. Currently argatroban and propofol for minimal sedation. When sedation is weaned he has no meaningful movements but has pulled at his tracheostomy site. Unable to hold plavix due to recently placed stents. 10/10: Afebrile today. On trach with vent support 40% FiO2 PEEP of 5. Continue argatroban and changed to Aggrastat in anticipation of surgical consultation for potential laparoscopic PEG placement. INR 1.6. Hb greater than 9 no significant neurologic recovery today. 10/11: Afebrile. On trach with vent support 40% FiO2 PEEP of 5. INR 1.8. Not making meaningful eye contact. Labs otherwise stable. 10/12: Afebrile. Trach with vent support 40% FiO2 PEEP five O2 saturations 92%. INR 1.8, mag 1.8, Hb 8.4. Not following commands. Tentative plans for surgical PEG next week. 10/13: Afebrile. Trach with vent support 40% FiO2 PEEP 5. Eyes open, not tracking or following commands. Holding Plavix. On argatroban. 10/14: Afebrile. Trach with vent support 40% FiO2 PEEP of 5. Will open eyes intermittently not necessarily to voice. Good urine output. Labs stable. 10/15: Afebrile overnight. Trach with vent AC 40% fio2 PEEP 5. Had a very large bowel movement. Still not tracking. Hb 9, INR 1.7, glucose 144. Tentative plan for PEG 10/18/2020 CC time 30 minutes 9/6/21: Patient seen and examined in the ICU. He was resting and still on vent via trach. Has NG running via Dobhoff, feeding at 40cc/hr. AC/10/450/40% plus 5 PEEP. Discussed with RN. Chart reviewed. 10/17/20: Patient was seen and examined in the ICU today. Still on vent via trach at AC/10/450/40 plus 5 PEEP. While examined, patient was at 100% O2 saturation. Has SCDs on for DVT prophylaxis. Stauffer catheter in place. On IV argatroban. R subclavian triple lumen in place. Dobhoff running at 40cc/hr. Discussed with RN. Chart reviewed. 10/18/20: Patient seen and examined in ICU. His eyes are open. On vent via trach with settings that were recently changed to spontaneous respirations with FiO2 of 40 and 5 PEEP. Trach is clean and dry. Currently, oxygen saturation is at 100%. Stauffer to bedside and rectal bag in place. Discussed with RN. Chart revi ewed. 10/19/20: Patient was seen and examined in the ICU today. His eyes were open and he was resting. On BiPAP via trach AVAPS/10/450/40 plus 5 PEEP. Trach is clean and dry. Has SCDs for DVT prophylaxis. Patient has rectal bag, Stauffer to bedside, and NG tube in place. Discussed with RN. Chart reviewed. 10/20/20 No acute events overnight. Patient seen and examined bedside. Transferred from the ICU. Continues to be nonverbal and not following much commands. Opens eyes to voice. Currently on BiPAP via trach on AVAPS setting 10/450/40 PEEP of 5. Trach site is clear. No signs of infections. Patient's chart, labs, images were reviewed and discussed with RN 10/21/2020 No acute events overnight. Patient seen and examined bedside. Afebrile. Cont inues to be nonverbal but opens eyes to voice. Currently on BiPAP. Patient's chart, labs, images were reviewed and discussed with RN. 10/22/2020 No acute events overnight. Patient seen examined bedside. Continue with argatroban until warfarin goal INR of 4 and maintenance goal of 2-3. Please see rfid analyst note. Pending appointing a legal guardian. Patient's chart, labs, images were reviewed and discussed with RN 10/23/2020 laparoscopic gastrostomy tube placement (specifically 24 F) Oct discharge planning in place once court appointed DPOA available Acute anemia Acute metabolic, infectious encephalopathy Acute respiratory failure Healthcare associated pneumonia Acute hypoglycemia Hypokalemia Elevated troponins Severe protein malnutrition Morbid obesity AAA, 4 cm, infrarenal History of diabetes mellitus type 2 History of dyslipidemia history of hypertension Patient seen examined bedside. argatroban until warfarin goal INR of 4 and maintenance goal of 2-3. Pending appointing a legal guardian. Patient's chart, labs, images were reviewed and discussed with KARY Cardenas Enteric tube with metallic tip in the left upper quadrant likely in the stomach. 10/24/2020 doing well on trach shield on a 24-hour basis./ blood gases shows no worsening hypercapnia while on trach shield. No apneic breathing reported. laparoscopic gastrostomy tube placement (specifically 24 F) Oct discharge planning in place once court appointed DPOA available Acute anemia Acute metabolic, infectious encephalopathy Acute respiratory failure Healthcare associated pneumonia Acute hypoglycemia Hypokalemia Elevated troponins Severe protein malnutrition Morbid obesity AAA, 4 cm, infrarenal History of diabetes mellitus type 2 History of dyslipidemia history of hypertension Patient seen examined bedside. argatroban until warfarin goal INR of 4 and maintenance goal of 2-3. Pending appointing a legal guardian. Patient's chart, labs, images were reviewed and discussed with KARY Cardenas Enteric tube with metallic tip in the left upper quadrant likely in the stomach. Home on plavix and warfarin D/C INITIAL PLAN TO [facility] PENDING/ discharge planning in place once court appointed DPOA available D/W RN 10/25/2020 doing well on trach shield on a 24-hour basis./ blood gases shows no worsening hypercapnia while on trach shield. No apneic breathing reported. laparoscopic gastrostomy tube placement (specifically 24 F) Oct discharge planning in place once court appointed DPOA available Acute anemia Acute metabolic, infectious encephalopathy Acute respiratory failure Healthcare associated pneumonia Acute hypoglycemia Hypokalemia Elevated troponins Severe protein malnutrition Morbid obesity AAA, 4 cm, infrarenal History of diabetes mellitus type 2 History of dyslipidemia history of hypertension Patient seen examined bedside. argatroban until warfarin goal INR of 4 and maintenance goal of 2-3. Pending appointing a legal guardian. Patient's chart, labs, images were reviewed and discussed with KARY Cardenas Enteric tube with metallic tip in the left upper quadrant likely in the stomach. Home on plavix and warfarin D/C INITIAL PLAN TO [facility] PENDING/ discharge planning in place once court appointed DPOA available D/W RN Vitals Vitals Vital Signs Date Time Temp Pulse Resp B/P (MAP) Pulse Ox O2 Delivery O2 Flow Rate FiO2 10/25/20 09:09 93 122/66 10/25/20 07:00 99.4 16 100 BiPAP/CPAP 99.4 10/25/20 03:42 15.0 Physical Exam General: Alert, Cooperative, No acute distress Heart: Regular rate (SR), Other (distatne heart sounds) Lungs: Other (Tracheostomy) Abdomen: Soft, Other (g tube in place) Extremities: No cyanosis, Other (2-3+ bilateral LE pitting edema) Skin: No rashes, No significant lesion Labs LABS Laboratory Tests Test 10/24/20 11:51 10/24/20 14:45 10/24/20 17:41 10/25/20 00:07 Glucose (Fingerstick) 171 mg/dL (70-99) 144 mg/dL (70-99) 146 mg/dL (70-99) Prothrombin Time 32.8 SEC (11.7-14.0) Prothromb Time International Ratio 3.3 (0.8-1.1) Test 10/25/20 05:15 10/25/20 05:22 White Blood Count 7.8 x10^3/uL (4.0-11.0) Red Blood Count 3.01 x10^6/uL (4.30-5.70) Hemoglobin 9.4 g/dL (13.0-17.5) Hematocrit 28.1 % (39.0-53.0) Mean Corpuscular Volume 93 fL (79-100) Mean Corpuscular Hemoglobin 31 pg (25-35) Mean Corpuscular Hemoglobin Concent 33 g/dL (31-37) Red Cell Distribution Width 16.0 % (11.5-14.5) Platelet Count 241 x10^3/uL (140-400) Neutrophils (%) (Auto) 57 % (31-73) Lymphocytes (%) (Auto) 30 % (24-48) Monocytes (%) (Auto) 7 % (0-9) Eosinophils (%) (Auto) 6 % (0-3) Basophils (%) (Auto) 1 % (0-3) Neutrophils # (Auto) 4.4 x10^3/uL (1.8-7.7) Lymphocytes # (Auto) 2.3 x10^3/uL (1.0-4.8) Monocytes # (Auto) 0.5 x10^3/uL (0.0-1.1) Eosinophils # (Auto) 0.5 x10^3/uL (0.0-0.7) Basophils # (Auto) 0.1 x10^3/uL (0.0-0.2) Prothrombin Time 25.2 SEC (11.7-14.0) Prothromb Time International Ratio 2.3 (0.8-1.1) Sodium Level 136 mmol/L (136-145) Potassium Level 4.5 mmol/L (3.5-5.1) Chloride Level 98 mmol/L (98-107) Carbon Dioxide Level 34 mmol/L (21-32) Anion Gap 4 (6-14) Blood Urea Nitrogen 21 mg/dL (8-26) Creatinine 0.8 mg/dL (0.7-1.3) Estimated GFR (Cockcroft-Gault) 95.0 Glucose Level 139 mg/dL (70-99) Calcium Level 9.0 mg/dL (8.5-10.1) Glucose (Fingerstick) 139 mg/dL (70-99) Assessment and Plan Assessmemt and Plan Problems Medical Problems: (1) NSTEMI (non-ST elevated myocardial infarction) Status: Acute (2) Obtundation Status: Acute (3) Respiratory arrest Status: Acute Comment Review of Relevant I have reviewed the following items denise (where applicable) has been applied. Labs Laboratory Tests Test 10/23/20 12:37 10/23/20 18:17 10/24/20 00:21 10/24/20 06:00 Glucose (Fingerstick) 157 mg/dL (70-99) 141 mg/dL (70-99) 146 mg/dL (70-99) White Blood Count 8.2 x10^3/uL (4.0-11.0) Red Blood Count 3.02 x10^6/uL (4.30-5.70) Hemoglobin 9.6 g/dL (13.0-17.5) Hematocrit 28.4 % (39.0-53.0) Mean Corpuscular Volume 94 fL (79-100) Mean Corpuscular Hemoglobin 32 pg (25-35) Mean Corpuscular Hemoglobin Concent 34 g/dL (31-37) Red Cell Distribution Width 16.1 % (11.5-14.5) Platelet Count 235 x10^3/uL (140-400) Neutrophils (%) (Auto) 60 % (31-73) Lymphocytes (%) (Auto) 27 % (24-48) Monocytes (%) (Auto) 7 % (0-9) Eosinophils (%) (Auto) 5 % (0-3) Basophils (%) (Auto) 1 % (0-3) Neutrophils # (Auto) 4.9 x10^3/uL (1.8-7.7) Lymphocytes # (Auto) 2.2 x10^3/uL (1.0-4.8) Monocytes # (Auto) 0.6 x10^3/uL (0.0-1.1) Eosinophils # (Auto) 0.4 x10^3/uL (0.0-0.7) Basophils # (Auto) 0.1 x10^3/uL (0.0-0.2) Prothrombin Time 39.7 SEC (11.7-14.0) Prothromb Time International Ratio 4.2 (0.8-1.1) Activated Partial Thromboplast Time 105 SEC (24-38) Sodium Level 137 mmol/L (136-145) Potassium Level 4.0 mmol/L (3.5-5.1) Chloride Level 99 mmol/L (98-107) Carbon Dioxide Level 31 mmol/L (21-32) Anion Gap 7 (6-14) Blood Urea Nitrogen 22 mg/dL (8-26) Creatinine 0.8 mg/dL (0.7-1.3) Estimated GFR (Cockcroft-Gault) 95.0 Glucose Level 167 mg/dL (70-99) Calcium Level 8.9 mg/dL (8.5-10.1) Test 10/24/20 06:15 10/24/20 11:51 10/24/20 14:45 10/24/20 17:41 Glucose (Fingerstick) 169 mg/dL (70-99) 171 mg/dL (70-99) 144 mg/dL (70-99) Prothrombin Time 32.8 SEC (11.7-14.0) Prothromb Time International Ratio 3.3 (0.8-1.1) Test 10/25/20 00:07 10/25/20 05:15 10/25/20 05:22 Glucose (Fingerstick) 146 mg/dL (70-99) 139 mg/dL (70-99) White Blood Count 7.8 x10^3/uL (4.0-11.0) Red Blood Count 3.01 x10^6/uL (4.30-5.70) Hemoglobin 9.4 g/dL (13.0-17.5) Hematocrit 28.1 % (39.0-53.0) Mean Corpuscular Volume 93 fL (79-100) Mean Corpuscular Hemoglobin 31 pg (25-35) Mean Corpuscular Hemoglobin Concent 33 g/dL (31-37) Red Cell Distribution Width 16.0 % (11.5-14.5) Platelet Count 241 x10^3/uL (140-400) Neutrophils (%) (Auto) 57 % (31-73) Lymphocytes (%) (Auto) 30 % (24-48) Monocytes (%) (Auto) 7 % (0-9) Eosinophils (%) (Auto) 6 % (0-3) Basophils (%) (Auto) 1 % (0-3) Neutrophils # (Auto) 4.4 x10^3/uL (1.8-7.7) Lymphocytes # (Auto) 2.3 x10^3/uL (1.0-4.8) Monocytes # (Auto) 0.5 x10^3/uL (0.0-1.1) Eosinophils # (Auto) 0.5 x10^3/uL (0.0-0.7) Basophils # (Auto) 0.1 x10^3/uL (0.0-0.2) Prothrombin Time 25.2 SEC (11.7-14.0) Prothromb Time International Ratio 2.3 (0.8-1.1) Sodium Level 136 mmol/L (136-145) Potassium Level 4.5 mmol/L (3.5-5.1) Chloride Level 98 mmol/L (98-107) Carbon Dioxide Level 34 mmol/L (21-32) Anion Gap 4 (6-14) Blood Urea Nitrogen 21 mg/dL (8-26) Creatinine 0.8 mg/dL (0.7-1.3) Estimated GFR (Cockcroft-Gault) 95.0 Glucose Level 139 mg/dL (70-99) Calcium Level 9.0 mg/dL (8.5-10.1) Laboratory Tests Test 10/24/20 11:51 10/24/20 14:45 10/24/20 17:41 10/25/20 00:07 Glucose (Fingerstick) 171 mg/dL (70-99) 144 mg/dL (70-99) 146 mg/dL (70-99) Prothrombin Time 32.8 SEC (11.7-14.0) Prothromb Time International Ratio 3.3 (0.8-1.1) Test 10/25/20 05:15 10/25/20 05:22 White Blood Count 7.8 x10^3/uL (4.0-11.0) Red Blood Count 3.01 x10^6/uL (4.30-5.70) Hemoglobin 9.4 g/dL (13.0-17.5) Hematocrit 28.1 % (39.0-53.0) Mean Corpuscular Volume 93 fL (79-100) Mean Corpuscular Hemoglobin 31 pg (25-35) Mean Corpuscular Hemoglobin Concent 33 g/dL (31-37) Red Cell Distribution Width 16.0 % (11.5-14.5) Platelet Count 241 x10^3/uL (140-400) Neutrophils (%) (Auto) 57 % (31-73) Lymphocytes (%) (Auto) 30 % (24-48) Monocytes (%) (Auto) 7 % (0-9) Eosinophils (%) (Auto) 6 % (0-3) Basophils (%) (Auto) 1 % (0-3) Neutrophils # (Auto) 4.4 x10^3/uL (1.8-7.7) Lymphocytes # (Auto) 2.3 x10^3/uL (1.0-4.8) Monocytes # (Auto) 0.5 x10^3/uL (0.0-1.1) Eosinophils # (Auto) 0.5 x10^3/uL (0.0-0.7) Basophils # (Auto) 0.1 x10^3/uL (0.0-0.2) Prothrombin Time 25.2 SEC (11.7-14.0) Prothromb Time International Ratio 2.3 (0.8-1.1) Sodium Level 136 mmol/L (136-145) Potassium Level 4.5 mmol/L (3.5-5.1) Chloride Level 98 mmol/L (98-107) Carbon Dioxide Level 34 mmol/L (21-32) Anion Gap 4 (6-14) Blood Urea Nitrogen 21 mg/dL (8-26) Creatinine 0.8 mg/dL (0.7-1.3) Estimated GFR (Cockcroft-Gault) 95.0 Glucose Level 139 mg/dL (70-99) Calcium Level 9.0 mg/dL (8.5-10.1) Glucose (Fingerstick) 139 mg/dL (70-99) Medications Current Medications Fentanyl Citrate 30 ml @ 0 mls/hr CONT PRN IV SEE PROTOCOL; Start 09/22/20 at 09:45; Stop 10/13/20 at 09:24; Status DC Propofol 100 ml @ 0 mls/hr CONT PRN IV PER PROTOCOL Last administered on 09/22/20at 10:30; Start 09/22/20 at 09:45; Stop 09/26/20 at 20:12; Status DC Fentanyl Citrate (Fentanyl 2ml Vial) 25 mcg PRN Q1HR PRN IV SEE COMMENTS; Start 09/22/20 at 09:45; Stop 10/24/20 at 18:57; Status DC Fentanyl Citrate (Fentanyl 2ml Vial) 50 mcg PRN Q1HR PRN IV SEE COMMENTS Last administered on 10/03/20at 01:22; Start 09/22/20 at 09:45; Stop 10/24/20 at 18:57; Status DC Chlorhexidine Gluconate (Peridex) 15 ml BID MM ; Start 09/22/20 at 10:00; Stop 09/22/20 at 19:54; Status DC Midazolam HCl (Versed) 2 mg 1X ONCE IV ; Start 09/22/20 at 10:30; Stop 09/22/20 at 10:31; Status DC Iohexol (Omnipaque 300 Mg/ml) 75 ml 1X ONCE IV Last administered on 09/22/20at 11:06; Start 09/22/20 at 10:45; Stop 09/22/20 at 10:46; Status DC Info (CONTRAST GIVEN -- Rx MONITORING) 1 each PRN DAILY PRN MC SEE COMMENTS; Start 09/22/20 at 10:45; Stop 09/24/20 at 10:44; Status DC Potassium Chloride/Water 100 ml @ 100 mls/hr Q1H IV Last administered on 09/22/20at 20:27; Start 09/22/20 at 15:00; Stop 09/22/20 at 18:59; Status DC Cefepime HCl (Maxipime) 1 gm Q8HRS IVP Last administered on 09/29/20at 05:52; Start 09/22/20 at 14:00; Stop 09/29/20 at 10:32; Status DC Sennosides (Senna) 17.2 mg PRN BID PRN PO CONSTIPATION; Start 09/22/20 at 14:00 Docusate Sodium (Colace) 100 mg PRN DAILY PRN PO HARD STOOLS; Start 09/22/20 at 14:00; Stop 09/22/20 at 14:00; Status DC Ondansetron HCl (Zofran) 4 mg PRN Q6HRS PRN IVP NAUSEA/VOMITING, 1ST CHOICE; Start 09/22/20 at 14:00 Insulin Human Lispro (HumaLOG) 0-7 UNITS Q6HRS SQ Last administered on 10/23/20at 12:49; Start 09/22/20 at 18:00 Dextrose (Dextrose 50%-Water Syringe) 12.5 gm PRN Q15MIN PRN IV SEE COMMENTS Last administered on 09/22/20at 17:47; Start 09/22/20 at 14:00 Dextrose/Sodium Chloride 1,000 ml @ 50 mls/hr Q20H IV Last administered on 10/12/20at 11:04; Start 09/22/20 at 14:00; Stop 10/13/20 at 09:24; Status DC Acetaminophen (Tylenol) 650 mg PRN Q4HRS PRN PO TEMP OVER 100.4F OR MILD PAIN Last administered on 09/23/20at 00:20; Start 09/22/20 at 14:00; Stop 09/23/20 at 16:24; Status DC Enoxaparin Sodium (Lovenox 40mg Syringe) 40 mg Q24H SQ ; Start 09/22/20 at 14:00; Status UNV Pantoprazole Sodium (PROTONIX VIAL for IV PUSH) 40 mg DAILY IVP Last administered on 10/25/20at 09:08; Start 09/23/20 at 09:00 Prochlorperazine Edisylate (Compazine) 10 mg PRN Q6HRS PRN IV NAUSEA/VOMITING, 2ND CHOICE; Start 09/22/20 at 14:00 Etomidate (Amidate) 20 mg STK-MED ONCE IV ; Start 09/22/20 at 17:46; Stop 09/22/20 at 17:46; Status DC Rocuronium [place] (Zemuron) 50 mg STK-MED ONCE .ROUTE ; Start 09/22/20 at 17:46; Stop 09/22/20 at 17:47; Status DC Norepinephrine Bitartrate 8 mg/ Dextrose 258 ml @ 21.769 mls/ hr CONT PRN IV PER PROTOCOL Last administered on 09/24/20at 13:20; Start 09/22/20 at 18:15; Stop 10/13/20 at 09:24; Status DC Potassium Chloride/Water 100 ml @ 100 mls/hr Q1H IV Last administered on 09/23at 14:30; Start 09/23/20 at 07:00; Stop 09/23/20 at 14:59; Status DC Acetaminophen (Tylenol) 650 mg PRN Q6HRS PRN PEG MILD PAIN / TEMP > 100.3'F Last administered on 10/24/20at 09:06; Start 09/23/20 at 16:30 Warfarin Sodium (Coumadin Per Pharmacy) 1 each PRN DAILY PRN MC SEE COMMENTS Last administered on 10/01/20at 12:32; Start 09/24/20 at 12:30; Stop 10/02/20 at 05:55; Status DC Warfarin Sodium (Coumadin) 5 mg 1X WARF ONCE PO Last administered on 09/24/20at 17:42; Start 09/24/20 at 16:00; Stop 09/24/20 at 16:01; Status DC Warfarin Sodium (Coumadin - No Dose Today) 1 each 1X WARF ONCE MC ; Start 09/25/20 at 16:00; Stop 09/25/20 at 16:01; Status DC Warfarin Sodium (Coumadin) 1 mg 1X WARF ONCE PO Last administered on 09/26/20at 16:00; Start 09/26/20 at 16:00; Stop 09/26/20 at 16:01; Status DC Propofol 100 ml @ 3.174 mls/ hr CONT PRN IV PER PROTOCOL Last administered on 10/09/20at 04:43; Start 09/26/20 at 20:15; Stop 10/13/20 at 09:24; Status DC Atropine Sulfate (ATROPINE 1mg SYRINGE) 1 mg STK-MED ONCE .ROUTE ; Start 09/25/20 at 10:00; Stop 09/27/20 at 08:20; Status DC Epinephrine HCl (EPINEPHrine SYRINGE) 1 mg STK-MED ONCE .ROUTE ; Start 09/25/20 at 10:00; Stop 09/27/20 at 08:20; Status DC Warfarin Sodium (Coumadin) 2 mg 1X WARF ONCE PO Last administered on 09/27/20at 17:53; Start 09/27/20 at 16:00; Stop 09/27/20 at 16:01; Status DC Aspirin (Aspirin Chewable) 81 mg DAILYWBKFT PO Last administered on 10/06/20at 11:39; Start 09/27/20 at 09:30; Stop 10/06/20 at 16:23; Status DC Clopidogrel Bisulfate (Plavix) 75 mg DAILYWBKFT PO Last administered on 10/09/20at 09:24; Start 09/27/20 at 09:30; Stop 10/09/20 at 17:03; Status DC Potassium Chloride/Water 100 ml @ 100 mls/hr Q1H IV Last administered on 09/27/20at 12:45; Start 09/27/20 at 11:30; Stop 09/27/20 at 13:29; Status DC Warfarin Sodium (Coumadin) 3 mg 1X WARF ONCE PO Last administered on 09/28/20at 18:18; Start 09/28/20 at 16:00; Stop 09/28/20 at 16:01; Status DC Cefepime HCl (Maxipime) 2 gm Q8HRS IVP Last administered on 10/20/20at 05:36; Start 09/29/20 at 14:00; Stop 10/20/20 at 13:23; Status DC Warfarin Sodium (Coumadin) 3 mg 1X WARF ONCE PO Last administered on 09/29/20at 16:55; Start 09/29/20 at 16:00; Stop 09/29/20 at 16:01; Status DC Warfarin Sodium (Coumadin) 3 mg 1X WARF ONCE PO Last administered on 09/30/20at 16:00; Start 09/30/20 at 16:00; Stop 09/30/20 at 16:01; Status DC Warfarin Sodium (Coumadin) 5 mg 1X WARF ONCE PO Last administered on 10/01/20at 16:35; Start 10/01/20 at 16:00; Stop 10/01/20 at 16:01; Status DC Multi-Ingred Cream/Lotion/Oil/ Oint (Artificial Tears Eye Ointment) 1 sudheer PRN Q1HR PRN OU DRY EYE Last administered on 10/03/20at 12:24; Start 10/02/20 at 12:45 Fentanyl Citrate (Fentanyl 2ml Vial) 25 mcg PRN Q5MIN PRN IVP MILD PAIN 1-3; Start 10/05/20 at 06:00; Stop 10/06/20 at 05:59; Status DC Fentanyl Citrate (Fentanyl 2ml Vial) 50 mcg PRN Q5MIN PRN IVP MODERATE PAIN 4- 6; Start 10/05/20 at 06:00; Stop 10/06/20 at 05:59; Status DC Morphine Sulfate (Morphine Sulfate) 1 mg PRN Q10MIN PRN IVP SEVERE PAIN 7-10; Start 10/05/20 at 06:00; Stop 10/06/20 at 05:59; Status UNV Ringer's Solution 1,000 ml @ 30 mls/hr Q24H IV ; Start 10/05/20 at 06:00; Stop 10/05/20 at 17:59; Status DC Hydromorphone HCl (Dilaudid) 0.5 mg PRN Q10MIN PRN IVP SEVERE PAIN 7-10, 2nd CHOICE; Start 10/05/20 at 06:00; Stop 10/06/20 at 05:59; Status UNV Prochlorperazine Edisylate (Compazine) 5 mg PACU PRN PRN IVP NAUSEA, MRX1; Start 10/05/20 at 06:00; Stop 10/06/20 at 05:59; Status DC Bupivacaine HCl/ Epinephrine Bitart (Sensorcain-Epi 0.5%-1:[id number] Mpf) 30 ml STK-MED ONCE .ROUTE Last administered on 10/05/20at 10:09; Start 10/05/20 at 07:12; Stop 10/05/20 at 07:12; Status DC Cellulose (Surgicel Fibrillar 1x2) 1 each STK-MED ONCE .ROUTE Last administered on 10/05/20at 10:30; Start 10/05/20 at 07:12; Stop 10/05/20 at 07:12; Status DC Rocuronium [place] (Zemuron) 50 mg STK-MED ONCE .ROUTE ; Start 10/05/20 at 09:06; Stop 10/05/20 at 09:06; Status DC Rocuronium [place] (Zemuron) 50 mg STK-MED ONCE .ROUTE ; Start 10/05/20 at 10:10; Stop 10/05/20 at 10:10; Status DC Warfarin Sodium (Coumadin Per Pharmacy) 1 each PRN DAILY PRN MC SEE COMMENTS Last administered on 10/06/20at 09:32; Start 10/05/20 at 14:00; Stop 10/06/20 at 16:23; Status DC Argatroban (Argatroban Per Pharmacy) 1 each PRN DAILY PRN MC SEE COMMENTS Last administered on 10/13/20at 16:34; Start 10/05/20 at 14:00; Stop 10/24/20 at 09:37; Status DC Argatroban 50 mg/ Sodium Chloride 50 ml @ 6.48 mls/hr CONT PRN IV ADJUST PER PTT; Start 10/05/20 at 14:00; Stop 10/05/20 at 13:59; Status DC Argatroban 50 mg/ Sodium Chloride 50 ml @ 6.48 mls/hr CONT PRN IV ADJUST PER PTT; Start 10/06/20 at 00:00; Status Cancel Warfarin Sodium (Coumadin) 5 mg 1X WARF ONCE PO Last administered on 10/05/20at 21:23; Start 10/05/20 at 16:00; Stop 10/05/20 at 16:01; Status DC Argatroban 50 mg/ Sodium Chloride 50 ml @ 0 mls/hr CONT PRN IV PER PROTOCOL Last administered on 10/19/20 22:13; Start 10/06/20 at 09:00; Stop 10/20/20 at 13:02; Status DC Warfarin Sodium (Coumadin) 5 mg 1X WARF ONCE PO ; Start 10/06/20 at 16:00; Stop 10/06/20 at 16:01; Status Cancel Amiodarone HCl (Cordarone) 400 mg DAILY PO Last administered on 10/25/20 09:08; Start 10/06/20 at 10:00 Atorvastatin Calcium (Lipitor) 40 mg QHS PO Last administered on 10/24/20at 21:32; Start 10/06/20 at 21:00 Metoprolol Tartrate (Lopressor) 25 mg BID PO Last administered on 10/25/20 09:09; Start 10/06/20 at 10:00 Furosemide (Lasix) 40 mg DAILY IVP Last administered on 10/25/20 09:08; Start 10/06/20 at 10:00 Potassium Bicarbonate (Potassium Effervescent Tablet) 20 meq DAILY PEG Last administered on 10/25/20 09:07; Start 10/06/20 at 10:00 Tirofiban/Sodium Chloride 100 ml @ 0 mls/hr CONT PRN IV PER PROTOCOL Last administered on 10/11/20 14:11; Start 10/09/20 at 17:00; Stop 10/11/20 at 20:21; Status DC Albumin Human 100 ml @ 100 mls/hr 1X ONCE IV Last administered on 10/12/20 15:22; Start 10/12/20 at 14:00; Stop 10/12/20 at 14:59; Status DC Furosemide (Lasix) 40 mg 1X ONCE IVP Last administered on 10/12/20at 15:22; Start 10/12/20 at 15:00; Stop 10/12/20 at 15:01; Status DC Aspirin (Aspirin Chewable) 81 mg 1X ONCE PO Last administered on 10/13/20at 12:25; Start 10/13/20 at 10:30; Stop 10/13/20 at 10:31; Status DC Aspirin (Aspirin Chewable) 81 mg DAILYWBKFT PO Last administered on 10/25/20at 09:07; Start 10/14/20 at 08:00 Fentanyl Citrate (Fentanyl 2ml Vial) 25 mcg PRN Q5MIN PRN IVP MILD PAIN 1-3; Start 10/18/20 at 06:00; Stop 10/18/20 at 20:00; Status DC Ringer's Solution 1,000 ml @ 30 mls/hr Q24H IV Last administered on 10/18/20at 06:00; Start 10/18/20 at 06:00; Stop 10/18/20 at 17:59; Status DC Bupivacaine HCl/ Epinephrine Bitart (Sensorcain-Epi 0.5% Kit) 30 ml STK-MED ONCE .ROUTE Last administered on 10/18/20at 11:04; Start 10/18/20 at 10:23; Stop 10/18/20 at 10:24; Status DC Rocuronium [place] (Zemuron) 50 mg STK-MED ONCE .ROUTE ; Start 10/18/20 at 10:48; Stop 10/18/20 at 10:48; Status DC Sevoflurane (Ultane) 60 ml STK-MED ONCE IH ; Start 10/18/20 at 11:13; Stop 10/18/20 at 11:13; Status DC Fentanyl Citrate (Fentanyl 2ml Vial) 100 mcg STK-MED ONCE .ROUTE ; Start 10/18/20 at 11:14; Stop 10/18/20 at 11:14; Status DC Phenylephrine HCl (PHENYLEPHRINE in 0.9% NACL PF) 1 mg STK-MED ONCE IV ; Start 10/18/20 at 11:55; Stop 10/18/20 at 11:56; Status DC Argatroban (Argatroban Per Pharmacy) 1 each PRN DAILY PRN MC SEE COMMENTS; Start 10/19/20 at 10:30; Status UNV Clopidogrel Bisulfate (Plavix) 75 mg DAILYWBKFT PO Last administered on 10/25/20at 09:08; Start 10/19/20 at 14:00 Warfarin Sodium (Coumadin Per Pharmacy) 1 each PRN DAILY PRN MC SEE COMMENTS Last administered on 10/24/20at 15:39; Start 10/19/20 at 13:15 Warfarin Sodium (Coumadin) 5 mg 1X WARF ONCE PO Last administered on 10/19/20at 15:24; Start 10/19/20 at 16:00; Stop 10/19/20 at 16:01; Status DC Warfarin Sodium (Coumadin) 5 mg 1X WARF ONCE PO Last administered on 10/20/20at 19:10; Start 10/20/20 at 16:00; Stop 10/20/20 at 16:01; Status DC Argatroban 50 mg/ Sodium Chloride 50 ml @ 0 mls/hr CONT PRN IV PER PROTOCOL Last administered on 10/24/20at 01:10; Start 10/20/20 at 13:15; Stop 10/24/20 at 09:37; Status DC Warfarin Sodium (Coumadin) 6 mg 1X WARF ONCE PO Last administered on 10/21/20at 17:56; Start 10/21/20 at 16:00; Stop 10/21/20 at 16:01; Status DC Warfarin Sodium (Coumadin) 7.5 mg 1X WARF ONCE PO Last administered on 10/22/20at 17:45; Start 10/22/20 at 16:00; Stop 10/22/20 at 16:01; Status DC Warfarin Sodium (Coumadin) 6 mg 1X WARF ONCE PO Last administered on 10/23/20at 17:05; Start 10/23/20 at 16:00; Stop 10/23/20 at 16:01; Status DC Warfarin Sodium (Coumadin) 4 mg 1X WARF ONCE PO ; Start 10/24/20 at 16:00; Stop 10/24/20 at 10:45; Status DC Warfarin Sodium (Coumadin) 4 mg 1X WARF ONCE PO Last administered on 10/24/20at 17:52; Start 10/24/20 at 16:00; Stop 10/24/20 at 16:01; Status DC Active Scripts Active Amiodarone Hcl 200 Mg Tablet 400 Mg PO DAILY 90 Days [Warfarin Per Pharmacy] 1 EACH Each 1 Each MC PRN DAILY PRN 30 Days Clopidogrel (Clopidogrel Bisulfate) 75 Mg Tablet 75 Mg PO DAILYWBKFT 90 Days Humalog (Insulin Lispro) 100 Unit/1 Ml Insuln.pen 0 Units SQ TIDWMEALS 30 Days Duoneb 0.5-3(2.5) Mg/3 Ml (Albuterol/Ipratropium) 3 Ml Ampul.neb 3 Ml NEB RTQID 30 Days Aspirin 325 Mg Tablet 325 Mg PO DAILYWBKFT 30 Days Metoprolol Tartrate 25 Mg Tablet 25 Mg PO BID 30 Days Montelukast Sodium Tablet (Montelukast Sodium) 10 Mg Tablet 10 Mg PO QHS Gabapentin 600 Mg Tablet 600 Mg PO BID 30 Days Reported Glimepiride 4 Mg Tablet 1 Tab PO DAILY Furosemide 40 Mg Tablet 1 Tab PO BID Symbicort 160-4.5 Mcg Inhaler (Budesonide/Formoterol Fumarate) 10.2 Gm Hfa.aer.ad 1 Puff INH DAILY Losartan-Hctz 100-12.5 Mg Tab (Losartan/Hydrochlorothiazide) 1 Each Tablet 1 Tab PO DAILY Nitrofurantoin [place]-Mcr 100 Mg (Nitrofurantoin Monohyd/M-Cryst) 100 Mg Capsule 1 Cap PO BID Betamethasone Valerate 60 Ml Lotion 1 TP QHS Atorvastatin Calcium 40 Mg Tablet 1 Tab PO DAILY Diltiazem 24Hr Cd (Diltiazem HCl) 240 Mg Cap.er.24h 1 Cap PO DAILY Nystop (Nystatin) 60 Gm Powder 1 Sudheer TP BID Pepcid (Famotidine) 20 Mg Tablet 20 Mg PO BID Vitals/I & O Vital Sign - Last 24 Hours 10/24/20 10/24/20 10/24/20 10/24/20 11:00 11:59 12:00 15:20 Temp 98.6 98.5 98.6 98.5 Pulse 74 77 Resp 16 18 B/P (MAP) 108/60 (76) 111/62 (78) Pulse Ox 100 99 94 O2 Delivery Tracheal Collar Tracheal Collar Tracheal Collar O2 Flow Rate 10.0 10.0 10.0 10.0 10/24/20 10/24/20 10/24/20 10/24/20 16:00 19:00 20:00 20:30 Temp 99.1 99.1 Pulse 84 Resp 18 B/P (MAP) 120/68 (85) Pulse Ox 100 O2 Delivery Tracheal Collar Trach Collar O2 Flow Rate 10.0 10.0 10.0 10.0 10/24/20 10/24/20 10/24/20 10/25/20 20:47 21:32 22:48 00:01 Temp 97.8 97.8 Pulse 84 77 Resp 18 B/P (MAP) 120/68 120/68 (85) Pulse Ox 99 100 O2 Delivery Tracheal Collar Tracheal Collar O2 Flow Rate 8.0 10.0 10.0 9/1510/25/20 10/25/20 10/25/20 00:10 02:16 02:37 03:42 Temp 98.0 98.0 Pulse 77 Resp 18 B/P (MAP) 127/77 (94) Pulse Ox 99 99 100 O2 Delivery Ventilator Ventilator Tracheal Collar O2 Flow Rate 10.0 15.0 10/25/20 10/25/20 10/25/20 10/25/20 04:58 07:00 09:08 09:09 Temp 99.4 99.4 Pulse 93 93 93 Resp 16 B/P (MAP) 122/66 (84) 122/66 122/66 Pulse Ox 99 100 O2 Delivery Ventilator BiPAP/CPAP Intake and Output 10/24/20 10/24/20 10/25/20 15:00 23:00 07:00 Intake Total 0 ml Output Total 375 ml 600 ml Balance -375 ml -600 ml Justicifation of Admission Dx: Justifications for Admission: Justification of Admission Dx: Yes CHF: Cardiac Arrhythmias KLAUDIA HAY MD Oct 25, 2020 09:43
[2020-10-25 11:00] VITALS: BP 129/76
--- NOTE | 2020-10-25 11:08 | PDOC ---
PULMONARY PROGRESS NOTES DATE: 10/25/20 TIME: 11:07 Subjective Patient remains on trach shield 24 hours No overnight events Vitals Vital Signs Date Time Temp Pulse Resp B/P (MAP) Pulse Ox O2 Delivery O2 Flow Rate FiO2 10/25/20 09:09 93 122/66 10/25/20 07:00 99.4 16 100 BiPAP/CPAP 99.4 10/25/20 03:42 15.0 General: No acute distress HEENT: Other (nc at perrl nose clear orally intubated neck no lad no thyromegaly) Lungs: Other (Tracheostomy) Cardiovascular: S1, S2 Abdomen: Soft, Non-tender, Other (Obese) Extremities: Other (1+ edema) Skin: Warm Labs Laboratory Tests Test 10/23/20 12:37 10/23/20 18:17 10/24/20 00:21 10/24/20 06:00 Glucose (Fingerstick) 157 mg/dL (70-99) 141 mg/dL (70-99) 146 mg/dL (70-99) White Blood Count 8.2 x10^3/uL (4.0-11.0) Red Blood Count 3.02 x10^6/uL (4.30-5.70) Hemoglobin 9.6 g/dL (13.0-17.5) Hematocrit 28.4 % (39.0-53.0) Mean Corpuscular Volume 94 fL (79-100) Mean Corpuscular Hemoglobin 32 pg (25-35) Mean Corpuscular Hemoglobin Concent 34 g/dL (31-37) Red Cell Distribution Width 16.1 % (11.5-14.5) Platelet Count 235 x10^3/uL (140-400) Neutrophils (%) (Auto) 60 % (31-73) Lymphocytes (%) (Auto) 27 % (24-48) Monocytes (%) (Auto) 7 % (0-9) Eosinophils (%) (Auto) 5 % (0-3) Basophils (%) (Auto) 1 % (0-3) Neutrophils # (Auto) 4.9 x10^3/uL (1.8-7.7) Lymphocytes # (Auto) 2.2 x10^3/uL (1.0-4.8) Monocytes # (Auto) 0.6 x10^3/uL (0.0-1.1) Eosinophils # (Auto) 0.4 x10^3/uL (0.0-0.7) Basophils # (Auto) 0.1 x10^3/uL (0.0-0.2) Prothrombin Time 39.7 SEC (11.7-14.0) Prothromb Time International Ratio 4.2 (0.8-1.1) Activated Partial Thromboplast Time 105 SEC (24-38) Sodium Level 137 mmol/L (136-145) Potassium Level 4.0 mmol/L (3.5-5.1) Chloride Level 99 mmol/L (98-107) Carbon Dioxide Level 31 mmol/L (21-32) Anion Gap 7 (6-14) Blood Urea Nitrogen 22 mg/dL (8-26) Creatinine 0.8 mg/dL (0.7-1.3) Estimated GFR (Cockcroft-Gault) 95.0 Glucose Level 167 mg/dL (70-99) Calcium Level 8.9 mg/dL (8.5-10.1) Test 10/24/20 06:15 10/24/20 11:51 10/24/20 14:45 10/24/20 17:41 Glucose (Fingerstick) 169 mg/dL (70-99) 171 mg/dL (70-99) 144 mg/dL (70-99) Prothrombin Time 32.8 SEC (11.7-14.0) Prothromb Time International Ratio 3.3 (0.8-1.1) Test 10/25/20 00:07 10/25/20 05:15 10/25/20 05:22 Glucose (Fingerstick) 146 mg/dL (70-99) 139 mg/dL (70-99) White Blood Count 7.8 x10^3/uL (4.0-11.0) Red Blood Count 3.01 x10^6/uL (4.30-5.70) Hemoglobin 9.4 g/dL (13.0-17.5) Hematocrit 28.1 % (39.0-53.0) Mean Corpuscular Volume 93 fL (79-100) Mean Corpuscular Hemoglobin 31 pg (25-35) Mean Corpuscular Hemoglobin Concent 33 g/dL (31-37) Red Cell Distribution Width 16.0 % (11.5-14.5) Platelet Count 241 x10^3/uL (140-400) Neutrophils (%) (Auto) 57 % (31-73) Lymphocytes (%) (Auto) 30 % (24-48) Monocytes (%) (Auto) 7 % (0-9) Eosinophils (%) (Auto) 6 % (0-3) Basophils (%) (Auto) 1 % (0-3) Neutrophils # (Auto) 4.4 x10^3/uL (1.8-7.7) Lymphocytes # (Auto) 2.3 x10^3/uL (1.0-4.8) Monocytes # (Auto) 0.5 x10^3/uL (0.0-1.1) Eosinophils # (Auto) 0.5 x10^3/uL (0.0-0.7) Basophils # (Auto) 0.1 x10^3/uL (0.0-0.2) Prothrombin Time 25.2 SEC (11.7-14.0) Prothromb Time International Ratio 2.3 (0.8-1.1) Sodium Level 136 mmol/L (136-145) Potassium Level 4.5 mmol/L (3.5-5.1) Chloride Level 98 mmol/L (98-107) Carbon Dioxide Level 34 mmol/L (21-32) Anion Gap 4 (6-14) Blood Urea Nitrogen 21 mg/dL (8-26) Creatinine 0.8 mg/dL (0.7-1.3) Estimated GFR (Cockcroft-Gault) 95.0 Glucose Level 139 mg/dL (70-99) Calcium Level 9.0 mg/dL (8.5-10.1) Laboratory Tests Test 10/24/20 11:51 10/24/20 14:45 10/24/20 17:41 10/25/20 00:07 Glucose (Fingerstick) 171 mg/dL (70-99) 144 mg/dL (70-99) 146 mg/dL (70-99) Prothrombin Time 32.8 SEC (11.7-14.0) Prothromb Time International Ratio 3.3 (0.8-1.1) Test 10/25/20 05:15 10/25/20 05:22 White Blood Count 7.8 x10^3/uL (4.0-11.0) Red Blood Count 3.01 x10^6/uL (4.30-5.70) Hemoglobin 9.4 g/dL (13.0-17.5) Hematocrit 28.1 % (39.0-53.0) Mean Corpuscular Volume 93 fL (79-100) Mean Corpuscular Hemoglobin 31 pg (25-35) Mean Corpuscular Hemoglobin Concent 33 g/dL (31-37) Red Cell Distribution Width 16.0 % (11.5-14.5) Platelet Count 241 x10^3/uL (140-400) Neutrophils (%) (Auto) 57 % (31-73) Lymphocytes (%) (Auto) 30 % (24-48) Monocytes (%) (Auto) 7 % (0-9) Eosinophils (%) (Auto) 6 % (0-3) Basophils (%) (Auto) 1 % (0-3) Neutrophils # (Auto) 4.4 x10^3/uL (1.8-7.7) Lymphocytes # (Auto) 2.3 x10^3/uL (1.0-4.8) Monocytes # (Auto) 0.5 x10^3/uL (0.0-1.1) Eosinophils # (Auto) 0.5 x10^3/uL (0.0-0.7) Basophils # (Auto) 0.1 x10^3/uL (0.0-0.2) Prothrombin Time 25.2 SEC (11.7-14.0) Prothromb Time International Ratio 2.3 (0.8-1.1) Sodium Level 136 mmol/L (136-145) Potassium Level 4.5 mmol/L (3.5-5.1) Chloride Level 98 mmol/L (98-107) Carbon Dioxide Level 34 mmol/L (21-32) Anion Gap 4 (6-14) Blood Urea Nitrogen 21 mg/dL (8-26) Creatinine 0.8 mg/dL (0.7-1.3) Estimated GFR (Cockcroft-Gault) 95.0 Glucose Level 139 mg/dL (70-99) Calcium Level 9.0 mg/dL (8.5-10.1) Glucose (Fingerstick) 139 mg/dL (70-99) Medications Active Scripts Medications Dose Route/Sig Max Daily Dose Days Date Category Amiodarone Hcl 200 Mg Tablet 400 Mg PO DAILY 90 09/18/20 Rx [Warfarin Per Pharmacy] 1 EACH Each 1 Each MC PRN DAILY PRN 30 09/18/20 Rx Clopidogrel (Clopidogrel Bisulfate) 75 Mg Tablet 75 Mg PO DAILYWBKFT 90 09/18/20 Rx Glimepiride 4 Mg Tablet 1 Tab PO DAILY 09/13/20 Reported Furosemide 40 Mg Tablet 1 Tab PO BID 09/13/20 Reported Symbicort 160-4.5 Mcg Inhaler (Budesonide/Formoterol Fumarate) 10.2 Gm Hfa.aer.ad 1 Puff INH DAILY 09/13/20 Reported Losartan-Hctz 100-12.5 Mg Tab (Losartan/Hydrochlorothiazide) 1 Each Tablet 1 Tab PO DAILY 09/13/20 Reported Nitrofurantoin [place]-Mcr 100 Mg (Nitrofurantoin Monohyd/M-Cryst) 100 Mg Capsule 1 Cap PO BID 09/13/20 Reported Betamethasone Valerate 60 Ml Lotion 1 TP QHS 09/13/20 Reported Atorvastatin Calcium 40 Mg Tablet 1 Tab PO DAILY 09/13/20 Reported Diltiazem 24Hr Cd (Diltiazem HCl) 240 Mg Cap.er.24h 1 Cap PO DAILY 09/13/20 Reported Nystop (Nystatin) 60 Gm Powder 1 Sudheer TP BID 09/13/20 Reported Humalog (Insulin Lispro) 100 Unit/1 Ml Insuln.pen 0 Units SQ TIDWMEALS 30 08/06/18 Rx Duoneb 0.5-3(2.5) Mg/3 Ml (Albuterol/Ipratropium) 3 Ml Ampul.neb 3 Ml NEB RTQID 08/06/18 Rx Aspirin 325 Mg Tablet 325 Mg PO DAILYWBKFT 30 07/22/17 Rx Metoprolol Tartrate 25 Mg Tablet 25 Mg PO BID 30 07/22/17 Rx Montelukast Sodium Tablet (Montelukast Sodium) 10 Mg Tablet 10 Mg PO QHS 07/22/17 Rx Gabapentin 600 Mg Tablet 600 Mg PO BID 30 07/22/17 Rx Pepcid (Famotidine) 20 Mg Tablet 20 Mg PO BID 05/17/13 Reported Impression . 1. Acute on chronic respiratory failure secondary to multifactorial etiologies including hypoglycemic encephalopathy. No evidence of new stroke. 2. Possible sepsis--- on antibiotics 3. Hypoglycemia./ encephalopathy 4. The patient with prior history of cerebrovascular accident with left-sided weakness. 5. Underlying chronic obstructive pulmonary disease. 6. Morbid obesity. 7. Peripheral vascular disease. 8. Abnormal CT chest with bibasilar atelectasis. No significant mucus plugging. Tiny pleural effusion seen. 10/18 Procedure Performed: laparoscopic gastrostomy tube placement (specifically 24 F) Plan . Updated 10/25 Patient is doing well on trach shield on a 24-hour basis. RT blood gases shows no worsening hypercapnia while on trach shield. No apneic breathing reported. I discussed with respiratory therapist. We will continue continue trach shield Status post gastrostomy tube Long-term prognosis poor Discussed with social service, discharge planning in place once court appointed DPOA available Discussed with RN Pulmonary status is stable. We will see him as needed Updated 10/24 Patient is doing well on trach shield on a 24-hour basis. RT blood gases shows no worsening hypercapnia while on trach shield. No apneic breathing reported. I discussed with respiratory therapist. We will continue continue trach shield Status post gastrostomy tube Long-term prognosis poor Discussed with social service, discharge planning in place once court appointed DPOA available Discussed with RN Updated 10/23 Patient did well on trach shield most of the day. Patient was rested on AVAPS last night. RT blood gases shows no worsening hypercapnia while on trach shield. No apneic breathing reported. I discussed with respiratory therapist. We will continue continue trach shield for 24 hours as tolerated. Status post gastrostomy tube Long-term prognosis poor Discussed with social service, discharge planning in place once court appointed DPOA available Discussed with RN Updated 10/22 Patient did well on trach shield most of the day. Patient was rested on AVAPS last night. RT blood gases shows no worsening hypercapnia while on trach shield. No apneic breathing reported. I discussed with respiratory therapist. We will continue continue trach shield for 24 hours as tolerated. Status post gastrostomy tube Long-term prognosis poor Discussed with social service, discharge planning in place once court appointed DPOA available Discussed with RN Updated 10/21 Status post gastrostomy tube Continue AVAPS We will ask respiratory to consider trach shield trial to see if he has any apneic breathing. Not sure he was tried yesterday. If he does tolerate trach shield will check ABGs in 2 hours Long-term prognosis poor Discussed with social service, discharge planning in place once court appointed DPOA available Discussed with RN Updated 10/20 Status post gastrostomy tube Continue AVAPS We will ask respiratory to consider trach shield trial to see if he has any apneic breathing. Long-term prognosis poor Discussed with social service, discharge planning in place once court appointed DPOA available Discussed with RN Updated 10 19 Status post gastrostomy tube Continue AVAPS Long-term prognosis poor Discussed with social service, discharge planning in place updated 10/18 Nephrostomy tube today Spoke with Dr. Bobo Continue pressure support as tolerated updated 10/17 Continue pressure support during the day The a.m. for gastrostomy tube Discussed with RN updated 10/16 Continue pressure support during the day Continues current support Long-term prognosis poor CLINTON PALAFOX MD Oct 25, 2020 11:08
--- NOTE | 2020-10-25 11:47 | PDOC ---
PEDRO VERDE SENIOR ASSET MANAGER 10/25/20 1147: CARDIO Progress Notes Date and Time Date of Service 10/25/20 Time of Evaluation 1140 Subjective Subjective: Other (nonverbal) Vitals Vitals Vital Signs Date Time Temp Pulse Resp B/P (MAP) Pulse Ox O2 Delivery O2 Flow Rate FiO2 10/25/20 09:09 93 122/66 10/25/20 08:00 Trach Collar 7.0 10/25/20 07:00 99.4 16 100 99.4 Weight Weight [ ] Input and Output Intake and Output Intake and Output 10/25/20 07:00 Intake Total 0 ml Output Total 975 ml Balance -975 ml Intake Oral 0 ml Output Urine Total 975 ml # Bowel Movements 2 Laboratory Labs Laboratory Tests Test 10/24/20 11:51 10/24/20 14:45 10/24/20 17:41 10/25/20 00:07 Glucose (Fingerstick) 171 mg/dL (70-99) 144 mg/dL (70-99) 146 mg/dL (70-99) Prothrombin Time 32.8 SEC (11.7-14.0) Prothromb Time International Ratio 3.3 (0.8-1.1) Test 10/25/20 05:15 10/25/20 05:22 White Blood Count 7.8 x10^3/uL (4.0-11.0) Red Blood Count 3.01 x10^6/uL (4.30-5.70) Hemoglobin 9.4 g/dL (13.0-17.5) Hematocrit 28.1 % (39.0-53.0) Mean Corpuscular Volume 93 fL (79-100) Mean Corpuscular Hemoglobin 31 pg (25-35) Mean Corpuscular Hemoglobin Concent 33 g/dL (31-37) Red Cell Distribution Width 16.0 % (11.5-14.5) Platelet Count 241 x10^3/uL (140-400) Neutrophils (%) (Auto) 57 % (31-73) Lymphocytes (%) (Auto) 30 % (24-48) Monocytes (%) (Auto) 7 % (0-9) Eosinophils (%) (Auto) 6 % (0-3) Basophils (%) (Auto) 1 % (0-3) Neutrophils # (Auto) 4.4 x10^3/uL (1.8-7.7) Lymphocytes # (Auto) 2.3 x10^3/uL (1.0-4.8) Monocytes # (Auto) 0.5 x10^3/uL (0.0-1.1) Eosinophils # (Auto) 0.5 x10^3/uL (0.0-0.7) Basophils # (Auto) 0.1 x10^3/uL (0.0-0.2) Prothrombin Time 25.2 SEC (11.7-14.0) Prothromb Time International Ratio 2.3 (0.8-1.1) Sodium Level 136 mmol/L (136-145) Potassium Level 4.5 mmol/L (3.5-5.1) Chloride Level 98 mmol/L (98-107) Carbon Dioxide Level 34 mmol/L (21-32) Anion Gap 4 (6-14) Blood Urea Nitrogen 21 mg/dL (8-26) Creatinine 0.8 mg/dL (0.7-1.3) Estimated GFR (Cockcroft-Gault) 95.0 Glucose Level 139 mg/dL (70-99) Calcium Level 9.0 mg/dL (8.5-10.1) Glucose (Fingerstick) 139 mg/dL (70-99) Physical Exam HEENT: Neck Supple W Full Motion Chest: Symmetric LUNGS: Other (trach on 10L) Heart: RRR (SR) Abdomen: Other (obese; PEG) Extremities: No Edema Neurology: other (opens eyes, does not track or follow commands) Assessment Assessment 1. Acute on chronic respiratory failure with associated severe hypoglycemia and encephalopathy and COPD, CHF; s/p tracheostomy. 2. Metabolic encephalopathy 3. Acute on chronic diastolic/systolic CHF 4. CAD/STEMI: S/P complex PCI/stents to RCA/LAD 08/16/2020. [facility] 08/31 with ISR to RCA, S/P PCI, clinically stable 5. ICM: EF at 25%, clinically well compensated. 6. PAFIB: maintaining SR. Continue amiodarone for rhythm maintenance. 7. Hx of HIT 8. Anemia: hgb stable 9. Hx of CVA 10. Dysphagia; s/p PEG 11. Right pop artery aneurysm. Recommendations Secondary prevention Coumadin and Plavix therapy Lasix Amiodarone for rhythm maintenance. Supportive care Justicifation of Admission Dx: Justifications for Admission: Justification of Admission Dx: Yes CHF: Cardiac Arrhythmias EMELIA GRAY MD 10/25/202021: CARDIO Progress Notes Plan Plan The patient was seen and interviewed as well as examined at the bedside. The chart was reviewed. The case was discussed. Agree with the plan of care. PEDRO VERDE APRN Oct 25, 2020 11:47 EMELIA GRAY MD Oct 25, 2020 20:22
--- NOTE | 2020-10-25 14:00 | NUR ---
SS following up with discharge planning. SS reviewed pt chart and discussed with pt RN. Pt is currently on trach shield at 10 liters. G tube in place. COVID19 negative. Unresponsive. Pt was declined at [facility] due to being to medically complex for longterm unit at this time. [facility] facilities requesting that pt have DPOA or Guardian prior to accepting for admission. Pt has no family or kinship to accept responsibility. Case supervisor garage aware of need for DPOA or Guardianship. SS will continue to follow for discharge planning.
--- NOTE | 2020-10-25 14:05 | NUR ---
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 Target range for this patient is: 2 -3 P: Warfarin dose: 5 mg Today at 1600 Bridge Therapy: Argatroban Therapeutic Next INR due tomorrow Pharmacy anticoagulation service will continue to follow. Roseline Varela RPH, 10/25/20 [id number]
[2020-10-25 15:00] VITALS: BP 119/69
[2020-10-25] MEDS ORDERED: WARFARIN 5 MG TABLET. PO ONE (16:00)
[2020-10-25] MEDS: ACETAMINOPHEN 650 MG/20.3 ML SOLUTION. PEG PRN (17:01)
[2020-10-25 19:48] VITALS: BP 123/70
[2020-10-25] MEDS: ATORVASTATIN CALCIUM 40 MG TABLET. PO SCH (21:19)
[2020-10-25 22:56] VITALS: BP 126/76
[2020-10-26 03:00] VITALS: BP 134/80
[2020-10-26] MEDS: INSULIN LISPRO 300 UNITS/3 ML VIAL. SQ SCH ×4 (06:00→18:00)
[2020-10-26 06:54] LABS: PROTHROMBIN TIME PATIENT 23.2 SEC (11.7-14.0)
[2020-10-26 07:15] VITALS: BP 125/83
--- NOTE | 2020-10-26 09:04 | PDOC ---
PROGRESS NOTES Date of Service: DATE: 10/26/20 TIME: 09:04 Chief Complaint Chief Complaint impression Acute anemia Acute metabolic, infectious encephalopathy Acute respiratory failure Healthcare associated pneumonia Acute hypoglycemia Hypokalemia Elevated troponins Severe protein malnutrition Morbid obesity AAA, 4 cm, infrarenal History of diabetes mellitus type 2 History of dyslipidemia history of hypertension History of recent STEMI History of CAD History of peripheral artery disease History of JEANNE History of CVA History of paroxysmal atrial fibrillation Ischemic cardiomyopathy History of Present Illness History of Present Illness Mr Andrews is a 70-year-old male with a recent prolonged hospitalization for STEMI and respiratory failure for which she was treated with arterial thrombolysis for a right leg popliteal artery aneurysm and also had left heart cath with placement of a stent in the LAD and RCA comes in today after he was found obtunded at his [facility] facility. Apparently according to the nursing facility patient was in his usual state of health and he was conversational but then became altered. His blood glucose was found to be in the 30s. Glucose tabs and glucagon was given in route and his GCS reported at 6. Upon arrival patient's mental status did not improve and he was eventually intubated for airway protection. Of note EMS was bagging the patient through the nasal access. In the ED, patient was placed on a vent and pulmonology was consulted. Patient was also taken to the CT scanner for sanders scanning. Patient was started to wake up on the vent and sedation was ordered. 09/23: Patient examined at bedside. Intubated. Not on any sedation but unresponsive. Neurology consult in place. 09/24: Patient seen and examined at bedside. Remains intubated he is off sedation but still remains unresponsive. Planning for MRI brain in the morning. Further plan to be determined by MRI. 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 09/25: Afebrile, currently breathing on ventilator with FiO2 50%, PEEP 5. Had CODE BLUE in ICU this morning; received 2 rounds of CPR, epinephrine, and atropine with ROSC. MRI brain negative. Made DNR, and after discussion with Dr. Rubalcava he agrees. 09/26:: Afebrile. Still on vent, with FiO2 45%, PEEP 5. After discussion with Dr. Rubalcava yesterday, patient was made DNR. In the ED is likely a poor candidate for weaning trials may need trach in near future if no significant improvement. 09/27:: Afebrile. On vent with FiO2 40%, PEEP 5. Potassium 2.8 today, will replace. Warfarin has been resumed. Discussed with pharmacy, will resume aspirin and Plavix. May need tracheostomy by the end of the week if no improvement in mental status. 09/28:: Afebrile. On ventilator with FiO2 40%, PEEP 5. Warfarin has been res umed; INR 1.3 today. Some morning labs still pending; hemoglobin yesterday 7.3, will continue to monitor. Continue IV cefepime and supportive care. 09/29: Afebrile. Breathing on vent with FiO2 40%, PEEP 5. INR 1.2 today; pharmacy to help with warfarin dosing. White count within normal range, renal function stable. Spoke with pharmacy about cefepime 1 g every 8 hours dosing; this has been changed to cefepime 2 g every 8 hours. 09/30: Afebrile. Currently breathing on vent with FiO2 40%, PEEP 5. Continue antibiotics, cefepime 2 g every 8 hours. INR 1.4; continue warfarin dosing per pharmacy. Possible tracheostomy at some point. Critical care time 30 minutes reviewing charts, labs, examination, discussion with RN. 10/01: T-max 100.3 F. On ventilator with FiO2 40%, PEEP 5. Continue antibiotics, cefepime 2 g every 8 hours. INR 1.4, still subtherapeutic; continue warfarin dosing per pharmacy. Possible tracheostomy at some point. 10/02: No acute events overnight. Patient saturating 99% on vent settings of 1 0/450/40/5. Patient will likely need a trach and PEG at some point. We will hold warfarin and start 2 units PRBC transfusion. Patient's chart, labs, images were reviewed and discussed with RN 10/03: No acute events overnight. Patient sat 100% on minimal vent settings. No sedation at this point and patient is opening his eyes spontaneously. Not much response or spontaneous movements. Surgery has been consulted for tracheostomy. Patient will also likely need a PEG tube. 10/04: No acute events overnight. Patient saturating 90% on minimal vent settings. T-max 100.4 overnight. Plan for trach tomorrow with surgery. Patient's chart, labs, images were reviewed and discussed with RN 10/05: No acute events overnight. Patient saturating 99% on minimal vent settings. Plan for tracheostomy today. Consent is provided by authorization by 2 physicians due to patient having no close relatives or DPOA. Will resume heparin and warfarin bridging tomorrow after tracheostomy 10/07: No acute events overnight. Patient seen and examined bedside. On trach vent. Saturating 99%. Pending GI evaluation for possible PEG placement after discussing with cardiology whether to continue with Plavix. Possibly place PEG if patient is only on aspirin and stopping argatroban. 10/08: No acute events overnight. Patient continues to be on trach mechanical vent. Saturating 100%. Pending decision from GI whether to proceed with PEG placement depending on the type of anticoagulation patient will be on. 10/09: No overnight events. On trach with vent support 40% FiO2 PEEP of 5. Currently argatroban and propofol for minimal sedation. When sedation is weaned he has no meaningful movements but has pulled at his tracheostomy site. Unable to hold plavix due to recently placed stents. 10/10: Afebrile today. On trach with vent support 40% FiO2 PEEP of 5. Continue argatroban and changed to Aggrastat in anticipation of surgical consultation for potential laparoscopic PEG placement. INR 1.6. Hb greater than 9 no significant neurologic recovery today. 10/11: Afebrile. On trach with vent support 40% FiO2 PEEP of 5. INR 1.8. Not making meaningful eye contact. Labs otherwise stable. 10/12: Afebrile. Trach with vent support 40% FiO2 PEEP five O2 saturations 92%. INR 1.8, mag 1.8, Hb 8.4. Not following commands. Tentative plans for surgical PEG next week. 10/13: Afebrile. Trach with vent support 40% FiO2 PEEP 5. Eyes open, not tracking or following commands. Holding Plavix. On argatroban. 10/14: Afebrile. Trach with vent support 40% FiO2 PEEP of 5. Will open eyes intermittently not necessarily to voice. Good urine output. Labs stable. 10/15: Afebrile overnight. Trach with vent AC 40% fio2 PEEP 5. Had a very large bowel movement. Still not tracking. Hb 9, INR 1.7, glucose 144. Tentative plan for PEG 10/18/2020 CC time 30 minutes 9/6/21: Patient seen and examined in the ICU. He was resting and still on vent via trach. Has NG running via Dobhoff, feeding at 40cc/hr. AC/10/450/40% plus 5 PEEP. Discussed with RN. Chart reviewed. 10/17/20: Patient was seen and examined in the ICU today. Still on vent via trach at AC/10/450/40 plus 5 PEEP. While examined, patient was at 100% O2 saturation. Has SCDs on for DVT prophylaxis. Stauffer catheter in place. On IV argatroban. R subclavian triple lumen in place. Dobhoff running at 40cc/hr. Discussed with RN. Chart reviewed. 10/18/20: Patient seen and examined in ICU. His eyes are open. On vent via trach with settings that were recently changed to spontaneous respirations with FiO2 of 40 and 5 PEEP. Trach is clean and dry. Currently, oxygen saturation is at 100%. Stauffer to bedside and rectal bag in place. Discussed with RN. Chart revi ewed. 10/19/20: Patient was seen and examined in the ICU today. His eyes were open and he was resting. On BiPAP via trach AVAPS/10/450/40 plus 5 PEEP. Trach is clean and dry. Has SCDs for DVT prophylaxis. Patient has rectal bag, Stauffer to bedside, and NG tube in place. Discussed with RN. Chart reviewed. 10/20/20 No acute events overnight. Patient seen and examined bedside. Transferred from the ICU. Continues to be nonverbal and not following much commands. Opens eyes to voice. Currently on BiPAP via trach on AVAPS setting 10/450/40 PEEP of 5. Trach site is clear. No signs of infections. Patient's chart, labs, images were reviewed and discussed with RN 10/21/2020 No acute events overnight. Patient seen and examined bedside. Afebrile. Cont inues to be nonverbal but opens eyes to voice. Currently on BiPAP. Patient's chart, labs, images were reviewed and discussed with RN. 10/22/2020 No acute events overnight. Patient seen examined bedside. Continue with argatroban until warfarin goal INR of 4 and maintenance goal of 2-3. Please see supervisor dumping note. Pending appointing a legal guardian. Patient's chart, labs, images were reviewed and discussed with RN 10/23/2020 laparoscopic gastrostomy tube placement (specifically 24 F) Oct discharge planning in place once court appointed DPOA available Acute anemia Acute metabolic, infectious encephalopathy Acute respiratory failure Healthcare associated pneumonia Acute hypoglycemia Hypokalemia Elevated troponins Severe protein malnutrition Morbid obesity AAA, 4 cm, infrarenal History of diabetes mellitus type 2 History of dyslipidemia history of hypertension Patient seen examined bedside. argatroban until warfarin goal INR of 4 and maintenance goal of 2-3. Pending appointing a legal guardian. Patient's chart, labs, images were reviewed and discussed with KARY Cardenas Enteric tube with metallic tip in the left upper quadrant likely in the stomach. 10/24/2020 doing well on trach shield on a 24-hour basis./ blood gases shows no worsening hypercapnia while on trach shield. No apneic breathing reported. laparoscopic gastrostomy tube placement (specifically 24 F) Oct discharge planning in place once court appointed DPOA available Acute anemia Acute metabolic, infectious encephalopathy Acute respiratory failure Healthcare associated pneumonia Acute hypoglycemia Hypokalemia Elevated troponins Severe protein malnutrition Morbid obesity AAA, 4 cm, infrarenal History of diabetes mellitus type 2 History of dyslipidemia history of hypertension Patient seen examined bedside. argatroban until warfarin goal INR of 4 and maintenance goal of 2-3. Pending appointing a legal guardian. Patient's chart, labs, images were reviewed and discussed with KARY Cardenas Enteric tube with metallic tip in the left upper quadrant likely in the stomach. Home on plavix and warfarin D/C INITIAL PLAN TO [facility] PENDING/ discharge planning in place once court appointed DPOA available D/W RN 10/25/2020 doing well on trach shield on a 24-hour basis./ blood gases shows no worsening hypercapnia while on trach shield. No apneic breathing reported. laparoscopic gastrostomy tube placement (specifically 24 F) Oct discharge planning in place once court appointed DPOA available Acute anemia Acute metabolic, infectious encephalopathy Acute respiratory failure Healthcare associated pneumonia Acute hypoglycemia Hypokalemia Elevated troponins Severe protein malnutrition Morbid obesity AAA, 4 cm, infrarenal History of diabetes mellitus type 2 History of dyslipidemia history of hypertension Patient seen examined bedside. argatroban until warfarin goal INR of 4 and maintenance goal of 2-3. Pending appointing a legal guardian. Patient's chart, labs, images were reviewed and discussed with KARY Cardenas Enteric tube with metallic tip in the left upper quadrant likely in the stomach. Home on plavix and warfarin D/C INITIAL PLAN TO [facility] PENDING/ discharge planning in place once court appointed DPOA available D/W KARY 10/26/2020 HGB 9.4 doing well on trach shield on a 24-hour basis./ blood gases shows no worsening hypercapnia while on trach shield. No apneic breathing reported. laparoscopic gastrostomy tube placement (specifically 24 F) Oct discharge planning in place once court appointed DPOA available Acute anemia Acute metabolic, infectious encephalopathy Acute respiratory failure Healthcare associated pneumonia Acute hypoglycemia Hypokalemia Elevated troponins Severe protein malnutrition Morbid obesity AAA, 4 cm, infrarenal History of diabetes mellitus type 2 History of dyslipidemia history of hypertension Patient seen examined bedside. argatroban until warfarin goal INR of 4 and maintenance goal of 2-3. Pending appointing a legal guardian. Patient's chart, labs, images were reviewed and discussed with KARY Cardenas Enteric tube with metallic tip in the left upper quadrant likely in the stomach. Home on plavix and warfarin D/C INITIAL PLAN TO [facility] PENDING/ discharge planning in place once court appointed DPOA available D/W RN Vitals Vitals Vital Signs Date Time Temp Pulse Resp B/P (MAP) Pulse Ox O2 Delivery O2 Flow Rate FiO2 10/26/20 07:42 100 Ventilator 10/26/20 07:15 98.5 96 26 125/83 (97) 10.0 98.5 Physical Exam General: Alert, Cooperative, No acute distress Heart: Regular rate (SR), Other (distatne heart sounds) Lungs: Other (Tracheostomy) Abdomen: Soft, Other (g tube in place) Extremities: No cyanosis, Other (2-3+ bilateral LE pitting edema) Skin: No rashes, No significant lesion Labs LABS Laboratory Tests Test 10/25/20 11:42 10/25/20 17:26 10/26/20 06:00 Glucose (Fingerstick) 156 mg/dL (70-99) 142 mg/dL (70-99) 141 mg/dL (70-99) Prothrombin Time 23.2 SEC (11.7-14.0) Prothromb Time International Ratio 2.1 (0.8-1.1) Assessment and Plan Assessmemt and Plan Problems Medical Problems: (1) NSTEMI (non-ST elevated myocardial infarction) Status: Acute (2) Obtundation Status: Acute (3) Respiratory arrest Status: Acute Comment Review of Relevant I have reviewed the following items denise (where applicable) has been applied. Labs Laboratory Tests Test 10/24/20 11:51 10/24/20 14:45 10/24/20 17:41 10/25/20 00:07 Glucose (Fingerstick) 171 mg/dL (70-99) 144 mg/dL (70-99) 146 mg/dL (70-99) Prothrombin Time 32.8 SEC (11.7-14.0) Prothromb Time International Ratio 3.3 (0.8-1.1) Test 10/25/20 05:15 10/25/20 05:22 10/25/20 11:42 10/25/20 17:26 White Blood Count 7.8 x10^3/uL (4.0-11.0) Red Blood Count 3.01 x10^6/uL (4.30-5.70) Hemoglobin 9.4 g/dL (13.0-17.5) Hematocrit 28.1 % (39.0-53.0) Mean Corpuscular Volume 93 fL (79-100) Mean Corpuscular Hemoglobin 31 pg (25-35) Mean Corpuscular Hemoglobin Concent 33 g/dL (31-37) Red Cell Distribution Width 16.0 % (11.5-14.5) Platelet Count 241 x10^3/uL (140-400) Neutrophils (%) (Auto) 57 % (31-73) Lymphocytes (%) (Auto) 30 % (24-48) Monocytes (%) (Auto) 7 % (0-9) Eosinophils (%) (Auto) 6 % (0-3) Basophils (%) (Auto) 1 % (0-3) Neutrophils # (Auto) 4.4 x10^3/uL (1.8-7.7) Lymphocytes # (Auto) 2.3 x10^3/uL (1.0-4.8) Monocytes # (Auto) 0.5 x10^3/uL (0.0-1.1) Eosinophils # (Auto) 0.5 x10^3/uL (0.0-0.7) Basophils # (Auto) 0.1 x10^3/uL (0.0-0.2) Prothrombin Time 25.2 SEC (11.7-14.0) Prothromb Time International Ratio 2.3 (0.8-1.1) Sodium Level 136 mmol/L (136-145) Potassium Level 4.5 mmol/L (3.5-5.1) Chloride Level 98 mmol/L (98-107) Carbon Dioxide Level 34 mmol/L (21-32) Anion Gap 4 (6-14) Blood Urea Nitrogen 21 mg/dL (8-26) Creatinine 0.8 mg/dL (0.7-1.3) Estimated GFR (Cockcroft-Gault) 95.0 Glucose Level 139 mg/dL (70-99) Calcium Level 9.0 mg/dL (8.5-10.1) Glucose (Fingerstick) 139 mg/dL (70-99) 156 mg/dL (70-99) 142 mg/dL (70-99) Test 10/26/20 06:00 Prothrombin Time 23.2 SEC (11.7-14.0) Prothromb Time International Ratio 2.1 (0.8-1.1) Glucose (Fingerstick) 141 mg/dL (70-99) Laboratory Tests Test 10/25/20 11:42 10/25/20 17:26 10/26/20 06:00 Glucose (Fingerstick) 156 mg/dL (70-99) 142 mg/dL (70-99) 141 mg/dL (70-99) Prothrombin Time 23.2 SEC (11.7-14.0) Prothromb Time International Ratio 2.1 (0.8-1.1) Medications Current Medications Fentanyl Citrate 30 ml @ 0 mls/hr CONT PRN IV SEE PROTOCOL; Start 09/22/20 at 09:45; Stop 10/13/20 at 09:24; Status DC Propofol 100 ml @ 0 mls/hr CONT PRN IV PER PROTOCOL Last administered on 09/22/20at 10:30; Start 09/22/20 at 09:45; Stop 09/26/20 at 20:12; Status DC Fentanyl Citrate (Fentanyl 2ml Vial) 25 mcg PRN Q1HR PRN IV SEE COMMENTS; Start 09/22/20 at 09:45; Stop 10/24/20 at 18:57; Status DC Fentanyl Citrate (Fentanyl 2ml Vial) 50 mcg PRN Q1HR PRN IV SEE COMMENTS Last administered on 10/03/20at 01:22; Start 09/22/20 at 09:45; Stop 10/24/20 at 18:57; Status DC Chlorhexidine Gluconate (Peridex) 15 ml BID MM ; Start 09/22/20 at 10:00; Stop 09/22/20 at 19:54; Status DC Midazolam HCl (Versed) 2 mg 1X ONCE IV ; Start 09/22/20 at 10:30; Stop 09/22/20 at 10:31; Status DC Iohexol (Omnipaque 300 Mg/ml) 75 ml 1X ONCE IV Last administered on 09/22/20at 11:06; Start 09/22/20 at 10:45; Stop 09/22/20 at 10:46; Status DC Info (CONTRAST GIVEN -- Rx MONITORING) 1 each PRN DAILY PRN MC SEE COMMENTS; Start 09/22/20 at 10:45; Stop 09/24/20 at 10:44; Status DC Potassium Chloride/Water 100 ml @ 100 mls/hr Q1H IV Last administered on 09/22/20at 20:27; Start 09/22/20 at 15:00; Stop 09/22/20 at 18:59; Status DC Cefepime HCl (Maxipime) 1 gm Q8HRS IVP Last administered on 09/29/20at 05:52; Start 09/22/20 at 14:00; Stop 09/29/20 at 10:32; Status DC Sennosides (Senna) 17.2 mg PRN BID PRN PO CONSTIPATION; Start 09/22/20 at 14:00 Docusate Sodium (Colace) 100 mg PRN DAILY PRN PO HARD STOOLS; Start 09/22/20 at 14:00; Stop 09/22/20 at 14:00; Status DC Ondansetron HCl (Zofran) 4 mg PRN Q6HRS PRN IVP NAUSEA/VOMITING, 1ST CHOICE; Start 09/22/20 at 14:00 Insulin Human Lispro (HumaLOG) 0-7 UNITS Q6HRS SQ Last administered on 10/25/20 at 13:00; Start 09/22/20 at 18:00 Dextrose (Dextrose 50%-Water Syringe) 12.5 gm PRN Q15MIN PRN IV SEE COMMENTS Last administered on 09/22/20at 17:47; Start 09/22/20 at 14:00 Dextrose/Sodium Chloride 1,000 ml @ 50 mls/hr Q20H IV Last administered on 10/12/20at 11:04; Start 09/22/20 at 14:00; Stop 10/13/20 at 09:24; Status DC Acetaminophen (Tylenol) 650 mg PRN Q4HRS PRN PO TEMP OVER 100.4F OR MILD PAIN Last administered on 09/23/20at 00:20; Start 09/22/20 at 14:00; Stop 09/23/20 at 16:24; Status DC Enoxaparin Sodium (Lovenox 40mg Syringe) 40 mg Q24H SQ ; Start 09/22/20 at 14:00; Status UNV Pantoprazole Sodium (PROTONIX VIAL for IV PUSH) 40 mg DAILY IVP Last administered on 10/25/20at 09:08; Start 09/23/20 at 09:00 Prochlorperazine Edisylate (Compazine) 10 mg PRN Q6HRS PRN IV NAUSEA/VOMITING, 2ND CHOICE; Start 09/22/20 at 14:00 Etomidate (Amidate) 20 mg STK-MED ONCE IV ; Start 09/22/20 at 17:46; Stop 09/22/20 at 17:46; Status DC Rocuronium [place] (Zemuron) 50 mg STK-MED ONCE .ROUTE ; Start 09/22/20 at 17:46 ; Stop 09/22/20 at 17:47; Status DC Norepinephrine Bitartrate 8 mg/ Dextrose 258 ml @ 21.769 mls/ hr CONT PRN IV PER PROTOCOL Last administered on 09/24/20at 13:20; Start 09/22/20 at 18:15; Stop 10/13/20 at 09:24; Status DC Potassium Chloride/Water 100 ml @ 100 mls/hr Q1H IV Last administered on 09/23/20at 14:30; Start 09/23/20 at 07:00; Stop 09/23/20 at 14:59; Status DC Acetaminophen (Tylenol) 650 mg PRN Q6HRS PRN PEG MILD PAIN / TEMP > 100.3'F Last administered on 10/25/20at 17:01; Start 09/23/20 at 16:30 Warfarin Sodium (Coumadin Per Pharmacy) 1 each PRN DAILY PRN MC SEE COMMENTS Last administered on 10/01/20at 12:32; Start 09/24/20 at 12:30; Stop 10/02/20 at 05:55; Status DC Warfarin Sodium (Coumadin) 5 mg 1X WARF ONCE PO Last administered on 09/24/20at 17:42; Start 09/24/20 at 16:00; Stop 09/24/20 at 16:01; Status DC Warfarin Sodium (Coumadin - No Dose Today) 1 each 1X WARF ONCE MC ; Start 09/25/20 at 16:00; Stop 09/25/20 at 16:01; Status DC Warfarin Sodium (Coumadin) 1 mg 1X WARF ONCE PO Last administered on 09/26/20at 16:00; Start 09/26/20 at 16:00; Stop 09/26/20 at 16:01; Status DC Propofol 100 ml @ 3.174 mls/ hr CONT PRN IV PER PROTOCOL Last administered on 10/09/20at 04:43; Start 09/26/20 at 20:15; Stop 10/13/20 at 09:24; Status DC Atropine Sulfate (ATROPINE 1mg SYRINGE) 1 mg STK-MED ONCE .ROUTE ; Start 09/25/20 at 10:00; Stop 09/27/20 at 08:20; Status DC Epinephrine HCl (EPINEPHrine SYRINGE) 1 mg STK-MED ONCE .ROUTE ; Start 09/25/20 at 10:00; Stop 09/27/20 at 08:20; Status DC Warfarin Sodium (Coumadin) 2 mg 1X WARF ONCE PO Last administered on 09/27/20at 17:53; Start 09/27/20 at 16:00; Stop 09/27/20 at 16:01; Status DC Aspirin (Aspirin Chewable) 81 mg DAILYWBKFT PO Last administered on 10/06/20at 11:39; Start 09/27/20 at 09:30; Stop 10/06/20 at 16:23; Status DC Clopidogrel Bisulfate (Plavix) 75 mg DAILYWBKFT PO Last administered on 10/09/20at 09:24; Start 09/27/20 at 09:30; Stop 10/09/20 at 17:03; Status DC Potassium Chloride/Water 100 ml @ 100 mls/hr Q1H IV Last administered on 09/10 09/30at 12:45; Start 09/27/20 at 11:30; Stop 09/27/20 at 13:29; Status DC Warfarin Sodium (Coumadin) 3 mg 1X WARF ONCE PO Last administered on 09/28/20at 18:18; Start 09/28/20 at 16:00; Stop 09/28/20 at 16:01; Status DC Cefepime HCl (Maxipime) 2 gm Q8HRS IVP Last administered on 10/20/20at 05:36; Start 09/29/20 at 14:00; Stop 10/20/20 at 13:23; Status DC Warfarin Sodium (Coumadin) 3 mg 1X WARF ONCE PO Last administered on 09/29/20at 16:55; Start 09/29/20 at 16:00; Stop 09/29/20 at 16:01; Status DC Warfarin Sodium (Coumadin) 3 mg 1X WARF ONCE PO Last administered on 09/30/20at 16:00; Start 09/30/20 at 16:00; Stop 09/30/20 at 16:01; Status DC Warfarin Sodium (Coumadin) 5 mg 1X WARF ONCE PO Last administered on 10/01/20at 16:35; Start 10/01/20 at 16:00; Stop 10/01/20 at 16:01; Status DC Multi-Ingred Cream/Lotion/Oil/ Oint (Artificial Tears Eye Ointment) 1 sudheer PRN Q1HR PRN OU DRY EYE Last administered on 10/03/20at 12:24; Start 10/02/20 at 12:45 Fentanyl Citrate (Fentanyl 2ml Vial) 25 mcg PRN Q5MIN PRN IVP MILD PAIN 1-3; Start 10/05/20 at 06:00; Stop 10/06/20 at 05:59; Status DC Fentanyl Citrate (Fentanyl 2ml Vial) 50 mcg PRN Q5MIN PRN IVP MODERATE PAIN 4- 6; Start 10/05/20 at 06:00; Stop 10/06/20 at 05:59; Status DC Morphine Sulfate (Morphine Sulfate) 1 mg PRN Q10MIN PRN IVP SEVERE PAIN 7-10; Start 10/05/20 at 06:00; Stop 10/06/20 at 05:59; Status UNV Ringer's Solution 1,000 ml @ 30 mls/hr Q24H IV ; Start 10/05/20 at 06:00; Stop 10/05/20 at 17:59; Status DC Hydromorphone HCl (Dilaudid) 0.5 mg PRN Q10MIN PRN IVP SEVERE PAIN 7-10, 2nd CHOICE; Start 10/05/20 at 06:00; Stop 10/06/20 at 05:59; Status UNV Prochlorperazine Edisylate (Compazine) 5 mg PACU PRN PRN IVP NAUSEA, MRX1; Start 10/05/20 at 06:00; Stop 10/06/20 at 05:59; Status DC Bupivacaine HCl/ Epinephrine Bitart (Sensorcain-Epi 0.5%-1:230443 Mpf) 30 ml STK-MED ONCE .ROUTE Last administered on 10/05/20at 10:09; Start 10/05/20 at 07:12; Stop 10/05/20 at 07:12; Status DC Cellulose (Surgicel Fibrillar 1x2) 1 each STK-MED ONCE .ROUTE Last administered on 10/05/20at 10:30; Start 10/05/20 at 07:12; Stop 10/05/20 at 07:12; Status DC Rocuronium [place] (Zemuron) 50 mg STK-MED ONCE .ROUTE ; Start 10/05/20 at 09:06; Stop 10/05/20 at 09:06; Status DC Rocuronium [place] (Zemuron) 50 mg STK-MED ONCE .ROUTE ; Start 10/05/20 at 10:10; Stop 10/05/20 at 10:10; Status DC Warfarin Sodium (Coumadin Per Pharmacy) 1 each PRN DAILY PRN MC SEE COMMENTS Last administered on 10/06/20at 09:32; Start 10/05/20 at 14:00; Stop 10/06/20 at 16:23; Status DC Argatroban (Argatroban Per Pharmacy) 1 each PRN DAILY PRN MC SEE COMMENTS Last administered on 10/13/20at 16:34; Start 10/05/20 at 14:00; Stop 10/24/20 at 09:37; Status DC Argatroban 50 mg/ Sodium Chloride 50 ml @ 6.48 mls/hr CONT PRN IV ADJUST PER PTT; Start 10/05/20 at 14:00; Stop 10/05/20 at 13:59; Status DC Argatroban 50 mg/ Sodium Chloride 50 ml @ 6.48 mls/hr CONT PRN IV ADJUST PER PTT; Start 10/06/20 at 00:00; Status Cancel Warfarin Sodium (Coumadin) 5 mg 1X WARF ONCE PO Last administered on 10/05/20at 21:23; Start 10/05/20 at 16:00; Stop 10/05/20 at 16:01; Status DC Argatroban 50 mg/ Sodium Chloride 50 ml @ 0 mls/hr CONT PRN IV PER PROTOCOL Last administered on 10/19/20at 22:13; Start 10/06/20 at 09:00; Stop 10/20/20 at 13:02; Status DC Warfarin Sodium (Coumadin) 5 mg 1X WARF ONCE PO ; Start 10/06/20 at 16:00; Stop 10/06/20 at 16:01; Status Cancel Amiodarone HCl (Cordarone) 400 mg DAILY PO Last administered on 10/25/20at 09:08; Start 10/06/20 at 10:00 Atorvastatin Calcium (Lipitor) 40 mg QHS PO Last administered on 10/25/20at 21:19; Start 10/06/20 at 21:00 Metoprolol Tartrate (Lopressor) 25 mg BID PO Last administered on 10/25/20at 21:19; Start 10/06/20 at 10:00 Furosemide (Lasix) 40 mg DAILY IVP Last administered on 10/25/20at 09:08; Start 10/06/20 at 10:00 Potassium Bicarbonate (Potassium Effervescent Tablet) 20 meq DAILY PEG Last administered on 10/25/20at 09:07; Start 10/06/20 at 10:00 Tirofiban/Sodium Chloride 100 ml @ 0 mls/hr CONT PRN IV PER PROTOCOL Last administered on 10/11/20at 14:11; Start 10/09/20 at 17:00; Stop 10/11/20 at 20:21; Status DC Albumin Human 100 ml @ 100 mls/hr 1X ONCE IV Last administered on 10/12/20at 15:22; Start 10/12/20 at 14:00; Stop 10/12/20 at 14:59; Status DC Furosemide (Lasix) 40 mg 1X ONCE IVP Last administered on 10/12/20at 15:22; Start 10/12/20 at 15:00; Stop 10/12/20 at 15:01; Status DC Aspirin (Aspirin Chewable) 81 mg 1X ONCE PO Last administered on 10/13/20at 12:25; Start 10/13/20 at 10:30; Stop 10/13/20 at 10:31; Status DC Aspirin (Aspirin Chewable) 81 mg DAILYWBKFT PO Last administered on 10/25/20at 09:07; Start 10/14/20 at 08:00 Fentanyl Citrate (Fentanyl 2ml Vial) 25 mcg PRN Q5MIN PRN IVP MILD PAIN 1-3; Start 10/18/20 at 06:00; Stop 10/18/20 at 20:00; Status DC Ringer's Solution 1,000 ml @ 30 mls/hr Q24H IV Last administered on 10/18/20at 06:00; Start 10/18/20 at 06:00; Stop 10/18/20 at 17:59; Status DC Bupivacaine HCl/ Epinephrine Bitart (Sensorcain-Epi 0.5% Kit) 30 ml STK-MED ONCE .ROUTE Last administered on 10/18/20at 11:04; Start 10/18/20 at 10:23; Stop 10/18/20 at 10:24; Status DC Rocuronium [place] (Zemuron) 50 mg STK-MED ONCE .ROUTE ; Start 10/18/20 at 10:48; Stop 10/18/20 at 10:48; Status DC Sevoflurane (Ultane) 60 ml STK-MED ONCE IH ; Start 10/18/20 at 11:13; Stop 10/18/20 at 11:13; Status DC Fentanyl Citrate (Fentanyl 2ml Vial) 100 mcg STK-MED ONCE .ROUTE ; Start 10/18/20 at 11:14; Stop 10/18/20 at 11:14; Status DC Phenylephrine HCl (PHENYLEPHRINE in 0.9% NACL PF) 1 mg STK-MED ONCE IV ; Start 10/18/20 at 11:55; Stop 10/18/20 at 11:56; Status DC Argatroban (Argatroban Per Pharmacy) 1 each PRN DAILY PRN MC SEE COMMENTS; Start 10/19/20 at 10:30; Status UNV Clopidogrel Bisulfate (Plavix) 75 mg DAILYWBKFT PO Last administered on 10/25/20at 09:08; Start 10/19/20 at 14:00 Warfarin Sodium (Coumadin Per Pharmacy) 1 each PRN DAILY PRN MC SEE COMMENTS Last administered on 10/25/20at 14:02; Start 10/19/20 at 13:15 Warfarin Sodium (Coumadin) 5 mg 1X WARF ONCE PO Last administered on 10/19/20at 15:24; Start 10/19/20 at 16:00; Stop 10/19/20 at 16:01; Status DC Warfarin Sodium (Coumadin) 5 mg 1X WARF ONCE PO Last administered on 10/20/20at 19:10; Start 10/20/20 at 16:00; Stop 10/20/20 at 16:01; Status DC Argatroban 50 mg/ Sodium Chloride 50 ml @ 0 mls/hr CONT PRN IV PER PROTOCOL Last administered on 10/24/20at 01:10; Start 10/20/20 at 13:15; Stop 10/24/20 at 09:37; Status DC Warfarin Sodium (Coumadin) 6 mg 1X WARF ONCE PO Last administered on 10/21/20at 17:56; Start 10/21/20 at 16:00; Stop 10/21/20 at 16:01; Status DC Warfarin Sodium (Coumadin) 7.5 mg 1X WARF ONCE PO Last administered on 10/22/20at 17:45; Start 10/22/20 at 16:00; Stop 10/22/20 at 16:01; Status DC Warfarin Sodium (Coumadin) 6 mg 1X WARF ONCE PO Last administered on 10/23/20at 17:05; Start 10/23/20 at 16:00; Stop 10/23/20 at 16:01; Status DC Warfarin Sodium (Coumadin) 4 mg 1X WARF ONCE PO ; Start 10/24/20 at 16:00; Stop 10/24/20 at 10:45; Status DC Warfarin Sodium (Coumadin) 4 mg 1X WARF ONCE PO Last administered on 10/24/20at 17:52; Start 10/24/20 at 16:00; Stop 10/24/20 at 16:01; Status DC Warfarin Sodium (Coumadin) 5 mg 1X WARF ONCE PO Last administered on 10/25/20at 16:51; Start 10/25/20 at 16:00; Stop 10/25/20 at 16:01; Status DC Active Scripts Active Amiodarone Hcl 200 Mg Tablet 400 Mg PO DAILY 90 Days [Warfarin Per Pharmacy] 1 EACH Each 1 Each MC PRN DAILY PRN 30 Days Clopidogrel (Clopidogrel Bisulfate) 75 Mg Tablet 75 Mg PO DAILYWBKFT 90 Days Humalog (Insulin Lispro) 100 Unit/1 Ml Insuln.pen 0 Units SQ TIDWMEALS 30 Days Duoneb 0.5-3(2.5) Mg/3 Ml (Albuterol/Ipratropium) 3 Ml Ampul.neb 3 Ml NEB RTQID 30 Days Aspirin 325 Mg Tablet 325 Mg PO DAILYWBKFT 30 Days Metoprolol Tartrate 25 Mg Tablet 25 Mg PO BID 30 Days Montelukast Sodium Tablet (Montelukast Sodium) 10 Mg Tablet 10 Mg PO QHS Gabapentin 600 Mg Tablet 600 Mg PO BID 30 Days Reported Glimepiride 4 Mg Tablet 1 Tab PO DAILY Furosemide 40 Mg Tablet 1 Tab PO BID Symbicort 160-4.5 Mcg Inhaler (Budesonide/Formoterol Fumarate) 10.2 Gm Hfa.aer.ad 1 Puff INH DAILY Losartan-Hctz 100-12.5 Mg Tab (Losartan/Hydrochlorothiazide) 1 Each Tablet 1 Tab PO DAILY Nitrofurantoin Snyder-Mcr 100 Mg (Nitrofurantoin Monohyd/M-Cryst) 100 Mg Capsule 1 Cap PO BID Betamethasone Valerate 60 Ml Lotion 1 TP QHS Atorvastatin Calcium 40 Mg Tablet 1 Tab PO DAILY Diltiazem 24Hr Cd (Diltiazem HCl) 240 Mg Cap.er.24h 1 Cap PO DAILY Nystop (Nystatin) 60 Gm Powder 1 Sudheer TP BID Pepcid (Famotidine) 20 Mg Tablet 20 Mg PO BID Vitals/I & O Vital Sign - Last 24 Hours 10/25/20 10/25/20 10/25/20 10/25/20 09:08 09:09 11:00 11:45 Temp 99.2 99.2 Pulse 93 93 89 Resp 20 B/P (MAP) 122/66 122/66 129/76 (93) Pulse Ox 96 100 O2 Delivery trach shield Tracheal Collar O2 Flow Rate 10.0 8.0 9/15/21 9/15/21 9/15/21 9/15/21 12:00 14:41 15:00 16:00 Temp 100.3 100.3 Pulse 90 Resp 18 B/P (MAP) 119/69 (86) Pulse Ox 100 100 O2 Delivery Tracheal Collar trach shield O2 Flow Rate 8.0 8.0 10.0 8.0 10/25/20 10/25/20 10/25/20 10/25/20 19:48 19:54 19:54 21:19 Temp 98.1 98.1 Pulse 86 86 Resp 20 B/P (MAP) 123/70 (87) 123/70 Pulse Ox 100 O2 Delivery Tracheal Collar Trach Collar O2 Flow Rate 10.0 8.0 8.0 10/25/20 10/25/20 10/26/20 10/26/20 22:50 22:56 00:02 03:00 Temp 98.7 98.6 98.7 98.6 Pulse 88 90 Resp 21 34 B/P (MAP) 126/76 (93) 134/80 (98) Pulse Ox 100 100 100 O2 Delivery Ventilator Tracheal Collar BiPAP/CPAP O2 Flow Rate 10.0 8.0 10/26/20 10/26/20 10/26/20 04:00 07:15 07:42 Temp 98.5 98.5 Pulse 96 Resp 26 B/P (MAP) 125/83 (97) Pulse Ox 100 100 O2 Delivery Tracheal Collar Ventilator O2 Flow Rate 15.0 10.0 Intake and Output 10/25/20 10/25/20 10/26/20 15:00 23:00 07:00 Intake Total 799 ml 903 ml Output Total 475 ml 350 ml Balance 324 ml 553 ml Justicifation of Admission Dx: Justifications for Admission: Justification of Admission Dx: Yes CHF: Cardiac Arrhythmias KLAUDIA HAY MD Oct 26, 2020 09:04
[2020-10-26] MEDS: CLOPIDOGREL BISULFATE 75 MG TABLET PO SCH (09:13)
[2020-10-26] MEDS: ASPIRIN CHEWABLE 81 MG TABLET. PO SCH (09:13)
[2020-10-26] MEDS: POTASSIUM BICARB 20 MEQ EFFERVESCENT TABLET. PEG SCH (09:13)
[2020-10-26] MEDS: AMIODARONE HCL 200 MG TABLET. PO SCH (09:14)
[2020-10-26] MEDS: METOPROLOL TART IMMED RELEASE 25 MG TABLET. PO SCH ×2 (09:14→21:50)
[2020-10-26] MEDS: FUROSEMIDE 40 MG/4 ML VIAL. IVP SCH (09:15)
[2020-10-26] MEDS: PANTOPRAZOLE IV PUSH 40 MG VIAL. IVP SCH (09:15)
--- NOTE | 2020-10-26 10:53 | NUR ---
SS following up with discharge planning. SS reviewed pt chart and discussed with pt RN. Pt is currently on trach shield at 8 liters. G tube in place. COVID19 negative. Unresponsive. Pt was declined at [place] due to being to medically complex for retirement unit. LTACH facilities requesting that pt have DPOA or Guardian prior to accepting for admission. Pt has no family or kinship to accept responsibility. 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 SS will continue to follow for discharge planning.
[2020-10-26 11:08] VITALS: BP 110/72
--- NOTE | 2020-10-26 11:24 | PDOC ---
CARDIO Progress Notes Date and Time Date of Service 10/26/20 Time of Evaluation 1120 Subjective Subjective: Other (nonverbal) Vitals Vitals Vital Signs Date Time Temp Pulse Resp B/P (MAP) Pulse Ox O2 Delivery O2 Flow Rate FiO2 10/26/20 11:08 98.7 81 24 110/72 (85) 100 Tracheal Collar 10.0 98.7 Weight Weight [ ] Input and Output Intake and Output Intake and Output 10/26/20 07:00 Intake Total 1702 ml Output Total 825 ml Balance 877 ml Intake Oral 0 ml Tube Feeding 1177 ml Other 525 ml Output Urine Total 825 ml # Bowel Movements 3 Laboratory Labs Laboratory Tests Test 10/25/20 11:42 10/25/20 17:26 10/26/20 06:00 Glucose (Fingerstick) 156 mg/dL (70-99) 142 mg/dL (70-99) 141 mg/dL (70-99) Prothrombin Time 23.2 SEC (11.7-14.0) Prothromb Time International Ratio 2.1 (0.8-1.1) Physical Exam HEENT: Neck Supple W Full Motion Chest: Symmetric LUNGS: Other (trach on 10L) Heart: RRR (SR) Abdomen: Other (obese; PEG) Extremities: No Edema Neurology: other (opens eyes, does not track or follow commands) Assessment Assessment 1. Acute on chronic respiratory failure with associated severe hypoglycemia and encephalopathy and COPD, CHF; s/p tracheostomy. 2. Metabolic encephalopathy 3. Acute on chronic diastolic/systolic CHF 4. CAD/STEMI: S/P complex PCI/stents to RCA/LAD 08/16/2020. [facility] 08/31 with ISR to RCA, S/P PCI, clinically stable 5. ICM: EF at 25%, clinically well compensated. 6. PAFIB: maintaining SR. Continue amiodarone for rhythm maintenance. 7. Hx of HIT 8. Anemia: hgb stable 9. Hx of CVA 10. Dysphagia; s/p PEG 11. Right pop artery aneurysm. Recommendations Secondary prevention Coumadin and Plavix Lasix therapy Amiodarone for rhythm maintenance. Supportive care Prognosis poor Justicifation of Admission Dx: Justifications for Admission: Justification of Admission Dx: Yes CHF: Cardiac Arrhythmias PEDRO VERDE APRN Oct 26, 2020 11:24
--- NOTE | 2020-10-26 13:44 | NUR ---
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 Target range for this patient is: 2 -3 P: Warfarin dose: 6 mg Today at 1600 Bridge Therapy: Argatroban Therapeutic Next INR due tomorrow Pharmacy anticoagulation service will continue to follow. Roseline Varela [facility], 10/26/20 [id number]
[2020-10-26 14:43] VITALS: BP 114/67
[2020-10-26] MEDS ORDERED: WARFARIN 3 MG TABLET. PO ONE (16:00)
[2020-10-26] MEDS ORDERED: ALTEPLASE 1MG SYRINGE. INT CAT ONE (18:30)
[2020-10-26 19:00] VITALS: BP 120/69
--- NOTE | 2020-10-26 19:50 | NUR ---
Pt in bed assessment completed vss pt alert to stimuli pt resting do not appear to be in pain will resume care and continue to monitor pt.
[2020-10-26] MEDS: ATORVASTATIN CALCIUM 40 MG TABLET. PO SCH (21:49)
[2020-10-26 22:55] VITALS: BP 126/72
[2020-10-27 03:00] VITALS: BP 108/66
[2020-10-27 05:42] LABS: PROTHROMBIN TIME PATIENT 25.1 SEC (11.7-14.0)
[2020-10-27] MEDS: INSULIN LISPRO 300 UNITS/3 ML VIAL. SQ SCH ×5 (05:59→23:51)
[2020-10-27 07:00] VITALS: BP 104/63
--- NOTE | 2020-10-27 07:28 | PDOC ---
PROGRESS NOTES Date of Service: DATE: 10/27/20 TIME: 07:28 Chief Complaint Chief Complaint impression Acute anemia Acute metabolic, infectious encephalopathy Acute respiratory failure Healthcare associated pneumonia Acute hypoglycemia Hypokalemia Elevated troponins Severe protein malnutrition Morbid obesity AAA, 4 cm, infrarenal History of diabetes mellitus type 2 History of dyslipidemia history of hypertension History of recent STEMI History of CAD History of peripheral artery disease History of JEANNE History of CVA History of paroxysmal atrial fibrillation Ischemic cardiomyopathy History of Present Illness History of Present Illness Mr Andrews is a 70-year-old male with a recent prolonged hospitalization for STEMI and respiratory failure for which she was treated with arterial thrombolysis for a right leg popliteal artery aneurysm and also had left heart cath with placement of a stent in the LAD and RCA comes in today after he was found obtunded at his [facility] facility. Apparently according to the nursing facility patient was in his usual state of health and he was conversational but then became altered. His blood glucose was found to be in the 30s. Glucose tabs and glucagon was given in route and his GCS reported at 6. Upon arrival patient's mental status did not improve and he was eventually intubated for airway protection. Of note EMS was bagging the patient through the nasal access. In the ED, patient was placed on a vent and pulmonology was consulted. Patient was also taken to the CT scanner for sanders scanning. Patient was started to wake up on the vent and sedation was ordered. 09/23: Patient examined at bedside. Intubated. Not on any sedation but unresponsive. Neurology consult in place. 09/24: Patient seen and examined at bedside. Remains intubated he is off sedation but still remains unresponsive. Planning for MRI brain in the morning. Further plan to be determined by MRI. 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 09/25: Afebrile, currently breathing on ventilator with FiO2 50%, PEEP 5. Had CODE BLUE in ICU this morning; received 2 rounds of CPR, epinephrine, and atropine with ROSC. MRI brain negative. Made DNR, and after discussion with Dr. Rubalcava he agrees. 09/26:: Afebrile. Still on vent, with FiO2 45%, PEEP 5. After discussion with Dr. Rubalcava yesterday, patient was made DNR. In the ED is likely a poor candidate for weaning trials may need trach in near future if no significant improvement. 09/27:: Afebrile. On vent with FiO2 40%, PEEP 5. Potassium 2.8 today, will replace. Warfarin has been resumed. Discussed with pharmacy, will resume aspirin and Plavix. May need tracheostomy by the end of the week if no improvement in mental status. 09/28:: Afebrile. On ventilator with FiO2 40%, PEEP 5. Warfarin has been res umed; INR 1.3 today. Some morning labs still pending; hemoglobin yesterday 7.3, will continue to monitor. Continue IV cefepime and supportive care. 09/29: Afebrile. Breathing on vent with FiO2 40%, PEEP 5. INR 1.2 today; pharmacy to help with warfarin dosing. White count within normal range, renal function stable. Spoke with pharmacy about cefepime 1 g every 8 hours dosing; this has been changed to cefepime 2 g every 8 hours. 09/30: Afebrile. Currently breathing on vent with FiO2 40%, PEEP 5. Continue antibiotics, cefepime 2 g every 8 hours. INR 1.4; continue warfarin dosing per pharmacy. Possible tracheostomy at some point. Critical care time 30 minutes reviewing charts, labs, examination, discussion with RN. 10/01: T-max 100.3 F. On ventilator with FiO2 40%, PEEP 5. Continue antibiotics, cefepime 2 g every 8 hours. INR 1.4, still subtherapeutic; continue warfarin dosing per pharmacy. Possible tracheostomy at some point. 10/02: No acute events overnight. Patient saturating 99% on vent settings of 1 0/450/40/5. Patient will likely need a trach and PEG at some point. We will hold warfarin and start 2 units PRBC transfusion. Patient's chart, labs, images were reviewed and discussed with RN 10/03: No acute events overnight. Patient sat 100% on minimal vent settings. No sedation at this point and patient is opening his eyes spontaneously. Not much response or spontaneous movements. Surgery has been consulted for tracheostomy. Patient will also likely need a PEG tube. 10/04: No acute events overnight. Patient saturating 90% on minimal vent settings. T-max 100.4 overnight. Plan for trach tomorrow with surgery. Patient's chart, labs, images were reviewed and discussed with RN 10/05: No acute events overnight. Patient saturating 99% on minimal vent settings. Plan for tracheostomy today. Consent is provided by authorization by 2 physicians due to patient having no close relatives or DPOA. Will resume heparin and warfarin bridging tomorrow after tracheostomy 10/07: No acute events overnight. Patient seen and examined bedside. On trach vent. Saturating 99%. Pending GI evaluation for possible PEG placement after discussing with cardiology whether to continue with Plavix. Possibly place PEG if patient is only on aspirin and stopping argatroban. 10/08: No acute events overnight. Patient continues to be on trach mechanical vent. Saturating 100%. Pending decision from GI whether to proceed with PEG placement depending on the type of anticoagulation patient will be on. 10/09: No overnight events. On trach with vent support 40% FiO2 PEEP of 5. Currently argatroban and propofol for minimal sedation. When sedation is weaned he has no meaningful movements but has pulled at his tracheostomy site. Unable to hold plavix due to recently placed stents. 10/10: Afebrile today. On trach with vent support 40% FiO2 PEEP of 5. Continue argatroban and changed to Aggrastat in anticipation of surgical consultation for potential laparoscopic PEG placement. INR 1.6. Hb greater than 9 no significant neurologic recovery today. 10/11: Afebrile. On trach with vent support 40% FiO2 PEEP of 5. INR 1.8. Not making meaningful eye contact. Labs otherwise stable. 10/12: Afebrile. Trach with vent support 40% FiO2 PEEP five O2 saturations 92%. INR 1.8, mag 1.8, Hb 8.4. Not following commands. Tentative plans for surgical PEG next week. 10/13: Afebrile. Trach with vent support 40% FiO2 PEEP 5. Eyes open, not tracking or following commands. Holding Plavix. On argatroban. 10/14: Afebrile. Trach with vent support 40% FiO2 PEEP of 5. Will open eyes intermittently not necessarily to voice. Good urine output. Labs stable. 10/15: Afebrile overnight. Trach with vent AC 40% fio2 PEEP 5. Had a very large bowel movement. Still not tracking. Hb 9, INR 1.7, glucose 144. Tentative plan for PEG 10/18/2020 CC time 30 minutes 9/6/21: Patient seen and examined in the ICU. He was resting and still on vent via trach. Has NG running via Dobhoff, feeding at 40cc/hr. AC/10/450/40% plus 5 PEEP. Discussed with RN. Chart reviewed. 10/17/20: Patient was seen and examined in the ICU today. Still on vent via trach at AC/10/450/40 plus 5 PEEP. While examined, patient was at 100% O2 saturation. Has SCDs on for DVT prophylaxis. Stauffer catheter in place. On IV argatroban. R subclavian triple lumen in place. Dobhoff running at 40cc/hr. Discussed with RN. Chart reviewed. 10/18/20: Patient seen and examined in ICU. His eyes are open. On vent via trach with settings that were recently changed to spontaneous respirations with FiO2 of 40 and 5 PEEP. Trach is clean and dry. Currently, oxygen saturation is at 100%. Stauffer to bedside and rectal bag in place. Discussed with RN. Chart revi ewed. 10/19/20: Patient was seen and examined in the ICU today. His eyes were open and he was resting. On BiPAP via trach AVAPS/10/450/40 plus 5 PEEP. Trach is clean and dry. Has SCDs for DVT prophylaxis. Patient has rectal bag, Stauffer to bedside, and NG tube in place. Discussed with RN. Chart reviewed. 10/20/20 No acute events overnight. Patient seen and examined bedside. Transferred from the ICU. Continues to be nonverbal and not following much commands. Opens eyes to voice. Currently on BiPAP via trach on AVAPS setting 10/450/40 PEEP of 5. Trach site is clear. No signs of infections. Patient's chart, labs, images were reviewed and discussed with RN 10/21/2020 No acute events overnight. Patient seen and examined bedside. Afebrile. Cont inues to be nonverbal but opens eyes to voice. Currently on BiPAP. Patient's chart, labs, images were reviewed and discussed with RN. 10/22/2020 No acute events overnight. Patient seen examined bedside. Continue with argatroban until warfarin goal INR of 4 and maintenance goal of 2-3. Please see admissions representative note. Pending appointing a legal guardian. Patient's chart, labs, images were reviewed and discussed with RN 10/23/2020 laparoscopic gastrostomy tube placement (specifically 24 F) Oct discharge planning in place once court appointed DPOA available Acute anemia Acute metabolic, infectious encephalopathy Acute respiratory failure Healthcare associated pneumonia Acute hypoglycemia Hypokalemia Elevated troponins Severe protein malnutrition Morbid obesity AAA, 4 cm, infrarenal History of diabetes mellitus type 2 History of dyslipidemia history of hypertension Patient seen examined bedside. argatroban until warfarin goal INR of 4 and maintenance goal of 2-3. Pending appointing a legal guardian. Patient's chart, labs, images were reviewed and discussed with KARY Cardenas Enteric tube with metallic tip in the left upper quadrant likely in the stomach. 10/24/2020 doing well on trach shield on a 24-hour basis./ blood gases shows no worsening hypercapnia while on trach shield. No apneic breathing reported. laparoscopic gastrostomy tube placement (specifically 24 F) Oct discharge planning in place once court appointed DPOA available Acute anemia Acute metabolic, infectious encephalopathy Acute respiratory failure Healthcare associated pneumonia Acute hypoglycemia Hypokalemia Elevated troponins Severe protein malnutrition Morbid obesity AAA, 4 cm, infrarenal History of diabetes mellitus type 2 History of dyslipidemia history of hypertension Patient seen examined bedside. argatroban until warfarin goal INR of 4 and maintenance goal of 2-3. Pending appointing a legal guardian. Patient's chart, labs, images were reviewed and discussed with KARY Cardenas Enteric tube with metallic tip in the left upper quadrant likely in the stomach. Home on plavix and warfarin D/C INITIAL PLAN TO [facility] PENDING/ discharge planning in place once court appointed DPOA available D/W RN 10/25/2020 doing well on trach shield on a 24-hour basis./ blood gases shows no worsening hypercapnia while on trach shield. No apneic breathing reported. laparoscopic gastrostomy tube placement (specifically 24 F) Oct discharge planning in place once court appointed DPOA available Acute anemia Acute metabolic, infectious encephalopathy Acute respiratory failure Healthcare associated pneumonia Acute hypoglycemia Hypokalemia Elevated troponins Severe protein malnutrition Morbid obesity AAA, 4 cm, infrarenal History of diabetes mellitus type 2 History of dyslipidemia history of hypertension Patient seen examined bedside. argatroban until warfarin goal INR of 4 and maintenance goal of 2-3. Pending appointing a legal guardian. Patient's chart, labs, images were reviewed and discussed with KARY Cardenas Enteric tube with metallic tip in the left upper quadrant likely in the stomach. Home on plavix and warfarin D/C INITIAL PLAN TO [facility] PENDING/ discharge planning in place once court appointed DPOA available D/W RN 10/26/2020 HGB 9.4 doing well on trach shield on a 24-hour basis./ blood gases shows no worsening hypercapnia while on trach shield. No apneic breathing reported. laparoscopic gastrostomy tube placement (specifically 24 F) Oct discharge planning in place once court appointed DPOA available Acute anemia Acute metabolic, infectious encephalopathy Acute respiratory failure Healthcare associated pneumonia Acute hypoglycemia Hypokalemia Elevated troponins Severe protein malnutrition Morbid obesity AAA, 4 cm, infrarenal History of diabetes mellitus type 2 History of dyslipidemia history of hypertension Patient seen examined bedside. argatroban until warfarin goal INR of 4 and maintenance goal of 2-3. Pending appointing a legal guardian. Patient's chart, labs, images were reviewed and discussed with KARY Cardenas Enteric tube with metallic tip in the left upper quadrant likely in the stomach. Home on plavix and warfarin D/C INITIAL PLAN TO [facility] PENDING/ discharge planning in place once court appointed DPOA available D/W RN 10/27/2020 HGB 9.4 doing well on trach shield on a 24-hour basis./ blood gases shows no worsening hypercapnia while on trach shield. No apneic breathing reported. laparoscopic gastrostomy tube placement (specifically 24 F) Oct discharge planning in place once court appointed DPOA available Acute anemia Acute metabolic, infectious encephalopathy Acute respiratory failure Healthcare associated pneumonia Acute hypoglycemia Hypokalemia Elevated troponins Severe protein malnutrition Morbid obesity AAA, 4 cm, infrarenal History of diabetes mellitus type 2 History of dyslipidemia history of hypertension Patient seen examined bedside. argatroban until warfarin goal INR of 4 and maintenance goal of 2-3. Pending appointing a legal guardian. Patient's chart, labs, images were reviewed and discussed with KARY Cardenas Enteric tube with metallic tip in the left upper quadrant likely in the stomach. Home on plavix and warfarin D/C INITIAL PLAN TO [facility] PENDING/ discharge planning in place once court appointed DPOA available D/W RN Vitals Vitals Vital Signs Date Time Temp Pulse Resp B/P (MAP) Pulse Ox O2 Delivery O2 Flow Rate FiO2 10/27/20 05:10 100 Ventilator 10/27/20 04:05 10.0 10/27/20 03:00 99.5 82 14 108/66 (80) 99.5 Physical Exam General: Alert, Cooperative, No acute distress Heart: Regular rate (SR), Other (distatne heart sounds) Lungs: Other (Tracheostomy) Abdomen: Soft, Other (g tube in place) Extremities: No cyanosis, Other (2-3+ bilateral LE pitting edema) Skin: No rashes, No significant lesion Labs LABS Laboratory Tests Test 10/26/20 11:44 10/26/20 16:40 10/26/20 23:43 10/27/20 05:29 Glucose (Fingerstick) 150 mg/dL (70-99) 151 mg/dL (70-99) 156 mg/dL (70-99) 154 mg/dL (70-99) Assessment and Plan Assessmemt and Plan Problems Medical Problems: (1) NSTEMI (non-ST elevated myocardial infarction) Status: Acute (2) Obtundation Status: Acute (3) Respiratory arrest Status: Acute Comment Review of Relevant I have reviewed the following items denise (where applicable) has been applied. Labs Laboratory Tests Test 10/25/20 11:42 10/25/20 17:26 10/26/20 06:00 10/26/20 11:44 Glucose (Fingerstick) 156 mg/dL (70-99) 142 mg/dL (70-99) 141 mg/dL (70-99) 150 mg/dL (70-99) Prothrombin Time 23.2 SEC (11.7-14.0) Prothromb Time International Ratio 2.1 (0.8-1.1) Test 10/26/20 16:40 10/26/20 23:43 10/27/20 05:29 Glucose (Fingerstick) 151 mg/dL (70-99) 156 mg/dL (70-99) 154 mg/dL (70-99) Laboratory Tests Test 10/26/20 11:44 10/26/20 16:40 10/26/20 23:43 10/27/20 05:29 Glucose (Fingerstick) 150 mg/dL (70-99) 151 mg/dL (70-99) 156 mg/dL (70-99) 154 mg/dL (70-99) Medications Current Medications Fentanyl Citrate 30 ml @ 0 mls/hr CONT PRN IV SEE PROTOCOL; Start 09/22/20 at 09:45; Stop 10/13/20 at 09:24; Status DC Propofol 100 ml @ 0 mls/hr CONT PRN IV PER PROTOCOL Last administered on at 10:30; Start 09/22/20 at 09:45; Stop 09/26/20 at 20:12; Status DC Fentanyl Citrate (Fentanyl 2ml Vial) 25 mcg PRN Q1HR PRN IV SEE COMMENTS; Start 09/22/20 at 09:45; Stop 10/24/20 at 18:57; Status DC Fentanyl Citrate (Fentanyl 2ml Vial) 50 mcg PRN Q1HR PRN IV SEE COMMENTS Last administered on 10/03/20at 01:22; Start 09/22/20 at 09:45; Stop 10/24/20 at 18:57; Status DC Chlorhexidine Gluconate (Peridex) 15 ml BID MM ; Start 09/22/20 at 10:00; Stop 09/22/20 at 19:54; Status DC Midazolam HCl (Versed) 2 mg 1X ONCE IV ; Start 09/22/20 at 10:30; Stop 09/22/20 at 10:31; Status DC Iohexol (Omnipaque 300 Mg/ml) 75 ml 1X ONCE IV Last administered on 09/22/20at 11:06; Start 09/22/20 at 10:45; Stop 09/22/20 at 10:46; Status DC Info (CONTRAST GIVEN -- Rx MONITORING) 1 each PRN DAILY PRN MC SEE COMMENTS; Start 09/22/20 at 10:45; Stop 09/24/20 at 10:44; Status DC Potassium Chloride/Water 100 ml @ 100 mls/hr Q1H IV Last administered on 09/22/20at 20:27; Start 09/22/20 at 15:00; Stop 09/22/20 at 18:59; Status DC Cefepime HCl (Maxipime) 1 gm Q8HRS IVP Last administered on 09/29/20at 05:52; Start 09/22/20 at 14:00; Stop 09/29/20 at 10:32; Status DC Sennosides (Senna) 17.2 mg PRN BID PRN PO CONSTIPATION; Start 09/22/20 at 14:00 Docusate Sodium (Colace) 100 mg PRN DAILY PRN PO HARD STOOLS; Start 09/22/20 at 14:00; Stop 09/22/20 at 14:00; Status DC Ondansetron HCl (Zofran) 4 mg PRN Q6HRS PRN IVP NAUSEA/VOMITING, 1ST CHOICE; Start 09/22/20 at 14:00 Insulin Human Lispro (HumaLOG) 0-7 UNITS Q6HRS SQ Last administered on 10/25/20at 13:00; Start 09/22/20 at 18:00 Dextrose (Dextrose 50%-Water Syringe) 12.5 gm PRN Q15MIN PRN IV SEE COMMENTS Last administered on 09/22/20at 17:47; Start 09/22/20 at 14:00 Dextrose/Sodium Chloride 1,000 ml @ 50 mls/hr Q20H IV Last administered on 10/12/20at 11:04; Start 09/22/20 at 14:00; Stop 10/13/20 at 09:24; Status DC Acetaminophen (Tylenol) 650 mg PRN Q4HRS PRN PO TEMP OVER 100.4F OR MILD PAIN Last administered on 09/23/20at 00:20; Start 09/22/20 at 14:00; Stop 09/23/20 at 16:24; Status DC Enoxaparin Sodium (Lovenox 40mg Syringe) 40 mg Q24H SQ ; Start 09/22/20 at 14:00; Status UNV Pantoprazole Sodium (PROTONIX VIAL for IV PUSH) 40 mg DAILY IVP Last administered on 10/26/20at 09:15; Start 09/23/20 at 09:00 Prochlorperazine Edisylate (Compazine) 10 mg PRN Q6HRS PRN IV NAUSEA/VOMITING, 2ND CHOICE; Start 09/22/20 at 14:00 Etomidate (Amidate) 20 mg STK-MED ONCE IV ; Start 09/22/20 at 17:46; Stop 09/22/20 at 17:46; Status DC Rocuronium Victor (Zemuron) 50 mg STK-MED ONCE .ROUTE ; Start 09/22/20 at 17:46; Stop 09/22/20 at 17:47; Status DC Norepinephrine Bitartrate 8 mg/ Dextrose 258 ml @ 21.769 mls/ hr CONT PRN IV PER PROTOCOL Last administered on 09/24/20at 13:20; Start 09/22/20 at 18:15; Stop 10/13/20 at 09:24; Status DC Potassium Chloride/Water 100 ml @ 100 mls/hr Q1H IV Last administered on 09/23/20at 14:30; Start 09/23/20 at 07:00; Stop 09/23/20 at 14:59; Status DC Acetaminophen (Tylenol) 650 mg PRN Q6HRS PRN PEG MILD PAIN / TEMP > 100.3'F Last administered on 10/25/20at 17:01; Start 09/23/20 at 16:30 Warfarin Sodium (Coumadin Per Pharmacy) 1 each PRN DAILY PRN MC SEE COMMENTS Last administered on 10/01/20at 12:32; Start 09/24/20 at 12:30; Stop 10/02/20 at 05:55; Status DC Warfarin Sodium (Coumadin) 5 mg 1X WARF ONCE PO Last administered on 09/24/20at 17:42; Start 09/24/20 at 16:00; Stop 09/24/20 at 16:01; Status DC Warfarin Sodium (Coumadin - No Dose Today) 1 each 1X WARF ONCE MC ; Start 09/25/20 at 16:00; Stop 09/25/20 at 16:01; Status DC Warfarin Sodium (Coumadin) 1 mg 1X WARF ONCE PO Last administered on 09/26/20at 16:00; Start 09/26/20 at 16:00; Stop 09/26/20 at 16:01; Status DC Propofol 100 ml @ 3.174 mls/ hr CONT PRN IV PER PROTOCOL Last administered on 10/09/20at 04:43; Start 09/26/20 at 20:15; Stop 10/13/20 at 09:24; Status DC Atropine Sulfate (ATROPINE 1mg SYRINGE) 1 mg STK-MED ONCE .ROUTE ; Start 09/25/20 at 10:00; Stop 09/27/20 at 08:20; Status DC Epinephrine HCl (EPINEPHrine SYRINGE) 1 mg STK-MED ONCE .ROUTE ; Start 09/25/20 at 10:00; Stop 09/27/20 at 08:20; Status DC Warfarin Sodium (Coumadin) 2 mg 1X WARF ONCE PO Last administered on 09/27/20 17:53; Start 09/27/20 at 16:00; Stop 09/27/20 at 16:01; Status DC Aspirin (Aspirin Chewable) 81 mg DAILYWBKFT PO Last administered on 10/06/20at 11:39; Start 09/27/20 at 09:30; Stop 10/06/20 at 16:23; Status DC Clopidogrel Bisulfate (Plavix) 75 mg DAILYWBKFT PO Last administered on 10/09/20at 09:24; Start 09/27/20 at 09:30; Stop 10/09/20 at 17:03; Status DC Potassium Chloride/Water 100 ml @ 100 mls/hr Q1H IV Last administered on 09/27/20 12:45; Start 09/27/20 at 11:30; Stop 09/27/20 at 13:29; Status DC Warfarin Sodium (Coumadin) 3 mg 1X WARF ONCE PO Last administered on 09/28/20at 18:18; Start 09/28/20 at 16:00; Stop 09/28/20 at 16:01; Status DC Cefepime HCl (Maxipime) 2 gm Q8HRS IVP Last administered on 10/20/20at 05:36; Start 09/29/20 at 14:00; Stop 10/20/20 at 13:23; Status DC Warfarin Sodium (Coumadin) 3 mg 1X WARF ONCE PO Last administered on 09/29/20at 16:55; Start 09/29/20 at 16:00; Stop 09/29/20 at 16:01; Status DC Warfarin Sodium (Coumadin) 3 mg 1X WARF ONCE PO Last administered on 09/30/20at 16:00; Start 09/30/20 at 16:00; Stop 09/30/20 at 16:01; Status DC Warfarin Sodium (Coumadin) 5 mg 1X WARF ONCE PO Last administered on 10/01/20at 16:35; Start 10/01/20 at 16:00; Stop 10/01/20 at 16:01; Status DC Multi-Ingred Cream/Lotion/Oil/ Oint (Artificial Tears Eye Ointment) 1 sudheer PRN Q1HR PRN OU DRY EYE Last administered on 10/03/20at 12:24; Start 10/02/20 at 12:45 Fentanyl Citrate (Fentanyl 2ml Vial) 25 mcg PRN Q5MIN PRN IVP MILD PAIN 1-3; Start 10/05/20 at 06:00; Stop 10/06/20 at 05:59; Status DC Fentanyl Citrate (Fentanyl 2ml Vial) 50 mcg PRN Q5MIN PRN IVP MODERATE PAIN 4- 6; Start 10/05/20 at 06:00; Stop 10/06/20 at 05:59; Status DC Morphine Sulfate (Morphine Sulfate) 1 mg PRN Q10MIN PRN IVP SEVERE PAIN 7-10; Start 10/05/20 at 06:00; Stop 10/06/20 at 05:59; Status UNV Ringer's Solution 1,000 ml @ 30 mls/hr Q24H IV ; Start 10/05/20 at 06:00; Stop 10/05/20 at 17:59; Status DC Hydromorphone HCl (Dilaudid) 0.5 mg PRN Q10MIN PRN IVP SEVERE PAIN 7-10, 2nd CHOICE; Start 10/05/20 at 06:00; Stop 10/06/20 at 05:59; Status UNV Prochlorperazine Edisylate (Compazine) 5 mg PACU PRN PRN IVP NAUSEA, MRX1; Start 10/05/20 at 06:00; Stop 10/06/20 at 05:59; Status DC Bupivacaine HCl/ Epinephrine Bitart (Sensorcain-Epi 0.5%-1:884286 Mpf) 30 ml STK-MED ONCE .ROUTE Last administered on 10/05/20at 10:09; Start 10/05/20 at 07:12; Stop 10/05/20 at 07:12; Status DC Cellulose (Surgicel Fibrillar 1x2) 1 each STK-MED ONCE .ROUTE Last administered on 10/05/20at 10:30; Start 10/05/20 at 07:12; Stop 10/05/20 at 07:12; Status DC Rocuronium Victor (Zemuron) 50 mg STK-MED ONCE .ROUTE ; Start 10/05/20 at 09:06; Stop 10/05/20 at 09:06; Status DC Rocuronium Victor (Zemuron) 50 mg STK-MED ONCE .ROUTE ; Start 10/05/20 at 10:10; Stop 10/05/20 at 10:10; Status DC Warfarin Sodium (Coumadin Per Pharmacy) 1 each PRN DAILY PRN MC SEE COMMENTS Last administered on 10/06/20at 09:32; Start 10/05/20 at 14:00; Stop 10/06/20 at 16:23; Status DC Argatroban (Argatroban Per Pharmacy) 1 each PRN DAILY PRN MC SEE COMMENTS Last administered on 10/13/20at 16:34; Start 10/05/20 at 14:00; Stop 10/24/20 at 09:37; Status DC Argatroban 50 mg/ Sodium Chloride 50 ml @ 6.48 mls/hr CONT PRN IV ADJUST PER PTT; Start 10/05/20 at 14:00; Stop 10/05/20 at 13:59; Status DC Argatroban 50 mg/ Sodium Chloride 50 ml @ 6.48 mls/hr CONT PRN IV ADJUST PER PTT; Start 10/06/20 at 00:00; Status Cancel Warfarin Sodium (Coumadin) 5 mg 1X WARF ONCE PO Last administered on 10/05/20at 21:23; Start 10/05/20 at 16:00; Stop 10/05/20 at 16:01; Status DC Argatroban 50 mg/ Sodium Chloride 50 ml @ 0 mls/hr CONT PRN IV PER PROTOCOL Last administered on 10/19/20at 22:13; Start 10/06/20 at 09:00; Stop 10/20/20 at 13:02; Status DC Warfarin Sodium (Coumadin) 5 mg 1X WARF ONCE PO ; Start 10/06/20 at 16:00; Stop 10/06/20 at 16:01; Status Cancel Amiodarone HCl (Cordarone) 400 mg DAILY PO Last administered on 10/26/20at 09:14; Start 10/06/20 at 10:00 Atorvastatin Calcium (Lipitor) 40 mg QHS PO Last administered on 10/26/20at 21:49; Start 10/06/20 at 21:00 Metoprolol Tartrate (Lopressor) 25 mg BID PO Last administered on 10/26/20at 21:50; Start 10/06/20 at 10:00 Furosemide (Lasix) 40 mg DAILY IVP Last administered on 10/26/20at 09:15; Start 10/06/20 at 10:00 Potassium Bicarbonate (Potassium Effervescent Tablet) 20 meq DAILY PEG Last administered on 10/26/20at 09:13; Start 10/06/20 at 10:00 Tirofiban/Sodium Chloride 100 ml @ 0 mls/hr CONT PRN IV PER PROTOCOL Last administered on 10/11/20at 14:11; Start 10/09/20 at 17:00; Stop 10/11/20 at 20:21; Status DC Albumin Human 100 ml @ 100 mls/hr 1X ONCE IV Last administered on 10/12/20at 15:22; Start 10/12/20 at 14:00; Stop 10/12/20 at 14:59; Status DC Furosemide (Lasix) 40 mg 1X ONCE IVP Last administered on 10/12/20at 15:22; Start 10/12/20 at 15:00; Stop 10/12/20 at 15:01; Status DC Aspirin (Aspirin Chewable) 81 mg 1X ONCE PO Last administered on 10/13/20at 12:25; Start 10/13/20 at 10:30; Stop 10/13/20 at 10:31; Status DC Aspirin (Aspirin Chewable) 81 mg DAILYWBKFT PO Last administered on 10/26/20at 09:13; Start 10/14/20 at 08:00 Fentanyl Citrate (Fentanyl 2ml Vial) 25 mcg PRN Q5MIN PRN IVP MILD PAIN 1-3; Start 10/18/20 at 06:00; Stop 10/18/20 at 20:00; Status DC Ringer's Solution 1,000 ml @ 30 mls/hr Q24H IV Last administered on 10/18/20at 06:00; Start 10/18/20 at 06:00; Stop 10/18/20 at 17:59; Status DC Bupivacaine HCl/ Epinephrine Bitart (Sensorcain-Epi 0.5% Kit) 30 ml STK-MED ONCE .ROUTE Last administered on 10/18/20at 11:04; Start 10/18/20 at 10:23; Stop 10/18/20 at 10:24; Status DC Rocuronium Victor (Zemuron) 50 mg STK-MED ONCE .ROUTE ; Start 10/18/20 at 10:48; Stop 10/18/20 at 10:48; Status DC Sevoflurane (Ultane) 60 ml STK-MED ONCE IH ; Start 10/18/20 at 11:13; Stop 10/18/20 at 11:13; Status DC Fentanyl Citrate (Fentanyl 2ml Vial) 100 mcg STK-MED ONCE .ROUTE ; Start 10/18/20 at 11:14; Stop 10/18/20 at 11:14; Status DC Phenylephrine HCl (PHENYLEPHRINE in 0.9% NACL PF) 1 mg STK-MED ONCE IV ; Start 10/18/20 at 11:55; Stop 10/18/20 at 11:56; Status DC Argatroban (Argatroban Per Pharmacy) 1 each PRN DAILY PRN MC SEE COMMENTS; Start 10/19/20 at 10:30; Status UNV Clopidogrel Bisulfate (Plavix) 75 mg DAILYWBKFT PO Last administered on 10/26/20at 09:13; Start 10/19/20 at 14:00 Warfarin Sodium (Coumadin Per Pharmacy) 1 each PRN DAILY PRN MC SEE COMMENTS Last administered on 10/26/20at 13:41; Start 10/19/20 at 13:15 Warfarin Sodium (Coumadin) 5 mg 1X WARF ONCE PO Last administered on 10/19/20at 15:24; Start 10/19/20 at 16:00; Stop 10/19/20 at 16:01; Status DC Warfarin Sodium (Coumadin) 5 mg 1X WARF ONCE PO Last administered on 10/20/20at 19:10; Start 10/20/20 at 16:00; Stop 10/20/20 at 16:01; Status DC Argatroban 50 mg/ Sodium Chloride 50 ml @ 0 mls/hr CONT PRN IV PER PROTOCOL Last administered on 10/24/20at 01:10; Start 10/20/20 at 13:15; Stop 10/24/20 at 09:37; Status DC Warfarin Sodium (Coumadin) 6 mg 1X WARF ONCE PO Last administered on 10/21/20at 17:56; Start 10/21/20 at 16:00; Stop 10/21/20 at 16:01; Status DC Warfarin Sodium (Coumadin) 7.5 mg 1X WARF ONCE PO Last administered on 10/22/20at 17:45; Start 10/22/20 at 16:00; Stop 10/22/20 at 16:01; Status DC Warfarin Sodium (Coumadin) 6 mg 1X WARF ONCE PO Last administered on 10/23/20at 17:05; Start 10/23/20 at 16:00; Stop 10/23/20 at 16:01; Status DC Warfarin Sodium (Coumadin) 4 mg 1X WARF ONCE PO ; Start 10/24/20 at 16:00; Stop 10/24/20 at 10:45; Status DC Warfarin Sodium (Coumadin) 4 mg 1X WARF ONCE PO Last administered on 10/24/20at 17:52; Start 10/24/20 at 16:00; Stop 10/24/20 at 16:01; Status DC Warfarin Sodium (Coumadin) 5 mg 1X WARF ONCE PO Last administered on 10/25/20at 16:51; Start 10/25/20 at 16:00; Stop 10/25/20 at 16:01; Status DC Warfarin Sodium (Coumadin) 6 mg 1X WARF ONCE PO Last administered on 10/26/20at 17:24; Start 10/26/20 at 16:00; Stop 10/26/20 at 16:01; Status DC Alteplase, Recombinant (Cathflo For Central Catheter Clearance) 1 mg 1X ONCE INT CAT Last administered on 10/26/20at 21:50; Start 10/26/20 at 18:30; Stop 10/26/20 at 18:31; Status DC Active Scripts Active Amiodarone Hcl 200 Mg Tablet 400 Mg PO DAILY 90 Days [Warfarin Per Pharmacy] 1 EACH Each 1 Each MC PRN DAILY PRN 30 Days Clopidogrel (Clopidogrel Bisulfate) 75 Mg Tablet 75 Mg PO DAILYWBKFT 90 Days Humalog (Insulin Lispro) 100 Unit/1 Ml Insuln.pen 0 Units SQ TIDWMEALS 30 Days Duoneb 0.5-3(2.5) Mg/3 Ml (Albuterol/Ipratropium) 3 Ml Ampul.neb 3 Ml NEB RTQID 30 Days Aspirin 325 Mg Tablet 325 Mg PO DAILYWBKFT 30 Days Metoprolol Tartrate 25 Mg Tablet 25 Mg PO BID 30 Days Montelukast Sodium Tablet (Montelukast Sodium) 10 Mg Tablet 10 Mg PO QHS Gabapentin 600 Mg Tablet 600 Mg PO BID 30 Days Reported Glimepiride 4 Mg Tablet 1 Tab PO DAILY Furosemide 40 Mg Tablet 1 Tab PO BID Symbicort 160-4.5 Mcg Inhaler (Budesonide/Formoterol Fumarate) 10.2 Gm Hfa.aer.ad 1 Puff INH DAILY Losartan-Hctz 100-12.5 Mg Tab (Losartan/Hydrochlorothiazide) 1 Each Tablet 1 Tab PO DAILY Nitrofurantoin [place]-Mcr 100 Mg (Nitrofurantoin Monohyd/M-Cryst) 100 Mg Capsule 1 Cap PO BID Betamethasone Valerate 60 Ml Lotion 1 TP QHS Atorvastatin Calcium 40 Mg Tablet 1 Tab PO DAILY Diltiazem 24Hr Cd (Diltiazem HCl) 240 Mg Cap.er.24h 1 Cap PO DAILY Nystop (Nystatin) 60 Gm Powder 1 Sudheer TP BID Pepcid (Famotidine) 20 Mg Tablet 20 Mg PO BID Vitals/I & O Vital Sign - Last 24 Hours 10/26/20 10/26/20 10/26/20 10/26/20 07:42 08:00 08:00 09:14 Pulse 96 B/P (MAP) 125/83 Pulse Ox 100 O2 Delivery Ventilator Trach Collar O2 Flow Rate 7.0 8.0 10/26/20 10/26/20 10/26/20 10/26/20 09:14 09:33 11:08 12:00 Temp 98.7 98.7 Pulse 96 81 Resp 24 B/P (MAP) 125/83 110/72 (85) Pulse Ox 99 100 O2 Delivery Tracheal Collar Tracheal Collar O2 Flow Rate 8.0 10.0 8.0 10/26/20 10/26/20 10/26/20 10/26/20 14:43 16:00 19:00 19:50 Temp 99.9 99.1 99.9 99.1 Pulse 87 75 Resp 24 20 B/P (MAP) 114/67 (83) 120/69 (86) Pulse Ox 98 99 O2 Delivery Tracheal Collar Tracheal Collar Trach Collar O2 Flow Rate 10.0 8.0 10.0 7.0 10/26/20 10/26/20 10/26/20 10/26/20 21:09 21:45 21:50 22:55 Temp 99.3 99.3 Pulse 75 77 Resp 20 B/P (MAP) 120/69 126/72 (90) Pulse Ox 99 99 100 O2 Delivery Tracheal Collar Ventilator Tracheal Collar O2 Flow Rate 8.0 10.0 10/26/20 10/26/20 10/27/20 10/27/20 23:50 23:59 03:00 03:30 Temp 99.5 99.5 Pulse 82 Resp 14 B/P (MAP) 108/66 (80) Pulse Ox 99 100 99 O2 Delivery Ventilator BiPAP/CPAP Ventilator O2 Flow Rate 10.0 10/27/20 10/27/20 04:05 05:10 Pulse Ox 100 O2 Delivery Ventilator O2 Flow Rate 10.0 Intake and Output 10/26/20 10/26/20 10/27/20 15:00 23:00 07:00 Intake Total 913 ml 1334 ml Output Total 900 ml 450 ml Balance 13 ml 884 ml Justicifation of Admission Dx: Justifications for Admission: Justification of Admission Dx: Yes CHF: Cardiac Arrhythmias KLAUDIA HAY MD Oct 27, 2020 07:28
--- NOTE | 2020-10-27 08:33 | NUR ---
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 Target range for this patient is: 2 -3 P: Warfarin dose: 6 mg Today at 1600 Bridge Therapy: Argatroban Therapeutic Next INR due 10/28/20. Pharmacy anticoagulation service will continue to follow. PEDRO LEE RP, 10/27/20 0853
[2020-10-27] MEDS: FUROSEMIDE 40 MG/4 ML VIAL. IVP SCH (09:49)
[2020-10-27] MEDS: PANTOPRAZOLE IV PUSH 40 MG VIAL. IVP SCH (09:49)
[2020-10-27] MEDS: POTASSIUM BICARB 20 MEQ EFFERVESCENT TABLET. PEG SCH (09:50)
[2020-10-27] MEDS: ASPIRIN CHEWABLE 81 MG TABLET. PO SCH (09:50)
[2020-10-27] MEDS: CLOPIDOGREL BISULFATE 75 MG TABLET PO SCH (09:50)
[2020-10-27] MEDS: METOPROLOL TART IMMED RELEASE 25 MG TABLET. PO SCH ×2 (09:50→21:08)
[2020-10-27] MEDS: AMIODARONE HCL 200 MG TABLET. PO SCH (09:50)
[2020-10-27 11:00] VITALS: BP 140/86
--- NOTE | 2020-10-27 11:36 | PDOC ---
PULMONARY PROGRESS NOTES DATE: 10/27/20 TIME: 11:35 Subjective Patient remains on trach shield 24 hours No overnight events Vitals Vital Signs Date Time Temp Pulse Resp B/P (MAP) Pulse Ox O2 Delivery O2 Flow Rate FiO2 10/27/20 09:50 93 104/63 10/27/20 08:00 8.0 10/27/20 08:00 Trach Collar 10/27/20 07:00 98.5 15 99 98.5 General: No acute distress HEENT: Other (nc at perrl nose clear orally intubated neck no lad no thyromegaly) Lungs: Other (Tracheostomy) Cardiovascular: S1, S2 Abdomen: Soft, Non-tender, Other (Obese) Extremities: Other (1+ edema) Skin: Warm Labs Laboratory Tests Test 10/25/20 11:42 10/25/20 17:26 10/26/20 06:00 10/26/20 11:44 Glucose (Fingerstick) 156 mg/dL (70-99) 142 mg/dL (70-99) 141 mg/dL (70-99) 150 mg/dL (70-99) Prothrombin Time 23.2 SEC (11.7-14.0) Prothromb Time International Ratio 2.1 (0.8-1.1) Test 10/26/20 16:40 10/26/20 23:43 10/27/20 05:15 10/27/20 05:29 Glucose (Fingerstick) 151 mg/dL (70-99) 156 mg/dL (70-99) 154 mg/dL (70-99) Prothrombin Time 25.1 SEC (11.7-14.0) Prothromb Time International Ratio 2.3 (0.8-1.1) Laboratory Tests Test 10/26/20 11:44 10/26/20 16:40 10/26/20 23:43 10/27/20 05:15 Glucose (Fingerstick) 150 mg/dL (70-99) 151 mg/dL (70-99) 156 mg/dL (70-99) Prothrombin Time 25.1 SEC (11.7-14.0) Prothromb Time International Ratio 2.3 (0.8-1.1) Test 10/27/20 05:29 Glucose (Fingerstick) 154 mg/dL (70-99) Medications Active Scripts Medications Dose Route/Sig Max Daily Dose Days Date Category Amiodarone Hcl 200 Mg Tablet 400 Mg PO DAILY 09/18/20 Rx [Warfarin Per Pharmacy] 1 EACH Each 1 Each MC PRN DAILY PRN 30 09/18/20 Rx Clopidogrel (Clopidogrel Bisulfate) 75 Mg Tablet 75 Mg PO DAILYWBKFT 90 09/18/20 Rx Glimepiride 4 Mg Tablet 1 Tab PO DAILY 09/13/20 Reported Furosemide 40 Mg Tablet 1 Tab PO BID 09/13/20 Reported Symbicort 160-4.5 Mcg Inhaler (Budesonide/Formoterol Fumarate) 10.2 Gm Hfa.aer.ad 1 Puff INH DAILY 09/13/20 Reported Losartan-Hctz 100-12.5 Mg Tab (Losartan/Hydrochlorothiazide) 1 Each Tablet 1 Tab PO DAILY 09/13/20 Reported Nitrofurantoin [place]-Mcr 100 Mg (Nitrofurantoin Monohyd/M-Cryst) 100 Mg Capsule 1 Cap PO BID 09/13/20 Reported Betamethasone Valerate 60 Ml Lotion 1 TP QHS 09/13/20 Reported Atorvastatin Calcium 40 Mg Tablet 1 Tab PO DAILY 09/13/20 Reported Diltiazem 24Hr Cd (Diltiazem HCl) 240 Mg Cap.er.24h 1 Cap PO DAILY 09/13/20 Reported Nystop (Nystatin) 60 Gm Powder 1 Sudheer TP BID 09/13/20 Reported Humalog (Insulin Lispro) 100 Unit/1 Ml Insuln.pen 0 Units SQ TIDWMEALS 30 08/06/18 Rx Duoneb 0.5-3(2.5) Mg/3 Ml (Albuterol/Ipratropium) 3 Ml Ampul.neb 3 Ml NEB RTQID 08/06/18 Rx Aspirin 325 Mg Tablet 325 Mg PO DAILYWBKFT 30 07/22/17 Rx Metoprolol Tartrate 25 Mg Tablet 25 Mg PO BID 30 07/22/17 Rx Montelukast Sodium Tablet (Montelukast Sodium) 10 Mg Tablet 10 Mg PO QHS 07/22/17 Rx Gabapentin 600 Mg Tablet 600 Mg PO BID 30 07/22/17 Rx Pepcid (Famotidine) 20 Mg Tablet 20 Mg PO BID 05/17/13 Reported Impression . 1. Acute on chronic respiratory failure secondary to multifactorial etiologies including hypoglycemic encephalopathy. No evidence of new stroke. 2. Possible sepsis--- on antibiotics 3. Hypoglycemia./ encephalopathy 4. The patient with prior history of cerebrovascular accident with left-sided weakness. 5. Underlying chronic obstructive pulmonary disease. 6. Morbid obesity. 7. Peripheral vascular disease. 8. Abnormal CT chest with bibasilar atelectasis. No significant mucus plugging. Tiny pleural effusion seen. Plan . Updated 10/27 Patient is doing well on trach shield on a 24-hour basis. We will continue trach shield Status post gastrostomy tube Long-term prognosis poor Discussed with social service, discharge planning in place once court appointed DPOA available Discussed with RN Pulmonary status is stable. Updated 10/25 Patient is doing well on trach shield on a 24-hour basis. RT blood gases shows no worsening hypercapnia while on trach shield. No apneic breathing reported. I discussed with respiratory therapist. We will continue continue trach shield Status post gastrostomy tube Long-term prognosis poor Discussed with social service, discharge planning in place once court appointed DPOA available Discussed with RN Pulmonary status is stable. We will see him as needed Updated 10/24 Patient is doing well on trach shield on a 24-hour basis. RT blood gases shows no worsening hypercapnia while on trach shield. No apneic breathing reported. I discussed with respiratory therapist. We will continue continue trach shield Status post gastrostomy tube Long-term prognosis poor Discussed with social service, discharge planning in place once court appointed DPOA available Discussed with RN Updated 10/23 Patient did well on trach shield most of the day. Patient was rested on AVAPS last night. RT blood gases shows no worsening hypercapnia while on trach shield. No apneic breathing reported. I discussed with respiratory therapist. We will continue continue trach shield for 24 hours as tolerated. Status post gastrostomy tube Long-term prognosis poor Discussed with social service, discharge planning in place once court appointed DPOA available Discussed with RN Updated 10/22 Patient did well on trach shield most of the day. Patient was rested on AVAPS last night. RT blood gases shows no worsening hypercapnia while on trach shield. No apneic breathing reported. I discussed with respiratory therapist. We will continue continue trach shield for 24 hours as tolerated. Status post gastrostomy tube Long-term prognosis poor Discussed with social service, discharge planning in place once court appointed DPOA available Discussed with RN Updated 10/21 Status post gastrostomy tube Continue AVAPS We will ask respiratory to consider trach shield trial to see if he has any apneic breathing. Not sure he was tried yesterday. If he does tolerate trach shield will check ABGs in 2 hours Long-term prognosis poor Discussed with social service, discharge planning in place once court appointed DPOA available Discussed with RN Updated 10/20 Status post gastrostomy tube Continue AVAPS We will ask respiratory to consider trach shield trial to see if he has any apneic breathing. Long-term prognosis poor Discussed with social service, discharge planning in place once court appointed DPOA available Discussed with RN Updated 10 19 Status post gastrostomy tube Continue AVAPS Long-term prognosis poor Discussed with social service, discharge planning in place updated 10/18 Nephrostomy tube today Spoke with Dr. Bobo Continue pressure support as tolerated updated 10/17 Continue pressure support during the day The a.m. for gastrostomy tube Discussed with RN updated 10/16 Continue pressure support during the day Continues current support Long-term prognosis poor CLINTON PALAFOX MD Oct 27, 2020 11:36
--- NOTE | 2020-10-27 12:25 | NUR ---
SS following up with discharge planning. SS reviewed pt chart and discussed with pt RN. Pt is currently on trach shield at 8 liters and BIPAP PRN at 35%. G tube in place. COVID19 negative. Unresponsive. Pt was declined at [facility] due to being too medically complex for group home unit. LTACH facilities requesting that pt have DPOA or Guardian prior to accepting for admission. SS contacted [facility] and they reported that they would need DPOA or Guardianship in order to accept as well. Pt has no family or kinship to accept responsibility. Case supervisor pipe finishing aware of need for DPOA or Guardianship. SS will continue to follow for discharge planning.
[2020-10-27 15:00] VITALS: BP 131/68
[2020-10-27] MEDS ORDERED: WARFARIN 3 MG TABLET. PO ONE (16:00)
[2020-10-27 19:20] VITALS: BP 140/81
--- NOTE | 2020-10-27 19:20 | NUR ---
Pt resting comfortable assessment completed vss will resume care and continue to monitor pt.
[2020-10-27] MEDS: ATORVASTATIN CALCIUM 40 MG TABLET. PO SCH (21:08)
[2020-10-27 22:57] VITALS: BP 124/77
[2020-10-28 02:51] VITALS: BP 102/65
[2020-10-28] MEDS: INSULIN LISPRO 300 UNITS/3 ML VIAL. SQ SCH ×4 (06:15→23:38)
[2020-10-28 06:31] LABS: BASO % 1 % (0-3); EOS # 0.5 x10^3/uL (0.0-0.7); EOS % 6 % (0-3); HEMATOCRIT 27.9 % (39.0-53.0); HEMOGLOBIN 9.2 g/dL (13.0-17.5); LYMPH # 2.1 x10^3/uL (1.0-4.8); LYMPH % 29 % (24-48); MEAN CORPUSCULAR HEMOGLOBIN 31 pg (25-35); MEAN CORPUSCULAR HGB CONC 33 g/dL (31-37); MEAN CORPUSCULAR VOLUME 94 fL (79-100); MONO # 0.5 x10^3/uL (0.0-1.1); MONO % 7 % (0-9); NEUT # 4.1 x10^3/uL (1.8-7.7); NEUT % 57 % (31-73); PLATELET COUNT 266 x10^3/uL (140-400); RED BLOOD COUNT 2.98 x10^6/uL (4.30-5.70); RED CELL DISTRIBUTION WIDTH 15.6 % (11.5-14.5); WHITE BLOOD COUNT 7.2 x10^3/uL (4.0-11.0)
[2020-10-28 06:50] LABS: ALBUMIN 2.3 g/dL (3.4-5.0); ALBUMIN/GLOBULIN RATIO 0.5 (1.0-1.7); CALCIUM 8.8 mg/dL (8.5-10.1); CREATININE 0.9 mg/dL (0.7-1.3); GFR 82.9; TOTAL BILIRUBIN 0.7 mg/dL (0.2-1.0); TOTAL PROTEIN 6.6 g/dL (6.4-8.2)
[2020-10-28 06:55] LABS: PROTHROMBIN TIME PATIENT 28.8 SEC (11.7-14.0)
[2020-10-28 07:52] VITALS: BP 111/58
[2020-10-28] MEDS: PANTOPRAZOLE IV PUSH 40 MG VIAL. IVP SCH (09:16)
[2020-10-28] MEDS: FUROSEMIDE 40 MG/4 ML VIAL. IVP SCH (09:16)
[2020-10-28] MEDS: ASPIRIN CHEWABLE 81 MG TABLET. PO SCH (09:18)
[2020-10-28] MEDS: METOPROLOL TART IMMED RELEASE 25 MG TABLET. PO SCH ×2 (09:18→21:14)
[2020-10-28] MEDS: AMIODARONE HCL 200 MG TABLET. PO SCH (09:18)
[2020-10-28] MEDS: POTASSIUM BICARB 20 MEQ EFFERVESCENT TABLET. PEG SCH (09:19)
[2020-10-28] MEDS: CLOPIDOGREL BISULFATE 75 MG TABLET PO SCH (09:19)
--- NOTE | 2020-10-28 10:23 | PDOC ---
PROGRESS NOTES Date of Service: DATE: 10/28/20 TIME: 10:22 Chief Complaint Chief Complaint impression Acute anemia Acute metabolic, infectious encephalopathy Acute respiratory failure Healthcare associated pneumonia Acute hypoglycemia Hypokalemia Elevated troponins Severe protein malnutrition Morbid obesity AAA, 4 cm, infrarenal History of diabetes mellitus type 2 History of dyslipidemia history of hypertension History of recent STEMI History of CAD History of peripheral artery disease History of JEANNE History of CVA History of paroxysmal atrial fibrillation Ischemic cardiomyopathy History of Present Illness History of Present Illness Mr Andrews is a 70-year-old male with a recent prolonged hospitalization for STEMI and respiratory failure for which she was treated with arterial thrombolysis for a right leg popliteal artery aneurysm and also had left heart cath with placement of a stent in the LAD and RCA comes in today after he was found obtunded at his correction facility. Apparently according to the nursing facility patient was in his usual state of health and he was conversational but then became altered. His blood glucose was found to be in the 30s. Glucose tabs and glucagon was given in route and his GCS reported at 6. Upon arrival patient's mental status did not improve and he was eventually intubated for airway protection. Of note EMS was bagging the patient through the nasal access. In the ED, patient was placed on a vent and pulmonology was consulted. Patient was also taken to the CT scanner for sanders scanning. Patient was started to wake up on the vent and sedation was ordered. 09/23: Patient examined at bedside. Intubated. Not on any sedation but unresponsive. Neurology consult in place. 09/24: Patient seen and examined at bedside. Remains intubated he is off sedation but still remains unresponsive. Planning for MRI brain in the morning. Further plan to be determined by MRI. 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 09/25: Afebrile, currently breathing on ventilator with FiO2 50%, PEEP 5. Had CODE BLUE in ICU this morning; received 2 rounds of CPR, epinephrine, and atropine with ROSC. MRI brain negative. Made DNR, and after discussion with Dr. Rubalcava he agrees. 09/26:: Afebrile. Still on vent, with FiO2 45%, PEEP 5. After discussion with Dr. Rubalcava yesterday, patient was made DNR. In the ED is likely a poor candidate for weaning trials may need trach in near future if no significant improvement. 09/27:: Afebrile. On vent with FiO2 40%, PEEP 5. Potassium 2.8 today, will replace. Warfarin has been resumed. Discussed with pharmacy, will resume aspirin and Plavix. May need tracheostomy by the end of the week if no improvement in mental status. 09/28:: Afebrile. On ventilator with FiO2 40%, PEEP 5. Warfarin has been res umed; INR 1.3 today. Some morning labs still pending; hemoglobin yesterday 7.3, will continue to monitor. Continue IV cefepime and supportive care. 09/29: Afebrile. Breathing on vent with FiO2 40%, PEEP 5. INR 1.2 today; pharmacy to help with warfarin dosing. White count within normal range, renal function stable. Spoke with pharmacy about cefepime 1 g every 8 hours dosing; this has been changed to cefepime 2 g every 8 hours. 09/30: Afebrile. Currently breathing on vent with FiO2 40%, PEEP 5. Continue antibiotics, cefepime 2 g every 8 hours. INR 1.4; continue warfarin dosing per pharmacy. Possible tracheostomy at some point. Critical care time 30 minutes reviewing charts, labs, examination, discussion with RN. 10/01: T-max 100.3 F. On ventilator with FiO2 40%, PEEP 5. Continue antibiotics, cefepime 2 g every 8 hours. INR 1.4, still subtherapeutic; continue warfarin dosing per pharmacy. Possible tracheostomy at some point. 10/02: No acute events overnight. Patient saturating 99% on vent settings of 1 0/450/40/5. Patient will likely need a trach and PEG at some point. We will hold warfarin and start 2 units PRBC transfusion. Patient's chart, labs, images were reviewed and discussed with RN 10/03: No acute events overnight. Patient sat 100% on minimal vent settings. No sedation at this point and patient is opening his eyes spontaneously. Not much response or spontaneous movements. Surgery has been consulted for tracheostomy. Patient will also likely need a PEG tube. 10/04: No acute events overnight. Patient saturating 90% on minimal vent settings. T-max 100.4 overnight. Plan for trach tomorrow with surgery. Patient's chart, labs, images were reviewed and discussed with RN 10/05: No acute events overnight. Patient saturating 99% on minimal vent settings. Plan for tracheostomy today. Consent is provided by authorization by 2 physicians due to patient having no close relatives or DPOA. Will resume heparin and warfarin bridging tomorrow after tracheostomy 10/07: No acute events overnight. Patient seen and examined bedside. On trach vent. Saturating 99%. Pending GI evaluation for possible PEG placement after discussing with cardiology whether to continue with Plavix. Possibly place PEG if patient is only on aspirin and stopping argatroban. 10/08: No acute events overnight. Patient continues to be on trach mechanical vent. Saturating 100%. Pending decision from GI whether to proceed with PEG placement depending on the type of anticoagulation patient will be on. 10/09: No overnight events. On trach with vent support 40% FiO2 PEEP of 5. Currently argatroban and propofol for minimal sedation. When sedation is weaned he has no meaningful movements but has pulled at his tracheostomy site. Unable to hold plavix due to recently placed stents. 10/10: Afebrile today. On trach with vent support 40% FiO2 PEEP of 5. Continue argatroban and changed to Aggrastat in anticipation of surgical consultation for potential laparoscopic PEG placement. INR 1.6. Hb greater than 9 no significant neurologic recovery today. 10/11: Afebrile. On trach with vent support 40% FiO2 PEEP of 5. INR 1.8. Not making meaningful eye contact. Labs otherwise stable. 10/12: Afebrile. Trach with vent support 40% FiO2 PEEP five O2 saturations 92%. INR 1.8, mag 1.8, Hb 8.4. Not following commands. Tentative plans for surgical PEG next week. 10/13: Afebrile. Trach with vent support 40% FiO2 PEEP 5. Eyes open, not tracking or following commands. Holding Plavix. On argatroban. 10/14: Afebrile. Trach with vent support 40% FiO2 PEEP of 5. Will open eyes intermittently not necessarily to voice. Good urine output. Labs stable. 10/15: Afebrile overnight. Trach with vent AC 40% fio2 PEEP 5. Had a very large bowel movement. Still not tracking. Hb 9, INR 1.7, glucose 144. Tentative plan for PEG 10/18/2020 CC time 30 minutes 9/6/21: Patient seen and examined in the ICU. He was resting and still on vent via trach. Has NG running via Dobhoff, feeding at 40cc/hr. AC/10/450/40% plus 5 PEEP. Discussed with RN. Chart reviewed. 10/17/20: Patient was seen and examined in the ICU today. Still on vent via trach at AC/10/450/40 plus 5 PEEP. While examined, patient was at 100% O2 saturation. Has SCDs on for DVT prophylaxis. Stauffer catheter in place. On IV argatroban. R subclavian triple lumen in place. Dobhoff running at 40cc/hr. Discussed with RN. Chart reviewed. 10/18/20: Patient seen and examined in ICU. His eyes are open. On vent via trach with settings that were recently changed to spontaneous respirations with FiO2 of 40 and 5 PEEP. Trach is clean and dry. Currently, oxygen saturation is at 100%. Stauffer to bedside and rectal bag in place. Discussed with RN. Chart revi ewed. 10/19/20: Patient was seen and examined in the ICU today. His eyes were open and he was resting. On BiPAP via trach AVAPS/10/450/40 plus 5 PEEP. Trach is clean and dry. Has SCDs for DVT prophylaxis. Patient has rectal bag, Stauffer to bedside, and NG tube in place. Discussed with RN. Chart reviewed. 10/20/20 No acute events overnight. Patient seen and examined bedside. Transferred from the ICU. Continues to be nonverbal and not following much commands. Opens eyes to voice. Currently on BiPAP via trach on AVAPS setting 10/450/40 PEEP of 5. Trach site is clear. No signs of infections. Patient's chart, labs, images were reviewed and discussed with RN 10/21/2020 No acute events overnight. Patient seen and examined bedside. Afebrile. Cont inues to be nonverbal but opens eyes to voice. Currently on BiPAP. Patient's chart, labs, images were reviewed and discussed with RN. 10/22/2020 No acute events overnight. Patient seen examined bedside. Continue with argatroban until warfarin goal INR of 4 and maintenance goal of 2-3. Please see vice president research note. Pending appointing a legal guardian. Patient's chart, labs, images were reviewed and discussed with RN 10/23/2020 laparoscopic gastrostomy tube placement (specifically 24 F) Oct discharge planning in place once court appointed DPOA available Acute anemia Acute metabolic, infectious encephalopathy Acute respiratory failure Healthcare associated pneumonia Acute hypoglycemia Hypokalemia Elevated troponins Severe protein malnutrition Morbid obesity AAA, 4 cm, infrarenal History of diabetes mellitus type 2 History of dyslipidemia history of hypertension Patient seen examined bedside. argatroban until warfarin goal INR of 4 and maintenance goal of 2-3. Pending appointing a legal guardian. Patient's chart, labs, images were reviewed and discussed with KARY Cardenas Enteric tube with metallic tip in the left upper quadrant likely in the stomach. 10/24/2020 doing well on trach shield on a 24-hour basis./ blood gases shows no worsening hypercapnia while on trach shield. No apneic breathing reported. laparoscopic gastrostomy tube placement (specifically 24 F) Oct discharge planning in place once court appointed DPOA available Acute anemia Acute metabolic, infectious encephalopathy Acute respiratory failure Healthcare associated pneumonia Acute hypoglycemia Hypokalemia Elevated troponins Severe protein malnutrition Morbid obesity AAA, 4 cm, infrarenal History of diabetes mellitus type 2 History of dyslipidemia history of hypertension Patient seen examined bedside. argatroban until warfarin goal INR of 4 and maintenance goal of 2-3. Pending appointing a legal guardian. Patient's chart, labs, images were reviewed and discussed with KARY Cardenas Enteric tube with metallic tip in the left upper quadrant likely in the stomach. Home on plavix and warfarin D/C INITIAL PLAN TO [facility] PENDING/ discharge planning in place once court appointed DPOA available D/W RN 10/25/2020 doing well on trach shield on a 24-hour basis./ blood gases shows no worsening hypercapnia while on trach shield. No apneic breathing reported. laparoscopic gastrostomy tube placement (specifically 24 F) Oct discharge planning in place once court appointed DPOA available Acute anemia Acute metabolic, infectious encephalopathy Acute respiratory failure Healthcare associated pneumonia Acute hypoglycemia Hypokalemia Elevated troponins Severe protein malnutrition Morbid obesity AAA, 4 cm, infrarenal History of diabetes mellitus type 2 History of dyslipidemia history of hypertension Patient seen examined bedside. argatroban until warfarin goal INR of 4 and maintenance goal of 2-3. Pending appointing a legal guardian. Patient's chart, labs, images were reviewed and discussed with KARY Cardenas Enteric tube with metallic tip in the left upper quadrant likely in the stomach. Home on plavix and warfarin D/C INITIAL PLAN TO [facility] PENDING/ discharge planning in place once court appointed DPOA available D/W RN 10/26/2020 HGB 9.4 doing well on trach shield on a 24-hour basis./ blood gases shows no worsening hypercapnia while on trach shield. No apneic breathing reported. laparoscopic gastrostomy tube placement (specifically 24 F) Oct discharge planning in place once court appointed DPOA available Acute anemia Acute metabolic, infectious encephalopathy Acute respiratory failure Healthcare associated pneumonia Acute hypoglycemia Hypokalemia Elevated troponins Severe protein malnutrition Morbid obesity AAA, 4 cm, infrarenal History of diabetes mellitus type 2 History of dyslipidemia history of hypertension Patient seen examined bedside. argatroban until warfarin goal INR of 4 and maintenance goal of 2-3. Pending appointing a legal guardian. Patient's chart, labs, images were reviewed and discussed with KARY Cardenas Enteric tube with metallic tip in the left upper quadrant likely in the stomach. Home on plavix and warfarin D/C INITIAL PLAN TO [facility] PEND[facility]/ discharge planning in place once court appointed DPOA available D/W RN 10/27/2020 HGB 9.4 doing well on trach shield on a 24-hour basis./ blood gases shows no worsening hypercapnia while on trach shield. No apneic breathing reported. laparoscopic gastrostomy tube placement (specifically 24 F) Oct discharge planning in place once court appointed DPOA available Acute anemia Acute metabolic, infectious encephalopathy Acute respiratory failure Healthcare associated pneumonia Acute hypoglycemia Hypokalemia Elevated troponins Severe protein malnutrition Morbid obesity AAA, 4 cm, infrarenal History of diabetes mellitus type 2 History of dyslipidemia history of hypertension Patient seen examined bedside. argatroban until warfarin goal INR of 4 and maintenance goal of 2-3. Pending appointing a legal guardian. Patient's chart, labs, images were reviewed and discussed with KARY Cardenas Enteric tube with metallic tip in the left upper quadrant likely in the stomach. Home on plavix and warfarin D/C INITIAL PLAN TO [facility]END[facility]/ discharge planning in place once court appointed DPOA available D/W RN 10/28/2020 HGB 9.4 doing well on trach shield on a 24-hour basis./ blood gases shows no worsening hypercapnia while on trach shield. No apneic breathing reported. laparoscopic gastrostomy tube placement (specifically 24 F) Oct discharge planning in place once court appointed DPOA available Acute anemia Acute metabolic, infectious encephalopathy Acute respiratory failure Healthcare associated pneumonia Acute hypoglycemia Hypokalemia Elevated troponins Severe protein malnutrition Morbid obesity AAA, 4 cm, infrarenal History of diabetes mellitus type 2 History of dyslipidemia history of hypertension Patient seen examined bedside. argatroban until warfarin goal INR of 4 and maintenance goal of 2-3. Pending appointing a legal guardian. Patient's chart, labs, images were reviewed and discussed with KARY Cardenas Enteric tube with metallic tip in the left upper quadrant likely in the stomach. Home on plavix and warfarin D/C INITIAL PLAN TO [facility] PENDING/ discharge planning in place once court appointed DPOA available D/W RN Vitals Vitals Vital Signs Date Time Temp Pulse Resp B/P (MAP) Pulse Ox O2 Delivery O2 Flow Rate FiO2 10/28/20 09:18 87 10/28/20 07:52 99.1 16 111/58 (75) 100 trach shield 99.1 10/28/20 07:26 8.0 Physical Exam General: Alert, Cooperative, No acute distress Heart: Regular rate (SR), Other (distatne heart sounds) Lungs: Other (Tracheostomy) Abdomen: Soft, Other (g tube in place) Extremities: No cyanosis, Other (2-3+ bilateral LE pitting edema) Skin: No rashes, No significant lesion Labs LABS Laboratory Tests Test 10/27/20 12:22 10/27/20 18:23 10/27/20 23:15 10/28/20 06:01 Glucose (Fingerstick) 147 mg/dL (70-99) 150 mg/dL (70-99) 154 mg/dL (70-99) 166 mg/dL (70-99) Test 10/28/20 06:05 White Blood Count 7.2 x10^3/uL (4.0-11.0) Red Blood Count 2.98 x10^6/uL (4.30-5.70) Hemoglobin 9.2 g/dL (13.0-17.5) Hematocrit 27.9 % (39.0-53.0) Mean Corpuscular Volume 94 fL (79-100) Mean Corpuscular Hemoglobin 31 pg (25-35) Mean Corpuscular Hemoglobin Concent 33 g/dL (31-37) Red Cell Distribution Width 15.6 % (11.5-14.5) Platelet Count 266 x10^3/uL (140-400) Neutrophils (%) (Auto) 57 % (31-73) Lymphocytes (%) (Auto) 29 % (24-48) Monocytes (%) (Auto) 7 % (0-9) Eosinophils (%) (Auto) 6 % (0-3) Basophils (%) (Auto) 1 % (0-3) Neutrophils # (Auto) 4.1 x10^3/uL (1.8-7.7) Lymphocytes # (Auto) 2.1 x10^3/uL (1.0-4.8) Monocytes # (Auto) 0.5 x10^3/uL (0.0-1.1) Eosinophils # (Auto) 0.5 x10^3/uL (0.0-0.7) Basophils # (Auto) 0.0 x10^3/uL (0.0-0.2) Prothrombin Time 28.8 SEC (11.7-14.0) Prothromb Time International Ratio 2.8 (0.8-1.1) Sodium Level 136 mmol/L (136-145) Potassium Level 4.0 mmol/L (3.5-5.1) Chloride Level 97 mmol/L (98-107) Carbon Dioxide Level 38 mmol/L (21-32) Anion Gap 1 (6-14) Blood Urea Nitrogen 25 mg/dL (8-26) Creatinine 0.9 mg/dL (0.7-1.3) Estimated GFR (Cockcroft-Gault) 82.9 BUN/Creatinine Ratio 28 (6-20) Glucose Level 174 mg/dL (70-99) Calcium Level 8.8 mg/dL (8.5-10.1) Total Bilirubin 0.7 mg/dL (0.2-1.0) Aspartate Amino Transf (AST/SGOT) 23 U/L (15-37) Alanine Aminotransferase (ALT/SGPT) 26 U/L (16-63) Alkaline Phosphatase 78 U/L (46-116) Total Protein 6.6 g/dL (6.4-8.2) Albumin 2.3 g/dL (3.4-5.0) Albumin/Globulin Ratio 0.5 (1.0-1.7) Assessment and Plan Assessmemt and Plan Problems Medical Problems: (1) NSTEMI (non-ST elevated myocardial infarction) Status: Acute (2) Obtundation Status: Acute (3) Respiratory arrest Status: Acute Comment Review of Relevant I have reviewed the following items denise (where applicable) has been applied. Labs Laboratory Tests Test 10/26/20 11:44 10/26/20 16:40 10/26/20 23:43 10/27/20 05:15 Glucose (Fingerstick) 150 mg/dL (70-99) 151 mg/dL (70-99) 156 mg/dL (70-99) Prothrombin Time 25.1 SEC (11.7-14.0) Prothromb Time International Ratio 2.3 (0.8-1.1) Test 10/27/20 05:29 10/27/20 12:22 10/27/20 18:23 10/27/20 23:15 Glucose (Fingerstick) 154 mg/dL (70-99) 147 mg/dL (70-99) 150 mg/dL (70-99) 154 mg/dL (70-99) Test 10/28/20 06:01 10/28/20 06:05 Glucose (Fingerstick) 166 mg/dL (70-99) White Blood Count 7.2 x10^3/uL (4.0-11.0) Red Blood Count 2.98 x10^6/uL (4.30-5.70) Hemoglobin 9.2 g/dL (13.0-17.5) Hematocrit 27.9 % (39.0-53.0) Mean Corpuscular Volume 94 fL (79-100) Mean Corpuscular Hemoglobin 31 pg (25-35) Mean Corpuscular Hemoglobin Concent 33 g/dL (31-37) Red Cell Distribution Width 15.6 % (11.5-14.5) Platelet Count 266 x10^3/uL (140-400) Neutrophils (%) (Auto) 57 % (31-73) Lymphocytes (%) (Auto) 29 % (24-48) Monocytes (%) (Auto) 7 % (0-9) Eosinophils (%) (Auto) 6 % (0-3) Basophils (%) (Auto) 1 % (0-3) Neutrophils # (Auto) 4.1 x10^3/uL (1.8-7.7) Lymphocytes # (Auto) 2.1 x10^3/uL (1.0-4.8) Monocytes # (Auto) 0.5 x10^3/uL (0.0-1.1) Eosinophils # (Auto) 0.5 x10^3/uL (0.0-0.7) Basophils # (Auto) 0.0 x10^3/uL (0.0-0.2) Prothrombin Time 28.8 SEC (11.7-14.0) Prothromb Time International Ratio 2.8 (0.8-1.1) Sodium Level 136 mmol/L (136-145) Potassium Level 4.0 mmol/L (3.5-5.1) Chloride Level 97 mmol/L (98-107) Carbon Dioxide Level 38 mmol/L (21-32) Anion Gap 1 (6-14) Blood Urea Nitrogen 25 mg/dL (8-26) Creatinine 0.9 mg/dL (0.7-1.3) Estimated GFR (Cockcroft-Gault) 82.9 BUN/Creatinine Ratio 28 (6-20) Glucose Level 174 mg/dL (70-99) Calcium Level 8.8 mg/dL (8.5-10.1) Total Bilirubin 0.7 mg/dL (0.2-1.0) Aspartate Amino Transf (AST/SGOT) 23 U/L (15-37) Alanine Aminotransferase (ALT/SGPT) 26 U/L (16-63) Alkaline Phosphatase 78 U/L (46-116) Total Protein 6.6 g/dL (6.4-8.2) Albumin 2.3 g/dL (3.4-5.0) Albumin/Globulin Ratio 0.5 (1.0-1.7) Laboratory Tests Test 10/27/20 12:22 10/27/20 18:23 10/27/20 23:15 10/28/20 06:01 Glucose (Fingerstick) 147 mg/dL (70-99) 150 mg/dL (70-99) 154 mg/dL (70-99) 166 mg/dL (70-99) Test 10/28/20 06:05 White Blood Count 7.2 x10^3/uL (4.0-11.0) Red Blood Count 2.98 x10^6/uL (4.30-5.70) Hemoglobin 9.2 g/dL (13.0-17.5) Hematocrit 27.9 % (39.0-53.0) Mean Corpuscular Volume 94 fL (79-100) Mean Corpuscular Hemoglobin 31 pg (25-35) Mean Corpuscular Hemoglobin Concent 33 g/dL (31-37) Red Cell Distribution Width 15.6 % (11.5-14.5) Platelet Count 266 x10^3/uL (140-400) Neutrophils (%) (Auto) 57 % (31-73) Lymphocytes (%) (Auto) 29 % (24-48) Monocytes (%) (Auto) 7 % (0-9) Eosinophils (%) (Auto) 6 % (0-3) Basophils (%) (Auto) 1 % (0-3) Neutrophils # (Auto) 4.1 x10^3/uL (1.8-7.7) Lymphocytes # (Auto) 2.1 x10^3/uL (1.0-4.8) Monocytes # (Auto) 0.5 x10^3/uL (0.0-1.1) Eosinophils # (Auto) 0.5 x10^3/uL (0.0-0.7) Basophils # (Auto) 0.0 x10^3/uL (0.0-0.2) Prothrombin Time 28.8 SEC (11.7-14.0) Prothromb Time International Ratio 2.8 (0.8-1.1) Sodium Level 136 mmol/L (136-145) Potassium Level 4.0 mmol/L (3.5-5.1) Chloride Level 97 mmol/L (98-107) Carbon Dioxide Level 38 mmol/L (21-32) Anion Gap 1 (6-14) Blood Urea Nitrogen 25 mg/dL (8-26) Creatinine 0.9 mg/dL (0.7-1.3) Estimated GFR (Cockcroft-Gault) 82.9 BUN/Creatinine Ratio 28 (6-20) Glucose Level 174 mg/dL (70-99) Calcium Level 8.8 mg/dL (8.5-10.1) Total Bilirubin 0.7 mg/dL (0.2-1.0) Aspartate Amino Transf (AST/SGOT) 23 U/L (15-37) Alanine Aminotransferase (ALT/SGPT) 26 U/L (16-63) Alkaline Phosphatase 78 U/L (46-116) Total Protein 6.6 g/dL (6.4-8.2) Albumin 2.3 g/dL (3.4-5.0) Albumin/Globulin Ratio 0.5 (1.0-1.7) Medications Current Medications Fentanyl Citrate 30 ml @ 0 mls/hr CONT PRN IV SEE PROTOCOL; Start 09/22/20 at 09:45; Stop 10/13/20 at 09:24; Status DC Propofol 100 ml @ 0 mls/hr CONT PRN IV PER PROTOCOL Last administered on 09/22/20at 10:30; Start 09/22/20 at 09:45; Stop 09/26/20 at 20:12; Status DC Fentanyl Citrate (Fentanyl 2ml Vial) 25 mcg PRN Q1HR PRN IV SEE COMMENTS; Start 09/22/20 at 09:45; Stop 10/24/20 at 18:57; Status DC Fentanyl Citrate (Fentanyl 2ml Vial) 50 mcg PRN Q1HR PRN IV SEE COMMENTS Last administered on 10/03/20at 01:22; Start 09/22/20 at 09:45; Stop 10/24/20 at 18:57; Status DC Chlorhexidine Gluconate (Peridex) 15 ml BID MM ; Start 09/22/20 at 10:00; Stop 09/22/20 at 19:54; Status DC Midazolam HCl (Versed) 2 mg 1X ONCE IV ; Start 09/22/20 at 10:30; Stop 09/22/20 at 10:31; Status DC Iohexol (Omnipaque 300 Mg/ml) 75 ml 1X ONCE IV Last administered on 09/22/20at 11:06; Start 09/22/20 at 10:45; Stop 09/22/20 at 10:46; Status DC Info (CONTRAST GIVEN -- Rx MONITORING) 1 each PRN DAILY PRN MC SEE COMMENTS; Start 09/22/20 at 10:45; Stop 09/24/20 at 10:44; Status DC Potassium Chloride/Water 100 ml @ 100 mls/hr Q1H IV Last administered on 09/22/20at 20:27; Start 09/22/20 at 15:00; Stop 09/22/20 at 18:59; Status DC Cefepime HCl (Maxipime) 1 gm Q8HRS IVP Last administered on 09/29/20at 05:52; Start 09/22/20 at 14:00; Stop 09/29/20 at 10:32; Status DC Sennosides (Senna) 17.2 mg PRN BID PRN PO CONSTIPATION; Start 09/22/20 at 14:00 Docusate Sodium (Colace) 100 mg PRN DAILY PRN PO HARD STOOLS; Start 09/22/20 at 14:00; Stop 09/22/20 at 14:00; Status DC Ondansetron HCl (Zofran) 4 mg PRN Q6HRS PRN IVP NAUSEA/VOMITING, 1ST CHOICE; Start 09/22/20 at 14:00 Insulin Human Lispro (HumaLOG) 0-7 UNITS Q6HRS SQ Last administered on 10/28/20at 06:15; Start 09/22/20 at 18:00 Dextrose (Dextrose 50%-Water Syringe) 12.5 gm PRN Q15MIN PRN IV SEE COMMENTS Last administered on 09/22/20at 17:47; Start 09/22/20 at 14:00 Dextrose/Sodium Chloride 1,000 ml @ 50 mls/hr Q20H IV Last administered on 10/12/20at 11:04; Start 09/22/20 at 14:00; Stop 10/13/20 at 09:24; Status DC Acetaminophen (Tylenol) 650 mg PRN Q4HRS PRN PO TEMP OVER 100.4F OR MILD PAIN Last administered on 09/23/20at 00:20; Start 09/22/20 at 14:00; Stop 09/23/20 at 16:24; Status DC Enoxaparin Sodium (Lovenox 40mg Syringe) 40 mg Q24H SQ ; Start 09/22/20 at 14:00; Status UNV Pantoprazole Sodium (PROTONIX VIAL for IV PUSH) 40 mg DAILY IVP Last administered on 10/28/20at 09:16; Start 09/23/20 at 09:00 Prochlorperazine Edisylate (Compazine) 10 mg PRN Q6HRS PRN IV NAUSEA/VOMITING, 2ND CHOICE; Start 09/22/20 at 14:00 Etomidate (Amidate) 20 mg STK-MED ONCE IV ; Start 09/22/20 at 17:46; Stop 09/22/20 at 17:46; Status DC Rocuronium [place] (Zemuron) 50 mg STK-MED ONCE .ROUTE ; Start 09/22/20 at 17:46; Stop 09/22/20 at 17:47; Status DC Norepinephrine Bitartrate 8 mg/ Dextrose 258 ml @ 21.769 mls/ hr CONT PRN IV PER PROTOCOL Last administered on 09/24/20at 13:20; Start 09/22/20 at 18:15; Stop 10/13/20 at 09:24; Status DC Potassium Chloride/Water 100 ml @ 100 mls/hr Q1H IV Last administered on 09/23/20at 14:30; Start 09/23/20 at 07:00; Stop 09/23/20 at 14:59; Status DC Acetaminophen (Tylenol) 650 mg PRN Q6HRS PRN PEG MILD PAIN / TEMP > 100.3'F Last administered on 10/25/20at 17:01; Start 09/23/20 at 16:30 Warfarin Sodium (Coumadin Per Pharmacy) 1 each PRN DAILY PRN MC SEE COMMENTS Last administered on 10/01/20at 12:32; Start 09/24/20 at 12:30; Stop 10/02/20 at 05:55; Status DC Warfarin Sodium (Coumadin) 5 mg 1X WARF ONCE PO Last administered on 09/24/20at 17:42; Start 09/24/20 at 16:00; Stop 09/24/20 at 16:01; Status DC Warfarin Sodium (Coumadin - No Dose Today) 1 each 1X WARF ONCE MC ; Start 09/25/20 at 16:00; Stop 09/25/20 at 16:01; Status DC Warfarin Sodium (Coumadin) 1 mg 1X WARF ONCE PO Last administered on 09/26/20at 16:00; Start 09/26/20 at 16:00; Stop 09/26/20 at 16:01; Status DC Propofol 100 ml @ 3.174 mls/ hr CONT PRN IV PER PROTOCOL Last administered on 10/09/20at 04:43; Start 09/26/20 at 20:15; Stop 10/13/20 at 09:24; Status DC Atropine Sulfate (ATROPINE 1mg SYRINGE) 1 mg STK-MED ONCE .ROUTE ; Start 09/25/20 at 10:00; Stop 09/27/20 at 08:20; Status DC Epinephrine HCl (EPINEPHrine SYRINGE) 1 mg STK-MED ONCE .ROUTE ; Start 09/25/20 at 10:00; Stop 09/27/20 at 08:20; Status DC Warfarin Sodium (Coumadin) 2 mg 1X WARF ONCE PO Last administered on 09/27/20at 17:53; Start 09/27/20 at 16:00; Stop 09/27/20 at 16:01; Status DC Aspirin (Aspirin Chewable) 81 mg DAILYWBKFT PO Last administered on 10/06/20at 11:39; Start 09/27/20 at 09:30; Stop 10/06/20 at 16:23; Status DC Clopidogrel Bisulfate (Plavix) 75 mg DAILYWBKFT PO Last administered on 10/09/20at 09:24; Start 09/27/20 at 09:30; Stop 10/09/20 at 17:03; Status DC Potassium Chloride/Water 100 ml @ 100 mls/hr Q1H IV Last administered on 09/27/20at 12:45; Start 09/27/20 at 11:30; Stop 09/27/20 at 13:29; Status DC Warfarin Sodium (Coumadin) 3 mg 1X WARF ONCE PO Last administered on 09/28/20at 18:18; Start 09/28/20 at 16:00; Stop 09/28/20 at 16:01; Status DC Cefepime HCl (Maxipime) 2 gm Q8HRS IVP Last administered on 10/20/20at 05:36; Start 09/29/20 at 14:00; Stop 10/20/20 at 13:23; Status DC Warfarin Sodium (Coumadin) 3 mg 1X WARF ONCE PO Last administered on 09/29/20at 16:55; Start 09/29/20 at 16:00; Stop 09/29/20 at 16:01; Status DC Warfarin Sodium (Coumadin) 3 mg 1X WARF ONCE PO Last administered on 09/30/20at 16:00; Start 09/30/20 at 16:00; Stop 09/30/20 at 16:01; Status DC Warfarin Sodium (Coumadin) 5 mg 1X WARF ONCE PO Last administered on 10/01/20at 16:35; Start 10/01/20 at 16:00; Stop 10/01/20 at 16:01; Status DC Multi-Ingred Cream/Lotion/Oil/ Oint (Artificial Tears Eye Ointment) 1 sudheer PRN Q1HR PRN OU DRY EYE Last administered on 10/03/20at 12:24; Start 10/02/20 at 12:45 Fentanyl Citrate (Fentanyl 2ml Vial) 25 mcg PRN Q5MIN PRN IVP MILD PAIN 1-3; Start 10/05/20 at 06:00; Stop 10/06/20 at 05:59; Status DC Fentanyl Citrate (Fentanyl 2ml Vial) 50 mcg PRN Q5MIN PRN IVP MODERATE PAIN 4- 6; Start 10/05/20 at 06:00; Stop 10/06/20 at 05:59; Status DC Morphine Sulfate (Morphine Sulfate) 1 mg PRN Q10MIN PRN IVP SEVERE PAIN 7-10; Start 10/05/20 at 06:00; Stop 10/06/20 at 05:59; Status UNV Ringer's Solution 1,000 ml @ 30 mls/hr Q24H IV ; Start 10/05/20 at 06:00; Stop 10/05/20 at 17:59; Status DC Hydromorphone HCl (Dilaudid) 0.5 mg PRN Q10MIN PRN IVP SEVERE PAIN 7-10, 2nd CHOICE; Start 10/05/20 at 06:00; Stop 10/06/20 at 05:59; Status UNV Prochlorperazine Edisylate (Compazine) 5 mg PACU PRN PRN IVP NAUSEA, MRX1; Start 10/05/20 at 06:00; Stop 10/06/20 at 05:59; Status DC Bupivacaine HCl/ Epinephrine Bitart (Sensorcain-Epi 0.5%-1:[id number] Mpf) 30 ml STK-MED ONCE .ROUTE Last administered on 10/05/20at 10:09; Start 10/05/20 at 07:12; Stop 10/05/20 at 07:12; Status DC Cellulose (Surgicel Fibrillar 1x2) 1 each STK-MED ONCE .ROUTE Last administered on 10/05/20at 10:30; Start 10/05/20 at 07:12; Stop 10/05/20 at 07:12; Status DC Rocuronium [place] (Zemuron) 50 mg STK-MED ONCE .ROUTE ; Start 10/05/20 at 09:06; Stop 10/05/20 at 09:06; Status DC Rocuronium [place] (Zemuron) 50 mg STK-MED ONCE .ROUTE ; Start 10/05/20 at 10:10; Stop 10/05/20 at 10:10; Status DC Warfarin Sodium (Coumadin Per Pharmacy) 1 each PRN DAILY PRN MC SEE COMMENTS Last administered on 10/06/20at 09:32; Start 10/05/20 at 14:00; Stop 10/06/20 at 16:23; Status DC Argatroban (Argatroban Per Pharmacy) 1 each PRN DAILY PRN MC SEE COMMENTS Last administered on 10/13/20at 16:34; Start 10/05/20 at 14:00; Stop 10/24/20 at 09:37; Status DC Argatroban 50 mg/ Sodium Chloride 50 ml @ 6.48 mls/hr CONT PRN IV ADJUST PER PTT; Start 10/05/20 at 14:00; Stop 10/05/20 at 13:59; Status DC Argatroban 50 mg/ Sodium Chloride 50 ml @ 6.48 mls/hr CONT PRN IV ADJUST PER PTT; Start 10/06/20 at 00:00; Status Cancel Warfarin Sodium (Coumadin) 5 mg 1X WARF ONCE PO Last administered on 10/05/20at 21:23; Start 10/05/20 at 16:00; Stop 10/05/20 at 16:01; Status DC Argatroban 50 mg/ Sodium Chloride 50 ml @ 0 mls/hr CONT PRN IV PER PROTOCOL Last administered on 10/19/20at 22:13; Start 10/06/20 at 09:00; Stop 10/20/20 at 13:02; Status DC Warfarin Sodium (Coumadin) 5 mg 1X WARF ONCE PO ; Start 10/06/20 at 16:00; Stop 10/06/20 at 16:01; Status Cancel Amiodarone HCl (Cordarone) 400 mg DAILY PO Last administered on 10/28/20at 09:18; Start 10/06/20 at 10:00 Atorvastatin Calcium (Lipitor) 40 mg QHS PO Last administered on 10/27/20at 21:08; Start 10/06/20 at 21:00 Metoprolol Tartrate (Lopressor) 25 mg BID PO Last administered on 10/28/20at 09:18; Start 10/06/20 at 10:00 Furosemide (Lasix) 40 mg DAILY IVP Last administered on 10/28/20at 09:16; Start 10/06/20 at 10:00 Potassium Bicarbonate (Potassium Effervescent Tablet) 20 meq DAILY PEG Last administered on 10/28/20at 09:19; Start 10/06/20 at 10:00 Tirofiban/Sodium Chloride 100 ml @ 0 mls/hr CONT PRN IV PER PROTOCOL Last administered on 10/11/20at 14:11; Start 10/09/20 at 17:00; Stop 10/11/20 at 20:21; Status DC Albumin Human 100 ml @ 100 mls/hr 1X ONCE IV Last administered on 10/12/20at 15:22; Start 10/12/20 at 14:00; Stop 10/12/20 at 14:59; Status DC Furosemide (Lasix) 40 mg 1X ONCE IVP Last administered on 10/12/20at 15:22; Start 10/12/20 at 15:00; Stop 10/12/20 at 15:01; Status DC Aspirin (Aspirin Chewable) 81 mg 1X ONCE PO Last administered on 10/13/20at 12:25; Start 10/13/20 at 10:30; Stop 10/13/20 at 10:31; Status DC Aspirin (Aspirin Chewable) 81 mg DAILYWBKFT PO Last administered on 10/28/20at 09:18; Start 10/14/20 at 08:00 Fentanyl Citrate (Fentanyl 2ml Vial) 25 mcg PRN Q5MIN PRN IVP MILD PAIN 1-3; Start 10/18/20 at 06:00; Stop 10/18/20 at 20:00; Status DC Ringer's Solution 1,000 ml @ 30 mls/hr Q24H IV Last administered on 10/18/20at 06:00; Start 10/18/20 at 06:00; Stop 10/18/20 at 17:59; Status DC Bupivacaine HCl/ Epinephrine Bitart (Sensorcain-Epi 0.5% Kit) 30 ml STK-MED ONCE .ROUTE Last administered on 10/18/20at 11:04; Start 10/18/20 at 10:23; Stop 10/18/20 at 10:24; Status DC Rocuronium [place] (Zemuron) 50 mg STK-MED ONCE .ROUTE ; Start 10/18/20 at 10:48; Stop 10/18/20 at 10:48; Status DC Sevoflurane (Ultane) 60 ml STK-MED ONCE IH ; Start 10/18/20 at 11:13; Stop 10/18/20 at 11:13; Status DC Fentanyl Citrate (Fentanyl 2ml Vial) 100 mcg STK-MED ONCE .ROUTE ; Start 10/18/20 at 11:14; Stop 10/18/20 at 11:14; Status DC Phenylephrine HCl (PHENYLEPHRINE in 0.9% NACL PF) 1 mg STK-MED ONCE IV ; Start 10/18/20 at 11:55; Stop 10/18/20 at 11:56; Status DC Argatroban (Argatroban Per Pharmacy) 1 each PRN DAILY PRN MC SEE COMMENTS; Start 10/19/20 at 10:30; Status UNV Clopidogrel Bisulfate (Plavix) 75 mg DAILYWBKFT PO Last administered on 10/28/20at 09:19; Start 10/19/20 at 14:00 Warfarin Sodium (Coumadin Per Pharmacy) 1 each PRN DAILY PRN MC SEE COMMENTS Last administered on 10/27/20at 08:32; Start 10/19/20 at 13:15 Warfarin Sodium (Coumadin) 5 mg 1X WARF ONCE PO Last administered on 10/19/20at 15:24; Start 10/19/20 at 16:00; Stop 10/19/20 at 16:01; Status DC Warfarin Sodium (Coumadin) 5 mg 1X WARF ONCE PO Last administered on 10/20/20at 19:10; Start 10/20/20 at 16:00; Stop 10/20/20 at 16:01; Status DC Argatroban 50 mg/ Sodium Chloride 50 ml @ 0 mls/hr CONT PRN IV PER PROTOCOL Last administered on 10/24/20at 01:10; Start 10/20/20 at 13:15; Stop 10/24/20 at 09:37; Status DC Warfarin Sodium (Coumadin) 6 mg 1X WARF ONCE PO Last administered on 10/21/20at 17:56; Start 10/21/20 at 16:00; Stop 10/21/20 at 16:01; Status DC Warfarin Sodium (Coumadin) 7.5 mg 1X WARF ONCE PO Last administered on 10/11 04/02at 17:45; Start 10/22/20 at 16:00; Stop 10/22/20 at 16:01; Status DC Warfarin Sodium (Coumadin) 6 mg 1X WARF ONCE PO Last administered on 10/23/20at 17:05; Start 10/23/20 at 16:00; Stop 10/23/20 at 16:01; Status DC Warfarin Sodium (Coumadin) 4 mg 1X WARF ONCE PO ; Start 10/24/20 at 16:00; Stop 10/24/20 at 10:45; Status DC Warfarin Sodium (Coumadin) 4 mg 1X WARF ONCE PO Last administered on 10/24/20at 17:52; Start 10/24/20 at 16:00; Stop 10/24/20 at 16:01; Status DC Warfarin Sodium (Coumadin) 5 mg 1X WARF ONCE PO Last administered on 10/25/20at 16:51; Start 10/25/20 at 16:00; Stop 10/25/20 at 16:01; Status DC Warfarin Sodium (Coumadin) 6 mg 1X WARF ONCE PO Last administered on 10/26/20at 17:24; Start 10/26/20 at 16:00; Stop 10/26/20 at 16:01; Status DC Alteplase, Recombinant (Cathflo For Central Catheter Clearance) 1 mg 1X ONCE INT CAT Last administered on 10/26/20at 21:50; Start 10/26/20 at 18:30; Stop 10/26/20 at 18:31; Status DC Warfarin Sodium (Coumadin) 6 mg 1X WARF ONCE PO Last administered on 10/27/20at 16:00; Start 10/27/20 at 16:00; Stop 10/27/20 at 16:01; Status DC Active Scripts Active Amiodarone Hcl 200 Mg Tablet 400 Mg PO DAILY 90 Days [Warfarin Per Pharmacy] 1 EACH Each 1 Each MC PRN DAILY PRN 30 Days Clopidogrel (Clopidogrel Bisulfate) 75 Mg Tablet 75 Mg PO DAILYWBKFT 90 Days Humalog (Insulin Lispro) 100 Unit/1 Ml Insuln.pen 0 Units SQ TIDWMEALS 30 Days Duoneb 0.5-3(2.5) Mg/3 Ml (Albuterol/Ipratropium) 3 Ml Ampul.neb 3 Ml NEB RTQID 30 Days Aspirin 325 Mg Tablet 325 Mg PO DAILYWBKFT 30 Days Metoprolol Tartrate 25 Mg Tablet 25 Mg PO BID 30 Days Montelukast Sodium Tablet (Montelukast Sodium) 10 Mg Tablet 10 Mg PO QHS Gabapentin 600 Mg Tablet 600 Mg PO BID 30 Days Reported Glimepiride 4 Mg Tablet 1 Tab PO DAILY Furosemide 40 Mg Tablet 1 Tab PO BID Symbicort 160-4.5 Mcg Inhaler (Budesonide/Formoterol Fumarate) 10.2 Gm Hfa.aer.ad 1 Puff INH DAILY Losartan-Hctz 100-12.5 Mg Tab (Losartan/Hydrochlorothiazide) 1 Each Tablet 1 Tab PO DAILY Nitrofurantoin [place]-Mcr 100 Mg (Nitrofurantoin Monohyd/M-Cryst) 100 Mg Capsule 1 Cap PO BID Betamethasone Valerate 60 Ml Lotion 1 TP QHS Atorvastatin Calcium 40 Mg Tablet 1 Tab PO DAILY Diltiazem 24Hr Cd (Diltiazem HCl) 240 Mg Cap.er.24h 1 Cap PO DAILY Nystop (Nystatin) 60 Gm Powder 1 Sudheer TP BID Pepcid (Famotidine) 20 Mg Tablet 20 Mg PO BID Vitals/I & O Vital Sign - Last 24 Hours 10/27/20 10/27/20 10/27/20 10/27/20 11:00 12:00 15:00 16:00 Temp 99.0 98.7 99.0 98.7 Pulse 85 85 Resp 16 16 B/P (MAP) 140/86 (104) 131/68 (89) Pulse Ox 100 99 O2 Delivery BiPAP/CPAP trach shield O2 Flow Rate 8.0 10.0 8.0 10/27/20 10/27/20 10/27/20 10/27/20 17:19 19:20 19:20 21:08 Temp 98.8 98.8 Pulse 99 99 Resp 18 B/P (MAP) 140/81 (100) 140/81 Pulse Ox 99 100 O2 Delivery Tracheal Collar trach shield Trach Collar O2 Flow Rate 8.0 7.0 10/27/20 10/27/20 10/27/20 10/28/20 21:33 22:57 23:59 01:10 Temp 99.6 99.6 Pulse 82 Resp 19 B/P (MAP) 124/77 (93) Pulse Ox 98 98 100 O2 Delivery Tracheal Collar trach shield Ventilator O2 Flow Rate 8.0 8.0 10/28/20 10/28/20 10/28/20 10/28/20 02:51 03:56 04:04 07:26 Temp 99.3 99.3 Pulse 78 Resp 13 B/P (MAP) 102/65 (77) Pulse Ox 100 100 99 O2 Delivery BiPAP/CPAP Ventilator Tracheal Collar O2 Flow Rate 8.0 8.0 10/28/20 10/28/20 10/28/20 07:52 09:18 09:18 Temp 99.1 99.1 Pulse 79 83 87 Resp 16 B/P (MAP) 111/58 (75) Pulse Ox 100 O2 Delivery trach shield Intake and Output 10/27/20 10/27/20 10/28/20 15:00 23:00 07:00 Intake Total 963 ml 878 ml Output Total 1100 ml Balance 963 ml -222 ml Justicifation of Admission Dx: Justifications for Admission: Justification of Admission Dx: Yes CHF: Cardiac Arrhythmias KLAUDIA HAY MD Oct 28, 2020 10:23
[2020-10-28 11:11] VITALS: BP 123/72
[2020-10-28 15:06] VITALS: BP 131/76
[2020-10-28] MEDS ORDERED: WARFARIN 5 MG TABLET. PO ONE (16:00)
[2020-10-28 19:00] VITALS: BP 113/66
--- NOTE | 2020-10-28 19:16 | NUR ---
Pt resting in bed assessment completed vss poc explained will resume care and continue to monitor pt.
[2020-10-28] MEDS: ATORVASTATIN CALCIUM 40 MG TABLET. PO SCH (21:14)
[2020-10-28] MEDS: ACETAMINOPHEN 650 MG/20.3 ML SOLUTION. PEG PRN (21:16)
[2020-10-28 23:00] VITALS: BP 115/67
[2020-10-29 03:00] VITALS: BP 95/57
[2020-10-29] MEDS: INSULIN LISPRO 300 UNITS/3 ML VIAL. SQ SCH ×3 (05:33→18:00)
[2020-10-29 06:01] LABS: PROTHROMBIN TIME PATIENT 30.5 SEC (11.7-14.0)
[2020-10-29 07:00] VITALS: BP 140/79
[2020-10-29] MEDS: PANTOPRAZOLE IV PUSH 40 MG VIAL. IVP SCH (09:34)
[2020-10-29] MEDS: POTASSIUM BICARB 20 MEQ EFFERVESCENT TABLET. PEG SCH (09:35)
[2020-10-29] MEDS: METOPROLOL TART IMMED RELEASE 25 MG TABLET. PO SCH ×2 (09:35→21:33)
[2020-10-29] MEDS: ACETAMINOPHEN 650 MG/20.3 ML SOLUTION. PEG PRN (09:35)
[2020-10-29] MEDS: ASPIRIN CHEWABLE 81 MG TABLET. PO SCH (09:35)
[2020-10-29] MEDS: CLOPIDOGREL BISULFATE 75 MG TABLET PO SCH (09:35)
[2020-10-29] MEDS: FUROSEMIDE 40 MG/4 ML VIAL. IVP SCH (09:36)
[2020-10-29] MEDS: AMIODARONE HCL 200 MG TABLET. PO SCH (09:36)
[2020-10-29 11:00] VITALS: BP 100/63
--- NOTE | 2020-10-29 11:52 | PDOC ---
PROGRESS NOTES Date of Service: DATE: 10/29/20 TIME: 11:52 Chief Complaint Chief Complaint impression Acute anemia Acute metabolic, infectious encephalopathy Acute respiratory failure Healthcare associated pneumonia Acute hypoglycemia Hypokalemia Elevated troponins Severe protein malnutrition Morbid obesity AAA, 4 cm, infrarenal History of diabetes mellitus type 2 History of dyslipidemia history of hypertension History of recent STEMI History of CAD History of peripheral artery disease History of JEANNE History of CVA History of paroxysmal atrial fibrillation Ischemic cardiomyopathy History of Present Illness History of Present Illness Mr Andrews is a 70-year-old male with a recent prolonged hospitalization for STEMI and respiratory failure for which she was treated with arterial thrombolysis for a right leg popliteal artery aneurysm and also had left heart cath with placement of a stent in the LAD and RCA comes in today after he was found obtunded at his group home facility. Apparently according to the nursing facility patient was in his usual state of health and he was conversational but then became altered. His blood glucose was found to be in the 30s. Glucose tabs and glucagon was given in route and his GCS reported at 6. Upon arrival patient's mental status did not improve and he was eventually intubated for airway protection. Of note EMS was bagging the patient through the nasal access. In the ED, patient was placed on a vent and pulmonology was consulted. Patient was also taken to the CT scanner for sanders scanning. Patient was started to wake up on the vent and sedation was ordered. 09/23: Patient examined at bedside. Intubated. Not on any sedation but unresponsive. Neurology consult in place. 09/24: Patient seen and examined at bedside. Remains intubated he is off sedation but still remains unresponsive. Planning for MRI brain in the morning. Further plan to be determined by MRI. 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 09/25: Afebrile, currently breathing on ventilator with FiO2 50%, PEEP 5. Had CODE BLUE in ICU this morning; received 2 rounds of CPR, epinephrine, and atropine with ROSC. MRI brain negative. Made DNR, and after discussion with Dr. Rubalcava he agrees. 09/26:: Afebrile. Still on vent, with FiO2 45%, PEEP 5. After discussion with Dr. Rubalcava yesterday, patient was made DNR. In the ED is likely a poor candidate for weaning trials may need trach in near future if no significant improvement. 09/27:: Afebrile. On vent with FiO2 40%, PEEP 5. Potassium 2.8 today, will replace. Warfarin has been resumed. Discussed with pharmacy, will resume aspirin and Plavix. May need tracheostomy by the end of the week if no improvement in mental status. 09/28:: Afebrile. On ventilator with FiO2 40%, PEEP 5. Warfarin has been res umed; INR 1.3 today. Some morning labs still pending; hemoglobin yesterday 7.3, will continue to monitor. Continue IV cefepime and supportive care. 09/29: Afebrile. Breathing on vent with FiO2 40%, PEEP 5. INR 1.2 today; pharmacy to help with warfarin dosing. White count within normal range, renal function stable. Spoke with pharmacy about cefepime 1 g every 8 hours dosing; this has been changed to cefepime 2 g every 8 hours. 09/30: Afebrile. Currently breathing on vent with FiO2 40%, PEEP 5. Continue antibiotics, cefepime 2 g every 8 hours. INR 1.4; continue warfarin dosing per pharmacy. Possible tracheostomy at some point. Critical care time 30 minutes reviewing charts, labs, examination, discussion with RN. 10/01: T-max 100.3 F. On ventilator with FiO2 40%, PEEP 5. Continue antibiotics, cefepime 2 g every 8 hours. INR 1.4, still subtherapeutic; continue warfarin dosing per pharmacy. Possible tracheostomy at some point. 10/02: No acute events overnight. Patient saturating 99% on vent settings of 1 0/450/40/5. Patient will likely need a trach and PEG at some point. We will hold warfarin and start 2 units PRBC transfusion. Patient's chart, labs, images were reviewed and discussed with RN 10/03: No acute events overnight. Patient sat 100% on minimal vent settings. No sedation at this point and patient is opening his eyes spontaneously. Not much response or spontaneous movements. Surgery has been consulted for tracheostomy. Patient will also likely need a PEG tube. 10/04: No acute events overnight. Patient saturating 90% on minimal vent settings. T-max 100.4 overnight. Plan for trach tomorrow with surgery. Patient's chart, labs, images were reviewed and discussed with RN 10/05: No acute events overnight. Patient saturating 99% on minimal vent settings. Plan for tracheostomy today. Consent is provided by authorization by 2 physicians due to patient having no close relatives or DPOA. Will resume heparin and warfarin bridging tomorrow after tracheostomy 10/07: No acute events overnight. Patient seen and examined bedside. On trach vent. Saturating 99%. Pending GI evaluation for possible PEG placement after discussing with cardiology whether to continue with Plavix. Possibly place PEG if patient is only on aspirin and stopping argatroban. 10/08: No acute events overnight. Patient continues to be on trach mechanical vent. Saturating 100%. Pending decision from GI whether to proceed with PEG placement depending on the type of anticoagulation patient will be on. 10/09: No overnight events. On trach with vent support 40% FiO2 PEEP of 5. Currently argatroban and propofol for minimal sedation. When sedation is weaned he has no meaningful movements but has pulled at his tracheostomy site. Unable to hold plavix due to recently placed stents. 10/10: Afebrile today. On trach with vent support 40% FiO2 PEEP of 5. Continue argatroban and changed to Aggrastat in anticipation of surgical consultation for potential laparoscopic PEG placement. INR 1.6. Hb greater than 9 no significant neurologic recovery today. 10/11: Afebrile. On trach with vent support 40% FiO2 PEEP of 5. INR 1.8. Not making meaningful eye contact. Labs otherwise stable. 10/12: Afebrile. Trach with vent support 40% FiO2 PEEP five O2 saturations 92%. INR 1.8, mag 1.8, Hb 8.4. Not following commands. Tentative plans for surgical PEG next week. 10/13: Afebrile. Trach with vent support 40% FiO2 PEEP 5. Eyes open, not tracking or following commands. Holding Plavix. On argatroban. 10/14: Afebrile. Trach with vent support 40% FiO2 PEEP of 5. Will open eyes intermittently not necessarily to voice. Good urine output. Labs stable. 10/15: Afebrile overnight. Trach with vent AC 40% fio2 PEEP 5. Had a very large bowel movement. Still not tracking. Hb 9, INR 1.7, glucose 144. Tentative plan for PEG 10/18/2020 CC time 30 minutes 9/6/21: Patient seen and examined in the ICU. He was resting and still on vent via trach. Has NG running via Dobhoff, feeding at 40cc/hr. AC/10/450/40% plus 5 PEEP. Discussed with RN. Chart reviewed. 10/17/20: Patient was seen and examined in the ICU today. Still on vent via trach at AC/10/450/40 plus 5 PEEP. While examined, patient was at 100% O2 saturation. Has SCDs on for DVT prophylaxis. Stauffer catheter in place. On IV argatroban. R subclavian triple lumen in place. Dobhoff running at 40cc/hr. Discussed with RN. Chart reviewed. 10/18/20: Patient seen and examined in ICU. His eyes are open. On vent via trach with settings that were recently changed to spontaneous respirations with FiO2 of 40 and 5 PEEP. Trach is clean and dry. Currently, oxygen saturation is at 100%. Stauffer to bedside and rectal bag in place. Discussed with RN. Chart revi ewed. 10/19/20: Patient was seen and examined in the ICU today. His eyes were open and he was resting. On BiPAP via trach AVAPS/10/450/40 plus 5 PEEP. Trach is clean and dry. Has SCDs for DVT prophylaxis. Patient has rectal bag, Stauffer to bedside, and NG tube in place. Discussed with RN. Chart reviewed. 10/20/20 No acute events overnight. Patient seen and examined bedside. Transferred from the ICU. Continues to be nonverbal and not following much commands. Opens eyes to voice. Currently on BiPAP via trach on AVAPS setting 10/450/40 PEEP of 5. Trach site is clear. No signs of infections. Patient's chart, labs, images were reviewed and discussed with RN 10/21/2020 No acute events overnight. Patient seen and examined bedside. Afebrile. Cont inues to be nonverbal but opens eyes to voice. Currently on BiPAP. Patient's chart, labs, images were reviewed and discussed with RN. 10/22/2020 No acute events overnight. Patient seen examined bedside. Continue with argatroban until warfarin goal INR of 4 and maintenance goal of 2-3. Please see behavioral therapist note. Pending appointing a legal guardian. Patient's chart, labs, images were reviewed and discussed with RN 10/23/2020 laparoscopic gastrostomy tube placement (specifically 24 F) Oct discharge planning in place once court appointed DPOA available Acute anemia Acute metabolic, infectious encephalopathy Acute respiratory failure Healthcare associated pneumonia Acute hypoglycemia Hypokalemia Elevated troponins Severe protein malnutrition Morbid obesity AAA, 4 cm, infrarenal History of diabetes mellitus type 2 History of dyslipidemia history of hypertension Patient seen examined bedside. argatroban until warfarin goal INR of 4 and maintenance goal of 2-3. Pending appointing a legal guardian. Patient's chart, labs, images were reviewed and discussed with KARY Cardenas Enteric tube with metallic tip in the left upper quadrant likely in the stomach. 10/24/2020 doing well on trach shield on a 24-hour basis./ blood gases shows no worsening hypercapnia while on trach shield. No apneic breathing reported. laparoscopic gastrostomy tube placement (specifically 24 F) Oct discharge planning in place once court appointed DPOA available Acute anemia Acute metabolic, infectious encephalopathy Acute respiratory failure Healthcare associated pneumonia Acute hypoglycemia Hypokalemia Elevated troponins Severe protein malnutrition Morbid obesity AAA, 4 cm, infrarenal History of diabetes mellitus type 2 History of dyslipidemia history of hypertension Patient seen examined bedside. argatroban until warfarin goal INR of 4 and maintenance goal of 2-3. Pending appointing a legal guardian. Patient's chart, labs, images were reviewed and discussed with KARY Cardenas Enteric tube with metallic tip in the left upper quadrant likely in the stomach. Home on plavix and warfarin D/C INITIAL PLAN TO [facility] PENDING/ discharge planning in place once court appointed DPOA available D/W RN 10/25/2020 doing well on trach shield on a 24-hour basis./ blood gases shows no worsening hypercapnia while on trach shield. No apneic breathing reported. laparoscopic gastrostomy tube placement (specifically 24 F) Oct discharge planning in place once court appointed DPOA available Acute anemia Acute metabolic, infectious encephalopathy Acute respiratory failure Healthcare associated pneumonia Acute hypoglycemia Hypokalemia Elevated troponins Severe protein malnutrition Morbid obesity AAA, 4 cm, infrarenal History of diabetes mellitus type 2 History of dyslipidemia history of hypertension Patient seen examined bedside. argatroban until warfarin goal INR of 4 and maintenance goal of 2-3. Pending appointing a legal guardian. Patient's chart, labs, images were reviewed and discussed with KARY Cardenas Enteric tube with metallic tip in the left upper quadrant likely in the stomach. Home on plavix and warfarin D/C INITIAL PLAN TO [facility] PENDING/ discharge planning in place once court appointed DPOA available D/W RN 10/26/2020 HGB 9.4 doing well on trach shield on a 24-hour basis./ blood gases shows no worsening hypercapnia while on trach shield. No apneic breathing reported. laparoscopic gastrostomy tube placement (specifically 24 F) Oct discharge planning in place once court appointed DPOA available Acute anemia Acute metabolic, infectious encephalopathy Acute respiratory failure Healthcare associated pneumonia Acute hypoglycemia Hypokalemia Elevated troponins Severe protein malnutrition Morbid obesity AAA, 4 cm, infrarenal History of diabetes mellitus type 2 History of dyslipidemia history of hypertension Patient seen examined bedside. argatroban until warfarin goal INR of 4 and maintenance goal of 2-3. Pending appointing a legal guardian. Patient's chart, labs, images were reviewed and discussed with KARY Cardenas Enteric tube with metallic tip in the left upper quadrant likely in the stomach. Home on plavix and warfarin D/C INITIAL PLAN TO [facility] PENDING/ discharge planning in place once court appointed DPOA available D/W RN 10/27/2020 HGB 9.4 doing well on trach shield on a 24-hour basis./ blood gases shows no worsening hypercapnia while on trach shield. No apneic breathing reported. laparoscopic gastrostomy tube placement (specifically 24 F) Oct discharge planning in place once court appointed DPOA available Acute anemia Acute metabolic, infectious encephalopathy Acute respiratory failure Healthcare associated pneumonia Acute hypoglycemia Hypokalemia Elevated troponins Severe protein malnutrition Morbid obesity AAA, 4 cm, infrarenal History of diabetes mellitus type 2 History of dyslipidemia history of hypertension Patient seen examined bedside. argatroban until warfarin goal INR of 4 and maintenance goal of 2-3. Pending appointing a legal guardian. Patient's chart, labs, images were reviewed and discussed with KARY Cardenas Enteric tube with metallic tip in the left upper quadrant likely in the stomach. Home on plavix and warfarin D/C INITIAL PLAN TO [facility] PENDING/ discharge planning in place once court appointed DPOA available D/W RN 10/28/2020 HGB 9.4 doing well on trach shield on a 24-hour basis./ blood gases shows no worsening hypercapnia while on trach shield. No apneic breathing reported. laparoscopic gastrostomy tube placement (specifically 24 F) Oct discharge planning in place once court appointed DPOA available Acute anemia Acute metabolic, infectious encephalopathy Acute respiratory failure Healthcare associated pneumonia Acute hypoglycemia Hypokalemia Elevated troponins Severe protein malnutrition Morbid obesity AAA, 4 cm, infrarenal History of diabetes mellitus type 2 History of dyslipidemia history of hypertension Patient seen examined bedside. argatroban until warfarin goal INR of 4 and maintenance goal of 2-3. Pending appointing a legal guardian. Patient's chart, labs, images were reviewed and discussed with KARY Cardenas Enteric tube with metallic tip in the left upper quadrant likely in the stomach. Home on plavix and warfarin D/C INITIAL PLAN TO [facility] PENDING/ discharge planning in place once court appointed DPOA available D/W RN Vitals Vitals Vital Signs Date Time Temp Pulse Resp B/P (MAP) Pulse Ox O2 Delivery O2 Flow Rate FiO2 10/29/20 11:00 98.0 76 18 100/63 (75) 100 trach shield 98.0 10/29/20 07:22 8.0 Physical Exam General: Alert, Cooperative, No acute distress Heart: Regular rate (SR), Other (distatne heart sounds) Lungs: Other (Tracheostomy) Abdomen: Soft, Other (g tube in place) Extremities: No cyanosis, Other (2-3+ bilateral LE pitting edema) Skin: No rashes, No significant lesion Labs LABS Laboratory Tests Test 10/28/20 12:03 10/28/20 18:51 10/28/20 23:37 10/28/20 23:42 Glucose (Fingerstick) 164 mg/dL (70-99) 147 mg/dL (70-99) 134 mg/dL (70-99) 143 mg/dL (70-99) Test 10/29/20 05:00 10/29/20 05:15 Prothrombin Time 30.5 SEC (11.7-14.0) Prothromb Time International Ratio 3.0 (0.8-1.1) Glucose (Fingerstick) 156 mg/dL (70-99) Assessment and Plan Assessmemt and Plan Problems Medical Problems: (1) NSTEMI (non-ST elevated myocardial infarction) Status: Acute (2) Obtundation Status: Acute (3) Respiratory arrest Status: Acute Comment Review of Relevant I have reviewed the following items denise (where applicable) has been applied. Labs Laboratory Tests Test 10/27/20 12:22 10/27/20 18:23 10/27/20 23:15 10/28/20 06:01 Glucose (Fingerstick) 147 mg/dL (70-99) 150 mg/dL (70-99) 154 mg/dL (70-99) 166 mg/dL (70-99) Test 10/28/20 06:05 10/28/20 12:03 10/28/20 18:51 10/28/20 23:37 White Blood Count 7.2 x10^3/uL (4.0-11.0) Red Blood Count 2.98 x10^6/uL (4.30-5.70) Hemoglobin 9.2 g/dL (13.0-17.5) Hematocrit 27.9 % (39.0-53.0) Mean Corpuscular Volume 94 fL (79-100) Mean Corpuscular Hemoglobin 31 pg (25-35) Mean Corpuscular Hemoglobin Concent 33 g/dL (31-37) Red Cell Distribution Width 15.6 % (11.5-14.5) Platelet Count 266 x10^3/uL (140-400) Neutrophils (%) (Auto) 57 % (31-73) Lymphocytes (%) (Auto) 29 % (24-48) Monocytes (%) (Auto) 7 % (0-9) Eosinophils (%) (Auto) 6 % (0-3) Basophils (%) (Auto) 1 % (0-3) Neutrophils # (Auto) 4.1 x10^3/uL (1.8-7.7) Lymphocytes # (Auto) 2.1 x10^3/uL (1.0-4.8) Monocytes # (Auto) 0.5 x10^3/uL (0.0-1.1) Eosinophils # (Auto) 0.5 x10^3/uL (0.0-0.7) Basophils # (Auto) 0.0 x10^3/uL (0.0-0.2) Prothrombin Time 28.8 SEC (11.7-14.0) Prothromb Time International Ratio 2.8 (0.8-1.1) Sodium Level 136 mmol/L (136-145) Potassium Level 4.0 mmol/L (3.5-5.1) Chloride Level 97 mmol/L (98-107) Carbon Dioxide Level 38 mmol/L (21-32) Anion Gap 1 (6-14) Blood Urea Nitrogen 25 mg/dL (8-26) Creatinine 0.9 mg/dL (0.7-1.3) Estimated GFR (Cockcroft-Gault) 82.9 BUN/Creatinine Ratio 28 (6-20) Glucose Level 174 mg/dL (70-99) Calcium Level 8.8 mg/dL (8.5-10.1) Total Bilirubin 0.7 mg/dL (0.2-1.0) Aspartate Amino Transf (AST/SGOT) 23 U/L (15-37) Alanine Aminotransferase (ALT/SGPT) 26 U/L (16-63) Alkaline Phosphatase 78 U/L (46-116) Total Protein 6.6 g/dL (6.4-8.2) Albumin 2.3 g/dL (3.4-5.0) Albumin/Globulin Ratio 0.5 (1.0-1.7) Glucose (Fingerstick) 164 mg/dL (70-99) 147 mg/dL (70-99) 134 mg/dL (70-99) Test 10/28/20 23:42 10/29/20 05:00 10/29/20 05:15 Glucose (Fingerstick) 143 mg/dL (70-99) 156 mg/dL (70-99) Prothrombin Time 30.5 SEC (11.7-14.0) Prothromb Time International Ratio 3.0 (0.8-1.1) Laboratory Tests Test 10/28/20 12:03 10/28/20 18:51 10/28/20 23:37 10/28/20 23:42 Glucose (Fingerstick) 164 mg/dL (70-99) 147 mg/dL (70-99) 134 mg/dL (70-99) 143 mg/dL (70-99) Test 10/29/20 05:00 10/29/20 05:15 Prothrombin Time 30.5 SEC (11.7-14.0) Prothromb Time International Ratio 3.0 (0.8-1.1) Glucose (Fingerstick) 156 mg/dL (70-99) Medications Current Medications Fentanyl Citrate 30 ml @ 0 mls/hr CONT PRN IV SEE PROTOCOL; Start 09/22/20 at 09:45; Stop 10/13/20 at 09:24; Status DC Propofol 100 ml @ 0 mls/hr CONT PRN IV PER PROTOCOL Last administered on 09/22/20at 10:30; Start 09/22/20 at 09:45; Stop 09/26/20 at 20:12; Status DC Fentanyl Citrate (Fentanyl 2ml Vial) 25 mcg PRN Q1HR PRN IV SEE COMMENTS; Start 09/22/20 at 09:45; Stop 10/24/20 at 18:57; Status DC Fentanyl Citrate (Fentanyl 2ml Vial) 50 mcg PRN Q1HR PRN IV SEE COMMENTS Last administered on 10/03/20at 01:22; Start 09/22/20 at 09:45; Stop 10/24/20 at 18:57; Status DC Chlorhexidine Gluconate (Peridex) 15 ml BID MM ; Start 09/22/20 at 10:00; Stop 09/22/20 at 19:54; Status DC Midazolam HCl (Versed) 2 mg 1X ONCE IV ; Start 09/22/20 at 10:30; Stop 09/22/20 at 10:31; Status DC Iohexol (Omnipaque 300 Mg/ml) 75 ml 1X ONCE IV Last administered on 09/22/20at 11:06; Start 09/22/20 at 10:45; Stop 09/22/20 at 10:46; Status DC Info (CONTRAST GIVEN -- Rx MONITORING) 1 each PRN DAILY PRN MC SEE COMMENTS; Start 09/22/20 at 10:45; Stop 09/24/20 at 10:44; Status DC Potassium Chloride/Water 100 ml @ 100 mls/hr Q1H IV Last administered on 09/22/20at 20:27; Start 09/22/20 at 15:00; Stop 09/22/20 at 18:59; Status DC Cefepime HCl (Maxipime) 1 gm Q8HRS IVP Last administered on 09/29/20at 05:52; Start 09/22/20 at 14:00; Stop 09/29/20 at 10:32; Status DC Sennosides (Senna) 17.2 mg PRN BID PRN PO CONSTIPATION; Start 09/22/20 at 14:00 Docusate Sodium (Colace) 100 mg PRN DAILY PRN PO HARD STOOLS; Start 09/22/20 at 14:00; Stop 09/22/20 at 14:00; Status DC Ondansetron HCl (Zofran) 4 mg PRN Q6HRS PRN IVP NAUSEA/VOMITING, 1ST CHOICE; Start 09/22/20 at 14:00 Insulin Human Lispro (HumaLOG) 0-7 UNITS Q6HRS SQ Last administered on 10/29/20at 05:33; Start 09/22/20 at 18:00 Dextrose (Dextrose 50%-Water Syringe) 12.5 gm PRN Q15MIN PRN IV SEE COMMENTS Last administered on 09/22/20at 17:47; Start 09/22/20 at 14:00 Dextrose/Sodium Chloride 1,000 ml @ 50 mls/hr Q20H IV Last administered on 10/12/20at 11:04; Start 09/22/20 at 14:00; Stop 10/13/20 at 09:24; Status DC Acetaminophen (Tylenol) 650 mg PRN Q4HRS PRN PO TEMP OVER 100.4F OR MILD PAIN Last administered on 09/23/20at 00:20; Start 09/22/20 at 14:00; Stop 09/23/20 at 16:24; Status DC Enoxaparin Sodium (Lovenox 40mg Syringe) 40 mg Q24H SQ ; Start 09/22/20 at 14:00; Status UNV Pantoprazole Sodium (PROTONIX VIAL for IV PUSH) 40 mg DAILY IVP Last administered on 10/29/20at 09:34; Start 09/23/20 at 09:00 Prochlorperazine Edisylate (Compazine) 10 mg PRN Q6HRS PRN IV NAUSEA/VOMITING, 2ND CHOICE; Start 09/22/20 at 14:00 Etomidate (Amidate) 20 mg STK-MED ONCE IV ; Start 09/22/20 at 17:46; Stop 09/22/20 at 17:46; Status DC Rocuronium [place] (Zemuron) 50 mg STK-MED ONCE .ROUTE ; Start 09/22/20 at 17:46; Stop 09/22/20 at 17:47; Status DC Norepinephrine Bitartrate 8 mg/ Dextrose 258 ml @ 21.769 mls/ hr CONT PRN IV PER PROTOCOL Last administered on 09/24/20at 13:20; Start 09/22/20 at 18:15; Stop 10/13/20 at 09:24; Status DC Potassium Chloride/Water 100 ml @ 100 mls/hr Q1H IV Last administered on 09/23/20at 14:30; Start 09/23/20 at 07:00; Stop 09/23/20 at 14:59; Status DC Acetaminophen (Tylenol) 650 mg PRN Q6HRS PRN PEG MILD PAIN / TEMP > 100.3'F Last administered on 10/29/20at 09:35; Start 09/23/20 at 16:30 Warfarin Sodium (Coumadin Per Pharmacy) 1 each PRN DAILY PRN MC SEE COMMENTS Last administered on 10/01/20at 12:32; Start 09/24/20 at 12:30; Stop 10/02/20 at 05:55; Status DC Warfarin Sodium (Coumadin) 5 mg 1X WARF ONCE PO Last administered on 09/24/20at 17:42; Start 09/24/20 at 16:00; Stop 09/24/20 at 16:01; Status DC Warfarin Sodium (Coumadin - No Dose Today) 1 each 1X WARF ONCE MC ; Start 09/25/20 at 16:00; Stop 09/25/20 at 16:01; Status DC Warfarin Sodium (Coumadin) 1 mg 1X WARF ONCE PO Last administered on 09/26/20at 16:00; Start 09/26/20 at 16:00; Stop 09/26/20 at 16:01; Status DC Propofol 100 ml @ 3.174 mls/ hr CONT PRN IV PER PROTOCOL Last administered on 10/09/20at 04:43; Start 09/26/20 at 20:15; Stop 10/13/20 at 09:24; Status DC Atropine Sulfate (ATROPINE 1mg SYRINGE) 1 mg STK-MED ONCE .ROUTE ; Start 09/25/20 at 10:00; Stop 09/27/20 at 08:20; Status DC Epinephrine HCl (EPINEPHrine SYRINGE) 1 mg STK-MED ONCE .ROUTE ; Start 09/25/20 at 10:00; Stop 09/27/20 at 08:20; Status DC Warfarin Sodium (Coumadin) 2 mg 1X WARF ONCE PO Last administered on 09/27/20at 17:53; Start 09/27/20 at 16:00; Stop 09/27/20 at 16:01; Status DC Aspirin (Aspirin Chewable) 81 mg DAILYWBKFT PO Last administered on 10/06/20at 11:39; Start 09/27/20 at 09:30; Stop 10/06/20 at 16:23; Status DC Clopidogrel Bisulfate (Plavix) 75 mg DAILYWBKFT PO Last administered on 10/09/20at 09:24; Start 09/27/20 at 09:30; Stop 10/09/20 at 17:03; Status DC Potassium Chloride/Water 100 ml @ 100 mls/hr Q1H IV Last administered on 09/27/20at 12:45; Start 09/27/20 at 11:30; Stop 09/27/20 at 13:29; Status DC Warfarin Sodium (Coumadin) 3 mg 1X WARF ONCE PO Last administered on 09/28/20at 18:18; Start 09/28/20 at 16:00; Stop 09/28/20 at 16:01; Status DC Cefepime HCl (Maxipime) 2 gm Q8HRS IVP Last administered on 10/20/20at 05:36; Start 09/29/20 at 14:00; Stop 10/20/20 at 13:23; Status DC Warfarin Sodium (Coumadin) 3 mg 1X WARF ONCE PO Last administered on 09/29/20at 16:55; Start 09/29/20 at 16:00; Stop 09/29/20 at 16:01; Status DC Warfarin Sodium (Coumadin) 3 mg 1X WARF ONCE PO Last administered on 09/30/20at 16:00; Start 09/30/20 at 16:00; Stop 09/30/20 at 16:01; Status DC Warfarin Sodium (Coumadin) 5 mg 1X WARF ONCE PO Last administered on 10/01/20at 16:35; Start 10/01/20 at 16:00; Stop 10/01/20 at 16:01; Status DC Multi-Ingred Cream/Lotion/Oil/ Oint (Artificial Tears Eye Ointment) 1 sudheer PRN Q1HR PRN OU DRY EYE Last administered on 10/03/20at 12:24; Start 10/02/20 at 12:45 Fentanyl Citrate (Fentanyl 2ml Vial) 25 mcg PRN Q5MIN PRN IVP MILD PAIN 1-3; Start 10/05/20 at 06:00; Stop 10/06/20 at 05:59; Status DC Fentanyl Citrate (Fentanyl 2ml Vial) 50 mcg PRN Q5MIN PRN IVP MODERATE PAIN 4- 6; Start 10/05/20 at 06:00; Stop 10/06/20 at 05:59; Status DC Morphine Sulfate (Morphine Sulfate) 1 mg PRN Q10MIN PRN IVP SEVERE PAIN 7-10; Start 10/05/20 at 06:00; Stop 10/06/20 at 05:59; Status UNV Ringer's Solution 1,000 ml @ 30 mls/hr Q24H IV ; Start 10/05/20 at 06:00; Stop 10/05/20 at 17:59; Status DC Hydromorphone HCl (Dilaudid) 0.5 mg PRN Q10MIN PRN IVP SEVERE PAIN 7-10, 2nd CHOICE; Start 10/05/20 at 06:00; Stop 10/06/20 at 05:59; Status UNV Prochlorperazine Edisylate (Compazine) 5 mg PACU PRN PRN IVP NAUSEA, MRX1; Start 10/05/20 at 06:00; Stop 10/06/20 at 05:59; Status DC Bupivacaine HCl/ Epinephrine Bitart (Sensorcain-Epi 0.5%-1:638620 Mpf) 30 ml STK-MED ONCE .ROUTE Last administered on 10/05/20at 10:09; Start 10/05/20 at 07:12; Stop 10/05/20 at 07:12; Status DC Cellulose (Surgicel Fibrillar 1x2) 1 each STK-MED ONCE .ROUTE Last administered on 10/05/20at 10:30; Start 10/05/20 at 07:12; Stop 10/05/20 at 07:12; Status DC Rocuronium [place] (Zemuron) 50 mg STK-MED ONCE .ROUTE ; Start 10/05/20 at 09:06; Stop 10/05/20 at 09:06; Status DC Rocuronium [place] (Zemuron) 50 mg STK-MED ONCE .ROUTE ; Start 10/05/20 at 10:10; Stop 10/05/20 at 10:10; Status DC Warfarin Sodium (Coumadin Per Pharmacy) 1 each PRN DAILY PRN MC SEE COMMENTS Last administered on 10/06/20at 09:32; Start 10/05/20 at 14:00; Stop 10/06/20 at 16:23; Status DC Argatroban (Argatroban Per Pharmacy) 1 each PRN DAILY PRN MC SEE COMMENTS Last administered on 10/13/20at 16:34; Start 10/05/20 at 14:00; Stop 10/24/20 at 09:37; Status DC Argatroban 50 mg/ Sodium Chloride 50 ml @ 6.48 mls/hr CONT PRN IV ADJUST PER PTT; Start 10/05/20 at 14:00; Stop 10/05/20 at 13:59; Status DC Argatroban 50 mg/ Sodium Chloride 50 ml @ 6.48 mls/hr CONT PRN IV ADJUST PER PTT; Start 10/06/20 at 00:00; Status Cancel Warfarin Sodium (Coumadin) 5 mg 1X WARF ONCE PO Last administered on 10/05/20at 21:23; Start 10/05/20 at 16:00; Stop 10/05/20 at 16:01; Status DC Argatroban 50 mg/ Sodium Chloride 50 ml @ 0 mls/hr CONT PRN IV PER PROTOCOL Last administered on 10/19/20at 22:13; Start 10/06/20 at 09:00; Stop 10/20/20 at 13:02; Status DC Warfarin Sodium (Coumadin) 5 mg 1X WARF ONCE PO ; Start 10/06/20 at 16:00; Stop 10/06/20 at 16:01; Status Cancel Amiodarone HCl (Cordarone) 400 mg DAILY PO Last administered on 10/29/20at 09:36; Start 10/06/20 at 10:00 Atorvastatin Calcium (Lipitor) 40 mg QHS PO Last administered on 10/28/20at 21:14; Start 10/06/20 at 21:00 Metoprolol Tartrate (Lopressor) 25 mg BID PO Last administered on 10/29/20at 09:35; Start 10/06/20 at 10:00 Furosemide (Lasix) 40 mg DAILY IVP Last administered on 10/29/20at 09:36; Start 10/06/20 at 10:00 Potassium Bicarbonate (Potassium Effervescent Tablet) 20 meq DAILY PEG Last administered on 10/29/20at 09:35; Start 10/06/20 at 10:00 Tirofiban/Sodium Chloride 100 ml @ 0 mls/hr CONT PRN IV PER PROTOCOL Last administered on 10/11/20at 14:11; Start 10/09/20 at 17:00; Stop 10/11/20 at 20:21; Status DC Albumin Human 100 ml @ 100 mls/hr 1X ONCE IV Last administered on 10/12/20at 15:22; Start 10/12/20 at 14:00; Stop 10/12/20 at 14:59; Status DC Furosemide (Lasix) 40 mg 1X ONCE IVP Last administered on 10/12/20at 15:22; Start 10/12/20 at 15:00; Stop 10/12/20 at 15:01; Status DC Aspirin (Aspirin Chewable) 81 mg 1X ONCE PO Last administered on 10/13/20at 12:25; Start 10/13/20 at 10:30; Stop 10/13/20 at 10:31; Status DC Aspirin (Aspirin Chewable) 81 mg DAILYWBKFT PO Last administered on 10/29/20at 09:35; Start 10/14/20 at 08:00 Fentanyl Citrate (Fentanyl 2ml Vial) 25 mcg PRN Q5MIN PRN IVP MILD PAIN 1-3; Start 10/18/20 at 06:00; Stop 10/18/20 at 20:00; Status DC Ringer's Solution 1,000 ml @ 30 mls/hr Q24H IV Last administered on 10/18/20at 06:00; Start 10/18/20 at 06:00; Stop 10/18/20 at 17:59; Status DC Bupivacaine HCl/ Epinephrine Bitart (Sensorcain-Epi 0.5% Kit) 30 ml STK-MED ONCE .ROUTE Last administered on 10/18/20at 11:04; Start 10/18/20 at 10:23; Stop 10/18/20 at 10:24; Status DC Rocuronium [place] (Zemuron) 50 mg STK-MED ONCE .ROUTE ; Start 10/18/20 at 10:48; Stop 10/18/20 at 10:48; Status DC Sevoflurane (Ultane) 60 ml STK-MED ONCE IH ; Start 10/18/20 at 11:13; Stop 10/18/20 at 11:13; Status DC Fentanyl Citrate (Fentanyl 2ml Vial) 100 mcg STK-MED ONCE .ROUTE ; Start 10/18/20 at 11:14; Stop 10/18/20 at 11:14; Status DC Phenylephrine HCl (PHENYLEPHRINE in 0.9% NACL PF) 1 mg STK-MED ONCE IV ; Start 10/18/20 at 11:55; Stop 10/18/20 at 11:56; Status DC Argatroban (Argatroban Per Pharmacy) 1 each PRN DAILY PRN MC SEE COMMENTS; Sta rt 10/19/20 at 10:30; Status UNV Clopidogrel Bisulfate (Plavix) 75 mg DAILYWBKFT PO Last administered on 10/29/20at 09:35; Start 10/19/20 at 14:00 Warfarin Sodium (Coumadin Per Pharmacy) 1 each PRN DAILY PRN MC SEE COMMENTS Last administered on 10/28/20at 13:31; Start 10/19/20 at 13:15 Warfarin Sodium (Coumadin) 5 mg 1X WARF ONCE PO Last administered on 10/19/20at 15:24; Start 10/19/20 at 16:00; Stop 10/19/20 at 16:01; Status DC Warfarin Sodium (Coumadin) 5 mg 1X WARF ONCE PO Last administered on 10/20/20at 19:10; Start 10/20/20 at 16:00; Stop 10/20/20 at 16:01; Status DC Argatroban 50 mg/ Sodium Chloride 50 ml @ 0 mls/hr CONT PRN IV PER PROTOCOL Last administered on 10/24/20at 01:10; Start 10/20/20 at 13:15; Stop 10/24/20 at 09:37; Status DC Warfarin Sodium (Coumadin) 6 mg 1X WARF ONCE PO Last administered on 10/21/20at 17:56; Start 10/21/20 at 16:00; Stop 10/21/20 at 16:01; Status DC Warfarin Sodium (Coumadin) 7.5 mg 1X WARF ONCE PO Last administered on 10/22/20at 17:45; Start 10/22/20 at 16:00; Stop 10/22/20 at 16:01; Status DC Warfarin Sodium (Coumadin) 6 mg 1X WARF ONCE PO Last administered on 10/23/20at 17:05; Start 10/23/20 at 16:00; Stop 10/23/20 at 16:01; Status DC Warfarin Sodium (Coumadin) 4 mg 1X WARF ONCE PO ; Start 10/24/20 at 16:00; Stop 10/24/20 at 10:45; Status DC Warfarin Sodium (Coumadin) 4 mg 1X WARF ONCE PO Last administered on 10/24/20at 17:52; Start 10/24/20 at 16:00; Stop 10/24/20 at 16:01; Status DC Warfarin Sodium (Coumadin) 5 mg 1X WARF ONCE PO Last administered on 10/25/20at 16:51; Start 10/25/20 at 16:00; Stop 10/25/20 at 16:01; Status DC Warfarin Sodium (Coumadin) 6 mg 1X WARF ONCE PO Last administered on 10/26/20at 17:24; Start 10/26/20 at 16:00; Stop 10/26/20 at 16:01; Status DC Alteplase, Recombinant (Cathflo For Central Catheter Clearance) 1 mg 1X ONCE INT CAT Last administered on 10/26/20at 21:50; Start 10/26/20 at 18:30; Stop 10/26/20 at 18:31; Status DC Warfarin Sodium (Coumadin) 6 mg 1X WARF ONCE PO Last administered on 10/27/20at 16:00; Start 10/27/20 at 16:00; Stop 10/27/20 at 16:01; Status DC Warfarin Sodium (Coumadin) 5 mg 1X WARF ONCE PO Last administered on 10/28/20at 18:32; Start 10/28/20 at 16:00; Stop 10/28/20 at 16:01; Status DC Active Scripts Active Amiodarone Hcl 200 Mg Tablet 400 Mg PO DAILY 90 Days [Warfarin Per Pharmacy] 1 EACH Each 1 Each PRN DAILY PRN 30 Days Clopidogrel (Clopidogrel Bisulfate) 75 Mg Tablet 75 Mg PO DAILYWBKFT 90 Days Humalog (Insulin Lispro) 100 Unit/1 Ml Insuln.pen 0 Units SQ TIDWMEALS 30 Days Duoneb 0.5-3(2.5) Mg/3 Ml (Albuterol/Ipratropium) 3 Ml Ampul.neb 3 Ml NEB RTQID 30 Days Aspirin 325 Mg Tablet 325 Mg PO DAILYWBKFT 30 Days Metoprolol Tartrate 25 Mg Tablet 25 Mg PO BID 30 Days Montelukast Sodium Tablet (Montelukast Sodium) 10 Mg Tablet 10 Mg PO QHS Gabapentin 600 Mg Tablet 600 Mg PO BID 30 Days Reported Glimepiride 4 Mg Tablet 1 Tab PO DAILY Furosemide 40 Mg Tablet 1 Tab PO BID Symbicort 160-4.5 Mcg Inhaler (Budesonide/Formoterol Fumarate) 10.2 Gm Hfa.aer.ad 1 Puff INH DAILY Losartan-Hctz 100-12.5 Mg Tab (Losartan/Hydrochlorothiazide) 1 Each Tablet 1 Tab PO DAILY Nitrofurantoin White-Mcr 100 Mg (Nitrofurantoin Monohyd/M-Cryst) 100 Mg Capsule 1 Cap PO BID Betamethasone Valerate 60 Ml Lotion 1 TP QHS Atorvastatin Calcium 40 Mg Tablet 1 Tab PO DAILY Diltiazem 24Hr Cd (Diltiazem HCl) 240 Mg Cap.er.24h 1 Cap PO DAILY Nystop (Nystatin) 60 Gm Powder 1 Sudheer TP BID Pepcid (Famotidine) 20 Mg Tablet 20 Mg PO BID Vitals/I & O Vital Sign - Last 24 Hours 10/28/20 10/28/20 10/28/20 10/28/20 15:06 15:14 17:09 19:00 Temp 99.5 99.7 99.5 99.7 Pulse 92 88 Resp 24 19 B/P (MAP) 131/76 (94) 113/66 (82) Pulse Ox 100 96 96 100 O2 Delivery Tracheal Collar Tracheal Collar Tracheal Collar trach shield O2 Flow Rate 8.0 8.0 10/28/20 10/28/20 10/28/20 10/28/20 19:15 20:13 21:14 23:00 Temp 99.1 99.1 Pulse 88 83 Resp 22 B/P (MAP) 113/66 115/67 (83) Pulse Ox 100 99 O2 Delivery Trach Collar Tracheal Collar trach shield O2 Flow Rate 7.0 8.0 10/28/20 10/29/20 10/29/20 10/29/20 23:59 00:20 01:30 03:00 Temp 99.1 99.1 Pulse 80 Resp 22 B/P (MAP) 95/57 (70) Pulse Ox 100 100 99 O2 Delivery Ventilator Ventilator trach shield O2 Flow Rate 8.0 10/29/20 10/29/20 10/29/20 10/29/20 03:56 05:10 07:00 07:22 Temp 98.2 98.2 Pulse 85 Resp 19 B/P (MAP) 140/79 (99) Pulse Ox 100 100 100 O2 Delivery Ventilator BiPAP/CPAP Tracheal Collar O2 Flow Rate 8.0 8.0 10/29/20 10/29/20 10/29/20 09:35 09:36 11:00 Temp 98.0 98.0 Pulse 85 85 76 Resp 18 B/P (MAP) 140/79 140/79 100/63 (75) Pulse Ox 100 O2 Delivery trach shield l Intake and Output 10/28/20 10/28/20 10/29/20 15:00 23:00 07:00 Intake Total 625 ml 675 ml Output Total 1200 ml Balance 625 ml -525 ml Justicifation of Admission Dx: Justifications for Admission: Justification of Admission Dx: Yes CHF: Cardiac Arrhythmias KLAUDIA HAY MD Oct 29, 2020 11:52
[2020-10-29 15:00] VITALS: BP 111/56
[2020-10-29] MEDS ORDERED: WARFARIN 4 MG TABLET. PO ONE (16:00)
[2020-10-29 19:00] VITALS: BP 127/63
[2020-10-29] MEDS: ATORVASTATIN CALCIUM 40 MG TABLET. PO SCH (21:34)
[2020-10-29 23:00] VITALS: BP 125/67
[2020-10-30 03:00] VITALS: BP 147/75
[2020-10-30] MEDS: INSULIN LISPRO 300 UNITS/3 ML VIAL. SQ SCH ×4 (06:18→18:00)
[2020-10-30 07:00] VITALS: BP 140/73
[2020-10-30] MEDS: AMIODARONE HCL 200 MG TABLET. PO SCH (08:36)
[2020-10-30] MEDS: POTASSIUM BICARB 20 MEQ EFFERVESCENT TABLET. PEG SCH (08:36)
[2020-10-30] MEDS: ASPIRIN CHEWABLE 81 MG TABLET. PO SCH (08:37)
[2020-10-30] MEDS: METOPROLOL TART IMMED RELEASE 25 MG TABLET. PO SCH ×2 (08:38→20:47)
[2020-10-30] MEDS: CLOPIDOGREL BISULFATE 75 MG TABLET PO SCH (08:39)
[2020-10-30] MEDS: PANTOPRAZOLE IV PUSH 40 MG VIAL. IVP SCH (08:39)
[2020-10-30] MEDS: FUROSEMIDE 40 MG/4 ML VIAL. IVP SCH (08:39)
--- NOTE | 2020-10-30 10:05 | PDOC ---
[employer] PROGRESS NOTE Date of Service DOS: DATE: 10/30/20 TIME: 09:55 Chief Complaint Chief Complaint impression Acute anemia Acute metabolic, infectious encephalopathy Acute respiratory failure Healthcare associated pneumonia Acute hypoglycemia Hypokalemia Elevated troponins Severe protein malnutrition Morbid obesity AAA, 4 cm, infrarenal History of diabetes mellitus type 2 History of dyslipidemia history of hypertension History of recent STEMI History of CAD History of peripheral artery disease History of JEANNE History of CVA History of paroxysmal atrial fibrillation Ischemic cardiomyopathy History of Present Illness History of Present Illness 10/30/2020 Patient seen and examined. Discussed with psychiatric social worker supervisor and RN. Chart reviewed. Patient actively posturing at bed side. Has peg running at 45cc/hr. Mr Andrews is a 70-year-old male with a recent prolonged hospitalization for STEMI and respiratory failure for which she was treated with arterial thrombolysis for a right leg popliteal artery aneurysm and also had left heart cath with placement of a stent in the LAD and RCA comes in today after he was found obtunded at his [facility] facility. Apparently according to the nursing facility patient was in his usual state of health and he was con versational but then became altered. His blood glucose was found to be in the 30s. Glucose tabs and glucagon was given in route and his GCS reported at 6. Upon arrival patient's mental status did not improve and he was eventually intubated for airway protection. Of note EMS was bagging the patient through the nasal access. In the ED, patient was placed on a vent and pulmonology was consulted. Patient was also taken to the CT scanner for sanders scanning. Patient was started to wake up on the vent and sedation was ordered. 09/23: Patient examined at bedside. Intubated. Not on any sedation but unresponsive. Neurology consult in place. 09/24: Patient seen and examined at bedside. Remains intubated he is off sedation but still remains unresponsive. Planning for MRI brain in the morning. Further plan to be determined by MRI. 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 09/25: Afebrile, currently breathing on ventilator with FiO2 50%, PEEP 5. Had CODE BLUE in ICU this morning; received 2 rounds of CPR, epinephrine, and atropine with ROSC. MRI brain negative. Made DNR, and after discussion with Dr. Rubalcava he agrees. 09/26:: Afebrile. Still on vent, with FiO2 45%, PEEP 5. After discussion with Dr. Rubalcava yesterday, patient was made DNR. In the ED is likely a poor candidate for weaning trials may need trach in near future if no significant improvement. 09/27:: Afebrile. On vent with FiO2 40%, PEEP 5. Potassium 2.8 today, will replace. Warfarin has been resumed. Discussed with pharmacy, will resume aspirin and Plavix. May need tracheostomy by the end of the week if no improvement in mental status. 09/28:: Afebrile. On ventilator with FiO2 40%, PEEP 5. Warfarin has been resumed; INR 1.3 today. Some morning labs still pending; hemoglobin yesterday 7.3, will continue to monitor. Continue IV cefepime and supportive care. 09/29: Afebrile. Breathing on vent with FiO2 40%, PEEP 5. INR 1.2 today; pharmacy to help with warfarin dosing. White count within normal range, renal function stable. Spoke with pharmacy about cefepime 1 g every 8 hours dosing; this has been changed to cefepime 2 g every 8 hours. 09/30: Afebrile. Currently breathing on vent with FiO2 40%, PEEP 5. Continue antibiotics, cefepime 2 g every 8 hours. INR 1.4; continue warfarin dosing per pharmacy. Possible tracheostomy at some point. Critical care time 30 minutes reviewing charts, labs, examination, discussion with RN. 10/01: T-max 100.3 F. On ventilator with FiO2 40%, PEEP 5. Continue antibiotics, cefepime 2 g every 8 hours. INR 1.4, still subtherapeutic; continue warfarin dosing per pharmacy. Possible tracheostomy at some point. 10/02: No acute events overnight. Patient saturating 99% on vent settings of 10/450/40/5. Patient will likely need a trach and PEG at some point. We will hold warfarin and start 2 units PRBC transfusion. Patient's chart, labs, images were reviewed and discussed with RN 10/03: No acute events overnight. Patient sat 100% on minimal vent settings. No sedation at this point and patient is opening his eyes spontaneously. Not much response or spontaneous movements. Surgery has been consulted for tracheostomy. Patient will also likely need a PEG tube. 10/04: No acute events overnight. Patient saturating 90% on minimal vent settings. T-max 100.4 overnight. Plan for trach tomorrow with surgery. Patient's chart, labs, images were reviewed and discussed with RN 10/05: No acute events overnight. Patient saturating 99% on minimal vent settings. Plan for tracheostomy today. Consent is provided by authorization by 2 physicians due to patient having no close relatives or DPOA. Will resume heparin and warfarin bridging tomorrow after tracheostomy 10/07: No acute events overnight. Patient seen and examined bedside. On trach vent. Saturating 99%. Pending GI evaluation for possible PEG placement after discussing with cardiology whether to continue with Plavix. Possibly place PEG if patient is only on aspirin and stopping argatroban. 10/08: No acute events overnight. Patient continues to be on trach mechanical vent. Saturating 100%. Pending decision from GI whether to proceed with PEG placement depending on the type of anticoagulation patient will be on. 10/09: No overnight events. On trach with vent support 40% FiO2 PEEP of 5. Currently argatroban and propofol for minimal sedation. When sedation is weaned he has no meaningful movements but has pulled at his tracheostomy site. Unable to hold plavix due to recently placed stents. 10/10: Afebrile today. On trach with vent support 40% FiO2 PEEP of 5. Continue argatroban and changed to Aggrastat in anticipation of surgical consultation for potential laparoscopic PEG placement. INR 1.6. Hb greater than 9 no significant neurologic recovery today. 10/11: Afebrile. On trach with vent support 40% FiO2 PEEP of 5. INR 1.8. Not making meaningful eye contact. Labs otherwise stable. 10/12: Afebrile. Trach with vent support 40% FiO2 PEEP five O2 saturations 92%. INR 1.8, mag 1.8, Hb 8.4. Not following commands. Tentative plans for surgical PEG next week. 10/13: Afebrile. Trach with vent support 40% FiO2 PEEP 5. Eyes open, not tracking or following commands. Holding Plavix. On argatroban. 10/14: Afebrile. Trach with vent support 40% FiO2 PEEP of 5. Will open eyes intermittently not necessarily to voice. Good urine output. Labs stable. 10/15: Afebrile overnight. Trach with vent AC 40% fio2 PEEP 5. Had a very large bowel movement. Still not tracking. Hb 9, INR 1.7, glucose 144. Tentative plan for PEG 10/18/2020 CC time 30 minutes 10/16/20: Patient seen and examined in the ICU. He was resting and still on vent via trach. Has NG running via Dobhoff, feeding at 40cc/hr. AC/10/450/40% plus 5 PEEP. Discussed with RN. Chart reviewed. 10/17/20: Patient was seen and examined in the ICU today. Still on vent via trach at AC/10/450/40 plus 5 PEEP. While examined, patient was at 100% O2 saturation. Has SCDs on for DVT prophylaxis. Stauffer catheter in place. On IV argatroban. R subclavian triple lumen in place. Dobhoff running at 40cc/hr. Discussed with RN. Chart reviewed. 10/18/20: Patient seen and examined in ICU. His eyes are open. On vent via trach with settings that were recently changed to spontaneous respirations with FiO2 of 40 and 5 PEEP. Trach is clean and dry. Currently, oxygen saturation is at 100%. Stauffer to bedside and rectal bag in place. Discussed with RN. Chart reviewed. 10/19/20: Patient was seen and examined in the ICU today. His eyes were open and he was resting. On BiPAP via trach AVAPS/10/450/40 plus 5 PEEP. Trach is clean and dry. Has SCDs for DVT prophylaxis. Patient has rectal bag, Stauffer to bedside, and NG tube in place. Discussed with RN. Chart reviewed. 10/20/20 No acute events overnight. Patient seen and examined bedside. Transferred from the ICU. Continues to be nonverbal and not following much commands. Opens eyes to voice. Currently on BiPAP via trach on AVAPS setting 10/450/40 PEEP of 5. Trach site is clear. No signs of infections. Patient's chart, labs, images were reviewed and discussed with RN 10/21/2020 No acute events overnight. Patient seen and examined bedside. Afebrile. Continues to be nonverbal but opens eyes to voice. Currently on BiPAP. Patient's chart, labs, images were reviewed and discussed with RN. 10/22/2020 No acute events overnight. Patient seen examined bedside. Continue with argatroban until warfarin goal INR of 4 and maintenance goal of 2-3. Please see industrial maintenance tech note. Pending appointing a legal guardian. Patient's chart, labs, images were reviewed and discussed with RN 10/23/2020 laparoscopic gastrostomy tube placement (specifically 24 F) Oct discharge planning in place once court appointed DPOA available Acute anemia Acute metabolic, infectious encephalopathy Acute respiratory failure Healthcare associated pneumonia Acute hypoglycemia Hypokalemia Elevated troponins Severe protein malnutrition Morbid obesity AAA, 4 cm, infrarenal History of diabetes mellitus type 2 History of dyslipidemia history of hypertension Patient seen examined bedside. argatroban until warfarin goal INR of 4 and maintenance goal of 2-3. Pending appointing a legal guardian. Patient's chart, labs, images were reviewed and discussed with KARY Cardenas Enteric tube with metallic tip in the left upper quadrant likely in the stomach. 10/24/2020 doing well on trach shield on a 24-hour basis./ blood gases shows no worsening hypercapnia while on trach shield. No apneic breathing reported. laparoscopic gastrostomy tube placement (specifically 24 F) Oct discharge planning in place once court appointed DPOA available Acute anemia Acute metabolic, infectious encephalopathy Acute respiratory failure Healthcare associated pneumonia Acute hypoglycemia Hypokalemia Elevated troponins Severe protein malnutrition Morbid obesity AAA, 4 cm, infrarenal History of diabetes mellitus type 2 History of dyslipidemia history of hypertension Patient seen examined bedside. argatroban until warfarin goal INR of 4 and maintenance goal of 2-3. Pending appointing a legal guardian. Patient's chart, labs, images were reviewed and discussed with KARY Cardenas Enteric tube with metallic tip in the left upper quadrant likely in the stomach. Home on plavix and warfarin D/C INITIAL PLAN TO [facility] PENDING/ discharge planning in place once court appointed DPOA available D/W RN 10/25/2020 doing well on trach shield on a 24-hour basis./ blood gases shows no worsening hypercapnia while on trach shield. No apneic breathing reported. laparoscopic gastrostomy tube placement (specifically 24 F) Oct discharge planning in place once court appointed DPOA available Acute anemia Acute metabolic, infectious encephalopathy Acute respiratory failure Healthcare associated pneumonia Acute hypoglycemia Hypokalemia Elevated troponins Severe protein malnutrition Morbid obesity AAA, 4 cm, infrarenal History of diabetes mellitus type 2 History of dyslipidemia history of hypertension Patient seen examined bedside. argatroban until warfarin goal INR of 4 and maintenance goal of 2-3. Pending appointing a legal guardian. Patient's chart, labs, images were reviewed and discussed with KARY Cardenas Enteric tube with metallic tip in the left upper quadrant likely in the stomach. Home on plavix and warfarin D/C INITIAL PLAN TO [facility] PENDING/ discharge planning in place once court appointed DPOA available D/W RN 10/26/2020 HGB 9.4 doing well on trach shield on a 24-hour basis./ blood gases shows no worsening hypercapnia while on trach shield. No apneic breathing reported. laparoscopic gastrostomy tube placement (specifically 24 F) Oct discharge planning in place once court appointed DPOA available Acute anemia Acute metabolic, infectious encephalopathy Acute respiratory failure Healthcare associated pneumonia Acute hypoglycemia Hypokalemia Elevated troponins Severe protein malnutrition Morbid obesity AAA, 4 cm, infrarenal History of diabetes mellitus type 2 History of dyslipidemia history of hypertension Patient seen examined bedside. argatroban until warfarin goal INR of 4 and maintenance goal of 2-3. Pending appointing a legal guardian. Patient's chart, labs, images were reviewed and discussed with KARY Cardenas Enteric tube with metallic tip in the left upper quadrant likely in the stomach. Home on plavix and warfarin D/C INITIAL PLAN TO [facility] PENDING/ discharge planning in place once court appointed DPOA available D/W RN 10/27/2020 HGB 9.4 doing well on trach shield on a 24-hour basis./ blood gases shows no worsening hypercapnia while on trach shield. No apneic breathing reported. laparoscopic gastrostomy tube placement (specifically 24 F) Oct discharge planning in place once court appointed DPOA available Acute anemia Acute metabolic, infectious encephalopathy Acute respiratory failure Healthcare associated pneumonia Acute hypoglycemia Hypokalemia Elevated troponins Severe protein malnutrition Morbid obesity AAA, 4 cm, infrarenal History of diabetes mellitus type 2 History of dyslipidemia history of hypertension Patient seen examined bedside. argatroban until warfarin goal INR of 4 and maintenance goal of 2-3. Pending appointing a legal guardian. Patient's chart, labs, images were reviewed and discussed with KARY Cardenas Enteric tube with metallic tip in the left upper quadrant likely in the stomach. Home on plavix and warfarin D/C INITIAL PLAN TO [facility] PEND[facility]/ discharge planning in place once court appointed DPOA available D/W RN 10/28/2020 HGB 9.4 doing well on trach shield on a 24-hour basis./ blood gases shows no worsening hypercapnia while on trach shield. No apneic breathing reported. laparoscopic gastrostomy tube placement (specifically 24 F) Oct discharge planning in place once court appointed DPOA available Acute anemia Acute metabolic, infectious encephalopathy Acute respiratory failure Healthcare associated pneumonia Acute hypoglycemia Hypokalemia Elevated troponins Severe protein malnutrition Morbid obesity AAA, 4 cm, infrarenal History of diabetes mellitus type 2 History of dyslipidemia history of hypertension Patient seen examined bedside. argatroban until warfarin goal INR of 4 and maintenance goal of 2-3. Pending appointing a legal guardian. Patient's chart, labs, images were reviewed and discussed with KARY Cardenas Enteric tube with metallic tip in the left upper quadrant likely in the stomach. Home on plavix and warfarin D/C INITIAL PLAN TO [facility] PENDING/ discharge planning in place once court appointed DPOA available D/W RN Vitals/I&O Vitals/I&O: Vital Signs Date Time Temp Pulse Resp B/P (MAP) Pulse Ox O2 Delivery O2 Flow Rate FiO2 10/30/20 08:38 82 140/73 10/30/20 08:07 Trach Collar 8.0 10/30/20 07:56 100 10/30/20 07:00 98.2 22 98.2 I & O 10/29/20 10/29/20 10/30/20 15:00 23:00 07:00 Intake Total 60 ml 688 ml Output Total 800 ml 300 ml Balance -740 ml 388 ml Physical Exam Physical Exam: Neuro: actively posturing. Pulpils dialated but reactive to light and accomendation. Flaccidity in the lower extremity bilaterally. Equivocal Babinski. General: Other (actively posturing. No meaningful movements. ) Heart: Regular rate (SR), Other (distatne heart sounds) Lungs: Other (Tracheostomy with trach shield.) Abdomen: Soft, Other (g tube in place) Extremities: No cyanosis, Other (2-3+ bilateral LE pitting edema) Skin: No rashes, No significant lesion Labs Labs: Laboratory Tests Test 10/29/20 12:09 10/29/20 18:03 10/30/20 00:40 10/30/20 04:55 Glucose (Fingerstick) 137 mg/dL (70-99) 132 mg/dL (70-99) 142 mg/dL (70-99) Prothrombin Time 34.0 SEC (11.7-14.0) Prothromb Time International Ratio 3.5 (0.8-1.1) Test 10/30/20 06:07 Glucose (Fingerstick) 159 mg/dL (70-99) Review of Systems Review of Systems: Unobtainable. Assessment and Plan Assessmemt and Plan Problems Medical Problems: (1) NSTEMI (non-ST elevated myocardial infarction) Status: Acute (2) Obtundation Status: Acute (3) Respiratory arrest Status: Acute impression Acute anemia Acute metabolic, infectious encephalopathy Acute respiratory failure Healthcare associated pneumonia Acute hypoglycemia Hypokalemia Elevated troponins Severe protein malnutrition Morbid obesity AAA, 4 cm, infrarenal History of diabetes mellitus type 2 History of dyslipidemia history of hypertension History of recent STEMI History of CAD History of peripheral artery disease History of JEANNE History of CVA History of paroxysmal atrial fibrillation Ischemic cardiomyopathy Plan: Await for neuro input. Continue peg feed. Monitor neurologic status. Cardiac monitoring. Home meds. DVT prophylaxis. DNR Prognosis poor, suspect he qualifies for hospice. Comment Review of Relevant I have reviewed the following items denise (where applicable) has been applied. Medications: Current Medications Medications (Trade) Dose Ordered Sig/Dru Route PRN Reason Start Time Stop Time Status Last Admin Dose Admin Warfarin Sodium (Coumadin) 4 mg 1X WARF ONCE PO 10/29/20 16:00 10/29/20 16:01 DC 10/29/20 16:51 Justifications for Admission Other Justification Hypoglycemia and altered mental status. MANNY THOMASON III DO Oct 30, 2020 10:05
--- NOTE | 2020-10-30 10:44 | PDOC ---
PROGRESS NOTES Date of Service DATE: 10/30/20 TIME: 10:42 Assessment Problems Medical Problems: (1) NSTEMI (non-ST elevated myocardial infarction) Status: Acute (2) Obtundation Status: Acute (3) Respiratory arrest Status: Acute Patient also seen on 10/23 Anoxic encephalopathy Found obtunded at [facility], admitted 09/22, unresponsive, hypoglycemic, no new stroke on MRI CODE BLUE on 09/26 Last admit had prolonged encephalopathy following the development of cardiogenic shock, STEMI, with negative EEG and CT head Remote history of seizures Critical illness neuropathy/myopathy Respiratory failure Last admit and this admit: septic shock, leukocytosis, lactic acidosis, acute kidney injury, 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, thrombocytopenia (heparin-induced), hematuria, anemia, hyperbilirubinemia Status-post tracheostomy on 10/05 Plan Awaiting placement, I understand the current power of finance attorney (?) refuses to sign admission papers DO NOT RESUSCITATE No prognosis for meaningful recovery Neurology will follow at intervals Subjective None Objective Vital Signs Date Time Temp Pulse Resp B/P (MAP) Pulse Ox O2 Delivery O2 Flow Rate FiO2 10/30/20 08:38 82 140/73 10/30/20 08:07 Trach Collar 8.0 10/30/20 07:56 100 10/30/20 07:00 98.2 22 98.2 Intake and Output 10/30/20 07:00 Intake Total 748 ml Output Total 1100 ml Balance -352 ml Intake Oral 0 ml Tube Feeding 748 ml Output Urine Total 1100 ml # Voids 2 PHYSICAL EXAM Trached on BiPAP Eyes fixed and elevation, neck extended, arms flexed, legs extended PERRL. EOMI. CN: no focal findings. Muscle tone: increased Muscle strength: no movements DTR: 1+ Plantar reflex: Silent Gait: not examined Sensory exam: Not testable Cerebellar: not testable Review of Relevant I have reviewed the following items denise (where applicable) has been applied. Labs Laboratory Tests Test 10/28/20 12:03 10/28/20 18:51 10/28/20 23:37 10/28/20 23:42 Glucose (Fingerstick) 164 mg/dL (70-99) 147 mg/dL (70-99) 134 mg/dL (70-99) 143 mg/dL (70-99) Test 10/29/20 05:00 10/29/20 05:15 10/29/20 12:09 10/29/20 18:03 Prothrombin Time 30.5 SEC (11.7-14.0) Prothromb Time International Ratio 3.0 (0.8-1.1) Glucose (Fingerstick) 156 mg/dL (70-99) 137 mg/dL (70-99) 132 mg/dL (70-99) Test 10/30/20 00:40 10/30/20 04:55 10/30/20 06:07 Glucose (Fingerstick) 142 mg/dL (70-99) 159 mg/dL (70-99) Prothrombin Time 34.0 SEC (11.7-14.0) Prothromb Time International Ratio 3.5 (0.8-1.1) Laboratory Tests Test 10/29/20 12:09 10/29/20 18:03 10/30/20 00:40 10/30/20 04:55 Glucose (Fingerstick) 137 mg/dL (70-99) 132 mg/dL (70-99) 142 mg/dL (70-99) Prothrombin Time 34.0 SEC (11.7-14.0) Prothromb Time International Ratio 3.5 (0.8-1.1) Test 10/30/20 06:07 Glucose (Fingerstick) 159 mg/dL (70-99) Medications Current Medications Fentanyl Citrate 30 ml @ 0 mls/hr CONT PRN IV SEE PROTOCOL; Start 09/22/20 at 09:45; Stop 10/13/20 at 09:24; Status DC Propofol 100 ml @ 0 mls/hr CONT PRN IV PER PROTOCOL Last administered on 09/22/20at 10:30; Start 09/22/20 at 09:45; Stop 09/26/20 at 20:12; Status DC Fentanyl Citrate (Fentanyl 2ml Vial) 25 mcg PRN Q1HR PRN IV SEE COMMENTS; Start 09/22/20 at 09:45; Stop 10/24/20 at 18:57; Status DC Fentanyl Citrate (Fentanyl 2ml Vial) 50 mcg PRN Q1HR PRN IV SEE COMMENTS Last administered on 10/03/20at 01:22; Start 09/22/20 at 09:45; Stop 10/24/20 at 18:57; Status DC Chlorhexidine Gluconate (Peridex) 15 ml BID MM ; Start 09/22/20 at 10:00; Stop 09/22/20 at 19:54; Status DC Midazolam HCl (Versed) 2 mg 1X ONCE IV ; Start 09/22/20 at 10:30; Stop 09/22/20 at 10:31; Status DC Iohexol (Omnipaque 300 Mg/ml) 75 ml 1X ONCE IV Last administered on 09/22/20at 11:06; Start 09/22/20 at 10:45; Stop 09/22/20 at 10:46; Status DC Info (CONTRAST GIVEN -- Rx MONITORING) 1 each PRN DAILY PRN MC SEE COMMENTS; Start 09/22/20 at 10:45; Stop 09/24/20 at 10:44; Status DC Potassium Chloride/Water 100 ml @ 100 mls/hr Q1H IV Last administered on 09/22/20at 20:27; Start 09/22/20 at 15:00; Stop 09/22/20 at 18:59; Status DC Cefepime HCl (Maxipime) 1 gm Q8HRS IVP Last administered on 09/29/20at 05:52; Start 09/22/20 at 14:00; Stop 09/29/20 at 10:32; Status DC Sennosides (Senna) 17.2 mg PRN BID PRN PO CONSTIPATION; Start 09/22/20 at 14:00 Docusate Sodium (Colace) 100 mg PRN DAILY PRN PO HARD STOOLS; Start 09/22/20 at 14:00; Stop 09/22/20 at 14:00; Status DC Ondansetron HCl (Zofran) 4 mg PRN Q6HRS PRN IVP NAUSEA/VOMITING, 1ST CHOICE; Start 09/22/20 at 14:00 Insulin Human Lispro (HumaLOG) 0-7 UNITS Q6HRS SQ Last administered on 10/30/20at 06:18; Start 09/22/20 at 18:00 Dextrose (Dextrose 50%-Water Syringe) 12.5 gm PRN Q15MIN PRN IV SEE COMMENTS Last administered on 09/22/20at 17:47; Start 09/22/20 at 14:00 Dextrose/Sodium Chloride 1,000 ml @ 50 mls/hr Q20H IV Last administered on 10/12/20at 11:04; Start 09/22/20 at 14:00; Stop 10/13/20 at 09:24; Status DC Acetaminophen (Tylenol) 650 mg PRN Q4HRS PRN PO TEMP OVER 100.4F OR MILD PAIN Last administered on 09/23/20at 00:20; Start 09/22/20 at 14:00; Stop 09/23/20 at 16:24; Status DC Enoxaparin Sodium (Lovenox 40mg Syringe) 40 mg Q24H SQ ; Start 09/22/20 at 14:00; Status UNV Pantoprazole Sodium (PROTONIX VIAL for IV PUSH) 40 mg DAILY IVP Last administered on 10/30/20at 08:39; Start 09/23/20 at 09:00 Prochlorperazine Edisylate (Compazine) 10 mg PRN Q6HRS PRN IV NAUSEA/VOMITING, 2ND CHOICE; Start 09/22/20 at 14:00 Etomidate (Amidate) 20 mg STK-MED ONCE IV ; Start 09/22/20 at 17:46; Stop 09/22/20 at 17:46; Status DC Rocuronium [place] (Zemuron) 50 mg STK-MED ONCE .ROUTE ; Start 09/22/20 at 17:46; Stop 09/22/20 at 17:47; Status DC Norepinephrine Bitartrate 8 mg/ Dextrose 258 ml @ 21.769 mls/ hr CONT PRN IV PER PROTOCOL Last administered on 09/24/20at 13:20; Start 09/22/20 at 18:15; Stop 10/13/20 at 09:24; Status DC Potassium Chloride/Water 100 ml @ 100 mls/hr Q1H IV Last administered on 09/23/20at 14:30; Start 09/23/20 at 07:00; Stop 09/23/20 at 14:59; Status DC Acetaminophen (Tylenol) 650 mg PRN Q6HRS PRN PEG MILD PAIN / TEMP > 100.3'F Last administered on 10/29/20at 09:35; Start 09/23/20 at 16:30 Warfarin Sodium (Coumadin Per Pharmacy) 1 each PRN DAILY PRN MC SEE COMMENTS Last administered on 10/01/20at 12:32; Start 09/24/20 at 12:30; Stop 10/02/20 at 05:55; Status DC Warfarin Sodium (Coumadin) 5 mg 1X WARF ONCE PO Last administered on 09/24/20at 17:42; Start 09/24/20 at 16:00; Stop 09/24/20 at 16:01; Status DC Warfarin Sodium (Coumadin - No Dose Today) 1 each 1X WARF ONCE MC ; Start 09/25/20 at 16:00; Stop 09/25/20 at 16:01; Status DC Warfarin Sodium (Coumadin) 1 mg 1X WARF ONCE PO Last administered on 09/26/20at 16:00; Start 09/26/20 at 16:00; Stop 09/26/20 at 16:01; Status DC Propofol 100 ml @ 3.174 mls/ hr CONT PRN IV PER PROTOCOL Last administered on 10/09/20at 04:43; Start 09/26/20 at 20:15; Stop 10/13/20 at 09:24; Status DC Atropine Sulfate (ATROPINE 1mg SYRINGE) 1 mg STK-MED ONCE .ROUTE ; Start 09/25/20 at 10:00; Stop 09/27/20 at 08:20; Status DC Epinephrine HCl (EPINEPHrine SYRINGE) 1 mg STK-MED ONCE .ROUTE ; Start 09/25/20 at 10:00; Stop 09/27/20 at 08:20; Status DC Warfarin Sodium (Coumadin) 2 mg 1X WARF ONCE PO Last administered on 09/27/20at 17:53; Start 09/27/20 at 16:00; Stop 09/27/20 at 16:01; Status DC Aspirin (Aspirin Chewable) 81 mg DAILYWBKFT PO Last administered on 10/06/20at 11:39; Start 09/27/20 at 09:30; Stop 10/06/20 at 16:23; Status DC Clopidogrel Bisulfate (Plavix) 75 mg DAILYWBKFT PO Last administered on 10/09/20at 09:24; Start 09/27/20 at 09:30; Stop 10/09/20 at 17:03; Status DC Potassium Chloride/Water 100 ml @ 100 mls/hr Q1H IV Last administered on 09/27/20at 12:45; Start 09/27/20 at 11:30; Stop 09/27/20 at 13:29; Status DC Warfarin Sodium (Coumadin) 3 mg 1X WARF ONCE PO Last administered on 09/28/20at 18:18; Start 09/28/20 at 16:00; Stop 09/28/20 at 16:01; Status DC Cefepime HCl (Maxipime) 2 gm Q8HRS IVP Last administered on 10/20/20at 05:36; Start 09/29/20 at 14:00; Stop 10/20/20 at 13:23; Status DC Warfarin Sodium (Coumadin) 3 mg 1X WARF ONCE PO Last administered on 09/29/20at 16:55; Start 09/29/20 at 16:00; Stop 09/29/20 at 16:01; Status DC Warfarin Sodium (Coumadin) 3 mg 1X WARF ONCE PO Last administered on 09/30/20at 16:00; Start 09/30/20 at 16:00; Stop 09/30/20 at 16:01; Status DC Warfarin Sodium (Coumadin) 5 mg 1X WARF ONCE PO Last administered on 10/01/20at 16:35; Start 10/01/20 at 16:00; Stop 10/01/20 at 16:01; Status DC Multi-Ingred Cream/Lotion/Oil/ Oint (Artificial Tears Eye Ointment) 1 sudheer PRN Q1HR PRN OU DRY EYE Last administered on 10/03/20at 12:24; Start 10/02/20 at 12:45 Fentanyl Citrate (Fentanyl 2ml Vial) 25 mcg PRN Q5MIN PRN IVP MILD PAIN 1-3; Start 10/05/20 at 06:00; Stop 10/06/20 at 05:59; Status DC Fentanyl Citrate (Fentanyl 2ml Vial) 50 mcg PRN Q5MIN PRN IVP MODERATE PAIN 4- 6; Start 10/05/20 at 06:00; Stop 10/06/20 at 05:59; Status DC Morphine Sulfate (Morphine Sulfate) 1 mg PRN Q10MIN PRN IVP SEVERE PAIN 7-10; Start 10/05/20 at 06:00; Stop 10/06/20 at 05:59; Status UNV Ringer's Solution 1,000 ml @ 30 mls/hr Q24H IV ; Start 10/05/20 at 06:00; Stop 10/05/20 at 17:59; Status DC Hydromorphone HCl (Dilaudid) 0.5 mg PRN Q10MIN PRN IVP SEVERE PAIN 7-10, 2nd CHOICE; Start 10/05/20 at 06:00; Stop 10/06/20 at 05:59; Status UNV Prochlorperazine Edisylate (Compazine) 5 mg PACU PRN PRN IVP NAUSEA, MRX1; Start 10/05/20 at 06:00; Stop 10/06/20 at 05:59; Status DC Bupivacaine HCl/ Epinephrine Bitart (Sensorcain-Epi 0.5%-1:697910 Mpf) 30 ml STK-MED ONCE .ROUTE Last administered on 10/05/20at 10:09; Start 10/05/20 at 07:12; Stop 10/05/20 at 07:12; Status DC Cellulose (Surgicel Fibrillar 1x2) 1 each STK-MED ONCE .ROUTE Last administered on 10/05/20at 10:30; Start 10/05/20 at 07:12; Stop 10/05/20 at 07:12; Status DC Rocuronium [place] (Zemuron) 50 mg STK-MED ONCE .ROUTE ; Start 10/05/20 at 09:06; Stop 10/05/20 at 09:06; Status DC Rocuronium [place] (Zemuron) 50 mg STK-MED ONCE .ROUTE ; Start 10/05/20 at 10: 10; Stop 10/05/20 at 10:10; Status DC Warfarin Sodium (Coumadin Per Pharmacy) 1 each PRN DAILY PRN MC SEE COMMENTS Last administered on 10/06/20at 09:32; Start 10/05/20 at 14:00; Stop 10/06/20 at 16:23; Status DC Argatroban (Argatroban Per Pharmacy) 1 each PRN DAILY PRN MC SEE COMMENTS Last administered on 10/13/20at 16:34; Start 10/05/20 at 14:00; Stop 10/24/20 at 09:37; Status DC Argatroban 50 mg/ Sodium Chloride 50 ml @ 6.48 mls/hr CONT PRN IV ADJUST PER PTT; Start 10/05/20 at 14:00; Stop 10/05/20 at 13:59; Status DC Argatroban 50 mg/ Sodium Chloride 50 ml @ 6.48 mls/hr CONT PRN IV ADJUST PER PTT; Start 10/06/20 at 00:00; Status Cancel Warfarin Sodium (Coumadin) 5 mg 1X WARF ONCE PO Last administered on 10/05/20at 21:23; Start 10/05/20 at 16:00; Stop 10/05/20 at 16:01; Status DC Argatroban 50 mg/ Sodium Chloride 50 ml @ 0 mls/hr CONT PRN IV PER PROTOCOL Last administered on 10/19/20at 22:13; Start 10/06/20 at 09:00; Stop 10/20/20 at 13:02; Status DC Warfarin Sodium (Coumadin) 5 mg 1X WARF ONCE PO ; Start 10/06/20 at 16:00; Stop 10/06/20 at 16:01; Status Cancel Amiodarone HCl (Cordarone) 400 mg DAILY PO Last administered on 10/30/20at 08:36; Start 10/06/20 at 10:00 Atorvastatin Calcium (Lipitor) 40 mg QHS PO Last administered on 10/29/20at 21:34; Start 10/06/20 at 21:00 Metoprolol Tartrate (Lopressor) 25 mg BID PO Last administered on 10/30/20at 08:38; Start 10/06/20 at 10:00 Furosemide (Lasix) 40 mg DAILY IVP Last administered on 10/30/20at 08:39; Start 10/06/20 at 10:00 Potassium Bicarbonate (Potassium Effervescent Tablet) 20 meq DAILY PEG Last administered on 10/30/20at 08:36; Start 10/06/20 at 10:00 Tirofiban/Sodium Chloride 100 ml @ 0 mls/hr CONT PRN IV PER PROTOCOL Last administered on 10/11/20at 14:11; Start 10/09/20 at 17:00; Stop 10/11/20 at 20:21; Status DC Albumin Human 100 ml @ 100 mls/hr 1X ONCE IV Last administered on 10/12/20at 15:22; Start 10/12/20 at 14:00; Stop 10/12/20 at 14:59; Status DC Furosemide (Lasix) 40 mg 1X ONCE IVP Last administered on 10/12/20at 15:22; Start 10/12/20 at 15:00; Stop 10/12/20 at 15:01; Status DC Aspirin (Aspirin Chewable) 81 mg 1X ONCE PO Last administered on 10/13/20at 12:25; Start 10/13/20 at 10:30; Stop 10/13/20 at 10:31; Status DC Aspirin (Aspirin Chewable) 81 mg DAILYWBKFT PO Last administered on 10/30/20at 08:37; Start 10/14/20 at 08:00 Fentanyl Citrate (Fentanyl 2ml Vial) 25 mcg PRN Q5MIN PRN IVP MILD PAIN 1-3; Start 10/18/20 at 06:00; Stop 10/18/20 at 20:00; Status DC Ringer's Solution 1,000 ml @ 30 mls/hr Q24H IV Last administered on 10/18/20at 06:00; Start 10/18/20 at 06:00; Stop 10/18/20 at 17:59; Status DC Bupivacaine HCl/ Epinephrine Bitart (Sensorcain-Epi 0.5% Kit) 30 ml STK-MED ONCE .ROUTE Last administered on 10/18/20at 11:04; Start 10/18/20 at 10:23; Stop 10/18/20 at 10:24; Status DC Rocuronium [place] (Zemuron) 50 mg STK-MED ONCE .ROUTE ; Start 10/18/20 at 10:48; Stop 10/18/20 at 10:48; Status DC Sevoflurane (Ultane) 60 ml STK-MED ONCE IH ; Start 10/18/20 at 11:13; Stop 10/18/20 at 11:13; Status DC Fentanyl Citrate (Fentanyl 2ml Vial) 100 mcg STK-MED ONCE .ROUTE ; Start 10/18/20 at 11:14; Stop 10/18/20 at 11:14; Status DC Phenylephrine HCl (PHENYLEPHRINE in 0.9% NACL PF) 1 mg STK-MED ONCE IV ; Start 10/18/20 at 11:55; Stop 10/18/20 at 11:56; Status DC Argatroban (Argatroban Per Pharmacy) 1 each PRN DAILY PRN MC SEE COMMENTS; Start 10/19/20 at 10:30; Status UNV Clopidogrel Bisulfate (Plavix) 75 mg DAILYWBKFT PO Last administered on 10/30/20at 08:39; Start 10/19/20 at 14:00 Warfarin Sodium (Coumadin Per Pharmacy) 1 each PRN DAILY PRN MC SEE COMMENTS Last administered on 10/28/20at 13:31; Start 10/19/20 at 13:15 Warfarin Sodium (Coumadin) 5 mg 1X WARF ONCE PO Last administered on 10/19/20at 15:24; Start 10/19/20 at 16:00; Stop 10/19/20 at 16:01; Status DC Warfarin Sodium (Coumadin) 5 mg 1X WARF ONCE PO Last administered on 10/20/20at 19:10; Start 10/20/20 at 16:00; Stop 10/20/20 at 16:01; Status DC Argatroban 50 mg/ Sodium Chloride 50 ml @ 0 mls/hr CONT PRN IV PER PROTOCOL Last administered on 10/24/20at 01:10; Start 10/20/20 at 13:15; Stop 10/24/20 at 09:37; Status DC Warfarin Sodium (Coumadin) 6 mg 1X WARF ONCE PO Last administered on 10/21/20at 17:56; Start 10/21/20 at 16:00; Stop 10/21/20 at 16:01; Status DC Warfarin Sodium (Coumadin) 7.5 mg 1X WARF ONCE PO Last administered on 10/22/20at 17:45; Start 10/22/20 at 16:00; Stop 10/22/20 at 16:01; Status DC Warfarin Sodium (Coumadin) 6 mg 1X WARF ONCE PO Last administered on 10/23/20at 17:05; Start 10/23/20 at 16:00; Stop 10/23/20 at 16:01; Status DC Warfarin Sodium (Coumadin) 4 mg 1X WARF ONCE PO ; Start 10/24/20 at 16:00; Stop 10/24/20 at 10:45; Status DC Warfarin Sodium (Coumadin) 4 mg 1X WARF ONCE PO Last administered on 10/24/20at 17:52; Start 10/24/20 at 16:00; Stop 10/24/20 at 16:01; Status DC Warfarin Sodium (Coumadin) 5 mg 1X WARF ONCE PO Last administered on 10/25/20at 16:51; Start 10/25/20 at 16:00; Stop 10/25/20 at 16:01; Status DC Warfarin Sodium (Coumadin) 6 mg 1X WARF ONCE PO Last administered on 10/26/20at 17:24; Start 10/26/20 at 16:00; Stop 10/26/20 at 16:01; Status DC Alteplase, Recombinant (Cathflo For Central Catheter Clearance) 1 mg 1X ONCE INT CAT Last administered on 10/26/20at 21:50; Start 10/26/20 at 18:30; Stop 10/26/20 at 18:31; Status DC Warfarin Sodium (Coumadin) 6 mg 1X WARF ONCE PO Last administered on 10/27/20at 16:00; Start 10/27/20 at 16:00; Stop 10/27/20 at 16:01; Status DC Warfarin Sodium (Coumadin) 5 mg 1X WARF ONCE PO Last administered on 10/28/20at 18:32; Start 10/28/20 at 16:00; Stop 10/28/20 at 16:01; Status DC Warfarin Sodium (Coumadin) 4 mg 1X WARF ONCE PO Last administered on 10/29/20at 16:51; Start 10/29/20 at 16:00; Stop 10/29/20 at 16:01; Status DC Active Scripts Active Amiodarone Hcl 200 Mg Tablet 400 Mg PO DAILY 90 Days [Warfarin Per Pharmacy] 1 EACH Each 1 Each MC PRN DAILY PRN 30 Days Clopidogrel (Clopidogrel Bisulfate) 75 Mg Tablet 75 Mg PO DAILYWBKFT 90 Days Humalog (Insulin Lispro) 100 Unit/1 Ml Insuln.pen 0 Units SQ TIDWMEALS 30 Days Duoneb 0.5-3(2.5) Mg/3 Ml (Albuterol/Ipratropium) 3 Ml Ampul.neb 3 Ml NEB RTQID 30 Days Aspirin 325 Mg Tablet 325 Mg PO DAILYWBKFT 30 Days Metoprolol Tartrate 25 Mg Tablet 25 Mg PO BID 30 Days Montelukast Sodium Tablet (Montelukast Sodium) 10 Mg Tablet 10 Mg PO QHS Gabapentin 600 Mg Tablet 600 Mg PO BID 30 Days Reported Glimepiride 4 Mg Tablet 1 Tab PO DAILY Furosemide 40 Mg Tablet 1 Tab PO BID Symbicort 160-4.5 Mcg Inhaler (Budesonide/Formoterol Fumarate) 10.2 Gm Hfa.aer.ad 1 Puff INH DAILY Losartan-Hctz 100-12.5 Mg Tab (Losartan/Hydrochlorothiazide) 1 Each Tablet 1 Tab PO DAILY Nitrofurantoin [place]-Mcr 100 Mg (Nitrofurantoin Monohyd/M-Cryst) 100 Mg Capsule 1 Cap PO BID Betamethasone Valerate 60 Ml Lotion 1 TP QHS Atorvastatin Calcium 40 Mg Tablet 1 Tab PO DAILY Diltiazem 24Hr Cd (Diltiazem HCl) 240 Mg Cap.er.24h 1 Cap PO DAILY Nystop (Nystatin) 60 Gm Powder 1 Sudheer TP BID Pepcid (Famotidine) 20 Mg Tablet 20 Mg PO BID Vitals/I & O Vital Sign - Last 24 Hours 10/29/20 10/29/20 10/29/20 10/29/20 11:00 12:15 15:00 15:38 Temp 98.0 98.6 98.0 98.6 Pulse 76 75 Resp 18 18 B/P (MAP) 100/63 (75) 111/56 (74) Pulse Ox 100 100 100 98 O2 Delivery trach shield Tracheal Collar trach shield Tracheal Collar O2 Flow Rate 8.0 8.0 8.0 10/29/20 10/29/20 10/29/20 10/29/20 19:00 19:03 20:00 20:00 Temp 99.3 99.3 Pulse 84 Resp 18 B/P (MAP) 127/63 (84) Pulse Ox 100 98 O2 Delivery trach shield Tracheal Collar Trach Collar O2 Flow Rate 8.0 8.0 8.0 8.0 10/29/20 10/29/20 10/30/20 10/30/20 21:33 23:00 00:00 01:04 Temp 99.0 99.0 Pulse 84 75 Resp 26 B/P (MAP) 127/63 125/67 (86) Pulse Ox 100 100 O2 Delivery BiPAP/CPAP Ventilator O2 Flow Rate 8.0 10/30/20 10/30/20 10/30/20 10/30/20 03:00 04:00 04:37 07:00 Temp 98.8 98.2 98.8 98.2 Pulse 82 82 Resp 22 22 B/P (MAP) 147/75 (99) 140/73 (95) Pulse Ox 100 100 100 O2 Delivery BiPAP/CPAP Ventilator BiPAP/CPAP O2 Flow Rate 8.0 10/30/20 10/30/20 10/30/20 10/30/20 07:43 07:56 08:07 08:36 Pulse 82 B/P (MAP) 140/73 Pulse Ox 100 100 O2 Delivery Ventilator Tracheal Collar Trach Collar O2 Flow Rate 8.0 8.0 10/30/20 08:38 Pulse 82 B/P (MAP) 140/73 Intake and Output 10/29/20 10/29/20 10/30/20 15:00 23:00 07:00 Intake Total 60 ml 688 ml Output Total 800 ml 300 ml Balance -740 ml 388 ml Justicifation of Admission Dx: Justifications for Admission: Justification of Admission Dx: Yes CHF: Cardiac Arrhythmias RAFAEL REINOSO MD Oct 30, 2020 10:44
[2020-10-30 11:00] VITALS: BP 112/64
--- NOTE | 2020-10-30 13:46 | NUR ---
SS following up with discharge planning. SS reviewed pt chart and discussed with pt RN. Pt is currently on trach shield at 8 liters and BIPAP PRN at 35%. G tube in place. COVID19 negative. Unresponsive. Pt was declined at [facility] due to being too medically complex for fci unit. LTACH facilities requesting that pt have DPOA or Guardian prior to accepting for admission. SS contacted [facility] and they reported that they would need DPOA or Guardianship in order to accept as well. Pt has no family or kinship to accept responsibility. Case electronic maintenance supervisor aware of need for DPOA or Guardianship. Hospice recommended but pt needing DPOA or Guardian to sign consents as well. SS will continue to follow for discharge planning.
--- NOTE | 2020-10-30 14:47 | NUR ---
Pharmacy Warfarin Dosing Note S: Pharmacy consulted to assist with anticoagulation therapy O: DEMETRICE HOWE is a 70 year old M with Atrial Fibrillation,DVT/PE, HIT LABS: Last INR: 3.5 Last HGB: 9.2 Last HCT: 27.9 Last PLT: 266 Last dose of 4 mg given on 10/29/20 at 1651 Vitamin K given: N Ongoing Drug Interactions: amiodarone A:INR of 3.5 is above desired range. Target range for this patient is: 2 -3 P: Warfarin dose: Hold DOSE TODAY Bridge Therapy: NONE Next INR due TOMORROW Pharmacy anticoagulation service will continue to follow. Roseline Varela RPH, 10/30/20 [id number]
[2020-10-30 15:00] VITALS: BP 114/65
[2020-10-30 19:23] VITALS: BP 140/86
[2020-10-30] MEDS: ATORVASTATIN CALCIUM 40 MG TABLET. PO SCH (20:47)
[2020-10-30 22:50] VITALS: BP 118/74
[2020-10-31 02:39] VITALS: BP 129/72
[2020-10-31] MEDS: INSULIN LISPRO 300 UNITS/3 ML VIAL. SQ SCH ×4 (06:00→18:00)
[2020-10-31 06:15] LABS: PROTHROMBIN TIME PATIENT 27.3 SEC (11.7-14.0)
[2020-10-31 07:00] VITALS: BP 125/71
[2020-10-31] MEDS: CLOPIDOGREL BISULFATE 75 MG TABLET PO SCH (10:11)
[2020-10-31] MEDS: PANTOPRAZOLE IV PUSH 40 MG VIAL. IVP SCH (10:11)
[2020-10-31] MEDS: POTASSIUM BICARB 20 MEQ EFFERVESCENT TABLET. PEG SCH (10:11)
[2020-10-31] MEDS: ASPIRIN CHEWABLE 81 MG TABLET. PO SCH (10:11)
[2020-10-31] MEDS: METOPROLOL TART IMMED RELEASE 25 MG TABLET. PO SCH ×2 (10:11→20:28)
[2020-10-31] MEDS: AMIODARONE HCL 200 MG TABLET. PO SCH (10:14)
[2020-10-31] MEDS: FUROSEMIDE 40 MG/4 ML VIAL. IVP SCH (10:15)
[2020-10-31 10:44] VITALS: BP 127/73
--- NOTE | 2020-10-31 12:33 | NUR ---
SS following up with discharge planning. SS reviewed pt chart and discussed with pt RN. Pt is currently on trach shield at 8 liters and BIPAP PRN at 35%. G tube in place. COVID19 negative. Unresponsive. Pt was declined at [facility] due to being too medically complex for longterm unit. LTACH facilities requesting that pt have DPOA or Guardian prior to accepting for admission. SS contacted [facility] and they reported that they would need DPOA or Guardianship in order to accept as well. Pt has no family or kinship to accept responsibility. Case film editor supervisor aware of need for DPOA or Guardianship. Hospice recommended but pt needing DPOA or Guardian to sign consents as well. SS will continue to follow for discharge planning.
--- NOTE | 2020-10-31 12:50 | PDOC ---
[employer] PROGRESS NOTE Date of Service DOS: DATE: 10/31/20 TIME: 12:44 Chief Complaint Chief Complaint Acute anemia Acute metabolic, infectious encephalopathy Acute respiratory failure Healthcare associated pneumonia Acute hypoglycemia Hypokalemia Elevated troponins Severe protein malnutrition Morbid obesity AAA, 4 cm, infrarenal History of diabetes mellitus type 2 History of dyslipidemia history of hypertension History of recent STEMI History of CAD History of peripheral artery disease History of JEANNE History of CVA History of paroxysmal atrial fibrillation Ischemic cardiomyopathy History of Present Illness History of Present Illness 10/31/2020 Patient seen and examined. Chart reviewed. Discussed with transition social worker and RN. Patient still unresponsive. Patient actively posturing at bed side. Has peg running at 45cc/hr. Vestibulo-ocular reflex intact. 10/30/2020 Patient seen and examined. Discussed with transition social worker and RN. Chart reviewed. Patient actively posturing at bed side. Has peg running at 45cc/hr. Mr Andrews is a 70-year-old male with a recent prolonged hospitalization for STEMI and respiratory failure for which she was treated with arterial thrombolysis for a right leg popliteal artery aneurysm and also had left heart cath with placement of a stent in the LAD and RCA comes in today after he was found obtunded at his assisted facility. Apparently according to the nursing facility patient was in his usual state of health and he was conversational but then became altered. His blood glucose was found to be in the 30s. Glucose tabs and glucagon was given in route and his GCS reported at 6. Upon arrival patient's mental status did not improve and he was eventually intubated for airway protection. Of note EMS was bagging the patient through the nasal access. In the ED, patient was placed on a vent and pulmonology was consulted. Patient was also taken to the CT scanner for sanders scanning. Patient was started to wake up on the vent and sedation was ordered. 09/23: Patient examined at bedside. Intubated. Not on any sedation but unresponsive. Neurology consult in place. 09/24: Patient seen and examined at bedside. Remains intubated he is off sedation but still remains unresponsive. Planning for MRI brain in the morning. Further plan to be determined by MRI. 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 09/25: Afebrile, currently breathing on ventilator with FiO2 50%, PEEP 5. Had CODE BLUE in ICU this morning; received 2 rounds of CPR, epinephrine, and atropine with ROSC. MRI brain negative. Made DNR, and after discussion with Dr. Rubalcava he agrees. 09/26:: Afebrile. Still on vent, with FiO2 45%, PEEP 5. After discussion with Dr. Rubalcava yesterday, patient was made DNR. In the ED is likely a poor candidate for weaning trials may need trach in near future if no significant improvement. 09/27:: Afebrile. On vent with FiO2 40%, PEEP 5. Potassium 2.8 today, will replace. Warfarin has been resumed. Discussed with pharmacy, will resume aspirin and Plavix. May need tracheostomy by the end of the week if no improvement in mental status. 09/28:: Afebrile. On ventilator with FiO2 40%, PEEP 5. Warfarin has been resu med; INR 1.3 today. Some morning labs still pending; hemoglobin yesterday 7.3, will continue to monitor. Continue IV cefepime and supportive care. 09/29: Afebrile. Breathing on vent with FiO2 40%, PEEP 5. INR 1.2 today; pharmacy to help with warfarin dosing. White count within normal range, renal function stable. Spoke with pharmacy about cefepime 1 g every 8 hours dosing; this has been changed to cefepime 2 g every 8 hours. 09/30: Afebrile. Currently breathing on vent with FiO2 40%, PEEP 5. Continue antibiotics, cefepime 2 g every 8 hours. INR 1.4; continue warfarin dosing per pharmacy. Possible tracheostomy at some point. Critical care time 30 minutes reviewing charts, labs, examination, discussion with RN. 10/01: T-max 100.3 F. On ventilator with FiO2 40%, PEEP 5. Continue antibiotics, cefepime 2 g every 8 hours. INR 1.4, still subtherapeutic; continue warfarin dosing per pharmacy. Possible tracheostomy at some point. 10/02: No acute events overnight. Patient saturating 99% on vent settings of 10 /450/40/5. Patient will likely need a trach and PEG at some point. We will hold warfarin and start 2 units PRBC transfusion. Patient's chart, labs, images were reviewed and discussed with RN 10/03: No acute events overnight. Patient sat 100% on minimal vent settings. No sedation at this point and patient is opening his eyes spontaneously. Not much response or spontaneous movements. Surgery has been consulted for tracheostomy. Patient will also likely need a PEG tube. 10/04: No acute events overnight. Patient saturating 90% on minimal vent settings. T-max 100.4 overnight. Plan for trach tomorrow with surgery. Patient's chart, labs, images were reviewed and discussed with RN 10/05: No acute events overnight. Patient saturating 99% on minimal vent s ettings. Plan for tracheostomy today. Consent is provided by authorization by 2 physicians due to patient having no close relatives or DPOA. Will resume heparin and warfarin bridging tomorrow after tracheostomy 10/07: No acute events overnight. Patient seen and examined bedside. On trach vent. Saturating 99%. Pending GI evaluation for possible PEG placement after discussing with cardiology whether to continue with Plavix. Possibly place PEG if patient is only on aspirin and stopping argatroban. 10/08: No acute events overnight. Patient continues to be on trach mechanical vent. Saturating 100%. Pending decision from GI whether to proceed with PEG placement depending on the type of anticoagulation patient will be on. 10/09: No overnight events. On trach with vent support 40% FiO2 PEEP of 5. Currently argatroban and propofol for minimal sedation. When sedation is weaned he has no meaningful movements but has pulled at his tracheostomy site. Unable to hold plavix due to recently placed stents. 10/10: Afebrile today. On trach with vent support 40% FiO2 PEEP of 5. Continue argatroban and changed to Aggrastat in anticipation of surgical consultation for potential laparoscopic PEG placement. INR 1.6. Hb greater than 9 no significant neurologic recovery today. 10/11: Afebrile. On trach with vent support 40% FiO2 PEEP of 5. INR 1.8. Not making meaningful eye contact. Labs otherwise stable. 10/12: Afebrile. Trach with vent support 40% FiO2 PEEP five O2 saturations 92%. INR 1.8, mag 1.8, Hb 8.4. Not following commands. Tentative plans for surgical PEG next week. 10/13: Afebrile. Trach with vent support 40% FiO2 PEEP 5. Eyes open, not tracking or following commands. Holding Plavix. On argatroban. 10/14: Afebrile. Trach with vent support 40% FiO2 PEEP of 5. Will open eyes intermittently not necessarily to voice. Good urine output. Labs stable. 10/15: Afebrile overnight. Trach with vent AC 40% fio2 PEEP 5. Had a very large bowel movement. Still not tracking. Hb 9, INR 1.7, glucose 144. Tentative plan for PEG 10/18/2020 CC time 30 minutes 10/16/20: Patient seen and examined in the ICU. He was resting and still on vent via trach. Has NG running via Dobhoff, feeding at 40cc/hr. AC/10/450/40% plus 5 PEEP. Discussed with RN. Chart reviewed. 10/17/20: Patient was seen and examined in the ICU today. Still on vent via trach at AC/10/450/40 plus 5 PEEP. While examined, patient was at 100% O2 saturation. Has SCDs on for DVT prophylaxis. Stauffer catheter in place. On IV argatroban. R subclavian triple lumen in place. Dobhoff running at 40cc/hr. Discussed with RN. Chart reviewed. 10/18/20: Patient seen and examined in ICU. His eyes are open. On vent via trach with settings that were recently changed to spontaneous respirations with FiO2 of 40 and 5 PEEP. Trach is clean and dry. Currently, oxygen saturation is at 100%. Stauffer to bedside and rectal bag in place. Discussed with RN. Chart revie fri. 10/19/20: Patient was seen and examined in the ICU today. His eyes were open and he was resting. On BiPAP via trach AVAPS/10/450/40 plus 5 PEEP. Trach is clean and dry. Has SCDs for DVT prophylaxis. Patient has rectal bag, Stauffer to bedside, and NG tube in place. Discussed with RN. Chart reviewed. 10/20/20 No acute events overnight. Patient seen and examined bedside. Transferred from the ICU. Continues to be nonverbal and not following much commands. Opens eyes to voice. Currently on BiPAP via trach on AVAPS setting 10/450/40 PEEP of 5. Trach site is clear. No signs of infections. Patient's chart, labs, images were reviewed and discussed with RN 10/21/2020 No acute events overnight. Patient seen and examined bedside. Afebrile. Tonie nues to be nonverbal but opens eyes to voice. Currently on BiPAP. Patient's chart, labs, images were reviewed and discussed with RN. 10/22/2020 No acute events overnight. Patient seen examined bedside. Continue with argatroban until warfarin goal INR of 4 and maintenance goal of 2-3. Please see supervisor coremaker note. Pending appointing a legal guardian. Patient's chart, labs, images were reviewed and discussed with RN 10/23/2020 laparoscopic gastrostomy tube placement (specifically 24 F) Oct discharge planning in place once court appointed DPOA available Acute anemia Acute metabolic, infectious encephalopathy Acute respiratory failure Healthcare associated pneumonia Acute hypoglycemia Hypokalemia Elevated troponins Severe protein malnutrition Morbid obesity AAA, 4 cm, infrarenal History of diabetes mellitus type 2 History of dyslipidemia history of hypertension Patient seen examined bedside. argatroban until warfarin goal INR of 4 and maintenance goal of 2-3. Pending appointing a legal guardian. Patient's chart, labs, images were reviewed and discussed with KARY Cardenas Enteric tube with metallic tip in the left upper quadrant likely in the stomach. 10/24/2020 doing well on trach shield on a 24-hour basis./ blood gases shows no worsening hypercapnia while on trach shield. No apneic breathing reported. laparoscopic gastrostomy tube placement (specifically 24 F) Oct discharge planning in place once court appointed DPOA available Acute anemia Acute metabolic, infectious encephalopathy Acute respiratory failure Healthcare associated pneumonia Acute hypoglycemia Hypokalemia Elevated troponins Severe protein malnutrition Morbid obesity AAA, 4 cm, infrarenal History of diabetes mellitus type 2 History of dyslipidemia history of hypertension Patient seen examined bedside. argatroban until warfarin goal INR of 4 and maintenance goal of 2-3. Pending appointing a legal guardian. Patient's chart, labs, images were reviewed and discussed with KARY Cardenas Enteric tube with metallic tip in the left upper quadrant likely in the stomach. Home on plavix and warfarin D/C INITIAL PLAN TO [facility] PENDING/ discharge planning in place once court appointed DPOA available D/W RN 10/25/2020 doing well on trach shield on a 24-hour basis./ blood gases shows no worsening hypercapnia while on trach shield. No apneic breathing reported. laparoscopic gastrostomy tube placement (specifically 24 F) Oct discharge planning in place once court appointed DPOA available Acute anemia Acute metabolic, infectious encephalopathy Acute respiratory failure Healthcare associated pneumonia Acute hypoglycemia Hypokalemia Elevated troponins Severe protein malnutrition Morbid obesity AAA, 4 cm, infrarenal History of diabetes mellitus type 2 History of dyslipidemia history of hypertension Patient seen examined bedside. argatroban until warfarin goal INR of 4 and maintenance goal of 2-3. Pending appointing a legal guardian. Patient's chart, labs, images were reviewed and discussed with KARY Cardenas Enteric tube with metallic tip in the left upper quadrant likely in the stomach. Home on plavix and warfarin D/C INITIAL PLAN TO [facility] PENDING/ discharge planning in place once court appointed DPOA available D/W RN 10/26/2020 HGB 9.4 doing well on trach shield on a 24-hour basis./ blood gases shows no worsening hypercapnia while on trach shield. No apneic breathing reported. laparoscopic gastrostomy tube placement (specifically 24 F) Oct discharge planning in place once court appointed DPOA available Acute anemia Acute metabolic, infectious encephalopathy Acute respiratory failure Healthcare associated pneumonia Acute hypoglycemia Hypokalemia Elevated troponins Severe protein malnutrition Morbid obesity AAA, 4 cm, infrarenal History of diabetes mellitus type 2 History of dyslipidemia history of hypertension Patient seen examined bedside. argatroban until warfarin goal INR of 4 and maintenance goal of 2-3. Pending appointing a legal guardian. Patient's chart, labs, images were reviewed and discussed with KARY Cardenas Enteric tube with metallic tip in the left upper quadrant likely in the stomach. Home on plavix and warfarin D/C INITIAL PLAN TO [facility] PENDING/ discharge planning in place once court appointed DPOA available D/W RN 10/27/2020 HGB 9.4 doing well on trach shield on a 24-hour basis./ blood gases shows no worsening hypercapnia while on trach shield. No apneic breathing reported. laparoscopic gastrostomy tube placement (specifically 24 F) Oct discharge planning in place once court appointed DPOA available Acute anemia Acute metabolic, infectious encephalopathy Acute respiratory failure Healthcare associated pneumonia Acute hypoglycemia Hypokalemia Elevated troponins Severe protein malnutrition Morbid obesity AAA, 4 cm, infrarenal History of diabetes mellitus type 2 History of dyslipidemia history of hypertension Patient seen examined bedside. argatroban until warfarin goal INR of 4 and maintenance goal of 2-3. Pending appointing a legal guardian. Patient's chart, labs, images were reviewed and discussed with KARY Cardenas Enteric tube with metallic tip in the left upper quadrant likely in the stomach. Home on plavix and warfarin D/C INITIAL PLAN TO [facility] PENDING/ discharge planning in place once court appointed DPOA available D/W KARY 10/28/2020 HGB 9.4 doing well on trach shield on a 24-hour basis./ blood gases shows no worsening hypercapnia while on trach shield. No apneic breathing reported. laparoscopic gastrostomy tube placement (specifically 24 F) Oct discharge planning in place once court appointed DPOA available Acute anemia Acute metabolic, infectious encephalopathy Acute respiratory failure Healthcare associated pneumonia Acute hypoglycemia Hypokalemia Elevated troponins Severe protein malnutrition Morbid obesity AAA, 4 cm, infrarenal History of diabetes mellitus type 2 History of dyslipidemia history of hypertension Patient seen examined bedside. argatroban until warfarin goal INR of 4 and maintenance goal of 2-3. Pending appointing a legal guardian. Patient's chart, labs, images were reviewed and discussed with KARY Cardenas Enteric tube with metallic tip in the left upper quadrant likely in the stomach. Home on plavix and warfarin D/C INITIAL PLAN TO [facility] PENDING/ discharge planning in place once court appointed DPOA available D/W RN Vitals/I&O Vitals/I&O: Vital Signs Date Time Temp Pulse Resp B/P (MAP) Pulse Ox O2 Delivery O2 Flow Rate FiO2 10/31/20 10:44 99.4 87 19 127/73 (91) 100 trach shield 8.0 99.4 I & O0 10/30/20 10/30/20 10/31/20 15:00 23:00 07:00 Intake Total 200 ml 1184 ml 607 ml Output Total 300 ml Balance 200 ml 1184 ml 307 ml Physical Exam Physical Exam: Neuro: actively posturing. Pulpils dialated but reactive to light and accomendation. Flaccidity in the lower extremity bilaterally. Equivocal Babinski. General: Other (actively posturing. No meaningful movements. ) Heart: Regular rate (SR), Other (distatne heart sounds) Lungs: Other (Tracheostomy with trach shield.) Abdomen: Soft, Other (g tube in place) Extremities: No cyanosis, Other (2-3+ bilateral LE pitting edema) Skin: No rashes, No significant lesion Labs Labs: Laboratory Tests Test 10/30/20 18:19 10/31/20 00:15 10/31/20 05:00 10/31/20 05:50 Glucose (Fingerstick) 135 mg/dL (70-99) 169 mg/dL (70-99) 176 mg/dL (70-99) Prothrombin Time 27.3 SEC (11.7-14.0) Prothromb Time International Ratio 2.6 (0.8-1.1) Test 10/31/20 11:36 Glucose (Fingerstick) 169 mg/dL (70-99) Review of Systems Review of Systems: Unobtainable. Assessment and Plan Assessmemt and Plan Problems Medical Problems: (1) NSTEMI (non-ST elevated myocardial infarction) Status: Acute (2) Obtundation Status: Acute (3) Respiratory arrest Status: Acute Acute anemia Acute metabolic, infectious encephalopathy Acute respiratory failure Healthcare associated pneumonia Acute hypoglycemia Hypokalemia Elevated troponins Severe protein malnutrition Morbid obesity AAA, 4 cm, infrarenal History of diabetes mellitus type 2 History of dyslipidemia history of hypertension History of recent STEMI History of CAD History of peripheral artery disease History of JEANNE History of CVA History of paroxysmal atrial fibrillation Ischemic cardiomyopathy Plan: Continue peg feed. Cardiac monitoring. Home meds. Monitor neurologic status. Await for neuro input. DVT prophylaxis. DNR Prognosis poor, suspect he qualifies for hospice. Comment Review of Relevant I have reviewed the following items denise (where applicable) has been applied. Justifications for Admission Other Justification Hypoglycemia and altered mental status. MANNY THOMASON III DO Oct 31, 2020 12:50
--- NOTE | 2020-10-31 13:21 | NUR ---
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 Target range for this patient is: 2 -3 P: Warfarin dose: 4 mg Today at 1600 Bridge Therapy: Argatroban Therapeutic Next INR due tomorrow Pharmacy anticoagulation service will continue to follow. Roseline Varela [facility], 10/31/20 [id number]
[2020-10-31 14:28] VITALS: BP 121/66
[2020-10-31] MEDS ORDERED: WARFARIN 4 MG TABLET. PO ONE (16:00)
[2020-10-31 19:00] VITALS: BP 125/69
[2020-10-31] MEDS: ATORVASTATIN CALCIUM 40 MG TABLET. PO SCH (20:28)
[2020-10-31 23:16] VITALS: BP 120/63
[2020-11-01 02:39] VITALS: BP 123/77
[2020-11-01] MEDS: INSULIN LISPRO 300 UNITS/3 ML VIAL. SQ SCH ×4 (06:00→18:00)
[2020-11-01 07:00] VITALS: BP 141/78
[2020-11-01 07:59] LABS: PROTHROMBIN TIME PATIENT 25.3 SEC (11.7-14.0)
--- NOTE | 2020-11-01 08:51 | PDOC ---
[facility] PROGRESS NOTE Date of Service DOS: DATE: 11/01/20 TIME: 08:47 Chief Complaint Chief Complaint Acute anemia Acute metabolic, infectious encephalopathy Acute respiratory failure Healthcare associated pneumonia Acute hypoglycemia Hypokalemia Elevated troponins Severe protein malnutrition Morbid obesity AAA, 4 cm, infrarenal History of diabetes mellitus type 2 History of dyslipidemia history of hypertension History of recent STEMI History of CAD History of peripheral artery disease History of JEANNE History of CVA History of paroxysmal atrial fibrillation Ischemic cardiomyopathy History of Present Illness History of Present Illness 11/01/2020 Patient seen and examined. Discussed with social media coordinator and RN. Patient is still unresponsive. No meaningful movements. Peg feeding is running at 45cc/hr. Patient is actively posturing at bed side. Trach shield at 8L and BIPAP PRN at 35%. 10/31/2020 Patient seen and examined. Chart reviewed. Discussed with social media coordinator and RN. Patient still unresponsive. Patient actively posturing at bed side. Has peg running at 45cc/hr. Vestibulo-ocular reflex intact. 10/30/2020 Patient seen and examined. Discussed with social media coordinator and RN. Chart reviewed. Patient actively posturing at bed side. Has peg running at 45cc/hr. Mr Andrews is a 70-year-old male with a recent prolonged hospitalization for STEMI and respiratory failure for which she was treated with arterial thrombolysis for a right leg popliteal artery aneurysm and also had left heart cath with placement of a stent in the LAD and RCA comes in today after he was found obtunded at his shelter facility. Apparently according to the nursing facility patient was in his usual state of health and he was conversational but then became altered. His blood glucose was found to be in the 30s. Glucose tabs and glucagon was given in route and his GCS reported at 6. Upon arrival patient's mental status did not improve and he was eventually intubated for airway protection. Of note EMS was bagging the patient through the nasal access. In the ED, patient was placed on a vent and pulmonology was consulted. Patient was also taken to the CT scanner for sanders scanning. Patient was started to wake up on the vent and sedation was ordered. 09/23: Patient examined at bedside. Intubated. Not on any sedation but unresponsive. Neurology consult in place. 09/24: Patient seen and examined at bedside. Remains intubated he is off sedation but still remains unresponsive. Planning for MRI brain in the morning. Further plan to be determined by MRI. 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 09/25: Afebrile, currently breathing on ventilator with FiO2 50%, PEEP 5. Had CODE BLUE in ICU this morning; received 2 rounds of CPR, epinephrine, and atropine with ROSC. MRI brain negative. Made DNR, and after discussion with Dr. Rubalcava he agrees. 09/26:: Afebrile. Still on vent, with FiO2 45%, PEEP 5. After discussion with Dr. Rubalcava yesterday, patient was made DNR. In the ED is likely a poor candidate for weaning trials may need trach in near future if no significant improvement. 09/27:: Afebrile. On vent with FiO2 40%, PEEP 5. Potassium 2.8 today, will rep lace. Warfarin has been resumed. Discussed with pharmacy, will resume aspirin and Plavix. May need tracheostomy by the end of the week if no improvement in mental status. 09/28:: Afebrile. On ventilator with FiO2 40%, PEEP 5. Warfarin has been resumed; INR 1.3 today. Some morning labs still pending; hemoglobin yesterday 7.3, will continue to monitor. Continue IV cefepime and supportive care. 09/29: Afebrile. Breathing on vent with FiO2 40%, PEEP 5. INR 1.2 today; pharmacy to help with warfarin dosing. White count within normal range, renal function stable. Spoke with pharmacy about cefepime 1 g every 8 hours dosing; this has been changed to cefepime 2 g every 8 hours. 09/30: Afebrile. Currently breathing on vent with FiO2 40%, PEEP 5. Continue antibiotics, cefepime 2 g every 8 hours. INR 1.4; continue warfarin dosing per pharmacy. Possible tracheostomy at some point. Critical care time 30 minutes reviewing charts, labs, examination, discussion with RN. 10/01: T-max 100.3 F. On ventilator with FiO2 40%, PEEP 5. Continue antibiotics, cefepime 2 g every 8 hours. INR 1.4, still subtherapeutic; continue warfarin dosing per pharmacy. Possible tracheostomy at some point. 10/02: No acute events overnight. Patient saturating 99% on vent settings of 10/450/40/5. Patient will likely need a trach and PEG at some point. We will hold warfarin and start 2 units PRBC transfusion. Patient's chart, labs, images were reviewed and discussed with RN 10/03: No acute events overnight. Patient sat 100% on minimal vent settings. No sedation at this point and patient is opening his eyes spontaneously. Not much response or spontaneous movements. Surgery has been consulted for tracheostomy. Patient will also likely need a PEG tube. 10/04: No acute events overnight. Patient saturating 90% on minimal vent settings. T-max 100.4 overnight. Plan for trach tomorrow with surgery. Patient's chart, labs, images were reviewed and discussed with RN 10/05: No acute events overnight. Patient saturating 99% on minimal vent settin gs. Plan for tracheostomy today. Consent is provided by authorization by 2 physicians due to patient having no close relatives or DPOA. Will resume heparin and warfarin bridging tomorrow after tracheostomy 10/07: No acute events overnight. Patient seen and examined bedside. On trach vent. Saturating 99%. Pending GI evaluation for possible PEG placement after discussing with cardiology whether to continue with Plavix. Possibly place PEG if patient is only on aspirin and stopping argatroban. 10/08: No acute events overnight. Patient continues to be on trach mechanical vent. Saturating 100%. Pending decision from GI whether to proceed with PEG placement depending on the type of anticoagulation patient will be on. 10/09: No overnight events. On trach with vent support 40% FiO2 PEEP of 5. Currently argatroban and propofol for minimal sedation. When sedation is weaned he has no meaningful movements but has pulled at his tracheostomy site. Unable to hold plavix due to recently placed stents. 10/10: Afebrile today. On trach with vent support 40% FiO2 PEEP of 5. Continue argatroban and changed to Aggrastat in anticipation of surgical consultation for potential laparoscopic PEG placement. INR 1.6. Hb greater than 9 no significant neurologic recovery today. 10/11: Afebrile. On trach with vent support 40% FiO2 PEEP of 5. INR 1.8. Not making meaningful eye contact. Labs otherwise stable. 10/12: Afebrile. Trach with vent support 40% FiO2 PEEP five O2 saturations 92%. INR 1.8, mag 1.8, Hb 8.4. Not following commands. Tentative plans for surgical PEG next week. 10/13: Afebrile. Trach with vent support 40% FiO2 PEEP 5. Eyes open, not tracking or following commands. Holding Plavix. On argatroban. 10/14: Afebrile. Trach with vent support 40% FiO2 PEEP of 5. Will open eyes intermittently not necessarily to voice. Good urine output. Labs stable. 10/15: Afebrile overnight. Trach with vent AC 40% fio2 PEEP 5. Had a very large bowel movement. Still not tracking. Hb 9, INR 1.7, glucose 144. Tentative plan for PEG 10/18/2020 CC time 30 minutes 10/16/20: Patient seen and examined in the ICU. He was resting and still on vent via trach. Has NG running via Dobhoff, feeding at 40cc/hr. AC/10/450/40% plus 5 PEEP. Discussed with RN. Chart reviewed. 10/17/20: Patient was seen and examined in the ICU today. Still on vent via trach at AC/10/450/40 plus 5 PEEP. While examined, patient was at 100% O2 saturation. Has SCDs on for DVT prophylaxis. Stauffer catheter in place. On IV argatroban. R subclavian triple lumen in place. Dobhoff running at 40cc/hr. Discussed with RN. Chart reviewed. 10/18/20: Patient seen and examined in ICU. His eyes are open. On vent via trach with settings that were recently changed to spontaneous respirations with FiO2 of 40 and 5 PEEP. Trach is clean and dry. Currently, oxygen saturation is at 100%. Stauffer to bedside and rectal bag in place. Discussed with RN. Chart reviewed. 10/19/20: Patient was seen and examined in the ICU today. His eyes were open and he was resting. On BiPAP via trach AVAPS/10/450/40 plus 5 PEEP. Trach is clean and dry. Has SCDs for DVT prophylaxis. Patient has rectal bag, Stauffer to bedside, and NG tube in place. Discussed with RN. Chart reviewed. 10/20/20 No acute events overnight. Patient seen and examined bedside. Transferred from the ICU. Continues to be nonverbal and not following much commands. Opens eyes to voice. Currently on BiPAP via trach on AVAPS setting 10/450/40 PEEP of 5. Trach site is clear. No signs of infections. Patient's chart, labs, images were reviewed and discussed with RN 10/21/2020 No acute events overnight. Patient seen and examined bedside. Afebrile. Continues to be nonverbal but opens eyes to voice. Currently on BiPAP. Patient's chart, labs, images were reviewed and discussed with RN. 10/22/2020 No acute events overnight. Patient seen examined bedside. Continue with argatroban until warfarin goal INR of 4 and maintenance goal of 2-3. Please see mobility architect note. Pending appointing a legal guardian. Patient's chart, labs, images were reviewed and discussed with RN 10/23/2020 laparoscopic gastrostomy tube placement (specifically 24 F) Oct discharge planning in place once court appointed DPOA available Acute anemia Acute metabolic, infectious encephalopathy Acute respiratory failure Healthcare associated pneumonia Acute hypoglycemia Hypokalemia Elevated troponins Severe protein malnutrition Morbid obesity AAA, 4 cm, infrarenal History of diabetes mellitus type 2 History of dyslipidemia history of hypertension Patient seen examined bedside. argatroban until warfarin goal INR of 4 and maintenance goal of 2-3. Pending appointing a legal guardian. Patient's chart, labs, images were reviewed and discussed with KARY Cardenas Enteric tube with metallic tip in the left upper quadrant likely in the stomach. 10/24/2020 doing well on trach shield on a 24-hour basis./ blood gases shows no worsening hypercapnia while on trach shield. No apneic breathing reported. laparoscopic gastrostomy tube placement (specifically 24 F) Oct discharge planning in place once court appointed DPOA available Acute anemia Acute metabolic, infectious encephalopathy Acute respiratory failure Healthcare associated pneumonia Acute hypoglycemia Hypokalemia Elevated troponins Severe protein malnutrition Morbid obesity AAA, 4 cm, infrarenal History of diabetes mellitus type 2 History of dyslipidemia history of hypertension Patient seen examined bedside. argatroban until warfarin goal INR of 4 and maintenance goal of 2-3. Pending appointing a legal guardian. Patient's chart, labs, images were reviewed and discussed with KARY Cardenas Enteric tube with metallic tip in the left upper quadrant likely in the stomach. Home on plavix and warfarin D/C INITIAL PLAN TO [facility]END[facility]/ discharge planning in place once court appointed DPOA available D/W RN 10/25/2020 doing well on trach shield on a 24-hour basis./ blood gases shows no worsening hypercapnia while on trach shield. No apneic breathing reported. laparoscopic gastrostomy tube placement (specifically 24 F) Oct discharge planning in place once court appointed DPOA available Acute anemia Acute metabolic, infectious encephalopathy Acute respiratory failure Healthcare associated pneumonia Acute hypoglycemia Hypokalemia Elevated troponins Severe protein malnutrition Morbid obesity AAA, 4 cm, infrarenal History of diabetes mellitus type 2 History of dyslipidemia history of hypertension Patient seen examined bedside. argatroban until warfarin goal INR of 4 and maintenance goal of 2-3. Pending appointing a legal guardian. Patient's chart, labs, images were reviewed and discussed with KARY Cardenas Enteric tube with metallic tip in the left upper quadrant likely in the stomach. Home on plavix and warfarin D/C INITIAL PLAN TO [facility]/ discharge planning in place once court appointed DPOA available D/W RN 10/26/2020 HGB 9.4 doing well on trach shield on a 24-hour basis./ blood gases shows no worsening hypercapnia while on trach shield. No apneic breathing reported. laparoscopic gastrostomy tube placement (specifically 24 F) Oct discharge planning in place once court appointed DPOA available Acute anemia Acute metabolic, infectious encephalopathy Acute respiratory failure Healthcare associated pneumonia Acute hypoglycemia Hypokalemia Elevated troponins Severe protein malnutrition Morbid obesity AAA, 4 cm, infrarenal History of diabetes mellitus type 2 History of dyslipidemia history of hypertension Patient seen examined bedside. argatroban until warfarin goal INR of 4 and maintenance goal of 2-3. Pending appointing a legal guardian. Patient's chart, labs, images were reviewed and discussed with KARY Cardenas Enteric tube with metallic tip in the left upper quadrant likely in the stomach. Home on plavix and warfarin D/C INITIAL PLAN TO [facility]/ discharge planning in place once court appointed DPOA available D/W RN 10/27/2020 HGB 9.4 doing well on trach shield on a 24-hour basis./ blood gases shows no worsening hypercapnia while on trach shield. No apneic breathing reported. laparoscopic gastrostomy tube placement (specifically 24 F) Oct discharge planning in place once court appointed DPOA available Acute anemia Acute metabolic, infectious encephalopathy Acute respiratory failure Healthcare associated pneumonia Acute hypoglycemia Hypokalemia Elevated troponins Severe protein malnutrition Morbid obesity AAA, 4 cm, infrarenal History of diabetes mellitus type 2 History of dyslipidemia history of hypertension Patient seen examined bedside. argatroban until warfarin goal INR of 4 and maintenance goal of 2-3. Pending appointing a legal guardian. Patient's chart, labs, images were reviewed and discussed with KARY Cardenas Enteric tube with metallic tip in the left upper quadrant likely in the stomach. Home on plavix and warfarin D/C INITIAL PLAN TO [facility]/ discharge planning in place once court appointed DPOA available D/W RN 10/28/2020 HGB 9.4 doing well on trach shield on a 24-hour basis./ blood gases shows no worsening hypercapnia while on trach shield. No apneic breathing reported. laparoscopic gastrostomy tube placement (specifically 24 F) Oct discharge planning in place once court appointed DPOA available Acute anemia Acute metabolic, infectious encephalopathy Acute respiratory failure Healthcare associated pneumonia Acute hypoglycemia Hypokalemia Elevated troponins Severe protein malnutrition Morbid obesity AAA, 4 cm, infrarenal History of diabetes mellitus type 2 History of dyslipidemia history of hypertension Patient seen examined bedside. argatroban until warfarin goal INR of 4 and maintenance goal of 2-3. Pending appointing a legal guardian. Patient's chart, labs, images were reviewed and discussed with KARY Cardenas Enteric tube with metallic tip in the left upper quadrant likely in the stomach. Home on plavix and warfarin D/C INITIAL PLAN TO [facility]/ discharge planning in place once court appointed DPOA available D/W RN Vitals/I&O Vitals/I&O: Vital Signs Date Time Temp Pulse Resp B/P (MAP) Pulse Ox O2 Delivery O2 Flow Rate FiO2 11/01/20 08:05 96 Tracheal Collar 8.0 11/01/20 07:00 99.7 84 17 141/78 (99) 99.7 I & O 10/31/20 10/31/20 11/01/20 15:00 23:00 07:00 Intake Total 200 ml 1279 ml 546 ml Output Total 750 ml 400 ml Balance 200 ml 529 ml 146 ml Physical Exam Physical Exam: Neuro: actively posturing. Pulpils dialated but reactive to light and accomendation. Flaccidity in the lower extremity bilaterally. Equivocal Babinski. General: Other (actively posturing. No meaningful movements. ) Heart: Regular rate (SR), Other (distant heart sounds) Lungs: Other (Tracheostomy with trach shield.) Abdomen: Soft, Other (g tube in place) Extremities: No cyanosis, Other (2-3+ bilateral LE pitting edema) Skin: No rashes, No significant lesion Labs Labs: Laboratory Tests Test 10/31/20 11:36 10/31/20 18:20 11/01/20 00:15 11/01/20 06:15 Glucose (Fingerstick) 169 mg/dL (70-99) 137 mg/dL (70-99) 169 mg/dL (70-99) 172 mg/dL (70-99) Test 11/01/20 07:00 Prothrombin Time 25.3 SEC (11.7-14.0) Prothromb Time International Ratio 2.4 (0.8-1.1) Assessment and Plan Assessmemt and Plan Problems Medical Problems: (1) NSTEMI (non-ST elevated myocardial infarction) Status: Acute (2) Obtundation Status: Acute (3) Respiratory arrest Status: Acute Acute anemia Acute metabolic, infectious encephalopathy Acute respiratory failure Healthcare associated pneumonia Acute hypoglycemia Hypokalemia Elevated troponins Severe protein malnutrition Morbid obesity AAA, 4 cm, infrarenal History of diabetes mellitus type 2 History of dyslipidemia history of hypertension History of recent STEMI History of CAD History of peripheral artery disease History of JEANNE History of CVA History of paroxysmal atrial fibrillation Ischemic cardiomyopathy Plan: Cardiac monitoring. Monitor neurologic status. Await for neuro input. Continue peg feed. Home meds. DVT prophylaxis. DNR Prognosis poor, suspect he qualifies for hospice. Comment Review of Relevant I have reviewed the following items denise (where applicable) has been applied. Medications: Current Medications Medications (Trade) Dose Ordered Sig/Dru Route PRN Reason Start Time Stop Time Status Last Admin Dose Admin Warfarin Sodium (Coumadin) 4 mg 1X WARF ONCE PO 10/31/20 16:00 10/31/20 16:01 DC 10/31/20 15:45 Justifications for Admission Other Justification Hypoglycemia and altered mental status. MANNY THOMASON III DO Nov 01, 2020 08:51
--- NOTE | 2020-11-01 09:50 | NUR ---
Pharmacy Warfarin Dosing Note S:Pharmacy consulted to assist with anticoagulation therapy started with target INR: 2 -3 O:DEMETRICE HOWE is a 70 year old M with Atrial Fibrillation, DVT/PE, HIT LABS: Last INR: 2.4 Last HGB: 9.2 Last HCT: 27.9 Last PLT: 266 Last dose of 4 mg given on 10/31/20 at 1545 Vitamin K given: N Drug Interaction Changes: Same Interacting Drug Ongoing Drug Interactions: amiodarone A:INR of 2.4 is within desired range. Target range for this patient is: 2 -3 P: Warfarin dose: 4 mg Today at 1600 Bridge Therapy: None Next INR due 11/02/20 Pharmacy anticoagulation service will continue to follow. NICK JONES RPH, 11/01/20 0920
[2020-11-01] MEDS: ASPIRIN CHEWABLE 81 MG TABLET. PO SCH (10:18)
[2020-11-01] MEDS: FUROSEMIDE 40 MG/4 ML VIAL. IVP SCH (10:19)
[2020-11-01] MEDS: CLOPIDOGREL BISULFATE 75 MG TABLET PO SCH (10:19)
[2020-11-01] MEDS: AMIODARONE HCL 200 MG TABLET. PO SCH (10:19)
[2020-11-01] MEDS: PANTOPRAZOLE IV PUSH 40 MG VIAL. IVP SCH (10:20)
[2020-11-01] MEDS: METOPROLOL TART IMMED RELEASE 25 MG TABLET. PO SCH ×2 (10:20→20:38)
[2020-11-01] MEDS: POTASSIUM BICARB 20 MEQ EFFERVESCENT TABLET. PEG SCH (10:20)
[2020-11-01 11:00] VITALS: BP 143/69
--- NOTE | 2020-11-01 13:17 | NUR ---
SS following up with discharge planning. SS reviewed pt chart and discussed with pt RN. Pt is currently on trach shield at 8 liters and BIPAP PRN at 35%. G tube in place. COVID19 negative. Unresponsive. Pt was declined at [facility] due to being too medically complex for nursing home unit. LTACH facilities requesting that pt have DPOA or Guardian prior to accepting for admission. SS contacted [facility] and they reported that they would need DPOA or Guardianship in order to accept as well. Pt has no family or kinship to accept responsibility. Case supervisor tellers aware of need for DPOA or Guardianship. Hospice recommended but pt needing DPOA or Guardian to sign consents as well. SS will continue to follow for discharge planning.
[2020-11-01 15:00] VITALS: BP 135/68
[2020-11-01] MEDS ORDERED: WARFARIN 4 MG TABLET. PO ONE (16:00)
--- NOTE | 2020-11-01 16:08 | RAD ---
Exam: Abdomen one view INDICATION: Bleeding at PEG tube site TECHNIQUE: Supine view the abdomen Comparisons: None FINDINGS: Percutaneous gastrostomy tube with balloon in the left upper quadrant likely in the stomach. Moderate amount stool noted in the colon. No dilated loops of bowel are identified. No suspicious masses or calcifications. Diffuse osteopenia. IMPRESSION: 1. Lines and tubes described above. 2. Moderate amount stool in the colon. Correlate for constipation Electronically signed by: Bonifacio Forrester MD (11/01/2020 4:06 PM) RACH
--- NOTE | 2020-11-01 19:17 | NUR ---
Patient found to have bleeding from PEG tube site and contacted Dr. Pal HERNANDES ordered and to hold coumadin and he will see patient in the AM.
[2020-11-01 19:57] VITALS: BP 137/77
[2020-11-01] MEDS: ATORVASTATIN CALCIUM 40 MG TABLET. PO SCH (20:38)
[2020-11-01 22:37] VITALS: BP 110/67
[2020-11-02 02:54] VITALS: BP 142/75
[2020-11-02] MEDS: INSULIN LISPRO 300 UNITS/3 ML VIAL. SQ SCH ×4 (06:00→18:00)
[2020-11-02 06:27] LABS: PROTHROMBIN TIME PATIENT 22.7 SEC (11.7-14.0)
[2020-11-02 07:00] VITALS: BP 140/69
[2020-11-02] MEDS: AMIODARONE HCL 200 MG TABLET. PO SCH (09:07)
[2020-11-02] MEDS: CLOPIDOGREL BISULFATE 75 MG TABLET PO SCH (09:07)
[2020-11-02] MEDS: POTASSIUM BICARB 20 MEQ EFFERVESCENT TABLET. PEG SCH (09:07)
[2020-11-02] MEDS: FUROSEMIDE 40 MG/4 ML VIAL. IVP SCH (09:08)
[2020-11-02] MEDS: METOPROLOL TART IMMED RELEASE 25 MG TABLET. PO SCH ×2 (09:08→23:07)
[2020-11-02] MEDS: ASPIRIN CHEWABLE 81 MG TABLET. PO SCH (09:08)
[2020-11-02] MEDS: PANTOPRAZOLE IV PUSH 40 MG VIAL. IVP SCH (09:09)
[2020-11-02 10:43] VITALS: BP 108/64
--- NOTE | 2020-11-02 11:04 | PDOC ---
CARDIO Progress Notes Date and Time Date of Service 11/02/20 Time of Evaluation 1100 Subjective Subjective: Other (nonverbal) Vitals Vitals Vital Signs Date Time Temp Pulse Resp B/P (MAP) Pulse Ox O2 Delivery O2 Flow Rate FiO2 11/02/20 10:43 98.4 78 20 108/64 (79) 97 Nasal Cannula 8.0 98.4 Weight Weight [ ] Input and Output Intake and Output Intake and Output 11/02/20 07:00 Intake Total 1364 ml Output Total 1050 ml Balance 314 ml Intake Oral 0 ml Tube Feeding 1364 ml Output Urine Total 1050 ml Laboratory Labs Laboratory Tests Test 11/01/20 12:41 11/01/20 17:58 11/02/20 00:22 11/02/20 05:27 Glucose (Fingerstick) 184 mg/dL (70-99) 117 mg/dL (70-99) 158 mg/dL (70-99) 163 mg/dL (70-99) Test 11/02/20 06:15 Prothrombin Time 22.7 SEC (11.7-14.0) Prothromb Time International Ratio 2.0 (0.8-1.1) Physical Exam HEENT: Neck Supple W Full Motion Chest: Symmetric LUNGS: Other (trach on 8L) Heart: RRR (SR) Abdomen: Other (obese; PEG) Extremities: No Edema Neurology: other (opens eyes, does not track or follow commands) Assessment Assessment 1. Acute on chronic respiratory failure, multifactorial; s/p tracheostomy. 2. Metabolic encephalopathy 3. Acute on chronic diastolic/systolic CHF; appears compensated 4. CAD/STEMI: S/P complex PCI/stents to RCA/LAD 08/16/2020. [facility] 08/31 with ISR to RCA, S/P PCI, clinically stable 5. ICM: EF at 25% 6. PAFIB: maintaining SR. 7. Hx of HIT 8. Anemia: hgb stable 9. Hx of CVA 10. Dysphagia; s/p PEG Recommendations Secondary prevention Coumadin and Plavix Lasix therapy Amiodarone for rhythm maintenance. Supportive care Awaiting assignment of DPOA or Guardianship for placement Justicifation of Admission Dx: Justifications for Admission: Justification of Admission Dx: Yes CHF: Cardiac Arrhythmias PEDRO VERDE APRN Nov 02, 2020 11:04
--- NOTE | 2020-11-02 11:18 | NUR ---
SS following up with discharge planning. SS reviewed pt chart and discussed with pt RN. Pt is currently on trach shield at eight liters. G-Tube in place. Pt on IV Lasix. COVID19 negative. contacted metal rooferAmarilis, ; fax [phone], to start Guardianship process. Amarilis's marketing communications assistant e-mailed SS requesting information on pt. SS provided reply with all known information. SS will continue to follow for discharge planning. Addendum: 11/02/20 at 1458 by CHIKIS JO SS Physical Fitness Teacher, Amarilis Matthews, contacted and reported that the [facility] has no public guardians. She reported that prior to filing for Guardianship with the courts a proposed guardian will need to be found. notified Amarilis that pt has no known living family or relatives. Amarilis suggested SS contact [facility] to request assistance to find proposed guardian. She reported that she will hold on to the file until a proposed guardian has been found. [facility] hotline report made requesting assistance finding proposed guardian, intake#[id number].
--- NOTE | 2020-11-02 12:26 | PDOC ---
[employer] PROGRESS NOTE Date of Service DOS: DATE: 11/02/20 TIME: 12:22 Chief Complaint Chief Complaint Acute anemia Acute metabolic, infectious encephalopathy Acute respiratory failure Healthcare associated pneumonia Acute hypoglycemia Hypokalemia Elevated troponins Severe protein malnutrition Morbid obesity AAA, 4 cm, infrarenal History of diabetes mellitus type 2 History of dyslipidemia history of hypertension History of recent STEMI History of CAD History of peripheral artery disease History of JEANNE History of CVA History of paroxysmal atrial fibrillation Ischemic cardiomyopathy History of Present Illness History of Present Illness 11/02/2020 Patient seen and examined. Chart reviewd. Discussed with RN and social human services assistants. Patient is still unresponsive. No meaningful movements. Actively decorticate posturing at bedside. Has peg feeding running at 45cc/hr. Some bleeding at the peg insertion site. 11/01/2020 Patient seen and examined. Discussed with social human services assistants and RN. Patient is still unresponsive. No meaningful movements. Peg feeding is running at 45cc/hr. Patient is actively posturing at bed side. Trach shield at 8L and BIPAP PRN at 35%. 10/31/2020 Patient seen and examined. Chart reviewed. Discussed with social human services assistants and RN. Patient still unresponsive. Patient actively posturing at bed side. Has peg running at 45cc/hr. Vestibulo-ocular reflex intact. 10/30/2020 Patient seen and examined. Discussed with social human services assistants and RN. Chart reviewed. Patient actively posturing at bed side. Has peg running at 45cc/hr. Mr Andrews is a 70-year-old male with a recent prolonged hospitalization for STEMI and respiratory failure for which she was treated with arterial thrombolysis for a right leg popliteal artery aneurysm and also had left heart cath with placement of a stent in the LAD and RCA comes in today after he was found obtunded at his longterm facility. Apparently according to the nursing facility patient was in his usual state of health and he was conversational but then became altered. His blood glucose was found to be in the 30s. Glucose tabs and glucagon was given in route and his GCS reported at 6. Upon arrival patient's mental status did not improve and he was eventually intubated for airway protection. Of note EMS was bagging the patient through the nasal access. In the ED, patient was placed on a vent and pulmonology was consulted. Patient was also taken to the CT scanner for sanders scanning. Patient was started to wake up on the vent and sedation was ordered. 09/23: Patient examined at bedside. Intubated. Not on any sedation but unresponsive. Neurology consult in place. 09/24: Patient seen and examined at bedside. Remains intubated he is off sedation but still remains unresponsive. Planning for MRI brain in the morning. Further plan to be determined by MRI. 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 09/25: Afebrile, currently breathing on ventilator with FiO2 50%, PEEP 5. Had CODE BLUE in ICU this morning; received 2 rounds of CPR, epinephrine, and atropine with ROSC. MRI brain negative. Made DNR, and after discussion with Dr. Rubalcava he agrees. 09/26:: Afebrile. Still on vent, with FiO2 45%, PEEP 5. After discussion with Dr. Rubalcava yesterday, patient was made DNR. In the ED is likely a poor candidate for weaning trials may need trach in near future if no significant improvement. 09/27:: Afebrile. On vent with FiO2 40%, PEEP 5. Potassium 2.8 today, will replace. Warfarin has been resumed. Discussed with pharmacy, will resume aspirin and Plavix. May need tracheostomy by the end of the week if no improvement in mental status. 09/28:: Afebrile. On ventilator with FiO2 40%, PEEP 5. Warfarin has been resumed; INR 1.3 today. Some morning labs still pending; hemoglobin yesterday 7.3, will continue to monitor. Continue IV cefepime and supportive care. 09/29: Afebrile. Breathing on vent with FiO2 40%, PEEP 5. INR 1.2 today; pharmacy to help with warfarin dosing. White count within normal range, renal function stable. Spoke with pharmacy about cefepime 1 g every 8 hours dosing; this has been changed to cefepime 2 g every 8 hours. 09/30: Afebrile. Currently breathing on vent with FiO2 40%, PEEP 5. Continue antibiotics, cefepime 2 g every 8 hours. INR 1.4; continue warfarin dosing per pharmacy. Possible tracheostomy at some point. Critical care time 30 minutes reviewing charts, labs, examination, discussion with RN. 10/01: T-max 100.3 F. On ventilator with FiO2 40%, PEEP 5. Continue antibiotics, cefepime 2 g every 8 hours. INR 1.4, still subtherapeutic; continue warfarin dosing per pharmacy. Possible tracheostomy at some point. 10/02: No acute events overnight. Patient saturating 99% on vent settings of 10/450/40/5. Patient will likely need a trach and PEG at some point. We will hold warfarin and start 2 units PRBC transfusion. Patient's chart, labs, images were reviewed and discussed with RN 10/03: No acute events overnight. Patient sat 100% on minimal vent settings. No sedation at this point and patient is opening his eyes spontaneously. Not much response or spontaneous movements. Surgery has been consulted for tracheostomy. Patient will also likely need a PEG tube. 10/04: No acute events overnight. Patient saturating 90% on minimal vent settings. T-max 100.4 overnight. Plan for trach tomorrow with surgery. Jenise ent's chart, labs, images were reviewed and discussed with RN 10/05: No acute events overnight. Patient saturating 99% on minimal vent settings. Plan for tracheostomy today. Consent is provided by authorization by 2 physicians due to patient having no close relatives or DPOA. Will resume heparin and warfarin bridging tomorrow after tracheostomy 10/07: No acute events overnight. Patient seen and examined bedside. On trach vent. Saturating 99%. Pending GI evaluation for possible PEG placement after discussing with cardiology whether to continue with Plavix. Possibly place PEG if patient is only on aspirin and stopping argatroban. 10/08: No acute events overnight. Patient continues to be on trach mechanical vent. Saturating 100%. Pending decision from GI whether to proceed with PEG placement depending on the type of anticoagulation patient will be on. 10/09: No overnight events. On trach with vent support 40% FiO2 PEEP of 5. Currently argatroban and propofol for minimal sedation. When sedation is weaned he has no meaningful movements but has pulled at his tracheostomy site. Unable to hold plavix due to recently placed stents. 10/10: Afebrile today. On trach with vent support 40% FiO2 PEEP of 5. Continue argatroban and changed to Aggrastat in anticipation of surgical consultation for potential laparoscopic PEG placement. INR 1.6. Hb greater than 9 no significant neurologic recovery today. 10/11: Afebrile. On trach with vent support 40% FiO2 PEEP of 5. INR 1.8. Not making meaningful eye contact. Labs otherwise stable. 10/12: Afebrile. Trach with vent support 40% FiO2 PEEP five O2 saturations 92%. INR 1.8, mag 1.8, Hb 8.4. Not following commands. Tentative plans for surgical PEG next week. 10/13: Afebrile. Trach with vent support 40% FiO2 PEEP 5. Eyes open, not tracking or following commands. Holding Plavix. On argatroban. 10/14: Afebrile. Trach with vent support 40% FiO2 PEEP of 5. Will open eyes intermittently not necessarily to voice. Good urine output. Labs stable. 10/15: Afebrile overnight. Trach with vent AC 40% fio2 PEEP 5. Had a very large bowel movement. Still not tracking. Hb 9, INR 1.7, glucose 144. Tentative plan for PEG 10/18/2020 CC time 30 minutes 10/16/20: Patient seen and examined in the ICU. He was resting and still on vent via trach. Has NG running via Dobhoff, feeding at 40cc/hr. AC/10/450/40% plus 5 PEEP. Discussed with RN. Chart reviewed. 10/17/20: Patient was seen and examined in the ICU today. Still on vent via trach at AC/10/450/40 plus 5 PEEP. While examined, patient was at 100% O2 saturation. Has SCDs on for DVT prophylaxis. Stauffer catheter in place. On IV argatroban. R subclavian triple lumen in place. Dobhoff running at 40cc/hr. Discussed with RN. Chart reviewed. 10/18/20: Patient seen and examined in ICU. His eyes are open. On vent via trach with settings that were recently changed to spontaneous respirations with FiO2 of 40 and 5 PEEP. Trach is clean and dry. Currently, oxygen saturation is at 100%. Stauffer to bedside and rectal bag in place. Discussed with RN. Chart reviewed. 10/19/20: Patient was seen and examined in the ICU today. His eyes were open and he was resting. On BiPAP via trach AVAPS/10/450/40 plus 5 PEEP. Trach is clean and dry. Has SCDs for DVT prophylaxis. Patient has rectal bag, Stauffer to bedside, and NG tube in place. Discussed with RN. Chart reviewed. 10/20/20 No acute events overnight. Patient seen and examined bedside. Transferred from the ICU. Continues to be nonverbal and not following much commands. Opens eyes to voice. Currently on BiPAP via trach on AVAPS setting /40 PEEP of 5. Trach site is clear. No signs of infections. Patient's chart, labs, images were reviewed and discussed with RN 10/21/2020 No acute events overnight. Patient seen and examined bedside. Afebrile. Continues to be nonverbal but opens eyes to voice. Currently on BiPAP. Patient's chart, labs, images were reviewed and discussed with RN. 10/22/2020 No acute events overnight. Patient seen examined bedside. Continue with argatroban until warfarin goal INR of 4 and maintenance goal of 2-3. Please see shrimper note. Pending appointing a legal guardian. Patient's chart, labs, images were reviewed and discussed with RN 10/23/2020 laparoscopic gastrostomy tube placement (specifically 24 F) Oct discharge planning in place once court appointed DPOA available Acute anemia Acute metabolic, infectious encephalopathy Acute respiratory failure Healthcare associated pneumonia Acute hypoglycemia Hypokalemia Elevated troponins Severe protein malnutrition Morbid obesity AAA, 4 cm, infrarenal History of diabetes mellitus type 2 History of dyslipidemia history of hypertension Patient seen examined bedside. argatroban until warfarin goal INR of 4 and maintenance goal of 2-3. Pending appointing a legal guardian. Patient's chart, labs, images were reviewed and discussed with KARY Cardenas Enteric tube with metallic tip in the left upper quadrant likely in the stomach. 10/24/2020 doing well on trach shield on a 24-hour basis./ blood gases shows no worsening hypercapnia while on trach shield. No apneic breathing reported. laparoscopic gastrostomy tube placement (specifically 24 F) Oct discharge planning in place once court appointed DPOA available Acute anemia Acute metabolic, infectious encephalopathy Acute respiratory failure Healthcare associated pneumonia Acute hypoglycemia Hypokalemia Elevated troponins Severe protein malnutrition Morbid obesity AAA, 4 cm, infrarenal History of diabetes mellitus type 2 History of dyslipidemia history of hypertension Patient seen examined bedside. argatroban until warfarin goal INR of 4 and maintenance goal of 2-3. Pending appointing a legal guardian. Patient's chart, labs, images were reviewed and discussed with KARY Cardenas Enteric tube with metallic tip in the left upper quadrant likely in the stomach. Home on plavix and warfarin D/C INITIAL PLAN TO [facility]/ discharge planning in place once court appointed DPOA available D/W RN 10/25/2020 doing well on trach shield on a 24-hour basis./ blood gases shows no worsening hypercapnia while on trach shield. No apneic breathing reported. laparoscopic gastrostomy tube placement (specifically 24 F) Oct discharge planning in place once court appointed DPOA available Acute anemia Acute metabolic, infectious encephalopathy Acute respiratory failure Healthcare associated pneumonia Acute hypoglycemia Hypokalemia Elevated troponins Severe protein malnutrition Morbid obesity AAA, 4 cm, infrarenal History of diabetes mellitus type 2 History of dyslipidemia history of hypertension Patient seen examined bedside. argatroban until warfarin goal INR of 4 and maintenance goal of 2-3. Pending appointing a legal guardian. Patient's chart, labs, images were reviewed and discussed with KARY Cardenas Enteric tube with metallic tip in the left upper quadrant likely in the stomach. Home on plavix and warfarin D/C INITIAL PLAN TO [facility]/ discharge planning in place once court appointed DPOA available D/W RN 10/26/2020 HGB 9.4 doing well on trach shield on a 24-hour basis./ blood gases shows no worsening hypercapnia while on trach shield. No apneic breathing reported. laparoscopic gastrostomy tube placement (specifically 24 F) Oct discharge planning in place once court appointed DPOA available Acute anemia Acute metabolic, infectious encephalopathy Acute respiratory failure Healthcare associated pneumonia Acute hypoglycemia Hypokalemia Elevated troponins Severe protein malnutrition Morbid obesity AAA, 4 cm, infrarenal History of diabetes mellitus type 2 History of dyslipidemia history of hypertension Patient seen examined bedside. argatroban until warfarin goal INR of 4 and maintenance goal of 2-3. Pending appointing a legal guardian. Patient's chart, labs, images were reviewed and discussed with KARY Cardenas Enteric tube with metallic tip in the left upper quadrant likely in the stomach. Home on plavix and warfarin D/C INITIAL PLAN TO [facility]/ discharge planning in place once court appointed DPOA available D/W RN 10/27/2020 HGB 9.4 doing well on trach shield on a 24-hour basis./ blood gases shows no worsening hypercapnia while on trach shield. No apneic breathing reported. laparoscopic gastrostomy tube placement (specifically 24 F) Oct discharge planning in place once court appointed DPOA available Acute anemia Acute metabolic, infectious encephalopathy Acute respiratory failure Healthcare associated pneumonia Acute hypoglycemia Hypokalemia Elevated troponins Severe protein malnutrition Morbid obesity AAA, 4 cm, infrarenal History of diabetes mellitus type 2 History of dyslipidemia history of hypertension Patient seen examined bedside. argatroban until warfarin goal INR of 4 and maintenance goal of 2-3. Pending appointing a legal guardian. Patient's chart, labs, images were reviewed and discussed with KARY Cardenas Enteric tube with metallic tip in the left upper quadrant likely in the stomach. Home on plavix and warfarin D/C INITIAL PLAN TO [facility] [facility]END[facility]/ discharge planning in place once court appointed DPOA available D/W RN 10/28/2020 HGB 9.4 doing well on trach shield on a 24-hour basis./ blood gases shows no worsening hypercapnia while on trach shield. No apneic breathing reported. laparoscopic gastrostomy tube placement (specifically 24 F) Oct discharge planning in place once court appointed DPOA available Acute anemia Acute metabolic, infectious encephalopathy Acute respiratory failure Healthcare associated pneumonia Acute hypoglycemia Hypokalemia Elevated troponins Severe protein malnutrition Morbid obesity AAA, 4 cm, infrarenal History of diabetes mellitus type 2 History of dyslipidemia history of hypertension Patient seen examined bedside. argatroban until warfarin goal INR of 4 and maintenance goal of 2-3. Pending appointing a legal guardian. Patient's chart, labs, images were reviewed and discussed with KARY Cardenas Enteric tube with metallic tip in the left upper quadrant likely in the stomach. Home on plavix and warfarin D/C INITIAL PLAN TO [facility]/ discharge planning in place once court appointed DPOA available D/W RN Vitals/I&O Vitals/I&O: Vital Signs Date Time Temp Pulse Resp B/P (MAP) Pulse Ox O2 Delivery O2 Flow Rate FiO2 11/02/20 11:36 100 Tracheal Collar 8.0 11/02/20 10:43 98.4 78 20 108/64 (79) 98.4 I & O 11/01/20 11/01/20 11/02/20 15:00 23:00 07:00 Intake Total 400 ml 444 ml 520 ml Output Total 700 ml 350 ml Balance 400 ml -256 ml 170 ml Physical Exam Physical Exam: Neuro: actively posturing. Pulpils dialated but reactive to light and accomendation. Flaccidity in the lower extremity bilaterally. Equivocal Babinski. General: Other (actively posturing. No meaningful movements. ) Heart: Regular rate (SR), Other (distant heart sounds) Lungs: Other (Tracheostomy with trach shield. Deminished breath sounds.) Abdomen: Soft, Other (g tube in place) Extremities: No cyanosis, Other (2-3+ bilateral LE pitting edema) Skin: No rashes, No significant lesion Labs Labs: Laboratory Tests Test 11/01/20 12:41 11/01/20 17:58 11/02/20 00:22 11/02/20 05:27 Glucose (Fingerstick) 184 mg/dL (70-99) 117 mg/dL (70-99) 158 mg/dL (70-99) 163 mg/dL (70-99) Test 11/02/20 06:15 Prothrombin Time 22.7 SEC (11.7-14.0) Prothromb Time International Ratio 2.0 (0.8-1.1) Assessment and Plan Assessmemt and Plan Problems Medical Problems: (1) NSTEMI (non-ST elevated myocardial infarction) Status: Acute (2) Obtundation Status: Acute (3) Respiratory arrest Status: Acute Acute anemia Acute metabolic, infectious encephalopathy Acute respiratory failure Healthcare associated pneumonia Acute hypoglycemia Hypokalemia Elevated troponins Severe protein malnutrition Morbid obesity AAA, 4 cm, infrarenal History of diabetes mellitus type 2 History of dyslipidemia history of hypertension History of recent STEMI History of CAD History of peripheral artery disease History of JEANNE History of CVA History of paroxysmal atrial fibrillation Ischemic cardiomyopathy Plan: Cardiac monitoring. Monitor neurologic status. Continue peg feed. Home meds. DVT prophylaxis. DNR Appreciate subspecialty input (neurology) Prognosis poor, suspect he qualifies for hospice. Comment Review of Relevant I have reviewed the following items denise (where applicable) has been applied. Justifications for Admission Other Justification Hypoglycemia and altered mental status. MANNY THOMASON III DO Nov 02, 2020 12:26
[2020-11-02 14:09] VITALS: BP 110/57
[2020-11-02] MEDS: WARFARIN 4 MG TABLET. PO SCH (16:48)
[2020-11-02 19:00] VITALS: BP 141/80
[2020-11-02 22:53] VITALS: BP 133/76
[2020-11-02] MEDS: ATORVASTATIN CALCIUM 40 MG TABLET. PO SCH (23:07)
[2020-11-03 03:00] VITALS: BP 93/56
[2020-11-03] MEDS: INSULIN LISPRO 300 UNITS/3 ML VIAL. SQ SCH ×4 (05:39→18:13)
[2020-11-03 07:09] VITALS: BP 143/87
[2020-11-03 07:15] LABS: PROTHROMBIN TIME PATIENT 20.9 SEC (11.7-14.0)
[2020-11-03] MEDS: AMIODARONE HCL 200 MG TABLET. PO SCH (08:12)
[2020-11-03] MEDS: POTASSIUM BICARB 20 MEQ EFFERVESCENT TABLET. PEG SCH (08:12)
[2020-11-03] MEDS: PANTOPRAZOLE IV PUSH 40 MG VIAL. IVP SCH (08:12)
[2020-11-03] MEDS: CLOPIDOGREL BISULFATE 75 MG TABLET PO SCH (08:12)
[2020-11-03] MEDS: ASPIRIN CHEWABLE 81 MG TABLET. PO SCH (08:12)
[2020-11-03] MEDS: FUROSEMIDE 40 MG/4 ML VIAL. IVP SCH (08:13)
[2020-11-03] MEDS: METOPROLOL TART IMMED RELEASE 25 MG TABLET. PO SCH ×2 (08:13→20:41)
[2020-11-03 10:16] VITALS: BP 123/76
--- NOTE | 2020-11-03 12:30 | NUR ---
SS following up with discharge planning. SS reviewed pt chart and discussed with pt RN. Pt is currently on trach shield at eight liters. G-Tube in place. Pt on IV Lasix. COVID19 negative. Pt in need of DPOA or Guardianship for placement at LTACH or LTC facility. C Architect, Amarilis Matthews, assigned to case and is in need of proposed guardian prior to proceeding. [facility] hotline report made yesterday for assistance. SS currently awaiting for response from [facility]. SS will continue to follow for discharge planning.
--- NOTE | 2020-11-03 12:43 | PDOC ---
[facility] PROGRESS NOTE Date of Service DOS: DATE: 11/03/20 TIME: 12:40 Chief Complaint Chief Complaint Acute anemia Acute metabolic, infectious encephalopathy Acute respiratory failure Healthcare associated pneumonia Acute hypoglycemia Hypokalemia Elevated troponins Severe protein malnutrition Morbid obesity AAA, 4 cm, infrarenal History of diabetes mellitus type 2 History of dyslipidemia history of hypertension History of recent STEMI History of CAD History of peripheral artery disease History of JEANNE History of CVA History of paroxysmal atrial fibrillation Ischemic cardiomyopathy History of Present Illness History of Present Illness 11/03/2020 Patient seen and examined. Discussed with RN and marriage and family social worker. Chart reviewed. Patient is still unresponsive. Actively decorticate posturing at bedside. Eyes rolled upward. No meaningful movements. Has peg feeding at 45cc/hr. The bleeding at the peg insertion site has stopped. 11/02/2020 Patient seen and examined. Chart reviewd. Discussed with RN and marriage and family social worker. Patient is still unresponsive. No meaningful movements. Actively decorticate posturing at bedside. Has peg feeding running at 45cc/hr. Some bleeding at the peg insertion site. 11/01/2020 Patient seen and examined. Discussed with marriage and family social worker and RN. Patient is still unresponsive. No meaningful movements. Peg feeding is running at 45cc/hr. Patient is actively posturing at bed side. Trach shield at 8L and BIPAP PRN at 35%. 10/31/2020 Patient seen and examined. Chart reviewed. Discussed with marriage and family social worker and RN. Patient still unresponsive. Patient actively posturing at bed side. Has peg running at 45cc/hr. Vestibulo-ocular reflex intact. 10/30/2020 Patient seen and examined. Discussed with marriage and family social worker and RN. Chart reviewed. Patient actively posturing at bed side. Has peg running at 45cc/hr. Mr Andrews is a 70-year-old male with a recent prolonged hospitalization for STEMI and respiratory failure for which she was treated with arterial thrombolysis for a right leg popliteal artery aneurysm and also had left heart cath with placement of a stent in the LAD and RCA comes in today after he was found obtunded at his [facility] facility. Apparently according to the nursing facility patient was in his usual state of health and he was conversational but then became altered. His blood glucose was found to be in the 30s. Glucose tabs and glucagon was given in route and his GCS reported at 6. Upon arrival patient's mental status did not improve and he was eventually intubated for airway protection. Of note EMS was bagging the patient through the nasal access. In the ED, patient was placed on a vent and pulmonology was consulted. Patient was also taken to the CT scanner for sanders scanning. Patient was started to wake up on the vent and sedation was ordered. 09/23: Patient examined at bedside. Intubated. Not on any sedation but unresponsive. Neurology consult in place. 09/24: Patient seen and examined at bedside. Remains intubated he is off sedation but still remains unresponsive. Planning for MRI brain in the morning. Further plan to be determined by MRI. 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 09/25: Afebrile, currently breathing on ventilator with FiO2 50%, PEEP 5. Had CODE BLUE in ICU this morning; received 2 rounds of CPR, epinephrine, and atropine with ROSC. MRI brain negative. Made DNR, and after discussion with Dr. Rubalcava he agrees. 09/26:: Afebrile. Still on vent, with FiO2 45%, PEEP 5. After discussion with Dr. Rubalcava yesterday, patient was made DNR. In the ED is likely a poor candidate for weaning trials may need trach in near future if no significant improvement. 09/27:: Afebrile. On vent with FiO2 40%, PEEP 5. Potassium 2.8 today, will replace. Warfarin has been resumed. Discussed with pharmacy, will resume aspirin and Plavix. May need tracheostomy by the end of the week if no improvement in mental status. 09/28:: Afebrile. On ventilator with FiO2 40%, PEEP 5. Warfarin has been resumed; INR 1.3 today. Some morning labs still pending; hemoglobin yesterday 7.3, will continue to monitor. Continue IV cefepime and supportive care. 09/29: Afebrile. Breathing on vent with FiO2 40%, PEEP 5. INR 1.2 today; pharmacy to help with warfarin dosing. White count within normal range, renal function stable. Spoke with pharmacy about cefepime 1 g every 8 hours dosing; this has been changed to cefepime 2 g every 8 hours. 09/30: Afebrile. Currently breathing on vent with FiO2 40%, PEEP 5. Continue antibiotics, cefepime 2 g every 8 hours. INR 1.4; continue warfarin dosing per pharmacy. Possible tracheostomy at some point. Critical care time 30 minutes reviewing charts, labs, examination, discussion with RN. 10/01: T-max 100.3 F. On ventilator with FiO2 40%, PEEP 5. Continue antibiotics, cefepime 2 g every 8 hours. INR 1.4, still subtherapeutic; continue warfarin dosing per pharmacy. Possible tracheostomy at some point. 10/02: No acute events overnight. Patient saturating 99% on vent settings of 10/450/40/5. Patient will likely need a trach and PEG at some point. We will hold warfarin and start 2 units PRBC transfusion. Patient's chart, labs, images were reviewed and discussed with RN 10/03: No acute events overnight. Patient sat 100% on minimal vent settings. No sedation at this point and patient is opening his eyes spontaneously. Not much response or spontaneous movements. Surgery has been consulted for tracheostomy. Patient will also likely need a PEG tube. 10/04: No acute events overnight. Patient saturating 90% on minimal vent settings. T-max 100.4 overnight. Plan for trach tomorrow with surgery. Patient's chart, labs, images were reviewed and discussed with RN 10/05: No acute events overnight. Patient saturating 99% on minimal vent settings. Plan for tracheostomy today. Consent is provided by authorization by 2 physicians due to patient having no close relatives or DPOA. Will resume heparin and warfarin bridging tomorrow after tracheostomy 10/07: No acute events overnight. Patient seen and examined bedside. On trach vent. Saturating 99%. Pending GI evaluation for possible PEG placement after discussing with cardiology whether to continue with Plavix. Possibly place PEG if patient is only on aspirin and stopping argatroban. 10/08: No acute events overnight. Patient continues to be on trach mechanical vent. Saturating 100%. Pending decision from GI whether to proceed with PEG placement depending on the type of anticoagulation patient will be on. 10/09: No overnight events. On trach with vent support 40% FiO2 PEEP of 5. Currently argatroban and propofol for minimal sedation. When sedation is weaned he has no meaningful movements but has pulled at his tracheostomy site. Unable to hold plavix due to recently placed stents. 10/10: Afebrile today. On trach with vent support 40% FiO2 PEEP of 5. Continue argatroban and changed to Aggrastat in anticipation of surgical consultation for potential laparoscopic PEG placement. INR 1.6. Hb greater than 9 no significant neurologic recovery today. 10/11: Afebrile. On trach with vent support 40% FiO2 PEEP of 5. INR 1.8. Not making meaningful eye contact. Labs otherwise stable. 10/12: Afebrile. Trach with vent support 40% FiO2 PEEP five O2 saturations 92%. INR 1.8, mag 1.8, Hb 8.4. Not following commands. Tentative plans for surgical PEG next week. 10/13: Afebrile. Trach with vent support 40% FiO2 PEEP 5. Eyes open, not tracking or following commands. Holding Plavix. On argatroban. 10/14: Afebrile. Trach with vent support 40% FiO2 PEEP of 5. Will open eyes intermittently not necessarily to voice. Good urine output. Labs stable. 10/15: Afebrile overnight. Trach with vent AC 40% fio2 PEEP 5. Had a very large bowel movement. Still not tracking. Hb 9, INR 1.7, glucose 144. Tentative plan for PEG 10/18/2020 CC time 30 minutes 10/16/20: Patient seen and examined in the ICU. He was resting and still on vent via trach. Has NG running via Dobhoff, feeding at 40cc/hr. AC/10/450/40% plus 5 PEEP. Discussed with RN. Chart reviewed. 10/17/20: Patient was seen and examined in the ICU today. Still on vent via trach at AC/10/450/40 plus 5 PEEP. While examined, patient was at 100% O2 saturation. Has SCDs on for DVT prophylaxis. Stauffer catheter in place. On IV argatroban. R subclavian triple lumen in place. Dobhoff running at 40cc/hr. Discussed with RN. Chart reviewed. 10/18/20: Patient seen and examined in ICU. His eyes are open. On vent via trach with settings that were recently changed to spontaneous respirations with FiO2 of 40 and 5 PEEP. Trach is clean and dry. Currently, oxygen saturation is at 100%. Stauffer to bedside and rectal bag in place. Discussed with RN. Chart reviewed. 10/19/20: Patient was seen and examined in the ICU today. His eyes were open and he was resting. On BiPAP via trach AVAPS/10/450/40 plus 5 PEEP. Trach is clean and dry. Has SCDs for DVT prophylaxis. Patient has rectal bag, Stauffer to bedside, and NG tube in place. Discussed with RN. Chart reviewed. 10/20/20 No acute events overnight. Patient seen and examined bedside. Transferred from the ICU. Continues to be nonverbal and not following much commands. Opens eyes to voice. Currently on BiPAP via trach on AVAPS setting 10/450/40 PEEP of 5. Trach site is clear. No signs of infections. Patient's chart, labs, images were reviewed and discussed with RN 10/21/2020 No acute events overnight. Patient seen and examined bedside. Afebrile. Continues to be nonverbal but opens eyes to voice. Currently on BiPAP. Patient's chart, labs, images were reviewed and discussed with RN. 10/22/2020 No acute events overnight. Patient seen examined bedside. Continue with argatroban until warfarin goal INR of 4 and maintenance goal of 2-3. Please see bisque tile burner note. Pending appointing a legal guardian. Patient's chart, labs, images were reviewed and discussed with RN 10/23/2020 laparoscopic gastrostomy tube placement (specifically 24 F) Oct discharge planning in place once court appointed DPOA available Acute anemia Acute metabolic, infectious encephalopathy Acute respiratory failure Healthcare associated pneumonia Acute hypoglycemia Hypokalemia Elevated troponins Severe protein malnutrition Morbid obesity AAA, 4 cm, infrarenal History of diabetes mellitus type 2 History of dyslipidemia history of hypertension Patient seen examined bedside. argatroban until warfarin goal INR of 4 and maintenance goal of 2-3. Pending appointing a legal guardian. Patient's chart, labs, images were reviewed and discussed with RN Ronald Enteric tube with metallic tip in the left upper quadrant likely in the stomach. 10/24/2020 doing well on trach shield on a 24-hour basis./ blood gases shows no worsening hypercapnia while on trach shield. No apneic breathing reported. laparoscopic gastrostomy tube placement (specifically 24 F) Oct discharge planning in place once court appointed DPOA available Acute anemia Acute metabolic, infectious encephalopathy Acute respiratory failure Healthcare associated pneumonia Acute hypoglycemia Hypokalemia Elevated troponins Severe protein malnutrition Morbid obesity AAA, 4 cm, infrarenal History of diabetes mellitus type 2 History of dyslipidemia history of hypertension Patient seen examined bedside. argatroban until warfarin goal INR of 4 and maintenance goal of 2-3. Pending appointing a legal guardian. Patient's chart, labs, images were reviewed and discussed with KARY Cardenas Enteric tube with metallic tip in the left upper quadrant likely in the stomach. Home on plavix and warfarin D/C INITIAL PLAN TO [facility]/ discharge planning in place once court a ppointed DPOA available D/W RN 10/25/2020 doing well on trach shield on a 24-hour basis./ blood gases shows no worsening hypercapnia while on trach shield. No apneic breathing reported. laparoscopic gastrostomy tube placement (specifically 24 F) Oct discharge planning in place once court appointed DPOA available Acute anemia Acute metabolic, infectious encephalopathy Acute respiratory failure Healthcare associated pneumonia Acute hypoglycemia Hypokalemia Elevated troponins Severe protein malnutrition Morbid obesity AAA, 4 cm, infrarenal History of diabetes mellitus type 2 History of dyslipidemia history of hypertension Patient seen examined bedside. argatroban until warfarin goal INR of 4 and maintenance goal of 2-3. Pending appointing a legal guardian. Patient's chart, labs, images were reviewed and discussed with KARY Cardenas Enteric tube with metallic tip in the left upper quadrant likely in the stomach. Home on plavix and warfarin D/C INITIAL PLAN TO [facility]/ discharge planning in place once court appointed DPOA available D/W RN 10/26/2020 HGB 9.4 doing well on trach shield on a 24-hour basis./ blood gases shows no worsening hypercapnia while on trach shield. No apneic breathing reported. laparoscopic gastrostomy tube placement (specifically 24 F) Oct discharge planning in place once court appointed DPOA available Acute anemia Acute metabolic, infectious encephalopathy Acute respiratory failure Healthcare associated pneumonia Acute hypoglycemia Hypokalemia Elevated troponins Severe protein malnutrition Morbid obesity AAA, 4 cm, infrarenal History of diabetes mellitus type 2 History of dyslipidemia history of hypertension Patient seen examined bedside. argatroban until warfarin goal INR of 4 and maintenance goal of 2-3. Pending appointing a legal guardian. Patient's chart, labs, images were reviewed and discussed with KARY Cardenas Enteric tube with metallic tip in the left upper quadrant likely in the stomach. Home on plavix and warfarin D/C INITIAL PLAN TO [facility]/ discharge planning in place once court appointed DPOA available D/W RN 10/27/2020 HGB 9.4 doing well on trach shield on a 24-hour basis./ blood gases shows no worsening hypercapnia while on trach shield. No apneic breathing reported. laparoscopic gastrostomy tube placement (specifically 24 F) Oct discharge planning in place once court appointed DPOA available Acute anemia Acute metabolic, infectious encephalopathy Acute respiratory failure Healthcare associated pneumonia Acute hypoglycemia Hypokalemia Elevated troponins Severe protein malnutrition Morbid obesity AAA, 4 cm, infrarenal History of diabetes mellitus type 2 History of dyslipidemia history of hypertension Patient seen examined bedside. argatroban until warfarin goal INR of 4 and maintenance goal of 2-3. Pending appointing a legal guardian. Patient's chart, labs, images were reviewed and discussed with KARY Cardenas Enteric tube with metallic tip in the left upper quadrant likely in the stomach. Home on plavix and warfarin D/C INITIAL PLAN TO [facility]/ discharge planning in place once court appointed DPOA available D/W RN 10/28/2020 HGB 9.4 doing well on trach shield on a 24-hour basis./ blood gases shows no worsening hypercapnia while on trach shield. No apneic breathing reported. laparoscopic gastrostomy tube placement (specifically 24 F) Oct discharge planning in place once court appointed DPOA available Acute anemia Acute metabolic, infectious encephalopathy Acute respiratory failure Healthcare associated pneumonia Acute hypoglycemia Hypokalemia Elevated troponins Severe protein malnutrition Morbid obesity AAA, 4 cm, infrarenal History of diabetes mellitus type 2 History of dyslipidemia history of hypertension Patient seen examined bedside. argatroban until warfarin goal INR of 4 and maintenance goal of 2-3. Pending appointing a legal guardian. Patient's chart, labs, images were reviewed and discussed with KARY Cardenas Enteric tube with metallic tip in the left upper quadrant likely in the stomach. Home on plavix and warfarin D/C INITIAL PLAN TO [facility]/ discharge planning in place once court appointed DPOA available D/W KAYR Vitals/I&O Vitals/I&O: Vital Signs Date Time Temp Pulse Resp B/P (MAP) Pulse Ox O2 Delivery O2 Flow Rate FiO2 11/03/20 12:00 8.0 11/03/20 11:12 100 Tracheal Collar 11/03/20 10:16 99.6 79 16 123/76 (92) 99.6 I & O 11/02/20 11/02/20 11/03/20 15:00 23:00 07:00 Intake Total 100 ml 200 ml 200 ml Output Total 450 ml Balance 100 ml 200 ml -250 ml Physical Exam Physical Exam: Neuro: actively posturing. Pulpils dialated but reactive to light and accomendation. Flaccidity in the lower extremity bilaterally. Equivocal Babinski. General: Other (actively posturing. No meaningful movements. ) Heart: Regular rate (SR), Other (distant heart sounds) Lungs: Other (Tracheostomy with trach shield. Deminished breath sounds.) Abdomen: Soft, Other (g tube in place) Extremities: No cyanosis, Other (2-3+ bilateral LE pitting edema) Skin: No rashes, No significant lesion Labs Labs: Laboratory Tests Test 11/02/20 18:07 11/03/20 00:26 11/03/20 05:30 11/03/20 05:45 Glucose (Fingerstick) 142 mg/dL (70-99) 149 mg/dL (70-99) 161 mg/dL (70-99) Prothrombin Time 20.9 SEC (11.7-14.0) Prothromb Time International Ratio 1.8 (0.8-1.1) Test 11/03/20 11:35 Glucose (Fingerstick) 159 mg/dL (70-99) Assessment and Plan Assessmemt and Plan Problems Medical Problems: (1) NSTEMI (non-ST elevated myocardial infarction) Status: Acute (2) Obtundation Status: Acute (3) Respiratory arrest Status: Acute Acute anemia Acute metabolic, infectious encephalopathy Acute respiratory failure Healthcare associated pneumonia Acute hypoglycemia Hypokalemia Elevated troponins Severe protein malnutrition Morbid obesity AAA, 4 cm, infrarenal History of diabetes mellitus type 2 History of dyslipidemia history of hypertension History of recent STEMI History of CAD History of peripheral artery disease History of JEANNE History of CVA History of paroxysmal atrial fibrillation Ischemic cardiomyopathy Plan: Monitor neurologic status. Cardiac monitoring. Continue peg feed. DVT prophylaxis. Home meds. DNR Appreciate subspecialty input (neurology) Prognosis poor, suspect he qualifies for hospice. Comment Review of Relevant I have reviewed the following items denise (where applicable) has been applied. Medications: Current Medications Medications (Trade) Dose Ordered Sig/Dru Route PRN Reason Start Time Stop Time Status Last Admin Dose Admin Warfarin Sodium (Coumadin) 4 mg DAILY16 PO 11/02/20 16:00 11/02/20 16:48 Justifications for Admission Other Justification Hypoglycemia and altered mental status. MANNY THOMASON III DO Nov 03, 2020 12:43
[2020-11-03 14:15] VITALS: BP 115/59
--- NOTE | 2020-11-03 14:42 | NUR ---
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 Target range for this patient is: 2 -3 P: Warfarin dose: 4 mg Today at 1600 Bridge Therapy: None Therapeutic Next INR due 11/05/20. Pharmacy anticoagulation service will continue to follow. PEDRO LEE RPH, 11/03/20 [id number]
[2020-11-03] MEDS: WARFARIN 4 MG TABLET. PO SCH (16:52)
[2020-11-03 19:35] VITALS: BP 144/77
[2020-11-03] MEDS: ATORVASTATIN CALCIUM 40 MG TABLET. PO SCH (20:41)
[2020-11-03 23:20] VITALS: BP 94/52
[2020-11-04 03:40] VITALS: BP 143/74
[2020-11-04] MEDS: INSULIN LISPRO 300 UNITS/3 ML VIAL. SQ SCH ×4 (06:00→17:26)
[2020-11-04 07:02] VITALS: BP 132/81
[2020-11-04] MEDS: ASPIRIN CHEWABLE 81 MG TABLET. PO SCH (09:14)
[2020-11-04] MEDS: METOPROLOL TART IMMED RELEASE 25 MG TABLET. PO SCH ×2 (09:14→22:10)
[2020-11-04] MEDS: POTASSIUM BICARB 20 MEQ EFFERVESCENT TABLET. PEG SCH (09:15)
[2020-11-04] MEDS: CLOPIDOGREL BISULFATE 75 MG TABLET PO SCH (09:15)
[2020-11-04] MEDS: PANTOPRAZOLE IV PUSH 40 MG VIAL. IVP SCH (09:16)
[2020-11-04] MEDS: FUROSEMIDE 40 MG/4 ML VIAL. IVP SCH (09:16)
[2020-11-04] MEDS: AMIODARONE HCL 200 MG TABLET. PO SCH (09:16)
[2020-11-04 10:59] VITALS: BP 126/91
--- NOTE | 2020-11-04 11:05 | PDOC ---
[employer] PROGRESS NOTE Date of Service DOS: DATE: 11/04/20 TIME: 11:02 Chief Complaint Chief Complaint Acute anemia Acute metabolic, infectious encephalopathy Acute respiratory failure Healthcare associated pneumonia Acute hypoglycemia Hypokalemia Elevated troponins Severe protein malnutrition Morbid obesity AAA, 4 cm, infrarenal History of diabetes mellitus type 2 History of dyslipidemia history of hypertension History of recent STEMI History of CAD History of peripheral artery disease History of JEANNE History of CVA History of paroxysmal atrial fibrillation Ischemic cardiomyopathy History of Present Illness History of Present Illness 11/04/2020 Patient seen and examined. Chart reviewed. Discussed with RN and director of social media marketing. Patient is still unresponsive. Pupils reactive to light and accommodation. Actively posturing at bedside. No meaningful movements. Has peg feeding at 45cc/hr. Trach shield at 8L and BIPAP PRN at 35%. 11/03/2020 Patient seen and examined. Discussed with RN and director of social media marketing. Chart reviewed. Patient is still unresponsive. Actively decorticate posturing at bedside. Eyes rolled upward. No meaningful movements. Has peg feeding at 45cc/hr. The bleeding at the peg insertion site has stopped. 11/02/2020 Patient seen and examined. Chart reviewd. Discussed with RN and director of social media marketing. Patient is still unresponsive. No meaningful movements. Actively decorticate posturing at bedside. Has peg feeding running at 45cc/hr. Some bleeding at the peg insertion site. 11/01/2020 Patient seen and examined. Discussed with director of social media marketing and RN. Patient is still unresponsive. No meaningful movements. Peg feeding is running at 45cc/hr. Patient is actively posturing at bed side. Trach shield at 8L and BIPAP PRN at 35%. 10/31/2020 Patient seen and examined. Chart reviewed. Discussed with director of social media marketing and RN. Patient still unresponsive. Patient actively posturing at bed side. Has peg running at 45cc/hr. Vestibulo-ocular reflex intact. 10/30/2020 Patient seen and examined. Discussed with director of social media marketing and RN. Chart rev iewed. Patient actively posturing at bed side. Has peg running at 45cc/hr. Mr Andrews is a 70-year-old male with a recent prolonged hospitalization for STEMI and respiratory failure for which she was treated with arterial thrombolysis for a right leg popliteal artery aneurysm and also had left heart cath with placement of a stent in the LAD and RCA comes in today after he was fo und [facility]. Apparently according to the nursing facility patient was in his usual state of health and he was conversational but then became altered. His blood glucose was found to be in the 30s. Glucose tabs and glucagon was given in route and his GCS reported at 6. Upon arrival patient's mental status did not improve and he was eventually intubated for airway protection. Of note EMS was bagging the patient through the nasal access. In the ED, patient was placed on a vent and pulmonology was consulted. Patient was also taken to the CT scanner for sanders scanning. Patient was started to wake up on the vent and sedation was ordered. 09/23: Patient examined at bedside. Intubated. Not on any sedation but unresponsive. Neurology consult in place. 09/24: Patient seen and examined at bedside. Remains intubated he is off sedation but still remains unresponsive. Planning for MRI brain in the morning. Further plan to be determined by MRI. 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 09/25: Afebrile, currently breathing on ventilator with FiO2 50%, PEEP 5. Had CODE BLUE in ICU this morning; received 2 rounds of CPR, epinephrine, and atropine with ROSC. MRI brain negative. Made DNR, and after discussion with Dr. Rubalcava he agrees. 09/26:: Afebrile. Still on vent, with FiO2 45%, PEEP 5. After discussion with Dr. Rubalcava yesterday, patient was made DNR. In the ED is likely a poor candidate for weaning trials may need trach in near future if no significant improvement. 09/27:: Afebrile. On vent with FiO2 40%, PEEP 5. Potassium 2.8 today, will replace. Warfarin has been resumed. Discussed with pharmacy, will resume aspirin and Plavix. May need tracheostomy by the end of the week if no improvement in mental status. 09/28:: Afebrile. On ventilator with FiO2 40%, PEEP 5. Warfarin has been resumed; INR 1.3 today. Some morning labs still pending; hemoglobin yesterday 7.3, will continue to monitor. Continue IV cefepime and supportive care. 09/29: Afebrile. Breathing on vent with FiO2 40%, PEEP 5. INR 1.2 today; pharmacy to help with warfarin dosing. White count within normal range, renal f unction stable. Spoke with pharmacy about cefepime 1 g every 8 hours dosing; this has been changed to cefepime 2 g every 8 hours. 09/30: Afebrile. Currently breathing on vent with FiO2 40%, PEEP 5. Continue antibiotics, cefepime 2 g every 8 hours. INR 1.4; continue warfarin dosing per pharmacy. Possible tracheostomy at some point. Critical care time 30 minutes reviewing charts, labs, examination, discussion with RN. 10/01: T-max 100.3 F. On ventilator with FiO2 40%, PEEP 5. Continue antibiotics, cefepime 2 g every 8 hours. INR 1.4, still subtherapeutic; continue warfarin dosing per pharmacy. Possible tracheostomy at some point. 10/02: No acute events overnight. Patient saturating 99% on vent settings of 10/450/40/5. Patient will likely need a trach and PEG at some point. We will hold warfarin and start 2 units PRBC transfusion. Patient's chart, labs, images were reviewed and discussed with RN 10/03: No acute events overnight. Patient sat 100% on minimal vent settings. No sedation at this point and patient is opening his eyes spontaneously. Not much response or spontaneous movements. Surgery has been consulted for tracheostomy. Patient will also likely need a PEG tube. 10/04: No acute events overnight. Patient saturating 90% on minimal vent sett ings. T-max 100.4 overnight. Plan for trach tomorrow with surgery. Patient's chart, labs, images were reviewed and discussed with RN 10/05: No acute events overnight. Patient saturating 99% on minimal vent settings. Plan for tracheostomy today. Consent is provided by authorization by 2 physicians due to patient having no close relatives or DPOA. Will resume heparin and warfarin bridging tomorrow after tracheostomy 10/07: No acute events overnight. Patient seen and examined bedside. On trach vent. Saturating 99%. Pending GI evaluation for possible PEG placement after discussing with cardiology whether to continue with Plavix. Possibly place PEG if patient is only on aspirin and stopping argatroban. 10/08: No acute events overnight. Patient continues to be on trach mechanical vent. Saturating 100%. Pending decision from GI whether to proceed with PEG placement depending on the type of anticoagulation patient will be on. 10/09: No overnight events. On trach with vent support 40% FiO2 PEEP of 5. Cur rently argatroban and propofol for minimal sedation. When sedation is weaned he has no meaningful movements but has pulled at his tracheostomy site. Unable to hold plavix due to recently placed stents. 10/10: Afebrile today. On trach with vent support 40% FiO2 PEEP of 5. Continue argatroban and changed to Aggrastat in anticipation of surgical consultation for potential laparoscopic PEG placement. INR 1.6. Hb greater than 9 no significant neurologic recovery today. 10/11: Afebrile. On trach with vent support 40% FiO2 PEEP of 5. INR 1.8. Not making meaningful eye contact. Labs otherwise stable. 10/12: Afebrile. Trach with vent support 40% FiO2 PEEP five O2 saturations 92%. INR 1.8, mag 1.8, Hb 8.4. Not following commands. Tentative plans for surgical PEG next week. 10/13: Afebrile. Trach with vent support 40% FiO2 PEEP 5. Eyes open, not tracking or following commands. Holding Plavix. On argatroban. 10/14: Afebrile. Trach with vent support 40% FiO2 PEEP of 5. Will open eyes intermittently not necessarily to voice. Good urine output. Labs stable. 10/15: Afebrile overnight. Trach with vent AC 40% fio2 PEEP 5. Had a very large bowel movement. Still not tracking. Hb 9, INR 1.7, glucose 144. Tentative plan for PEG 10/18/2020 CC time 30 minutes 10/16/20: Patient seen and examined in the ICU. He was resting and still on vent via trach. Has NG running via Dobhoff, feeding at 40cc/hr. AC/10/450/40% plus 5 PEEP. Discussed with RN. Chart reviewed. 10/17/20: Patient was seen and examined in the ICU today. Still on vent via trach at AC/10/450/40 plus 5 PEEP. While examined, patient was at 100% O2 saturation. Has SCDs on for DVT prophylaxis. Stauffer catheter in place. On IV argatroban. R subclavian triple lumen in place. Dobhoff running at 40cc/hr. Discussed with RN. Chart reviewed. 10/18/20: Patient seen and examined in ICU. His eyes are open. On vent via trach with settings that were recently changed to spontaneous respirations with FiO2 of 40 and 5 PEEP. Trach is clean and dry. Currently, oxygen saturation is at 100%. Stauffer to bedside and rectal bag in place. Discussed with RN. Chart reviewed. 10/19/20: Patient was seen and examined in the ICU today. His eyes were open and he was resting. On BiPAP via trach AVAPS/10/450/40 plus 5 PEEP. Trach is clean and dry. Has SCDs for DVT prophylaxis. Patient has rectal bag, Stauffer to bedside, and NG tube in place. Discussed with RN. Chart reviewed. 10/20/20 No acute events overnight. Patient seen and examined bedside. Transferred from the ICU. Continues to be nonverbal and not following much commands. Opens eyes to voice. Currently on BiPAP via trach on AVAPS setting 10/450/40 PEEP of 5. Trach site is clear. No signs of infections. Patient's chart, labs, images were reviewed and discussed with RN 10/21/2020 No acute events overnight. Patient seen and examined bedside. Afebrile. Continues to be nonverbal but opens eyes to voice. Currently on BiPAP. Patient's chart, labs, images were reviewed and discussed with RN. 10/22/2020 No acute events overnight. Patient seen examined bedside. Continue with argatroban until warfarin goal INR of 4 and maintenance goal of 2-3. Please see meat products demonstrator note. Pending appointing a legal guardian. Patient's chart, labs, images were reviewed and discussed with RN 10/23/2020 laparoscopic gastrostomy tube placement (specifically 24 F) Oct discharge planning in place once court appointed DPOA available Acute anemia Acute metabolic, infectious encephalopathy Acute respiratory failure Healthcare associated pneumonia Acute hypoglycemia Hypokalemia Elevated troponins Severe protein malnutrition Morbid obesity AAA, 4 cm, infrarenal History of diabetes mellitus type 2 History of dyslipidemia history of hypertension Patient seen examined bedside. argatroban until warfarin goal INR of 4 and maintenance goal of 2-3. Pending appointing a legal guardian. Patient's chart, labs, images were reviewed and discussed with RN Dobhoff Enteric tube with metallic tip in the left upper quadrant likely in the stomach. 10/24/2020 doing well on trach shield on a 24-hour basis./ blood gases shows no worsening hypercapnia while on trach shield. No apneic breathing reported. laparoscopic gastrostomy tube placement (specifically 24 F) Oct discharge planning in place once court appointed DPOA available Acute anemia Acute metabolic, infectious encephalopathy Acute respiratory failure Healthcare associated pneumonia Acute hypoglycemia Hypokalemia Elevated troponins Severe protein malnutrition Morbid obesity AAA, 4 cm, infrarenal History of diabetes mellitus type 2 History of dyslipidemia history of hypertension Patient seen examined bedside. argatroban until warfarin goal INR of 4 and maintenance goal of 2-3. Pending appointing a legal guardian. Patient's chart, labs, images were reviewed and discussed with KARY Cardenas Enteric tube with metallic tip in the left upper quadrant likely in the stomach. Home on plavix and warfarin D/C INITIAL PLAN TO [facility] PENDING/ discharge planning in place once court appointed DPOA available D/W RN 10/25/2020 doing well on trach shield on a 24-hour basis./ blood gases shows no worsening hypercapnia while on trach shield. No apneic breathing reported. laparoscopic gastrostomy tube placement (specifically 24 F) Oct discharge planning in place once court appointed DPOA available Acute anemia Acute metabolic, infectious encephalopathy Acute respiratory failure Healthcare associated pneumonia Acute hypoglycemia Hypokalemia Elevated troponins Severe protein malnutrition Morbid obesity AAA, 4 cm, infrarenal History of diabetes mellitus type 2 History of dyslipidemia history of hypertension Patient seen examined bedside. argatroban until warfarin goal INR of 4 and maintenance goal of 2-3. Pending appointing a legal guardian. Patient's chart, labs, images were reviewed and discussed with KARY Cardenas Enteric tube with metallic tip in the left upper quadrant likely in the stomach. Home on plavix and warfarin D/C INITIAL PLAN TO [facility] PENDING/ discharge planning in place once court appointed DPOA available D/W RN 10/26/2020 HGB 9.4 doing well on trach shield on a 24-hour basis./ blood gases shows no worsening hypercapnia while on trach shield. No apneic breathing reported. laparoscopic gastrostomy tube placement (specifically 24 F) Oct discharge planning in place once court appointed DPOA available Acute anemia Acute metabolic, infectious encephalopathy Acute respiratory failure Healthcare associated pneumonia Acute hypoglycemia Hypokalemia Elevated troponins Severe protein malnutrition Morbid obesity AAA, 4 cm, infrarenal History of diabetes mellitus type 2 History of dyslipidemia history of hypertension Patient seen examined bedside. argatroban until warfarin goal INR of 4 and maintenance goal of 2-3. Pending appointing a legal guardian. Patient's chart, labs, images were reviewed and discussed with KARY Cardenas Enteric tube with metallic tip in the left upper quadrant likely in the stomach. Home on plavix and warfarin D/C INITIAL PLAN TO [facility] PENDING/ discharge planning in place once court appointed DPOA available D/W RN 10/27/2020 HGB 9.4 doing well on trach shield on a 24-hour basis./ blood gases shows no worsening hypercapnia while on trach shield. No apneic breathing reported. laparoscopic gastrostomy tube placement (specifically 24 F) Oct discharge planning in place once court appointed DPOA available Acute anemia Acute metabolic, infectious encephalopathy Acute respiratory failure Healthcare associated pneumonia Acute hypoglycemia Hypokalemia Elevated troponins Severe protein malnutrition Morbid obesity AAA, 4 cm, infrarenal History of diabetes mellitus type 2 History of dyslipidemia history of hypertension Patient seen examined bedside. argatroban until warfarin goal INR of 4 and maintenance goal of 2-3. Pending appointing a legal guardian. Patient's chart, labs, images were reviewed and discussed with KARY Cardenas Enteric tube with metallic tip in the left upper quadrant likely in the stomach. Home on plavix and warfarin D/C INITIAL PLAN TO [facility] PEND[facility]/ discharge planning in place once court appointed DPOA available D/W RN 10/28/2020 HGB 9.4 doing well on trach shield on a 24-hour basis./ blood gases shows no worsening hypercapnia while on trach shield. No apneic breathing reported. laparoscopic gastrostomy tube placement (specifically 24 F) Oct discharge planning in place once court appointed DPOA available Acute anemia Acute metabolic, infectious encephalopathy Acute respiratory failure Healthcare associated pneumonia Acute hypoglycemia Hypokalemia Elevated troponins Severe protein malnutrition Morbid obesity AAA, 4 cm, infrarenal History of diabetes mellitus type 2 History of dyslipidemia history of hypertension Patient seen examined bedside. argatroban until warfarin goal INR of 4 and maintenance goal of 2-3. Pending appointing a legal guardian. Patient's chart, labs, images were reviewed and discussed with KARY Cardenas Enteric tube with metallic tip in the left upper quadrant likely in the stomach. Home on plavix and warfarin D/C INITIAL PLAN TO [facility]END[facility]/ discharge planning in place once court appointed DPOA available D/W RN Vitals/I&O Vitals/I&O: Vital Signs Date Time Temp Pulse Resp B/P (MAP) Pulse Ox O2 Delivery O2 Flow Rate FiO2 11/04/20 10:59 99.1 79 20 126/91 (103) 100 Tracheal Collar 99.1 11/04/20 04:00 8.0 I & O 11/03/20 11/03/20 11/04/20 15:00 23:00 07:00 Intake Total 1017 ml 890 ml 200 ml Output Total 800 ml 350 ml Balance 1017 ml 90 ml -150 ml Physical Exam Physical Exam: Neuro: actively posturing. Pulpils dialated but reactive to light and accomendation. Flaccidity in the lower extremity bilaterally. Equivocal Babinski. General: Other (actively posturing. No meaningful movements. ) Heart: Regular rate (SR), Other (distant heart sounds) Lungs: Other (Tracheostomy with trach shield. Deminished breath sounds.) Abdomen: Soft, Other (g tube in place) Extremities: No cyanosis, Other (2-3+ bilateral LE pitting edema) Skin: No rashes, No significant lesion Labs Labs: Laboratory Tests Test 11/03/20 11:35 11/03/20 17:09 11/04/20 00:32 Glucose (Fingerstick) 159 mg/dL (70-99) 153 mg/dL (70-99) 132 mg/dL (70-99) Assessment and Plan Assessmemt and Plan Problems Medical Problems: (1) NSTEMI (non-ST elevated myocardial infarction) Status: Acute (2) Obtundation Status: Acute (3) Respiratory arrest Status: Acute Acute anemia Acute metabolic, infectious encephalopathy Acute respiratory failure Healthcare associated pneumonia Acute hypoglycemia Hypokalemia Elevated troponins Severe protein malnutrition Morbid obesity AAA, 4 cm, infrarenal History of diabetes mellitus type 2 History of dyslipidemia history of hypertension History of recent STEMI History of CAD History of peripheral artery disease History of JEANNE History of CVA History of paroxysmal atrial fibrillation Ischemic cardiomyopathy Plan: Monitor neurologic status. Cardiac monitoring. Follow INR level with warfarin administration Continue peg feed. DVT prophylaxis. Home meds. DNR Appreciate subspecialty input (neurology) Prognosis poor, suspect he qualifies for hospice. Comment Review of Relevant I have reviewed the following items denise (where applicable) has been applied. Justifications for Admission Other Justification Hypoglycemia and altered mental status. MANNY THOMASON III DO Nov 04, 2020 11:05
[2020-11-04 15:04] VITALS: BP 123/72
[2020-11-04] MEDS: WARFARIN 4 MG TABLET. PO SCH (17:22)
[2020-11-04 19:00] VITALS: BP 121/63
[2020-11-04] MEDS: ATORVASTATIN CALCIUM 40 MG TABLET. PO SCH (22:10)
[2020-11-04 23:00] VITALS: BP 139/68
[2020-11-05 02:40] VITALS: BP 138/74
[2020-11-05] MEDS: INSULIN LISPRO 300 UNITS/3 ML VIAL. SQ SCH ×4 (06:00→17:48)
[2020-11-05 06:24] LABS: PROTHROMBIN TIME PATIENT 22.2 SEC (11.7-14.0)
[2020-11-05 07:00] VITALS: BP 99/67
[2020-11-05] MEDS: FUROSEMIDE 40 MG/4 ML VIAL. IVP SCH (09:00)
[2020-11-05] MEDS: ASPIRIN CHEWABLE 81 MG TABLET. PO SCH (09:40)
[2020-11-05] MEDS: METOPROLOL TART IMMED RELEASE 25 MG TABLET. PO SCH ×2 (09:41→21:51)
[2020-11-05] MEDS: POTASSIUM BICARB 20 MEQ EFFERVESCENT TABLET. PEG SCH (09:41)
[2020-11-05] MEDS: PANTOPRAZOLE IV PUSH 40 MG VIAL. IVP SCH (09:44)
[2020-11-05] MEDS: CLOPIDOGREL BISULFATE 75 MG TABLET PO SCH (09:44)
[2020-11-05] MEDS: AMIODARONE HCL 200 MG TABLET. PO SCH (09:44)
[2020-11-05 10:09] VITALS: BP 108/65
--- NOTE | 2020-11-05 10:55 | NUR ---
Pharmacy Warfarin Dosing Note S:Pharmacy consulted to assist with anticoagulation therapy started with target INR: 2 -3 O:DEMETRICE HOWE is a 70 year old M with Atrial Fibrillation; DVT/PE; HIT LABS: Last INR: 2 Last HGB: 9.2 Last HCT: 27.9 Last PLT: 266 Last dose of 4 mg given on 11/04/20 at 1722 Vitamin K given: N Drug Interaction Changes: Same Interacting Drug Ongoing Drug Interactions: amiodarone A:INR of 2 is within desired range. Target range for this patient is: 2 -3 P: Warfarin dose: 4 mg Today at 1600 Bridge Therapy: None Next INR due 11/07/20 Pharmacy anticoagulation service will continue to follow. NICK JONES RPH, 11/05/20 [id number]
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
[2020-11-05] MEDS: DOCUSATE 100 MG/10 ML SOLUTION. PO SCH (12:38)
[2020-11-05 14:05] VITALS: BP 127/70
[2020-11-05] MEDS: WARFARIN 4 MG TABLET. PO SCH (17:52)
[2020-11-05 19:35] VITALS: BP 124/88
[2020-11-05] MEDS: ATORVASTATIN CALCIUM 40 MG TABLET. PO SCH (21:51)
[2020-11-05 23:00] VITALS: BP 118/67
[2020-11-06 03:00] VITALS: BP 140/79
[2020-11-06] MEDS: INSULIN LISPRO 300 UNITS/3 ML VIAL. SQ SCH ×4 (06:00→18:00)
[2020-11-06 07:00] VITALS: BP 140/75
[2020-11-06] MEDS: ASPIRIN CHEWABLE 81 MG TABLET. PO SCH (08:34)
[2020-11-06] MEDS: DOCUSATE 100 MG/10 ML SOLUTION. PO SCH (08:34)
[2020-11-06] MEDS: AMIODARONE HCL 200 MG TABLET. PO SCH (08:35)
[2020-11-06] MEDS: CLOPIDOGREL BISULFATE 75 MG TABLET PO SCH (08:36)
[2020-11-06] MEDS: POTASSIUM BICARB 20 MEQ EFFERVESCENT TABLET. PEG SCH (08:36)
[2020-11-06] MEDS: METOPROLOL TART IMMED RELEASE 25 MG TABLET. PO SCH ×2 (08:37→23:05)
[2020-11-06] MEDS: PANTOPRAZOLE IV PUSH 40 MG VIAL. IVP SCH (08:37)
[2020-11-06] MEDS: FUROSEMIDE 40 MG/4 ML VIAL. IVP SCH (08:39)
--- NOTE | 2020-11-06 10:40 | PDOC ---
PROGRESS NOTES Date of Service DATE: 11/06/20 TIME: 10:39 Assessment Problems Medical Problems: (1) NSTEMI (non-ST elevated myocardial infarction) Status: Acute (2) Obtundation Status: Acute (3) Respiratory arrest Status: Acute Anoxic encephalopathy Found obtunded at [facility], admitted 09/22, unresponsive, hypoglycemic, no new stroke on MRI CODE BLUE on 09/26 Last admit had prolonged encephalopathy following the development of cardiogenic shock, STEMI, with negative EEG and CT head Remote history of seizures Critical illness neuropathy/myopathy Respiratory failure Last admit and this admit: septic shock, leukocytosis, lactic acidosis, acute kidney injury, 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4 Intake and Output 11/06/20 07:00 Intake Total 1677 ml Output Total 1275 ml Balance 402 ml Intake Oral 0 ml Tube Feeding 1677 ml Output Urine Total 1275 ml PHYSICAL EXAM Trached on BiPAP Eyes fixed in elevation, neck extended, arms flexed, legs extended PERRL. EOMI. CN: no focal findings. Muscle tone: increased Muscle strength: arms flexed, some purposeful movement DTR: 1+ Plantar reflex: Silent Gait: not examined Sensory exam: Not testable Cerebellar: not testable Review of Relevant I have reviewed the following items denise (where applicable) has been applied. Labs Laboratory Tests Test 11/04/20 12:09 11/04/20 17:13 11/05/20 06:00 11/05/20 11:25 Glucose (Fingerstick) 180 mg/dL (70-99) 169 mg/dL (70-99) 163 mg/dL (70-99) Prothrombin Time 22.2 SEC (11.7-14.0) Prothromb Time International Ratio 2.0 (0.8-1.1) Test 11/05/20 17:08 11/05/20 17:14 11/06/20 00:14 11/06/20 06:00 Glucose (Fingerstick) 159 mg/dL (70-99) 167 mg/dL (70-99) 145 mg/dL (70-99) 153 mg/dL (70-99) Laboratory Tests Test 11/05/20 11:25 11/05/20 17:08 11/05/20 17:14 11/06/20 00:14 Glucose (Fingerstick) 163 mg/dL (70-99) 159 mg/dL (70-99) 167 mg/dL (70-99) 145 mg/dL (70-99) Test 11/06/20 06:00 Glucose (Fingerstick) 153 mg/dL (70-99) Medications Current Medications Fentanyl Citrate 30 ml @ 0 mls/hr CONT PRN IV SEE PROTOCOL; Start 09/22/20 at 09:45; Stop 10/13/20 at 09:24; Status DC Propofol 100 ml @ 0 mls/hr CONT PRN IV PER PROTOCOL Last administered on 09/22/20at 10:30; Start 09/22/20 at 09:45; Stop 09/26/20 at 20:12; Status DC Fentanyl Citrate (Fentanyl 2ml Vial) 25 mcg PRN Q1HR PRN IV SEE COMMENTS; Start 09/22/20 at 09:45; Stop 10/24/20 at 18:57; Status DC Fentanyl Citrate (Fentanyl 2ml Vial) 50 mcg PRN Q1HR PRN IV SEE COMMENTS Last administered on 10/03/20at 01:22; Start 09/22/20 at 09:45; Stop 10/24/20 at 18:57; Status DC Chlorhexidine Gluconate (Peridex) 15 ml BID MM ; Start 09/22/20 at 10:00; Stop 09/22/20 at 19:54; Status DC Midazolam HCl (Versed) 2 mg 1X ONCE IV ; Start 09/22/20 at 10:30; Stop 09/22/20 at 10:31; Status DC Iohexol (Omnipaque 300 Mg/ml) 75 ml 1X ONCE IV Last administered on 09/22/20at 11:06; Start 09/22/20 at 10:45; Stop 09/22/20 at 10:46; Status DC Info (CONTRAST GIVEN -- Rx MONITORING) 1 each PRN DAILY PRN MC SEE COMMENTS; Start 09/22/20 at 10:45; Stop 09/24/20 at 10:44; Status DC Potassium Chloride/Water 100 ml @ 100 mls/hr Q1H IV Last administered on 09/22/20at 20:27; Start 09/22/20 at 15:00; Stop 09/22/20 at 18:59; Status DC Cefepime HCl (Maxipime) 1 gm Q8HRS IVP Last administered on 09/29/20at 05:52; Start 09/22/20 at 14:00; Stop 09/29/20 at 10:32; Status DC Sennosides (Senna) 17.2 mg PRN BID PRN PO CONSTIPATION; Start 09/22/20 at 14:00 Docusate Sodium (Colace) 100 mg PRN DAILY PRN PO HARD STOOLS; Start 09/22/20 at 14:00; Stop 09/22/20 at 14:00; Status DC Ondansetron HCl (Zofran) 4 mg PRN Q6HRS PRN IVP NAUSEA/VOMITING, 1ST CHOICE; Start 09/22/20 at 14:00 Insulin Human Lispro (HumaLOG) 0-7 UNITS Q6HRS SQ Last administered on 11/03/20at 18:13; Start 09/22/20 at 18:00 Dextrose (Dextrose 50%-Water Syringe) 12.5 gm PRN Q15MIN PRN IV SEE COMMENTS Last administered on 09/22/20at 17:47; Start 09/22/20 at 14:00 Dextrose/Sodium Chloride 1,000 ml @ 50 mls/hr Q20H IV Last administered on 10/12/20at 11:04; Start 09/22/20 at 14:00; Stop 10/13/20 at 09:24; Status DC Acetaminophen (Tylenol) 650 mg PRN Q4HRS PRN PO TEMP OVER 100.4F OR MILD PAIN Last administered on 09/23/20at 00:20; Start 09/22/20 at 14:00; Stop 09/23/20 at 16:24; Status DC Enoxaparin Sodium (Lovenox 40mg Syringe) 40 mg Q24H SQ ; Start 09/22/20 at 14:00; Status UNV Pantoprazole Sodium (PROTONIX VIAL for IV PUSH) 40 mg DAILY IVP Last administered on 11/06/20at 08:37; Start 09/23/20 at 09:00 Prochlorperazine Edisylate (Compazine) 10 mg PRN Q6HRS PRN IV NAUSEA/VOMITING, 2ND CHOICE; Start 09/22/20 at 14:00 Etomidate (Amidate) 20 mg STK-MED ONCE IV ; Start 09/22/20 at 17:46; Stop 09/22/20 at 17:46; Status DC Rocuronium [place] (Zemuron) 50 mg STK-MED ONCE .ROUTE ; Start 09/22/20 at 17:46; Stop 09/22/20 at 17:47; Status DC Norepinephrine Bitartrate 8 mg/ Dextrose 258 ml @ 21.769 mls/ hr CONT PRN IV PER PROTOCOL Last administered on 09/24/20at 13:20; Start 09/22/20 at 18:15; Stop 10/13/20 at 09:24; Status DC Potassium Chloride/Water 100 ml @ 100 mls/hr Q1H IV Last administered on 09/23/20at 14:30; Start 09/23/20 at 07:00; Stop 09/23/20 at 14:59; Status DC Acetaminophen (Tylenol) 650 mg PRN Q6HRS PRN PEG MILD PAIN / TEMP > 100.3'F Last administered on 10/29/20at 09:35; Start 09/23/20 at 16:30 Warfarin Sodium (Coumadin Per Pharmacy) 1 each PRN DAILY PRN MC SEE COMMENTS Last administered on 10/01/20at 12:32; Start 09/24/20 at 12:30; Stop 10/02/20 at 05:55; Status DC Warfarin Sodium (Coumadin) 5 mg 1X WARF ONCE PO Last administered on 09/24/20at 17:42; Start 09/24/20 at 16:00; Stop 09/24/20 at 16:01; Status DC Warfarin Sodium (Coumadin - No Dose Today) 1 each 1X WARF ONCE MC ; Start 09/25/20 at 16:00; Stop 09/25/20 at 16:01; Status DC Warfarin Sodium (Coumadin) 1 mg 1X WARF ONCE PO Last administered on 09/26/20at 16:00; Start 09/26/20 at 16:00; Stop 09/26/20 at 16:01; Status DC Propofol 100 ml @ 3.174 mls/ hr CONT PRN IV PER PROTOCOL Last administered on 10/09/20at 04:43; Start 09/26/20 at 20:15; Stop 10/13/20 at 09:24; Status DC Atropine Sulfate (ATROPINE 1mg SYRINGE) 1 mg STK-MED ONCE .ROUTE ; Start 09/25/20 at 10:00; Stop 09/27/20 at 08:20; Status DC Epinephrine HCl (EPINEPHrine SYRINGE) 1 mg STK-MED ONCE .ROUTE ; Start 09/25/20 at 10:00; Stop 09/27/20 at 08:20; Status DC Warfarin Sodium (Coumadin) 2 mg 1X WARF ONCE PO Last administered on 09/27/20at 17:53; Start 09/27/20 at 16:00; Stop 09/27/20 at 16:01; Status DC Aspirin (Aspirin Chewable) 81 mg DAILYWBKFT PO Last administered on 10/06/20at 11:39; Start 09/27/20 at 09:30; Stop 10/06/20 at 16:23; Status DC Clopidogrel Bisulfate (Plavix) 75 mg DAILYWBKFT PO Last administered on 10/09/20at 09:24; Start 09/27/20 at 09:30; Stop 10/09/20 at 17:03; Status DC Potassium Chloride/Water 100 ml @ 100 mls/hr Q1H IV Last administered on 09/27/20at 12:45; Start 09/27/20 at 11:30; Stop 09/27/20 at 13:29; Status DC Warfarin Sodium (Coumadin) 3 mg 1X WARF ONCE PO Last administered on 09/28/20at 18:18; Start 09/28/20 at 16:00; Stop 09/28/20 at 16:01; Status DC Cefepime HCl (Maxipime) 2 gm Q8HRS IVP Last administered on 10/20/20at 05:36; Start 09/29/20 at 14:00; Stop 10/20/20 at 13:23; Status DC Warfarin Sodium (Coumadin) 3 mg 1X WARF ONCE PO Last administered on 09/29/20at 16:55; Start 09/29/20 at 16:00; Stop 09/29/20 at 16:01; Status DC Warfarin Sodium (Coumadin) 3 mg 1X WARF ONCE PO Last administered on 09/30/20at 16:00; Start 09/30/20 at 16:00; Stop 09/30/20 at 16:01; Status DC Warfarin Sodium (Coumadin) 5 mg 1X WARF ONCE PO Last administered on 10/01/20at 16:35; Start 10/01/20 at 16:00; Stop 10/01/20 at 16:01; Status DC Multi-Ingred Cream/Lotion/Oil/ Oint (Artificial Tears Eye Ointment) 1 sudheer PRN Q1HR PRN OU DRY EYE Last administered on 10/03/20at 12:24; Start 10/02/20 at 12:45 Fentanyl Citrate (Fentanyl 2ml Vial) 25 mcg PRN Q5MIN PRN IVP MILD PAIN 1-3; Start 10/05/20 at 06:00; Stop 10/06/20 at 05:59; Status DC Fentanyl Citrate (Fentanyl 2ml Vial) 50 mcg PRN Q5MIN PRN IVP MODERATE PAIN 4- 6; Start 10/05/20 at 06:00; Stop 10/06/20 at 05:59; Status DC Morphine Sulfate (Morphine Sulfate) 1 mg PRN Q10MIN PRN IVP SEVERE PAIN 7-10; Start 10/05/20 at 06:00; Stop 10/06/20 at 05:59; Status UNV Ringer's Solution 1,000 ml @ 30 mls/hr Q24H IV ; Start 10/05/20 at 06:00; Stop 10/05/20 at 17:59; Status DC Hydromorphone HCl (Dilaudid) 0.5 mg PRN Q10MIN PRN IVP SEVERE PAIN 7-10, 2nd CHOICE; Start 10/05/20 at 06:00; Stop 10/06/20 at 05:59; Status UNV Prochlorperazine Edisylate (Compazine) 5 mg PACU PRN PRN IVP NAUSEA, MRX1; Start 10/05/20 at 06:00; Stop 10/06/20 at 05:59; Status DC Bupivacaine HCl/ Epinephrine Bitart (Sensorcain-Epi 0.5%-1:401496 Mpf) 30 ml STK-MED ONCE .ROUTE Last administered on 10/05/20at 10:09; Start 10/05/20 at 07:12; Stop 10/05/20 at 07:12; Status DC Cellulose (Surgicel Fibrillar 1x2) 1 each STK-MED ONCE .ROUTE Last administered on 10/05/20at 10:30; Start 10/05/20 at 07:12; Stop 10/05/20 at 07:12; Status DC Rocuronium [place] (Zemuron) 50 mg STK-MED ONCE .ROUTE ; Start 10/05/20 at 09:06; Stop 10/05/20 at 09:06; Status DC Rocuronium [place] (Zemuron) 50 mg STK-MED ONCE .ROUTE ; Start 10/05/20 at 10:10; Stop 10/05/20 at 10:10; Status DC Warfarin Sodium (Coumadin Per Pharmacy) 1 each PRN DAILY PRN MC SEE COMMENTS Last administered on 10/06/20at 09:32; Start 10/05/20 at 14:00; Stop 10/06/20 at 16:23; Status DC Argatroban (Argatroban Per Pharmacy) 1 each PRN DAILY PRN MC SEE COMMENTS Last administered on 10/13/20at 16:34; Start 10/05/20 at 14:00; Stop 10/24/20 at 09:37; Status DC Argatroban 50 mg/ Sodium Chloride 50 ml @ 6.48 mls/hr CONT PRN IV ADJUST PER PTT; Start 10/05/20 at 14:00; Stop 10/05/20 at 13:59; Status DC Argatroban 50 mg/ Sodium Chloride 50 ml @ 6.48 mls/hr CONT PRN IV ADJUST PER PTT; Start 10/06/20 at 00:00; Status Cancel Warfarin Sodium (Coumadin) 5 mg 1X WARF ONCE PO Last administered on 10/05/20at 21:23; Start 10/05/20 at 16:00; Stop 10/05/20 at 16:01; Status DC Argatroban 50 mg/ Sodium Chloride 50 ml @ 0 mls/hr CONT PRN IV PER PROTOCOL Last administered on 10/19/20at 22:13; Start 10/06/20 at 09:00; Stop 10/20/20 at 13:02; Status DC Warfarin Sodium (Coumadin) 5 mg 1X WARF ONCE PO ; Start 10/06/20 at 16:00; Stop 10/06/20 at 16:01; Status Cancel Amiodarone HCl (Cordarone) 400 mg DAILY PO Last administered on 11/06/20at 08:35; Start 10/06/20 at 10:00 Atorvastatin Calcium (Lipitor) 40 mg QHS PO Last administered on 11/05/20at 21:51; Start 10/06/20 at 21:00 Metoprolol Tartrate (Lopressor) 25 mg BID PO Last administered on 11/06/20at 08:37; Start 10/06/20 at 10:00 Furosemide (Lasix) 40 mg DAILY IVP Last administered on 11/06/20at 08:39; Start 10/06/20 at 10:00 Potassium Bicarbonate (Potassium Effervescent Tablet) 20 meq DAILY PEG Last administered on 11/06/20at 08:36; Start 10/06/20 at 10:00 Tirofiban/Sodium Chloride 100 ml @ 0 mls/hr CONT PRN IV PER PROTOCOL Last administered on 10/11/20at 14:11; Start 10/09/20 at 17:00; Stop 10/11/20 at 20:21; Status DC Albumin Human 100 ml @ 100 mls/hr 1X ONCE IV Last administered on 10/12/20at 15:22; Start 10/12/20 at 14:00; Stop 10/12/20 at 14:59; Status DC Furosemide (Lasix) 40 mg 1X ONCE IVP Last administered on 10/12/20at 15:22; Start 10/12/20 at 15:00; Stop 10/12/20 at 15:01; Status DC Aspirin (Aspirin Chewable) 81 mg 1X ONCE PO Last administered on 10/13/20at 12:25; Start 10/13/20 at 10:30; Stop 10/13/20 at 10:31; Status DC Aspirin (Aspirin Chewable) 81 mg DAILYWBKFT PO Last administered on 11/06/20at 08:34; Start 10/14/20 at 08:00 Fentanyl Citrate (Fentanyl 2ml Vial) 25 mcg PRN Q5MIN PRN IVP MILD PAIN 1-3; Start 10/18/20 at 06:00; Stop 10/18/20 at 20:00; Status DC Ringer's Solution 1,000 ml @ 30 mls/hr Q24H IV Last administered on 10/18/20at 06:00; Start 10/18/20 at 06:00; Stop 10/18/20 at 17:59; Status DC Bupivacaine HCl/ Epinephrine Bitart (Sensorcain-Epi 0.5% Kit) 30 ml STK-MED ONCE .ROUTE Last administered on 10/18/20at 11:04; Start 10/18/20 at 10:23; Stop 10/18/20 at 10:24; Status DC Rocuronium [place] (Zemuron) 50 mg STK-MED ONCE .ROUTE ; Start 10/18/20 at 10:48; Stop 10/18/20 at 10:48; Status DC Sevoflurane (Ultane) 60 ml STK-MED ONCE IH ; Start 10/18/20 at 11:13; Stop 10/18/20 at 11:13; Status DC Fentanyl Citrate (Fentanyl 2ml Vial) 100 mcg STK-MED ONCE .ROUTE ; Start 10/18/20 at 11:14; Stop 10/18/20 at 11:14; Status DC Phenylephrine HCl (PHENYLEPHRINE in 0.9% NACL PF) 1 mg STK-MED ONCE IV ; Start 10/18/20 at 11:55; Stop 10/18/20 at 11:56; Status DC Argatroban (Argatroban Per Pharmacy) 1 each PRN DAILY PRN MC SEE COMMENTS; Start 10/19/20 at 10:30; Status UNV Clopidogrel Bisulfate (Plavix) 75 mg DAILYWBKFT PO Last administered on 11/06/20at 08:36; Start 10/19/20 at 14:00 Warfarin Sodium (Coumadin Per Pharmacy) 1 each PRN DAILY PRN MC SEE COMMENTS Last administered on 11/05/20at 10:54; Start 10/19/20 at 13:15 Warfarin Sodium (Coumadin) 5 mg 1X WARF ONCE PO Last administered on 10/19/20at 15:24; Start 10/19/20 at 16:00; Stop 10/19/20 at 16:01; Status DC Warfarin Sodium (Coumadin) 5 mg 1X WARF ONCE PO Last administered on 10/20/20at 19:10; Start 10/20/20 at 16:00; Stop 10/20/20 at 16:01; Status DC Argatroban 50 mg/ Sodium Chloride 50 ml @ 0 mls/hr CONT PRN IV PER PROTOCOL Last administered on 10/24/20at 01:10; Start 10/20/20 at 13:15; Stop 10/24/20 at 09:37; Status DC Warfarin Sodium (Coumadin) 6 mg 1X WARF ONCE PO Last administered on 10/21/20at 17:56; Start 10/21/20 at 16:00; Stop 10/21/20 at 16:01; Status DC Warfarin Sodium (Coumadin) 7.5 mg 1X WARF ONCE PO Last administered on 10/22/20at 17:45; Start 10/22/20 at 16:00; Stop 10/22/20 at 16:01; Status DC Warfarin Sodium (Coumadin) 6 mg 1X WARF ONCE PO Last administered on 10/23/20at 17:05; Start 10/23/20 at 16:00; Stop 10/23/20 at 16:01; Status DC Warfarin Sodium (Coumadin) 4 mg 1X WARF ONCE PO ; Start 10/24/20 at 16:00; Stop 10/24/20 at 10:45; Status DC Warfarin Sodium (Coumadin) 4 mg 1X WARF ONCE PO Last administered on 10/24/20at 17:52; Start 10/24/20 at 16:00; Stop 10/24/20 at 16:01; Status DC Warfarin Sodium (Coumadin) 5 mg 1X WARF ONCE PO Last administered on 10/25/20at 16:51; Start 10/25/20 at 16:00; Stop 10/25/20 at 16:01; Status DC Warfarin Sodium (Coumadin) 6 mg 1X WARF ONCE PO Last administered on 10/26/20at 17:24; Start 10/26/20 at 16:00; Stop 10/26/20 at 16:01; Status DC Alteplase, Recombinant (Cathflo For Central Catheter Clearance) 1 mg 1X ONCE INT CAT Last administered on 10/26/20at 21:50; Start 10/26/20 at 18:30; Stop 10/26/20 at 18:31; Status DC Warfarin Sodium (Coumadin) 6 mg 1X WARF ONCE PO Last administered on 10/27/20at 16:00; Start 10/27/20 at 16:00; Stop 10/27/20 at 16:01; Status DC Warfarin Sodium (Coumadin) 5 mg 1X WARF ONCE PO Last administered on 10/28/20at 18:32; Start 10/28/20 at 16:00; Stop 10/28/20 at 16:01; Status DC Warfarin Sodium (Coumadin) 4 mg 1X WARF ONCE PO Last administered on 10/29/20at 16:51; Start 10/29/20 at 16:00; Stop 10/29/20 at 16:01; Status DC Warfarin Sodium (Coumadin - No Dose Today) 1 each 1X WARF ONCE MC ; Start 10/30/20 at 16:00; Stop 10/30/20 at 16:01; Status DC Warfarin Sodium (Coumadin) 4 mg 1X WARF ONCE PO Last administered on 10/31/20at 15:45; Start 10/31/20 at 16:00; Stop 10/31/20 at 16:01; Status DC Warfarin Sodium (Coumadin) 4 mg 1X WARF ONCE PO ; Start 11/01/20 at 16:00; Stop 11/01/20 at 16:00; Status DC Warfarin Sodium (Coumadin) 4 mg DAILY16 PO Last administered on 11/05/20at 17:52; Start 11/02/20 at 16:00 Docusate Sodium (Colace Solution) 100 mg DAILY PO Last administered on at 08:34; Start 11/05/20 at 12:00 Active Scripts Active Amiodarone Hcl 200 Mg Tablet 400 Mg PO DAILY 90 Days [Warfarin Per Pharmacy] 1 EACH Each 1 Each MC PRN DAILY PRN 30 Days Clopidogrel (Clopidogrel Bisulfate) 75 Mg Tablet 75 Mg PO DAILYWBKFT 90 Days Humalog (Insulin Lispro) 100 Unit/1 Ml Insuln.pen 0 Units SQ TIDWMEALS 30 Days Duoneb 0.5-3(2.5) Mg/3 Ml (Albuterol/Ipratropium) 3 Ml Ampul.neb 3 Ml NEB RTQID 30 Days Aspirin 325 Mg Tablet 325 Mg PO DAILYWBKFT 30 Days Metoprolol Tartrate 25 Mg Tablet 25 Mg PO BID 30 Days Montelukast Sodium Tablet (Montelukast Sodium) 10 Mg Tablet 10 Mg PO QHS Gabapentin 600 Mg Tablet 600 Mg PO BID 30 Days Reported Glimepiride 4 Mg Tablet 1 Tab PO DAILY Furosemide 40 Mg Tablet 1 Tab PO BID Symbicort 160-4.5 Mcg Inhaler (Budesonide/Formoterol Fumarate) 10.2 Gm Hfa.aer.ad 1 Puff INH DAILY Losartan-Hctz 100-12.5 Mg Tab (Losartan/Hydrochlorothiazide) 1 Each Tablet 1 Tab PO DAILY Nitrofurantoin [place]-Mcr 100 Mg (Nitrofurantoin Monohyd/M-Cryst) 100 Mg Capsule 1 Cap PO BID Betamethasone Valerate 60 Ml Lotion 1 TP QHS Atorvastatin Calcium 40 Mg Tablet 1 Tab PO DAILY Diltiazem 24Hr Cd (Diltiazem HCl) 240 Mg Cap.er.24h 1 Cap PO DAILY Nystop (Nystatin) 60 Gm Powder 1 Sudheer TP BID Pepcid (Famotidine) 20 Mg Tablet 20 Mg PO BID Vitals/I & O Vital Sign - Last 24 Hours 11/05/20 11/05/20 11/05/20 11/05/20 11:51 12:00 14:05 16:00 Temp 99.0 99.0 Pulse 74 Resp 16 B/P (MAP) 127/70 (89) Pulse Ox 100 100 O2 Delivery Tracheal Collar trach shield O2 Flow Rate 8.0 8.0 8.0 8.0 11/05/20 11/05/20 11/05/20 11/05/20 16:07 19:35 20:20 21:40 Temp 98.5 98.5 Pulse 78 Resp 22 B/P (MAP) 124/88 (100) Pulse Ox 100 90 100 O2 Delivery Tracheal Collar TRACH SHIELD Bi-pap Ventilator O2 Flow Rate 8.0 8.0 8.0 11/05/20 11/05/20 11/05/20 11/05/20 21:51 23:00 23:13 23:59 Temp 98.8 98.8 Pulse 78 71 Resp 22 B/P (MAP) 124/88 118/67 (84) Pulse Ox 100 100 O2 Delivery TRACH SHIELD W/BIPAP Ventilator O2 Flow Rate 8.0 11/06/20 11/06/20 11/06/20 11/06/20 02:30 03:00 04:00 05:20 Temp 99.0 99.0 Pulse 79 Resp 22 B/P (MAP) 140/79 (99) Pulse Ox 99 99 100 O2 Delivery Ventilator TRACH SHIELD W/BIPAP Ventilator O2 Flow Rate 8.0 11/06/20 11/06/20 11/06/20 11/06/20 07:00 08:00 08:35 08:37 Temp 98.4 98.4 Pulse 83 86 86 Resp 20 B/P (MAP) 140/75 (96) Pulse Ox 99 96 O2 Delivery Tracheal Collar O2 Flow Rate 35.0 8.0 Intake and Output 11/05/20 11/05/20 11/06/20 15:00 23:00 07:00 Intake Total 300 ml 500 ml 877 ml Output Total 425 ml 450 ml 400 ml Balance -125 ml 50 ml 477 ml Justicifation of Admission Dx: Justifications for Admission: Justification of Admission Dx: Yes CHF: Cardiac Arrhythmias RAFAEL REINOSO MD Nov 06, 2020 10:40
[2020-11-06 11:00] VITALS: BP 125/66
--- NOTE | 2020-11-06 11:32 | PDOC ---
[employer] PROGRESS NOTE Date of Service DOS: DATE: 11/06/20 TIME: Chief Complaint Chief Complaint Acute anemia Acute metabolic, infectious encephalopathy Acute respiratory failure Healthcare associated pneumonia Acute hypoglycemia Hypokalemia Elevated troponins Severe protein malnutrition Morbid obesity AAA, 4 cm, infrarenal History of diabetes mellitus type 2 History of dyslipidemia history of hypertension History of recent STEMI History of CAD History of peripheral artery disease History of JEANNE History of CVA History of paroxysmal atrial fibrillation Ischemic cardiomyopathy History of Present Illness History of Present Illness Patient meaningfully responding well. On trach shield millimeters BiPAP as needed on trach. PEG feeds with no significant residuals. 11/05: Patient is still unresponsive. Pupils reactive to light and accommodation. No meaningful movements. Actively posturing at bed side. Has peg feeding at 45cc/hr. Trach shield at 8L and BIPAP PRN at 35%. There is an open wound at the site of the peg insertion. Wound care, Dr. Cristobal is consulted. 11/04: Patient is still unresponsive. Pupils reactive to light and accommodation. Actively posturing at bedside. No meaningful movements. Has peg feeding at 45cc/hr. Trach shield at 8L and BIPAP PRN at 35%. 11/03/2020 Patient seen and examined. Discussed with RN and social services technician. Chart reviewed. Patient is still unresponsive. Actively decorticate posturing at bedside. Eyes rolled upward. No meaningful movements. Has peg feeding at 45cc/hr. The bleeding at the peg insertion site has stopped. 11/02/2020 Patient seen and examined. Chart reviewd. Discussed with RN and social services technician. Patient is still unresponsive. No meaningful movements. Actively decorticate posturing at bedside. Has peg feeding running at 45cc/hr. Some bleeding at the peg insertion site. 11/01/2020 Patient seen and examined. Discussed with social services technician and RN. Patient is still unresponsive. No meaningful movements. Peg feeding is running at 45cc/hr. Patient is actively posturing at bed side. Trach shield at 8L and BIPAP PRN at 35%. 10/31/2020 Patient seen and examined. Chart reviewed. Discussed with social services technician and RN. Patient still unresponsive. Patient actively posturing at bed side. Has peg running at 45cc/hr. Vestibulo-ocular reflex intact. 10/30/2020 Patient seen and examined. Discussed with social services technician and RN. Chart reviewed. Patient actively posturing at bed side. Has peg running at 45cc/hr. Mr Andrews is a 70-year-old male with a recent prolonged hospitalization for STEMI and respiratory failure for which she was treated with arterial thrombolysis for a right leg popliteal artery aneurysm and also had left heart cath with placement of a stent in the LAD and RCA comes in today after he was found obtunded at his long term facility. Apparently according to the nursing facility patient was in his usual state of health and he was conve rsational but then became altered. His blood glucose was found to be in the 30s. Glucose tabs and glucagon was given in route and his GCS reported at 6. Upon arrival patient's mental status did not improve and he was eventually intubated for airway protection. Of note EMS was bagging the patient through the nasal access. In the ED, patient was placed on a vent and pulmonology was consulted. Patient was also taken to the CT scanner for sanders scanning. Patient was started to wake up on the vent and sedation was ordered. 09/23: Patient examined at bedside. Intubated. Not on any sedation but unresponsive. Neurology consult in place. 09/24: Patient seen and examined at bedside. Remains intubated he is off sedation but still remains unresponsive. Planning for MRI brain in the morning. Further plan to be determined by MRI. 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 09/25: Afebrile, currently breathing on ventilator with FiO2 50%, PEEP 5. Had CODE BLUE in ICU this morning; received 2 rounds of CPR, epinephrine, and atropine with ROSC. MRI brain negative. Made DNR, and after discussion with Dr. Rubalcava he agrees. 09/26:: Afebrile. Still on vent, with FiO2 45%, PEEP 5. After discussion with Dr. Rubalcava yesterday, patient was made DNR. In the ED is likely a poor candidate for weaning trials may need trach in near future if no significant improvement. 09/27:: Afebrile. On vent with FiO2 40%, PEEP 5. Potassium 2.8 today, will replace. Warfarin has been resumed. Discussed with pharmacy, will resume aspirin and Plavix. May need tracheostomy by the end of the week if no improvement in mental status. 09/28:: Afebrile. On ventilator with FiO2 40%, PEEP 5. Warfarin has been resumed; INR 1.3 today. Some morning labs still pending; hemoglobin yesterday 7.3, will continue to monitor. Continue IV cefepime and supportive care. 09/29: Afebrile. Breathing on vent with FiO2 40%, PEEP 5. INR 1.2 today; pharmacy to help with warfarin dosing. White count within normal range, renal function stable. Spoke with pharmacy about cefepime 1 g every 8 hours dosing; this has been changed to cefepime 2 g every 8 hours. 09/30: Afebrile. Currently breathing on vent with FiO2 40%, PEEP 5. Continue antibiotics, cefepime 2 g every 8 hours. INR 1.4; continue warfarin dosing per pharmacy. Possible tracheostomy at some point. Critical care time 30 minutes reviewing charts, labs, examination, discussion with RN. 10/01: T-max 100.3 F. On ventilator with FiO2 40%, PEEP 5. Continue antibiotics, cefepime 2 g every 8 hours. INR 1.4, still subtherapeutic; continue warfarin dosing per pharmacy. Possible tracheostomy at some point. 10/02: No acute events overnight. Patient saturating 99% on vent settings of 10/450/40/5. Patient will likely need a trach and PEG at some point. We will hold warfarin and start 2 units PRBC transfusion. Patient's chart, labs, images were reviewed and discussed with RN 10/03: No acute events overnight. Patient sat 100% on minimal vent settings. No sedation at this point and patient is opening his eyes spontaneously. Not much response or spontaneous movements. Surgery has been consulted for tracheostomy. Patient will also likely need a PEG tube. 10/04: No acute events overnight. Patient saturating 90% on minimal vent settings. T-max 100.4 overnight. Plan for trach tomorrow with surgery. Patient's chart, labs, images were reviewed and discussed with RN 10/05: No acute events overnight. Patient saturating 99% on minimal vent settings. Plan for tracheostomy today. Consent is provided by authorization by 2 physicians due to patient having no close relatives or DPOA. Will resume heparin and warfarin bridging tomorrow after tracheostomy 10/07: No acute events overnight. Patient seen and examined bedside. On trach vent. Saturating 99%. Pending GI evaluation for possible PEG placement after discussing with cardiology whether to continue with Plavix. Possibly place PEG if patient is only on aspirin and stopping argatroban. 10/08: No acute events overnight. Patient continues to be on trach mechanical vent. Saturating 100%. Pending decision from GI whether to proceed with PEG placement depending on the type of anticoagulation patient will be on. 10/09: No overnight events. On trach with vent support 40% FiO2 PEEP of 5. Currently argatroban and propofol for minimal sedation. When sedation is weaned he has no meaningful movements but has pulled at his tracheostomy site. Unable to hold plavix due to recently placed stents. 10/10: Afebrile today. On trach with vent support 40% FiO2 PEEP of 5. Continue argatroban and changed to Aggrastat in anticipation of surgical consultation for potential laparoscopic PEG placement. INR 1.6. Hb greater than 9 no significant neurologic recovery today. 10/11: Afebrile. On trach with vent support 40% FiO2 PEEP of 5. INR 1.8. Not making meaningful eye contact. Labs otherwise stable. 10/12: Afebrile. Trach with vent support 40% FiO2 PEEP five O2 saturations 92%. INR 1.8, mag 1.8, Hb 8.4. Not following commands. Tentative plans for surgical PEG next week. 10/13: Afebrile. Trach with vent support 40% FiO2 PEEP 5. Eyes open, not tracking or following commands. Holding Plavix. On argatroban. 10/14: Afebrile. Trach with vent support 40% FiO2 PEEP of 5. Will open eyes intermittently not necessarily to voice. Good urine output. Labs stable. 10/15: Afebrile overnight. Trach with vent AC 40% fio2 PEEP 5. Had a very large bowel movement. Still not tracking. Hb 9, INR 1.7, glucose 144. Tentative plan for PEG 10/18/2020 CC time 30 minutes 10/16/20: Patient seen and examined in the ICU. He was resting and still on vent via trach. Has NG running via Dobhoff, feeding at 40cc/hr. AC/10/450/40% plus 5 PEEP. Discussed with RN. Chart reviewed. 10/17/20: Patient was seen and examined in the ICU today. Still on vent via trach at AC/10/450/40 plus 5 PEEP. While examined, patient was at 100% O2 saturation. Has SCDs on for DVT prophylaxis. Stauffer catheter in place. On IV argatroban. R subclavian triple lumen in place. Dobhoff running at 40cc/hr. Discussed with RN. Chart reviewed. 10/18/20: Patient seen and examined in ICU. His eyes are open. On vent via trach with settings that were recently changed to spontaneous respirations with FiO2 of 40 and 5 PEEP. Trach is clean and dry. Currently, oxygen saturation is at 100%. Stauffer to bedside and rectal bag in place. Discussed with RN. Chart reviewed. 10/19/20: Patient was seen and examined in the ICU today. His eyes were open and he was resting. On BiPAP via trach AVAPS/10/450/40 plus 5 PEEP. Trach is clean and dry. Has SCDs for DVT prophylaxis. Patient has rectal bag, Stauffer to bedside, and NG tube in place. Discussed with RN. Chart reviewed. 10/20/20 No acute events overnight. Patient seen and examined bedside. Transferred from the ICU. Continues to be nonverbal and not following much commands. Opens eyes to voice. Currently on BiPAP via trach on AVAPS setting 10/450/40 PEEP of 5. Trach site is clear. No signs of infections. Patient's chart, labs, images were reviewed and discussed with RN 10/21/2020 No acute events overnight. Patient seen and examined bedside. Afebrile. Continues to be nonverbal but opens eyes to voice. Currently on BiPAP. Patient's chart, labs, images were reviewed and discussed with RN. 10/22/2020 No acute events overnight. Patient seen examined bedside. Continue with argatroban until warfarin goal INR of 4 and maintenance goal of 2-3. Please see e learning manager note. Pending appointing a legal guardian. Patient's chart, labs, images were reviewed and discussed with RN 10/23/2020 laparoscopic gastrostomy tube placement (specifically 24 F) Oct discharge planning in place once court appointed DPOA available Acute anemia Acute metabolic, infectious encephalopathy Acute respiratory failure Healthcare associated pneumonia Acute hypoglycemia Hypokalemia Elevated troponins Severe protein malnutrition Morbid obesity AAA, 4 cm, infrarenal History of diabetes mellitus type 2 History of dyslipidemia history of hypertension Patient seen examined bedside. argatroban until warfarin goal INR of 4 and maintenance goal of 2-3. Pending appointing a legal guardian. Patient's chart, labs, images were reviewed and discussed with KARY Cardenas Enteric tube with metallic tip in the left upper quadrant likely in the stomach. 10/24/2020 doing well on trach shield on a 24-hour basis./ blood gases shows no worsening hypercapnia while on trach shield. No apneic breathing reported. laparoscopic gastrostomy tube placement (specifically 24 F) Oct discharge planning in place once court appointed DPOA available Acute anemia Acute metabolic, infectious encephalopathy Acute respiratory failure Healthcare associated pneumonia Acute hypoglycemia Hypokalemia Elevated troponins Severe protein malnutrition Morbid obesity AAA, 4 cm, infrarenal History of diabetes mellitus type 2 History of dyslipidemia history of hypertension Patient seen examined bedside. argatroban until warfarin goal INR of 4 and maintenance goal of 2-3. Pending appointing a legal guardian. Patient's chart, labs, images were reviewed and discussed with KARY Cardenas Enteric tube with metallic tip in the left upper quadrant likely in the stomach. Home on plavix and warfarin D/C INITIAL PLAN TO [facility]/ discharge planning in place once court appointed DPOA available D/W RN 10/25/2020 doing well on trach shield on a 24-hour basis./ blood gases shows no worsening hypercapnia while on trach shield. No apneic breathing reported. laparoscopic gastrostomy tube placement (specifically 24 F) Oct discharge planning in place once court appointed DPOA available Acute anemia Acute metabolic, infectious encephalopathy Acute respiratory failure Healthcare associated pneumonia Acute hypoglycemia Hypokalemia Elevated troponins Severe protein malnutrition Morbid obesity AAA, 4 cm, infrarenal History of diabetes mellitus type 2 History of dyslipidemia history of hypertension Patient seen examined bedside. argatroban until warfarin goal INR of 4 and maintenance goal of 2-3. Pending appointing a legal guardian. Patient's chart, labs, images were reviewed and discussed with KARY Cardenas Enteric tube with metallic tip in the left upper quadrant likely in the stomach. Home on plavix and warfarin D/C INITIAL PLAN TO [facility]/ discharge planning in place once court appointed DPOA available D/W RN 10/26/2020 HGB 9.4 doing well on trach shield on a 24-hour basis./ blood gases shows no worsening hypercapnia while on trach shield. No apneic breathing reported. laparoscopic gastrostomy tube placement (specifically 24 F) Oct discharge planning in place once court appointed DPOA available Acute anemia Acute metabolic, infectious encephalopathy Acute respiratory failure Healthcare associated pneumonia Acute hypoglycemia Hypokalemia Elevated troponins Severe protein malnutrition Morbid obesity AAA, 4 cm, infrarenal History of diabetes mellitus type 2 History of dyslipidemia history of hypertension Patient seen examined bedside. argatroban until warfarin goal INR of 4 and maintenance goal of 2-3. Pending appointing a legal guardian. Patient's chart, labs, images were reviewed and discussed with KARY Cardenas Enteric tube with metallic tip in the left upper quadrant likely in the stomach. Home on plavix and warfarin D/C INITIAL PLAN TO [facility]/ discharge planning in place once court appointed DPOA available D/W RN 10/27/2020 HGB 9.4 doing well on trach shield on a 24-hour basis./ blood gases shows no worsening hypercapnia while on trach shield. No apneic breathing reported. laparoscopic gastrostomy tube placement (specifically 24 F) Oct discharge planning in place once court appointed DPOA available Acute anemia Acute metabolic, infectious encephalopathy Acute respiratory failure Healthcare associated pneumonia Acute hypoglycemia Hypokalemia Elevated troponins Severe protein malnutrition Morbid obesity AAA, 4 cm, infrarenal History of diabetes mellitus type 2 History of dyslipidemia history of hypertension Patient seen examined bedside. argatroban until warfarin goal INR of 4 and maintenance goal of 2-3. Pending appointing a legal guardian. Patient's chart, labs, images were reviewed and discussed with KARY Cardenas Enteric tube with metallic tip in the left upper quadrant likely in the stomach. Home on plavix and warfarin D/C INITIAL PLAN TO [facility]/ discharge planning in place once court appointed DPOA available D/W RN 10/28/2020 HGB 9.4 doing well on trach shield on a 24-hour basis./ blood gases shows no worsening hypercapnia while on trach shield. No apneic breathing reported. laparoscopic gastrostomy tube placement (specifically 24 F) Oct discharge planning in place once court appointed DPOA available Acute anemia Acute metabolic, infectious encephalopathy Acute respiratory failure Healthcare associated pneumonia Acute hypoglycemia Hypokalemia Elevated troponins Severe protein malnutrition Morbid obesity AAA, 4 cm, infrarenal History of diabetes mellitus type 2 History of dyslipidemia history of hypertension Patient seen examined bedside. argatroban until warfarin goal INR of 4 and maintenance goal of 2-3. Pending appointing a legal guardian. Patient's chart, labs, images were reviewed and discussed with KARY Cardenas Enteric tube with metallic tip in the left upper quadrant likely in the stomach. Home on plavix and warfarin D/C INITIAL PLAN TO [facility]END[facility]/ discharge planning in place once court appointed DPOA available D/W RN Vitals/I&O Vitals/I&O: Vital Signs Date Time Temp Pulse Resp B/P (MAP) Pulse Ox O2 Delivery O2 Flow Rate FiO2 11/06/20 08:37 86 11/06/20 08:05 Bi-pap 8.0 11/06/20 08:00 96 11/06/20 07:00 98.4 20 140/75 (96) 98.4 I & O 11/05/20 11/05/20 11/06/20 15:00 23:00 07:00 Intake Total 300 ml 500 ml 877 ml Output Total 425 ml 450 ml 400 ml Balance -125 ml 50 ml 477 ml Physical Exam Physical Exam: Neuro: actively posturing. Pulpils dialated but reactive to light and accomendation. Flaccidity in the lower extremity bilaterally. Equivocal Babinski. General: Other (actively posturing. No meaningful movements. ) Heart: Regular rate (SR), Other (distant heart sounds) Lungs: Other (Tracheostomy with trach shield. Deminished breath sounds.) Abdomen: Soft, Other (g tube in place) Extremities: No cyanosis, Other (2-3+ bilateral LE pitting edema) Skin: No rashes, No significant lesion Labs Labs: Laboratory Tests Test 11/05/20 17:08 11/05/20 17:14 11/06/20 00:14 11/06/20 06:00 Glucose (Fingerstick) 159 mg/dL (70-99) 167 mg/dL (70-99) 145 mg/dL (70-99) 153 mg/dL (70-99) Assessment and Plan Assessmemt and Plan Problems Medical Problems: (1) NSTEMI (non-ST elevated myocardial infarction) Status: Acute (2) Obtundation Status: Acute (3) Respiratory arrest Status: Acute Comment Review of Relevant I have reviewed the following items denise (where applicable) has been applied. Medications: Current Medications Medications (Trade) Dose Ordered Sig/Dru Route PRN Reason Start Time Stop Time Status Last Admin Dose Admin Docusate Sodium (Colace Solution) 100 mg DAILY PO 11/05/20 12:00 11/06/20 08:34 Justifications for Admission Other Justification Hypoglycemia and altered mental status. JARRED SINGH MD Nov 06, 2020 11:32
[2020-11-06 15:00] VITALS: BP 135/69
[2020-11-06] MEDS: WARFARIN 4 MG TABLET. PO SCH (15:23)
--- NOTE | 2020-11-06 16:23 | NUR ---
SS following up with discharge planning. SS reviewed pt chart and discussed with pt RN. Pt is currently on trach shield at eight liters. G-Tube in place. Pt on IV Lasix. COVID19 negative. Pt in need of DPOA or Guardianship for placement at LTACH or LTC facility. Embedded Software Programmer, Amarilis Matthews, assigned to case and is in need of proposed guardian prior to proceeding. [facility] hotline report made for assistance. SS currently awaiting for response from [facility]. SS will continue to follow for discharge planning.
[2020-11-06 19:00] VITALS: BP 136/73
[2020-11-06 23:00] VITALS: BP 111/71
[2020-11-06] MEDS: ATORVASTATIN CALCIUM 40 MG TABLET. PO SCH (23:05)
[2020-11-07 03:00] VITALS: BP 90/47
[2020-11-07] MEDS: INSULIN LISPRO 300 UNITS/3 ML VIAL. SQ SCH ×4 (06:00→18:00)
[2020-11-07 07:00] VITALS: BP 140/77
--- NOTE | 2020-11-07 07:05 | PDOC ---
[facility] [facility] PROGRESS NOTE Date of Service DOS: DATE: 11/07/20 TIME: 07:05 Chief Complaint Chief Complaint Acute anemia Acute metabolic, infectious encephalopathy Acute respiratory failure Healthcare associated pneumonia Acute hypoglycemia Hypokalemia Elevated troponins Severe protein malnutrition Morbid obesity AAA, 4 cm, infrarenal History of diabetes mellitus type 2 History of dyslipidemia history of hypertension History of recent STEMI History of CAD History of peripheral artery disease History of JEANNE History of CVA History of paroxysmal atrial fibrillation Ischemic cardiomyopathy History of Present Illness History of Present Illness Not responsive to stimuli, not making eye contact. Afebrile. Seen on 8 L trach collar canula. Hb 9.1 Renal labs stable INR 3.1. 11/06: Patient not meaningfully responding well. On trach shield and BiPAP as needed on trach. PEG feeds with no significant residuals. 11/05: Patient is still unresponsive. Pupils reactive to light and accommodation. No meaningful movements. Actively posturing at bed side. Has peg feeding at 45cc/hr. Trach shield at 8L and BIPAP PRN at 35%. There is an open wound at the site of the peg insertion. Wound care, Dr. Cristobal is consulted. 11/04: Patient is still unresponsive. Pupils reactive to light and accommodation. Actively posturing at bedside. No meaningful movements. Has peg feeding at 45cc/hr. Trach shield at 8L and BIPAP PRN at 35%. 11/03/2020 Patient seen and examined. Discussed with RN and nursing home social worker. Chart reviewed. Patient is still unresponsive. Actively decorticate posturing at bedside. Eyes rolled upward. No meaningful movements. Has peg feeding at 45cc/hr. The bleeding at the peg insertion site has stopped. 11/02/2020 Patient seen and examined. Chart reviewd. Discussed with RN and nursing home social worker. Patient is still unresponsive. No meaningful movements. Actively decorticate posturing at bedside. Has peg feeding running at 45cc/hr. Some bleeding at the peg insertion site. 11/01/2020 Patient seen and examined. Discussed with nursing home social worker and RN. Patient is still unresponsive. No meaningful movements. Peg feeding is running at 45cc/hr. Patient is actively posturing at bed side. Trach shield at 8L and BIPAP PRN at 35%. 10/31/2020 Patient seen and examined. Chart reviewed. Discussed with nursing home social worker and RN. Patient still unresponsive. Patient actively posturing at bed side. Has peg running at 45cc/hr. Vestibulo-ocular reflex intact. 10/30/2020 Patient seen and examined. Discussed with nursing home social worker and RN. Chart reviewed. Patient actively posturing at bed side. Has peg running at 45cc/hr. Mr Andrews is a 70-year-old male with a recent prolonged hospitalization for STEMI and respiratory failure for which she was treated with arterial thrombolysis for a right leg popliteal artery aneurysm and also had left heart cath with placement of a stent in the LAD and RCA comes in today after he was found obtunded at his intermediate facility. Apparently according to the nursing facility patient was in his usual state of health and he was co nversational but then became altered. His blood glucose was found to be in the 30s. Glucose tabs and glucagon was given in route and his GCS reported at 6. Upon arrival patient's mental status did not improve and he was eventually intubated for airway protection. Of note EMS was bagging the patient through the nasal access. In the ED, patient was placed on a vent and pulmonology was consulted. Patient was also taken to the CT scanner for sanders scanning. Patient was started to wake up on the vent and sedation was ordered. 09/23: Patient examined at bedside. Intubated. Not on any sedation but unresponsive. Neurology consult in place. 09/24: Patient seen and examined at bedside. Remains intubated he is off sedation but still remains unresponsive. Planning for MRI brain in the morning. Further plan to be determined by MRI. 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 09/25: Afebrile, currently breathing on ventilator with FiO2 50%, PEEP 5. Had CODE BLUE in ICU this morning; received 2 rounds of CPR, epinephrine, and atropine with ROSC. MRI brain negative. Made DNR, and after discussion with Dr. Rubalcava he agrees. 09/26:: Afebrile. Still on vent, with FiO2 45%, PEEP 5. After discussion with Dr. Rubalcava yesterday, patient was made DNR. In the ED is likely a poor candidate for weaning trials may need trach in near future if no significant improvement. 09/27:: Afebrile. On vent with FiO2 40%, PEEP 5. Potassium 2.8 today, will replace. Warfarin has been resumed. Discussed with pharmacy, will resume aspirin and Plavix. May need tracheostomy by the end of the week if no improvement in mental status. 09/28:: Afebrile. On ventilator with FiO2 40%, PEEP 5. Warfarin has been resumed; INR 1.3 today. Some morning labs still pending; hemoglobin yesterday 7.3, will continue to monitor. Continue IV cefepime and supportive care. 09/29: Afebrile. Breathing on vent with FiO2 40%, PEEP 5. INR 1.2 today; pharmacy to help with warfarin dosing. White count within normal range, renal function stable. Spoke with pharmacy about cefepime 1 g every 8 hours dosing; this has been changed to cefepime 2 g every 8 hours. 09/30: Afebrile. Currently breathing on vent with FiO2 40%, PEEP 5. Continue antibiotics, cefepime 2 g every 8 hours. INR 1.4; continue warfarin dosing per pharmacy. Possible tracheostomy at some point. Critical care time 30 minutes reviewing charts, labs, examination, discussion with RN. 10/01: T-max 100.3 F. On ventilator with FiO2 40%, PEEP 5. Continue antibiotics, cefepime 2 g every 8 hours. INR 1.4, still subtherapeutic; continue warfarin dosing per pharmacy. Possible tracheostomy at some point. 10/02: No acute events overnight. Patient saturating 99% on vent settings of 10/450/40/5. Patient will likely need a trach and PEG at some point. We will hold warfarin and start 2 units PRBC transfusion. Patient's chart, labs, images were reviewed and discussed with RN 10/03: No acute events overnight. Patient sat 100% on minimal vent settings. No sedation at this point and patient is opening his eyes spontaneously. Not much response or spontaneous movements. Surgery has been consulted for tracheostomy. Patient will also likely need a PEG tube. 10/04: No acute events overnight. Patient saturating 90% on minimal vent settings. T-max 100.4 overnight. Plan for trach tomorrow with surgery. Patient's chart, labs, images were reviewed and discussed with RN 10/05: No acute events overnight. Patient saturating 99% on minimal vent settings. Plan for tracheostomy today. Consent is provided by authorization by 2 physicians due to patient having no close relatives or DPOA. Will resume heparin and warfarin bridging tomorrow after tracheostomy 10/07: No acute events overnight. Patient seen and examined bedside. On trach vent. Saturating 99%. Pending GI evaluation for possible PEG placement after discussing with cardiology whether to continue with Plavix. Possibly place PEG if patient is only on aspirin and stopping argatroban. 10/08: No acute events overnight. Patient continues to be on trach mechanical vent. Saturating 100%. Pending decision from GI whether to proceed with PEG placement depending on the type of anticoagulation patient will be on. 10/09: No overnight events. On trach with vent support 40% FiO2 PEEP of 5. Currently argatroban and propofol for minimal sedation. When sedation is weaned he has no meaningful movements but has pulled at his tracheostomy site. Unable to hold plavix due to recently placed stents. 10/10: Afebrile today. On trach with vent support 40% FiO2 PEEP of 5. Continue argatroban and changed to Aggrastat in anticipation of surgical consultation for potential laparoscopic PEG placement. INR 1.6. Hb greater than 9 no significant neurologic recovery today. 10/11: Afebrile. On trach with vent support 40% FiO2 PEEP of 5. INR 1.8. Not making meaningful eye contact. Labs otherwise stable. 10/12: Afebrile. Trach with vent support 40% FiO2 PEEP five O2 saturations 92%. INR 1.8, mag 1.8, Hb 8.4. Not following commands. Tentative plans for surgical PEG next week. 10/13: Afebrile. Trach with vent support 40% FiO2 PEEP 5. Eyes open, not tracking or following commands. Holding Plavix. On argatroban. 10/14: Afebrile. Trach with vent support 40% FiO2 PEEP of 5. Will open eyes intermittently not necessarily to voice. Good urine output. Labs stable. 10/15: Afebrile overnight. Trach with vent AC 40% fio2 PEEP 5. Had a very large bowel movement. Still not tracking. Hb 9, INR 1.7, glucose 144. Tentative plan for PEG 10/18/2020 CC time 30 minutes 10/16/20: Patient seen and examined in the ICU. He was resting and still on vent via trach. Has NG running via Dobhoff, feeding at 40cc/hr. AC/10/450/40% plus 5 PEEP. Discussed with RN. Chart reviewed. 10/17/20: Patient was seen and examined in the ICU today. Still on vent via trach at AC/10/450/40 plus 5 PEEP. While examined, patient was at 100% O2 saturation. Has SCDs on for DVT prophylaxis. Stauffer catheter in place. On IV argatroban. R subclavian triple lumen in place. Dobhoff running at 40cc/hr. Discussed with RN. Chart reviewed. 10/18/20: Patient seen and examined in ICU. His eyes are open. On vent via trach with settings that were recently changed to spontaneous respirations with FiO2 of 40 and 5 PEEP. Trach is clean and dry. Currently, oxygen saturation is at 100%. Stauffer to bedside and rectal bag in place. Discussed with RN. Chart reviewed. 10/19/20: Patient was seen and examined in the ICU today. His eyes were open and he was resting. On BiPAP via trach AVAPS/10/450/40 plus 5 PEEP. Trach is clean and dry. Has SCDs for DVT prophylaxis. Patient has rectal bag, Stauffer to bedside, and NG tube in place. Discussed with RN. Chart reviewed. 10/20/20 No acute events overnight. Patient seen and examined bedside. Transferred from the ICU. Continues to be nonverbal and not following much commands. Opens eyes to voice. Currently on BiPAP via trach on AVAPS setting 10/450/40 PEEP of 5. Trach site is clear. No signs of infections. Patient's chart, labs, images were reviewed and discussed with RN 10/21/2020 No acute events overnight. Patient seen and examined bedside. Afebrile. Continues to be nonverbal but opens eyes to voice. Currently on BiPAP. Patient's chart, labs, images were reviewed and discussed with RN. 10/22/2020 No acute events overnight. Patient seen examined bedside. Continue with argatroban until warfarin goal INR of 4 and maintenance goal of 2-3. Please see tape editor note. Pending appointing a legal guardian. Patient's chart, labs, images were reviewed and discussed with RN 10/23/2020 laparoscopic gastrostomy tube placement (specifically 24 F) Oct discharge planning in place once court appointed DPOA available Acute anemia Acute metabolic, infectious encephalopathy Acute respiratory failure Healthcare associated pneumonia Acute hypoglycemia Hypokalemia Elevated troponins Severe protein malnutrition Morbid obesity AAA, 4 cm, infrarenal History of diabetes mellitus type 2 History of dyslipidemia history of hypertension Patient seen examined bedside. argatroban until warfarin goal INR of 4 and maintenance goal of 2-3. Pending appointing a legal guardian. Patient's chart, labs, images were reviewed and discussed with KARY Cardenas Enteric tube with metallic tip in the left upper quadrant likely in the stomach. 10/24/2020 doing well on trach shield on a 24-hour basis./ blood gases shows no worsening hypercapnia while on trach shield. No apneic breathing reported. laparoscopic gastrostomy tube placement (specifically 24 F) Oct discharge planning in place once court appointed DPOA available Acute anemia Acute metabolic, infectious encephalopathy Acute respiratory failure Healthcare associated pneumonia Acute hypoglycemia Hypokalemia Elevated troponins Severe protein malnutrition Morbid obesity AAA, 4 cm, infrarenal History of diabetes mellitus type 2 History of dyslipidemia history of hypertension Patient seen examined bedside. argatroban until warfarin goal INR of 4 and maintenance goal of 2-3. Pending appointing a legal guardian. Patient's chart, labs, images were reviewed and discussed with KARY Cardenas Enteric tube with metallic tip in the left upper quadrant likely in the stomach. Home on plavix and warfarin D/C INITIAL PLAN TO [facility]END[facility]/ discharge planning in place once court appointed DPOA available D/W RN 10/25/2020 doing well on trach shield on a 24-hour basis./ blood gases shows no worsening hypercapnia while on trach shield. No apneic breathing reported. laparoscopic gastrostomy tube placement (specifically 24 F) Oct discharge planning in place once court appointed DPOA available Acute anemia Acute metabolic, infectious encephalopathy Acute respiratory failure Healthcare associated pneumonia Acute hypoglycemia Hypokalemia Elevated troponins Severe protein malnutrition Morbid obesity AAA, 4 cm, infrarenal History of diabetes mellitus type 2 History of dyslipidemia history of hypertension Patient seen examined bedside. argatroban until warfarin goal INR of 4 and maintenance goal of 2-3. Pending appointing a legal guardian. Patient's chart, labs, images were reviewed and discussed with KARY Cardenas Enteric tube with metallic tip in the left upper quadrant likely in the stomach. Home on plavix and warfarin D/C INITIAL PLAN TO [facility]/ discharge planning in place once court appointed DPOA available D/W RN 10/26/2020 HGB 9.4 doing well on trach shield on a 24-hour basis./ blood gases shows no worsening hypercapnia while on trach shield. No apneic breathing reported. laparoscopic gastrostomy tube placement (specifically 24 F) Oct discharge planning in place once court appointed DPOA available Acute anemia Acute metabolic, infectious encephalopathy Acute respiratory failure Healthcare associated pneumonia Acute hypoglycemia Hypokalemia Elevated troponins Severe protein malnutrition Morbid obesity AAA, 4 cm, infrarenal History of diabetes mellitus type 2 History of dyslipidemia history of hypertension Patient seen examined bedside. argatroban until warfarin goal INR of 4 and maintenance goal of 2-3. Pending appointing a legal guardian. Patient's chart, labs, images were reviewed and discussed with KARY Cardenas Enteric tube with metallic tip in the left upper quadrant likely in the stomach. Home on plavix and warfarin D/C INITIAL PLAN TO [facility]/ discharge planning in place once court appointed DPOA available D/W RN 10/27/2020 HGB 9.4 doing well on trach shield on a 24-hour basis./ blood gases shows no worsening hypercapnia while on trach shield. No apneic breathing reported. laparoscopic gastrostomy tube placement (specifically 24 F) Oct discharge planning in place once court appointed DPOA available Acute anemia Acute metabolic, infectious encephalopathy Acute respiratory failure Healthcare associated pneumonia Acute hypoglycemia Hypokalemia Elevated troponins Severe protein malnutrition Morbid obesity AAA, 4 cm, infrarenal History of diabetes mellitus type 2 History of dyslipidemia history of hypertension Patient seen examined bedside. argatroban until warfarin goal INR of 4 and maintenance goal of 2-3. Pending appointing a legal guardian. Patient's chart, labs, images were reviewed and discussed with KARY Cardenas Enteric tube with metallic tip in the left upper quadrant likely in the stomach. Home on plavix and warfarin D/C INITIAL PLAN TO [facility]/ discharge planning in place once court appointed DPOA available D/W RN 10/28/2020 HGB 9.4 doing well on trach shield on a 24-hour basis./ blood gases shows no worsening hypercapnia while on trach shield. No apneic breathing reported. laparoscopic gastrostomy tube placement (specifically 24 F) Oct discharge planning in place once court appointed DPOA available Acute anemia Acute metabolic, infectious encephalopathy Acute respiratory failure Healthcare associated pneumonia Acute hypoglycemia Hypokalemia Elevated troponins Severe protein malnutrition Morbid obesity AAA, 4 cm, infrarenal History of diabetes mellitus type 2 History of dyslipidemia history of hypertension Patient seen examined bedside. argatroban until warfarin goal INR of 4 and maintenance goal of 2-3. Pending appointing a legal guardian. Patient's chart, labs, images were reviewed and discussed with KARY Cardenas Enteric tube with metallic tip in the left upper quadrant likely in the stomach. Home on plavix and warfarin D/C INITIAL PLAN TO [facility] PENDING/ discharge planning in place once court appointed DPOA available D/W RN Vitals/I&O Vitals/I&O: Vital Signs Date Time Temp Pulse Resp B/P (MAP) Pulse Ox O2 Delivery O2 Flow Rate FiO2 11/07/20 04:40 100 Ventilator 11/07/20 04:00 8.0 11/07/20 03:00 99.2 76 14 90/47 (61) 99.2 I & O 11/06/20 11/06/20 11/07/20 15:00 23:00 07:00 Intake Total 655 ml 720 ml 200 ml Output Total 850 ml 350 ml Balance 655 ml -130 ml -150 ml Physical Exam Physical Exam: Neuro: actively posturing. Pulpils dialated but reactive to light and accomendation. Flaccidity in the lower extremity bilaterally. Equivocal Babinski. General: Other (actively posturing. No meaningful movements. ) Heart: Regular rate (SR), Other (distant heart sounds) Lungs: Other (Tracheostomy with trach shield. Deminished breath sounds.) Abdomen: Soft, Other (g tube in place) Extremities: No cyanosis, Other (2-3+ bilateral LE pitting edema) Skin: No rashes, No significant lesion Labs Labs: Laboratory Tests Test 11/06/20 11:59 11/06/20 17:23 11/06/20 23:36 Glucose (Fingerstick) 160 mg/dL (70-99) 150 mg/dL (70-99) 145 mg/dL (70-99) Assessment and Plan Assessmemt and Plan Problems Medical Problems: (1) NSTEMI (non-ST elevated myocardial infarction) Status: Acute (2) Obtundation Status: Acute (3) Respiratory arrest Status: Acute Comment Review of Relevant I have reviewed the following items denise (where applicable) has been applied. Justifications for Admission Other Justification Hypoglycemia and altered mental status. JARRED SINGH MD Nov 07, 2020 07:05
[2020-11-07 07:31] LABS: BASO % 1 % (0-3); EOS # 0.5 x10^3/uL (0.0-0.7); EOS % 6 % (0-3); HEMOGLOBIN 9.1 g/dL (13.0-17.5); LYMPH # 2.4 x10^3/uL (1.0-4.8); LYMPH % 33 % (24-48); MEAN CORPUSCULAR HEMOGLOBIN 32 pg (25-35); MEAN CORPUSCULAR HGB CONC 34 g/dL (31-37); MEAN CORPUSCULAR VOLUME 93 fL (79-100); MONO # 0.6 x10^3/uL (0.0-1.1); MONO % 8 % (0-9); NEUT % 53 % (31-73); PLATELET COUNT 352 x10^3/uL (140-400); RED BLOOD COUNT 2.89 x10^6/uL (4.30-5.70); RED CELL DISTRIBUTION WIDTH 15.9 % (11.5-14.5); WHITE BLOOD COUNT 7.5 x10^3/uL (4.0-11.0)
[2020-11-07 07:37] LABS: ALBUMIN 2.7 g/dL (3.4-5.0); ALBUMIN/GLOBULIN RATIO 0.6 (1.0-1.7); CALCIUM 9.2 mg/dL (8.5-10.1); GFR 73.5; POTASSIUM 3.7 mmol/L (3.5-5.1); TOTAL BILIRUBIN 0.9 mg/dL (0.2-1.0); TOTAL PROTEIN 7.3 g/dL (6.4-8.2)
--- NOTE | 2020-11-07 09:07 | NUR ---
Pharmacy Warfarin Dosing Note S:Pharmacy consulted to assist with anticoagulation therapy started with target INR: 2 -3 O:DEMETRICE HOWE is a 70 year old M with Atrial Fibrillation, DVT/PE, and history of HIT LABS: Last INR: 2.1 Last HGB: 9.1 Last HCT: 27.0 Last PLT: 352 Last dose of 4 mg given on 11/06/20 at 1523 Vitamin K given: N Drug Interaction Changes: Same Interacting Drug Ongoing Drug Interactions: amiodarone, aspirin, plavix A:INR of 2.1 is within desired range. Target range for this patient is: 2 -3 P: Warfarin dose: 4 mg Today at 1600 Bridge Therapy: None Therapeutic Next INR due 11/09/20 Pharmacy anticoagulation service will continue to follow. MURTAZA RICHTER [facility], 11/07/20 [id number]
[2020-11-07] MEDS: DOCUSATE 100 MG/10 ML SOLUTION. PO SCH (09:25)
[2020-11-07] MEDS: PANTOPRAZOLE IV PUSH 40 MG VIAL. IVP SCH (09:25)
[2020-11-07] MEDS: METOPROLOL TART IMMED RELEASE 25 MG TABLET. PO SCH ×2 (09:25→21:55)
[2020-11-07] MEDS: AMIODARONE HCL 200 MG TABLET. PO SCH (09:26)
[2020-11-07] MEDS: ASPIRIN CHEWABLE 81 MG TABLET. PO SCH (09:26)
[2020-11-07] MEDS: CLOPIDOGREL BISULFATE 75 MG TABLET PO SCH (09:26)
[2020-11-07] MEDS: POTASSIUM BICARB 20 MEQ EFFERVESCENT TABLET. PEG SCH (09:26)
[2020-11-07] MEDS: FUROSEMIDE 40 MG/4 ML VIAL. IVP SCH (09:27)
--- NOTE | 2020-11-07 10:03 | NUR ---
SS following up with discharge planning. SS reviewed pt chart and discussed with pt RN. Pt is currently on trach shield at eight liters. G-Tube in place. Pt on IV Lasix. COVID19 negative. Pt in need of DPOA or Guardianship for placement at LTACH or LTC facility. Garbage Person, Amarilis Matthews, assigned to case and is in need of proposed guardian prior to proceeding. New DCF referral made requesting assistance. Intake#[id number]. SS currently awaiting for response from DCF. SS will continue to follow for discharge planning.
[2020-11-07 11:00] VITALS: BP 112/69
[2020-11-07 15:00] VITALS: BP 148/81
--- NOTE | 2020-11-07 15:41 | NUR ---
Wound/Ostomy Care Wound Type/Assessment: Wound care consult for PEG tube wound. Pt has a slit on medila side of pg tube nsertion site that has a suture in it as well as slough and moderate drainage. Pt also has a blood filled blister to left dorsal great toe that was pictured on admission and left GENNARO. Cleansed, pictured and measured and redressed wounds. Treatment Recommendations/Plan: Cleanse wounds. Clear [place] great toe with skin prep daily. Cleanse around Peg tube, cover open wound and maceration with aquacel ag and cover with foam sliced to fit around peg tube. Change every 2-3 days and PRN for drainage. Education provided: Pt unable to retain teaching due to mental status. Offloading surface/device: Pt turned to left side with wedge, heels floated on pillows Recommended Referrals/Tests: na Discharge Recommendations for dressings: see above
[2020-11-07] MEDS: WARFARIN 4 MG TABLET. PO SCH (16:07)
[2020-11-07 19:35] VITALS: BP 145/86
[2020-11-07] MEDS: ATORVASTATIN CALCIUM 40 MG TABLET. PO SCH (21:55)
[2020-11-07 23:15] VITALS: BP 125/70
[2020-11-08 02:45] VITALS: BP 141/76
[2020-11-08] MEDS: INSULIN LISPRO 300 UNITS/3 ML VIAL. SQ SCH ×4 (06:00→17:30)
[2020-11-08 07:00] VITALS: BP 141/75
[2020-11-08] MEDS: ASPIRIN CHEWABLE 81 MG TABLET. PO SCH (09:48)
[2020-11-08] MEDS: METOPROLOL TART IMMED RELEASE 25 MG TABLET. PO SCH ×2 (09:49→21:15)
[2020-11-08] MEDS: AMIODARONE HCL 200 MG TABLET. PO SCH (09:49)
[2020-11-08] MEDS: POTASSIUM BICARB 20 MEQ EFFERVESCENT TABLET. PEG SCH (09:49)
[2020-11-08] MEDS: CLOPIDOGREL BISULFATE 75 MG TABLET PO SCH (09:50)
[2020-11-08] MEDS: FUROSEMIDE 40 MG/4 ML VIAL. IVP SCH (09:50)
[2020-11-08] MEDS: DOCUSATE 100 MG/10 ML SOLUTION. PO SCH (09:50)
[2020-11-08] MEDS: PANTOPRAZOLE IV PUSH 40 MG VIAL. IVP SCH (09:50)
[2020-11-08 10:29] VITALS: BP 120/78
--- NOTE | 2020-11-08 11:29 | PDOC ---
[facility] [facility] PROGRESS NOTE Date of Service DOS: DATE: 11/08/20 TIME: :28 Chief Complaint Chief Complaint Acute anemia Acute metabolic, infectious encephalopathy Acute respiratory failure Healthcare associated pneumonia Acute hypoglycemia Hypokalemia Elevated troponins Severe protein malnutrition Morbid obesity AAA, 4 cm, infrarenal History of diabetes mellitus type 2 History of dyslipidemia history of hypertension History of recent STEMI History of CAD History of peripheral artery disease History of JEANNE History of CVA History of paroxysmal atrial fibrillation Ischemic cardiomyopathy History of Present Illness History of Present Illness Afebrile. Opens eyes but no meaningful contact not following commands. Requiring 8 L trach shield O2 mask. 11/07: Not responsive to stimuli, not making eye contact. Afebrile. Seen on 8 L trach collar canula. Hb 9.1 Renal labs stable INR 3.1. 11/06: Patient not meaningfully responding well. On trach shield and BiPAP as needed on trach. PEG feeds with no significant residuals. 11/05: Patient is still unresponsive. Pupils reactive to light and accommodation. No meaningful movements. Actively posturing at bed side. Has peg feeding at 45cc/hr. Trach shield at 8L and BIPAP PRN at 35%. There is an open wound at the site of the peg insertion. Wound care, Dr. Cristobal is consulted. 11/04: Patient is still unresponsive. Pupils reactive to light and accommodation. Actively posturing at bedside. No meaningful movements. Has peg feeding at 45cc/hr. Trach shield at 8L and BIPAP PRN at 35%. 11/03/2020 Patient seen and examined. Discussed with RN and social services director. Chart reviewed. Patient is still unresponsive. Actively decorticate posturing at bedside. Eyes rolled upward. No meaningful movements. Has peg feeding at 45cc/ hr. The bleeding at the peg insertion site has stopped. 11/02/2020 Patient seen and examined. Chart reviewd. Discussed with RN and social services director. Patient is still unresponsive. No meaningful movements. Actively decorticate posturing at bedside. Has peg feeding running at 45cc/hr. Some bleeding at the peg insertion site. 11/01/2020 Patient seen and examined. Discussed with social services director and RN. Patient is still unresponsive. No meaningful movements. Peg feeding is running at 45cc/hr. Patient is actively posturing at bed side. Trach shield at 8L and BIPAP PRN at 35%. 10/31/2020 Patient seen and examined. Chart reviewed. Discussed with social services director and RN. Patient still unresponsive. Patient actively posturing at bed side. Has peg running at 45cc/hr. Vestibulo-ocular reflex intact. 10/30/2020 Patient seen and examined. Discussed with social services director and RN. Chart reviewed. Patient actively posturing at bed side. Has peg running at 45cc/hr. Mr Andrews is a 70-year-old male with a recent prolonged hospitalization for STEMI and respiratory failure for which she was treated with arterial thrombolysis for a right leg popliteal artery aneurysm and also had left heart cath with placement of a stent in the LAD and RCA comes in today after he was found obtunded at his halfway facility. Apparently according to the nursing facility patient was in his usual state of health and he was conversational but then became altered. His blood glucose was found to be in the 30s. Glucose tabs and glucagon was given in route and his GCS reported at 6. Upon arrival patient's mental status did not improve and he was eventually intubated for airway protection. Of note EMS was bagging the patient through the nasal access. In the ED, patient was placed on a vent and pulmonology was consulted. Patient was also taken to the CT scanner for sanders scanning. Patient was started to wake up on the vent and sedation was ordered. 09/23: Patient examined at bedside. Intubated. Not on any sedation but unresponsive. Neurology consult in place. 09/24: Patient seen and examined at bedside. Remains intubated he is off sedation but still remains unresponsive. Planning for MRI brain in the morning. Further plan to be determined by MRI. 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 09/25: Afebrile, currently breathing on ventilator with FiO2 50%, PEEP 5. Had CODE BLUE in ICU this morning; received 2 rounds of CPR, epinephrine, and atropine with ROSC. MRI brain negative. Made DNR, and after discussion with Dr. Rubalcava he agrees. 09/26:: Afebrile. Still on vent, with FiO2 45%, PEEP 5. After discussion with Dr. Rubalcava yesterday, patient was made DNR. In the ED is likely a poor candidate for weaning trials may need trach in near future if no significant improvement. 09/27:: Afebrile. On vent with FiO2 40%, PEEP 5. Potassium 2.8 today, will replace. Warfarin has been resumed. Discussed with pharmacy, will resume aspirin and Plavix. May need tracheostomy by the end of the week if no improvement in mental status. 09/28:: Afebrile. On ventilator with FiO2 40%, PEEP 5. Warfarin has been resumed; INR 1.3 today. Some morning labs still pending; hemoglobin yesterday 7.3, will continue to monitor. Continue IV cefepime and supportive care. 09/29: Afebrile. Breathing on vent with FiO2 40%, PEEP 5. INR 1.2 today; pharmacy to help with warfarin dosing. White count within normal range, renal function stable. Spoke with pharmacy about cefepime 1 g every 8 hours dosing; this has been changed to cefepime 2 g every 8 hours. 09/30: Afebrile. Currently breathing on vent with FiO2 40%, PEEP 5. Continue antibiotics, cefepime 2 g every 8 hours. INR 1.4; continue warfarin dosing per pharmacy. Possible tracheostomy at some point. Critical care time 30 minutes reviewing charts, labs, examination, discussion with RN. 10/01: T-max 100.3 F. On ventilator with FiO2 40%, PEEP 5. Continue antibiotics, cefepime 2 g every 8 hours. INR 1.4, still subtherapeutic; continue warfarin dosing per pharmacy. Possible tracheostomy at some point. 10/02: No acute events overnight. Patient saturating 99% on vent settings of 10/450/40/5. Patient will likely need a trach and PEG at some point. We will hold warfarin and start 2 units PRBC transfusion. Patient's chart, labs, images were reviewed and discussed with RN 10/03: No acute events overnight. Patient sat 100% on minimal vent settings. No sedation at this point and patient is opening his eyes spontaneously. Not much response or spontaneous movements. Surgery has been consulted for tracheostomy. Patient will also likely need a PEG tube. 10/04: No acute events overnight. Patient saturating 90% on minimal vent settings. T-max 100.4 overnight. Plan for trach tomorrow with surgery. Patient's chart, labs, images were reviewed and discussed with RN 10/05: No acute events overnight. Patient saturating 99% on minimal vent settings. Plan for tracheostomy today. Consent is provided by authorization by 2 physicians due to patient having no close relatives or DPOA. Will resume heparin and warfarin bridging tomorrow after tracheostomy 10/07: No acute events overnight. Patient seen and examined bedside. On trach vent. Saturating 99%. Pending GI evaluation for possible PEG placement after discussing with cardiology whether to continue with Plavix. Possibly place PEG if patient is only on aspirin and stopping argatroban. 10/08: No acute events overnight. Patient continues to be on trach mechanical vent. Saturating 100%. Pending decision from GI whether to proceed with PEG placement depending on the type of anticoagulation patient will be on. 10/09: No overnight events. On trach with vent support 40% FiO2 PEEP of 5. Currently argatroban and propofol for minimal sedation. When sedation is weaned he has no meaningful movements but has pulled at his tracheostomy site. Unable to hold plavix due to recently placed stents. 10/10: Afebrile today. On trach with vent support 40% FiO2 PEEP of 5. Continue argatroban and changed to Aggrastat in anticipation of surgical consultation for potential laparoscopic PEG placement. INR 1.6. Hb greater than 9 no significant neurologic recovery today. 10/11: Afebrile. On trach with vent support 40% FiO2 PEEP of 5. INR 1.8. Not making meaningful eye contact. Labs otherwise stable. 10/12: Afebrile. Trach with vent support 40% FiO2 PEEP five O2 saturations 92%. INR 1.8, mag 1.8, Hb 8.4. Not following commands. Tentative plans for surgical PEG next week. 10/13: Afebrile. Trach with vent support 40% FiO2 PEEP 5. Eyes open, not tracking or following commands. Holding Plavix. On argatroban. 10/14: Afebrile. Trach with vent support 40% FiO2 PEEP of 5. Will open eyes intermittently not necessarily to voice. Good urine output. Labs stable. 10/15: Afebrile overnight. Trach with vent AC 40% fio2 PEEP 5. Had a very large cassie wel movement. Still not tracking. Hb 9, INR 1.7, glucose 144. Tentative plan for PEG 10/18/2020 CC time 30 minutes 10/16/20: Patient seen and examined in the ICU. He was resting and still on vent via trach. Has NG running via Dobhoff, feeding at 40cc/hr. AC/10/450/40% plus 5 PEEP. Discussed with RN. Chart reviewed. 10/17/20: Patient was seen and examined in the ICU today. Still on vent via trach at AC/10/450/40 plus 5 PEEP. While examined, patient was at 100% O2 saturation. Has SCDs on for DVT prophylaxis. Stauffer catheter in place. On IV argatroban. R subclavian triple lumen in place. Dobhoff running at 40cc/hr. Discussed with RN. Chart reviewed. 10/18/20: Patient seen and examined in ICU. His eyes are open. On vent via trach with settings that were recently changed to spontaneous respirations with FiO2 of 40 and 5 PEEP. Trach is clean and dry. Currently, oxygen saturation is at 100%. Stauffer to bedside and rectal bag in place. Discussed with RN. Chart reviewed. 10/19/20: Patient was seen and examined in the ICU today. His eyes were open and he was resting. On BiPAP via trach AVAPS/10/450/40 plus 5 PEEP. Trach is clean and dry. Has SCDs for DVT prophylaxis. Patient has rectal bag, Stauffer to bedside, and NG tube in place. Discussed with RN. Chart reviewed. 10/20/20 No acute events overnight. Patient seen and examined bedside. Transferred from the ICU. Continues to be nonverbal and not following much commands. Opens eyes to voice. Currently on BiPAP via trach on AVAPS setting 10/450/40 PEEP of 5. Trach site is clear. No signs of infections. Patient's chart, labs, images were reviewed and discussed with RN 10/21/2020 No acute events overnight. Patient seen and examined bedside. Afebrile. Continues to be nonverbal but opens eyes to voice. Currently on BiPAP. Patient's chart, labs, images were reviewed and discussed with RN. 10/22/2020 No acute events overnight. Patient seen examined bedside. Continue with argatroban until warfarin goal INR of 4 and maintenance goal of 2-3. Please see electronics technology department chair note. Pending appointing a legal guardian. Patient's chart, labs, images were reviewed and discussed with RN 10/23/2020 laparoscopic gastrostomy tube placement (specifically 24 F) Oct discharge planning in place once court appointed DPOA available Acute anemia Acute metabolic, infectious encephalopathy Acute respiratory failure Healthcare associated pneumonia Acute hypoglycemia Hypokalemia Elevated troponins Severe protein malnutrition Morbid obesity AAA, 4 cm, infrarenal History of diabetes mellitus type 2 History of dyslipidemia history of hypertension Patient seen examined bedside. argatroban until warfarin goal INR of 4 and maintenance goal of 2-3. Pending appointing a legal guardian. Patient's chart, labs, images were reviewed and discussed with KARY Cardenas Enteric tube with metallic tip in the left upper quadrant likely in the stomach. 10/24/2020 doing well on trach shield on a 24-hour basis./ blood gases shows no worsening hypercapnia while on trach shield. No apneic breathing reported. laparoscopic gastrostomy tube placement (specifically 24 F) Oct discharge planning in place once court appointed DPOA available Acute anemia Acute metabolic, infectious encephalopathy Acute respiratory failure Healthcare associated pneumonia Acute hypoglycemia Hypokalemia Elevated troponins Severe protein malnutrition Morbid obesity AAA, 4 cm, infrarenal History of diabetes mellitus type 2 History of dyslipidemia history of hypertension Patient seen examined bedside. argatroban until warfarin goal INR of 4 and maintenance goal of 2-3. Pending appointing a legal guardian. Patient's chart, labs, images were reviewed and discussed with KARY Cardenas Enteric tube with metallic tip in the left upper quadrant likely in the stomach. Home on plavix and warfarin D/C INITIAL PLAN TO [facility] PEND[facility]/ discharge planning in place once court appointed DPOA available D/W RN 10/25/2020 doing well on trach shield on a 24-hour basis./ blood gases shows no worsening hypercapnia while on trach shield. No apneic breathing reported. laparoscopic gastrostomy tube placement (specifically 24 F) Oct discharge planning in place once court appointed DPOA available Acute anemia Acute metabolic, infectious encephalopathy Acute respiratory failure Healthcare associated pneumonia Acute hypoglycemia Hypokalemia Elevated troponins Severe protein malnutrition Morbid obesity AAA, 4 cm, infrarenal History of diabetes mellitus type 2 History of dyslipidemia history of hypertension Patient seen examined bedside. argatroban until warfarin goal INR of 4 and maintenance goal of 2-3. Pending appointing a legal guardian. Patient's chart, labs, images were reviewed and discussed with KARY Cardenas Enteric tube with metallic tip in the left upper quadrant likely in the stomach. Home on plavix and warfarin D/C INITIAL PLAN TO [facility] PENDING/ discharge planning in place once court appointed DPOA available D/W RN 10/26/2020 HGB 9.4 doing well on trach shield on a 24-hour basis./ blood gases shows no worsening hypercapnia while on trach shield. No apneic breathing reported. laparoscopic gastrostomy tube placement (specifically 24 F) Oct discharge planning in place once court appointed DPOA available Acute anemia Acute metabolic, infectious encephalopathy Acute respiratory failure Healthcare associated pneumonia Acute hypoglycemia Hypokalemia Elevated troponins Severe protein malnutrition Morbid obesity AAA, 4 cm, infrarenal History of diabetes mellitus type 2 History of dyslipidemia history of hypertension Patient seen examined bedside. argatroban until warfarin goal INR of 4 and maintenance goal of 2-3. Pending appointing a legal guardian. Patient's chart, labs, images were reviewed and discussed with KARY Cardenas Enteric tube with metallic tip in the left upper quadrant likely in the stomach. Home on plavix and warfarin D/C INITIAL PLAN TO [facility] PENDING/ discharge planning in place once court appointed DPOA available D/W RN 10/27/2020 HGB 9.4 doing well on trach shield on a 24-hour basis./ blood gases shows no worsening hypercapnia while on trach shield. No apneic breathing reported. laparoscopic gastrostomy tube placement (specifically 24 F) Oct discharge planning in place once court appointed DPOA available Acute anemia Acute metabolic, infectious encephalopathy Acute respiratory failure Healthcare associated pneumonia Acute hypoglycemia Hypokalemia Elevated troponins Severe protein malnutrition Morbid obesity AAA, 4 cm, infrarenal History of diabetes mellitus type 2 History of dyslipidemia history of hypertension Patient seen examined bedside. argatroban until warfarin goal INR of 4 and maintenance goal of 2-3. Pending appointing a legal guardian. Patient's chart, labs, images were reviewed and discussed with KARY Cardenas Enteric tube with metallic tip in the left upper quadrant likely in the stomach. Home on plavix and warfarin D/C INITIAL PLAN TO [facility] PENDING/ discharge planning in place once court appointed DPOA available D/W RN 10/28/2020 HGB 9.4 doing well on trach shield on a 24-hour basis./ blood gases shows no worsening hypercapnia while on trach shield. No apneic breathing reported. laparoscopic gastrostomy tube placement (specifically 24 F) Oct discharge planning in place once court appointed DPOA available Acute anemia Acute metabolic, infectious encephalopathy Acute respiratory failure Healthcare associated pneumonia Acute hypoglycemia Hypokalemia Elevated troponins Severe protein malnutrition Morbid obesity AAA, 4 cm, infrarenal History of diabetes mellitus type 2 History of dyslipidemia history of hypertension Patient seen examined bedside. argatroban until warfarin goal INR of 4 and maintenance goal of 2-3. Pending appointing a legal guardian. Patient's chart, labs, images were reviewed and discussed with KARY Cardenas Enteric tube with metallic tip in the left upper quadrant likely in the stomach. Home on plavix and warfarin D/C INITIAL PLAN TO [facility] PENDING/ discharge planning in place once court appointed DPOA available D/W RN Vitals/I&O Vitals/I&O: Vital Signs Date Time Temp Pulse Resp B/P (MAP) Pulse Ox O2 Delivery O2 Flow Rate FiO2 11/08/20 10:29 98.5 86 20 120/78 (92) 100 TRACH SHIELD 8.0 98.5 I & O 11/07/20 11/07/20 11/08/20 15:00 23:00 07:00 Intake Total 542 ml 200 ml 200 ml Output Total 900 ml 350 ml Balance 542 ml -700 ml -150 ml Physical Exam Physical Exam: Neuro: actively posturing. Pulpils dialated but reactive to light and accomendation. Flaccidity in the lower extremity bilaterally. Equivocal Babinski. General: Other (actively posturing. No meaningful movements. ) Heart: Regular rate (SR), Other (distant heart sounds) Lungs: Other (Tracheostomy with trach shield. Deminished breath sounds.) Abdomen: Soft, Other (g tube in place) Extremities: No cyanosis, Other (2-3+ bilateral LE pitting edema) Skin: No rashes, No significant lesion Labs Labs: Laboratory Tests Test 11/07/20 11:53 11/07/20 17:20 11/08/20 00:06 11/08/20 06:23 Glucose (Fingerstick) 171 mg/dL (70-99) 167 mg/dL (70-99) 138 mg/dL (70-99) 133 mg/dL (70-99) Assessment and Plan Assessmemt and Plan Problems Medical Problems: (1) NSTEMI (non-ST elevated myocardial infarction) Status: Acute (2) Obtundation Status: Acute (3) Respiratory arrest Status: Acute Comment Review of Relevant I have reviewed the following items denise (where applicable) has been applied. Justifications for Admission Other Justification Hypoglycemia and altered mental status. JARRED SINGH MD Nov 08, 2020 11:29
--- NOTE | 2020-11-08 12:47 | NUR ---
SS following up with discharge planning. SS reviewed pt chart and discussed with pt RN. Pt is currently on trach shield at eight liters. G-Tube in place. Pt on IV Lasix. COVID19 negative. Pt in need of DPOA or Guardianship for placement at LTACH or LTC facility. Caddymaster, Amarilis Matthews, assigned to case and is in need of proposed guardian prior to proceeding. [facility] hotline report made for assistance. SS currently awaiting for response from [facility]. SS will continue to follow for discharge planning.
[2020-11-08 14:34] VITALS: BP 113/64
[2020-11-08] MEDS: WARFARIN 4 MG TABLET. PO SCH (17:29)
[2020-11-08 19:22] VITALS: BP 114/70
[2020-11-08] MEDS: ATORVASTATIN CALCIUM 40 MG TABLET. PO SCH (21:15)
[2020-11-08 22:59] VITALS: BP 135/77
[2020-11-09 02:17] VITALS: BP 104/71
[2020-11-09] MEDS: INSULIN LISPRO 300 UNITS/3 ML VIAL. SQ SCH ×4 (06:00→17:28)
[2020-11-09 06:38] LABS: PROTHROMBIN TIME PATIENT 27.1 SEC (11.7-14.0)
[2020-11-09 07:22] VITALS: BP 119/79
[2020-11-09] MEDS: DOCUSATE 100 MG/10 ML SOLUTION. PO SCH (09:07)
[2020-11-09] MEDS: PANTOPRAZOLE IV PUSH 40 MG VIAL. IVP SCH (09:07)
[2020-11-09] MEDS: POTASSIUM BICARB 20 MEQ EFFERVESCENT TABLET. PEG SCH (09:08)
[2020-11-09] MEDS: FUROSEMIDE 40 MG/4 ML VIAL. IVP SCH (09:08)
[2020-11-09] MEDS: AMIODARONE HCL 200 MG TABLET. PO SCH (09:10)
[2020-11-09] MEDS: CLOPIDOGREL BISULFATE 75 MG TABLET PO SCH (09:11)
[2020-11-09] MEDS: METOPROLOL TART IMMED RELEASE 25 MG TABLET. PO SCH ×2 (09:11→20:53)
[2020-11-09] MEDS: ASPIRIN CHEWABLE 81 MG TABLET. PO SCH (09:11)
--- NOTE | 2020-11-09 09:52 | NUR ---
SS following up with discharge planning. SS reviewed pt chart and discussed with pt RN. Pt is currently on trach shield at eight liters. G-Tube in place. Pt on IV Lasix. COVID19 negative. Pt in need of DPOA or Guardianship for placement at LTACH or LTC facility. Manager Machine, Amarilis Matthews, assigned to case and is in need of proposed guardian prior to proceeding. DCF hotline report made for assistance. SS spoke with APS worker, Tessa Delgadillo, ; fax [phone], regarding hotline reports. SS was informed that DCF is overwhelmed with cases as of right now and there is a waiting list for Guardianship for the open cases that they do have. She reported that since pt is in a safe place DCF will most likely not open an active case for pt. She reported that she would perform an extensive background check to see if any names of individuals or family from past cases are listed. She reported that she would also speak with Nay at the [place] [employer] [facility] to see if there was anyway possible they could take the case without having an open DCF case. Tessa reported that she would staff with her instrument repair supervisor and let me know. Tessa recommended that if proposed guardian was not found and DCF is unable to assist further the hospital administration could speak with the hired multicultural manager and pay additional cost for her to contact other law firms and seek out a law firm that would represent pt as his Guardian. SS discussed with Case supervisor network control operators, Clifton Mosqueda. SS will continue to follow for discharge planning.
[2020-11-09 10:20] VITALS: BP 120/72
[2020-11-09 14:11] VITALS: BP 145/55
--- NOTE | 2020-11-09 15:03 | PDOC ---
[facility] PROGRESS NOTE Date of Service DOS: DATE: 11/09/20 TIME: 15:02 Chief Complaint Chief Complaint Acute anemia Acute metabolic, infectious encephalopathy Acute respiratory failure Healthcare associated pneumonia Acute hypoglycemia Hypokalemia Elevated troponins Severe protein malnutrition Morbid obesity AAA, 4 cm, infrarenal History of diabetes mellitus type 2 History of dyslipidemia history of hypertension History of recent STEMI History of CAD History of peripheral artery disease History of JEANNE History of CVA History of paroxysmal atrial fibrillation Ischemic cardiomyopathy History of Present Illness History of Present Illness Afebrile. Still encephalopathic not making any meaningful eye contact or movements not following commands. Waiting for guardianship. 8 L trach shield O2. Tolerating tube feeds well 45 cc/h. INR 2.6 11/08: Afebrile. Opens eyes but no meaningful contact not following commands. Requiring 8 L trach shield O2 mask. 11/07: Not responsive to stimuli, not making eye contact. Afebrile. Seen on 8 L trach collar canula. Hb 9.1 Renal labs stable INR 3.1. 11/06: Patient not meaningfully responding well. On trach shield and BiPAP as needed on trach. PEG feeds with no significant residuals. 11/05: Patient is still unresponsive. Pupils reactive to light and accommodation. No meaningful movements. Actively posturing at bed side. Has peg feeding at 45cc/hr. Trach shield at 8L and BIPAP PRN at 35%. There is an open wound at the site of the peg insertion. Wound care, Dr. Cristobal is consulted. 11/04: Patient is still unresponsive. Pupils reactive to light and accommodation. Actively posturing at bedside. No meaningful movements. Has peg feeding at 45cc/hr. Trach shield at 8L and BIPAP PRN at 35%. 11/03/2020 Patient seen and examined. Discussed with RN and social media coordinator. Chart reviewed. Patient is still unresponsive. Actively decorticate posturing at bedside. Eyes rolled upward. No meaningful movements. Has peg feeding at 45cc/hr. The bleeding at the peg insertion site has stopped. 11/02/2020 Patient seen and examined. Chart reviewd. Discussed with RN and social media coordinator. Patient is still unresponsive. No meaningful movements. Actively decorticate posturing at bedside. Has peg feeding running at 45cc/hr. Some bleeding at the peg insertion site. 11/01/2020 Patient seen and examined. Discussed with social media coordinator and RN. Patient is still unresponsive. No meaningful movements. Peg feeding is running at 45cc/hr. Patient is actively posturing at bed side. Trach shield at 8L and BIPAP PRN at 35%. 10/31/2020 Patient seen and examined. Chart reviewed. Discussed with social media coordinator and RN. Patient still unresponsive. Patient actively posturing at bed side. Has peg running at 45cc/hr. Vestibulo-ocular reflex intact. 10/30/2020 Patient seen and examined. Discussed with social media coordinator and RN. Chart reviewed. Patient actively posturing at bed side. Has peg running at 45cc/hr. Mr Andrews is a 70-year-old male with a recent prolonged hospitalization for STEMI and respiratory failure for which she was treated with arterial thrombolysis for a right leg popliteal artery aneurysm and also had left heart cath with placement of a stent in the LAD and RCA comes in today after he was found obtunded at his correction facility. Apparently according to the nursing facility patient was in his usual state of health and he was conversational but then became altered. His blood glucose was found to be in the 30s. Glucose tabs and glucagon was given in route and his GCS reported at 6. Upon arrival patient's mental status did not improve and he was eventually intubated for airway protection. Of note EMS was bagging the patient through the nasal access. In the ED, patient was placed on a vent and pulmonology was consulted. Patient was also taken to the CT scanner for sanders scanning. Patient was started to wake up on the vent and sedation was ordered. 09/23: Patient examined at bedside. Intubated. Not on any sedation but unresponsive. Neurology consult in place. 09/24: Patient seen and examined at bedside. Remains intubated he is off sedation but still remains unresponsive. Planning for MRI brain in the morning. Further plan to be determined by MRI. 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 09/25: Afebrile, currently breathing on ventilator with FiO2 50%, PEEP 5. Had CODE BLUE in ICU this morning; received 2 rounds of CPR, epinephrine, and atropine with ROSC. MRI brain negative. Made DNR, and after discussion with Dr. Rubalcava he agrees. 09/26:: Afebrile. Still on vent, with FiO2 45%, PEEP 5. After discussion with Dr. Rubalcava yesterday, patient was made DNR. In the ED is likely a poor candidate for weaning trials may need trach in near future if no significant improvement. 09/27:: Afebrile. On vent with FiO2 40%, PEEP 5. Potassium 2.8 today, will replace. Warfarin has been resumed. Discussed with pharmacy, will resume aspirin and Plavix. May need tracheostomy by the end of the week if no improvement in mental status. 09/28:: Afebrile. On ventilator with FiO2 40%, PEEP 5. Warfarin has been resumed; INR 1.3 today. Some morning labs still pending; hemoglobin yesterday 7.3, will continue to monitor. Continue IV cefepime and supportive care. 09/29: Afebrile. Breathing on vent with FiO2 40%, PEEP 5. INR 1.2 today; pharmacy to help with warfarin dosing. White count within normal range, renal function stable. Spoke with pharmacy about cefepime 1 g every 8 hours dosing; this has been changed to cefepime 2 g every 8 hours. 09/30: Afebrile. Currently breathing on vent with FiO2 40%, PEEP 5. Continue antibiotics, cefepime 2 g every 8 hours. INR 1.4; continue warfarin dosing per pharmacy. Possible tracheostomy at some point. Critical care time 30 minutes reviewing charts, labs, examination, discussion with RN. 10/01: T-max 100.3 F. On ventilator with FiO2 40%, PEEP 5. Continue antibiotics, cefepime 2 g every 8 hours. INR 1.4, still subtherapeutic; c ontinue warfarin dosing per pharmacy. Possible tracheostomy at some point. 10/02: No acute events overnight. Patient saturating 99% on vent settings of 10/450/40/5. Patient will likely need a trach and PEG at some point. We will hold warfarin and start 2 units PRBC transfusion. Patient's chart, labs, images were reviewed and discussed with RN 10/03: No acute events overnight. Patient sat 100% on minimal vent settings. No sedation at this point and patient is opening his eyes spontaneously. Not much response or spontaneous movements. Surgery has been consulted for tracheostomy. Patient will also likely need a PEG tube. 10/04: No acute events overnight. Patient saturating 90% on minimal vent settings. T-max 100.4 overnight. Plan for trach tomorrow with surgery. Patient's chart, labs, images were reviewed and discussed with RN 10/05: No acute events overnight. Patient saturating 99% on minimal vent settings. Plan for tracheostomy today. Consent is provided by authorization by 2 physicians due to patient having no close relatives or DPOA. Will resume heparin and warfarin bridging tomorrow after tracheostomy 10/07: No acute events overnight. Patient seen and examined bedside. On trach vent. Saturating 99%. Pending GI evaluation for possible PEG placement after discussing with cardiology whether to continue with Plavix. Possibly place PEG if patient is only on aspirin and stopping argatroban. 10/08: No acute events overnight. Patient continues to be on trach mechanical vent. Saturating 100%. Pending decision from GI whether to proceed with PEG placement depending on the type of anticoagulation patient will be on. 10/09: No overnight events. On trach with vent support 40% FiO2 PEEP of 5. Currently argatroban and propofol for minimal sedation. When sedation is weaned he has no meaningful movements but has pulled at his tracheostomy site. Unable to hold plavix due to recently placed stents. 10/10: Afebrile today. On trach with vent support 40% FiO2 PEEP of 5. Continue argatroban and changed to Aggrastat in anticipation of surgical consultation for potential laparoscopic PEG placement. INR 1.6. Hb greater than 9 no signif icant neurologic recovery today. 10/11: Afebrile. On trach with vent support 40% FiO2 PEEP of 5. INR 1.8. Not making meaningful eye contact. Labs otherwise stable. 10/12: Afebrile. Trach with vent support 40% FiO2 PEEP five O2 saturations 92%. INR 1.8, mag 1.8, Hb 8.4. Not following commands. Tentative plans for surgical PEG next week. 10/13: Afebrile. Trach with vent support 40% FiO2 PEEP 5. Eyes open, not tracking or following commands. Holding Plavix. On argatroban. 10/14: Afebrile. Trach with vent support 40% FiO2 PEEP of 5. Will open eyes intermittently not necessarily to voice. Good urine output. Labs stable. 10/15: Afebrile overnight. Trach with vent AC 40% fio2 PEEP 5. Had a very large bowel movement. Still not tracking. Hb 9, INR 1.7, glucose 144. Tentative plan for PEG 10/18/2020 CC time 30 minutes 10/16/20: Patient seen and examined in the ICU. He was resting and still on vent via trach. Has NG running via Dobhoff, feeding at 40cc/hr. AC/10/450/40% plus 5 PEEP. Discussed with RN. Chart reviewed. 10/17/20: Patient was seen and examined in the ICU today. Still on vent via trach at AC/10/450/40 plus 5 PEEP. While examined, patient was at 100% O2 saturation. Has SCDs on for DVT prophylaxis. Stauffer catheter in place. On IV argatroban. R jenkins bclavian triple lumen in place. Dobhoff running at 40cc/hr. Discussed with RN. Chart reviewed. 10/18/20: Patient seen and examined in ICU. His eyes are open. On vent via trach with settings that were recently changed to spontaneous respirations with FiO2 o f 40 and 5 PEEP. Trach is clean and dry. Currently, oxygen saturation is at 100%. Stauffer to bedside and rectal bag in place. Discussed with RN. Chart reviewed. 10/19/20: Patient was seen and examined in the ICU today. His eyes were open and he was resting. On BiPAP via trach AVAPS/10/450/40 plus 5 PEEP. Trach is clean and dry. Has SCDs for DVT prophylaxis. Patient has rectal bag, Stauffer to bedside, and NG tube in place. Discussed with RN. Chart reviewed. 10/20/20 No acute events overnight. Patient seen and examined bedside. Transferred from the ICU. Continues to be nonverbal and not following much commands. Opens eyes to voice. Currently on BiPAP via trach on AVAPS setting 10/450/40 PEEP of 5. Trach site is clear. No signs of infections. Patient's chart, labs, images were reviewed and discussed with RN 10/21/2020 No acute events overnight. Patient seen and examined bedside. Afebrile. Continues to be nonverbal but opens eyes to voice. Currently on BiPAP. Patient's chart, labs, images were reviewed and discussed with RN. 10/22/2020 No acute events overnight. Patient seen examined bedside. Continue with argatroban until warfarin goal INR of 4 and maintenance goal of 2-3. Please see mechanical fitter note. Pending appointing a legal guardian. Patient's chart, labs, images were reviewed and discussed with RN 10/23/2020 laparoscopic gastrostomy tube placement (specifically 24 F) Oct discharge planning in place once court appointed DPOA available Acute anemia Acute metabolic, infectious encephalopathy Acute respiratory failure Healthcare associated pneumonia Acute hypoglycemia Hypokalemia Elevated troponins Severe protein malnutrition Morbid obesity AAA, 4 cm, infrarenal History of diabetes mellitus type 2 History of dyslipidemia history of hypertension Patient seen examined bedside. argatroban until warfarin goal INR of 4 and maintenance goal of 2-3. Pending appointing a legal guardian. Patient's chart, labs, images were reviewed and discussed with KARY Cardenas Enteric tube with metallic tip in the left upper quadrant likely in the stomach. 10/24/2020 doing well on trach shield on a 24-hour basis./ blood gases shows no worsening hypercapnia while on trach shield. No apneic breathing reported. laparoscopic gastrostomy tube placement (specifically 24 F) Oct discharge planning in place once court appointed DPOA available Acute anemia Acute metabolic, infectious encephalopathy Acute respiratory failure Healthcare associated pneumonia Acute hypoglycemia Hypokalemia Elevated troponins Severe protein malnutrition Morbid obesity AAA, 4 cm, infrarenal History of diabetes mellitus type 2 History of dyslipidemia history of hypertension Patient seen examined bedside. argatroban until warfarin goal INR of 4 and maintenance goal of 2-3. Pending appointing a legal guardian. Patient's chart, labs, images were reviewed and discussed with KARY Cardenas Enteric tube with metallic tip in the left upper quadrant likely in the stomach. Home on plavix and warfarin D/C INITIAL PLAN TO [facility]END[facility]/ discharge planning in place once court appointed DPOA available D/W RN 10/25/2020 doing well on trach shield on a 24-hour basis./ blood gases shows no worsening hypercapnia while on trach shield. No apneic breathing reported. laparoscopic gastrostomy tube placement (specifically 24 F) Oct discharge planning in place once court appointed DPOA available Acute anemia Acute metabolic, infectious encephalopathy Acute respiratory failure Healthcare associated pneumonia Acute hypoglycemia Hypokalemia Elevated troponins Severe protein malnutrition Morbid obesity AAA, 4 cm, infrarenal History of diabetes mellitus type 2 History of dyslipidemia history of hypertension Patient seen examined bedside. argatroban until warfarin goal INR of 4 and maintenance goal of 2-3. Pending appointing a legal guardian. Patient's chart, labs, images were reviewed and discussed with KARY Cardenas Enteric tube with metallic tip in the left upper quadrant likely in the stomach. Home on plavix and warfarin D/C INITIAL PLAN TO [facility] PENDING/ discharge planning in place once court appointed DPOA available D/W RN 10/26/2020 HGB 9.4 doing well on trach shield on a 24-hour basis./ blood gases shows no worsening hypercapnia while on trach shield. No apneic breathing reported. laparoscopic gastrostomy tube placement (specifically 24 F) Oct discharge planning in place once court appointed DPOA available Acute anemia Acute metabolic, infectious encephalopathy Acute respiratory failure Healthcare associated pneumonia Acute hypoglycemia Hypokalemia Elevated troponins Severe protein malnutrition Morbid obesity AAA, 4 cm, infrarenal History of diabetes mellitus type 2 History of dyslipidemia history of hypertension Patient seen examined bedside. argatroban until warfarin goal INR of 4 and maintenance goal of 2-3. Pending appointing a legal guardian. Patient's chart, labs, images were reviewed and discussed with KARY Cardenas Enteric tube with metallic tip in the left upper quadrant likely in the stomach. Home on plavix and warfarin D/C INITIAL PLAN TO [facility]END[facility]/ discharge planning in place once court appointed DPOA available D/W RN 10/27/2020 HGB 9.4 doing well on trach shield on a 24-hour basis./ blood gases shows no worsening hypercapnia while on trach shield. No apneic breathing reported. laparoscopic gastrostomy tube placement (specifically 24 F) Oct discharge planning in place once court appointed DPOA available Acute anemia Acute metabolic, infectious encephalopathy Acute respiratory failure Healthcare associated pneumonia Acute hypoglycemia Hypokalemia Elevated troponins Severe protein malnutrition Morbid obesity AAA, 4 cm, infrarenal History of diabetes mellitus type 2 History of dyslipidemia history of hypertension Patient seen examined bedside. argatroban until warfarin goal INR of 4 and maintenance goal of 2-3. Pending appointing a legal guardian. Patient's chart, labs, images were reviewed and discussed with KARY Cardenas Enteric tube with metallic tip in the left upper quadrant likely in the stomach. Home on plavix and warfarin D/C INITIAL PLAN TO [facility]END[facility]/ discharge planning in place once court appointed DPOA available D/W RN 10/28/2020 HGB 9.4 doing well on trach shield on a 24-hour basis./ blood gases shows no worsening hypercapnia while on trach shield. No apneic breathing reported. laparoscopic gastrostomy tube placement (specifically 24 F) Oct discharge planning in place once court appointed DPOA available Acute anemia Acute metabolic, infectious encephalopathy Acute respiratory failure Healthcare associated pneumonia Acute hypoglycemia Hypokalemia Elevated troponins Severe protein malnutrition Morbid obesity AAA, 4 cm, infrarenal History of diabetes mellitus type 2 History of dyslipidemia history of hypertension Patient seen examined bedside. argatroban until warfarin goal INR of 4 and maintenance goal of 2-3. Pending appointing a legal guardian. Patient's chart, labs, images were reviewed and discussed with KARY Cardenas Enteric tube with metallic tip in the left upper quadrant likely in the stomach. Home on plavix and warfarin D/C INITIAL PLAN TO [facility]END[facility]/ discharge planning in place once court appointed DPOA available D/W RN Vitals/I&O Vitals/I&O: Vital Signs Date Time Temp Pulse Resp B/P (MAP) Pulse Ox O2 Delivery O2 Flow Rate FiO2 11/09/20 14:11 98.9 72 18 145/55 (85) 99 Tracheal Collar 98.9 11/09/20 12:25 8.0 I & O 11/08/20 11/08/20 11/09/20 15:00 23:00 07:00 Intake Total 200 ml 200 ml 731 ml Output Total 850 ml 400 ml Balance -650 ml 200 ml 331 ml Physical Exam Physical Exam: Neuro: actively posturing. Pulpils dialated but reactive to light and accomendation. Flaccidity in the lower extremity bilaterally. Equivocal Babinski. General: Other (actively posturing. No meaningful movements. ) Heart: Regular rate (SR), Other (distant heart sounds) Lungs: Other (Tracheostomy with trach shield. Deminished breath sounds.) Abdomen: Soft, Other (g tube in place) Extremities: No cyanosis, Other (2-3+ bilateral LE pitting edema) Skin: No rashes, No significant lesion Labs Labs: Laboratory Tests Test 11/08/20 16:35 11/09/20 00:24 11/09/20 06:10 11/09/20 11:52 Glucose (Fingerstick) 149 mg/dL (70-99) 150 mg/dL (70-99) 190 mg/dL (70-99) Prothrombin Time 27.1 SEC (11.7-14.0) Prothromb Time International Ratio 2.6 (0.8-1.1) Assessment and Plan Assessmemt and Plan Problems Medical Problems: (1) NSTEMI (non-ST elevated myocardial infarction) Status: Acute (2) Obtundation Status: Acute (3) Respiratory arrest Status: Acute Comment Review of Relevant I have reviewed the following items denise (where applicable) has been applied. Justifications for Admission Other Justification Hypoglycemia and altered mental status. JARRED SINGH MD Nov 09, 2020 15:03
[2020-11-09] MEDS: WARFARIN 4 MG TABLET. PO SCH (17:28)
[2020-11-09 19:14] VITALS: BP 110/56
[2020-11-09] MEDS: ATORVASTATIN CALCIUM 40 MG TABLET. PO SCH (20:52)
[2020-11-09 22:55] VITALS: BP 106/63
[2020-11-10 02:35] VITALS: BP 119/65
[2020-11-10 05:51] LABS: PROTHROMBIN TIME PATIENT 29.2 SEC (11.7-14.0)
[2020-11-10] MEDS: INSULIN LISPRO 300 UNITS/3 ML VIAL. SQ SCH ×4 (06:00→18:00)
--- NOTE | 2020-11-10 07:51 | NUR ---
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 Vitamin K given: N Drug Interaction Changes: Same Interacting Drug Ongoing Drug Interactions: amiodarone, aspirin, plavix A:INR of 2.8 is within desired range. Target range for this patient is: 2 -3 P: Warfarin dose: 3 mg Today at 1600 Bridge Therapy: None Therapeutic Next INR due 11/12/20. Pharmacy anticoagulation service will continue to follow. PEDRO LEE RPH, 11/10/20 [id number]
[2020-11-10 07:55] VITALS: BP 131/63
[2020-11-10] MEDS: FUROSEMIDE 40 MG/4 ML VIAL. IVP SCH (09:36)
[2020-11-10] MEDS: POTASSIUM BICARB 20 MEQ EFFERVESCENT TABLET. PEG SCH (09:37)
[2020-11-10] MEDS: AMIODARONE HCL 200 MG TABLET. PO SCH (09:41)
[2020-11-10] MEDS: LANSOPRAZOLE 30 MG TAB.RAP.DR FT SCH (09:41)
[2020-11-10] MEDS: DOCUSATE 100 MG/10 ML SOLUTION. PO SCH (09:42)
[2020-11-10] MEDS: CLOPIDOGREL BISULFATE 75 MG TABLET PO SCH (09:42)
[2020-11-10] MEDS: METOPROLOL TART IMMED RELEASE 25 MG TABLET. PO SCH ×2 (09:42→20:36)
[2020-11-10] MEDS: ASPIRIN CHEWABLE 81 MG TABLET. PO SCH (09:44)
--- NOTE | 2020-11-10 10:00 | NUR ---
SS following up with discharge planning. SS reviewed pt chart and discussed with pt RN. Pt is currently on trach shield at 35%. G-Tube in place. Pt on IV Lasix. COVID19 negative. Pt in need of DPOA or Guardianship for placement at LTACH or LTC facility. Technical Project Lead, Amarilis Matthews, assigned to case and is in need of proposed guardian prior to proceeding. DCF hotline report made for assistance. spoke with APS worker, Tessa Delgadillo, ; fax [phone], regarding hotline reports. Tessa was able to conduct an extensive background check and provide SS with a list of numbers. SS was able to contact a Niece, Casandra, . Clinical update provided to pt's niece. Pt's niece reported that she needed to discuss with her sister and would like to visit and see pt prior to making any decisions. She reported that she would be at the hospital at 1845 to visit. RN Radiology Technician notified and visit approved. Physician notified. SS will continue to follow for discharge planning. Addendum: 11/10/20 at 1618 by CHIKIS JO Pt's niece contacted SS and reported that she is still trying to reach pt's sister in [place] and reported that she will keep trying tonight and will come to visit pt at 0800 tomorrow. Floor notified.
[2020-11-10 10:06] VITALS: BP 106/59
--- NOTE | 2020-11-10 11:47 | PDOC ---
[employer] PROGRESS NOTE Date of Service DOS: DATE: 11/10/20 TIME: 11:46 Chief Complaint Chief Complaint Acute anemia Acute metabolic, infectious encephalopathy Acute respiratory failure Healthcare associated pneumonia Acute hypoglycemia Hypokalemia Elevated troponins Severe protein malnutrition Morbid obesity AAA, 4 cm, infrarenal History of diabetes mellitus type 2 History of dyslipidemia history of hypertension History of recent STEMI History of CAD History of peripheral artery disease History of JEANNE History of CVA History of paroxysmal atrial fibrillation Ischemic cardiomyopathy History of Present Illness History of Present Illness Afebrile. Continues to be encephalopathic no meaningful eye contact movements not following commands. Requiring 8 L trach shield O2 to maintain saturations 91%. No residuals on tube feeds 45 cc/h. INR 2.8. Throughout heroic efforts by social work estranged family has been found and has a niece who will be visiting sometime potentially later today or tomorrow 11/09: Afebrile. Still encephalopathic not making any meaningful eye contact or movements not following commands. Waiting for guardianship. 8 L trach shield O2. Tolerating tube feeds with no residuals 45 cc/h. INR 2.6 11/08: Afebrile. Opens eyes but no meaningful contact not following commands. Requiring 8 L trach shield O2 mask. 11/07: Not responsive to stimuli, not making eye contact. Afebrile. Seen on 8 L trach collar canula. Hb 9.1 Renal labs stable INR 3.1. 11/06: Patient not meaningfully responding well. On trach shield and BiPAP as needed on trach. PEG feeds with no significant residuals. 11/05: Patient is still unresponsive. Pupils reactive to light and accommodation. No meaningful movements. Actively posturing at bed side. Has peg feeding at 45cc/hr. Trach shield at 8L and BIPAP PRN at 35%. There is an open wound at the site of the peg insertion. Wound care, Dr. Cristobal is consulted. 11/04: Patient is still unresponsive. Pupils reactive to light and accommodation. Actively posturing at bedside. No meaningful movements. Has peg feeding at 45cc/hr. Trach shield at 8L and BIPAP PRN at 35%. 11/03/2020 Patient seen and examined. Discussed with RN and social worker aide. Chart reviewed. Patient is still unresponsive. Actively decorticate posturing at bedside. Eyes rolled upward. No meaningful movements. Has peg feeding at 45cc/hr. The bleeding at the peg insertion site has stopped. 11/02/2020 Patient seen and examined. Chart reviewd. Discussed with RN and social worker aide. Patient is still unresponsive. No meaningful movements. Actively decorticate posturing at bedside. Has peg feeding running at 45cc/hr. Some bleeding at the peg insertion site. 11/01/2020 Patient seen and examined. Discussed with social worker aide and RN. Patient is still unresponsive. No meaningful movements. Peg feeding is running at 45cc/hr. Patient is actively posturing at bed side. Trach shield at 8L and BIPAP PRN at 35%. 10/31/2020 Patient seen and examined. Chart reviewed. Discussed with social worker aide and RN. Patient still unresponsive. Patient actively posturing at bed side. Has peg running at 45cc/hr. Vestibulo-ocular reflex intact. 10/30/2020 Patient seen and examined. Discussed with social worker aide and RN. Chart reviewed. Patient actively posturing at bed side. Has peg running at 45cc/hr. Mr Andrews is a 70-year-old male with a recent prolonged hospitalization for STEMI and respiratory failure for which she was treated with arterial thrombolysis for a right leg popliteal artery aneurysm and also had left heart cath with placement of a stent in the LAD and RCA comes in today after he was found obtunded at his shelter facility. Apparently according to the nursing facility patient was in his usual state of health and he was conversational but then became altered. His blood glucose was found to be in the 30s. Glucose tabs and glucagon was given in route and his GCS reported at 6. Upon arrival patient's mental status did not improve and he was eventually intubated for airway protection. Of note EMS was bagging the patient through the nasal access. In the ED, patient was placed on a vent and pulmonology was consulted. Patient was also taken to the CT scanner for sanders scanning. Patient was started to wake up on the vent and sedation was ordered. 09/23: Patient examined at bedside. Intubated. Not on any sedation but unresponsive. Neurology consult in place. 09/24: Patient seen and examined at bedside. Remains intubated he is off sedation but still remains unresponsive. Planning for MRI brain in the morning. Further plan to be determined by MRI. 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 09/25: Afebrile, currently breathing on ventilator with FiO2 50%, PEEP 5. Had CODE BLUE in ICU this morning; received 2 rounds of CPR, epinephrine, and atropine with ROSC. MRI brain negative. Made DNR, and after discussion with Dr. Rubalcava he agrees. 09/26:: Afebrile. Still on vent, with FiO2 45%, PEEP 5. After discussion with Dr. Rubalcava yesterday, patient was made DNR. In the ED is likely a poor candidate for weaning trials may need trach in near future if no significant improvement. 09/27:: Afebrile. On vent with FiO2 40%, PEEP 5. Potassium 2.8 today, will replace. Warfarin has been resumed. Discussed with pharmacy, will resume aspirin and Plavix. May need tracheostomy by the end of the week if no improvement in mental status. 09/28:: Afebrile. On ventilator with FiO2 40%, PEEP 5. Warfarin has been resumed; INR 1.3 today. Some morning labs still pending; hemoglobin yesterday 7.3, will continue to monitor. Continue IV cefepime and supportive care. 09/29: Afebrile. Breathing on vent with FiO2 40%, PEEP 5. INR 1.2 today; pharmacy to help with warfarin dosing. White count within normal range, renal function stable. Spoke with pharmacy about cefepime 1 g every 8 hours dosing; this has been changed to cefepime 2 g every 8 hours. 09/30: Afebrile. Currently breathing on vent with FiO2 40%, PEEP 5. Continue antibiotics, cefepime 2 g every 8 hours. INR 1.4; continue warfarin dosing per pharmacy. Possible tracheostomy at some point. Critical care time 30 minutes reviewing charts, labs, examination, discussion with RN. 10/01: T-max 100.3 F. On ventilator with FiO2 40%, PEEP 5. Continue antibiotics, cefepime 2 g every 8 hours. INR 1.4, still subtherapeutic; continue warfarin dosing per pharmacy. Possible tracheostomy at some point. 10/02: No acute events overnight. Patient saturating 99% on vent settings of 10/450/40/5. Patient will likely need a trach and PEG at some point. We will hold warfarin and start 2 units PRBC transfusion. Patient's chart, labs, images were reviewed and discussed with RN 10/03: No acute events overnight. Patient sat 100% on minimal vent settings. No sedation at this point and patient is opening his eyes spontaneously. Not much response or spontaneous movements. Surgery has been consulted for tracheostomy. Patient will also likely need a PEG tube. 10/04: No acute events overnight. Patient saturating 90% on minimal vent settings. T-max 100.4 overnight. Plan for trach tomorrow with surgery. Patient's chart, labs, images were reviewed and discussed with RN 10/05: No acute events overnight. Patient saturating 99% on minimal vent settings. Plan for tracheostomy today. Consent is provided by authorization by 2 physicians due to patient having no close relatives or DPOA. Will resume heparin and warfarin bridging tomorrow after tracheostomy 10/07: No acute events overnight. Patient seen and examined bedside. On trach vent. Saturating 99%. Pending GI evaluation for possible PEG placement after discussing with cardiology whether to continue with Plavix. Possibly place PEG if patient is only on aspirin and stopping argatroban. 10/08: No acute events overnight. Patient continues to be on trach mechanical vent. Saturating 100%. Pending decision from GI whether to proceed with PEG placement depending on the type of anticoagulation patient will be on. 10/09: No overnight events. On trach with vent support 40% FiO2 PEEP of 5. Currently argatroban and propofol for minimal sedation. When sedation is weaned he has no meaningful movements but has pulled at his tracheostomy site. Unable to hold plavix due to recently placed stents. 10/10: Afebrile today. On trach with vent support 40% FiO2 PEEP of 5. Continue argatroban and changed to Aggrastat in anticipation of surgical consultation for potential laparoscopic PEG placement. INR 1.6. Hb greater than 9 no signi ficant neurologic recovery today. 10/11: Afebrile. On trach with vent support 40% FiO2 PEEP of 5. INR 1.8. Not making meaningful eye contact. Labs otherwise stable. 10/12: Afebrile. Trach with vent support 40% FiO2 PEEP five O2 saturations 92%. INR 1.8, mag 1.8, Hb 8.4. Not following commands. Tentative plans for surgical PEG next week. 10/13: Afebrile. Trach with vent support 40% FiO2 PEEP 5. Eyes open, not tracking or following commands. Holding Plavix. On argatroban. 10/14: Afebrile. Trach with vent support 40% FiO2 PEEP of 5. Will open eyes intermittently not necessarily to voice. Good urine output. Labs stable. 10/15: Afebrile overnight. Trach with vent AC 40% fio2 PEEP 5. Had a very large bowel movement. Still not tracking. Hb 9, INR 1.7, glucose 144. Tentative plan for PEG 10/18/2020 CC time 30 minutes 10/16/20: Patient seen and examined in the ICU. He was resting and still on vent via trach. Has NG running via Dobhoff, feeding at 40cc/hr. AC/10/450/40% plus 5 PEEP. Discussed with RN. Chart reviewed. 10/17/20: Patient was seen and examined in the ICU today. Still on vent via trach at AC/10/450/40 plus 5 PEEP. While examined, patient was at 100% O2 saturation. Has SCDs on for DVT prophylaxis. Stauffer catheter in place. On IV argatroban. R s ubclavian triple lumen in place. Dobhoff running at 40cc/hr. Discussed with RN. Chart reviewed. 10/18/20: Patient seen and examined in ICU. His eyes are open. On vent via trach with settings that were recently changed to spontaneous respirations with FiO2 of 40 and 5 PEEP. Trach is clean and dry. Currently, oxygen saturation is at 100%. Stauffer to bedside and rectal bag in place. Discussed with RN. Chart reviewed. 10/19/20: Patient was seen and examined in the ICU today. His eyes were open and he was resting. On BiPAP via trach AVAPS/10/450/40 plus 5 PEEP. Trach is clean and dry. Has SCDs for DVT prophylaxis. Patient has rectal bag, Stauffer to bedside, and NG tube in place. Discussed with RN. Chart reviewed. 10/20/20 No acute events overnight. Patient seen and examined bedside. Transferred from the ICU. Continues to be nonverbal and not following much commands. Opens eyes to voice. Currently on BiPAP via trach on AVAPS setting 10/450/40 PEEP of 5. Trach site is clear. No signs of infections. Patient's chart, labs, images were reviewed and discussed with RN 10/21/2020 No acute events overnight. Patient seen and examined bedside. Afebrile. Continues to be nonverbal but opens eyes to voice. Currently on BiPAP. Patient's chart, labs, images were reviewed and discussed with RN. 10/22/2020 No acute events overnight. Patient seen examined bedside. Continue with argatroban until warfarin goal INR of 4 and maintenance goal of 2-3. Please see release of information clerk note. Pending appointing a legal guardian. Patient's chart, labs, images were reviewed and discussed with RN 10/23/2020 laparoscopic gastrostomy tube placement (specifically 24 F) Oct discharge planning in place once court appointed DPOA available Acute anemia Acute metabolic, infectious encephalopathy Acute respiratory failure Healthcare associated pneumonia Acute hypoglycemia Hypokalemia Elevated troponins Severe protein malnutrition Morbid obesity AAA, 4 cm, infrarenal History of diabetes mellitus type 2 History of dyslipidemia history of hypertension Patient seen examined bedside. argatroban until warfarin goal INR of 4 and maintenance goal of 2-3. Pending appointing a legal guardian. Patient's chart, labs, images were reviewed and discussed with KARY Cardenas Enteric tube with metallic tip in the left upper quadrant likely in the stomach. 10/24/2020 doing well on trach shield on a 24-hour basis./ blood gases shows no worsening hypercapnia while on trach shield. No apneic breathing reported. laparoscopic gastrostomy tube placement (specifically 24 F) Oct discharge planning in place once court appointed DPOA available Acute anemia Acute metabolic, infectious encephalopathy Acute respiratory failure Healthcare associated pneumonia Acute hypoglycemia Hypokalemia Elevated troponins Severe protein malnutrition Morbid obesity AAA, 4 cm, infrarenal History of diabetes mellitus type 2 History of dyslipidemia history of hypertension Patient seen examined bedside. argatroban until warfarin goal INR of 4 and maintenance goal of 2-3. Pending appointing a legal guardian. Patient's chart, labs, images were reviewed and discussed with KARY Cardenas Enteric tube with metallic tip in the left upper quadrant likely in the stomach. Home on plavix and warfarin D/C INITIAL PLAN TO [facility] PEND[facility]/ discharge planning in place once court appointed DPOA available D/W RN 10/25/2020 doing well on trach shield on a 24-hour basis./ blood gases shows no worsening hypercapnia while on trach shield. No apneic breathing reported. laparoscopic gastrostomy tube placement (specifically 24 F) Oct discharge planning in place once court appointed DPOA available Acute anemia Acute metabolic, infectious encephalopathy Acute respiratory failure Healthcare associated pneumonia Acute hypoglycemia Hypokalemia Elevated troponins Severe protein malnutrition Morbid obesity AAA, 4 cm, infrarenal History of diabetes mellitus type 2 History of dyslipidemia history of hypertension Patient seen examined bedside. argatroban until warfarin goal INR of 4 and maintenance goal of 2-3. Pending appointing a legal guardian. Patient's chart, labs, images were reviewed and discussed with KARY Cardenas Enteric tube with metallic tip in the left upper quadrant likely in the stomach. Home on plavix and warfarin D/C INITIAL PLAN TO [facility] PENDING/ discharge planning in place once court appointed DPOA available D/W RN 10/26/2020 HGB 9.4 doing well on trach shield on a 24-hour basis./ blood gases shows no worsening hypercapnia while on trach shield. No apneic breathing reported. laparoscopic gastrostomy tube placement (specifically 24 F) Oct discharge planning in place once court appointed DPOA available Acute anemia Acute metabolic, infectious encephalopathy Acute respiratory failure Healthcare associated pneumonia Acute hypoglycemia Hypokalemia Elevated troponins Severe protein malnutrition Morbid obesity AAA, 4 cm, infrarenal History of diabetes mellitus type 2 History of dyslipidemia history of hypertension Patient seen examined bedside. argatroban until warfarin goal INR of 4 and maintenance goal of 2-3. Pending appointing a legal guardian. Patient's chart, labs, images were reviewed and discussed with KARY Cardeans Enteric tube with metallic tip in the left upper quadrant likely in the stomach. Home on plavix and warfarin D/C INITIAL PLAN TO [facility] PENDING/ discharge planning in place once court appointed DPOA available D/W RN 10/27/2020 HGB 9.4 doing well on trach shield on a 24-hour basis./ blood gases shows no worsening hypercapnia while on trach shield. No apneic breathing reported. laparoscopic gastrostomy tube placement (specifically 24 F) Oct discharge planning in place once court appointed DPOA available Acute anemia Acute metabolic, infectious encephalopathy Acute respiratory failure Healthcare associated pneumonia Acute hypoglycemia Hypokalemia Elevated troponins Severe protein malnutrition Morbid obesity AAA, 4 cm, infrarenal History of diabetes mellitus type 2 History of dyslipidemia history of hypertension Patient seen examined bedside. argatroban until warfarin goal INR of 4 and maintenance goal of 2-3. Pending appointing a legal guardian. Patient's chart, labs, images were reviewed and discussed with KARY Cardenas Enteric tube with metallic tip in the left upper quadrant likely in the stomach. Home on plavix and warfarin D/C INITIAL PLAN TO [facility] PENDING/ discharge planning in place once court appointed DPOA available D/W RN 10/28/2020 HGB 9.4 doing well on trach shield on a 24-hour basis./ blood gases shows no worsening hypercapnia while on trach shield. No apneic breathing reported. laparoscopic gastrostomy tube placement (specifically 24 F) Oct discharge planning in place once court appointed DPOA available Acute anemia Acute metabolic, infectious encephalopathy Acute respiratory failure Healthcare associated pneumonia Acute hypoglycemia Hypokalemia Elevated troponins Severe protein malnutrition Morbid obesity AAA, 4 cm, infrarenal History of diabetes mellitus type 2 History of dyslipidemia history of hypertension Patient seen examined bedside. argatroban until warfarin goal INR of 4 and maintenance goal of 2-3. Pending appointing a legal guardian. Patient's chart, labs, images were reviewed and discussed with KARY Cardenas Enteric tube with metallic tip in the left upper quadrant likely in the stomach. Home on plavix and warfarin D/C INITIAL PLAN TO [facility] PENDING/ discharge planning in place once court appointed DPOA available D/W KARY Vitals/I&O Vitals/I&O: Vital Signs Date Time Temp Pulse Resp B/P (MAP) Pulse Ox O2 Delivery O2 Flow Rate FiO2 11/10/20 10:06 99.0 79 18 106/59 (75) 100 BiPAP/CPAP 99.0 11/10/20 07:09 8.0 I & O 11/09/20 11/09/20 11/10/20 15:00 23:00 07:00 Intake Total 400 ml 1169 ml 590 ml Output Total 850 ml 325 ml Balance 400 ml 319 ml 265 ml Physical Exam Physical Exam: Neuro: actively posturing. Pulpils dialated but reactive to light and accomendation. Flaccidity in the lower extremity bilaterally. Equivocal Babinski. General: Other (actively posturing. No meaningful movements. ) Heart: Regular rate (SR), Other (distant heart sounds) Lungs: Other (Tracheostomy with trach shield. Deminished breath sounds.) Abdomen: Soft, Other (g tube in place) Extremities: No cyanosis, Other (2-3+ bilateral LE pitting edema) Skin: No rashes, No significant lesion Labs Labs: Laboratory Tests Test 11/09/20 11:52 11/09/20 17:26 11/10/20 00:01 11/10/20 05:30 Glucose (Fingerstick) 190 mg/dL (70-99) 148 mg/dL (70-99) 140 mg/dL (70-99) Prothrombin Time 29.2 SEC (11.7-14.0) Prothromb Time International Ratio 2.8 (0.8-1.1) Test 11/10/20 08:21 11/10/20 11:25 Glucose (Fingerstick) 144 mg/dL (70-99) 145 mg/dL (70-99) Assessment and Plan Assessmemt and Plan Problems Medical Problems: (1) NSTEMI (non-ST elevated myocardial infarction) Status: Acute (2) Obtundation Status: Acute (3) Respiratory arrest Status: Acute Comment Review of Relevant I have reviewed the following items denise (where applicable) has been applied. Medications: Current Medications Medications (Trade) Dose Ordered Sig/Dru Route PRN Reason Start Time Stop Time Status Last Admin Dose Admin Lansoprazole (Prevacid) 30 mg DAILY FT 11/10/20 09:00 11/10/20 09:41 Justifications for Admission Other Justification Hypoglycemia and altered mental status. JARRED SINGH MD Nov 10, 2020 11:47
[2020-11-10 14:39] VITALS: BP 112/65
[2020-11-10] MEDS: WARFARIN 3 MG TABLET. PO SCH (17:09)
[2020-11-10 19:25] VITALS: BP 108/70
[2020-11-10] MEDS: ATORVASTATIN CALCIUM 40 MG TABLET. PO SCH (20:36)
[2020-11-10 23:20] VITALS: BP 140/77
[2020-11-11 03:25] VITALS: BP 119/73
[2020-11-11] MEDS: INSULIN LISPRO 300 UNITS/3 ML VIAL. SQ SCH ×5 (06:00→23:52)
[2020-11-11 07:00] VITALS: BP 156/85
--- NOTE | 2020-11-11 07:49 | PDOC ---
[employer] PROGRESS NOTE Date of Service DOS: DATE: 11/11/20 TIME: 07:46 Chief Complaint Chief Complaint Acute anemia Acute metabolic, infectious encephalopathy Acute respiratory failure Healthcare associated pneumonia Acute hypoglycemia Hypokalemia Elevated troponins Severe protein malnutrition Morbid obesity AAA, 4 cm, infrarenal History of diabetes mellitus type 2 History of dyslipidemia history of hypertension History of recent STEMI History of CAD History of peripheral artery disease History of JEANNE History of CVA History of paroxysmal atrial fibrillation Ischemic cardiomyopathy History of Present Illness History of Present Illness Afebrile. No meaningful following of commands, opens eyes. Requires 8L trach shield O2 to maintain O2 saturations 90%. No residuals on PEG tube feeds. Discussed with niece Casandra bedside she is going to reach out to the rest of the family now the family has been located. 11/10: Afebrile. Continues to be encephalopathic no meaningful eye contact movements not following commands. Requiring 8 L trach shield O2 to maintain saturations 91%. No residuals on tube feeds 45 cc/h. INR 2.8. [facility] work estranged family has been found and has a niece who will be visiting sometime potentially later today or tomorrow 11/09: Afebrile. Still encephalopathic not making any meaningful eye contact or movements not following commands. Waiting for guardianship. 8 L trach shield O2. Tolerating tube feeds with no residuals 45 cc/h. INR 2.6 11/08: Afebrile. Opens eyes but no meaningful contact not following commands. Requiring 8 L trach shield O2 mask. 11/07: Not responsive to stimuli, not making eye contact. Afebrile. Seen on 8 L trach collar canula. Hb 9.1 Renal labs stable INR 3.1. 11/06: Patient not meaningfully responding well. On trach shield and BiPAP as needed on trach. PEG feeds with no significant residuals. 11/05: Patient is still unresponsive. Pupils reactive to light and accommodation. No meaningful movements. Actively posturing at bed side. Has peg feeding at 45cc/hr. Trach shield at 8L and BIPAP PRN at 35%. There is an open wound at the site of the peg insertion. Wound care, Dr. Cristobal is consulted. 11/04: Patient is still unresponsive. Pupils reactive to light and accommodation. Actively posturing at bedside. No meaningful movements. Has peg feeding at 45cc/hr. Trach shield at 8L and BIPAP PRN at 35%. 11/03: Patient seen and examined. Discussed with RN and social and political studies professor. Chart reviewed. Patient is still unresponsive. Actively decorticate posturing at bedside. Eyes rolled upward. No meaningful movements. Has peg feeding at 45cc/hr. The bleeding at the peg insertion site has stopped. 11/02: Patient seen and examined. Chart reviewd. Discussed with RN and social and political studies professor. Patient is still unresponsive. No meaningful movements. Actively decorticate posturing at bedside. Has peg feeding running at 45cc/hr. Some bleeding at the peg insertion site. 11/01: Patient seen and examined. Discussed with social and political studies professor and RN. Patient is still unresponsive. No meaningful movements. Peg feeding is running at 45cc/hr. Patient is actively posturing at bed side. Trach shield at 8L and BIPAP PRN at 35%. 10/31: Patient seen and examined. Chart reviewed. Discussed with social and political studies professor and RN. Patient still unresponsive. Patient actively posturing at bed side. Has peg running at 45cc/hr. Vestibulo-ocular reflex intact. 10/30: Patient seen and examined. Discussed with social and political studies professor and RN. Chart reviewed. Patient actively posturing at bed side. Has peg running at 45cc/hr. Mr Andrews is a 70-year-old male with a recent prolonged hospitalization for STEMI and respiratory failure for which she was treated with arterial thrombolysis for a right leg popliteal artery aneurysm and also had left heart cath with placement of a stent in the LAD and RCA comes in today after he was found [facility]ed at his [facility] facility. Apparently according to the nursing facility patient was in his usual state of health and he was conversational but then became altered. His blood glucose was found to be in the 30s. Glucose tabs and glucagon was given in route and his GCS reported at 6. Upon arrival patient's mental status did not improve and he was eventually intubated for airway protection. Of note EMS was bagging the patient through the nasal access. In the ED, patient was placed on a vent and pulmonology was consulted. Patient was also taken to the CT scanner for sanders scanning. Patient was started to wake up on the vent and sedation was ordered. 09/23: Patient examined at bedside. Intubated. Not on any sedation but unresponsive. Neurology consult in place. 09/24: Patient seen and examined at bedside. Remains intubated he is off sedation but still remains unresponsive. Planning for MRI brain in the morning. Further plan to be determined by MRI. 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 09/25: Afebrile, currently breathing on ventilator with FiO2 50%, PEEP 5. Had CODE BLUE in ICU this morning; received 2 rounds of CPR, epinephrine, and atropine with ROSC. MRI brain negative. Made DNR, and after discussion with Dr. Rubalcava he agrees. 09/26:: Afebrile. Still on vent, with FiO2 45%, PEEP 5. After discussion with Dr. Rubalcava yesterday, patient was made DNR. In the ED is likely a poor candidate for weaning trials may need trach in near future if no significant improvement. 09/27:: Afebrile. On vent with FiO2 40%, PEEP 5. Potassium 2.8 today, will replace. Warfarin has been resumed. Discussed with pharmacy, will resume aspirin and Plavix. May need tracheostomy by the end of the week if no improvement in mental status. 09/28:: Afebrile. On ventilator with FiO2 40%, PEEP 5. Warfarin has been re sumed; INR 1.3 today. Some morning labs still pending; hemoglobin yesterday 7.3, will continue to monitor. Continue IV cefepime and supportive care. 09/29: Afebrile. Breathing on vent with FiO2 40%, PEEP 5. INR 1.2 today; pharmacy to help with warfarin dosing. White count within normal range, renal function stable. Spoke with pharmacy about cefepime 1 g every 8 hours dosing; this has been changed to cefepime 2 g every 8 hours. 09/30: Afebrile. Currently breathing on vent with FiO2 40%, PEEP 5. Continue antibiotics, cefepime 2 g every 8 hours. INR 1.4; continue warfarin dosing per pharmacy. Possible tracheostomy at some point. Critical care time 30 minutes reviewing charts, labs, examination, discussion with RN. 10/01: T-max 100.3 F. On ventilator with FiO2 40%, PEEP 5. Continue antibiotics, cefepime 2 g every 8 hours. INR 1.4, still subtherapeutic; continue warfarin dosing per pharmacy. Possible tracheostomy at some point. 10/02: No acute events overnight. Patient saturating 99% on vent settings of 10/450/40/5. Patient will likely need a trach and PEG at some point. We will hold warfarin and start 2 units PRBC transfusion. Patient's chart, labs, images were reviewed and discussed with RN 10/03: No acute events overnight. Patient sat 100% on minimal vent settings. No sedation at this point and patient is opening his eyes spontaneously. Not much response or spontaneous movements. Surgery has been consulted for tracheostomy. Patient will also likely need a PEG tube. 10/04: No acute events overnight. Patient saturating 90% on minimal vent settings. T-max 100.4 overnight. Plan for trach tomorrow with surgery. Patient's chart, labs, images were reviewed and discussed with RN 10/05: No acute events overnight. Patient saturating 99% on minimal vent settings. Plan for tracheostomy today. Consent is provided by authorization by 2 physicians due to patient having no close relatives or DPOA. Will resume heparin and warfarin bridging tomorrow after tracheostomy 10/07: No acute events overnight. Patient seen and examined bedside. On trach vent. Saturating 99%. Pending GI evaluation for possible PEG placement after discussing with cardiology whether to continue with Plavix. Possibly place PEG if patient is only on aspirin and stopping argatroban. 10/08: No acute events overnight. Patient continues to be on trach mechanical vent. Saturating 100%. Pending decision from GI whether to proceed with PEG placement depending on the type of anticoagulation patient will be on. 10/09: No overnight events. On trach with vent support 40% FiO2 PEEP of 5. Currently argatroban and propofol for minimal sedation. When sedation is weaned he has no meaningful movements but has pulled at his tracheostomy site. Unable to hold plavix due to recently placed stents. 10/10: Afebrile today. On trach with vent support 40% FiO2 PEEP of 5. Continue argatroban and changed to Aggrastat in anticipation of surgical consultation for potential laparoscopic PEG placement. INR 1.6. Hb greater than 9 no significant neurologic recovery today. 10/11: Afebrile. On trach with vent support 40% FiO2 PEEP of 5. INR 1.8. Not making meaningful eye contact. Labs otherwise stable. 10/12: Afebrile. Trach with vent support 40% FiO2 PEEP five O2 saturations 92%. INR 1.8, mag 1.8, Hb 8.4. Not following commands. Tentative plans for surgical PEG next week. 10/13: Afebrile. Trach with vent support 40% FiO2 PEEP 5. Eyes open, not tracking or following commands. Holding Plavix. On argatroban. 10/14: Afebrile. Trach with vent support 40% FiO2 PEEP of 5. Will open eyes intermittently not necessarily to voice. Good urine output. Labs stable. 10/15: Afebrile overnight. Trach with vent AC 40% fio2 PEEP 5. Had a very large bowel movement. Still not tracking. Hb 9, INR 1.7, glucose 144. Tentative plan for PEG 10/18/2020 CC time 30 minutes 10/16/20: Patient seen and examined in the ICU. He was resting and still on vent via trach. Has NG running via Dobhoff, feeding at 40cc/hr. AC/10/450/40% plus 5 PEEP. Discussed with RN. Chart reviewed. 10/17/20: Patient was seen and examined in the ICU today. Still on vent via trach at AC/10/450/40 plus 5 PEEP. While examined, patient was at 100% O2 saturation. Has SCDs on for DVT prophylaxis. Stauffer catheter in place. On IV argatroban. R subclavian triple lumen in place. Dobhoff running at 40cc/hr. Discussed with RN. Chart reviewed. 10/18/20: Patient seen and examined in ICU. His eyes are open. On vent via trach with settings that were recently changed to spontaneous respirations with FiO2 of 40 and 5 PEEP. Trach is clean and dry. Currently, oxygen saturation is at 100%. Stauffer to bedside and rectal bag in place. Discussed with RN. Chart rev iewed. 10/19/20: Patient was seen and examined in the ICU today. His eyes were open and he was resting. On BiPAP via trach AVAPS/10/450/40 plus 5 PEEP. Trach is clean and dry. Has SCDs for DVT prophylaxis. Patient has rectal bag, Stauffer to bedside, and NG tube in place. Discussed with RN. Chart reviewed. 10/20/20 No acute events overnight. Patient seen and examined bedside. Transferred from the ICU. Continues to be nonverbal and not following much commands. Opens eyes to voice. Currently on BiPAP via trach on AVAPS setting 10/450/40 PEEP of 5. Trach site is clear. No signs of infections. Patient's chart, labs, images were reviewed and discussed with RN 10/21/2020 No acute events overnight. Patient seen and examined bedside. Afebrile. Con tinues to be nonverbal but opens eyes to voice. Currently on BiPAP. Patient's chart, labs, images were reviewed and discussed with RN. 10/22/2020 No acute events overnight. Patient seen examined bedside. Continue with argatroban until warfarin goal INR of 4 and maintenance goal of 2-3. Please see personnel worker note. Pending appointing a legal guardian. Patient's chart, labs, images were reviewed and discussed with RN 10/23/2020 laparoscopic gastrostomy tube placement (specifically 24 F) Oct discharge planning in place once court appointed DPOA available Acute anemia Acute metabolic, infectious encephalopathy Acute respiratory failure Healthcare associated pneumonia Acute hypoglycemia Hypokalemia Elevated troponins Severe protein malnutrition Morbid obesity AAA, 4 cm, infrarenal History of diabetes mellitus type 2 History of dyslipidemia history of hypertension Patient seen examined bedside. argatroban until warfarin goal INR of 4 and maintenance goal of 2-3. Pending appointing a legal guardian. Patient's chart, labs, images were reviewed and discussed with KARY Cardenas Enteric tube with metallic tip in the left upper quadrant likely in the stomach. 10/24/2020 doing well on trach shield on a 24-hour basis./ blood gases shows no worsening hypercapnia while on trach shield. No apneic breathing reported. laparoscopic gastrostomy tube placement (specifically 24 F) Oct discharge planning in place once court appointed DPOA available Acute anemia Acute metabolic, infectious encephalopathy Acute respiratory failure Healthcare associated pneumonia Acute hypoglycemia Hypokalemia Elevated troponins Severe protein malnutrition Morbid obesity AAA, 4 cm, infrarenal History of diabetes mellitus type 2 History of dyslipidemia history of hypertension Patient seen examined bedside. argatroban until warfarin goal INR of 4 and maintenance goal of 2-3. Pending appointing a legal guardian. Patient's chart, labs, images were reviewed and discussed with KARY Cardenas Enteric tube with metallic tip in the left upper quadrant likely in the stomach. Home on plavix and warfarin D/C INITIAL PLAN TO [facility] PENDING/ discharge planning in place once court appointed DPOA available D/W RN 10/25/2020 doing well on trach shield on a 24-hour basis./ blood gases shows no worsening hypercapnia while on trach shield. No apneic breathing reported. laparoscopic gastrostomy tube placement (specifically 24 F) Oct discharge planning in place once court appointed DPOA available Acute anemia Acute metabolic, infectious encephalopathy Acute respiratory failure Healthcare associated pneumonia Acute hypoglycemia Hypokalemia Elevated troponins Severe protein malnutrition Morbid obesity AAA, 4 cm, infrarenal History of diabetes mellitus type 2 History of dyslipidemia history of hypertension Patient seen examined bedside. argatroban until warfarin goal INR of 4 and maintenance goal of 2-3. Pending appointing a legal guardian. Patient's chart, labs, images were reviewed and discussed with KARY Cardenas Enteric tube with metallic tip in the left upper quadrant likely in the stomach. Home on plavix and warfarin D/C INITIAL PLAN TO [facility] PENDING/ discharge planning in place once court appointed DPOA available D/W RN 10/26/2020 HGB 9.4 doing well on trach shield on a 24-hour basis./ blood gases shows no worsening hypercapnia while on trach shield. No apneic breathing reported. laparoscopic gastrostomy tube placement (specifically 24 F) Oct discharge planning in place once court appointed DPOA available Acute anemia Acute metabolic, infectious encephalopathy Acute respiratory failure Healthcare associated pneumonia Acute hypoglycemia Hypokalemia Elevated troponins Severe protein malnutrition Morbid obesity AAA, 4 cm, infrarenal History of diabetes mellitus type 2 History of dyslipidemia history of hypertension Patient seen examined bedside. argatroban until warfarin goal INR of 4 and maintenance goal of 2-3. Pending appointing a legal guardian. Patient's chart, labs, images were reviewed and discussed with KARY Cardenas Enteric tube with metallic tip in the left upper quadrant likely in the stomach. Home on plavix and warfarin D/C INITIAL PLAN TO [facility] PENDING/ discharge planning in place once court appointed DPOA available D/W RN 10/27/2020 HGB 9.4 doing well on trach shield on a 24-hour basis./ blood gases shows no worsening hypercapnia while on trach shield. No apneic breathing reported. laparoscopic gastrostomy tube placement (specifically 24 F) Oct discharge planning in place once court appointed DPOA available Acute anemia Acute metabolic, infectious encephalopathy Acute respiratory failure Healthcare associated pneumonia Acute hypoglycemia Hypokalemia Elevated troponins Severe protein malnutrition Morbid obesity AAA, 4 cm, infrarenal History of diabetes mellitus type 2 History of dyslipidemia history of hypertension Patient seen examined bedside. argatroban until warfarin goal INR of 4 and maintenance goal of 2-3. Pending appointing a legal guardian. Patient's chart, labs, images were reviewed and discussed with KARY Cardenas Enteric tube with metallic tip in the left upper quadrant likely in the stomach. Home on plavix and warfarin D/C INITIAL PLAN TO [facility] PENDING/ discharge planning in place once court appointed DPOA available D/W RN 10/28/2020 HGB 9.4 doing well on trach shield on a 24-hour basis./ blood gases shows no worsening hypercapnia while on trach shield. No apneic breathing reported. laparoscopic gastrostomy tube placement (specifically 24 F) Oct discharge planning in place once court appointed DPOA available Acute anemia Acute metabolic, infectious encephalopathy Acute respiratory failure Healthcare associated pneumonia Acute hypoglycemia Hypokalemia Elevated troponins Severe protein malnutrition Morbid obesity AAA, 4 cm, infrarenal History of diabetes mellitus type 2 History of dyslipidemia history of hypertension Patient seen examined bedside. argatroban until warfarin goal INR of 4 and maintenance goal of 2-3. Pending appointing a legal guardian. Patient's chart, labs, images were reviewed and discussed with KARY Cardenas Enteric tube with metallic tip in the left upper quadrant likely in the stomach. Home on plavix and warfarin D/C INITIAL PLAN TO [facility] PENDING/ discharge planning in place once court appointed DPOA available D/W RN Vitals/I&O Vitals/I&O: Vital Signs Date Time Temp Pulse Resp B/P (MAP) Pulse Ox O2 Delivery O2 Flow Rate FiO2 11/11/20 06:10 100 Ventilator 11/11/20 04:00 8.0 11/11/20 03:25 97.1 89 21 119/73 (88) 97.1 I & O 11/10/20 11/10/20 11/11/20 15:00 23:00 07:00 Intake Total 450 ml 450 ml 1463 ml Output Total 800 ml 550 ml Balance 450 ml -350 ml 913 ml Physical Exam Physical Exam: Neuro: actively posturing. Pulpils dialated but reactive to light and accomendation. Flaccidity in the lower extremity bilaterally. Equivocal Babinski. General: Other (actively posturing. No meaningful movements. ) Heart: Regular rate (SR), Other (distant heart sounds) Lungs: Other (Tracheostomy with trach shield. Deminished breath sounds.) Abdomen: Soft, Other (g tube in place) Extremities: No cyanosis, Other (2-3+ bilateral LE pitting edema) Skin: No rashes, No significant lesion Labs Labs: Laboratory Tests Test 11/10/20 08:21 11/10/20 11:25 11/10/20 17:11 11/11/20 06:34 Glucose (Fingerstick) 144 mg/dL (70-99) 145 mg/dL (70-99) 160 mg/dL (70-99) 157 mg/dL (70-99) Assessment and Plan Assessmemt and Plan Problems Medical Problems: (1) NSTEMI (non-ST elevated myocardial infarction) Status: Acute (2) Obtundation Status: Acute (3) Respiratory arrest Status: Acute Comment Review of Relevant I have reviewed the following items denise (where applicable) has been applied. Medications: Current Medications Medications (Trade) Dose Ordered Sig/Dru Route PRN Reason Start Time Stop Time Status Last Admin Dose Admin Lansoprazole (Prevacid) 30 mg DAILY FT 11/10/20 09:00 11/10/20 09:41 Warfarin Sodium (Coumadin) 3 mg DAILY16 PO 11/10/20 16:00 11/10/20 17:09 Justifications for Admission Other Justification Hypoglycemia and altered mental status. JARRED SINGH MD Nov 11, 2020 07:49
[2020-11-11] MEDS: FUROSEMIDE 40 MG/4 ML VIAL. IVP SCH (09:34)
[2020-11-11] MEDS: DOCUSATE 100 MG/10 ML SOLUTION. PO SCH (09:34)
[2020-11-11] MEDS: POTASSIUM BICARB 20 MEQ EFFERVESCENT TABLET. PEG SCH (09:35)
[2020-11-11] MEDS: AMIODARONE HCL 200 MG TABLET. PO SCH (09:35)
[2020-11-11] MEDS: CLOPIDOGREL BISULFATE 75 MG TABLET PO SCH (09:35)
[2020-11-11] MEDS: ASPIRIN CHEWABLE 81 MG TABLET. PO SCH (09:35)
[2020-11-11] MEDS: LANSOPRAZOLE 30 MG TAB.RAP.DR FT SCH (09:35)
[2020-11-11] MEDS: METOPROLOL TART IMMED RELEASE 25 MG TABLET. PO SCH ×2 (09:36→21:12)
[2020-11-11 11:00] VITALS: BP 116/76
[2020-11-11 14:36] VITALS: BP 114/62
[2020-11-11] MEDS: WARFARIN 3 MG TABLET. PO SCH (17:42)
[2020-11-11 19:10] VITALS: BP 125/72
[2020-11-11] MEDS: ATORVASTATIN CALCIUM 40 MG TABLET. PO SCH (21:12)
[2020-11-11 22:26] VITALS: BP 138/71
[2020-11-12 02:35] VITALS: BP 182/85
[2020-11-12] MEDS: INSULIN LISPRO 300 UNITS/3 ML VIAL. SQ SCH ×3 (06:00→18:00)
[2020-11-12 07:00] VITALS: BP 120/69
[2020-11-12 07:03] LABS: BASO # 0.1 x10^3/uL (0.0-0.2); BASO % 1 % (0-3); EOS # 0.5 x10^3/uL (0.0-0.7); EOS % 7 % (0-3); HEMATOCRIT 25.9 % (39.0-53.0); HEMOGLOBIN 8.8 g/dL (13.0-17.5); LYMPH # 2.3 x10^3/uL (1.0-4.8); LYMPH % 34 % (24-48); MEAN CORPUSCULAR HEMOGLOBIN 32 pg (25-35); MEAN CORPUSCULAR HGB CONC 34 g/dL (31-37); MEAN CORPUSCULAR VOLUME 94 fL (79-100); MONO # 0.6 x10^3/uL (0.0-1.1); MONO % 8 % (0-9); NEUT # 3.5 x10^3/uL (1.8-7.7); NEUT % 50 % (31-73); PLATELET COUNT 310 x10^3/uL (140-400); RED BLOOD COUNT 2.76 x10^6/uL (4.30-5.70); WHITE BLOOD COUNT 6.9 x10^3/uL (4.0-11.0)
[2020-11-12 07:26] LABS: ALBUMIN 2.5 g/dL (3.4-5.0); ALBUMIN/GLOBULIN RATIO 0.6 (1.0-1.7); CALCIUM 9.2 mg/dL (8.5-10.1); GFR 73.5; POTASSIUM 3.6 mmol/L (3.5-5.1); TOTAL BILIRUBIN 0.6 mg/dL (0.2-1.0)
[2020-11-12 07:33] LABS: PROTHROMBIN TIME PATIENT 29.3 SEC (11.7-14.0)
[2020-11-12] MEDS: ASPIRIN CHEWABLE 81 MG TABLET. PO SCH (08:53)
[2020-11-12] MEDS: POTASSIUM BICARB 20 MEQ EFFERVESCENT TABLET. PEG SCH (08:54)
[2020-11-12] MEDS: CLOPIDOGREL BISULFATE 75 MG TABLET PO SCH (08:54)
[2020-11-12] MEDS: AMIODARONE HCL 200 MG TABLET. PO SCH (08:54)
[2020-11-12] MEDS: LANSOPRAZOLE 30 MG TAB.RAP.DR FT SCH (08:54)
[2020-11-12] MEDS: METOPROLOL TART IMMED RELEASE 25 MG TABLET. PO SCH ×2 (08:54→20:38)
[2020-11-12] MEDS: FUROSEMIDE 40 MG/4 ML VIAL. IVP SCH (08:54)
[2020-11-12] MEDS: DOCUSATE 100 MG/10 ML SOLUTION. PO SCH (08:55)
--- NOTE | 2020-11-12 10:06 | PDOC ---
[employer] PROGRESS NOTE Date of Service DOS: DATE: 11/12/20 TIME: 10:05 Chief Complaint Chief Complaint Acute anemia Acute metabolic, infectious encephalopathy Acute respiratory failure Healthcare associated pneumonia Acute hypoglycemia Hypokalemia Elevated troponins Severe protein malnutrition Morbid obesity AAA, 4 cm, infrarenal History of diabetes mellitus type 2 History of dyslipidemia history of hypertension History of recent STEMI History of CAD History of peripheral artery disease History of JEANNE History of CVA History of paroxysmal atrial fibrillation Ischemic cardiomyopathy History of Present Illness History of Present Illness Afebrile. BP a little up today. Continues to remain encephalopathic off sedation requiring 8 L trach shield O2 with O2 saturations 91%. Tolerating PEG feeds with free water boluses. INR 2.8. Discussed with ninelda Guajardo she is reaching out to the rest of the family. 11/11: Afebrile. No meaningful following of commands, opens eyes. Requires 8L trach shield O2 to maintain O2 saturations 90%. No residuals on PEG tube feeds. Discussed with anabel Guajardo bedside she is going to reach out to the rest of the family now the family has been located. 11/10: Afebrile. Continues to be encephalopathic no meaningful eye contact movements not following commands. Requiring 8 L trach shield O2 to maintain saturations 91%. No residuals on tube feeds 45 cc/h. INR 2.8. Throughout heroic efforts by social work estranged family has been found and has a niece who will be visiting sometime potentially later today or tomorrow 11/09: Afebrile. Still encephalopathic not making any meaningful eye contact or movements not following commands. Waiting for guardianship. 8 L trach shield O2. Tolerating tube feeds with no residuals 45 cc/h. INR 2.6 11/08: Afebrile. Opens eyes but no meaningful contact not following commands. Requiring 8 L trach shield O2 mask. 11/07: Not responsive to stimuli, not making eye contact. Afebrile. Seen on 8 L trach collar canula. Hb 9.1 Renal labs stable INR 3.1. 11/06: Patient not meaningfully responding well. On trach shield and BiPAP as needed on trach. PEG feeds with no significant residuals. 11/05: Patient is still unresponsive. Pupils reactive to light and accommodation. No meaningful movements. Actively posturing at bed side. Has peg feeding at 45cc/hr. Trach shield at 8L and BIPAP PRN at 35%. There is an open wound at the site of the peg insertion. Wound care, Dr. Cristobal is consulted. 11/04: Patient is still unresponsive. Pupils reactive to light and accommodation. Actively posturing at bedside. No meaningful movements. Has peg feeding at 45cc/hr. Trach shield at 8L and BIPAP PRN at 35%. 11/03: Patient seen and examined. Discussed with RN and social worker assistant. Chart reviewed. Patient is still unresponsive. Actively decorticate posturing at bedside. Eyes rolled upward. No meaningful movements. Has peg feeding at 45cc/hr. The bleeding at the peg insertion site has stopped. 11/02: Patient seen and examined. Chart reviewd. Discussed with RN and social worker assistant. Patient is still unresponsive. No meaningful movements. Actively decorticate posturing at bedside. Has peg feeding running at 45cc/hr. Some bleeding at the peg insertion site. 11/01: Patient seen and examined. Discussed with social worker assistant and RN. Patient is still unresponsive. No meaningful movements. Peg feeding is running at 45cc/hr. Patient is actively posturing at bed side. Trach shield at 8L and BIPAP PRN at 35%. 10/31: Patient seen and examined. Chart reviewed. Discussed with social worker assistant and RN. Patient still unresponsive. Patient actively posturing at bed side. Has peg running at 45cc/hr. Vestibulo-ocular reflex intact. 10/30: Patient seen and examined. Discussed with social worker assistant and RN. Chart reviewed. Patient actively posturing at bed side. Has peg running at 45cc/hr. Mr Andrews is a 70-year-old male with a recent prolonged hospitalization for STEMI and respiratory failure for which she was treated with arterial thrombolysis for a right leg popliteal artery aneurysm and also had left heart cath with placement of a stent in the LAD and RCA comes in today after he was found obtunded at his alf facility. Apparently according to the nursing facility patient was in his usual state of health and he was conversational but then became altered. His blood glucose was found to be in the 30s. Glucose tabs and glucagon was given in route and his GCS reported at 6. Upon arrival patient's mental status did not improve and he was eventually intubated for airway protection. Of note EMS was bagging the patient through the nasal access. In the ED, patient was placed on a vent and pulmonology was consulted. Patient was also taken to the CT scanner for sanders scanning. Patient was started to wake up on the vent and sedation was ordered. 09/23: Patient examined at bedside. Intubated. Not on any sedation but unresponsive. Neurology consult in place. 09/24: Patient seen and examined at bedside. Remains intubated he is off sedation but still remains unresponsive. Planning for MRI brain in the morning. Further plan to be determined by MRI. 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 09/25: Afebrile, currently breathing on ventilator with FiO2 50%, PEEP 5. Had CODE BLUE in ICU this morning; received 2 rounds of CPR, epinephrine, and atropine with ROSC. MRI brain negative. Made DNR, and after discussion with Dr. Rubalcava he agrees. 09/26:: Afebrile. Still on vent, with FiO2 45%, PEEP 5. After discussion with Dr. Rubalcava yesterday, patient was made DNR. In the ED is likely a poor candidate for weaning trials may need trach in near future if no significant improvement. 09/27:: Afebrile. On vent with FiO2 40%, PEEP 5. Potassium 2.8 today, will replace. Warfarin has been resumed. Discussed with pharmacy, will resume aspirin and Plavix. May need tracheostomy by the end of the week if no improvement in mental status. 09/28:: Afebrile. On ventilator with FiO2 40%, PEEP 5. Warfarin has been resumed; INR 1.3 today. Some morning labs still pending; hemoglobin yesterday 7.3, will continue to monitor. Continue IV cefepime and supportive care. 09/29: Afebrile. Breathing on vent with FiO2 40%, PEEP 5. INR 1.2 today; pharmacy to help with warfarin dosing. White count within normal range, renal function stable. Spoke with pharmacy about cefepime 1 g every 8 hours dosing; this has been changed to cefepime 2 g every 8 hours. 09/30: Afebrile. Currently breathing on vent with FiO2 40%, PEEP 5. Continue antibiotics, cefepime 2 g every 8 hours. INR 1.4; continue warfarin dosing per pharmacy. Possible tracheostomy at some point. Critical care time 30 minutes reviewing charts, labs, examination, discussion with RN. 10/01: T-max 100.3 F. On ventilator with FiO2 40%, PEEP 5. Continue antibiotics, cefepime 2 g every 8 hours. INR 1.4, still subtherapeutic; continue warfarin dosing per pharmacy. Possible tracheostomy at some point. 10/02: No acute events overnight. Patient saturating 99% on vent settings of 10/450/40/5. Patient will likely need a trach and PEG at some point. We will hold warfarin and start 2 units PRBC transfusion. Patient's chart, labs, images were reviewed and discussed with RN 10/03: No acute events overnight. Patient sat 100% on minimal vent settings. No sedation at this point and patient is opening his eyes spontaneously. Not much response or spontaneous movements. Surgery has been consulted for tracheostomy. Patient will also likely need a PEG tube. 10/04: No acute events overnight. Patient saturating 90% on minimal vent settings. T-max 100.4 overnight. Plan for trach tomorrow with surgery. Patient's chart, labs, images were reviewed and discussed with RN 10/05: No acute events overnight. Patient saturating 99% on minimal vent settings. Plan for tracheostomy today. Consent is provided by authorization by 2 physicians due to patient having no close relatives or DPOA. Will resume heparin and warfarin bridging tomorrow after tracheostomy 10/07: No acute events overnight. Patient seen and examined bedside. On trach vent. Saturating 99%. Pending GI evaluation for possible PEG placement after discussing with cardiology whether to continue with Plavix. Possibly place PEG if patient is only on aspirin and stopping argatroban. 10/08: No acute events overnight. Patient continues to be on trach mechanical vent. Saturating 100%. Pending decision from GI whether to proceed with PEG placement depending on the type of anticoagulation patient will be on. 10/09: No overnight events. On trach with vent support 40% FiO2 PEEP of 5. Currently argatroban and propofol for minimal sedation. When sedation is weaned he has no meaningful movements but has pulled at his tracheostomy site. Unable to hold plavix due to recently placed stents. 10/10: Afebrile today. On trach with vent support 40% FiO2 PEEP of 5. Continue argatroban and changed to Aggrastat in anticipation of surgical consultation for potential laparoscopic PEG placement. INR 1.6. Hb greater than 9 no significant neurologic recovery today. 10/11: Afebrile. On trach with vent support 40% FiO2 PEEP of 5. INR 1.8. Not making meaningful eye contact. Labs otherwise stable. 10/12: Afebrile. Trach with vent support 40% FiO2 PEEP five O2 saturations 92%. INR 1.8, mag 1.8, Hb 8.4. Not following commands. Tentative plans for surgical PEG next week. 10/13: Afebrile. Trach with vent support 40% FiO2 PEEP 5. Eyes open, not tracking or following commands. Holding Plavix. On argatroban. 10/14: Afebrile. Trach with vent support 40% FiO2 PEEP of 5. Will open eyes intermittently not necessarily to voice. Good urine output. Labs stable. 10/15: Afebrile overnight. Trach with vent AC 40% fio2 PEEP 5. Had a very large bowel movement. Still not tracking. Hb 9, INR 1.7, glucose 144. Tentative plan for PEG 10/18/2020 CC time 30 minutes 10/16/20: Patient seen and examined in the ICU. He was resting and still on vent via trach. Has NG running via Dobhoff, feeding at 40cc/hr. AC/10/450/40% plus 5 PEEP. Discussed with RN. Chart reviewed. 10/17/20: Patient was seen and examined in the ICU today. Still on vent via trach at AC/10/450/40 plus 5 PEEP. While examined, patient was at 100% O2 saturation. Has SCDs on for DVT prophylaxis. Stauffer catheter in place. On IV argatroban. R subclavian triple lumen in place. Dobhoff running at 40cc/hr. Discussed with RN. Chart reviewed. 10/18/20: Patient seen and examined in ICU. His eyes are open. On vent via trach with settings that were recently changed to spontaneous respirations with FiO2 of 40 and 5 PEEP. Trach is clean and dry. Currently, oxygen saturation is at 100%. Stauffer to bedside and rectal bag in place. Discussed with RN. Chart reviewed. 10/19/20: Patient was seen and examined in the ICU today. His eyes were open and he was resting. On BiPAP via trach AVAPS/10/450/40 plus 5 PEEP. Trach is clean and dry. Has SCDs for DVT prophylaxis. Patient has rectal bag, Stauffer to bedside, and NG tube in place. Discussed with RN. Chart reviewed. 10/20/20 No acute events overnight. Patient seen and examined bedside. Transferred from the ICU. Continues to be nonverbal and not following much commands. Opens eyes to voice. Currently on BiPAP via trach on AVAPS setting 10/450/40 PEEP of 5. Trach site is clear. No signs of infections. Patient's chart, labs, images were reviewed and discussed with RN 10/21/2020 No acute events overnight. Patient seen and examined bedside. Afebrile. Continues to be nonverbal but opens eyes to voice. Currently on BiPAP. Patient's chart, labs, images were reviewed and discussed with RN. 10/22/2020 No acute events overnight. Patient seen examined bedside. Continue with argatroban until warfarin goal INR of 4 and maintenance goal of 2-3. Please see millinery worker note. Pending appointing a legal guardian. Patient's chart, labs, images were reviewed and discussed with RN 10/23/2020 laparoscopic gastrostomy tube placement (specifically 24 F) Oct discharge planning in place once court appointed DPOA available Acute anemia Acute metabolic, infectious encephalopathy Acute respiratory failure Healthcare associated pneumonia Acute hypoglycemia Hypokalemia Elevated troponins Severe protein malnutrition Morbid obesity AAA, 4 cm, infrarenal History of diabetes mellitus type 2 History of dyslipidemia history of hypertension Patient seen examined bedside. argatroban until warfarin goal INR of 4 and maintenance goal of 2-3. Pending appointing a legal guardian. Patient's chart, labs, images were reviewed and discussed with RN Ronald Enteric tube with metallic tip in the left upper quadrant likely in the stomach. 10/24/2020 doing well on trach shield on a 24-hour basis./ blood gases shows no worsening hypercapnia while on trach shield. No apneic breathing reported. laparoscopic gastrostomy tube placement (specifically 24 F) Oct discharge planning in place once court appointed DPOA available Acute anemia Acute metabolic, infectious encephalopathy Acute respiratory failure Healthcare associated pneumonia Acute hypoglycemia Hypokalemia Elevated troponins Severe protein malnutrition Morbid obesity AAA, 4 cm, infrarenal History of diabetes mellitus type 2 History of dyslipidemia history of hypertension Patient seen examined bedside. argatroban until warfarin goal INR of 4 and maintenance goal of 2-3. Pending appointing a legal guardian. Patient's chart, labs, images were reviewed and discussed with KARY Cardenas Enteric tube with metallic tip in the left upper quadrant likely in the stomach. Home on plavix and warfarin D/C INITIAL PLAN TO [facility]END[facility]/ discharge planning in place once court appointed DPOA available D/W RN 10/25/2020 doing well on trach shield on a 24-hour basis./ blood gases shows no worsening hypercapnia while on trach shield. No apneic breathing reported. laparoscopic gastrostomy tube placement (specifically 24 F) Oct discharge planning in place once court appointed DPOA available Acute anemia Acute metabolic, infectious encephalopathy Acute respiratory failure Healthcare associated pneumonia Acute hypoglycemia Hypokalemia Elevated troponins Severe protein malnutrition Morbid obesity AAA, 4 cm, infrarenal History of diabetes mellitus type 2 History of dyslipidemia history of hypertension Patient seen examined bedside. argatroban until warfarin goal INR of 4 and maintenance goal of 2-3. Pending appointing a legal guardian. Patient's chart, labs, images were reviewed and discussed with KARY Cardenas Enteric tube with metallic tip in the left upper quadrant likely in the stomach. Home on plavix and warfarin D/C INITIAL PLAN TO [facility]/ discharge planning in place once court appointed DPOA available D/W RN 10/26/2020 HGB 9.4 doing well on trach shield on a 24-hour basis./ blood gases shows no worsening hypercapnia while on trach shield. No apneic breathing reported. laparoscopic gastrostomy tube placement (specifically 24 F) Oct discharge planning in place once court appointed DPOA available Acute anemia Acute metabolic, infectious encephalopathy Acute respiratory failure Healthcare associated pneumonia Acute hypoglycemia Hypokalemia Elevated troponins Severe protein malnutrition Morbid obesity AAA, 4 cm, infrarenal History of diabetes mellitus type 2 History of dyslipidemia history of hypertension Patient seen examined bedside. argatroban until warfarin goal INR of 4 and maintenance goal of 2-3. Pending appointing a legal guardian. Patient's chart, labs, images were reviewed and discussed with KARY Cardenas Enteric tube with metallic tip in the left upper quadrant likely in the stomach. Home on plavix and warfarin D/C INITIAL PLAN TO [facility]/ discharge planning in place once court appointed DPOA available D/W RN 10/27/2020 HGB 9.4 doing well on trach shield on a 24-hour basis./ blood gases shows no worsening hypercapnia while on trach shield. No apneic breathing reported. laparoscopic gastrostomy tube placement (specifically 24 F) Oct discharge planning in place once court appointed DPOA available Acute anemia Acute metabolic, infectious encephalopathy Acute respiratory failure Healthcare associated pneumonia Acute hypoglycemia Hypokalemia Elevated troponins Severe protein malnutrition Morbid obesity AAA, 4 cm, infrarenal History of diabetes mellitus type 2 History of dyslipidemia history of hypertension Patient seen examined bedside. argatroban until warfarin goal INR of 4 and maintenance goal of 2-3. Pending appointing a legal guardian. Patient's chart, labs, images were reviewed and discussed with KARY Cardenas Enteric tube with metallic tip in the left upper quadrant likely in the stomach. Home on plavix and warfarin D/C INITIAL PLAN TO [facility]/ discharge planning in place once court appointed DPOA available D/W RN 10/28/2020 HGB 9.4 doing well on trach shield on a 24-hour basis./ blood gases shows no worsening hypercapnia while on trach shield. No apneic breathing reported. laparoscopic gastrostomy tube placement (specifically 24 F) Oct discharge planning in place once court appointed DPOA available Acute anemia Acute metabolic, infectious encephalopathy Acute respiratory failure Healthcare associated pneumonia Acute hypoglycemia Hypokalemia Elevated troponins Severe protein malnutrition Morbid obesity AAA, 4 cm, infrarenal History of diabetes mellitus type 2 History of dyslipidemia history of hypertension Patient seen examined bedside. argatroban until warfarin goal INR of 4 and maintenance goal of 2-3. Pending appointing a legal guardian. Patient's chart, labs, images were reviewed and discussed with KARY Cardenas Enteric tube with metallic tip in the left upper quadrant likely in the stomach. Home on plavix and warfarin D/C INITIAL PLAN TO [facility]/ discharge planning in place once court appointed DPOA available D/W RN Vitals/I&O Vitals/I&O: Vital Signs Date Time Temp Pulse Resp B/P (MAP) Pulse Ox O2 Delivery O2 Flow Rate FiO2 11/12/20 08:54 90 182/85 11/12/20 08:11 100 Ventilator 11/12/20 04:14 8.0 11/12/20 02:35 98.7 18 98.7 I & O 11/11/20 11/11/20 11/12/20 15:00 23:00 07:00 Intake Total 225 ml 840 ml Output Total 1000 ml 300 ml Balance 225 ml -160 ml -300 ml Physical Exam Physical Exam: Neuro: actively posturing. Pulpils dialated but reactive to light and accomendat ion. Flaccidity in the lower extremity bilaterally. Equivocal Babinski. General: Other (actively posturing. No meaningful movements. ) Heart: Regular rate (SR), Other (distant heart sounds) Lungs: Other (Tracheostomy with trach shield. Deminished breath sounds.) Abdomen: Soft, Other (g tube in place) Extremities: No cyanosis, Other (2-3+ bilateral LE pitting edema) Skin: No rashes, No significant lesion Labs Labs: Laboratory Tests Test 11/11/20 12:19 11/11/20 17:06 11/11/20 23:28 11/12/20 06:20 Glucose (Fingerstick) 160 mg/dL (70-99) 149 mg/dL (70-99) 131 mg/dL (70-99) White Blood Count 6.9 x10^3/uL (4.0-11.0) Red Blood Count 2.76 x10^6/uL (4.30-5.70) Hemoglobin 8.8 g/dL (13.0-17.5) Hematocrit 25.9 % (39.0-53.0) Mean Corpuscular Volume 94 fL (79-100) Mean Corpuscular Hemoglobin 32 pg (25-35) Mean Corpuscular Hemoglobin Concent 34 g/dL (31-37) Red Cell Distribution Width 16.0 % (11.5-14.5) Platelet Count 310 x10^3/uL (140-400) Neutrophils (%) (Auto) 50 % (31-73) Lymphocytes (%) (Auto) 34 % (24-48) Monocytes (%) (Auto) 8 % (0-9) Eosinophils (%) (Auto) 7 % (0-3) Basophils (%) (Auto) 1 % (0-3) Neutrophils # (Auto) 3.5 x10^3/uL (1.8-7.7) Lymphocytes # (Auto) 2.3 x10^3/uL (1.0-4.8) Monocytes # (Auto) 0.6 x10^3/uL (0.0-1.1) Eosinophils # (Auto) 0.5 x10^3/uL (0.0-0.7) Basophils # (Auto) 0.1 x10^3/uL (0.0-0.2) Prothrombin Time 29.3 SEC (11.7-14.0) Prothromb Time International Ratio 2.8 (0.8-1.1) Sodium Level 137 mmol/L (136-145) Potassium Level 3.6 mmol/L (3.5-5.1) Chloride Level 96 mmol/L (98-107) Carbon Dioxide Level 35 mmol/L (21-32) Anion Gap 6 (6-14) Blood Urea Nitrogen 27 mg/dL (8-26) Creatinine 1.0 mg/dL (0.7-1.3) Estimated GFR (Cockcroft-Gault) 73.5 BUN/Creatinine Ratio 27 (6-20) Glucose Level 152 mg/dL (70-99) Calcium Level 9.2 mg/dL (8.5-10.1) Total Bilirubin 0.6 mg/dL (0.2-1.0) Aspartate Amino Transf (AST/SGOT) 21 U/L (15-37) Alanine Aminotransferase (ALT/SGPT) 32 U/L (16-63) Alkaline Phosphatase 76 U/L (46-116) Total Protein 7.0 g/dL (6.4-8.2) Albumin 2.5 g/dL (3.4-5.0) Albumin/Globulin Ratio 0.6 (1.0-1.7) Test 11/12/20 06:29 Glucose (Fingerstick) 143 mg/dL (70-99) Assessment and Plan Assessmemt and Plan Problems Medical Problems: (1) NSTEMI (non-ST elevated myocardial infarction) Status: Acute (2) Obtundation Status: Acute (3) Respiratory arrest Status: Acute Comment Review of Relevant I have reviewed the following items denise (where applicable) has been applied. Justifications for Admission Other Justification Hypoglycemia and altered mental status. JARRED SINGH MD Nov 12, 2020 10:06
--- NOTE | 2020-11-12 10:12 | NUR ---
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 Vitamin K given: N Drug Interaction Changes: Same Interacting Drug Ongoing Drug Interactions: amiodarone, aspirin, plavix A:INR of 2.8 is within desired range. Target range for this patient is: 2 -3 P: Warfarin dose: 3 mg Today at 1600 Bridge Therapy: None Next INR due 11/14/20. Pharmacy anticoagulation service will continue to follow. PEDRO LEE RPH, 11/12/20 1012
[2020-11-12 11:00] VITALS: BP 128/64
[2020-11-12 15:00] VITALS: BP 116/68
[2020-11-12] MEDS: WARFARIN 3 MG TABLET. PO SCH (18:34)
[2020-11-12 19:37] VITALS: BP 102/54
[2020-11-12] MEDS: ATORVASTATIN CALCIUM 40 MG TABLET. PO SCH (20:38)
[2020-11-12 22:42] VITALS: BP 132/71
[2020-11-13 02:58] VITALS: BP 142/69
[2020-11-13] MEDS: INSULIN LISPRO 300 UNITS/3 ML VIAL. SQ SCH ×4 (06:00→18:00)
[2020-11-13 07:00] VITALS: BP 122/69
--- NOTE | 2020-11-13 09:00 | PDOC ---
PROGRESS NOTES Date of Service DATE: 11/13/20 TIME: 08:59 Assessment Problems Medical Problems: (1) NSTEMI (non-ST elevated myocardial infarction) Status: Acute (2) Obtundation Status: Acute (3) Respiratory arrest Status: Acute Anoxic encephalopathy Found obtunded at [facility], admitted 09/22, unresponsive, hypoglycemic, no new stroke on MRI CODE BLUE on 09/26 Last admit had prolonged encephalopathy following the development of cardiogenic shock, STEMI, with negative EEG and CT head Remote history of seizures Critical illness neuropathy/myopathy Respiratory failure Last admit and this admit: septic shock, leukocytosis, lactic acidosis, acute kidney injury, 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, thrombocytopenia (heparin-induced), hematuria, anemia, hyperbilirubinemia Status-post tracheostomy on 10/05 Plan I understand the social work found the patient's niece who is getting in touch with the patient's sister DO NOT RESUSCITATE No prognosis for meaningful recovery Neurology will follow at intervals Subjective None Objective Vital Signs Date Time Temp Pulse Resp B/P (MAP) Pulse Ox O2 Delivery O2 Flow Rate FiO2 11/13/20 08:20 99 Tracheal Collar 8.0 11/13/20 07:00 99.8 105 14 122/69 (86) 99.8 Intake and Output 11/13/20 07:00 Intake Total 0 ml Output Total 1050 ml Balance -1050 ml Intake Oral 0 ml Output Urine Total 1050 ml PHYSICAL EXAM Trached on BiPAP Eyes fixed in elevation, neck extended, arms flexed, legs extended PERRL. EOMI. CN: no focal findings. Muscle tone: increased Muscle strength: arms flexed, some purposeful movement DTR: 1+ Plantar reflex: Silent Gait: not examined Sensory exam: Not testable Cerebellar: not testable Review of Relevant I have reviewed the following items denise (where applicable) has been applied. Labs Laboratory Tests Test 11/11/20 12:19 11/11/20 17:06 11/11/20 23:28 11/12/20 06:20 Glucose (Fingerstick) 160 mg/dL (70-99) 149 mg/dL (70-99) 131 mg/dL (70-99) White Blood Count 6.9 x10^3/uL (4.0-11.0) Red Blood Count 2.76 x10^6/uL (4.30-5.70) Hemoglobin 8.8 g/dL (13.0-17.5) Hematocrit 25.9 % (39.0-53.0) Mean Corpuscular Volume 94 fL (79-100) Mean Corpuscular Hemoglobin 32 pg (25-35) Mean Corpuscular Hemoglobin Concent 34 g/dL (31-37) Red Cell Distribution Width 16.0 % (11.5-14.5) Platelet Count 310 x10^3/uL (140-400) Neutrophils (%) (Auto) 50 % (31-73) Lymphocytes (%) (Auto) 34 % (24-48) Monocytes (%) (Auto) 8 % (0-9) Eosinophils (%) (Auto) 7 % (0-3) Basophils (%) (Auto) 1 % (0-3) Neutrophils # (Auto) 3.5 x10^3/uL (1.8-7.7) Lymphocytes # (Auto) 2.3 x10^3/uL (1.0-4.8) Monocytes # (Auto) 0.6 x10^3/uL (0.0-1.1) Eosinophils # (Auto) 0.5 x10^3/uL (0.0-0.7) Basophils # (Auto) 0.1 x10^3/uL (0.0-0.2) Prothrombin Time 29.3 SEC (11.7-14.0) Prothromb Time International Ratio 2.8 (0.8-1.1) Sodium Level 137 mmol/L (136-145) Potassium Level 3.6 mmol/L (3.5-5.1) Chloride Level 96 mmol/L (98-107) Carbon Dioxide Level 35 mmol/L (21-32) Anion Gap 6 (6-14) Blood Urea Nitrogen 27 mg/dL (8-26) Creatinine 1.0 mg/dL (0.7-1.3) Estimated GFR (Cockcroft-Gault) 73.5 BUN/Creatinine Ratio 27 (6-20) Glucose Level 152 mg/dL (70-99) Calcium Level 9.2 mg/dL (8.5-10.1) Total Bilirubin 0.6 mg/dL (0.2-1.0) Aspartate Amino Transf (AST/SGOT) 21 U/L (15-37) Alanine Aminotransferase (ALT/SGPT) 32 U/L (16-63) Alkaline Phosphatase 76 U/L (46-116) Total Protein 7.0 g/dL (6.4-8.2) Albumin 2.5 g/dL (3.4-5.0) Albumin/Globulin Ratio 0.6 (1.0-1.7) Test 11/12/20 06:29 11/12/20 11:48 11/13/20 06:30 Glucose (Fingerstick) 143 mg/dL (70-99) 138 mg/dL (70-99) 170 mg/dL (70-99) Laboratory Tests Test 11/12/20 11:48 11/13/20 06:30 Glucose (Fingerstick) 138 mg/dL (70-99) 170 mg/dL (70-99) Medications Current Medications Fentanyl Citrate 30 ml @ 0 mls/hr CONT PRN IV SEE PROTOCOL; Start 09/22/20 at 09:45; Stop 10/13/20 at 09:24; Status DC Propofol 100 ml @ 0 mls/hr CONT PRN IV PER PROTOCOL Last administered on 09/22/20at 10:30; Start 09/22/20 at 09:45; Stop 09/26/20 at 20:12; Status DC Fentanyl Citrate (Fentanyl 2ml Vial) 25 mcg PRN Q1HR PRN IV SEE COMMENTS; Start 09/22/20 at 09:45; Stop 10/24/20 at 18:57; Status DC Fentanyl Citrate (Fentanyl 2ml Vial) 50 mcg PRN Q1HR PRN IV SEE COMMENTS Last administered on 10/03/20at 01:22; Start 09/22/20 at 09:45; Stop 10/24/20 at 18:57; Status DC Chlorhexidine Gluconate (Peridex) 15 ml BID MM ; Start 09/22/20 at 10:00; Stop 09/22/20 at 19:54; Status DC Midazolam HCl (Versed) 2 mg 1X ONCE IV ; Start 09/22/20 at 10:30; Stop 09/22/20 at 10:31; Status DC Iohexol (Omnipaque 300 Mg/ml) 75 ml 1X ONCE IV Last administered on 09/22/20at 11:06; Start 09/22/20 at 10:45; Stop 09/22/20 at 10:46; Status DC Info (CONTRAST GIVEN -- Rx MONITORING) 1 each PRN DAILY PRN MC SEE COMMENTS; Start 09/22/20 at 10:45; Stop 09/24/20 at 10:44; Status DC Potassium Chloride/Water 100 ml @ 100 mls/hr Q1H IV Last administered on 09/22/20at 20:27; Start 09/22/20 at 15:00; Stop 09/22/20 at 18:59; Status DC Cefepime HCl (Maxipime) 1 gm Q8HRS IVP Last administered on 09/29/20at 05:52; Start 09/22/20 at 14:00; Stop 09/29/20 at 10:32; Status DC Sennosides (Senna) 17.2 mg PRN BID PRN PO CONSTIPATION; Start 09/22/20 at 14:00 Docusate Sodium (Colace) 100 mg PRN DAILY PRN PO HARD STOOLS; Start 09/22/20 at 14:00; Stop 09/22/20 at 14:00; Status DC Ondansetron HCl (Zofran) 4 mg PRN Q6HRS PRN IVP NAUSEA/VOMITING, 1ST CHOICE; Start 09/22/20 at 14:00 Insulin Human Lispro (HumaLOG) 0-7 UNITS Q6HRS SQ Last administered on 11/03/20at 18:13; Start 09/22/20 at 18:00 Dextrose (Dextrose 50%-Water Syringe) 12.5 gm PRN Q15MIN PRN IV SEE COMMENTS Last administered on 09/22/20at 17:47; Start 09/22/20 at 14:00 Dextrose/Sodium Chloride 1,000 ml @ 50 mls/hr Q20H IV Last administered on 10/12/20at 11:04; Start 09/22/20 at 14:00; Stop 10/13/20 at 09:24; Status DC Acetaminophen (Tylenol) 650 mg PRN Q4HRS PRN PO TEMP OVER 100.4F OR MILD PAIN Last administered on 09/23/20at 00:20; Start 09/22/20 at 14:00; Stop 09/23/20 at 16:24; Status DC Enoxaparin Sodium (Lovenox 40mg Syringe) 40 mg Q24H SQ ; Start 09/22/20 at 14:00; Status UNV Pantoprazole Sodium (PROTONIX VIAL for IV PUSH) 40 mg DAILY IVP Last administered on 11/09/20at 09:07; Start 09/23/20 at 09:00; Stop 11/10/20 at 07:44; Status DC Prochlorperazine Edisylate (Compazine) 10 mg PRN Q6HRS PRN IV NAUSEA/VOMITING, 2ND CHOICE; Start 09/22/20 at 14:00 Etomidate (Amidate) 20 mg STK-MED ONCE IV ; Start 09/22/20 at 17:46; Stop 09/22/20 at 17:46; Status DC Rocuronium [place] (Zemuron) 50 mg STK-MED ONCE .ROUTE ; Start 09/22/20 at 17:46; Stop 09/22/20 at 17:47; Status DC Norepinephrine Bitartrate 8 mg/ Dextrose 258 ml @ 21.769 mls/ hr CONT PRN IV PER PROTOCOL Last administered on 09/24/20at 13:20; Start 09/22/20 at 18:15; Stop 10/13/20 at 09:24; Status DC Potassium Chloride/Water 100 ml @ 100 mls/hr Q1H IV Last administered on 09/23/20at 14:30; Start 09/23/20 at 07:00; Stop 09/23/20 at 14:59; Status DC Acetaminophen (Tylenol) 650 mg PRN Q6HRS PRN PEG MILD PAIN / TEMP > 100.3'F Last administered on 10/29/20at 09:35; Start 09/23/20 at 16:30 Warfarin Sodium (Coumadin Per Pharmacy) 1 each PRN DAILY PRN MC SEE COMMENTS Last administered on 10/01/20at 12:32; Start 09/24/20 at 12:30; Stop 10/02/20 at 05:55; Status DC Warfarin Sodium (Coumadin) 5 mg 1X WARF ONCE PO Last administered on 09/24/20at 17:42; Start 09/24/20 at 16:00; Stop 09/24/20 at 16:01; Status DC Warfarin Sodium (Coumadin - No Dose Today) 1 each 1X WARF ONCE MC ; Start 09/25/20 at 16:00; Stop 09/25/20 at 16:01; Status DC Warfarin Sodium (Coumadin) 1 mg 1X WARF ONCE PO Last administered on 09/26/20at 16:00; Start 09/26/20 at 16:00; Stop 09/26/20 at 16:01; Status DC Propofol 100 ml @ 3.174 mls/ hr CONT PRN IV PER PROTOCOL Last administered on 10/09/20at 04:43; Start 09/26/20 at 20:15; Stop 10/13/20 at 09:24; Status DC Atropine Sulfate (ATROPINE 1mg SYRINGE) 1 mg STK-MED ONCE .ROUTE ; Start 09/25/20 at 10:00; Stop 09/27/20 at 08:20; Status DC Epinephrine HCl (EPINEPHrine SYRINGE) 1 mg STK-MED ONCE .ROUTE ; Start 09/25/20 at 10:00; Stop 09/27/20 at 08:20; Status DC Warfarin Sodium (Coumadin) 2 mg 1X WARF ONCE PO Last administered on 09/27/20at 17:53; Start 09/27/20 at 16:00; Stop 09/27/20 at 16:01; Status DC Aspirin (Aspirin Chewable) 81 mg DAILYWBKFT PO Last administered on 10/06/20at 11:39; Start 09/27/20 at 09:30; Stop 10/06/20 at 16:23; Status DC Clopidogrel Bisulfate (Plavix) 75 mg DAILYWBKFT PO Last administered on 10/09/20at 09:24; Start 09/27/20 at 09:30; Stop 10/09/20 at 17:03; Status DC Potassium Chloride/Water 100 ml @ 100 mls/hr Q1H IV Last administered on 09/27/20at 12:45; Start 09/27/20 at 11:30; Stop 09/27/20 at 13:29; Status DC Warfarin Sodium (Coumadin) 3 mg 1X WARF ONCE PO Last administered on 09/28/20at 18:18; Start 09/28/20 at 16:00; Stop 09/28/20 at 16:01; Status DC Cefepime HCl (Maxipime) 2 gm Q8HRS IVP Last administered on 10/20/20at 05:36; Start 09/29/20 at 14:00; Stop 10/20/20 at 13:23; Status DC Warfarin Sodium (Coumadin) 3 mg 1X WARF ONCE PO Last administered on 09/29/20at 16:55; Start 09/29/20 at 16:00; Stop 09/29/20 at 16:01; Status DC Warfarin Sodium (Coumadin) 3 mg 1X WARF ONCE PO Last administered on 09/30/20at 16:00; Start 09/30/20 at 16:00; Stop 09/30/20 at 16:01; Status DC Warfarin Sodium (Coumadin) 5 mg 1X WARF ONCE PO Last administered on 10/01/20at 16:35; Start 10/01/20 at 16:00; Stop 10/01/20 at 16:01; Status DC Multi-Ingred Cream/Lotion/Oil/ Oint (Artificial Tears Eye Ointment) 1 sudheer PRN Q1HR PRN OU DRY EYE Last administered on 10/03/20at 12:24; Start 10/02/20 at 12:45 Fentanyl Citrate (Fentanyl 2ml Vial) 25 mcg PRN Q5MIN PRN IVP MILD PAIN 1-3; Start 10/05/20 at 06:00; Stop 10/06/20 at 05:59; Status DC Fentanyl Citrate (Fentanyl 2ml Vial) 50 mcg PRN Q5MIN PRN IVP MODERATE PAIN 4- 6; Start 10/05/20 at 06:00; Stop 10/06/20 at 05:59; Status DC Morphine Sulfate (Morphine Sulfate) 1 mg PRN Q10MIN PRN IVP SEVERE PAIN 7-10; Start 10/05/20 at 06:00; Stop 10/06/20 at 05:59; Status UNV Ringer's Solution 1,000 ml @ 30 mls/hr Q24H IV ; Start 10/05/20 at 06:00; Stop 10/05/20 at 17:59; Status DC Hydromorphone HCl (Dilaudid) 0.5 mg PRN Q10MIN PRN IVP SEVERE PAIN 7-10, 2nd CHOICE; Start 10/05/20 at 06:00; Stop 10/06/20 at 05:59; Status UNV Prochlorperazine Edisylate (Compazine) 5 mg PACU PRN PRN IVP NAUSEA, MRX1; Start 10/05/20 at 06:00; Stop 10/06/20 at 05:59; Status DC Bupivacaine HCl/ Epinephrine Bitart (Sensorcain-Epi 0.5%-1:[id number] Mpf) 30 ml STK-MED ONCE .ROUTE Last administered on 10/05/20at 10:09; Start 10/05/20 at 07:12; Stop 10/05/20 at 07:12; Status DC Cellulose (Surgicel Fibrillar 1x2) 1 each STK-MED ONCE .ROUTE Last administered on 10/05/20at 10:30; Start 10/05/20 at 07:12; Stop 10/05/20 at 07:12; Status DC Rocuronium [place] (Zemuron) 50 mg STK-MED ONCE .ROUTE ; Start 10/05/20 at 09:06; Stop 10/05/20 at 09:06; Status DC Rocuronium [place] (Zemuron) 50 mg STK-MED ONCE .ROUTE ; Start 10/05/20 at 10:10; Stop 10/05/20 at 10:10; Status DC Warfarin Sodium (Coumadin Per Pharmacy) 1 each PRN DAILY PRN MC SEE COMMENTS Last administered on 10/06/20at 09:32; Start 10/05/20 at 14:00; Stop 10/06/20 at 16:23; Status DC Argatroban (Argatroban Per Pharmacy) 1 each PRN DAILY PRN MC SEE COMMENTS Last administered on 10/13/20at 16:34; Start 10/05/20 at 14:00; Stop 10/24/20 at 09:37; Status DC Argatroban 50 mg/ Sodium Chloride 50 ml @ 6.48 mls/hr CONT PRN IV ADJUST PER PTT; Start 10/05/20 at 14:00; Stop 10/05/20 at 13:59; Status DC Argatroban 50 mg/ Sodium Chloride 50 ml @ 6.48 mls/hr CONT PRN IV ADJUST PER PTT; Start 10/06/20 at 00:00; Status Cancel Warfarin Sodium (Coumadin) 5 mg 1X WARF ONCE PO Last administered on 10/05/20at 21:23; Start 10/05/20 at 16:00; Stop 10/05/20 at 16:01; Status DC Argatroban 50 mg/ Sodium Chloride 50 ml @ 0 mls/hr CONT PRN IV PER PROTOCOL Last administered on 10/19/20at 22:13; Start 10/06/20 at 09:00; Stop 10/20/20 at 13:02; Status DC Warfarin Sodium (Coumadin) 5 mg 1X WARF ONCE PO ; Start 10/06/20 at 16:00; Stop 10/06/20 at 16:01; Status Cancel Amiodarone HCl (Cordarone) 400 mg DAILY PO Last administered on 11/12/20 08:54; Start 10/06/20 at 10:00 Atorvastatin Calcium (Lipitor) 40 mg QHS PO Last administered on 11/12/20at 20:38; Start 10/06/20 at 21:00 Metoprolol Tartrate (Lopressor) 25 mg BID PO Last administered on 11/12/20 20:38; Start 10/06/20 at 10:00 Furosemide (Lasix) 40 mg DAILY IVP Last administered on 11/12/20 08:54; Start 10/06/20 at 10:00 Potassium Bicarbonate (Potassium Effervescent Tablet) 20 meq DAILY PEG Last administered on 11/12/20 08:54; Start 10/06/20 at 10:00 Tirofiban/Sodium Chloride 100 ml @ 0 mls/hr CONT PRN IV PER PROTOCOL Last administered on 10/11/20 14:11; Start 10/09/20 at 17:00; Stop 10/11/20 at 20:21; Status DC Albumin Human 100 ml @ 100 mls/hr 1X ONCE IV Last administered on 10/12/20 15:22; Start 10/12/20 at 14:00; Stop 10/12/20 at 14:59; Status DC Furosemide (Lasix) 40 mg 1X ONCE IVP Last administered on 10/12/20at 15:22; S tart 10/12/20 at 15:00; Stop 10/12/20 at 15:01; Status DC Aspirin (Aspirin Chewable) 81 mg 1X ONCE PO Last administered on 10/13/20 12:25; Start 10/13/20 at 10:30; Stop 10/13/20 at 10:31; Status DC Aspirin (Aspirin Chewable) 81 mg DAILYWBKFT PO Last administered on 11/12/20 08:53; Start 10/14/20 at 08:00 Fentanyl Citrate (Fentanyl 2ml Vial) 25 mcg PRN Q5MIN PRN IVP MILD PAIN 1-3; Start 10/18/20 at 06:00; Stop 10/18/20 at 20:00; Status DC Ringer's Solution 1,000 ml @ 30 mls/hr Q24H IV Last administered on 10/18/20at 06:00; Start 10/18/20 at 06:00; Stop 10/18/20 at 17:59; Status DC Bupivacaine HCl/ Epinephrine Bitart (Sensorcain-Epi 0.5% Kit) 30 ml STK-MED ONCE .ROUTE Last administered on 10/18/20at 11:04; Start 10/18/20 at 10:23; Stop 10/18/20 at 10:24; Status DC Rocuronium [place] (Zemuron) 50 mg STK-MED ONCE .ROUTE ; Start 10/18/20 at 10:48; Stop 10/18/20 at 10:48; Status DC Sevoflurane (Ultane) 60 ml STK-MED ONCE IH ; Start 10/18/20 at 11:13; Stop 10/18/20 at 11:13; Status DC Fentanyl Citrate (Fentanyl 2ml Vial) 100 mcg STK-MED ONCE .ROUTE ; Start 10/18/20 at 11:14; Stop 10/18/20 at 11:14; Status DC Phenylephrine HCl (PHENYLEPHRINE in 0.9% NACL PF) 1 mg STK-MED ONCE IV ; Start 10/18/20 at 11:55; Stop 10/18/20 at 11:56; Status DC Argatroban (Argatroban Per Pharmacy) 1 each PRN DAILY PRN MC SEE COMMENTS; Start 10/19/20 at 10:30; Status UNV Clopidogrel Bisulfate (Plavix) 75 mg DAILYWBKFT PO Last administered on 11/12/20at 08:54; Start 10/19/20 at 14:00 Warfarin Sodium (Coumadin Per Pharmacy) 1 each PRN DAILY PRN MC SEE COMMENTS Last administered on 11/12/20at 10:12; Start 10/19/20 at 13:15 Warfarin Sodium (Coumadin) 5 mg 1X WARF ONCE PO Last administered on 10/19/20at 15:24; Start 10/19/20 at 16:00; Stop 10/19/20 at 16:01; Status DC Warfarin Sodium (Coumadin) 5 mg 1X WARF ONCE PO Last administered on 10/20/20at 19:10; Start 10/20/20 at 16:00; Stop 10/20/20 at 16:01; Status DC Argatroban 50 mg/ Sodium Chloride 50 ml @ 0 mls/hr CONT PRN IV PER PROTOCOL Last administered on 10/24/20at 01:10; Start 10/20/20 at 13:15; Stop 10/24/20 at 09:37; Status DC Warfarin Sodium (Coumadin) 6 mg 1X WARF ONCE PO Last administered on 10/21/20at 17:56; Start 10/21/20 at 16:00; Stop 10/21/20 at 16:01; Status DC Warfarin Sodium (Coumadin) 7.5 mg 1X WARF ONCE PO Last administered on 10/22/20 at 17:45; Start 10/22/20 at 16:00; Stop 10/22/20 at 16:01; Status DC Warfarin Sodium (Coumadin) 6 mg 1X WARF ONCE PO Last administered on 10/23/20at 17:05; Start 10/23/20 at 16:00; Stop 10/23/20 at 16:01; Status DC Warfarin Sodium (Coumadin) 4 mg 1X WARF ONCE PO ; Start 10/24/20 at 16:00; Stop 10/24/20 at 10:45; Status DC Warfarin Sodium (Coumadin) 4 mg 1X WARF ONCE PO Last administered on 10/24/20at 17:52; Start 10/24/20 at 16:00; Stop 10/24/20 at 16:01; Status DC Warfarin Sodium (Coumadin) 5 mg 1X WARF ONCE PO Last administered on 10/25/20at 16:51; Start 10/25/20 at 16:00; Stop 10/25/20 at 16:01; Status DC Warfarin Sodium (Coumadin) 6 mg 1X WARF ONCE PO Last administered on 10/26/20at 17:24; Start 10/26/20 at 16:00; Stop 10/26/20 at 16:01; Status DC Alteplase, Recombinant (Cathflo For Central Catheter Clearance) 1 mg 1X ONCE INT CAT Last administered on 10/26/20at 21:50; Start 10/26/20 at 18:30; Stop 10/26/20 at 18:31; Status DC Warfarin Sodium (Coumadin) 6 mg 1X WARF ONCE PO Last administered on 10/27/20at 16:00; Start 10/27/20 at 16:00; Stop 10/27/20 at 16:01; Status DC Warfarin Sodium (Coumadin) 5 mg 1X WARF ONCE PO Last administered on 10/28/20at 18:32; Start 10/28/20 at 16:00; Stop 10/28/20 at 16:01; Status DC Warfarin Sodium (Coumadin) 4 mg 1X WARF ONCE PO Last administered on 10/29/20at 16:51; Start 10/29/20 at 16:00; Stop 10/29/20 at 16:01; Status DC Warfarin Sodium (Coumadin - No Dose Today) 1 each 1X WARF ONCE MC ; Start 10/30/20 at 16:00; Stop 10/30/20 at 16:01; Status DC Warfarin Sodium (Coumadin) 4 mg 1X WARF ONCE PO Last administered on 10/31/20at 15:45; Start 10/31/20 at 16:00; Stop 10/31/20 at 16:01; Status DC Warfarin Sodium (Coumadin) 4 mg 1X WARF ONCE PO ; Start 11/01/20 at 16:00; Stop 11/01/20 at 16:00; Status DC Warfarin Sodium (Coumadin) 4 mg DAILY16 PO Last administered on 11/09/20at 17:28; Start 11/02/20 at 16:00; Stop 11/10/20 at 07:46; Status DC Docusate Sodium (Colace Solution) 100 mg DAILY PO Last administered on 11/12/20at 08:55; Start 11/05/20 at 12:00 Lansoprazole (Prevacid) 30 mg DAILY FT Last administered on 11/12/20at 08:54; Start 11/10/20 at 09:00 Warfarin Sodium (Coumadin) 3 mg DAILY16 PO Last administered on 11/12/20at 18:34; Start 11/10/20 at 16:00 Active Scripts Active Amiodarone Hcl 200 Mg Tablet 400 Mg PO DAILY 90 Days [Warfarin Per Pharmacy] 1 EACH Each 1 Each MC PRN DAILY PRN 30 Days Clopidogrel (Clopidogrel Bisulfate) 75 Mg Tablet 75 Mg PO DAILYWBKFT 90 Days Humalog (Insulin Lispro) 100 Unit/1 Ml Insuln.pen 0 Units SQ TIDWMEALS 30 Days Duoneb 0.5-3(2.5) Mg/3 Ml (Albuterol/Ipratropium) 3 Ml Ampul.neb 3 Ml NEB RTQID 30 Days Aspirin 325 Mg Tablet 325 Mg PO DAILYWBKFT 30 Days Metoprolol Tartrate 25 Mg Tablet 25 Mg PO BID 30 Days Montelukast Sodium Tablet (Montelukast Sodium) 10 Mg Tablet 10 Mg PO QHS Gabapentin 600 Mg Tablet 600 Mg PO BID 30 Days Reported Glimepiride 4 Mg Tablet 1 Tab PO DAILY Furosemide 40 Mg Tablet 1 Tab PO BID Symbicort 160-4.5 Mcg Inhaler (Budesonide/Formoterol Fumarate) 10.2 Gm Hfa.aer.ad 1 Puff INH DAILY Losartan-Hctz 100-12.5 Mg Tab (Losartan/Hydrochlorothiazide) 1 Each Tablet 1 Tab PO DAILY Nitrofurantoin Hinds-Mcr 100 Mg (Nitrofurantoin Monohyd/M-Cryst) 100 Mg Capsule 1 Cap PO BID Betamethasone Valerate 60 Ml Lotion 1 TP QHS Atorvastatin Calcium 40 Mg Tablet 1 Tab PO DAILY Diltiazem 24Hr Cd (Diltiazem HCl) 240 Mg Cap.er.24h 1 Cap PO DAILY Nystop (Nystatin) 60 Gm Powder 1 Sudheer TP BID Pepcid (Famotidine) 20 Mg Tablet 20 Mg PO BID Vitals/I & O Vital Sign - Last 24 Hours 11/12/20 11/12/20 11/12/20 11/12/20 11:00 11:46 12:00 15:00 Temp 98.8 98.9 98.8 98.9 Pulse 75 74 Resp 18 18 B/P (MAP) 128/64 (85) 116/68 (84) Pulse Ox 100 100 100 O2 Delivery Tracheal Collar Tracheal Collar Nasal Cannula O2 Flow Rate 8.0 8.0 8.0 8.0 11/12/20 11/12/20 11/12/20 11/12/20 16:14 19:37 19:43 19:43 Temp 99.3 99.3 Pulse 82 Resp 16 B/P (MAP) 102/54 (70) Pulse Ox 100 O2 Delivery Nasal Cannula Trach Collar O2 Flow Rate 8.0 8.0 8.0 8.0 11/12/20 11/12/20 11/12/20 11/12/20 20:34 20:38 22:42 22:52 Temp 98.9 98.9 Pulse 82 83 Resp 20 B/P (MAP) 102/54 132/71 (91) Pulse Ox 100 100 100 O2 Delivery Ventilator Nasal Cannula Ventilator O2 Flow Rate 8.0 11/13/20 11/13/20 11/13/20 11/13/20 00:01 02:36 02:58 04:15 Temp 98.7 98.7 Pulse 81 Resp 16 B/P (MAP) 142/69 (93) Pulse Ox 100 100 O2 Delivery Ventilator Nasal Cannula O2 Flow Rate 8.0 8.0 8.0 11/13/20 11/13/20 11/13/20 11/13/20 05:28 07:00 08:05 08:20 Temp 99.8 99.8 Pulse 105 Resp 14 B/P (MAP) 122/69 (86) Pulse Ox 100 98 99 99 O2 Delivery Ventilator BiPAP/CPAP V-60 AVAPS Tracheal Collar O2 Flow Rate 8.0 Intake and Output 11/12/20 11/12/20 11/13/20 15:00 23:00 07:00 Intake Total 0 ml Output Total 750 ml 300 ml Balance -750 ml -300 ml Justicifation of Admission Dx: Justifications for Admission: Justification of Admission Dx: Yes CHF: Cardiac Arrhythmias RAFAEL REINOSO MD Nov 13, 2020 09:00
[2020-11-13] MEDS: LANSOPRAZOLE 30 MG TAB.RAP.DR FT SCH (09:26)
[2020-11-13] MEDS: FUROSEMIDE 40 MG/4 ML VIAL. IVP SCH (09:26)
[2020-11-13] MEDS: ASPIRIN CHEWABLE 81 MG TABLET. PO SCH (09:26)
[2020-11-13] MEDS: CLOPIDOGREL BISULFATE 75 MG TABLET PO SCH (09:26)
[2020-11-13] MEDS: POTASSIUM BICARB 20 MEQ EFFERVESCENT TABLET. PEG SCH (09:26)
[2020-11-13] MEDS: DOCUSATE 100 MG/10 ML SOLUTION. PO SCH (09:27)
[2020-11-13] MEDS: METOPROLOL TART IMMED RELEASE 25 MG TABLET. PO SCH ×2 (09:27→21:13)
[2020-11-13] MEDS: AMIODARONE HCL 200 MG TABLET. PO SCH (09:27)
[2020-11-13 10:20] VITALS: BP 128/71
--- NOTE | 2020-11-13 10:26 | NUR ---
SS following up with discharge planning. SS reviewed pt chart and discussed with pt RN. Pt is currently on trach shield at 35%. G-Tube in place. Pt on IV Lasix. COVID19 negative. Pt in need of DPOA or Guardianship for placement at LTACH or LTC facility. Petal Cutter, Amarilis Matthews, assigned to case and is in need of proposed guardian prior to proceeding. Pt's niece, Casandra Andrews, visited pt over the weekend and discussed medical status with physicians. Casandra and her spouse, Han Jovel, are requesting to become Guardians at this time. Casandra provided contact information, , Address: [facility] [address] [place] [address]. SS provided research attorney, Amarilis Matthews, with information for Guardianship process. SS will continue to follow for discharge planning.
[2020-11-13 14:19] VITALS: BP 125/80
--- NOTE | 2020-11-13 15:07 | PDOC ---
[employer] PROGRESS NOTE Date of Service DOS: DATE: 11/13/20 TIME: 15:06 Chief Complaint Chief Complaint Acute anemia Acute metabolic, infectious encephalopathy Acute respiratory failure Healthcare associated pneumonia Acute hypoglycemia Hypokalemia Elevated troponins Severe protein malnutrition Morbid obesity AAA, 4 cm, infrarenal History of diabetes mellitus type 2 History of dyslipidemia history of hypertension History of recent STEMI History of CAD History of peripheral artery disease History of JEANNE History of CVA History of paroxysmal atrial fibrillation Ischemic cardiomyopathy History of Present Illness History of Present Illness 11/13: Afebrile. Still no meaningful response to any sort of interaction. Remains on trach. PEG tube. Complicated social situation. Afebrile. BP a little up today. Continues to remain encephalopathic off sedation requiring 8 L trach shield O2 with O2 saturations 91%. Tolerating PEG feeds with free water boluses. INR 2.8. Discussed with anabel Guajardo she is reaching out to the rest of the family. 11/11: Afebrile. No meaningful following of commands, opens eyes. Requires 8L trach shield O2 to maintain O2 saturations 90%. No residuals on PEG tube feeds. Discussed with anabel Guajardo bedside she is going to reach out to the rest of the family now the family has been located. 11/10: Afebrile. Continues to be encephalopathic no meaningful eye contact movements not following commands. Requiring 8 L trach shield O2 to maintain saturations 91%. No residuals on tube feeds 45 cc/h. INR 2.8. Throughout heroic efforts by social work estranged family has been found and has a niece who will be visiting sometime potentially later today or tomorrow 11/09: Afebrile. Still encephalopathic not making any meaningful eye contact or movements not following commands. Waiting for guardianship. 8 L trach shield O2. Tolerating tube feeds with no residuals 45 cc/h. INR 2.6 11/08: Afebrile. Opens eyes but no meaningful contact not following commands. Requiring 8 L trach shield O2 mask. 11/07: Not responsive to stimuli, not making eye contact. Afebrile. Seen on 8 L trach collar canula. Hb 9.1 Renal labs stable INR 3.1. 11/06: Patient not meaningfully responding well. On trach shield and BiPAP as needed on trach. PEG feeds with no significant residuals. 11/05: Patient is still unresponsive. Pupils reactive to light and accommodation. No meaningful movements. Actively posturing at bed side. Has peg feeding at 45cc/hr. Trach shield at 8L and BIPAP PRN at 35%. There is an open wound at the site of the peg insertion. Wound care, Dr. Cristobal is consulted. 11/04: Patient is still unresponsive. Pupils reactive to light and accommodation. Actively posturing at bedside. No meaningful movements. Has peg feeding at 45cc/hr. Trach shield at 8L and BIPAP PRN at 35%. 11/03: Patient seen and examined. Discussed with RN and social service coordinator. Chart reviewed. Patient is still unresponsive. Actively decorticate posturing at bedside. Eyes rolled upward. No meaningful movements. Has peg feeding at 45cc/hr. The bleeding at the peg insertion site has stopped. 11/02: Patient seen and examined. Chart reviewd. Discussed with RN and social service coordinator. Patient is still unresponsive. No meaningful movements. Actively decorticate posturing at bedside. Has peg feeding running at 45cc/hr. Some bleeding at the peg insertion site. 11/01: Patient seen and examined. Discussed with social service coordinator and RN. Patient is still unresponsive. No meaningful movements. Peg feeding is running at 45cc/hr. Patient is actively posturing at bed side. Trach shield at 8L and BIPAP PRN at 35%. 10/31: Patient seen and examined. Chart reviewed. Discussed with social service coordinator and RN. Patient still unresponsive. Patient actively posturing at bed side. Has peg running at 45cc/hr. Vestibulo-ocular reflex intact. 10/30: Patient seen and examined. Discussed with social service coordinator and RN. Chart reviewed. Patient actively posturing at bed side. Has peg running at 45cc/hr. Mr Andrews is a 70-year-old male with a recent prolonged hospitalization for STEMI and respiratory failure for which she was treated with arterial thrombolysis for a right leg popliteal artery aneurysm and also had left heart cath with placement of a stent in the LAD and RCA comes in today after he was found obtunded at his [place] [facility] facility. Apparently according to the nursing facility patient was in his usual state of health and he was conversational but then became altered. His blood glucose was found to be in the 30s. Glucose tabs and glucagon was given in route and his GCS reported at 6. Upon arrival patient's mental status did not improve and he was eventually intubated for airway protection. Of note EMS was bagging the patient through the nasal access. In the ED, patient was placed on a vent and pulmonology was consulted. Patient was also taken to the CT scanner for sanders scanning. Patient was started to wake up on the vent and sedation was ordered. 09/23: Patient examined at bedside. Intubated. Not on any sedation but unresponsive. Neurology consult in place. 09/24: Patient seen and examined at bedside. Remains intubated he is off sedation but still remains unresponsive. Planning for MRI brain in the morning. Further plan to be determined by MRI. 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 09/25: Afebrile, currently breathing on ventilator with FiO2 50%, PEEP 5. Had CODE BLUE in ICU this morning; received 2 rounds of CPR, epinephrine, and atr opine with ROSC. MRI brain negative. Made DNR, and after discussion with Dr. Rubalcava he agrees. 09/26:: Afebrile. Still on vent, with FiO2 45%, PEEP 5. After discussion with Dr. Rubalcava yesterday, patient was made DNR. In the ED is likely a poor candidate for weaning trials may need trach in near future if no significant improvement. 09/27:: Afebrile. On vent with FiO2 40%, PEEP 5. Potassium 2.8 today, will replace. Warfarin has been resumed. Discussed with pharmacy, will resume aspirin and Plavix. May need tracheostomy by the end of the week if no improvement in mental status. 09/28:: Afebrile. On ventilator with FiO2 40%, PEEP 5. Warfarin has been resumed; INR 1.3 today. Some morning labs still pending; hemoglobin yesterday 7.3, will continue to monitor. Continue IV cefepime and supportive care. 09/29: Afebrile. Breathing on vent with FiO2 40%, PEEP 5. INR 1.2 today; pharmacy to help with warfarin dosing. White count within normal range, renal function stable. Spoke with pharmacy about cefepime 1 g every 8 hours dosing; this has been changed to cefepime 2 g every 8 hours. 09/30: Afebrile. Currently breathing on vent with FiO2 40%, PEEP 5. Continue antibiotics, cefepime 2 g every 8 hours. INR 1.4; continue warfarin dosing per pharmacy. Possible tracheostomy at some point. Critical care time 30 minutes reviewing charts, labs, examination, discussion with RN. 10/01: T-max 100.3 F. On ventilator with FiO2 40%, PEEP 5. Continue antibiotics, cefepime 2 g every 8 hours. INR 1.4, still subtherapeutic; gus nue warfarin dosing per pharmacy. Possible tracheostomy at some point. 10/02: No acute events overnight. Patient saturating 99% on vent settings of 10/450/40/5. Patient will likely need a trach and PEG at some point. We will hold warfarin and start 2 units PRBC transfusion. Patient's chart, labs, images were reviewed and discussed with RN 10/03: No acute events overnight. Patient sat 100% on minimal vent settings. No sedation at this point and patient is opening his eyes spontaneously. Not much response or spontaneous movements. Surgery has been consulted for tracheostomy. Patient will also likely need a PEG tube. 10/04: No acute events overnight. Patient saturating 90% on minimal vent settings. T-max 100.4 overnight. Plan for trach tomorrow with surgery. Patient's chart, labs, images were reviewed and discussed with RN 10/05: No acute events overnight. Patient saturating 99% on minimal vent settings. Plan for tracheostomy today. Consent is provided by authorization by 2 physicians due to patient having no close relatives or DPOA. Will resume heparin and warfarin bridging tomorrow after tracheostomy 10/07: No acute events overnight. Patient seen and examined bedside. On trach vent. Saturating 99%. Pending GI evaluation for possible PEG placement after discussing with cardiology whether to continue with Plavix. Possibly place PEG if patient is only on aspirin and stopping argatroban. 10/08: No acute events overnight. Patient continues to be on trach mechanical vent. Saturating 100%. Pending decision from GI whether to proceed with PEG placement depending on the type of anticoagulation patient will be on. 10/09: No overnight events. On trach with vent support 40% FiO2 PEEP of 5. Currently argatroban and propofol for minimal sedation. When sedation is weaned he has no meaningful movements but has pulled at his tracheostomy site. Unable to hold plavix due to recently placed stents. 10/10: Afebrile today. On trach with vent support 40% FiO2 PEEP of 5. Continue argatroban and changed to Aggrastat in anticipation of surgical consultation for potential laparoscopic PEG placement. INR 1.6. Hb greater than 9 no significan t neurologic recovery today. 10/11: Afebrile. On trach with vent support 40% FiO2 PEEP of 5. INR 1.8. Not making meaningful eye contact. Labs otherwise stable. 10/12: Afebrile. Trach with vent support 40% FiO2 PEEP five O2 saturations 92%. INR 1.8, mag 1.8, Hb 8.4. Not following commands. Tentative plans for surgical PEG next week. 10/13: Afebrile. Trach with vent support 40% FiO2 PEEP 5. Eyes open, not tracking or following commands. Holding Plavix. On argatroban. 10/14: Afebrile. Trach with vent support 40% FiO2 PEEP of 5. Will open eyes intermittently not necessarily to voice. Good urine output. Labs stable. 10/15: Afebrile overnight. Trach with vent AC 40% fio2 PEEP 5. Had a very large bowel movement. Still not tracking. Hb 9, INR 1.7, glucose 144. Tentative plan for PEG 10/18/2020 CC time 30 minutes 10/16/20: Patient seen and examined in the ICU. He was resting and still on vent via trach. Has NG running via Dobhoff, feeding at 40cc/hr. AC/10/450/40% plus 5 PEEP. Discussed with RN. Chart reviewed. 10/17/20: Patient was seen and examined in the ICU today. Still on vent via trach at AC/10/450/40 plus 5 PEEP. While examined, patient was at 100% O2 saturation. Has SCDs on for DVT prophylaxis. Stauffer catheter in place. On IV argatroban. R subclavian triple lumen in place. Dobhoff running at 40cc/hr. Discussed with RN. Chart reviewed. 10/18/20: Patient seen and examined in ICU. His eyes are open. On vent via trach with settings that were recently changed to spontaneous respirations with FiO2 of 40 and 5 PEEP. Trach is clean and dry. Currently, oxygen saturation is at 100%. Stauffer to bedside and rectal bag in place. Discussed with RN. Chart reviewed. 10/19/20: Patient was seen and examined in the ICU today. His eyes were open and he was resting. On BiPAP via trach AVAPS/10/450/40 plus 5 PEEP. Trach is clean and dry. Has SCDs for DVT prophylaxis. Patient has rectal bag, Stauffer to bedside, and NG tube in place. Discussed with RN. Chart reviewed. 10/20/20 No acute events overnight. Patient seen and examined bedside. Transferred from the ICU. Continues to be nonverbal and not following much commands. Opens eyes to voice. Currently on BiPAP via trach on AVAPS setting 10/450/40 PEEP of 5. Trach site is clear. No signs of infections. Patient's chart, labs, images were reviewed and discussed with RN 10/21/2020 No acute events overnight. Patient seen and examined bedside. Afebrile. Continues to be nonverbal but opens eyes to voice. Currently on BiPAP. Patient's chart, labs, images were reviewed and discussed with RN. 10/22/2020 No acute events overnight. Patient seen examined bedside. Continue with argatroban until warfarin goal INR of 4 and maintenance goal of 2-3. 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 Pending appointing a legal guardian. Patient's chart, labs, images were reviewed and discussed with RN 10/23/2020 laparoscopic gastrostomy tube placement (specifically 24 F) Oct discharge planning in place once court appointed DPOA available Acute anemia Acute metabolic, infectious encephalopathy Acute respiratory failure Healthcare associated pneumonia Acute hypoglycemia Hypokalemia Elevated troponins Severe protein malnutrition Morbid obesity AAA, 4 cm, infrarenal History of diabetes mellitus type 2 History of dyslipidemia history of hypertension Patient seen examined bedside. argatroban until warfarin goal INR of 4 and maintenance goal of 2-3. Pending appointing a legal guardian. Patient's chart, labs, images were reviewed and discussed with RN Tayaoff Enteric tube with metallic tip in the left upper quadrant likely in the stomach. 10/24/2020 doing well on trach shield on a 24-hour basis./ blood gases shows no worsening hypercapnia while on trach shield. No apneic breathing reported. laparoscopic gastrostomy tube placement (specifically 24 F) Oct discharge planning in place once court appointed DPOA available Acute anemia Acute metabolic, infectious encephalopathy Acute respiratory failure Healthcare associated pneumonia Acute hypoglycemia Hypokalemia Elevated troponins Severe protein malnutrition Morbid obesity AAA, 4 cm, infrarenal History of diabetes mellitus type 2 History of dyslipidemia history of hypertension Patient seen examined bedside. argatroban until warfarin goal INR of 4 and maintenance goal of 2-3. Pending appointing a legal guardian. Patient's chart, labs, images were reviewed and discussed with KARY Cardenas Enteric tube with metallic tip in the left upper quadrant likely in the stomach. Home on plavix and warfarin D/C INITIAL PLAN TO [facility] PENDING/ discharge planning in place once court appointed DPOA available D/W RN 10/25/2020 doing well on trach shield on a 24-hour basis./ blood gases shows no worsening hypercapnia while on trach shield. No apneic breathing reported. laparoscopic gastrostomy tube placement (specifically 24 F) Oct discharge planning in place once court appointed DPOA available Acute anemia Acute metabolic, infectious encephalopathy Acute respiratory failure Healthcare associated pneumonia Acute hypoglycemia Hypokalemia Elevated troponins Severe protein malnutrition Morbid obesity AAA, 4 cm, infrarenal History of diabetes mellitus type 2 History of dyslipidemia history of hypertension Patient seen examined bedside. argatroban until warfarin goal INR of 4 and maintenance goal of 2-3. Pending appointing a legal guardian. Patient's chart, labs, images were reviewed and discussed with KARY Cardenas Enteric tube with metallic tip in the left upper quadrant likely in the stomach. Home on plavix and warfarin D/C INITIAL PLAN TO [facility] PENDING/ discharge planning in place once court appointed DPOA available D/W RN 10/26/2020 HGB 9.4 doing well on trach shield on a 24-hour basis./ blood gases shows no worsening hypercapnia while on trach shield. No apneic breathing reported. laparoscopic gastrostomy tube placement (specifically 24 F) Oct discharge planning in place once court appointed DPOA available Acute anemia Acute metabolic, infectious encephalopathy Acute respiratory failure Healthcare associated pneumonia Acute hypoglycemia Hypokalemia Elevated troponins Severe protein malnutrition Morbid obesity AAA, 4 cm, infrarenal History of diabetes mellitus type 2 History of dyslipidemia history of hypertension Patient seen examined bedside. argatroban until warfarin goal INR of 4 and maintenance goal of 2-3. Pending appointing a legal guardian. Patient's chart, labs, images were reviewed and discussed with KARY Cardenas Enteric tube with metallic tip in the left upper quadrant likely in the stomach. Home on plavix and warfarin D/C INITIAL PLAN TO [facility] PENDING/ discharge planning in place once court appointed DPOA available D/W RN 10/27/2020 HGB 9.4 doing well on trach shield on a 24-hour basis./ blood gases shows no worsening hypercapnia while on trach shield. No apneic breathing reported. laparoscopic gastrostomy tube placement (specifically 24 F) Oct discharge planning in place once court appointed DPOA available Acute anemia Acute metabolic, infectious encephalopathy Acute respiratory failure Healthcare associated pneumonia Acute hypoglycemia Hypokalemia Elevated troponins Severe protein malnutrition Morbid obesity AAA, 4 cm, infrarenal History of diabetes mellitus type 2 History of dyslipidemia history of hypertension Patient seen examined bedside. argatroban until warfarin goal INR of 4 and maintenance goal of 2-3. Pending appointing a legal guardian. Patient's chart, labs, images were reviewed and discussed with KARY Cardenas Enteric tube with metallic tip in the left upper quadrant likely in the stomach. Home on plavix and warfarin D/C INITIAL PLAN TO [facility] PENDING/ discharge planning in place once court appointed DPOA available D/W RN 10/28/2020 HGB 9.4 doing well on trach shield on a 24-hour basis./ blood gases shows no worsening hypercapnia while on trach shield. No apneic breathing reported. laparoscopic gastrostomy tube placement (specifically 24 F) Oct discharge planning in place once court appointed DPOA available Acute anemia Acute metabolic, infectious encephalopathy Acute respiratory failure Healthcare associated pneumonia Acute hypoglycemia Hypokalemia Elevated troponins Severe protein malnutrition Morbid obesity AAA, 4 cm, infrarenal History of diabetes mellitus type 2 History of dyslipidemia history of hypertension Patient seen examined bedside. argatroban until warfarin goal INR of 4 and maintenance goal of 2-3. Pending appointing a legal guardian. Patient's chart, labs, images were reviewed and discussed with KARY Cardenas Enteric tube with metallic tip in the left upper quadrant likely in the stomach. Home on plavix and warfarin D/C INITIAL PLAN TO [facility] PENDING/ discharge planning in place once court appointed DPOA available D/W RN Vitals/I&O Vitals/I&O: Vital Signs Date Time Temp Pulse Resp B/P (MAP) Pulse Ox O2 Delivery O2 Flow Rate FiO2 11/13/20 14:19 100.1 78 16 125/80 (95) 100 trach shield 8.0 100.1 I & O 11/12/20 11/12/20 11/13/20 15:00 23:00 07:00 Intake Total 0 ml Output Total 750 ml 300 ml Balance -750 ml -300 ml Physical Exam Physical Exam: Neuro: actively posturing. Pulpils dialated but reactive to light and accomendation. Flaccidity in the lower extremity bilaterally. Equivocal Babinski. General: Other (actively posturing. No meaningful movements. ) Heart: Regular rate (SR), Other (distant heart sounds) Lungs: Other (Tracheostomy with trach shield. Deminished breath sounds.) Abdomen: Soft, Other (g tube in place) Extremities: No cyanosis, Other (2-3+ bilateral LE pitting edema) Skin: No rashes, No significant lesion Labs Labs: Laboratory Tests Test 11/13/20 06:30 11/13/20 11:20 Glucose (Fingerstick) 170 mg/dL (70-99) 173 mg/dL (70-99) Assessment and Plan Assessmemt and Plan Problems Medical Problems: (1) NSTEMI (non-ST elevated myocardial infarction) Status: Acute (2) Obtundation Status: Acute (3) Respiratory arrest Status: Acute Comment Review of Relevant I have reviewed the following items denise (where applicable) has been applied. Justifications for Admission Other Justification Hypoglycemia and altered mental status. JARRED PARMAR MD Nov 13, 2020 15:06
[2020-11-13] MEDS: WARFARIN 3 MG TABLET. PO SCH (16:28)
[2020-11-13 19:54] VITALS: BP 137/70
[2020-11-13] MEDS: ATORVASTATIN CALCIUM 40 MG TABLET. PO SCH (21:12)
[2020-11-13 22:55] VITALS: BP 151/67
[2020-11-14 02:46] VITALS: BP 144/75
[2020-11-14] MEDS: INSULIN LISPRO 300 UNITS/3 ML VIAL. SQ SCH ×5 (05:34→23:44)
[2020-11-14 06:16] LABS: PROTHROMBIN TIME PATIENT 20.6 SEC (11.7-14.0)
[2020-11-14 07:00] VITALS: BP 137/87
[2020-11-14] MEDS: LANSOPRAZOLE 30 MG TAB.RAP.DR FT SCH (08:20)
[2020-11-14] MEDS: CLOPIDOGREL BISULFATE 75 MG TABLET PO SCH (08:20)
[2020-11-14] MEDS: FUROSEMIDE 40 MG/4 ML VIAL. IVP SCH (08:20)
[2020-11-14] MEDS: POTASSIUM BICARB 20 MEQ EFFERVESCENT TABLET. PEG SCH (08:20)
[2020-11-14] MEDS: METOPROLOL TART IMMED RELEASE 25 MG TABLET. PO SCH ×2 (08:20→20:37)
[2020-11-14] MEDS: ASPIRIN CHEWABLE 81 MG TABLET. PO SCH (08:21)
[2020-11-14] MEDS: AMIODARONE HCL 200 MG TABLET. PO SCH (08:21)
[2020-11-14] MEDS: DOCUSATE 100 MG/10 ML SOLUTION. PO SCH (08:21)
--- NOTE | 2020-11-14 10:36 | NUR ---
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 Target range for this patient is: 2 -3 P: Warfarin dose: 4 mg Daily Bridge Therapy: None Therapeutic Next INR due 11/16 Pharmacy anticoagulation service will continue to follow. Roseline Varela [facility], 11/14/20 [id number]
[2020-11-14 10:38] VITALS: BP 132/85
--- NOTE | 2020-11-14 12:24 | NUR ---
SS following up with discharge planning. SS reviewed pt chart and discussed with pt RN. Pt is currently on trach shield at 35%. G-Tube in place. Pt on IV Lasix. COVID19 negative. Pt in need of DPOA or Guardianship for placement at LTACH or LTC facility. Jewel Bearing Facer, Amarilis Matthews, assigned to case and is in need of proposed guardian prior to proceeding. Pt's moises, Casandra Andrews, , and her spouse Han Jovel are requesting to be proposed Guardians at this time. Jewel Bearing Facer currently working on Petition. Jewel Bearing Facer requiring medical letter from physician to complete Petition. Dr. Garcia notified and will complete letter and provide to SS once finished. Pt's niece picking up pt's belongings from [facility]. Pt's niece scheduling tour at [facility]. SS will continue to follow for discharge planning.
--- NOTE | 2020-11-14 12:40 | PDOC ---
[employer] PROGRESS NOTE Date of Service DOS: DATE: 11/14/20 TIME: 12:39 Chief Complaint Chief Complaint Acute anemia Acute metabolic, infectious encephalopathy Acute respiratory failure Healthcare associated pneumonia Acute hypoglycemia Hypokalemia Elevated troponins Severe protein malnutrition Morbid obesity AAA, 4 cm, infrarenal History of diabetes mellitus type 2 History of dyslipidemia history of hypertension History of recent STEMI History of CAD History of peripheral artery disease History of JEANNE History of CVA History of paroxysmal atrial fibrillation Ischemic cardiomyopathy History of Present Illness History of Present Illness 11/14: No sort of clinical change overnight. Remains encephalopathic. Can discharge whenever guardianship and social issues mediated. 11/13: Afebrile. Still no meaningful response to any sort of interaction. Remains on trach. PEG tube. Complicated social situation. Afebrile. BP a little up today. Continues to remain encephalopathic off sedation requiring 8 L trach shield O2 with O2 saturations 91%. Tolerating PEG feeds with free water boluses. INR 2.8. Discussed with ninelda Guajardo she is reaching out to the rest of the family. 11/11: Afebrile. No meaningful following of commands, opens eyes. Requires 8L trach shield O2 to maintain O2 saturations 90%. No residuals on PEG tube feeds. Discussed with anabel Guajardo bedside she is going to reach out to the rest of the family now the family has been located. 11/10: Afebrile. Continues to be encephalopathic no meaningful eye contact movements not following commands. Requiring 8 L trach shield O2 to maintain saturations 91%. No residuals on tube feeds 45 cc/h. INR 2.8. Throughout heroic efforts by social work estranged family has been found and has a niece who will be visiting sometime potentially later today or tomorrow 11/09: Afebrile. Still encephalopathic not making any meaningful eye contact or movements not following commands. Waiting for guardianship. 8 L trach shield O2. Tolerating tube feeds with no residuals 45 cc/h. INR 2.6 11/08: Afebrile. Opens eyes but no meaningful contact not following commands. Requiring 8 L trach shield O2 mask. 11/07: Not responsive to stimuli, not making eye contact. Afebrile. Seen on 8 L trach collar canula. Hb 9.1 Renal labs stable INR 3.1. 11/06: Patient not meaningfully responding well. On trach shield and BiPAP as needed on trach. PEG feeds with no significant residuals. 11/05: Patient is still unresponsive. Pupils reactive to light and accommodation. No meaningful movements. Actively posturing at bed side. Has peg feeding at 45cc/hr. Trach shield at 8L and BIPAP PRN at 35%. There is an open wound at the site of the peg insertion. Wound care, Dr. Cristobal is consulted. 11/04: Patient is still unresponsive. Pupils reactive to light and accommodation. Actively posturing at bedside. No meaningful movements. Has peg feeding at 45cc/hr. Trach shield at 8L and BIPAP PRN at 35%. 11/03: Patient seen and examined. Discussed with RN and social and political studies professor. Chart reviewed. Patient is still unresponsive. Actively decorticate posturing at bedside. Eyes rolled upward. No meaningful movements. Has peg feeding at 45cc/hr. The bleeding at the peg insertion site has stopped. 11/02: Patient seen and examined. Chart reviewd. Discussed with RN and social and political studies professor. Patient is still unresponsive. No meaningful movements. Actively decorticate posturing at bedside. Has peg feeding running at 45cc/hr. Some bleeding at the peg insertion site. 11/01: Patient seen and examined. Discussed with social and political studies professor and RN. Patient is still unresponsive. No meaningful movements. Peg feeding is running at 45cc/hr. Patient is actively posturing at bed side. Trach shield at 8L and BIPAP PRN at 35%. 10/31: Patient seen and examined. Chart reviewed. Discussed with social and political studies professor and RN. Patient still unresponsive. Patient actively posturing at bed side. Has peg running at 45cc/hr. Vestibulo-ocular reflex intact. 10/30: Patient seen and examined. Discussed with social and political studies professor and RN. Chart reviewed. Patient actively posturing at bed side. Has peg running at 45cc/hr. Mr Andrews is a 70-year-old male with a recent prolonged hospitalization for STEMI and respiratory failure for which she was treated with arterial thrombolysis for a right leg popliteal artery aneurysm and also had left heart cath with placement of a stent in the LAD and RCA comes in today after he was found obtunded at his intermediate facility. Apparently according to the nursing facility patient was in his usual state of health and he was conversational but then became altered. His blood glucose was found to be in the 30s. Glucose tabs and glucagon was given in route and his GCS reported at 6. Upon arrival patient's mental status did not improve and he was eventually intubated for airway protection. Of note EMS was bagging the patient through the nasal access. In the ED, patient was placed on a vent and pulmonology was consulted. Patient was also taken to the CT scanner for sanders scanning. Patient was started to wake up on the vent and sedation was ordered. 09/23: Patient examined at bedside. Intubated. Not on any sedation but unresponsive. Neurology consult in place. 09/24: Patient seen and examined at bedside. Remains intubated he is off sedation but still remains unresponsive. Planning for MRI brain in the morning. Further plan to be determined by MRI. 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 09/25: Afebrile, currently breathing on ventilator with FiO2 50%, PEEP 5. Had CODE BLUE in ICU this morning; received 2 rounds of CPR, epinephrine, and atropine with ROSC. MRI brain negative. Made DNR, and after discussion with Dr. Rubalcava he agrees. 09/26:: Afebrile. Still on vent, with FiO2 45%, PEEP 5. After discussion with Dr. Rubalcava yesterday, patient was made DNR. In the ED is likely a poor candidate for weaning trials may need trach in near future if no significant improvement. 09/27:: Afebrile. On vent with FiO2 40%, PEEP 5. Potassium 2.8 today, will replace. Warfarin has been resumed. Discussed with pharmacy, will resume aspirin and Plavix. May need tracheostomy by the end of the week if no improvement in mental status. 09/28:: Afebrile. On ventilator with FiO2 40%, PEEP 5. Warfarin has been resumed; INR 1.3 today. Some morning labs still pending; hemoglobin yesterday 7.3, will continue to monitor. Continue IV cefepime and supportive care. 09/29: Afebrile. Breathing on vent with FiO2 40%, PEEP 5. INR 1.2 today; marileer rodger to help with warfarin dosing. White count within normal range, renal function stable. Spoke with pharmacy about cefepime 1 g every 8 hours dosing; this has been changed to cefepime 2 g every 8 hours. 09/30: Afebrile. Currently breathing on vent with FiO2 40%, PEEP 5. Continue antibiotics, cefepime 2 g every 8 hours. INR 1.4; continue warfarin dosing per pharmacy. Possible tracheostomy at some point. Critical care time 30 minutes reviewing charts, labs, examination, discussion with RN. 10/01: T-max 100.3 F. On ventilator with FiO2 40%, PEEP 5. Continue antibiotics, cefepime 2 g every 8 hours. INR 1.4, still subtherapeutic; continue warfarin dosing per pharmacy. Possible tracheostomy at some point. 10/02: No acute events overnight. Patient saturating 99% on vent settings of 10/450/40/5. Patient will likely need a trach and PEG at some point. We will hold warfarin and start 2 units PRBC transfusion. Patient's chart, labs, images were reviewed and discussed with RN 10/03: No acute events overnight. Patient sat 100% on minimal vent settings. No sedation at this point and patient is opening his eyes spontaneously. Not much response or spontaneous movements. Surgery has been consulted for tracheostomy. Patient will also likely need a PEG tube. 10/04: No acute events overnight. Patient saturating 90% on minimal vent settings. T-max 100.4 overnight. Plan for trach tomorrow with surgery. Patient's chart, labs, images were reviewed and discussed with RN 10/05: No acute events overnight. Patient saturating 99% on minimal vent settings. Plan for tracheostomy today. Consent is provided by authorization by 2 physicians due to patient having no close relatives or DPOA. Will resume heparin and warfarin bridging tomorrow after tracheostomy 10/07: No acute events overnight. Patient seen and examined bedside. On trach vent. Saturating 99%. Pending GI evaluation for possible PEG placement after discussing with cardiology whether to continue with Plavix. Possibly place PEG if patient is only on aspirin and stopping argatroban. 10/08: No acute events overnight. Patient continues to be on trach mechanical vent. Saturating 100%. Pending decision from GI whether to proceed with PEG placement depending on the type of anticoagulation patient will be on. 10/09: No overnight events. On trach with vent support 40% FiO2 PEEP of 5. Currently argatroban and propofol for minimal sedation. When sedation is weaned he has no meaningful movements but has pulled at his tracheostomy site. Unable to hold plavix due to recently placed stents. 10/10: Afebrile today. On trach with vent support 40% FiO2 PEEP of 5. Continue argatroban and changed to Aggrastat in anticipation of surgical consultation for potential laparoscopic PEG placement. INR 1.6. Hb greater than 9 no si gnificant neurologic recovery today. 10/11: Afebrile. On trach with vent support 40% FiO2 PEEP of 5. INR 1.8. Not making meaningful eye contact. Labs otherwise stable. 10/12: Afebrile. Trach with vent support 40% FiO2 PEEP five O2 saturations 92%. INR 1.8, mag 1.8, Hb 8.4. Not following commands. Tentative plans for surgical PEG next week. 10/13: Afebrile. Trach with vent support 40% FiO2 PEEP 5. Eyes open, not tracking or following commands. Holding Plavix. On argatroban. 10/14: Afebrile. Trach with vent support 40% FiO2 PEEP of 5. Will open eyes intermittently not necessarily to voice. Good urine output. Labs stable. 10/15: Afebrile overnight. Trach with vent AC 40% fio2 PEEP 5. Had a very large bowel movement. Still not tracking. Hb 9, INR 1.7, glucose 144. Tentative plan for PEG 10/18/2020 CC time 30 minutes 10/16/20: Patient seen and examined in the ICU. He was resting and still on vent via trach. Has NG running via Dobhoff, feeding at 40cc/hr. AC/10/450/40% plus 5 PEEP. Discussed with RN. Chart reviewed. 10/17/20: Patient was seen and examined in the ICU today. Still on vent via trach at AC/10/450/40 plus 5 PEEP. While examined, patient was at 100% O2 saturation. Has SCDs on for DVT prophylaxis. Stauffer catheter in place. On IV argatroban. R subclavian triple lumen in place. Dobhoff running at 40cc/hr. Discussed with RN. Chart reviewed. 10/18/20: Patient seen and examined in ICU. His eyes are open. On vent via trach with settings that were recently changed to spontaneous respirations with FiO2 of 40 and 5 PEEP. Trach is clean and dry. Currently, oxygen saturation is at 100%. Stauffer to bedside and rectal bag in place. Discussed with RN. Chart reviewed. 10/19/20: Patient was seen and examined in the ICU today. His eyes were open and he was resting. On BiPAP via trach AVAPS/10/450/40 plus 5 PEEP. Trach is clean and dry. Has SCDs for DVT prophylaxis. Patient has rectal bag, Stauffer to bedside, and NG tube in place. Discussed with RN. Chart reviewed. 10/20/20 No acute events overnight. Patient seen and examined bedside. Transferred from the ICU. Continues to be nonverbal and not following much commands. Opens eyes to voice. Currently on BiPAP via trach on AVAPS setting 10/450/40 PEEP of 5. Trach site is clear. No signs of infections. Patient's chart, labs, images were reviewed and discussed with RN 10/21/2020 No acute events overnight. Patient seen and examined bedside. Afebrile. Continues to be nonverbal but opens eyes to voice. Currently on BiPAP. Patient's chart, labs, images were reviewed and discussed with RN. 10/22/2020 No acute events overnight. Patient seen examined bedside. Continue with argatr oban until warfarin goal INR of 4 and maintenance goal of 2-3. Please see resource conservation manager note. Pending appointing a legal guardian. Patient's chart, labs, images were reviewed and discussed with RN 10/23/2020 laparoscopic gastrostomy tube placement (specifically 24 F) Oct discharge planning in place once court appointed DPOA available Acute anemia Acute metabolic, infectious encephalopathy Acute respiratory failure Healthcare associated pneumonia Acute hypoglycemia Hypokalemia Elevated troponins Severe protein malnutrition Morbid obesity AAA, 4 cm, infrarenal History of diabetes mellitus type 2 History of dyslipidemia history of hypertension Patient seen examined bedside. argatroban until warfarin goal INR of 4 and maintenance goal of 2-3. Pending appointing a legal guardian. Patient's chart, labs, images were reviewed and discussed with RN bhoff Enteric tube with metallic tip in the left upper quadrant likely in the stomach. 10/24/2020 doing well on trach shield on a 24-hour basis./ blood gases shows no worsening hypercapnia while on trach shield. No apneic breathing reported. laparoscopic gastrostomy tube placement (specifically 24 F) Oct discharge planning in place once court appointed DPOA available Acute anemia Acute metabolic, infectious encephalopathy Acute respiratory failure Healthcare associated pneumonia Acute hypoglycemia Hypokalemia Elevated troponins Severe protein malnutrition Morbid obesity AAA, 4 cm, infrarenal History of diabetes mellitus type 2 History of dyslipidemia history of hypertension Patient seen examined bedside. argatroban until warfarin goal INR of 4 and maintenance goal of 2-3. Pending appointing a legal guardian. Patient's chart, labs, images were reviewed and discussed with KARY Cardenas Enteric tube with metallic tip in the left upper quadrant likely in the stomach. Home on plavix and warfarin D/C INITIAL PLAN TO [facility]END[facility]/ discharge planning in place once court appointed DPOA available D/W RN 10/25/2020 doing well on trach shield on a 24-hour basis./ blood gases shows no worsening hypercapnia while on trach shield. No apneic breathing reported. laparoscopic gastrostomy tube placement (specifically 24 F) Oct discharge planning in place once court appointed DPOA available Acute anemia Acute metabolic, infectious encephalopathy Acute respiratory failure Healthcare associated pneumonia Acute hypoglycemia Hypokalemia Elevated troponins Severe protein malnutrition Morbid obesity AAA, 4 cm, infrarenal History of diabetes mellitus type 2 History of dyslipidemia history of hypertension Patient seen examined bedside. argatroban until warfarin goal INR of 4 and maintenance goal of 2-3. Pending appointing a legal guardian. Patient's chart, labs, images were reviewed and discussed with KARY Cardenas Enteric tube with metallic tip in the left upper quadrant likely in the stomach. Home on plavix and warfarin D/C INITIAL PLAN TO [facility]END[facility]/ discharge planning in place once court appointed DPOA available D/W RN 10/26/2020 HGB 9.4 doing well on trach shield on a 24-hour basis./ blood gases shows no worsening hypercapnia while on trach shield. No apneic breathing reported. laparoscopic gastrostomy tube placement (specifically 24 F) Oct discharge planning in place once court appointed DPOA available Acute anemia Acute metabolic, infectious encephalopathy Acute respiratory failure Healthcare associated pneumonia Acute hypoglycemia Hypokalemia Elevated troponins Severe protein malnutrition Morbid obesity AAA, 4 cm, infrarenal History of diabetes mellitus type 2 History of dyslipidemia history of hypertension Patient seen examined bedside. argatroban until warfarin goal INR of 4 and maintenance goal of 2-3. Pending appointing a legal guardian. Patient's chart, labs, images were reviewed and discussed with KARY Cardenas Enteric tube with metallic tip in the left upper quadrant likely in the stomach. Home on plavix and warfarin D/C INITIAL PLAN TO [facility]/ discharge planning in place once court appointed DPOA available D/W RN 10/27/2020 HGB 9.4 doing well on trach shield on a 24-hour basis./ blood gases shows no worsening hypercapnia while on trach shield. No apneic breathing reported. laparoscopic gastrostomy tube placement (specifically 24 F) Oct discharge planning in place once court appointed DPOA available Acute anemia Acute metabolic, infectious encephalopathy Acute respiratory failure Healthcare associated pneumonia Acute hypoglycemia Hypokalemia Elevated troponins Severe protein malnutrition Morbid obesity AAA, 4 cm, infrarenal History of diabetes mellitus type 2 History of dyslipidemia history of hypertension Patient seen examined bedside. argatroban until warfarin goal INR of 4 and maintenance goal of 2-3. Pending appointing a legal guardian. Patient's chart, labs, images were reviewed and discussed with KARY Cardenas Enteric tube with metallic tip in the left upper quadrant likely in the stomach. Home on plavix and warfarin D/C INITIAL PLAN TO [facility]/ discharge planning in place once court appointed DPOA available D/W RN 10/28/2020 HGB 9.4 doing well on trach shield on a 24-hour basis./ blood gases shows no worsening hypercapnia while on trach shield. No apneic breathing reported. laparoscopic gastrostomy tube placement (specifically 24 F) Oct discharge planning in place once court appointed DPOA available Acute anemia Acute metabolic, infectious encephalopathy Acute respiratory failure Healthcare associated pneumonia Acute hypoglycemia Hypokalemia Elevated troponins Severe protein malnutrition Morbid obesity AAA, 4 cm, infrarenal History of diabetes mellitus type 2 History of dyslipidemia history of hypertension Patient seen examined bedside. argatroban until warfarin goal INR of 4 and maintenance goal of 2-3. Pending appointing a legal guardian. Patient's chart, labs, images were reviewed and discussed with KARY Cardenas Enteric tube with metallic tip in the left upper quadrant likely in the stomach. Home on plavix and warfarin D/C INITIAL PLAN TO [facility]/ discharge planning in place once court appointed DPOA available D/W RN Vitals/I&O Vitals/I&O: Vital Signs Date Time Temp Pulse Resp B/P (MAP) Pulse Ox O2 Delivery O2 Flow Rate FiO2 11/14/20 12:08 98 Tracheal Collar 8.0 11/14/20 10:38 100.1 88 20 132/85 (101) 100.1 I & O 11/13/20 11/13/20 11/14/20 15:00 23:00 07:00 Intake Total 840 ml 865 ml Output Total 375 ml 550 ml 300 ml Balance -375 ml 290 ml 565 ml Physical Exam Physical Exam: Neuro: actively posturing. Pulpils dialated but reactive to light and accomendation. Flaccidity in the lower extremity bilaterally. Equivocal Babinski. General: Other (actively posturing. No meaningful movements. ) Heart: Regular rate (SR), Other (distant heart sounds) Lungs: Other (Tracheostomy with trach shield. Deminished breath sounds.) Abdomen: Soft, Other (g tube in place) Extremities: No cyanosis, Other (2-3+ bilateral LE pitting edema) Skin: No rashes, No significant lesion Labs Labs: Laboratory Tests Test 11/13/20 18:27 11/13/20 23:50 11/14/20 05:30 11/14/20 05:55 Glucose (Fingerstick) 146 mg/dL (70-99) 161 mg/dL (70-99) 179 mg/dL (70-99) Prothrombin Time 20.6 SEC (11.7-14.0) Prothromb Time International Ratio 1.8 (0.8-1.1) Test 11/14/20 11:40 Glucose (Fingerstick) 204 mg/dL (70-99) Assessment and Plan Assessmemt and Plan Problems Medical Problems: (1) NSTEMI (non-ST elevated myocardial infarction) Status: Acute (2) Obtundation Status: Acute (3) Respiratory arrest Status: Acute Comment Review of Relevant I have reviewed the following items denise (where applicable) has been applied. Justifications for Admission Other Justification Hypoglycemia and altered mental status. JARRED PARMAR MD Nov 14, 2020 12:40
[2020-11-14 15:00] VITALS: BP 132/74
[2020-11-14] MEDS: WARFARIN 4 MG TABLET. PO SCH (17:02)
[2020-11-14 19:22] VITALS: BP 114/66
[2020-11-14] MEDS: ATORVASTATIN CALCIUM 40 MG TABLET. PO SCH (20:37)
[2020-11-14 22:50] VITALS: BP 112/61
[2020-11-15 03:39] VITALS: BP 129/72
[2020-11-15] MEDS: INSULIN LISPRO 300 UNITS/3 ML VIAL. SQ SCH ×3 (05:13→18:17)
[2020-11-15 07:00] VITALS: BP 134/73
[2020-11-15] MEDS: ASPIRIN CHEWABLE 81 MG TABLET. PO SCH (08:13)
[2020-11-15] MEDS: POTASSIUM BICARB 20 MEQ EFFERVESCENT TABLET. PEG SCH (08:13)
[2020-11-15] MEDS: ACETAMINOPHEN 650 MG/20.3 ML SOLUTION. PEG PRN (08:13)
[2020-11-15] MEDS: DOCUSATE 100 MG/10 ML SOLUTION. PO SCH (08:13)
[2020-11-15] MEDS: LANSOPRAZOLE 30 MG TAB.RAP.DR FT SCH (08:14)
[2020-11-15] MEDS: CLOPIDOGREL BISULFATE 75 MG TABLET PO SCH (08:14)
[2020-11-15] MEDS: FUROSEMIDE 40 MG/4 ML VIAL. IVP SCH (08:14)
[2020-11-15] MEDS: AMIODARONE HCL 200 MG TABLET. PO SCH (08:14)
[2020-11-15] MEDS: METOPROLOL TART IMMED RELEASE 25 MG TABLET. PO SCH ×2 (08:15→21:45)
[2020-11-15 10:54] VITALS: BP 93/54
--- NOTE | 2020-11-15 13:20 | NUR ---
SS following up with discharge planning. SS reviewed pt chart and discussed with pt RN. Pt is currently on trach shield at 35%. G-Tube in place. Pt on IV Lasix. COVID19 negative. Pt in need of DPOA or Guardianship for placement at LTACH or LTC facility. Sanitary Landfill Supervisor, Amarilis Matthews, assigned to case and is in need of proposed guardian prior to proceeding. Pt's Casandra de leon, , and her spouse Han Jovel are requesting to be proposed Guardians at this time. Sanitary Landfill Supervisor currently working on Petition. Sanitary Landfill Supervisor requiring medical letter from physician to complete Petition. Dr. Garcia notified and will complete letter and provide to SS once finished. Pt's niece has contacted [facility], ; fax [phone], and has set up a tour for tomorrow, 11/16/2020. SS phoned and faxed new referral to [facility]. Per [facility], they are willing to accept pt pending clinical and insurance approval as long as Guardianship is in process with the courts and family is agreeable to sign consents. SS will continue to follow for discharge planning.
--- NOTE | 2020-11-15 13:56 | PDOC ---
[employer] PROGRESS NOTE Date of Service DOS: DATE: 11/15/20 TIME: 13:55 Chief Complaint Chief Complaint Acute anemia Acute metabolic, infectious encephalopathy Acute respiratory failure Healthcare associated pneumonia Acute hypoglycemia Hypokalemia Elevated troponins Severe protein malnutrition Morbid obesity AAA, 4 cm, infrarenal History of diabetes mellitus type 2 History of dyslipidemia history of hypertension History of recent STEMI History of CAD History of peripheral artery disease History of JEANNE History of CVA History of paroxysmal atrial fibrillation Ischemic cardiomyopathy History of Present Illness History of Present Illness 11/15 Patient evaluated and examined at bedside. Remains minimally responsive. He is discharged ready. Just waiting for social issues to be sorted out. Possible discharge 11/14: No sort of clinical change overnight. Remains encephalopathic. Can discharge whenever guardianship and social issues mediated. 11/13: Afebrile. Still no meaningful response to any sort of interaction. Olga ins on trach. PEG tube. Complicated social situation. Afebrile. BP a little up today. Continues to remain encephalopathic off sedation requiring 8 L trach shield O2 with O2 saturations 91%. Tolerating PEG feeds with free water boluses. INR 2.8. Discussed with anabel Guajardo she is reaching out to the rest of the family. 11/11: Afebrile. No meaningful following of commands, opens eyes. Requires 8L trach shield O2 to maintain O2 saturations 90%. No residuals on PEG tube feeds. Discussed with anabel Guajardo bedside she is going to reach out to the rest of the family now the family has been located. 11/10: Afebrile. Continues to be encephalopathic no meaningful eye contact movements not following commands. Requiring 8 L trach shield O2 to maintain sat urations 91%. No residuals on tube feeds 45 cc/h. INR 2.8. Throughout heroic efforts by social work estranged family has been found and has a niece who will be visiting sometime potentially later today or tomorrow 11/09: Afebrile. Still encephalopathic not making any meaningful eye contact or movements not following commands. Waiting for guardianship. 8 L trach shield O2. Tolerating tube feeds with no residuals 45 cc/h. INR 2.6 11/08: Afebrile. Opens eyes but no meaningful contact not following commands. Requiring 8 L trach shield O2 mask. 11/07: Not responsive to stimuli, not making eye contact. Afebrile. Seen on 8 L trach collar canula. Hb 9.1 Renal labs stable INR 3.1. 11/06: Patient not meaningfully responding well. On trach shield and BiPAP as needed on trach. PEG feeds with no significant residuals. 11/05: Patient is still unresponsive. Pupils reactive to light and accommodation. No meaningful movements. Actively posturing at bed side. Has peg feeding at 45cc/hr. Trach shield at 8L and BIPAP PRN at 35%. There is an open wound at the site of the peg insertion. Wound care, Dr. Cristobal is consulted. 11/04: Patient is still unresponsive. Pupils reactive to light and accommodation. Actively posturing at bedside. No meaningful movements. Has peg feeding at 45cc/hr. Trach shield at 8L and BIPAP PRN at 35%. 11/03: Patient seen and examined. Discussed with RN and social media strategist. Chart reviewed. Patient is still unresponsive. Actively decorticate posturing at bedside. Eyes rolled upward. No meaningful movements. Has peg feeding at 45cc/hr. The bleeding at the peg insertion site has stopped. 11/02: Patient seen and examined. Chart reviewd. Discussed with RN and social media strategist. Patient is still unresponsive. No meaningful movements. Actively decorticate posturing at bedside. Has peg feeding running at 45cc/hr. Some bleeding at the peg insertion site. 11/01: Patient seen and examined. Discussed with social media strategist and RN. Patient is still unresponsive. No meaningful movements. Peg feeding is running at 45cc/hr. Patient is actively posturing at bed side. Trach shield at 8L and BIPAP PRN at 35%. 10/31: Patient seen and examined. Chart reviewed. Discussed with social media strategist and RN. Patient still unresponsive. Patient actively posturing at bed side. Has peg running at 45cc/hr. Vestibulo-ocular reflex intact. 10/30: Patient seen and examined. Discussed with social media strategist and RN. Chart reviewed. Patient actively posturing at bed side. Has peg running at 45cc/hr. Mr Andrews is a 70-year-old male with a recent prolonged hospitalization for STEMI and respiratory failure for which she was treated with arterial thrombolysis for a right leg popliteal artery aneurysm and also had left heart cath with placement of a stent in the LAD and RCA comes in today after he was found obtunded at his alf facility. Apparently according to the nursing facility patient was in his usual state of health and he was conversational but then became altered. His blood glucose was found to be in the 30s. Glucose tabs and glucagon was given in route and his GCS reported at 6. Upon arrival patient's mental status did not improve and he was eventually intubated for airway protection. Of note EMS was bagging the patient through the nasal access. In the ED, patient was placed on a vent and pulmonology was consulted. Patient was also taken to the CT scanner for sanders scanning. Patient was started to wake up on the vent and sedation was ordered. 09/23: Patient examined at bedside. Intubated. Not on any sedation but unresponsive. Neurology consult in place. 09/24: Patient seen and examined at bedside. Remains intubated he is off sedation but still remains unresponsive. Planning for MRI brain in the morning. Further plan to be determined by MRI. 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 09/25: Afebrile, currently breathing on ventilator with FiO2 50%, PEEP 5. Had CODE BLUE in ICU this morning; received 2 rounds of CPR, epinephrine, and atropine with ROSC. MRI brain negative. Made DNR, and after discussion with Dr. Rubalcava he agrees. 09/26:: Afebrile. Still on vent, with FiO2 45%, PEEP 5. After discussion with Dr. Rubalcava yesterday, patient was made DNR. In the ED is likely a poor candidate for weaning trials may need trach in near future if no significant improvement. 09/27:: Afebrile. On vent with FiO2 40%, PEEP 5. Potassium 2.8 today, will replace. Warfarin has been resumed. Discussed with pharmacy, will resume aspirin and Plavix. May need tracheostomy by the end of the week if no improvement in mental status. 09/28:: Afebrile. On ventilator with FiO2 40%, PEEP 5. Warfarin has been resumed; INR 1.3 today. Some morning labs still pending; hemoglobin yesterday 7.3, will continue to monitor. Continue IV cefepime and supportive care. 09/29: Afebrile. Breathing on vent with FiO2 40%, PEEP 5. INR 1.2 today; pharmacy to help with warfarin dosing. White count within normal range, renal function stable. Spoke with pharmacy about cefepime 1 g every 8 hours dosing; this has been changed to cefepime 2 g every 8 hours. 09/30: Afebrile. Currently breathing on vent with FiO2 40%, PEEP 5. Continue antibiotics, cefepime 2 g every 8 hours. INR 1.4; continue warfarin dosing per pharmacy. Possible tracheostomy at some point. Critical care time 30 minutes reviewing charts, labs, examination, discussion with RN. 10/01: T-max 100.3 F. On ventilator with FiO2 40%, PEEP 5. Continue antibiotics, cefepime 2 g every 8 hours. INR 1.4, still subtherapeutic; continue warfarin dosing per pharmacy. Possible tracheostomy at some point. 10/02: No acute events overnight. Patient saturating 99% on vent settings of 10/450/40/5. Patient will likely need a trach and PEG at some point. We will hold warfarin and start 2 units PRBC transfusion. Patient's chart, labs, images were reviewed and discussed with RN 10/03: No acute events overnight. Patient sat 100% on minimal vent settings. No sedation at this point and patient is opening his eyes spontaneously. Not much response or spontaneous movements. Surgery has been consulted for tracheostomy. Patient will also likely need a PEG tube. 10/04: No acute events overnight. Patient saturating 90% on minimal vent settings. T-max 100.4 overnight. Plan for trach tomorrow with surgery. Patient's chart, labs, images were reviewed and discussed with RN 10/05: No acute events overnight. Patient saturating 99% on minimal vent settings. Plan for tracheostomy today. Consent is provided by authorization by 2 physicians due to patient having no close relatives or DPOA. Will resume heparin and warfarin bridging tomorrow after tracheostomy 10/07: No acute events overnight. Patient seen and examined bedside. On trach vent. Saturating 99%. Pending GI evaluation for possible PEG placement after discussing with cardiology whether to continue with Plavix. Possibly place PEG if patient is only on aspirin and stopping argatroban. 10/08: No acute events overnight. Patient continues to be on trach mechanical vent. Saturating 100%. Pending decision from GI whether to proceed with PEG placement depending on the type of anticoagulation patient will be on. 10/09: No overnight events. On trach with vent support 40% FiO2 PEEP of 5. Currently argatroban and propofol for minimal sedation. When sedation is weaned he has no meaningful movements but has pulled at his tracheostomy site. Unable to hold plavix due to recently placed stents. 10/10: Afebrile today. On trach with vent support 40% FiO2 PEEP of 5. Continue argatroban and changed to Aggrastat in anticipation of surgical consultation for potential laparoscopic PEG placement. INR 1.6. Hb greater than 9 no significant neurologic recovery today. 10/11: Afebrile. On trach with vent support 40% FiO2 PEEP of 5. INR 1.8. Not making meaningful eye contact. Labs otherwise stable. 10/12: Afebrile. Trach with vent support 40% FiO2 PEEP five O2 saturations 92%. INR 1.8, mag 1.8, Hb 8.4. Not following commands. Tentative plans for surgical PEG next week. 10/13: Afebrile. Trach with vent support 40% FiO2 PEEP 5. Eyes open, not tracking or following commands. Holding Plavix. On argatroban. 10/14: Afebrile. Trach with vent support 40% FiO2 PEEP of 5. Will open eyes intermittently not necessarily to voice. Good urine output. Labs stable. 10/15: Afebrile overnight. Trach with vent AC 40% fio2 PEEP 5. Had a very large bowel movement. Still not tracking. Hb 9, INR 1.7, glucose 144. Tentative plan for PEG 10/18/2020 CC time 30 minutes 10/16/20: Patient seen and examined in the ICU. He was resting and still on vent via trach. Has NG running via Dobhoff, feeding at 40cc/hr. AC/10/450/40% plus 5 PEEP. Discussed with RN. Chart reviewed. 10/17/20: Patient was seen and examined in the ICU today. Still on vent via trach at AC/10/450/40 plus 5 PEEP. While examined, patient was at 100% O2 saturation. Has SCDs on for DVT prophylaxis. Stauffer catheter in place. On IV argatroban. R subclavian triple lumen in place. Dobhoff running at 40cc/hr. Discussed with RN. Chart reviewed. 10/18/20: Patient seen and examined in ICU. His eyes are open. On vent via trach with settings that were recently changed to spontaneous respirations with FiO2 of 40 and 5 PEEP. Trach is clean and dry. Currently, oxygen saturation is at 1 00%. Stauffer to bedside and rectal bag in place. Discussed with RN. Chart reviewed. 10/19/20: Patient was seen and examined in the ICU today. His eyes were open and he was resting. On BiPAP via trach AVAPS/10/450/40 plus 5 PEEP. Trach is clean and dry. Has SCDs for DVT prophylaxis. Patient has rectal bag, Stauffer to bedside, and NG tube in place. Discussed with RN. Chart reviewed. 10/20/20 No acute events overnight. Patient seen and examined bedside. Transferred from the ICU. Continues to be nonverbal and not following much commands. Opens eyes to voice. Currently on BiPAP via trach on AVAPS setting 10/450/40 PEEP of 5. Trach site is clear. No signs of infections. Patient's chart, labs, images were reviewed and discussed with RN 10/21/2020 No acute events overnight. Patient seen and examined bedside. Afebrile. Continues to be nonverbal but opens eyes to voice. Currently on BiPAP. Patient's chart, labs, images were reviewed and discussed with RN. 10/22/2020 No acute events overnight. Patient seen examined bedside. Continue with argatroban until warfarin goal INR of 4 and maintenance goal of 2-3. Please see putaway driver note. Pending appointing a legal guardian. Patient's chart, labs, images were reviewed and discussed with RN 10/23/2020 laparoscopic gastrostomy tube placement (specifically 24 F) Oct discharge planning in place once court appointed DPOA available Acute anemia Acute metabolic, infectious encephalopathy Acute respiratory failure Healthcare associated pneumonia Acute hypoglycemia Hypokalemia Elevated troponins Severe protein malnutrition Morbid obesity AAA, 4 cm, infrarenal History of diabetes mellitus type 2 History of dyslipidemia history of hypertension Patient seen examined bedside. argatroban until warfarin goal INR of 4 and maintenance goal of 2-3. Pending appointing a legal guardian. Patient's chart, labs, images were reviewed and discussed with RN Ronald Enteric tube with metallic tip in the left upper quadrant likely in the stomach. 10/24/2020 doing well on trach shield on a 24-hour basis./ blood gases shows no worsening hypercapnia while on trach shield. No apneic breathing reported. laparoscopic gastrostomy tube placement (specifically 24 F) SEPT 8TH discharge planning in place once court appointed DPOA available Acute anemia Acute metabolic, infectious encephalopathy Acute respiratory failure Healthcare associated pneumonia Acute hypoglycemia Hypokalemia Elevated troponins Severe protein malnutrition Morbid obesity AAA, 4 cm, infrarenal History of diabetes mellitus type 2 History of dyslipidemia history of hypertension Patient seen examined bedside. argatroban until warfarin goal INR of 4 and maintenance goal of 2-3. Pending appointing a legal guardian. Patient's chart, labs, images were reviewed and discussed with KARY Cardenas Enteric tube with metallic tip in the left upper quadrant likely in the stomach. Home on plavix and warfarin D/C INITIAL PLAN TO [facility] PENDING/ discharge planning in place once court appointed DPOA available D/W RN 10/25/2020 doing well on trach shield on a 24-hour basis./ blood gases shows no worsening hypercapnia while on trach shield. No apneic breathing reported. laparoscopic gastrostomy tube placement (specifically 24 F) Oct discharge planning in place once court appointed DPOA available Acute anemia Acute metabolic, infectious encephalopathy Acute respiratory failure Healthcare associated pneumonia Acute hypoglycemia Hypokalemia Elevated troponins Severe protein malnutrition Morbid obesity AAA, 4 cm, infrarenal History of diabetes mellitus type 2 History of dyslipidemia history of hypertension Patient seen examined bedside. argatroban until warfarin goal INR of 4 and maintenance goal of 2-3. Pending appointing a legal guardian. Patient's chart, labs, images were reviewed and discussed with KARY Cardenas Enteric tube with metallic tip in the left upper quadrant likely in the stomach. Home on plavix and warfarin D/C INITIAL PLAN TO [facility] PENDING/ discharge planning in place once court appointed DPOA available D/W RN 10/26/2020 HGB 9.4 doing well on trach shield on a 24-hour basis./ blood gases shows no worsening hypercapnia while on trach shield. No apneic breathing reported. laparoscopic gastrostomy tube placement (specifically 24 F) Oct discharge planning in place once court appointed DPOA available Acute anemia Acute metabolic, infectious encephalopathy Acute respiratory failure Healthcare associated pneumonia Acute hypoglycemia Hypokalemia Elevated troponins Severe protein malnutrition Morbid obesity AAA, 4 cm, infrarenal History of diabetes mellitus type 2 History of dyslipidemia history of hypertension Patient seen examined bedside. argatroban until warfarin goal INR of 4 and maintenance goal of 2-3. Pending appointing a legal guardian. Patient's chart, labs, images were reviewed and discussed with KARY Cardenas Enteric tube with metallic tip in the left upper quadrant likely in the stomach. Home on plavix and warfarin D/C INITIAL PLAN TO [facility] PENDING/ discharge planning in place once court appointed DPOA available D/W RN 10/27/2020 HGB 9.4 doing well on trach shield on a 24-hour basis./ blood gases shows no worsening hypercapnia while on trach shield. No apneic breathing reported. laparoscopic gastrostomy tube placement (specifically 24 F) Oct discharge planning in place once court appointed DPOA available Acute anemia Acute metabolic, infectious encephalopathy Acute respiratory failure Healthcare associated pneumonia Acute hypoglycemia Hypokalemia Elevated troponins Severe protein malnutrition Morbid obesity AAA, 4 cm, infrarenal History of diabetes mellitus type 2 History of dyslipidemia history of hypertension Patient seen examined bedside. argatroban until warfarin goal INR of 4 and maintenance goal of 2-3. Pending appointing a legal guardian. Patient's chart, labs, images were reviewed and discussed with KARY Cardenas Enteric tube with metallic tip in the left upper quadrant likely in the stomach. Home on plavix and warfarin D/C INITIAL PLAN TO [facility] PENDING/ discharge planning in place once court appointed DPOA available D/W RN 10/28/2020 HGB 9.4 doing well on trach shield on a 24-hour basis./ blood gases shows no worsening hypercapnia while on trach shield. No apneic breathing reported. laparoscopic gastrostomy tube placement (specifically 24 F) Oct discharge planning in place once court appointed DPOA available Acute anemia Acute metabolic, infectious encephalopathy Acute respiratory failure Healthcare associated pneumonia Acute hypoglycemia Hypokalemia Elevated troponins Severe protein malnutrition Morbid obesity AAA, 4 cm, infrarenal History of diabetes mellitus type 2 History of dyslipidemia history of hypertension Patient seen examined bedside. argatroban until warfarin goal INR of 4 and maintenance goal of 2-3. Pending appointing a legal guardian. Patient's chart, labs, images were reviewed and discussed with KARY Cardenas Enteric tube with metallic tip in the left upper quadrant likely in the stomach. Home on plavix and warfarin D/C INITIAL PLAN TO [facility] PENDING/ discharge planning in place once court appointed DPOA available D/W RN Vitals/I&O Vitals/I&O: Vital Signs Date Time Temp Pulse Resp B/P (MAP) Pulse Ox O2 Delivery O2 Flow Rate FiO2 11/15/20 12:27 99 Tracheal Collar 8.0 11/15/20 10:54 99.4 90 24 93/54 (67) 99.4 I & O 11/14/20 11/14/20 11/15/20 15:00 23:00 07:00 Intake Total 1660 ml Output Total 650 ml 400 ml Balance -650 ml 1260 ml Physical Exam Physical Exam: Neuro: actively posturing. Pulpils dialated but reactive to light and accomendation. Flaccidity in the lower extremity bilaterally. Equivocal Babinski. General: Other (actively posturing. No meaningful movements. ) Heart: Regular rate (SR), Other (distant heart sounds) Lungs: Other (Tracheostomy with trach shield. Deminished breath sounds.) Abdomen: Soft, Other (g tube in place) Extremities: No cyanosis, Other (2-3+ bilateral LE pitting edema) Skin: No rashes, No significant lesion Labs Labs: Laboratory Tests Test 11/14/20 18:24 11/14/20 23:30 11/15/20 05:06 11/15/20 11:18 Glucose (Fingerstick) 160 mg/dL (70-99) 170 mg/dL (70-99) 170 mg/dL (70-99) 187 mg/dL (70-99) Assessment and Plan Assessmemt and Plan Problems Medical Problems: (1) NSTEMI (non-ST elevated myocardial infarction) Status: Acute (2) Obtundation Status: Acute (3) Respiratory arrest Status: Acute Comment Review of Relevant I have reviewed the following items denise (where applicable) has been applied. Medications: Current Medications Medications (Trade) Dose Ordered Sig/Dru Route PRN Reason Start Time Stop Time Status Last Admin Dose Admin Warfarin Sodium (Coumadin) 4 mg DAILY16 PO 11/14/20 16:00 11/14/20 17:02 Justifications for Admission Other Justification Hypoglycemia and altered mental status. JARRED PARMAR MD Nov 15, 2020 13:56
[2020-11-15 15:00] VITALS: BP 92/59
--- NOTE | 2020-11-15 15:40 | NUR ---
Wound/Ostomy Care Wound Type/Assessment: Wound care consult for PEG tube wound. Pt has a slit on medial side of peg tube insertion site that has a suture in it as well as slough and moderate drainage. Pt also has a blood filled blister to left dorsal great toe that was pictured and measured. Treatment Recommendations/Plan: Cleanse wounds. [place] great toe with skin prep daily. Cleanse around Peg tube, cover open wound and maceration with aquacel ag and cover with foam sliced to fit around peg tube. Change every 2-3 days and PRN for drainage. Education provided: Pt unable to retain teaching due to mental status. Offloading surface/device: Pt turned to left side with wedge, heels floated on pillows Recommended Referrals/Tests: na Discharge Recommendations for dressings: see above
[2020-11-15] MEDS: WARFARIN 4 MG TABLET. PO SCH (15:58)
[2020-11-15 19:34] VITALS: BP 137/82
[2020-11-15] MEDS: ATORVASTATIN CALCIUM 40 MG TABLET. PO SCH (21:44)
[2020-11-15 22:24] VITALS: BP 109/58
[2020-11-16 02:21] VITALS: BP 140/80
[2020-11-16] MEDS: INSULIN LISPRO 300 UNITS/3 ML VIAL. SQ SCH ×5 (06:00→23:48)
[2020-11-16 07:19] VITALS: BP 147/92
[2020-11-16 07:29] LABS: PROTHROMBIN TIME PATIENT 21.4 SEC (11.7-14.0)
[2020-11-16] MEDS: DOCUSATE 100 MG/10 ML SOLUTION. PO SCH (08:07)
[2020-11-16] MEDS: METOPROLOL TART IMMED RELEASE 25 MG TABLET. PO SCH ×2 (08:07→21:07)
[2020-11-16] MEDS: AMIODARONE HCL 200 MG TABLET. PO SCH (08:08)
[2020-11-16] MEDS: ASPIRIN CHEWABLE 81 MG TABLET. PO SCH (08:08)
[2020-11-16] MEDS: CLOPIDOGREL BISULFATE 75 MG TABLET PO SCH (08:08)
[2020-11-16] MEDS: LANSOPRAZOLE 30 MG TAB.RAP.DR FT SCH (08:08)
[2020-11-16] MEDS: POTASSIUM BICARB 20 MEQ EFFERVESCENT TABLET. PEG SCH (08:08)
[2020-11-16] MEDS: FUROSEMIDE 40 MG/4 ML VIAL. IVP SCH (08:09)
--- NOTE | 2020-11-16 09:09 | PDOC ---
[employer] PROGRESS NOTE Date of Service DOS: DATE: 11/16/20 TIME: 09:07 Chief Complaint Chief Complaint Acute anemia Acute metabolic, infectious encephalopathy Acute hypoxic respiratory failure Healthcare associated pneumonia Acute hypoglycemia Hypokalemia Elevated troponins Severe protein malnutrition Morbid obesity AAA, 4 cm, infrarenal History of diabetes mellitus type 2 History of dyslipidemia history of hypertension History of recent STEMI History of CAD History of peripheral artery disease History of JEANNE History of CVA History of paroxysmal atrial fibrillation Ischemic cardiomyopathy History of Present Illness History of Present Illness 11/16 Patient evaluated and examined at bedside. Patient's niece at bedside discussed case at length with her and ongoing plan. He does present as movement in his upper extremities today. He did open his eyes to his niece's voice earlier. Continue current plan of care. 11/15 Patient evaluated and examined at bedside. Remains minimally responsive. He is discharged ready. Just waiting for social issues to be sorted out. Possible discharge 11/14: No sort of clinical change overnight. Remains encephalopathic. Can discharge whenever guardianship and social issues mediated. 11/13: Afebrile. Still no meaningful response to any sort of interaction. Remains on trach. PEG tube. Complicated social situation. Afebrile. BP a little up today. Continues to remain encephalopathic off sedation requiring 8 L trach shield O2 with O2 saturations 91%. Tolerating PEG feeds with free water boluses. INR 2.8. Discussed with anabel Guajardo she is reaching out to the rest of the family. 11/11: Afebrile. No meaningful following of commands, opens eyes. Requires 8L trach shield O2 to maintain O2 saturations 90%. No residuals on PEG tube feeds. Discussed with anabel Guajardo bedside she is going to reach out to the rest of the family now the family has been located. 11/10: Afebrile. Continues to be encephalopathic no meaningful eye contact movements not following commands. Requiring 8 L trach shield O2 to maintain saturations 91%. No residuals on tube feeds 45 cc/h. INR 2.8. Throughout heroic efforts by social work estranged family has been found and has a niece who will be visiting sometime potentially later today or tomorrow 11/09: Afebrile. Still encephalopathic not making any meaningful eye contact or movements not following commands. Waiting for guardianship. 8 L trach shield O2. Tolerating tube feeds with no residuals 45 cc/h. INR 2.6 11/08: Afebrile. Opens eyes but no meaningful contact not following commands. Requiring 8 L trach shield O2 mask. 11/07: Not responsive to stimuli, not making eye contact. Afebrile. Seen on 8 L trach collar canula. Hb 9.1 Renal labs stable INR 3.1. 11/06: Patient not meaningfully responding well. On trach shield and BiPAP as needed on trach. PEG feeds with no significant residuals. 11/05: Patient is still unresponsive. Pupils reactive to light and accommodation. No meaningful movements. Actively posturing at bed side. Has peg feeding at 45cc/hr. Trach shield at 8L and BIPAP PRN at 35%. There is an open wound at the site of the peg insertion. Wound care, Dr. Cristobal is consulted. 11/04: Patient is still unresponsive. Pupils reactive to light and accommodation. Actively posturing at bedside. No meaningful movements. Has peg feeding at 45cc/hr. Trach shield at 8L and BIPAP PRN at 35%. 11/03: Patient seen and examined. Discussed with RN and social work faculty member. Chart reviewed. Patient is still unresponsive. Actively decorticate posturing at bedside. Eyes rolled upward. No meaningful movements. Has peg feeding at 45cc/hr. The bleeding at the peg insertion site has stopped. 11/02: Patient seen and examined. Chart reviewd. Discussed with RN and social work faculty member. Patient is still unresponsive. No meaningful movements. Actively decorticate posturing at bedside. Has peg feeding running at 45cc/hr. Some bleeding at the peg insertion site. 11/01: Patient seen and examined. Discussed with social work faculty member and RN. Patient is still unresponsive. No meaningful movements. Peg feeding is running at 45cc/hr. Patient is actively posturing at bed side. Trach shield at 8L and BIPAP PRN at 35%. 10/31: Patient seen and examined. Chart reviewed. Discussed with social work faculty member and RN. Patient still unresponsive. Patient actively posturing at bed side. Has peg running at 45cc/hr. Vestibulo-ocular reflex intact. 10/30: Patient seen and examined. Discussed with social work faculty member and RN. Chart reviewed. Patient actively posturing at bed side. Has peg running at 45cc/hr. Mr Andrews is a 70-year-old male with a recent prolonged hospitalization for STEMI and respiratory failure for which she was treated with arterial thrombolys is for a right leg popliteal artery aneurysm and also had left heart cath with placement of a stent in the LAD and RCA comes in today after he was found obtunded at his detention facility. Apparently according to the nursing facility patient was in his usual state of health and he was conversational but then became altered. His blood glucose was found to be in the 30s. Glucose tabs and glucagon was given in route and his GCS reported at 6. Upon arrival patient's mental status did not improve and he was eventually intubated for airway protection. Of note EMS was bagging the patient through the nasal access. In the ED, patient was placed on a vent and pulmonology was consulted. Patient was also taken to the CT scanner for sanders scanning. Patient was started to wake up on the vent and sedation was ordered. 09/23: Patient examined at bedside. Intubated. Not on any sedation but unresponsive. Neurology consult in place. 09/24: Patient seen and examined at bedside. Remains intubated he is off sedation but still remains unresponsive. Planning for MRI brain in the morning. Further plan to be determined by MRI. 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 09/25: Afebrile, currently breathing on ventilator with FiO2 50%, PEEP 5. Had CODE BLUE in ICU this morning; received 2 rounds of CPR, epinephrine, and atropine with ROSC. MRI brain negative. Made DNR, and after discussion with Dr. Rubalcava he agrees. 09/26:: Afebrile. Still on vent, with FiO2 45%, PEEP 5. After discussion with Dr. Rubalcava yesterday, patient was made DNR. In the ED is likely a poor candidate for weaning trials may need trach in near future if no significant improvement. 09/27:: Afebrile. On vent with FiO2 40%, PEEP 5. Potassium 2.8 today, will replace. Warfarin has been resumed. Discussed with pharmacy, will resume aspirin and Plavix. May need tracheostomy by the end of the week if no impro vement in mental status. 09/28:: Afebrile. On ventilator with FiO2 40%, PEEP 5. Warfarin has been resumed; INR 1.3 today. Some morning labs still pending; hemoglobin yesterday 7.3, will continue to monitor. Continue IV cefepime and supportive care. 09/29: Afebrile. Breathing on vent with FiO2 40%, PEEP 5. INR 1.2 today; pharmacy to help with warfarin dosing. White count within normal range, renal function stable. Spoke with pharmacy about cefepime 1 g every 8 hours dosing; this has been changed to cefepime 2 g every 8 hours. 09/30: Afebrile. Currently breathing on vent with FiO2 40%, PEEP 5. Continue antibiotics, cefepime 2 g every 8 hours. INR 1.4; continue warfarin dosing per pharmacy. Possible tracheostomy at some point. Critical care time 30 minutes reviewing charts, labs, examination, discussion with RN. 10/01: T-max 100.3 F. On ventilator with FiO2 40%, PEEP 5. Continue antibiotics, cefepime 2 g every 8 hours. INR 1.4, still subtherapeutic; continue warfarin dosing per pharmacy. Possible tracheostomy at some point. 10/02: No acute events overnight. Patient saturating 99% on vent settings of 10/450/40/5. Patient will likely need a trach and PEG at some point. We will hold warfarin and start 2 units PRBC transfusion. Patient's chart, labs, images were reviewed and discussed with RN 10/03: No acute events overnight. Patient sat 100% on minimal vent settings. No sedation at this point and patient is opening his eyes spontaneously. Not much response or spontaneous movements. Surgery has been consulted for tracheostomy. Patient will also likely need a PEG tube. 10/04: No acute events overnight. Patient saturating 90% on minimal vent settings. T-max 100.4 overnight. Plan for trach tomorrow with surgery. Patient's chart, labs, images were reviewed and discussed with RN 10/05: No acute events overnight. Patient saturating 99% on minimal vent settings. Plan for tracheostomy today. Consent is provided by authorization by 2 physicians due to patient having no close relatives or DPOA. Will resume heparin and warfarin bridging tomorrow after tracheostomy 10/07: No acute events overnight. Patient seen and examined bedside. On trach vent. Saturating 99%. Pending GI evaluation for possible PEG placement after discussing with cardiology whether to continue with Plavix. Possibly place PEG if patient is only on aspirin and stopping argatroban. 10/08: No acute events overnight. Patient continues to be on trach mechanical vent. Saturating 100%. Pending decision from GI whether to proceed with PEG p lacement depending on the type of anticoagulation patient will be on. 10/09: No overnight events. On trach with vent support 40% FiO2 PEEP of 5. Currently argatroban and propofol for minimal sedation. When sedation is weaned he has no meaningful movements but has pulled at his tracheostomy site. Unable to hold plavix due to recently placed stents. 10/10: Afebrile today. On trach with vent support 40% FiO2 PEEP of 5. Continue argatroban and changed to Aggrastat in anticipation of surgical consultation for potential laparoscopic PEG placement. INR 1.6. Hb greater than 9 no significant neurologic recovery today. 10/11: Afebrile. On trach with vent support 40% FiO2 PEEP of 5. INR 1.8. Not making meaningful eye contact. Labs otherwise stable. 10/12: Afebrile. Trach with vent support 40% FiO2 PEEP five O2 saturations 92%. INR 1.8, mag 1.8, Hb 8.4. Not following commands. Tentative plans for surgical PEG next week. 10/13: Afebrile. Trach with vent support 40% FiO2 PEEP 5. Eyes open, not tracking or following commands. Holding Plavix. On argatroban. 10/14: Afebrile. Trach with vent support 40% FiO2 PEEP of 5. Will open eyes intermittently not necessarily to voice. Good urine output. Labs stable. 10/15: Afebrile overnight. Trach with vent AC 40% fio2 PEEP 5. Had a very large bowel movement. Still not tracking. Hb 9, INR 1.7, glucose 144. Tentative plan for PEG 10/18/2020 CC time 30 minutes 10/16/20: Patient seen and examined in the ICU. He was resting and still on vent via trach. Has NG running via Dobhoff, feeding at 40cc/hr. AC/10/450/40% plus 5 PEEP. Discussed with RN. Chart reviewed. 10/17/20: Patient was seen and examined in the ICU today. Still on vent via trach at AC/10/450/40 plus 5 PEEP. While examined, patient was at 100% O2 saturation. Has SCDs on for DVT prophylaxis. Stauffer catheter in place. On IV argatroban. R subclavian triple lumen in place. Dobhoff running at 40cc/hr. Discussed with RN. Chart reviewed. 10/18/20: Patient seen and examined in ICU. His eyes are open. On vent via trach with settings that were recently changed to spontaneous respirations with FiO2 of 40 and 5 PEEP. Trach is clean and dry. Currently, oxygen saturation is at 100%. Stauffer to bedside and rectal bag in place. Discussed with RN. Chart reviewed. 10/19/20: Patient was seen and examined in the ICU today. His eyes were open and he was resting. On BiPAP via trach AVAPS/10/450/40 plus 5 PEEP. Trach is clean and dry. Has SCDs for DVT prophylaxis. Patient has rectal bag, Stauffer to bedside, and NG tube in place. Discussed with RN. Chart reviewed. 10/20/20 No acute events overnight. Patient seen and examined bedside. Transferred from the ICU. Continues to be nonverbal and not following much commands. Opens eyes to voice. Currently on BiPAP via trach on AVAPS setting 10/450/40 PEEP of 5. Trach site is clear. No signs of infections. Patient's chart, labs, images were reviewed and discussed with RN 10/21/2020 No acute events overnight. Patient seen and examined bedside. Afebrile. Continues to be nonverbal but opens eyes to voice. Currently on BiPAP. Patient's chart, labs, images were reviewed and discussed with RN. 10/22/2020 No acute events overnight. Patient seen examined bedside. Continue with argatroban until warfarin goal INR of 4 and maintenance goal of 2-3. Please see databases software consultant note. Pending appointing a legal guardian. Patient's chart, labs, images were reviewed and discussed with RN 10/23/2020 laparoscopic gastrostomy tube placement (specifically 24 F) Oct discharge planning in place once court appointed DPOA available Acute anemia Acute metabolic, infectious encephalopathy Acute respiratory failure Healthcare associated pneumonia Acute hypoglycemia Hypokalemia Elevated troponins Severe protein malnutrition Morbid obesity AAA, 4 cm, infrarenal History of diabetes mellitus type 2 History of dyslipidemia history of hypertension Patient seen examined bedside. argatroban until warfarin goal INR of 4 and maintenance goal of 2-3. Pending appointing a legal guardian. Patient's chart, labs, images were reviewed and discussed with RN Doloreoff Enteric tube with metallic tip in the left upper quadrant likely in the stomach. 10/24/2020 doing well on trach shield on a 24-hour basis./ blood gases shows no worsening hypercapnia while on trach shield. No apneic breathing reported. laparoscopic gastrostomy tube placement (specifically 24 F) Oct discharge planning in place once court appointed DPOA available Acute anemia Acute metabolic, infectious encephalopathy Acute respiratory failure Healthcare associated pneumonia Acute hypoglycemia Hypokalemia Elevated troponins Severe protein malnutrition Morbid obesity AAA, 4 cm, infrarenal History of diabetes mellitus type 2 History of dyslipidemia history of hypertension Patient seen examined bedside. argatroban until warfarin goal INR of 4 and maintenance goal of 2-3. Pending appointing a legal guardian. Patient's chart, labs, images were reviewed and discussed with KARY Cardenas Enteric tube with metallic tip in the left upper quadrant likely in the stomach. Home on plavix and warfarin D/C INITIAL PLAN TO [facility] PEND[facility]/ discharge planning in place once court appointed DPOA available D/W RN 10/25/2020 doing well on trach shield on a 24-hour basis./ blood gases shows no worsening hypercapnia while on trach shield. No apneic breathing reported. laparoscopic gastrostomy tube placement (specifically 24 F) Oct discharge planning in place once court appointed DPOA available Acute anemia Acute metabolic, infectious encephalopathy Acute respiratory failure Healthcare associated pneumonia Acute hypoglycemia Hypokalemia Elevated troponins Severe protein malnutrition Morbid obesity AAA, 4 cm, infrarenal History of diabetes mellitus type 2 History of dyslipidemia history of hypertension Patient seen examined bedside. argatroban until warfarin goal INR of 4 and maintenance goal of 2-3. Pending appointing a legal guardian. Patient's chart, labs, images were reviewed and discussed with KARY Cardenas Enteric tube with metallic tip in the left upper quadrant likely in the stomach. Home on plavix and warfarin D/C INITIAL PLAN TO [facility]END[facility]/ discharge planning in place once court appointed DPOA available D/W RN 10/26/2020 HGB 9.4 doing well on trach shield on a 24-hour basis./ blood gases shows no worsening hypercapnia while on trach shield. No apneic breathing reported. laparoscopic gastrostomy tube placement (specifically 24 F) Oct discharge planning in place once court appointed DPOA available Acute anemia Acute metabolic, infectious encephalopathy Acute respiratory failure Healthcare associated pneumonia Acute hypoglycemia Hypokalemia Elevated troponins Severe protein malnutrition Morbid obesity AAA, 4 cm, infrarenal History of diabetes mellitus type 2 History of dyslipidemia history of hypertension Patient seen examined bedside. argatroban until warfarin goal INR of 4 and maintenance goal of 2-3. Pending appointing a legal guardian. Patient's chart, labs, images were reviewed and discussed with KARY Cardenas Enteric tube with metallic tip in the left upper quadrant likely in the stomach. Home on plavix and warfarin D/C INITIAL PLAN TO [facility] PENDING/ discharge planning in place once court appointed DPOA available D/W RN 10/27/2020 HGB 9.4 doing well on trach shield on a 24-hour basis./ blood gases shows no worsening hypercapnia while on trach shield. No apneic breathing reported. laparoscopic gastrostomy tube placement (specifically 24 F) Oct discharge planning in place once court appointed DPOA available Acute anemia Acute metabolic, infectious encephalopathy Acute respiratory failure Healthcare associated pneumonia Acute hypoglycemia Hypokalemia Elevated troponins Severe protein malnutrition Morbid obesity AAA, 4 cm, infrarenal History of diabetes mellitus type 2 History of dyslipidemia history of hypertension Patient seen examined bedside. argatroban until warfarin goal INR of 4 and maintenance goal of 2-3. Pending appointing a legal guardian. Patient's chart, labs, images were reviewed and discussed with KARY Cardenas Enteric tube with metallic tip in the left upper quadrant likely in the stomach. Home on plavix and warfarin D/C INITIAL PLAN TO [facility] PENDING/ discharge planning in place once court appointed DPOA available D/W RN 10/28/2020 HGB 9.4 doing well on trach shield on a 24-hour basis./ blood gases shows no worsening hypercapnia while on trach shield. No apneic breathing reported. laparoscopic gastrostomy tube placement (specifically 24 F) Oct discharge planning in place once court appointed DPOA available Acute anemia Acute metabolic, infectious encephalopathy Acute respiratory failure Healthcare associated pneumonia Acute hypoglycemia Hypokalemia Elevated troponins Severe protein malnutrition Morbid obesity AAA, 4 cm, infrarenal History of diabetes mellitus type 2 History of dyslipidemia history of hypertension Patient seen examined bedside. argatroban until warfarin goal INR of 4 and maintenance goal of 2-3. Pending appointing a legal guardian. Patient's chart, labs, images were reviewed and discussed with KARY Cardenas Enteric tube with metallic tip in the left upper quadrant likely in the stomach. Home on plavix and warfarin D/C INITIAL PLAN TO [facility] PENDING/ discharge planning in place once court appointed DPOA available D/W RN Vitals/I&O Vitals/I&O: Vital Signs Date Time Temp Pulse Resp B/P (MAP) Pulse Ox O2 Delivery O2 Flow Rate FiO2 11/16/20 08:33 100 V-60 AVAPS 11/16/20 08:08 102 147/92 11/16/20 07:19 98.2 20 98.2 11/16/20 04:00 8.0 I & O 11/15/20 11/15/20 11/16/20 15:00 23:00 07:00 Intake Total 510 ml 330 ml 200 ml Output Total 350 ml 275 ml Balance 510 ml -20 ml -75 ml Physical Exam Physical Exam: Neuro: actively posturing. Pulpils dialated but reactive to light and accomendation. Flaccidity in the lower extremity bilaterally. Equivocal Babinski. General: Other (actively posturing. No meaningful movements. ) Heart: Regular rate (SR), Other (distant heart sounds) Lungs: Other (Tracheostomy with trach shield. Deminished breath sounds.) Abdomen: Soft, Other (g tube in place) Extremities: No cyanosis, Other (2-3+ bilateral LE pitting edema) Skin: No rashes, No significant lesion Labs Labs: Laboratory Tests Test 11/15/20 11:18 11/15/20 18:04 11/15/20 23:45 11/16/20 05:23 Glucose (Fingerstick) 187 mg/dL (70-99) 190 mg/dL (70-99) 177 mg/dL (70-99) 184 mg/dL (70-99) Test 11/16/20 07:10 Prothrombin Time 21.4 SEC (11.7-14.0) Prothromb Time International Ratio 1.9 (0.8-1.1) Assessment and Plan Assessmemt and Plan Problems Medical Problems: (1) NSTEMI (non-ST elevated myocardial infarction) Status: Acute (2) Obtundation Status: Acute (3) Respiratory arrest Status: Acute Comment Review of Relevant I have reviewed the following items denise (where applicable) has been applied. Justifications for Admission Other Justification Hypoglycemia and altered mental status. JARRED PARMAR MD Nov 16, 2020 09:09
[2020-11-16 11:00] VITALS: BP 131/89
--- NOTE | 2020-11-16 13:31 | NUR ---
SS following up with discharge planning. SS reviewed pt chart and discussed with pt RN. Pt is currently on trach shield at 35%. G-Tube in place. Pt on IV Lasix. COVID19 negative. Pt in need of DPOA or Guardianship for placement at LTACH or LTC facility. Pick Pack Worker, Amarilis Matthews, assigned to case and is in need of proposed guardian prior to proceeding. Pt's niece, Casandra Andrews, , and her spouse Han Jovel are requesting to be proposed Guardians at this time. Pick Pack Worker currently working on Petition. Pick Pack Worker requiring medical letter from physician to complete Petition. Dr. Garcia completing letter and will provide to SS once finished. Pt's niece has contacted [facility], ; fax [phone], and has set up a tour for [phone] today. Referral was phoned and faxed to [facility] and pt accepted pending insurance approval as long as Guardianship is in process with the courts and family is agreeable to sign consents. SS will continue to follow for discharge planning.
[2020-11-16 15:00] VITALS: BP 115/73
[2020-11-16] MEDS: WARFARIN 4 MG TABLET. PO SCH (16:18)
[2020-11-16 19:11] VITALS: BP 135/79
[2020-11-16] MEDS: ACETAMINOPHEN 650 MG/20.3 ML SOLUTION. PEG PRN (21:07)
[2020-11-16] MEDS: ATORVASTATIN CALCIUM 40 MG TABLET. PO SCH (21:07)
[2020-11-16 22:18] VITALS: BP 98/56
[2020-11-17 02:03] VITALS: BP 93/53
[2020-11-17] MEDS: INSULIN LISPRO 300 UNITS/3 ML VIAL. SQ SCH ×3 (05:59→18:00)
[2020-11-17 07:00] VITALS: BP 112/68
[2020-11-17] MEDS: LANSOPRAZOLE 30 MG TAB.RAP.DR FT SCH (08:03)
[2020-11-17] MEDS: METOPROLOL TART IMMED RELEASE 25 MG TABLET. PO SCH ×2 (08:04→21:04)
[2020-11-17] MEDS: POTASSIUM BICARB 20 MEQ EFFERVESCENT TABLET. PEG SCH (08:04)
[2020-11-17] MEDS: ASPIRIN CHEWABLE 81 MG TABLET. PO SCH (08:04)
[2020-11-17] MEDS: FUROSEMIDE 40 MG/4 ML VIAL. IVP SCH (08:04)
[2020-11-17] MEDS: DOCUSATE 100 MG/10 ML SOLUTION. PO SCH (08:04)
[2020-11-17] MEDS: CLOPIDOGREL BISULFATE 75 MG TABLET PO SCH (08:04)
[2020-11-17] MEDS: AMIODARONE HCL 200 MG TABLET. PO SCH (08:07)
--- NOTE | 2020-11-17 09:03 | PDOC ---
[employer] PROGRESS NOTE Date of Service DOS: DATE: 11/17/20 TIME: 09:01 Chief Complaint Chief Complaint Acute anemia Acute metabolic, infectious encephalopathy Acute hypoxic respiratory failure Healthcare associated pneumonia Acute hypoglycemia Hypokalemia Elevated troponins Severe protein malnutrition Morbid obesity AAA, 4 cm, infrarenal History of diabetes mellitus type 2 History of dyslipidemia history of hypertension History of recent STEMI History of CAD History of peripheral artery disease History of JEANNE History of CVA History of paroxysmal atrial fibrillation Ischemic cardiomyopathy History of Present Illness History of Present Illness 11/17 Patient evaluated and examined at bedside. He was tolerating being on the trach collar when seen. No change in neurologic status really. I have written a letter to send to the local charge with my support for his need of a guardian. 11/16 Patient evaluated and examined at bedside. Patient's niece at bedside discussed case at length with her and ongoing plan. He does present as movement in his upper extremities today. He did open his eyes to his niece's voice earlier. Continue current plan of care. 11/15 Patient evaluated and examined at bedside. Remains minimally responsive. He is discharged ready. Just waiting for social issues to be sorted out. Possible discharge 11/14: No sort of clinical change overnight. Remains encephalopathic. Can discharge whenever guardianship and social issues mediated. 11/13: Afebrile. Still no meaningful response to any sort of interaction. Remains on trach. PEG tube. Complicated social situation. Afebrile. BP a little up today. Continues to remain encephalopathic off sedation requiring 8 L trach shield O2 with O2 saturations 91%. Tolerating PEG feeds with free water boluses. INR 2.8. Discussed with anabel Guajardo she is reaching out to the rest of the family. 10: Afebrile. No meaningful following of commands, opens eyes. Requires 8L trach shield O2 to maintain O2 saturations 90%. No residuals on PEG tube feeds. Discussed with anabel Guajardo bedside she is going to reach out to the rest of the family now the family has been located. 11/10: Afebrile. Continues to be encephalopathic no meaningful eye contact movements not following commands. Requiring 8 L trach shield O2 to maintain saturations 91%. No residuals on tube feeds 45 cc/h. INR 2.8. Throughout heroic efforts by social work estranged family has been found and has a niece who will be visiting sometime potentially later today or tomorrow 11/09: Afebrile. Still encephalopathic not making any meaningful eye contact or movements not following commands. Waiting for guardianship. 8 L trach shield O2. Tolerating tube feeds with no residuals 45 cc/h. INR 2.6 11/08: Afebrile. Opens eyes but no meaningful contact not following commands. Requiring 8 L trach shield O2 mask. 11/07: Not responsive to stimuli, not making eye contact. Afebrile. Seen on 8 L trach collar canula. Hb 9.1 Renal labs stable INR 3.1. 11/06: Patient not meaningfully responding well. On trach shield and BiPAP as needed on trach. PEG feeds with no significant residuals. 11/05: Patient is still unresponsive. Pupils reactive to light and accommodation. No meaningful movements. Actively posturing at bed side. Has peg feeding at 45cc/hr. Trach shield at 8L and BIPAP PRN at 35%. There is an open wound at the site of the peg insertion. Wound care, Dr. Cristobal is consulted. 11/04: Patient is still unresponsive. Pupils reactive to light and accommodation. Actively posturing at bedside. No meaningful movements. Has peg feeding at 45cc/hr. Trach shield at 8L and BIPAP PRN at 35%. 11/03: Patient seen and examined. Discussed with RN and oncology social work. Chart reviewed. Patient is still unresponsive. Actively decorticate posturing at bedside. Eyes rolled upward. No meaningful movements. Has peg feeding at 45cc/hr. The bleeding at the peg insertion site has stopped. 11/02: Patient seen and examined. Chart reviewd. Discussed with RN and oncology social work. Patient is still unresponsive. No meaningful movements. Actively decorticate posturing at bedside. Has peg feeding running at 45cc/hr. Some bleeding at the peg insertion site. 11/01: Patient seen and examined. Discussed with oncology social work and RN. Patient is still unresponsive. No meaningful movements. Peg feeding is running at 45cc/hr. Patient is actively posturing at bed side. Trach shield at 8L and BIPAP PRN at 35%. 10/31: Patient seen and examined. Chart reviewed. Discussed with oncology social work and RN. Patient still unresponsive. Patient actively posturing at bed side. Has peg running at 45cc/hr. Vestibulo-ocular reflex intact. 10/30: Patient seen and examined. Discussed with oncology social work and RN. Chart reviewed. Patient actively posturing at bed side. Has peg running at 45cc/hr. Mr Andrews is a 70-year-old male with a recent prolonged hospitalization for STEMI and respiratory failure for which she was treated with arterial thrombolysis for a right leg popliteal artery aneurysm and also had left heart cath with placement of a stent in the LAD and RCA comes in today after he was found obtunded at his [facility] facility. Apparently according to the nursing facility patient was in his usual state of health and he was conversational but then became altered. His blood glucose was found to be in the 30s. Glucose tabs and glucagon was given in route and his GCS reported at 6. Upon arrival patient's mental status did not improve and he was eventually intubated for airway protection. Of note EMS was bagging the patient through the nasal access. In the ED, patient was placed on a vent and pulmonology was consulted. Patient was also taken to the CT scanner for sanders scanning. Patient was started to wake up on the vent and sedation was ordered. 09/23: Patient examined at bedside. Intubated. Not on any sedation but unresponsive. Neurology consult in place. 09/24: Patient seen and examined at bedside. Remains intubated he is off sedation but still remains unresponsive. Planning for MRI brain in the morning. Further plan to be determined by MRI. 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 09/25: Afebrile, currently breathing on ventilator with FiO2 50%, PEEP 5. Had CODE BLUE in ICU this morning; received 2 rounds of CPR, epinephrine, and atropine with ROSC. MRI brain negative. Made DNR, and after discussion with Dr. Rubalcava he agrees. 09/26:: Afebrile. Still on vent, with FiO2 45%, PEEP 5. After discussion with Dr. Rubalcava yesterday, patient was made DNR. In the ED is likely a poor candidate for weaning trials may need trach in near future if no significant improvement. 09/27:: Afebrile. On vent with FiO2 40%, PEEP 5. Potassium 2.8 today, will replace. Warfarin has been resumed. Discussed with pharmacy, will resume aspirin and Plavix. May need tracheostomy by the end of the week if no improvement in mental status. 09/28:: Afebrile. On ventilator with FiO2 40%, PEEP 5. Warfarin has been resumed; INR 1.3 today. Some morning labs still pending; hemoglobin yesterday 7.3, will continue to monitor. Continue IV cefepime and supportive care. 09/29: Afebrile. Breathing on vent with FiO2 40%, PEEP 5. INR 1.2 today; pharmacy to help with warfarin dosing. White count within normal range, renal function stable. Spoke with pharmacy about cefepime 1 g every 8 hours dosing; this has been changed to cefepime 2 g every 8 hours. 09/30: Afebrile. Currently breathing on vent with FiO2 40%, PEEP 5. Continue antibiotics, cefepime 2 g every 8 hours. INR 1.4; continue warfarin dosing per pharmacy. Possible tracheostomy at some point. Critical care time 30 minutes reviewing charts, labs, examination, discussion with RN. 10/01: T-max 100.3 F. On ventilator with FiO2 40%, PEEP 5. Continue antibiotics , cefepime 2 g every 8 hours. INR 1.4, still subtherapeutic; continue warfarin dosing per pharmacy. Possible tracheostomy at some point. 10/02: No acute events overnight. Patient saturating 99% on vent settings of 10/450/40/5. Patient will likely need a trach and PEG at some point. We will hold warfarin and start 2 units PRBC transfusion. Patient's chart, labs, images were reviewed and discussed with RN 10/03: No acute events overnight. Patient sat 100% on minimal vent settings. No sedation at this point and patient is opening his eyes spontaneously. Not much response or spontaneous movements. Surgery has been consulted for tracheostomy. Patient will also likely need a PEG tube. 10/04: No acute events overnight. Patient saturating 90% on minimal vent settings. T-max 100.4 overnight. Plan for trach tomorrow with surgery. Patient's chart, labs, images were reviewed and discussed with RN 10/05: No acute events overnight. Patient saturating 99% on minimal vent settings. Plan for tracheostomy today. Consent is provided by authorization by 2 physicians due to patient having no close relatives or DPOA. Will resume heparin and warfarin bridging tomorrow after tracheostomy 10/07: No acute events overnight. Patient seen and examined bedside. On trach v ent. Saturating 99%. Pending GI evaluation for possible PEG placement after discussing with cardiology whether to continue with Plavix. Possibly place PEG if patient is only on aspirin and stopping argatroban. 10/08: No acute events overnight. Patient continues to be on trach mechanical vent. Saturating 100%. Pending decision from GI whether to proceed with PEG placement depending on the type of anticoagulation patient will be on. 10/09: No overnight events. On trach with vent support 40% FiO2 PEEP of 5. Currently argatroban and propofol for minimal sedation. When sedation is weaned he has no meaningful movements but has pulled at his tracheostomy site. Unable to hold plavix due to recently placed stents. 10/10: Afebrile today. On trach with vent support 40% FiO2 PEEP of 5. Continue argatroban and changed to Aggrastat in anticipation of surgical consultation for potential laparoscopic PEG placement. INR 1.6. Hb greater than 9 no significant neurologic recovery today. 10/11: Afebrile. On trach with vent support 40% FiO2 PEEP of 5. INR 1.8. Not making meaningful eye contact. Labs otherwise stable. 10/12: Afebrile. Trach with vent support 40% FiO2 PEEP five O2 saturations 92%. INR 1.8, mag 1.8, Hb 8.4. Not following commands. Tentative plans for surgical PEG next week. 10/13: Afebrile. Trach with vent support 40% FiO2 PEEP 5. Eyes open, not tracking or following commands. Holding Plavix. On argatroban. 10/14: Afebrile. Trach with vent support 40% FiO2 PEEP of 5. Will open eyes intermittently not necessarily to voice. Good urine output. Labs stable. 10/15: Afebrile overnight. Trach with vent AC 40% fio2 PEEP 5. Had a very large bowel movement. Still not tracking. Hb 9, INR 1.7, glucose 144. Tentative plan for PEG 10/18/2020 CC time 30 minutes 10/16/20: Patient seen and examined in the ICU. He was resting and still on vent via trach. Has NG running via Dobhoff, feeding at 40cc/hr. AC/10/450/40% plus 5 PEEP. Discussed with RN. Chart reviewed. 10/17/20: Patient was seen and examined in the ICU today. Still on vent via trach at AC/10/450/40 plus 5 PEEP. While examined, patient was at 100% O2 saturation. Has SCDs on for DVT prophylaxis. Stauffer catheter in place. On IV argatroban. R subclavian triple lumen in place. Dobhoff running at 40cc/hr. Discussed with RN. Chart reviewed. 10/18/20: Patient seen and examined in ICU. His eyes are open. On vent via trach with settings that were recently changed to spontaneous respirations with FiO2 of 40 and 5 PEEP. Trach is clean and dry. Currently, oxygen saturation is at 100%. Stauffer to bedside and rectal bag in place. Discussed with RN. Chart reviewed. 10/19/20: Patient was seen and examined in the ICU today. His eyes were open and he was resting. On BiPAP via trach AVAPS/10/450/40 plus 5 PEEP. Trach is clean and dry. Has SCDs for DVT prophylaxis. Patient has rectal bag, Stauffer to bedside, and NG tube in place. Discussed with RN. Chart reviewed. 10/20/20 No acute events overnight. Patient seen and examined bedside. Transferred from the ICU. Continues to be nonverbal and not following much commands. Opens eyes to voice. Currently on BiPAP via trach on AVAPS setting 10/450/40 PEEP of 5. Trach site is clear. No signs of infections. Patient's chart, labs, images were reviewed and discussed with RN 10/21/2020 No acute events overnight. Patient seen and examined bedside. Afebrile. Continues to be nonverbal but opens eyes to voice. Currently on BiPAP. Patient's chart, labs, images were reviewed and discussed with RN. 10/22/2020 No acute events overnight. Patient seen examined bedside. Continue with argatroban until warfarin goal INR of 4 and maintenance goal of 2-3. Please see top trimmer note. Pending appointing a legal guardian. Patient's chart, labs, images were reviewed and discussed with RN 10/23/2020 laparoscopic gastrostomy tube placement (specifically 24 F) Oct discharge planning in place once court appointed DPOA available Acute anemia Acute metabolic, infectious encephalopathy Acute respiratory failure Healthcare associated pneumonia Acute hypoglycemia Hypokalemia Elevated troponins Severe protein malnutrition Morbid obesity AAA, 4 cm, infrarenal History of diabetes mellitus type 2 History of dyslipidemia history of hypertension Patient seen examined bedside. argatroban until warfarin goal INR of 4 and maintenance goal of 2-3. Pending appointing a legal guardian. Patient's chart, labs, images were reviewed and discussed with KARY Cardenas Enteric tube with metallic tip in the left upper quadrant likely in the stomach. 10/24/2020 doing well on trach shield on a 24-hour basis./ blood gases shows no worsening hypercapnia while on trach shield. No apneic breathing reported. laparoscopic gastrostomy tube placement (specifically 24 F) Oct discharge planning in place once court appointed DPOA available Acute anemia Acute metabolic, infectious encephalopathy Acute respiratory failure Healthcare associated pneumonia Acute hypoglycemia Hypokalemia Elevated troponins Severe protein malnutrition Morbid obesity AAA, 4 cm, infrarenal History of diabetes mellitus type 2 History of dyslipidemia history of hypertension Patient seen examined bedside. argatroban until warfarin goal INR of 4 and maintenance goal of 2-3. Pending appointing a legal guardian. Patient's chart, labs, images were reviewed and discussed with KARY Cardenas Enteric tube with metallic tip in the left upper quadrant likely in the stomach. Home on plavix and warfarin D/C INITIAL PLAN TO [place] PENDING/ discharge planning in place once court appointed DPOA available D/W RN 10/25/2020 doing well on trach shield on a 24-hour basis./ blood gases shows no worsening hypercapnia while on trach shield. No apneic breathing reported. laparoscopic gastrostomy tube placement (specifically 24 F) Oct discharge planning in place once court appointed DPOA available Acute anemia Acute metabolic, infectious encephalopathy Acute respiratory failure Healthcare associated pneumonia Acute hypoglycemia Hypokalemia Elevated troponins Severe protein malnutrition Morbid obesity AAA, 4 cm, infrarenal History of diabetes mellitus type 2 History of dyslipidemia history of hypertension Patient seen examined bedside. argatroban until warfarin goal INR of 4 and maintenance goal of 2-3. Pending appointing a legal guardian. Patient's chart, labs, images were reviewed and discussed with KARY Cardenas Enteric tube with metallic tip in the left upper quadrant likely in the stomach. Home on plavix and warfarin D/C INITIAL PLAN TO [place] [facility]END[facility]/ discharge planning in place once court appointed DPOA available D/W RN 10/26/2020 HGB 9.4 doing well on trach shield on a 24-hour basis./ blood gases shows no worsening hypercapnia while on trach shield. No apneic breathing reported. laparoscopic gastrostomy tube placement (specifically 24 F) Oct discharge planning in place once court appointed DPOA available Acute anemia Acute metabolic, infectious encephalopathy Acute respiratory failure Healthcare associated pneumonia Acute hypoglycemia Hypokalemia Elevated troponins Severe protein malnutrition Morbid obesity AAA, 4 cm, infrarenal History of diabetes mellitus type 2 History of dyslipidemia history of hypertension Patient seen examined bedside. argatroban until warfarin goal INR of 4 and maintenance goal of 2-3. Pending appointing a legal guardian. Patient's chart, labs, images were reviewed and discussed with KARY Cardenas Enteric tube with metallic tip in the left upper quadrant likely in the stomach. Home on plavix and warfarin D[place]/ discharge planning in place once court appointed DPOA available D/W RN 10/27/2020 HGB 9.4 doing well on trach shield on a 24-hour basis./ blood gases shows no worsening hypercapnia while on trach shield. No apneic breathing reported. laparoscopic gastrostomy tube placement (specifically 24 F) Oct discharge planning in place once court appointed DPOA available Acute anemia Acute metabolic, infectious encephalopathy Acute respiratory failure Healthcare associated pneumonia Acute hypoglycemia Hypokalemia Elevated troponins Severe protein malnutrition Morbid obesity AAA, 4 cm, infrarenal History of diabetes mellitus type 2 History of dyslipidemia history of hypertension Patient seen examined bedside. argatroban until warfarin goal INR of 4 and maintenance goal of 2-3. Pending appointing a legal guardian. Patient's chart, labs, images were reviewed and discussed with KARY Cardenas Enteric tube with metallic tip in the left upper quadrant likely in the stomach. Home on plavix and warfarin D/C INITIAL PLAN TO [place] PEND[facility]/ discharge planning in place once court appointed DPOA available D/W RN 10/28/2020 HGB 9.4 doing well on trach shield on a 24-hour basis./ blood gases shows no worsening h ypercapnia while on trach shield. No apneic breathing reported. laparoscopic gastrostomy tube placement (specifically 24 F) Oct discharge planning in place once court appointed DPOA available Acute anemia Acute metabolic, infectious encephalopathy Acute respiratory failure Healthcare associated pneumonia Acute hypoglycemia Hypokalemia Elevated troponins Severe protein malnutrition Morbid obesity AAA, 4 cm, infrarenal History of diabetes mellitus type 2 History of dyslipidemia history of hypertension Patient seen examined bedside. argatroban until warfarin goal INR of 4 and maintenance goal of 2-3. Pending appointing a legal guardian. Patient's chart, labs, images were reviewed and discussed with KARY Cardenas Enteric tube with metallic tip in the left upper quadrant likely in the stomach. Home on plavix and warfarin D/C INITIAL PLAN TO [facility] PEND[facility]/ discharge planning in place once court appointed DPOA available D/W RN Vitals/I&O Vitals/I&O: Vital Signs Date Time Temp Pulse Resp B/P (MAP) Pulse Ox O2 Delivery O2 Flow Rate FiO2 11/17/20 08:07 99 112/68 11/17/20 07:49 96 Tracheal Collar 8.0 11/17/20 07:00 100.2 16 100.2 I & O 11/16/20 11/16/20 11/17/20 15:00 23:00 07:00 Intake Total 200 ml 779 ml 543 ml Output Total 600 ml 250 ml Balance 200 ml 179 ml 293 ml Physical Exam Physical Exam: Neuro: actively posturing. Pulpils dialated but reactive to light and accomendation. Flaccidity in the lower extremity bilaterally. Equivocal [place] i. General: Other (actively posturing. No meaningful movements. ) Heart: Regular rate (SR), Other (distant heart sounds) Lungs: Other (Tracheostomy with trach shield. Deminished breath sounds.) Abdomen: Soft, Other (g tube in place) Extremities: No cyanosis, Other (2-3+ bilateral LE pitting edema) Skin: No rashes, No significant lesion Labs Labs: Laboratory Tests Test 11/16/20 11:51 11/16/20 16:52 11/16/20 23:47 11/17/20 05:43 Glucose (Fingerstick) 193 mg/dL (70-99) 197 mg/dL (70-99) 170 mg/dL (70-99) 178 mg/dL (70-99) Assessment and Plan Assessmemt and Plan Problems Medical Problems: (1) NSTEMI (non-ST elevated myocardial infarction) Status: Acute (2) Obtundation Status: Acute (3) Respiratory arrest Status: Acute Comment Review of Relevant I have reviewed the following items denise (where applicable) has been applied. Justifications for Admission Other Justification Hypoglycemia and altered mental status. JARRED PARMAR MD Nov 17, 2020 09:03
--- NOTE | 2020-11-17 10:20 | NUR ---
SS following up with discharge planning. SS reviewed pt chart and discussed with pt RN. Pt is currently on trach shield at 35%. G-Tube in place. COVID19 negative. Pt in need of DPOA or Guardianship for placement at LT[facility] or LTC facility. Technical Research Scientist, Amarilis Matthews, assigned to case and is in need of proposed guardian prior to proceeding. Pt's niece, Casandra Andrews, , and her spouse Han Jovel are requesting to be proposed Guardians at this time. Physician letter provided to SS for Petition and phoned and faxed to [employer]. SS contacted [employer] and was notified that they have all needed documents at this time and will finish up the petition and will send to SS to be signed and notarized by SS and pt's niece. SS discussed with pt's niece. Pt's niece reported that she works today and Friday and would not be able to sign in front of the notary until 11/21/2020. SS discussed with case manager of project management. Pt accepted and [facility], ; fax [phone], and [facility] Cliical updates phoned and faxed to [facility]. [facility] to submit for insurance authorization today. SS will continue to follow for discharge planning.
[2020-11-17 11:00] VITALS: BP 117/65
[2020-11-17 14:55] VITALS: BP 114/62
[2020-11-17] MEDS: WARFARIN 4 MG TABLET. PO SCH (16:03)
[2020-11-17] MEDS: ACETAMINOPHEN 650 MG/20.3 ML SOLUTION. PEG PRN (16:03)
[2020-11-17 19:30] VITALS: BP 139/80
[2020-11-17] MEDS: ATORVASTATIN CALCIUM 40 MG TABLET. PO SCH (21:04)
[2020-11-17 23:10] VITALS: BP 120/71
[2020-11-18 03:20] VITALS: BP 148/82
[2020-11-18] MEDS: ACETAMINOPHEN 650 MG/20.3 ML SOLUTION. PEG PRN ×3 (03:24→21:17)
[2020-11-18 05:26] LABS: PROTHROMBIN TIME PATIENT 26.6 SEC (11.7-14.0)
[2020-11-18] MEDS: INSULIN LISPRO 300 UNITS/3 ML VIAL. SQ SCH ×5 (06:00→23:57)
[2020-11-18 07:51] VITALS: BP 127/66
[2020-11-18] MEDS: METOPROLOL TART IMMED RELEASE 25 MG TABLET. PO SCH ×2 (08:30→21:18)
[2020-11-18] MEDS: CLOPIDOGREL BISULFATE 75 MG TABLET PO SCH (08:31)
[2020-11-18] MEDS: POTASSIUM BICARB 20 MEQ EFFERVESCENT TABLET. PEG SCH (08:31)
[2020-11-18] MEDS: LANSOPRAZOLE 30 MG TAB.RAP.DR FT SCH (08:31)
[2020-11-18] MEDS: ASPIRIN CHEWABLE 81 MG TABLET. PO SCH (08:31)
[2020-11-18] MEDS: AMIODARONE HCL 200 MG TABLET. PO SCH (08:31)
[2020-11-18] MEDS: DOCUSATE 100 MG/10 ML SOLUTION. PO SCH (08:31)
[2020-11-18] MEDS: FUROSEMIDE 40 MG/4 ML VIAL. IVP SCH (08:32)
[2020-11-18 11:31] VITALS: BP 113/71
--- NOTE | 2020-11-18 11:56 | PDOC ---
[employer] PROGRESS NOTE Date of Service DOS: DATE: 11/18/20 TIME: 11:55 Chief Complaint Chief Complaint Acute anemia Acute metabolic, infectious encephalopathy Acute hypoxic respiratory failure Healthcare associated pneumonia Acute hypoglycemia Hypokalemia Elevated troponins Severe protein malnutrition Morbid obesity AAA, 4 cm, infrarenal History of diabetes mellitus type 2 History of dyslipidemia history of hypertension History of recent STEMI History of CAD History of peripheral artery disease History of JEANNE History of CVA History of paroxysmal atrial fibrillation Ischemic cardiomyopathy History of Present Illness History of Present Illness 11/18 On trach collar when being seen. Still with minimal neurologic status. Once social issues sorted out well discharge. 11/17 Patient evaluated and examined at bedside. He was tolerating being on the trach collar when seen. No change in neurologic status really. I have written a letter to send to the local proof passer with my support for his need of a guardian. 11/16 Patient evaluated and examined at bedside. Patient's niece at bedside discussed case at length with her and ongoing plan. He does present as movement in his upper extremities today. He did open his eyes to his niece's voice earlier. Continue current plan of care. 11/15 Patient evaluated and examined at bedside. Remains minimally responsive. He is discharged ready. Just waiting for social issues to be sorted out. Possible discharge 11/14: No sort of clinical change overnight. Remains encephalopathic. Can disc harge whenever guardianship and social issues mediated. 11/13: Afebrile. Still no meaningful response to any sort of interaction. Remains on trach. PEG tube. Complicated social situation. Afebrile. BP a little up today. Continues to remain encephalopathic off sedation requiring 8 L trach shield O2 with O2 saturations 91%. Tolerating PEG feeds with free water boluses. INR 2.8. Discussed with anabel Guajardo she is reaching out to the rest of the family. 10: Afebrile. No meaningful following of commands, opens eyes. Requires 8L trach shield O2 to maintain O2 saturations 90%. No residuals on PEG tube feeds. Discussed with anabel Guajardo bedside she is going to reach out to the rest of the family now the family has been located. 11/10: Afebrile. Continues to be encephalopathic no meaningful eye contact movements not following commands. Requiring 8 L trach shield O2 to maintain saturations 91%. No residuals on tube feeds 45 cc/h. INR 2.8. Throughout heroic efforts by social work estranged family has been found and has a niece who will be visiting sometime potentially later today or tomorrow 11/09: Afebrile. Still encephalopathic not making any meaningful eye contact or movements not following commands. Waiting for guardianship. 8 L trach shield O2. Tolerating tube feeds with no residuals 45 cc/h. INR 2.6 11/08: Afebrile. Opens eyes but no meaningful contact not following commands. Requiring 8 L trach shield O2 mask. 11/07: Not responsive to stimuli, not making eye contact. Afebrile. Seen on 8 L trach collar canula. Hb 9.1 Renal labs stable INR 3.1. 11/06: Patient not meaningfully responding well. On trach shield and BiPAP as needed on trach. PEG feeds with no significant residuals. 11/05: Patient is still unresponsive. Pupils reactive to light and accommodation. No meaningful movements. Actively posturing at bed side. Has peg feeding at 45cc/hr. Trach shield at 8L and BIPAP PRN at 35%. There is an open wound at the site of the peg insertion. Wound care, Dr. Cristobal is consulted. 11/04: Patient is still unresponsive. Pupils reactive to light and accommodation. Actively posturing at bedside. No meaningful movements. Has peg feeding at 45cc/hr. Trach shield at 8L and BIPAP PRN at 35%. 11/03: Patient seen and examined. Discussed with RN and social work therapist. Chart reviewed. Patient is still unresponsive. Actively decorticate posturing at bedside. Eyes rolled upward. No meaningful movements. Has peg feeding at 45cc/hr. The bleeding at the peg insertion site has stopped. 11/02: Patient seen and examined. Chart reviewd. Discussed with RN and social work therapist. Patient is still unresponsive. No meaningful movements. Actively decorticate posturing at bedside. Has peg feeding running at 45cc/hr. Some bleeding at the peg insertion site. 11/01: Patient seen and examined. Discussed with social work therapist and RN. Patient is still unresponsive. No meaningful movements. Peg feeding is running at 45 cc/hr. Patient is actively posturing at bed side. Trach shield at 8L and BIPAP PRN at 35%. 10/31: Patient seen and examined. Chart reviewed. Discussed with social work therapist and RN. Patient still unresponsive. Patient actively posturing at bed side. Has peg running at 45cc/hr. Vestibulo-ocular reflex intact. 10/30: Patient seen and examined. Discussed with social work therapist and RN. Chart reviewed. Patient actively posturing at bed side. Has peg running at 45cc/hr. Mr Andrews is a 70-year-old male with a recent prolonged hospitalization for STEMI and respiratory failure for which she was treated with arterial thrombolysis for a right leg popliteal artery aneurysm and also had left heart cath with placement of a stent in the LAD and RCA comes in today after he was found obtunded at his [facility] facility. Apparently according to the nursing facility patient was in his usual state of health and he was conversational but then became altered. His blood glucose was found to be in the 30s. Glucose tabs and glucagon was given in route and his GCS reported at 6. Upon arrival patient's mental status did not improve and he was eventually i ntubated for airway protection. Of note EMS was bagging the patient through the nasal access. In the ED, patient was placed on a vent and pulmonology was consulted. Patient was also taken to the CT scanner for sanders scanning. Patient was started to wake up on the vent and sedation was ordered. 09/23: Patient examined at bedside. Intubated. Not on any sedation but unresponsive. Neurology consult in place. 09/24: Patient seen and examined at bedside. Remains intubated he is off sedation but still remains unresponsive. Planning for MRI brain in the morning. Further plan to be determined by MRI. 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 09/25: Afebrile, currently breathing on ventilator with FiO2 50%, PEEP 5. Had CODE BLUE in ICU this morning; received 2 rounds of CPR, epinephrine, and atropine with ROSC. MRI brain negative. Made DNR, and after discussion with Dr. Rubalcava he agrees. 09/26:: Afebrile. Still on vent, with FiO2 45%, PEEP 5. After discussion with Dr. Rublacava yesterday, patient was made DNR. In the ED is likely a poor candidate for weaning trials may need trach in near future if no significant improvement. 09/27:: Afebrile. On vent with FiO2 40%, PEEP 5. Potassium 2.8 today, will replace. Warfarin has been resumed. Discussed with pharmacy, will resume aspirin and Plavix. May need tracheostomy by the end of the week if no improvement in mental status. 09/28:: Afebrile. On ventilator with FiO2 40%, PEEP 5. Warfarin has been resumed; INR 1.3 today. Some morning labs still pending; hemoglobin yesterday 7.3, will continue to monitor. Continue IV cefepime and supportive care. 09/29: Afebrile. Breathing on vent with FiO2 40%, PEEP 5. INR 1.2 today; pharmacy to help with warfarin dosing. White count within normal range, renal function stable. Spoke with pharmacy about cefepime 1 g every 8 hours dosing; this has been changed to cefepime 2 g every 8 hours. 09/30: Afebrile. Currently breathing on vent with FiO2 40%, PEEP 5. Continue antibiotics, cefepime 2 g every 8 hours. INR 1.4; continue warfarin dosing per pharmacy. Possible tracheostomy at some point. Critical care time 30 minutes reviewing charts, labs, examination, discussion with RN. 10/01: T-max 100.3 F. On ventilator with FiO2 40%, PEEP 5. Continue antibiotics, cefepime 2 g every 8 hours. INR 1.4, still subtherapeutic; continue warfarin dosing per pharmacy. Possible tracheostomy at some point. 10/02: No acute events overnight. Patient saturating 99% on vent settings of 10/450/40/5. Patient will likely need a trach and PEG at some point. We will hold warfarin and start 2 units PRBC transfusion. Patient's chart, labs, images were reviewed and discussed with RN 10/03: No acute events overnight. Patient sat 100% on minimal vent settings. No sedation at this point and patient is opening his eyes spontaneously. Not much response or spontaneous movements. Surgery has been consulted for tracheostomy. Patient will also likely need a PEG tube. 10/04: No acute events overnight. Patient saturating 90% on minimal vent s ettings. T-max 100.4 overnight. Plan for trach tomorrow with surgery. Patient's chart, labs, images were reviewed and discussed with RN 10/05: No acute events overnight. Patient saturating 99% on minimal vent settings. Plan for tracheostomy today. Consent is provided by authorization by 2 physicians due to patient having no close relatives or DPOA. Will resume heparin and warfarin bridging tomorrow after tracheostomy 10/07: No acute events overnight. Patient seen and examined bedside. On trach vent. Saturating 99%. Pending GI evaluation for possible PEG placement after discussing with cardiology whether to continue with Plavix. Possibly place PEG if patient is only on aspirin and stopping argatroban. 10/08: No acute events overnight. Patient continues to be on trach mechanical vent. Saturating 100%. Pending decision from GI whether to proceed with PEG placement depending on the type of anticoagulation patient will be on. 10/09: No overnight events. On trach with vent support 40% FiO2 PEEP of 5. Currently argatroban and propofol for minimal sedation. When sedation is weaned he has no meaningful movements but has pulled at his tracheostomy site. Unable to hold plavix due to recently placed stents. 10/10: Afebrile today. On trach with vent support 40% FiO2 PEEP of 5. Continue argatroban and changed to Aggrastat in anticipation of surgical consultation for potential laparoscopic PEG placement. INR 1.6. Hb greater than 9 no significant neurologic recovery today. 10/11: Afebrile. On trach with vent support 40% FiO2 PEEP of 5. INR 1.8. Not making meaningful eye contact. Labs otherwise stable. 10/12: Afebrile. Trach with vent support 40% FiO2 PEEP five O2 saturations 92%. INR 1.8, mag 1.8, Hb 8.4. Not following commands. Tentative plans for surgical PEG next week. 10/13: Afebrile. Trach with vent support 40% FiO2 PEEP 5. Eyes open, not tracking or following commands. Holding Plavix. On argatroban. 10/14: Afebrile. Trach with vent support 40% FiO2 PEEP of 5. Will open eyes intermittently not necessarily to voice. Good urine output. Labs stable. 10/15: Afebrile overnight. Trach with vent AC 40% fio2 PEEP 5. Had a very large bowel movement. Still not tracking. Hb 9, INR 1.7, glucose 144. Tentative plan for PEG 10/18/2020 CC time 30 minutes 10/16/20: Patient seen and examined in the ICU. He was resting and still on vent via trach. Has NG running via Dobhoff, feeding at 40cc/hr. AC/10/450/40% plus 5 PEEP. Discussed with KARY. Chart reviewed. 10/17/20: Patient was seen and examined in the ICU today. Still on vent via trach at AC/10/450/40 plus 5 PEEP. While examined, patient was at 100% O2 saturation. Has SCDs on for DVT prophylaxis. Stauffer catheter in place. On IV argatroban. R subclavian triple lumen in place. Dobhoff running at 40cc/hr. Discussed with RN. Chart reviewed. 10/18/20: Patient seen and examined in ICU. His eyes are open. On vent via trach with settings that were recently changed to spontaneous respirations with FiO2 of 40 and 5 PEEP. Trach is clean and dry. Currently, oxygen saturation is at 100%. Stauffer to bedside and rectal bag in place. Discussed with RN. Chart reviewed. 10/19/20: Patient was seen and examined in the ICU today. His eyes were open and he was resting. On BiPAP via trach AVAPS/10/450/40 plus 5 PEEP. Trach is clean and dry. Has SCDs for DVT prophylaxis. Patient has rectal bag, Stauffer to bedside, and NG tube in place. Discussed with RN. Chart reviewed. 10/20/20 No acute events overnight. Patient seen and examined bedside. Transferred from the ICU. Continues to be nonverbal and not following much commands. Opens eyes to voice. Currently on BiPAP via trach on AVAPS setting 10/450/40 PEEP of 5. Trach site is clear. No signs of infections. Patient's chart, labs, images were reviewed and discussed with RN 10/21/2020 No acute events overnight. Patient seen and examined bedside. Afebrile. Continues to be nonverbal but opens eyes to voice. Currently on BiPAP. Patient's chart, labs, images were reviewed and discussed with RN. 10/22/2020 No acute events overnight. Patient seen examined bedside. Continue with argatroban until warfarin goal INR of 4 and maintenance goal of 2-3. Please see drug discovery informatics specialist note. Pending appointing a legal guardian. Patient's chart, labs, images were reviewed and discussed with RN 10/23/2020 laparoscopic gastrostomy tube placement (specifically 24 F) Oct discharge planning in place once court appointed DPOA available Acute anemia Acute metabolic, infectious encephalopathy Acute respiratory failure Healthcare associated pneumonia Acute hypoglycemia Hypokalemia Elevated troponins Severe protein malnutrition Morbid obesity AAA, 4 cm, infrarenal History of diabetes mellitus type 2 History of dyslipidemia history of hypertension Patient seen examined bedside. argatroban until warfarin goal INR of 4 and maintenance goal of 2-3. Pending appointing a legal guardian. Patient's chart, labs, images were reviewed and discussed with KARY Cardenas Enteric tube with metallic tip in the left upper quadrant likely in the stomach. 10/24/2020 doing well on trach shield on a 24-hour basis./ blood gases shows no worsening hypercapnia while on trach shield. No apneic breathing reported. laparoscopic gastrostomy tube placement (specifically 24 F) Oct discharge planning in place once court appointed DPOA available Acute anemia Acute metabolic, infectious encephalopathy Acute respiratory failure Healthcare associated pneumonia Acute hypoglycemia Hypokalemia Elevated troponins Severe protein malnutrition Morbid obesity AAA, 4 cm, infrarenal History of diabetes mellitus type 2 History of dyslipidemia history of hypertension Patient seen examined bedside. argatroban until warfarin goal INR of 4 and maintenance goal of 2-3. Pending appointing a legal guardian. Patient's chart, labs, images were reviewed and discussed with KARY Cardenas Enteric tube with metallic tip in the left upper quadrant likely in the stomach. Home on plavix and warfarin D/C INITIAL PLAN TO [facility] PENDING/ discharge planning in place once court appointed DPOA available D/W RN 10/25/2020 doing well on trach shield on a 24-hour basis./ blood gases shows no worsening hypercapnia while on trach shield. No apneic breathing reported. laparoscopic gastrostomy tube placement (specifically 24 F) Oct discharge planning in place once court appointed DPOA available Acute anemia Acute metabolic, infectious encephalopathy Acute respiratory failure Healthcare associated pneumonia Acute hypoglycemia Hypokalemia Elevated troponins Severe protein malnutrition Morbid obesity AAA, 4 cm, infrarenal History of diabetes mellitus type 2 History of dyslipidemia history of hypertension Patient seen examined bedside. argatroban until warfarin goal INR of 4 and maintenance goal of 2-3. Pending appointing a legal guardian. Patient's chart, labs, images were reviewed and discussed with KARY Cardenas Enteric tube with metallic tip in the left upper quadrant likely in the stomach. Home on plavix and warfarin D/C INITIAL PLAN TO [facility]END[facility]/ discharge planning in place once court appointed DPOA available D/W RN 10/26/2020 HGB 9.4 doing well on trach shield on a 24-hour basis./ blood gases shows no worsening hypercapnia while on trach shield. No apneic breathing reported. laparoscopic gastrostomy tube placement (specifically 24 F) Oct discharge planning in place once court appointed DPOA available Acute anemia Acute metabolic, infectious encephalopathy Acute respiratory failure Healthcare associated pneumonia Acute hypoglycemia Hypokalemia Elevated troponins Severe protein malnutrition Morbid obesity AAA, 4 cm, infrarenal History of diabetes mellitus type 2 History of dyslipidemia history of hypertension Patient seen examined bedside. argatroban until warfarin goal INR of 4 and maintenance goal of 2-3. Pending appointing a legal guardian. Patient's chart, labs, images were reviewed and discussed with KARY Cardenas Enteric tube with metallic tip in the left upper quadrant likely in the stomach. Home on plavix and warfarin D/C INITIAL PLAN TO [facility] PEND[facility]/ discharge planning in place once court appointed DPOA available D/W RN 10/27/2020 HGB 9.4 doing well on trach shield on a 24-hour basis./ blood gases shows no worsening hypercapnia while on trach shield. No apneic breathing reported. laparoscopic gastrostomy tube placement (specifically 24 F) Oct discharge planning in place once court appointed DPOA available Acute anemia Acute metabolic, infectious encephalopathy Acute respiratory failure Healthcare associated pneumonia Acute hypoglycemia Hypokalemia Elevated troponins Severe protein malnutrition Morbid obesity AAA, 4 cm, infrarenal History of diabetes mellitus type 2 History of dyslipidemia history of hypertension Patient seen examined bedside. argatroban until warfarin goal INR of 4 and maintenance goal of 2-3. Pending appointing a legal guardian. Patient's chart, labs, images were reviewed and discussed with KARY Cardenas Enteric tube with metallic tip in the left upper quadrant likely in the stomach. Home on plavix and warfarin D/C INITIAL PLAN TO [facility] PEND[facility]/ discharge planning in place once court appointed DPOA available D/W RN 10/28/2020 HGB 9.4 doing well on trach shield on a 24-hour basis./ blood gases shows no worsening hypercapnia while on trach shield. No apneic breathing reported. laparoscopic gastrostomy tube placement (specifically 24 F) Oct discharge planning in place once court appointed DPOA available Acute anemia Acute metabolic, infectious encephalopathy Acute respiratory failure Healthcare associated pneumonia Acute hypoglycemia Hypokalemia Elevated troponins Severe protein malnutrition Morbid obesity AAA, 4 cm, infrarenal History of diabetes mellitus type 2 History of dyslipidemia history of hypertension Patient seen examined bedside. argatroban until warfarin goal INR of 4 and maintenance goal of 2-3. Pending appointing a legal guardian. Patient's chart, labs, images were reviewed and discussed with KARY Cardenas Enteric tube with metallic tip in the left upper quadrant likely in the stomach. Home on plavix and warfarin D/C INITIAL PLAN TO [facility] PENDING/ discharge planning in place once court appointed DPOA available D/W RN Vitals/I&O Vitals/I&O: Vital Signs Date Time Temp Pulse Resp B/P (MAP) Pulse Ox O2 Delivery O2 Flow Rate FiO2 11/18/20 11:31 99.0 78 24 113/71 (85) 96 Tracheal Collar 8.0 99.0 I & O 11/17/20 11/17/20 11/18/20 15:00 23:00 07:00 Intake Total 200 ml 868 ml 561 ml Output Total 500 ml 350 ml Balance 200 ml 368 ml 211 ml Physical Exam Physical Exam: Neuro: actively posturing. Pulpils dialated but reactive to light and accomendation. Flaccidity in the lower extremity bilaterally. Equivocal Babinski. General: Other (actively posturing. No meaningful movements. ) Heart: Regular rate (SR), Other (distant heart sounds) Lungs: Other (Tracheostomy with trach shield. Deminished breath sounds.) Abdomen: Soft, Other (g tube in place) Extremities: No cyanosis, Other (2-3+ bilateral LE pitting edema) Skin: No rashes, No significant lesion Labs Labs: Laboratory Tests Test 11/17/20 12:15 11/17/20 17:52 11/18/20 00:43 11/18/20 04:55 Glucose (Fingerstick) 196 mg/dL (70-99) 181 mg/dL (70-99) 151 mg/dL (70-99) 183 mg/dL (70-99) Test 11/18/20 05:00 Prothrombin Time 26.6 SEC (11.7-14.0) Prothromb Time International Ratio 2.5 (0.8-1.1) Assessment and Plan Assessmemt and Plan Problems Medical Problems: (1) NSTEMI (non-ST elevated myocardial infarction) Status: Acute (2) Obtundation Status: Acute (3) Respiratory arrest Status: Acute Comment Review of Relevant I have reviewed the following items denise (where applicable) has been applied. Justifications for Admission Other Justification Hypoglycemia and altered mental status. JARRED PARMAR MD Nov 18, 2020 11:56
[2020-11-18 14:31] VITALS: BP 111/63
[2020-11-18] MEDS ORDERED: WARFARIN 3 MG TABLET. PO ONE (16:00)
[2020-11-18 19:55] VITALS: BP 139/77
[2020-11-18] MEDS: ATORVASTATIN CALCIUM 40 MG TABLET. PO SCH (21:17)
[2020-11-18 23:17] VITALS: BP 102/59
[2020-11-19 03:35] VITALS: BP 136/78
[2020-11-19] MEDS: INSULIN LISPRO 300 UNITS/3 ML VIAL. SQ SCH ×3 (06:00→16:41)
[2020-11-19 06:56] VITALS: BP 128/67
[2020-11-19] MEDS: DOCUSATE 100 MG/10 ML SOLUTION. PO SCH (08:36)
[2020-11-19] MEDS: METOPROLOL TART IMMED RELEASE 25 MG TABLET. PO SCH ×2 (08:37→21:04)
[2020-11-19] MEDS: POTASSIUM BICARB 20 MEQ EFFERVESCENT TABLET. PEG SCH (08:37)
[2020-11-19] MEDS: CLOPIDOGREL BISULFATE 75 MG TABLET PO SCH (08:37)
[2020-11-19] MEDS: AMIODARONE HCL 200 MG TABLET. PO SCH (08:38)
[2020-11-19] MEDS: LANSOPRAZOLE 30 MG TAB.RAP.DR FT SCH (08:38)
[2020-11-19] MEDS: ASPIRIN CHEWABLE 81 MG TABLET. PO SCH (08:38)
[2020-11-19] MEDS: FUROSEMIDE 40 MG/4 ML VIAL. IVP SCH (08:39)
[2020-11-19 11:20] VITALS: BP 99/54
--- NOTE | 2020-11-19 12:38 | PDOC ---
[facility] PROGRESS NOTE Date of Service DOS: DATE: 11/19/20 TIME: 12:37 Chief Complaint Chief Complaint Acute anemia Acute metabolic, infectious encephalopathy Acute hypoxic respiratory failure Healthcare associated pneumonia Acute hypoglycemia Hypokalemia Elevated troponins Severe protein malnutrition Morbid obesity AAA, 4 cm, infrarenal History of diabetes mellitus type 2 History of dyslipidemia history of hypertension History of recent STEMI History of CAD History of peripheral artery disease History of JEANNE History of CVA History of paroxysmal atrial fibrillation Ischemic cardiomyopathy History of Present Illness History of Present Illness 11/19 Patient evaluated and examined at bedside. He was on the trach collar at 8. Informed patient's niece today that really only thing waiting on now is guardianship to be approved. Hopeful for that to happen in the coming week. Otherwise continue to monitor respiratory status. No major neurologic changes. Plan of care discussed with bedside RN. 11/18 On trach collar when being seen. Still with minimal neurologic status. Once social issues sorted out well discharge. 11/17 Patient evaluated and examined at bedside. He was tolerating being on the trach collar when seen. No change in neurologic status really. I have written a letter to send to the local contact center representative with my support for his need of a guardian. 11/16 Patient evaluated and examined at bedside. Patient's niece at bedside discussed case at length with her and ongoing plan. He does present as movement in his upper extremities today. He did open his eyes to his niece's voice earlier. Continue current plan of care. 11/15 Patient evaluated and examined at bedside. Remains minimally responsive. He is discharged ready. Just waiting for social issues to be sorted out. Possible discharge 11/14: No sort of clinical change overnight. Remains encephalopathic. Can discharge whenever guardianship and social issues mediated. 11/13: Afebrile. Still no meaningful response to any sort of interaction. Remains on trach. PEG tube. Complicated social situation. Afebrile. BP a little up today. Continues to remain encephalopathic off sedation requiring 8 L trach shield O2 with O2 saturations 91%. Tolerating PEG feeds with free water boluses. INR 2.8. Discussed with anabel Guajardo she is reaching out to the rest of the family. 10: Afebrile. No meaningful following of commands, opens eyes. Requires 8L trach shield O2 to maintain O2 saturations 90%. No residuals on PEG tube feeds. Discussed with anabel Guajardo bedside she is going to reach out to the rest of the family now the family has been located. 11/10: Afebrile. Continues to be encephalopathic no meaningful eye contact movements not following commands. Requiring 8 L trach shield O2 to maintain saturations 91%. No residuals on tube feeds 45 cc/h. INR 2.8. Throughout heroic efforts by social work estranged family has been found and has a niece who will be visiting sometime potentially later today or tomorrow 11/09: Afebrile. Still encephalopathic not making any meaningful eye contact or movements not following commands. Waiting for guardianship. 8 L trach shield O2. Tolerating tube feeds with no residuals 45 cc/h. INR 2.6 11/08: Afebrile. Opens eyes but no meaningful contact not following commands. Requiring 8 L trach shield O2 mask. 11/07: Not responsive to stimuli, not making eye contact. Afebrile. Seen on 8 L trach collar canula. Hb 9.1 Renal labs stable INR 3.1. 11/06: Patient not meaningfully responding well. On trach shield and BiPAP as needed on trach. PEG feeds with no significant residuals. 11/05: Patient is still unresponsive. Pupils reactive to light and accommodation. No meaningful movements. Actively posturing at bed side. Has peg feeding at 45cc/hr. Trach shield at 8L and BIPAP PRN at 35%. There is an open wound at the site of the peg insertion. Wound care, Dr. Cristobal is consulted. 11/04: Patient is still unresponsive. Pupils reactive to light and accommodation. Actively posturing at bedside. No meaningful movements. Has peg feeding at 45cc/hr. Trach shield at 8L and BIPAP PRN at 35%. 11/03: Patient seen and examined. Discussed with RN and criminal justice social worker. Chart reviewed. Patient is still unresponsive. Actively decorticate posturing at bedside. Eyes rolled upward. No meaningful movements. Has peg feeding at 45cc/hr. The bleeding at the peg insertion site has stopped. 11/02: Patient seen and examined. Chart reviewd. Discussed with RN and criminal justice social worker. Patient is still unresponsive. No meaningful movements. Actively decorticate posturing at bedside. Has peg feeding running at 45cc/hr. Some bleeding at the peg insertion site. 11/01: Patient seen and examined. Discussed with criminal justice social worker and RN. Patient is still unresponsive. No meaningful movements. Peg feeding is running at 45cc/hr. Patient is actively posturing at bed side. Trach shield at 8L and BIPAP PRN at 35%. 10/31: Patient seen and examined. Chart reviewed. Discussed with criminal justice social worker and RN. Patient still unresponsive. Patient actively posturing at bed side. Has peg running at 45cc/hr. Vestibulo-ocular reflex intact. 10/30: Patient seen and examined. Discussed with criminal justice social worker and RN. Chart reviewed. Patient actively posturing at bed side. Has peg running at 45cc/hr. Mr Andrews is a 70-year-old male with a recent prolonged hospitalization for STEMI and respiratory failure for which she was treated with arterial thrombolysis for a right leg popliteal artery aneurysm and also had left heart cath with placement of a stent in the LAD and RCA comes in today after he was found obtunded at his detention facility. Apparently according to the nursing facility patient was in his usual state of health and he was conversa tional but then became altered. His blood glucose was found to be in the 30s. Glucose tabs and glucagon was given in route and his GCS reported at 6. Upon arrival patient's mental status did not improve and he was eventually intubated for airway protection. Of note EMS was bagging the patient through the nasal access. In the ED, patient was placed on a vent and pulmonology was consulted. Patient was also taken to the CT scanner for sanders scanning. Patient was started to wake up on the vent and sedation was ordered. 09/23: Patient examined at bedside. Intubated. Not on any sedation but unresponsive. Neurology consult in place. 09/24: Patient seen and examined at bedside. Remains intubated he is off sedation but still remains unresponsive. Planning for MRI brain in the morning. Further plan to be determined by MRI. 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 09/25: Afebrile, currently breathing on ventilator with FiO2 50%, PEEP 5. Had CODE BLUE in ICU this morning; received 2 rounds of CPR, epinephrine, and atropine with ROSC. MRI brain negative. Made DNR, and after discussion with Dr. Rubalcava he agrees. 09/26:: Afebrile. Still on vent, with FiO2 45%, PEEP 5. After discussion with Dr. Rubalcava yesterday, patient was made DNR. In the ED is likely a poor candidate for weaning trials may need trach in near future if no significant improvement. 09/27:: Afebrile. On vent with FiO2 40%, PEEP 5. Potassium 2.8 today, will replace. Warfarin has been resumed. Discussed with pharmacy, will resume aspirin and Plavix. May need tracheostomy by the end of the week if no improvement in mental status. 09/28:: Afebrile. On ventilator with FiO2 40%, PEEP 5. Warfarin has been resumed; INR 1.3 today. Some morning labs still pending; hemoglobin yesterday 7.3, will continue to monitor. Continue IV cefepime and supportive care. 09/29: Afebrile. Breathing on vent with FiO2 40%, PEEP 5. INR 1.2 today; pharmacy to help with warfarin dosing. White count within normal range, renal function stable. Spoke with pharmacy about cefepime 1 g every 8 hours dosing; this has been changed to cefepime 2 g every 8 hours. 09/30: Afebrile. Currently breathing on vent with FiO2 40%, PEEP 5. Continue antibiotics, cefepime 2 g every 8 hours. INR 1.4; continue warfarin dosing per pharmacy. Possible tracheostomy at some point. Critical care time 30 minutes reviewing charts, labs, examination, discussion with RN. 10/01: T-max 100.3 F. On ventilator with FiO2 40%, PEEP 5. Continue antibiotics, cefepime 2 g every 8 hours. INR 1.4, still subtherapeutic; continue warfarin dosing per pharmacy. Possible tracheostomy at some point. 10/02: No acute events overnight. Patient saturating 99% on vent settings of 10/450/40/5. Patient will likely need a trach and PEG at some point. We will hold warfarin and start 2 units PRBC transfusion. Patient's chart, labs, images were reviewed and discussed with RN 10/03: No acute events overnight. Patient sat 100% on minimal vent settings. No sedation at this point and patient is opening his eyes spontaneously. Not much response or spontaneous movements. Surgery has been consulted for tracheostomy. Patient will also likely need a PEG tube. 10/04: No acute events overnight. Patient saturating 90% on minimal vent settings. T-max 100.4 overnight. Plan for trach tomorrow with surgery. Patient's chart, labs, images were reviewed and discussed with RN 10/05: No acute events overnight. Patient saturating 99% on minimal vent settings. Plan for tracheostomy today. Consent is provided by authorization by 2 physicians due to patient having no close relatives or DPOA. Will resume heparin and warfarin bridging tomorrow after tracheostomy 10/07: No acute events overnight. Patient seen and examined bedside. On trach vent. Saturating 99%. Pending GI evaluation for possible PEG placement after discussing with cardiology whether to continue with Plavix. Possibly place PEG if patient is only on aspirin and stopping argatroban. 10/08: No acute events overnight. Patient continues to be on trach mechanical vent. Saturating 100%. Pending decision from GI whether to proceed with PEG placement depending on the type of anticoagulation patient will be on. 10/09: No overnight events. On trach with vent support 40% FiO2 PEEP of 5. Currently argatroban and propofol for minimal sedation. When sedation is weaned he has no meaningful movements but has pulled at his tracheostomy site. Unable to hold plavix due to recently placed stents. 10/10: Afebrile today. On trach with vent support 40% FiO2 PEEP of 5. Continue argatroban and changed to Aggrastat in anticipation of surgical consultation for potential laparoscopic PEG placement. INR 1.6. Hb greater than 9 no significant neurologic recovery today. 10/11: Afebrile. On trach with vent support 40% FiO2 PEEP of 5. INR 1.8. Not making meaningful eye contact. Labs otherwise stable. 10/12: Afebrile. Trach with vent support 40% FiO2 PEEP five O2 saturations 92%. INR 1.8, mag 1.8, Hb 8.4. Not following commands. Tentative plans for surgical PEG next week. 10/13: Afebrile. Trach with vent support 40% FiO2 PEEP 5. Eyes open, not tracking or following commands. Holding Plavix. On argatroban. 10/14: Afebrile. Trach with vent support 40% FiO2 PEEP of 5. Will open eyes intermittently not necessarily to voice. Good urine output. Labs stable. 10/15: Afebrile overnight. Trach with vent AC 40% fio2 PEEP 5. Had a very large bowel movement. Still not tracking. Hb 9, INR 1.7, glucose 144. Tentative plan for PEG 10/18/2020 CC time 30 minutes 10/16/20: Patient seen and examined in the ICU. He was resting and still on vent via trach. Has NG running via Dobhoff, feeding at 40cc/hr. AC/10/450/40% plus 5 PEEP. Discussed with RN. Chart reviewed. 10/17/20: Patient was seen and examined in the ICU today. Still on vent via trach at AC/10/450/40 plus 5 PEEP. While examined, patient was at 100% O2 saturation. Has SCDs on for DVT prophylaxis. Stauffer catheter in place. On IV argatroban. R subclavian triple lumen in place. Dobhoff running at 40cc/hr. Discussed with RN. Chart reviewed. 10/18/20: Patient seen and examined in ICU. His eyes are open. On vent via trach with settings that were recently changed to spontaneous respirations with FiO2 of 40 and 5 PEEP. Trach is clean and dry. Currently, oxygen saturation is at 100%. Stauffer to bedside and rectal bag in place. Discussed with RN. Chart reviewed. 10/19/20: Patient was seen and examined in the ICU today. His eyes were open and he was resting. On BiPAP via trach AVAPS/10/450/40 plus 5 PEEP. Trach is clean and dry. Has SCDs for DVT prophylaxis. Patient has rectal bag, Stauffer to bedside, and NG tube in place. Discussed with RN. Chart reviewed. 10/20/20 No acute events overnight. Patient seen and examined bedside. Transferred from the ICU. Continues to be nonverbal and not following much commands. Opens eyes to voice. Currently on BiPAP via trach on AVAPS setting 10/450/40 PEEP of 5. Trach site is clear. No signs of infections. Patient's chart, labs, images were reviewed and discussed with RN 10/21/2020 No acute events overnight. Patient seen and examined bedside. Afebrile. Continues to be nonverbal but opens eyes to voice. Currently on BiPAP. Kaden raza's chart, labs, images were reviewed and discussed with RN. 10/22/2020 No acute events overnight. Patient seen examined bedside. Continue with argatroban until warfarin goal INR of 4 and maintenance goal of 2-3. Please see track repairer note. Pending appointing a legal guardian. Patient's chart, labs, images were reviewed and discussed with RN 10/23/2020 laparoscopic gastrostomy tube placement (specifically 24 F) Oct discharge planning in place once court appointed DPOA available Acute anemia Acute metabolic, infectious encephalopathy Acute respiratory failure Healthcare associated pneumonia Acute hypoglycemia Hypokalemia Elevated troponins Severe protein malnutrition Morbid obesity AAA, 4 cm, infrarenal History of diabetes mellitus type 2 History of dyslipidemia history of hypertension Patient seen examined bedside. argatroban until warfarin goal INR of 4 and maintenance goal of 2-3. Pending appointing a legal guardian. Patient's chart, labs, images were reviewed and discussed with KARY Cardenas Enteric tube with metallic tip in the left upper quadrant likely in the stomach. 10/24/2020 doing well on trach shield on a 24-hour basis./ blood gases shows no worsening hypercapnia while on trach shield. No apneic breathing reported. laparoscopic gastrostomy tube placement (specifically 24 F) Oct discharge planning in place once court appointed DPOA available Acute anemia Acute metabolic, infectious encephalopathy Acute respiratory failure Healthcare associated pneumonia Acute hypoglycemia Hypokalemia Elevated troponins Severe protein malnutrition Morbid obesity AAA, 4 cm, infrarenal History of diabetes mellitus type 2 History of dyslipidemia history of hypertension Patient seen examined bedside. argatroban until warfarin goal INR of 4 and maintenance goal of 2-3. Pending appointing a legal guardian. Patient's chart, labs, images were reviewed and discussed with KARY Cardenas Enteric tube with metallic tip in the left upper quadrant likely in the stomach. Home on plavix and warfarin D/C INITIAL PLAN TO [facility]END[facility]/ discharge planning in place once court appointed DPOA available D/W RN 10/25/2020 doing well on trach shield on a 24-hour basis./ blood gases shows no worsening hypercapnia while on trach shield. No apneic breathing reported. laparoscopic gastrostomy tube placement (specifically 24 F) Oct discharge planning in place once court appointed DPOA available Acute anemia Acute metabolic, infectious encephalopathy Acute respiratory failure Healthcare associated pneumonia Acute hypoglycemia Hypokalemia Elevated troponins Severe protein malnutrition Morbid obesity AAA, 4 cm, infrarenal History of diabetes mellitus type 2 History of dyslipidemia history of hypertension Patient seen examined bedside. argatroban until warfarin goal INR of 4 and maintenance goal of 2-3. Pending appointing a legal guardian. Patient's chart, labs, images were reviewed and discussed with KARY Cardenas Enteric tube with metallic tip in the left upper quadrant likely in the stomach. Home on plavix and warfarin D/C INITIAL PLAN TO [facility] PEND[facility]/ discharge planning in place once court appointed DPOA available D/W RN 10/26/2020 HGB 9.4 doing well on trach shield on a 24-hour basis./ blood gases shows no worsening hypercapnia while on trach shield. No apneic breathing reported. laparoscopic gastrostomy tube placement (specifically 24 F) Oct discharge planning in place once court appointed DPOA available Acute anemia Acute metabolic, infectious encephalopathy Acute respiratory failure Healthcare associated pneumonia Acute hypoglycemia Hypokalemia Elevated troponins Severe protein malnutrition Morbid obesity AAA, 4 cm, infrarenal History of diabetes mellitus type 2 History of dyslipidemia history of hypertension Patient seen examined bedside. argatroban until warfarin goal INR of 4 and maintenance goal of 2-3. Pending appointing a legal guardian. Patient's chart, labs, images were reviewed and discussed with KARY Cardenas Enteric tube with metallic tip in the left upper quadrant likely in the stomach. Home on plavix and warfarin D/C INITIAL PLAN TO [facility]END[facility]/ discharge planning in place once court appointed DPOA available D/W RN 10/27/2020 HGB 9.4 doing well on trach shield on a 24-hour basis./ blood gases shows no worsening hypercapnia while on trach shield. No apneic breathing reported. laparoscopic gastrostomy tube placement (specifically 24 F) Oct discharge planning in place once court appointed DPOA available Acute anemia Acute metabolic, infectious encephalopathy Acute respiratory failure Healthcare associated pneumonia Acute hypoglycemia Hypokalemia Elevated troponins Severe protein malnutrition Morbid obesity AAA, 4 cm, infrarenal History of diabetes mellitus type 2 History of dyslipidemia history of hypertension Patient seen examined bedside. argatroban until warfarin goal INR of 4 and maintenance goal of 2-3. Pending appointing a legal guardian. Patient's chart, labs, images were reviewed and discussed with KARY Cardenas Enteric tube with metallic tip in the left upper quadrant likely in the stomach. Home on plavix and warfarin D/C INITIAL PLAN TO [facility]/ discharge planning in place once court appointed DPOA available D/W RN 10/28/2020 HGB 9.4 doing well on trach shield on a 24-hour basis./ blood gases shows no worsening hypercapnia while on trach shield. No apneic breathing reported. laparoscopic gastrostomy tube placement (specifically 24 F) Oct discharge planning in place once court appointed DPOA available Acute anemia Acute metabolic, infectious encephalopathy Acute respiratory failure Healthcare associated pneumonia Acute hypoglycemia Hypokalemia Elevated troponins Severe protein malnutrition Morbid obesity AAA, 4 cm, infrarenal History of diabetes mellitus type 2 History of dyslipidemia history of hypertension Patient seen examined bedside. argatroban until warfarin goal INR of 4 and maintenance goal of 2-3. Pending appointing a legal guardian. Patient's chart, labs, images were reviewed and discussed with KARY Cardenas Enteric tube with metallic tip in the left upper quadrant likely in the stomach. Home on plavix and warfarin D/C INITIAL PLAN TO [facility]END[facility]/ discharge planning in place once court appointed DPOA available D/W RN Vitals/I&O Vitals/I&O: Vital Signs Date Time Temp Pulse Resp B/P (MAP) Pulse Ox O2 Delivery O2 Flow Rate FiO2 11/19/20 11:31 96 Tracheal Collar 8.0 11/19/20 11:20 98.9 86 18 99/54 (69) 98.9 I & O 11/18/20 11/18/20 11/19/20 15:00 23:00 07:00 Intake Total 585 ml 580 ml 320 ml Output Total 800 ml 300 ml Balance 585 ml -220 ml 20 ml Physical Exam Physical Exam: Neuro: actively posturing. Pulpils dialated but reactive to light and a ccomendation. Flaccidity in the lower extremity bilaterally. Equivocal Babinski. General: Other (actively posturing. No meaningful movements. ) Heart: Regular rate (SR), Other (distant heart sounds) Lungs: Other (Tracheostomy with trach shield. Deminished breath sounds.) Abdomen: Soft, Other (g tube in place) Extremities: No cyanosis, Other (2-3+ bilateral LE pitting edema) Skin: No rashes, No significant lesion Labs Labs: Laboratory Tests Test 11/18/20 17:08 11/18/20 23:53 11/19/20 11:21 Glucose (Fingerstick) 170 mg/dL (70-99) 165 mg/dL (70-99) 176 mg/dL (70-99) Assessment and Plan Assessmemt and Plan Problems Medical Problems: (1) NSTEMI (non-ST elevated myocardial infarction) Status: Acute (2) Obtundation Status: Acute (3) Respiratory arrest Status: Acute Comment Review of Relevant I have reviewed the following items dneise (where applicable) has been applied. Medications: Current Medications Medications (Trade) Dose Ordered Sig/Dru Route PRN Reason Start Time Stop Time Status Last Admin Dose Admin Warfarin Sodium (Coumadin) 3 mg 1X WARF ONCE PO 11/18/20 16:00 11/18/20 16:01 DC 11/18/20 16:00 Justifications for Admission Other Justification Hypoglycemia and altered mental status. JARRED PARMAR MD Nov 19, 2020 12:38
[2020-11-19 14:28] LABS: BASO # 0.1 x10^3/uL (0.0-0.2); BASO % 1 % (0-3); EOS # 0.5 x10^3/uL (0.0-0.7); EOS % 4 % (0-3); HEMATOCRIT 22.2 % (39.0-53.0); HEMOGLOBIN 7.3 g/dL (13.0-17.5); LYMPH # 2.1 x10^3/uL (1.0-4.8); LYMPH % 18 % (24-48); MEAN CORPUSCULAR HEMOGLOBIN 31 pg (25-35); MEAN CORPUSCULAR HGB CONC 33 g/dL (31-37); MEAN CORPUSCULAR VOLUME 93 fL (79-100); MONO # 0.8 x10^3/uL (0.0-1.1); MONO % 7 % (0-9); NEUT # 8.3 x10^3/uL (1.8-7.7); NEUT % 71 % (31-73); PLATELET COUNT 266 x10^3/uL (140-400); RED BLOOD COUNT 2.39 x10^6/uL (4.30-5.70); RED CELL DISTRIBUTION WIDTH 15.1 % (11.5-14.5); WHITE BLOOD COUNT 11.7 x10^3/uL (4.0-11.0)
[2020-11-19 15:00] VITALS: BP 103/56
[2020-11-19] MEDS ORDERED: WARFARIN 4 MG TABLET. PO SCH (16:00)
[2020-11-19] MEDS: CLINDAMYCIN HCL 150 MG CAPSULE. PEG SCH ×2 (16:39→18:27)
[2020-11-19] MEDS: FLUCONAZOLE 100 MG TABLET. PEG SCH (16:39)
[2020-11-19 19:45] VITALS: BP 143/66
[2020-11-19] MEDS: ATORVASTATIN CALCIUM 40 MG TABLET. PO SCH (21:04)
[2020-11-19 23:05] VITALS: BP 117/66
[2020-11-20] MEDS: CLINDAMYCIN HCL 150 MG CAPSULE. PEG SCH ×4 (01:13→18:05)
[2020-11-20 03:30] VITALS: BP 139/80
[2020-11-20] MEDS: INSULIN LISPRO 300 UNITS/3 ML VIAL. SQ SCH ×4 (06:00→18:06)
[2020-11-20 07:00] VITALS: BP 114/71
[2020-11-20 07:23] LABS: PROTHROMBIN TIME PATIENT 36.8 SEC (11.7-14.0)
[2020-11-20] MEDS: ASPIRIN CHEWABLE 81 MG TABLET. PO SCH (09:29)
[2020-11-20] MEDS: POTASSIUM BICARB 20 MEQ EFFERVESCENT TABLET. PEG SCH (09:29)
[2020-11-20] MEDS: DOCUSATE 100 MG/10 ML SOLUTION. PO SCH (09:29)
[2020-11-20] MEDS: FLUCONAZOLE 100 MG TABLET. PEG SCH (09:30)
[2020-11-20] MEDS: METOPROLOL TART IMMED RELEASE 25 MG TABLET. PO SCH ×2 (09:30→20:56)
[2020-11-20] MEDS: LANSOPRAZOLE 30 MG TAB.RAP.DR FT SCH (09:30)
[2020-11-20] MEDS: CLOPIDOGREL BISULFATE 75 MG TABLET PO SCH (09:30)
[2020-11-20] MEDS: AMIODARONE HCL 200 MG TABLET. PO SCH (09:31)
[2020-11-20] MEDS: FUROSEMIDE 40 MG/4 ML VIAL. IVP SCH (09:32)
--- NOTE | 2020-11-20 10:24 | PDOC ---
PROGRESS NOTES Date of Service DATE: 11/20/20 TIME: 10:23 Assessment Problems Medical Problems: (1) NSTEMI (non-ST elevated myocardial infarction) Status: Acute (2) Obtundation Status: Acute (3) Respiratory arrest Status: Acute Anoxic encephalopathy Found obtunded at [facility], admitted 09/22, unresponsive, hypoglycemic, no new stroke on MRI CODE BLUE on 09/26 Last admit had prolonged encephalopathy following the development of cardiogenic shock, STEMI, with negative EEG and CT head Remote history of seizures Critical illness neuropathy/myopathy Respiratory failure Last admit and this admit: septic shock, leukocytosis, lactic acidosis, acute kidney injury, 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, thrombocytopenia (heparin-induced), hematuria, anemia, hyperbilirubinemia Status-post tracheostomy on 10/05 Plan I see patient's niece is applying for guardianship and social work is working on transfer to [facility] DO NOT RESUSCITATE No prognosis for meaningful recovery Neurology will follow at intervals Subjective None Objective Vital Signs Date Time Temp Pulse Resp B/P (MAP) Pulse Ox O2 Delivery O2 Flow Rate FiO2 11/20/20 09:31 87 114/71 11/20/20 07:57 100 V60 11/20/20 07:00 99.4 22 99.4 11/20/20 04:00 8.0 Intake and Output 11/20/20 07:00 Intake Total 1330 ml Output Total 1600 ml Balance -270 ml Intake Oral 0 ml Tube Feeding 1330 ml Output Urine Total 1600 ml # Bowel Movements 1 PHYSICAL EXAM Trached on BiPAP Eyes fixed in elevation, neck extended, arms flexed, legs extended PERRL. EOMI. CN: no focal findings. Muscle tone: increased Muscle strength: arms flexed, some purposeful movement DTR: 1+ Plantar reflex: Silent Gait: not examined Sensory exam: Not testable Cerebellar: not testable Review of Relevant I have reviewed the following items denise (where applicable) has been applied. Labs Laboratory Tests Test 11/18/20 12:21 11/18/20 17:08 11/18/20 23:53 11/19/20 11:21 Glucose (Fingerstick) 184 mg/dL (70-99) 170 mg/dL (70-99) 165 mg/dL (70-99) 176 mg/dL (70-99) Test 11/19/20 14:02 11/19/20 16:25 11/20/20 00:05 11/20/20 06:20 White Blood Count 11.7 x10^3/uL (4.0-11.0) Red Blood Count 2.39 x10^6/uL (4.30-5.70) Hemoglobin 7.3 g/dL (13.0-17.5) Hematocrit 22.2 % (39.0-53.0) Mean Corpuscular Volume 93 fL (79-100) Mean Corpuscular Hemoglobin 31 pg (25-35) Mean Corpuscular Hemoglobin Concent 33 g/dL (31-37) Red Cell Distribution Width 15.1 % (11.5-14.5) Platelet Count 266 x10^3/uL (140-400) Neutrophils (%) (Auto) 71 % (31-73) Lymphocytes (%) (Auto) 18 % (24-48) Monocytes (%) (Auto) 7 % (0-9) Eosinophils (%) (Auto) 4 % (0-3) Basophils (%) (Auto) 1 % (0-3) Neutrophils # (Auto) 8.3 x10^3/uL (1.8-7.7) Lymphocytes # (Auto) 2.1 x10^3/uL (1.0-4.8) Monocytes # (Auto) 0.8 x10^3/uL (0.0-1.1) Eosinophils # (Auto) 0.5 x10^3/uL (0.0-0.7) Basophils # (Auto) 0.1 x10^3/uL (0.0-0.2) C-Reactive Protein, Quantitative 213.9 mg/L (0-3.3) Glucose (Fingerstick) 157 mg/dL (70-99) 133 mg/dL (70-99) Prothrombin Time 36.8 SEC (11.7-14.0) Prothromb Time International Ratio 3.8 (0.8-1.1) Test 11/20/20 06:33 Glucose (Fingerstick) 151 mg/dL (70-99) Laboratory Tests Test 11/19/20 11:21 11/19/20 14:02 11/19/20 16:25 11/20/20 00:05 Glucose (Fingerstick) 176 mg/dL (70-99) 157 mg/dL (70-99) 133 mg/dL (70-99) White Blood Count 11.7 x10^3/uL (4.0-11.0) Red Blood Count 2.39 x10^6/uL (4.30-5.70) Hemoglobin 7.3 g/dL (13.0-17.5) Hematocrit 22.2 % (39.0-53.0) Mean Corpuscular Volume 93 fL (79-100) Mean Corpuscular Hemoglobin 31 pg (25-35) Mean Corpuscular Hemoglobin Concent 33 g/dL (31-37) Red Cell Distribution Width 15.1 % (11.5-14.5) Platelet Count 266 x10^3/uL (140-400) Neutrophils (%) (Auto) 71 % (31-73) Lymphocytes (%) (Auto) 18 % (24-48) Monocytes (%) (Auto) 7 % (0-9) Eosinophils (%) (Auto) 4 % (0-3) Basophils (%) (Auto) 1 % (0-3) Neutrophils # (Auto) 8.3 x10^3/uL (1.8-7.7) Lymphocytes # (Auto) 2.1 x10^3/uL (1.0-4.8) Monocytes # (Auto) 0.8 x10^3/uL (0.0-1.1) Eosinophils # (Auto) 0.5 x10^3/uL (0.0-0.7) Basophils # (Auto) 0.1 x10^3/uL (0.0-0.2) C-Reactive Protein, Quantitative 213.9 mg/L (0-3.3) Test 11/20/20 06:20 11/20/20 06:33 Prothrombin Time 36.8 SEC (11.7-14.0) Prothromb Time International Ratio 3.8 (0.8-1.1) Glucose (Fingerstick) 151 mg/dL (70-99) Medications Current Medications Fentanyl Citrate 30 ml @ 0 mls/hr CONT PRN IV SEE PROTOCOL; Start 09/22/20 at 09:45; Stop 10/13/20 at 09:24; Status DC Propofol 100 ml @ 0 mls/hr CONT PRN IV PER PROTOCOL Last administered on 09/22/20at 10:30; Start 09/22/20 at 09:45; Stop 09/26/20 at 20:12; Status DC Fentanyl Citrate (Fentanyl 2ml Vial) 25 mcg PRN Q1HR PRN IV SEE COMMENTS; Start 09/22/20 at 09:45; Stop 10/24/20 at 18:57; Status DC Fentanyl Citrate (Fentanyl 2ml Vial) 50 mcg PRN Q1HR PRN IV SEE COMMENTS Last a dministered on 10/03/20at 01:22; Start 09/22/20 at 09:45; Stop 10/24/20 at 18:57; Status DC Chlorhexidine Gluconate (Peridex) 15 ml BID MM ; Start 09/22/20 at 10:00; Stop 09/22/20 at 19:54; Status DC Midazolam HCl (Versed) 2 mg 1X ONCE IV ; Start 09/22/20 at 10:30; Stop 09/22/20 at 10:31; Status DC Iohexol (Omnipaque 300 Mg/ml) 75 ml 1X ONCE IV Last administered on 09/22/20at 11:06; Start 09/22/20 at 10:45; Stop 09/22/20 at 10:46; Status DC Info (CONTRAST GIVEN -- Rx MONITORING) 1 each PRN DAILY PRN MC SEE COMMENTS; Start 09/22/20 at 10:45; Stop 09/24/20 at 10:44; Status DC Potassium Chloride/Water 100 ml @ 100 mls/hr Q1H IV Last administered on 09/22/20at 20:27; Start 09/22/20 at 15:00; Stop 09/22/20 at 18:59; Status DC Cefepime HCl (Maxipime) 1 gm Q8HRS IVP Last administered on 09/29/20at 05:52; Start 09/22/20 at 14:00; Stop 09/29/20 at 10:32; Status DC Sennosides (Senna) 17.2 mg PRN BID PRN PO CONSTIPATION; Start 09/22/20 at 14:00 Docusate Sodium (Colace) 100 mg PRN DAILY PRN PO HARD STOOLS; Start 09/22/20 at 14:00; Stop 09/22/20 at 14:00; Status DC Ondansetron HCl (Zofran) 4 mg PRN Q6HRS PRN IVP NAUSEA/VOMITING, 1ST CHOICE; Start 09/22/20 at 14:00 Insulin Human Lispro (HumaLOG) 0-7 UNITS Q6HRS SQ Last administered on 11/19/20at 16:41; Start 09/22/20 at 18:00 Dextrose (Dextrose 50%-Water Syringe) 12.5 gm PRN Q15MIN PRN IV SEE COMMENTS Last administered on 09/22/20at 17:47; Start 09/22/20 at 14:00 Dextrose/Sodium Chloride 1,000 ml @ 50 mls/hr Q20H IV Last administered on 10/12/20at 11:04; Start 09/22/20 at 14:00; Stop 10/13/20 at 09:24; Status DC Acetaminophen (Tylenol) 650 mg PRN Q4HRS PRN PO TEMP OVER 100.4F OR MILD PAIN Last administered on 09/23/20at 00:20; Start 09/22/20 at 14:00; Stop 09/23/20 at 16:24; Status DC Enoxaparin Sodium (Lovenox 40mg Syringe) 40 mg Q24H SQ ; Start 09/22/20 at 14:00; Status UNV Pantoprazole Sodium (PROTONIX VIAL for IV PUSH) 40 mg DAILY IVP Last administered on 11/09/20at 09:07; Start 09/23/20 at 09:00; Stop 11/10/20 at 07:44; Status DC Prochlorperazine Edisylate (Compazine) 10 mg PRN Q6HRS PRN IV NAUSEA/VOMITING, 2ND CHOICE; Start 09/22/20 at 14:00 Etomidate (Amidate) 20 mg STK-MED ONCE IV ; Start 09/22/20 at 17:46; Stop 09/22/20 at 17:46; Status DC Rocuronium [place] (Zemuron) 50 mg STK-MED ONCE .ROUTE ; Start 09/22/20 at 17:46; Stop 09/22/20 at 17:47; Status DC Norepinephrine Bitartrate 8 mg/ Dextrose 258 ml @ 21.769 mls/ hr CONT PRN IV PER PROTOCOL Last administered on 09/24/20at 13:20; Start 09/22/20 at 18:15; Stop 10/13/20 at 09:24; Status DC Potassium Chloride/Water 100 ml @ 100 mls/hr Q1H IV Last administered on 09/23/20at 14:30; Start 09/23/20 at 07:00; Stop 09/23/20 at 14:59; Status DC Acetaminophen (Tylenol) 650 mg PRN Q6HRS PRN PEG MILD PAIN / TEMP > 100.3'F Last administered on 11/18/20at 21:17; Start 09/23/20 at 16:30 Warfarin Sodium (Coumadin Per Pharmacy) 1 each PRN DAILY PRN MC SEE COMMENTS Last administered on 10/01/20at 12:32; Start 09/24/20 at 12:30; Stop 10/02/20 at 05:55; Status DC Warfarin Sodium (Coumadin) 5 mg 1X WARF ONCE PO Last administered on 09/24/20at 17:42; Start 09/24/20 at 16:00; Stop 09/24/20 at 16:01; Status DC Warfarin Sodium (Coumadin - No Dose Today) 1 each 1X WARF ONCE MC ; Start 09/25/20 at 16:00; Stop 09/25/20 at 16:01; Status DC Warfarin Sodium (Coumadin) 1 mg 1X WARF ONCE PO Last administered on 09/26/20at 16:00; Start 09/26/20 at 16:00; Stop 09/26/20 at 16:01; Status DC Propofol 100 ml @ 3.174 mls/ hr CONT PRN IV PER PROTOCOL Last administered on 10/09/20at 04:43; Start 09/26/20 at 20:15; Stop 10/13/20 at 09:24; Status DC Atropine Sulfate (ATROPINE 1mg SYRINGE) 1 mg STK-MED ONCE .ROUTE ; Start 09/25/20 at 10:00; Stop 09/27/20 at 08:20; Status DC Epinephrine HCl (EPINEPHrine SYRINGE) 1 mg STK-MED ONCE .ROUTE ; Start 09/25/20 at 10:00; Stop 09/27/20 at 08:20; Status DC Warfarin Sodium (Coumadin) 2 mg 1X WARF ONCE PO Last administered on 09/27/20at 17:53; Start 09/27/20 at 16:00; Stop 09/27/20 at 16:01; Status DC Aspirin (Aspirin Chewable) 81 mg DAILYWBKFT PO Last administered on 10/06/20at 11:39; Start 09/27/20 at 09:30; Stop 10/06/20 at 16:23; Status DC Clopidogrel Bisulfate (Plavix) 75 mg DAILYWBKFT PO Last administered on 10/09/20 at 09:24; Start 09/27/20 at 09:30; Stop 10/09/20 at 17:03; Status DC Potassium Chloride/Water 100 ml @ 100 mls/hr Q1H IV Last administered on 09/27/20at 12:45; Start 09/27/20 at 11:30; Stop 09/27/20 at 13:29; Status DC Warfarin Sodium (Coumadin) 3 mg 1X WARF ONCE PO Last administered on 09/28/20at 18:18; Start 09/28/20 at 16:00; Stop 09/28/20 at 16:01; Status DC Cefepime HCl (Maxipime) 2 gm Q8HRS IVP Last administered on 10/20/20at 05:36; Start 09/29/20 at 14:00; Stop 10/20/20 at 13:23; Status DC Warfarin Sodium (Coumadin) 3 mg 1X WARF ONCE PO Last administered on 09/29/20at 16:55; Start 09/29/20 at 16:00; Stop 09/29/20 at 16:01; Status DC Warfarin Sodium (Coumadin) 3 mg 1X WARF ONCE PO Last administered on 09/30/20at 16:00; Start 09/30/20 at 16:00; Stop 09/30/20 at 16:01; Status DC Warfarin Sodium (Coumadin) 5 mg 1X WARF ONCE PO Last administered on 10/01/20at 16:35; Start 10/01/20 at 16:00; Stop 10/01/20 at 16:01; Status DC Multi-Ingred Cream/Lotion/Oil/ Oint (Artificial Tears Eye Ointment) 1 sudheer PRN Q1HR PRN OU DRY EYE Last administered on 10/03/20at 12:24; Start 10/02/20 at 12:45 Fentanyl Citrate (Fentanyl 2ml Vial) 25 mcg PRN Q5MIN PRN IVP MILD PAIN 1-3; Start 10/05/20 at 06:00; Stop 10/06/20 at 05:59; Status DC Fentanyl Citrate (Fentanyl 2ml Vial) 50 mcg PRN Q5MIN PRN IVP MODERATE PAIN 4- 6; Start 10/05/20 at 06:00; Stop 10/06/20 at 05:59; Status DC Morphine Sulfate (Morphine Sulfate) 1 mg PRN Q10MIN PRN IVP SEVERE PAIN 7-10; Start 10/05/20 at 06:00; Stop 10/06/20 at 05:59; Status UNV Ringer's Solution 1,000 ml @ 30 mls/hr Q24H IV ; Start 10/05/20 at 06:00; Stop 10/05/20 at 17:59; Status DC Hydromorphone HCl (Dilaudid) 0.5 mg PRN Q10MIN PRN IVP SEVERE PAIN 7-10, 2nd CHOICE; Start 10/05/20 at 06:00; Stop 10/06/20 at 05:59; Status UNV Prochlorperazine Edisylate (Compazine) 5 mg PACU PRN PRN IVP NAUSEA, MRX1; Start 10/05/20 at 06:00; Stop 10/06/20 at 05:59; Status DC Bupivacaine HCl/ Epinephrine Bitart (Sensorcain-Epi 0.5%-1:265470 Mpf) 30 ml STK-MED ONCE .ROUTE Last administered on 10/05/20at 10:09; Start 10/05/20 at 07:12; Stop 10/05/20 at 07:12; Status DC Cellulose (Surgicel Fibrillar 1x2) 1 each STK-MED ONCE .ROUTE Last administered on 10/05/20at 10:30; Start 10/05/20 at 07:12; Stop 10/05/20 at 07:12; Status DC Rocuronium [place] (Zemuron) 50 mg STK-MED ONCE .ROUTE ; Start 10/05/20 at 09:06; Stop 10/05/20 at 09:06; Status DC Rocuronium [place] (Zemuron) 50 mg STK-MED ONCE .ROUTE ; Start 10/05/20 at 10:10; Stop 10/05/20 at 10:10; Status DC Warfarin Sodium (Coumadin Per Pharmacy) 1 each PRN DAILY PRN MC SEE COMMENTS Last administered on 10/06/20at 09:32; Start 10/05/20 at 14:00; Stop 10/06/20 at 16:23; Status DC Argatroban (Argatroban Per Pharmacy) 1 each PRN DAILY PRN MC SEE COMMENTS Last administered on 10/13/20at 16:34; Start 10/05/20 at 14:00; Stop 10/24/20 at 09:37; Status DC Argatroban 50 mg/ Sodium Chloride 50 ml @ 6.48 mls/hr CONT PRN IV ADJUST PER PTT; Start 10/05/20 at 14:00; Stop 10/05/20 at 13:59; Status DC Argatroban 50 mg/ Sodium Chloride 50 ml @ 6.48 mls/hr CONT PRN IV ADJUST PER PTT; Start 10/06/20 at 00:00; Status Cancel Warfarin Sodium (Coumadin) 5 mg 1X WARF ONCE PO Last administered on 10/05/20at 21:23; Start 10/05/20 at 16:00; Stop 10/05/20 at 16:01; Status DC Argatroban 50 mg/ Sodium Chloride 50 ml @ 0 mls/hr CONT PRN IV PER PROTOCOL Last administered on 10/19/20at 22:13; Start 10/06/20 at 09:00; Stop 10/20/20 at 13:02; Status DC Warfarin Sodium (Coumadin) 5 mg 1X WARF ONCE PO ; Start 10/06/20 at 16:00; Stop 10/06/20 at 16:01; Status Cancel Amiodarone HCl (Cordarone) 400 mg DAILY PO Last administered on 11/20/20at 09:31; Start 10/06/20 at 10:00 Atorvastatin Calcium (Lipitor) 40 mg QHS PO Last administered on 11/19/20at 21:04; Start 10/06/20 at 21:00 Metoprolol Tartrate (Lopressor) 25 mg BID PO Last administered on 11/20/20 09:30; Start 10/06/20 at 10:00 Furosemide (Lasix) 40 mg DAILY IVP Last administered on 11/20/20at 09:32; Start 10/06/20 at 10:00 Potassium Bicarbonate (Potassium Effervescent Tablet) 20 meq DAILY PEG Last administered on 11/20/20at 09:29; Start 10/06/20 at 10:00 Tirofiban/Sodium Chloride 100 ml @ 0 mls/hr CONT PRN IV PER PROTOCOL Last administered on 10/11/20at 14:11; Start 10/09/20 at 17:00; Stop 10/11/20 at 20:21; Status DC Albumin Human 100 ml @ 100 mls/hr 1X ONCE IV Last administered on 10/12/20at 15:22; Start 10/12/20 at 14:00; Stop 10/12/20 at 14:59; Status DC Furosemide (Lasix) 40 mg 1X ONCE IVP Last administered on 10/12/20at 15:22; Start 10/12/20 at 15:00; Stop 10/12/20 at 15:01; Status DC Aspirin (Aspirin Chewable) 81 mg 1X ONCE PO Last administered on 10/13/20at 12:25; Start 10/13/20 at 10:30; Stop 10/13/20 at 10:31; Status DC Aspirin (Aspirin Chewable) 81 mg DAILYWBKFT PO Last administered on 11/20/20at 09:29; Start 10/14/20 at 08:00 Fentanyl Citrate (Fentanyl 2ml Vial) 25 mcg PRN Q5MIN PRN IVP MILD PAIN 1-3; Start 10/18/20 at 06:00; Stop 10/18/20 at 20:00; Status DC Ringer's Solution 1,000 ml @ 30 mls/hr Q24H IV Last administered on 10/18/20at 06:00; Start 10/18/20 at 06:00; Stop 10/18/20 at 17:59; Status DC Bupivacaine HCl/ Epinephrine Bitart (Sensorcain-Epi 0.5% Kit) 30 ml STK-MED ONCE .ROUTE Last administered on 10/18/20at 11:04; Start 10/18/20 at 10:23; Stop 10/18/20 at 10:24; Status DC Rocuronium [place] (Zemuron) 50 mg STK-MED ONCE .ROUTE ; Start 10/18/20 at 10:48; Stop 10/18/20 at 10:48; Status DC Sevoflurane (Ultane) 60 ml STK-MED ONCE IH ; Start 10/18/20 at 11:13; Stop 10/18/20 at 11:13; Status DC Fentanyl Citrate (Fentanyl 2ml Vial) 100 mcg STK-MED ONCE .ROUTE ; Start 10/18/20 at 11:14; Stop 10/18/20 at 11:14; Status DC Phenylephrine HCl (PHENYLEPHRINE in 0.9% NACL PF) 1 mg STK-MED ONCE IV ; Start 10/18/20 at 11:55; Stop 10/18/20 at 11:56; Status DC Argatroban (Argatroban Per Pharmacy) 1 each PRN DAILY PRN MC SEE COMMENTS; Start 10/19/20 at 10:30; Status UNV Clopidogrel Bisulfate (Plavix) 75 mg DAILYWBKFT PO Last administered on 11/20/20at 09:30; Start 10/19/20 at 14:00 Warfarin Sodium (Coumadin Per Pharmacy) 1 each PRN DAILY PRN MC SEE COMMENTS Last administered on 11/18/20at 12:45; Start 10/19/20 at 13:15 Warfarin Sodium (Coumadin) 5 mg 1X WARF ONCE PO Last administered on 10/19/20at 15:24; Start 10/19/20 at 16:00; Stop 10/19/20 at 16:01; Status DC Warfarin Sodium (Coumadin) 5 mg 1X WARF ONCE PO Last administered on 10/20/20at 19:10; Start 10/20/20 at 16:00; Stop 10/20/20 at 16:01; Status DC Argatroban 50 mg/ Sodium Chloride 50 ml @ 0 mls/hr CONT PRN IV PER PROTOCOL Last administered on 10/24/20at 01:10; Start 10/20/20 at 13:15; Stop 10/24/20 at 09:37; Status DC Warfarin Sodium (Coumadin) 6 mg 1X WARF ONCE PO Last administered on 10/21/20at 17:56; Start 10/21/20 at 16:00; Stop 10/21/20 at 16:01; Status DC Warfarin Sodium (Coumadin) 7.5 mg 1X WARF ONCE PO Last administered on 10/22/20at 17:45; Start 10/22/20 at 16:00; Stop 10/22/20 at 16:01; Status DC Warfarin Sodium (Coumadin) 6 mg 1X WARF ONCE PO Last administered on 10/23/20at 17:05; Start 10/23/20 at 16:00; Stop 10/23/20 at 16:01; Status DC Warfarin Sodium (Coumadin) 4 mg 1X WARF ONCE PO ; Start 10/24/20 at 16:00; Stop 10/24/20 at 10:45; Status DC Warfarin Sodium (Coumadin) 4 mg 1X WARF ONCE PO Last administered on 10/24/20at 17:52; Start 10/24/20 at 16:00; Stop 10/24/20 at 16:01; Status DC Warfarin Sodium (Coumadin) 5 mg 1X WARF ONCE PO Last administered on 10/25/20at 16:51; Start 10/25/20 at 16:00; Stop 10/25/20 at 16:01; Status DC Warfarin Sodium (Coumadin) 6 mg 1X WARF ONCE PO Last administered on 10/26/20at 17:24; Start 10/26/20 at 16:00; Stop 10/26/20 at 16:01; Status DC Alteplase, Recombinant (Cathflo For Central Catheter Clearance) 1 mg 1X ONCE INT CAT Last administered on 10/26/20at 21:50; Start 10/26/20 at 18:30; Stop 10/26/20 at 18:31; Status DC Warfarin Sodium (Coumadin) 6 mg 1X WARF ONCE PO Last administered on 10/27/20at 16:00; Start 10/27/20 at 16:00; Stop 10/27/20 at 16:01; Status DC Warfarin Sodium (Coumadin) 5 mg 1X WARF ONCE PO Last administered on 10/28/20at 18:32; Start 10/28/20 at 16:00; Stop 10/28/20 at 16:01; Status DC Warfarin Sodium (Coumadin) 4 mg 1X WARF ONCE PO Last administered on 10/29/20at 16:51; Start 10/29/20 at 16:00; Stop 10/29/20 at 16:01; Status DC Warfarin Sodium (Coumadin - No Dose Today) 1 each 1X WARF ONCE MC ; Start 10/30/20 at 16:00; Stop 10/30/20 at 16:01; Status DC Warfarin Sodium (Coumadin) 4 mg 1X WARF ONCE PO Last administered on 10/31/20at 15:45; Start 10/31/20 at 16:00; Stop 10/31/20 at 16:01; Status DC Warfarin Sodium (Coumadin) 4 mg 1X WARF ONCE PO ; Start 11/01/20 at 16:00; Stop 11/01/20 at 16:00; Status DC Warfarin Sodium (Coumadin) 4 mg DAILY16 PO Last administered on 11/09/20at 17:28; Start 11/02/20 at 16:00; Stop 11/10/20 at 07:46; Status DC Docusate Sodium (Colace Solution) 100 mg DAILY PO Last administered on 1at 09:29; Start 11/05/20 at 12:00 Lansoprazole (Prevacid) 30 mg DAILY FT Last administered on 11/20/20at 09:30; Start 11/10/20 at 09:00 Warfarin Sodium (Coumadin) 3 mg DAILY16 PO Last administered on 11/13/20at 16:28; Start 11/10/20 at 16:00; Stop 11/14/20 at 10:35; Status DC Warfarin Sodium (Coumadin) 4 mg DAILY16 PO Last administered on 11/17/20at 16:03; Start 11/14/20 at 16:00; Stop 11/18/20 at 12:46; Status DC Warfarin Sodium (Coumadin) 4 mg DAILY16 PO Last administered on 11/19/20at 16:39; Start 11/19/20 at 16:00 Warfarin Sodium (Coumadin) 3 mg 1X WARF ONCE PO Last administered on 11/18/20at 16:00; Start 11/18/20 at 16:00; Stop 11/18/20 at 16:01; Status DC Clindamycin HCl (Cleocin) 300 mg Q6HRS PEG Last administered on 11/20/20at 06:01; Start 11/19/20 at 14:00 Fluconazole (Diflucan) 100 mg DAILY PEG Last administered on 11/20/20at 09:30; Start 11/19/20 at 14:00 Active Scripts Active Amiodarone Hcl 200 Mg Tablet 400 Mg PO DAILY 90 Days [Warfarin Per Pharmacy] 1 EACH Each 1 Each MC PRN DAILY PRN 30 Days Clopidogrel (Clopidogrel Bisulfate) 75 Mg Tablet 75 Mg PO DAILYWBKFT 90 Days Humalog (Insulin Lispro) 100 Unit/1 Ml Insuln.pen 0 Units SQ TIDWMEALS 30 Days Duoneb 0.5-3(2.5) Mg/3 Ml (Albuterol/Ipratropium) 3 Ml Ampul.neb 3 Ml NEB RTQID 30 Days Aspirin 325 Mg Tablet 325 Mg PO DAILYWBKFT 30 Days Metoprolol Tartrate 25 Mg Tablet 25 Mg PO BID 30 Days Montelukast Sodium Tablet (Montelukast Sodium) 10 Mg Tablet 10 Mg PO QHS Gabapentin 600 Mg Tablet 600 Mg PO BID 30 Days Reported Glimepiride 4 Mg Tablet 1 Tab PO DAILY Furosemide 40 Mg Tablet 1 Tab PO BID Symbicort 160-4.5 Mcg Inhaler (Budesonide/Formoterol Fumarate) 10.2 Gm Hfa.aer.ad 1 Puff INH DAILY Losartan-Hctz 100-12.5 Mg Tab (Losartan/Hydrochlorothiazide) 1 Each Tablet 1 Tab PO DAILY Nitrofurantoin [place]-Mcr 100 Mg (Nitrofurantoin Monohyd/M-Cryst) 100 Mg Capsule 1 Cap PO BID Betamethasone Valerate 60 Ml Lotion 1 TP QHS Atorvastatin Calcium 40 Mg Tablet 1 Tab PO DAILY Diltiazem 24Hr Cd (Diltiazem HCl) 240 Mg Cap.er.24h 1 Cap PO DAILY Nystop (Nystatin) 60 Gm Powder 1 Sudheer TP BID Pepcid (Famotidine) 20 Mg Tablet 20 Mg PO BID Vitals/I & O Vital Sign - Last 24 Hours 11/19/20 11/19/20 11/19/20 11/19/20 11:20 11:31 12:05 15:00 Temp 98.9 100.0 98.9 100.0 Pulse 86 79 Resp 18 20 B/P (MAP) 99/54 (69) 103/56 (72) Pulse Ox 100 96 96 O2 Delivery Tracheal Collar Tracheal Collar Tracheal Collar O2 Flow Rate 8.0 8.0 8.0 8.0 11/19/20 11/19/20 11/19/20 11/19/20 15:56 16:04 19:45 20:06 Temp 98.5 98.5 Pulse 81 Resp 22 B/P (MAP) 143/66 (91) Pulse Ox 96 98 O2 Delivery Tracheal Collar TRACH SHIELD Trach Collar O2 Flow Rate 8.0 8.0 8.0 8.0 11/19/20 11/19/20 11/19/20 11/19/20 20:06 21:04 21:31 23:05 Temp 99.0 99.0 Pulse 81 76 Resp 20 B/P (MAP) 143/66 117/66 (83) Pulse Ox 100 99 O2 Delivery V60 TRACH SHIELD W/BIPAP O2 Flow Rate 8.0 11/20/20 11/20/20 11/20/20 11/20/20 00:01 00:30 03:00 03:30 Temp 98.0 98.0 Pulse 85 Resp 22 B/P (MAP) 139/80 (99) Pulse Ox 99 100 99 O2 Delivery V60 V60 TRACH SHIELD W/BIPAP O2 Flow Rate 8.0 11/20/20 11/20/20 11/20/20 11/20/20 04:00 04:55 07:00 07:57 Temp 99.4 99.4 Pulse 87 Resp 22 B/P (MAP) 114/71 (85) Pulse Ox 100 99 100 O2 Delivery V60 BiPAP/CPAP V60 O2 Flow Rate 8.0 11/20/20 11/20/20 09:30 09:31 Pulse 87 87 B/P (MAP) 114/71 114/71 Intake and Output 11/19/20 11/19/20 11/20/20 15:00 23:00 07:00 Intake Total 585 ml 425 ml 320 ml Output Total 1100 ml 500 ml Balance 585 ml -675 ml -180 ml Justicifation of Admission Dx: Justifications for Admission: Justification of Admission Dx: Yes CHF: Cardiac Arrhythmias RAFAEL REINOSO MD Nov 20, 2020 10:24
[2020-11-20 10:51] VITALS: BP 126/77
--- NOTE | 2020-11-20 12:32 | NUR ---
CODE STATUS CHANGE REC'D CALL FROM JOANA HOWE, PT NIECE. SHE REQUESTS PT CODE STATUS BE CHANGED FROM DNR TO FULL CODE AT THIS TIME. BOTH THIS NURSE, AND MANNY DUVAL RN SPOKE WITH HER TO CONFIRM HER CHOICE AND CHANGE OF STATUS. DR LÓPEZ NOTIFIED WHILE ON FLOOR. STATUS CHANGED BY ORDER.
[2020-11-20 15:03] VITALS: BP 142/79
--- NOTE | 2020-11-20 15:22 | PDOC ---
[employer] PROGRESS NOTE Date of Service DOS: DATE: 11/20/20 TIME: 15:19 Chief Complaint Chief Complaint Acute anemia Acute metabolic, infectious encephalopathy Acute hypoxic respiratory failure Healthcare associated pneumonia Acute hypoglycemia Hypokalemia Elevated troponins Severe protein malnutrition Morbid obesity AAA, 4 cm, infrarenal History of diabetes mellitus type 2 History of dyslipidemia history of hypertension History of recent STEMI History of CAD History of peripheral artery disease History of JEANNE History of CVA History of paroxysmal atrial fibrillation Ischemic cardiomyopathy History of Present Illness History of Present Illness 11/20: Afebrile, on trach collar 8 L. Patient's niece is applying for guardianship prior to transfer to [facility]. She has decided to make patient full code. Anticipate transfer to LTAC in near future. RN discussed with patient's niece, she would like his CODE STATUS to be full code. I agree with Dr. Ennis, no prognosis for meaningful recovery. Discussed with niece (Casandra Andrews) by phone about poor prognosis and goals of care; she reiterates that she would like him to still be full code at this time. 11/19 Patient evaluated and examined at bedside. He was on the trach collar at 8. Informed patient's niece today that really only thing waiting on now is guardianship to be approved. Hopeful for that to happen in the coming week. Otherwise continue to monitor respiratory status. No major neurologic changes. Plan of care discussed with bedside RN. 11/18 On trach collar when being seen. Still with minimal neurologic status. Once social issues sorted out well discharge. 11/17 Patient evaluated and examined at bedside. He was tolerating being on the trach collar when seen. No change in neurologic status really. I have written a letter to send to the local radarman with my support for his need of a guardian. 11/16 Patient evaluated and examined at bedside. Patient's niece at bedside discussed case at length with her and ongoing plan. He does present as movement in his upper extremities today. He did open his eyes to his niece's voice earlier. Continue current plan of care. 11/15 Patient evaluated and examined at bedside. Remains minimally responsive. He is discharged ready. Just waiting for social issues to be sorted out. Possible discharge 11/14: No sort of clinical change overnight. Remains encephalopathic. Can discharge whenever guardianship and social issues mediated. 11/13: Afebrile. Still no meaningful response to any sort of interaction. Remains on trach. PEG tube. Complicated social situation. Afebrile. BP a little up today. Continues to remain encephalopathic off sedation requiring 8 L trach shield O2 with O2 saturations 91%. Tolerating PEG feeds with free water boluses. INR 2.8. Discussed with ninelda Guajardo she is reaching out to the rest of the family. 11/11: Afebrile. No meaningful following of commands, opens eyes. Requires 8L trach shield O2 to maintain O2 saturations 90%. No residuals on PEG tube feeds. Discussed with anabel Guajardo bedside she is going to reach out to the rest of the family now the family has been located. 11/10: Afebrile. Continues to be encephalopathic no meaningful eye contact movements not following commands. Requiring 8 L trach shield O2 to maintain saturations 91%. No residuals on tube feeds 45 cc/h. INR 2.8. Throughout heroic efforts by social work estranged family has been found and has a niece who will be visiting sometime potentially later today or tomorrow 11/09: Afebrile. Still encephalopathic not making any meaningful eye contact or movements not following commands. Waiting for guardianship. 8 L trach shield O2. Tolerating tube feeds with no residuals 45 cc/h. INR 2.6 11/08: Afebrile. Opens eyes but no meaningful contact not following commands. Requiring 8 L trach shield O2 mask. 11/07: Not responsive to stimuli, not making eye contact. Afebrile. Seen on 8 L trach collar canula. Hb 9.1 Renal labs stable INR 3.1. 11/06: Patient not meaningfully responding well. On trach shield and BiPAP as needed on trach. PEG feeds with no significant residuals. 11/05: Patient is still unresponsive. Pupils reactive to light and accommodation. No meaningful movements. Actively posturing at bed side. Has peg feeding at 45cc/hr. Trach shield at 8L and BIPAP PRN at 35%. There is an open wound at the site of the peg insertion. Wound care, Dr. Cristobal is consulted. 11/04: Patient is still unresponsive. Pupils reactive to light and accommodation. Actively posturing at bedside. No meaningful movements. Has peg feeding at 45cc/hr. Trach shield at 8L and BIPAP PRN at 35%. 11/03: Patient seen and examined. Discussed with RN and social media specialist. Chart reviewed. Patient is still unresponsive. Actively decorticate posturing at bedside. Eyes rolled upward. No meaningful movements. Has peg feeding at 45cc/hr. The bleeding at the peg insertion site has stopped. 11/02: Patient seen and examined. Chart reviewd. Discussed with RN and social media specialist. Patient is still unresponsive. No meaningful movements. Actively decorticate posturing at bedside. Has peg feeding running at 45cc/hr. Some bleeding at the peg insertion site. 11/01: Patient seen and examined. Discussed with social media specialist and RN. Patient is still unresponsive. No meaningful movements. Peg feeding is running at 45cc/hr. Patient is actively posturing at bed side. Trach shield at 8L and BIPAP PRN at 35%. 10/31: Patient seen and examined. Chart reviewed. Discussed with social media specialist and RN. Patient still unresponsive. Patient actively posturing at bed side. Has peg running at 45cc/hr. Vestibulo-ocular reflex intact. 10/30: Patient seen and examined. Discussed with social media specialist and RN. Chart reviewed. Patient actively posturing at bed side. Has peg running at 45cc/hr. Mr Andrews is a 70-year-old male with a recent prolonged hospitalization for STEMI and respiratory failure for which she was treated with arterial thrombolysis for a right leg popliteal artery aneurysm and also had left heart cath with placement of a stent in the LAD and RCA comes in today after he was found obtunded at his [facility] facility. Apparently according to the nursing facility patient was in his usual state of health and he was conversational but then became altered. His blood glucose was found to be in the 30s. Glucose tabs and glucagon was given in route and his GCS reported at 6. Upon arrival patient's mental status did not improve and he was eventually intubated for airway protection. Of note EMS was bagging the patient through the nasal access. In the ED, patient was placed on a vent and pulmonology was consulted. Patient was also taken to the CT scanner for sanders scanning. Patient was started to wake up on the vent and sedation was ordered. 09/23: Patient examined at bedside. Intubated. Not on any sedation but u nresponsive. Neurology consult in place. 09/24: Patient seen and examined at bedside. Remains intubated he is off sedation but still remains unresponsive. Planning for MRI brain in the morning. Further plan to be determined by MRI. 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 09/25: Afebrile, currently breathing on ventilator with FiO2 50%, PEEP 5. Had CODE BLUE in ICU this morning; received 2 rounds of CPR, epinephrine, and atropine with ROSC. MRI brain negative. Made DNR, and after discussion with Dr. Rubalcava he agrees. 09/26:: Afebrile. Still on vent, with FiO2 45%, PEEP 5. After discussion with Dr. Rubalcava yesterday, patient was made DNR. In the ED is likely a poor candidate for weaning trials may need trach in near future if no significant improvement. 09/27:: Afebrile. On vent with FiO2 40%, PEEP 5. Potassium 2.8 today, will replace. Warfarin has been resumed. Discussed with pharmacy, will resume aspirin and Plavix. May need tracheostomy by the end of the week if no improveme nt in mental status. 09/28:: Afebrile. On ventilator with FiO2 40%, PEEP 5. Warfarin has been resumed; INR 1.3 today. Some morning labs still pending; hemoglobin yesterday 7.3, will continue to monitor. Continue IV cefepime and supportive care. 09/29: Afebrile. Breathing on vent with FiO2 40%, PEEP 5. INR 1.2 today; pharmacy to help with warfarin dosing. White count within normal range, renal function stable. Spoke with pharmacy about cefepime 1 g every 8 hours dosing; this has been changed to cefepime 2 g every 8 hours. 09/30: Afebrile. Currently breathing on vent with FiO2 40%, PEEP 5. Continue antibiotics, cefepime 2 g every 8 hours. INR 1.4; continue warfarin dosing per pharmacy. Possible tracheostomy at some point. Critical care time 30 minutes reviewing charts, labs, examination, discussion with RN. 10/01: T-max 100.3 F. On ventilator with FiO2 40%, PEEP 5. Continue a ntibiotics, cefepime 2 g every 8 hours. INR 1.4, still subtherapeutic; continue warfarin dosing per pharmacy. Possible tracheostomy at some point. 10/02: No acute events overnight. Patient saturating 99% on vent settings of 10/450/40/5. Patient will likely need a trach and PEG at some point. We will hold warfarin and start 2 units PRBC transfusion. Patient's chart, labs, images were reviewed and discussed with RN 10/03: No acute events overnight. Patient sat 100% on minimal vent settings. No sedation at this point and patient is opening his eyes spontaneously. Not much response or spontaneous movements. Surgery has been consulted for tracheostomy. Patient will also likely need a PEG tube. 10/04: No acute events overnight. Patient saturating 90% on minimal vent settings. T-max 100.4 overnight. Plan for trach tomorrow with surgery. Patient's chart, labs, images were reviewed and discussed with RN 10/05: No acute events overnight. Patient saturating 99% on minimal vent settings. Plan for tracheostomy today. Consent is provided by authorization by 2 physicians due to patient having no close relatives or DPOA. Will resume h eparin and warfarin bridging tomorrow after tracheostomy 10/07: No acute events overnight. Patient seen and examined bedside. On trach vent. Saturating 99%. Pending GI evaluation for possible PEG placement after discussing with cardiology whether to continue with Plavix. Possibly place PEG if patient is only on aspirin and stopping argatroban. 10/08: No acute events overnight. Patient continues to be on trach mechanical vent. Saturating 100%. Pending decision from GI whether to proceed with PEG placement depending on the type of anticoagulation patient will be on. 10/09: No overnight events. On trach with vent support 40% FiO2 PEEP of 5. Currently argatroban and propofol for minimal sedation. When sedation is weaned he has no meaningful movements but has pulled at his tracheostomy site. Unable to hold plavix due to recently placed stents. 10/10: Afebrile today. On trach with vent support 40% FiO2 PEEP of 5. Continue argatroban and changed to Aggrastat in anticipation of surgical consultation for potential laparoscopic PEG placement. INR 1.6. Hb greater than 9 no significant neurologic recovery today. 10/11: Afebrile. On trach with vent support 40% FiO2 PEEP of 5. INR 1.8. Not making meaningful eye contact. Labs otherwise stable. 10/12: Afebrile. Trach with vent support 40% FiO2 PEEP five O2 saturations 92%. INR 1.8, mag 1.8, Hb 8.4. Not following commands. Tentative plans for surgical PEG next week. 10/13: Afebrile. Trach with vent support 40% FiO2 PEEP 5. Eyes open, not tracking or following commands. Holding Plavix. On argatroban. 10/14: Afebrile. Trach with vent support 40% FiO2 PEEP of 5. Will open eyes intermittently not necessarily to voice. Good urine output. Labs stable. 10/15: Afebrile overnight. Trach with vent AC 40% fio2 PEEP 5. Had a very large bowel movement. Still not tracking. Hb 9, INR 1.7, glucose 144. Tentative plan for PEG 10/18/2020 CC time 30 minutes 10/16/20: Patient seen and examined in the ICU. He was resting and still on vent via trach. Has NG running via Dobhoff, feeding at 40cc/hr. AC/10/450/40% plus 5 PEEP. Discussed with RN. Chart reviewed. 10/17/20: Patient was seen and examined in the ICU today. Still on vent via trach at AC/10/450/40 plus 5 PEEP. While examined, patient was at 100% O2 saturation. Has SCDs on for DVT prophylaxis. Stauffer catheter in place. On IV argatroban. R subclavian triple lumen in place. Dobhoff running at 40cc/hr. Discussed with RN. Chart reviewed. 10/18/20: Patient seen and examined in ICU. His eyes are open. On vent via trach with settings that were recently changed to spontaneous respirations with FiO2 of 40 and 5 PEEP. Trach is clean and dry. Currently, oxygen saturation is at 100%. Stauffer to bedside and rectal bag in place. Discussed with RN. Chart reviewed. 10/19/20: Patient was seen and examined in the ICU today. His eyes were open and he was resting. On BiPAP via trach AVAPS/10/450/40 plus 5 PEEP. Trach is clean and dry. Has SCDs for DVT prophylaxis. Patient has rectal bag, Stauffer to bedside, and NG tube in place. Discussed with RN. Chart reviewed. 10/20/20 No acute events overnight. Patient seen and examined bedside. Transferred from the ICU. Continues to be nonverbal and not following much commands. Opens eyes to voice. Currently on BiPAP via trach on AVAPS setting 10/450/40 PEEP of 5. Trach site is clear. No signs of infections. Patient's chart, labs, images were reviewed and discussed with RN 10/21/2020 No acute events overnight. Patient seen and examined bedside. Afebrile. Continues to be nonverbal but opens eyes to voice. Currently on BiPAP. Patient's chart, labs, images were reviewed and discussed with RN. 10/22/2020 No acute events overnight. Patient seen examined bedside. Continue with argatroban until warfarin goal INR of 4 and maintenance goal of 2-3. Please see estimating manager note. Pending appointing a legal guardian. Patient's chart, labs, images were reviewed and discussed with RN 10/23/2020 laparoscopic gastrostomy tube placement (specifically 24 F) Oct discharge planning in place once court appointed DPOA available Acute anemia Acute metabolic, infectious encephalopathy Acute respiratory failure Healthcare associated pneumonia Acute hypoglycemia Hypokalemia Elevated troponins Severe protein malnutrition Morbid obesity AAA, 4 cm, infrarenal History of diabetes mellitus type 2 History of dyslipidemia history of hypertension Patient seen examined bedside. argatroban until warfarin goal INR of 4 and maintenance goal of 2-3. Pending appointing a legal guardian. Patient's chart, labs, images were reviewed and discussed with KARY Cardenas Enteric tube with metallic tip in the left upper quadrant likely in the stomach. 10/24/2020 doing well on trach shield on a 24-hour basis./ blood gases shows no worsening hypercapnia while on trach shield. No apneic breathing reported. laparoscopic gastrostomy tube placement (specifically 24 F) Oct discharge planning in place once court appointed DPOA available Acute anemia Acute metabolic, infectious encephalopathy Acute respiratory failure Healthcare associated pneumonia Acute hypoglycemia Hypokalemia Elevated troponins Severe protein malnutrition Morbid obesity AAA, 4 cm, infrarenal History of diabetes mellitus type 2 History of dyslipidemia history of hypertension Patient seen examined bedside. argatroban until warfarin goal INR of 4 and maintenance goal of 2-3. Pending appointing a legal guardian. Patient's chart, labs, images were reviewed and discussed with KARY Cardenas Enteric tube with metallic tip in the left upper quadrant likely in the stomach. Home on plavix and warfarin D/C INITIAL PLAN TO [facility] PEND[facility]/ discharge planning in place once court appointed DPOA available D/W RN 10/25/2020 doing well on trach shield on a 24-hour basis./ blood gases shows no worsening hypercapnia while on trach shield. No apneic breathing reported. laparoscopic gastrostomy tube placement (specifically 24 F) Oct discharge planning in place once court appointed DPOA available Acute anemia Acute metabolic, infectious encephalopathy Acute respiratory failure Healthcare associated pneumonia Acute hypoglycemia Hypokalemia Elevated troponins Severe protein malnutrition Morbid obesity AAA, 4 cm, infrarenal History of diabetes mellitus type 2 History of dyslipidemia history of hypertension Patient seen examined bedside. argatroban until warfarin goal INR of 4 and maintenance goal of 2-3. Pending appointing a legal guardian. Patient's chart, labs, images were reviewed and discussed with KARY Cardenas Enteric tube with metallic tip in the left upper quadrant likely in the stomach. Home on plavix and warfarin D/C INITIAL PLAN TO [facility] PENDING/ discharge planning in place once court appointed DPOA available D/W RN 10/26/2020 HGB 9.4 doing well on trach shield on a 24-hour basis./ blood gases shows no worsening hypercapnia while on trach shield. No apneic breathing reported. laparoscopic gastrostomy tube placement (specifically 24 F) Oct discharge planning in place once court appointed DPOA available Acute anemia Acute metabolic, infectious encephalopathy Acute respiratory failure Healthcare associated pneumonia Acute hypoglycemia Hypokalemia Elevated troponins Severe protein malnutrition Morbid obesity AAA, 4 cm, infrarenal History of diabetes mellitus type 2 History of dyslipidemia history of hypertension Patient seen examined bedside. argatroban until warfarin goal INR of 4 and maintenance goal of 2-3. Pending appointing a legal guardian. Patient's chart, labs, images were reviewed and discussed with KARY Cardenas Enteric tube with metallic tip in the left upper quadrant likely in the stomach. Home on plavix and warfarin D/C INITIAL PLAN TO [facility] PEND[facility]/ discharge planning in place once court appointed DPOA available D/W RN 10/27/2020 HGB 9.4 doing well on trach shield on a 24-hour basis./ blood gases shows no worsening hypercapnia while on trach shield. No apneic breathing reported. laparoscopic gastrostomy tube placement (specifically 24 F) Oct discharge planning in place once court appointed DPOA available Acute anemia Acute metabolic, infectious encephalopathy Acute respiratory failure Healthcare associated pneumonia Acute hypoglycemia Hypokalemia Elevated troponins Severe protein malnutrition Morbid obesity AAA, 4 cm, infrarenal History of diabetes mellitus type 2 History of dyslipidemia history of hypertension Patient seen examined bedside. argatroban until warfarin goal INR of 4 and maintenance goal of 2-3. Pending appointing a legal guardian. Patient's chart, labs, images were reviewed and discussed with KARY Cardenas Enteric tube with metallic tip in the left upper quadrant likely in the stomach. Home on plavix and warfarin D/C INITIAL PLAN TO [facility]END[facility]/ discharge planning in place once court appointed DPOA available D/W RN 10/28/2020 HGB 9.4 doing well on trach shield on a 24-hour basis./ blood gases shows no worsening hypercapnia while on trach shield. No apneic breathing reported. laparoscopic gastrostomy tube placement (specifically 24 F) Oct discharge planning in place once court appointed DPOA available Acute anemia Acute metabolic, infectious encephalopathy Acute respiratory failure Healthcare associated pneumonia Acute hypoglycemia Hypokalemia Elevated troponins Severe protein malnutrition Morbid obesity AAA, 4 cm, infrarenal History of diabetes mellitus type 2 History of dyslipidemia history of hypertension Patient seen examined bedside. argatroban until warfarin goal INR of 4 and maintenance goal of 2-3. Pending appointing a legal guardian. Patient's chart, labs, images were reviewed and discussed with KARY Cardenas Enteric tube with metallic tip in the left upper quadrant likely in the stomach. Home on plavix and warfarin D/C INITIAL PLAN TO [facility] PENDING/ discharge planning in place once court appointed DPOA available D/W RN Vitals/I&O Vitals/I&O: Vital Signs Date Time Temp Pulse Resp B/P (MAP) Pulse Ox O2 Delivery O2 Flow Rate FiO2 11/20/20 15:03 99.4 80 20 142/79 (100) 97 Tracheal Collar 8.0 99.4 I & O 11/19/20 11/19/20 11/20/20 15:00 23:00 07:00 Intake Total 585 ml 425 ml 320 ml Output Total 1100 ml 500 ml Balance 585 ml -675 ml -180 ml Physical Exam Physical Exam: Neuro: actively posturing. Pulpils dialated but reactive to light and accomendation. Flaccidity in the lower extremity bilaterally. Equivocal Babinski. General: Other (actively posturing. No meaningful movements. ) Heart: Regular rate (SR), Other (distant heart sounds) Lungs: Other (Tracheostomy with trach shield. Deminished breath sounds.) Abdomen: Soft, Other (g tube in place) Extremities: No cyanosis, Other (2-3+ bilateral LE pitting edema) Skin: No rashes, No significant lesion Labs Labs: Laboratory Tests Test 11/19/20 16:25 11/20/20 00:05 11/20/20 06:20 11/20/20 06:33 Glucose (Fingerstick) 157 mg/dL (70-99) 133 mg/dL (70-99) 151 mg/dL (70-99) Prothrombin Time 36.8 SEC (11.7-14.0) Prothromb Time International Ratio 3.8 (0.8-1.1) Test 11/20/20 11:17 Glucose (Fingerstick) 174 mg/dL (70-99) Assessment and Plan Assessmemt and Plan Problems Medical Problems: (1) NSTEMI (non-ST elevated myocardial infarction) Status: Acute (2) Obtundation Status: Acute (3) Respiratory arrest Status: Acute Comment Review of Relevant I have reviewed the following items denise (where applicable) has been applied. Medications: Current Medications Medications (Trade) Dose Ordered Sig/Dru Route PRN Reason Start Time Stop Time Status Last Admin Dose Admin Warfarin Sodium (Coumadin) 4 mg DAILY16 PO 11/19/20 16:00 11/20/20 15:03 DC 11/19/20 16:39 Justifications for Admission Other Justification Hypoglycemia and altered mental status. NAIDA LÓPEZ MD Nov 20, 2020 15:22
--- NOTE | 2020-11-20 15:31 | NUR ---
SS following up with discharge planning. SS reviewed pt chart and discussed with pt RN. Pt is currently on trach shield at 35%. G-Tube in place. Pt on IV Lasix and PO Clindamycin through PEG. COVID19 negative. Pt in need of DPOA or Guardianship for placement at LTACH or LTC facility. Piece Meat Trimmer, Amarilis Matthews, assigned to case and is in need of proposed guardian prior to proceeding. Pt's niece, Casandra Andrews, , and her spouse Han Jovel are requesting to be proposed Guardians at this time. Casandra coming to hospital tomorrow to sign Petition with mode. Pt's niece spoke with RN and is requesting Full Code at this time. Pt accepted at [facility], ; fax [phone], pending insurance authorization. SS will continue to follow for discharge planning.
--- NOTE | 2020-11-20 16:20 | NUR ---
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 Target range for this patient is: 2 -3 P: Warfarin dose: Hold coumadin x 2 days Bridge Therapy: None Therapeutic Next INR due 11/22 Pharmacy anticoagulation service will continue to follow. Roseline Varela [facility], 11/20/20 [id number]
[2020-11-20 19:30] VITALS: BP 141/74
[2020-11-20] MEDS: ATORVASTATIN CALCIUM 40 MG TABLET. PO SCH (20:56)
[2020-11-20 23:10] VITALS: BP 100/55
[2020-11-21] MEDS: CLINDAMYCIN HCL 150 MG CAPSULE. PEG SCH ×5 (00:46→23:45)
[2020-11-21 02:45] VITALS: BP 148/82
[2020-11-21] MEDS: INSULIN LISPRO 300 UNITS/3 ML VIAL. SQ SCH ×5 (05:27→23:45)
[2020-11-21 07:00] VITALS: BP 163/81
[2020-11-21] MEDS: FLUCONAZOLE 100 MG TABLET. PEG SCH (09:19)
[2020-11-21] MEDS: METOPROLOL TART IMMED RELEASE 25 MG TABLET. PO SCH ×2 (09:19→20:11)
[2020-11-21] MEDS: POTASSIUM BICARB 20 MEQ EFFERVESCENT TABLET. PEG SCH (09:19)
[2020-11-21] MEDS: ASPIRIN CHEWABLE 81 MG TABLET. PO SCH (09:19)
[2020-11-21] MEDS: LANSOPRAZOLE 30 MG TAB.RAP.DR FT SCH (09:19)
[2020-11-21] MEDS: AMIODARONE HCL 200 MG TABLET. PO SCH (09:20)
[2020-11-21] MEDS: CLOPIDOGREL BISULFATE 75 MG TABLET PO SCH (09:20)
[2020-11-21] MEDS: DOCUSATE 100 MG/10 ML SOLUTION. PO SCH (09:20)
[2020-11-21] MEDS: FUROSEMIDE 40 MG/4 ML VIAL. IVP SCH (09:20)
--- NOTE | 2020-11-21 10:23 | PDOC ---
[employer] PROGRESS NOTE Date of Service DOS: DATE: 11/21/20 TIME: 10:17 Chief Complaint Chief Complaint Acute anemia Acute metabolic, infectious encephalopathy Acute hypoxic respiratory failure Healthcare associated pneumonia Acute hypoglycemia Hypokalemia Elevated troponins Severe protein malnutrition Morbid obesity AAA, 4 cm, infrarenal History of diabetes mellitus type 2 History of dyslipidemia history of hypertension History of recent STEMI History of CAD History of peripheral artery disease History of JEANNE History of CVA History of paroxysmal atrial fibrillation Ischemic cardiomyopathy History of Present Illness History of Present Illness 11/21: Afebrile. Tolerated trach shield with BiPAP overnight. Guardianship papers to be signed today by patient's niece. [facility] in the near future pending insurance authorization. 11/20: Afebrile, on trach collar 8 L. Patient's niece is applying for guardianship prior to transfer to [facility]. She has decided to make patient full code. Anticipate transfer to LTAC in near future. RN discussed with patient's niece, she would like his CODE STATUS to be full code. I agree with Dr. Ennis, no prognosis for meaningful recovery. Discussed with niece (Casandra Andrews) by phone about poor prognosis and goals of care; she reiterates that she would like him to still be full code at this time. 11/19 Patient evaluated and examined at bedside. He was on the trach collar at 8. Informed patient's niece today that really only thing waiting on now is guardianship to be approved. Hopeful for that to happen in the coming week. Otherwise continue to monitor respiratory status. No major neurologic changes. Plan of care discussed with bedside RN. 11/18 On trach collar when being seen. Still with minimal neurologic status. Once social issues sorted out well discharge. 11/17 Patient evaluated and examined at bedside. He was tolerating being on the trach collar when seen. No change in neurologic status really. I have written a letter to send to the local piano case and bench assembler with my support for his need of a guardian. 11/16 Patient evaluated and examined at bedside. Patient's niece at bedside discussed case at length with her and ongoing plan. He does present as movement in his upper extremities today. He did open his eyes to his niece's voice earlier. Continue current plan of care. 11/15 Patient evaluated and examined at bedside. Remains minimally responsive. He is discharged ready. Just waiting for social issues to be sorted out. Possible discharge 11/14: No sort of clinical change overnight. Remains encephalopathic. Can discharge whenever guardianship and social issues mediated. 11/13: Afebrile. Still no meaningful response to any sort of interaction. Remains on trach. PEG tube. Complicated social situation. Afebrile. BP a little up today. Continues to remain encephalopathic off sedation requiring 8 L trach shield O2 with O2 saturations 91%. Tolerating PEG feeds with free water boluses. INR 2.8. Discussed with anabel Guajardo she is reaching out to the rest of the family. 11/11: Afebrile. No meaningful following of commands, opens eyes. Requires 8L trach shield O2 to maintain O2 saturations 90%. No residuals on PEG tube feeds. Discussed with anabel Guajardo bedside she is going to reach out to the rest of the family now the family has been located. 11/10: Afebrile. Continues to be encephalopathic no meaningful eye contact movements not following commands. Requiring 8 L trach shield O2 to maintain saturations 91%. No residuals on tube feeds 45 cc/h. INR 2.8. Throughout heroic efforts by social work estranged family has been found and has a niece who will be visiting sometime potentially later today or tomorrow 11/09: Afebrile. Still encephalopathic not making any meaningful eye contact or movements not following commands. Waiting for guardianship. 8 L trach shield O2. Tolerating tube feeds with no residuals 45 cc/h. INR 2.6 11/08: Afebrile. Opens eyes but no meaningful contact not following commands. Requiring 8 L trach shield O2 mask. 11/07: Not responsive to stimuli, not making eye contact. Afebrile. Seen on 8 L trach collar canula. Hb 9.1 Renal labs stable INR 3.1. 11/06: Patient not meaningfully responding well. On trach shield and BiPAP as needed on trach. PEG feeds with no significant residuals. 11/05: Patient is still unresponsive. Pupils reactive to light and accommodation. No meaningful movements. Actively posturing at bed side. Has peg feeding at 45cc/hr. Trach shield at 8L and BIPAP PRN at 35%. There is an open wound at the site of the peg insertion. Wound care, Dr. Cristobal is consulted. 11/04: Patient is still unresponsive. Pupils reactive to light and accommodation. Actively posturing at bedside. No meaningful movements. Has peg feeding at 45cc/hr. Trach shield at 8L and BIPAP PRN at 35%. 11/03: Patient seen and examined. Discussed with RN and social problems specialist. Chart reviewed. Patient is still unresponsive. Actively decorticate posturing at bedside. Eyes rolled upward. No meaningful movements. Has peg feeding at 45cc/hr. The bleeding at the peg insertion site has stopped. 11/02: Patient seen and examined. Chart reviewd. Discussed with RN and social problems specialist. Patient is still unresponsive. No meaningful movements. Actively decorticate posturing at bedside. Has peg feeding running at 45cc/hr. Some bleeding at the peg insertion site. 11/01: Patient seen and examined. Discussed with social problems specialist and RN. Patient is still unresponsive. No meaningful movements. Peg feeding is running at 45cc/hr. Patient is actively posturing at bed side. Trach shield at 8L and BIPAP PRN at 35%. 10/31: Patient seen and examined. Chart reviewed. Discussed with social problems specialist and RN. Patient still unresponsive. Patient actively posturing at bed side. Has peg running at 45cc/hr. Vestibulo-ocular reflex intact. 10/30: Patient seen and examined. Discussed with social problems specialist and RN. Chart reviewed. Patient actively posturing at bed side. Has peg running at 45cc/hr. Mr Andrews is a 70-year-old male with a recent prolonged hospitalization for STEMI and respiratory failure for which she was treated with arterial thrombolysis for a right leg popliteal artery aneurysm and also had left heart cath with placement of a stent in the LAD and RCA comes in today after he was found obtunded at his halfway facility. Apparently according to the nursing facility patient was in his usual state of health and he was conversational but then became altered. His blood glucose was found to be in the 30s. Glucose tabs and glucagon was given in route and his GCS reported at 6. Upon arrival patient's mental status did not improve and he was eventually intubated for airway protection. Of note EMS was bagging the patient through the nasal access. In the ED, patient was placed on a vent and pulmonology was consulted. Patient was also taken to the CT scanner for sanders scanning. Patient was started to wake up on the vent and sedation was ordered. 09/23: Patient examined at bedside. Intubated. Not on any sedation but unresponsive. Neurology consult in place. 09/24: Patient seen and examined at bedside. Remains intubated he is off sedation but still remains unresponsive. Planning for MRI brain in the morning. Further plan to be determined by MRI. 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 09/25: Afebrile, currently breathing on ventilator with FiO2 50%, PEEP 5. Had CODE BLUE in ICU this morning; received 2 rounds of CPR, epinephrine, and atropine with ROSC. MRI brain negative. Made DNR, and after discussion with Dr. Rubalcava he agrees. 09/26:: Afebrile. Still on vent, with FiO2 45%, PEEP 5. After discussion with Dr. Rubalcava yesterday, patient was made DNR. In the ED is likely a poor candidate for weaning trials may need trach in near future if no significant improvement. 09/27:: Afebrile. On vent with FiO2 40%, PEEP 5. Potassium 2.8 today, will replace. Warfarin has been resumed. Discussed with pharmacy, will resume aspirin and Plavix. May need tracheostomy by the end of the week if no improvement in mental status. 09/28:: Afebrile. On ventilator with FiO2 40%, PEEP 5. Warfarin has been resumed; INR 1.3 today. Some morning labs still pending; hemoglobin yesterday 7.3, will continue to monitor. Continue IV cefepime and supportive care. 09/29: Afebrile. Breathing on vent with FiO2 40%, PEEP 5. INR 1.2 today; pharmacy to help with warfarin dosing. White count within normal range, renal function stable. Spoke with pharmacy about cefepime 1 g every 8 hours dosing; this has been changed to cefepime 2 g every 8 hours. 09/30: Afebrile. Currently breathing on vent with FiO2 40%, PEEP 5. Continue antibiotics, cefepime 2 g every 8 hours. INR 1.4; continue warfarin dosing per pharmacy. Possible tracheostomy at some point. Critical care time 30 minutes reviewing charts, labs, examination, discussion with RN. 10/01: T-max 100.3 F. On ventilator with FiO2 40%, PEEP 5. Continue antibiotics, cefepime 2 g every 8 hours. INR 1.4, still subtherapeutic; continue warfarin dosing per pharmacy. Possible tracheostomy at some point. 10/02: No acute events overnight. Patient saturating 99% on vent settings of 10/450/40/5. Patient will likely need a trach and PEG at some point. We will hold warfarin and start 2 units PRBC transfusion. Patient's chart, labs, images were reviewed and discussed with RN 10/03: No acute events overnight. Patient sat 100% on minimal vent settings. No sedation at this point and patient is opening his eyes spontaneously. Not much response or spontaneous movements. Surgery has been consulted for tracheostomy. Patient will also likely need a PEG tube. 10/04: No acute events overnight. Patient saturating 90% on minimal vent settings. T-max 100.4 overnight. Plan for trach tomorrow with surgery. Patient's chart, labs, images were reviewed and discussed with RN 10/05: No acute events overnight. Patient saturating 99% on minimal vent settings. Plan for tracheostomy today. Consent is provided by authorization by 2 physicians due to patient having no close relatives or DPOA. Will resume heparin and warfarin bridging tomorrow after tracheostomy 10/07: No acute events overnight. Patient seen and examined bedside. On trach vent. Saturating 99%. Pending GI evaluation for possible PEG placement after discussing with cardiology whether to continue with Plavix. Possibly place PEG if patient is only on aspirin and stopping argatroban. 10/08: No acute events overnight. Patient continues to be on trach mechanical vent. Saturating 100%. Pending decision from GI whether to proceed with PEG placement depending on the type of anticoagulation patient will be on. 10/09: No overnight events. On trach with vent support 40% FiO2 PEEP of 5. Currently argatroban and propofol for minimal sedation. When sedation is weaned he has no meaningful movements but has pulled at his tracheostomy site. Unable to hold plavix due to recently placed stents. 10/10: Afebrile today. On trach with vent support 40% FiO2 PEEP of 5. Continue argatroban and changed to Aggrastat in anticipation of surgical consultation for potential laparoscopic PEG placement. INR 1.6. Hb greater than 9 no significant neurologic recovery today. 10/11: Afebrile. On trach with vent support 40% FiO2 PEEP of 5. INR 1.8. Not making meaningful eye contact. Labs otherwise stable. 10/12: Afebrile. Trach with vent support 40% FiO2 PEEP five O2 saturations 92%. INR 1.8, mag 1.8, Hb 8.4. Not following commands. Tentative plans for surgical PEG next week. 10/13: Afebrile. Trach with vent support 40% FiO2 PEEP 5. Eyes open, not tracking or following commands. Holding Plavix. On argatroban. 10/14: Afebrile. Trach with vent support 40% FiO2 PEEP of 5. Will open eyes intermittently not necessarily to voice. Good urine output. Labs stable. 10/15: Afebrile overnight. Trach with vent AC 40% fio2 PEEP 5. Had a very large bowel movement. Still not tracking. Hb 9, INR 1.7, glucose 144. Tentative plan for PEG 10/18/2020 CC time 30 minutes 10/16/20: Patient seen and examined in the ICU. He was resting and still on vent via trach. Has NG running via Dobhoff, feeding at 40cc/hr. AC/10/450/40% plus 5 PEEP. Discussed with RN. Chart reviewed. 10/17/20: Patient was seen and examined in the ICU today. Still on vent via trach at AC/10/450/40 plus 5 PEEP. While examined, patient was at 100% O2 saturation. Has SCDs on for DVT prophylaxis. Stauffer catheter in place. On IV argatroban. R subclavian triple lumen in place. Dobhoff running at 40cc/hr. Discussed with RN. Chart reviewed. 10/18/20: Patient seen and examined in ICU. His eyes are open. On vent via trach with settings that were recently changed to spontaneous respirations with FiO2 of 40 and 5 PEEP. Trach is clean and dry. Currently, oxygen saturation is at 100%. Stauffer to bedside and rectal bag in place. Discussed with RN. Chart reviewed. 10/19/20: Patient was seen and examined in the ICU today. His eyes were open and he was resting. On BiPAP via trach AVAPS/10/450/40 plus 5 PEEP. Trach is clean and dry. Has SCDs for DVT prophylaxis. Patient has rectal bag, Stauffer to bedside, and NG tube in place. Discussed with RN. Chart reviewed. 10/20/20 No acute events overnight. Patient seen and examined bedside. Transferred from the ICU. Continues to be nonverbal and not following much commands. Opens eyes to voice. Currently on BiPAP via trach on AVAPS setting /40 PEEP of 5. Trach site is clear. No signs of infections. Patient's chart, labs, images were reviewed and discussed with RN 10/21/2020 No acute events overnight. Patient seen and examined bedside. Afebrile. Continues to be nonverbal but opens eyes to voice. Currently on BiPAP. Patient's chart, labs, images were reviewed and discussed with RN. 10/22/2020 No acute events overnight. Patient seen examined bedside. Continue with argatroban until warfarin goal INR of 4 and maintenance goal of 2-3. Please see residential mental health worker note. Pending appointing a legal guardian. Patient's chart, labs, images were reviewed and discussed with RN 10/23/2020 laparoscopic gastrostomy tube placement (specifically 24 F) Oct discharge planning in place once court appointed DPOA available Acute anemia Acute metabolic, infectious encephalopathy Acute respiratory failure Healthcare associated pneumonia Acute hypoglycemia Hypokalemia Elevated troponins Severe protein malnutrition Morbid obesity AAA, 4 cm, infrarenal History of diabetes mellitus type 2 History of dyslipidemia history of hypertension Patient seen examined bedside. argatroban until warfarin goal INR of 4 and maintenance goal of 2-3. Pending appointing a legal guardian. Patient's chart, labs, images were reviewed and discussed with KARY Cardenas Enteric tube with metallic tip in the left upper quadrant likely in the stomach. 10/24/2020 doing well on trach shield on a 24-hour basis./ blood gases shows no worsening hypercapnia while on trach shield. No apneic breathing reported. laparoscopic gastrostomy tube placement (specifically 24 F) Oct discharge planning in place once court appointed DPOA available Acute anemia Acute metabolic, infectious encephalopathy Acute respiratory failure Healthcare associated pneumonia Acute hypoglycemia Hypokalemia Elevated troponins Severe protein malnutrition Morbid obesity AAA, 4 cm, infrarenal History of diabetes mellitus type 2 History of dyslipidemia history of hypertension Patient seen examined bedside. argatroban until warfarin goal INR of 4 and maintenance goal of 2-3. Pending appointing a legal guardian. Patient's chart, labs, images were reviewed and discussed with KARY Cardenas Enteric tube with metallic tip in the left upper quadrant likely in the stomach. Home on plavix and warfarin D/C INITIAL PLAN TO [facility]/ discharge planning in place once court appointed DPOA available D/W RN 10/25/2020 doing well on trach shield on a 24-hour basis./ blood gases shows no worsening hypercapnia while on trach shield. No apneic breathing reported. laparoscopic gastrostomy tube placement (specifically 24 F) Oct discharge planning in place once court appointed DPOA available Acute anemia Acute metabolic, infectious encephalopathy Acute respiratory failure Healthcare associated pneumonia Acute hypoglycemia Hypokalemia Elevated troponins Severe protein malnutrition Morbid obesity AAA, 4 cm, infrarenal History of diabetes mellitus type 2 History of dyslipidemia history of hypertension Patient seen examined bedside. argatroban until warfarin goal INR of 4 and maintenance goal of 2-3. Pending appointing a legal guardian. Patient's chart, labs, images were reviewed and discussed with KARY Cardenas Enteric tube with metallic tip in the left upper quadrant likely in the stomach. Home on plavix and warfarin D/C INITIAL PLAN TO [facility]/ discharge planning in place once court appointed DPOA available D/W RN 10/26/2020 HGB 9.4 doing well on trach shield on a 24-hour basis./ blood gases shows no worsening hypercapnia while on trach shield. No apneic breathing reported. laparoscopic gastrostomy tube placement (specifically 24 F) Oct discharge planning in place once court appointed DPOA available Acute anemia Acute metabolic, infectious encephalopathy Acute respiratory failure Healthcare associated pneumonia Acute hypoglycemia Hypokalemia Elevated troponins Severe protein malnutrition Morbid obesity AAA, 4 cm, infrarenal History of diabetes mellitus type 2 History of dyslipidemia history of hypertension Patient seen examined bedside. argatroban until warfarin goal INR of 4 and maintenance goal of 2-3. Pending appointing a legal guardian. Patient's chart, labs, images were reviewed and discussed with KARY Cardenas Enteric tube with metallic tip in the left upper quadrant likely in the stomach. Home on plavix and warfarin D/C INITIAL PLAN TO [facility]/ discharge planning in place once court appointed DPOA available D/W RN 10/27/2020 HGB 9.4 doing well on trach shield on a 24-hour basis./ blood gases shows no worsening hypercapnia while on trach shield. No apneic breathing reported. laparoscopic gastrostomy tube placement (specifically 24 F) Oct discharge planning in place once court appointed DPOA available Acute anemia Acute metabolic, infectious encephalopathy Acute respiratory failure Healthcare associated pneumonia Acute hypoglycemia Hypokalemia Elevated troponins Severe protein malnutrition Morbid obesity AAA, 4 cm, infrarenal History of diabetes mellitus type 2 History of dyslipidemia history of hypertension Patient seen examined bedside. argatroban until warfarin goal INR of 4 and maintenance goal of 2-3. Pending appointing a legal guardian. Patient's chart, labs, images were reviewed and discussed with KARY Cardenas Enteric tube with metallic tip in the left upper quadrant likely in the stomach. Home on plavix and warfarin D/C INITIAL PLAN TO [facility]/ discharge planning in place once court appointed DPOA available D/W RN 10/28/2020 HGB 9.4 doing well on trach shield on a 24-hour basis./ blood gases shows no worsening hypercapnia while on trach shield. No apneic breathing reported. laparoscopic gastrostomy tube placement (specifically 24 F) Oct discharge planning in place once court appointed DPOA available Acute anemia Acute metabolic, infectious encephalopathy Acute respiratory failure Healthcare associated pneumonia Acute hypoglycemia Hypokalemia Elevated troponins Severe protein malnutrition Morbid obesity AAA, 4 cm, infrarenal History of diabetes mellitus type 2 History of dyslipidemia history of hypertension Patient seen examined bedside. argatroban until warfarin goal INR of 4 and maintenance goal of 2-3. Pending appointing a legal guardian. Patient's chart, labs, images were reviewed and discussed with KARY Cardenas Enteric tube with metallic tip in the left upper quadrant likely in the stomach. Home on plavix and warfarin D/C INITIAL PLAN TO [facility]/ discharge planning in place once court appointed DPOA available D/W RN Vitals/I&O Vitals/I&O: Vital Signs Date Time Temp Pulse Resp B/P (MAP) Pulse Ox O2 Delivery O2 Flow Rate FiO2 11/21/20 09:20 86 163/81 11/21/20 08:18 100 V60 11/21/20 07:51 8.0 11/21/20 07:00 99.1 21 99.1 I & O0 11/20/20 11/20/20 11/21/20 15:00 23:00 07:00 Intake Total 570 ml 455 ml 960 ml Output Total 650 ml 650 ml Balance -80 ml 455 ml 310 ml Physical Exam Physical Exam: Neuro: actively posturing. Pulpils dialated but reactive to light and accomendation. Flaccidity in the lower extremity bilaterally. Equivocal Babinski. General: Other (actively posturing. No meaningful movements. ) Heart: Regular rate (SR), Other (distant heart sounds) Lungs: Other (Tracheostomy with trach shield. Deminished breath sounds.) Abdomen: Soft, Other (g tube in place) Extremities: No cyanosis, Other (2-3+ bilateral LE pitting edema) Skin: No rashes, No significant lesion Labs Labs: Laboratory Tests Test 11/20/20 11:17 11/20/20 17:48 11/21/20 00:43 11/21/20 06:07 Glucose (Fingerstick) 174 mg/dL (70-99) 176 mg/dL (70-99) 157 mg/dL (70-99) 148 mg/dL (70-99) Assessment and Plan Assessmemt and Plan Problems Medical Problems: (1) NSTEMI (non-ST elevated myocardial infarction) Status: Acute (2) Obtundation Status: Acute (3) Respiratory arrest Status: Acute Comment Review of Relevant I have reviewed the following items denise (where applicable) has been applied. Medications: Current Medications Medications (Trade) Dose Ordered Sig/Dru Route PRN Reason Start Time Stop Time Status Last Admin Dose Admin Warfarin Sodium (Coumadin - No Dose Today) 1 each 1X WARF ONCE [facility] 11/20/20 17:00 11/20/20 17:01 DC 11/20/20 17:00 Justifications for Admission Other Justification Hypoglycemia and altered mental status. NAIDA LÓPEZ MD Nov 21, 2020 10:23
[2020-11-21 10:59] VITALS: BP 90/52
--- NOTE | 2020-11-21 11:06 | NUR ---
SS following up with discharge planning. SS reviewed pt chart and discussed with pt RN. Pt is currently on trach shield at 35%. G-Tube in place. Pt on IV Lasix and PO Clindamycin through PEG. COVID19 negative. Pt in need of DPOA or Guardianship for placement at LTACH or LTC facility. Administration Vice President, Amarilis Matthews, assigned to case and is in need of proposed guardian prior to proceeding. Pt's niece, Casandra Andrews, , and her spouse Han Jovel are requesting to be proposed Guardians at this time. Casandra and SS met today and signed Petition for Guardianship in front of a notary. Signed paperwork faxed back attorney general. SS currently awaiting further instructions at this time. Pt accepted at [facility], ; fax [phone], pending insurance authorization. Clinical updates phoned and faxed to [facility]. SS will continue to follow for discharge planning.
[2020-11-21 14:34] VITALS: BP 107/58
--- NOTE | 2020-11-21 16:59 | NUR ---
Pharmacy Warfarin Dosing Note S: Pharmacy consulted to assist with anticoagulation therapy O: DEMETRICE HOWE is a 70 year old M with treatment for HIT. No INR drawn today. LABS: Last INR: 3.8 (11/20) Last HGB: 8.8 Last HCT: 25.9 Last PLT: 310 Last dose of 4 mg given on 11/19/20 at 1603 Vitamin K given: N Ongoing Drug Interactions: amiodarone, aspirin, plavix A: No INR drawn today. Yesterday's INR of 3.8 (11/20) was above goal range. Dose held 11/20. Repeat held dose today, draw INR tomorrow. P: HOLD warfarin dose today Bridge Therapy: none Next INR due 11/22/20 Pharmacy anticoagulation service will continue to follow. HERBERT PAYNE [facility], 11/21/20 [id number]
[2020-11-21 19:30] VITALS: BP 119/71
[2020-11-21] MEDS: ATORVASTATIN CALCIUM 40 MG TABLET. PO SCH (20:10)
[2020-11-21 22:45] VITALS: BP 106/63
[2020-11-22 03:30] VITALS: BP 129/64
[2020-11-22] MEDS: INSULIN LISPRO 300 UNITS/3 ML VIAL. SQ SCH ×4 (06:00→23:20)
[2020-11-22] MEDS: CLINDAMYCIN HCL 150 MG CAPSULE. PEG SCH ×4 (06:26→23:22)
[2020-11-22 07:00] VITALS: BP 120/82
[2020-11-22 07:28] LABS: PROTHROMBIN TIME PATIENT 38.1 SEC (11.7-14.0)
--- NOTE | 2020-11-22 08:05 | NUR ---
Pharmacy Warfarin Dosing Note S:Pharmacy consulted to assist with anticoagulation therapy started with target INR: 2 -3 O:DEMETRICE HOWE is a 70 year old M with Atrial Fibrillation, DVT/PE, HIT LABS: Last INR: 4 Last HGB: 7.3 Last HCT: 22.2 Last PLT: 266 Last dose of 4 mg given on 11/19/20 at 1603 Previous Regimen: Last admission 08/16/20 was on 5 mg warfarin daily on discharge. Vitamin K given: N Drug Interaction Changes: Same Interacting Drug Ongoing Drug Interactions: amiodarone, aspirin, plavix A:INR of 4 is above desired range. Target range for this patient is: 2 -3 P: Warfarin dose: Hold Today Bridge Therapy: None Next INR due 11/24/20 Pharmacy anticoagulation service will continue to follow. NICK JONES RPH, 11/22/20 [id number]
[2020-11-22] MEDS: ASPIRIN CHEWABLE 81 MG TABLET. PO SCH (09:20)
[2020-11-22] MEDS: CLOPIDOGREL BISULFATE 75 MG TABLET PO SCH (09:21)
[2020-11-22] MEDS: AMIODARONE HCL 200 MG TABLET. PO SCH (09:21)
[2020-11-22] MEDS: DOCUSATE 100 MG/10 ML SOLUTION. PO SCH (09:22)
[2020-11-22] MEDS: POTASSIUM BICARB 20 MEQ EFFERVESCENT TABLET. PEG SCH (09:22)
[2020-11-22] MEDS: METOPROLOL TART IMMED RELEASE 25 MG TABLET. PO SCH ×2 (09:22→19:44)
[2020-11-22] MEDS: FLUCONAZOLE 100 MG TABLET. PEG SCH (09:22)
[2020-11-22] MEDS: FUROSEMIDE 40 MG/4 ML VIAL. IVP SCH (09:23)
[2020-11-22] MEDS: LANSOPRAZOLE 30 MG TAB.RAP.DR FT SCH (09:24)
[2020-11-22 10:38] VITALS: BP 119/64
--- NOTE | 2020-11-22 14:10 | NUR ---
Wound/Ostomy Care Wound Type/Assessment: Wound care follow up for PEG tube wound left dorsal great toe. The great toe is now resolved, it remains purple but there is new skin covering over entire area. Pt has a slit on medial side of peg tube insertion site that appears to be from movement of the tubing rubbing, wound is minimal with slough and minimal drainage. Treatment Recommendations/Plan: Cleanse wound around the PEG with cholorprep and redress with skin prep and foam dressing. Change every other day. Education provided: Pt unable to retain teaching due to mental status. Offloading surface/device: Pt turned to right side with wedge, heels floated on pillows and patient is currently on a P-500 bed. Recommended Referrals/Tests: na Discharge Recommendations for dressings: Dressing change instructions left in room. No other wounds noted. Bed lowered and HOB elevated and tube feeding resumed. Wound care will follow up on 11/29/20.
[2020-11-22 14:19] VITALS: BP 135/70
--- NOTE | 2020-11-22 14:48 | PDOC ---
[employer] PROGRESS NOTE Date of Service DOS: DATE: 11/22/20 TIME: 14:46 Chief Complaint Chief Complaint Acute anemia Acute metabolic, infectious encephalopathy Acute hypoxic respiratory failure Healthcare associated pneumonia Acute hypoglycemia Hypokalemia Elevated troponins Severe protein malnutrition Morbid obesity AAA, 4 cm, infrarenal History of diabetes mellitus type 2 History of dyslipidemia history of hypertension History of recent STEMI History of CAD History of peripheral artery disease History of JEANNE History of CVA History of paroxysmal atrial fibrillation Ischemic cardiomyopathy History of Present Illness History of Present Illness 11/22: No acute change overnight. On trach collar 8 L. Guardianship papers were signed yesterday by niece. Patient has been accepted to [facility], pending insurance authorization. 11/21: Afebrile. Tolerated trach shield with BiPAP overnight. Guardianship papers to be signed today by patient's niece. Transfer to LTAC at [facility] in the near future pending insurance authorization. 11/20: Afebrile, on trach collar 8 L. Patient's niece is applying for guardianship prior to transfer to [facility]. She has decided to make patient full code. Anticipate transfer to LTAC in near future. RN discussed with patient's niece, she would like his CODE STATUS to be full code. I agree with Dr. Ennis, no prognosis for meaningful recovery. Discussed with niece (Casandradirk Andrews) by phone about poor prognosis and goals of care; she reiterates that she would like him to still be full code at this time. 11/19 Patient evaluated and examined at bedside. He was on the trach collar at 8. Informed patient's niece today that really only thing waiting on now is guardianship to be approved. Hopeful for that to happen in the coming week. Otherwise continue to monitor respiratory status. No major neurologic changes. Plan of care discussed with bedside RN. 11/18 On trach collar when being seen. Still with minimal neurologic status. Once social issues sorted out well discharge. 11/17 Patient evaluated and examined at bedside. He was tolerating being on the trach collar when seen. No change in neurologic status really. I have written a letter to send to the local dressage judge with my support for his need of a guardian. 11/16 Patient evaluated and examined at bedside. Patient's niece at bedside discussed case at length with her and ongoing plan. He does present as movement in his upper extremities today. He did open his eyes to his niece's voice earlier. Continue current plan of care. 11/15 Patient evaluated and examined at bedside. Remains minimally responsive. He is discharged ready. Just waiting for social issues to be sorted out. Possible discharge 11/14: No sort of clinical change overnight. Remains encephalopathic. Can discharge whenever guardianship and social issues mediated. 11/13: Afebrile. Still no meaningful response to any sort of interaction. Remains on trach. PEG tube. Complicated social situation. Afebrile. BP a little up today. Continues to remain encephalopathic off sedation requiring 8 L trach shield O2 with O2 saturations 91%. Tolerating PEG feeds with free water boluses. INR 2.8. Discussed with anabel Guajardo she is reaching out to the rest of the family. 11/11: Afebrile. No meaningful following of commands, opens eyes. Requires 8L trach shield O2 to maintain O2 saturations 90%. No residuals on PEG tube feeds. Discussed with anabel Guajardo bedside she is going to reach out to the rest of the family now the family has been located. 11/10: Afebrile. Continues to be encephalopathic no meaningful eye contact movements not following commands. Requiring 8 L trach shield O2 to maintain saturations 91%. No residuals on tube feeds 45 cc/h. INR 2.8. Throughout heroic efforts by social work estranged family has been found and has a niece who will be visiting sometime potentially later today or tomorrow 11/09: Afebrile. Still encephalopathic not making any meaningful eye contact or movements not following commands. Waiting for guardianship. 8 L trach shield O2. Tolerating tube feeds with no residuals 45 cc/h. INR 2.6 11/08: Afebrile. Opens eyes but no meaningful contact not following commands. Requiring 8 L trach shield O2 mask. 11/07: Not responsive to stimuli, not making eye contact. Afebrile. Seen on 8 L trach collar canula. Hb 9.1 Renal labs stable INR 3.1. 11/06: Patient not meaningfully responding well. On trach shield and BiPAP as needed on trach. PEG feeds with no significant residuals. 11/05: Patient is still unresponsive. Pupils reactive to light and accommodation. No meaningful movements. Actively posturing at bed side. Has peg feeding at 45cc/hr. Trach shield at 8L and BIPAP PRN at 35%. There is an open wound at the site of the peg insertion. Wound care, Dr. Cirstobal is consulted. 11/04: Patient is still unresponsive. Pupils reactive to light and accommodation. Actively posturing at bedside. No meaningful movements. Has peg feeding at 45cc/hr. Trach shield at 8L and BIPAP PRN at 35%. 11/03: Patient seen and examined. Discussed with RN and outreach and education social worker. Chart reviewed. Patient is still unresponsive. Actively decorticate posturing at bedside. Eyes rolled upward. No meaningful movements. Has peg feeding at 45cc/hr. The bleeding at the peg insertion site has stopped. 11/02: Patient seen and examined. Chart reviewd. Discussed with RN and outreach and education social worker. Patient is still unresponsive. No meaningful movements. Actively decorticate posturing at bedside. Has peg feeding running at 45cc/hr. Some bleeding at the peg insertion site. 11/01: Patient seen and examined. Discussed with outreach and education social worker and RN. Patient is still unresponsive. No meaningful movements. Peg feeding is running at 45cc/hr. Patient is actively posturing at bed side. Trach shield at 8L and BIPAP PRN at 35%. 10/31: Patient seen and examined. Chart reviewed. Discussed with outreach and education social worker and RN. Patient still unresponsive. Patient actively posturing at bed side. Has peg running at 45cc/hr. Vestibulo-ocular reflex intact. 10/30: Patient seen and examined. Discussed with outreach and education social worker and RN. Chart reviewed. Patient actively posturing at bed side. Has peg running at 45cc/hr. Mr Andrews is a 70-year-old male with a recent prolonged hospitalization for STEMI and respiratory failure for which she was treated with arterial thrombolysis for a right leg popliteal artery aneurysm and also had left heart cath with placement of a stent in the LAD and RCA comes in today after he was found obtunded at his [place] [facility] facility. Apparently according to the nursing facility patient was in his usual state of health and he was conversational but then became altered. His blood glucose was found to be in the 30s. Glucose tabs and glucagon was given in route and his GCS reported at 6. Upon arrival patient's mental status did not improve and he was eventually intubated for airway protection. Of note EMS was bagging the patient through the nasal access. In the ED, patient was placed on a vent and pulmonology was consulted. Patient was also taken to the CT scanner for sanders scanning. Patient was started to wake up on the vent and sedation was ordered. 09/23: Patient examined at bedside. Intubated. Not on any sedation but unresponsive. Neurology consult in place. 09/24: Patient seen and examined at bedside. Remains intubated he is off sedation but still remains unresponsive. Planning for MRI brain in the morning. Further plan to be determined by MRI. 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 09/25: Afebrile, currently breathing on ventilator with FiO2 50%, PEEP 5. Had CODE BLUE in ICU this morning; received 2 rounds of CPR, epinephrine, and atropine with ROSC. MRI brain negative. Made DNR, and after discussion with Dr. Rubalcava he agrees. 09/26:: Afebrile. Still on vent, with FiO2 45%, PEEP 5. After discussion with Dr. Rubalcava yesterday, patient was made DNR. In the ED is likely a poor candidate for weaning trials may need trach in near future if no significant improvement. 09/27:: Afebrile. On vent with FiO2 40%, PEEP 5. Potassium 2.8 today, will replace. Warfarin has been resumed. Discussed with pharmacy, will resume aspirin and Plavix. May need tracheostomy by the end of the week if no improvement in mental status. 09/28:: Afebrile. On ventilator with FiO2 40%, PEEP 5. Warfarin has been resumed; INR 1.3 today. Some morning labs still pending; hemoglobin yesterday 7.3, will continue to monitor. Continue IV cefepime and supportive care. 09/29: Afebrile. Breathing on vent with FiO2 40%, PEEP 5. INR 1.2 today; pharmacy to help with warfarin dosing. White count within normal range, renal function stable. Spoke with pharmacy about cefepime 1 g every 8 hours dosing; this has been changed to cefepime 2 g every 8 hours. 09/30: Afebrile. Currently breathing on vent with FiO2 40%, PEEP 5. Continue antibiotics, cefepime 2 g every 8 hours. INR 1.4; continue warfarin dosing per pharmacy. Possible tracheostomy at some point. Critical care time 30 minutes reviewing charts, labs, examination, discussion with RN. 10/01: T-max 100.3 F. On ventilator with FiO2 40%, PEEP 5. Continue antibiotics, cefepime 2 g every 8 hours. INR 1.4, still subtherapeutic; continue warfarin dosing per pharmacy. Possible tracheostomy at some point. 10/02: No acute events overnight. Patient saturating 99% on vent settings of 10/450/40/5. Patient will likely need a trach and PEG at some point. We will hold warfarin and start 2 units PRBC transfusion. Patient's chart, labs, images were reviewed and discussed with RN 10/03: No acute events overnight. Patient sat 100% on minimal vent settings. No sedation at this point and patient is opening his eyes spontaneously. Not much response or spontaneous movements. Surgery has been consulted for tracheostomy. Patient will also likely need a PEG tube. 10/04: No acute events overnight. Patient saturating 90% on minimal vent settings. T-max 100.4 overnight. Plan for trach tomorrow with surgery. Kaden raza's chart, labs, images were reviewed and discussed with RN 10/05: No acute events overnight. Patient saturating 99% on minimal vent settings. Plan for tracheostomy today. Consent is provided by authorization by 2 physicians due to patient having no close relatives or DPOA. Will resume heparin and warfarin bridging tomorrow after tracheostomy 10/07: No acute events overnight. Patient seen and examined bedside. On trach vent. Saturating 99%. Pending GI evaluation for possible PEG placement after d iscussing with cardiology whether to continue with Plavix. Possibly place PEG if patient is only on aspirin and stopping argatroban. 10/08: No acute events overnight. Patient continues to be on trach mechanical vent. Saturating 100%. Pending decision from GI whether to proceed with PEG placement depending on the type of anticoagulation patient will be on. 10/09: No overnight events. On trach with vent support 40% FiO2 PEEP of 5. Currently argatroban and propofol for minimal sedation. When sedation is weaned he has no meaningful movements but has pulled at his tracheostomy site. Unable to hold plavix due to recently placed stents. 10/10: Afebrile today. On trach with vent support 40% FiO2 PEEP of 5. Continue argatroban and changed to Aggrastat in anticipation of surgical consultation for potential laparoscopic PEG placement. INR 1.6. Hb greater than 9 no significant neurologic recovery today. 10/11: Afebrile. On trach with vent support 40% FiO2 PEEP of 5. INR 1.8. Not making meaningful eye contact. Labs otherwise stable. 10/12: Afebrile. Trach with vent support 40% FiO2 PEEP five O2 saturations 92%. INR 1.8, mag 1.8, Hb 8.4. Not following commands. Tentative plans for surgical PEG next week. 10/13: Afebrile. Trach with vent support 40% FiO2 PEEP 5. Eyes open, not tracking or following commands. Holding Plavix. On argatroban. 10/14: Afebrile. Trach with vent support 40% FiO2 PEEP of 5. Will open eyes intermittently not necessarily to voice. Good urine output. Labs stable. 10/15: Afebrile overnight. Trach with vent AC 40% fio2 PEEP 5. Had a very large bowel movement. Still not tracking. Hb 9, INR 1.7, glucose 144. Tentative plan for PEG 10/18/2020 CC time 30 minutes 10/16/20: Patient seen and examined in the ICU. He was resting and still on vent via trach. Has NG running via Dobhoff, feeding at 40cc/hr. AC/10/450/40% plus 5 PEEP. Discussed with RN. Chart reviewed. 10/17/20: Patient was seen and examined in the ICU today. Still on vent via trach at AC/10/450/40 plus 5 PEEP. While examined, patient was at 100% O2 saturation. Has SCDs on for DVT prophylaxis. Stauffer catheter in place. On IV argatroban. R subclavian triple lumen in place. Dobhoff running at 40cc/hr. Discussed with RN. Chart reviewed. 10/18/20: Patient seen and examined in ICU. His eyes are open. On vent via trach with settings that were recently changed to spontaneous respirations with FiO2 of 40 and 5 PEEP. Trach is clean and dry. Currently, oxygen saturation is at 100%. Stauffer to bedside and rectal bag in place. Discussed with RN. Chart reviewed. 10/19/20: Patient was seen and examined in the ICU today. His eyes were open and he was resting. On BiPAP via trach AVAPS/10/450/40 plus 5 PEEP. Trach is clean and dry. Has SCDs for DVT prophylaxis. Patient has rectal bag, Stauffer to bedside, and NG tube in place. Discussed with RN. Chart reviewed. 10/20/20 No acute events overnight. Patient seen and examined bedside. Transferred from the ICU. Continues to be nonverbal and not following much commands. Opens eyes to voice. Currently on BiPAP via trach on AVAPS setting 450/40 PEEP of 5. Trach site is clear. No signs of infections. Patient's chart, labs, images were reviewed and discussed with RN 10/21/2020 No acute events overnight. Patient seen and examined bedside. Afebrile. Continues to be nonverbal but opens eyes to voice. Currently on BiPAP. Patient's chart, labs, images were reviewed and discussed with RN. 10/22/2020 No acute events overnight. Patient seen examined bedside. Continue with argatroban until warfarin goal INR of 4 and maintenance goal of 2-3. Please see gericare aide teacher note. Pending appointing a legal guardian. Patient's chart, labs, images were reviewed and discussed with RN 10/23/2020 laparoscopic gastrostomy tube placement (specifically 24 F) Oct discharge planning in place once court appointed DPOA available Acute anemia Acute metabolic, infectious encephalopathy Acute respiratory failure Healthcare associated pneumonia Acute hypoglycemia Hypokalemia Elevated troponins Severe protein malnutrition Morbid obesity AAA, 4 cm, infrarenal History of diabetes mellitus type 2 History of dyslipidemia history of hypertension Patient seen examined bedside. argatroban until warfarin goal INR of 4 and maintenance goal of 2-3. Pending appointing a legal guardian. Patient's chart, labs, images were reviewed and discussed with RN Ronald Enteric tube with metallic tip in the left upper quadrant likely in the stomach. 10/24/2020 doing well on trach shield on a 24-hour basis./ blood gases shows no worsening hypercapnia while on trach shield. No apneic breathing reported. laparoscopic gastrostomy tube placement (specifically 24 F) Oct discharge planning in place once court appointed DPOA available Acute anemia Acute metabolic, infectious encephalopathy Acute respiratory failure Healthcare associated pneumonia Acute hypoglycemia Hypokalemia Elevated troponins Severe protein malnutrition Morbid obesity AAA, 4 cm, infrarenal History of diabetes mellitus type 2 History of dyslipidemia history of hypertension Patient seen examined bedside. argatroban until warfarin goal INR of 4 and maintenance goal of 2-3. Pending appointing a legal guardian. Patient's chart, labs, images were reviewed and discussed with KARY Cardenas Enteric tube with metallic tip in the left upper quadrant likely in the stomach. Home on plavix and warfarin D/C INITIAL PLAN TO [facility]ENDING/ discharge planning in place once court appointed DPOA available D/W RN 10/25/2020 doing well on trach shield on a 24-hour basis./ blood gases shows no worsening hypercapnia while on trach shield. No apneic breathing reported. laparoscopic gastrostomy tube placement (specifically 24 F) Oct discharge planning in place once court appointed DPOA available Acute anemia Acute metabolic, infectious encephalopathy Acute respiratory failure Healthcare associated pneumonia Acute hypoglycemia Hypokalemia Elevated troponins Severe protein malnutrition Morbid obesity AAA, 4 cm, infrarenal History of diabetes mellitus type 2 History of dyslipidemia history of hypertension Patient seen examined bedside. argatroban until warfarin goal INR of 4 and maintenance goal of 2-3. Pending appointing a legal guardian. Patient's chart, labs, images were reviewed and discussed with KARY Cardenas Enteric tube with metallic tip in the left upper quadrant likely in the stomach. Home on plavix and warfarin D/C INITIAL PLAN TO [facility]END[facility]/ discharge planning in place once court appointed DPOA available D/W RN 10/26/2020 HGB 9.4 doing well on trach shield on a 24-hour basis./ blood gases shows no worsening hypercapnia while on trach shield. No apneic breathing reported. laparoscopic gastrostomy tube placement (specifically 24 F) Oct discharge planning in place once court appointed DPOA available Acute anemia Acute metabolic, infectious encephalopathy Acute respiratory failure Healthcare associated pneumonia Acute hypoglycemia Hypokalemia Elevated troponins Severe protein malnutrition Morbid obesity AAA, 4 cm, infrarenal History of diabetes mellitus type 2 History of dyslipidemia history of hypertension Patient seen examined bedside. argatroban until warfarin goal INR of 4 and maintenance goal of 2-3. Pending appointing a legal guardian. Patient's chart, labs, images were reviewed and discussed with KARY Cardenas Enteric tube with metallic tip in the left upper quadrant likely in the stomach. Home on plavix and warfarin D/C INITIAL PLAN TO [facility]END[facility]/ discharge planning in place once court appointed DPOA available D/W RN 10/27/2020 HGB 9.4 doing well on trach shield on a 24-hour basis./ blood gases shows no worsening hypercapnia while on trach shield. No apneic breathing reported. laparoscopic gastrostomy tube placement (specifically 24 F) Oct discharge planning in place once court appointed DPOA available Acute anemia Acute metabolic, infectious encephalopathy Acute respiratory failure Healthcare associated pneumonia Acute hypoglycemia Hypokalemia Elevated troponins Severe protein malnutrition Morbid obesity AAA, 4 cm, infrarenal History of diabetes mellitus type 2 History of dyslipidemia history of hypertension Patient seen examined bedside. argatroban until warfarin goal INR of 4 and maintenance goal of 2-3. Pending appointing a legal guardian. Patient's chart, labs, images were reviewed and discussed with KARY Cardenas Enteric tube with metallic tip in the left upper quadrant likely in the stomach. Home on plavix and warfarin D/C INITIAL PLAN TO [facility]END[facility]/ discharge planning in place once court appointed DPOA available D/W RN 10/28/2020 HGB 9.4 doing well on trach shield on a 24-hour basis./ blood gases shows no worsening hypercapnia while on trach shield. No apneic breathing reported. laparoscopic gastrostomy tube placement (specifically 24 F) Oct discharge planning in place once court appointed DPOA available Acute anemia Acute metabolic, infectious encephalopathy Acute respiratory failure Healthcare associated pneumonia Acute hypoglycemia Hypokalemia Elevated troponins Severe protein malnutrition Morbid obesity AAA, 4 cm, infrarenal History of diabetes mellitus type 2 History of dyslipidemia history of hypertension Patient seen examined bedside. argatroban until warfarin goal INR of 4 and maintenance goal of 2-3. Pending appointing a legal guardian. Patient's chart, labs, images were reviewed and discussed with KARY Cardenas Enteric tube with metallic tip in the left upper quadrant likely in the stomach. Home on plavix and warfarin D/C INITIAL PLAN TO [facility]END[facility]/ discharge planning in place once court appointed DPOA available D/W KARY Vitals/I&O Vitals/I&O: Vital Signs Date Time Temp Pulse Resp B/P (MAP) Pulse Ox O2 Delivery O2 Flow Rate FiO2 11/22/20 14:19 97.6 82 20 135/70 (91) 100 TRACH SHIELD 8.0 97.6 I & O 11/21/20 11/21/2011/22/21 15:00 23:00 07:00 Intake Total 280 ml 120 ml 950 ml Output Total 475 ml 1225 ml 500 ml Balance -195 ml -1105 ml 450 ml Physical Exam Physical Exam: Neuro: actively posturing. Pulpils dialated but reactive to light and accomendation. Flaccidity in the lower extremity bilaterally. Equivocal Babinski. General: Other (actively posturing. No meaningful movements. ) Heart: Regular rate (SR), Other (distant heart sounds) Lungs: Other (Tracheostomy with trach shield. Deminished breath sounds.) Abdomen: Soft, Other (g tube in place) Extremities: No cyanosis, Other (2-3+ bilateral LE pitting edema) Skin: No rashes, No significant lesion Labs Labs: Laboratory Tests Test 11/21/20 17:10 11/21/20 23:52 11/22/20 06:30 11/22/20 06:45 Glucose (Fingerstick) 147 mg/dL (70-99) 136 mg/dL (70-99) 150 mg/dL (70-99) Prothrombin Time 38.1 SEC (11.7-14.0) Prothromb Time International Ratio 4.0 (0.8-1.1) Test 11/22/20 12:17 Glucose (Fingerstick) 162 mg/dL (70-99) Assessment and Plan Assessmemt and Plan Problems Medical Problems: (1) NSTEMI (non-ST elevated myocardial infarction) Status: Acute (2) Obtundation Status: Acute (3) Respiratory arrest Status: Acute Comment Review of Relevant I have reviewed the following items denise (where applicable) has been applied. Justifications for Admission Other Justification Hypoglycemia and altered mental status. NAIDA LÓPEZ MD Nov 22, 2020 14:48
--- NOTE | 2020-11-22 15:39 | NUR ---
SS following up with discharge planning. SS reviewed pt chart and discussed with pt RN. Pt is currently on trach shield at 35%. G-Tube in place. Pt on IV Lasix and PO Clindamycin through PEG. COVID19 negative. Pt in need of DPOA or Guardianship for placement at LTACH or LTC facility. Shuttle Inspector, Amarilis Matthews, assigned to case and is in need of proposed guardian prior to proceeding. Pt's niece, Casandra Andrews, , and her spouse Han Joevl are requesting to be proposed Guardians at this time. Signed paperwork was faxed to ip attorney. SS currently awaiting further instructions at this time. Pt accepted at [facility], ; fax [phone], pending insurance authorization. SS will continue to follow for discharge planning.
[2020-11-22 19:00] VITALS: BP 138/74
[2020-11-22] MEDS: ATORVASTATIN CALCIUM 40 MG TABLET. PO SCH (19:44)
[2020-11-22 23:00] VITALS: BP 145/92
[2020-11-23 03:00] VITALS: BP 110/70
[2020-11-23] MEDS: INSULIN LISPRO 300 UNITS/3 ML VIAL. SQ SCH ×4 (05:29→23:23)
[2020-11-23] MEDS: CLINDAMYCIN HCL 150 MG CAPSULE. PEG SCH ×4 (05:29→23:10)
[2020-11-23 07:00] VITALS: BP 127/71
--- NOTE | 2020-11-23 08:49 | NUR ---
Pharmacy Warfarin Dosing Note S:Pharmacy consulted to assist with anticoagulation therapy started with target INR: 2 -3 O:DEMETRICE HOWE is a 70 year old M with Atrial Fibrillation, DVT/PE, HIT LABS: Last INR: 4 Last HGB: 7.3 Last HCT: 22.2 Last PLT: 266 Last dose of 4 mg given on 11/19/20 at 1603 Previous Regimen: Last admission 08/16/20 was on 5 mg warfarin daily on discharge. Vitamin K given: N Drug Interaction Changes: Same Interacting Drug Ongoing Drug Interactions: amiodarone, aspirin, plavix A:INR of 4 (11/22) is above desired range. Target range for this patient is: 2 -3 P: Warfarin dose: Hold Today Bridge Therapy: None Next INR due 11/24/20 Pharmacy anticoagulation service will continue to follow. NICK JONES RPH, 11/23/20 [id number]
[2020-11-23] MEDS: ASPIRIN CHEWABLE 81 MG TABLET. PO SCH (09:43)
[2020-11-23] MEDS: FLUCONAZOLE 100 MG TABLET. PEG SCH (09:43)
[2020-11-23] MEDS: POTASSIUM BICARB 20 MEQ EFFERVESCENT TABLET. PEG SCH (09:43)
[2020-11-23] MEDS: AMIODARONE HCL 200 MG TABLET. PO SCH (09:44)
[2020-11-23] MEDS: DOCUSATE 100 MG/10 ML SOLUTION. PO SCH (09:44)
[2020-11-23] MEDS: CLOPIDOGREL BISULFATE 75 MG TABLET PO SCH (09:45)
[2020-11-23] MEDS: METOPROLOL TART IMMED RELEASE 25 MG TABLET. PO SCH ×2 (09:45→21:49)
[2020-11-23] MEDS: FUROSEMIDE 40 MG/4 ML VIAL. IVP SCH (09:46)
[2020-11-23] MEDS: LANSOPRAZOLE 30 MG TAB.RAP.DR FT SCH (09:49)
[2020-11-23 10:57] VITALS: BP 105/69
--- NOTE | 2020-11-23 11:33 | PDOC ---
[employer] PROGRESS NOTE Date of Service DOS: DATE: 11/23/20 TIME: 11:30 Chief Complaint Chief Complaint Acute anemia Acute metabolic, infectious encephalopathy Acute hypoxic respiratory failure Healthcare associated pneumonia Acute hypoglycemia Hypokalemia Elevated troponins Severe protein malnutrition Morbid obesity AAA, 4 cm, infrarenal History of diabetes mellitus type 2 History of dyslipidemia history of hypertension History of recent STEMI History of CAD History of peripheral artery disease History of JEANNE History of CVA History of paroxysmal atrial fibrillation Ischemic cardiomyopathy History of Present Illness History of Present Illness 11/23: Afebrile, on trach collar is a clear. Niece present at bedside and updated her on patient's clinical course and likely poor prognosis of recovery. Some bleeding from right olecranon process secondary to irritated scab. Given the fact that patient is on blood thinners, if unable to control with compression may need to hold warfarin temporarily until hemostasis can be ob tained. Accepted at [facility], pending insurance authorization. 11/22: No acute change overnight. On trach collar 8 L. Guardianship papers were signed yesterday by niece. Patient has been accepted to [facility], pending insurance authorization. 11/21: Afebrile. Tolerated trach shield with BiPAP overnight. Guardianship papers to be signed today by patient's niece. Transfer to LTAC at [facility] in the near future pending insurance authorization. 11/20: Afebrile, on trach collar 8 L. Patient's niece is applying for guardianship prior to transfer to [facility] LTAC at [facility]. She has decided to make patient full code. Anticipate transfer to LTAC in near future. RN discussed with patient's niece, she would like his CODE STATUS to be full code. I agree with Dr. Ennis, no prognosis for meaningful recovery. Discussed with niece (Casandradirk Andrews) by phone about poor prognosis and goals of care; she reiterates that she would like him to still be full code at this time. 11/19 Patient evaluated and examined at bedside. He was on the trach collar at 8. Informed patient's niece today that really only thing waiting on now is guardianship to be approved. Hopeful for that to happen in the coming week. Otherwise continue to monitor respiratory status. No major neurologic changes. Plan of care discussed with bedside RN. 11/18 On trach collar when being seen. Still with minimal neurologic status. Once social issues sorted out well discharge. 11/17 Patient evaluated and examined at bedside. He was tolerating being on the trach collar when seen. No change in neurologic status really. I have written a letter to send to the local lead fire protection engineer with my support for his need of a guardian. 11/16 Patient evaluated and examined at bedside. Patient's niece at bedside discussed case at length with her and ongoing plan. He does present as movement in his upper extremities today. He did open his eyes to his niece's voice earlier. Continue current plan of care. 11/15 Patient evaluated and examined at bedside. Remains minimally responsive. He is discharged ready. Just waiting for social issues to be sorted out. Possible discharge 11/14: No sort of clinical change overnight. Remains encephalopathic. Can discharge whenever guardianship and social issues mediated. 11/13: Afebrile. Still no meaningful response to any sort of interaction. Remains on trach. PEG tube. Complicated social situation. Afebrile. BP a little up today. Continues to remain encephalopathic off sedation requiring 8 L trach shield O2 with O2 saturations 91%. Tolerating PEG feeds with free water boluses. INR 2.8. Discussed with anabel Guajardo she is reaching out to the rest of the family. 11/11: Afebrile. No meaningful following of commands, opens eyes. Requires 8L trach shield O2 to maintain O2 saturations 90%. No residuals on PEG tube feeds. Discussed with anabel Guajardo bedside she is going to reach out to the rest of the family now the family has been located. 11/10: Afebrile. Continues to be encephalopathic no meaningful eye contact movements not following commands. Requiring 8 L trach shield O2 to maintain saturations 91%. No residuals on tube feeds 45 cc/h. INR 2.8. Throughout heroic efforts by social work estranged family has been found and has a niece who will be visiting sometime potentially later today or tomorrow 11/09: Afebrile. Still encephalopathic not making any meaningful eye contact or movements not following commands. Waiting for guardianship. 8 L trach shield O2. Tolerating tube feeds with no residuals 45 cc/h. INR 2.6 11/08: Afebrile. Opens eyes but no meaningful contact not following commands. Requiring 8 L trach shield O2 mask. 11/07: Not responsive to stimuli, not making eye contact. Afebrile. Seen on 8 L trach collar canula. Hb 9.1 Renal labs stable INR 3.1. 11/06: Patient not meaningfully responding well. On trach shield and BiPAP as needed on trach. PEG feeds with no significant residuals. 11/05: Patient is still unresponsive. Pupils reactive to light and accommodation. No meaningful movements. Actively posturing at bed side. Has peg feeding at 45cc/hr. Trach shield at 8L and BIPAP PRN at 35%. There is an open wound at the site of the peg insertion. Wound care, Dr. Cristobal is consulted. 11/04: Patient is still unresponsive. Pupils reactive to light and accommodation. Actively posturing at bedside. No meaningful movements. Has peg feeding at 45cc/hr. Trach shield at 8L and BIPAP PRN at 35%. 11/03: Patient seen and examined. Discussed with RN and director social welfare. Chart reviewed. Patient is still unresponsive. Actively decorticate posturing at bedside. Eyes rolled upward. No meaningful movements. Has peg feeding at 45cc/hr. The bleeding at the peg insertion site has stopped. 11/02: Patient seen and examined. Chart reviewd. Discussed with RN and director social welfare. Patient is still unresponsive. No meaningful movements. Actively decorticate posturing at bedside. Has peg feeding running at 45cc/hr. Some bleeding at the peg insertion site. 11/01: Patient seen and examined. Discussed with director social welfare and RN. Patient is still unresponsive. No meaningful movements. Peg feeding is running at 45cc/hr. Patient is actively posturing at bed side. Trach shield at 8L and BIPAP PRN at 35%. 10/31: Patient seen and examined. Chart reviewed. Discussed with director social welfare and RN. Patient still unresponsive. Patient actively posturing at bed side. Has peg running at 45cc/hr. Vestibulo-ocular reflex intact. 10/30: Patient seen and examined. Discussed with director social welfare and RN. Chart reviewed. Patient actively posturing at bed side. Has peg running at 45cc/hr. Mr Andrews is a 70-year-old male with a recent prolonged hospitalization for STEMI and respiratory failure for which she was treated with arterial thrombolysis for a right leg popliteal artery aneurysm and also had left heart cath with placement of a stent in the LAD and RCA comes in today after he was found obtunded at his [facility] facility. Apparently according to the nursing facility patient was in his usual state of health and he was conversational but then became altered. His blood glucose was found to be in the 30s. Glucose tabs and glucagon was given in route and his GCS reported at 6. Upon arrival patient's mental status did not improve and he was eventually intubated for airway protection. Of note EMS was bagging the patient through the nasal access. In the ED, patient was placed on a vent and pulmonology was consulted. Patient was also taken to the CT scanner for sanders scanning. Patient was started to wake up on the vent and sedation was ordered. 09/23: Patient examined at bedside. Intubated. Not on any sedation but unresponsive. Neurology consult in place. 09/24: Patient seen and examined at bedside. Remains intubated he is off sedation but still remains unresponsive. Planning for MRI brain in the morning. Further plan to be determined by MRI. 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 09/25: Afebrile, currently breathing on ventilator with FiO2 50%, PEEP 5. Had CODE BLUE in ICU this morning; received 2 rounds of CPR, epinephrine, and atropine with ROSC. MRI brain negative. Made DNR, and after discussion with Dr. Rubalcava he agrees. 09/26:: Afebrile. Still on vent, with FiO2 45%, PEEP 5. After discussion with Dr. Rubalcava yesterday, patient was made DNR. In the ED is likely a poor candidate for weaning trials may need trach in near future if no significant improvement. 09/27:: Afebrile. On vent with FiO2 40%, PEEP 5. Potassium 2.8 today, will replace. Warfarin has been resumed. Discussed with pharmacy, will resume aspirin and Plavix. May need tracheostomy by the end of the week if no improvement in mental status. 09/28:: Afebrile. On ventilator with FiO2 40%, PEEP 5. Warfarin has been resumed; INR 1.3 today. Some morning labs still pending; hemoglobin yesterday 7.3, will continue to monitor. Continue IV cefepime and supportive care. 09/29: Afebrile. Breathing on vent with FiO2 40%, PEEP 5. INR 1.2 today; pharmacy to help with warfarin dosing. White count within normal range, renal function stable. Spoke with pharmacy about cefepime 1 g every 8 hours dosing; this has been changed to cefepime 2 g every 8 hours. 09/30: Afebrile. Currently breathing on vent with FiO2 40%, PEEP 5. Continue antibiotics, cefepime 2 g every 8 hours. INR 1.4; continue warfarin dosing per pharmacy. Possible tracheostomy at some point. Critical care time 30 minutes reviewing charts, labs, examination, discussion with RN. 10/01: T-max 100.3 F. On ventilator with FiO2 40%, PEEP 5. Continue antibiotics , cefepime 2 g every 8 hours. INR 1.4, still subtherapeutic; continue warfarin dosing per pharmacy. Possible tracheostomy at some point. 10/02: No acute events overnight. Patient saturating 99% on vent settings of 10/450/40/5. Patient will likely need a trach and PEG at some point. We will hold warfarin and start 2 units PRBC transfusion. Patient's chart, labs, images were reviewed and discussed with RN 10/03: No acute events overnight. Patient sat 100% on minimal vent settings. No sedation at this point and patient is opening his eyes spontaneously. Not much response or spontaneous movements. Surgery has been consulted for tracheostomy. Patient will also likely need a PEG tube. 10/04: No acute events overnight. Patient saturating 90% on minimal vent settings. T-max 100.4 overnight. Plan for trach tomorrow with surgery. Patient's chart, labs, images were reviewed and discussed with RN 10/05: No acute events overnight. Patient saturating 99% on minimal vent settings. Plan for tracheostomy today. Consent is provided by authorization by 2 physicians due to patient having no close relatives or DPOA. Will resume heparin and warfarin bridging tomorrow after tracheostomy 10/07: No acute events overnight. Patient seen and examined bedside. On trach v ent. Saturating 99%. Pending GI evaluation for possible PEG placement after discussing with cardiology whether to continue with Plavix. Possibly place PEG if patient is only on aspirin and stopping argatroban. 10/08: No acute events overnight. Patient continues to be on trach mechanical vent. Saturating 100%. Pending decision from GI whether to proceed with PEG placement depending on the type of anticoagulation patient will be on. 10/09: No overnight events. On trach with vent support 40% FiO2 PEEP of 5. Currently argatroban and propofol for minimal sedation. When sedation is weaned he has no meaningful movements but has pulled at his tracheostomy site. Unable to hold plavix due to recently placed stents. 10/10: Afebrile today. On trach with vent support 40% FiO2 PEEP of 5. Continue argatroban and changed to Aggrastat in anticipation of surgical consultation for potential laparoscopic PEG placement. INR 1.6. Hb greater than 9 no significant neurologic recovery today. 10/11: Afebrile. On trach with vent support 40% FiO2 PEEP of 5. INR 1.8. Not making meaningful eye contact. Labs otherwise stable. 10/12: Afebrile. Trach with vent support 40% FiO2 PEEP five O2 saturations 92%. INR 1.8, mag 1.8, Hb 8.4. Not following commands. Tentative plans for surgical PEG next week. 10/13: Afebrile. Trach with vent support 40% FiO2 PEEP 5. Eyes open, not tracking or following commands. Holding Plavix. On argatroban. 10/14: Afebrile. Trach with vent support 40% FiO2 PEEP of 5. Will open eyes intermittently not necessarily to voice. Good urine output. Labs stable. 10/15: Afebrile overnight. Trach with vent AC 40% fio2 PEEP 5. Had a very large bowel movement. Still not tracking. Hb 9, INR 1.7, glucose 144. Tentative plan for PEG 10/18/2020 CC time 30 minutes 10/16/20: Patient seen and examined in the ICU. He was resting and still on vent via trach. Has NG running via Dobhoff, feeding at 40cc/hr. AC/10/450/40% plus 5 PEEP. Discussed with RN. Chart reviewed. 10/17/20: Patient was seen and examined in the ICU today. Still on vent via trach at AC/10/450/40 plus 5 PEEP. While examined, patient was at 100% O2 saturation. Has SCDs on for DVT prophylaxis. Stauffer catheter in place. On IV argatroban. R subclavian triple lumen in place. Dobhoff running at 40cc/hr. Discussed with RN. Chart reviewed. 10/18/20: Patient seen and examined in ICU. His eyes are open. On vent via trach with settings that were recently changed to spontaneous respirations with FiO2 of 40 and 5 PEEP. Trach is clean and dry. Currently, oxygen saturation is at 100%. Stauffer to bedside and rectal bag in place. Discussed with RN. Chart reviewed. 10/19/20: Patient was seen and examined in the ICU today. His eyes were open and he was resting. On BiPAP via trach AVAPS/10/450/40 plus 5 PEEP. Trach is clean and dry. Has SCDs for DVT prophylaxis. Patient has rectal bag, Stauffer to bedside, and NG tube in place. Discussed with RN. Chart reviewed. 10/20/20 No acute events overnight. Patient seen and examined bedside. Transferred from the ICU. Continues to be nonverbal and not following much commands. Opens eyes to voice. Currently on BiPAP via trach on AVAPS setting 10/450/40 PEEP of 5. Trach site is clear. No signs of infections. Patient's chart, labs, images were reviewed and discussed with RN 10/21/2020 No acute events overnight. Patient seen and examined bedside. Afebrile. Continues to be nonverbal but opens eyes to voice. Currently on BiPAP. Patient's chart, labs, images were reviewed and discussed with RN. 10/22/2020 No acute events overnight. Patient seen examined bedside. Continue with argatroban until warfarin goal INR of 4 and maintenance goal of 2-3. Please see general ii farmworker note. Pending appointing a legal guardian. Patient's chart, labs, images were reviewed and discussed with RN 10/23/2020 laparoscopic gastrostomy tube placement (specifically 24 F) Oct discharge planning in place once court appointed DPOA available Acute anemia Acute metabolic, infectious encephalopathy Acute respiratory failure Healthcare associated pneumonia Acute hypoglycemia Hypokalemia Elevated troponins Severe protein malnutrition Morbid obesity AAA, 4 cm, infrarenal History of diabetes mellitus type 2 History of dyslipidemia history of hypertension Patient seen examined bedside. argatroban until warfarin goal INR of 4 and maintenance goal of 2-3. Pending appointing a legal guardian. Patient's chart, labs, images were reviewed and discussed with RN Dobhoff Enteric tube with metallic tip in the left upper quadrant likely in the stomach. 10/24/2020 doing well on trach shield on a 24-hour basis./ blood gases shows no worsening hypercapnia while on trach shield. No apneic breathing reported. laparoscopic gastrostomy tube placement (specifically 24 F) Oct discharge planning in place once court appointed DPOA available Acute anemia Acute metabolic, infectious encephalopathy Acute respiratory failure Healthcare associated pneumonia Acute hypoglycemia Hypokalemia Elevated troponins Severe protein malnutrition Morbid obesity AAA, 4 cm, infrarenal History of diabetes mellitus type 2 History of dyslipidemia history of hypertension Patient seen examined bedside. argatroban until warfarin goal INR of 4 and maintenance goal of 2-3. Pending appointing a legal guardian. Patient's chart, labs, images were reviewed and discussed with KARY Cardenas Enteric tube with metallic tip in the left upper quadrant likely in the stomach. Home on plavix and warfarin D/C INITIAL PLAN TO [facility] PENDING/ discharge planning in place once court appointed DPOA available D/W RN 10/25/2020 doing well on trach shield on a 24-hour basis./ blood gases shows no worsening hypercapnia while on trach shield. No apneic breathing reported. laparoscopic gastrostomy tube placement (specifically 24 F) Oct discharge planning in place once court appointed DPOA available Acute anemia Acute metabolic, infectious encephalopathy Acute respiratory failure Healthcare associated pneumonia Acute hypoglycemia Hypokalemia Elevated troponins Severe protein malnutrition Morbid obesity AAA, 4 cm, infrarenal History of diabetes mellitus type 2 History of dyslipidemia history of hypertension Patient seen examined bedside. argatroban until warfarin goal INR of 4 and maintenance goal of 2-3. Pending appointing a legal guardian. Patient's chart, labs, images were reviewed and discussed with KARY Cardenas Enteric tube with metallic tip in the left upper quadrant likely in the stomach. Home on plavix and warfarin D/C INITIAL PLAN TO [facility] PENDING/ discharge planning in place once court appointed DPOA available D/W RN 10/26/2020 HGB 9.4 doing well on trach shield on a 24-hour basis./ blood gases shows no worsening hypercapnia while on trach shield. No apneic breathing reported. laparoscopic gastrostomy tube placement (specifically 24 F) Oct discharge planning in place once court appointed DPOA available Acute anemia Acute metabolic, infectious encephalopathy Acute respiratory failure Healthcare associated pneumonia Acute hypoglycemia Hypokalemia Elevated troponins Severe protein malnutrition Morbid obesity AAA, 4 cm, infrarenal History of diabetes mellitus type 2 History of dyslipidemia history of hypertension Patient seen examined bedside. argatroban until warfarin goal INR of 4 and maintenance goal of 2-3. Pending appointing a legal guardian. Patient's chart, labs, images were reviewed and discussed with KARY Cardenas Enteric tube with metallic tip in the left upper quadrant likely in the stomach. Home on plavix and warfarin D/C INITIAL PLAN TO [facility] PENDING/ discharge planning in place once court appointed DPOA available D/W RN 10/27/2020 HGB 9.4 doing well on trach shield on a 24-hour basis./ blood gases shows no worsening hypercapnia while on trach shield. No apneic breathing reported. laparoscopic gastrostomy tube placement (specifically 24 F) Oct discharge planning in place once court appointed DPOA available Acute anemia Acute metabolic, infectious encephalopathy Acute respiratory failure Healthcare associated pneumonia Acute hypoglycemia Hypokalemia Elevated troponins Severe protein malnutrition Morbid obesity AAA, 4 cm, infrarenal History of diabetes mellitus type 2 History of dyslipidemia history of hypertension Patient seen examined bedside. argatroban until warfarin goal INR of 4 and maintenance goal of 2-3. Pending appointing a legal guardian. Patient's chart, labs, images were reviewed and discussed with KARY Cardenas Enteric tube with metallic tip in the left upper quadrant likely in the stomach. Home on plavix and warfarin D/C INITIAL PLAN TO [facility] PENDING/ discharge planning in place once court appointed DPOA available D/W RN 10/28/2020 HGB 9.4 doing well on trach shield on a 24-hour basis./ blood gases shows no worsening h ypercapnia while on trach shield. No apneic breathing reported. laparoscopic gastrostomy tube placement (specifically 24 F) Oct discharge planning in place once court appointed DPOA available Acute anemia Acute metabolic, infectious encephalopathy Acute respiratory failure Healthcare associated pneumonia Acute hypoglycemia Hypokalemia Elevated troponins Severe protein malnutrition Morbid obesity AAA, 4 cm, infrarenal History of diabetes mellitus type 2 History of dyslipidemia history of hypertension Patient seen examined bedside. argatroban until warfarin goal INR of 4 and maintenance goal of 2-3. Pending appointing a legal guardian. Patient's chart, labs, images were reviewed and discussed with KARY Cardenas Enteric tube with metallic tip in the left upper quadrant likely in the stomach. Home on plavix and warfarin D/C INITIAL PLAN TO [facility] PENDING/ discharge planning in place once court appointed DPOA available D/W RN Vitals/I&O Vitals/I&O: Vital Signs Date Time Temp Pulse Resp B/P (MAP) Pulse Ox O2 Delivery O2 Flow Rate FiO2 11/23/20 10:57 98.7 83 18 105/69 (81) 100 trachshield 8.0 98.7 I & O 11/22/20 11/22/20 11/23/20 15:00 23:00 07:00 Intake Total 120 ml 120 ml Output Total 700 ml 450 ml 650 ml Balance -580 ml -330 ml -650 ml Physical Exam Physical Exam: Neuro: actively posturing. Pulpils dialated but reactive to light and accomendation. Flaccidity in the lower extremity bilaterally. Equivocal Babinski. General: Other (actively posturing. No meaningful movements. ) Heart: Regular rate (SR), Other (distant heart sounds) Lungs: Other (Tracheostomy with trach shield. Deminished breath sounds.) Abdomen: Soft, Other (g tube in place) Extremities: No cyanosis, Other (2-3+ bilateral LE pitting edema) Skin: No rashes, No significant lesion Labs Labs: Laboratory Tests Test 11/22/20 12:17 11/22/20 23:18 11/23/20 05:34 Glucose (Fingerstick) 162 mg/dL (70-99) 145 mg/dL (70-99) 158 mg/dL (70-99) Assessment and Plan Assessmemt and Plan Problems Medical Problems: (1) NSTEMI (non-ST elevated myocardial infarction) Status: Acute (2) Obtundation Status: Acute (3) Respiratory arrest Status: Acute Comment Review of Relevant I have reviewed the following items denise (where applicable) has been applied. Justifications for Admission Other Justification Hypoglycemia and altered mental status. NIADA LÓPEZ MD Nov 23, 2020 11:33
--- NOTE | 2020-11-23 13:20 | NUR ---
SS following up with discharge planning. SS reviewed pt chart and discussed with pt RN. Pt is currently on trach shield at 35%. G-Tube in place. Pt on IV Lasix and PO Clindamycin and PO Diflucan through PEG. COVID19 negative. Pt in need of DPOA or Guardianship for placement at LTACH or LTC facility. Resin Filterer, Amarilis Matthews, assigned to case and is in need of proposed guardian prior to proceeding. Pt's niece, Casandra Andrews, , and her spouse Han Jovel are requesting to be proposed Guardians at this time. Signed paperwork was faxed to mergers and acquisitions attorney. SS currently awaiting further instructions at this time. Pt accepted at [facility], ; fax [phone], pending insurance authorization. Clinical updates phoned and faxed to [facility] SS will continue to follow for discharge planning.
[2020-11-23 15:00] VITALS: BP 62/69
[2020-11-23 19:00] VITALS: BP 100/59
[2020-11-23] MEDS: ATORVASTATIN CALCIUM 40 MG TABLET. PO SCH (21:48)
[2020-11-23 22:56] VITALS: BP 96/67
[2020-11-24 03:00] VITALS: BP 138/82
[2020-11-24] MEDS: CLINDAMYCIN HCL 150 MG CAPSULE. PEG SCH ×4 (05:58→23:47)
[2020-11-24] MEDS: INSULIN LISPRO 300 UNITS/3 ML VIAL. SQ SCH ×3 (06:12→18:24)
[2020-11-24 06:42] LABS: PROTHROMBIN TIME PATIENT 26.4 SEC (11.7-14.0)
[2020-11-24 07:00] VITALS: BP 130/82
--- NOTE | 2020-11-24 09:13 | PDOC ---
[employer] PROGRESS NOTE Date of Service DOS: DATE: 11/24/20 TIME: 09:11 Chief Complaint Chief Complaint Acute anemia Acute metabolic, infectious encephalopathy Acute hypoxic respiratory failure Healthcare associated pneumonia Acute hypoglycemia Hypokalemia Elevated troponins Severe protein malnutrition Morbid obesity AAA, 4 cm, infrarenal History of diabetes mellitus type 2 History of dyslipidemia history of hypertension History of recent STEMI History of CAD History of peripheral artery disease History of JEANNE History of CVA History of paroxysmal atrial fibrillation Ischemic cardiomyopathy History of Present Illness History of Present Illness 11/24: Afebrile, 8 L on trach collar. Dressings to right elbow change, appear to have obtained hemostasis. Accepted at [facility], pending insurance authorization. 11/23: Afebrile, on trach collar is a clear. Niece present at bedside and updated her on patient's clinical course and likely poor prognosis of recovery. Some bleeding from right olecranon process secondary to irritated scab. Given the fact that patient is on blood thinners, if unable to control with compression may need to hold warfarin temporarily until hemostasis can be obtained. Accepted at [facility], pending insurance authoriza tion. 11/22: No acute change overnight. On trach collar 8 L. Guardianship papers were signed yesterday by niece. Patient has been accepted to [facility], pending insurance authorization. 11/21: Afebrile. Tolerated trach shield with BiPAP overnight. Guardianship papers to be signed today by patient's niece. Transfer to LTAC at [facility] in the near future pending insurance authorization. 11/20: Afebrile, on trach collar 8 L. Patient's niece is applying for guardianship prior to transfer to [facility]. She has decided to make patient full code. Anticipate transfer to LTAC in near future. RN discussed with patient's niece, she would like his CODE STATUS to be full code. I agree with Dr. Ennis, no prognosis for meaningful recovery. Discussed with niece (Casandra Andrews) by phone about poor prognosis and goals of care; she reiterates that she would like him to still be full code at this time. 11/19 Patient evaluated and examined at bedside. He was on the trach collar at 8. Informed patient's niece today that really only thing waiting on now is guardianship to be approved. Hopeful for that to happen in the coming week. Otherwise continue to monitor respiratory status. No major neurologic changes. Plan of care discussed with bedside RN. 11/18 On trach collar when being seen. Still with minimal neurologic status. Once social issues sorted out well discharge. 11/17 Patient evaluated and examined at bedside. He was tolerating being on the trach collar when seen. No change in neurologic status really. I have written a letter to send to the local labelling machine operator with my support for his need of a guardian. 11/16 Patient evaluated and examined at bedside. Patient's niece at bedside discussed case at length with her and ongoing plan. He does present as movement in his upper extremities today. He did open his eyes to his niece's voice earlier. Continue current plan of care. 11/15 Patient evaluated and examined at bedside. Remains minimally responsive. He is discharged ready. Just waiting for social issues to be sorted out. Possible discharge 11/14: No sort of clinical change overnight. Remains encephalopathic. Can discharge whenever guardianship and social issues mediated. 11/13: Afebrile. Still no meaningful response to any sort of interaction. Remains on trach. PEG tube. Complicated social situation. Afebrile. BP a little up today. Continues to remain encephalopathic off sedation requiring 8 L trach shield O2 with O2 saturations 91%. Tolerating PEG feeds with free water boluses. INR 2.8. Discussed with anabel Guajardo she is reaching out to the rest of the family. 11/11: Afebrile. No meaningful following of commands, opens eyes. Requires 8L trach shield O2 to maintain O2 saturations 90%. No residuals on PEG tube feeds. Discussed with anabel Guajardo bedside she is going to reach out to the rest of the family now the family has been located. 11/10: Afebrile. Continues to be encephalopathic no meaningful eye contact movements not following commands. Requiring 8 L trach shield O2 to maintain saturations 91%. No residuals on tube feeds 45 cc/h. INR 2.8. Throughout heroic efforts by social work estranged family has been found and has a niece who will be visiting sometime potentially later today or tomorrow 11/09: Afebrile. Still encephalopathic not making any meaningful eye contact or movements not following commands. Waiting for guardianship. 8 L trach shield O2. Tolerating tube feeds with no residuals 45 cc/h. INR 2.6 11/08: Afebrile. Opens eyes but no meaningful contact not following commands. Requiring 8 L trach shield O2 mask. 11/07: Not responsive to stimuli, not making eye contact. Afebrile. Seen on 8 L trach collar canula. Hb 9.1 Renal labs stable INR 3.1. 11/06: Patient not meaningfully responding well. On trach shield and BiPAP as needed on trach. PEG feeds with no significant residuals. 11/05: Patient is still unresponsive. Pupils reactive to light and accommodation. No meaningful movements. Actively posturing at bed side. Has peg feeding at 45cc/hr. Trach shield at 8L and BIPAP PRN at 35%. There is an open wound at the site of the peg insertion. Wound care, Dr. Cristobal is consulted. 11/04: Patient is still unresponsive. Pupils reactive to light and accommodation. Actively posturing at bedside. No meaningful movements. Has peg feeding at 45cc/hr. Trach shield at 8L and BIPAP PRN at 35%. 11/03: Patient seen and examined. Discussed with RN and social media strategist. Chart reviewed. Patient is still unresponsive. Actively decorticate posturing at bedside. Eyes rolled upward. No meaningful movements. Has peg feeding at 45cc/hr. The bleeding at the peg insertion site has stopped. 11/02: Patient seen and examined. Chart reviewd. Discussed with RN and social media strategist. Patient is still unresponsive. No meaningful movements. Actively decorticate posturing at bedside. Has peg feeding running at 45cc/hr. Some bleeding at the peg insertion site. 11/01: Patient seen and examined. Discussed with social media strategist and RN. Patient is still unresponsive. No meaningful movements. Peg feeding is running at 45cc/hr. Patient is actively posturing at bed side. Trach shield at 8L and BIPAP PRN at 35%. 10/31: Patient seen and examined. Chart reviewed. Discussed with social media strategist and RN. Patient still unresponsive. Patient actively posturing at bed side. Has peg running at 45cc/hr. Vestibulo-ocular reflex intact. 10/30: Patient seen and examined. Discussed with social media strategist and RN. Chart reviewed. Patient actively posturing at bed side. Has peg running at 45cc/hr. Mr Andrews is a 70-year-old male with a recent prolonged hospitalization for STEMI and respiratory failure for which she was treated with arterial thrombolysis for a right leg popliteal artery aneurysm and also had left heart cath with placement of a stent in the LAD and RCA comes in today after he was found obtunded at his long term facility. Apparently according to the nursing facility patient was in his usual state of health and he was conversational but then became altered. His blood glucose was found to be in the 30s. Glucose tabs and glucagon was given in route and his GCS reported at 6. Upon arrival patient's mental status did not improve and he was eventually intubated for airway protection. Of note EMS was bagging the patient through the nasal access. In the ED, patient was placed on a vent and pulmonology was consulted. Patient was also taken to the CT scanner for sanders scanning. Patient was started to wake up on the vent and sedation was ordered. 09/23: Patient examined at bedside. Intubated. Not on any sedation but unresponsive. Neurology consult in place. 09/24: Patient seen and examined at bedside. Remains intubated he is off sedation but still remains unresponsive. Planning for MRI brain in the morning. Further plan to be determined by MRI. 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 09/25: Afebrile, currently breathing on ventilator with FiO2 50%, PEEP 5. Had CODE BLUE in ICU this morning; received 2 rounds of CPR, epinephrine, and atropine with ROSC. MRI brain negative. Made DNR, and after discussion with Dr. Rubalcava he agrees. 09/26:: Afebrile. Still on vent, with FiO2 45%, PEEP 5. After discussion with Dr. Rubalcava yesterday, patient was made DNR. In the ED is likely a poor candidate for weaning trials may need trach in near future if no significant improvement. 09/27:: Afebrile. On vent with FiO2 40%, PEEP 5. Potassium 2.8 today, will replace. Warfarin has been resumed. Discussed with pharmacy, will resume aspirin and Plavix. May need tracheostomy by the end of the week if no improvement in mental status. 09/28:: Afebrile. On ventilator with FiO2 40%, PEEP 5. Warfarin has been resumed; INR 1.3 today. Some morning labs still pending; hemoglobin yesterday 7.3, will continue to monitor. Continue IV cefepime and supportive care. 09/29: Afebrile. Breathing on vent with FiO2 40%, PEEP 5. INR 1.2 today; pharmacy to help with warfarin dosing. White count within normal range, renal function stable. Spoke with pharmacy about cefepime 1 g every 8 hours dosing; this has been changed to cefepime 2 g every 8 hours. 09/30: Afebrile. Currently breathing on vent with FiO2 40%, PEEP 5. Continue antibiotics, cefepime 2 g every 8 hours. INR 1.4; continue warfarin dosing per pharmacy. Possible tracheostomy at some point. Critical care time 30 minutes reviewing charts, labs, examination, discussion with RN. 10/01: T-max 100.3 F. On ventilator with FiO2 40%, PEEP 5. Continue antibiotics, cefepime 2 g every 8 hours. INR 1.4, still subtherapeutic; continue warfarin dosing per pharmacy. Possible tracheostomy at some point. 10/02: No acute events overnight. Patient saturating 99% on vent settings of 10/450/40/5. Patient will likely need a trach and PEG at some point. We will hold warfarin and start 2 units PRBC transfusion. Patient's chart, labs, images were reviewed and discussed with RN 10/03: No acute events overnight. Patient sat 100% on minimal vent settings. No sedation at this point and patient is opening his eyes spontaneously. Not much response or spontaneous movements. Surgery has been consulted for tracheostomy. Patient will also likely need a PEG tube. 10/04: No acute events overnight. Patient saturating 90% on minimal vent settings. T-max 100.4 overnight. Plan for trach tomorrow with surgery. Patient's chart, labs, images were reviewed and discussed with RN 10/05: No acute events overnight. Patient saturating 99% on minimal vent settings. Plan for tracheostomy today. Consent is provided by authorization by 2 physicians due to patient having no close relatives or DPOA. Will resume heparin and warfarin bridging tomorrow after tracheostomy 10/07: No acute events overnight. Patient seen and examined bedside. On trach vent. Saturating 99%. Pending GI evaluation for possible PEG placement after discussing with cardiology whether to continue with Plavix. Possibly place PEG if patient is only on aspirin and stopping argatroban. 10/08: No acute events overnight. Patient continues to be on trach mechanical vent. Saturating 100%. Pending decision from GI whether to proceed with PEG placement depending on the type of anticoagulation patient will be on. 10/09: No overnight events. On trach with vent support 40% FiO2 PEEP of 5. Currently argatroban and propofol for minimal sedation. When sedation is weaned he has no meaningful movements but has pulled at his tracheostomy site. Unable to hold plavix due to recently placed stents. 10/10: Afebrile today. On trach with vent support 40% FiO2 PEEP of 5. Continue argatroban and changed to Aggrastat in anticipation of surgical consultation for potential laparoscopic PEG placement. INR 1.6. Hb greater than 9 no significant neurologic recovery today. 10/11: Afebrile. On trach with vent support 40% FiO2 PEEP of 5. INR 1.8. Not making meaningful eye contact. Labs otherwise stable. 10/12: Afebrile. Trach with vent support 40% FiO2 PEEP five O2 saturations 92%. INR 1.8, mag 1.8, Hb 8.4. Not following commands. Tentative plans for surgical PEG next week. 10/13: Afebrile. Trach with vent support 40% FiO2 PEEP 5. Eyes open, not tracking or following commands. Holding Plavix. On argatroban. 10/14: Afebrile. Trach with vent support 40% FiO2 PEEP of 5. Will open eyes intermittently not necessarily to voice. Good urine output. Labs stable. 10/15: Afebrile overnight. Trach with vent AC 40% fio2 PEEP 5. Had a very large bowel movement. Still not tracking. Hb 9, INR 1.7, glucose 144. Tentative plan for PEG 10/18/2020 CC time 30 minutes 10/16/20: Patient seen and examined in the ICU. He was resting and still on vent via trach. Has NG running via Dobhoff, feeding at 40cc/hr. AC/10/450/40% plus 5 PEEP. Discussed with RN. Chart reviewed. 10/17/20: Patient was seen and examined in the ICU today. Still on vent via trach at AC/10/450/40 plus 5 PEEP. While examined, patient was at 100% O2 saturation. Has SCDs on for DVT prophylaxis. Stauffer catheter in place. On IV argatroban. R subclavian triple lumen in place. Dobhoff running at 40cc/hr. Discussed with RN. Chart reviewed. 10/18/20: Patient seen and examined in ICU. His eyes are open. On vent via trach with settings that were recently changed to spontaneous respirations with FiO2 of 40 and 5 PEEP. Trach is clean and dry. Currently, oxygen saturation is at 100%. Stauffer to bedside and rectal bag in place. Discussed with RN. Chart reviewed. 10/19/20: Patient was seen and examined in the ICU today. His eyes were open and he was resting. On BiPAP via trach AVAPS/10/450/40 plus 5 PEEP. Trach is clean and dry. Has SCDs for DVT prophylaxis. Patient has rectal bag, Stauffer to bedside, and NG tube in place. Discussed with RN. Chart reviewed. 10/20/20 No acute events overnight. Patient seen and examined bedside. Transferred from the ICU. Continues to be nonverbal and not following much commands. Opens eyes to voice. Currently on BiPAP via trach on AVAPS setting 10/450/40 PEEP of 5. Trach site is clear. No signs of infections. Patient's chart, labs, images were reviewed and discussed with RN 10/21/2020 No acute events overnight. Patient seen and examined bedside. Afebrile. Continues to be nonverbal but opens eyes to voice. Currently on BiPAP. Patient's chart, labs, images were reviewed and discussed with RN. 10/22/2020 No acute events overnight. Patient seen examined bedside. Continue with argatroban until warfarin goal INR of 4 and maintenance goal of 2-3. Please see earth science technical officer note. Pending appointing a legal guardian. Patient's chart, labs, images were reviewed and discussed with RN 10/23/2020 laparoscopic gastrostomy tube placement (specifically 24 F) Oct discharge planning in place once court appointed DPOA available Acute anemia Acute metabolic, infectious encephalopathy Acute respiratory failure Healthcare associated pneumonia Acute hypoglycemia Hypokalemia Elevated troponins Severe protein malnutrition Morbid obesity AAA, 4 cm, infrarenal History of diabetes mellitus type 2 History of dyslipidemia history of hypertension Patient seen examined bedside. argatroban until warfarin goal INR of 4 and maintenance goal of 2-3. Pending appointing a legal guardian. Patient's chart, labs, images were reviewed and discussed with RN Ronald Enteric tube with metallic tip in the left upper quadrant likely in the stomach. 10/24/2020 doing well on trach shield on a 24-hour basis./ blood gases shows no worsening hypercapnia while on trach shield. No apneic breathing reported. laparoscopic gastrostomy tube placement (specifically 24 F) Oct discharge planning in place once court appointed DPOA available Acute anemia Acute metabolic, infectious encephalopathy Acute respiratory failure Healthcare associated pneumonia Acute hypoglycemia Hypokalemia Elevated troponins Severe protein malnutrition Morbid obesity AAA, 4 cm, infrarenal History of diabetes mellitus type 2 History of dyslipidemia history of hypertension Patient seen examined bedside. argatroban until warfarin goal INR of 4 and maintenance goal of 2-3. Pending appointing a legal guardian. Patient's chart, labs, images were reviewed and discussed with KARY Cardenas Enteric tube with metallic tip in the left upper quadrant likely in the stomach. Home on plavix and warfarin D/C INITIAL PLAN TO [facility] PENDING/ discharge planning in place once court appointed DPOA available D/W RN 10/25/2020 doing well on trach shield on a 24-hour basis./ blood gases shows no worsening hypercapnia while on trach shield. No apneic breathing reported. laparoscopic gastrostomy tube placement (specifically 24 F) Oct discharge planning in place once court appointed DPOA available Acute anemia Acute metabolic, infectious encephalopathy Acute respiratory failure Healthcare associated pneumonia Acute hypoglycemia Hypokalemia Elevated troponins Severe protein malnutrition Morbid obesity AAA, 4 cm, infrarenal History of diabetes mellitus type 2 History of dyslipidemia history of hypertension Patient seen examined bedside. argatroban until warfarin goal INR of 4 and maintenance goal of 2-3. Pending appointing a legal guardian. Patient's chart, labs, images were reviewed and discussed with KARY Cardenas Enteric tube with metallic tip in the left upper quadrant likely in the stomach. Home on plavix and warfarin D/C INITIAL PLAN TO [facility]END[facility]/ discharge planning in place once court appointed DPOA available D/W RN 10/26/2020 HGB 9.4 doing well on trach shield on a 24-hour basis./ blood gases shows no worsening hypercapnia while on trach shield. No apneic breathing reported. laparoscopic gastrostomy tube placement (specifically 24 F) Oct discharge planning in place once court appointed DPOA available Acute anemia Acute metabolic, infectious encephalopathy Acute respiratory failure Healthcare associated pneumonia Acute hypoglycemia Hypokalemia Elevated troponins Severe protein malnutrition Morbid obesity AAA, 4 cm, infrarenal History of diabetes mellitus type 2 History of dyslipidemia history of hypertension Patient seen examined bedside. argatroban until warfarin goal INR of 4 and maintenance goal of 2-3. Pending appointing a legal guardian. Patient's chart, labs, images were reviewed and discussed with KARY Cardenas Enteric tube with metallic tip in the left upper quadrant likely in the stomach. Home on plavix and warfarin D/C INITIAL PLAN TO [facility] PENDING/ discharge planning in place once court appointed DPOA available D/W RN 10/27/2020 HGB 9.4 doing well on trach shield on a 24-hour basis./ blood gases shows no worsening hypercapnia while on trach shield. No apneic breathing reported. laparoscopic gastrostomy tube placement (specifically 24 F) Oct discharge planning in place once court appointed DPOA available Acute anemia Acute metabolic, infectious encephalopathy Acute respiratory failure Healthcare associated pneumonia Acute hypoglycemia Hypokalemia Elevated troponins Severe protein malnutrition Morbid obesity AAA, 4 cm, infrarenal History of diabetes mellitus type 2 History of dyslipidemia history of hypertension Patient seen examined bedside. argatroban until warfarin goal INR of 4 and maintenance goal of 2-3. Pending appointing a legal guardian. Patient's chart, labs, images were reviewed and discussed with KARY Cardenas Enteric tube with metallic tip in the left upper quadrant likely in the stomach. Home on plavix and warfarin D/C INITIAL PLAN TO [facility] PENDING/ discharge planning in place once court appointed DPOA available D/W RN 10/28/2020 HGB 9.4 doing well on trach shield on a 24-hour basis./ blood gases shows no worsening hypercapnia while on trach shield. No apneic breathing reported. laparoscopic gastrostomy tube placement (specifically 24 F) Oct discharge planning in place once court appointed DPOA available Acute anemia Acute metabolic, infectious encephalopathy Acute respiratory failure Healthcare associated pneumonia Acute hypoglycemia Hypokalemia Elevated troponins Severe protein malnutrition Morbid obesity AAA, 4 cm, infrarenal History of diabetes mellitus type 2 History of dyslipidemia history of hypertension Patient seen examined bedside. argatroban until warfarin goal INR of 4 and maintenance goal of 2-3. Pending appointing a legal guardian. Patient's chart, labs, images were reviewed and discussed with KARY Cardenas Enteric tube with metallic tip in the left upper quadrant likely in the stomach. Home on plavix and warfarin D/C INITIAL PLAN TO [facility] PENDING/ discharge planning in place once court appointed DPOA available D/W RN Vitals/I&O Vitals/I&O: Vital Signs Date Time Temp Pulse Resp B/P (MAP) Pulse Ox O2 Delivery O2 Flow Rate FiO2 11/24/20 07:00 99.2 121 16 130/82 (98) 100 Tracheal Collar 8.0 99.2 I & O 11/23/20 11/23/20 11/24/20 15:00 23:00 07:00 Intake Total 120 ml 120 ml Output Total 450 ml 350 ml 350 ml Balance -330 ml -230 ml -350 ml Physical Exam Physical Exam: Neuro: actively posturing. Pulpils dialated but reactive to light and accomendation. Flaccidity in the lower extremity bilaterally. Equivocal Babinski. General: Other (actively posturing. No meaningful movements. ) Heart: Regular rate (SR), Other (distant heart sounds) Lungs: Other (Tracheostomy with trach shield. Deminished breath sounds.) Abdomen: Soft, Other (g tube in place) Extremities: No cyanosis, Other (2-3+ bilateral LE pitting edema) Skin: No rashes, No significant lesion Labs Labs: Laboratory Tests Test 11/23/20 11:48 11/23/20 18:11 11/23/20 23:20 11/24/20 06:04 Glucose (Fingerstick) 184 mg/dL (70-99) 170 mg/dL (70-99) 161 mg/dL (70-99) 174 mg/dL (70-99) Test 11/24/20 06:10 Prothrombin Time 26.4 SEC (11.7-14.0) Prothromb Time International Ratio 2.5 (0.8-1.1) Assessment and Plan Assessmemt and Plan Problems Medical Problems: (1) NSTEMI (non-ST elevated myocardial infarction) Status: Acute (2) Obtundation Status: Acute (3) Respiratory arrest Status: Acute Comment Review of Relevant I have reviewed the following items denise (where applicable) has been applied. Justifications for Admission Other Justification Hypoglycemia and altered mental status. NAIDA LÓPEZ MD Nov 24, 2020 09:13
[2020-11-24] MEDS: ASPIRIN CHEWABLE 81 MG TABLET. PO SCH (09:29)
[2020-11-24] MEDS: AMIODARONE HCL 200 MG TABLET. PO SCH (09:30)
[2020-11-24] MEDS: POTASSIUM BICARB 20 MEQ EFFERVESCENT TABLET. PEG SCH (09:30)
[2020-11-24] MEDS: LANSOPRAZOLE 30 MG TAB.RAP.DR FT SCH (09:30)
[2020-11-24] MEDS: FUROSEMIDE 40 MG/4 ML VIAL. IVP SCH (09:31)
[2020-11-24] MEDS: FLUCONAZOLE 100 MG TABLET. PEG SCH (09:31)
[2020-11-24] MEDS: METOPROLOL TART IMMED RELEASE 25 MG TABLET. PO SCH ×2 (09:31→21:00)
[2020-11-24] MEDS: DOCUSATE 100 MG/10 ML SOLUTION. PO SCH (09:31)
[2020-11-24 11:00] VITALS: BP 75/46
[2020-11-24] MEDS ORDERED: IV NORMAL SALINE 1000ML BAG 1,000 ML IV ONE (11:00)
[2020-11-24] MEDS ORDERED: IV NORMAL SALINE 500ML BAG 500 ML IV ONE ×2 (11:15→15:15)
--- NOTE | 2020-11-24 11:59 | NUR ---
SS following up with discharge planning. SS reviewed pt chart and discussed with pt RN. Pt is currently on trach shield at 35%. G-Tube in place. Pt on IV Lasix and PO Clindamycin and PO Diflucan through PEG. COVID19 negative. Pt in need of DPOA or Guardianship for placement at LTACH or LTC facility. [employer] Clerk, Amarilis Matthews, assigned to case and is in need of proposed guardian prior to proceeding. Pt's niece, Casandra Andrews, , and her spouse Han Jovel are requesting to be proposed Guardians at this time. Signed paperwork was faxed to banking attorney. SS currently awaiting further instructions at this time. Pt accepted at [facility], ; fax [phone], pending insurance authorization. SS will continue to follow for discharge planning.
[2020-11-24] MEDS: CLOPIDOGREL BISULFATE 75 MG TABLET PO SCH (12:06)
[2020-11-24 15:00] VITALS: BP 77/46
[2020-11-24] MEDS ORDERED: WARFARIN 2.5 MG TABLET. PO SCH (16:00)
[2020-11-24] MEDS ORDERED: IV NORMAL SALINE 1000ML BAG 1,000 ML IV PRN (16:30)
--- NOTE | 2020-11-24 17:05 | NUR ---
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 Vitamin K given: N Drug Interaction Changes: Same Interacting Drug Ongoing Drug Interactions: amiodarone, aspirin, plavix A:INR of 2.5 is within desired range. Target range for this patient is: 2 -3 P: Warfarin dose: 2.5 mg Today at 1600 Bridge Therapy: None Therapeutic Next INR due IN AM Pharmacy anticoagulation service will continue to follow. BETI SHEA RPH, 11/24/20 170 Pharmacy TPN Dosing Note S: DEMETRICE HOWE is a 70 year old M Currently receiving TPN started B:Pertinent PMH: Height: 5 feet, 9 inches Weight: 94.0 kg Current diet: LABS: Sodium: Potassium: Chloride: Calcium: Corrected Calcium: Magnesium: CO2: SCr: Glucose: Albumin: AST: ALT: TPN FORMULA: TPN TYPE: AMINO ACIDS: gm DEXTROSE: gm LIPIDS: gm SODIUM CHLORIDE: mEq SODIUM ACETATE: mEq SODIUM PHOSPHATE: mmol POTASSIUM CHLORIDE: mEq POTASSIUM ACETATE: mEq POTASSIUM PHOSPHATE: mmol MAGNESIUM: mEq CALCIUM: mEq INSULIN: units MULTIPLE VITAMIN: TRACE ELEMENTS: ml(s) TPN PLAN: R: [g RX.ACTION] TPN [] Will monitor electrolytes, glucose, and tolerance to TPN. BETI SHEA RPH, 11/24/20 [id number]
[2020-11-24 19:45] VITALS: BP 105/55
[2020-11-24] MEDS: ATORVASTATIN CALCIUM 40 MG TABLET. PO SCH (21:48)
[2020-11-24 23:41] VITALS: BP 106/63
[2020-11-25] VITALS (7 sets, daily range): BP systolic 92–129; BP diastolic 50–76
[2020-11-25] MEDS: INSULIN LISPRO 300 UNITS/3 ML VIAL. SQ SCH ×4 (06:00→18:14)
[2020-11-25] MEDS: CLINDAMYCIN HCL 150 MG CAPSULE. PEG SCH ×3 (06:41→18:13)
[2020-11-25 07:14] LABS: PROTHROMBIN TIME PATIENT 21.8 SEC (11.7-14.0)
--- NOTE | 2020-11-25 09:18 | PDOC ---
[employer] PROGRESS NOTE Date of Service DOS: DATE: 11/25/20 TIME: 09:15 Chief Complaint Chief Complaint Acute anemia Acute metabolic, infectious encephalopathy Acute hypoxic respiratory failure Healthcare associated pneumonia Acute hypoglycemia Hypokalemia Elevated troponins Severe protein malnutrition Morbid obesity AAA, 4 cm, infrarenal History of diabetes mellitus type 2 History of dyslipidemia history of hypertension History of recent STEMI History of CAD History of peripheral artery disease History of JEANNE History of CVA History of paroxysmal atrial fibrillation Ischemic cardiomyopathy History of Present Illness History of Present Illness 11/25: Afebrile, on 8 L trach collar. Still with some relative hypotension, BP 92/50 mmHg. As needed normal saline boluses. He will need guardianship for placement to LTAC, and patient's niece requesting to be proposed guardians at this time. Signed paperwork was faxed to the energy attorney managing this case. Patient has been accepted at [facility]. Guardianship for placement at LTACH or LTC facility. Trains Service Conductor, Amarilis Matthews, assigned to case and is in need of proposed guardian prior to proceeding. Pt's niece, Casandra Andrews, , and her spouse Han Jovel are requesting to be proposed Guardians at this time. Signed paperwork was faxed to energy attorney. SS currently awaiting further instructions at this time. Pt accepted at [facility], 11/24: Afebrile, 8 L on trach collar. Dressings to right elbow change, appear to have obtained hemostasis. Accepted at [facility], pending insurance authorization. 11/23: Afebrile, on trach collar is a clear. Niece present at bedside and updated her on patient's clinical course and likely poor prognosis of recovery. Some bleeding from right olecranon process secondary to irritated scab. Given the fact that patient is on blood thinners, if unable to control with compression may need to hold warfarin temporarily until hemostasis can be obtained. Accepted at [facility], pending insurance authorization. 11/22: No acute change overnight. On trach collar 8 L. Guardianship papers we re signed yesterday by niece. Patient has been accepted to [facility], pending insurance authorization. 11/21: Afebrile. Tolerated trach shield with BiPAP overnight. Guardianship papers to be signed today by patient's niece. Transfer to LTAC at [facility] in the near future pending insurance authorization. 11/20: Afebrile, on trach collar 8 L. Patient's niece is applying for guardianship prior to transfer to [facility] at [facility]. She has decided to make patient full code. Anticipate transfer to LTAC in near future. RN discussed with patient's niece, she would like his CODE STATUS to be full code. I agree with Dr. Ennis, no prognosis for meaningful recovery. Discussed with niece (Casandra Andrews) by phone about poor prognosis and goals of care; she reiterates that she would like him to still be full code at this time. 11/19 Patient evaluated and examined at bedside. He was on the trach collar at 8. Informed patient's niece today that really only thing waiting on now is guardianship to be approved. Hopeful for that to happen in the coming week. Otherwise continue to monitor respiratory status. No major neurologic changes. Plan of care discussed with bedside RN. 11/18 On trach collar when being seen. Still with minimal neurologic status. Once social issues sorted out well discharge. 11/17 Patient evaluated and examined at bedside. He was tolerating being on the trach collar when seen. No change in neurologic status really. I have written a letter to send to the local [facility] with my support for his need of a guardian. 11/16 Patient evaluated and examined at bedside. Patient's niece at bedside discussed case at length with her and ongoing plan. He does present as movement in his upper extremities today. He did open his eyes to his niece's voice earlier. Continue current plan of care. 11/15 Patient evaluated and examined at bedside. Remains minimally responsive. He is discharged ready. Just waiting for social issues to be sorted out. Possible discharge 11/14: No sort of clinical change overnight. Remains encephalopathic. Can discharge whenever guardianship and social issues mediated. 11/13: Afebrile. Still no meaningful response to any sort of interaction. Remains on trach. PEG tube. Complicated social situation. Afebrile. BP a little up today. Continues to remain encephalopathic off sedation requiring 8 L trach shield O2 with O2 saturations 91%. Tolerating PEG feeds with free water boluses. INR 2.8. Discussed with niece Casandra she is reaching out to the rest of the family. 10: Afebrile. No meaningful following of commands, opens eyes. Requires 8L trach shield O2 to maintain O2 saturations 90%. No residuals on PEG tube feeds. Discussed with niece Casandra bedside she is going to reach out to the rest of the family now the family has been located. 11/10: Afebrile. Continues to be encephalopathic no meaningful eye contact movements not following commands. Requiring 8 L trach shield O2 to maintain saturations 91%. No residuals on tube feeds 45 cc/h. INR 2.8. Throughout heroic efforts by social work estranged family has been found and has a niece who will be visiting sometime potentially later today or tomorrow 11/09: Afebrile. Still encephalopathic not making any meaningful eye contact or movements not following commands. Waiting for guardianship. 8 L trach shield O2. Tolerating tube feeds with no residuals 45 cc/h. INR 2.6 11/08: Afebrile. Opens eyes but no meaningful contact not following commands. Requiring 8 L trach shield O2 mask. 11/07: Not responsive to stimuli, not making eye contact. Afebrile. Seen on 8 L trach collar canula. Hb 9.1 Renal labs stable INR 3.1. 11/06: Patient not meaningfully responding well. On trach shield and BiPAP as needed on trach. PEG feeds with no significant residuals. 11/05: Patient is still unresponsive. Pupils reactive to light and accommodation. No meaningful movements. Actively posturing at bed side. Has peg feeding at 45cc/hr. Trach shield at 8L and BIPAP PRN at 35%. There is an open wound at the site of the peg insertion. Wound care, Dr. Cristobal is consulted. 11/04: Patient is still unresponsive. Pupils reactive to light and accommodation. Actively posturing at bedside. No meaningful movements. Has peg feeding at 45cc/hr. Trach shield at 8L and BIPAP PRN at 35%. 11/03: Patient seen and examined. Discussed with RN and social studies teacher. Chart reviewed. Patient is still unresponsive. Actively decorticate posturing at bedside. Eyes rolled upward. No meaningful movements. Has peg feeding at 45cc/hr. The bleeding at the peg insertion site has stopped. 11/02: Patient seen and examined. Chart reviewd. Discussed with RN and social studies teacher. Patient is still unresponsive. No meaningful movements. Actively decorticate posturing at bedside. Has peg feeding running at 45cc/hr. Some bleeding at the peg insertion site. 11/01: Patient seen and examined. Discussed with social studies teacher and RN. Patient is still unresponsive. No meaningful movements. Peg feeding is running at 45cc/hr. Patient is actively posturing at bed side. Trach shield at 8L and BIPAP PRN at 35%. 10/31: Patient seen and examined. Chart reviewed. Discussed with social studies teacher and RN. Patient still unresponsive. Patient actively posturing at bed side. Has peg running at 45cc/hr. Vestibulo-ocular reflex intact. 10/30: Patient seen and examined. Discussed with social studies teacher and RN. Chart reviewed. Patient actively posturing at bed side. Has peg running at 45cc/hr. Mr Andrews is a 70-year-old male with a recent prolonged hospitalization for STEMI and respiratory failure for which she was treated with arterial thrombolysis for a right leg popliteal artery aneurysm and also had left heart cath with placement of a stent in the LAD and RCA comes in today after he was found obtunded at his half-way facility. Apparently according to the nursing facility patient was in his usual state of health and he was conversati onal but then became altered. His blood glucose was found to be in the 30s. Glucose tabs and glucagon was given in route and his GCS reported at 6. Upon arrival patient's mental status did not improve and he was eventually intubated for airway protection. Of note EMS was bagging the patient through the nasal access. In the ED, patient was placed on a vent and pulmonology was consulted. Patient was also taken to the CT scanner for sanders scanning. Patient was started to wake up on the vent and sedation was ordered. 09/23: Patient examined at bedside. Intubated. Not on any sedation but unresponsive. Neurology consult in place. 09/24: Patient seen and examined at bedside. Remains intubated he is off sedation but still remains unresponsive. Planning for MRI brain in the morning. Further plan to be determined by MRI. 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 09/25: Afebrile, currently breathing on ventilator with FiO2 50%, PEEP 5. Had CODE BLUE in ICU this morning; received 2 rounds of CPR, epinephrine, and atropine with ROSC. MRI brain negative. Made DNR, and after discussion with Dr. Rubalcava he agrees. 09/26:: Afebrile. Still on vent, with FiO2 45%, PEEP 5. After discussion with Dr. Rubalcava yesterday, patient was made DNR. In the ED is likely a poor candidate for weaning trials may need trach in near future if no significant improvement. 09/27:: Afebrile. On vent with FiO2 40%, PEEP 5. Potassium 2.8 today, will replace. Warfarin has been resumed. Discussed with pharmacy, will resume aspirin and Plavix. May need tracheostomy by the end of the week if no improvement in mental status. 09/28:: Afebrile. On ventilator with FiO2 40%, PEEP 5. Warfarin has been resumed; INR 1.3 today. Some morning labs still pending; hemoglobin yesterday 7.3, will continue to monitor. Continue IV cefepime and supportive care. 09/29: Afebrile. Breathing on vent with FiO2 40%, PEEP 5. INR 1.2 today; pharmacy to help with warfarin dosing. White count within normal range, renal function stable. Spoke with pharmacy about cefepime 1 g every 8 hours dosing; this has been changed to cefepime 2 g every 8 hours. 09/30: Afebrile. Currently breathing on vent with FiO2 40%, PEEP 5. Continue antibiotics, cefepime 2 g every 8 hours. INR 1.4; continue warfarin dosing per pharmacy. Possible tracheostomy at some point. Critical care time 30 minutes reviewing charts, labs, examination, discussion with RN. 10/01: T-max 100.3 F. On ventilator with FiO2 40%, PEEP 5. Continue antibiotics, cefepime 2 g every 8 hours. INR 1.4, still subtherapeutic; continue warfarin dosing per pharmacy. Possible tracheostomy at some point. 10/02: No acute events overnight. Patient saturating 99% on vent settings of 10/450/40/5. Patient will likely need a trach and PEG at some point. We will hold warfarin and start 2 units PRBC transfusion. Patient's chart, labs, images were reviewed and discussed with RN 10/03: No acute events overnight. Patient sat 100% on minimal vent settings. No sedation at this point and patient is opening his eyes spontaneously. Not much response or spontaneous movements. Surgery has been consulted for tracheostomy. Patient will also likely need a PEG tube. 10/04: No acute events overnight. Patient saturating 90% on minimal vent settings. T-max 100.4 overnight. Plan for trach tomorrow with surgery. Patient's chart, labs, images were reviewed and discussed with RN 10/05: No acute events overnight. Patient saturating 99% on minimal vent settings. Plan for tracheostomy today. Consent is provided by authorization by 2 physicians due to patient having no close relatives or DPOA. Will resume heparin and warfarin bridging tomorrow after tracheostomy 10/07: No acute events overnight. Patient seen and examined bedside. On trach vent. Saturating 99%. Pending GI evaluation for possible PEG placement after discussing with cardiology whether to continue with Plavix. Possibly place PEG if patient is only on aspirin and stopping argatroban. 10/08: No acute events overnight. Patient continues to be on trach mechanical vent. Saturating 100%. Pending decision from GI whether to proceed with PEG placement depending on the type of anticoagulation patient will be on. 10/09: No overnight events. On trach with vent support 40% FiO2 PEEP of 5. Currently argatroban and propofol for minimal sedation. When sedation is weaned he has no meaningful movements but has pulled at his tracheostomy site. Unable to hold plavix due to recently placed stents. 10/10: Afebrile today. On trach with vent support 40% FiO2 PEEP of 5. Continue argatroban and changed to Aggrastat in anticipation of surgical consultation for potential laparoscopic PEG placement. INR 1.6. Hb greater than 9 no significant neurologic recovery today. 10/11: Afebrile. On trach with vent support 40% FiO2 PEEP of 5. INR 1.8. Not making meaningful eye contact. Labs otherwise stable. 10/12: Afebrile. Trach with vent support 40% FiO2 PEEP five O2 saturations 92%. INR 1.8, mag 1.8, Hb 8.4. Not following commands. Tentative plans for surgical PEG next week. 10/13: Afebrile. Trach with vent support 40% FiO2 PEEP 5. Eyes open, not tracking or following commands. Holding Plavix. On argatroban. 10/14: Afebrile. Trach with vent support 40% FiO2 PEEP of 5. Will open eyes intermittently not necessarily to voice. Good urine output. Labs stable. 10/15: Afebrile overnight. Trach with vent AC 40% fio2 PEEP 5. Had a very large bowel movement. Still not tracking. Hb 9, INR 1.7, glucose 144. Tentative plan for PEG 10/18/2020 CC time 30 minutes 10/16/20: Patient seen and examined in the ICU. He was resting and still on vent via trach. Has NG running via Dobhoff, feeding at 40cc/hr. AC/10/450/40% plus 5 PEEP. Discussed with RN. Chart reviewed. 10/17/20: Patient was seen and examined in the ICU today. Still on vent via trach at AC/10/450/40 plus 5 PEEP. While examined, patient was at 100% O2 saturation. Has SCDs on for DVT prophylaxis. Stauffer catheter in place. On IV argatroban. R subclavian triple lumen in place. Dobhoff running at 40cc/hr. Discussed with RN. Chart reviewed. 10/18/20: Patient seen and examined in ICU. His eyes are open. On vent via trach with settings that were recently changed to spontaneous respirations with FiO2 of 40 and 5 PEEP. Trach is clean and dry. Currently, oxygen saturation is at 100%. Stauffer to bedside and rectal bag in place. Discussed with RN. Chart reviewed. 10/19/20: Patient was seen and examined in the ICU today. His eyes were open and he was resting. On BiPAP via trach AVAPS/10/450/40 plus 5 PEEP. Trach is clean and dry. Has SCDs for DVT prophylaxis. Patient has rectal bag, Stauffer to bedside, and NG tube in place. Discussed with RN. Chart reviewed. 10/20/20 No acute events overnight. Patient seen and examined bedside. Transferred from the ICU. Continues to be nonverbal and not following much commands. Opens eyes to voice. Currently on BiPAP via trach on AVAPS setting 10/450/40 PEEP of 5. Trach site is clear. No signs of infections. Patient's chart, labs, images were reviewed and discussed with RN 10/21/2020 No acute events overnight. Patient seen and examined bedside. Afebrile. Continues to be nonverbal but opens eyes to voice. Currently on BiPAP. Jenise ent's chart, labs, images were reviewed and discussed with RN. 10/22/2020 No acute events overnight. Patient seen examined bedside. Continue with argatroban until warfarin goal INR of 4 and maintenance goal of 2-3. Please see rpg developer note. Pending appointing a legal guardian. Patient's chart, labs, images were reviewed and discussed with RN 10/23/2020 laparoscopic gastrostomy tube placement (specifically 24 F) Oct discharge planning in place once court appointed DPOA available Acute anemia Acute metabolic, infectious encephalopathy Acute respiratory failure Healthcare associated pneumonia Acute hypoglycemia Hypokalemia Elevated troponins Severe protein malnutrition Morbid obesity AAA, 4 cm, infrarenal History of diabetes mellitus type 2 History of dyslipidemia history of hypertension Patient seen examined bedside. argatroban until warfarin goal INR of 4 and maintenance goal of 2-3. Pending appointing a legal guardian. Patient's chart, labs, images were reviewed and discussed with KARY Cardenas Enteric tube with metallic tip in the left upper quadrant likely in the stomach. 10/24/2020 doing well on trach shield on a 24-hour basis./ blood gases shows no worsening hypercapnia while on trach shield. No apneic breathing reported. laparoscopic gastrostomy tube placement (specifically 24 F) Oct discharge planning in place once court appointed DPOA available Acute anemia Acute metabolic, infectious encephalopathy Acute respiratory failure Healthcare associated pneumonia Acute hypoglycemia Hypokalemia Elevated troponins Severe protein malnutrition Morbid obesity AAA, 4 cm, infrarenal History of diabetes mellitus type 2 History of dyslipidemia history of hypertension Patient seen examined bedside. argatroban until warfarin goal INR of 4 and maintenance goal of 2-3. Pending appointing a legal guardian. Patient's chart, labs, images were reviewed and discussed with KARY Cardenas Enteric tube with metallic tip in the left upper quadrant likely in the stomach. Home on plavix and warfarin D/C INITIAL PLAN TO [facility] PENDING/ discharge planning in place once court appointed DPOA available D/W RN 10/25/2020 doing well on trach shield on a 24-hour basis./ blood gases shows no worsening hypercapnia while on trach shield. No apneic breathing reported. laparoscopic gastrostomy tube placement (specifically 24 F) Oct discharge planning in place once court appointed DPOA available Acute anemia Acute metabolic, infectious encephalopathy Acute respiratory failure Healthcare associated pneumonia Acute hypoglycemia Hypokalemia Elevated troponins Severe protein malnutrition Morbid obesity AAA, 4 cm, infrarenal History of diabetes mellitus type 2 History of dyslipidemia history of hypertension Patient seen examined bedside. argatroban until warfarin goal INR of 4 and maintenance goal of 2-3. Pending appointing a legal guardian. Patient's chart, labs, images were reviewed and discussed with KARY Cardenas Enteric tube with metallic tip in the left upper quadrant likely in the stomach. Home on plavix and warfarin D/C INITIAL PLAN TO [facility] PENDING/ discharge planning in place once court appointed DPOA available D/W RN 10/26/2020 HGB 9.4 doing well on trach shield on a 24-hour basis./ blood gases shows no worsening hypercapnia while on trach shield. No apneic breathing reported. laparoscopic gastrostomy tube placement (specifically 24 F) Oct discharge planning in place once court appointed DPOA available Acute anemia Acute metabolic, infectious encephalopathy Acute respiratory failure Healthcare associated pneumonia Acute hypoglycemia Hypokalemia Elevated troponins Severe protein malnutrition Morbid obesity AAA, 4 cm, infrarenal History of diabetes mellitus type 2 History of dyslipidemia history of hypertension Patient seen examined bedside. argatroban until warfarin goal INR of 4 and maintenance goal of 2-3. Pending appointing a legal guardian. Patient's chart, labs, images were reviewed and discussed with KARY Cardenas Enteric tube with metallic tip in the left upper quadrant likely in the stomach. Home on plavix and warfarin D/C INITIAL PLAN TO [facility] PENDING/ discharge planning in place once court appointed DPOA available D/W RN 10/27/2020 HGB 9.4 doing well on trach shield on a 24-hour basis./ blood gases shows no worsening hypercapnia while on trach shield. No apneic breathing reported. laparoscopic gastrostomy tube placement (specifically 24 F) Oct discharge planning in place once court appointed DPOA available Acute anemia Acute metabolic, infectious encephalopathy Acute respiratory failure Healthcare associated pneumonia Acute hypoglycemia Hypokalemia Elevated troponins Severe protein malnutrition Morbid obesity AAA, 4 cm, infrarenal History of diabetes mellitus type 2 History of dyslipidemia history of hypertension Patient seen examined bedside. argatroban until warfarin goal INR of 4 and maintenance goal of 2-3. Pending appointing a legal guardian. Patient's chart, labs, images were reviewed and discussed with KARY Cardenas Enteric tube with metallic tip in the left upper quadrant likely in the stomach. Home on plavix and warfarin D/C INITIAL PLAN TO [facility] PENDING/ discharge planning in place once court appointed DPOA available D/W RN 10/28/2020 HGB 9.4 doing well on trach shield on a 24-hour basis./ blood gases shows no worsening hypercapnia while on trach shield. No apneic breathing reported. laparoscopic gastrostomy tube placement (specifically 24 F) Oct discharge planning in place once court appointed DPOA available Acute anemia Acute metabolic, infectious encephalopathy Acute respiratory failure Healthcare associated pneumonia Acute hypoglycemia Hypokalemia Elevated troponins Severe protein malnutrition Morbid obesity AAA, 4 cm, infrarenal History of diabetes mellitus type 2 History of dyslipidemia history of hypertension Patient seen examined bedside. argatroban until warfarin goal INR of 4 and maintenance goal of 2-3. Pending appointing a legal guardian. Patient's chart, labs, images were reviewed and discussed with KARY Cardenas Enteric tube with metallic tip in the left upper quadrant likely in the stomach. Home on plavix and warfarin D/C INITIAL PLAN TO [facility] PENDING/ discharge planning in place once court appointed DPOA available D/W RN Vitals/I&O Vitals/I&O: Vital Signs Date Time Temp Pulse Resp B/P (MAP) Pulse Ox O2 Delivery O2 Flow Rate FiO2 11/25/20 08:03 100 Tracheal Collar 8.0 11/25/20 07:00 98.5 80 18 92/50 (64) 98.5 I & O 11/24/20 11/24/20 11/25/20 15:00 23:00 07:00 Intake Total 120 ml 100 ml 0 ml Output Total 700 ml 550 ml Balance 120 ml -600 ml -550 ml Physical Exam Physical Exam: Neuro: actively posturing. Pulpils dialated but reactive to light and accomendation. Flaccidity in the lower extremity bilaterally. Equivocal Babinski. General: Other (actively posturing. No meaningful movements. ) Heart: Regular rate (SR), Other (distant heart sounds) Lungs: Other (Tracheostomy with trach shield. Deminished breath sounds.) Abdomen: Soft, Other (g tube in place) Extremities: No cyanosis, Other (2-3+ bilateral LE pitting edema) Skin: No rashes, No significant lesion Labs Labs: Laboratory Tests Test 11/24/20 11:52 11/24/20 18:07 11/25/20 00:33 11/25/20 06:04 Glucose (Fingerstick) 170 mg/dL (70-99) 166 mg/dL (70-99) 111 mg/dL (70-99) 130 mg/dL (70-99) Test 11/25/20 06:25 Prothrombin Time 21.8 SEC (11.7-14.0) Prothromb Time International Ratio 1.9 (0.8-1.1) Assessment and Plan Assessmemt and Plan Problems Medical Problems: (1) NSTEMI (non-ST elevated myocardial infarction) Status: Acute (2) Obtundation Status: Acute (3) Respiratory arrest Status: Acute Comment Review of Relevant I have reviewed the following items denise (where applicable) has been applied. Medications: Current Medications Medications (Trade) Dose Ordered Sig/Dru Route PRN Reason Start Time Stop Time Status Last Admin Dose Admin Sodium Chloride 500 ml @ 500 mls/hr 1X ONCE IV 11/24/20 11:15 11/24/20 12:14 DC 11/24/20 11:05 Warfarin Sodium (Coumadin) 2.5 mg DAILY16 PO 11/24/20 16:00 11/24/20 18:22 Sodium Chloride 500 ml @ 500 mls/hr 1X ONCE IV 11/24/20 15:15 11/24/20 16:14 DC 11/24/20 15:17 Justifications for Admission Other Justification Hypoglycemia and altered mental status. NAIDA LÓPEZ MD Nov 25, 2020 09:18
[2020-11-25] MEDS: METOPROLOL TART IMMED RELEASE 25 MG TABLET. PO SCH ×2 (10:12→21:16)
[2020-11-25] MEDS: POTASSIUM BICARB 20 MEQ EFFERVESCENT TABLET. PEG SCH (10:13)
[2020-11-25] MEDS: FLUCONAZOLE 100 MG TABLET. PEG SCH (10:13)
[2020-11-25] MEDS: LANSOPRAZOLE 30 MG TAB.RAP.DR FT SCH (10:13)
[2020-11-25] MEDS: CLOPIDOGREL BISULFATE 75 MG TABLET PO SCH (10:13)
[2020-11-25] MEDS: ASPIRIN CHEWABLE 81 MG TABLET. PO SCH (10:13)
[2020-11-25] MEDS: DOCUSATE 100 MG/10 ML SOLUTION. PO SCH (10:14)
[2020-11-25] MEDS: FUROSEMIDE 40 MG/4 ML VIAL. IVP SCH (12:45)
--- NOTE | 2020-11-25 15:36 | NUR ---
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 Vitamin K given: N Drug Interaction Changes: Same Interacting Drug Ongoing Drug Interactions: amiodarone, aspirin, plavix A:INR of 1.9 is below desired range. Target range for this patient is: 2 -3 P: Warfarin dose: 4 mg Today at 1600 Bridge Therapy: None Therapeutic Next INR due IN AM Pharmacy anticoagulation service will continue to follow. BANDAR MAXWELL, [facility], 11/25/20 1265
[2020-11-25] MEDS: WARFARIN 4 MG TABLET. PO SCH (15:44)
[2020-11-25] MEDS: AMIODARONE HCL 200 MG TABLET. PO SCH (15:45)
[2020-11-25] MEDS: ATORVASTATIN CALCIUM 40 MG TABLET. PO SCH (21:16)
[2020-11-26] MEDS: CLINDAMYCIN HCL 150 MG CAPSULE. PEG SCH ×4 (00:56→16:55)
[2020-11-26 02:47] VITALS: BP 136/76
[2020-11-26] MEDS: INSULIN LISPRO 300 UNITS/3 ML VIAL. SQ SCH ×4 (05:08→17:46)
[2020-11-26 06:40] LABS: PROTHROMBIN TIME PATIENT 22.8 SEC (11.7-14.0)
[2020-11-26 07:00] VITALS: BP 103/77
--- NOTE | 2020-11-26 07:46 | PDOC ---
[employer] PROGRESS NOTE Date of Service DOS: DATE: 11/26/20 TIME: 07:35 Chief Complaint Chief Complaint Acute anemia Acute metabolic, infectious encephalopathy Acute hypoxic respiratory failure Healthcare associated pneumonia Acute hypoglycemia Hypokalemia Elevated troponins Severe protein malnutrition Morbid obesity AAA, 4 cm, infrarenal History of diabetes mellitus type 2 History of dyslipidemia history of hypertension History of recent STEMI History of CAD History of peripheral artery disease History of JEANNE History of CVA History of paroxysmal atrial fibrillation Ischemic cardiomyopathy History of Present Illness History of Present Illness 11/26: Afebrile, on 8 L trach collar. No changes overnight. Guardianship papers signed by niece and faxed to the compliance attorney managing this case. Patient has been accepted at [facility]. 11/25: Afebrile, on 8 L trach collar. Still with some relative hypotension, BP 92/50 mmHg. As needed normal saline boluses. He will need guardianship for placement to LTAC, and patient's niece requesting to be proposed guardians at this time. Signed paperwork was faxed to the compliance attorney managing this case. Patient has been accepted at [facility]. 11/24: Afebrile, 8 L on trach collar. Dressings to right elbow change, appear to have obtained hemostasis. Accepted at [facility], pending insurance authorization. 11/23: Afebrile, on trach collar is a clear. Niece present at bedside and updated her on patient's clinical course and likely poor prognosis of recovery. Some bleeding from right olecranon process secondary to irritated scab. Given the fact that patient is on blood thinners, if unable to control with compression may need to hold warfarin temporarily until hemostasis can be obtained. Accepted at [facility], pending insurance authorization. 11/22: No acute change overnight. On trach collar 8 L. Guardianship papers were signed yesterday by niece. Patient has been accepted to [facility], pending insurance authorization. 11/21: Afebrile. Tolerated trach shield with BiPAP overnight. Guardianship papers to be signed today by patient's niece. Transfer to LTAC at [facility] in the near future pending insurance authorization. 11/20: Afebrile, on trach collar 8 L. Patient's niece is applying for guardianship prior to [facility]. She has decided to make patient full code. Anticipate transfer to LTAC in near future. RN discussed with patient's niece, she would like his CODE STATUS to be full code. I agree with Dr. Ennis, no prognosis for meaningful recovery. Discussed with niece (Casandra Andrews) by phone about poor prognosis and goals of care; she reiterates that she would like him to still be full code at this time. 11/19 Patient evaluated and examined at bedside. He was on the trach collar at 8. Informed patient's niece today that really only thing waiting on now is guardianship to be approved. Hopeful for that to happen in the coming week. Otherwise continue to monitor respiratory status. No major neurologic changes. Plan of care discussed with bedside RN. 11/18 On trach collar when being seen. Still with minimal neurologic status. Once social issues sorted out well discharge. 11/17 Patient evaluated and examined at bedside. He was tolerating being on the trach collar when seen. No change in neurologic status really. I have written a letter to send to the local nurse's companion with my support for his need of a guardian. 11/16 Patient evaluated and examined at bedside. Patient's niece at bedside discussed case at length with her and ongoing plan. He does present as movement in his upper extremities today. He did open his eyes to his niece's voice earlier. Continue current plan of care. 11/15 Patient evaluated and examined at bedside. Remains minimally responsive. He is discharged ready. Just waiting for social issues to be sorted out. Possible discharge 11/14: No sort of clinical change overnight. Remains encephalopathic. Can discharge whenever guardianship and social issues mediated. 10: Afebrile. Still no meaningful response to any sort of interaction. Remains on trach. PEG tube. Complicated social situation. Afebrile. BP a little up today. Continues to remain encephalopathic off sed ation requiring 8 L trach shield O2 with O2 saturations 91%. Tolerating PEG feeds with free water boluses. INR 2.8. Discussed with anabel Guajardo she is reaching out to the rest of the family. 10: Afebrile. No meaningful following of commands, opens eyes. Requires 8L trach shield O2 to maintain O2 saturations 90%. No residuals on PEG tube feeds. Discussed with anabel Guajardo bedside she is going to reach out to the rest of the family now the family has been located. 11/10: Afebrile. Continues to be encephalopathic no meaningful eye contact movements not following commands. Requiring 8 L trach shield O2 to maintain saturations 91%. No residuals on tube feeds 45 cc/h. INR 2.8. Throughout heroic efforts by social work estranged family has been found and has a niece who will be visiting sometime potentially later today or tomorrow 11/09: Afebrile. Still encephalopathic not making any meaningful eye contact or movements not following commands. Waiting for guardianship. 8 L trach shield O2. Tolerating tube feeds with no residuals 45 cc/h. INR 2.6 11/08: Afebrile. Opens eyes but no meaningful contact not following commands. Requiring 8 L trach shield O2 mask. 11/07: Not responsive to stimuli, not making eye contact. Afebrile. Seen on 8 L trach collar canula. Hb 9.1 Renal labs stable INR 3.1. 11/06: Patient not meaningfully responding well. On trach shield and BiPAP as needed on trach. PEG feeds with no significant residuals. 11/05: Patient is still unresponsive. Pupils reactive to light and accommodation. No meaningful movements. Actively posturing at bed side. Has peg feeding at 45cc/hr. Trach shield at 8L and BIPAP PRN at 35%. There is an open wound at the site of the peg insertion. Wound care, Dr. Cristobal is consulted. 11/04: Patient is still unresponsive. Pupils reactive to light and accommodation. Actively posturing at bedside. No meaningful movements. Has peg feeding at 45c c/hr. Trach shield at 8L and BIPAP PRN at 35%. 11/03: Patient seen and examined. Discussed with RN and social security benefits interviewer. Chart reviewed. Patient is still unresponsive. Actively decorticate posturing at bedside. Eyes rolled upward. No meaningful movements. Has peg feeding at 45cc/hr. The bleeding at the peg insertion site has stopped. 11/02: Patient seen and examined. Chart reviewd. Discussed with RN and social security benefits interviewer. Patient is still unresponsive. No meaningful movements. Actively decorticate posturing at bedside. Has peg feeding running at 45cc/hr. Some bleeding at the peg insertion site. 11/01: Patient seen and examined. Discussed with social security benefits interviewer and RN. Patient is still unresponsive. No meaningful movements. Peg feeding is running at 45cc/hr. Patient is actively posturing at bed side. Trach shield at 8L and BIPAP PRN at 35%. 10/31: Patient seen and examined. Chart reviewed. Discussed with social security benefits interviewer and RN. Patient still unresponsive. Patient actively posturing at bed side. Has peg running at 45cc/hr. Vestibulo-ocular reflex intact. 10/30: Patient seen and examined. Discussed with social security benefits interviewer and RN. Chart reviewed. Patient actively posturing at bed side. Has peg running at 45cc/hr. Mr Andrews is a 70-year-old male with a recent prolonged hospitalization for STEMI and respiratory failure for which she was treated with arterial thrombolysis for a right leg popliteal artery aneurysm and also had left heart cath with placement of a stent in the LAD and RCA comes in today after he was found obtunded at his intermediate facility. Apparently according to the nursing facility patient was in his usual state of health and he was conversational but then became altered. His blood glucose was found to be in the 30s. Glucose tabs and glucagon was given in route and his GCS reported at 6. Upon arrival patient's mental status did not improve and he was eventually intubated for airway protection. Of note EMS was bagging the patient through the nasal access. In the ED, patient was placed on a vent and pulmonology was consulted. Patient was also taken to the CT scanner for sanders scanning. Patient was started to wake up on the vent and sedation was ordered. 09/23: Patient examined at bedside. Intubated. Not on any sedation but unresponsive. Neurology consult in place. 09/24: Patient seen and examined at bedside. Remains intubated he is off sedation but still remains unresponsive. Planning for MRI brain in the morning. Further plan to be determined by MRI. 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 09/25: Afebrile, currently breathing on ventilator with FiO2 50%, PEEP 5. Had CODE BLUE in ICU this morning; received 2 rounds of CPR, epinephrine, and atropine with ROSC. MRI brain negative. Made DNR, and after discussion with Dr. Rubalcava he agrees. 09/26:: Afebrile. Still on vent, with FiO2 45%, PEEP 5. After discussion with Dr. Rubalcava yesterday, patient was made DNR. In the ED is likely a poor candidate for weaning trials may need trach in near future if no significant improvement. 09/27:: Afebrile. On vent with FiO2 40%, PEEP 5. Potassium 2.8 today, will replace. Warfarin has been resumed. Discussed with pharmacy, will resume aspirin and Plavix. May need tracheostomy by the end of the week if no improvement in mental status. 09/28:: Afebrile. On ventilator with FiO2 40%, PEEP 5. Warfarin has been resumed; INR 1.3 today. Some morning labs still pending; hemoglobin yesterday 7.3, will continue to monitor. Continue IV cefepime and supportive care. 09/29: Afebrile. Breathing on vent with FiO2 40%, PEEP 5. INR 1.2 today; pharmacy to help with warfarin dosing. White count within normal range, renal function stable. Spoke with pharmacy about cefepime 1 g every 8 hours dosing; this has been changed to cefepime 2 g every 8 hours. 09/30: Afebrile. Currently breathing on vent with FiO2 40%, PEEP 5. Continue antibiotics, cefepime 2 g every 8 hours. INR 1.4; continue warfarin dosing per pharmacy. Possible tracheostomy at some point. Critical care time 30 minutes reviewing charts, labs, examination, discussion with RN. 10/01: T-max 100.3 F. On ventilator with FiO2 40%, PEEP 5. Continue antibiotics, cefepime 2 g every 8 hours. INR 1.4, still subtherapeutic; continue warfarin dosing per pharmacy. Possible tracheostomy at some point. 10/02: No acute events overnight. Patient saturating 99% on vent settings of 10/450/40/5. Patient will likely need a trach and PEG at some point. We will hold warfarin and start 2 units PRBC transfusion. Patient's chart, labs, images were reviewed and discussed with RN 10/03: No acute events overnight. Patient sat 100% on minimal vent settings. No sedation at this point and patient is opening his eyes spontaneously. Not much response or spontaneous movements. Surgery has been consulted for tracheostomy. Patient will also likely need a PEG tube. 10/04: No acute events overnight. Patient saturating 90% on minimal vent settings. T-max 100.4 overnight. Plan for trach tomorrow with surgery. Patient's chart, labs, images were reviewed and discussed with RN 10/05: No acute events overnight. Patient saturating 99% on minimal vent settings. Plan for tracheostomy today. Consent is provided by authorization by 2 physicians due to patient having no close relatives or DPOA. Will resume heparin and warfarin bridging tomorrow after tracheostomy 10/07: No acute events overnight. Patient seen and examined bedside. On trach vent. Saturating 99%. Pending GI evaluation for possible PEG placement after discussing with cardiology whether to continue with Plavix. Possibly place PEG if patient is only on aspirin and stopping argatroban. 10/08: No acute events overnight. Patient continues to be on trach mechanical vent. Saturating 100%. Pending decision from GI whether to proceed with PEG placement depending on the type of anticoagulation patient will be on. 10/09: No overnight events. On trach with vent support 40% FiO2 PEEP of 5. Currently argatroban and propofol for minimal sedation. When sedation is weaned he has no meaningful movements but has pulled at his tracheostomy site. Unable to hold plavix due to recently placed stents. 10/10: Afebrile today. On trach with vent support 40% FiO2 PEEP of 5. Continue argatroban and changed to Aggrastat in anticipation of surgical consultation for potential laparoscopic PEG placement. INR 1.6. Hb greater than 9 no significant neurologic recovery today. 10/11: Afebrile. On trach with vent support 40% FiO2 PEEP of 5. INR 1.8. Not making meaningful eye contact. Labs otherwise stable. 10/12: Afebrile. Trach with vent support 40% FiO2 PEEP five O2 saturations 92%. INR 1.8, mag 1.8, Hb 8.4. Not following commands. Tentative plans for surgical PEG next week. 10/13: Afebrile. Trach with vent support 40% FiO2 PEEP 5. Eyes open, not tracking or following commands. Holding Plavix. On argatroban. 10/14: Afebrile. Trach with vent support 40% FiO2 PEEP of 5. Will open eyes intermittently not necessarily to voice. Good urine output. Labs stable. 10/15: Afebrile overnight. Trach with vent AC 40% fio2 PEEP 5. Had a very large cassie wel movement. Still not tracking. Hb 9, INR 1.7, glucose 144. Tentative plan for PEG 10/18/2020 CC time 30 minutes 10/16/20: Patient seen and examined in the ICU. He was resting and still on vent via trach. Has NG running via Dobhoff, feeding at 40cc/hr. AC/10/450/40% plus 5 PEEP. Discussed with RN. Chart reviewed. 10/17/20: Patient was seen and examined in the ICU today. Still on vent via trach at AC/10/450/40 plus 5 PEEP. While examined, patient was at 100% O2 saturation. Has SCDs on for DVT prophylaxis. Stauffer catheter in place. On IV argatroban. R subclavian triple lumen in place. Dobhoff running at 40cc/hr. Discussed with RN. Chart reviewed. 10/18/20: Patient seen and examined in ICU. His eyes are open. On vent via trach with settings that were recently changed to spontaneous respirations with FiO2 of 40 and 5 PEEP. Trach is clean and dry. Currently, oxygen saturation is at 100%. Stauffer to bedside and rectal bag in place. Discussed with RN. Chart reviewed. 10/19/20: Patient was seen and examined in the ICU today. His eyes were open and he was resting. On BiPAP via trach AVAPS/10/450/40 plus 5 PEEP. Trach is clean and dry. Has SCDs for DVT prophylaxis. Patient has rectal bag, Stauffer to bedside, and NG tube in place. Discussed with RN. Chart reviewed. 10/20/20 No acute events overnight. Patient seen and examined bedside. Transferred from the ICU. Continues to be nonverbal and not following much commands. Opens eyes to voice. Currently on BiPAP via trach on AVAPS setting 10/450/40 PEEP of 5. Trach site is clear. No signs of infections. Patient's chart, labs, images were reviewed and discussed with RN 10/21/2020 No acute events overnight. Patient seen and examined bedside. Afebrile. Continues to be nonverbal but opens eyes to voice. Currently on BiPAP. Patient's chart, labs, images were reviewed and discussed with RN. 10/22/2020 No acute events overnight. Patient seen examined bedside. Continue with argatroban until warfarin goal INR of 4 and maintenance goal of 2-3. Please see religious studies professor note. Pending appointing a legal guardian. Patient's chart, labs, images were reviewed and discussed with RN 10/23/2020 laparoscopic gastrostomy tube placement (specifically 24 F) Oct discharge planning in place once court appointed DPOA available Acute anemia Acute metabolic, infectious encephalopathy Acute respiratory failure Healthcare associated pneumonia Acute hypoglycemia Hypokalemia Elevated troponins Severe protein malnutrition Morbid obesity AAA, 4 cm, infrarenal History of diabetes mellitus type 2 History of dyslipidemia history of hypertension Patient seen examined bedside. argatroban until warfarin goal INR of 4 and maintenance goal of 2-3. Pending appointing a legal guardian. Patient's chart, labs, images were reviewed and discussed with KARY Cardenas Enteric tube with metallic tip in the left upper quadrant likely in the stomach. 10/24/2020 doing well on trach shield on a 24-hour basis./ blood gases shows no worsening hypercapnia while on trach shield. No apneic breathing reported. laparoscopic gastrostomy tube placement (specifically 24 F) Oct discharge planning in place once court appointed DPOA available Acute anemia Acute metabolic, infectious encephalopathy Acute respiratory failure Healthcare associated pneumonia Acute hypoglycemia Hypokalemia Elevated troponins Severe protein malnutrition Morbid obesity AAA, 4 cm, infrarenal History of diabetes mellitus type 2 History of dyslipidemia history of hypertension Patient seen examined bedside. argatroban until warfarin goal INR of 4 and maintenance goal of 2-3. Pending appointing a legal guardian. Patient's chart, labs, images were reviewed and discussed with KARY Cardenas Enteric tube with metallic tip in the left upper quadrant likely in the stomach. Home on plavix and warfarin D/C INITIAL PLAN TO [facility] PENDING/ discharge planning in place once court appointed DPOA available D/W RN 10/25/2020 doing well on trach shield on a 24-hour basis./ blood gases shows no worsening hypercapnia while on trach shield. No apneic breathing reported. laparoscopic gastrostomy tube placement (specifically 24 F) Oct discharge planning in place once court appointed DPOA available Acute anemia Acute metabolic, infectious encephalopathy Acute respiratory failure Healthcare associated pneumonia Acute hypoglycemia Hypokalemia Elevated troponins Severe protein malnutrition Morbid obesity AAA, 4 cm, infrarenal History of diabetes mellitus type 2 History of dyslipidemia history of hypertension Patient seen examined bedside. argatroban until warfarin goal INR of 4 and maintenance goal of 2-3. Pending appointing a legal guardian. Patient's chart, labs, images were reviewed and discussed with KARY Cardenas Enteric tube with metallic tip in the left upper quadrant likely in the stomach. Home on plavix and warfarin D/C INITIAL PLAN TO [facility] PENDING/ discharge planning in place once court appointed DPOA available D/W RN 10/26/2020 HGB 9.4 doing well on trach shield on a 24-hour basis./ blood gases shows no worsening hypercapnia while on trach shield. No apneic breathing reported. laparoscopic gastrostomy tube placement (specifically 24 F) Oct discharge planning in place once court appointed DPOA available Acute anemia Acute metabolic, infectious encephalopathy Acute respiratory failure Healthcare associated pneumonia Acute hypoglycemia Hypokalemia Elevated troponins Severe protein malnutrition Morbid obesity AAA, 4 cm, infrarenal History of diabetes mellitus type 2 History of dyslipidemia history of hypertension Patient seen examined bedside. argatroban until warfarin goal INR of 4 and maintenance goal of 2-3. Pending appointing a legal guardian. Patient's chart, labs, images were reviewed and discussed with KARY Cardenas Enteric tube with metallic tip in the left upper quadrant likely in the stomach. Home on plavix and warfarin D/C INITIAL PLAN TO [facility] PEND[facility]/ discharge planning in place once court appointed DPOA available D/W RN 10/27/2020 HGB 9.4 doing well on trach shield on a 24-hour basis./ blood gases shows no worsening hypercapnia while on trach shield. No apneic breathing reported. laparoscopic gastrostomy tube placement (specifically 24 F) Oct discharge planning in place once court appointed DPOA available Acute anemia Acute metabolic, infectious encephalopathy Acute respiratory failure Healthcare associated pneumonia Acute hypoglycemia Hypokalemia Elevated troponins Severe protein malnutrition Morbid obesity AAA, 4 cm, infrarenal History of diabetes mellitus type 2 History of dyslipidemia history of hypertension Patient seen examined bedside. argatroban until warfarin goal INR of 4 and maintenance goal of 2-3. Pending appointing a legal guardian. Patient's chart, labs, images were reviewed and discussed with KARY Cardenas Enteric tube with metallic tip in the left upper quadrant likely in the stomach. Home on plavix and warfarin D/C INITIAL PLAN TO [facility] PEND[facility]/ discharge planning in place once court appointed DPOA available D/W RN 10/28/2020 HGB 9.4 doing well on trach shield on a 24-hour basis./ blood gases shows no worsening hypercapnia while on trach shield. No apneic breathing reported. laparoscopic gastrostomy tube placement (specifically 24 F) Oct discharge planning in place once court appointed DPOA available Acute anemia Acute metabolic, infectious encephalopathy Acute respiratory failure Healthcare associated pneumonia Acute hypoglycemia Hypokalemia Elevated troponins Severe protein malnutrition Morbid obesity AAA, 4 cm, infrarenal History of diabetes mellitus type 2 History of dyslipidemia history of hypertension Patient seen examined bedside. argatroban until warfarin goal INR of 4 and maintenance goal of 2-3. Pending appointing a legal guardian. Patient's chart, labs, images were reviewed and discussed with KARY Cardenas Enteric tube with metallic tip in the left upper quadrant likely in the stomach. Home on plavix and warfarin D/C INITIAL PLAN TO [facility] PENDING/ discharge planning in place once court appointed DPOA available D/W RN Vitals/I&O Vitals/I&O: Vital Signs Date Time Temp Pulse Resp B/P (MAP) Pulse Ox O2 Delivery O2 Flow Rate FiO2 11/26/20 07:17 100 Tracheal Collar 8.0 11/26/20 02:47 98.7 80 16 136/76 (96) 98.7 I & O 11/25/20 11/25/20 11/26/20 15:00 23:00 07:00 Intake Total 796 ml 100 ml Output Total 600 ml 800 ml 650 ml Balance 196 ml -700 ml -650 ml Physical Exam Physical Exam: Neuro: actively posturing. Pulpils dialated but reactive to light and accomendation. Flaccidity in the lower extremity bilaterally. Equivocal Babinski. General: Other (actively posturing. No meaningful movements. ) Heart: Regular rate (SR), Other (distant heart sounds) Lungs: Other (Tracheostomy with trach shield. Deminished breath sounds.) Abdomen: Soft, Other (g tube in place) Extremities: No cyanosis, Other (2-3+ bilateral LE pitting edema) Skin: No rashes, No significant lesion Labs Labs: Laboratory Tests Test 11/25/20 11:17 11/25/20 16:31 11/26/20 00:09 11/26/20 05:40 Glucose (Fingerstick) 140 mg/dL (70-99) 152 mg/dL (70-99) 123 mg/dL (70-99) Prothrombin Time 22.8 SEC (11.7-14.0) Prothromb Time International Ratio 2.1 (0.8-1.1) Test 11/26/20 05:46 Glucose (Fingerstick) 139 mg/dL (70-99) Assessment and Plan Assessmemt and Plan Problems Medical Problems: (1) NSTEMI (non-ST elevated myocardial infarction) Status: Acute (2) Obtundation Status: Acute (3) Respiratory arrest Status: Acute Comment Review of Relevant I have reviewed the following items denise (where applicable) has been applied. Medications: Current Medications Medications (Trade) Dose Ordered Sig/Dru Route PRN Reason Start Time Stop Time Status Last Admin Dose Admin Warfarin Sodium (Coumadin) 4 mg Q48H PO 11/25/20 16:00 11/25/20 15:44 Justifications for Admission Other Justification Hypoglycemia and altered mental status. NAIDA LÓPEZ MD Nov 26, 2020 07:46
[2020-11-26] MEDS: LANSOPRAZOLE 30 MG TAB.RAP.DR FT SCH (08:59)
[2020-11-26] MEDS: DOCUSATE 100 MG/10 ML SOLUTION. PO SCH (08:59)
[2020-11-26] MEDS: FUROSEMIDE 40 MG/4 ML VIAL. IVP SCH (08:59)
[2020-11-26] MEDS: AMIODARONE HCL 200 MG TABLET. PO SCH (09:00)
[2020-11-26] MEDS: POTASSIUM BICARB 20 MEQ EFFERVESCENT TABLET. PEG SCH (09:00)
[2020-11-26] MEDS: ASPIRIN CHEWABLE 81 MG TABLET. PO SCH (09:00)
[2020-11-26] MEDS: METOPROLOL TART IMMED RELEASE 25 MG TABLET. PO SCH ×2 (09:01→21:14)
[2020-11-26] MEDS: CLOPIDOGREL BISULFATE 75 MG TABLET PO SCH (09:01)
[2020-11-26] MEDS: FLUCONAZOLE 100 MG TABLET. PEG SCH (09:01)
[2020-11-26 10:00] VITALS: BP 109/61
--- NOTE | 2020-11-26 11:17 | NUR ---
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 Vitamin K given: N Drug Interaction Changes: Same Interacting Drug Ongoing Drug Interactions: amiodarone, aspirin, plavix 11/25 ordered 4mg alternating with 3mg. A:INR of 2.1 is within desired range. Target range for this patient is: 2 -3 P: Warfarin dose: 3 mg Today at 1600 Bridge Therapy: None Therapeutic Next INR due in am Pharmacy anticoagulation service will continue to follow. BANDAR MAXWELL [facility], 11/26/20 1112
[2020-11-26 14:47] VITALS: BP 90/59
[2020-11-26] MEDS: WARFARIN 3 MG TABLET. PO SCH (16:56)
[2020-11-26 19:28] VITALS: BP 141/76
[2020-11-26] MEDS: ATORVASTATIN CALCIUM 40 MG TABLET. PO SCH (21:13)
[2020-11-26 23:20] VITALS: BP 134/73
[2020-11-27] MEDS: CLINDAMYCIN HCL 150 MG CAPSULE. PEG SCH ×4 (01:08→18:30)
[2020-11-27 03:16] VITALS: BP 152/80
[2020-11-27] MEDS: INSULIN LISPRO 300 UNITS/3 ML VIAL. SQ SCH ×4 (06:00→18:00)
[2020-11-27 07:00] VITALS: BP 145/75
[2020-11-27 07:17] LABS: PROTHROMBIN TIME PATIENT 25.9 SEC (11.7-14.0)
[2020-11-27] MEDS: METOPROLOL TART IMMED RELEASE 25 MG TABLET. PO SCH ×2 (10:02→20:47)
[2020-11-27] MEDS: DOCUSATE 100 MG/10 ML SOLUTION. PO SCH (10:02)
[2020-11-27] MEDS: ASPIRIN CHEWABLE 81 MG TABLET. PO SCH (10:02)
[2020-11-27] MEDS: AMIODARONE HCL 200 MG TABLET. PO SCH (10:03)
[2020-11-27] MEDS: CLOPIDOGREL BISULFATE 75 MG TABLET PO SCH (10:03)
[2020-11-27] MEDS: POTASSIUM BICARB 20 MEQ EFFERVESCENT TABLET. PEG SCH (10:03)
[2020-11-27] MEDS: FLUCONAZOLE 100 MG TABLET. PEG SCH (10:03)
[2020-11-27] MEDS: LANSOPRAZOLE 30 MG TAB.RAP.DR FT SCH (10:03)
[2020-11-27] MEDS: FUROSEMIDE 40 MG/4 ML VIAL. IVP SCH (10:04)
--- NOTE | 2020-11-27 10:52 | PDOC ---
PROGRESS NOTES Date of Service DATE: 11/27/20 TIME: 10:51 Assessment Problems Medical Problems: (1) NSTEMI (non-ST elevated myocardial infarction) Status: Acute (2) Obtundation Status: Acute (3) Respiratory arrest Status: Acute Anoxic encephalopathy Found obtunded at [facility], admitted 09/22, unresponsive, hypoglycemic, no new stroke on MRI CODE BLUE on 09/26 Last admit had prolonged encephalopathy following the development of cardiogenic shock, STEMI, with negative EEG and CT head Remote history of seizures Critical illness neuropathy/myopathy Respiratory failure Last admit and this admit: septic shock, leukocytosis, lactic acidosis, acute kidney injury, 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 Transfer to [facility] DO NOT RESUSCITATE No prognosis for meaningful recovery Neurology will follow at intervals Subjective None Objective Vital Signs Date Time Temp Pulse Resp B/P (MAP) Pulse Ox O2 Delivery O2 Flow Rate FiO2 11/27/20 10:03 85 145/75 11/27/20 09:27 100 V60 11/27/20 07:00 97.8 17 8.0 97.8 Intake and Output 11/27/20 07:00 Intake Total 200 ml Output Total 2750 ml Balance -2550 ml Tube Feeding 200 ml Output Urine Total 2750 ml # Bowel Movements 1 PHYSICAL EXAM Trached on BiPAP Eyes fixed in elevation, neck extended, arms flexed, legs extended PERRL. EOMI. CN: no focal findings. Muscle tone: increased Muscle strength: arms flexed, some purposeful movement DTR: 1+ Plantar reflex: Silent Gait: not examined Sensory exam: Not testable Cerebellar: not testable Review of Relevant I have reviewed the following items denise (where applicable) has been applied. Labs Laboratory Tests Test 11/25/20 11:17 11/25/20 16:31 11/26/20 00:09 11/26/20 05:40 Glucose (Fingerstick) 140 mg/dL (70-99) 152 mg/dL (70-99) 123 mg/dL (70-99) Prothrombin Time 22.8 SEC (11.7-14.0) Prothromb Time International Ratio 2.1 (0.8-1.1) Test 11/26/20 05:46 11/26/20 11:05 11/26/20 17:35 11/27/20 00:14 Glucose (Fingerstick) 139 mg/dL (70-99) 150 mg/dL (70-99) 154 mg/dL (70-99) 136 mg/dL (70-99) Test 11/27/20 05:56 11/27/20 06:10 11/27/20 08:04 Glucose (Fingerstick) 132 mg/dL (70-99) 132 mg/dL (70-99) Prothrombin Time 25.9 SEC (11.7-14.0) Prothromb Time International Ratio 2.4 (0.8-1.1) Laboratory Tests Test 11/26/20 11:05 11/26/20 17:35 11/27/20 00:14 11/27/20 05:56 Glucose (Fingerstick) 150 mg/dL (70-99) 154 mg/dL (70-99) 136 mg/dL (70-99) 132 mg/dL (70-99) Test 11/27/20 06:10 11/27/20 08:04 Prothrombin Time 25.9 SEC (11.7-14.0) Prothromb Time International Ratio 2.4 (0.8-1.1) Glucose (Fingerstick) 132 mg/dL (70-99) Medications Current Medications Fentanyl Citrate 30 ml @ 0 mls/hr CONT PRN IV SEE PROTOCOL; Start 09/22/20 at 09:45; Stop 10/13/20 at 09:24; Status DC Propofol 100 ml @ 0 mls/hr CONT PRN IV PER PROTOCOL Last administered on 09/22/20at 10:30; Start 09/22/20 at 09:45; Stop 09/26/20 at 20:12; Status DC Fentanyl Citrate (Fentanyl 2ml Vial) 25 mcg PRN Q1HR PRN IV SEE COMMENTS; Start 09/22/20 at 09:45; Stop 10/24/20 at 18:57; Status DC Fentanyl Citrate (Fentanyl 2ml Vial) 50 mcg PRN Q1HR PRN IV SEE COMMENTS Last administered on 10/03/20at 01:22; Start 09/22/20 at 09:45; Stop 10/24/20 at 18:57; Status DC Chlorhexidine Gluconate (Peridex) 15 ml BID MM ; Start 09/22/20 at 10:00; Stop 09/22/20 at 19:54; Status DC Midazolam HCl (Versed) 2 mg 1X ONCE IV ; Start 09/22/20 at 10:30; Stop 09/22/20 at 10:31; Status DC Iohexol (Omnipaque 300 Mg/ml) 75 ml 1X ONCE IV Last administered on 09/22/20at 11:06; Start 09/22/20 at 10:45; Stop 09/22/20 at 10:46; Status DC Info (CONTRAST GIVEN -- Rx MONITORING) 1 each PRN DAILY PRN MC SEE COMMENTS; Start 09/22/20 at 10:45; Stop 09/24/20 at 10:44; Status DC Potassium Chloride/Water 100 ml @ 100 mls/hr Q1H IV Last administered on 09/22/20at 20:27; Start 09/22/20 at 15:00; Stop 09/22/20 at 18:59; Status DC Cefepime HCl (Maxipime) 1 gm Q8HRS IVP Last administered on 09/29/20at 05:52; Start 09/22/20 at 14:00; Stop 09/29/20 at 10:32; Status DC Sennosides (Senna) 17.2 mg PRN BID PRN PO CONSTIPATION; Start 09/22/20 at 14:00 Docusate Sodium (Colace) 100 mg PRN DAILY PRN PO HARD STOOLS; Start 09/22/20 at 14:00; Stop 09/22/20 at 14:00; Status DC Ondansetron HCl (Zofran) 4 mg PRN Q6HRS PRN IVP NAUSEA/VOMITING, 1ST CHOICE; Start 09/22/20 at 14:00 Insulin Human Lispro (HumaLOG) 0-7 UNITS Q6HRS SQ Last administered on 11/25/20at 18:14; Start 09/22/20 at 18:00 Dextrose (Dextrose 50%-Water Syringe) 12.5 gm PRN Q15MIN PRN IV SEE COMMENTS Last administered on 09/22/20at 17:47; Start 09/22/20 at 14:00 Dextrose/Sodium Chloride 1,000 ml @ 50 mls/hr Q20H IV Last administered on 10/12/20at 11:04; Start 09/22/20 at 14:00; Stop 10/13/20 at 09:24; Status DC Acetaminophen (Tylenol) 650 mg PRN Q4HRS PRN PO TEMP OVER 100.4F OR MILD PAIN Last administered on 09/23/20at 00:20; Start 09/22/20 at 14:00; Stop 09/23/20 at 16:24; Status DC Enoxaparin Sodium (Lovenox 40mg Syringe) 40 mg Q24H SQ ; Start 09/22/20 at 14:00; Status UNV Pantoprazole Sodium (PROTONIX VIAL for IV PUSH) 40 mg DAILY IVP Last administered on 11/09/20at 09:07; Start 09/23/20 at 09:00; Stop 11/10/20 at 07:44; Status DC Prochlorperazine Edisylate (Compazine) 10 mg PRN Q6HRS PRN IV NAUSEA/VOMITING, 2ND CHOICE; Start 09/22/20 at 14:00 Etomidate (Amidate) 20 mg STK-MED ONCE IV ; Start 09/22/20 at 17:46; Stop 09/22/20 at 17:46; Status DC Rocuronium [place] (Zemuron) 50 mg STK-MED ONCE .ROUTE ; Start 09/22/20 at 17:46; Stop 09/22/20 at 17:47; Status DC Norepinephrine Bitartrate 8 mg/ Dextrose 258 ml @ 21.769 mls/ hr CONT PRN IV PER PROTOCOL Last administered on 09/24/20at 13:20; Start 09/22/20 at 18:15; Stop 10/13/20 at 09:24; Status DC Potassium Chloride/Water 100 ml @ 100 mls/hr Q1H IV Last administered on 09/23/20at 14:30; Start 09/23/20 at 07:00; Stop 09/23/20 at 14:59; Status DC Acetaminophen (Tylenol) 650 mg PRN Q6HRS PRN PEG MILD PAIN / TEMP > 100.3'F Last administered on 11/18/20at 21:17; Start 09/23/20 at 16:30 Warfarin Sodium (Coumadin Per Pharmacy) 1 each PRN DAILY PRN MC SEE COMMENTS Last administered on 10/01/20at 12:32; Start 09/24/20 at 12:30; Stop 10/02/20 at 05:55; Status DC Warfarin Sodium (Coumadin) 5 mg 1X WARF ONCE PO Last administered on 09/24/20at 17:42; Start 09/24/20 at 16:00; Stop 09/24/20 at 16:01; Status DC Warfarin Sodium (Coumadin - No Dose Today) 1 each 1X WARF ONCE MC ; Start 09/25/20 at 16:00; Stop 09/25/20 at 16:01; Status DC Warfarin Sodium (Coumadin) 1 mg 1X WARF ONCE PO Last administered on 09/26/20at 16:00; Start 09/26/20 at 16:00; Stop 09/26/20 at 16:01; Status DC Propofol 100 ml @ 3.174 mls/ hr CONT PRN IV PER PROTOCOL Last administered on 10/09/20at 04:43; Start 09/26/20 at 20:15; Stop 10/13/20 at 09:24; Status DC Atropine Sulfate (ATROPINE 1mg SYRINGE) 1 mg STK-MED ONCE .ROUTE ; Start 09/25/20 at 10:00; Stop 09/27/20 at 08:20; Status DC Epinephrine HCl (EPINEPHrine SYRINGE) 1 mg STK-MED ONCE .ROUTE ; Start 09/25/20 at 10:00; Stop 09/27/20 at 08:20; Status DC Warfarin Sodium (Coumadin) 2 mg 1X WARF ONCE PO Last administered on 09/27/20at 17:53; Start 09/27/20 at 16:00; Stop 09/27/20 at 16:01; Status DC Aspirin (Aspirin Chewable) 81 mg DAILYWBKFT PO Last administered on 10/06/20at 11:39; Start 09/27/20 at 09:30; Stop 10/06/20 at 16:23; Status DC Clopidogrel Bisulfate (Plavix) 75 mg DAILYWBKFT PO Last administered on 10/09/20at 09:24; Start 09/27/20 at 09:30; Stop 10/09/20 at 17:03; Status DC Potassium Chloride/Water 100 ml @ 100 mls/hr Q1H IV Last administered on 09/27/20at 12:45; Start 09/27/20 at 11:30; Stop 09/27/20 at 13:29; Status DC Warfarin Sodium (Coumadin) 3 mg 1X WARF ONCE PO Last administered on 09/28/20at 18:18; Start 09/28/20 at 16:00; Stop 09/28/20 at 16:01; Status DC Cefepime HCl (Maxipime) 2 gm Q8HRS IVP Last administered on 10/20/20at 05:36; Start 09/29/20 at 14:00; Stop 10/20/20 at 13:23; Status DC Warfarin Sodium (Coumadin) 3 mg 1X WARF ONCE PO Last administered on 09/29/20at 16:55; Start 09/29/20 at 16:00; Stop 09/29/20 at 16:01; Status DC Warfarin Sodium (Coumadin) 3 mg 1X WARF ONCE PO Last administered on 09/30/20at 16:00; Start 09/30/20 at 16:00; Stop 09/30/20 at 16:01; Status DC Warfarin Sodium (Coumadin) 5 mg 1X WARF ONCE PO Last administered on 10/01/20at 16:35; Start 10/01/20 at 16:00; Stop 10/01/20 at 16:01; Status DC Multi-Ingred Cream/Lotion/Oil/ Oint (Artificial Tears Eye Ointment) 1 sudheer PRN Q1HR PRN OU DRY EYE Last administered on 10/03/20at 12:24; Start 10/02/20 at 12:45 Fentanyl Citrate (Fentanyl 2ml Vial) 25 mcg PRN Q5MIN PRN IVP MILD PAIN 1-3; Start 10/05/20 at 06:00; Stop 10/06/20 at 05:59; Status DC Fentanyl Citrate (Fentanyl 2ml Vial) 50 mcg PRN Q5MIN PRN IVP MODERATE PAIN 4- 6; Start 10/05/20 at 06:00; Stop 10/06/20 at 05:59; Status DC Morphine Sulfate (Morphine Sulfate) 1 mg PRN Q10MIN PRN IVP SEVERE PAIN 7-10; Start 10/05/20 at 06:00; Stop 10/06/20 at 05:59; Status UNV Ringer's Solution 1,000 ml @ 30 mls/hr Q24H IV ; Start 10/05/20 at 06:00; Stop 10/05/20 at 17:59; Status DC Hydromorphone HCl (Dilaudid) 0.5 mg PRN Q10MIN PRN IVP SEVERE PAIN 7-10, 2nd CHOICE; Start 10/05/20 at 06:00; Stop 10/06/20 at 05:59; Status UNV Prochlorperazine Edisylate (Compazine) 5 mg PACU PRN PRN IVP NAUSEA, MRX1; Start 10/05/20 at 06:00; Stop 10/06/20 at 05:59; Status DC Bupivacaine HCl/ Epinephrine Bitart (Sensorcain-Epi 0.5%-1:147483 Mpf) 30 ml STK-MED ONCE .ROUTE Last administered on 10/05/20at 10:09; Start 10/05/20 at 07:12; Stop 10/05/20 at 07:12; Status DC Cellulose (Surgicel Fibrillar 1x2) 1 each STK-MED ONCE .ROUTE Last administered on 10/05/20at 10:30; Start 10/05/20 at 07:12; Stop 10/05/20 at 07:12; Status DC Rocuronium [place] (Zemuron) 50 mg STK-MED ONCE .ROUTE ; Start 10/05/20 at 09:06; Stop 10/05/20 at 09:06; Status DC Rocuronium [place] (Zemuron) 50 mg STK-MED ONCE .ROUTE ; Start 10/05/20 at 10:10; Stop 10/05/20 at 10:10; Status DC Warfarin Sodium (Coumadin Per Pharmacy) 1 each PRN DAILY PRN MC SEE COMMENTS Last administered on 10/06/20at 09:32; Start 10/05/20 at 14:00; Stop 10/06/20 at 16:23; Status DC Argatroban (Argatroban Per Pharmacy) 1 each PRN DAILY PRN MC SEE COMMENTS Last administered on 10/13/20at 16:34; Start 10/05/20 at 14:00; Stop 10/24/20 at 09:37; Status DC Argatroban 50 mg/ Sodium Chloride 50 ml @ 6.48 mls/hr CONT PRN IV ADJUST PER PTT; Start 10/05/20 at 14:00; Stop 10/05/20 at 13:59; Status DC Argatroban 50 mg/ Sodium Chloride 50 ml @ 6.48 mls/hr CONT PRN IV ADJUST PER PTT; Start 10/06/20 at 00:00; Status Cancel Warfarin Sodium (Coumadin) 5 mg 1X WARF ONCE PO Last administered on 10/05/20at 21:23; Start 10/05/20 at 16:00; Stop 10/05/20 at 16:01; Status DC Argatroban 50 mg/ Sodium Chloride 50 ml @ 0 mls/hr CONT PRN IV PER PROTOCOL Last administered on 10/19/20at 22:13; Start 10/06/20 at 09:00; Stop 10/20/20 at 13:02; Status DC Warfarin Sodium (Coumadin) 5 mg 1X WARF ONCE PO ; Start 10/06/20 at 16:00; Stop 10/06/20 at 16:01; Status Cancel Amiodarone HCl (Cordarone) 400 mg DAILY PO Last administered on 11/27/20at 10: 03; Start 10/06/20 at 10:00 Atorvastatin Calcium (Lipitor) 40 mg QHS PO Last administered on 11/26/20at 21:13; Start 10/06/20 at 21:00 Metoprolol Tartrate (Lopressor) 25 mg BID PO Last administered on 11/27/20at 10:02; Start 10/06/20 at 10:00 Furosemide (Lasix) 40 mg DAILY IVP Last administered on 11/27/20at 10:04; Start 10/06/20 at 10:00 Potassium Bicarbonate (Potassium Effervescent Tablet) 20 meq DAILY PEG Last administered on 11/27/20at 10:03; Start 10/06/20 at 10:00 Tirofiban/Sodium Chloride 100 ml @ 0 mls/hr CONT PRN IV PER PROTOCOL Last administered on 10/11/20at 14:11; Start 10/09/20 at 17:00; Stop 10/11/20 at 20:21; Status DC Albumin Human 100 ml @ 100 mls/hr 1X ONCE IV Last administered on 10/12/20at 15:22; Start 10/12/20 at 14:00; Stop 10/12/20 at 14:59; Status DC Furosemide (Lasix) 40 mg 1X ONCE IVP Last administered on 10/12/20at 15:22; Start 10/12/20 at 15:00; Stop 10/12/20 at 15:01; Status DC Aspirin (Aspirin Chewable) 81 mg 1X ONCE PO Last administered on 10/13/20at 12:25; Start 10/13/20 at 10:30; Stop 10/13/20 at 10:31; Status DC Aspirin (Aspirin Chewable) 81 mg DAILYWBKFT PO Last administered on 11/27/20at 10:02; Start 10/14/20 at 08:00 Fentanyl Citrate (Fentanyl 2ml Vial) 25 mcg PRN Q5MIN PRN IVP MILD PAIN 1-3; Start 10/18/20 at 06:00; Stop 10/18/20 at 20:00; Status DC Ringer's Solution 1,000 ml @ 30 mls/hr Q24H IV Last administered on 10/18/20at 06:00; Start 10/18/20 at 06:00; Stop 10/18/20 at 17:59; Status DC Bupivacaine HCl/ Epinephrine Bitart (Sensorcain-Epi 0.5% Kit) 30 ml STK-MED ONCE .ROUTE Last administered on 10/18/20at 11:04; Start 10/18/20 at 10:23; Stop 10/18/20 at 10:24; Status DC Rocuronium [place] (Zemuron) 50 mg STK-MED ONCE .ROUTE ; Start 10/18/20 at 10:48; Stop 10/18/20 at 10:48; Status DC Sevoflurane (Ultane) 60 ml STK-MED ONCE IH ; Start 10/18/20 at 11:13; Stop 10/18/20 at 11:13; Status DC Fentanyl Citrate (Fentanyl 2ml Vial) 100 mcg STK-MED ONCE .ROUTE ; Start 10/18/20 at 11:14; Stop 10/18/20 at 11:14; Status DC Phenylephrine HCl (PHENYLEPHRINE in 0.9% NACL PF) 1 mg STK-MED ONCE IV ; Start 10/18/20 at 11:55; Stop 10/18/20 at 11:56; Status DC Argatroban (Argatroban Per Pharmacy) 1 each PRN DAILY PRN MC SEE COMMENTS; Start 10/19/20 at 10:30; Status UNV Clopidogrel Bisulfate (Plavix) 75 mg DAILYWBKFT PO Last administered on 11/27/20at 10:03; Start 10/19/20 at 14:00 Warfarin Sodium (Coumadin Per Pharmacy) 1 each PRN DAILY PRN MC SEE COMMENTS Last administered on 11/26/20at 11:16; Start 10/19/20 at 13:15 Warfarin Sodium (Coumadin) 5 mg 1X WARF ONCE PO Last administered on 10/19/20at 15:24; Start 10/19/20 at 16:00; Stop 10/19/20 at 16:01; Status DC Warfarin Sodium (Coumadin) 5 mg 1X WARF ONCE PO Last administered on 10/20/20at 19:10; Start 10/20/20 at 16:00; Stop 10/20/20 at 16:01; Status DC Argatroban 50 mg/ Sodium Chloride 50 ml @ 0 mls/hr CONT PRN IV PER PROTOCOL Last administered on 10/24/20at 01:10; Start 10/20/20 at 13:15; Stop 10/24/20 at 09:37; Status DC Warfarin Sodium (Coumadin) 6 mg 1X WARF ONCE PO Last administered on 10/21/20at 17:56; Start 10/21/20 at 16:00; Stop 10/21/20 at 16:01; Status DC Warfarin Sodium (Coumadin) 7.5 mg 1X WARF ONCE PO Last administered on 10/22/20at 17:45; Start 10/22/20 at 16:00; Stop 10/22/20 at 16:01; Status DC Warfarin Sodium (Coumadin) 6 mg 1X WARF ONCE PO Last administered on 10/23/20at 17:05; Start 10/23/20 at 16:00; Stop 10/23/20 at 16:01; Status DC Warfarin Sodium (Coumadin) 4 mg 1X WARF ONCE PO ; Start 10/24/20 at 16:00; Stop 10/24/20 at 10:45; Status DC Warfarin Sodium (Coumadin) 4 mg 1X WARF ONCE PO Last administered on 10/24/20at 17:52; Start 10/24/20 at 16:00; Stop 10/24/20 at 16:01; Status DC Warfarin Sodium (Coumadin) 5 mg 1X WARF ONCE PO Last administered on 10/25/20at 16:51; Start 10/25/20 at 16:00; Stop 10/25/20 at 16:01; Status DC Warfarin Sodium (Coumadin) 6 mg 1X WARF ONCE PO Last administered on 10/26/20at 17:24; Start 10/26/20 at 16:00; Stop 10/26/20 at 16:01; Status DC Alteplase, Recombinant (Cathflo For Central Catheter Clearance) 1 mg 1X ONCE INT CAT Last administered on 10/26/20at 21:50; Start 10/26/20 at 18:30; Stop 10/26/20 at 18:31; Status DC Warfarin Sodium (Coumadin) 6 mg 1X WARF ONCE PO Last administered on 10/27/20at 16:00; Start 10/27/20 at 16:00; Stop 10/27/20 at 16:01; Status DC Warfarin Sodium (Coumadin) 5 mg 1X WARF ONCE PO Last administered on 10/28/20at 18:32; Start 10/28/20 at 16:00; Stop 10/28/20 at 16:01; Status DC Warfarin Sodium (Coumadin) 4 mg 1X WARF ONCE PO Last administered on 10/29/20at 16:51; Start 10/29/20 at 16:00; Stop 10/29/20 at 16:01; Status DC Warfarin Sodium (Coumadin - No Dose Today) 1 each 1X WARF ONCE MC ; Start 10/30/20 at 16:00; Stop 10/30/20 at 16:01; Status DC Warfarin Sodium (Coumadin) 4 mg 1X WARF ONCE PO Last administered on 10/31/20at 15:45; Start 10/31/20 at 16:00; Stop 10/31/20 at 16:01; Status DC Warfarin Sodium (Coumadin) 4 mg 1X WARF ONCE PO ; Start 11/01/20 at 16:00; Stop 11/01/20 at 16:00; Status DC Warfarin Sodium (Coumadin) 4 mg DAILY16 PO Last administered on 11/09/20at 17:28; Start 11/02/20 at 16:00; Stop 11/10/20 at 07:46; Status DC Docusate Sodium (Colace Solution) 100 mg DAILY PO Last administered on 11/27/20at 10:02; Start 11/05/20 at 12:00 Lansoprazole (Prevacid) 30 mg DAILY FT Last administered on 11/27/20at 10:03; Start 11/10/20 at 09:00 Warfarin Sodium (Coumadin) 3 mg DAILY16 PO Last administered on 11/13/20at 16:28; Start 11/10/20 at 16:00; Stop 11/14/20 at 10:35; Status DC Warfarin Sodium (Coumadin) 4 mg DAILY16 PO Last administered on 11/17/20at 16:03; Start 11/14/20 at 16:00; Stop 11/18/20 at 12:46; Status DC Warfarin Sodium (Coumadin) 4 mg DAILY16 PO Last administered on 11/19/20at 16:39; Start 11/19/20 at 16:00; Stop 11/20/20 at 15:03; Status DC Warfarin Sodium (Coumadin) 3 mg 1X WARF ONCE PO Last administered on 11/18/20at 16:00; Start 11/18/20 at 16:00; Stop 11/18/20 at 16:01; Status DC Clindamycin HCl (Cleocin) 300 mg Q6HRS PEG Last administered on 11/27/20at 06:01; Start 11/19/20 at 14:00 Fluconazole (Diflucan) 100 mg DAILY PEG Last administered on 11/27/20at 10:03; Start 11/19/20 at 14:00 Warfarin Sodium (Coumadin - No Dose Today) 1 each 1X WARF ONCE MC Last administered on 11/20/20at 17:00; Start 11/20/20 at 17:00; Stop 11/20/20 at 17:01; Status DC Warfarin Sodium (Coumadin - No Dose Today) 1 each 1X WARF ONCE MC ; Start 11/21/20 at 16:00; Stop 11/21/20 at 16:01; Status DC Warfarin Sodium (Coumadin - No Dose Today) 1 each 1X WARF ONCE MC ; Start 11/22/20 at 16:00; Stop 11/22/20 at 16:01; Status DC Warfarin Sodium (Coumadin - No Dose Today) 1 each 1X WARF ONCE MC ; Start 11/23/20 at 16:00; Stop 11/23/20 at 16:01; Status DC Sodium Chloride 1,000 ml @ 1,000 mls/hr 1X ONCE IV ; Start 11/24/20 at 11:00; Stop 11/24/20 at 11:55; Status DC Sodium Chloride 500 ml @ 500 mls/hr 1X ONCE IV Last administered on 11/24/20at 11:05; Start 11/24/20 at 11:15; Stop 11/24/20 at 12:14; Status DC Warfarin Sodium (Coumadin) 2.5 mg DAILY16 PO Last administered on 11/24/20at 18:22; Start 11/24/20 at 16:00; Stop 11/25/20 at 15:31; Status DC Sodium Chloride 500 ml @ 500 mls/hr 1X ONCE IV Last administered on 11/24/20 at 15:17; Start 11/24/20 at 15:15; Stop 11/24/20 at 16:14; Status DC Sodium Chloride 1,000 ml @ 0 mls/hr Q0M PRN IV ELEVATED BP, SEE COMMENTS; Start 11/24/20 at 16:30 Warfarin Sodium (Coumadin) 4 mg Q48H PO Last administered on 11/25/20at 15:44; Start 11/25/20 at 16:00 Warfarin Sodium (Coumadin) 3 mg Q48H PO Last administered on 11/26/20at 16:56; Start 11/26/20 at 16:00 Active Scripts Active Amiodarone Hcl 200 Mg Tablet 400 Mg PO DAILY 90 Days [Warfarin Per Pharmacy] 1 EACH Each 1 Each MC PRN DAILY PRN 30 Days Clopidogrel (Clopidogrel Bisulfate) 75 Mg Tablet 75 Mg PO DAILYWBKFT 90 Days Humalog (Insulin Lispro) 100 Unit/1 Ml Insuln.pen 0 Units SQ TIDWMEALS 30 Days Duoneb 0.5-3(2.5) Mg/3 Ml (Albuterol/Ipratropium) 3 Ml Ampul.neb 3 Ml NEB RTQID 30 Days Aspirin 325 Mg Tablet 325 Mg PO DAILYWBKFT 30 Days Metoprolol Tartrate 25 Mg Tablet 25 Mg PO BID 30 Days Montelukast Sodium Tablet (Montelukast Sodium) 10 Mg Tablet 10 Mg PO QHS Gabapentin 600 Mg Tablet 600 Mg PO BID 30 Days Reported Glimepiride 4 Mg Tablet 1 Tab PO DAILY Furosemide 40 Mg Tablet 1 Tab PO BID Symbicort 160-4.5 Mcg Inhaler (Budesonide/Formoterol Fumarate) 10.2 Gm Hfa.aer.ad 1 Puff INH DAILY Losartan-Hctz 100-12.5 Mg Tab (Losartan/Hydrochlorothiazide) 1 Each Tablet 1 Tab PO DAILY Nitrofurantoin [place]-Mcr 100 Mg (Nitrofurantoin Monohyd/M-Cryst) 100 Mg Capsule 1 Cap PO BID Betamethasone Valerate 60 Ml Lotion 1 TP QHS Atorvastatin Calcium 40 Mg Tablet 1 Tab PO DAILY Diltiazem 24Hr Cd (Diltiazem HCl) 240 Mg Cap.er.24h 1 Cap PO DAILY Nystop (Nystatin) 60 Gm Powder 1 Sudheer TP BID Pepcid (Famotidine) 20 Mg Tablet 20 Mg PO BID Vitals/I & O Vital Sign - Last 24 Hours 11/26/20 11/26/20 11/26/20 11/26/20 11:45 14:47 15:52 19:28 Temp 98.0 98.1 98.0 98.1 Pulse 69 79 Resp 17 16 B/P (MAP) 90/59 (69) 141/76 (97) Pulse Ox 100 99 100 95 O2 Delivery Tracheal Collar Tracheal Collar Tracheal Collar Tracheal Collar O2 Flow Rate 8.0 8.0 8.0 8.0 11/26/20 11/26/20 11/26/20 11/26/20 19:45 19:45 20:50 21:14 Pulse 79 B/P (MAP) 141/76 Pulse Ox 84 O2 Delivery Trach Collar Tracheal Collar O2 Flow Rate 8.0 8.0 8.0 11/26/20 11/26/20 11/26/20 11/27/20 21:21 23:20 23:29 01:00 Temp 98.2 98.2 Pulse 73 Resp 18 B/P (MAP) 134/73 (93) Pulse Ox 100 93 100 100 O2 Delivery V60 Tracheal Collar V60 V60 O2 Flow Rate 8.0 11/27/20 11/27/20 11/27/20 11/27/20 03:00 03:16 05:03 07:00 Temp 98.0 97.8 98.0 97.8 Pulse 79 85 Resp 16 17 B/P (MAP) 152/80 (104) 145/75 (98) Pulse Ox 100 97 93 100 O2 Delivery V60 Tracheal Collar V60 Tracheal Collar O2 Flow Rate 8.0 8.0 11/27/20 11/27/20 11/27/20 09:27 10:02 10:03 Pulse 85 85 B/P (MAP) 145/75 145/75 Pulse Ox 100 O2 Delivery V60 Intake and Output 11/26/20 11/26/20 11/27/20 15:00 23:00 07:00 Intake Total 100 ml 100 ml Output Total 1500 ml 1250 ml Balance -1400 ml 100 ml -1250 ml Justicifation of Admission Dx: Justifications for Admission: Justification of Admission Dx: Yes CHF: Cardiac Arrhythmias RAFAEL REINOSO MD Nov 27, 2020 10:52
[2020-11-27 11:21] VITALS: BP 164/84
--- NOTE | 2020-11-27 11:56 | NUR ---
SS following up with discharge planning. SS reviewed pt chart and discussed with pt RN. Pt is currently on trach collar at eight liters. G tube in place. Pt on IV Lasix. COVID19 negative. Currently awaiting finalized Guardianship papers at this time. [facility] denied pt for LTACH. Appeal in process. Pt is Full Code per family request. SS phoned and faxed clinical updates to [facility], ; fax [phone]. SS will continue to follow for discharge planning.
--- NOTE | 2020-11-27 13:05 | PDOC ---
[employer] PROGRESS NOTE Date of Service DOS: DATE: 11/27/20 TIME: 12:56 Chief Complaint Chief Complaint Acute anemia Acute metabolic, infectious encephalopathy Acute hypoxic respiratory failure Healthcare associated pneumonia Acute hypoglycemia Hypokalemia Elevated troponins Severe protein malnutrition Morbid obesity AAA, 4 cm, infrarenal History of diabetes mellitus type 2 History of dyslipidemia history of hypertension History of recent STEMI History of CAD History of peripheral artery disease History of JEANNE History of CVA History of paroxysmal atrial fibrillation Ischemic cardiomyopathy History of Present Illness History of Present Illness 11/27: Patient was seen and examined. Kangaroo pump is set at 45 cc and hour. Tracheostomy Shield set at 33% FiO2. Discussed with RN and SW. Pts chart was reviewed. 11/26: Afebrile, on 8 L trach collar. No changes overnight. Guardianship papers signed by ninelda and faxed to the deputy commonwealth's attorney managing this case. Patient has been accepted at [facility]. 11/25: Afebrile, on 8 L trach collar. Still with some relative hypotension, BP 92/50 mmHg. As needed normal saline boluses. He will need guardianship for placement to LTAC, and patient's niece requesting to be proposed guardians at this time. Signed paperwork was faxed to the deputy commonwealth's attorney managing this case. Patient has been accepted at [facility]. 11/24: Afebrile, 8 L on trach collar. Dressings to right elbow change, appear to have obtained hemostasis. Accepted at [facility], pending in surance authorization. 11/23: Afebrile, on trach collar is a clear. Niece present at bedside and updated her on patient's clinical course and likely poor prognosis of recovery. Some bleeding from right olecranon process secondary to irritated scab. Given the fact that patient is on blood thinners, if unable to control with compression may need to hold warfarin temporarily until hemostasis can be obtained. Accepted at [facility], pending insurance authorization. 11/22: No acute change overnight. On trach collar 8 L. Guardianship papers were signed yesterday by anabel. Patient has been accepted to [facility], pending insurance authorization. 11/21: Afebrile. Tolerated trach shield with BiPAP overnight. Guardianship papers to be signed today by patient's niece. Transfer to LTAC at [facility] in the near future pending insurance authorization. 11/20: Afebrile, on trach collar 8 L. Patient's niece is applying for guardianship prior to transfer to [facility] at [facility]. She has decided to make patient full code. Anticipate transfer to LTAC in near future. RN discussed with patient's niece, she would like his CODE STATUS to be full code. I agree with Dr. Ennis, no prognosis for meaningful recovery. Discussed with niece (Casandra Andrews) by phone about poor prognosis and goals of care; she reiterates that she would like him to still be full code at this time. 11/19 Patient evaluated and examined at bedside. He was on the trach collar at 8. Informed patient's niece today that really only thing waiting on now is guardianship to be approved. Hopeful for that to happen in the coming week. Otherwise continue to monitor respiratory status. No major neurologic changes. Plan of care discussed with bedside RN. 11/18 On trach collar when being seen. Still with minimal neurologic status. Once social issues sorted out well discharge. 11/17 Patient evaluated and examined at bedside. He was tolerating being on the trach collar when seen. No change in neurologic status really. I have written a letter to send to the local creative services director with my support for his need of a guardian. 11/16 Patient evaluated and examined at bedside. Patient's niece at bedside discussed case at length with her and ongoing plan. He does present as movement in his upper extremities today. He did open his eyes to his niece's voice earlier. Continue current plan of care. 11/15 Patient evaluated and examined at bedside. Remains minimally responsive. He is discharged ready. Just waiting for social issues to be sorted out. Possible discharge 11/14: No sort of clinical change overnight. Remains encephalopathic. Can discharge whenever guardianship and social issues mediated. 11/13: Afebrile. Still no meaningful response to any sort of interaction. Remains on trach. PEG tube. Complicated social situation. Afebrile. BP a little up today. Continues to remain encephalopathic off sedation requiring 8 L trach shield O2 with O2 saturations 91%. Tolerating PEG feeds with free water boluses. INR 2.8. Discussed with niece Casandra she is reaching out to the rest of the family. 10: Afebrile. No meaningful following of commands, opens eyes. Requires 8L trach shield O2 to maintain O2 saturations 90%. No residuals on PEG tube feeds. Discussed with niece Casandra bedside she is going to reach out to the rest of the family now the family has been located. 11/10: Afebrile. Continues to be encephalopathic no meaningful eye contact movements not following commands. Requiring 8 L trach shield O2 to maintain saturations 91%. No residuals on tube feeds 45 cc/h. INR 2.8. Throughout heroic efforts by social work estranged family has been found and has a niece who will be visiting sometime potentially later today or tomorrow 11/09: Afebrile. Still encephalopathic not making any meaningful eye contact or movements not following commands. Waiting for guardianship. 8 L trach shield O2. Tolerating tube feeds with no residuals 45 cc/h. INR 2.6 11/08: Afebrile. Opens eyes but no meaningful contact not following commands. Requiring 8 L trach shield O2 mask. 11/07: Not responsive to stimuli, not making eye contact. Afebrile. Seen on 8 L trach collar canula. Hb 9.1 Renal labs stable INR 3.1. 11/06: Patient not meaningfully responding well. On trach shield and BiPAP as needed on trach. PEG feeds with no significant residuals. 11/05: Patient is still unresponsive. Pupils reactive to light and accommodation. No meaningful movements. Actively posturing at bed side. Has peg feeding at 45cc/hr. Trach shield at 8L and BIPAP PRN at 35%. There is an open wound at the site of the peg insertion. Wound care, Dr. Cristobal is consulted. 11/04: Patient is still unresponsive. Pupils reactive to light and accommodation. Actively posturing at bedside. No meaningful movements. Has peg feeding at 45cc/hr. Trach shield at 8L and BIPAP PRN at 35%. 11/03: Patient seen and examined. Discussed with RN and social contact worker. Chart reviewed. Patient is still unresponsive. Actively decorticate posturing at bedside. Eyes rolled upward. No meaningful movements. Has peg feeding at 45cc/hr. The bleeding at the peg insertion site has stopped. 11/02: Patient seen and examined. Chart reviewd. Discussed with RN and social contact worker. Patient is still unresponsive. No meaningful movements. Actively decorticate posturing at bedside. Has peg feeding running at 45cc/hr. Some bleeding at the peg insertion site. 11/01: Patient seen and examined. Discussed with social contact worker and RN. Patient is still unresponsive. No meaningful movements. Peg feeding is running at 45cc/hr. Patient is actively posturing at bed side. Trach shield at 8L and BIPAP PRN at 35%. 10/31: Patient seen and examined. Chart reviewed. Discussed with social contact worker and RN. Patient still unresponsive. Patient actively posturing at bed side. Has peg running at 45cc/hr. Vestibulo-ocular reflex intact. 10/30: Patient seen and examined. Discussed with social contact worker and RN. Chart reviewed. Patient actively posturing at bed side. Has peg running at 45cc/hr. Mr Andrews is a 70-year-old male with a recent prolonged hospitalization for STEMI and respiratory failure for which she was treated with arterial thr ombolysis for a right leg popliteal artery aneurysm and also had left heart cath with placement of a stent in the LAD and RCA comes in today after he was found obtunded at his [facility] facility. Apparently according to the nursing facility patient was in his usual state of health and he was conversational but then became altered. His blood glucose was found to be in the 30s. Glucose tabs and glucagon was given in route and his GCS reported at 6. Upon arrival patient's mental status did not improve and he was eventually intubated for airway protection. Of note EMS was bagging the patient through the nasal access. In the ED, patient was placed on a vent and pulmonology was consulted. Patient was also taken to the CT scanner for sanders scanning. Patient was started to wake up on the vent and sedation was ordered. 09/23: Patient examined at bedside. Intubated. Not on any sedation but unresponsive. Neurology consult in place. 09/24: Patient seen and examined at bedside. Remains intubated he is off se dation but still remains unresponsive. Planning for MRI brain in the morning. Further plan to be determined by MRI. 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 09/25: Afebrile, currently breathing on ventilator with FiO2 50%, PEEP 5. Had CODE BLUE in ICU this morning; received 2 rounds of CPR, epinephrine, and atropine with ROSC. MRI brain negative. Made DNR, and after discussion with Dr. Rubalcava he agrees. 09/26:: Afebrile. Still on vent, with FiO2 45%, PEEP 5. After discussion with Dr. Rubalcava yesterday, patient was made DNR. In the ED is likely a poor candidate for weaning trials may need trach in near future if no significant improvement. 09/27:: Afebrile. On vent with FiO2 40%, PEEP 5. Potassium 2.8 today, will replace. Warfarin has been resumed. Discussed with pharmacy, will resume aspirin and Plavix. May need tracheostomy by the end of the week if no improvement in mental status. 09/28:: Afebrile. On ventilator with FiO2 40%, PEEP 5. Warfarin has been resumed; INR 1.3 today. Some morning labs still pending; hemoglobin yesterday 7.3, will continue to monitor. Continue IV cefepime and supportive care. 09/29: Afebrile. Breathing on vent with FiO2 40%, PEEP 5. INR 1.2 today; pharmacy to help with warfarin dosing. White count within normal range, renal function stable. Spoke with pharmacy about cefepime 1 g every 8 hours dosing; this has been changed to cefepime 2 g every 8 hours. 09/30: Afebrile. Currently breathing on vent with FiO2 40%, PEEP 5. Continue antibiotics, cefepime 2 g every 8 hours. INR 1.4; continue warfarin dosing per pharmacy. Possible tracheostomy at some point. Critical care time 30 minutes reviewing charts, labs, examination, discussion with RN. 10/01: T-max 100.3 F. On ventilator with FiO2 40%, PEEP 5. Continue antibiotics, cefepime 2 g every 8 hours. INR 1.4, still subtherapeutic; continue warfarin dosing per pharmacy. Possible tracheostomy at some point. 10/02: No acute events overnight. Patient saturating 99% on vent settings of 10/450/40/5. Patient will likely need a trach and PEG at some point. We will hold warfarin and start 2 units PRBC transfusion. Patient's chart, labs, images were reviewed and discussed with RN 10/03: No acute events overnight. Patient sat 100% on minimal vent settings. No sedation at this point and patient is opening his eyes spontaneously. Not much response or spontaneous movements. Surgery has been consulted for tracheostomy. Patient will also likely need a PEG tube. 10/04: No acute events overnight. Patient saturating 90% on minimal vent settings. T-max 100.4 overnight. Plan for trach tomorrow with surgery. Patient's chart, labs, images were reviewed and discussed with RN 10/05: No acute events overnight. Patient saturating 99% on minimal vent settings. Plan for tracheostomy today. Consent is provided by authorization by 2 physicians due to patient having no close relatives or DPOA. Will resume heparin and warfarin bridging tomorrow after tracheostomy 10/07: No acute events overnight. Patient seen and examined bedside. On trach vent. Saturating 99%. Pending GI evaluation for possible PEG placement after discussing with cardiology whether to continue with Plavix. Possibly place PEG if patient is only on aspirin and stopping argatroban. 10/08: No acute events overnight. Patient continues to be on trach mechanical vent. Saturating 100%. Pending decision from GI whether to proceed with PEG placement depending on the type of anticoagulation patient will be on. 10/09: No overnight events. On trach with vent support 40% FiO2 PEEP of 5. Currently argatroban and propofol for minimal sedation. When sedation is weaned he has no meaningful movements but has pulled at his tracheostomy site. Unable to hold plavix due to recently placed stents. 10/10: Afebrile today. On trach with vent support 40% FiO2 PEEP of 5. Continue argatroban and changed to Aggrastat in anticipation of surgical consultation for potential laparoscopic PEG placement. INR 1.6. Hb greater than 9 no significant neurologic recovery today. 10/11: Afebrile. On trach with vent support 40% FiO2 PEEP of 5. INR 1.8. Not making meaningful eye contact. Labs otherwise stable. 10/12: Afebrile. Trach with vent support 40% FiO2 PEEP five O2 saturations 92%. INR 1.8, mag 1.8, Hb 8.4. Not following commands. Tentative plans for surgical PEG next week. 10/13: Afebrile. Trach with vent support 40% FiO2 PEEP 5. Eyes open, not tracking or following commands. Holding Plavix. On argatroban. 10/14: Afebrile. Trach with vent support 40% FiO2 PEEP of 5. Will open eyes in termittently not necessarily to voice. Good urine output. Labs stable. 10/15: Afebrile overnight. Trach with vent AC 40% fio2 PEEP 5. Had a very large bowel movement. Still not tracking. Hb 9, INR 1.7, glucose 144. Tentative plan for PEG 10/18/2020 CC time 30 minutes 10/16/20: Patient seen and examined in the ICU. He was resting and still on vent via trach. Has NG running via Dobhoff, feeding at 40cc/hr. AC/10/450/40% plus 5 PEEP. Discussed with RN. Chart reviewed. 10/17/20: Patient was seen and examined in the ICU today. Still on vent via trach at AC/10/450/40 plus 5 PEEP. While examined, patient was at 100% O2 saturation. Has SCDs on for DVT prophylaxis. Stauffer catheter in place. On IV argatroban. R subclavian triple lumen in place. Dobhoff running at 40cc/hr. Discussed with RN. Chart reviewed. 10/18/20: Patient seen and examined in ICU. His eyes are open. On vent via trach with settings that were recently changed to spontaneous respirations with FiO2 of 40 and 5 PEEP. Trach is clean and dry. Currently, oxygen saturation is at 100%. Stauffer to bedside and rectal bag in place. Discussed with RN. Chart reviewed. 10/19/20: Patient was seen and examined in the ICU today. His eyes were open and he was resting. On BiPAP via trach AVAPS/10/450/40 plus 5 PEEP. Trach is clean and dry. Has SCDs for DVT prophylaxis. Patient has rectal bag, Stauffer to bedside, and NG tube in place. Discussed with RN. Chart reviewed. 10/20/20 No acute events overnight. Patient seen and examined bedside. Transferred from the ICU. Continues to be nonverbal and not following much commands. Opens eyes to voice. Currently on BiPAP via trach on AVAPS setting 10/450/40 PEEP of 5. Trach site is clear. No signs of infections. Patient's chart, labs, images were reviewed and discussed with RN 10/21/2020 No acute events overnight. Patient seen and examined bedside. Afebrile. Continues to be nonverbal but opens eyes to voice. Currently on BiPAP. Patient's chart, labs, images were reviewed and discussed with RN. 10/22/2020 No acute events overnight. Patient seen examined bedside. Continue with argatroban until warfarin goal INR of 4 and maintenance goal of 2-3. Please see cell cleaner note. Pending appointing a legal guardian. Patient's chart, labs, images were reviewed and discussed with RN 10/23/2020 laparoscopic gastrostomy tube placement (specifically 24 F) Oct discharge planning in place once court appointed DPOA available Acute anemia Acute metabolic, infectious encephalopathy Acute respiratory failure Healthcare associated pneumonia Acute hypoglycemia Hypokalemia Elevated troponins Severe protein malnutrition Morbid obesity AAA, 4 cm, infrarenal History of diabetes mellitus type 2 History of dyslipidemia history of hypertension Patient seen examined bedside. argatroban until warfarin goal INR of 4 and maintenance goal of 2-3. Pending appointing a legal guardian. Patient's chart, labs, images were reviewed and discussed with KARY Cardenas Enteric tube with metallic tip in the left upper quadrant likely in the stomach. 10/24/2020 doing well on trach shield on a 24-hour basis./ blood gases shows no worsening h ypercapnia while on trach shield. No apneic breathing reported. laparoscopic gastrostomy tube placement (specifically 24 F) Oct discharge planning in place once court appointed DPOA available Acute anemia Acute metabolic, infectious encephalopathy Acute respiratory failure Healthcare associated pneumonia Acute hypoglycemia Hypokalemia Elevated troponins Severe protein malnutrition Morbid obesity AAA, 4 cm, infrarenal History of diabetes mellitus type 2 History of dyslipidemia history of hypertension Patient seen examined bedside. argatroban until warfarin goal INR of 4 and maintenance goal of 2-3. Pending appointing a legal guardian. Patient's chart, labs, images were reviewed and discussed with KARY Cardenas Enteric tube with metallic tip in the left upper quadrant likely in the stomach. Home on plavix and warfarin D/C INITIAL PLAN TO [facility] PENDING/ discharge planning in place once court appointed DPOA available D/W RN 10/25/2020 doing well on trach shield on a 24-hour basis./ blood gases shows no worsening hypercapnia while on trach shield. No apneic breathing reported. laparoscopic gastrostomy tube placement (specifically 24 F) Oct discharge planning in place once court appointed DPOA available Acute anemia Acute metabolic, infectious encephalopathy Acute respiratory failure Healthcare associated pneumonia Acute hypoglycemia Hypokalemia Elevated troponins Severe protein malnutrition Morbid obesity AAA, 4 cm, infrarenal History of diabetes mellitus type 2 History of dyslipidemia history of hypertension Patient seen examined bedside. argatroban until warfarin goal INR of 4 and maintenance goal of 2-3. Pending appointing a legal guardian. Patient's chart, labs, images were reviewed and discussed with KARY Cardenas Enteric tube with metallic tip in the left upper quadrant likely in the stomach. Home on plavix and warfarin D/C INITIAL PLAN TO [facility] PENDING/ discharge planning in place once court appointed DPOA available D/W RN 10/26/2020 HGB 9.4 doing well on trach shield on a 24-hour basis./ blood gases shows no worsening hypercapnia while on trach shield. No apneic breathing reported. laparoscopic gastrostomy tube placement (specifically 24 F) Oct discharge planning in place once court appointed DPOA available Acute anemia Acute metabolic, infectious encephalopathy Acute respiratory failure Healthcare associated pneumonia Acute hypoglycemia Hypokalemia Elevated troponins Severe protein malnutrition Morbid obesity AAA, 4 cm, infrarenal History of diabetes mellitus type 2 History of dyslipidemia history of hypertension Patient seen examined bedside. argatroban until warfarin goal INR of 4 and maintenance goal of 2-3. Pending appointing a legal guardian. Patient's chart, labs, images were reviewed and discussed with KARY Cardenas Enteric tube with metallic tip in the left upper quadrant likely in the stomach. Home on plavix and warfarin D/C INITIAL PLAN TO [facility] PENDING/ discharge planning in place once court appointed DPOA available D/W RN 10/27/2020 HGB 9.4 doing well on trach shield on a 24-hour basis./ blood gases shows no worsening hypercapnia while on trach shield. No apneic breathing reported. laparoscopic gastrostomy tube placement (specifically 24 F) Oct discharge planning in place once court appointed DPOA available Acute anemia Acute metabolic, infectious encephalopathy Acute respiratory failure Healthcare associated pneumonia Acute hypoglycemia Hypokalemia Elevated troponins Severe protein malnutrition Morbid obesity AAA, 4 cm, infrarenal History of diabetes mellitus type 2 History of dyslipidemia history of hypertension Patient seen examined bedside. argatroban until warfarin goal INR of 4 and maintenance goal of 2-3. Pending appointing a legal guardian. Patient's chart, labs, images were reviewed and discussed with KARY Cardenas Enteric tube with metallic tip in the left upper quadrant likely in the stomach. Home on plavix and warfarin D/C INITIAL PLAN TO [facility] PENDING/ discharge planning in place once court appointed DPOA available D/W RN 10/28/2020 HGB 9.4 doing well on trach shield on a 24-hour basis./ blood gases shows no worsening hypercapnia while on trach shield. No apneic breathing reported. laparoscopic gastrostomy tube placement (specifically 24 F) Oct discharge planning in place once court appointed DPOA available Acute anemia Acute metabolic, infectious encephalopathy Acute respiratory failure Healthcare associated pneumonia Acute hypoglycemia Hypokalemia Elevated troponins Severe protein malnutrition Morbid obesity AAA, 4 cm, infrarenal History of diabetes mellitus type 2 History of dyslipidemia history of hypertension Patient seen examined bedside. argatroban until warfarin goal INR of 4 and maintenance goal of 2-3. Pending appointing a legal guardian. Patient's chart, labs, images were reviewed and discussed with KARY Cardenas Enteric tube with metallic tip in the left upper quadrant likely in the stomach. Home on plavix and warfarin D/C INITIAL PLAN TO [facility] PENDING/ discharge planning in place once court appointed DPOA available D/W RN Vitals/I&O Vitals/I&O: Vital Signs Date Time Temp Pulse Resp B/P (MAP) Pulse Ox O2 Delivery O2 Flow Rate FiO2 11/27/20 11:21 98.1 93 18 164/84 (110) 98 Tracheal Collar 8.0 98.1 I & O 11/26/20 11/26/20 11/27/20 15:00 23:00 07:00 Intake Total 100 ml 100 ml Output Total 1500 ml 1250 ml Balance -1400 ml 100 ml -1250 ml Physical Exam Physical Exam: Neuro: actively posturing. Pulpils dialated but reactive to light and accomendation. Flaccidity in the lower extremity bilaterally. Equivocal Babinski. General: Other (actively posturing. No meaningful movements. ) Heart: Regular rate (SR), Other (distant heart sounds) Lungs: Other (Tracheostomy with trach shield. Deminished breath sounds.) Abdomen: Soft, Other (g tube in place) Extremities: No cyanosis, Other (2-3+ bilateral LE pitting edema) Skin: No rashes, No significant lesion Labs Labs: Laboratory Tests Test 11/26/20 17:35 11/27/20 00:14 11/27/20 05:56 11/27/20 06:10 Glucose (Fingerstick) 154 mg/dL (70-99) 136 mg/dL (70-99) 132 mg/dL (70-99) Prothrombin Time 25.9 SEC (11.7-14.0) Prothromb Time International Ratio 2.4 (0.8-1.1) Test 11/27/20 08:04 11/27/20 11:33 Glucose (Fingerstick) 132 mg/dL (70-99) 146 mg/dL (70-99) Review of Systems Review of Systems: ROS Negative Assessment and Plan Assessmemt and Plan Problems Medical Problems: (1) NSTEMI (non-ST elevated myocardial infarction) Status: Acute (2) Obtundation Status: Acute (3) Respiratory arrest Status: Acute Acute anemia Acute metabolic, infectious encephalopathy Acute hypoxic respiratory failure Healthcare associated pneumonia Acute hypoglycemia Hypokalemia Elevated troponins Severe protein malnutrition Morbid obesity AAA, 4 cm, infrarenal History of diabetes mellitus type 2 History of dyslipidemia history of hypertension History of recent STEMI History of CAD History of peripheral artery disease History of JEANNE History of CVA History of paroxysmal atrial fibrillation Ischemic cardiomyopathy - Continue RT - PTOT - DVT Prophylaxis - Cardiac and Neuro input appreciated. Disposition pending. FULL CODE Comment Review of Relevant I have reviewed the following items denise (where applicable) has been applied. Medications: Current Medications Medications (Trade) Dose Ordered Sig/Dru Route PRN Reason Start Time Stop Time Status Last Admin Dose Admin Warfarin Sodium (Coumadin) 3 mg Q48H PO 11/26/20 16:00 11/26/20 16:56 Justifications for Admission Other Justification Hypoglycemia and altered mental status. MANNY THOMASON III DO Nov 27, 2020 13:05
[2020-11-27 15:22] VITALS: BP 125/65
[2020-11-27] MEDS: WARFARIN 4 MG TABLET. PO SCH (18:30)
[2020-11-27 19:40] VITALS: BP 134/79
[2020-11-27] MEDS: ATORVASTATIN CALCIUM 40 MG TABLET. PO SCH (20:47)
[2020-11-27 23:00] VITALS: BP 99/50
[2020-11-28] MEDS: CLINDAMYCIN HCL 150 MG CAPSULE. PEG SCH ×4 (00:14→18:06)
[2020-11-28 03:05] VITALS: BP 103/69
[2020-11-28] MEDS: INSULIN LISPRO 300 UNITS/3 ML VIAL. SQ SCH ×4 (05:38→16:58)
[2020-11-28 07:18] VITALS: BP 138/70
[2020-11-28] MEDS: DOCUSATE 100 MG/10 ML SOLUTION. PO SCH (10:06)
[2020-11-28] MEDS: CLOPIDOGREL BISULFATE 75 MG TABLET PO SCH (10:06)
[2020-11-28] MEDS: ASPIRIN CHEWABLE 81 MG TABLET. PO SCH (10:06)
[2020-11-28] MEDS: POTASSIUM BICARB 20 MEQ EFFERVESCENT TABLET. PEG SCH (10:07)
[2020-11-28] MEDS: AMIODARONE HCL 200 MG TABLET. PO SCH (10:07)
[2020-11-28] MEDS: FLUCONAZOLE 100 MG TABLET. PEG SCH (10:07)
[2020-11-28] MEDS: LANSOPRAZOLE 30 MG TAB.RAP.DR FT SCH (10:08)
[2020-11-28] MEDS: FUROSEMIDE 40 MG/4 ML VIAL. IVP SCH (10:08)
[2020-11-28] MEDS: METOPROLOL TART IMMED RELEASE 25 MG TABLET. PO SCH ×2 (10:08→22:10)
[2020-11-28 10:37] VITALS: BP 144/75
--- NOTE | 2020-11-28 12:58 | PDOC ---
[employer] PROGRESS NOTE Date of Service DOS: DATE: 11/28/20 TIME: 12:52 Chief Complaint Chief Complaint Acute anemia Acute metabolic, infectious encephalopathy Acute hypoxic respiratory failure Healthcare associated pneumonia Acute hypoglycemia Hypokalemia Elevated troponins Severe protein malnutrition Morbid obesity AAA, 4 cm, infrarenal History of diabetes mellitus type 2 History of dyslipidemia history of hypertension History of recent STEMI History of CAD History of peripheral artery disease History of JEANNE History of CVA History of paroxysmal atrial fibrillation Ischemic cardiomyopathy History of Present Illness History of Present Illness 11/28: Pt was seen, examined, and their chart was reviewed. Pt is still on PEG feed with Tracheostomy Shield. Discharge, pending disposition. Discussed with RN and SW. 11/27: Patient was seen and examined. Kangaroo pump is set at 45 cc and hour. Tracheostomy Shield set at 33% FiO2. Discussed with RN and SW. Pts chart was reviewed. 11/26: Afebrile, on 8 L trach collar. No changes overnight. Guardianship papers signed by anabel and faxed to the assistant district attorney managing this case. Patient has been accepted at [facility]. 11/25: Afebrile, on 8 L trach collar. Still with some relative hypotension, BP 92/50 mmHg. As needed normal saline boluses. He will need guardianship for placement to LTAC, and patient's niece requesting to be proposed guardians at this time. Signed paperwork was faxed to the assistant district attorney managing this case. Patient has been accepted at [facility]. 11/24: Afebrile, 8 L on trach collar. Dressings to right elbow change, appear to have obtained hemostasis. Accepted at [facility], pending insurance authorization. 11/23: Afebrile, on trach collar is a clear. Niece present at bedside and updated her on patient's clinical course and likely poor prognosis of recovery. Some bleeding from right olecranon process secondary to irritated scab. Given the fact that patient is on blood thinners, if unable to control with compression may need to hold warfarin temporarily until hemostasis can be obtained. Accepted at [facility], pending insurance authorization. 11/22: No acute change overnight. On trach collar 8 L. Guardianship papers were signed yesterday by anabel. Patient has been accepted to [facility], pending insurance authorization. 11/21: Afebrile. Tolerated trach shield with BiPAP overnight. Guardianship papers to be signed today by patient's niece. Transfer to LTAC at [facility] in the near future pending insurance authorization. 11/20: Afebrile, on trach collar 8 L. Patient's niece is applying for ardianship prior to transfer to [facility] at [facility]. She has decided to make patient full code. Anticipate transfer to LTAC in near future. RN discussed with patient's niece, she would like his CODE STATUS to be full code. I agree with Dr. Ennis, no prognosis for meaningful recovery. Discussed with niece (Casandra Andrews) by phone about poor prognosis and goals of care; she reiterates that she would like him to still be full code at this time. 11/19 Patient evaluated and examined at bedside. He was on the trach collar at 8. Informed patient's niece today that really only thing waiting on now is guar dianship to be approved. Hopeful for that to happen in the coming week. Otherwise continue to monitor respiratory status. No major neurologic changes. Plan of care discussed with bedside RN. 11/18 On trach collar when being seen. Still with minimal neurologic status. Once social issues sorted out well discharge. 11/17 Patient evaluated and examined at bedside. He was tolerating being on the trach collar when seen. No change in neurologic status really. I have written a letter to send to the local commissioning engineer with my support for his need of a guardian. 11/16 Patient evaluated and examined at bedside. Patient's niece at bedside discussed case at length with her and ongoing plan. He does present as movement in his upper extremities today. He did open his eyes to his niece's voice earlier. Continue current plan of care. 11/15 Patient evaluated and examined at bedside. Remains minimally responsive. He is discharged ready. Just waiting for social issues to be sorted out. Possible discharge 11/14: No sort of clinical change overnight. Remains encephalopathic. Can discharge whenever guardianship and social issues mediated. 11/13: Afebrile. Still no meaningful response to any sort of interaction. Remains on trach. PEG tube. Complicated social situation. Afebrile. BP a little up today. Continues to remain encephalopathic off sedation requiring 8 L trach shield O2 with O2 saturations 91%. Tolerating PEG feeds with free water boluses. INR 2.8. Discussed with ninelda Guajardo she is reaching out to the rest of the family. 11/11: Afebrile. No meaningful following of commands, opens eyes. Requires 8L trach shield O2 to maintain O2 saturations 90%. No residuals on PEG tube feeds. Discussed with anabel Guajardo bedside she is going to reach out to the rest of the family now the family has been located. 11/10: Afebrile. Continues to be encephalopathic no meaningful eye contact movements not following commands. Requiring 8 L trach shield O2 to maintain saturations 91%. No residuals on tube feeds 45 cc/h. INR 2.8. Throughout heroic efforts by social work estranged family has been found and has a niece who will be visiting sometime potentially later today or tomorrow 11/09: Afebrile. Still encephalopathic not making any meaningful eye contact or movements not following commands. Waiting for guardianship. 8 L trach shield O2. Tolerating tube feeds with no residuals 45 cc/h. INR 2.6 11/08: Afebrile. Opens eyes but no meaningful contact not following commands. Requiring 8 L trach shield O2 mask. 11/07: Not responsive to stimuli, not making eye contact. Afebrile. Seen on 8 L trach collar canula. Hb 9.1 Renal labs stable INR 3.1. 11/06: Patient not meaningfully responding well. On trach shield and BiPAP as needed on trach. PEG feeds with no significant residuals. 11/05: Patient is still unresponsive. Pupils reactive to light and accommodation. No meaningful movements. Actively posturing at bed side. Has peg feeding at 45cc/hr. Trach shield at 8L and BIPAP PRN at 35%. There is an open wound at the site of the peg insertion. Wound care, Dr. Cristobal is consulted. 11/04: Patient is still unresponsive. Pupils reactive to light and accommodation. Actively posturing at bedside. No meaningful movements. Has peg feeding at 45cc/hr. Trach shield at 8L and BIPAP PRN at 35%. 11/03: Patient seen and examined. Discussed with RN and health and social care teacher. Chart reviewed. Patient is still unresponsive. Actively decorticate posturing at bedside. Eyes rolled upward. No meaningful movements. Has peg feeding at 45cc/hr. The bleeding at the peg insertion site has stopped. 11/02: Patient seen and examined. Chart reviewd. Discussed with RN and health and social care teacher. Patient is still unresponsive. No meaningful movements. Actively decorticate posturing at bedside. Has peg feeding running at 45cc/hr. Some bleeding at the peg insertion site. 11/01: Patient seen and examined. Discussed with health and social care teacher and RN. Patient is still unresponsive. No meaningful movements. Peg feeding is running at 45cc/hr. Patient is actively posturing at bed side. Trach shield at 8L and BIPAP PRN at 35%. 10/31: Patient seen and examined. Chart reviewed. Discussed with health and social care teacher and RN. Patient still unresponsive. Patient actively posturing at bed side. Has peg running at 45cc/hr. Vestibulo-ocular reflex intact. 10/30: Patient seen and examined. Discussed with health and social care teacher and RN. Chart reviewed. Patient actively posturing at bed side. Has peg running at 45cc/hr. Mr Andrews is a 70-year-old male with a recent prolonged hospitalization for STEMI and respiratory failure for which she was treated with arterial thrombolysis for a right leg popliteal artery aneurysm and also had left heart cath with placement of a stent in the LAD and RCA comes in today after he was [facility]. Apparently according to the nursing facility patient was in his usual state of health and he was conversational but then became altered. His blood glucose was found to be in the 30s. Glucose tabs and glucagon was given in route and his GCS reported at 6. Upon arrival patient's mental status did not improve and he was eventually intubated for airway protection. Of note EMS was bagging the patient through the nasal access. In the ED, patient was placed on a vent and pulmonology was consulted. Patient was also taken to the CT scanner for sanders scanning. Patient was started to wake up on the vent and sedation was ordered. 09/23: Patient examined at bedside. Intubated. Not on any sedation but unresponsive. Neurology consult in place. 09/24: Patient seen and examined at bedside. Remains intubated he is off sedation but still remains unresponsive. Planning for MRI brain in the morning. Further plan to be determined by MRI. 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 09/25: Afebrile, currently breathing on ventilator with FiO2 50%, PEEP 5. Had CODE BLUE in ICU this morning; received 2 rounds of CPR, epinephrine, and at ropine with ROSC. MRI brain negative. Made DNR, and after discussion with Dr. Rubalcava he agrees. 09/26:: Afebrile. Still on vent, with FiO2 45%, PEEP 5. After discussion with Dr. Rubalcava yesterday, patient was made DNR. In the ED is likely a poor candidate for weaning trials may need trach in near future if no significant improvement. 09/27:: Afebrile. On vent with FiO2 40%, PEEP 5. Potassium 2.8 today, will replace. Warfarin has been resumed. Discussed with pharmacy, will resume aspirin and Plavix. May need tracheostomy by the end of the week if no improvement in mental status. 09/28:: Afebrile. On ventilator with FiO2 40%, PEEP 5. Warfarin has been resumed; INR 1.3 today. Some morning labs still pending; hemoglobin yesterday 7.3, will continue to monitor. Continue IV cefepime and supportive care. 09/29: Afebrile. Breathing on vent with FiO2 40%, PEEP 5. INR 1.2 today; pharmacy to help with warfarin dosing. White count within normal range, renal function stable. Spoke with pharmacy about cefepime 1 g every 8 hours dosing; this has been changed to cefepime 2 g every 8 hours. 09/30: Afebrile. Currently breathing on vent with FiO2 40%, PEEP 5. Continue antibiotics, cefepime 2 g every 8 hours. INR 1.4; continue warfarin dosing per pharmacy. Possible tracheostomy at some point. Critical care time 30 minutes reviewing charts, labs, examination, discussion with RN. 10/01: T-max 100.3 F. On ventilator with FiO2 40%, PEEP 5. Continue antibiotics, cefepime 2 g every 8 hours. INR 1.4, still subtherapeutic; cont inue warfarin dosing per pharmacy. Possible tracheostomy at some point. 10/02: No acute events overnight. Patient saturating 99% on vent settings of 10/450/40/5. Patient will likely need a trach and PEG at some point. We will hold warfarin and start 2 units PRBC transfusion. Patient's chart, labs, images were reviewed and discussed with RN 10/03: No acute events overnight. Patient sat 100% on minimal vent settings. No sedation at this point and patient is opening his eyes spontaneously. Not much response or spontaneous movements. Surgery has been consulted for tracheostomy. Patient will also likely need a PEG tube. 10/04: No acute events overnight. Patient saturating 90% on minimal vent settings. T-max 100.4 overnight. Plan for trach tomorrow with surgery. Patient's chart, labs, images were reviewed and discussed with RN 10/05: No acute events overnight. Patient saturating 99% on minimal vent settings. Plan for tracheostomy today. Consent is provided by authorization by 2 physicians due to patient having no close relatives or DPOA. Will resume heparin and warfarin bridging tomorrow after tracheostomy 10/07: No acute events overnight. Patient seen and examined bedside. On trach vent. Saturating 99%. Pending GI evaluation for possible PEG placement after discussing with cardiology whether to continue with Plavix. Possibly place PEG if patient is only on aspirin and stopping argatroban. 10/08: No acute events overnight. Patient continues to be on trach mechanical vent. Saturating 100%. Pending decision from GI whether to proceed with PEG placement depending on the type of anticoagulation patient will be on. 10/09: No overnight events. On trach with vent support 40% FiO2 PEEP of 5. Currently argatroban and propofol for minimal sedation. When sedation is weaned he has no meaningful movements but has pulled at his tracheostomy site. Unable to hold plavix due to recently placed stents. 10/10: Afebrile today. On trach with vent support 40% FiO2 PEEP of 5. Continue argatroban and changed to Aggrastat in anticipation of surgical consultation for potential laparoscopic PEG placement. INR 1.6. Hb greater than 9 no significa nt neurologic recovery today. 10/11: Afebrile. On trach with vent support 40% FiO2 PEEP of 5. INR 1.8. Not making meaningful eye contact. Labs otherwise stable. 10/12: Afebrile. Trach with vent support 40% FiO2 PEEP five O2 saturations 92%. INR 1.8, mag 1.8, Hb 8.4. Not following commands. Tentative plans for surgical PEG next week. 10/13: Afebrile. Trach with vent support 40% FiO2 PEEP 5. Eyes open, not tracking or following commands. Holding Plavix. On argatroban. 10/14: Afebrile. Trach with vent support 40% FiO2 PEEP of 5. Will open eyes intermittently not necessarily to voice. Good urine output. Labs stable. 10/15: Afebrile overnight. Trach with vent AC 40% fio2 PEEP 5. Had a very large bowel movement. Still not tracking. Hb 9, INR 1.7, glucose 144. Tentative plan for PEG 10/18/2020 CC time 30 minutes 10/16/20: Patient seen and examined in the ICU. He was resting and still on vent via trach. Has NG running via Dobhoff, feeding at 40cc/hr. AC/10/450/40% plus 5 PEEP. Discussed with RN. Chart reviewed. 10/17/20: Patient was seen and examined in the ICU today. Still on vent via trach at AC/10/450/40 plus 5 PEEP. While examined, patient was at 100% O2 saturation. Has SCDs on for DVT prophylaxis. Stauffer catheter in place. On IV argatroban. R subclavian triple lumen in place. Dobhoff running at 40cc/hr. Discussed with RN. Chart reviewed. 10/18/20: Patient seen and examined in ICU. His eyes are open. On vent via trach with settings that were recently changed to spontaneous respirations with FiO2 of 40 and 5 PEEP. Trach is clean and dry. Currently, oxygen saturation is at 100%. Stauffer to bedside and rectal bag in place. Discussed with RN. Chart reviewed. 10/19/20: Patient was seen and examined in the ICU today. His eyes were open and he was resting. On BiPAP via trach AVAPS/10/450/40 plus 5 PEEP. Trach is clean and dry. Has SCDs for DVT prophylaxis. Patient has rectal bag, Stauffer to bedside, and NG tube in place. Discussed with RN. Chart reviewed. 10/20/20 No acute events overnight. Patient seen and examined bedside. Transferred from the ICU. Continues to be nonverbal and not following much commands. Opens eyes to voice. Currently on BiPAP via trach on AVAPS setting 10/450/40 PEEP of 5. Trach site is clear. No signs of infections. Patient's chart, labs, images were reviewed and discussed with RN 10/21/2020 No acute events overnight. Patient seen and examined bedside. Afebrile. Continues to be nonverbal but opens eyes to voice. Currently on BiPAP. Patient's chart, labs, images were reviewed and discussed with RN. 10/22/2020 No acute events overnight. Patient seen examined bedside. Continue with argatroban until warfarin goal INR of 4 and maintenance goal of 2-3. Please see mechanical facilities technician note. Pending appointing a legal guardian. Patient's chart, labs, images were reviewed and discussed with RN 10/23/2020 laparoscopic gastrostomy tube placement (specifically 24 F) Oct discharge planning in place once court appointed DPOA available Acute anemia Acute metabolic, infectious encephalopathy Acute respiratory failure Healthcare associated pneumonia Acute hypoglycemia Hypokalemia Elevated troponins Severe protein malnutrition Morbid obesity AAA, 4 cm, infrarenal History of diabetes mellitus type 2 History of dyslipidemia history of hypertension Patient seen examined bedside. argatroban until warfarin goal INR of 4 and maintenance goal of 2-3. Pending appointing a legal guardian. Patient's chart, labs, images were reviewed and discussed with KARY Cardenas Enteric tube with metallic tip in the left upper quadrant likely in the stomach. 10/24/2020 doing well on trach shield on a 24-hour basis./ blood gases shows no worsening hypercapnia while on trach shield. No apneic breathing reported. laparoscopic gastrostomy tube placement (specifically 24 F) Oct discharge planning in place once court appointed DPOA available Acute anemia Acute metabolic, infectious encephalopathy Acute respiratory failure Healthcare associated pneumonia Acute hypoglycemia Hypokalemia Elevated troponins Severe protein malnutrition Morbid obesity AAA, 4 cm, infrarenal History of diabetes mellitus type 2 History of dyslipidemia history of hypertension Patient seen examined bedside. argatroban until warfarin goal INR of 4 and maintenance goal of 2-3. Pending appointing a legal guardian. Patient's chart, labs, images were reviewed and discussed with KARY Cardenas Enteric tube with metallic tip in the left upper quadrant likely in the stomach. Home on plavix and warfarin D/C INITIAL PLAN TO [facility] PENDING/ discharge planning in place once court appointed DPOA available D/W RN 10/25/2020 doing well on trach shield on a 24-hour basis./ blood gases shows no worsening hypercapnia while on trach shield. No apneic breathing reported. laparoscopic gastrostomy tube placement (specifically 24 F) Oct discharge planning in place once court appointed DPOA available Acute anemia Acute metabolic, infectious encephalopathy Acute respiratory failure Healthcare associated pneumonia Acute hypoglycemia Hypokalemia Elevated troponins Severe protein malnutrition Morbid obesity AAA, 4 cm, infrarenal History of diabetes mellitus type 2 History of dyslipidemia history of hypertension Patient seen examined bedside. argatroban until warfarin goal INR of 4 and maintenance goal of 2-3. Pending appointing a legal guardian. Patient's chart, labs, images were reviewed and discussed with KARY Cardenas Enteric tube with metallic tip in the left upper quadrant likely in the stomach. Home on plavix and warfarin D/C INITIAL PLAN TO [facility] PENDING/ discharge planning in place once court appointed DPOA available D/W RN 10/26/2020 HGB 9.4 doing well on trach shield on a 24-hour basis./ blood gases shows no worsening hypercapnia while on trach shield. No apneic breathing reported. laparoscopic gastrostomy tube placement (specifically 24 F) Oct discharge planning in place once court appointed DPOA available Acute anemia Acute metabolic, infectious encephalopathy Acute respiratory failure Healthcare associated pneumonia Acute hypoglycemia Hypokalemia Elevated troponins Severe protein malnutrition Morbid obesity AAA, 4 cm, infrarenal History of diabetes mellitus type 2 History of dyslipidemia history of hypertension Patient seen examined bedside. argatroban until warfarin goal INR of 4 and maintenance goal of 2-3. Pending appointing a legal guardian. Patient's chart, labs, images were reviewed and discussed with KARY Cardenas Enteric tube with metallic tip in the left upper quadrant likely in the stomach. Home on plavix and warfarin D/C INITIAL PLAN TO [facility] PEND[facility]/ discharge planning in place once court appointed DPOA available D/W RN 10/27/2020 HGB 9.4 doing well on trach shield on a 24-hour basis./ blood gases shows no worsening hypercapnia while on trach shield. No apneic breathing reported. laparoscopic gastrostomy tube placement (specifically 24 F) Oct discharge planning in place once court appointed DPOA available Acute anemia Acute metabolic, infectious encephalopathy Acute respiratory failure Healthcare associated pneumonia Acute hypoglycemia Hypokalemia Elevated troponins Severe protein malnutrition Morbid obesity AAA, 4 cm, infrarenal History of diabetes mellitus type 2 History of dyslipidemia history of hypertension Patient seen examined bedside. argatroban until warfarin goal INR of 4 and maintenance goal of 2-3. Pending appointing a legal guardian. Patient's chart, labs, images were reviewed and discussed with KARY Cardenas Enteric tube with metallic tip in the left upper quadrant likely in the stomach. Home on plavix and warfarin D/C INITIAL PLAN TO [facility]END[facility]/ discharge planning in place once court appointed DPOA available D/W KARY 10/28/2020 HGB 9.4 doing well on trach shield on a 24-hour basis./ blood gases shows no worsening hypercapnia while on trach shield. No apneic breathing reported. laparoscopic gastrostomy tube placement (specifically 24 F) Oct discharge planning in place once court appointed DPOA available Acute anemia Acute metabolic, infectious encephalopathy Acute respiratory failure Healthcare associated pneumonia Acute hypoglycemia Hypokalemia Elevated troponins Severe protein malnutrition Morbid obesity AAA, 4 cm, infrarenal History of diabetes mellitus type 2 History of dyslipidemia history of hypertension Patient seen examined bedside. argatroban until warfarin goal INR of 4 and maintenance goal of 2-3. Pending appointing a legal guardian. Patient's chart, labs, images were reviewed and discussed with KARY Cardenas Enteric tube with metallic tip in the left upper quadrant likely in the stomach. Home on plavix and warfarin D/C INITIAL PLAN TO [facility] PEND[facility]/ discharge planning in place once court appointed DPOA available D/W KARY Vitals/I&O Vitals/I&O: Vital Signs Date Time Temp Pulse Resp B/P (MAP) Pulse Ox O2 Delivery O2 Flow Rate FiO2 11/28/20 10:37 98.1 79 16 144/75 (98) 99 TRACH SHIELD W/BIPAP 98.1 11/28/20 08:42 8.0 I & O 11/27/20 11/27/20 11/28/20 15:00 23:00 07:00 Intake Total 100 ml 100 ml Output Total 650 ml 950 ml 1350 ml Balance -550 ml -850 ml -1350 ml Physical Exam Physical Exam: Neuro: actively posturing. Pulpils dialated but reactive to light and accomendation. Flaccidity in the lower extremity bilaterally. Equivocal Babinski. General: Alert, mild distress, Other (actively posturing. No meaningful movements. ) Heart: Regular rate (SR), Other (distant heart sounds) Lungs: Other (Tracheostomy with trach shield. Deminished breath sounds.) Abdomen: Soft, Other (g tube in place) Extremities: No cyanosis, Other (2-3+ bilateral LE pitting edema) Skin: No rashes, No significant lesion Labs Labs: Laboratory Tests Test 11/27/20 16:13 11/28/20 00:02 11/28/20 06:06 11/28/20 12:03 Glucose (Fingerstick) 145 mg/dL (70-99) 128 mg/dL (70-99) 130 mg/dL (70-99) 167 mg/dL (70-99) Review of Systems Review of Systems: ROS Negative. Assessment and Plan Assessmemt and Plan Problems Medical Problems: (1) NSTEMI (non-ST elevated myocardial infarction) Status: Acute (2) Obtundation Status: Acute (3) Respiratory arrest Status: Acute Acute anemia Acute metabolic, infectious encephalopathy Acute hypoxic respiratory failure Healthcare associated pneumonia Acute hypoglycemia Hypokalemia Elevated troponins Severe protein malnutrition Morbid obesity AAA, 4 cm, infrarenal History of diabetes mellitus type 2 History of dyslipidemia history of hypertension History of recent STEMI History of CAD History of peripheral artery disease History of JEANNE History of CVA History of paroxysmal atrial fibrillation Ischemic cardiomyopathy Plan: - Continue RT and PEG Feed - BIPAP PRN - Wound Care - Restart home medications - DVT Prophylaxis - Cardiac and Neuro input appreciated. - Discharge, pending disposition. FULL CODE Comment Review of Relevant I have reviewed the following items denise (where applicable) has been applied. Justifications for Admission Other Justification Hypoglycemia and altered mental status. MANNY THOMASON III DO Nov 28, 2020 12:58
[2020-11-28 14:31] VITALS: BP 104/55
--- NOTE | 2020-11-28 14:57 | NUR ---
SS following up with discharge planning. SS reviewed pt chart and discussed with pt RN. Pt is currently on trach collar at eight liters and 33%. G tube in place. Pt on IV Lasix. Pt on Diflucan and Clindamycin through PEG. COVID19 negative. Currently awaiting finalized Guardianship papers at this time. [facility] denied pt for LTACH. Appeal in process. Pt is Full Code per family request. SS will continue to follow for discharge planning.
[2020-11-28] MEDS: WARFARIN 3 MG TABLET. PO SCH (16:40)
[2020-11-28 18:59] VITALS: BP 138/57
[2020-11-28] MEDS: ATORVASTATIN CALCIUM 40 MG TABLET. PO SCH (22:07)
[2020-11-28 22:44] VITALS: BP 132/77
[2020-11-29] VITALS (11 sets, daily range): BP systolic 99–138; BP diastolic 61–76
[2020-11-29] MEDS: CLINDAMYCIN HCL 150 MG CAPSULE. PEG SCH ×2 (00:44→06:38)
[2020-11-29] MEDS: INSULIN LISPRO 300 UNITS/3 ML VIAL. SQ SCH ×4 (06:00→18:29)
[2020-11-29 06:58] LABS: BASO % 1 % (0-3); EOS # 0.3 x10^3/uL (0.0-0.7); EOS % 5 % (0-3); LYMPH # 2.3 x10^3/uL (1.0-4.8); LYMPH % 43 % (24-48); MEAN CORPUSCULAR HEMOGLOBIN 32 pg (25-35); MEAN CORPUSCULAR HGB CONC 34 g/dL (31-37); MEAN CORPUSCULAR VOLUME 95 fL (79-100); MONO # 0.3 x10^3/uL (0.0-1.1); MONO % 6 % (0-9); NEUT # 2.4 x10^3/uL (1.8-7.7); NEUT % 45 % (31-73); PLATELET COUNT 359 x10^3/uL (140-400); RED BLOOD COUNT 1.95 x10^6/uL (4.30-5.70); RED CELL DISTRIBUTION WIDTH 17.1 % (11.5-14.5); WHITE BLOOD COUNT 5.4 x10^3/uL (4.0-11.0)
[2020-11-29 07:10] LABS: CALCIUM 8.4 mg/dL (8.5-10.1); GFR 73.5; POTASSIUM 3.9 mmol/L (3.5-5.1)
[2020-11-29 07:29] LABS: HEMOGLOBIN 6.3 g/dL (13.0-17.5)
[2020-11-29 07:30] LABS: HEMATOCRIT 18.5 % (39.0-53.0)
[2020-11-29 07:42] LABS: PROTHROMBIN TIME PATIENT 33.5 SEC (11.7-14.0)
--- NOTE | 2020-11-29 08:08 | NUR ---
Pharmacy Warfarin Dosing Note S:Pharmacy consulted to assist with anticoagulation therapy started with target INR: 2 -3 O:DEMETRICE HOWE is a 70 year old M with Atrial Fibrillation, DVT/PE, HIT LABS: Last INR: 3.4 Last HGB: 6.3 Last HCT: 18.5 Last PLT: 359 Last dose of 3 mg given on 11/28/20 at 1640 Previous Regimen: Last admission 08/16/20 was on 5 mg warfarin daily on discharge. Vitamin K given: N Drug Interaction Changes: Same Interacting Drug Ongoing Drug Interactions: amiodarone, aspirin, plavix, fluconazole (11/19) A:INR of 3.4 is above desired range. Target range for this patient is: 2 -3 P: Warfarin dose: Hold Today Bridge Therapy: None Next INR due 11/30/20 Pharmacy anticoagulation service will continue to follow. NICK JONES RPH, 11/29/20 [id number]
--- NOTE | 2020-11-29 09:04 | PDOC ---
[employer] PROGRESS NOTE Date of Service DOS: DATE: 11/29/20 TIME: 08:58 Chief Complaint Chief Complaint Acute anemia Acute metabolic, infectious encephalopathy Acute hypoxic respiratory failure Healthcare associated pneumonia Acute hypoglycemia Hypokalemia Elevated troponins Severe protein malnutrition Morbid obesity AAA, 4 cm, infrarenal History of diabetes mellitus type 2 History of dyslipidemia history of hypertension History of recent STEMI History of CAD History of peripheral artery disease History of JEANNE History of CVA History of paroxysmal atrial fibrillation Ischemic cardiomyopathy History of Present Illness History of Present Illness 11/29: Pt was seen, examined, and their chart was reviewed. Pt is still on PEG feed with AVAPS at 35% FiO2. Discharge, pending disposition. Discussed with RN and SW. 11/28: Pt was seen, examined, and their chart was reviewed. Pt is still on PEG feed with Tracheostomy Shield. Discharge, pending disposition. Discussed with RN and SW. 11/27: Patient was seen and examined. Kangaroo pump is set at 45 cc and hour. Tracheostomy Shield set at 33% FiO2. Discussed with RN and SW. Pts chart was reviewed. 11/26: Afebrile, on 8 L trach collar. No changes overnight. Guardianship papers signed by anabel and faxed to the finance attorney managing this case. Patient has been accepted at [facility]. 11/25: Afebrile, on 8 L trach collar. Still with some relative hypotension, BP 92/50 mmHg. As needed normal saline boluses. He will need guardianship for placement to LTAC, and patient's niece requesting to be proposed guardians at this time. Signed paperwork was faxed to the finance attorney managing this case. Patient has been accepted at [facility]. 11/24: Afebrile, 8 L on trach collar. Dressings to right elbow change, appear to have obtained hemostasis. Accepted at [facility], pending insurance authorization. 11/23: Afebrile, on trach collar is a clear. Niece present at bedside and updated her on patient's clinical course and likely poor prognosis of recovery. Some bleeding from right olecranon process secondary to irritated scab. Given the fact that patient is on blood thinners, if unable to control with compression may need to hold warfarin temporarily until hemostasis can be obtained. Accepted at [facility], pending insurance authorization. 11/22: No acute change overnight. On trach collar 8 L. Guardianship papers were signed yesterday by niece. Patient has been accepted to [facility], pending insurance authorization. 11/21: Afebrile. Tolerated trach shield with BiPAP overnight. Guardianship papers to be signed today by patient's niece. Transfer to LTAC at [facility] in the near future pending insurance authorization. 11/20: Afebrile, on trach collar 8 L. Patient's niece is applying for guardianship prior to transfer to [facility] at [facility]. She has decided to make patient full code. Anticipate transfer to LTAC in near future. RN discussed with patient's niece, she would like his CODE STATUS to be full code. I agree with Dr. Ennis, no prognosis for meaningful recovery. Discussed with niece (Casandra Andrews) by phone about poor prognosis and goals of care; she reiterates that she would like him to still be full code at this time. 11/19 Patient evaluated and examined at bedside. He was on the trach collar at 8. Informed patient's niece today that really only thing waiting on now is guardianship to be approved. Hopeful for that to happen in the coming week. Otherwise continue to monitor respiratory status. No major neurologic changes. Plan of care discussed with bedside RN. 11/18 On trach collar when being seen. Still with minimal neurologic status. Once social issues sorted out well discharge. 11/17 Patient evaluated and examined at bedside. He was tolerating being on the trach collar when seen. No change in neurologic status really. I have written a letter to send to the local masonry teacher with my support for his need of a guardian. 11/16 Patient evaluated and examined at bedside. Patient's niece at bedside discussed case at length with her and ongoing plan. He does present as movement in his upper extremities today. He did open his eyes to his niece's voice earlier. Continue current plan of care. 11/15 Patient evaluated and examined at bedside. Remains minimally responsive. He is discharged ready. Just waiting for social issues to be sorted out. Possible discharge 11/14: No sort of clinical change overnight. Remains encephalopathic. Can discharge whenever guardianship and social issues mediated. 11/13: Afebrile. Still no meaningful response to any sort of interaction. Remains on trach. PEG tube. Complicated social situation. Afebrile. BP a little up today. Continues to remain encephalopathic off sedation requiring 8 L trach shield O2 with O2 saturations 91%. Tolerating PEG feeds with free water boluses. INR 2.8. Discussed with ninelda Guajardo she is reaching out to the rest of the family. 11/11: Afebrile. No meaningful following of commands, opens eyes. Requires 8L trach shield O2 to maintain O2 saturations 90%. No residuals on PEG tube feeds. Discussed with anabel Guajardo bedside she is going to reach out to the rest of the family now the family has been located. 11/10: Afebrile. Continues to be encephalopathic no meaningful eye contact movements not following commands. Requiring 8 L trach shield O2 to maintain saturations 91%. No residuals on tube feeds 45 cc/h. INR 2.8. Throughout heroic efforts by social work estranged family has been found and has a niece who will be visiting sometime potentially later today or tomorrow 11/09: Afebrile. Still encephalopathic not making any meaningful eye contact or movements not following commands. Waiting for guardianship. 8 L trach shield O2. Tolerating tube feeds with no residuals 45 cc/h. INR 2.6 11/08: Afebrile. Opens eyes but no meaningful contact not following commands. Requiring 8 L trach shield O2 mask. 11/07: Not responsive to stimuli, not making eye contact. Afebrile. Seen on 8 L trach collar canula. Hb 9.1 Renal labs stable INR 3.1. 11/06: Patient not meaningfully responding well. On trach shield and BiPAP as needed on trach. PEG feeds with no significant residuals. 11/05: Patient is still unresponsive. Pupils reactive to light and accommodation. No meaningful movements. Actively posturing at bed side. Has peg feeding at 45cc/hr. Trach shield at 8L and BIPAP PRN at 35%. There is an open wound at the site of the peg insertion. Wound care, Dr. Cristobal is consulted. 11/04: Patient is still unresponsive. Pupils reactive to light and accommodation. Actively posturing at bedside. No meaningful movements. Has peg feeding at 45cc/hr. Trach shield at 8L and BIPAP PRN at 35%. 11/03: Patient seen and examined. Discussed with RN and clinical social work aide. Chart reviewed. Patient is still unresponsive. Actively decorticate posturing at bedside. Eyes rolled upward. No meaningful movements. Has peg feeding at 45cc/hr. The bleeding at the peg insertion site has stopped. 11/02: Patient seen and examined. Chart reviewd. Discussed with RN and clinical social work aide. Patient is still unresponsive. No meaningful movements. Actively decorticate posturing at bedside. Has peg feeding running at 45cc/hr. Some bleeding at the peg insertion site. 11/01: Patient seen and examined. Discussed with clinical social work aide and RN. Patient is still unresponsive. No meaningful movements. Peg feeding is running at 45cc/hr. Patient is actively posturing at bed side. Trach shield at 8L and BIPAP PRN at 35%. 10/31: Patient seen and examined. Chart reviewed. Discussed with clinical social work aide and RN. Patient still unresponsive. Patient actively posturing at bed side. Has peg running at 45cc/hr. Vestibulo-ocular reflex intact. 10/30: Patient seen and examined. Discussed with clinical social work aide and RN. Chart reviewed. Patient actively posturing at bed side. Has peg running at 45cc/hr. Mr Andrews is a 70-year-old male with a recent prolonged hospitalization for STEMI and respiratory failure for which she was treated with arterial thrombolysis for a right leg popliteal artery aneurysm and also had left heart cath with placement of a stent in the LAD and RCA comes in today after he was found obtunded at his group home facility. Apparently according to the nursing facility patient was in his usual state of health and he was conv ersational but then became altered. His blood glucose was found to be in the 30s. Glucose tabs and glucagon was given in route and his GCS reported at 6. Upon arrival patient's mental status did not improve and he was eventually intubated for airway protection. Of note EMS was bagging the patient through the nasal access. In the ED, patient was placed on a vent and pulmonology was consulted. Patient was also taken to the CT scanner for sanders scanning. Patient was started to wake up on the vent and sedation was ordered. 09/23: Patient examined at bedside. Intubated. Not on any sedation but unresponsive. Neurology consult in place. 09/24: Patient seen and examined at bedside. Remains intubated he is off sedation but still remains unresponsive. Planning for MRI brain in the morning. Further plan to be determined by MRI. 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 09/25: Afebrile, currently breathing on ventilator with FiO2 50%, PEEP 5. Had CODE BLUE in ICU this morning; received 2 rounds of CPR, epinephrine, and atropine with ROSC. MRI brain negative. Made DNR, and after discussion with Dr. Rubalcava he agrees. 09/26:: Afebrile. Still on vent, with FiO2 45%, PEEP 5. After discussion with Dr. Rubalcava yesterday, patient was made DNR. In the ED is likely a poor candidate for weaning trials may need trach in near future if no significant improvement. 09/27:: Afebrile. On vent with FiO2 40%, PEEP 5. Potassium 2.8 today, will replace. Warfarin has been resumed. Discussed with pharmacy, will resume aspirin and Plavix. May need tracheostomy by the end of the week if no improvement in mental status. 09/28:: Afebrile. On ventilator with FiO2 40%, PEEP 5. Warfarin has been resumed; INR 1.3 today. Some morning labs still pending; hemoglobin yesterday 7.3, will continue to monitor. Continue IV cefepime and supportive care. 09/29: Afebrile. Breathing on vent with FiO2 40%, PEEP 5. INR 1.2 today; pharmacy to help with warfarin dosing. White count within normal range, renal function stable. Spoke with pharmacy about cefepime 1 g every 8 hours dosing; this has been changed to cefepime 2 g every 8 hours. 09/30: Afebrile. Currently breathing on vent with FiO2 40%, PEEP 5. Continue antibiotics, cefepime 2 g every 8 hours. INR 1.4; continue warfarin dosing per pharmacy. Possible tracheostomy at some point. Critical care time 30 minutes reviewing charts, labs, examination, discussion with RN. 10/01: T-max 100.3 F. On ventilator with FiO2 40%, PEEP 5. Continue antibiotics, cefepime 2 g every 8 hours. INR 1.4, still subtherapeutic; continue warfarin dosing per pharmacy. Possible tracheostomy at some point. 10/02: No acute events overnight. Patient saturating 99% on vent settings of 10/450/40/5. Patient will likely need a trach and PEG at some point. We will hold warfarin and start 2 units PRBC transfusion. Patient's chart, labs, images were reviewed and discussed with RN 10/03: No acute events overnight. Patient sat 100% on minimal vent settings. No sedation at this point and patient is opening his eyes spontaneously. Not much response or spontaneous movements. Surgery has been consulted for tracheostomy. Patient will also likely need a PEG tube. 10/04: No acute events overnight. Patient saturating 90% on minimal vent settings. T-max 100.4 overnight. Plan for trach tomorrow with surgery. Patient's chart, labs, images were reviewed and discussed with RN 10/05: No acute events overnight. Patient saturating 99% on minimal vent settings. Plan for tracheostomy today. Consent is provided by authorization by 2 physicians due to patient having no close relatives or DPOA. Will resume heparin and warfarin bridging tomorrow after tracheostomy 10/07: No acute events overnight. Patient seen and examined bedside. On trach vent. Saturating 99%. Pending GI evaluation for possible PEG placement after discussing with cardiology whether to continue with Plavix. Possibly place PEG if patient is only on aspirin and stopping argatroban. 10/08: No acute events overnight. Patient continues to be on trach mechanical vent. Saturating 100%. Pending decision from GI whether to proceed with PEG placement depending on the type of anticoagulation patient will be on. 10/09: No overnight events. On trach with vent support 40% FiO2 PEEP of 5. Currently argatroban and propofol for minimal sedation. When sedation is weaned he has no meaningful movements but has pulled at his tracheostomy site. Unable to hold plavix due to recently placed stents. 10/10: Afebrile today. On trach with vent support 40% FiO2 PEEP of 5. Continue argatroban and changed to Aggrastat in anticipation of surgical consultation for potential laparoscopic PEG placement. INR 1.6. Hb greater than 9 no significant neurologic recovery today. 10/11: Afebrile. On trach with vent support 40% FiO2 PEEP of 5. INR 1.8. Not making meaningful eye contact. Labs otherwise stable. 10/12: Afebrile. Trach with vent support 40% FiO2 PEEP five O2 saturations 92%. INR 1.8, mag 1.8, Hb 8.4. Not following commands. Tentative plans for surgical PEG next week. 10/13: Afebrile. Trach with vent support 40% FiO2 PEEP 5. Eyes open, not tracking or following commands. Holding Plavix. On argatroban. 10/14: Afebrile. Trach with vent support 40% FiO2 PEEP of 5. Will open eyes intermittently not necessarily to voice. Good urine output. Labs stable. 10/15: Afebrile overnight. Trach with vent AC 40% fio2 PEEP 5. Had a very large bowel movement. Still not tracking. Hb 9, INR 1.7, glucose 144. Tentative plan for PEG 10/18/2020 CC time 30 minutes 10/16/20: Patient seen and examined in the ICU. He was resting and still on vent via trach. Has NG running via Dobhoff, feeding at 40cc/hr. AC/10/450/40% plus 5 PEEP. Discussed with RN. Chart reviewed. 10/17/20: Patient was seen and examined in the ICU today. Still on vent via trach at AC/10/450/40 plus 5 PEEP. While examined, patient was at 100% O2 saturation. Has SCDs on for DVT prophylaxis. Stauffer catheter in place. On IV argatroban. R subclavian triple lumen in place. Dobhoff running at 40cc/hr. Discussed with RN. Chart reviewed. 10/18/20: Patient seen and examined in ICU. His eyes are open. On vent via trach with settings that were recently changed to spontaneous respirations with FiO2 of 40 and 5 PEEP. Trach is clean and dry. Currently, oxygen saturation is at 100%. Stauffer to bedside and rectal bag in place. Discussed with RN. Chart reviewed. 10/19/20: Patient was seen and examined in the ICU today. His eyes were open and he was resting. On BiPAP via trach AVAPS/10/450/40 plus 5 PEEP. Trach is clean and dry. Has SCDs for DVT prophylaxis. Patient has rectal bag, Stauffer to bedside, and NG tube in place. Discussed with RN. Chart reviewed. 10/20/20 No acute events overnight. Patient seen and examined bedside. Transferred from the ICU. Continues to be nonverbal and not following much commands. Opens eyes to voice. Currently on BiPAP via trach on AVAPS setting 10/450/40 PEEP of 5. Trach site is clear. No signs of infections. Patient's chart, labs, images were reviewed and discussed with RN 10/21/2020 No acute events overnight. Patient seen and examined bedside. Afebrile. Continues to be nonverbal but opens eyes to voice. Currently on BiPAP. Patient's chart, labs, images were reviewed and discussed with RN. 10/22/2020 No acute events overnight. Patient seen examined bedside. Continue with argatroban until warfarin goal INR of 4 and maintenance goal of 2-3. Please see optical glass sawyer note. Pending appointing a legal guardian. Patient's chart, labs, images were reviewed and discussed with RN 10/23/2020 laparoscopic gastrostomy tube placement (specifically 24 F) Oct discharge planning in place once court appointed DPOA available Acute anemia Acute metabolic, infectious encephalopathy Acute respiratory failure Healthcare associated pneumonia Acute hypoglycemia Hypokalemia Elevated troponins Severe protein malnutrition Morbid obesity AAA, 4 cm, infrarenal History of diabetes mellitus type 2 History of dyslipidemia history of hypertension Patient seen examined bedside. argatroban until warfarin goal INR of 4 and maintenance goal of 2-3. Pending appointing a legal guardian. Patient's chart, labs, images were reviewed and discussed with KARY Cardenas Enteric tube with metallic tip in the left upper quadrant likely in the stomach. 10/24/2020 doing well on trach shield on a 24-hour basis./ blood gases shows no worsening hypercapnia while on trach shield. No apneic breathing reported. laparoscopic gastrostomy tube placement (specifically 24 F) Oct discharge planning in place once court appointed DPOA available Acute anemia Acute metabolic, infectious encephalopathy Acute respiratory failure Healthcare associated pneumonia Acute hypoglycemia Hypokalemia Elevated troponins Severe protein malnutrition Morbid obesity AAA, 4 cm, infrarenal History of diabetes mellitus type 2 History of dyslipidemia history of hypertension Patient seen examined bedside. argatroban until warfarin goal INR of 4 and maintenance goal of 2-3. Pending appointing a legal guardian. Patient's chart, labs, images were reviewed and discussed with KARY Cardenas Enteric tube with metallic tip in the left upper quadrant likely in the stomach. Home on plavix and warfarin D/C INITIAL PLAN TO [facility]/ discharge planning in place once court appointed DPOA available D/W RN 10/25/2020 doing well on trach shield on a 24-hour basis./ blood gases shows no worsening hypercapnia while on trach shield. No apneic breathing reported. laparoscopic gastrostomy tube placement (specifically 24 F) Oct discharge planning in place once court appointed DPOA available Acute anemia Acute metabolic, infectious encephalopathy Acute respiratory failure Healthcare associated pneumonia Acute hypoglycemia Hypokalemia Elevated troponins Severe protein malnutrition Morbid obesity AAA, 4 cm, infrarenal History of diabetes mellitus type 2 History of dyslipidemia history of hypertension Patient seen examined bedside. argatroban until warfarin goal INR of 4 and maintenance goal of 2-3. Pending appointing a legal guardian. Patient's chart, labs, images were reviewed and discussed with KARY Cardenas Enteric tube with metallic tip in the left upper quadrant likely in the stomach. Home on plavix and warfarin D/C INITIAL PLAN TO [facility] [facility]END[facility]/ discharge planning in place once court appointed DPOA available D/W RN 10/26/2020 HGB 9.4 doing well on trach shield on a 24-hour basis./ blood gases shows no worsening hypercapnia while on trach shield. No apneic breathing reported. laparoscopic gastrostomy tube placement (specifically 24 F) Oct discharge planning in place once court appointed DPOA available Acute anemia Acute metabolic, infectious encephalopathy Acute respiratory failure Healthcare associated pneumonia Acute hypoglycemia Hypokalemia Elevated troponins Severe protein malnutrition Morbid obesity AAA, 4 cm, infrarenal History of diabetes mellitus type 2 History of dyslipidemia history of hypertension Patient seen examined bedside. argatroban until warfarin goal INR of 4 and maintenance goal of 2-3. Pending appointing a legal guardian. Patient's chart, labs, images were reviewed and discussed with KARY Cardenas Enteric tube with metallic tip in the left upper quadrant likely in the stomach. Home on plavix and warfarin D/C INITIAL PLAN TO [facility]/ discharge planning in place once court appointed DPOA available D/W RN 10/27/2020 HGB 9.4 doing well on trach shield on a 24-hour basis./ blood gases shows no worsening hypercapnia while on trach shield. No apneic breathing reported. laparoscopic gastrostomy tube placement (specifically 24 F) Oct discharge planning in place once court appointed DPOA available Acute anemia Acute metabolic, infectious encephalopathy Acute respiratory failure Healthcare associated pneumonia Acute hypoglycemia Hypokalemia Elevated troponins Severe protein malnutrition Morbid obesity AAA, 4 cm, infrarenal History of diabetes mellitus type 2 History of dyslipidemia history of hypertension Patient seen examined bedside. argatroban until warfarin goal INR of 4 and maintenance goal of 2-3. Pending appointing a legal guardian. Patient's chart, labs, images were reviewed and discussed with KARY Cardenas Enteric tube with metallic tip in the left upper quadrant likely in the stomach. Home on plavix and warfarin D/C INITIAL PLAN TO [facility]/ discharge planning in place once court appointed DPOA available D/W KARY 10/28/2020 HGB 9.4 doing well on trach shield on a 24-hour basis./ blood gases shows no worsening hypercapnia while on trach shield. No apneic breathing reported. laparoscopic gastrostomy tube placement (specifically 24 F) Oct discharge planning in place once court appointed DPOA available Acute anemia Acute metabolic, infectious encephalopathy Acute respiratory failure Healthcare associated pneumonia Acute hypoglycemia Hypokalemia Elevated troponins Severe protein malnutrition Morbid obesity AAA, 4 cm, infrarenal History of diabetes mellitus type 2 History of dyslipidemia history of hypertension Patient seen examined bedside. argatroban until warfarin goal INR of 4 and maintenance goal of 2-3. Pending appointing a legal guardian. Patient's chart, labs, images were reviewed and discussed with KARY Cardenas Enteric tube with metallic tip in the left upper quadrant likely in the stomach. Home on plavix and warfarin D/C INITIAL PLAN TO [facility]/ discharge planning in place once court appointed DPOA available D/W KARY Vitals/I&O Vitals/I&O: Vital Signs Date Time Temp Pulse Resp B/P (MAP) Pulse Ox O2 Delivery O2 Flow Rate FiO2 11/29/20 07:58 97 Tracheal Collar 8.0 11/29/20 06:03 97.8 77 18 128/73 (91) 97.8 I & O 11/28/20 11/28/20 11/29/20 15:00 23:00 07:00 Intake Total 100 ml 1608 ml 915 ml Output Total 0 ml 1400 ml 400 ml Balance 100 ml 208 ml 515 ml Physical Exam Physical Exam: Neuro: actively posturing. Pulpils dialated but reactive to light and accomendation. Flaccidity in the lower extremity bilaterally. Equivocal Babinski. General: Alert, mild distress, Other (actively posturing. No meaningful movements. ) Heart: Regular rate (SR), Other (distant heart sounds) Lungs: Other (Tracheostomy with trach shield. Deminished breath sounds.) Abdomen: Soft, Other (g tube in place) Extremities: No cyanosis, Other (2-3+ bilateral LE pitting edema) Skin: No rashes, No significant lesion Labs Labs: Laboratory Tests Test 11/28/20 12:03 11/28/20 16:55 11/29/20 00:33 11/29/20 06:26 Glucose (Fingerstick) 167 mg/dL (70-99) 133 mg/dL (70-99) 140 mg/dL (70-99) 139 mg/dL (70-99) Test 11/29/20 06:30 White Blood Count 5.4 x10^3/uL (4.0-11.0) Red Blood Count 1.95 x10^6/uL (4.30-5.70) Hemoglobin 6.3 g/dL (13.0-17.5) Hematocrit 18.5 % (39.0-53.0) Mean Corpuscular Volume 95 fL (79-100) Mean Corpuscular Hemoglobin 32 pg (25-35) Mean Corpuscular Hemoglobin Concent 34 g/dL (31-37) Red Cell Distribution Width 17.1 % (11.5-14.5) Platelet Count 359 x10^3/uL (140-400) Neutrophils (%) (Auto) 45 % (31-73) Lymphocytes (%) (Auto) 43 % (24-48) Monocytes (%) (Auto) 6 % (0-9) Eosinophils (%) (Auto) 5 % (0-3) Basophils (%) (Auto) 1 % (0-3) Neutrophils # (Auto) 2.4 x10^3/uL (1.8-7.7) Lymphocytes # (Auto) 2.3 x10^3/uL (1.0-4.8) Monocytes # (Auto) 0.3 x10^3/uL (0.0-1.1) Eosinophils # (Auto) 0.3 x10^3/uL (0.0-0.7) Basophils # (Auto) 0.0 x10^3/uL (0.0-0.2) Prothrombin Time 33.5 SEC (11.7-14.0) Prothromb Time International Ratio 3.4 (0.8-1.1) Sodium Level 137 mmol/L (136-145) Potassium Level 3.9 mmol/L (3.5-5.1) Chloride Level 97 mmol/L (98-107) Carbon Dioxide Level 32 mmol/L (21-32) Anion Gap 8 (6-14) Blood Urea Nitrogen 24 mg/dL (8-26) Creatinine 1.0 mg/dL (0.7-1.3) Estimated GFR (Cockcroft-Gault) 73.5 Glucose Level 132 mg/dL (70-99) Calcium Level 8.4 mg/dL (8.5-10.1) Review of Systems Review of Systems: ROS Negative Assessment and Plan Assessmemt and Plan Problems Medical Problems: (1) NSTEMI (non-ST elevated myocardial infarction) Status: Acute (2) Obtundation Status: Acute (3) Respiratory arrest Status: Acute Acute anemia Acute metabolic, infectious encephalopathy Acute hypoxic respiratory failure Healthcare associated pneumonia Acute hypoglycemia Hypokalemia Elevated troponins Severe protein malnutrition Morbid obesity AAA, 4 cm, infrarenal History of diabetes mellitus type 2 History of dyslipidemia history of hypertension History of recent STEMI History of CAD History of peripheral artery disease History of JEANNE History of CVA History of paroxysmal atrial fibrillation Ischemic cardiomyopathy Plan: - Continue RT and PEG Feed - Transfuse 1 unit prbc since pt's hemoglobin went down to 6.3 - BIPAP PRN - Wound Care - Restart home medications - DVT Prophylaxis - Check labs - Discharge, pending disposition FULL CODE Comment Review of Relevant I have reviewed the following items denise (where applicable) has been applied. Justifications for Admission Other Justification Hypoglycemia and altered mental status. MANNY THOMASON III DO Nov 29, 2020 09:04
--- NOTE | 2020-11-29 10:09 | NUR ---
Wound/Ostomy Care Wound Type/Assessment: Wound care follow up for PEG tube wound left dorsal great toe. The great toe is still resolved, it remains purple but there is new skin covering over entire area. Pt has a slit on medial side of peg tube insertion site that appears to be from movement of the tubing rubbing, wound is minimal with red non-granulation and minimal drainage. Pt also has small skin tear to right elbow that is healing Treatment Recommendations/Plan: Cleanse wound around the PEG with cholorprep and redress with skin prep and foam dressing. Change every 3 days. Right elbow- apply xeroform and foam, change every 3 days Education provided: Pt unable to retain teaching due to mental status. Offloading surface/device: Pt turned to right side with wedge, heels floated on pillows and patient is currently on a P-500 bed. Recommended Referrals/Tests: na Discharge Recommendations for dressings: Dressing change instructions left in room. No other wounds noted. Bed lowered and HOB elevated and tube feeding resumed. Wound care will follow up on 12/06/20.
[2020-11-29] MEDS: ASPIRIN CHEWABLE 81 MG TABLET. PO SCH (10:45)
[2020-11-29] MEDS: AMIODARONE HCL 200 MG TABLET. PO SCH (10:45)
[2020-11-29] MEDS: POTASSIUM BICARB 20 MEQ EFFERVESCENT TABLET. PEG SCH (10:46)
[2020-11-29] MEDS: METOPROLOL TART IMMED RELEASE 25 MG TABLET. PO SCH ×2 (10:46→22:32)
[2020-11-29] MEDS: LANSOPRAZOLE 30 MG TAB.RAP.DR FT SCH (10:46)
[2020-11-29] MEDS: DOCUSATE 100 MG/10 ML SOLUTION. PO SCH (10:46)
[2020-11-29] MEDS: FUROSEMIDE 40 MG/4 ML VIAL. IVP SCH (10:47)
[2020-11-29] MEDS: CLOPIDOGREL BISULFATE 75 MG TABLET PO SCH (12:16)
--- NOTE | 2020-11-29 15:40 | NUR ---
SS following up with discharge planning. SS reviewed pt chart and discussed with pt RN. Pt is currently on trach collar at eight liters and 33%. G tube in place. Pt on IV Lasix. COVID19 negative. Currently awaiting finalized Guardianship papers at this time. [facility] denied pt for LTACH. Appeal in process. Pt is Full Code per family request. SS will continue to follow for discharge planning.
[2020-11-29] MEDS: ATORVASTATIN CALCIUM 40 MG TABLET. PO SCH (22:32)
[2020-11-30 02:30] VITALS: BP 151/78
[2020-11-30] MEDS: INSULIN LISPRO 300 UNITS/3 ML VIAL. SQ SCH ×4 (06:00→17:33)
[2020-11-30 06:07] VITALS: BP 165/72
[2020-11-30 06:08] LABS: BASO % 1 % (0-3); EOS # 0.3 x10^3/uL (0.0-0.7); EOS % 5 % (0-3); HEMATOCRIT 22.4 % (39.0-53.0); HEMOGLOBIN 7.5 g/dL (13.0-17.5); LYMPH # 2.2 x10^3/uL (1.0-4.8); LYMPH % 36 % (24-48); MEAN CORPUSCULAR HEMOGLOBIN 32 pg (25-35); MEAN CORPUSCULAR HGB CONC 34 g/dL (31-37); MEAN CORPUSCULAR VOLUME 94 fL (79-100); MONO # 0.5 x10^3/uL (0.0-1.1); MONO % 7 % (0-9); NEUT # 3.1 x10^3/uL (1.8-7.7); NEUT % 51 % (31-73); PLATELET COUNT 338 x10^3/uL (140-400); RED BLOOD COUNT 2.38 x10^6/uL (4.30-5.70); RED CELL DISTRIBUTION WIDTH 16.8 % (11.5-14.5); WHITE BLOOD COUNT 6.1 x10^3/uL (4.0-11.0)
[2020-11-30 06:22] LABS: PROTHROMBIN TIME PATIENT 28.5 SEC (11.7-14.0)
[2020-11-30 06:57] LABS: CALCIUM 8.7 mg/dL (8.5-10.1); GFR 73.5; POTASSIUM 4.1 mmol/L (3.5-5.1)
--- NOTE | 2020-11-30 08:16 | NUR ---
Pharmacy Warfarin Dosing Note S:Pharmacy consulted to assist with anticoagulation therapy started with target INR: 2 -3 O:DEMETRICE HOWE is a 70 year old M with Atrial Fibrillation, DVT/PE, HIT LABS: Last INR: 2.7 Last HGB: 7.5 Last HCT: 22.4 Last PLT: 338 Last dose of Hold given on 11/29/20 at 1600 Previous Regimen: Last admission 08/16/20 was on 5 mg warfarin daily on discharge. Vitamin K given: N Drug Interaction Changes: DC'd Interacting Drug - FLUCONAZOLE Ongoing Drug Interactions: amiodarone, aspirin, plavix, fluconazole (11/19-11/29) A:INR of 2.7 is within desired range. Target range for this patient is: 2 -3 P: Warfarin dose: 3 mg Today at 1600 Bridge Therapy: None Next INR due 12/01/20 Pharmacy anticoagulation service will continue to follow. NICK JONES RPH, 11/30/20 0816
[2020-11-30] MEDS: POTASSIUM BICARB 20 MEQ EFFERVESCENT TABLET. PEG SCH (09:00)
[2020-11-30] MEDS: LANSOPRAZOLE 30 MG TAB.RAP.DR FT SCH (09:11)
[2020-11-30] MEDS: METOPROLOL TART IMMED RELEASE 25 MG TABLET. PO SCH ×2 (09:12→22:33)
[2020-11-30] MEDS: DOCUSATE 100 MG/10 ML SOLUTION. PO SCH (09:12)
[2020-11-30] MEDS: CLOPIDOGREL BISULFATE 75 MG TABLET PO SCH (09:12)
[2020-11-30] MEDS: FUROSEMIDE 40 MG/4 ML VIAL. IVP SCH (09:13)
[2020-11-30] MEDS: ASPIRIN CHEWABLE 81 MG TABLET. PO SCH (09:13)
[2020-11-30] MEDS: AMIODARONE HCL 200 MG TABLET. PO SCH (09:13)
[2020-11-30 10:13] VITALS: BP 148/85
--- NOTE | 2020-11-30 11:30 | PDOC ---
[employer] PROGRESS NOTE Date of Service DOS: DATE: 11/30/20 TIME: 11:26 Chief Complaint Chief Complaint Acute anemia Acute metabolic, infectious encephalopathy Acute hypoxic respiratory failure Healthcare associated pneumonia Acute hypoglycemia Hypokalemia Elevated troponins Severe protein malnutrition Morbid obesity AAA, 4 cm, infrarenal History of diabetes mellitus type 2 History of dyslipidemia history of hypertension History of recent STEMI History of CAD History of peripheral artery disease History of JEANNE History of CVA History of paroxysmal atrial fibrillation Ischemic cardiomyopathy History of Present Illness History of Present Illness 11/30: Pt was seen, examined, and their chart was reviewed. Pt is still on PEG feed with 6L of humidified O2. Discharge, disposition pending Discussed with RN and SW. 11/29: Pt was seen, examined, and their chart was reviewed. Pt is still on PEG feed with AVAPS at 35% FiO2. Discharge, pending disposition. Discussed with RN and JENNIFER. 11/28: Pt was seen, examined, and their chart was reviewed. Pt is still on PEG feed with Tracheostomy Shield. Discharge, pending disposition. Discussed with RN and SW. 11/27: Patient was seen and examined. Kangaroo pump is set at 45 cc and hour. Tracheostomy Shield set at 33% FiO2. Discussed with RN and SW. Pts chart was reviewed. 11/26: Afebrile, on 8 L trach collar. No changes overnight. Guardianship papers signed by anabel and faxed to the attorney lawyer managing this case. Patient has been accepted at [facility]. 11/25: Afebrile, on 8 L trach collar. Still with some relative hypotension, BP 92/50 mmHg. As needed normal saline boluses. He will need guardianship for placement to LTAC, and patient's niece requesting to be proposed guardians at this time. Signed paperwork was faxed to the attorney lawyer managing this case. Patient has been accepted at [facility]. 11/24: Afebrile, 8 L on trach collar. Dressings to right elbow change, appear to have obtained hemostasis. Accepted at [facility], pending insurance authorization. 11/23: Afebrile, on trach collar is a clear. Niece present at bedside and updated her on patient's clinical course and likely poor prognosis of recovery. Some bleeding from right olecranon process secondary to irritated scab. Given the fact that patient is on blood thinners, if unable to control with compression may need to hold warfarin temporarily until hemostasis can be obtained. Accepted at [facility], pending insurance authorization. 11/22: No acute change overnight. On trach collar 8 L. Guardianship papers were signed yesterday by niece. Patient has been accepted to [facility], pending insurance authorization. 11/21: Afebrile. Tolerated trach shield with BiPAP overnight. Guardianship papers to be signed today by patient's niece. Transfer to LTAC at [facility] in the near future pending insurance authorization. 11/20: Afebrile, on trach collar 8 L. Patient's niece is applying for guardianship prior to transfer to [facility] at [facility]. She has decided to make patient full code. Anticipate transfer to LTAC in near future. RN discussed with patient's niece, she would like his CODE STATUS to be full code. I agree with Dr. Ennis, no prognosis for meaningful recovery. Discussed with niece (Casandra Andrews) by phone about poor prognosis and goals of care; she reiterates that she would like him to still be full code at this time. 11/19 Patient evaluated and examined at bedside. He was on the trach collar at 8. Informed patient's niece today that really only thing waiting on now is guardianship to be approved. Hopeful for that to happen in the coming week. Otherwise continue to monitor respiratory status. No major neurologic changes. Plan of care discussed with bedside RN. 11/18 On trach collar when being seen. Still with minimal neurologic status. Once social issues sorted out well discharge. 11/17 Patient evaluated and examined at bedside. He was tolerating being on the trach collar when seen. No change in neurologic status really. I have written a letter to send to the local patrol judge with my support for his need of a guardian. 11/16 Patient evaluated and examined at bedside. Patient's niece at bedside discussed case at length with her and ongoing plan. He does present as movement in his upper extremities today. He did open his eyes to his niece's voice earlier. Continue current plan of care. 11/15 Patient evaluated and examined at bedside. Remains minimally responsive. He is discharged ready. Just waiting for social issues to be sorted out. Possible discharge 11/14: No sort of clinical change overnight. Remains encephalopathic. Can discharge whenever guardianship and social issues mediated. 11/13: Afebrile. Still no meaningful response to any sort of interaction. Remains on trach. PEG tube. Complicated social situation. Afebrile. BP a little up today. Continues to remain encephalopathic off sedation requiring 8 L trach shield O2 with O2 saturations 91%. Tolerating PEG feeds with free water boluses. INR 2.8. Discussed with ninelda Guajardo she is reaching out to the rest of the family. 11/11: Afebrile. No meaningful following of commands, opens eyes. Requires 8L trach shield O2 to maintain O2 saturations 90%. No residuals on PEG tube feeds. Discussed with anabel Guajardo bedside she is going to reach out to the rest of the family now the family has been located. 11/10: Afebrile. Continues to be encephalopathic no meaningful eye contact movements not following commands. Requiring 8 L trach shield O2 to maintain saturations 91%. No residuals on tube feeds 45 cc/h. INR 2.8. Throughout heroic efforts by social work estranged family has been found and has a niece who will be visiting sometime potentially later today or tomorrow 11/09: Afebrile. Still encephalopathic not making any meaningful eye contact or movements not following commands. Waiting for guardianship. 8 L trach shield O2. Tolerating tube feeds with no residuals 45 cc/h. INR 2.6 11/08: Afebrile. Opens eyes but no meaningful contact not following commands. Requiring 8 L trach shield O2 mask. 11/07: Not responsive to stimuli, not making eye contact. Afebrile. Seen on 8 L trach collar canula. Hb 9.1 Renal labs stable INR 3.1. 11/06: Patient not meaningfully responding well. On trach shield and BiPAP as needed on trach. PEG feeds with no significant residuals. 11/05: Patient is still unresponsive. Pupils reactive to light and accommodation. No meaningful movements. Actively posturing at bed side. Has peg feeding at 45cc/hr. Trach shield at 8L and BIPAP PRN at 35%. There is an open wound at the site of the peg insertion. Wound care, Dr. Cristobal is consulted. 11/04: Patient is still unresponsive. Pupils reactive to light and accommodation. Actively posturing at bedside. No meaningful movements. Has peg feeding at 45cc/hr. Trach shield at 8L and BIPAP PRN at 35%. 11/03: Patient seen and examined. Discussed with RN and pediatric social worker. Chart reviewed. Patient is still unresponsive. Actively decorticate posturing at bedside. Eyes rolled upward. No meaningful movements. Has peg feeding at 45cc/hr. The bleeding at the peg insertion site has stopped. 11/02: Patient seen and examined. Chart reviewd. Discussed with RN and pediatric social worker. Patient is still unresponsive. No meaningful movements. Actively decorticate posturing at bedside. Has peg feeding running at 45cc/hr. Some bleeding at the peg insertion site. 11/01: Patient seen and examined. Discussed with pediatric social worker and RN. Patient is still unresponsive. No meaningful movements. Peg feeding is running at 45cc/hr. Patient is actively posturing at bed side. Trach shield at 8L and BIPAP PRN at 35%. 10/31: Patient seen and examined. Chart reviewed. Discussed with pediatric social worker and RN. Patient still unresponsive. Patient actively posturing at bed side. Has peg running at 45cc/hr. Vestibulo-ocular reflex intact. 10/30: Patient seen and examined. Discussed with pediatric social worker and RN. Chart reviewed. Patient actively posturing at bed side. Has peg running at 45cc/hr. Mr Andrews is a 70-year-old male with a recent prolonged hospitalization for STEMI and respiratory failure for which she was treated with arterial thrombolysis for a right leg popliteal artery aneurysm and also had left heart cath with placement of a stent in the LAD and RCA comes in today after he was found obtund[facility]. Apparently according to the nursing facility patient was in his usual state of health and he was conversational but then became altered. His blood glucose was found to be in the 30s. Glucose tabs and glucagon was given in route and his GCS reported at 6. Upon arrival patient's mental status did not improve and he was eventually intubated for airway protection. Of note EMS was bagging the patient through the nasal access. In the ED, patient was placed on a vent and pulmonology was consulted. Patient was also taken to the CT scanner for sanders scanning. Patient was started to wake up on the vent and sedation was ordered. 09/23: Patient examined at bedside. Intubated. Not on any sedation but unresponsive. Neurology consult in place. 09/24: Patient seen and examined at bedside. Remains intubated he is off sedation but still remains unresponsive. Planning for MRI brain in the morning. Further plan to be determined by MRI. 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 09/25: Afebrile, currently breathing on ventilator with FiO2 50%, PEEP 5. Had CODE BLUE in ICU this morning; received 2 rounds of CPR, epinephrine, and atropine with ROSC. MRI brain negative. Made DNR, and after discussion with Dr. Rubalcava he agrees. 09/26:: Afebrile. Still on vent, with FiO2 45%, PEEP 5. After discussion with Dr. Rubalcava yesterday, patient was made DNR. In the ED is likely a poor candidate for weaning trials may need trach in near future if no significant improvement. 09/27:: Afebrile. On vent with FiO2 40%, PEEP 5. Potassium 2.8 today, will replace. Warfarin has been resumed. Discussed with pharmacy, will resume aspirin and Plavix. May need tracheostomy by the end of the week if no improv ement in mental status. 09/28:: Afebrile. On ventilator with FiO2 40%, PEEP 5. Warfarin has been resumed; INR 1.3 today. Some morning labs still pending; hemoglobin yesterday 7.3, will continue to monitor. Continue IV cefepime and supportive care. 09/29: Afebrile. Breathing on vent with FiO2 40%, PEEP 5. INR 1.2 today; pharmacy to help with warfarin dosing. White count within normal range, renal function stable. Spoke with pharmacy about cefepime 1 g every 8 hours dosing; this has been changed to cefepime 2 g every 8 hours. 09/30: Afebrile. Currently breathing on vent with FiO2 40%, PEEP 5. Continue antibiotics, cefepime 2 g every 8 hours. INR 1.4; continue warfarin dosing per pharmacy. Possible tracheostomy at some point. Critical care time 30 minutes reviewing charts, labs, examination, discussion with RN. 10/01: T-max 100.3 F. On ventilator with FiO2 40%, PEEP 5. Continue antibiotics, cefepime 2 g every 8 hours. INR 1.4, still subtherapeutic; continue warfarin dosing per pharmacy. Possible tracheostomy at some point. 10/02: No acute events overnight. Patient saturating 99% on vent settings of 10/450/40/5. Patient will likely need a trach and PEG at some point. We will hold warfarin and start 2 units PRBC transfusion. Patient's chart, labs, images were reviewed and discussed with RN 10/03: No acute events overnight. Patient sat 100% on minimal vent settings. No sedation at this point and patient is opening his eyes spontaneously. Not much response or spontaneous movements. Surgery has been consulted for tracheostomy. Patient will also likely need a PEG tube. 10/04: No acute events overnight. Patient saturating 90% on minimal vent settings. T-max 100.4 overnight. Plan for trach tomorrow with surgery. Patient's chart, labs, images were reviewed and discussed with RN 10/05: No acute events overnight. Patient saturating 99% on minimal vent settings. Plan for tracheostomy today. Consent is provided by authorization by 2 physicians due to patient having no close relatives or DPOA. Will resume heparin and warfarin bridging tomorrow after tracheostomy 10/07: No acute events overnight. Patient seen and examined bedside. On trach vent. Saturating 99%. Pending GI evaluation for possible PEG placement after discussing with cardiology whether to continue with Plavix. Possibly place PEG if patient is only on aspirin and stopping argatroban. 10/08: No acute events overnight. Patient continues to be on trach mechanical vent. Saturating 100%. Pending decision from GI whether to proceed with PEG pl acement depending on the type of anticoagulation patient will be on. 10/09: No overnight events. On trach with vent support 40% FiO2 PEEP of 5. Currently argatroban and propofol for minimal sedation. When sedation is weaned he has no meaningful movements but has pulled at his tracheostomy site. Unable to hold plavix due to recently placed stents. 10/10: Afebrile today. On trach with vent support 40% FiO2 PEEP of 5. Continue argatroban and changed to Aggrastat in anticipation of surgical consultation for potential laparoscopic PEG placement. INR 1.6. Hb greater than 9 no significant neurologic recovery today. 10/11: Afebrile. On trach with vent support 40% FiO2 PEEP of 5. INR 1.8. Not making meaningful eye contact. Labs otherwise stable. 10/12: Afebrile. Trach with vent support 40% FiO2 PEEP five O2 saturations 92%. INR 1.8, mag 1.8, Hb 8.4. Not following commands. Tentative plans for surgical PEG next week. 10/13: Afebrile. Trach with vent support 40% FiO2 PEEP 5. Eyes open, not tracking or following commands. Holding Plavix. On argatroban. 10/14: Afebrile. Trach with vent support 40% FiO2 PEEP of 5. Will open eyes intermittently not necessarily to voice. Good urine output. Labs stable. 10/15: Afebrile overnight. Trach with vent AC 40% fio2 PEEP 5. Had a very large bowel movement. Still not tracking. Hb 9, INR 1.7, glucose 144. Tentative plan for PEG 10/18/2020 CC time 30 minutes 10/16/20: Patient seen and examined in the ICU. He was resting and still on vent via trach. Has NG running via Dobhoff, feeding at 40cc/hr. AC/10/450/40% plus 5 PEEP. Discussed with RN. Chart reviewed. 10/17/20: Patient was seen and examined in the ICU today. Still on vent via trach at AC/10/450/40 plus 5 PEEP. While examined, patient was at 100% O2 saturation. Has SCDs on for DVT prophylaxis. Stauffer catheter in place. On IV argatroban. R subclavian triple lumen in place. Dobhoff running at 40cc/hr. Discussed with RN. Chart reviewed. 10/18/20: Patient seen and examined in ICU. His eyes are open. On vent via trach with settings that were recently changed to spontaneous respirations with FiO2 of 40 and 5 PEEP. Trach is clean and dry. Currently, oxygen saturation is at 100%. Stauffer to bedside and rectal bag in place. Discussed with RN. Chart reviewed. 10/19/20: Patient was seen and examined in the ICU today. His eyes were open and he was resting. On BiPAP via trach AVAPS/10/450/40 plus 5 PEEP. Trach is clean and dry. Has SCDs for DVT prophylaxis. Patient has rectal bag, Stauffer to bedside, and NG tube in place. Discussed with RN. Chart reviewed. 10/20/20 No acute events overnight. Patient seen and examined bedside. Transferred from the ICU. Continues to be nonverbal and not following much commands. Opens eyes to voice. Currently on BiPAP via trach on AVAPS setting 10/450/40 PEEP of 5. Trach site is clear. No signs of infections. Patient's chart, labs, images were reviewed and discussed with RN 10/21/2020 No acute events overnight. Patient seen and examined bedside. Afebrile. Continues to be nonverbal but opens eyes to voice. Currently on BiPAP. Patient's chart, labs, images were reviewed and discussed with RN. 10/22/2020 No acute events overnight. Patient seen examined bedside. Continue with argatroban until warfarin goal INR of 4 and maintenance goal of 2-3. Please see winchman/crane operator note. Pending appointing a legal guardian. Patient's chart, labs, images were reviewed and discussed with RN 10/23/2020 laparoscopic gastrostomy tube placement (specifically 24 F) Oct discharge planning in place once court appointed DPOA available Acute anemia Acute metabolic, infectious encephalopathy Acute respiratory failure Healthcare associated pneumonia Acute hypoglycemia Hypokalemia Elevated troponins Severe protein malnutrition Morbid obesity AAA, 4 cm, infrarenal History of diabetes mellitus type 2 History of dyslipidemia history of hypertension Patient seen examined bedside. argatroban until warfarin goal INR of 4 and maintenance goal of 2-3. Pending appointing a legal guardian. Patient's chart, labs, images were reviewed and discussed with KARY Cardenas Enteric tube with metallic tip in the left upper quadrant likely in the stomach. 10/24/2020 doing well on trach shield on a 24-hour basis./ blood gases shows no worsening hypercapnia while on trach shield. No apneic breathing reported. laparoscopic gastrostomy tube placement (specifically 24 F) Oct discharge planning in place once court appointed DPOA available Acute anemia Acute metabolic, infectious encephalopathy Acute respiratory failure Healthcare associated pneumonia Acute hypoglycemia Hypokalemia Elevated troponins Severe protein malnutrition Morbid obesity AAA, 4 cm, infrarenal History of diabetes mellitus type 2 History of dyslipidemia history of hypertension Patient seen examined bedside. argatroban until warfarin goal INR of 4 and maintenance goal of 2-3. Pending appointing a legal guardian. Patient's chart, labs, images were reviewed and discussed with KARY Cardenas Enteric tube with metallic tip in the left upper quadrant likely in the stomach. Home on plavix and warfarin D/C INITIAL PLAN TO [facility]END[facility]/ discharge planning in place once court appointed DPOA available D/W RN 10/25/2020 doing well on trach shield on a 24-hour basis./ blood gases shows no worsening hypercapnia while on trach shield. No apneic breathing reported. laparoscopic gastrostomy tube placement (specifically 24 F) Oct discharge planning in place once court appointed DPOA available Acute anemia Acute metabolic, infectious encephalopathy Acute respiratory failure Healthcare associated pneumonia Acute hypoglycemia Hypokalemia Elevated troponins Severe protein malnutrition Morbid obesity AAA, 4 cm, infrarenal History of diabetes mellitus type 2 History of dyslipidemia history of hypertension Patient seen examined bedside. argatroban until warfarin goal INR of 4 and maintenance goal of 2-3. Pending appointing a legal guardian. Patient's chart, labs, images were reviewed and discussed with KARY Cardenas Enteric tube with metallic tip in the left upper quadrant likely in the stomach. Home on plavix and warfarin D/C INITIAL PLAN TO [facility] PENDING/ discharge planning in place once court appointed DPOA available D/W RN 10/26/2020 HGB 9.4 doing well on trach shield on a 24-hour basis./ blood gases shows no worsening hypercapnia while on trach shield. No apneic breathing reported. laparoscopic gastrostomy tube placement (specifically 24 F) Oct discharge planning in place once court appointed DPOA available Acute anemia Acute metabolic, infectious encephalopathy Acute respiratory failure Healthcare associated pneumonia Acute hypoglycemia Hypokalemia Elevated troponins Severe protein malnutrition Morbid obesity AAA, 4 cm, infrarenal History of diabetes mellitus type 2 History of dyslipidemia history of hypertension Patient seen examined bedside. argatroban until warfarin goal INR of 4 and maintenance goal of 2-3. Pending appointing a legal guardian. Patient's chart, labs, images were reviewed and discussed with KARY Cardenas Enteric tube with metallic tip in the left upper quadrant likely in the stomach. Home on plavix and warfarin D/C INITIAL PLAN TO [facility] PENDING/ discharge planning in place once court appointed DPOA available D/W RN 10/27/2020 HGB 9.4 doing well on trach shield on a 24-hour basis./ blood gases shows no worsening hypercapnia while on trach shield. No apneic breathing reported. laparoscopic gastrostomy tube placement (specifically 24 F) Oct discharge planning in place once court appointed DPOA available Acute anemia Acute metabolic, infectious encephalopathy Acute respiratory failure Healthcare associated pneumonia Acute hypoglycemia Hypokalemia Elevated troponins Severe protein malnutrition Morbid obesity AAA, 4 cm, infrarenal History of diabetes mellitus type 2 History of dyslipidemia history of hypertension Patient seen examined bedside. argatroban until warfarin goal INR of 4 and maintenance goal of 2-3. Pending appointing a legal guardian. Patient's chart, labs, images were reviewed and discussed with KARY Cardenas Enteric tube with metallic tip in the left upper quadrant likely in the stomach. Home on plavix and warfarin D/C INITIAL PLAN TO [facility] PENDING/ discharge planning in place once court appointed DPOA available D/W RN 10/28/2020 HGB 9.4 doing well on trach shield on a 24-hour basis./ blood gases shows no worsening hypercapnia while on trach shield. No apneic breathing reported. laparoscopic gastrostomy tube placement (specifically 24 F) Oct discharge planning in place once court appointed DPOA available Acute anemia Acute metabolic, infectious encephalopathy Acute respiratory failure Healthcare associated pneumonia Acute hypoglycemia Hypokalemia Elevated troponins Severe protein malnutrition Morbid obesity AAA, 4 cm, infrarenal History of diabetes mellitus type 2 History of dyslipidemia history of hypertension Patient seen examined bedside. argatroban until warfarin goal INR of 4 and maintenance goal of 2-3. Pending appointing a legal guardian. Patient's chart, labs, images were reviewed and discussed with KARY Cardenas Enteric tube with metallic tip in the left upper quadrant likely in the stomach. Home on plavix and warfarin D/C INITIAL PLAN TO [facility] PENDING/ discharge planning in place once court appointed DPOA available D/W RN Vitals/I&O Vitals/I&O: Vital Signs Date Time Temp Pulse Resp B/P (MAP) Pulse Ox O2 Delivery O2 Flow Rate FiO2 11/30/20 10:13 98.0 75 16 148/85 (106) 97 trach 8.0 98.0 I & O 11/29/20 11/29/20 11/30/20 15:00 23:00 07:00 Intake Total 100 ml 125 ml 1464 ml Output Total 0 ml 600 ml 750 ml Balance 100 ml -475 ml 714 ml Physical Exam Physical Exam: Neuro: actively posturing. Pulpils dialated but reactive to light and accomendation. Flaccidity in the lower extremity bilaterally. Equivocal Babinski. General: Alert (sleeping), mild distress, Other (actively posturing. No meaningful movements. ) Heart: Regular rate (SR), Other (distant heart sounds) Lungs: Other (Tracheostomy with trach shield. Deminished breath sounds.) Abdomen: Soft, Other (g tube in place) Extremities: No cyanosis, Other (2-3+ bilateral LE pitting edema) Skin: No rashes, No significant lesion Labs Labs: Laboratory Tests Test 11/29/20 11:42 11/29/20 16:26 11/29/20 23:34 11/30/20 05:50 Glucose (Fingerstick) 150 mg/dL (70-99) 159 mg/dL (70-99) 116 mg/dL (70-99) White Blood Count 6.1 x10^3/uL (4.0-11.0) Red Blood Count 2.38 x10^6/uL (4.30-5.70) Hemoglobin 7.5 g/dL (13.0-17.5) Hematocrit 22.4 % (39.0-53.0) Mean Corpuscular Volume 94 fL (79-100) Mean Corpuscular Hemoglobin 32 pg (25-35) Mean Corpuscular Hemoglobin Concent 34 g/dL (31-37) Red Cell Distribution Width 16.8 % (11.5-14.5) Platelet Count 338 x10^3/uL (140-400) Neutrophils (%) (Auto) 51 % (31-73) Lymphocytes (%) (Auto) 36 % (24-48) Monocytes (%) (Auto) 7 % (0-9) Eosinophils (%) (Auto) 5 % (0-3) Basophils (%) (Auto) 1 % (0-3) Neutrophils # (Auto) 3.1 x10^3/uL (1.8-7.7) Lymphocytes # (Auto) 2.2 x10^3/uL (1.0-4.8) Monocytes # (Auto) 0.5 x10^3/uL (0.0-1.1) Eosinophils # (Auto) 0.3 x10^3/uL (0.0-0.7) Basophils # (Auto) 0.0 x10^3/uL (0.0-0.2) Prothrombin Time 28.5 SEC (11.7-14.0) Prothromb Time International Ratio 2.7 (0.8-1.1) Sodium Level 139 mmol/L (136-145) Potassium Level 4.1 mmol/L (3.5-5.1) Chloride Level 100 mmol/L (98-107) Carbon Dioxide Level 33 mmol/L (21-32) Anion Gap 6 (6-14) Blood Urea Nitrogen 24 mg/dL (8-26) Creatinine 1.0 mg/dL (0.7-1.3) Estimated GFR (Cockcroft-Gault) 73.5 Glucose Level 121 mg/dL (70-99) Calcium Level 8.7 mg/dL (8.5-10.1) Review of Systems Review of Systems: ROS Negative Assessment and Plan Assessmemt and Plan Problems Medical Problems: (1) NSTEMI (non-ST elevated myocardial infarction) Status: Acute (2) Obtundation Status: Acute (3) Respiratory arrest Status: Acute Acute anemia Acute metabolic, infectious encephalopathy Acute hypoxic respiratory failure Healthcare associated pneumonia Acute hypoglycemia Hypokalemia Elevated troponins Severe protein malnutrition Morbid obesity AAA, 4 cm, infrarenal History of diabetes mellitus type 2 History of dyslipidemia history of hypertension History of recent STEMI History of CAD History of peripheral artery disease History of JEANNE History of CVA History of paroxysmal atrial fibrillation Ischemic cardiomyopathy Plan: - Continue RT and PEG Feed - BIPAP PRN - Wound Care - Continue home medications - DVT Prophylaxis - Continue to check labs - Discharge, disposition pending FULL CODE Comment Review of Relevant I have reviewed the following items denise (where applicable) has been applied. Justifications for Admission Other Justification Hypoglycemia and altered mental status. MANNY THOMASON III DO Nov 30, 2020 11:30
--- NOTE | 2020-11-30 13:18 | NUR ---
SS following up with discharge planning. SS reviewed pt chart and discussed with pt RN. Pt is currently on trach collar at eight liters and 33%. G tube in place. Pt on IV Lasix. COVID19 negative. Currently awaiting finalized Guardianship papers at this time. [facility] denied pt for LTACH. Appeal in process. Pt is Full Code per family request. SS will continue to follow for discharge planning.
[2020-11-30 14:22] VITALS: BP 111/66
[2020-11-30] MEDS ORDERED: WARFARIN 3 MG TABLET. PO ONE (16:00)
[2020-11-30 18:07] VITALS: BP 131/73
[2020-11-30] MEDS: ATORVASTATIN CALCIUM 40 MG TABLET. PO SCH (22:32)
[2020-11-30 22:41] VITALS: BP 135/77
[2020-12-01] VITALS (26 sets, daily range): BP systolic 78–149; BP diastolic 47–88
--- NOTE | 2020-12-01 02:13 | NUR ---
Pt became unresponsive and was asystole on telemetry. Code blue was activated, response from ER, ICU, RT at bedside. Pt received one dose of 1mg epinepherine IV, pt achieved ROSC at second pulse check. Pt to be transferred to ICU, bed 105, message left on anabel rodriguez voice mail.
--- NOTE | 2020-12-01 02:20 | PHYS DOC ---
CODE REPORT CODE REPORT Code Blue Note 70-year-old male with history of tracheostomy for whom a Code Herrera was called for cardiopulmonary resuscitation. Per available history at the time, the patient became pulseless and was found to be in asystole when CPR was initiated Down time prior to ACLS initiation is unclear. Patient had been coding for a pproximately 3 minutes prior to my arrival. 1 mg of epinephrine had been given Exam: General: unresponsive. No sign of trauma. Respiratory: Tracheostomy tube in place, patient bagging easily Cardiovascular: 2+ tachycardic femoral pulse felt upon first pulse check Extremities: No signs of trauma. Skin: Intact. Neuro: Pupils are 4 mm. MDM: Initial rhythm: Sinus tachycardia CPR performed per ACLS protocol under my guidance. The patient received appropriate ACLS measures and these were repeated as necessary throughout the resuscitation. Patient had tracheostomy in place and was ventilated, and oxygentated. Upon the first pulse check after I arrived, the patient had a strong femoral pulse. EKG was ordered and to be followed by inpatient service. William Marr, Emergency Medicine WILLIAM MARR DO Dec 01, 2020 02:20
--- NOTE | 2020-12-01 02:20 | NUR ---
DIONI MCKEON CALLED OVERHEAD. RESPONDED AND BAGGED PT DURING RESUSCITATION, AND PLACED BACK ON V60 AFTER ROSC. TRANSPORTED TO ICU ON V60 AND PLACED ON 840 WITH A/C SETTINGS PER DR MACHADO.
--- NOTE | 2020-12-01 02:26 | EKG ---
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
--- NOTE | 2020-12-01 02:35 | NUR ---
Pt was admitted to ICU post code blue from 6th floor. ABG's on arrival to icu unremarkable, Dr Jean notified of pt's condition post code, vent settings communicated to RT.
[2020-12-01 03:06] LABS: BASE EXCESS ABG 0 mmol/L (-3-3); HCO3 ABG 24 mmol/L (21-28); PCO2 ABG 37 mmHg (35-46); PO2 ABG 68 mmHg (65-108); SAT O2 ABG 91 % (92-99)
[2020-12-01 04:20] LABS: FIO2 ABG 35
[2020-12-01] MEDS: INSULIN LISPRO 300 UNITS/3 ML VIAL. SQ SCH ×4 (06:00→17:32)
[2020-12-01 06:11] LABS: BASO % 0 % (0-3); CALCIUM 8.5 mg/dL (8.5-10.1); CREATININE 1.1 mg/dL (0.7-1.3); EOS # 0.1 x10^3/uL (0.0-0.7); EOS % 1 % (0-3); GFR 65.8; HEMATOCRIT 23.5 % (39.0-53.0); HEMOGLOBIN 7.7 g/dL (13.0-17.5); LYMPH # 1.1 x10^3/uL (1.0-4.8); LYMPH % 13 % (24-48); MEAN CORPUSCULAR HEMOGLOBIN 31 pg (25-35); MEAN CORPUSCULAR HGB CONC 33 g/dL (31-37); MEAN CORPUSCULAR VOLUME 95 fL (79-100); MONO # 0.5 x10^3/uL (0.0-1.1); MONO % 6 % (0-9); NEUT # 6.7 x10^3/uL (1.8-7.7); NEUT % 80 % (31-73); PLATELET COUNT 351 x10^3/uL (140-400); POTASSIUM 4.1 mmol/L (3.5-5.1); RED BLOOD COUNT 2.48 x10^6/uL (4.30-5.70); RED CELL DISTRIBUTION WIDTH 16.6 % (11.5-14.5); WHITE BLOOD COUNT 8.3 x10^3/uL (4.0-11.0)
[2020-12-01 06:14] LABS: PROTHROMBIN TIME PATIENT 20.9 SEC (11.7-14.0)
[2020-12-01 07:32] LABS: BASE EXCESS ABG 4 mmol/L (-3-3); HCO3 ABG 27 mmol/L (21-28); PCO2 ABG 36 mmHg (35-46); PO2 ABG 111 mmHg (65-108); SAT O2 ABG 98 % (92-99)
[2020-12-01 07:45] LABS: FIO2 ABG 40
[2020-12-01] MEDS: ASPIRIN CHEWABLE 81 MG TABLET. PO SCH (08:57)
[2020-12-01] MEDS: CLOPIDOGREL BISULFATE 75 MG TABLET PO SCH (08:57)
[2020-12-01] MEDS: METOPROLOL TART IMMED RELEASE 25 MG TABLET. PO SCH ×2 (09:00→21:30)
[2020-12-01] MEDS: LANSOPRAZOLE 30 MG TAB.RAP.DR FT SCH (09:08)
[2020-12-01] MEDS: FUROSEMIDE 40 MG/4 ML VIAL. IVP SCH (09:08)
[2020-12-01] MEDS: POTASSIUM BICARB 20 MEQ EFFERVESCENT TABLET. PEG SCH (09:09)
[2020-12-01] MEDS: DOCUSATE 100 MG/10 ML SOLUTION. PO SCH (09:09)
[2020-12-01] MEDS: AMIODARONE HCL 200 MG TABLET. PO SCH (09:09)
--- NOTE | 2020-12-01 10:00 | PDOC ---
PULMONARY PROGRESS NOTES DATE: 12/01/20 TIME: 09:56 Subjective Patient last night transferred to the intensive care unit, after mucous plugging, CPR was initiated for approximately 3 minutes Patient currently on assist control, awake but follows no commands. Vitals Vital Signs Date Time Temp Pulse Resp B/P (MAP) Pulse Ox O2 Delivery O2 Flow Rate FiO2 12/01/20 09:23 100 Ventilator 12/01/20 09:09 101 87/66 12/01/20 09:00 18 12/01/20 08:00 98.0 98.0 12/01/20 03:00 8.0 General: No acute distress HEENT: Other (nc at perrl nose clear orally intubated neck no lad no t hyromegaly) Lungs: Clear Cardiovascular: S1, S2 Abdomen: Soft, Non-tender, Other (Obese) Extremities: Other (1+ edema) Skin: Warm Labs Laboratory Tests Test 11/29/20 11:42 11/29/20 16:26 11/29/20 23:34 11/30/20 05:50 Glucose (Fingerstick) 150 mg/dL (70-99) 159 mg/dL (70-99) 116 mg/dL (70-99) White Blood Count 6.1 x10^3/uL (4.0-11.0) Red Blood Count 2.38 x10^6/uL (4.30-5.70) Hemoglobin 7.5 g/dL (13.0-17.5) Hematocrit 22.4 % (39.0-53.0) Mean Corpuscular Volume 94 fL (79-100) Mean Corpuscular Hemoglobin 32 pg (25-35) Mean Corpuscular Hemoglobin Concent 34 g/dL (31-37) Red Cell Distribution Width 16.8 % (11.5-14.5) Platelet Count 338 x10^3/uL (140-400) Neutrophils (%) (Auto) 51 % (31-73) Lymphocytes (%) (Auto) 36 % (24-48) Monocytes (%) (Auto) 7 % (0-9) Eosinophils (%) (Auto) 5 % (0-3) Basophils (%) (Auto) 1 % (0-3) Neutrophils # (Auto) 3.1 x10^3/uL (1.8-7.7) Lymphocytes # (Auto) 2.2 x10^3/uL (1.0-4.8) Monocytes # (Auto) 0.5 x10^3/uL (0.0-1.1) Eosinophils # (Auto) 0.3 x10^3/uL (0.0-0.7) Basophils # (Auto) 0.0 x10^3/uL (0.0-0.2) Prothrombin Time 28.5 SEC (11.7-14.0) Prothromb Time International Ratio 2.7 (0.8-1.1) Sodium Level 139 mmol/L (136-145) Potassium Level 4.1 mmol/L (3.5-5.1) Chloride Level 100 mmol/L (98-107) Carbon Dioxide Level 33 mmol/L (21-32) Anion Gap 6 (6-14) Blood Urea Nitrogen 24 mg/dL (8-26) Creatinine 1.0 mg/dL (0.7-1.3) Estimated GFR (Cockcroft-Gault) 73.5 Glucose Level 121 mg/dL (70-99) Calcium Level 8.7 mg/dL (8.5-10.1) Test 11/30/20 11:51 11/30/20 17:12 12/01/20 02:23 12/01/20 02:39 Glucose (Fingerstick) 139 mg/dL (70-99) 146 mg/dL (70-99) 200 mg/dL (70-99) O2 Saturation 91 % (92-99) Arterial Blood pH 7.44 (7.35-7.45) Arterial Blood pCO2 at Patient Temp 37 mmHg (35-46) Arterial Blood pO2 at Patient Temp 68 mmHg (65-108) Arterial Blood HCO3 24 mmol/L (21-28) Arterial Blood Base Excess 0 mmol/L (-3-3) FiO2 35 Test 12/01/20 05:45 12/01/20 07:30 White Blood Count 8.3 x10^3/uL (4.0-11.0) Red Blood Count 2.48 x10^6/uL (4.30-5.70) Hemoglobin 7.7 g/dL (13.0-17.5) Hematocrit 23.5 % (39.0-53.0) Mean Corpuscular Volume 95 fL (79-100) Mean Corpuscular Hemoglobin 31 pg (25-35) Mean Corpuscular Hemoglobin Concent 33 g/dL (31-37) Red Cell Distribution Width 16.6 % (11.5-14.5) Platelet Count 351 x10^3/uL (140-400) Neutrophils (%) (Auto) 80 % (31-73) Lymphocytes (%) (Auto) 13 % (24-48) Monocytes (%) (Auto) 6 % (0-9) Eosinophils (%) (Auto) 1 % (0-3) Basophils (%) (Auto) 0 % (0-3) Neutrophils # (Auto) 6.7 x10^3/uL (1.8-7.7) Lymphocytes # (Auto) 1.1 x10^3/uL (1.0-4.8) Monocytes # (Auto) 0.5 x10^3/uL (0.0-1.1) Eosinophils # (Auto) 0.1 x10^3/uL (0.0-0.7) Basophils # (Auto) 0.0 x10^3/uL (0.0-0.2) Prothrombin Time 20.9 SEC (11.7-14.0) Prothromb Time International Ratio 1.8 (0.8-1.1) Sodium Level 139 mmol/L (136-145) Potassium Level 4.1 mmol/L (3.5-5.1) Chloride Level 101 mmol/L (98-107) Carbon Dioxide Level 29 mmol/L (21-32) Anion Gap 9 (6-14) Blood Urea Nitrogen 25 mg/dL (8-26) Creatinine 1.1 mg/dL (0.7-1.3) Estimated GFR (Cockcroft-Gault) 65.8 Glucose Level 136 mg/dL (70-99) Calcium Level 8.5 mg/dL (8.5-10.1) O2 Saturation 98 % (92-99) Arterial Blood pH 7.50 (7.35-7.45) Arterial Blood pCO2 at Patient Temp 36 mmHg (35-46) Arterial Blood pO2 at Patient Temp 111 mmHg (65-108) Arterial Blood HCO3 27 mmol/L (21-28) Arterial Blood Base Excess 4 mmol/L (-3-3) FiO2 40 Laboratory Tests Test 11/30/20 11:51 11/30/20 17:12 12/01/20 02:23 12/01/20 02:39 Glucose (Fingerstick) 139 mg/dL (70-99) 146 mg/dL (70-99) 200 mg/dL (70-99) O2 Saturation 91 % (92-99) Arterial Blood pH 7.44 (7.35-7.45) Arterial Blood pCO2 at Patient Temp 37 mmHg (35-46) Arterial Blood pO2 at Patient Temp 68 mmHg (65-108) Arterial Blood HCO3 24 mmol/L (21-28) Arterial Blood Base Excess 0 mmol/L (-3-3) FiO2 35 Test 12/01/20 05:45 12/01/20 07:30 White Blood Count 8.3 x10^3/uL (4.0-11.0) Red Blood Count 2.48 x10^6/uL (4.30-5.70) Hemoglobin 7.7 g/dL (13.0-17.5) Hematocrit 23.5 % (39.0-53.0) Mean Corpuscular Volume 95 fL (79-100) Mean Corpuscular Hemoglobin 31 pg (25-35) Mean Corpuscular Hemoglobin Concent 33 g/dL (31-37) Red Cell Distribution Width 16.6 % (11.5-14.5) Platelet Count 351 x10^3/uL (140-400) Neutrophils (%) (Auto) 80 % (31-73) Lymphocytes (%) (Auto) 13 % (24-48) Monocytes (%) (Auto) 6 % (0-9) Eosinophils (%) (Auto) 1 % (0-3) Basophils (%) (Auto) 0 % (0-3) Neutrophils # (Auto) 6.7 x10^3/uL (1.8-7.7) Lymphocytes # (Auto) 1.1 x10^3/uL (1.0-4.8) Monocytes # (Auto) 0.5 x10^3/uL (0.0-1.1) Eosinophils # (Auto) 0.1 x10^3/uL (0.0-0.7) Basophils # (Auto) 0.0 x10^3/uL (0.0-0.2) Prothrombin Time 20.9 SEC (11.7-14.0) Prothromb Time International Ratio 1.8 (0.8-1.1) Sodium Level 139 mmol/L (136-145) Potassium Level 4.1 mmol/L (3.5-5.1) Chloride Level 101 mmol/L (98-107) Carbon Dioxide Level 29 mmol/L (21-32) Anion Gap 9 (6-14) Blood Urea Nitrogen 25 mg/dL (8-26) Creatinine 1.1 mg/dL (0.7-1.3) Estimated GFR (Cockcroft-Gault) 65.8 Glucose Level 136 mg/dL (70-99) Calcium Level 8.5 mg/dL (8.5-10.1) O2 Saturation 98 % (92-99) Arterial Blood pH 7.50 (7.35-7.45) Arterial Blood pCO2 at Patient Temp 36 mmHg (35-46) Arterial Blood pO2 at Patient Temp 111 mmHg (65-108) Arterial Blood HCO3 27 mmol/L (21-28) Arterial Blood Base Excess 4 mmol/L (-3-3) FiO2 40 Medications Active Scripts Medications Dose Route/Sig Max Daily Dose Days Date Category Amiodarone Hcl 200 Mg Tablet 400 Mg PO DAILY 09/18/20 Rx [Warfarin Per Pharmacy] 1 EACH Each 1 Each MC PRN DAILY PRN 30 09/18/20 Rx Clopidogrel (Clopidogrel Bisulfate) 75 Mg Tablet 75 Mg PO DAILYWBKFT 09/18/20 Rx Glimepiride 4 Mg Tablet 1 Tab PO DAILY 09/13/20 Reported Furosemide 40 Mg Tablet 1 Tab PO BID 09/13/20 Reported Symbicort 160-4.5 Mcg Inhaler (Budesonide/Formoterol Fumarate) 10.2 Gm Hfa.aer.ad 1 Puff INH DAILY 09/13/20 Reported Losartan-Hctz 100-12.5 Mg Tab (Losartan/Hydrochlorothiazide) 1 Each Tablet 1 Tab PO DAILY 09/13/20 Reported Nitrofurantoin [place]oto-Mcr 100 Mg (Nitrofurantoin Monohyd/M-Cryst) 100 Mg Capsule 1 Cap PO BID 09/13/20 Reported Betamethasone Valerate 60 Ml Lotion 1 TP QHS 09/13/20 Reported Atorvastatin Calcium 40 Mg Tablet 1 Tab PO DAILY 09/13/20 Reported Diltiazem 24Hr Cd (Diltiazem HCl) 240 Mg Cap.er.24h 1 Cap PO DAILY 09/13/20 Reported Nystop (Nystatin) 60 Gm Powder 1 Sudheer TP BID 09/13/20 Reported Humalog (Insulin Lispro) 100 Unit/1 Ml Insuln.pen 0 Units SQ TIDWMEALS 08/06/18 Rx Duoneb 0.5-3(2.5) Mg/3 Ml (Albuterol/Ipratropium) 3 Ml Ampul.neb 3 Ml NEB RTQID 08/06/18 Rx Aspirin 325 Mg Tablet 325 Mg PO DAILYWBKFT 07/22/17 Rx Metoprolol Tartrate 25 Mg Tablet 25 Mg PO BID 07/22/17 Rx Montelukast Sodium Tablet (Montelukast Sodium) 10 Mg Tablet 10 Mg PO QHS 07/22/17 Rx Gabapentin 600 Mg Tablet 600 Mg PO BID 07/22/17 Rx Pepcid (Famotidine) 20 Mg Tablet 20 Mg PO BID 05/17/13 Reported Impression . 1. Acute on chronic respiratory failure secondary to multifactorial 2. History of sepsis, resolved 3. Hypoglycemia./ encephalopathy 4. The patient with prior history of cerebrovascular accident with left-sided weakness. 5. Underlying chronic obstructive pulmonary disease. 6. Morbid obesity. 7. Peripheral vascular disease. 8. Status post CODE BLUE, secondary to mucous plugging, 11/30, Plan . Updated 12/01 Niece at the bedside, updated her on current condition I took the patient off assist-control, he was breathing on his own, no evidence of respiratory distress Lengthy discussion with niece at the bedside, I recommend discontinuing assist-c ontrol ventilation, providing oxygen through the trach shield, I recommend patient be made DNR She will think about it Repeat chest x-ray Court to assign DPOA Updated 10/27 Patient is doing well on trach shield on a 24-hour basis. We will continue trach shield Status post gastrostomy tube Long-term prognosis poor Discussed with social service, discharge planning in place once court appointed DPOA available Discussed with RN Pulmonary status is stable. Updated 10/25 Patient is doing well on trach shield on a 24-hour basis. RT blood gases shows no worsening hypercapnia while on trach shield. No apneic breathing reported. I discussed with respiratory therapist. We will continue continue trach shield Status post gastrostomy tube Long-term prognosis poor Discussed with social service, discharge planning in place once court appointed DPOA available Discussed with RN Pulmonary status is stable. We will see him as needed HELENA MACHADO MD Dec 01, 2020 10:00
--- NOTE | 2020-12-01 11:58 | RAD ---
XR CHEST 1V History: Reason: rf / Spl. Instructions: / History: Comparison: September 27, 2020 Findings: Interval placement tracheostomy tube. Stable right IJ central line. Mild linear ill-defined bibasilar opacities, decreased on the left compared to prior. No pleural effusion. No pneumothorax. Unchanged enlarged cardiac size. Impression: 1. Mild linear and ill-defined bibasilar opacities, likely atelectasis. Electronically signed by: Davin Barakat DO (12/01/2020 11:55 AM) [id number]
--- NOTE | 2020-12-01 11:59 | PDOC ---
[employer] PROGRESS NOTE Date of Service DOS: DATE: 12/01/20 TIME: 11:56 Chief Complaint Chief Complaint Acute anemia Acute metabolic, infectious encephalopathy Acute hypoxic respiratory failure Healthcare associated pneumonia Acute hypoglycemia Hypokalemia Elevated troponins Severe protein malnutrition Morbid obesity AAA, 4 cm, infrarenal History of diabetes mellitus type 2 History of dyslipidemia history of hypertension History of recent STEMI History of CAD History of peripheral artery disease History of JEANNE History of CVA History of paroxysmal atrial fibrillation Ischemic cardiomyopathy History of Present Illness History of Present Illness 12/01/2020 Patient had a CODE BLUE last night that resulted him to be transferred to the ICU. Patient responded in bag during resuscitation and achieved ROSC. Placement was placed on the vent. Niece was in the bedroom as this was the only patient's family member that had any any close contact or meaningful discussion about his quality of life or CODE STATUS. At this point niece would like to keep him full code until she sorts things out, but ultimately deep in her heart she said that she wants to make him DNR. Patient's chart, labs, images were reviewed and discussed with RN In addition to my E/M visit, advance care planning done with A total time of 20 minutes was spent from 9:00 to 920 face to face in discussion with the patient's niece regarding the patient's goals of care and CODE STATUS. 11/30: Pt was seen, examined, and their chart was reviewed. Pt is still on PEG feed with 6L of humidified O2. Discharge, disposition pending Discussed with RN and SW. 11/29: Pt was seen, examined, and their chart was reviewed. Pt is still on PEG feed with AVAPS at 35% FiO2. Discharge, pending disposition. Discussed with RN and SW. 11/28: Pt was seen, examined, and their chart was reviewed. Pt is still on PEG feed with Tracheostomy Shield. Discharge, pending disposition. Discussed with RN and SW. 11/27: Patient was seen and examined. Kangaroo pump is set at 45 cc and hour. Tracheostomy Shield set at 33% FiO2. Discussed with RN and SW. Pts chart was reviewed. 11/26: Afebrile, on 8 L trach collar. No changes overnight. Guardianship papers signed by anabel and faxed to the state's attorney managing this case. Patient has been accepted at [facility]. 10/16: Afebrile, on 8 L trach collar. Still with some relative hypotension, BP 92/50 mmHg. As needed normal saline boluses. He will need guardianship for placement to LTAC, and patient's niece requesting to be proposed guardians at this time. Signed paperwork was faxed to the state's attorney managing this case. Patient has been accepted at [facility]. 11/24: Afebrile, 8 L on trach collar. Dressings to right elbow change, appear to have obtained hemostasis. Accepted at [facility], pending insurance authorization. 11/23: Afebrile, on trach collar is a clear. Niece present at bedside and updated her on patient's clinical course and likely poor prognosis of recovery. Some bleeding from right olecranon process secondary to irritated scab. Given the fact that patient is on blood thinners, if unable to control with compression may need to hold warfarin temporarily until hemostasis can be obtained. Accepted at [facility], pending insurance autho rization. 11/22: No acute change overnight. On trach collar 8 L. Guardianship papers were signed yesterday by niece. Patient has been accepted to [facility], pending insurance authorization. 11/21: Afebrile. Tolerated trach shield with BiPAP overnight. Guardianship papers to be signed today by patient's niece. Transfer to LTAC at [facility] in the near future pending insurance authorization. 11/20: Afebrile, on trach collar 8 L. Patient's niece is applying for jeanette nship prior to transfer to [facility] at [facility]. She has decided to make patient full code. Anticipate transfer to LTAC in near future. RN discussed with patient's niece, she would like his CODE STATUS to be full code. I agree with Dr. Ennis, no prognosis for meaningful recovery. Discussed with niece (Casandradirk Andrews) by phone about poor prognosis and goals of care; she reiterates that she would like him to still be full code at this time. 11/19 Patient evaluated and examined at bedside. He was on the trach collar at 8. Informed patient's niece today that really only thing waiting on now is guardianship to be approved. Hopeful for that to happen in the coming week. Otherwise continue to monitor respiratory status. No major neurologic changes. Plan of care discussed with bedside RN. 11/18 On trach collar when being seen. Still with minimal neurologic status. Once social issues sorted out well discharge. 11/17 Patient evaluated and examined at bedside. He was tolerating being on the trach collar when seen. No change in neurologic status really. I have written a letter to send to the local structural biologist with my support for his need of a guardian. 11/16 Patient evaluated and examined at bedside. Patient's niece at bedside discussed case at length with her and ongoing plan. He does present as movement in his upper extremities today. He did open his eyes to his niece's voice earlier. Continue current plan of care. 11/15 Patient evaluated and examined at bedside. Remains minimally responsive. He is discharged ready. Just waiting for social issues to be sorted out. Possible discharge 11/14: No sort of clinical change overnight. Remains encephalopathic. Can discharge whenever guardianship and social issues mediated. 11/13: Afebrile. Still no meaningful response to any sort of interaction. Remains on trach. PEG tube. Complicated social situation. Afebrile. BP a little up today. Continues to remain encephalopathic off sedation requiring 8 L trach shield O2 with O2 saturations 91%. Tolerating PEG feeds with free water boluses. INR 2.8. Discussed with anabel Guajardo she is reaching out to the rest of the family. 11/11: Afebrile. No meaningful following of commands, opens eyes. Requires 8L trach shield O2 to maintain O2 saturations 90%. No residuals on PEG tube feeds. Discussed with anabel Guajardo bedside she is going to reach out to the rest of the family now the family has been located. 11/10: Afebrile. Continues to be encephalopathic no meaningful eye contact movements not following commands. Requiring 8 L trach shield O2 to maintain saturations 91%. No residuals on tube feeds 45 cc/h. INR 2.8. Throughout heroic efforts by social work estranged family has been found and has a niece who will be visiting sometime potentially later today or tomorrow 11/09: Afebrile. Still encephalopathic not making any meaningful eye contact or movements not following commands. Waiting for guardianship. 8 L trach shield O2. Tolerating tube feeds with no residuals 45 cc/h. INR 2.6 11/08: Afebrile. Opens eyes but no meaningful contact not following commands. Requiring 8 L trach shield O2 mask. 11/07: Not responsive to stimuli, not making eye contact. Afebrile. Seen on 8 L trach collar canula. Hb 9.1 Renal labs stable INR 3.1. 11/06: Patient not meaningfully responding well. On trach shield and BiPAP as needed on trach. PEG feeds with no significant residuals. 11/05: Patient is still unresponsive. Pupils reactive to light and accommodation. No meaningful movements. Actively posturing at bed side. Has peg feeding at 45cc/hr. Trach shield at 8L and BIPAP PRN at 35%. There is an open wound at the site of the peg insertion. Wound care, Dr. Cristobal is consulted. 11/04: Patient is still unresponsive. Pupils reactive to light and accommodation. Actively posturing at bedside. No meaningful movements. Has peg feeding at 45cc/hr. Trach shield at 8L and BIPAP PRN at 35%. 11/03: Patient seen and examined. Discussed with RN and social worker assistant. Chart reviewed. Patient is still unresponsive. Actively decorticate posturing at bedside. Eyes rolled upward. No meaningful movements. Has peg feeding at 45cc/hr. The bleeding at the peg insertion site has stopped. 11/02: Patient seen and examined. Chart reviewd. Discussed with RN and social worker assistant. Patient is still unresponsive. No meaningful movements. Actively decorticate posturing at bedside. Has peg feeding running at 45cc/hr. Some blee ding at the peg insertion site. 11/01: Patient seen and examined. Discussed with social worker assistant and RN. Patient is still unresponsive. No meaningful movements. Peg feeding is running at 45cc/hr. Patient is actively posturing at bed side. Trach shield at 8L and BIPAP PRN at 35%. 10/31: Patient seen and examined. Chart reviewed. Discussed with social worker assistant and RN. Patient still unresponsive. Patient actively posturing at bed side. Has peg running at 45cc/hr. Vestibulo-ocular reflex intact. 10/30: Patient seen and examined. Discussed with social worker assistant and RN. Chart reviewed. Patient actively posturing at bed side. Has peg running at 45cc/hr. 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 Apparently according to the nursing facility patient was in his usual state of health and he was conversational but then became altered. His blood glucose was found to be in the 30s. Glucose tabs and glucagon was given in route and his GCS reported at 6. Upon arrival patient's mental status did not improve and he was eventually intubated for airway protection. Of note EMS was bagging the patient through the nasal access. In the ED, patient was placed on a vent and pulmonology was consulted. Patient was also taken to the CT scanner for sanders scanning. Patient was started to wake up on the vent and sedation was ordered. 09/23: Patient examined at bedside. Intubated. Not on any sedation but unresponsive. Neurology consult in place. 09/24: Patient seen and examined at bedside. Remains intubated he is off sedation but still remains unresponsive. Planning for MRI brain in the morning. Further plan to be determined by MRI. 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 09/25: Afebrile, currently breathing on ventilator with FiO2 50%, PEEP 5. Had CODE BLUE in ICU this morning; received 2 rounds of CPR, epinephrine, and atropine with ROSC. MRI brain negative. Made DNR, and after discussion with Dr. Rubalcava he agrees. 09/26:: Afebrile. Still on vent, with FiO2 45%, PEEP 5. After discussion with Dr. Rubalcava yesterday, patient was made DNR. In the ED is likely a poor candidate for weaning trials may need trach in near future if no significant improvement. 09/27:: Afebrile. On vent with FiO2 40%, PEEP 5. Potassium 2.8 today, will replace. Warfarin has been resumed. Discussed with pharmacy, will resume aspirin and Plavix. May need tracheostomy by the end of the week if no improvement in mental status. 09/28:: Afebrile. On ventilator with FiO2 40%, PEEP 5. Warfarin has been resumed; INR 1.3 today. Some morning labs still pending; hemoglobin yesterday 7.3, will continue to monitor. Continue IV cefepime and supportive care. 09/29: Afebrile. Breathing on vent with FiO2 40%, PEEP 5. INR 1.2 today; pharmacy to help with warfarin dosing. White count within normal range, renal function stable. Spoke with pharmacy about cefepime 1 g every 8 hours dosing; this has been changed to cefepime 2 g every 8 hours. 09/30: Afebrile. Currently breathing on vent with FiO2 40%, PEEP 5. Continue antibiotics, cefepime 2 g every 8 hours. INR 1.4; continue warfarin dosing per pharmacy. Possible tracheostomy at some point. Critical care time 30 minutes reviewing charts, labs, examination, discussion with RN. 10/01: T-max 100.3 F. On ventilator with FiO2 40%, PEEP 5. Continue antibiotics, cefepime 2 g every 8 hours. INR 1.4, still subtherapeutic; continue warfarin dosing per pharmacy. Possible tracheostomy at some point. 10/02: No acute events overnight. Patient saturating 99% on vent settings of 10/450/40/5. Patient will likely need a trach and PEG at some point. We will hold warfarin and start 2 units PRBC transfusion. Patient's chart, labs, images were reviewed and discussed with RN 10/03: No acute events overnight. Patient sat 100% on minimal vent settings. No sedation at this point and patient is opening his eyes spontaneously. Not much response or spontaneous movements. Surgery has been consulted for tracheostomy. Patient will also likely need a PEG tube. 10/04: No acute events overnight. Patient saturating 90% on minimal vent settings. T-max 100.4 overnight. Plan for trach tomorrow with surgery. Patient's chart, labs, images were reviewed and discussed with RN 10/05: No acute events overnight. Patient saturating 99% on minimal vent settings. Plan for tracheostomy today. Consent is provided by authorization by 2 physicians due to patient having no close relatives or DPOA. Will resume heparin and warfarin bridging tomorrow after tracheostomy 10/07: No acute events overnight. Patient seen and examined bedside. On trach vent. Saturating 99%. Pending GI evaluation for possible PEG placement after discussing with cardiology whether to continue with Plavix. Possibly place PEG if patient is only on aspirin and stopping argatroban. 10/08: No acute events overnight. Patient continues to be on trach mechanical vent. Saturating 100%. Pending decision from GI whether to proceed with PEG placement depending on the type of anticoagulation patient will be on. 10/09: No overnight events. On trach with vent support 40% FiO2 PEEP of 5. Currently argatroban and propofol for minimal sedation. When sedation is weaned he has no meaningful movements but has pulled at his tracheostomy site. Unable to hold plavix due to recently placed stents. 10/10: Afebrile today. On trach with vent support 40% FiO2 PEEP of 5. Continue argatroban and changed to Aggrastat in anticipation of surgical consultation for potential laparoscopic PEG placement. INR 1.6. Hb greater than 9 no significant neurologic recovery today. 10/11: Afebrile. On trach with vent support 40% FiO2 PEEP of 5. INR 1.8. Not making meaningful eye contact. Labs otherwise stable. 10/12: Afebrile. Trach with vent support 40% FiO2 PEEP five O2 saturations 92%. INR 1.8, mag 1.8, Hb 8.4. Not following commands. Tentative plans for surgical PEG next week. 10/13: Afebrile. Trach with vent support 40% FiO2 PEEP 5. Eyes open, not tracking or following commands. Holding Plavix. On argatroban. 10/14: Afebrile. Trach with vent support 40% FiO2 PEEP of 5. Will open eyes intermittently not necessarily to voice. Good urine output. Labs stable. 10/15: Afebrile overnight. Trach with vent AC 40% fio2 PEEP 5. Had a very large bowel movement. Still not tracking. Hb 9, INR 1.7, glucose 144. Tentative plan for PEG 10/18/2020 CC time 30 minutes 10/16/20: Patient seen and examined in the ICU. He was resting and still on vent via trach. Has NG running via Dobhoff, feeding at 40cc/hr. AC/10/450/40% plus 5 PEEP. Discussed with RN. Chart reviewed. 10/17/20: Patient was seen and examined in the ICU today. Still on vent via trach at AC/10/450/40 plus 5 PEEP. While examined, patient was at 100% O2 saturation. Has SCDs on for DVT prophylaxis. Stauffer catheter in place. On IV argatroban. R subclavian triple lumen in place. Dobhoff running at 40cc/hr. Discussed with RN. Chart reviewed. 10/18/20: Patient seen and examined in ICU. His eyes are open. On vent via trach with settings that were recently changed to spontaneous respirations with FiO2 of 40 and 5 PEEP. Trach is clean and dry. Currently, oxygen saturation is at 100%. Stauffer to bedside and rectal bag in place. Discussed with RN. Chart reviewed. 10/19/20: Patient was seen and examined in the ICU today. His eyes were open and he was resting. On BiPAP via trach AVAPS/10/450/40 plus 5 PEEP. Trach is clean and dry. Has SCDs for DVT prophylaxis. Patient has rectal bag, Stauffer to bedside, and NG tube in place. Discussed with RN. Chart reviewed. 10/20/20 No acute events overnight. Patient seen and examined bedside. Transferred from the ICU. Continues to be nonverbal and not following much commands. Opens eyes to voice. Currently on BiPAP via trach on AVAPS setting 10/450/40 PEEP of 5. Trach site is clear. No signs of infections. Patient's chart, labs, images were reviewed and discussed with RN 10/21/2020 No acute events overnight. Patient seen and examined bedside. Afebrile. Continues to be nonverbal but opens eyes to voice. Currently on BiPAP. Patient's chart, labs, images were reviewed and discussed with RN. 10/22/2020 No acute events overnight. Patient seen examined bedside. Continue with argatroban until warfarin goal INR of 4 and maintenance goal of 2-3. Please see nutrition teacher note. Pending appointing a legal guardian. Patient's chart, labs, images were reviewed and discussed with RN 10/23/2020 laparoscopic gastrostomy tube placement (specifically 24 F) Oct discharge planning in place once court appointed DPOA available Acute anemia Acute metabolic, infectious encephalopathy Acute respiratory failure Healthcare associated pneumonia Acute hypoglycemia Hypokalemia Elevated troponins Severe protein malnutrition Morbid obesity AAA, 4 cm, infrarenal History of diabetes mellitus type 2 History of dyslipidemia history of hypertension Patient seen examined bedside. argatroban until warfarin goal INR of 4 and maintenance goal of 2-3. Pending appointing a legal guardian. Patient's chart, labs, images were reviewed and discussed with RN Dobhoff Enteric tube with metallic tip in the left upper quadrant likely in the stomach. 10/24/2020 doing well on trach shield on a 24-hour basis./ blood gases shows no worsening hypercapnia while on trach shield. No apneic breathing reported. laparoscopic gastrostomy tube placement (specifically 24 F) Oct discharge planning in place once court appointed DPOA available Acute anemia Acute metabolic, infectious encephalopathy Acute respiratory failure Healthcare associated pneumonia Acute hypoglycemia Hypokalemia Elevated troponins Severe protein malnutrition Morbid obesity AAA, 4 cm, infrarenal History of diabetes mellitus type 2 History of dyslipidemia history of hypertension Patient seen examined bedside. argatroban until warfarin goal INR of 4 and maintenance goal of 2-3. Pending appointing a legal guardian. Patient's chart, labs, images were reviewed and discussed with KARY Cardenas Enteric tube with metallic tip in the left upper quadrant likely in the stomach. Home on plavix and warfarin D/C INITIAL PLAN TO [place] PENDING/ discharge planning in place once court appointed DPOA available D/W RN 10/25/2020 doing well on trach shield on a 24-hour basis./ blood gases shows no worsening hypercapnia while on trach shield. No apneic breathing reported. laparoscopic gastrostomy tube placement (specifically 24 F) Oct discharge planning in place once court appointed DPOA available Acute anemia Acute metabolic, infectious encephalopathy Acute respiratory failure Healthcare associated pneumonia Acute hypoglycemia Hypokalemia Elevated troponins Severe protein malnutrition Morbid obesity AAA, 4 cm, infrarenal History of diabetes mellitus type 2 History of dyslipidemia history of hypertension Patient seen examined bedside. argatroban until warfarin goal INR of 4 and maintenance goal of 2-3. Pending appointing a legal guardian. Patient's chart, labs, images were reviewed and discussed with KARY Cardenas Enteric tube with metallic tip in the left upper quadrant likely in the stomach. Home on plavix and warfarin D/C INITIAL PLAN TO [place] [facility]END[facility]/ discharge planning in place once court appointed DPOA available D/W RN 10/26/2020 HGB 9.4 doing well on trach shield on a 24-hour basis./ blood gases shows no worsening hypercapnia while on trach shield. No apneic breathing reported. laparoscopic gastrostomy tube placement (specifically 24 F) Oct discharge planning in place once court appointed DPOA available Acute anemia Acute metabolic, infectious encephalopathy Acute respiratory failure Healthcare associated pneumonia Acute hypoglycemia Hypokalemia Elevated troponins Severe protein malnutrition Morbid obesity AAA, 4 cm, infrarenal History of diabetes mellitus type 2 History of dyslipidemia history of hypertension Patient seen examined bedside. argatroban until warfarin goal INR of 4 and maintenance goal of 2-3. Pending appointing a legal guardian. Patient's chart, labs, images were reviewed and discussed with KARY Cardenas Enteric tube with metallic tip in the left upper quadrant likely in the stomach. Home on plavix and warfarin D/C INITIAL PLAN TO [place] PENDING/ discharge planning in place once court appointed DPOA available D/W RN 10/27/2020 HGB 9.4 doing well on trach shield on a 24-hour basis./ blood gases shows no worsening hypercapnia while on trach shield. No apneic breathing reported. laparoscopic gastrostomy tube placement (specifically 24 F) Oct discharge planning in place once court appointed DPOA available Acute anemia Acute metabolic, infectious encephalopathy Acute respiratory failure Healthcare associated pneumonia Acute hypoglycemia Hypokalemia Elevated troponins Severe protein malnutrition Morbid obesity AAA, 4 cm, infrarenal History of diabetes mellitus type 2 History of dyslipidemia history of hypertension Patient seen examined bedside. argatroban until warfarin goal INR of 4 and maintenance goal of 2-3. Pending appointing a legal guardian. Patient's chart, labs, images were reviewed and discussed with KARY Cardenas Enteric tube with metallic tip in the left upper quadrant likely in the stomach. Home on plavix and warfarin D/C INITIAL PLAN TO [place] PENDING/ discharge planning in place once court appointed DPOA available D/W RN 10/28/2020 HGB 9.4 doing well on trach shield on a 24-hour basis./ blood gases shows no worsening hypercapnia while on trach shield. No apneic breathing reported. laparoscopic gastrostomy tube placement (specifically 24 F) Oct discharge planning in place once court appointed DPOA available Acute anemia Acute metabolic, infectious encephalopathy Acute respiratory failure Healthcare associated pneumonia Acute hypoglycemia Hypokalemia Elevated troponins Severe protein malnutrition Morbid obesity AAA, 4 cm, infrarenal History of diabetes mellitus type 2 History of dyslipidemia history of hypertension Patient seen examined bedside. argatroban until warfarin goal INR of 4 and maintenance goal of 2-3. Pending appointing a legal guardian. Patient's chart, labs, images were reviewed and discussed with AKRY Cardenas Enteric tube with metallic tip in the left upper quadrant likely in the stomach. Home on plavix and warfarin D/C INITIAL PLAN TO [facility] PEND[facility]/ discharge planning in place once court appointed DPOA available D/W RN Vitals/I&O Vitals/I&O: Vital Signs Date Time Temp Pulse Resp B/P (MAP) Pulse Ox O2 Delivery O2 Flow Rate FiO2 12/01/20 11:22 100 Ventilator 12/01/20 11:00 89 20 120/80 (93) 12/01/20 08:00 98.0 98.0 12/01/20 03:00 8.0 I & O 11/30/20 11/30/20 12/01/20 15:00 23:00 07:00 Intake Total 100 ml 100 ml 100 ml Output Total 900 ml 350 ml Balance 100 ml -800 ml -250 ml Physical Exam Physical Exam: Neuro: actively posturing. Pulpils dialated but reactive to light and accomendation. Flaccidity in the lower extremity bilaterally. Equivocal Babinski. General: Alert (sleeping), mild distress, Other (actively posturing. No meaningful movements. ) Heart: Regular rate (SR), Other (distant heart sounds) Lungs: Clear Abdomen: Soft, Other (g tube in place) Extremities: No cyanosis, Other (2-3+ bilateral LE pitting edema) Skin: No rashes, No significant lesion Labs Labs: Laboratory Tests Test 11/30/20 17:12 12/01/20 02:23 12/01/20 02:39 12/01/20 05:45 Glucose (Fingerstick) 146 mg/dL (70-99) 200 mg/dL (70-99) O2 Saturation 91 % (92-99) Arterial Blood pH 7.44 (7.35-7.45) Arterial Blood pCO2 at Patient Temp 37 mmHg (35-46) Arterial Blood pO2 at Patient Temp 68 mmHg (65-108) Arterial Blood HCO3 24 mmol/L (21-28) Arterial Blood Base Excess 0 mmol/L (-3-3) FiO2 35 White Blood Count 8.3 x10^3/uL (4.0-11.0) Red Blood Count 2.48 x10^6/uL (4.30-5.70) Hemoglobin 7.7 g/dL (13.0-17.5) Hematocrit 23.5 % (39.0-53.0) Mean Corpuscular Volume 95 fL (79-100) Mean Corpuscular Hemoglobin 31 pg (25-35) Mean Corpuscular Hemoglobin Concent 33 g/dL (31-37) Red Cell Distribution Width 16.6 % (11.5-14.5) Platelet Count 351 x10^3/uL (140-400) Neutrophils (%) (Auto) 80 % (31-73) Lymphocytes (%) (Auto) 13 % (24-48) Monocytes (%) (Auto) 6 % (0-9) Eosinophils (%) (Auto) 1 % (0-3) Basophils (%) (Auto) 0 % (0-3) Neutrophils # (Auto) 6.7 x10^3/uL (1.8-7.7) Lymphocytes # (Auto) 1.1 x10^3/uL (1.0-4.8) Monocytes # (Auto) 0.5 x10^3/uL (0.0-1.1) Eosinophils # (Auto) 0.1 x10^3/uL (0.0-0.7) Basophils # (Auto) 0.0 x10^3/uL (0.0-0.2) Prothrombin Time 20.9 SEC (11.7-14.0) Prothromb Time International Ratio 1.8 (0.8-1.1) Sodium Level 139 mmol/L (136-145) Potassium Level 4.1 mmol/L (3.5-5.1) Chloride Level 101 mmol/L (98-107) Carbon Dioxide Level 29 mmol/L (21-32) Anion Gap 9 (6-14) Blood Urea Nitrogen 25 mg/dL (8-26) Creatinine 1.1 mg/dL (0.7-1.3) Estimated GFR (Cockcroft-Gault) 65.8 Glucose Level 136 mg/dL (70-99) Calcium Level 8.5 mg/dL (8.5-10.1) Test 12/01/20 07:30 O2 Saturation 98 % (92-99) Arterial Blood pH 7.50 (7.35-7.45) Arterial Blood pCO2 at Patient Temp 36 mmHg (35-46) Arterial Blood pO2 at Patient Temp 111 mmHg (65-108) Arterial Blood HCO3 27 mmol/L (21-28) Arterial Blood Base Excess 4 mmol/L (-3-3) FiO2 40 Assessment and Plan Assessmemt and Plan Problems Medical Problems: (1) NSTEMI (non-ST elevated myocardial infarction) Status: Acute (2) Obtundation Status: Acute (3) Respiratory arrest Status: Acute Comment Review of Relevant I have reviewed the following items denise (where applicable) has been applied. Medications: Current Medications Medications (Trade) Dose Ordered Sig/Dru Route PRN Reason Start Time Stop Time Status Last Admin Dose Admin Warfarin Sodium (Coumadin) 3 mg 1X WARF ONCE PO 11/30/20 16:00 11/30/20 16:01 DC 11/30/20 15:55 Justifications for Admission Other Justification Hypoglycemia and altered mental status. FUAD CUTLER MD Dec 01, 2020 11:59
--- NOTE | 2020-12-01 13:28 | NUR ---
Pharmacy Warfarin Dosing Note S:Pharmacy consulted to assist with anticoagulation therapy started with target INR: 2 -3 O:DEMETRICE HOWE is a 70 year old M with Atrial Fibrillation, DVT/PE and past medical history of HIT. LABS: Last INR: 1.8 Last HGB: 7.7 Last HCT: 23.5 Last PLT: 351 Last dose of 3 mg given on 11/30/20 at 1555 Previous Regimen: Last admission 08/16/20 was on 5 mg warfarin daily on discharge. Vitamin K given: N Drug Interaction Changes: DC'd Interacting Drug Ongoing Drug Interactions: amiodarone, aspirin, plavix, fluconazole (11/19-11/29) A:INR of 1.8 is below desired range. Target range for this patient is: 2 -3 P: Warfarin dose: 3 mg Today at 1600 Bridge Therapy: None Therapeutic Next INR due 12/02/20 Pharmacy anticoagulation service will continue to follow. MURTAZA RICHTER, [facility], 12/01/20 [id number]
--- NOTE | 2020-12-01 14:48 | NUR ---
SS following up with discharge planning. SS reviewed pt chart and discussed with pt RN. Pt CODED last night and was re-intubated. Pt is currently on the vent at 40%. Pt on IV Lasix. No sedation. G tube in place. COVID19 negative. Pt now has insurance approval for LTACH at [facility], ; fax [phone]. Physicians discussed goals of care with pt's niece and pt's niece considering options. Pt remains Full Code at this time. Currently awaiting finalized Guardianship papers from insurance attorney. SS will continue to follow for discharge planning.
[2020-12-01] MEDS ORDERED: WARFARIN 3 MG TABLET. PO ONE (16:00)
[2020-12-01] MEDS: ATORVASTATIN CALCIUM 40 MG TABLET. PO SCH (21:30)
[2020-12-02] VITALS (15 sets, daily range): BP systolic 89–165; BP diastolic 48–81
[2020-12-02] MEDS: INSULIN LISPRO 300 UNITS/3 ML VIAL. SQ SCH ×3 (00:45→11:52)
[2020-12-02 05:57] LABS: BASO % 1 % (0-3); EOS # 0.3 x10^3/uL (0.0-0.7); EOS % 5 % (0-3); HEMATOCRIT 21.3 % (39.0-53.0); HEMOGLOBIN 7.1 g/dL (13.0-17.5); LYMPH # 1.9 x10^3/uL (1.0-4.8); LYMPH % 34 % (24-48); MEAN CORPUSCULAR HEMOGLOBIN 32 pg (25-35); MEAN CORPUSCULAR HGB CONC 33 g/dL (31-37); MEAN CORPUSCULAR VOLUME 95 fL (79-100); MONO # 0.4 x10^3/uL (0.0-1.1); MONO % 8 % (0-9); NEUT # 2.9 x10^3/uL (1.8-7.7); NEUT % 53 % (31-73); PLATELET COUNT 315 x10^3/uL (140-400); RED BLOOD COUNT 2.25 x10^6/uL (4.30-5.70); RED CELL DISTRIBUTION WIDTH 16.7 % (11.5-14.5); WHITE BLOOD COUNT 5.5 x10^3/uL (4.0-11.0)
[2020-12-02 06:11] LABS: CALCIUM 8.5 mg/dL (8.5-10.1); GFR 73.5; POTASSIUM 3.6 mmol/L (3.5-5.1)
[2020-12-02 06:46] LABS: PROTHROMBIN TIME PATIENT 20.1 SEC (11.7-14.0)
[2020-12-02] MEDS: METOPROLOL TART IMMED RELEASE 25 MG TABLET. PO SCH (07:59)
[2020-12-02] MEDS: DOCUSATE 100 MG/10 ML SOLUTION. PO SCH (07:59)
[2020-12-02] MEDS: POTASSIUM BICARB 20 MEQ EFFERVESCENT TABLET. PEG SCH (07:59)
[2020-12-02] MEDS: ASPIRIN CHEWABLE 81 MG TABLET. PO SCH (08:00)
[2020-12-02] MEDS: AMIODARONE HCL 200 MG TABLET. PO SCH (08:00)
[2020-12-02] MEDS: CLOPIDOGREL BISULFATE 75 MG TABLET PO SCH (08:01)
[2020-12-02] MEDS: LANSOPRAZOLE 30 MG TAB.RAP.DR FT SCH (08:01)
[2020-12-02] MEDS: FUROSEMIDE 40 MG/4 ML VIAL. IVP SCH (08:01)
--- NOTE | 2020-12-02 10:17 | PDOC ---
[employer] PROGRESS NOTE Date of Service DOS: DATE: 12/02/20 TIME: 10:15 Chief Complaint Chief Complaint Acute anemia Acute metabolic, infectious encephalopathy Acute hypoxic respiratory failure Healthcare associated pneumonia Acute hypoglycemia Hypokalemia Elevated troponins Severe protein malnutrition Morbid obesity AAA, 4 cm, infrarenal History of diabetes mellitus type 2 History of dyslipidemia history of hypertension History of recent STEMI History of CAD History of peripheral artery disease History of JEANNE History of CVA History of paroxysmal atrial fibrillation Ischemic cardiomyopathy History of Present Illness History of Present Illness 12/02/2020 No acute events overnight. Patient still on mechanical ventilation through his trach. No decisions to withdraw care yet. Pending discussion further with. Afebrile. Hemodynamically stable not on any vasopressors. Patient's chart, labs, images were reviewed and discussed with RN 12/01/2020 Patient had a CODE BLUE last night that resulted him to be transferred to the ICU. Patient responded in bag during resuscitation and achieved ROSC. Placement was placed on the vent. Niece was in the bedroom as this was the only patient's family member that had any any close contact or meaningful discussion about his quality of life or CODE STATUS. At this point niece would like to keep him full code until she sorts things out, but ultimately deep in her heart she said that she wants to make him DNR. Patient's chart, labs, images were reviewed and discussed with RN In addition to my E/M visit, advance care planning done with A total time of 20 minutes was spent from 9:00 to 920 face to face in discussion with the patient's niece regarding the patient's goals of care and CODE STATUS. 11/30: Pt was seen, examined, and their chart was reviewed. Pt is still on PEG feed with 6L of humidified O2. Discharge, disposition pending Discussed with RN and SW. 11/29: Pt was seen, examined, and their chart was reviewed. Pt is still on PEG feed with AVAPS at 35% FiO2. Discharge, pending disposition. Discussed with RN and SW. 11/28: Pt was seen, examined, and their chart was reviewed. Pt is still on PEG feed with Tracheostomy Shield. Discharge, pending disposition. Discussed with RN and SW. 11/27: Patient was seen and examined. Kangaroo pump is set at 45 cc and hour. Tracheostomy Shield set at 33% FiO2. Discussed with RN and SW. Pts chart was reviewed. 11/26: Afebrile, on 8 L trach collar. No changes overnight. Guardianship papers signed by ninelda and faxed to the family law attorney managing this case. Patient has been accepted at [facility]. 11/25: Afebrile, on 8 L trach collar. Still with some relative hypotension, BP 92/50 mmHg. As needed normal saline boluses. He will need guardianship for placement to LTAC, and patient's niece requesting to be proposed guardians at this time. Signed paperwork was faxed to the family law attorney managing this case. Patient has been accepted at [facility]. 11/24: Afebrile, 8 L on trach collar. Dressings to right elbow change, appear to have obtained hemostasis. Accept[facility], pending insurance authorization. 11/23: Afebrile, on trach collar is a clear. Niece present at bedside and updated her on patient's clinical course and likely poor prognosis of recovery. Some bleeding from right olecranon process secondary to irritated scab. Given the fact that patient is on blood thinners, if unable to control with compression may need to hold warfarin temporarily until hemostasis can be obtained. Accepted at [facility], pending insurance authorization. 11/22: No acute change overnight. On trach collar 8 L. Guardianship papers were signed yesterday by anabel. Patient has been accepted to [facility], pending insurance authorization. 11/21: Afebrile. Tolerated trach shield with BiPAP overnight. Guardianship papers to be signed today by patient's niece. Transfer to LTAC at [facility] in the near future pending insurance authorization. 11/20: Afebrile, on trach collar 8 L. Patient's niece is applying for guardianship prior to transfer to [facility] LT at [facility]. She has decided to make patient full code. Anticipate transfer to LTAC in near future. RN discussed with patient's niece, she would like his CODE STATUS to be full code. I agree with Dr. Ennis, no prognosis for meaningful recovery. Discussed with niece (Casandra Andrews) by phone about poor prognosis and goals of care; she reiterates that she would like him to still be full code at this time. 11/19 Patient evaluated and examined at bedside. He was on the trach collar at 8. Informed patient's niece today that really only thing waiting on now is guardianship to be approved. Hopeful for that to happen in the coming week. Otherwise continue to monitor respiratory status. No major neurologic changes. Plan of care discussed with bedside RN. 11/18 On trach collar when being seen. Still with minimal neurologic status. Once social issues sorted out well discharge. 11/17 Patient evaluated and examined at bedside. He was tolerating being on the trach collar when seen. No change in neurologic status really. I have written a letter to send to the local supervisor logging with my support for his need of a guardian. 11/16 Patient evaluated and examined at bedside. Patient's niece at bedside discussed case at length with her and ongoing plan. He does present as movement in his upper extremities today. He did open his eyes to his niece's voice earlier. Continue current plan of care. 11/15 Patient evaluated and examined at bedside. Remains minimally responsive. He is discharged ready. Just waiting for social issues to be sorted out. Possible discharge 11/14: No sort of clinical change overnight. Remains encephalopathic. Can discharge whenever guardianship and social issues mediated. 11/13: Afebrile. Still no meaningful response to any sort of interaction. Remains on trach. PEG tube. Complicated social situation. Afebrile. BP a little up today. Continues to remain encephalopathic off sedation requiring 8 L trach shield O2 with O2 saturations 91%. Tolerating PEG feeds with free water boluses. INR 2.8. Discussed with anabel Guajardo she is reaching out to the rest of the family. 11/11: Afebrile. No meaningful following of commands, opens eyes. Requires 8L trach shield O2 to maintain O2 saturations 90%. No residuals on PEG tube feeds. Discussed with anabel Guajardo bedside she is going to reach out to the rest of the family now the family has been located. 11/10: Afebrile. Continues to be encephalopathic no meaningful eye contact movements not following commands. Requiring 8 L trach shield O2 to maintain saturations 91%. No residuals on tube feeds 45 cc/h. INR 2.8. Throughout heroic efforts by social work estranged family has been found and has a niece who will be visiting sometime potentially later today or tomorrow 11/09: Afebrile. Still encephalopathic not making any meaningful eye contact or movements not following commands. Waiting for guardianship. 8 L trach shield O2. Tolerating tube feeds with no residuals 45 cc/h. INR 2.6 11/08: Afebrile. Opens eyes but no meaningful contact not following commands. Requiring 8 L trach shield O2 mask. 11/07: Not responsive to stimuli, not making eye contact. Afebrile. Seen on 8 L trach collar canula. Hb 9.1 Renal labs stable INR 3.1. 11/06: Patient not meaningfully responding well. On trach shield and BiPAP as needed on trach. PEG feeds with no significant residuals. 11/05: Patient is still unresponsive. Pupils reactive to light and accommodation. No meaningful movements. Actively posturing at bed side. Has peg feeding at 45cc/hr. Trach shield at 8L and BIPAP PRN at 35%. There is an open wound at the site of the peg insertion. Wound care, Dr. Cristobal is consulted. 11/04: Patient is still unresponsive. Pupils reactive to light and accommodation. Actively posturing at bedside. No meaningful movements. Has peg feeding at 45cc/hr. Trach shield at 8L and BIPAP PRN at 35%. 11/03: Patient seen and examined. Discussed with RN and social media intern. Chart reviewed. Patient is still unresponsive. Actively decorticate posturing at bedside. Eyes rolled upward. No meaningful movements. Has peg feeding at 45cc/hr. The bleeding at the peg insertion site has stopped. 11/02: Patient seen and examined. Chart reviewd. Discussed with RN and social media intern. Patient is still unresponsive. No meaningful movements. Actively decorticate posturing at bedside. Has peg feeding running at 45cc/hr. Some bleeding at the peg insertion site. 11/01: Patient seen and examined. Discussed with social media intern and RN. Patient is still unresponsive. No meaningful movements. Peg feeding is running at 45cc/hr. Patient is actively posturing at bed side. Trach shield at 8L and BIPAP PRN at 35%. 10/31: Patient seen and examined. Chart reviewed. Discussed with social media intern and RN. Patient still unresponsive. Patient actively posturing at bed side. Has peg running at 45cc/hr. Vestibulo-ocular reflex intact. 10/30: Patient seen and examined. Discussed with social media intern and RN. Chart reviewed. Patient actively posturing at bed side. Has peg running at 45cc/hr. Mr Andrews is a 70-year-old male with a recent prolonged hospitalization for STEMI and respiratory failure for which she was treated with arterial thrombolysis for a right leg popliteal artery aneurysm and also had left heart cath with placement of a stent in the LAD and RCA comes in today after he was found obtunded at his [facility] facility. Apparently according to the nursing facility patient was in his usual state of health and he was conversa tional but then became altered. His blood glucose was found to be in the 30s. Glucose tabs and glucagon was given in route and his GCS reported at 6. Upon arrival patient's mental status did not improve and he was eventually intubated for airway protection. Of note EMS was bagging the patient through the nasal access. In the ED, patient was placed on a vent and pulmonology was consulted. Patient was also taken to the CT scanner for sanders scanning. Patient was started to wake up on the vent and sedation was ordered. 09/23: Patient examined at bedside. Intubated. Not on any sedation but unresponsive. Neurology consult in place. 09/24: Patient seen and examined at bedside. Remains intubated he is off sedation but still remains unresponsive. Planning for MRI brain in the morning. Further plan to be determined by MRI. 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 09/25: Afebrile, currently breathing on ventilator with FiO2 50%, PEEP 5. Had CODE BLUE in ICU this morning; received 2 rounds of CPR, epinephrine, and atropine with ROSC. MRI brain negative. Made DNR, and after discussion with Dr. Rubalcava he agrees. 09/26:: Afebrile. Still on vent, with FiO2 45%, PEEP 5. After discussion with Dr. Rubalcava yesterday, patient was made DNR. In the ED is likely a poor candidate for weaning trials may need trach in near future if no significant improvement. 09/27:: Afebrile. On vent with FiO2 40%, PEEP 5. Potassium 2.8 today, will replace. Warfarin has been resumed. Discussed with pharmacy, will resume aspirin and Plavix. May need tracheostomy by the end of the week if no improvement in mental status. 09/28:: Afebrile. On ventilator with FiO2 40%, PEEP 5. Warfarin has been resumed; INR 1.3 today. Some morning labs still pending; hemoglobin yesterday 7.3, will continue to monitor. Continue IV cefepime and supportive care. 09/29: Afebrile. Breathing on vent with FiO2 40%, PEEP 5. INR 1.2 today; pharmacy to help with warfarin dosing. White count within normal range, renal function stable. Spoke with pharmacy about cefepime 1 g every 8 hours dosing; this has been changed to cefepime 2 g every 8 hours. 09/30: Afebrile. Currently breathing on vent with FiO2 40%, PEEP 5. Continue antibiotics, cefepime 2 g every 8 hours. INR 1.4; continue warfarin dosing per pharmacy. Possible tracheostomy at some point. Critical care time 30 minutes reviewing charts, labs, examination, discussion with RN. 10/01: T-max 100.3 F. On ventilator with FiO2 40%, PEEP 5. Continue antibiotics, cefepime 2 g every 8 hours. INR 1.4, still subtherapeutic; continue warfarin dosing per pharmacy. Possible tracheostomy at some point. 10/02: No acute events overnight. Patient saturating 99% on vent settings of 10/450/40/5. Patient will likely need a trach and PEG at some point. We will hold warfarin and start 2 units PRBC transfusion. Patient's chart, labs, images were reviewed and discussed with RN 10/03: No acute events overnight. Patient sat 100% on minimal vent settings. No sedation at this point and patient is opening his eyes spontaneously. Not much response or spontaneous movements. Surgery has been consulted for tracheostomy. Patient will also likely need a PEG tube. 10/04: No acute events overnight. Patient saturating 90% on minimal vent settings. T-max 100.4 overnight. Plan for trach tomorrow with surgery. Patient's chart, labs, images were reviewed and discussed with RN 10/05: No acute events overnight. Patient saturating 99% on minimal vent settings. Plan for tracheostomy today. Consent is provided by authorization by 2 physicians due to patient having no close relatives or DPOA. Will resume heparin and warfarin bridging tomorrow after tracheostomy 10/07: No acute events overnight. Patient seen and examined bedside. On trach vent. Saturating 99%. Pending GI evaluation for possible PEG placement after discussing with cardiology whether to continue with Plavix. Possibly place PEG if patient is only on aspirin and stopping argatroban. 10/08: No acute events overnight. Patient continues to be on trach mechanical vent. Saturating 100%. Pending decision from GI whether to proceed with PEG placement depending on the type of anticoagulation patient will be on. 10/09: No overnight events. On trach with vent support 40% FiO2 PEEP of 5. Currently argatroban and propofol for minimal sedation. When sedation is weaned he has no meaningful movements but has pulled at his tracheostomy site. Unable to hold plavix due to recently placed stents. 10/10: Afebrile today. On trach with vent support 40% FiO2 PEEP of 5. Continue argatroban and changed to Aggrastat in anticipation of surgical consultation for potential laparoscopic PEG placement. INR 1.6. Hb greater than 9 no significant neurologic recovery today. 10/11: Afebrile. On trach with vent support 40% FiO2 PEEP of 5. INR 1.8. Not making meaningful eye contact. Labs otherwise stable. 10/12: Afebrile. Trach with vent support 40% FiO2 PEEP five O2 saturations 92%. INR 1.8, mag 1.8, Hb 8.4. Not following commands. Tentative plans for surgical PEG next week. 10/13: Afebrile. Trach with vent support 40% FiO2 PEEP 5. Eyes open, not tracking or following commands. Holding Plavix. On argatroban. 10/14: Afebrile. Trach with vent support 40% FiO2 PEEP of 5. Will open eyes intermittently not necessarily to voice. Good urine output. Labs stable. 10/15: Afebrile overnight. Trach with vent AC 40% fio2 PEEP 5. Had a very large bowel movement. Still not tracking. Hb 9, INR 1.7, glucose 144. Tentative plan for PEG 10/18/2020 CC time 30 minutes 10/16/20: Patient seen and examined in the ICU. He was resting and still on vent via trach. Has NG running via Dobhoff, feeding at 40cc/hr. AC/10/450/40% plus 5 PEEP. Discussed with RN. Chart reviewed. 10/17/20: Patient was seen and examined in the ICU today. Still on vent via trach at AC/10/450/40 plus 5 PEEP. While examined, patient was at 100% O2 saturation. Has SCDs on for DVT prophylaxis. Stauffer catheter in place. On IV argatroban. R subclavian triple lumen in place. Dobhoff running at 40cc/hr. Discussed with RN. Chart reviewed. 10/18/20: Patient seen and examined in ICU. His eyes are open. On vent via trach with settings that were recently changed to spontaneous respirations with FiO2 of 40 and 5 PEEP. Trach is clean and dry. Currently, oxygen saturation is at 100%. Stauffer to bedside and rectal bag in place. Discussed with RN. Chart reviewed. 10/19/20: Patient was seen and examined in the ICU today. His eyes were open and he was resting. On BiPAP via trach AVAPS/10/450/40 plus 5 PEEP. Trach is clean and dry. Has SCDs for DVT prophylaxis. Patient has rectal bag, Stauffer to bedside, and NG tube in place. Discussed with RN. Chart reviewed. 10/20/20 No acute events overnight. Patient seen and examined bedside. Transferred from the ICU. Continues to be nonverbal and not following much commands. Opens eyes to voice. Currently on BiPAP via trach on AVAPS setting 10/450/40 PEEP of 5. Trach site is clear. No signs of infections. Patient's chart, labs, images were reviewed and discussed with RN 10/21/2020 No acute events overnight. Patient seen and examined bedside. Afebrile. Continues to be nonverbal but opens eyes to voice. Currently on BiPAP. Kaden raza's chart, labs, images were reviewed and discussed with RN. 10/22/2020 No acute events overnight. Patient seen examined bedside. Continue with argatroban until warfarin goal INR of 4 and maintenance goal of 2-3. Please see property portfolio officer note. Pending appointing a legal guardian. Patient's chart, labs, images were reviewed and discussed with RN 10/23/2020 laparoscopic gastrostomy tube placement (specifically 24 F) Oct discharge planning in place once court appointed DPOA available Acute anemia Acute metabolic, infectious encephalopathy Acute respiratory failure Healthcare associated pneumonia Acute hypoglycemia Hypokalemia Elevated troponins Severe protein malnutrition Morbid obesity AAA, 4 cm, infrarenal History of diabetes mellitus type 2 History of dyslipidemia history of hypertension Patient seen examined bedside. argatroban until warfarin goal INR of 4 and maintenance goal of 2-3. Pending appointing a legal guardian. Patient's chart, labs, images were reviewed and discussed with KARY Cardenas Enteric tube with metallic tip in the left upper quadrant likely in the stomach. 10/24/2020 doing well on trach shield on a 24-hour basis./ blood gases shows no worsening hypercapnia while on trach shield. No apneic breathing reported. laparoscopic gastrostomy tube placement (specifically 24 F) Oct discharge planning in place once court appointed DPOA available Acute anemia Acute metabolic, infectious encephalopathy Acute respiratory failure Healthcare associated pneumonia Acute hypoglycemia Hypokalemia Elevated troponins Severe protein malnutrition Morbid obesity AAA, 4 cm, infrarenal History of diabetes mellitus type 2 History of dyslipidemia history of hypertension Patient seen examined bedside. argatroban until warfarin goal INR of 4 and maintenance goal of 2-3. Pending appointing a legal guardian. Patient's chart, labs, images were reviewed and discussed with KARY Cardenas Enteric tube with metallic tip in the left upper quadrant likely in the stomach. Home on plavix and warfarin D/C INITIAL PLAN TO [facility] PEND[facility]/ discharge planning in place once court appointed DPOA available D/W RN 10/25/2020 doing well on trach shield on a 24-hour basis./ blood gases shows no worsening hypercapnia while on trach shield. No apneic breathing reported. laparoscopic gastrostomy tube placement (specifically 24 F) Oct discharge planning in place once court appointed DPOA available Acute anemia Acute metabolic, infectious encephalopathy Acute respiratory failure Healthcare associated pneumonia Acute hypoglycemia Hypokalemia Elevated troponins Severe protein malnutrition Morbid obesity AAA, 4 cm, infrarenal History of diabetes mellitus type 2 History of dyslipidemia history of hypertension Patient seen examined bedside. argatroban until warfarin goal INR of 4 and maintenance goal of 2-3. Pending appointing a legal guardian. Patient's chart, labs, images were reviewed and discussed with KARY Cardenas Enteric tube with metallic tip in the left upper quadrant likely in the stomach. Home on plavix and warfarin D/C INITIAL PLAN TO [facility]END[facility]/ discharge planning in place once court appointed DPOA available D/W RN 10/26/2020 HGB 9.4 doing well on trach shield on a 24-hour basis./ blood gases shows no worsening hypercapnia while on trach shield. No apneic breathing reported. laparoscopic gastrostomy tube placement (specifically 24 F) Oct discharge planning in place once court appointed DPOA available Acute anemia Acute metabolic, infectious encephalopathy Acute respiratory failure Healthcare associated pneumonia Acute hypoglycemia Hypokalemia Elevated troponins Severe protein malnutrition Morbid obesity AAA, 4 cm, infrarenal History of diabetes mellitus type 2 History of dyslipidemia history of hypertension Patient seen examined bedside. argatroban until warfarin goal INR of 4 and maintenance goal of 2-3. Pending appointing a legal guardian. Patient's chart, labs, images were reviewed and discussed with KARY Cardenas Enteric tube with metallic tip in the left upper quadrant likely in the stomach. Home on plavix and warfarin D/C INITIAL PLAN TO [facility]END[facility]/ discharge planning in place once court appointed DPOA available D/W RN 10/27/2020 HGB 9.4 doing well on trach shield on a 24-hour basis./ blood gases shows no worsening hypercapnia while on trach shield. No apneic breathing reported. laparoscopic gastrostomy tube placement (specifically 24 F) Oct discharge planning in place once court appointed DPOA available Acute anemia Acute metabolic, infectious encephalopathy Acute respiratory failure Healthcare associated pneumonia Acute hypoglycemia Hypokalemia Elevated troponins Severe protein malnutrition Morbid obesity AAA, 4 cm, infrarenal History of diabetes mellitus type 2 History of dyslipidemia history of hypertension Patient seen examined bedside. argatroban until warfarin goal INR of 4 and maintenance goal of 2-3. Pending appointing a legal guardian. Patient's chart, labs, images were reviewed and discussed with KARY Cardenas Enteric tube with metallic tip in the left upper quadrant likely in the stomach. Home on plavix and warfarin D/C INITIAL PLAN TO [facility]END[facility]/ discharge planning in place once court appointed DPOA available D/W RN 10/28/2020 HGB 9.4 doing well on trach shield on a 24-hour basis./ blood gases shows no worsening hypercapnia while on trach shield. No apneic breathing reported. laparoscopic gastrostomy tube placement (specifically 24 F) Oct discharge planning in place once court appointed DPOA available Acute anemia Acute metabolic, infectious encephalopathy Acute respiratory failure Healthcare associated pneumonia Acute hypoglycemia Hypokalemia Elevated troponins Severe protein malnutrition Morbid obesity AAA, 4 cm, infrarenal History of diabetes mellitus type 2 History of dyslipidemia history of hypertension Patient seen examined bedside. argatroban until warfarin goal INR of 4 and maintenance goal of 2-3. Pending appointing a legal guardian. Patient's chart, labs, images were reviewed and discussed with KARY Cardenas Enteric tube with metallic tip in the left upper quadrant likely in the stomach. Home on plavix and warfarin D/C INITIAL PLAN TO [facility] PEND[facility]/ discharge planning in place once court appointed DPOA available D/W RN Vitals/I&O Vitals/I&O: Vital Signs Date Time Temp Pulse Resp B/P (MAP) Pulse Ox O2 Delivery O2 Flow Rate FiO2 12/02/20 10:00 77 18 149/79 (102) 100 Ventilator 12/02/20 08:00 98.5 98.5 I & O 12/01/20 12/01/20 12/02/20 15:00 23:00 07:00 Intake Total 200 ml 788 ml 1012 ml Output Total 515 ml 205 ml 375 ml Balance -315 ml 583 ml 637 ml Physical Exam Physical Exam: Neuro: actively posturing. Pulpils dialated but reactive to light and accomendation. Flaccidity in the lower extremity bilaterally. Equivocal Babinski. General: Alert (sleeping), mild distress, Other (actively posturing. No meaningful movements. ) Heart: Regular rate (SR), Other (distant heart sounds) Lungs: Clear Abdomen: Soft, Other (g tube in place) Extremities: No cyanosis, Other (2-3+ bilateral LE pitting edema) Skin: No rashes, No significant lesion Labs Labs: Laboratory Tests Test 12/01/20 12:06 12/01/20 17:31 12/02/20 00:43 12/02/20 05:30 Glucose (Fingerstick) 165 mg/dL (70-99) 139 mg/dL (70-99) 148 mg/dL (70-99) White Blood Count 5.5 x10^3/uL (4.0-11.0) Red Blood Count 2.25 x10^6/uL (4.30-5.70) Hemoglobin 7.1 g/dL (13.0-17.5) Hematocrit 21.3 % (39.0-53.0) Mean Corpuscular Volume 95 fL (79-100) Mean Corpuscular Hemoglobin 32 pg (25-35) Mean Corpuscular Hemoglobin Concent 33 g/dL (31-37) Red Cell Distribution Width 16.7 % (11.5-14.5) Platelet Count 315 x10^3/uL (140-400) Neutrophils (%) (Auto) 53 % (31-73) Lymphocytes (%) (Auto) 34 % (24-48) Monocytes (%) (Auto) 8 % (0-9) Eosinophils (%) (Auto) 5 % (0-3) Basophils (%) (Auto) 1 % (0-3) Neutrophils # (Auto) 2.9 x10^3/uL (1.8-7.7) Lymphocytes # (Auto) 1.9 x10^3/uL (1.0-4.8) Monocytes # (Auto) 0.4 x10^3/uL (0.0-1.1) Eosinophils # (Auto) 0.3 x10^3/uL (0.0-0.7) Basophils # (Auto) 0.0 x10^3/uL (0.0-0.2) Prothrombin Time 20.1 SEC (11.7-14.0) Prothromb Time International Ratio 1.7 (0.8-1.1) Sodium Level 138 mmol/L (136-145) Potassium Level 3.6 mmol/L (3.5-5.1) Chloride Level 101 mmol/L (98-107) Carbon Dioxide Level 32 mmol/L (21-32) Anion Gap 5 (6-14) Blood Urea Nitrogen 30 mg/dL (8-26) Creatinine 1.0 mg/dL (0.7-1.3) Estimated GFR (Cockcroft-Gault) 73.5 Glucose Level 146 mg/dL (70-99) Calcium Level 8.5 mg/dL (8.5-10.1) Assessment and Plan Assessmemt and Plan Problems Medical Problems: (1) NSTEMI (non-ST elevated myocardial infarction) Status: Acute (2) Obtundation Status: Acute (3) Respiratory arrest Status: Acute Comment Review of Relevant I have reviewed the following items denise (where applicable) has been applied. Medications: Current Medications Medications (Trade) Dose Ordered Sig/Dru Route PRN Reason Start Time Stop Time Status Last Admin Dose Admin Warfarin Sodium (Coumadin) 3 mg 1X WARF ONCE PO 12/01/20 16:00 12/01/20 16:01 DC 12/01/20 16:45 Justifications for Admission Other Justification Hypoglycemia and altered mental status. FUAD CUTLER MD Dec 02, 2020 10:17
--- NOTE | 2020-12-02 10:45 | SNU/HH DC ---
DISCHARGE ORDERS DISCHARGE INFORMATION: DISCHARGE DATE: Dec 02, 2020 FINAL DIAGNOSIS Problems Medical Problems: (1) NSTEMI (non-ST elevated myocardial infarction) Status: Acute (2) Obtundation Status: Acute (3) Respiratory arrest Status: Acute CONDITION ON DISCHARGE: Stable HOSPICE: HOSPICE: Yes HOSPICE EVAL & TREAT: Yes LTAC: ADMIT TO LTAC: Yes POST DISCHARGE ORDERS: ACTIVITY ORDERS: Activity as tolerated WEIGHT BEARING STATUS: As tolerated DIET AFTER DISCHARGE: ADA WOUND/INCISION CARE: No wound care needed CHECKS AFTER DISCHARGE: CHECKS AFTER DISCHARGE: Check blood press - daily, Check blood sugar, ac/hs, Check your Temp as needed FOLLOW-UP: PHYSICIAN FOLLOW-UP: PCP MICHELLE ADDITIONAL FOLLOW-UP: Hospice consult MICHELLE TREATMENT/EQUIPMENT ORDERS: ADAPTIVE EQUIPMENT NEEDED: Walker RESPIRATORY EQUIPMENT NEEDED: Oxygen Physical Therapy For: Evalulation/Treatment Occupational Therapy For: Evaluation/Treatment Speech Language Pathology For: Swallow Cognition DISCHARGE MEDICATIONS: Home Meds Active Scripts Amiodarone Hcl (AMIODARONE HCL) 200 Mg Tablet, 400 MG PO DAILY for arrhythmia for 90 Days, #180 TAB Prov:ADITYA THOMASONL K III DO 09/18/20 Clopidogrel Bisulfate (CLOPIDOGREL) 75 Mg Tablet, 75 MG PO DAILYWBKFT for cad for 90 Days, #90 TAB Prov:CASTLENIAL K III DO 09/18/20 Insulin Lispro (HUMALOG) 100 Unit/1 Ml Insuln.pen, 0 UNITS SQ TIDWMEALS for GLUCOSE CONTROL for 30 Days, #1 EACH Prov:KLAUDIA HAY MD 08/06/18 Aspirin (ASPIRIN) 325 Mg Tablet, 325 MG PO DAILYWBKFT for 30 Days, #30 TAB Prov:ANGELA DAWSON MD 07/22/17 Metoprolol Tartrate (METOPROLOL TARTRATE) 25 Mg Tablet, 25 MG PO BID for 30 Days, #60 TAB Prov:ANGELA DAWSON MD 07/22/17 Reported Medications Furosemide (FUROSEMIDE) 40 Mg Tablet, 1 TAB PO BID for CHF 09/13/20 Losartan/Hydrochlorothiazide (LOSARTAN-HCTZ 100-12.5 MG TAB) 1 Each Tablet, 1 TAB PO DAILY for HTN 09/13/20 Atorvastatin Calcium (ATORVASTATIN CALCIUM) 40 Mg Tablet, 1 TAB PO DAILY for HLD 09/13/20 Diltiazem HCl (Diltiazem 24Hr Cd) 240 Mg Cap.er.24h, 1 CAP PO DAILY for A Fib 09/13/20 Famotidine (PEPCID) 20 Mg Tablet, 20 MG PO BID 05/17/13 Discontinued Reported Medications Glimepiride (GLIMEPIRIDE) 4 Mg Tablet, 1 TAB PO DAILY for DM 09/13/20 Budesonide/Formoterol Fumarate (SYMBICORT 160-4.5 MCG INHALER) 10.2 Gm Hfa.aer.ad, 1 PUFF INH DAILY for COPD 09/13/20 Nitrofurantoin Monohyd/M-Cryst (NITROFURANTOIN MONO-MCR 100 MG) 100 Mg Capsule, 1 CAP PO BID for HTN 09/13/20 Betamethasone Valerate (BETAMETHASONE VALERATE) 60 Ml Lotion, 1 TP QHS for dermatitis 09/13/20 Nystatin (NYSTOP) 60 Gm Powder, 1 MARCELLE TP BID for Reddened folds 09/13/20 Discontinued Scripts [Warfarin Per Pharmacy] 1 EACH EACH No Conflict Check, 1 EACH PRN DAILY PRN for SEE COMMENTS for 30 Days, #30 Prov:MANNY THOMASON K III DO 09/18/20 Ipratropium/Albuterol Sulfate (DUONEB 0.5-3(2.5) MG/3 ML) 3 Ml Ampul.neb, 3 ML NEB RTQID for COPD for 30 Days, #120 EACH Prov:KLAUDIA HAY MD 08/06/18 Montelukast Sodium (MONTELUKAST SODIUM TABLET ) 10 Mg Tablet, 10 MG PO QHS, #30 TAB Prov:ANGELA DAWSON MD 07/22/17 Gabapentin (GABAPENTIN) 600 Mg Tablet, 600 MG PO BID for 30 Days, #60 TAB Prov:ANGELA DAWSON MD 07/22/17 FUAD CUTLER MD Dec 02, 2020 10:45
--- NOTE | 2020-12-02 13:50 | PDOC ---
CARDIOLOGY PROGRESS NOTE SUBJECTIVE: No acute events overnight. Patient had cardioresp arrest and transferred to ICU. Stable over last 24 hours on Vent. No further arrhythmias. OBJECTIVE: Vital Signs/I&O: Vital Signs Date Time Temp Pulse Resp B/P (MAP) Pulse Ox O2 Delivery O2 Flow Rate FiO2 12/02/20 13:00 77 18 141/72 (95) 100 Ventilator 12/02/20 12:00 98.4 98.4 I & O 0 12/01/20 12/01/20 12/02/20 15:00 23:00 07:00 Intake Total 200 ml 788 ml 1012 ml Output Total 515 ml 205 ml 375 ml Balance -315 ml 583 ml 637 ml Objective: He is non-responsive. Normal heart tones. Normal lung tones. Obese abdomen No edema. Diminished pedal pulses. CURRENT MEDICATIONS: Warfarin Plavix ASA Metoprolol 25mg bid Atorvastatin 40mg daily Lasix 40mg IVP DIAGNOSTIC TESTING: Labs reviewed. Labs: Laboratory Tests 12/02/20 05:30 Laboratory Tests Test 12/01/20 17:31 12/02/20 00:43 12/02/20 05:30 12/02/20 11:48 Glucose (Fingerstick) 139 mg/dL (70-99) H 148 mg/dL (70-99) H 146 mg/dL (70-99) H White Blood Count 5.5 x10^3/uL (4.0-11.0) Red Blood Count 2.25 x10^6/uL (4.30-5.70) L Hemoglobin 7.1 g/dL (13.0-17.5) L Hematocrit 21.3 % (39.0-53.0) L Mean Corpuscular Volume 95 fL (79-100) Mean Corpuscular Hemoglobin 32 pg (25-35) Mean Corpuscular Hemoglobin Concent 33 g/dL (31-37) Red Cell Distribution Width 16.7 % (11.5-14.5) H Platelet Count 315 x10^3/uL (140-400) Neutrophils (%) (Auto) 53 % (31-73) Lymphocytes (%) (Auto) 34 % (24-48) Monocytes (%) (Auto) 8 % (0-9) Eosinophils (%) (Auto) 5 % (0-3) H Basophils (%) (Auto) 1 % (0-3) Neutrophils # (Auto) 2.9 x10^3/uL (1.8-7.7) Lymphocytes # (Auto) 1.9 x10^3/uL (1.0-4.8) Monocytes # (Auto) 0.4 x10^3/uL (0.0-1.1) Eosinophils # (Auto) 0.3 x10^3/uL (0.0-0.7) Basophils # (Auto) 0.0 x10^3/uL (0.0-0.2) Prothrombin Time 20.1 SEC (11.7-14.0) H Prothromb Time International Ratio 1.7 (0.8-1.1) H Sodium Level 138 mmol/L (136-145) Potassium Level 3.6 mmol/L (3.5-5.1) Chloride Level 101 mmol/L (98-107) Carbon Dioxide Level 32 mmol/L (21-32) Anion Gap 5 (6-14) L Blood Urea Nitrogen 30 mg/dL (8-26) H Creatinine 1.0 mg/dL (0.7-1.3) Estimated GFR (Cockcroft-Gault) 73.5 Glucose Level 146 mg/dL (70-99) H Calcium Level 8.5 mg/dL (8.5-10.1) ASSESSMENT: 1. Ischemic CMP 2. PAD 3. Anemia 4. Resp failure PLAN: 1. Stop ASA 2. Continue other meds. 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 Justicifation of Admission Dx: Justifications for Admission: Justification of Admission Dx: Yes CHF: Cardiac Arrhythmias EMELIA GRAY MD Dec 02, 2020 13:50
--- NOTE | 2020-12-02 15:35 | NUR ---
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 Family aware of transfer and approve.
[2020-12-02] MEDS ORDERED: WARFARIN 4 MG TABLET. PO SCH (16:00)
--- NOTE | 2020-12-04 21:02 | PDOC3 ---
[facility]-Discharge Summary Date of Admission: Date of Admission: Sep 22, 2020 Date of Discharge: Date of Discharge: Dec 02, 2020 Discharge Diagnosis: Discharge Diagnosis: Acute anemia Acute metabolic, infectious encephalopathy Acute hypoxic respiratory failure Healthcare associated pneumonia Acute hypoglycemia Hypokalemia Elevated troponins Severe protein malnutrition Morbid obesity AAA, 4 cm, infrarenal History of diabetes mellitus type 2 History of dyslipidemia history of hypertension History of recent STEMI History of CAD History of peripheral artery disease History of JEANNE History of CVA History of paroxysmal atrial fibrillation Ischemic cardiomyopathy Hospital Course: Hospital Course: 70-year-old male with a recent prolonged hospitalization for STEMI and respiratory failure for which she was treated with arterial thrombolysis for a right leg popliteal artery aneurysm and also had left heart cath with placement of a stent in the LAD and RCA comes in today after he was found obtunded at his retirement facility. Apparently according to the nursing facility patient was in his usual state of health and he was conversational but then became altered. His blood glucose was found to be in the 30s. Glucose tabs and glucagon was given in route and his GCS reported at 6. Upon arrival patient's mental status did not improve and he was eventually intubated for airway protection. Of note EMS was bagging the patient through the nasal access. In the ED, patient was placed on a vent and pulmonology was consulted. Patient was also taken to the CT scanner for sanders scanning. Patient was started to wake up on the vent and sedation was ordered. Patient had an extensive stay which he had a CODE blue event on 09/25/20 received 2 rounds of CPR, epinephrine, and atropine with ROSC. MRI brain negative. Made DNR, and after discussion with Dr. Rubalcava he agrees. 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 Trach done on 10/06/20 and kept on Argatroban for anticoagulation afterwards. PEG completed on . Most of the hospital stay was dedicated to finding placement and a legal guardian to take over his care. Most of his family did not want to be involved with his medical situation. He does have a niece who will be likely be taking over guardianship, but still wanted to keep him FULL code. He remained on trach collar and he had decorticate posturing as well. Not following commands and did not have purposeful movements Dr. Ennis, felt there was no prognosis for meaningful recovery. Discussed with niece (Casandra Andrews) by phone about poor prognosis and goals of care; she reiterates that she would like him to still be full code at this time. (11/20/20) 12/01/2020 Patient had a CODE BLUE last night that resulted him to be transferred to the ICU. Patient responded in bag during resuscitation and achieved ROSC. Placement was placed on the vent. Niece was in the bedroom as this was the only patient's family member that had any any close contact or meaningful discussion about his quality of life or CODE STATUS. At this point niece would like to keep him full code until she sorts things out, but ultimately deep in her heart she said that she wants to make him DNR. Patient's chart, labs, images were reviewed and discussed with RN By day of discharge, pt was stabilized after the cardiac arrest event. His prognosis is extremely poor. He will be transfer to [facility] for further care. Rest of hospital course was uneventful. Disposition: Disposition/Orders: D/C to Another Facility Activity: Activity: Resume previous activity Diet: Diet: NPO Medications: Home Meds Active Scripts Amiodarone Hcl (AMIODARONE HCL) 200 Mg Tablet, 400 MG PO DAILY for arrhythmia for 90 Days, #180 TAB Prov:ADITYA THOMASONL K III DO 09/18/20 Clopidogrel Bisulfate (CLOPIDOGREL) 75 Mg Tablet, 75 MG PO DAILYWBKFT for cad for 90 Days, #90 TAB Prov:CASTLENIAL K III DO 09/18/20 Insulin Lispro (HUMALOG) 100 Unit/1 Ml Insuln.pen, 0 UNITS SQ TIDWMEALS for GLUCOSE CONTROL for 30 Days, #1 EACH Prov:KLAUDIA HAY MD 08/06/18 Metoprolol Tartrate (METOPROLOL TARTRATE) 25 Mg Tablet, 25 MG PO BID for 30 Days, #60 TAB Prov:ANGELA DAWSON MD 07/22/17 Reported Medications Furosemide (FUROSEMIDE) 40 Mg Tablet, 1 TAB PO BID for CHF 09/13/20 Losartan/Hydrochlorothiazide (LOSARTAN-HCTZ 100-12.5 MG TAB) 1 Each Tablet, 1 TAB PO DAILY for HTN 09/13/20 Atorvastatin Calcium (ATORVASTATIN CALCIUM) 40 Mg Tablet, 1 TAB PO DAILY for HLD 09/13/20 Diltiazem HCl (Diltiazem 24Hr Cd) 240 Mg Cap.er.24h, 1 CAP PO DAILY for A Fib 09/13/20 Famotidine (PEPCID) 20 Mg Tablet, 20 MG PO BID 05/17/13 Discontinued Reported Medications Glimepiride (GLIMEPIRIDE) 4 Mg Tablet, 1 TAB PO DAILY for DM 09/13/20 Budesonide/Formoterol Fumarate (SYMBICORT 160-4.5 MCG INHALER) 10.2 Gm Hfa.aer.ad, 1 PUFF INH DAILY for COPD 09/13/20 Nitrofurantoin Monohyd/M-Cryst (NITROFURANTOIN MONO-MCR 100 MG) 100 Mg Capsule, 1 CAP PO BID for HTN 09/13/20 Betamethasone Valerate (BETAMETHASONE VALERATE) 60 Ml Lotion, 1 TP QHS for dermatitis 09/13/20 Nystatin (NYSTOP) 60 Gm Powder, 1 MARCELLE TP BID for Reddened folds 09/13/20 Discontinued Scripts Aspirin (ASPIRIN) 325 Mg Tablet, 325 MG PO DAILYWBKFT for 30 Days, #30 TAB Prov:ANGELA DAWSON MD 07/22/17 [Warfarin Per Pharmacy] 1 EACH EACH No Conflict Check, 1 EACH MC PRN DAILY PRN for SEE COMMENTS for 30 Days, #30 Prov:MANNY THOMASON K III DO 09/18/20 Ipratropium/Albuterol Sulfate (DUONEB 0.5-3(2.5) MG/3 ML) 3 Ml Ampul.neb, 3 ML NEB RTQID for COPD for 30 Days, #120 EACH Prov:KLAUDIA HAY MD 08/06/18 Montelukast Sodium (MONTELUKAST SODIUM TABLET ) 10 Mg Tablet, 10 MG PO QHS, #30 TAB Prov:ANGELA DAWSON MD 07/22/17 Gabapentin (GABAPENTIN) 600 Mg Tablet, 600 MG PO BID for 30 Days, #60 TAB Prov:ANGELA DAWSON MD 07/22/17 Scheduled Amiodarone Hcl (Amiodarone Hcl), 400 MG PO DAILY Atorvastatin Calcium (Atorvastatin Calcium), 1 TAB PO DAILY, (Reported) Clopidogrel Bisulfate (Clopidogrel), 75 MG PO DAILYWBKFT Diltiazem HCl (Diltiazem 24Hr Cd), 1 CAP PO DAILY, (Reported) Famotidine (Pepcid), 20 MG PO BID, (Reported) Furosemide (Furosemide), 1 TAB PO BID, (Reported) Insulin Lispro (Humalog), 0 UNITS SQ TIDWMEALS Losartan/Hydrochlorothiazide (Losartan-Hctz 100-12.5 Mg Tab), 1 TAB PO DAILY, (Reported) Metoprolol Tartrate (Metoprolol Tartrate), 25 MG PO BID Discontinued Medications Aspirin (Aspirin), 325 MG PO DAILYWBKFT Betamethasone Valerate (Betamethasone Valerate), 1 TP QHS, (Reported) Budesonide/Formoterol Fumarate (Symbicort 160-4.5 Mcg Inhaler), 1 PUFF INH DAILY, (Reported) Gabapentin (Gabapentin), 600 MG PO BID Glimepiride (Glimepiride), 1 TAB PO DAILY, (Reported) Ipratropium/Albuterol Sulfate (Duoneb 0.5-3(2.5) Mg/3 Ml), 3 ML NEB RTQID Montelukast Sodium (Montelukast Sodium Tablet ), 10 MG PO QHS Nitrofurantoin Monohyd/M-Cryst (Nitrofurantoin Bennett-Mcr 100 Mg), 1 CAP PO BID, (Reported) Nystatin (Nystop), 1 MARCELLE TP BID, (Reported) [Warfarin Per Pharmacy], 1 EACH MC PRN DAILY PRN for SEE COMMENTS Total Time: Total Time: Total time spent was 40 minutes in preparing scripts and discharge planning with SW and RN Patient seen and examined on day of Discharge. Justicifation of Admission Dx: Justifications for Admission: Justification of Admission Dx: Yes CHF: Cardiac Arrhythmias FUAD CUTLER MD Dec 04, 2020 21:02
[2020-12-05] MEDS ORDERED: WARFARIN 2 MG TABLET. PO SCH (16:00)
== END 2020-12-02 15:30 | DRG 4 ==
LOC: ER 09:26 → ED HOLD 12:13 → 1 WEST ICU 15:28 → 6 SOUTH 10-19 15:09 → 1 WEST ICU 12-01 02:35
PROVIDERS: ADMIT Internal Medicine; ATTEND Internal Medicine
PROC: 5A1955Z Respiratory Ventilation, Greater than 96 Consecutive Hours (ICD-10-PCS; principal; 2020-09-22)
PROC: 0BH17EZ Insertion of Endotracheal Airway into Trachea, Via Natural or Artificial Opening (ICD-10-PCS; 2020-09-22)
PROC: 30233N1 Transfusion of Nonautologous Red Blood Cells into Peripheral Vein, Percutaneous Approach (ICD-10-PCS; 2020-10-02)
PROC: 0D9630Z Drainage of Stomach with Drainage Device, Percutaneous Approach (ICD-10-PCS; 2020-10-18)
PROC: 0DH64UZ Insertion of Feeding Device into Stomach, Percutaneous Endoscopic Approach (ICD-10-PCS; 2020-10-18)
PROC: 5A09557 Assistance with Respiratory Ventilation, Greater than 96 Consecutive Hours, Continuous Positive Airway Pressure (ICD-10-PCS; 2020-10-19)
PROC: 02HV33Z Insertion of Infusion Device into Superior Vena Cava, Percutaneous Approach (ICD-10-PCS; 2020-10-26)
PROC: B548ZZA Ultrasonography of Superior Vena Cava, Guidance (ICD-10-PCS; 2020-10-26)
PROC: 0B110F4 Bypass Trachea to Cutaneous with Tracheostomy Device, Open Approach (ICD-10-PCS; 2020-11-05)
PROC: 5A12012 Performance of Cardiac Output, Single, Manual (ICD-10-PCS; 2020-11-29)
DX: A41.9 Sepsis, unspecified organism (principal); J96.00 Acute respiratory failure, unspecified whether with hypoxia or hypercapnia; E43 Unspecified severe protein-calorie malnutrition; G93.41 Metabolic encephalopathy; I21.4 Non-ST elevation (NSTEMI) myocardial infarction; I46.9 Cardiac arrest, cause unspecified; I50.43 Acute on chronic combined systolic (congestive) and diastolic (congestive) heart failure; J96.21 Acute and chronic respiratory failure with hypoxia; R65.21 Severe sepsis with septic shock; J18.9 Pneumonia, unspecified organism; D62 Acute posthemorrhagic anemia; D68.9 Coagulation defect, unspecified; G62.81 Critical illness polyneuropathy; G93.1 Anoxic brain damage, not elsewhere classified; I13.0 Hypertensive heart and chronic kidney disease with heart failure and stage 1 through stage 4 chronic kidney disease, or unspecified chronic kidney disease; I69.354 Hemiplegia and hemiparesis following cerebral infarction affecting left non-dominant side; J44.0 Chronic obstructive pulmonary disease with (acute) lower respiratory infection; J98.11 Atelectasis; N13.4 Hydroureter; N17.9 Acute kidney failure, unspecified; R17 Unspecified jaundice; D75.82 Heparin induced thrombocytopenia (HIT); E11.22 Type 2 diabetes mellitus with diabetic chronic kidney disease; E11.51 Type 2 diabetes mellitus with diabetic peripheral angiopathy without gangrene; E11.649 Type 2 diabetes mellitus with hypoglycemia without coma; E66.01 Morbid (severe) obesity due to excess calories; E78.00 Pure hypercholesterolemia, unspecified; E78.5 Hyperlipidemia, unspecified; F17.200 Nicotine dependence, unspecified, uncomplicated; I25.10 Atherosclerotic heart disease of native coronary artery without angina pectoris; I25.2 Old myocardial infarction; I25.5 Ischemic cardiomyopathy; I48.0 Paroxysmal atrial fibrillation; I71.4 Abdominal aortic aneurysm, without rupture; I72.4 Aneurysm of artery of lower extremity; K59.00 Constipation, unspecified; R13.10 Dysphagia, unspecified; N18.9 Chronic kidney disease, unspecified; Y95 Nosocomial condition; Z20.822 Contact with and (suspected) exposure to COVID-19; Z60.9 Problem related to social environment, unspecified; Z63.8 Other specified problems related to primary support group; Z66 Do not resuscitate; Z79.01 Long term (current) use of anticoagulants; Z79.02 Long term (current) use of antithrombotics/antiplatelets; Z79.82 Long term (current) use of aspirin; Z82.49 Family history of ischemic heart disease and other diseases of the circulatory system; Z95.5 Presence of coronary angioplasty implant and graft; E66.9 Obesity, unspecified; G89.29 Other chronic pain; M19.90 Unspecified osteoarthritis, unspecified site; Z88.0 Allergy status to penicillin; Z88.8 Allergy status to other drugs, medicaments and biological substances; Z68.31 Body mass index [BMI] 31.0-31.9, adult
CPT/HCPCS: 31500; 31720; 36415; 36430; 36556; 36600; 70450; 70551; 71045; 71260; 74018; 74177; 76937; 80048; 80053; 82274; 82805; 82962; 83605; 83735; 84100; 84484; 85007; 85025; 85027; 85049; 85610; 85730; 86140; 86850; 86900; 86901; 86920; 87426; 93005; 94002; 94003; 94660; 94760; A4213; A4357; A4452; A4930; A6219; A6402; A7521; C1892; C9113; J0171; J0461; J0692; J0883; J1815; J1940; J2370; J2704; J2997; J3010; J3480; J3490; J7030; J7040; J7042; J7060; J7120; P9016; P9046; Q9967; U0003; U0005; 99285-25; G0378; J3246